=== PATIENT | female | born 1985 | race Caucasian/White ===

== ENCOUNTER 2016-04-30 13:29 | Inpatient (IN) | payer OTHER ==
[2016-04-30] MEDS ORDERED: SODIUM CHLORIDE 0.9% 1,000 ML IV STA (14:01)
[2016-04-30] MEDS ORDERED: MORPHINE SULFATE 4 MG/ML SYRINGE IVP STA (14:24)
[2016-04-30 14:29] LABS: Anisocytosis Slight; Basophils # (A) 0.1 k/uL (0-0.2); Basophils % (A) 1 %; CH 29.2; CHCM 32.8; Eosinophils # (A) 0.3 k/uL (0-0.7); Eosinophils % (A) 4 %; HCT 29.8 % (34.0-46.0); HDW 2.75; HGB 9.7 gm/dL (11.4-16.0); Luc # (Auto) 0.15; Luc % (Auto) 2; Lymphocytes # (A) 4.1 k/uL (1.0-4.8); Lymphocytes % (A) 48 %; MCHC 32.5 g/dL (31.0-37.0); MCV 89.3 fL (80.0-100.0); Mean Platelet Volume 7.2; Monocytes # (A) 0.6 k/uL (0-1.0); Monocytes % (A) 7 %; Neutrophils # (A) 3.3 k/uL (1.3-7.7); Neutrophils % (A) 39 %; RBC 3.34 m/uL (3.80-5.40); RDW 16.3 % (11.5-15.5); WBC 8.4 k/uL (3.8-10.6); WBC (Perox) 7.94
[2016-04-30 14:32] LABS: Appearance,Urine Clear (Clear); Bilirubin,Urine Negative (Negative); Glucose,Urine (UA) Negative (Negative); Ketones,Urine Negative (Negative); Leukocyte Esterase,Urine Negative (Negative); Nitrite,Urine Negative (Negative); Protein,Urine Negative (Negative); Specific Gravity,Urine 1.015 (1.001-1.035); UA Billing (MACRO vs. MICRO) CHEM; Urobilinogen,Urine <2.0 mg/dL (<2.0)
[2016-04-30 14:43] LABS: ALT 24 U/L (9-52); AST 11 U/L (14-36); Alkaline Phosphatase 62 U/L (38-126); Amylase 80 U/L (30-110); Anion Gap 9 mmol/L; Blood Urea Nitrogen 17 mg/dL (7-17); Carbon Dioxide 16 mmol/L (22-30); Chloride 118 mmol/L (98-107); Glucose 63 mg/dL (74-99); Non-African American GFR(MDRD) >60 (>60 ml/min/1.73 sqM); Sodium 143 mmol/L (137-145); Total Bilirubin 0.2 mg/dL (0.2-1.3); Total Protein 4.6 g/dL (6.3-8.2)
[2016-04-30 14:53] LABS: Calcium 5.8 mg/dL (8.4-10.2)
[2016-04-30 14:54] LABS: Potassium 2.9 mmol/L (3.5-5.1)
[2016-04-30] MEDS ORDERED: CALCIUM CARBONATE 500 MG CHEWABLE PO STA (15:24)
--- NOTE | 2016-04-30 15:24 | ED ---
Abdominal Pain HPI - General Chief Complaint: Abdominal Pain Stated Complaint: Abd Pain Time Seen by Provider: 04/30/16 14:00 Source: patient, EMS, RN notes reviewed Mode of arrival: EMS Limitations: no limitations - History of Present Illness Initial Comments: 31-year-old female presents emergency Department chief complaint abdominal pain , rectal bleeding, nausea. Patient states she has been diagnosed at age 15 of ulcerative colitis/Crohn's. Patient sees Dr. Chaparro. She's had increased rectal bleeding. She states she is unable to eat due to nausea and pain. Patient states that she's been nasal call but states that her insurance does not cover it. She states she takes an antacid at this time. Patient denies any dysuria hematuria. Patient denies any fever, chills. Denies any chance . Patient states she states that she feels very fatigued. - Related Data Home Medications Medication Instructions Recorded Confirmed Sertraline HCl [Zoloft] 200 mg PO DAILY 09/24/13 04/30/16 ALPRAZolam [Xanax] 2 mg PO TID PRN 08/02/14 04/30/16 Levothyroxine Sodium [Synthroid] 125 mcg PO QAM 06/05/15 04/30/16 Lisinopril-Hctz 20-25 mg 1 tab PO BID 12/26/15 04/30/16 [Zestoretic 20-25] Ranitidine HCl [Zantac] 150 mg PO BID 12/26/15 04/30/16 Simvastatin [Zocor] 20 mg PO HS 12/26/15 04/30/16 Beclomethasone Dipropionate [Qvar 2 puff INHALATION RT-BID 04/30/16 04/30/16 80 mcg] Divalproex Sodium [Depakote] 1,000 mg PO BID 04/30/16 04/30/16 Gabapentin 600 mg PO TID 04/30/16 04/30/16 Medroxyprogesterone Acetate 150 mg IM Q90D 04/30/16 04/30/16 [Depo-Provera] Methocarbamol [Robaxin-750] 750 mg PO TID 04/30/16 04/30/16 Omeprazole 20 mg PO DAILY 04/30/16 04/30/16 Prochlorperazine [Compazine] 10 mg PO Q8H 04/30/16 04/30/16 QUEtiapine [SEROquel] 100 mg PO QAM 04/30/16 04/30/16 QUEtiapine [SEROquel] 400 mg PO HS 04/30/16 04/30/16 Allergies Allergy/AdvReac Type Severity Reaction Status Date / Time acetaminophen Allergy Unknown Verified 04/30/16 14:07 azithromycin [From Zithromax] Allergy Unknown Verified 04/30/16 14:07 Childhood baclofen Allergy Rash/Hives Verified 04/30/16 14:07 butorphanol tartrate Allergy Rash/Hives Verified 04/30/16 14:07 [From Stadol] dicyclomine [From Bentyl] Allergy Unknown Verified 04/30/16 14:07 dicyclomine HCl [From Bentyl] Allergy Hallucinati Verified 04/30/16 14:07 ons granisetron HCl [From Kytril] Allergy Anaphylaxis Verified 04/30/16 14:07 ketorolac tromethamine Allergy Rash/Hives Verified 04/30/16 14:07 [From Toradol] methocarbamol [From Robaxin] Allergy Unknown Verified 04/30/16 14:07 morphine Allergy Rash/Hives Verified 04/30/16 14:07 sulfamethoxazole Allergy Rash/Hives Verified 04/30/16 14:07 [From Bactrim] trimethoprim [From Bactrim] Allergy Rash/Hives Verified 04/30/16 14:07 codeine AdvReac Vomiting & Verified 04/30/16 14:07 Headache meperidine HCl [From Demerol] AdvReac Swelling Verified 04/30/16 14:07 methylprednisolone AdvReac Vomiting & Verified 04/30/16 14:07 [From Medrol] Headache Review of Systems ROS Statement: Those systems with pertinent positive or pertinent negative responses have been documented in the HPI. ROS Other: All systems not noted in ROS Statement are negative. Past Medical History Past Medical History: Asthma, Fibromyalgia, GERD/Reflux, Thyroid Disorder Additional Past Medical History / Comment(s): crohns disease, diverticulosis, ibs, carpal tunnel, anemia, chronic back pain , migraines, pinch nervers History of Any Multi-Drug Resistant Organisms: None Reported Past Surgical History: Adenoidectomy, Appendectomy, Cholecystectomy, Tonsillectomy Additional Past Surgical History / Comment(s): crohns, ulcerative colitis, migraines, carpal tunnel, pancreatitis, cyatica, right ankle Past Anesthesia/Blood Transfusion Reactions: No Reported Reaction Past Psychological History: Anxiety, Depression Additional Psychological History / Comment(s): om medica Smoking Status: Current every day smoker Past Alcohol Use History: None Reported, Rare Past Drug Use History: None Reported - Past Family History Mother Family Medical History: Thyroid Disorder Additional Family Medical History / Comment(s): Extensive tattoos throughout body General Exam Limitations: no limitations General appearance: alert, in no apparent distress Head exam: Present: atraumatic, normocephalic, normal inspection Respiratory exam: Present: normal lung sounds bilaterally. Absent: respiratory distress, wheezes, rales, rhonchi, stridor Cardiovascular Exam: Present: regular rate, normal rhythm, normal heart sounds. Absent: systolic murmur, diastolic murmur, rubs, gallop, clicks GI/Abdominal exam: Present: soft, tenderness (Diffuse mild to moderate with greatest in his mid abdomen ), normal bowel sounds. Absent: distended, guarding , rebound, rigid Back exam: Absent: CVA tenderness (R), CVA tenderness (L) Course Vital Signs 04/30/16 13:32 Temperature 97.5 F L Pulse Rate 92 Respiratory 20 Rate Blood Pressure 128/86 O2 Sat by Pulse 96 Oximetry Medical Decision Making - Medical Decision Making 4-year-old female presented for abdominal pain and rectal bleeding. Patient has had a drop her hemoglobin and is anemic. Patient is hypokalemic edition. Patient corrected calcium is 7.4 patient be brought in for IV hydration, GI consult for rectal bleeding exacerbation of Crohn's. - Lab Data Result diagrams: 04/30/16 13:50 04/30/16 13:50 Lab Results 04/30/16 04/30/16 04/30/16 Range/Units 13:50 13:50 14:15 WBC 8.4 (3.8-10.6) k/uL RBC 3.34 L (3.80-5.40) m/uL Hgb 9.7 L (11.4-16.0) gm/dL Hct 29.8 L (34.0-46.0) % MCV 89.3 (80.0-100.0) fL MCH 29.0 (25.0-35.0) pg MCHC 32.5 (31.0-37.0) g/dL RDW 16.3 H (11.5-15.5) % Plt Count 270 (150-450) k/uL Neutrophils % 39 % Lymphocytes % 48 % Monocytes % 7 % Eosinophils % 4 % Basophils % 1 % Neutrophils # 3.3 (1.3-7.7) k/uL Lymphocytes # 4.1 (1.0-4.8) k/uL Monocytes # 0.6 (0-1.0) k/uL Eosinophils # 0.3 (0-0.7) k/uL Basophils # 0.1 (0-0.2) k/uL Anisocytosis Slight Sodium 143 (137-145) mmol/L Potassium 2.9 L* (3.5-5.1) mmol/L Chloride 118 H (98-107) mmol/L Carbon Dioxide 16 L (22-30) mmol/L Anion Gap 9 mmol/L BUN 17 (7-17) mg/dL Creatinine 0.68 (0.52-1.04) mg/dL Est GFR (MDRD) Af Amer >60 (>60 ml/min/1.73 sqM) Est GFR (MDRD) Non-Af >60 (>60 ml/min/1.73 sqM) Glucose 63 L (74-99) mg/dL Calcium 5.8 L* (8.4-10.2) mg/dL Total Bilirubin 0.2 (0.2-1.3) mg/dL AST 11 L (14-36) U/L ALT 24 (9-52) U/L Alkaline Phosphatase 62 (38-126) U/L Total Protein 4.6 L (6.3-8.2) g/dL Albumin 2.2 L (3.5-5.0) g/dL Amylase 80 (30-110) U/L Lipase 82 (23-300) U/L Urine Color Urine Appearance (Clear) Urine pH (5.0-8.0) Ur Specific [place] (1.001-1.035) Urine Protein (Negative) Urine Glucose (UA) (Negative) Urine Ketones (Negative) Urine Blood (Negative) Urine Nitrate (Negative) Urine Bilirubin (Negative) Urine Urobilinogen (<2.0) mg/dL Ur Leukocyte Esterase (Negative) Urine HCG, Qual Not Detected (Not Detectd) 04/30/16 Range/Units 14:15 WBC (3.8-10.6) k/uL RBC (3.80-5.40) m/uL Hgb (11.4-16.0) gm/dL Hct (34.0-46.0) % MCV (80.0-100.0) fL MCH (25.0-35.0) pg MCHC (31.0-37.0) g/dL RDW (11.5-15.5) % Plt Count (150-450) k/uL Neutrophils % % Lymphocytes % % Monocytes % % Eosinophils % % Basophils % % Neutrophils # (1.3-7.7) k/uL Lymphocytes # (1.0-4.8) k/uL Monocytes # (0-1.0) k/uL Eosinophils # (0-0.7) k/uL Basophils # (0-0.2) k/uL Anisocytosis Sodium (137-145) mmol/L Potassium (3.5-5.1) mmol/L Chloride (98-107) mmol/L Carbon Dioxide (22-30) mmol/L Anion Gap mmol/L BUN (7-17) mg/dL Creatinine (0.52-1.04) mg/dL Est GFR (MDRD) Af Amer (>60 ml/min/1.73 sqM) Est GFR (MDRD) Non-Af (>60 ml/min/1.73 sqM) Glucose (74-99) mg/dL Calcium (8.4-10.2) mg/dL Total Bilirubin (0.2-1.3) mg/dL AST (14-36) U/L ALT (9-52) U/L Alkaline Phosphatase (38-126) U/L Total Protein (6.3-8.2) g/dL Albumin (3.5-5.0) g/dL Amylase (30-110) U/L Lipase (23-300) U/L Urine Color Light Yellow Urine Appearance Clear (Clear) Urine pH 6.0 (5.0-8.0) Ur Specific [place] 1.015 (1.001-1.035) Urine Protein Negative (Negative) Urine Glucose (UA) Negative (Negative) Urine Ketones Negative (Negative) Urine Blood Negative (Negative) Urine Nitrate Negative (Negative) Urine Bilirubin Negative (Negative) Urine Urobilinogen <2.0 (<2.0) mg/dL Ur Leukocyte Esterase Negative (Negative) Urine HCG, Qual (Not Detectd) Disposition Clinical Impression: Exacerbation of Crohn's disease, Rectal bleeding, Anemia, Dehydration, Hypokalemia, Hypocalcemia Disposition: ADMITTED IP TO THIS HOSP Referrals: Joan Meeks MD [Primary Care Provider] - 1-2 days
[2016-04-30] MEDS ORDERED: NALOXONE 0.4 MG/ML 1 ML VIAL IV PRN (15:25)
[2016-04-30] MEDS ORDERED: ONDANSETRON 4 MG/2 ML VIAL IVP PRN (15:25)
[2016-04-30] MEDS ORDERED: SODIUM CHLORIDE 0.9% 1,000 ML IV SCH (15:30)
[2016-04-30] MEDS ORDERED: POTASSIUM CHLORIDE ER 20 MEQ TAB.ER PO STA (15:37)
[2016-04-30] MEDS: HYDROmorphone 1 MG/ML 1 ML SYRINGE IV PRN ×3 (16:00→22:04)
--- NOTE | 2016-04-30 16:11 | XR ---
EXAMINATION TYPE: XR KUB DATE OF EXAM: 04/30/2016 3:55 PM COMPARISON: 03/13/2016 INDICATION: Abdomen pain nausea vomiting diverticulitis and Crohn's TECHNIQUE: Single view abdomen supine and upright views FINDINGS: There is a normal bowel gas pattern. No free air is under the diaphragm. No differential air-fluid le vels are present. Some fecal debris is within the colon. Psoas margins are normal. Cholecystectomy clips are present. No organomegaly is present. IMPRESSION: 1. Unremarkable Abdomen
[2016-04-30] MEDS ORDERED: NON-FORMULARY DRUG (Medroxyprogesterone Acetate [Depo-Provera] 150 MG) IM SCH (16:45)
[2016-04-30] MEDS: ALPRAZolam 0.5 MG TAB PO PRN (17:14)
[2016-04-30] MEDS: LACTATED RINGERS 1,000 ML IV SCH (17:50)
[2016-04-30] MEDS: predniSONE 20 MG TAB PO SCH (18:17)
[2016-04-30 20:14] LABS: Anisocytosis Slight; Basophils % (A) 0 %; CH 29.2; CHCM 31.9; Eosinophils # (A) 0.3 k/uL (0-0.7); Eosinophils % (A) 4 %; HCT 30.4 % (34.0-46.0); HGB 9.8 gm/dL (11.4-16.0); Luc % (Auto) 2; Lymphocytes # (A) 3.5 k/uL (1.0-4.8); Lymphocytes % (A) 40 %; MCH 29.6 pg (25.0-35.0); MCHC 32.2 g/dL (31.0-37.0); MCV 91.8 fL (80.0-100.0); Mean Platelet Volume 7.5; Monocytes # (A) 0.5 k/uL (0-1.0); Monocytes % (A) 5 %; Neutrophils # (A) 4.3 k/uL (1.3-7.7); Neutrophils % (A) 49 %; RBC 3.32 m/uL (3.80-5.40); RDW 16.3 % (11.5-15.5); WBC 8.9 k/uL (3.8-10.6); WBC (Perox) 9.47
[2016-04-30] MEDS: BUDESONIDE 1 MG/2 ML NEBU INHALATION SCH (20:43)
[2016-04-30 20:56] VITALS: BMI 35.3
[2016-04-30] MEDS: LISINOPRIL-HCTZ 20-25 MG 1 EACH TAB PO SCH (20:57)
[2016-04-30] MEDS: DIVALPROEX 500 MG TABLET.DR PO SCH (20:57)
[2016-04-30] MEDS: GABAPENTIN 300 MG CAP PO SCH (20:57)
[2016-04-30] MEDS ORDERED: QUEtiapine 400 MG TAB PO SCH (21:00)
[2016-04-30] MEDS ORDERED: ATORVASTATIN 10 MG TAB PO SCH (21:00)
[2016-04-30] MEDS ORDERED: ZOLPIDEM 10 MG TAB PO SCH (21:00)
[2016-04-30] MEDS ORDERED: predniSONE 20 MG TAB PO SCH (21:00)
[2016-04-30] MEDS ORDERED: METHOCARBAMOL 750 MG TAB PO SCH (22:00)
[2016-05-01 00:08] LABS: Anisocytosis Slight; Basophils % (A) 0 %; CH 29.1; CHCM 32.4; Eosinophils # (A) 0.1 k/uL (0-0.7); Eosinophils % (A) 1 %; HCT 30.6 % (34.0-46.0); HDW 2.78; HGB 10.1 gm/dL (11.4-16.0); Luc # (Auto) 0.11; Luc % (Auto) 1; Lymphocytes # (A) 1.8 k/uL (1.0-4.8); Lymphocytes % (A) 20 %; MCH 29.8 pg (25.0-35.0); MCHC 33.1 g/dL (31.0-37.0); Mean Platelet Volume 7.9; Monocytes # (A) 0.3 k/uL (0-1.0); Monocytes % (A) 3 %; Neutrophils # (A) 6.6 k/uL (1.3-7.7); Neutrophils % (A) 74 %; RDW 16.3 % (11.5-15.5); WBC 8.9 k/uL (3.8-10.6)
[2016-05-01] MEDS: HYDROmorphone 1 MG/ML 1 ML SYRINGE IV PRN ×5 (01:09→14:54)
[2016-05-01] MEDS: LACTATED RINGERS 1,000 ML IV SCH (03:19)
[2016-05-01 03:28] VITALS: BP 120/70
[2016-05-01] MEDS ORDERED: LEVOTHYROXINE 125 MCG TAB PO SCH (06:30)
--- NOTE | 2016-05-01 07:31 | HP ---
DATE OF ADMISSION: Patient is a 31-year-old ( ) with known history of Crohn disease, which was diagnosed when she was 15, came in with complaints of abdominal pain, diffuse, mostly in the upper quadrants which is burning and sharp in nature and crampy in the lower quadrants. Patient is complaining of 10/10 pain along with rectal bleeding. The patient used to use Asacol or Pentasa, one of the sulfa-based immunosuppressant medications for Crohn disease or ulcerative colitis. Follows with Dr. Stiles, ran out of these medications because of the change of insurance stopped covering these medications because of which she says she has not been taking these medications. She is now complaining of nausea. Denied any vomiting. Patient denied any dysuria or hematuria. Patient says she feels tired and fatigued and there was a concern about exacerbation of Crohn's because of which patient is admitted and starting on 20 mg p.o. b.i.d. of steroids and obtaining an ESR and CRP and Gastroenterology will be consulted. Electrolyte abnormalities including low potassium will be corrected. ROS: All other systems were reviewed and were negative. Home medications include: 1. Sertraline. 2. Alprazolam. 3. Levothyroxine. 4. Lisinopril hydrochlorothiazide. 5. Ranitidine. 6. Simvastatin. 7. Beclomethasone. 8. Depakote. 9. Medroxyprogesterone. 10. Methocarbamol. 11. Omeprazole. 12. Compazine. 13. Seroquel. ALLERGIES: Patient has multiple allergies including ACETAMINOPHEN, AZITHROMYCIN, BACLOFEN, BUTORPHANOL, DICYCLOMINE, KETOROLAC, MORPHINE, BACTRIM, CODEINE and MEPERIDINE, although patient is able to tolerate Dilaudid in spite of her multiple allergies to other opiates. Past medical history is significant for asthma, fibromyalgia, gastroesophageal reflux disease, Crohn disease, hypothyroidism, migraines, adenoidectomy, appendectomy, cholecystectomy, tonsillectomy, anxiety, depression. Patient continues to smoke 1 pack per day. Denied any alcohol abuse or drug abuse. FAMILY HISTORY: Mother had hypothyroidism. PHYSICAL EXAMINATION: VITAL SIGNS: Temperature 98.1 pulse of 86, respiratory rate of 24, blood pressure is 90/52, saturating at 96% on room air. PHYSICAL EXAMINATION: GENERAL: The patient is alert and oriented x3, not in any acute distress. Well developed, well nourished. HEENT: Pupils are round and equally reacting to light. EOMI. No scleral icterus. No conjunctival pallor. Normocephalic, atraumatic. No pharyngeal erythema. No thyromegaly. CARDIOVASCULAR: S1 and S2 present. No murmurs, rubs, or gallops. PULMONARY: Chest is clear to auscultation, no wheezing or crackles. ABDOMEN: Minimal subjective tenderness was appreciated, although patient's abdomen is soft. MUSCULOSKELETAL: No joint swelling or deformity. EXTREMITIES: No cyanosis, clubbing, or pedal edema. NEUROLOGICAL: Gross neurological examination did not reveal any focal deficits. SKIN: No rashes. LABORATORY DATA: CBC, CMP are abnormal for low hemoglobin of 9.8, appears to have normocytic anemia, anemia of chronic disease. Potassium of 2.9, chloride of 118, because of which her IV fluids were changed lactated Ringers. Patient ( ) anion gap, low bicarbonate of 16, although patient ( ) have any anion gap low bicarbonate can be from prerenal ( ) although patient denied significant diarrhea except for occasional GI bleed, small edith red blood and lipase is essentially negative is negative. UA is negative. CRP and ESR will be obtained. Abdominal x-ray was done. Patient has multiple CT in the past. Abdominal x-ray was essentially within normal limits. ASSESSMENT AND PLAN: 1. Abdominal pain, consideration is Crohn's exacerbation. ESR and CRP will be obtained. The patient definitely has narcotic seeking behavior. If ESR and CRP are normal, the change of this being Crohn's exacerbation is low anyways. Patient will be started on systemic steroids 20 b.i.d. of prednisone for Crohn's and Gastroenterology will be consulted. 2. History of migraine headaches. Continue with home medications. 3. Chronic pain syndrome. 4. Depression. 5. Continued nicotine use. Counseling was provided. 6. Hypertension. The patient's blood pressures are low because of which we will hold off on PIPO inhibitor at this time. 7. History of gastrointestinal bleed as per the patient. Patient's RDW is close to normal, 16.3, not sure patient actually had a gastrointestinal bleed or not. Stool for occult blood is not an accurate test. Will continue to monitor her. 8. Hypothyroidism. PLAN: Systemic steroids, IV fluids in the form of lactated Ringer's because of elevated chloride, replace potassium. Repeat electrolytes and basic metabolic profile tomorrow. Gastroenterology consult. Patient's primary care physician is Dr. Joan Meeks. I have very high suspicion of malingering or narcotic seeking behavior in her. MTDD
[2016-05-01] MEDS: BUDESONIDE 1 MG/2 ML NEBU INHALATION SCH (07:59)
[2016-05-01 08:23] VITALS: PULSE 81; RESP 20; TEMP 97.7
[2016-05-01] MEDS: ALPRAZolam 0.5 MG TAB PO PRN ×2 (08:55→14:56)
[2016-05-01] MEDS ORDERED: NON-FORMULARY DRUG (Omeprazole [Omeprazole] 20 MG) PO SCH (09:00)
[2016-05-01] MEDS ORDERED: QUEtiapine 100 MG TAB PO SCH (09:00)
[2016-05-01] MEDS ORDERED: PANTOPRAZOLE 40 MG/10 ML VIAL IV SCH (09:00)
[2016-05-01] MEDS ORDERED: SERTRALINE 100 MG TAB PO SCH (09:00)
[2016-05-01] MEDS: DIVALPROEX 500 MG TABLET.DR PO SCH (09:02)
[2016-05-01] MEDS: LISINOPRIL-HCTZ 20-25 MG 1 EACH TAB PO SCH (09:03)
[2016-05-01] MEDS: GABAPENTIN 300 MG CAP PO SCH (09:03)
[2016-05-01] MEDS: predniSONE 20 MG TAB PO SCH (09:03)
[2016-05-01 09:04] LABS: ALT 30 U/L (9-52); AST 14 U/L (14-36); Alkaline Phosphatase 66 U/L (38-126); Anion Gap 10 mmol/L; Blood Urea Nitrogen 11 mg/dL (7-17); Carbon Dioxide 24 mmol/L (22-30); Chloride 105 mmol/L (98-107); Glucose 96 mg/dL (74-99); Magnesium 1.7 mg/dL (1.6-2.3); Non-African American GFR(MDRD) >60 (>60 ml/min/1.73 sqM); Phosphorous 4.1 mg/dL (2.5-4.5); Potassium 4.3 mmol/L (3.5-5.1); Sodium 139 mmol/L (137-145); Total Bilirubin 0.5 mg/dL (0.2-1.3); Total Protein 6.4 g/dL (6.3-8.2)
--- NOTE | 2016-05-01 10:36 | P.CONS ---
History of Present Illness - Reason for Consult Consult date: 05/01/16 Exacerbation of Crohn's Requesting physician: Ole Magana - History of Present Illness 31-year-old female with a history of Crohn's ileitis maintained on Asacol/ Entocort and Remicade in the past diagnosed at 15 years of age at [facility] by Dr. Sanders with a past medical history of chronic back pain, fibromyalgia, anxiety, depression, IBS, nicotine cigarette dependency, and hypothyroidism. Presents with intractable abdominal pain that started 6 days ago with loose bowel movements blood tinged. Hemoccult stool positive. One bowel movement in the last 24 hours without blood. CRP and sed rate with within normal limits. KUB unremarkable abdomen. Patient ran out of her Crohn' s medications due to insurance changes. No fever or chills. No emesis just intermittent nausea and abdominal pain. Hemoglobin 10.1. White count 8.9. Potassium 2.9 improved to 4.3 today. Review of Systems Constitutional: Denies fever, chills, sweats, weight gain, or loss. HEENT: Negative for migraines, blurred vision or loss, earaches, drainage, tinnitus, oral mucosal lesions, dysphagia, or odynophagia. CARDIAC: Negative for chest pain, arrhythmias, or palpitation. RESPIRATORY: Nicotine cigarette dependency. Asthma. Negative for shortness of breath, hemoptysis, cough, or sputum production. GI: See HPI for pertinent findings. : Negative for hematuria, urgency, frequency, polyuria, or dysuria. GYNc: Denies possibility of . Negative vaginal discharge. MUSCULOSKELETAL: Fibromyalgia. Chronic back pain. NEUROLOGIC: Seizure disorder. Negative for stroke or TIA. ENDOCRINE: Negative for thyroid problems. SKIN: Negative for rash or itching. PSYCHIATRIC: Depression and anxiety. All systems: negative (See HPI) Past Medical History Past Medical History: Asthma, Fibromyalgia, GERD/Reflux, Seizure Disorder, Thyroid Disorder Additional Past Medical History / Comment(s): crohns disease, diverticulosis, ibs, carpal tunnel, anemia, chronic back pain , migraines, pinched nerves History of Any Multi-Drug Resistant Organisms: None Reported Past Surgical History: Adenoidectomy, Appendectomy, Cholecystectomy, Orthopedic Surgery, Tonsillectomy Additional Past Surgical History / Comment(s): EGD/colonoscopy, right ankle surgery Past Anesthesia/Blood Transfusion Reactions: No Reported Reaction Past Psychological History: Anxiety, Depression Additional Psychological History / Comment(s): on medica Smoking Status: Current every day smoker Past Alcohol Use History: None Reported Past Drug Use History: None Reported - Past Family History Father Family Medical History: Diabetes Mellitus, Hyperlipidemia Mother Family Medical History: Cancer, CVA/TIA, Deep Vein Thrombosis (DVT), Osteoarthritis (OA), Thyroid Disorder Additional Family Medical History / Comment(s): Extensive tattoos throughout body Medications and Allergies Home Medications Medication Instructions Recorded Confirmed Type Sertraline HCl [Zoloft] 200 mg PO DAILY 09/24/13 04/30/16 History ALPRAZolam [Xanax] 2 mg PO TID PRN 08/02/14 04/30/16 History Levothyroxine Sodium [Synthroid] 125 mcg PO QAM 06/05/15 04/30/16 History Lisinopril-Hctz 20-25 mg 1 tab PO BID 12/26/15 04/30/16 History [Zestoretic 20-25] Ranitidine HCl [Zantac] 150 mg PO BID 12/26/15 04/30/16 History Simvastatin [Zocor] 20 mg PO HS 12/26/15 04/30/16 History Beclomethasone Dipropionate [Qvar 2 puff INHALATION RT-BID 04/30/16 04/30/16 History 80 mcg] Divalproex Sodium [Depakote] 1,000 mg PO BID 04/30/16 04/30/16 History Gabapentin 600 mg PO TID 04/30/16 04/30/16 History Medroxyprogesterone Acetate 150 mg IM Q90D 04/30/16 04/30/16 History [Depo-Provera] Omeprazole 20 mg PO DAILY 04/30/16 04/30/16 History Prochlorperazine [Compazine] 10 mg PO Q8H 04/30/16 04/30/16 History QUEtiapine [SEROquel] 100 mg PO QAM 04/30/16 04/30/16 History QUEtiapine [SEROquel] 400 mg PO HS 04/30/16 04/30/16 History Zolpidem [Ambien] 10 mg PO HS 04/30/16 04/30/16 History Allergies Allergy/AdvReac Type Severity Reaction Status Date / Time acetaminophen Allergy Unknown Verified 04/30/16 14:07 azithromycin [From Zithromax] Allergy Unknown Verified 04/30/16 14:07 Childhood baclofen Allergy Rash/Hives Verified 04/30/16 14:07 butorphanol tartrate Allergy Rash/Hives Verified 04/30/16 14:07 [From Stadol] dicyclomine [From Bentyl] Allergy Unknown Verified 04/30/16 14:07 dicyclomine HCl [From Bentyl] Allergy Hallucinati Verified 04/30/16 14:07 ons granisetron HCl [From Kytril] Allergy Anaphylaxis Verified 04/30/16 14:07 ketorolac tromethamine Allergy Rash/Hives Verified 04/30/16 14:07 [From Toradol] methocarbamol [From Robaxin] Allergy Unknown Verified 04/30/16 14:07 morphine Allergy Rash/Hives Verified 04/30/16 14:07 sulfamethoxazole Allergy Rash/Hives Verified 04/30/16 14:07 [From Bactrim] trimethoprim [From Bactrim] Allergy Rash/Hives Verified 04/30/16 14:07 codeine AdvReac Vomiting & Verified 04/30/16 14:07 Headache meperidine HCl [From Demerol] AdvReac Swelling Verified 04/30/16 14:07 methylprednisolone AdvReac Vomiting & Verified 04/30/16 14:07 [From Medrol] Headache Physical Exam Vitals: Vital Signs Temp Pulse Pulse Pulse Resp BP BP 05/01/16 07:50 97.7 F 81 20 120/70 05/01/16 03:28 98.0 F 87 18 120/70 04/30/16 20:00 98.1 F 80 24 106/64 04/30/16 16:30 98.3 F 83 20 99/64 04/30/16 16:09 97.7 F 86 16 90/52 Pulse Ox 05/01/16 07:50 100 05/01/16 03:28 99 04/30/16 20:00 96 04/30/16 16:30 97 04/30/16 16:09 97 Intake and Output 04/30/16 05/01/16 05/01/16 22:59 06:59 14:59 Intake Total 980 Output Total 850 1400 Balance 130 -1400 Intake: Oral 980 Output: Urine 850 1400 Other: Voiding Method Toilet Weight 99.2 kg General appearance: The patient is alert, oriented, in no acute distress. HET: Head is normocephalic and atraumatic. Pupils are equal and reactive. Oropharynx is clear without lesions. Neck: Supple without lymphadenopathy. Trachea midline. Heart: S1 S2. Regular rate and rhythm. Lungs: No crackles or wheezes are heard. Abdomen: Soft, very mild diffuse midabdominal tenderness, nondistended with bowel sounds. No peritoneal signs. No palpable organomegaly or masses. Extremities: Normal skin color and turgor. No cyanosis, rash, ulceration, clubbing, or edema. Radial and pedal pulses are 2/4 bilaterally. Neurological: No focal deficits. Strength and sensation are grossly intact. Results CBC & Chem 7: 04/30/16 23:52 05/01/16 08:22 Labs: Abnormal Lab Results - Last 24 Hours (Table) 04/30/16 04/30/16 Range/Units 20:01 23:52 RBC 3.32 L 3.40 L (3.80-5.40) m/uL Hgb 9.8 L 10.1 L (11.4-16.0) gm/dL Hct 30.4 L 30.6 L (34.0-46.0) % RDW 16.3 H 16.3 H (11.5-15.5) % Abdominal x-ray: report reviewed (Reviewed by Dr. Pan) Assessment and Plan (1) Abdominal pain Narrative/Plan: 31-year-old female with a history of long-standing Crohn's ileitis, IBS, fibromyalgia presents with intractable nausea abdominal pain with loose bowel movements and heme positive stool. Currently having on average one bowel movement a day without edith blood. Suspect exacerbation of irritable bowel possible gastroenteritis. Exacerbation of Crohn's ileitis is felt to be less likely but not entirely excluded. Status: Acute (2) History of Crohn's disease Status: Acute Plan: 1. Delzicol/Asacol 800 mg 3 times a day; . 2. Hold steroids at this time. 3. Advance diet. 4. Will follow with you. Thank you for this kind referral and the opportunity to participate in the care of your patient. This consultation was discussed with Dr. Pan. The impression and plan of care have been directed as dictated.
[2016-05-01] MEDS ORDERED: MESALAMINE 400 MG CAPSULE.DR PO SCH (10:45)
--- NOTE | 2016-05-01 15:19 | DS ---
DATE OF ADMISSION: 04/30/2016 DATE OF DISCHARGE: Patient is a 31-year-old who came in with complaints of abdominal pain and blood in the stools. All the FOBT is positive. Patient apparently does not appear to have any gastrointestinal bleed. GI evaluated the patient and patient had one normal bowel movement today. Patient's ESR and CRP are essentially within normal limits. I do not really believe patient has any Crohn's colitis at this point of time and electrolytes were corrected and patient will be discharged today. Patient has narcotic seeking behavior. Patient most probably is malingering. She says that she does not have any oxycodone at home and requesting oxycodone script. After extensive counseling about narcotic use, I do not believe oxycodone is appropriate for her. Oxycodone script will not be provided. Patient she says she changed insurance because of which mesalamine is not covered. That is being taken care of by gastroenterology who evaluated the patient. Patient is also on high dose of Xanax, which is not recommended. I will let her primary care physician address that. Patient is being discharged on 400 p.o. t.i.d. of mesalamine. Patient was seen and examined on the day of discharge. Vitals are stable. PHYSICAL EXAMINATION: GENERAL: The patient is alert and oriented x3, not in any acute distress. Well developed, well nourished. HEENT: Pupils are round and equally reacting to light. EOMI. No scleral icterus. No conjunctival pallor. Normocephalic, atraumatic. No pharyngeal erythema. No thyromegaly. CARDIOVASCULAR: S1 and S2 present. No murmurs, rubs, or gallops. PULMONARY: Chest is clear to auscultation, no wheezing or crackles. ABDOMEN: Soft, nontender, nondistended, normoactive bowel sounds. No palpable organomegaly. MUSCULOSKELETAL: No joint swelling or deformity. EXTREMITIES: No cyanosis, clubbing, or pedal edema. NEUROLOGICAL: Gross neurological examination did not reveal any focal deficits. SKIN: No rashes. All the electrolyte abnormalities were corrected. ASSESSMENT AND PLAN: 1. Abdominal pain, most probably secondary to malingering and narcotic seeking behavior. My suspicion is low for Crohn's exacerbation. 2. History of migraine headaches. 3. Chronic pain syndrome. 4. Depression. 5. Hypertension. I do not believe patient will require antihypertensives. Patient's blood pressure was low when she came in. It was 90/52. I extensively counseled regarding the appropriate way to measure the blood pressure at home and take the measurements to her primary care doctor. 6. Gastrointestinal bleed. My suspicion is low. Her hemoglobin is stable. There is no evidence of bleeding here during the hospitalization. My suspicion is she is still malingering regarding this as well. 7. Hypothyroidism. Patient will follow with Dr. Delvin Pan in one week, her primary care physician Dr. Joan Meeks in about 3 to 7 days. 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 Apparently Dr. Louise used to manage her pain. I spent greater than 35 minutes in total discharge process.
[2016-05-02] MEDS ORDERED: BALSALAZIDE DISODIUM 750 MG CAPSULE PO SCH (09:00)
[2016-05-02] MEDS ORDERED: PANTOPRAZOLE 40 MG TABLET PO SCH (09:00)
== END 2016-05-01 15:13 | disposition home or self-care (01) | DRG 392 ==
LOC: EC 13:29 → 6PED 15:28
PROVIDERS: ADMIT Hospitalist; ATTEND Hospitalist
DX: R10.84 Generalized abdominal pain (principal); E83.51 Hypocalcemia; E03.9 Hypothyroidism, unspecified; D64.9 Anemia, unspecified; E86.0 Dehydration; E87.6 Hypokalemia; F17.200 Nicotine dependence, unspecified, uncomplicated; F32.9 Major depressive disorder, single episode, unspecified; G40.909 Epilepsy, unspecified, not intractable, without status epilepticus; G89.4 Chronic pain syndrome; K21.9 Gastro-esophageal reflux disease without esophagitis; M79.7 Fibromyalgia; Z76.5 Malingerer [conscious simulation]; Z79.899 Other long term (current) drug therapy; J45.909 Unspecified asthma, uncomplicated
CPT/HCPCS: 36415; 74000; 80053; 81003; 81025; 82150; 82272; 83690; 83735; 84100; 85025; 85652; 86140; 86850; 86900; 86901; 96361; 96374; 99285

== ENCOUNTER 2016-06-23 21:14 | Emergency (ER) | payer OTHER ==
[2016-06-23 21:58] LABS: Appearance,Urine Clear (Clear); Bilirubin,Urine Negative (Negative); Glucose,Urine (UA) Negative (Negative); Ketones,Urine Negative (Negative); Leukocyte Esterase,Urine Negative (Negative); Nitrite,Urine Negative (Negative); PH, Urine 6.5 (5.0-8.0); Protein,Urine Negative (Negative); Specific Gravity,Urine 1.008 (1.001-1.035); UA Billing (MACRO vs. MICRO) CHEM; Urobilinogen,Urine <2.0 mg/dL (<2.0)
--- NOTE | 2016-06-23 22:28 | ED ---
Abdominal Pain HPI - General Chief Complaint: Abdominal Pain Stated Complaint: Abdominal Pain Time Seen by Provider: 06/23/16 21:18 Source: patient, EMS Mode of arrival: EMS Limitations: no limitations - History of Present Illness Initial Comments: Patient is a 31-year-old woman who presents with left lower quadrant, left upper quadrant and epigastric abdominal pain is been going on for number days. The patient has seen her physician for this and they were concerned of possibility of kidney stone. The patient was told that she had some blood in her urine. In addition, patient did have a soft bowel movement and she thought that she may have seen some blood there. The patient did receive some analgesic from EMS and states that the pain has improved. The patient denies fever or chills. No chest or back pain. No pain to the legs. No vomiting. MD Complaint: abdominal pain -: days(s) Location: LUQ, LLQ, epigastric Radiation: none Migration to: no migration Severity: severe Quality: stabbing, aching Consistency: constant Improves With: nothing Worsens With: nothing Associated Symptoms: hematochezia, hematuria - Related Data Home Medications Medication Instructions Recorded Confirmed Sertraline HCl [Zoloft] 200 mg PO DAILY 09/24/13 06/23/16 ALPRAZolam [Xanax] 2 mg PO TID PRN 08/02/14 06/23/16 Levothyroxine Sodium [Synthroid] 125 mcg PO QAM 06/05/15 06/23/16 Ranitidine HCl [Zantac] 150 mg PO BID 12/26/15 06/23/16 Simvastatin [Zocor] 20 mg PO HS 12/26/15 06/23/16 Divalproex Sodium [Depakote] 1,000 mg PO BID 04/30/16 06/23/16 Gabapentin 600 mg PO TID 04/30/16 06/23/16 Medroxyprogesterone Acetate 150 mg IM Q90D 04/30/16 06/23/16 [Depo-Provera] Omeprazole 20 mg PO DAILY 04/30/16 06/23/16 Prochlorperazine [Compazine] 10 mg PO TID 04/30/16 06/23/16 QUEtiapine [SEROquel] 100 mg PO QAM 04/30/16 06/23/16 QUEtiapine [SEROquel] 400 mg PO HS 04/30/16 06/23/16 Zolpidem [Ambien] 10 mg PO HS 04/30/16 06/23/16 Lisinopril-Hctz 20-25 mg 1 tab PO DAILY 06/23/16 06/23/16 [Zestoretic 20-25] Prevacid Unknown Dose 1 tab PO BID 06/23/16 06/23/16 Propranolol HCl [Inderal] 60 mg PO TID 06/23/16 06/23/16 Allergies Allergy/AdvReac Type Severity Reaction Status Date / Time acetaminophen Allergy Unknown Verified 06/23/16 21:43 azithromycin [From Zithromax] Allergy Unknown Verified 06/23/16 21:43 Childhood baclofen Allergy Rash/Hives Verified 06/23/16 21:43 butorphanol tartrate Allergy Rash/Hives Verified 06/23/16 21:43 [From Stadol] dicyclomine [From Bentyl] Allergy Unknown Verified 06/23/16 21:43 dicyclomine HCl [From Bentyl] Allergy Hallucinati Verified 06/23/16 21:43 ons granisetron HCl [From Kytril] Allergy Anaphylaxis Verified 06/23/16 21:43 ketorolac tromethamine Allergy Rash/Hives Verified 06/23/16 21:43 [From Toradol] methocarbamol [From Robaxin] Allergy Unknown Verified 06/23/16 21:43 morphine Allergy Rash/Hives Verified 06/23/16 21:43 sulfamethoxazole Allergy Rash/Hives Verified 06/23/16 21:43 [From Bactrim] trimethoprim [From Bactrim] Allergy Rash/Hives Verified 06/23/16 21:43 codeine AdvReac Vomiting & Verified 06/23/16 21:43 Headache meperidine HCl [From Demerol] AdvReac Swelling Verified 06/23/16 21:43 methylprednisolone AdvReac Vomiting & Verified 06/23/16 21:43 [From Medrol] Headache Review of Systems ROS Statement: Those systems with pertinent positive or pertinent negative responses have been documented in the HPI. ROS Other: All systems not noted in ROS Statement are negative. Constitutional: Denies: fever, chills Respiratory: Denies: cough, dyspnea Cardiovascular: Denies: chest pain, palpitations, syncope Gastrointestinal: Reports: as per HPI, abdominal pain, diarrhea, hematochezia. Denies: nausea, vomiting, melena Genitourinary: Reports: as per HPI, hematuria. Denies: dysuria, frequency, discharge, abnormal menses Musculoskeletal: Denies: back pain Skin: Denies: rash Neurological: Denies: headache, weakness, numbness Past Medical History Past Medical History: Asthma, Fibromyalgia, GERD/Reflux, Seizure Disorder, Thyroid Disorder Additional Past Medical History / Comment(s): crohns disease, diverticulosis, ibs, carpal tunnel, anemia, chronic back pain , migraines, pinched nerves History of Any Multi-Drug Resistant Organisms: None Reported Past Surgical History: Adenoidectomy, Appendectomy, Cholecystectomy, Orthopedic Surgery, Tonsillectomy Additional Past Surgical History / Comment(s): EGD/colonoscopy, right ankle surgery Past Anesthesia/Blood Transfusion Reactions: No Reported Reaction Past Psychological History: Anxiety, Depression Additional Psychological History / Comment(s): on medica Smoking Status: Current every day smoker Past Alcohol Use History: None Reported Past Drug Use History: None Reported - Past Family History Father Family Medical History: Diabetes Mellitus, Hyperlipidemia Mother Family Medical History: Cancer, CVA/TIA, Deep Vein Thrombosis (DVT), Osteoarthritis (OA), Thyroid Disorder Additional Family Medical History / Comment(s): Extensive tattoos throughout body General Exam Limitations: no limitations General appearance: alert, in no apparent distress Head exam: Present: atraumatic, normocephalic Eye exam: Present: normal appearance. Absent: scleral icterus, conjunctival injection ENT exam: Present: normal oropharynx Neck exam: Present: normal inspection Respiratory exam: Present: normal lung sounds bilaterally. Absent: respiratory distress, wheezes, rales, rhonchi, stridor Cardiovascular Exam: Present: regular rate, normal rhythm, normal heart sounds. Absent: systolic murmur, diastolic murmur, rubs, gallop GI/Abdominal exam: Present: soft, tenderness (There is mild left-sided abdominal tenderness without rebound or guarding), normal bowel sounds. Absent : distended, guarding, rebound, rigid, mass, pulsatile mass, hernia Extremities exam: Present: normal inspection, normal capillary refill. Absent: pedal edema, calf tenderness Back exam: Present: normal inspection. Absent: CVA tenderness (R), CVA tenderness (L) Neurological exam: Present: alert Skin exam: Present: warm, dry, intact, normal color. Absent: rash Course Vital Signs 06/23/16 06/24/16 21:35 00:24 Temperature 98.3 F 97.7 F Pulse Rate 102 H 96 Respiratory 20 18 Rate Blood Pressure 145/72 110/58 O2 Sat by Pulse 96 99 Oximetry - Reevaluation(s) Reevaluation #1: 06/24/16 06:37 The patient had been reevaluated following her studies and the abdomen is nontender, though she did request to have some further medication. I was informed that the patient while awaiting for the medication had taken out her own IV and had left. Medical Decision Making - Lab Data Result diagrams: 06/23/16 22:30 06/23/16 22:30 Lab Results 06/23/16 06/23/16 06/23/16 Range/Units 21:45 21:45 22:30 WBC (3.8-10.6) k/uL RBC (3.80-5.40) m/uL Hgb (11.4-16.0) gm/dL Hct (34.0-46.0) % MCV (80.0-100.0) fL MCH (25.0-35.0) pg MCHC (31.0-37.0) g/dL RDW (11.5-15.5) % Plt Count (150-450) k/uL Neutrophils % % Lymphocytes % % Monocytes % % Eosinophils % % Basophils % % Neutrophils # (1.3-7.7) k/uL Lymphocytes # (1.0-4.8) k/uL Monocytes # (0-1.0) k/uL Eosinophils # (0-0.7) k/uL Basophils # (0-0.2) k/uL Sodium 133 L (137-145) mmol/L Potassium 3.8 (3.5-5.1) mmol/L Chloride 99 (98-107) mmol/L Carbon Dioxide 22 (22-30) mmol/L Anion Gap 12 mmol/L BUN 20 H (7-17) mg/dL Creatinine 1.00 (0.52-1.04) mg/dL Est GFR (MDRD) Af Amer >60 (>60 ml/min/1.73 sqM) Est GFR (MDRD) Non-Af >60 (>60 ml/min/1.73 sqM) Glucose 80 (74-99) mg/dL Plasma Lactic Acid Jeremy (0.7-2.0) mmol/L Calcium 9.1 (8.4-10.2) mg/dL Total Bilirubin 0.4 (0.2-1.3) mg/dL AST 19 (14-36) U/L ALT 31 (9-52) U/L Alkaline Phosphatase 84 (38-126) U/L C-Reactive Protein 5.9 (<10.0) mg/L Total Protein 6.8 (6.3-8.2) g/dL Albumin 3.8 (3.5-5.0) g/dL Amylase 96 (30-110) U/L Lipase 69 (23-300) U/L Urine Color Light Yellow Urine Appearance Clear (Clear) Urine pH 6.5 (5.0-8.0) Ur Specific [place] 1.008 (1.001-1.035) Urine Protein Negative (Negative) Urine Glucose (UA) Negative (Negative) Urine Ketones Negative (Negative) Urine Blood Negative (Negative) Urine Nitrite Negative (Negative) Urine Bilirubin Negative (Negative) Urine Urobilinogen <2.0 (<2.0) mg/dL Ur Leukocyte Esterase Negative (Negative) Urine HCG, Qual Not Detected (Not Detectd) 06/23/16 06/23/16 Range/Units 22:30 22:30 WBC 20.3 H (3.8-10.6) k/uL RBC 3.90 (3.80-5.40) m/uL Hgb 11.7 (11.4-16.0) gm/dL Hct 34.6 (34.0-46.0) % MCV 88.8 (80.0-100.0) fL MCH 30.1 (25.0-35.0) pg MCHC 33.9 (31.0-37.0) g/dL RDW 15.1 (11.5-15.5) % Plt Count 368 (150-450) k/uL Neutrophils % 73 % Lymphocytes % 19 % Monocytes % 4 % Eosinophils % 1 % Basophils % 0 % Neutrophils # 14.8 H (1.3-7.7) k/uL Lymphocytes # 3.9 (1.0-4.8) k/uL Monocytes # 0.8 (0-1.0) k/uL Eosinophils # 0.2 (0-0.7) k/uL Basophils # 0.1 (0-0.2) k/uL Sodium (137-145) mmol/L Potassium (3.5-5.1) mmol/L Chloride (98-107) mmol/L Carbon Dioxide (22-30) mmol/L Anion Gap mmol/L BUN (7-17) mg/dL Creatinine (0.52-1.04) mg/dL Est GFR (MDRD) Af Amer (>60 ml/min/1.73 sqM) Est GFR (MDRD) Non-Af (>60 ml/min/1.73 sqM) Glucose (74-99) mg/dL Plasma Lactic Acid Jeremy 1.6 (0.7-2.0) mmol/L Calcium (8.4-10.2) mg/dL Total Bilirubin (0.2-1.3) mg/dL AST (14-36) U/L ALT (9-52) U/L Alkaline Phosphatase (38-126) U/L C-Reactive Protein (<10.0) mg/L Total Protein (6.3-8.2) g/dL Albumin (3.5-5.0) g/dL Amylase (30-110) U/L Lipase (23-300) U/L Urine Color Urine Appearance (Clear) Urine pH (5.0-8.0) Ur Specific [place] (1.001-1.035) Urine Protein (Negative) Urine Glucose (UA) (Negative) Urine Ketones (Negative) Urine Blood (Negative) Urine Nitrite (Negative) Urine Bilirubin (Negative) Urine Urobilinogen (<2.0) mg/dL Ur Leukocyte Esterase (Negative) Urine HCG, Qual (Not Detectd) Disposition Clinical Impression: Abdominal pain Disposition: HOME SELF-CARE Condition: Fair Instructions: Abdominal Pain (ED) Referrals: Joan Meeks MD [Primary Care Provider] - 1-2 days Ferny Stiles MD [STAFF PHYSICIAN] - 1-2 days
[2016-06-23 22:43] LABS: Basophils # (A) 0.1 k/uL (0-0.2); Basophils % (A) 0 %; CH 30.5; CHCM 34.5; Eosinophils # (A) 0.2 k/uL (0-0.7); Eosinophils % (A) 1 %; HCT 34.6 % (34.0-46.0); HDW 2.91; HGB 11.7 gm/dL (11.4-16.0); Luc # (Auto) 0.47; Luc % (Auto) 2; Lymphocytes # (A) 3.9 k/uL (1.0-4.8); Lymphocytes % (A) 19 %; MCH 30.1 pg (25.0-35.0); MCHC 33.9 g/dL (31.0-37.0); MCV 88.8 fL (80.0-100.0); Mean Platelet Volume 7.3; Monocytes # (A) 0.8 k/uL (0-1.0); Monocytes % (A) 4 %; Neutrophils # (A) 14.8 k/uL (1.3-7.7); Neutrophils % (A) 73 %; RDW 15.1 % (11.5-15.5); WBC 20.3 k/uL (3.8-10.6); WBC (Perox) 21.16
[2016-06-23 22:55] LABS: ALT 31 U/L (9-52); AST 19 U/L (14-36); Alkaline Phosphatase 84 U/L (38-126); Amylase 96 U/L (30-110); Anion Gap 12 mmol/L; Blood Urea Nitrogen 20 mg/dL (7-17); C Reactive Protein 5.9 mg/L (<10.0); Calcium 9.1 mg/dL (8.4-10.2); Carbon Dioxide 22 mmol/L (22-30); Chloride 99 mmol/L (98-107); Glucose 80 mg/dL (74-99); Non-African American GFR(MDRD) >60 (>60 ml/min/1.73 sqM); Potassium 3.8 mmol/L (3.5-5.1); Sodium 133 mmol/L (137-145); Total Bilirubin 0.4 mg/dL (0.2-1.3); Total Protein 6.8 g/dL (6.3-8.2)
[2016-06-23] MEDS ORDERED: RX INFO: IV CONTRAST WAS GIVEN 1 EACH MISC MISCELLANE PRN (23:20)
[2016-06-23] MEDS ORDERED: IOHEXOL 350 MG/ML 25 ML BOTTLE (ORAL USE) PO PRN (23:20)
--- NOTE | 2016-06-23 23:56 | CT ---
EXAMINATION TYPE: CT abdomen pelvis wo con DATE OF EXAM: 06/23/2016 11:43 PM COMPARISON: 03/13/2016 HISTORY: left sided abd pain that radiates to the back, elevated WBC, renal stone protocol, history o f appendectomy, cholecystectomy, Crohn's disease, and diverticulosis, neg hcg CT DLP: 962.60 mGycm Automated exposure control for dose reduction was used. TECHNIQUE: Helical acquisition of images was performed from the lung bases through the pelvis. FINDINGS: There is no evidence of retroperitoneal adenopathy. There is a 2 cm left adrenal mass there is stable compared to old exam. Kidneys have normal size and contour there is no hydronephrosis. There are clips from cholecystectomy. Liver spleen pancreas appear normal. Bile ducts are not dilated . There is no evidence of intestinal obstruction. Bladder distends smoothly. There is no free fluid i n the pelvis. Appendix is not seen with certainty. There is no sign of appendicitis. I see no bony de structive process. IMPRESSION: NO ACUTE ABNORMALITY OF THE ABDOMEN AND PELVIS. STABLE LEFT ADRENAL MASS COMPARED TO OLD CT SCAN OF 1 05/25/2014. I DO NOT SEE A CAUSE FOR ABDOMINAL PAIN.
[2016-06-24] MEDS ORDERED: fentaNYL (PF) 50 MCG/ML 2 ML AMP IV STA (00:13)
[2016-06-24 00:26] VITALS: BP 110/58; PULSE 96; RESP 18; TEMP 97.7
== END 2016-06-24 01:04 | disposition home or self-care (01) ==
LOC: EC 21:14
DX: R10.32 Left lower quadrant pain (principal); R10.12 Left upper quadrant pain; R10.13 Epigastric pain; R31.9 Hematuria, unspecified; G40.909 Epilepsy, unspecified, not intractable, without status epilepticus; E07.9 Disorder of thyroid, unspecified; K50.90 Crohn's disease, unspecified, without complications; M79.7 Fibromyalgia; K21.9 Gastro-esophageal reflux disease without esophagitis; G43.909 Migraine, unspecified, not intractable, without status migrainosus; F41.9 Anxiety disorder, unspecified; F32.9 Major depressive disorder, single episode, unspecified; F17.200 Nicotine dependence, unspecified, uncomplicated; Z79.899 Other long term (current) drug therapy; Z88.1 Allergy status to other antibiotic agents; Z88.2 Allergy status to sulfonamides; Z88.5 Allergy status to narcotic agent; Z88.6 Allergy status to analgesic agent; Z88.8 Allergy status to other drugs, medicaments and biological substances
CPT/HCPCS: 36415; 80053; 82150; 83605; 83690; 85025; 86140; 81003; 81025; 74176; 99285; 96374; J3010

== ENCOUNTER 2016-07-19 20:11 | Emergency (ER) | payer OTHER ==
[2016-07-19 20:30] VITALS: RESP 16; TEMP 99
[2016-07-19] MEDS ORDERED: MORPHINE SULFATE 4 MG/ML SYRINGE IVP STA (21:18)
[2016-07-19] MEDS ORDERED: SODIUM CHLORIDE 0.9% 1,000 ML IV ONE (21:18)
[2016-07-19] MEDS ORDERED: diphenhydrAMINE 50 MG/ML 1 ML VIAL IVP STA (21:19)
[2016-07-19] MEDS ORDERED: METOCLOPRAMIDE 5 MG/ML 2 ML VIAL IVP STA (21:19)
[2016-07-19 22:03] LABS: Appearance,Urine Clear (Clear); Basophils % (A) 0 %; Bilirubin,Urine Negative (Negative); CH 30.4; Eosinophils # (A) 0.4 k/uL (0-0.7); Eosinophils % (A) 4 %; Glucose,Urine (UA) Negative (Negative); HCT 32.3 % (34.0-46.0); HGB 10.3 gm/dL (11.4-16.0); Ketones,Urine Negative (Negative); Leukocyte Esterase,Urine Negative (Negative); Luc # (Auto) 0.19; Luc % (Auto) 2; Lymphocytes % (A) 37 %; MCH 29.6 pg (25.0-35.0); MCHC 31.9 g/dL (31.0-37.0); MCV 92.7 fL (80.0-100.0); Mean Platelet Volume 6.5; Monocytes # (A) 0.6 k/uL (0-1.0); Monocytes % (A) 6 %; Neutrophils # (A) 5.5 k/uL (1.3-7.7); Neutrophils % (A) 51 %; Nitrite,Urine Negative (Negative); Protein,Urine Negative (Negative); RBC 3.48 m/uL (3.80-5.40); RDW 14.7 % (11.5-15.5); Specific Gravity,Urine 1.009 (1.001-1.035); UA Billing (MACRO vs. MICRO) CHEM; Urobilinogen,Urine <2.0 mg/dL (<2.0); WBC 10.7 k/uL (3.8-10.6); WBC (Perox) 10.74
[2016-07-19 22:18] LABS: ALT 25 U/L (9-52); AST 16 U/L (14-36); Alkaline Phosphatase 74 U/L (38-126); Anion Gap 11 mmol/L; Blood Urea Nitrogen 19 mg/dL (7-17); Calcium 9.1 mg/dL (8.4-10.2); Carbon Dioxide 21 mmol/L (22-30); Chloride 105 mmol/L (98-107); Glucose 70 mg/dL (74-99); Non-African American GFR(MDRD) >60 (>60 ml/min/1.73 sqM); Potassium 3.8 mmol/L (3.5-5.1); Sodium 137 mmol/L (137-145); Total Bilirubin 0.4 mg/dL (0.2-1.3); Total Protein 6.5 g/dL (6.3-8.2)
--- NOTE | 2016-07-19 22:37 | XR ---
EXAM: XR Abdomen Complete With XR Chest. CLINICAL HISTORY: Reason: Pain TECHNIQUE: Frontal view of the chest, frontal view of the abdomen/pelvis and upright view of the abdomen. COMPARISON: 03/13/16 FINDINGS: Lungs: Unremarkable. No consolidation. Pleural space: Unremarkable. No pneumothorax. Heart: Unremarkable. No cardiomegaly. Mediastinum: Unremarkable. Gastrointestinal tract: The distal colon is dilated to a maximum diameter of 8.8 cm with air largest in the distal transverse colon, suggest colonic ileus versus distal obstruction. Moderate amount of stool in the proximal colon. Organs: Cholecystectomy clips. Bones/joints: Unremarkable. IMPRESSION: The distal colon is dilated to a maximum diameter of 8.8 cm with air largest in the distal transverse colon, suggest colonic ileus versus distal obstruction.
--- NOTE | 2016-07-19 23:33 | ED ---
General Adult HPI - General Chief complaint: Abdominal Pain Stated complaint: Abdominal Pain Source: patient Mode of arrival: EMS Limitations: no limitations - History of Present Illness Initial comments: 4-year-old female with a past medical history of chronic abdominal pain and multiple visits to this ED presented for evaluation of epigastric abdominal pain that started this morning. She states that this is different than her previous abdominal pain as it is located more in her upper abdomen and radiates into her back. She describes it as sharpness with associated nausea. She further states that there is been associated hematuria for the last 2 weeks for which she was seen by her primary care physician who stated that no further workup was required. She has no prior history of kidney stones. She states nothing makes her pain better but it is worsened by palpation and certain movements. She has tried no medications for improvement. - Related Data Home Medications Medication Instructions Recorded Confirmed Sertraline HCl [Zoloft] 200 mg PO DAILY 09/24/13 07/19/16 ALPRAZolam [Xanax] 2 mg PO TID PRN 08/02/14 07/19/16 Levothyroxine Sodium [Synthroid] 125 mcg PO QAM 06/05/15 07/19/16 Ranitidine HCl [Zantac] 150 mg PO BID 12/26/15 07/19/16 Simvastatin [Zocor] 20 mg PO HS 12/26/15 07/19/16 Divalproex Sodium [Depakote] 1,000 mg PO BID 04/30/16 07/19/16 Gabapentin 600 mg PO TID 04/30/16 07/19/16 Medroxyprogesterone Acetate 150 mg IM Q90D 04/30/16 07/19/16 [Depo-Provera] Omeprazole 20 mg PO DAILY 04/30/16 07/19/16 QUEtiapine [SEROquel] 100 mg PO QAM 04/30/16 07/19/16 QUEtiapine [SEROquel] 400 mg PO HS 04/30/16 07/19/16 Zolpidem [Ambien] 10 mg PO HS 04/30/16 07/19/16 Lisinopril-Hctz 20-25 mg 1 tab PO BID 06/23/16 07/19/16 [Zestoretic 20-25] Prevacid Unknown Dose 1 tab PO DAILY 06/23/16 07/19/16 Propranolol HCl [Inderal] 60 mg PO TID 06/23/16 07/19/16 Aspirin/Acetaminophen/Caffeine 2 tab PO DAILY PRN 07/19/16 07/19/16 [Excedrin Migraine Caplet] Beclomethasone Dipropionate [Qvar 1 puff INHALATION RT-DAILY PRN 07/19/16 80 mcg] Cyclobenzaprine [Flexeril] 10 mg PO TID 07/19/16 07/19/16 Previous Rx's Medication Instructions Recorded HYDROcodone/APAP 5-325MG [Maiden 1 - 2 tab PO Q6HR PRN #14 tab 07/19/16 5-325] Allergies Allergy/AdvReac Type Severity Reaction Status Date / Time acetaminophen Allergy Unknown Verified 07/19/16 20:44 azithromycin [From Zithromax] Allergy Unknown Verified 07/19/16 20:44 Childhood baclofen Allergy Rash/Hives Verified 07/19/16 20:44 butorphanol tartrate Allergy Rash/Hives Verified 07/19/16 20:44 [From Stadol] dicyclomine [From Bentyl] Allergy Unknown Verified 07/19/16 20:44 dicyclomine HCl [From Bentyl] Allergy Hallucinati Verified 07/19/16 20:44 ons granisetron HCl [From Kytril] Allergy Anaphylaxis Verified 07/19/16 20:44 ketorolac tromethamine Allergy Rash/Hives Verified 07/19/16 20:44 [From Toradol] methocarbamol [From Robaxin] Allergy Unknown Verified 07/19/16 20:44 morphine Allergy Rash/Hives Verified 07/19/16 20:44 sulfamethoxazole Allergy Rash/Hives Verified 07/19/16 20:44 [From Bactrim] trimethoprim [From Bactrim] Allergy Rash/Hives Verified 07/19/16 20:44 codeine AdvReac Vomiting & Verified 07/19/16 20:44 Headache meperidine HCl [From Demerol] AdvReac Swelling Verified 07/19/16 20:44 methylprednisolone AdvReac Vomiting & Verified 07/19/16 20:44 [From Medrol] Headache Review of Systems ROS Statement: Those systems with pertinent positive or pertinent negative responses have been documented in the HPI. ROS Other: All systems not noted in ROS Statement are negative. Constitutional: Denies: fever, chills Eyes: Denies: eye pain, vision change ENT: Denies: ear pain, throat pain Respiratory: Denies: cough, dyspnea Cardiovascular: Denies: chest pain, palpitations Endocrine: Denies: fatigue, polydipsia Gastrointestinal: Reports: abdominal pain, nausea. Denies: vomiting, diarrhea, constipation, hematemesis, melena, hematochezia Genitourinary: Reports: hematuria. Denies: urgency, dysuria Musculoskeletal: Denies: back pain, arthralgia, myalgia Skin: Denies: rash, lesions Neurological: Denies: headache, weakness Psychiatric: Denies: anxiety, depression Hematological/Lymphatic: Denies: easy bleeding, swollen glands Past Medical History Past Medical History: Asthma, Fibromyalgia, GERD/Reflux, Seizure Disorder, Thyroid Disorder Additional Past Medical History / Comment(s): crohns disease, diverticulosis, ibs, carpal tunnel, anemia, chronic back pain , migraines, pinched nerves History of Any Multi-Drug Resistant Organisms: None Reported Past Surgical History: Adenoidectomy, Appendectomy, Cholecystectomy, Orthopedic Surgery, Tonsillectomy Additional Past Surgical History / Comment(s): EGD/colonoscopy, right ankle surgery Past Anesthesia/Blood Transfusion Reactions: No Reported Reaction Past Psychological History: Anxiety, Depression Additional Psychological History / Comment(s): on medica Smoking Status: Current every day smoker Past Alcohol Use History: None Reported Past Drug Use History: None Reported - Past Family History Father Family Medical History: Diabetes Mellitus, Hyperlipidemia Mother Family Medical History: Cancer, CVA/TIA, Deep Vein Thrombosis (DVT), Osteoarthritis (OA), Thyroid Disorder Additional Family Medical History / Comment(s): Extensive tattoos throughout body General Exam Limitations: no limitations General appearance: alert, in no apparent distress Head exam: Present: atraumatic, normocephalic, normal inspection Eye exam: Present: normal appearance, PERRL, EOMI. Absent: scleral icterus, conjunctival injection, periorbital swelling ENT exam: Present: normal exam, mucous membranes moist Neck exam: Present: normal inspection. Absent: tenderness, meningismus, lymphadenopathy Respiratory exam: Present: normal lung sounds bilaterally. Absent: respiratory distress, wheezes, rales, rhonchi, stridor Cardiovascular Exam: Present: regular rate, normal rhythm, normal heart sounds. Absent: systolic murmur, diastolic murmur, rubs, gallop, clicks GI/Abdominal exam: Present: soft, tenderness, normal bowel sounds. Absent: distended, guarding, rebound, rigid, diminished bowel sounds, hyperactive bowel sounds, hypoactive bowel sounds, organomegaly, mass, bruit, pulsatile mass Rectal exam: Present: deferred Extremities exam: Present: normal inspection, full ROM, normal capillary refill. Absent: tenderness, pedal edema, joint swelling, calf tenderness Back exam: Present: normal inspection Neurological exam: Present: alert, oriented X3, CN II-XII intact Psychiatric exam: Present: normal affect, normal mood Skin exam: Present: warm, dry, intact, normal color. Absent: rash Course Vital Signs 07/19/16 20:28 Temperature 99 F Pulse Rate 96 Respiratory 16 Rate Blood Pressure 111/61 O2 Sat by Pulse 100 Oximetry EKG Findings - EKG Comments: EKG Findings:: Normal sinus rhythm with ventricular rate of 88, CINDY 160, QRS 88 , QT/QTC 380/459. Medical Decision Making - Medical Decision Making 31-year-old female with past medical history of chronic abdominal pain presenting for evaluation of epigastric abdominal pain that started this morning and has associated nausea and hematuria. She denies any past history of kidney stones and states that she has had the hematuria for 2 weeks. It was evaluated by her primary care physician who stated that she required no further workup. On physical examination she is tender to palpation over the epigastric abdomen but pain is distractible. Lungs are clear to auscultation bilaterally and chest exam reveals no significant abnormalities. There are no rashes or other skin manifestations. We'll obtain labs, urine, and provide pain control and IV fluids. We'll also obtain acute abdominal series. Labs revealed no significant abnormalities and her improved from previous visits. Although the acute abdominal series showed a dilated distal colon with a maximum diameter of 8.8 cm with her largest in the distal transverse colon that is suggestive of colonic ileus versus distal obstruction, CT abdomen and pelvis interpreted as unremarkable without obstruction or mucosal thickening. Appendix is not visualized. There is a 19 x 21 mm hypodense nodule in the left adrenal gland measuring about 11 HEENT is likely an adenoma. The patient was informed of these findings and through shared decision making it was determined that she would be discharged with instructions to follow-up with her primary care physician but to return if her symptoms should worsen or persist including but not limited to: Intractable abdominal pain, intractable nausea and vomiting , urinary retention, hematochezia, melena, abdominal distention. The patient acknowledged an understanding of this information and agreed with this plan of care. - Lab Data Result diagrams: 07/19/16 21:50 07/19/16 21:50 Lab Results 07/19/16 07/19/16 07/19/16 Range/Units 21:50 21:50 21:50 WBC 10.7 H (3.8-10.6) k/uL RBC 3.48 L (3.80-5.40) m/uL Hgb 10.3 L (11.4-16.0) gm/dL Hct 32.3 L (34.0-46.0) % MCV 92.7 (80.0-100.0) fL MCH 29.6 (25.0-35.0) pg MCHC 31.9 (31.0-37.0) g/dL RDW 14.7 (11.5-15.5) % Plt Count 471 H (150-450) k/uL Neutrophils % 51 % Lymphocytes % 37 % Monocytes % 6 % Eosinophils % 4 % Basophils % 0 % Neutrophils # 5.5 (1.3-7.7) k/uL Lymphocytes # 4.0 (1.0-4.8) k/uL Monocytes # 0.6 (0-1.0) k/uL Eosinophils # 0.4 (0-0.7) k/uL Basophils # 0.0 (0-0.2) k/uL Sodium 137 (137-145) mmol/L Potassium 3.8 (3.5-5.1) mmol/L Chloride 105 (98-107) mmol/L Carbon Dioxide 21 L (22-30) mmol/L Anion Gap 11 mmol/L BUN 19 H (7-17) mg/dL Creatinine 1.00 (0.52-1.04) mg/dL Est GFR (MDRD) Af Amer >60 (>60 ml/min/1.73 sqM) Est GFR (MDRD) Non-Af >60 (>60 ml/min/1.73 sqM) Glucose 70 L (74-99) mg/dL Plasma Lactic Acid Jeremy (0.7-2.0) mmol/L Calcium 9.1 (8.4-10.2) mg/dL Total Bilirubin 0.4 (0.2-1.3) mg/dL AST 16 (14-36) U/L ALT 25 (9-52) U/L Alkaline Phosphatase 74 (38-126) U/L Total Protein 6.5 (6.3-8.2) g/dL Albumin 3.6 (3.5-5.0) g/dL Lipase 58 (23-300) U/L Urine Color Urine Appearance (Clear) Urine pH (5.0-8.0) Ur Specific [place] (1.001-1.035) Urine Protein (Negative) Urine Glucose (UA) (Negative) Urine Ketones (Negative) Urine Blood (Negative) Urine Nitrite (Negative) Urine Bilirubin (Negative) Urine Urobilinogen (<2.0) mg/dL Ur Leukocyte Esterase (Negative) Urine HCG, Qual Not Detected (Not Detectd) 07/19/16 07/19/16 Range/Units 21:50 21:50 WBC (3.8-10.6) k/uL RBC (3.80-5.40) m/uL Hgb (11.4-16.0) gm/dL Hct (34.0-46.0) % MCV (80.0-100.0) fL MCH (25.0-35.0) pg MCHC (31.0-37.0) g/dL RDW (11.5-15.5) % Plt Count (150-450) k/uL Neutrophils % % Lymphocytes % % Monocytes % % Eosinophils % % Basophils % % Neutrophils # (1.3-7.7) k/uL Lymphocytes # (1.0-4.8) k/uL Monocytes # (0-1.0) k/uL Eosinophils # (0-0.7) k/uL Basophils # (0-0.2) k/uL Sodium (137-145) mmol/L Potassium (3.5-5.1) mmol/L Chloride (98-107) mmol/L Carbon Dioxide (22-30) mmol/L Anion Gap mmol/L BUN (7-17) mg/dL Creatinine (0.52-1.04) mg/dL Est GFR (MDRD) Af Amer (>60 ml/min/1.73 sqM) Est GFR (MDRD) Non-Af (>60 ml/min/1.73 sqM) Glucose (74-99) mg/dL Plasma Lactic Acid Jeremy 0.9 (0.7-2.0) mmol/L Calcium (8.4-10.2) mg/dL Total Bilirubin (0.2-1.3) mg/dL AST (14-36) U/L ALT (9-52) U/L Alkaline Phosphatase (38-126) U/L Total Protein (6.3-8.2) g/dL Albumin (3.5-5.0) g/dL Lipase (23-300) U/L Urine Color Light Yellow Urine Appearance Clear (Clear) Urine pH 6.0 (5.0-8.0) Ur Specific [place] 1.009 (1.001-1.035) Urine Protein Negative (Negative) Urine Glucose (UA) Negative (Negative) Urine Ketones Negative (Negative) Urine Blood Negative (Negative) Urine Nitrite Negative (Negative) Urine Bilirubin Negative (Negative) Urine Urobilinogen <2.0 (<2.0) mg/dL Ur Leukocyte Esterase Negative (Negative) Urine HCG, Qual (Not Detectd) Disposition Clinical Impression: Abdominal pain, Nausea Disposition: HOME SELF-CARE Condition: Stable Instructions: Abdominal Pain (ED) Additional Instructions: Please use medication as discussed. Please follow up with family doctor if symptoms have not improved over the next two days. Please return to the emergency room if your symptoms increase or worsen or for any other concerns. Prescriptions: HYDROcodone/APAP 5-325MG [Maiden 5-325] 1 - 2 tab PO Q6HR PRN #14 tab PRN Reason: Analgesia Time of Disposition: 23:43
--- NOTE | 2016-07-19 23:37 | CT ---
EXAM: CT Abdomen and Pelvis Without Intravenous Contrast. CLINICAL HISTORY: left sided abd pain, history of appendectomy, cholecystectomy, Crohn's disease, and diverticulosis, -hcg, TECHNIQUE: Axial computed tomography images of the abdomen and pelvis without intravenous contrast. CTDI is 21.95 mGy and DLP is 1173 mGy-cm This CT exam was performed using one or more of the following dose reduction techniques: automated exposure control, adjustment of the mA and/or kV according to patient size, and/or use of iterative reconstruction technique. Coronal and sagittal reconstructions are performed COMPARISON: 06/23/16 FINDINGS: Lower thorax: Small amount of airspace opacity in the visualized left lower lobe, likely representing atelectasis or acute pneumonia is less likely but cannot be entirely excluded. ABDOMEN: Liver: Unremarkable. Gallbladder and bile ducts: Cholecystectomy clips. No ductal dilation. Pancreas: Unremarkable. No ductal dilation. Spleen: Unremarkable. No splenomegaly. Adrenals: 19 x 21 mm hypodense nodule in left adrenal gland, measuring about 11 HU, is likely adenoma. Kidneys and ureters: Unremarkable. No obstructing stones. No hydronephrosis. Stomach and bowel: Unremarkable. No obstruction. No mucosal thickening. Appendix: Not visualized PELVIS: Bladder: Unremarkable. No stones. Reproductive: Anteverted uterus and bilateral adnexa appear normal. ABDOMEN and PELVIS: Intraperitoneal space: Unremarkable. No free air. No significant fluid collection. Bones/joints: No acute fracture. No dislocation. Soft tissues: Unremarkable. Vasculature: Unremarkable. No abdominal aortic aneurysm. Lymph nodes: Unremarkable. No enlarged lymph nodes. IMPRESSION: 1. Small amount of airspace opacity in the visualized left lower lobe, likely representing atelectasis or acute pneumonia is less likely but cannot be entirely excluded. 2. 19 x 21 mm hypodense nodule in left adrenal gland, measuring about 11 HU, is likely adenoma.
[2016-07-19] MEDS ORDERED: ONDANSETRON 4 MG ODT STARTER PACK 2 TAB BTL PO STA (23:56)
[2016-07-20 00:02] VITALS: BP 115/57; PULSE 82
== END 2016-07-20 00:02 | disposition home or self-care (01) ==
LOC: EC 20:11
DX: R10.13 Epigastric pain (principal); R11.0 Nausea; F32.9 Major depressive disorder, single episode, unspecified; K21.9 Gastro-esophageal reflux disease without esophagitis; G40.909 Epilepsy, unspecified, not intractable, without status epilepticus; E07.9 Disorder of thyroid, unspecified; F17.200 Nicotine dependence, unspecified, uncomplicated; Z88.1 Allergy status to other antibiotic agents; Z88.2 Allergy status to sulfonamides; Z88.8 Allergy status to other drugs, medicaments and biological substances; Z88.5 Allergy status to narcotic agent; Z90.49 Acquired absence of other specified parts of digestive tract; Z79.899 Other long term (current) drug therapy
CPT/HCPCS: 99285; 96374; 96375 ×2; 96361 ×2; 36415; 93005; 80053; 83605; 83690; 85025; 81003; 81025; 74022; 74176; J2270; J1200; J2765

== ENCOUNTER 2016-09-12 15:20 | Emergency (ER) | payer OTHER ==
[2016-09-12] MEDS ORDERED: SODIUM CHLORIDE 0.9% 1,000 ML IV STA (15:46)
[2016-09-12] MEDS ORDERED: HYDROmorphone 1 MG/ML 1 ML SYRINGE IVP STA ×2 (15:46→18:11)
[2016-09-12] MEDS ORDERED: ONDANSETRON 4 MG/2 ML VIAL IVP STA (15:46)
[2016-09-12] MEDS ORDERED: PANTOPRAZOLE 40 MG/10 ML VIAL IVP STA (15:48)
[2016-09-12 16:24] LABS: Basophils # (A) 0.1 k/uL (0-0.2); Basophils % (A) 1 %; CH 29.6; Eosinophils # (A) 0.2 k/uL (0-0.7); Eosinophils % (A) 2 %; HCT 33.6 % (34.0-46.0); HDW 2.59; Luc # (Auto) 0.28; Luc % (Auto) 3; Lymphocytes # (A) 3.8 k/uL (1.0-4.8); Lymphocytes % (A) 38 %; MCH 29.6 pg (25.0-35.0); MCHC 32.9 g/dL (31.0-37.0); Mean Platelet Volume 6.5; Monocytes # (A) 0.6 k/uL (0-1.0); Monocytes % (A) 6 %; Neutrophils # (A) 5.1 k/uL (1.3-7.7); Neutrophils % (A) 51 %; RBC 3.73 m/uL (3.80-5.40); RDW 14.8 % (11.5-15.5); WBC 10.1 k/uL (3.8-10.6); WBC (Perox) 10.56
[2016-09-12 16:28] VITALS: RESP 18
[2016-09-12 16:37] LABS: Anion Gap 11 mmol/L; Appearance,Urine Clear (Clear); Bacteria,Urine Rare /hpf; Bilirubin,Urine Negative (Negative); Blood Urea Nitrogen 22 mg/dL (7-17); Carbon Dioxide 22 mmol/L (22-30); Chloride 102 mmol/L (98-107); Glucose 76 mg/dL (74-99); Glucose,Urine (UA) Negative (Negative); Ketones,Urine Negative (Negative); Leukocyte Esterase,Urine Trace (Negative); Mucus,Urine Rare /hpf; Nitrite,Urine Negative (Negative); PH, Urine 6.5 (5.0-8.0); Particle Count 1333; Potassium 4.3 mmol/L (3.5-5.1); Protein,Urine Negative (Negative); Sodium 135 mmol/L (137-145); Squamous Epithelial Cell,Urine 1 /hpf (0-4); UA Billing (MACRO vs. MICRO) MICRO; Urobilinogen,Urine <2.0 mg/dL (<2.0); WBC,Urine 1 /hpf (0-5)
[2016-09-12 16:38] LABS: ALT 25 U/L (9-52); AST 13 U/L (14-36); Alkaline Phosphatase 83 U/L (38-126); Amylase 110 U/L (30-110); Calcium 9.1 mg/dL (8.4-10.2); Non-African American GFR(MDRD) 58 (>60 ml/min/1.73 sqM); Total Bilirubin 0.3 mg/dL (0.2-1.3); Total Protein 6.7 g/dL (6.3-8.2)
--- NOTE | 2016-09-12 16:39 | ED ---
General Adult HPI - General Chief complaint: Abdominal Pain Stated complaint: abdominal pain Time Seen by Provider: 09/12/16 15:25 Source: patient, RN notes reviewed, old records reviewed Mode of arrival: EMS Limitations: no limitations - History of Present Illness Initial comments: Patient 31-year-old female significant past medical history for Crohn's, IBS, pancreatitis, who presents emergency room today by EMS, the chief complaint of abdominal pain that started this morning around 9 AM. Patient does admit that it as sharp, dull, and crampy in nature across the upper abdomen. Currently rates pain 8. Patient does admit to symptoms of nausea vomiting and diarrhea. States she's seeing blood in her stool. Patient denies any other complaints at this time. Patient denies any recent fever, chills, shortness of breath, chest pain, back pain, numbness or tingling, dysuria or hematuria, constipation, headaches or visual changes, or any other complaints. - Related Data Home Medications Medication Instructions Recorded Confirmed Sertraline HCl [Zoloft] 200 mg PO DAILY 09/24/13 07/19/16 ALPRAZolam [Xanax] 2 mg PO TID PRN 08/02/14 07/19/16 Levothyroxine Sodium [Synthroid] 125 mcg PO QAM 06/05/15 07/19/16 Ranitidine HCl [Zantac] 150 mg PO BID 12/26/15 07/19/16 Simvastatin [Zocor] 20 mg PO HS 12/26/15 07/19/16 Divalproex Sodium [Depakote] 1,000 mg PO BID 04/30/16 07/19/16 Gabapentin 600 mg PO TID 04/30/16 07/19/16 Medroxyprogesterone Acetate 150 mg IM Q90D 04/30/16 07/19/16 [Depo-Provera] Omeprazole 20 mg PO DAILY 04/30/16 07/19/16 QUEtiapine [SEROquel] 100 mg PO QAM 04/30/16 07/19/16 QUEtiapine [SEROquel] 400 mg PO HS 04/30/16 07/19/16 Zolpidem [Ambien] 10 mg PO HS 04/30/16 07/19/16 Lisinopril-Hctz 20-25 mg 1 tab PO BID 06/23/16 07/19/16 [Zestoretic 20-25] Prevacid Unknown Dose 1 tab PO DAILY 06/23/16 07/19/16 Propranolol HCl [Inderal] 60 mg PO TID 06/23/16 07/19/16 Aspirin/Acetaminophen/Caffeine 2 tab PO DAILY PRN 07/19/16 07/19/16 [Excedrin Migraine Caplet] Beclomethasone Dipropionate [Qvar 1 puff INHALATION RT-DAILY PRN 07/19/16 80 mcg] Cyclobenzaprine [Flexeril] 10 mg PO TID 07/19/16 07/19/16 Previous Rx's Medication Instructions Recorded HYDROcodone/APAP 5-325MG [[place] 1 - 2 tab PO Q6HR PRN #14 tab 07/19/16 5-325] Omeprazole [PriLOSEC] 20 mg PO AC-BRKFST 14 Days 09/12/16 Ondansetron Odt [Zofran ODT] 4 mg PO Q8HR PRN #20 tab 09/12/16 Allergies Allergy/AdvReac Type Severity Reaction Status Date / Time acetaminophen Allergy Unknown Verified 07/19/16 20:44 azithromycin [From Zithromax] Allergy Unknown Verified 07/19/16 20:44 Childhood baclofen Allergy Rash/Hives Verified 07/19/16 20:44 butorphanol tartrate Allergy Rash/Hives Verified 07/19/16 20:44 [From Stadol] dicyclomine [From Bentyl] Allergy Unknown Verified 07/19/16 20:44 dicyclomine HCl [From Bentyl] Allergy Hallucinati Verified 07/19/16 20:44 ons granisetron HCl [From Kytril] Allergy Anaphylaxis Verified 07/19/16 20:44 ketorolac tromethamine Allergy Rash/Hives Verified 07/19/16 20:44 [From Toradol] methocarbamol [From Robaxin] Allergy Unknown Verified 07/19/16 20:44 morphine Allergy Rash/Hives Verified 07/19/16 20:44 sulfamethoxazole Allergy Rash/Hives Verified 07/19/16 20:44 [From Bactrim] trimethoprim [From Bactrim] Allergy Rash/Hives Verified 07/19/16 20:44 codeine AdvReac Vomiting & Verified 07/19/16 20:44 Headache meperidine HCl [From Demerol] AdvReac Swelling Verified 07/19/16 20:44 methylprednisolone AdvReac Vomiting & Verified 07/19/16 20:44 [From Medrol] Headache Review of Systems ROS Statement: Those systems with pertinent positive or pertinent negative responses have been documented in the HPI. ROS Other: All systems not noted in ROS Statement are negative. Past Medical History Past Medical History: Asthma, Fibromyalgia, GERD/Reflux, Seizure Disorder, Thyroid Disorder Additional Past Medical History / Comment(s): crohns disease, diverticulosis, ibs, carpal tunnel, anemia, chronic back pain , migraines, pinched nerves History of Any Multi-Drug Resistant Organisms: None Reported Past Surgical History: Adenoidectomy, Appendectomy, Cholecystectomy, Orthopedic Surgery, Tonsillectomy Additional Past Surgical History / Comment(s): EGD/colonoscopy, right ankle surgery Past Anesthesia/Blood Transfusion Reactions: No Reported Reaction Past Psychological History: Anxiety, Depression Additional Psychological History / Comment(s): on medica Smoking Status: Current every day smoker Past Alcohol Use History: None Reported Past Drug Use History: None Reported - Past Family History Father Family Medical History: Diabetes Mellitus, Hyperlipidemia Mother Family Medical History: Cancer, CVA/TIA, Deep Vein Thrombosis (DVT), Osteoarthritis (OA), Thyroid Disorder Additional Family Medical History / Comment(s): Extensive tattoos throughout body General Exam - General Exam Comments Initial Comments: General: The patient is awake and alert, in no distress, and does not appear acutely ill. Eye: Pupils are equal, round and reactive to light, extra-ocular movements are intact. No nystagmus. There is normal conjunctiva bilaterally. No signs of icterus. Ears, nose, mouth and throat: There are moist mucous membranes and no oral lesions. Neck: The neck is supple, there is no tenderness or JVD. Cardiovascular: There is a regular rate and rhythm. No murmur, rub or gallop is appreciated. Respiratory: Lungs are clear to auscultation, respirations are non-labored, breath sounds are equal. No wheezes, stridor, rales, or rhonchi. Gastrointestinal: Normal exam. Normal bowel sounds. Soft on palpation. Patient does have tenderness in both left and right upper quadrants and epigastric. No rebound tenderness. No Guarding. No CVA tenderness. Musculoskeletal: Normal ROM, no tenderness. Strength 5/5. Sensation intact. Pulses equal bilaterally 2+. Neurological: A&O x 3. CN II-XII intact, There are no obvious motor or sensory deficits. Coordination appears grossly intact. Speech is normal. Skin: Skin is warm and dry and no rashes or lesions are noted. Psychiatric: Cooperative, appropriate mood & affect, normal judgment. : [employer] on present for exam. Normal rectal tone no bright red blood per rectum. Limitations: no limitations Course Vital Signs 09/12/16 16:26 Temperature 98.3 F Pulse Rate 85 Respiratory 18 Rate Blood Pressure 104/57 O2 Sat by Pulse 97 Oximetry Medical Decision Making - Medical Decision Making Patient reexamined at this time shows no signs of distress. Her labs been reviewed are unremarkable. Negative lactic acid. Patient has history of cholescytectomy. X-rays negative. Results were discussed with the patient. Patient does have an appointment with her GI specialist. Patient advised to continue with Pepcid and will be given a prescription for Prilosec for her symptoms of her upper abdominal pain. Patient advised to return here to emergency room if symptoms increase or worsen or for any other concerns. - Lab Data Result diagrams: 09/12/16 16:05 09/12/16 16:05 Lab Results 09/12/16 09/12/16 09/12/16 Range/Units 16:05 16:05 16:05 WBC 10.1 (3.8-10.6) k/uL RBC 3.73 L (3.80-5.40) m/uL Hgb 11.0 L (11.4-16.0) gm/dL Hct 33.6 L (34.0-46.0) % MCV 90.0 (80.0-100.0) fL MCH 29.6 (25.0-35.0) pg MCHC 32.9 (31.0-37.0) g/dL RDW 14.8 (11.5-15.5) % Plt Count 393 (150-450) k/uL Neutrophils % 51 % Lymphocytes % 38 % Monocytes % 6 % Eosinophils % 2 % Basophils % 1 % Neutrophils # 5.1 (1.3-7.7) k/uL Lymphocytes # 3.8 (1.0-4.8) k/uL Monocytes # 0.6 (0-1.0) k/uL Eosinophils # 0.2 (0-0.7) k/uL Basophils # 0.1 (0-0.2) k/uL Sodium 135 L (137-145) mmol/L Potassium 4.3 (3.5-5.1) mmol/L Chloride 102 (98-107) mmol/L Carbon Dioxide 22 (22-30) mmol/L Anion Gap 11 mmol/L BUN 22 H (7-17) mg/dL Creatinine 1.10 H (0.52-1.04) mg/dL Est GFR (MDRD) Af Amer >60 (>60 ml/min/1.73 sqM) Est GFR (MDRD) Non-Af 58 (>60 ml/min/1.73 sqM) Glucose 76 (74-99) mg/dL Plasma Lactic Acid Jeremy 1.3 (0.7-2.0) mmol/L Calcium 9.1 (8.4-10.2) mg/dL Total Bilirubin 0.3 (0.2-1.3) mg/dL AST 13 L (14-36) U/L ALT 25 (9-52) U/L Alkaline Phosphatase 83 (38-126) U/L Total Protein 6.7 (6.3-8.2) g/dL Albumin 3.7 (3.5-5.0) g/dL Amylase 110 (30-110) U/L Lipase 82 (23-300) U/L Urine Color Urine Appearance (Clear) Urine pH (5.0-8.0) Ur Specific [place] (1.001-1.035) Urine Protein (Negative) Urine Glucose (UA) (Negative) Urine Ketones (Negative) Urine Blood (Negative) Urine Nitrite (Negative) Urine Bilirubin (Negative) Urine Urobilinogen (<2.0) mg/dL Ur Leukocyte Esterase (Negative) Urine WBC (0-5) /hpf Ur Squamous Epith Cells (0-4) /hpf Urine Bacteria (None) /hpf Urine Mucus (None) /hpf Urine HCG, Qual (Not Detectd) Stool Occult Blood (Negative) 09/12/16 09/12/16 09/12/16 Range/Units 16:05 16:05 16:05 WBC (3.8-10.6) k/uL RBC (3.80-5.40) m/uL Hgb (11.4-16.0) gm/dL Hct (34.0-46.0) % MCV (80.0-100.0) fL MCH (25.0-35.0) pg MCHC (31.0-37.0) g/dL RDW (11.5-15.5) % Plt Count (150-450) k/uL Neutrophils % % Lymphocytes % % Monocytes % % Eosinophils % % Basophils % % Neutrophils # (1.3-7.7) k/uL Lymphocytes # (1.0-4.8) k/uL Monocytes # (0-1.0) k/uL Eosinophils # (0-0.7) k/uL Basophils # (0-0.2) k/uL Sodium (137-145) mmol/L Potassium (3.5-5.1) mmol/L Chloride (98-107) mmol/L Carbon Dioxide (22-30) mmol/L Anion Gap mmol/L BUN (7-17) mg/dL Creatinine (0.52-1.04) mg/dL Est GFR (MDRD) Af Amer (>60 ml/min/1.73 sqM) Est GFR (MDRD) Non-Af (>60 ml/min/1.73 sqM) Glucose (74-99) mg/dL Plasma Lactic Acid Jeremy (0.7-2.0) mmol/L Calcium (8.4-10.2) mg/dL Total Bilirubin (0.2-1.3) mg/dL AST (14-36) U/L ALT (9-52) U/L Alkaline Phosphatase (38-126) U/L Total Protein (6.3-8.2) g/dL Albumin (3.5-5.0) g/dL Amylase (30-110) U/L Lipase (23-300) U/L Urine Color Yellow Urine Appearance Clear (Clear) Urine pH 6.5 (5.0-8.0) Ur Specific [place] 1.020 (1.001-1.035) Urine Protein Negative (Negative) Urine Glucose (UA) Negative (Negative) Urine Ketones Negative (Negative) Urine Blood Negative (Negative) Urine Nitrite Negative (Negative) Urine Bilirubin Negative (Negative) Urine Urobilinogen <2.0 (<2.0) mg/dL Ur Leukocyte Esterase Trace H (Negative) Urine WBC 1 (0-5) /hpf Ur Squamous Epith Cells 1 (0-4) /hpf Urine Bacteria Rare H (None) /hpf Urine Mucus Rare H (None) /hpf Urine HCG, Qual Not Detected (Not Detectd) Stool Occult Blood Negative (Negative) Disposition Clinical Impression: Abdominal pain Disposition: HOME SELF-CARE Condition: Good Instructions: Abdominal Pain (ED) Additional Instructions: Please use medication as discussed. Please follow-up with GI/family doctor in the next 2 days of symptoms have not improved. Please return to emergency room if the symptoms increase or worsen or for any other concerns. Prescriptions: Omeprazole [PriLOSEC] 20 mg PO AC-BRKFST 14 Days Ondansetron Odt [Zofran ODT] 4 mg PO Q8HR PRN #20 tab PRN Reason: Nausea Referrals: Joan Meeks MD [Primary Care Provider] - 1-2 days Ferny Stiles MD [STAFF PHYSICIAN] - 1-2 days Time of Disposition: 18:12
--- NOTE | 2016-09-12 17:26 | XR ---
EXAMINATION TYPE: XR KUB DATE OF EXAM: 09/12/2016 CLINICAL HISTORY: Abdominal pain with nausea and vomiting. TECHNIQUE: 2 upright KUB images of the abdomen are obtained. COMPARISON: CT abdomen and pelvis July 19, 2016. FINDINGS: Scattered gas is seen in non-distended stomach and small bowel loops. Gas and fecal mater ial is seen in non-distended colon. Cholecystectomy clips are redemonstrated. Slight S-shaped scoliot ic curvature is seen. Lung bases are clear. Visualized osseous structures are intact. IMPRESSION: Overall nonobstructive bowel gas pattern.
[2016-09-12] MEDS ORDERED: MAG HYDROX/AL HYDROX/SIMETH 30 ML, HYOSCYAMINE ELIXIR 10 ML, CIMETIDINE HCL 300 MG, LID... PO STA ×4 (17:33)
[2016-09-12 18:43] VITALS: BP 104/66; PULSE 68; TEMP 98.2
== END 2016-09-12 18:42 | disposition home or self-care (01) ==
LOC: EC 15:20
DX: R10.10 Upper abdominal pain, unspecified (principal); R11.2 Nausea with vomiting, unspecified; R19.7 Diarrhea, unspecified; K21.9 Gastro-esophageal reflux disease without esophagitis; G40.909 Epilepsy, unspecified, not intractable, without status epilepticus; E07.9 Disorder of thyroid, unspecified; M79.7 Fibromyalgia; G89.29 Other chronic pain; F32.9 Major depressive disorder, single episode, unspecified; F41.9 Anxiety disorder, unspecified; F17.200 Nicotine dependence, unspecified, uncomplicated; Z79.3 Long term (current) use of hormonal contraceptives; Z79.899 Other long term (current) drug therapy; Z88.1 Allergy status to other antibiotic agents; Z88.5 Allergy status to narcotic agent; Z88.6 Allergy status to analgesic agent; Z88.8 Allergy status to other drugs, medicaments and biological substances; Z86.69 Personal history of other diseases of the nervous system and sense organs; Z90.49 Acquired absence of other specified parts of digestive tract
CPT/HCPCS: 36415; 80053; 82150; 83605; 83690; 85025; 82272; 81001; 81025; 74000; 99285; 96374; 96375 ×2; 96376; 96361; J2405; J1170; C9113

== ENCOUNTER 2016-09-13 19:10 | Emergency (ER) | payer OTHER ==
[2016-09-13] MEDS ORDERED: SODIUM CHLORIDE 0.9% 1,000 ML IV STA (19:15)
[2016-09-13] MEDS ORDERED: IBUPROFEN 600 MG TAB PO STA (19:25)
[2016-09-13] MEDS ORDERED: HYOSCYAMINE SULFATE 0.375 MG TAB.ER.12H PO STA (19:26)
[2016-09-13 19:37] LABS: Basophils # (A) 0.1 k/uL (0-0.2); Basophils % (A) 1 %; CH 29.6; CHCM 32.8; Eosinophils # (A) 0.3 k/uL (0-0.7); Eosinophils % (A) 3 %; HCT 30.4 % (34.0-46.0); HDW 2.58; HGB 9.9 gm/dL (11.4-16.0); Luc # (Auto) 0.23; Luc % (Auto) 2; Lymphocytes # (A) 3.6 k/uL (1.0-4.8); Lymphocytes % (A) 36 %; MCH 29.5 pg (25.0-35.0); MCHC 32.6 g/dL (31.0-37.0); MCV 90.5 fL (80.0-100.0); Mean Platelet Volume 6.6; Monocytes # (A) 0.7 k/uL (0-1.0); Monocytes % (A) 6 %; Neutrophils # (A) 5.3 k/uL (1.3-7.7); Neutrophils % (A) 52 %; RBC 3.36 m/uL (3.80-5.40); RDW 14.8 % (11.5-15.5); WBC 10.1 k/uL (3.8-10.6); WBC (Perox) 10.68
--- NOTE | 2016-09-13 19:54 | ED ---
Abdominal Pain HPI - General Chief Complaint: Abdominal Pain Stated Complaint: Abdominal Pain Time Seen by Provider: 09/13/16 19:14 Source: patient, EMS, RN notes reviewed Mode of arrival: EMS Limitations: no limitations - History of Present Illness Initial Comments: 31-year-old female presents emergency department via EMS with chief complaint of abdominal pain. Patient was seen here in emergency department yesterday and had a completely normal workup. Patient was discharged states pain seemed to have worsened and moved up in her right upper abdomen. Patient had a prior cholecystectomy and appendectomy. Patient has a history of Crohn's and pancreatitis. Patient states that she has had some blood in her stools though she tested negative yesterday. Patient denies any bleeding today. Denies any hematemesis or coffee-ground emesis. Patient states she's had some nausea and intermittent vomiting. Patient states that she felt warm today and does have a temp of 100.9 in emergency department. Patient states she has an appointment with GI coming up next 2 weeks. Patient denies any dysuria or hematuria. Denies any chance . - Related Data Home Medications Medication Instructions Recorded Confirmed Sertraline HCl [Zoloft] 200 mg PO DAILY 09/24/13 09/13/16 ALPRAZolam [Xanax] 2 mg PO TID PRN 08/02/14 09/13/16 Levothyroxine Sodium [Synthroid] 125 mcg PO QAM 06/05/15 09/13/16 Ranitidine HCl [Zantac] 150 mg PO BID 12/26/15 09/13/16 Simvastatin [Zocor] 20 mg PO HS 12/26/15 09/13/16 Divalproex Sodium [Depakote] 1,000 mg PO BID 04/30/16 09/13/16 Gabapentin 600 mg PO TID 04/30/16 09/13/16 Medroxyprogesterone Acetate 150 mg IM Q90D 04/30/16 09/13/16 [Depo-Provera] Omeprazole 20 mg PO DAILY 04/30/16 09/13/16 QUEtiapine [SEROquel] 100 mg PO QAM 04/30/16 09/13/16 QUEtiapine [SEROquel] 400 mg PO HS 04/30/16 09/13/16 Zolpidem [Ambien] 10 mg PO HS 04/30/16 09/13/16 Lisinopril-Hctz 20-25 mg 1 tab PO BID 06/23/16 09/13/16 [Zestoretic 20-25] Propranolol HCl [Inderal] 60 mg PO TID 06/23/16 09/13/16 Aspirin/Acetaminophen/Caffeine 2 tab PO DAILY PRN 07/19/16 09/13/16 [Excedrin Migraine Caplet] Beclomethasone Dipropionate [Qvar 1 puff INHALATION RT-DAILY PRN 07/19/16 80 mcg] Cyclobenzaprine [Flexeril] 10 mg PO TID 07/19/16 09/13/16 Lurasidone HCl [Latuda] 20 mg PO DAILY 09/13/16 09/13/16 Prochlorperazine [Compazine] 10 mg PO Q6H PRN 09/13/16 09/13/16 Allergies Allergy/AdvReac Type Severity Reaction Status Date / Time azithromycin [From Zithromax] Allergy Unknown Verified 09/13/16 19:24 Childhood baclofen Allergy Rash/Hives Verified 09/13/16 19:24 butorphanol tartrate Allergy Rash/Hives Verified 09/13/16 19:24 [From Stadol] dicyclomine [From Bentyl] Allergy Unknown Verified 09/13/16 19:24 granisetron HCl [From Kytril] Allergy Anaphylaxis Verified 09/13/16 19:24 ketorolac tromethamine Allergy Rash/Hives Verified 09/13/16 19:24 [From Toradol] meperidine HCl [From Demerol] Allergy Swelling Verified 09/13/16 19:55 methocarbamol [From Robaxin] Allergy Unknown Verified 09/13/16 19:24 morphine Allergy Rash/Hives Verified 09/13/16 19:24 sulfamethoxazole Allergy Rash/Hives Verified 09/13/16 19:24 [From Bactrim] trimethoprim [From Bactrim] Allergy Rash/Hives Verified 09/13/16 19:24 codeine AdvReac Vomiting & Verified 09/13/16 19:24 Headache dicyclomine HCl [From Bentyl] AdvReac Hallucinati Verified 09/13/16 19:55 ons methylprednisolone AdvReac Vomiting & Verified 09/13/16 19:24 [From Medrol] Headache Review of Systems ROS Statement: Those systems with pertinent positive or pertinent negative responses have been documented in the HPI. ROS Other: All systems not noted in ROS Statement are negative. Past Medical History Past Medical History: Asthma, Fibromyalgia, GERD/Reflux, Seizure Disorder, Thyroid Disorder Additional Past Medical History / Comment(s): crohns disease, diverticulosis, ibs, carpal tunnel, anemia, chronic back pain , migraines, pinched nerves History of Any Multi-Drug Resistant Organisms: None Reported Past Surgical History: Adenoidectomy, Appendectomy, Cholecystectomy, Orthopedic Surgery, Tonsillectomy Additional Past Surgical History / Comment(s): EGD/colonoscopy, right ankle surgery Past Anesthesia/Blood Transfusion Reactions: No Reported Reaction Past Psychological History: Anxiety, Depression Additional Psychological History / Comment(s): on medica Smoking Status: Current every day smoker Past Alcohol Use History: None Reported Past Drug Use History: None Reported - Past Family History Father Family Medical History: Diabetes Mellitus, Hyperlipidemia Mother Family Medical History: Cancer, CVA/TIA, Deep Vein Thrombosis (DVT), Osteoarthritis (OA), Thyroid Disorder Additional Family Medical History / Comment(s): Extensive tattoos throughout body General Exam Limitations: no limitations General appearance: alert, in no apparent distress Head exam: Present: atraumatic, normocephalic, normal inspection Neck exam: Present: normal inspection. Absent: tenderness, meningismus, lymphadenopathy Respiratory exam: Present: normal lung sounds bilaterally. Absent: respiratory distress, wheezes, rales, rhonchi, stridor Cardiovascular Exam: Present: regular rate, normal rhythm, normal heart sounds. Absent: systolic murmur, diastolic murmur, rubs, gallop, clicks GI/Abdominal exam: Present: soft, tenderness (Moderate right-sided abdominal tenderness), normal bowel sounds. Absent: distended, guarding, rebound, rigid Back exam: Absent: CVA tenderness (R), CVA tenderness (L) Skin exam: Present: warm, dry, intact, normal color. Absent: rash Course Vital Signs 09/13/16 09/13/16 09/13/16 19:16 19:30 20:21 Temperature 100.9 F H 97.4 F L Pulse Rate 71 94 94 Respiratory 16 18 24 Rate Blood Pressure 93/51 100/58 93/52 O2 Sat by Pulse 99 94 L 97 Oximetry Medical Decision Making - Medical Decision Making 31-year-old female presented for abdominal pain. Patient has chronic abdominal pain since age 15. She states she's been taking chronic narcotics. Patient's laboratory, CT does not show an acute abnormality's. Patient will be discharged at this time. She did have moderate amount of stool noted in her colon. Patient is advised to increase her fluid intake fiber intake and may take [id number] laxatives or stool softeners. - Lab Data Result diagrams: 09/13/16 19:29 09/13/16 19:29 Lab Results 09/13/16 09/13/16 09/13/16 Range/Units 19:29 19:29 19:29 WBC 10.1 (3.8-10.6) k/uL RBC 3.36 L (3.80-5.40) m/uL Hgb 9.9 L (11.4-16.0) gm/dL Hct 30.4 L (34.0-46.0) % MCV 90.5 (80.0-100.0) fL MCH 29.5 (25.0-35.0) pg MCHC 32.6 (31.0-37.0) g/dL RDW 14.8 (11.5-15.5) % Plt Count 418 (150-450) k/uL Neutrophils % 52 % Lymphocytes % 36 % Monocytes % 6 % Eosinophils % 3 % Basophils % 1 % Neutrophils # 5.3 (1.3-7.7) k/uL Lymphocytes # 3.6 (1.0-4.8) k/uL Monocytes # 0.7 (0-1.0) k/uL Eosinophils # 0.3 (0-0.7) k/uL Basophils # 0.1 (0-0.2) k/uL Sodium 134 L (137-145) mmol/L Potassium 3.8 (3.5-5.1) mmol/L Chloride 106 (98-107) mmol/L Carbon Dioxide 18 L (22-30) mmol/L Anion Gap 10 mmol/L BUN 13 (7-17) mg/dL Creatinine 1.00 (0.52-1.04) mg/dL Est GFR (MDRD) Af Amer >60 (>60 ml/min/1.73 sqM) Est GFR (MDRD) Non-Af >60 (>60 ml/min/1.73 sqM) Glucose 97 (74-99) mg/dL Plasma Lactic Acid Jeremy 1.6 (0.7-2.0) mmol/L Calcium 8.9 (8.4-10.2) mg/dL Total Bilirubin 0.2 (0.2-1.3) mg/dL AST 13 L (14-36) U/L ALT 27 (9-52) U/L Alkaline Phosphatase 97 (38-126) U/L Total Protein 6.0 L (6.3-8.2) g/dL Albumin 3.3 L (3.5-5.0) g/dL Amylase 96 (30-110) U/L Lipase 101 (23-300) U/L Urine Color Urine Appearance (Clear) Urine pH (5.0-8.0) Ur Specific [place] (1.001-1.035) Urine Protein (Negative) Urine Glucose (UA) (Negative) Urine Ketones (Negative) Urine Blood (Negative) Urine Nitrite (Negative) Urine Bilirubin (Negative) Urine Urobilinogen (<2.0) mg/dL Ur Leukocyte Esterase (Negative) Urine HCG, Qual (Not Detectd) 09/13/16 09/13/16 Range/Units 19:45 19:56 WBC (3.8-10.6) k/uL RBC (3.80-5.40) m/uL Hgb (11.4-16.0) gm/dL Hct (34.0-46.0) % MCV (80.0-100.0) fL MCH (25.0-35.0) pg MCHC (31.0-37.0) g/dL RDW (11.5-15.5) % Plt Count (150-450) k/uL Neutrophils % % Lymphocytes % % Monocytes % % Eosinophils % % Basophils % % Neutrophils # (1.3-7.7) k/uL Lymphocytes # (1.0-4.8) k/uL Monocytes # (0-1.0) k/uL Eosinophils # (0-0.7) k/uL Basophils # (0-0.2) k/uL Sodium (137-145) mmol/L Potassium (3.5-5.1) mmol/L Chloride (98-107) mmol/L Carbon Dioxide (22-30) mmol/L Anion Gap mmol/L BUN (7-17) mg/dL Creatinine (0.52-1.04) mg/dL Est GFR (MDRD) Af Amer (>60 ml/min/1.73 sqM) Est GFR (MDRD) Non-Af (>60 ml/min/1.73 sqM) Glucose (74-99) mg/dL Plasma Lactic Acid Jeremy (0.7-2.0) mmol/L Calcium (8.4-10.2) mg/dL Total Bilirubin (0.2-1.3) mg/dL AST (14-36) U/L ALT (9-52) U/L Alkaline Phosphatase (38-126) U/L Total Protein (6.3-8.2) g/dL Albumin (3.5-5.0) g/dL Amylase (30-110) U/L Lipase (23-300) U/L Urine Color Yellow Urine Appearance Clear (Clear) Urine pH 7.0 (5.0-8.0) Ur Specific [place] 1.015 (1.001-1.035) Urine Protein Negative (Negative) Urine Glucose (UA) Negative (Negative) Urine Ketones Negative (Negative) Urine Blood Negative (Negative) Urine Nitrite Negative (Negative) Urine Bilirubin Negative (Negative) Urine Urobilinogen <2.0 (<2.0) mg/dL Ur Leukocyte Esterase Negative (Negative) Urine HCG, Qual Not Detected (Not Detectd) Disposition Clinical Impression: Abdominal pain Disposition: HOME SELF-CARE Condition: Stable Instructions: Abdominal Pain (ED) Additional Instructions: Please return to the Emergency Department if symptoms worsen or any other concerns. Referrals: Rome Singleton MD [Primary Care Provider] - 1-2 days Time of Disposition: 20:43
[2016-09-13 19:56] LABS: ALT 27 U/L (9-52); AST 13 U/L (14-36); Alkaline Phosphatase 97 U/L (38-126); Amylase 96 U/L (30-110); Anion Gap 10 mmol/L; Blood Urea Nitrogen 13 mg/dL (7-17); Calcium 8.9 mg/dL (8.4-10.2); Carbon Dioxide 18 mmol/L (22-30); Chloride 106 mmol/L (98-107); Glucose 97 mg/dL (74-99); Non-African American GFR(MDRD) >60 (>60 ml/min/1.73 sqM); Potassium 3.8 mmol/L (3.5-5.1); Sodium 134 mmol/L (137-145); Total Bilirubin 0.2 mg/dL (0.2-1.3)
[2016-09-13] MEDS ORDERED: HYDROcodone/APAP 5-325MG 1 EACH TAB PO STA (19:59)
[2016-09-13] MEDS: RX INFO: IV CONTRAST WAS GIVEN 1 EACH MISC MISCELLANE PRN ×2 (20:20→20:21)
[2016-09-13 20:23] VITALS: RESP 24
[2016-09-13 20:31] LABS: Appearance,Urine Clear (Clear); Bilirubin,Urine Negative (Negative); Glucose,Urine (UA) Negative (Negative); Ketones,Urine Negative (Negative); Leukocyte Esterase,Urine Negative (Negative); Nitrite,Urine Negative (Negative); Protein,Urine Negative (Negative); Specific Gravity,Urine 1.015 (1.001-1.035); UA Billing (MACRO vs. MICRO) CHEM; Urobilinogen,Urine <2.0 mg/dL (<2.0)
--- NOTE | 2016-09-13 20:31 | CT ---
EXAMINATION TYPE: CT abdomen pelvis w con DATE OF EXAM: 09/13/2016 COMPARISON: 07/19/2016 HISTORY: Right side abdominal pain. Hx of chrons disease. CT DLP: 1820.9 mGycm Automated exposure control for dose reduction was used. TECHNIQUE: Helical acquisition of images was performed from the lung bases through the pelvis. CONTRAST: Performed without Oral Contrast and with IV Contrast, patient injected with 100 mL of Omnipaque 300. FINDINGS: Lung bases are clear of consolidation. There is no pleural effusion. Liver spleen pancreas appear normal. Bile ducts are not dilated. There are clips from cholecystectomy . There is a 2 cm rounded low-density left adrenal mass that is stable compared to old exam.. Kidneys show satisfactory contrast opacification. There is no hydronephrosis. There is no retroperitoneal ad enopathy. There is no ascites. I see no intestinal wall thickening. There is no sign of a bowel obstruction. Te rminal ileum appears normal. There is no evidence of a fistula. Bladder distends smoothly. There is n o sign of a pelvic mass. I see no bony destructive process. Appendix is not seen. There is no sign of appendicitis.: IMPRESSION: NEGATIVE CT SCAN OF THE ABDOMEN AND PELVIS. NO EVIDENCE OF INFLAMMATORY BOWEL DISEASE. NO ADVERSE ISMAEL NGE COMPARED TO OLD EXAM.
[2016-09-13] MEDS ORDERED: HYDROmorphone 1 MG/ML 1 ML SYRINGE IVP STA (20:42)
[2016-09-13 21:18] VITALS: BP 109/55; PULSE 90; TEMP 98.2
== END 2016-09-13 21:17 | disposition home or self-care (01) ==
LOC: EC 19:10
DX: R10.11 Right upper quadrant pain (principal); R11.2 Nausea with vomiting, unspecified; K50.90 Crohn's disease, unspecified, without complications; K21.9 Gastro-esophageal reflux disease without esophagitis; G40.909 Epilepsy, unspecified, not intractable, without status epilepticus; E07.9 Disorder of thyroid, unspecified; F41.9 Anxiety disorder, unspecified; F32.9 Major depressive disorder, single episode, unspecified; F17.200 Nicotine dependence, unspecified, uncomplicated; Z86.69 Personal history of other diseases of the nervous system and sense organs; Z90.49 Acquired absence of other specified parts of digestive tract; Z88.1 Allergy status to other antibiotic agents; Z88.2 Allergy status to sulfonamides; Z88.5 Allergy status to narcotic agent; Z88.8 Allergy status to other drugs, medicaments and biological substances; Z79.899 Other long term (current) drug therapy
CPT/HCPCS: 99285; 96374; 96361; 36415; 80053; 82150; 83605; 83690; 85025; 81003; 81025; 74177; J1170; Q9967

== ENCOUNTER 2016-10-05 12:58 | Emergency (ER) | payer OTHER ==
[2016-10-05 13:10] VITALS: BP 113/72; PULSE 95; RESP 20; TEMP 97.8
[2016-10-05] MEDS ORDERED: RX INFO: IV CONTRAST WAS GIVEN 1 EACH MISC MISCELLANE PRN (13:21)
[2016-10-05] MEDS ORDERED: SODIUM CHLORIDE 0.9% 1,000 ML IV STA ×2 (13:21)
[2016-10-05] MEDS ORDERED: ONDANSETRON 4 MG/2 ML VIAL IVP STA (13:21)
[2016-10-05] MEDS ORDERED: HYDROmorphone 1 MG/ML 1 ML SYRINGE IVP STA ×2 (13:23→17:18)
--- NOTE | 2016-10-05 13:51 | ED ---
Abdominal Pain HPI - General Chief Complaint: Abdominal Pain Stated Complaint: Abd Pain Time Seen by Provider: 10/05/16 13:11 Source: patient Mode of arrival: ambulatory Limitations: no limitations - History of Present Illness Initial Comments: 81-year-old white female presents with the complaint of some right-sided abdominal pain which is been present for one day. She states that it is in her right upper and right lower quadrants. It is associated with some nausea as well as altered level episodes of diarrhea. She denies any vomiting. She denies any fevers or chills. She's had multiple abdominal issues previously including Crohn's disease, colitis, pancreatitis. She's had an appendectomy as well as a cholecystectomy. She is tried her H2 isauro and PPI medication without relief. She denies any other complaints or modifying factors. The patient denies any possibility of her being . - Related Data Home Medications Medication Instructions Recorded Confirmed Sertraline HCl [Zoloft] 200 mg PO DAILY 09/24/13 10/05/16 ALPRAZolam [Xanax] 2 mg PO TID PRN 08/02/14 10/05/16 Levothyroxine Sodium [Synthroid] 125 mcg PO QAM 06/05/15 10/05/16 Ranitidine HCl [Zantac] 150 mg PO BID 12/26/15 10/05/16 Simvastatin [Zocor] 20 mg PO HS 12/26/15 10/05/16 Divalproex Sodium [Depakote] 1,000 mg PO BID 04/30/16 10/05/16 Gabapentin 600 mg PO TID 04/30/16 10/05/16 Medroxyprogesterone Acetate 150 mg IM Q90D 04/30/16 10/05/16 [Depo-Provera] Omeprazole 20 mg PO DAILY 04/30/16 10/05/16 QUEtiapine [SEROquel] 100 mg PO QAM 04/30/16 10/05/16 QUEtiapine [SEROquel] 400 mg PO HS 04/30/16 10/05/16 Zolpidem [Ambien] 10 mg PO HS 04/30/16 10/05/16 Lisinopril-Hctz 20-25 mg 1 tab PO BID 06/23/16 10/05/16 [Zestoretic 20-25] Propranolol HCl [Inderal] 60 mg PO TID 06/23/16 10/05/16 Aspirin/Acetaminophen/Caffeine 2 tab PO DAILY PRN 07/19/16 10/05/16 [Excedrin Migraine Caplet] Beclomethasone Dipropionate [Qvar 1 puff INHALATION RT-DAILY PRN 07/19/16 80 mcg] Cyclobenzaprine [Flexeril] 10 mg PO TID 07/19/16 10/05/16 Lurasidone HCl [Latuda] 20 mg PO DAILY 09/13/16 10/05/16 Prochlorperazine [Compazine] 10 mg PO Q6H PRN 09/13/16 10/05/16 Allergies Allergy/AdvReac Type Severity Reaction Status Date / Time azithromycin [From Zithromax] Allergy Unknown Verified 10/05/16 13:28 Childhood baclofen Allergy Rash/Hives Verified 10/05/16 13:28 butorphanol tartrate Allergy Rash/Hives Verified 10/05/16 13:28 [From Stadol] dicyclomine [From Bentyl] Allergy Unknown Verified 10/05/16 13:28 granisetron HCl [From Kytril] Allergy Anaphylaxis Verified 10/05/16 13:28 ketorolac tromethamine Allergy Rash/Hives Verified 10/05/16 13:28 [From Toradol] meperidine HCl [From Demerol] Allergy Swelling Verified 10/05/16 13:28 methocarbamol [From Robaxin] Allergy Unknown Verified 10/05/16 13:28 morphine Allergy Rash/Hives Verified 10/05/16 13:28 sulfamethoxazole Allergy Rash/Hives Verified 10/05/16 13:28 [From Bactrim] trimethoprim [From Bactrim] Allergy Rash/Hives Verified 10/05/16 13:28 codeine AdvReac Vomiting & Verified 10/05/16 13:28 Headache dicyclomine HCl [From Bentyl] AdvReac Hallucinati Verified 10/05/16 13:28 ons methylprednisolone AdvReac Vomiting & Verified 10/05/16 13:28 [From Medrol] Headache Review of Systems ROS Statement: Those systems with pertinent positive or pertinent negative responses have been documented in the HPI. ROS Other: All systems not noted in ROS Statement are negative. Past Medical History Past Medical History: Asthma, Fibromyalgia, GERD/Reflux, Seizure Disorder, Thyroid Disorder Additional Past Medical History / Comment(s): crohns disease, diverticulosis, ibs, carpal tunnel, anemia, chronic back pain , migraines, pinched nerves History of Any Multi-Drug Resistant Organisms: None Reported Past Surgical History: Adenoidectomy, Appendectomy, Cholecystectomy, Orthopedic Surgery, Tonsillectomy Additional Past Surgical History / Comment(s): EGD/colonoscopy, right ankle surgery Past Anesthesia/Blood Transfusion Reactions: No Reported Reaction Past Psychological History: Anxiety, Depression Smoking Status: Current every day smoker Past Alcohol Use History: None Reported Past Drug Use History: None Reported - Past Family History Father Family Medical History: Diabetes Mellitus, Hyperlipidemia Mother Family Medical History: Cancer, CVA/TIA, Deep Vein Thrombosis (DVT), Osteoarthritis (OA), Thyroid Disorder Additional Family Medical History / Comment(s): Extensive tattoos throughout body General Exam - General Exam Comments Initial Comments: GENERAL: The patient is well nourished and well hydrated. VITAL SIGNS: Heart rate, blood pressure, respiratory rate reviewed as recorded in nurse's notes. EYES: Pupils are round and reactive. Extraocular movements are intact. No conjunctival / lid redness or swelling. ENT: No external evidence of injury, swelling, or ecchymosis. Airway is patent. Throat is clear. NECK: Nontender. No swelling or evidence of injury. No subcutaneous emphysema. Trachea is midline. No thyroid mass. HEART: Regular rate and rhythm. Good peripheral pulses. LUNGS/CHEST: Breath sounds clear and equal bilaterally. No rales, rhonchi, or wheezes. No ecchymosis, subcutaneous emphysema, or tenderness. ABDOMEN: There is a mild tenderness present to the right upper and right lower abdomen. No palpable masses or organomegaly. No peritoneal signs. No abdominal wall swelling or ecchymosis. EXTREMITIES: No extremity tenderness. Normal muscle tone and function. No thoracolumbar tenderness. NEUROLOGIC: Sensation is grossly intact. Cranial nerve exam reveals face is symmetrical, tongue is midline, speech is clear. SKIN: No abrasions or ecchymosis is noted. No induration or masses noted. PSYCHIATRIC: Alert and oriented. Appropriate behavior and judgment. Limitations: no limitations Course Vital Signs 10/05/16 13:08 Temperature 97.8 F Pulse Rate 95 Respiratory 20 Rate Blood Pressure 113/72 O2 Sat by Pulse 99 Oximetry Medical Decision Making - Medical Decision Making The patient was seen and examined. All diagnostics were reviewed. Old records were reviewed. An IV is started and she is hydrated. She receives some Dilaudid as well as Zofran for her symptomatology. The computed tomography scan did not show any acute abnormalities. The laboratory is all essentially within normal limits with possible mild dehydration/decreased CO2. She is quite insistent on pain medications at the beginning of ER, throughout the course of the ER and even at the end of the ER visit. She did receive some Dilaudid and is requesting additional doses. Overall the exact cause of her symptomatology is not definitively determine but is not felt as anything serious is the cause at this point in time. It appears she has multiple abdominal issues and should follow-up with her doctor for further treatment. She seems overly concerned regarding receiving pain medications and she is refused any pain medications outpatient zee. She leaves in no identifiable distress. - Lab Data Result diagrams: 10/05/16 13:41 10/05/16 13:41 Lab Results 10/05/16 10/05/16 10/05/16 Range/Units 13:26 13:41 13:41 WBC 9.4 (3.8-10.6) k/uL RBC 3.51 L (3.80-5.40) m/uL Hgb 10.4 L (11.4-16.0) gm/dL Hct 30.7 L (34.0-46.0) % MCV 87.5 (80.0-100.0) fL MCH 29.6 (25.0-35.0) pg MCHC 33.8 (31.0-37.0) g/dL RDW 15.1 (11.5-15.5) % Plt Count 524 H (150-450) k/uL Neutrophils % 57 % Lymphocytes % 31 % Monocytes % 6 % Eosinophils % 3 % Basophils % 0 % Neutrophils # 5.3 (1.3-7.7) k/uL Lymphocytes # 2.9 (1.0-4.8) k/uL Monocytes # 0.5 (0-1.0) k/uL Eosinophils # 0.3 (0-0.7) k/uL Basophils # 0.0 (0-0.2) k/uL PT (9.0-12.0) sec INR (<1.1) APTT (22.0-30.0) sec Sodium 134 L (137-145) mmol/L Potassium 4.8 (3.5-5.1) mmol/L Chloride 100 (98-107) mmol/L Carbon Dioxide 20 L (22-30) mmol/L Anion Gap 14 mmol/L BUN 22 H (7-17) mg/dL Creatinine 0.93 (0.52-1.04) mg/dL Est GFR (MDRD) Af Amer >60 (>60 ml/min/1.73 sqM) Est GFR (MDRD) Non-Af >60 (>60 ml/min/1.73 sqM) Glucose 98 (74-99) mg/dL Plasma Lactic Acid Jeremy (0.7-2.0) mmol/L Calcium 9.4 (8.4-10.2) mg/dL Total Bilirubin 0.7 (0.2-1.3) mg/dL AST 26 (14-36) U/L ALT 22 (9-52) U/L Alkaline Phosphatase 76 (38-126) U/L Total Protein 7.4 (6.3-8.2) g/dL Albumin 4.0 (3.5-5.0) g/dL Amylase 67 (30-110) U/L Lipase 47 (23-300) U/L Urine Color Colorless Urine Appearance Clear (Clear) Urine pH 7.0 (5.0-8.0) Ur Specific [place] 1.000 L (1.001-1.035) Urine Protein Negative (Negative) Urine Glucose (UA) Negative (Negative) Urine Ketones Negative (Negative) Urine Blood Negative (Negative) Urine Nitrite Negative (Negative) Urine Bilirubin Negative (Negative) Urine Urobilinogen <2.0 (<2.0) mg/dL Ur Leukocyte Esterase Negative (Negative) Urine HCG, Qual (Not Detectd) 10/05/16 10/05/16 10/05/16 Range/Units 13:41 13:41 14:40 WBC (3.8-10.6) k/uL RBC (3.80-5.40) m/uL Hgb (11.4-16.0) gm/dL Hct (34.0-46.0) % MCV (80.0-100.0) fL MCH (25.0-35.0) pg MCHC (31.0-37.0) g/dL RDW (11.5-15.5) % Plt Count (150-450) k/uL Neutrophils % % Lymphocytes % % Monocytes % % Eosinophils % % Basophils % % Neutrophils # (1.3-7.7) k/uL Lymphocytes # (1.0-4.8) k/uL Monocytes # (0-1.0) k/uL Eosinophils # (0-0.7) k/uL Basophils # (0-0.2) k/uL PT 10.2 (9.0-12.0) sec INR 1.0 (<1.1) APTT 25.5 (22.0-30.0) sec Sodium (137-145) mmol/L Potassium (3.5-5.1) mmol/L Chloride (98-107) mmol/L Carbon Dioxide (22-30) mmol/L Anion Gap mmol/L BUN (7-17) mg/dL Creatinine (0.52-1.04) mg/dL Est GFR (MDRD) Af Amer (>60 ml/min/1.73 sqM) Est GFR (MDRD) Non-Af (>60 ml/min/1.73 sqM) Glucose (74-99) mg/dL Plasma Lactic Acid Jeremy 1.4 (0.7-2.0) mmol/L Calcium (8.4-10.2) mg/dL Total Bilirubin (0.2-1.3) mg/dL AST (14-36) U/L ALT (9-52) U/L Alkaline Phosphatase (38-126) U/L Total Protein (6.3-8.2) g/dL Albumin (3.5-5.0) g/dL Amylase (30-110) U/L Lipase (23-300) U/L Urine Color Yellow Urine Appearance Clear (Clear) Urine pH 7.5 (5.0-8.0) Ur Specific [place] 1.021 (1.001-1.035) Urine Protein Trace H (Negative) Urine Glucose (UA) Negative (Negative) Urine Ketones Negative (Negative) Urine Blood Negative (Negative) Urine Nitrite Negative (Negative) Urine Bilirubin Negative (Negative) Urine Urobilinogen <2.0 (<2.0) mg/dL Ur Leukocyte Esterase Negative (Negative) Urine HCG, Qual (Not Detectd) 10/05/16 Range/Units 14:48 WBC (3.8-10.6) k/uL RBC (3.80-5.40) m/uL Hgb (11.4-16.0) gm/dL Hct (34.0-46.0) % MCV (80.0-100.0) fL MCH (25.0-35.0) pg MCHC (31.0-37.0) g/dL RDW (11.5-15.5) % Plt Count (150-450) k/uL Neutrophils % % Lymphocytes % % Monocytes % % Eosinophils % % Basophils % % Neutrophils # (1.3-7.7) k/uL Lymphocytes # (1.0-4.8) k/uL Monocytes # (0-1.0) k/uL Eosinophils # (0-0.7) k/uL Basophils # (0-0.2) k/uL PT (9.0-12.0) sec INR (<1.1) APTT (22.0-30.0) sec Sodium (137-145) mmol/L Potassium (3.5-5.1) mmol/L Chloride (98-107) mmol/L Carbon Dioxide (22-30) mmol/L Anion Gap mmol/L BUN (7-17) mg/dL Creatinine (0.52-1.04) mg/dL Est GFR (MDRD) Af Amer (>60 ml/min/1.73 sqM) Est GFR (MDRD) Non-Af (>60 ml/min/1.73 sqM) Glucose (74-99) mg/dL Plasma Lactic Acid Jeremy (0.7-2.0) mmol/L Calcium (8.4-10.2) mg/dL Total Bilirubin (0.2-1.3) mg/dL AST (14-36) U/L ALT (9-52) U/L Alkaline Phosphatase (38-126) U/L Total Protein (6.3-8.2) g/dL Albumin (3.5-5.0) g/dL Amylase (30-110) U/L Lipase (23-300) U/L Urine Color Urine Appearance (Clear) Urine pH (5.0-8.0) Ur Specific [place] (1.001-1.035) Urine Protein (Negative) Urine Glucose (UA) (Negative) Urine Ketones (Negative) Urine Blood (Negative) Urine Nitrite (Negative) Urine Bilirubin (Negative) Urine Urobilinogen (<2.0) mg/dL Ur Leukocyte Esterase (Negative) Urine HCG, Qual Not Detected (Not Detectd) Disposition Clinical Impression: Chronic abdominal pain Disposition: HOME SELF-CARE Condition: Good Instructions: Abdominal Pain (ED) Referrals: Rome Singleton MD [Primary Care Provider] - 1-2 days Time of Disposition: 17:20
[2016-10-05 13:55] LABS: Basophils % (A) 0 %; CH 29.7; CHCM 34.1; Eosinophils # (A) 0.3 k/uL (0-0.7); Eosinophils % (A) 3 %; HCT 30.7 % (34.0-46.0); HDW 2.67; HGB 10.4 gm/dL (11.4-16.0); Luc % (Auto) 3; Lymphocytes # (A) 2.9 k/uL (1.0-4.8); Lymphocytes % (A) 31 %; MCH 29.6 pg (25.0-35.0); MCHC 33.8 g/dL (31.0-37.0); MCV 87.5 fL (80.0-100.0); Monocytes # (A) 0.5 k/uL (0-1.0); Monocytes % (A) 6 %; Neutrophils # (A) 5.3 k/uL (1.3-7.7); Neutrophils % (A) 57 %; RBC 3.51 m/uL (3.80-5.40); RDW 15.1 % (11.5-15.5); WBC 9.4 k/uL (3.8-10.6); WBC (Perox) 9.33
[2016-10-05 14:04] LABS: Partial Thromboplastin Time 25.5 sec (22.0-30.0); Prothrombin Time 10.2 sec (9.0-12.0)
[2016-10-05 14:11] LABS: Amylase 67 U/L (30-110); Anion Gap 14 mmol/L; Calcium 9.4 mg/dL (8.4-10.2); Carbon Dioxide 20 mmol/L (22-30); Chloride 100 mmol/L (98-107); Glucose 98 mg/dL (74-99); Non-African American GFR(MDRD) >60 (>60 ml/min/1.73 sqM); Sodium 134 mmol/L (137-145); Total Bilirubin 0.7 mg/dL (0.2-1.3); Total Protein 7.4 g/dL (6.3-8.2)
[2016-10-05 14:13] LABS: Appearance,Urine Clear (Clear); Bilirubin,Urine Negative (Negative); Glucose,Urine (UA) Negative (Negative); Ketones,Urine Negative (Negative); Leukocyte Esterase,Urine Negative (Negative); Nitrite,Urine Negative (Negative); Protein,Urine Negative (Negative); UA Billing (MACRO vs. MICRO) CHEM; Urobilinogen,Urine <2.0 mg/dL (<2.0)
[2016-10-05 14:20] LABS: AST 26 U/L (14-36); Blood Urea Nitrogen 22 mg/dL (7-17); Potassium 4.8 mmol/L (3.5-5.1)
[2016-10-05 14:21] LABS: ALT 22 U/L (9-52); Alkaline Phosphatase 76 U/L (38-126)
[2016-10-05 15:06] LABS: Appearance,Urine Clear (Clear); Bilirubin,Urine Negative (Negative); Glucose,Urine (UA) Negative (Negative); Ketones,Urine Negative (Negative); Leukocyte Esterase,Urine Negative (Negative); Nitrite,Urine Negative (Negative); PH, Urine 7.5 (5.0-8.0); Protein,Urine Trace (Negative); Specific Gravity,Urine 1.021 (1.001-1.035); UA Billing (MACRO vs. MICRO) CHEM; Urobilinogen,Urine <2.0 mg/dL (<2.0)
[2016-10-05] MEDS ORDERED: METOCLOPRAMIDE 5 MG/ML 2 ML VIAL IVP STA (15:06)
[2016-10-05] MEDS ORDERED: ACETAMINOPHEN IV (For NPO) 1,000 MG in EMPTY BAG 1 BAG IVPB ONE (15:06)
--- NOTE | 2016-10-05 15:53 | CT ---
EXAMINATION TYPE: CT abdomen pelvis w con DATE OF EXAM: 10/05/2016 COMPARISON: 09/13/2016 INDICATION: Right sided mid abdominal pain with nausea and vomiting. DLP: 1695.80 mGycm, Automated exposure control for dose reduction was used. CONTRAST: 100 mL of Omnipaque 300. Study performed without Oral Contrast TECHNIQUE: Axial images were obtained from above the diaphragm to the pubic rami in the axial plane a t 5 mm thick sections. Reconstructed images are reviewed on the computer in the coronal plane. FINDINGS: Limited CT sections are obtained the lung bases. The lung bases are clear. CT ABDOMEN: Liver: Normal Spleen: Normal Pancreas: Normal Adrenal glands: Left adrenal gland is enlarged measuring 1.9 cm. Right adrenal gland is normal. Gallbladder: Surgically absent. Kidneys: No masses are evident. No hydronephrosis is present. No cysts are present. Delayed images were obtained through the kidneys, which remain unremarkable. Aorta: Vascular calcification is within the aorta. Inferior vena cava: Normal. CT PELVIS: Loops of bowel within the abdomen and pelvis are normal. There are loops of bowel which are incom pletely distended or lack oral contrast limiting their evaluation. Appendix: Not identified. No suspicious inflammatory changes are evident. Urinary bladder: Normal. Genitourinary structures: Uterus and adnexal regions appear unremarkable. Osseous structures: No suspicious lytic or sclerotic lesions. There is a sclerotic area within the ri ght iliac wing. Bone island and sclerotic metastatic disease could be considered. This is stable from comparison. IMPRESSIONS: 1. No suspicious acute changes.
== END 2016-10-05 17:38 | disposition home or self-care (01) ==
LOC: EC 12:58
DX: R10.11 Right upper quadrant pain (principal); R10.31 Right lower quadrant pain; G89.29 Other chronic pain; R11.0 Nausea; R19.7 Diarrhea, unspecified; K21.9 Gastro-esophageal reflux disease without esophagitis; E07.9 Disorder of thyroid, unspecified; F32.9 Major depressive disorder, single episode, unspecified; M79.7 Fibromyalgia; G40.909 Epilepsy, unspecified, not intractable, without status epilepticus; F17.200 Nicotine dependence, unspecified, uncomplicated; Z87.19 Personal history of other diseases of the digestive system; Z90.49 Acquired absence of other specified parts of digestive tract; Z88.1 Allergy status to other antibiotic agents; Z88.6 Allergy status to analgesic agent; Z88.5 Allergy status to narcotic agent; Z88.2 Allergy status to sulfonamides; Z88.8 Allergy status to other drugs, medicaments and biological substances; Z79.899 Other long term (current) drug therapy
CPT/HCPCS: 99284; 96374; 96376; 96375 ×2; 96361 ×4; 36415; 80053; 82150; 83605; 83690; 85025; 85610; 85730; 81003; 81025; 74177; J2765; J2405; J1170; Q9967

== ENCOUNTER 2017-04-22 09:27 | Emergency (ER) | payer OTHER ==
[2017-04-22] MEDS ORDERED: LORazepam 2 MG/ML INJ IV STA (10:01)
[2017-04-22 10:10] LABS: Basophils % (A) 0 %; Eosinophils # (A) 0.2 k/uL (0-0.7); Eosinophils % (A) 3 %; HCT 34.7 % (34.0-46.0); HGB 11.1 gm/dL (11.4-16.0); Lymphocytes # (A) 3.7 k/uL (1.0-4.8); Lymphocytes % (A) 41 %; MCH 29.4 pg (25.0-35.0); MCHC 32.1 g/dL (31.0-37.0); MCV 91.7 fL (80.0-100.0); Mean Platelet Volume 7.1; Monocytes # (A) 0.5 k/uL (0-1.0); Monocytes % (A) 6 %; Neutrophils # (A) 4.2 k/uL (1.3-7.7); Neutrophils % (A) 47 %; Platelet Count 392 k/uL (150-450); RBC 3.79 m/uL (3.80-5.40); RDW 13.5 % (11.5-15.5)
[2017-04-22 10:20] LABS: ALT 28 U/L (9-52); AST 14 U/L (14-36); Albumin 3.6 g/dL (3.5-5.0); Alkaline Phosphatase 91 U/L (38-126); Anion Gap 16 mmol/L; Blood Urea Nitrogen 13 mg/dL (7-17); Calcium 9.5 mg/dL (8.4-10.2); Carbon Dioxide 17 mmol/L (22-30); Chloride 104 mmol/L (98-107); Glucose 112 mg/dL (74-99); Potassium 3.8 mmol/L (3.5-5.1); Sodium 137 mmol/L (137-145); Total Bilirubin <0.1 mg/dL (0.2-1.3); Total Protein 6.3 g/dL (6.3-8.2)
[2017-04-22] MEDS ORDERED: DIPH,PERTUS(ACELL)TETVAC-LF 0.5 ML VIAL IM ONE (11:27)
--- NOTE | 2017-04-22 11:45 | CT ---
EXAMINATION TYPE: CT brain wo con DATE OF EXAM: 04/22/2017 COMPARISON: July 08, 2009 HISTORY: seizure today. CT DLP: [address] of the brain was performed. The ventricles, basal cisterns and sulci overlying the cerebral convexities demonstrate a normal appe arance. There is no evidence for intracranial hemorrhage or sulcal effacement. No mass effects are seen. Physiologic calcifications of the basal ganglia noted. Osseous calvarium is intact. If symptoms persist consider MRI as clinically warranted. IMPRESSION: 1. No acute intracranial process is seen at this time.
[2017-04-22] MEDS ORDERED: ACETAMINOPHEN IV (For NPO) 1,000 MG in EMPTY BAG 1 BAG IVPB STA (12:07)
[2017-04-22 12:57] LABS: Appearance,Urine Clear (Clear); Bilirubin,Urine Negative (Negative); Blood,Urine Small (Negative); Color,Urine Yellow; Glucose,Urine (UA) Negative (Negative); Ketones,Urine Negative (Negative); Leukocyte Esterase,Urine Negative (Negative); Mucus,Urine Occasional /hpf; Nitrite,Urine Negative (Negative); Protein,Urine 1+ (Negative); RBC,Urine 1 /hpf (0-5); Specific Gravity,Urine 1.027 (1.001-1.035); Squamous Epithelial Cell,Urine 1 /hpf (0-4); Urobilinogen,Urine <2.0 mg/dL (<2.0); WBC,Urine 4 /hpf (0-5)
[2017-04-22 13:07] LABS: Amphetamine Screen,Urine Not Detected (NotDetected); Barbiturate Screen,Urine Not Detected (NotDetected); Benzodiazepines Screen,Urine Detected (NotDetected); Cocaine Screen,Urine Detected (NotDetected); Methadone Screen, Urine Not Detected (NotDetected); Opiate Screen,Urine Not Detected (NotDetected); Oxycodone Screen, Urine Not Detected (NotDetected); Phencyclidine Screen,Urine Not Detected (NotDetected); Tricyclic Antidepressant,Urine Detected (NotDetected); Urn Cannabinoid Scrn Not Detected (NotDetected)
--- NOTE | 2017-04-22 13:39 | ED ---
General Adult HPI - General Chief complaint: Seizure Stated complaint: Seizure Time Seen by Provider: 04/22/17 10:01 Source: EMS, RN notes reviewed, old records reviewed Mode of arrival: EMS Limitations: no limitations - History of Present Illness Initial comments: Patient's 32-year-old female slipped a past medical history for seizures presents emergency room by EMS, with chief complaint of seizure that occurred earlier today. She does admit that she was up giving water to Justin. States that she had a seizure fell down. States that she woke up she was down on the ground and called EMS. States that prior to their arrival she had another small seizure. She states that she has seen neurologist days ago and had increased her Depakote. States she's taking 3 tabs twice daily. Patient does admit that she is supposed follow back up for repeat lab draw. Patient does admit that she does have generalized body aches and is very sore at this time. She states she does not remember hitting her head. She does admit to a laceration to the right forearm. Patient does admit that she is unsure of her tetanus status. She does admit to pain to the right ankle and foot. She denies any other complaints or symptoms at this time. Patient denies any recent fever, chills, shortness of breath, chest pain, back pain, abdominal pain, nausea or vomiting, dysuria or hematuria, constipation or diarrhea, visual changes, or any other complaints. - Related Data Home Medications Medication Instructions Recorded Confirmed Sertraline HCl [Zoloft] 200 mg PO DAILY 09/24/13 04/22/17 ALPRAZolam [Xanax] 2 mg PO TID PRN 08/02/14 04/22/17 Levothyroxine Sodium [Synthroid] 125 mcg PO QAM 06/05/15 04/22/17 Ranitidine HCl [Zantac] 150 mg PO BID 12/26/15 04/22/17 Simvastatin [Zocor] 20 mg PO HS 12/26/15 04/22/17 Divalproex Sodium [Depakote] 1,500 mg PO BID 04/30/16 04/22/17 Medroxyprogesterone Acetate 150 mg IM Q90D 04/30/16 04/22/17 [Depo-Provera] Omeprazole 20 mg PO BID 04/30/16 04/22/17 Zolpidem [Ambien] 10 mg PO HS 04/30/16 04/22/17 Beclomethasone Dipropionate [Qvar 1 puff INHALATION RT-DAILY PRN 07/19/16 80 mcg] Prochlorperazine [Compazine] 10 mg PO Q6H PRN 09/13/16 04/22/17 Butalb/APAP/Caff 50-325-40Mg 1 tab PO BID PRN 03/09/17 04/22/17 [Fioricet 50-325-40] Ferrous Sulfate [Iron (65 MG 325 mg PO HS 03/09/17 04/22/17 Elemental)] Aspirin/Acetaminophen/Caffeine 2 tab PO Q6H PRN 04/22/17 04/22/17 [Excedrin Extra Strength Caplet] Gabapentin [Neurontin] 800 mg PO TID 04/22/17 04/22/17 Lurasidone HCl [Latuda] 60 mg PO DAILY 04/22/17 04/22/17 QUEtiapine [SEROquel] 100 mg PO DAILY 04/22/17 04/22/17 QUEtiapine [SEROquel] 500 mg PO HS 04/22/17 04/22/17 Allergies Allergy/AdvReac Type Severity Reaction Status Date / Time dicyclomine [From Bentyl] Allergy Severe Hallucinati Verified 04/22/17 10:27 ons granisetron HCl [From Kytril] Allergy Severe Anaphylaxis Verified 04/22/17 10:27 baclofen Allergy Rash/Hives Verified 04/22/17 10:27 butorphanol tartrate Allergy Rash/Hives Verified 04/22/17 10:27 [From Stadol] ketorolac tromethamine Allergy Rash/Hives Verified 04/22/17 10:27 [From Toradol] meperidine HCl [From Demerol] Allergy Swelling Verified 04/22/17 10:27 methocarbamol [From Robaxin] Allergy Unknown Verified 04/22/17 10:27 morphine Allergy Rash/Hives Verified 04/22/17 10:27 sulfamethoxazole Allergy Rash/Hives Verified 04/22/17 10:27 [From Bactrim] trimethoprim [From Bactrim] Allergy Rash/Hives Verified 04/22/17 10:27 codeine AdvReac Vomiting & Verified 04/22/17 10:27 Headache methylprednisolone AdvReac Vomiting & Verified 04/22/17 10:27 [From Medrol] Headache Review of Systems ROS Statement: Those systems with pertinent positive or pertinent negative responses have been documented in the HPI. ROS Other: All systems not noted in ROS Statement are negative. Past Medical History Past Medical History: Asthma, Fibromyalgia, GERD/Reflux, Neurologic Disorder, Seizure Disorder, Thyroid Disorder Additional Past Medical History / Comment(s): crohns disease, diverticulosis, ibs, carpal tunnel, anemia, chronic back pain , migraines, pinched nerves History of Any Multi-Drug Resistant Organisms: None Reported Past Surgical History: Adenoidectomy, Appendectomy, Cholecystectomy, Orthopedic Surgery, Tonsillectomy Additional Past Surgical History / Comment(s): EGD/colonoscopy, right ankle surgery Past Anesthesia/Blood Transfusion Reactions: No Reported Reaction Additional Past Anesthesia/Blood Transfusion Reaction / Comment(s): hallucinations Past Psychological History: Anxiety, Depression Smoking Status: Current every day smoker Past Alcohol Use History: None Reported Past Drug Use History: None Reported - Past Family History Father Family Medical History: Diabetes Mellitus, Hyperlipidemia Mother Family Medical History: Cancer, CVA/TIA, Deep Vein Thrombosis (DVT), Osteoarthritis (OA), Thyroid Disorder Additional Family Medical History / Comment(s): Extensive tattoos throughout body General Exam - General Exam Comments Initial Comments: General: The patient is awake and alert, in no distress, and does not appear acutely ill. Eye: Pupils are equal, round and reactive to light, extra-ocular movements are intact. No nystagmus. There is normal conjunctiva bilaterally. No signs of icterus. Ears, nose, mouth and throat: There are moist mucous membranes and no oral lesions. Neck: The neck is supple, there is no tenderness or JVD. Cardiovascular: There is a regular rate and rhythm. No murmur, rub or gallop is appreciated. Respiratory: Lungs are clear to auscultation, respirations are non-labored, breath sounds are equal. No wheezes, stridor, rales, or rhonchi. Musculoskeletal: Normal ROM. Patient does have tenderness anterior right foot. Strength 5/5. Sensation intact. Pulses equal bilaterally 2+. Neurological: A&O x 3. CN II-XII intact, There are no obvious motor or sensory deficits. Coordination appears grossly intact. Speech is normal. Skin: Laceration to the right forearm at the antecubital joint. Psychiatric: Cooperative, appropriate mood & affect, normal judgment. Limitations: no limitations Course Vital Signs 04/22/17 09:28 Temperature 99.3 F Pulse Rate 112 H Respiratory 22 Rate Blood Pressure 140/92 O2 Sat by Pulse 98 Oximetry Procedures - Procedures Initial comment: 3 cm laceration to the volar aspect of her forearm.The skin was anesthetized with 1% lidocaine. The laceration was then cleansed with and irrigated with normal saline. The wound was inspected, and there was no evidence of injury to deep structures. No foreign body was noted in the wound. A total of 10 skin sutures were placed utilizing 4-0 nylon. Medical Decision Making - Lab Data Result diagrams: 04/22/17 09:39 04/22/17 09:39 Lab Results 04/22/17 04/22/17 04/22/17 Range/Units 09:39 09:39 12:46 WBC 9.0 (3.8-10.6) k/uL RBC 3.79 L (3.80-5.40) m/uL Hgb 11.1 L (11.4-16.0) gm/dL Hct 34.7 (34.0-46.0) % MCV 91.7 (80.0-100.0) fL MCH 29.4 (25.0-35.0) pg MCHC 32.1 (31.0-37.0) g/dL RDW 13.5 (11.5-15.5) % Plt Count 392 (150-450) k/uL Neutrophils % 47 % Lymphocytes % 41 % Monocytes % 6 % Eosinophils % 3 % Basophils % 0 % Neutrophils # 4.2 (1.3-7.7) k/uL Lymphocytes # 3.7 (1.0-4.8) k/uL Monocytes # 0.5 (0-1.0) k/uL Eosinophils # 0.2 (0-0.7) k/uL Basophils # 0.0 (0-0.2) k/uL Sodium 137 (137-145) mmol/L Potassium 3.8 (3.5-5.1) mmol/L Chloride 104 (98-107) mmol/L Carbon Dioxide 17 L (22-30) mmol/L Anion Gap 16 mmol/L BUN 13 (7-17) mg/dL Creatinine 0.90 (0.52-1.04) mg/dL Est GFR (MDRD) Af Amer >60 (>60 ml/min/1.73 sqM) Est GFR (MDRD) Non-Af >60 (>60 ml/min/1.73 sqM) Glucose 112 H (74-99) mg/dL Calcium 9.5 (8.4-10.2) mg/dL Total Bilirubin <0.1 L (0.2-1.3) mg/dL AST 14 (14-36) U/L ALT 28 (9-52) U/L Alkaline Phosphatase 91 (38-126) U/L Total Protein 6.3 (6.3-8.2) g/dL Albumin 3.6 (3.5-5.0) g/dL Urine Color Urine Appearance (Clear) Urine pH (5.0-8.0) Ur Specific [place] (1.001-1.035) Urine Protein (Negative) Urine Glucose (UA) (Negative) Urine Ketones (Negative) Urine Blood (Negative) Urine Nitrite (Negative) Urine Bilirubin (Negative) Urine Urobilinogen (<2.0) mg/dL Ur Leukocyte Esterase (Negative) Urine RBC (0-5) /hpf Urine WBC (0-5) /hpf Ur Squamous Epith Cells (0-4) /hpf Urine Mucus (None) /hpf Urine HCG, Qual (Not Detectd) Urine Opiates Screen Not Detected (NotDetected) Ur Oxycodone Screen Not Detected (NotDetected) Urine Methadone Screen Not Detected (NotDetected) Ur Propoxyphene Screen Not Detected (NotDetected) Ur Barbiturates Screen Not Detected (NotDetected) Valproic Acid 53.0 ug/mL U Tricyclic Antidepress Detected H (NotDetected) Ur Phencyclidine Scrn Not Detected (NotDetected) Ur Amphetamines Screen Not Detected (NotDetected) U Methamphetamines Scrn Not Detected (NotDetected) U Benzodiazepines Scrn Detected H (NotDetected) Urine Cocaine Screen Detected H (NotDetected) U Marijuana (THC) Screen Not Detected (NotDetected) 04/22/17 04/22/17 Range/Units 12:46 12:46 WBC (3.8-10.6) k/uL RBC (3.80-5.40) m/uL Hgb (11.4-16.0) gm/dL Hct (34.0-46.0) % MCV (80.0-100.0) fL MCH (25.0-35.0) pg MCHC (31.0-37.0) g/dL RDW (11.5-15.5) % Plt Count (150-450) k/uL Neutrophils % % Lymphocytes % % Monocytes % % Eosinophils % % Basophils % % Neutrophils # (1.3-7.7) k/uL Lymphocytes # (1.0-4.8) k/uL Monocytes # (0-1.0) k/uL Eosinophils # (0-0.7) k/uL Basophils # (0-0.2) k/uL Sodium (137-145) mmol/L Potassium (3.5-5.1) mmol/L Chloride (98-107) mmol/L Carbon Dioxide (22-30) mmol/L Anion Gap mmol/L BUN (7-17) mg/dL Creatinine (0.52-1.04) mg/dL Est GFR (MDRD) Af Amer (>60 ml/min/1.73 sqM) Est GFR (MDRD) Non-Af (>60 ml/min/1.73 sqM) Glucose (74-99) mg/dL Calcium (8.4-10.2) mg/dL Total Bilirubin (0.2-1.3) mg/dL AST (14-36) U/L ALT (9-52) U/L Alkaline Phosphatase (38-126) U/L Total Protein (6.3-8.2) g/dL Albumin (3.5-5.0) g/dL Urine Color Yellow Urine Appearance Clear (Clear) Urine pH 6.0 (5.0-8.0) Ur Specific [place] 1.027 (1.001-1.035) Urine Protein 1+ H (Negative) Urine Glucose (UA) Negative (Negative) Urine Ketones Negative (Negative) Urine Blood Small H (Negative) Urine Nitrite Negative (Negative) Urine Bilirubin Negative (Negative) Urine Urobilinogen <2.0 (<2.0) mg/dL Ur Leukocyte Esterase Negative (Negative) Urine RBC 1 (0-5) /hpf Urine WBC 4 (0-5) /hpf Ur Squamous Epith Cells 1 (0-4) /hpf Urine Mucus Occasional H (None) /hpf Urine HCG, Qual Not Detected (Not Detectd) Urine Opiates Screen (NotDetected) Ur Oxycodone Screen (NotDetected) Urine Methadone Screen (NotDetected) Ur Propoxyphene Screen (NotDetected) Ur Barbiturates Screen (NotDetected) Valproic Acid ug/mL U Tricyclic Antidepress (NotDetected) Ur Phencyclidine Scrn (NotDetected) Ur Amphetamines Screen (NotDetected) U Methamphetamines Scrn (NotDetected) U Benzodiazepines Scrn (NotDetected) Urine Cocaine Screen (NotDetected) U Marijuana (THC) Screen (NotDetected) Disposition Clinical Impression: Seizure, Laceration Disposition: HOME SELF-CARE Condition: Good Instructions: Laceration (ED) Additional Instructions: Please follow neurologist in the next 1-2 days. Please return to emergency room sooner infection. Please return to the emergency room 10 days to have sutures removed. Please return to emergency room for any other concerns. Referrals: Joan Meeks MD [Primary Care Provider] - 1-2 days Time of Disposition: 13:34
[2017-04-22] MEDS ORDERED: HYDROmorphone 0.5 MG/0.5 ML SYRINGE IVP STA (13:40)
--- NOTE | 2017-04-22 13:50 | XR ---
EXAMINATION TYPE: XR ankle complete RT DATE OF EXAM: 04/22/2017 COMPARISON: 12/26/2015 HISTORY: Pain FINDINGS: Three views of the ankle demonstrate the ankle mortise to be intact and symmetric. The joint spaces are preserved. The osseous structures are intact. Postsurgical changes are stable. IMPRESSION: 1. No definite acute fracture or dislocation, if symptoms persist follow-up study in 7 to 10 days wou ld be suggested.
[2017-04-22 13:57] VITALS: BP 119/81; PULSE 90; RESP 18; TEMP 97.7
== END 2017-04-22 14:25 | disposition home or self-care (01) ==
LOC: EC 09:27
DX: S51.811A Laceration without foreign body of right forearm, initial encounter (principal); G40.909 Epilepsy, unspecified, not intractable, without status epilepticus; M25.571 Pain in right ankle and joints of right foot; M79.7 Fibromyalgia; K21.9 Gastro-esophageal reflux disease without esophagitis; E07.9 Disorder of thyroid, unspecified; D64.9 Anemia, unspecified; F32.9 Major depressive disorder, single episode, unspecified; F41.9 Anxiety disorder, unspecified; F17.200 Nicotine dependence, unspecified, uncomplicated; Z23 Encounter for immunization; Z53.20 Procedure and treatment not carried out because of patient's decision for unspecified reasons; Z88.6 Allergy status to analgesic agent; Z88.5 Allergy status to narcotic agent; Z88.2 Allergy status to sulfonamides; Z88.8 Allergy status to other drugs, medicaments and biological substances; Z79.3 Long term (current) use of hormonal contraceptives; Z79.899 Other long term (current) drug therapy; W19.XXXA Unspecified fall, initial encounter
CPT/HCPCS: 36415; 80164; 80053; 85025; 81001; 81025; 80306; 73610; 70450; 90715; 99285; 12002; 90471; 96374; 96375; J2060; J1170

== ENCOUNTER 2017-04-24 20:32 | Observation (INO) | payer OTHER ==
[2017-04-24] MEDS ORDERED: LORazepam 2 MG/ML INJ IV STA (21:15)
[2017-04-24] MEDS ORDERED: IBUPROFEN 600 MG TAB PO STA (21:16)
[2017-04-24] MEDS ORDERED: ACETAMINOPHEN TAB 500 MG TAB PO STA ×2 (21:16→22:28)
--- NOTE | 2017-04-24 21:27 | ED ---
General Adult HPI - General Chief complaint: Seizure Stated complaint: Seizure Time Seen by Provider: 04/24/17 20:35 Source: patient, family, EMS, RN notes reviewed Mode of arrival: EMS Limitations: no limitations - History of Present Illness Initial comments: This is a 32-year-old female presents emergency department with past medical history significant for seizures. Patient was here a few days ago for breakthrough seizures. Patient had no seizures yesterday but again had 4 today. Patient did fall this time hurt her right foot and hit her head she is complaining of a headache. Patient denies any upper extremity pain. Patient denies any chest pain palpitations difficulty breathing or shortness of breath. Patient was unaware that she had low-grade fever. Patient denies any recent cough. Patient denies any nausea vomiting diarrhea. Patient denies any abdominal pain. Patient denies any dysuria hematuria urinary frequency. - Related Data Home Medications Medication Instructions Recorded Confirmed Sertraline HCl [Zoloft] 200 mg PO DAILY 09/24/13 04/22/17 ALPRAZolam [Xanax] 2 mg PO TID PRN 08/02/14 04/22/17 Levothyroxine Sodium [Synthroid] 125 mcg PO QAM 06/05/15 04/22/17 Ranitidine HCl [Zantac] 150 mg PO BID 12/26/15 04/22/17 Simvastatin [Zocor] 20 mg PO HS 12/26/15 04/22/17 Divalproex Sodium [Depakote] 1,500 mg PO BID 04/30/16 04/22/17 Medroxyprogesterone Acetate 150 mg IM Q90D 04/30/16 04/22/17 [Depo-Provera] Omeprazole 20 mg PO BID 04/30/16 04/22/17 Zolpidem [Ambien] 10 mg PO HS 04/30/16 04/22/17 Beclomethasone Dipropionate [Qvar 1 puff INHALATION RT-DAILY PRN 07/19/16 80 mcg] Prochlorperazine [Compazine] 10 mg PO Q6H PRN 09/13/16 04/22/17 Butalb/APAP/Caff 50-325-40Mg 1 tab PO BID PRN 03/09/17 04/22/17 [Fioricet 50-325-40] Ferrous Sulfate [Iron (65 MG 325 mg PO HS 03/09/17 04/22/17 Elemental)] Aspirin/Acetaminophen/Caffeine 2 tab PO Q6H PRN 04/22/17 04/22/17 [Excedrin Extra Strength Caplet] Gabapentin [Neurontin] 800 mg PO TID 04/22/17 04/22/17 Lurasidone HCl [Latuda] 60 mg PO DAILY 04/22/17 04/22/17 QUEtiapine [SEROquel] 100 mg PO DAILY 04/22/17 04/22/17 QUEtiapine [SEROquel] 500 mg PO HS 04/22/17 04/22/17 Allergies Allergy/AdvReac Type Severity Reaction Status Date / Time dicyclomine [From Bentyl] Allergy Severe Hallucinati Verified 04/24/17 20:42 ons granisetron HCl [From Kytril] Allergy Severe Anaphylaxis Verified 04/24/17 20:42 baclofen Allergy Rash/Hives Verified 04/24/17 20:42 butorphanol tartrate Allergy Rash/Hives Verified 04/24/17 20:42 [From Stadol] ketorolac tromethamine Allergy Rash/Hives Verified 04/24/17 20:42 [From Toradol] meperidine HCl [From Demerol] Allergy Swelling Verified 04/24/17 20:42 methocarbamol [From Robaxin] Allergy Unknown Verified 04/24/17 20:42 morphine Allergy Rash/Hives Verified 04/24/17 20:42 sulfamethoxazole Allergy Rash/Hives Verified 04/24/17 20:42 [From Bactrim] trimethoprim [From Bactrim] Allergy Rash/Hives Verified 04/24/17 20:42 codeine AdvReac Vomiting & Verified 04/24/17 20:42 Headache methylprednisolone AdvReac Vomiting & Verified 04/24/17 20:42 [From Medrol] Headache Review of Systems ROS Statement: Those systems with pertinent positive or pertinent negative responses have been documented in the HPI. ROS Other: All systems not noted in ROS Statement are negative. Past Medical History Past Medical History: Asthma, Fibromyalgia, GERD/Reflux, Neurologic Disorder, Seizure Disorder, Thyroid Disorder Additional Past Medical History / Comment(s): crohns disease, diverticulosis, ibs, carpal tunnel, anemia, chronic back pain , migraines, pinched nerves History of Any Multi-Drug Resistant Organisms: None Reported Past Surgical History: Adenoidectomy, Appendectomy, Cholecystectomy, Orthopedic Surgery, Tonsillectomy Additional Past Surgical History / Comment(s): EGD/colonoscopy, right ankle surgery Past Anesthesia/Blood Transfusion Reactions: No Reported Reaction Additional Past Anesthesia/Blood Transfusion Reaction / Comment(s): hallucinations Past Psychological History: Anxiety, Depression Smoking Status: Current every day smoker Past Alcohol Use History: None Reported Past Drug Use History: None Reported - Past Family History Father Family Medical History: Diabetes Mellitus, Hyperlipidemia Mother Family Medical History: Cancer, CVA/TIA, Deep Vein Thrombosis (DVT), Osteoarthritis (OA), Thyroid Disorder Additional Family Medical History / Comment(s): Extensive tattoos throughout body General Exam - General Exam Comments Initial Comments: GENERAL: Patient is well-developed and well-nourished. Patient is nontoxic and well- hydrated and is in mild distress. ENT: Neck is soft and supple. No significant lymphadenopathy is noted. Oropharynx is clear. Moist mucous membranes. Neck has full range of motion without eliciting any pain. EYES: The sclera were anicteric and conjunctiva were pink and moist. Extraocular movements were intact and pupils were equal round and reactive to light. Eyelids were unremarkable. PULMONARY: Unlabored respirations. Good breath sounds bilaterally. No audible rales rhonchi or wheezing was noted. CARDIOVASCULAR: There is a regular rate and rhythm without any murmurs gallops or rubs. ABDOMEN: Soft and nontender with normal bowel sounds. SKIN: Skin is clear with no lesions or rashes and otherwise unremarkable. NEUROLOGIC: Patient is alert and oriented x3. Cranial nerves II through XII are grossly intact. Motor and sensory are also intact. Normal speech, volume and content. Symmetrical smile. MUSCULOSKELETAL: Normal extremities with adequate strength and full range of motion. Right foot has a bruise at the distal fourth MTP joint LYMPHATICS: No significant lymphadenopathy is noted PSYCHIATRIC: Normal psychiatric evaluation. Normal interpersonal interactions appears functionally intact in deals appropriately with others. Limitations: no limitations Course Vital Signs 04/24/17 04/24/17 04/24/17 20:37 21:40 22:36 Temperature 100.5 F H 98.5 F Pulse Rate 120 H 124 H 108 H Respiratory 20 20 16 Rate Blood Pressure 143/97 136/84 118/74 O2 Sat by Pulse 97 94 L 95 Oximetry Medical Decision Making - Medical Decision Making EKG shows sinus tachycardia 115 bpm FL interval is 154 QRS is 70 QT interval 340 QTC is 470. Patient's EKG shows no ST segment elevation or depression or T wave abnormalities are noted. When I went in to evaluate the patient she started twitching in the head a full blown grand mal seizure which lasted about 1 minute. We gave her 1 of Ativan. Patient will be started on Levaquin because of the possible pneumonia. Patient' s lactic is elevated but she is post ictal 5 seizures today. I don't believe she is septic at this time. - Lab Data Result diagrams: 04/24/17 20:51 04/24/17 20:51 Lab Results 04/24/17 04/24/17 04/24/17 Range/Units 20:50 20:51 20:51 WBC 12.4 H (3.8-10.6) k/uL RBC 3.60 L (3.80-5.40) m/uL Hgb 10.8 L (11.4-16.0) gm/dL Hct 33.0 L (34.0-46.0) % MCV 91.6 (80.0-100.0) fL MCH 30.0 (25.0-35.0) pg MCHC 32.8 (31.0-37.0) g/dL RDW 14.8 (11.5-15.5) % Plt Count 368 (150-450) k/uL Neutrophils % 76 % Lymphocytes % 14 % Monocytes % 8 % Eosinophils % 1 % Basophils % 0 % Neutrophils # 9.4 H (1.3-7.7) k/uL Lymphocytes # 1.7 (1.0-4.8) k/uL Monocytes # 1.0 (0-1.0) k/uL Eosinophils # 0.1 (0-0.7) k/uL Basophils # 0.0 (0-0.2) k/uL PT (9.0-12.0) sec INR (<1.2) APTT (22.0-30.0) sec Sodium 138 (137-145) mmol/L Potassium 3.8 (3.5-5.1) mmol/L Chloride 103 (98-107) mmol/L Carbon Dioxide 21 L (22-30) mmol/L Anion Gap 14 mmol/L BUN 11 (7-17) mg/dL Creatinine 0.80 (0.52-1.04) mg/dL Est GFR (MDRD) Af Amer >60 (>60 ml/min/1.73 sqM) Est GFR (MDRD) Non-Af >60 (>60 ml/min/1.73 sqM) Glucose 133 H (74-99) mg/dL Plasma Lactic Acid Jeremy (0.7-2.0) mmol/L Calcium 9.3 (8.4-10.2) mg/dL Total Bilirubin <0.1 L (0.2-1.3) mg/dL AST 12 L (14-36) U/L ALT 22 (9-52) U/L Alkaline Phosphatase 105 (38-126) U/L Total Protein 6.2 L (6.3-8.2) g/dL Albumin 3.4 L (3.5-5.0) g/dL Urine Color Urine Appearance (Clear) Urine pH (5.0-8.0) Ur Specific [place] (1.001-1.035) Urine Protein (Negative) Urine Glucose (UA) (Negative) Urine Ketones (Negative) Urine Blood (Negative) Urine Nitrite (Negative) Urine Bilirubin (Negative) Urine Urobilinogen (<2.0) mg/dL Ur Leukocyte Esterase (Negative) Valproic Acid 28.1 ug/mL Influenza Type A RNA (Not Detectd) Influenza Type B (PCR) (Not Detectd) 04/24/17 04/24/17 04/24/17 Range/Units 20:51 20:51 20:51 WBC (3.8-10.6) k/uL RBC (3.80-5.40) m/uL Hgb (11.4-16.0) gm/dL Hct (34.0-46.0) % MCV (80.0-100.0) fL MCH (25.0-35.0) pg MCHC (31.0-37.0) g/dL RDW (11.5-15.5) % Plt Count (150-450) k/uL Neutrophils % % Lymphocytes % % Monocytes % % Eosinophils % % Basophils % % Neutrophils # (1.3-7.7) k/uL Lymphocytes # (1.0-4.8) k/uL Monocytes # (0-1.0) k/uL Eosinophils # (0-0.7) k/uL Basophils # (0-0.2) k/uL PT 9.3 (9.0-12.0) sec INR 0.9 (<1.2) APTT 23.0 (22.0-30.0) sec Sodium (137-145) mmol/L Potassium (3.5-5.1) mmol/L Chloride (98-107) mmol/L Carbon Dioxide (22-30) mmol/L Anion Gap mmol/L BUN (7-17) mg/dL Creatinine (0.52-1.04) mg/dL Est GFR (MDRD) Af Amer (>60 ml/min/1.73 sqM) Est GFR (MDRD) Non-Af (>60 ml/min/1.73 sqM) Glucose (74-99) mg/dL Plasma Lactic Acid [place] 3.6 H* (0.7-2.0) mmol/L Calcium (8.4-10.2) mg/dL Total Bilirubin (0.2-1.3) mg/dL AST (14-36) U/L ALT (9-52) U/L Alkaline Phosphatase (38-126) U/L Total Protein (6.3-8.2) g/dL Albumin (3.5-5.0) g/dL Urine Color Urine Appearance (Clear) Urine pH (5.0-8.0) Ur Specific [place] (1.001-1.035) Urine Protein (Negative) Urine Glucose (UA) (Negative) Urine Ketones (Negative) Urine Blood (Negative) Urine Nitrite (Negative) Urine Bilirubin (Negative) Urine Urobilinogen (<2.0) mg/dL Ur Leukocyte Esterase (Negative) Valproic Acid ug/mL Influenza Type A RNA Not Detected (Not Detectd) Influenza Type B (PCR) Not Detected (Not Detectd) 04/24/17 Range/Units 21:31 WBC (3.8-10.6) k/uL RBC (3.80-5.40) m/uL Hgb (11.4-16.0) gm/dL Hct (34.0-46.0) % MCV (80.0-100.0) fL MCH (25.0-35.0) pg MCHC (31.0-37.0) g/dL RDW (11.5-15.5) % Plt Count (150-450) k/uL Neutrophils % % Lymphocytes % % Monocytes % % Eosinophils % % Basophils % % Neutrophils # (1.3-7.7) k/uL Lymphocytes # (1.0-4.8) k/uL Monocytes # (0-1.0) k/uL Eosinophils # (0-0.7) k/uL Basophils # (0-0.2) k/uL PT (9.0-12.0) sec INR (<1.2) APTT (22.0-30.0) sec Sodium (137-145) mmol/L Potassium (3.5-5.1) mmol/L Chloride (98-107) mmol/L Carbon Dioxide (22-30) mmol/L Anion Gap mmol/L BUN (7-17) mg/dL Creatinine (0.52-1.04) mg/dL Est GFR (MDRD) Af Amer (>60 ml/min/1.73 sqM) Est GFR (MDRD) Non-Af (>60 ml/min/1.73 sqM) Glucose (74-99) mg/dL Plasma Lactic Acid [place] (0.7-2.0) mmol/L Calcium (8.4-10.2) mg/dL Total Bilirubin (0.2-1.3) mg/dL AST (14-36) U/L ALT (9-52) U/L Alkaline Phosphatase (38-126) U/L Total Protein (6.3-8.2) g/dL Albumin (3.5-5.0) g/dL Urine Color Yellow Urine Appearance Clear (Clear) Urine pH 6.0 (5.0-8.0) Ur Specific [place] 1.021 (1.001-1.035) Urine Protein Trace H (Negative) Urine Glucose (UA) Negative (Negative) Urine Ketones 1+ H (Negative) Urine Blood Negative (Negative) Urine Nitrite Negative (Negative) Urine Bilirubin Negative (Negative) Urine Urobilinogen <2.0 (<2.0) mg/dL Ur Leukocyte Esterase Negative (Negative) Valproic Acid ug/mL Influenza Type A RNA (Not Detectd) Influenza Type B (PCR) (Not Detectd) Disposition Clinical Impression: Status epilepticus, Pneumonia Disposition: ADMITTED IP TO THIS HOSP Time of Disposition: 22:29
[2017-04-24] MEDS ORDERED: SODIUM CHLORIDE 0.9% 500 ML IV SCH (21:30)
[2017-04-24 21:36] LABS: Basophils % (A) 0 %; Eosinophils # (A) 0.1 k/uL (0-0.7); Eosinophils % (A) 1 %; HGB 10.8 gm/dL (11.4-16.0); Lymphocytes # (A) 1.7 k/uL (1.0-4.8); Lymphocytes % (A) 14 %; MCHC 32.8 g/dL (31.0-37.0); MCV 91.6 fL (80.0-100.0); Mean Platelet Volume 7.8; Monocytes % (A) 8 %; Neutrophils # (A) 9.4 k/uL (1.3-7.7); Neutrophils % (A) 76 %; Platelet Count 368 k/uL (150-450); RDW 14.8 % (11.5-15.5); WBC 12.4 k/uL (3.8-10.6)
[2017-04-24 21:40] LABS: Appearance,Urine Clear (Clear); Bilirubin,Urine Negative (Negative); Blood,Urine Negative (Negative); Color,Urine Yellow; Glucose,Urine (UA) Negative (Negative); Ketones,Urine 1+ (Negative); Leukocyte Esterase,Urine Negative (Negative); Protein,Urine Trace (Negative); Specific Gravity,Urine 1.021 (1.001-1.035); Urobilinogen,Urine <2.0 mg/dL (<2.0)
[2017-04-24 21:47] LABS: ALT 22 U/L (9-52); AST 12 U/L (14-36); Albumin 3.4 g/dL (3.5-5.0); Alkaline Phosphatase 105 U/L (38-126); Anion Gap 14 mmol/L; Blood Urea Nitrogen 11 mg/dL (7-17); Calcium 9.3 mg/dL (8.4-10.2); Carbon Dioxide 21 mmol/L (22-30); Chloride 103 mmol/L (98-107); Glucose 133 mg/dL (74-99); Potassium 3.8 mmol/L (3.5-5.1); Sodium 138 mmol/L (137-145); Total Bilirubin <0.1 mg/dL (0.2-1.3); Total Protein 6.2 g/dL (6.3-8.2)
[2017-04-24 21:51] LABS: INR 0.9 (<1.2); Prothrombin Time 9.3 sec (9.0-12.0)
--- NOTE | 2017-04-24 22:10 | CT ---
EXAMINATION TYPE: CT brain ana lauraine wo con DATE OF EXAM: 04/24/2017 COMPARISON: Head 04/22/2017 HISTORY: 32-year-old female with pain, Multiple seizures today. CT DLP: 1318.0 mGycm Automated exposure control for dose reduction was used. Technique: Examination of the head was done in axial plane without intravenous contrast. Coronal and sagittal reconstructions performed. CT of the cervical spine was obtained in axial plane without intravenous injection of contrast mater ial. Coronal and sagittal reformatted images were obtained from the axial views for evaluation of f ractures, spinal alignment and canal. FINDINGS: Head: There is no evidence of acute intracranial hemorrhage, acute ischemic changes, mass, mass-effect, or extra-axial fluid collection. There is no effacement of cerebral sulci or basal subarachnoid cister ns. There is no hydrocephalus. There is no midline shift. Cook-white matter distinction is preserv ed. Faint benign basal ganglia calcifications are redemonstrated. Mastoid air cells are well pneumatized. Orbits and globes are intact. Trace mucosal thickening right sphenoid sinus. Cervical spine: The alignment of the cervical spine is normal on coronal and reformatted images. There is no cranial vertebral abnormality. Fracture of the cervical spine is not seen. Assessment of the spinal canal fro m C4 and below is limited due to artifact from the patient's shoulders. No significant neuroforaminal stenosis seen. Sagittal and coronal reformatted images confirm above findings. COMBINED IMPRESSION: 1. No acute intracranial abnormality seen. 2. No acute fracture or malalignment of the cervical spine.
--- NOTE | 2017-04-24 22:11 | XR ---
EXAMINATION TYPE: XR chest 2V DATE OF EXAM: 04/24/2017 COMPARISON: 03/09/2017 HISTORY: 32-year-old female with fever TECHNIQUE: Frontal and lateral views FINDINGS: The cardiomediastinal silhouette, aorta, and pulmonary vasculature are within normal limits. Some mil d patchy left suprahilar density. No other consolidation or pleural effusion seen. IMPRESSION: Some patchy left suprahilar atelectasis or early pneumonia.
--- NOTE | 2017-04-24 22:14 | XR ---
EXAMINATION TYPE: XR ankle complete 3 views LT, XR foot complete 3 views RT DATE OF EXAM: 04/24/2017 COMPARISON: NONE HISTORY: 32-year-old female with left ankle and right foot pain FINDINGS: Left ankle: There is a 6 mm corticated bone fragment below the lateral malleolus. Os trigonum. Bony spurring gómez g the medial margin of the medial malleolus. Ankle mortise remains congruent with preservation of the distal tibiofibular overlap. Talar dome is intact. No acute fracture, subluxation, or dislocation. Right foot: Mild degenerative spurring at the first MTP joint. Bimalleolar ankle fixation is evident. Tiny os per oneum noted. No acute fracture or dislocation. IMPRESSION: 1. Left ankle: A 6 mm chronic ununited fracture fragment below the lateral malleolus. Focal bony spur ring at the medial malleolus may contribute to posterior tibial tendon dysfunction. No acute osseous and amount is seen. 2. Right foot: Partially visualized bimalleolar ankle fixation. Mild first MTP OA. No acute osseous a bnormality seen.
[2017-04-24] MEDS ORDERED: cefTRIAXone IN SWFI 1,000 MG/10 ML SYRINGE IVP STA (22:25)
[2017-04-24] MEDS ORDERED: KETOROLAC 60 MG/2 ML VIAL IVP STA (22:27)
[2017-04-24] MEDS ORDERED: AZITHROMYCIN 500 MG in SODIUM CHLORIDE 0.9% 250 ML IVPB STA (22:29)
[2017-04-24] MEDS ORDERED: PNEUMONIA PROTOCOL UTILIZED 1 EACH MISC PO PRN (22:29)
[2017-04-24] MEDS ORDERED: ACETAMINOPHEN TAB 325 MG TAB PO PRN (22:36)
[2017-04-24] MEDS ORDERED: LORazepam 2 MG/ML INJ IV PRN (22:36)
[2017-04-24] MEDS ORDERED: HYDROmorphone 0.5 MG/0.5 ML SYRINGE IVP STA ×2 (23:09)
[2017-04-24] MEDS ORDERED: VALPROATE SODIUM 1,000 MG in SODIUM CHLORIDE 0.9% 50 ML IVPB STA (23:36)
[2017-04-25] MEDS ORDERED: BECLOMETHASONE DIP 80 MCG/PUFF INHALER INHALATION PRN (00:27)
[2017-04-25] MEDS ORDERED: PROCHLORPERAZINE 10 MG TAB PO PRN (00:27)
[2017-04-25 00:38] VITALS: BMI 38.2
[2017-04-25] MEDS: BUTALB/APAP/CAFF 50-325-40MG TAB PO PRN ×2 (00:43→19:58)
[2017-04-25] MEDS: SODIUM CHLORIDE 0.9% 1,000 ML IV SCH ×3 (02:01→18:17)
[2017-04-25] MEDS: PIPERACILLIN-TAZOBACTAM 3.375 GM in DEXTROSE/WATER 1 50ML.BAG IVPB SCH ×4 (02:24→23:59)
[2017-04-25] MEDS: HYDROmorphone 0.5 MG/0.5 ML SYRINGE IVP PRN ×4 (02:43→21:15)
[2017-04-25 04:48] LABS: Amphetamine Screen,Urine Not Detected (NotDetected); Barbiturate Screen,Urine Detected (NotDetected); Benzodiazepines Screen,Urine Detected (NotDetected); Cocaine Screen,Urine Detected (NotDetected); Methadone Screen, Urine Not Detected (NotDetected); Opiate Screen,Urine Detected (NotDetected); Oxycodone Screen, Urine Not Detected (NotDetected); Phencyclidine Screen,Urine Not Detected (NotDetected); Tricyclic Antidepressant,Urine Detected (NotDetected); Urn Cannabinoid Scrn Not Detected (NotDetected)
--- NOTE | 2017-04-25 07:11 | XR ---
EXAMINATION TYPE: XR chest 2V DATE OF EXAM: 04/25/2017 HISTORY: pneumonia. REFERENCE: Previous study dated 04/24/2017. FINDINGS: The lungs appear clear at this time. Pleural spaces are clear. The heart is not enlarged. IMPRESSION: NO SIGNIFICANT INTRATHORACIC ABNORMALITY.
[2017-04-25] MEDS: GABAPENTIN 400 MG CAP PO SCH ×3 (08:16→21:14)
[2017-04-25] MEDS: PANTOPRAZOLE 40 MG TABLET PO SCH ×2 (08:16→21:14)
[2017-04-25] MEDS: FAMOTIDINE 20 MG TAB PO SCH ×2 (08:17→21:15)
[2017-04-25] MEDS: DIVALPROEX 500 MG TABLET.DR PO SCH ×2 (08:17→21:15)
[2017-04-25] MEDS: LURASIDONE 40 MG TAB PO SCH (08:18)
[2017-04-25] MEDS: LEVOTHYROXINE 125 MCG TAB PO SCH (08:18)
[2017-04-25] MEDS: SERTRALINE 100 MG TAB PO SCH (08:19)
--- NOTE | 2017-04-25 10:11 | HP ---
HISTORY AND PHYSICAL DATE OF SERVICE: 04/25/2017 CHIEF COMPLAINTS: Seizures. HISTORY OF PRESENT ILLNESS: This 32-year-old woman with a past medical history of multiple medical problems including seizure disorder, history of Crohn disease was previously admitted with syncope, hypotension secondary to dehydration and medication induced. The patient also had a chronic pain syndrome and as well as irritable bowel syndrome also. The patient has seizures. The patient had at least 5 seizures, generalized tonic-clonic. Patient unable to remember anything. The patient's mother reported the seizure episodes. Apparently there was not any injury; on one episode incontinence was noted, no other injury was noted. Patient admitted for further evaluation. Neurology evaluation in progress at this time. Patient also was suspected to have pneumonia in the left lower lobe as well. Mild fever was also noted. There is no history of any hemoptysis, hematochezia or melena at this time. The patient is followed by Dr. Joan Meeks and as well as Dr. Bonilla from neurology point of view. PAST MEDICAL HISTORY: History of seizure disorder, history of Crohn's, history of chronic pain syndrome. MEDICATIONS: Medications prior to admission, home medications: 1. Omeprazole 20 mg p.o. b.i.d. 2. Synthroid 125 mcg p.o. q.a.m. 3. Iron sulfate 320 mg q.h.s. 4. Depo-Provera 150 mg q.90 days. 5. Xanax 2 mg p.o. t.i.d. p.r.n. 6. Fioricet 1 tab p.o. t.i.d. p.r.n. 7. QVAR 1 puff daily. 8. Latuda 60 mg p.o. daily. 9. Neurontin 800 mg p.o. t.i.d. 10.Depakote 2000 mg p.o. b.i.d. 11.Seroquel 100 mg p.o. daily and 500 mg p.o. q.h.s. 12.Compazine 10 mg q.6h p.r.n. 13.Zoloft 200 mg p.o. daily. 14.Zantac 150 mg p.o. b.i.d. 15.Ambien 10 mg q.h.s. 16.Zocor 10 mg q.h.s. 17.Excedrin 2 tablets q.6h p.r.n. ALLERGIES: BENTYL, KRILL OIL, BACLOFEN, STADOL, TORADOL, DEMEROL, ROBAXIN, MORPHINE, BACTRIM, CODEINE, AND MEDROL. FAMILY HISTORY: History of multiple cancers, CVA, DVT, DJD, history of thyroid disease. SOCIAL HISTORY: History of smoking. No history of alcohol. REVIEW OF SYSTEMS: ENT: No diminished hearing or vision. CARDIOVASCULAR: No angina. RESPIRATORY: No cough. GI: As mentioned earlier. : No dysuria. NERVOUS SYSTEM: No numbness or weakness. ALLERGY/IMMUNOLOGY: As mentioned earlier. MUSCULOSKELETAL: As mentioned earlier. HEMATOLOGY/ONCOLOGY: No history of anemia. ENDOCRINE: No history of diabetes or hypothyroidism. CONSTITUTIONAL: As mentioned earlier. DERMATOLOGY: Negative. RHEUMATOLOGY: Negative. PSYCHIATRY: As mentioned earlier. PHYSICAL EXAMINATION: Alert and oriented x3. Pulse is 108, blood pressure 118/77, respirations 16, temp 98.4, pulse ox 94% room air. HEENT: Conjunctivae normal. Oral mucosa moist. NECK: No jugular venous distention. No carotid bruit. No lymph node enlargement. CARDIOVASCULAR: S1, S2. No S3, no S4. RESPIRATORY: Breath sounds diminished in the bases. A few scattered rhonchi. No crackles. ABDOMEN: Soft, nontender. No mass palpable. LEGS: No edema, no swelling. NERVOUS SYSTEM: Higher functions as mentioned. Cranial 2-12 grossly intact. Moves all 4 limbs. No focal motor signs. LYMPHATICS: No lymphadenopathy in the neck or axillae. SKIN: No ulcer, rash or bleeding. LAB STUDIES: Hemoglobin 10.8, glucose 133, plasma lactic acid 3.6. Influenza is negative. Valproic acid is 28.1. ASSESSMENT: 1. Generalized tonic-clonic seizures and status epilepticus and with breakthrough seizures. 2. Left lung pneumonia possibly aspiration pneumonia. 3. Increased WBC. 4. Anemia. 5. Increased plasma lactic acid from dehydration and as well as seizures. 6. History of fibromyalgia. 7. History of asthma. 8. History of chronic pain syndrome. 9. History of neurogenic disorder. 10.History of hypothyroidism. 11.History of Crohn disease. 12.History of irritable bowel syndrome. 13.History of migraine. 14.Adenoidectomy. 15.History of cholecystectomy. 16.History of anxiety and depression. 17.History nicotine dependence. RECOMMENDATIONS AND DISCUSSION: This 32-year-old woman who presented with multiple complex medical issues, will monitor the patient closely. Continue the current management and symptomatic treatment. Will initiate broad-spectrum IV antibiotics. I recommend IV Zosyn and I would also recommend a neurology consultation. The valproic acid is being given at this time. Otherwise continue the rest of the medications. Avoid seizure lowering medications. Guarded prognosis because of multiple complex medical issues. Copy forwarded to Dr. Joan Meeks who is the primary physician. MMODL / IJN: [id number] / MTDD
--- NOTE | 2017-04-25 13:22 | P.CNNES ---
History of Present Illness Consult date: 04/25/17 Requesting physician: Marly Maurer Reason for Consult: Status epilepticus History of Present Illness: Patient is a pleasant 32-year-old female who is being evaluated by the neurology service on 04/25/2017 per the request of Dr. Maurer for status epilepticus. Patient has a history of seizure disorder, Crohn's disease, chronic pain syndrome, migraines, and mood disorder. Patient reports having increased seizures over the last week. Patient was just here at [facility] few days ago for seizure with a fall requiring sutures to her right forearm. Patient denies missing any doses of antiepileptic medication. She is currently on Depakote 2000 mg twice a day and Neurontin 800 mg 3 times a day in the home setting. Patient states she was brought to [facility] because she had 5 seizures yesterday. Patient states seizures are generalized tonic-clonic type. Patient describes postictal state. Patient was admitted for further evaluation. Vital signs on admission were temperature 100.5, pulse rate 120, respiratory rate 20, blood pressure 143/97, and oxygen saturation 97% on room air. Labs were WBC 12.4, RBC 3.6, hemoglobin 10.8, hematocrit 33.0. BUN 11, and creatinine 0.80. Plasma lactic acid elevated at 3.6. Depakote level was 28.1. Urine toxicology report revealed positive for opiates, barbiturates, tricyclic antidepressants, benzodiazepines, and cocaine. Chest x-ray revealed patchy left suprahilar atelectasis or early pneumonia. CT of the head showed no evidence of any acute process. CT of the cervical spine showed no acute fracture or malalignment. At the time of my evaluation, patient is resting comfortably in bed and appears to be in no acute distress. No further seizures since admission. Review of Systems REVIEW OF SYSTEMS: Otherwise unremarkable and noncontributory. Past Medical History Past Medical History: Asthma, Fibromyalgia, GERD/Reflux, Neurologic Disorder, Seizure Disorder, Thyroid Disorder Additional Past Medical History / Comment(s): crohns disease, diverticulosis, ibs, carpal tunnel, anemia, chronic back pain , migraines, pinched nerves History of Any Multi-Drug Resistant Organisms: None Reported Past Surgical History: Adenoidectomy, Appendectomy, Cholecystectomy, Orthopedic Surgery, Tonsillectomy Additional Past Surgical History / Comment(s): EGD/colonoscopy, right ankle surgery Past Anesthesia/Blood Transfusion Reactions: No Reported Reaction Additional Past Anesthesia/Blood Transfusion Reaction / Comment(s): hallucinations Past Psychological History: Anxiety, Depression Smoking Status: Current every day smoker Past Alcohol Use History: None Reported Past Drug Use History: None Reported - Past Family History Father Family Medical History: Diabetes Mellitus, Hyperlipidemia Mother Family Medical History: Cancer, CVA/TIA, Deep Vein Thrombosis (DVT), Osteoarthritis (OA), Thyroid Disorder Additional Family Medical History / Comment(s): Extensive tattoos throughout body Medications and Allergies Home Medications Medication Instructions Recorded Confirmed Type Sertraline HCl [Zoloft] 200 mg PO DAILY 09/24/13 04/25/17 History ALPRAZolam [Xanax] 2 mg PO TID PRN 08/02/14 04/25/17 History Levothyroxine Sodium [Synthroid] 125 mcg PO QAM 06/05/15 04/25/17 History Ranitidine HCl [Zantac] 150 mg PO BID 12/26/15 04/25/17 History Simvastatin [Zocor] 20 mg PO HS 12/26/15 04/25/17 History Divalproex Sodium [Depakote] 2,000 mg PO BID 04/30/16 04/25/17 History Medroxyprogesterone Acetate 150 mg IM Q90D 04/30/16 04/25/17 History [Depo-Provera] Omeprazole 20 mg PO BID 04/30/16 04/25/17 History Zolpidem [Ambien] 10 mg PO HS 04/30/16 04/25/17 History Beclomethasone Dipropionate [Qvar 1 puff INHALATION RT-DAILY PRN 07/19/16 History 80 mcg] Prochlorperazine [Compazine] 10 mg PO Q6H PRN 09/13/16 04/25/17 History Butalb/APAP/Caff 50-325-40Mg 1 tab PO BID PRN 03/09/17 04/25/17 History [Fioricet 50-325-40] Ferrous Sulfate [Iron (65 MG 325 mg PO HS 03/09/17 04/25/17 History Elemental)] Aspirin/Acetaminophen/Caffeine 2 tab PO Q6H PRN 04/22/17 04/25/17 History [Excedrin Extra Strength Caplet] Gabapentin [Neurontin] 800 mg PO TID 04/22/17 04/25/17 History Lurasidone HCl [Latuda] 60 mg PO DAILY 04/22/17 04/25/17 History QUEtiapine [SEROquel] 100 mg PO DAILY 04/22/17 04/25/17 History QUEtiapine [SEROquel] 500 mg PO HS 04/22/17 04/25/17 History Allergies Allergy/AdvReac Type Severity Reaction Status Date / Time dicyclomine [From Bentyl] Allergy Severe Hallucinati Verified 04/25/17 09:04 ons granisetron HCl [From Kytril] Allergy Severe Anaphylaxis Verified 04/25/17 09:04 baclofen Allergy Rash/Hives Verified 04/25/17 09:04 butorphanol tartrate Allergy Rash/Hives Verified 04/25/17 09:04 [From Stadol] ketorolac tromethamine Allergy Rash/Hives Verified 04/25/17 09:04 [From Toradol] meperidine HCl [From Demerol] Allergy Swelling Verified 04/25/17 09:04 methocarbamol [From Robaxin] Allergy Unknown Verified 04/25/17 09:04 morphine Allergy Rash/Hives Verified 04/25/17 09:04 sulfamethoxazole Allergy Rash/Hives Verified 04/25/17 09:04 [From Bactrim] trimethoprim [From Bactrim] Allergy Rash/Hives Verified 04/25/17 09:04 codeine AdvReac Vomiting & Verified 04/25/17 09:04 Headache methylprednisolone AdvReac Vomiting & Verified 04/25/17 09:04 [From Medrol] Headache Physical Examination - Vital Signs Vital Signs: Vital Signs Temp Pulse Pulse Resp BP BP Pulse Ox 04/25/17 08:00 96 18 04/25/17 07:00 97.9 F 96 18 112/68 98 04/24/17 23:58 108 H 20 116/65 98 04/24/17 22:36 98.5 F 108 H 16 118/74 95 04/24/17 21:40 124 H 20 136/84 94 L 04/24/17 20:37 100.5 F H 120 H 20 143/97 97 Intake and Output 04/24/17 04/25/17 04/25/17 22:59 06:59 14:59 Other: # Voids 1 1 Weight 104.326 kg PHYSICAL EXAM: GENERAL APPEARANCE: Patient is a well-developed, female who appears to be in no acute distress. HEENT: Normocephalic, atraumatic, no facial asymmetry is seen. Neck is supple with no masses felt. CARDIOVASCULAR: Regular rate and rhythm. ABDOMEN: Nontender, nondistended. EXTREMITIES: Show no edema or clubbing. NEUROLOGICAL EXAM: Patient is awake, alert, and oriented 3. Speech and language are normal. Strength is full in all 4 extremities. Sensory exam to light touch is normal in all 4 extremities. No facial asymmetry is seen on cranial nerve testing. No tremors or seizure-like activity noted. Results - Laboratory Findings CBC and BMP: 04/24/17 20:51 04/24/17 20:51 Abnormal Lab Findings: Abnormal Labs 04/24/17 04/24/17 04/24/17 20:51 20:51 20:51 WBC 12.4 H RBC 3.60 L Hgb 10.8 L Hct 33.0 L Neutrophils # 9.4 H Carbon Dioxide 21 L Glucose 133 H Plasma Lactic Acid Jeremy 3.6 H* Total Bilirubin <0.1 L AST 12 L Total Protein 6.2 L Albumin 3.4 L Urine Protein Urine Ketones Urine Opiates Screen Ur Barbiturates Screen U Tricyclic Antidepress U Benzodiazepines Scrn Urine Cocaine Screen 04/24/17 04/25/17 04/25/17 21:31 01:15 04:05 WBC RBC Hgb Hct Neutrophils # Carbon Dioxide Glucose Plasma Lactic Acid Jeremy 2.8 H* Total Bilirubin AST Total Protein Albumin Urine Protein Trace H Urine Ketones 1+ H Urine Opiates Screen Detected H Ur Barbiturates Screen Detected H U Tricyclic Antidepress Detected H U Benzodiazepines Scrn Detected H Urine Cocaine Screen Detected H Assessment and Plan (1) Pneumonia Current Visit: Yes Status: Acute Code(s): J18.9 - PNEUMONIA, UNSPECIFIED ORGANISM SNOMED Code(s): 618547566 (2) Status epilepticus Current Visit: Yes Status: Acute Code(s): G40.901 - EPILEPSY, UNSP, NOT INTRACTABLE, WITH STATUS EPILEPTICUS SNOMED Code(s): 508885611 (3) Acute colitis Current Visit: No Status: Acute Code(s): K52.9 - NONINFECTIVE GASTROENTERITIS AND COLITIS, UNSPECIFIED SNOMED Code(s): 457019661 Plan: Recommendations: It appears patient has been having increased seizure activity over the last few days. Patient reports she's been compliant with her antiepileptic medication, however, her urine drug screen reveals cocaine which may have contributed to increased seizure activity. Patient was given a bolus dose of Depakote 1000 mg and repeat Depakote level is 39.2. I will give her another bolus of Depakote 750 mg IV piggyback. Recheck Depakote level in the a.m. I will order an EEG. I will consult psychiatry for drug abuse. I had a lengthy conversation with the patient regarding drug abuse and seizure increase. I advised her according to [place] law she is not to drive for 6 months following a seizure and only then she can drive if she has been seizure- free. Continue current medical management for pneumonia. Continue neurological checks. Continue seizure precautions. I will continue to follow with you. Further recommendations to follow. Thank you for allowing me to participate in the care of your patient. Feel free to call with any questions or concerns. I performed an examination of the patient and discussed the management with the PROCESS ENVIRONMENTAL TECHNICIAN. I have reviewed the PROCESS ENVIRONMENTAL TECHNICIAN notes and agree with the findings and plan of care.
[2017-04-25] MEDS ORDERED: VALPROATE SODIUM 750 MG in SODIUM CHLORIDE 0.9% 50 ML IVPB ONE (14:00)
[2017-04-25] MEDS: LORazepam 0.5 MG TAB PO PRN ×2 (14:52→21:16)
--- NOTE | 2017-04-25 18:50 | PN ---
PROGRESS NOTE DATE OF SERVICE: 04/25/2017 This 32-year-old woman who was admitted with seizure disorder and status epilepticus is being closely monitored. Patient was suspected to have aspiration pneumonia also. The patient also had a positive for cocaine on the drug screen. No chest pain. No palpitation, headaches. No seizures currently. Neurology evaluating the patient, dose being adjusted at this time. EXAM: Alert and oriented times three. Pulse 104, blood pressure 118/75, respiratory 20, temperature 97.9, pulse ox 94% on room air. HEENT: Conjunctivae normal. NECK: No jugular venous distention. Cardiovascular systems: S1, S2 muffled. Respiration : Breath sounds diminished in the bases. A few rhonchi. No crackles. Abdomen is soft, nontender. Legs are no edema, no swelling. Central nervous system: No focal deficits. LABS: WBC 12.2, hemoglobin 10.8. Otherwise, lactic acid 2.8 and drug screen positive benzodiazepines, cocaine. Tricyclics, and opiates. Influenza negative. ASSESSMENT: 1. Generalized tonic-clonic seizures and status epilepticus and with breakthrough seizures. 2. Left lower pneumonia possibly aspiration pneumonia. 3. Increased WBC. 4. Anemia. 5. Positive cocaine in the drug screen. 6. Increased plasma lactic acid from dehydration as well seizures. 7. History of fibromyalgia. 8. History of asthma. 9. History of chronic pain syndrome. 10.History of neurogenic bladder. 11.History of hypothyroidism. 12.History of Crohn's disease. 13.History of irritable bowel syndrome. 14.History of migraines. 15.History of adenoidectomy. 16.History of cholecystectomy. 17.History of anxiety, depression. 18.History of nicotine dependence. RECOMMENDATIONS AND DISCUSSION: Recommend to continue current medications, continue with monitoring, symptomatic treatment. Otherwise, at this time, I would recommend continue with antiepileptic antiseizure medications. Otherwise I would also recommend DVT prophylaxis. Empiric antibiotics. Otherwise, increase ambulation. Neurology input appreciated. Guarded prognosis because of multiple complex medical issues. Further recommendations to follow. MMODL / IJN: [id number] / MTDD
[2017-04-25] MEDS ORDERED: cefTRIAXone IN SWFI 1,000 MG/10 ML SYRINGE IVP SCH (21:00)
[2017-04-25] MEDS ORDERED: QUEtiapine 100 MG TAB PO SCH (21:00)
[2017-04-25] MEDS ORDERED: FERROUS SULFATE 325 MG TAB PO SCH (21:00)
[2017-04-25] MEDS ORDERED: ATORVASTATIN 10 MG TAB PO SCH (21:00)
[2017-04-25] MEDS ORDERED: RX INFO: IV CONTRAST WAS GIVEN 1 EACH MISC MISCELLANE PRN (21:40)
[2017-04-25] MEDS ORDERED: IOHEXOL 350 MG/ML 25 ML BOTTLE (ORAL USE) PO PRN (21:40)
[2017-04-25] MEDS ORDERED: AZITHROMYCIN 500 MG TAB PO SCH (22:00)
[2017-04-26 04:56] VITALS: RESP 18
[2017-04-26 07:37] LABS: Basophils % (A) 1 %; Eosinophils # (A) 0.2 k/uL (0-0.7); Eosinophils % (A) 4 %; HCT 31.9 % (34.0-46.0); HGB 9.8 gm/dL (11.4-16.0); Lymphocytes # (A) 1.9 k/uL (1.0-4.8); Lymphocytes % (A) 33 %; MCH 28.9 pg (25.0-35.0); MCHC 30.8 g/dL (31.0-37.0); MCV 93.8 fL (80.0-100.0); Mean Platelet Volume 7.1; Monocytes # (A) 0.5 k/uL (0-1.0); Monocytes % (A) 8 %; Neutrophils % (A) 51 %; Platelet Count 369 k/uL (150-450); RDW 13.5 % (11.5-15.5); WBC 5.9 k/uL (3.8-10.6)
[2017-04-26 07:59] LABS: Anion Gap 9 mmol/L; Blood Urea Nitrogen 7 mg/dL (7-17); Calcium 8.9 mg/dL (8.4-10.2); Carbon Dioxide 22 mmol/L (22-30); Chloride 110 mmol/L (98-107); Creatine Kinase 48 U/L (30-135); Glucose 98 mg/dL (74-99); Potassium 3.9 mmol/L (3.5-5.1); Sodium 141 mmol/L (137-145)
[2017-04-26 08:46] VITALS: BP 113/78; PULSE 101; TEMP 99.1
--- NOTE | 2017-04-26 09:22 | CT ---
EXAMINATION TYPE: CT abdomen pelvis w con DATE OF EXAM: 04/26/2017 COMPARISON: 03/15/2017 HISTORY: 32-year-old female with fever and right lower quadrant abdominal pain. Patient complains of head and ankle pain. Recent seizure. TECHNIQUE: Contiguous axial scanning of the abdomen and pelvis following administration of 100 ml Omn ipaque 300 IV contrast. Delayed images through the kidneys and coronal/sagittal reconstructions perf ormed. Patient refused oral contrast. CT DLP: 1530.9 mGycm Automated exposure control for dose reduction was used. FINDINGS: Heart normal size with trace pericardial fluid. Some minimal hazy left basilar opacity, likely a atel ectasis. Liver enlarged measuring 22.0 cm craniocaudal. No focal liver lesion. No biliary ductal dilatation. P ortal venous system appears patent. Cholecystectomy clips. 2 cm indeterminate nodule left adrenal gland. On the prior 03/15/2017 noncontrast study, attenuation was around 11 Hounsfield units. Right adrenal gland, kidneys, spleen, and pancreas appear within normal limits. Some prominent fluid-filled small bowel loops and the mid abdomen. No dilated small bowel, free fluid , or free air. No mesenteric or retroperitoneal lymphadenopathy. Moderate stool right hemicolon. No pericolonic inflammatory change. While the appendix is not visuali zed, no abnormal dilated tubular fluid-filled structure is seen within the right lower quadrant. Bladder urine distended. Uterus and ovaries are visualized. Trace cul-de-sac free fluid likely physio logic. No pelvic lymphadenopathy seen. Bones: No osseous destructive process. IMPRESSION: 1. SOME PROMINENT FLUID-FILLED SMALL BOWEL LOOPS IN THE MIDABDOMEN COULD REPRESENT MILD ILEUS OR ENTE RITIS. 2. HEPATOMEGALY (22 CM). CLINICALLY CORRELATE. 3. INDETERMINATE 2 CM LEFT ADRENAL GLAND NODULE. STATISTICALLY, THIS REPRESENTS A BENIGN ADRENAL RADHA MONY. A ONE-YEAR FOLLOW-UP CAN BE PERFORMED TO ENSURE STABILITY. 4. TRACE CUL-DE-SAC FREE FLUID LIKELY PHYSIOLOGIC.
--- NOTE | 2017-04-26 09:57 | CONS ---
CONSULTATION DATE OF SERVICE: 04/25/2017 REASON FOR CONSULTATION: Fever and infection. HISTORY OF PRESENT ILLNESS: The patient is a 32-year-old female who presented to the ER at [facility] on April, with chief complaints of breakthrough seizure. The patient apparently did have a fall while having the seizure and hurt her right foot and right heel area and the patient complaining of some headache. On arrival to the ER, the patient noticed to have a low-grade fever. However, the patient denies herself any high-grade fever, rigors or chills. She had been complaining of some headache, but no URI symptoms. No runny nose or sore throat. No chest pain. No shortness of breath or cough. She has been complaining of some vague right lower abdominal area pain for the last 2 days, more of a dull aching, 4 to 5 out of 10 and no radiation. Some significant pain has been in bilateral heel area, mostly on the right side for which the patient did have x- rays. No definite fracture. The patient was started on Zosyn and Levaquin for possibility of pneumonia and ID was consulted for further recommendation regarding antibiotic therapy. The patient did have a fever initially of 100.5; however, is afebrile since then. On arrival to the ER, the patient did have elevated white count of 12.4. Lactic acid was elevated at 3.6 down to 2. Influenza serology was negative. Urine drug screen positive for benzos, cocaine, opiate and barbiturates. Chest x-ray with left suprahilar opacity and repeat x-ray this morning with no significant intrathoracic abnormality. REVIEW OF SYSTEMS: CONSTITUTIONAL: Positive for weakness and low grade fever. EYES: No complaint. ENT: No complaint. RESPIRATORY: No complaint. CARDIOVASCULAR: No complaint. GENITOURINARY: No complaint. GASTROINTESTINAL: As per HPI. MUSCULOSKELETAL: As per HPI. INTEGUMENTARY: No complaint. PSYCHOLOGICAL: No complaint. ENDOCRINE: No complaint. NEUROLOGICAL: As per HPI. PAST MEDICAL HISTORY: Significant for asthma, fibromyalgia, gastroesophageal reflux disease, seizure disorder, hypothyroidism, Crohn disease, diverticulosis, carpal tunnel, chronic back pain, migraine headache. PAST SURGICAL HISTORY: Adenoidectomy, appendectomy, cholecystectomy, tonsillectomy, EGD, colonoscopy, and right ankle surgery. SOCIAL HISTORY: Current every day smoker. No drinking or drug use. FAMILY HISTORY: Father with history of diabetes and hyperlipidemia. Mother history of CVA, TIA, cancer. ALLERGIES: Allergies include multiple medication including to BENTYL, TORADOL, DEMEROL, ROBAXIN, BACTRIM, CODEINE, mostly with a rash. MEDICATION: Medications include the patient is currently on Tylenol, Fioricet, Lipitor, Zithromax, Depakote, Pepcid, iron sulfate, Synthroid, Ativan, piperacillin tazobactam, Compazine, Seroquel, Zoloft. PHYSICAL EXAMINATION: On examination, blood pressure is 119/75 with a pulse of 104, temperature of 97.9, T- max 100.5. She is 95% on room air. General description is a middle aged female lying in bed in no distress. No tachypnea or accessory muscle of respiration use. HEENT examination shows pallor, no scleral icterus. Oral mucous membrane is dry. No pharyngeal erythema or thrush NECK: Trachea central, no thyromegaly. LUNGS: Unlabored breathing, clear to auscultation anteriorly. No wheeze or crackle. HEART: S1, S2. Regular rate and rhythm. No murmur ABDOMEN: Soft, minimally tender right lower quadrant area. No guarding. No rigidity. No organomegaly. EXTREMITIES: No edema of feet. Examination of bilateral ankle area currently with no swelling, no redness. No skin breakdown/. NEUROLOGICAL: Patient is awake, alert, oriented x3. Mood and affect normal. Speech normal LABS: Hemoglobin is 10.8, white count 12.4. BUN of 11, creatinine 0.80. Electrolytes have been normal. Liver enzymes are normal. Lactic acid elevated at 3.6. Urine is negative. DIAGNOSTIC IMPRESSION AND PLAN: Patient admitted to the hospital with breakthrough seizures in a patient also had a low- grade fever. Did have elevated white count with elevated lactic acid. Now with complaint of abdominal pain on admission, would like to make sure there is no evidence of any intraabdominal pathology responsible for her fever, elevated white count , sepsis as no other clinical focus of infection. Clinically doubt pneumonia as patient has no respiratory symptoms. UA has been negative and no evidence of any cellulitis. PLAN: 1. We will obtain a CT of abdomen and pelvis with oral and IV contrast. 2. Zosyn 3.375 g every 8 hours while awaiting further workup to completed. 3. I will discontinue Zithromax, as clinically doubt pneumonia 4. We will follow up on the clinical condition as well as cultures to further adjust medication if needed. Thank you for this consultation. Will follow this patient along with you. ANNALEE / SCOTT: [id number] / MTDD
[2017-04-26] MEDS: PIPERACILLIN-TAZOBACTAM 3.375 GM in DEXTROSE/WATER 1 50ML.BAG IVPB SCH (10:08)
[2017-04-26] MEDS: GABAPENTIN 400 MG CAP PO SCH (10:08)
[2017-04-26] MEDS: HYDROmorphone 0.5 MG/0.5 ML SYRINGE IVP PRN (10:08)
[2017-04-26] MEDS: FAMOTIDINE 20 MG TAB PO SCH (10:09)
[2017-04-26] MEDS: DIVALPROEX 500 MG TABLET.DR PO SCH (10:09)
[2017-04-26] MEDS: LEVOTHYROXINE 125 MCG TAB PO SCH (10:09)
[2017-04-26] MEDS: LURASIDONE 40 MG TAB PO SCH (10:10)
[2017-04-26] MEDS: SERTRALINE 100 MG TAB PO SCH (10:10)
[2017-04-26] MEDS: PANTOPRAZOLE 40 MG TABLET PO SCH (10:10)
--- NOTE | 2017-04-26 14:55 | PN ---
PROGRESS NOTE DATE OF SERVICE: 04/26/2017. REASON FOR FOLLOWUP VISIT: Fever, questionable viral. INTERVAL HISTORY: The patient is afebrile. She has been feeling better. She was seen on rounds this morning. No chest pain or cough. Appetite has slightly improved. She did have some diarrhea, but she states is chronic for her. EXAMINATION: Blood pressure 113/72 with a pulse of 101, temperature of 99.1, saturating 97% on room air. She is a middle-aged female up in the bed, up in no distress RESPIRATORY SYSTEM: Unlabored breathing, clear to auscultation. HEART: S1, S2. Regular rate and rhythm. ABDOMEN: Soft, no tenderness. LABS: Hemoglobin 9.8, white count 5.9, BUN of 7, creatinine 0.75. Culture has been negative. CT was showing some enteritis, but no abscess. DIAGNOSTIC IMPRESSION AND PLAN: Patient with low-grade fever in the hospital with a seizure and a fall with no clear focus of any bacterial infection. White count is normal. Culture negative. Antibiotic can be safely discontinued. And watch the patient closely off antibiotics. Continue supportive care. MMODL / IJN: [id number] / AYUSH
--- NOTE | 2017-04-26 17:54 | EEG ---
ELECTROENCEPHALOGRAM REPORT DATE OF SERVICE: 04/26/2017. REASON FOR TESTING: Seizure. CURRENT ANTIEPILEPTIC MEDICATIONS: Depakote and Neurontin. DESCRIPTION OF THE PROCEDURE: This EEG was performed using a 21 channel digital electroencephalograph, following international 10-20 system. DESCRIPTION OF THE RECORDING: From the beginning of the tracing, and with patient's eyes closed, the background rhythm was mostly consisting of 8 hertz alpha frequency in the posterior occipital leads. If no obvious asymmetry is seen. Frequent movement artifact and muscle artifacts are noticed. Occasional blink artifacts are seen. Photic stimulation was performed with a minimal driving response seen. No pathological waves were elicited. Hyperventilation was not performed. The patient remains awake throughout the tracing. No epileptiform discharges were seen. Her EKG lead showed a regular rate and rhythm. INTERPRETATION: This awake EEG can be considered within normal limits. There was no asymmetry seen. No epileptiform discharges were noticed. The absence of epileptiform discharges does not rule out the diagnosis of epilepsy, therefore clinical correlation is recommended. MMCARMENL / IJN: [id number] /
--- NOTE | 2017-04-27 10:32 | DS ---
DISCHARGE SUMMARY DATE OF SERVICE: 04/26/2017. FINAL DIAGNOSES: 1. Generalized tonic-clonic seizures, status post status epilepticus and breakthrough seizures. 2. Left lower lobe pneumonia, possibly aspiration pneumonia, improved. 3. Increased WBC. 4. Anemia. 5. Positive cocaine drug screen. 6. Increased plasma lactic acid from dehydration and anesthesia. 7. History of fibromyalgia. DISCHARGE DISPOSITION: The patient will be discharged in a stable condition with guarded prognosis. Discharged cleared by multiple conflicts. HISTORY OF PRESENT ILLNESS: This 32-year-old woman with a past history of multiple medical problems, was admitted with generalized tonic clonic seizures. Patient treated symptomatically. Dr. Louise saw the patient, possibly noncompliance also. Was noted the abdominal CAT scan did not show acute abnormality. The patient will be discharged in a stable condition with guarded prognosis. On exam, vitals are stable. CARDIOVASCULAR: S1, S2. ABDOMEN: Soft. NERVOUS SYSTEM: No focal deficits. 1. Diet is cardiac. 2. Activity limited until followup. MEDICATIONS ARE: 1. Aspirin. 2. Acetaminophen p.r.n. for headache. 3. Beclomethasone QR 8.7 mg p.r.n. 4. Fioricet 1 tablet b.i.d. p.r.n. 5. Depakote 2000 mg p.o. b.i.d. 6. Iron sulfate 325 mg p.o. q.h.s. 7. Neurontin 800 mg p.o. t.i.d. 8. Synthroid 100 mcg p.o. q.a.m. 9. Ativan 0.5 mg q.6 p.r.n. 10.Latuda 60 mg p.o. daily. 11.Medroxyprogesterone 50 mg IM q.90 days. 12.Omeprazole 20 mg p.o. b.i.d. 13.Compazine 10 mg q.6 p.r.n. 14.Seroquel 100 mg p.o. daily and 500 mg q.h.s. 15.Zantac 150 mg p.o. b.i.d. 16.Zoloft 200 mg p.o. daily. 17.Zocor 10 mg q.h.s. 18.Ambien 10 mg q.h.s. 19. MMODL / IJN: [id number] /
== END 2017-04-26 12:30 | disposition home or self-care (01) ==
LOC: EC 20:32 → INTOOBSV 22:29 → 5MS5E 22:29 → UNDODISIN 04-26 12:30
PROVIDERS: ADMIT Internal Medicine; ATTEND Internal Medicine
DX: G40.401 Other generalized epilepsy and epileptic syndromes, not intractable, with status epilepticus (principal); K50.90 Crohn's disease, unspecified, without complications; I95.9 Hypotension, unspecified; S09.90XA Unspecified injury of head, initial encounter; N31.9 Neuromuscular dysfunction of bladder, unspecified; D64.9 Anemia, unspecified; E03.9 Hypothyroidism, unspecified; E86.0 Dehydration; F17.200 Nicotine dependence, unspecified, uncomplicated; G89.4 Chronic pain syndrome; J45.909 Unspecified asthma, uncomplicated; K21.9 Gastro-esophageal reflux disease without esophagitis; M79.7 Fibromyalgia; F32.9 Major depressive disorder, single episode, unspecified; F41.9 Anxiety disorder, unspecified; G43.909 Migraine, unspecified, not intractable, without status migrainosus; J18.9 Pneumonia, unspecified organism; Z71.51 Drug abuse counseling and surveillance of drug abuser; M79.672 Pain in left foot; M79.671 Pain in right foot; R10.31 Right lower quadrant pain; K57.90 Diverticulosis of intestine, part unspecified, without perforation or abscess without bleeding; M54.9 Dorsalgia, unspecified; F14.90 Cocaine use, unspecified, uncomplicated; G56.00 Carpal tunnel syndrome, unspecified upper limb; K52.9 Noninfective gastroenteritis and colitis, unspecified; Z79.899 Other long term (current) drug therapy; Z79.3 Long term (current) use of hormonal contraceptives; Z79.51 Long term (current) use of inhaled steroids; Z88.1 Allergy status to other antibiotic agents; Z88.5 Allergy status to narcotic agent; Z88.8 Allergy status to other drugs, medicaments and biological substances; Z90.49 Acquired absence of other specified parts of digestive tract; W19.XXXA Unspecified fall, initial encounter; Z98.890 Other specified postprocedural states
CPT/HCPCS: 96376 ×2; 96366; 96367; 96365; 96375; 99285; 36415; 94760; 95816; 93005; 80164 ×2; 80053; 80048; 82550; 83605 ×3; 85025 ×2; 85610; 85730; 81003; 87040 ×2; 80306; 87086; 87502; 73610; 73630; 71046 ×2; 72125; 70450; 74177; G0378 ×3; J2060 ×2; J0456; J0696; J1885; J2543 ×2; Q9967; J1170 ×3; 96361

== ENCOUNTER → 2017-05-04 | Outpatient (CLI) | payer OTHER | END | disposition home or self-care (01) | LOC: LABWHC1 08:43 | PROVIDERS: ATTEND Psychiatry & Neurology Neurology | DX: G40.909 Epilepsy, unspecified, not intractable, without status epilepticus (principal) | CPT/HCPCS: 36415; 80164 ==

== ENCOUNTER 2017-06-23 11:14 | Emergency (ER) | payer OTHER ==
[2017-06-23 11:22] VITALS: TEMP 97
[2017-06-23] MEDS ORDERED: KETOROLAC 30 MG/ML 1 ML VIAL IVP STA (12:21)
[2017-06-23] MEDS ORDERED: MORPHINE SULFATE/PF 10MG/10ML VL IVP STA ×2 (12:21→15:22)
[2017-06-23] MEDS ORDERED: SODIUM CHLORIDE 0.9% 1,000 ML IV ONE (12:21)
[2017-06-23] MEDS ORDERED: diphenhydrAMINE 50 MG/ML 1 ML VIAL IVP STA (12:27)
[2017-06-23] MEDS ORDERED: SODIUM CHLORIDE 0.9% 1,000 ML IV SCH (12:30)
[2017-06-23 12:42] LABS: ALT 42 U/L (9-52); AST 37 U/L (14-36); Albumin 3.7 g/dL (3.5-5.0); Alkaline Phosphatase 96 U/L (38-126); Amylase 80 U/L (30-110); Anion Gap 12 mmol/L; Blood Urea Nitrogen 13 mg/dL (7-17); Calcium 9.4 mg/dL (8.4-10.2); Carbon Dioxide 22 mmol/L (22-30); Chloride 104 mmol/L (98-107); Glucose 96 mg/dL (74-99); Lipase 99 U/L (23-300); Potassium 4.4 mmol/L (3.5-5.1); Sodium 138 mmol/L (137-145); Total Bilirubin 0.4 mg/dL (0.2-1.3); Total Protein 6.7 g/dL (6.3-8.2)
[2017-06-23 13:08] LABS: Basophils % (A) 0 %; Eosinophils # (A) 0.1 k/uL (0-0.7); Eosinophils % (A) 2 %; HCT 35.5 % (34.0-46.0); HGB 11.9 gm/dL (11.4-16.0); Lymphocytes # (A) 2.7 k/uL (1.0-4.8); Lymphocytes % (A) 36 %; MCH 29.5 pg (25.0-35.0); MCHC 33.6 g/dL (31.0-37.0); Monocytes # (A) 0.5 k/uL (0-1.0); Monocytes % (A) 7 %; Neutrophils # (A) 3.9 k/uL (1.3-7.7); Neutrophils % (A) 53 %; Platelet Count 390 k/uL (150-450); RBC 4.05 m/uL (3.80-5.40); RDW 14.6 % (11.5-15.5); WBC 7.5 k/uL (3.8-10.6)
[2017-06-23 13:12] LABS: MCV 87.8 fL (80.0-100.0)
[2017-06-23 13:14] LABS: Appearance,Urine Clear (Clear); Bilirubin,Urine Negative (Negative); Blood,Urine Negative (Negative); Color,Urine Yellow; Glucose,Urine (UA) Negative (Negative); Ketones,Urine Negative (Negative); Leukocyte Esterase,Urine Negative (Negative); Nitrite,Urine Negative (Negative); Protein,Urine Negative (Negative); Specific Gravity,Urine 1.018 (1.001-1.035); Urobilinogen,Urine <2.0 mg/dL (<2.0)
--- NOTE | 2017-06-23 13:59 | XR ---
EXAMINATION TYPE: XR KUB DATE OF EXAM: 06/23/2017 1:50 PM CLINICAL HISTORY: Abdominal pain with nausea and vomiting. TECHNIQUE: Two Upright KUB images of the abdomen are obtained. COMPARISON: CT abdomen and pelvis April 26, 2017. FINDINGS: Scattered gas is seen in non-distended stomach and small bowel loops. Gas and fecal materia l is seen in non-distended colon and rectum. Cholecystectomy clips are redemonstrated. There is no pn eumoperitoneum or suspicious calcification. Lung bases are clear. Visualized osseous structures are i ntact. IMPRESSION: Overall nonobstructive bowel gas pattern.
--- NOTE | 2017-06-23 14:17 | ED ---
Abdominal Pain HPI - General Chief Complaint: Abdominal Pain Stated Complaint: Abd Pain Time Seen by Provider: 06/23/17 11:52 Source: patient, EMS, RN notes reviewed, old records reviewed Mode of arrival: EMS Limitations: no limitations - History of Present Illness Initial Comments: This is a 32-year-old female presents emergency department for area EMS chief complaint of left upper quadrant abdominal pain. She states it feels like it's her at pancreatitis acting up again. Patient states that she's had normal urination or bowel habits. Denies any significant vomiting but feels nauseated. Patient states that she's had no chest pain shortness of breath. No fevers. Surgical history includes cholecystectomy, appendectomy. MD Complaint: abdominal pain - Related Data Home Medications Medication Instructions Recorded Confirmed Sertraline HCl [Zoloft] 200 mg PO DAILY 09/24/13 06/23/17 Levothyroxine Sodium [Synthroid] 125 mcg PO QAM 06/05/15 06/23/17 Ranitidine HCl [Zantac] 150 mg PO BID 12/26/15 06/23/17 Simvastatin [Zocor] 20 mg PO HS 12/26/15 06/23/17 Divalproex Sodium [Depakote] 2,000 mg PO BID 04/30/16 06/23/17 Medroxyprogesterone Acetate 150 mg IM Q90D 04/30/16 06/23/17 [Depo-Provera] Omeprazole 20 mg PO BID 04/30/16 06/23/17 Zolpidem [Ambien] 10 mg PO HS 04/30/16 06/23/17 Beclomethasone Dipropionate [Qvar 1 puff INHALATION RT-DAILY PRN 07/19/16 80 mcg] Prochlorperazine [Compazine] 10 mg PO Q6H PRN 09/13/16 06/23/17 Ferrous Sulfate [Iron (65 MG 325 mg PO HS 03/09/17 06/23/17 Elemental)] Gabapentin [Neurontin] 800 mg PO TID 04/22/17 06/23/17 Lurasidone HCl [Latuda] 60 mg PO DAILY 04/22/17 06/23/17 QUEtiapine [SEROquel] 100 mg PO DAILY 04/22/17 06/23/17 QUEtiapine [SEROquel] 500 mg PO HS 04/22/17 06/23/17 ALPRAZolam [Xanax] 2 mg PO TID PRN 06/23/17 06/23/17 HYDROcodone/APAP 10-325MG [Chandler 1 tab PO Q4-6H PRN 06/23/17 06/23/17 10-325] Previous Rx's Medication Instructions Recorded Ondansetron Odt [Zofran Odt] 4 mg PO Q8HR PRN #12 tab 06/23/17 Sucralfate [Carafate] 1 gm PO ACHS #30 tablet 06/23/17 Allergies Allergy/AdvReac Type Severity Reaction Status Date / Time dicyclomine [From Bentyl] Allergy Severe Hallucinati Verified 06/23/17 11:32 ons granisetron HCl [From Kytril] Allergy Severe Anaphylaxis Verified 06/23/17 11:32 baclofen Allergy Rash/Hives Verified 06/23/17 11:32 butorphanol tartrate Allergy Rash/Hives Verified 06/23/17 11:32 [From Stadol] ketorolac tromethamine Allergy Rash/Hives Verified 06/23/17 11:32 [From Toradol] meperidine HCl [From Demerol] Allergy Swelling Verified 06/23/17 11:32 methocarbamol [From Robaxin] Allergy Unknown Verified 06/23/17 11:32 morphine Allergy Rash/Hives Verified 06/23/17 11:32 sulfamethoxazole Allergy Rash/Hives Verified 06/23/17 11:32 [From Bactrim] trimethoprim [From Bactrim] Allergy Rash/Hives Verified 06/23/17 11:32 codeine AdvReac Vomiting & Verified 06/23/17 11:32 Headache methylprednisolone AdvReac Vomiting & Verified 06/23/17 11:32 [From Medrol] Headache Review of Systems ROS Statement: Those systems with pertinent positive or pertinent negative responses have been documented in the HPI. ROS Other: All systems not noted in ROS Statement are negative. Past Medical History Past Medical History: Asthma, Fibromyalgia, GERD/Reflux, Neurologic Disorder, Seizure Disorder, Thyroid Disorder Additional Past Medical History / Comment(s): crohns disease, diverticulosis, ibs, carpal tunnel, anemia, chronic back pain , migraines, pinched nerves History of Any Multi-Drug Resistant Organisms: None Reported Past Surgical History: Adenoidectomy, Appendectomy, Cholecystectomy, Orthopedic Surgery, Tonsillectomy Additional Past Surgical History / Comment(s): EGD/colonoscopy, right ankle surgery Past Anesthesia/Blood Transfusion Reactions: No Reported Reaction Additional Past Anesthesia/Blood Transfusion Reaction / Comment(s): hallucinations Past Psychological History: Anxiety, Depression Smoking Status: Current every day smoker Past Alcohol Use History: None Reported Past Drug Use History: None Reported - Past Family History Father Family Medical History: Diabetes Mellitus, Hyperlipidemia Mother Family Medical History: Cancer, CVA/TIA, Deep Vein Thrombosis (DVT), Osteoarthritis (OA), Thyroid Disorder Additional Family Medical History / Comment(s): Extensive tattoos throughout body General Exam - General Exam Comments Initial Comments: This patient is a 32-year-old female. Patient is on appear to be in any acute distress. Limitations: no limitations General appearance: alert, in no apparent distress Head exam: Present: atraumatic, normocephalic, normal inspection Eye exam: Present: normal appearance, PERRL, EOMI. Absent: scleral icterus, conjunctival injection, periorbital swelling ENT exam: Present: normal exam, mucous membranes moist Neck exam: Present: normal inspection Respiratory exam: Present: normal lung sounds bilaterally. Absent: respiratory distress, wheezes, rales, rhonchi, stridor Cardiovascular Exam: Present: regular rate, normal rhythm, normal heart sounds. Absent: systolic murmur, diastolic murmur, rubs, gallop, clicks GI/Abdominal exam: Present: soft, tenderness (Epigastric left upper quadrant tenderness.), normal bowel sounds. Absent: distended, guarding, rebound, rigid Course Vital Signs 06/23/17 06/23/17 11:17 15:37 Temperature 97 F L Pulse Rate 88 70 Respiratory 18 16 Rate Blood Pressure 102/59 104/62 O2 Sat by Pulse 97 97 Oximetry Medical Decision Making - Medical Decision Making This is a 32-year-old female presents emergency department for area EMS chief complaint of left upper quadrant abdominal pain. She states it feels like it's her at pancreatitis acting up again. Patient states that she's had normal urination or bowel habits. Denies any significant vomiting but feels nauseated. Patient's labs are reviewed. She's had over six CAT scans in the past year.Discussed risk for cancers. PAtietn agrees to avoid CT scan at this time. Discussed follow up with PCP and will treat as if gastritis. Advised on diet changes and return parameters discussed. - Lab Data Result diagrams: 06/23/17 11:43 06/23/17 11:43 Lab Results 06/23/17 06/23/17 06/23/17 Range/Units 11:43 11:43 12:35 WBC 7.5 (3.8-10.6) k/uL RBC 4.05 (3.80-5.40) m/uL Hgb 11.9 (11.4-16.0) gm/dL Hct 35.5 (34.0-46.0) % MCV 87.8 D (80.0-100.0) fL MCH 29.5 (25.0-35.0) pg MCHC 33.6 (31.0-37.0) g/dL RDW 14.6 (11.5-15.5) % Plt Count 390 (150-450) k/uL Neutrophils % 53 % Lymphocytes % 36 % Monocytes % 7 % Eosinophils % 2 % Basophils % 0 % Neutrophils # 3.9 (1.3-7.7) k/uL Lymphocytes # 2.7 (1.0-4.8) k/uL Monocytes # 0.5 (0-1.0) k/uL Eosinophils # 0.1 (0-0.7) k/uL Basophils # 0.0 (0-0.2) k/uL Sodium 138 (137-145) mmol/L Potassium 4.4 (3.5-5.1) mmol/L Chloride 104 (98-107) mmol/L Carbon Dioxide 22 (22-30) mmol/L Anion Gap 12 mmol/L BUN 13 (7-17) mg/dL Creatinine 0.77 (0.52-1.04) mg/dL Est GFR (CKD-EPI)AfAm >90 (>60 ml/min/1.73 sqM) Est GFR (CKD-EPI)NonAf >90 (>60 ml/min/1.73 sqM) Glucose 96 (74-99) mg/dL Calcium 9.4 (8.4-10.2) mg/dL Total Bilirubin 0.4 (0.2-1.3) mg/dL AST 37 H (14-36) U/L ALT 42 (9-52) U/L Alkaline Phosphatase 96 (38-126) U/L Total Protein 6.7 (6.3-8.2) g/dL Albumin 3.7 (3.5-5.0) g/dL Amylase 80 (30-110) U/L Lipase 99 (23-300) U/L Urine Color Yellow Urine Appearance Clear (Clear) Urine pH 7.0 (5.0-8.0) Ur Specific [place] 1.018 (1.001-1.035) Urine Protein Negative (Negative) Urine Glucose (UA) Negative (Negative) Urine Ketones Negative (Negative) Urine Blood Negative (Negative) Urine Nitrite Negative (Negative) Urine Bilirubin Negative (Negative) Urine Urobilinogen <2.0 (<2.0) mg/dL Ur Leukocyte Esterase Negative (Negative) Urine HCG, Qual (Not Detectd) 06/23/17 Range/Units 12:35 WBC (3.8-10.6) k/uL RBC (3.80-5.40) m/uL Hgb (11.4-16.0) gm/dL Hct (34.0-46.0) % MCV (80.0-100.0) fL MCH (25.0-35.0) pg MCHC (31.0-37.0) g/dL RDW (11.5-15.5) % Plt Count (150-450) k/uL Neutrophils % % Lymphocytes % % Monocytes % % Eosinophils % % Basophils % % Neutrophils # (1.3-7.7) k/uL Lymphocytes # (1.0-4.8) k/uL Monocytes # (0-1.0) k/uL Eosinophils # (0-0.7) k/uL Basophils # (0-0.2) k/uL Sodium (137-145) mmol/L Potassium (3.5-5.1) mmol/L Chloride (98-107) mmol/L Carbon Dioxide (22-30) mmol/L Anion Gap mmol/L BUN (7-17) mg/dL Creatinine (0.52-1.04) mg/dL Est GFR (CKD-EPI)AfAm (>60 ml/min/1.73 sqM) Est GFR (CKD-EPI)NonAf (>60 ml/min/1.73 sqM) Glucose (74-99) mg/dL Calcium (8.4-10.2) mg/dL Total Bilirubin (0.2-1.3) mg/dL AST (14-36) U/L ALT (9-52) U/L Alkaline Phosphatase (38-126) U/L Total Protein (6.3-8.2) g/dL Albumin (3.5-5.0) g/dL Amylase (30-110) U/L Lipase (23-300) U/L Urine Color Urine Appearance (Clear) Urine pH (5.0-8.0) Ur Specific [place] (1.001-1.035) Urine Protein (Negative) Urine Glucose (UA) (Negative) Urine Ketones (Negative) Urine Blood (Negative) Urine Nitrite (Negative) Urine Bilirubin (Negative) Urine Urobilinogen (<2.0) mg/dL Ur Leukocyte Esterase (Negative) Urine HCG, Qual Not Detected (Not Detectd) Disposition Clinical Impression: Abdominal pain, Gastritis Disposition: HOME SELF-CARE Condition: Good Instructions: Abdominal Pain (ED) Additional Instructions: Patient advised to take the medication as prescribed. Follow-up with PCP and GI specialist. Return to emergency department if any alarming signs or symptoms occur. Prescriptions: Ondansetron Odt [Zofran Odt] 4 mg PO Q8HR PRN #12 tab PRN Reason: Nausea Sucralfate [Carafate] 1 gm PO ACHS #30 tablet Referrals: Joan Meeks MD [Primary Care Provider] - 1-2 days Time of Disposition: 15:14
[2017-06-23] MEDS ORDERED: MORPHINE SULFATE 4 MG/ML SYRINGE IVP ONE (15:15)
[2017-06-23] MEDS ORDERED: PANTOPRAZOLE 40 MG/10 ML VIAL IVP STA (15:15)
[2017-06-23] MEDS ORDERED: MORPHINE SULFATE/PF 10MG/10ML VL IVP ONE (15:30)
[2017-06-23 15:38] VITALS: BP 104/62; PULSE 70; RESP 16
== END 2017-06-23 15:37 | disposition home or self-care (01) ==
LOC: EC 11:14
DX: K29.70 Gastritis, unspecified, without bleeding (principal); M79.7 Fibromyalgia; K21.9 Gastro-esophageal reflux disease without esophagitis; G40.909 Epilepsy, unspecified, not intractable, without status epilepticus; E07.9 Disorder of thyroid, unspecified; D64.9 Anemia, unspecified; G43.909 Migraine, unspecified, not intractable, without status migrainosus; F41.9 Anxiety disorder, unspecified; F32.9 Major depressive disorder, single episode, unspecified; F17.200 Nicotine dependence, unspecified, uncomplicated; Z90.49 Acquired absence of other specified parts of digestive tract; Z79.3 Long term (current) use of hormonal contraceptives; Z79.899 Other long term (current) drug therapy; Z88.8 Allergy status to other drugs, medicaments and biological substances; Z88.5 Allergy status to narcotic agent; Z88.6 Allergy status to analgesic agent; Z88.2 Allergy status to sulfonamides; Z53.20 Procedure and treatment not carried out because of patient's decision for unspecified reasons
CPT/HCPCS: 36415; 80053; 82150; 83690; 85025; 81003; 81025; 74018; 99285; 96374; 96375; 96376; 96361 ×3; C9113; J2270

== ENCOUNTER 2017-08-18 17:59 | Emergency (ER) | payer OTHER ==
[2017-08-18 18:51] LABS: Appearance,Urine Clear (Clear); Bacteria,Urine Rare /hpf; Bilirubin,Urine Negative (Negative); Blood,Urine Negative (Negative); Color,Urine Yellow; Glucose,Urine (UA) Negative (Negative); Ketones,Urine Negative (Negative); Leukocyte Esterase,Urine Small (Negative); Mucus,Urine Rare /hpf; Nitrite,Urine Negative (Negative); PH, Urine 6.5 (5.0-8.0); Protein,Urine Negative (Negative); RBC,Urine 1 /hpf (0-5); Specific Gravity,Urine 1.009 (1.001-1.035); Squamous Epithelial Cell,Urine 1 /hpf (0-4); Urobilinogen,Urine <2.0 mg/dL (<2.0); WBC,Urine 9 /hpf (0-5)
[2017-08-18 18:54] LABS: Basophils % (A) 0 %; Eosinophils # (A) 0.1 k/uL (0-0.7); Eosinophils % (A) 1 %; HGB 11.9 gm/dL (11.4-16.0); Lymphocytes # (A) 2.4 k/uL (1.0-4.8); Lymphocytes % (A) 33 %; MCH 28.6 pg (25.0-35.0); MCV 86.5 fL (80.0-100.0); Mean Platelet Volume 6.8; Monocytes # (A) 0.6 k/uL (0-1.0); Monocytes % (A) 9 %; Neutrophils % (A) 54 %; Platelet Count 403 k/uL (150-450); RBC 4.16 m/uL (3.80-5.40); RDW 14.4 % (11.5-15.5); WBC 7.3 k/uL (3.8-10.6)
[2017-08-18 18:57] LABS: ALT 33 U/L (9-52); AST 24 U/L (14-36); Albumin 3.9 g/dL (3.5-5.0); Alkaline Phosphatase 97 U/L (38-126); Amylase 56 U/L (30-110); Anion Gap 13 mmol/L; Blood Urea Nitrogen 5 mg/dL (7-17); Calcium 9.1 mg/dL (8.4-10.2); Carbon Dioxide 19 mmol/L (22-30); Chloride 112 mmol/L (98-107); Glucose 93 mg/dL (74-99); Lipase 44 U/L (23-300); Potassium 3.9 mmol/L (3.5-5.1); Sodium 144 mmol/L (137-145); Total Bilirubin 0.3 mg/dL (0.2-1.3); Total Protein 6.8 g/dL (6.3-8.2)
[2017-08-18 18:59] LABS: Partial Thromboplastin Time 24.6 sec (22.0-30.0); Prothrombin Time 10.2 sec (9.0-12.0)
--- NOTE | 2017-08-18 19:11 | ED ---
Abdominal Pain HPI - General Chief Complaint: Abdominal Pain Stated Complaint: Abd pain Time Seen by Provider: 08/18/17 18:09 Source: patient, EMS, RN notes reviewed, old records reviewed Mode of arrival: EMS Limitations: no limitations - History of Present Illness Initial Comments: This is a 32-year-old female who presents to the emergency department with chief complaint of abdominal pain. Patient was brought to the emergency department via EMS. She states that yesterday she developed pain in the right side of her abdomen. She states that since that time it has progressively worsened. She states that the majority of the pain is in the right upper quadrant. She describes the pain as a constant pain with intermittent sharp, twisting pains. She also admits to associated nausea, vomiting and diarrhea. Denies any fevers or chills. Denies chest pain or shortness of breath. Patient states that she has a history of cholecystectomy and appendectomy. She also states that she has a history of pancreatitis. - Related Data Home Medications Medication Instructions Recorded Confirmed Sertraline HCl [Zoloft] 200 mg PO DAILY 09/24/13 08/18/17 Levothyroxine Sodium [Synthroid] 125 mcg PO QAM 06/05/15 08/18/17 Ranitidine HCl [Zantac] 150 mg PO BID 12/26/15 08/18/17 Simvastatin [Zocor] 20 mg PO HS 12/26/15 08/18/17 Divalproex Sodium [Depakote] 2,000 mg PO BID 04/30/16 08/18/17 Omeprazole 20 mg PO BID 04/30/16 08/18/17 Zolpidem [Ambien] 10 mg PO HS 04/30/16 08/18/17 Beclomethasone Dipropionate [Qvar 1 puff INHALATION RT-DAILY PRN 07/19/16 80 mcg] Prochlorperazine [Compazine] 10 mg PO Q6H PRN 09/13/16 08/18/17 Ferrous Sulfate [Iron (65 MG 325 mg PO HS 03/09/17 08/18/17 Elemental)] Gabapentin [Neurontin] 800 mg PO TID 04/22/17 08/18/17 Lurasidone HCl [Latuda] 60 mg PO DAILY 04/22/17 08/18/17 QUEtiapine [SEROquel] 100 mg PO BID 04/22/17 08/18/17 QUEtiapine [SEROquel] 500 mg PO HS 04/22/17 08/18/17 ALPRAZolam [Xanax] 2 mg PO TID PRN 06/23/17 08/18/17 HYDROcodone/APAP 10-325MG [Nutrioso 1 tab PO Q4-6H PRN 06/23/17 08/18/17 10-325] Allergies Allergy/AdvReac Type Severity Reaction Status Date / Time dicyclomine [From Bentyl] Allergy Severe Hallucinati Verified 08/18/17 19:02 ons granisetron HCl [From Kytril] Allergy Severe Anaphylaxis Verified 08/18/17 19:02 baclofen Allergy Rash/Hives Verified 08/18/17 19:02 butorphanol tartrate Allergy Rash/Hives Verified 08/18/17 19:02 [From Stadol] ketorolac tromethamine Allergy Rash/Hives Verified 08/18/17 19:02 [From Toradol] meperidine HCl [From Demerol] Allergy Swelling Verified 08/18/17 19:02 methocarbamol [From Robaxin] Allergy Unknown Verified 08/18/17 19:02 morphine Allergy Rash/Hives Verified 08/18/17 19:02 sulfamethoxazole Allergy Rash/Hives Verified 08/18/17 19:02 [From Bactrim] trimethoprim [From Bactrim] Allergy Rash/Hives Verified 08/18/17 19:02 codeine AdvReac Vomiting & Verified 08/18/17 19:02 Headache methylprednisolone AdvReac Vomiting & Verified 08/18/17 19:02 [From Medrol] Headache Review of Systems ROS Statement: Those systems with pertinent positive or pertinent negative responses have been documented in the HPI. ROS Other: All systems not noted in ROS Statement are negative. Past Medical History Past Medical History: Asthma, Fibromyalgia, GERD/Reflux, Neurologic Disorder, Seizure Disorder, Thyroid Disorder Additional Past Medical History / Comment(s): crohns disease, diverticulosis, ibs, carpal tunnel, anemia, chronic back pain , migraines, pinched nerves History of Any Multi-Drug Resistant Organisms: None Reported Past Surgical History: Adenoidectomy, Appendectomy, Cholecystectomy, Orthopedic Surgery, Tonsillectomy Additional Past Surgical History / Comment(s): EGD/colonoscopy, right ankle surgery Past Anesthesia/Blood Transfusion Reactions: No Reported Reaction Additional Past Anesthesia/Blood Transfusion Reaction / Comment(s): hallucinations Past Psychological History: Anxiety, Depression Smoking Status: Current every day smoker Past Alcohol Use History: None Reported Past Drug Use History: None Reported - Past Family History Father Family Medical History: Diabetes Mellitus, Hyperlipidemia Mother Family Medical History: Cancer, CVA/TIA, Deep Vein Thrombosis (DVT), Osteoarthritis (OA), Thyroid Disorder Additional Family Medical History / Comment(s): Extensive tattoos throughout body General Exam - General Exam Comments Initial Comments: General: Awake and alert, well-developed; in no apparent distress. Lying comfortable in ED stretcher. HEENT: Head atraumatic, normocephalic. Pupils are equal, round and reactive to light. Extraocular movements intact. Oropharynx moist without erythema or exudate. Neck: Supple. Normal ROM. Cardiovascular: Regular rate and rhythm. No murmurs, rubs or gallops. Chest symmetrical. Respiratory: Normal respiratory effort with no use of accessory muscles. Wheezing noted in the left lower quadrant. Abdomen: Soft, non-distended. Tenderness on palpation of right upper quadrant and epigastrium. No rigidity, rebound or guarding. Normal bowel sounds in all 4 quadrants. Musculoskeletal: Normal ROM, no tenderness bilateral upper and lower extremities. Skin: [place], warm and dry without rashes. Multiple scattered tattoos. Neurological: Alert and oriented x3. CN II-XII grossly intact. Speech is fluent and answers are appropriate. No focal neuro deficits. Psychiatric: Normal mood and affect. No overt signs of depression or anxiety noted. Limitations: no limitations Course Vital Signs 08/18/17 08/18/17 18:14 19:37 Temperature 98.2 F 98 F Pulse Rate 96 99 Respiratory 20 20 Rate Blood Pressure 127/87 124/88 O2 Sat by Pulse 97 97 Oximetry - Reevaluation(s) Reevaluation #1: At this time, labs reviewed with patient. She was informed that there are no significant abnormalities. Patient continues to complain of right upper quadrant pain and she is tender on palpation. Patient requests computed tomography scan because she "wants to know what's wrong." 08/18/17 19:24 Medical Decision Making - Medical Decision Making This is a 32-year-old female who presented to the emergency department with chief complaint of abdominal pain. On presentation patient's vital signs are stable and she is in no acute distress. On physical examination, patient is tender in the right upper quadrant and epigastrium. Patient does have a history of cholecystectomy. CBC, CMP and coags were unremarkable. Urine did reveal small leukocyte esterase and white blood cells. Urine culture is pending. On physical examination patient also had some wheezing in the left lower lobe. A chest x-ray was obtained. This revealed no acute abnormalities. Patient continued to complain of right upper quadrant pain and requested a computed tomography scan. A computed tomography scan with IV contrast was obtained and revealed no acute abnormalities. There is no evidence to account for patient's symptoms. CRP was obtained and was slightly elevated at 15.6. Patient will be discharged home at this time. Recommended following up with her primary care provider and she will also be provided with follow-up to gastroenterology. Patient does state that she sees Dr. Stiles and will be contacting him in the morning. Patient is in agreement with plan and voices understanding. All questions answered. - Lab Data Result diagrams: 08/18/17 18:30 08/18/17 18:30 Lab Results 08/18/17 08/18/17 08/18/17 Range/Units 18:30 18:30 18:30 WBC 7.3 (3.8-10.6) k/uL RBC 4.16 (3.80-5.40) m/uL Hgb 11.9 (11.4-16.0) gm/dL Hct 36.0 (34.0-46.0) % MCV 86.5 (80.0-100.0) fL MCH 28.6 (25.0-35.0) pg MCHC 33.0 (31.0-37.0) g/dL RDW 14.4 (11.5-15.5) % Plt Count 403 (150-450) k/uL Neutrophils % 54 % Lymphocytes % 33 % Monocytes % 9 % Eosinophils % 1 % Basophils % 0 % Neutrophils # 4.0 (1.3-7.7) k/uL Lymphocytes # 2.4 (1.0-4.8) k/uL Monocytes # 0.6 (0-1.0) k/uL Eosinophils # 0.1 (0-0.7) k/uL Basophils # 0.0 (0-0.2) k/uL PT (9.0-12.0) sec INR (<1.2) APTT (22.0-30.0) sec Sodium 144 (137-145) mmol/L Potassium 3.9 (3.5-5.1) mmol/L Chloride 112 H (98-107) mmol/L Carbon Dioxide 19 L (22-30) mmol/L Anion Gap 13 mmol/L BUN 5 L (7-17) mg/dL Creatinine 0.65 (0.52-1.04) mg/dL Est GFR (CKD-EPI)AfAm >90 (>60 ml/min/1.73 sqM) Est GFR (CKD-EPI)NonAf >90 (>60 ml/min/1.73 sqM) Glucose 93 (74-99) mg/dL Calcium 9.1 (8.4-10.2) mg/dL Total Bilirubin 0.3 (0.2-1.3) mg/dL AST 24 (14-36) U/L ALT 33 (9-52) U/L Alkaline Phosphatase 97 (38-126) U/L Total Protein 6.8 (6.3-8.2) g/dL Albumin 3.9 (3.5-5.0) g/dL Amylase 56 (30-110) U/L Lipase 44 (23-300) U/L Urine Color Urine Appearance (Clear) Urine pH (5.0-8.0) Ur Specific [place] (1.001-1.035) Urine Protein (Negative) Urine Glucose (UA) (Negative) Urine Ketones (Negative) Urine Blood (Negative) Urine Nitrite (Negative) Urine Bilirubin (Negative) Urine Urobilinogen (<2.0) mg/dL Ur Leukocyte Esterase (Negative) Urine RBC (0-5) /hpf Urine WBC (0-5) /hpf Ur Squamous Epith Cells (0-4) /hpf Urine Bacteria (None) /hpf Urine Mucus (None) /hpf Urine HCG, Qual Not Detected (Not Detectd) 08/18/17 08/18/17 Range/Units 18:30 18:30 WBC (3.8-10.6) k/uL RBC (3.80-5.40) m/uL Hgb (11.4-16.0) gm/dL Hct (34.0-46.0) % MCV (80.0-100.0) fL MCH (25.0-35.0) pg MCHC (31.0-37.0) g/dL RDW (11.5-15.5) % Plt Count (150-450) k/uL Neutrophils % % Lymphocytes % % Monocytes % % Eosinophils % % Basophils % % Neutrophils # (1.3-7.7) k/uL Lymphocytes # (1.0-4.8) k/uL Monocytes # (0-1.0) k/uL Eosinophils # (0-0.7) k/uL Basophils # (0-0.2) k/uL PT 10.2 (9.0-12.0) sec INR 1.0 (<1.2) APTT 24.6 (22.0-30.0) sec Sodium (137-145) mmol/L Potassium (3.5-5.1) mmol/L Chloride (98-107) mmol/L Carbon Dioxide (22-30) mmol/L Anion Gap mmol/L BUN (7-17) mg/dL Creatinine (0.52-1.04) mg/dL Est GFR (CKD-EPI)AfAm (>60 ml/min/1.73 sqM) Est GFR (CKD-EPI)NonAf (>60 ml/min/1.73 sqM) Glucose (74-99) mg/dL Calcium (8.4-10.2) mg/dL Total Bilirubin (0.2-1.3) mg/dL AST (14-36) U/L ALT (9-52) U/L Alkaline Phosphatase (38-126) U/L Total Protein (6.3-8.2) g/dL Albumin (3.5-5.0) g/dL Amylase (30-110) U/L Lipase (23-300) U/L Urine Color Yellow Urine Appearance Clear (Clear) Urine pH 6.5 (5.0-8.0) Ur Specific [place] 1.009 (1.001-1.035) Urine Protein Negative (Negative) Urine Glucose (UA) Negative (Negative) Urine Ketones Negative (Negative) Urine Blood Negative (Negative) Urine Nitrite Negative (Negative) Urine Bilirubin Negative (Negative) Urine Urobilinogen <2.0 (<2.0) mg/dL Ur Leukocyte Esterase Small H (Negative) Urine RBC 1 (0-5) /hpf Urine WBC 9 H (0-5) /hpf Ur Squamous Epith Cells 1 (0-4) /hpf Urine Bacteria Rare H (None) /hpf Urine Mucus Rare H (None) /hpf Urine HCG, Qual (Not Detectd) - Radiology Data Radiology results: report reviewed, image reviewed Chest x-ray impression: No acute cardiopulmonary process. CT abdomen and pelvis with contrast impression: No acute process identified to account for the patient's symptoms. Disposition Clinical Impression: Abdominal pain Disposition: HOME SELF-CARE Condition: Good Instructions: Abdominal Pain (ED) Additional Instructions: Please follow up with primary care provider within 1-2 days. Return to emergency department if symptoms should worsen or any concerns arise. Is patient prescribed a controlled substance at d/c from ED?: No Referrals: Joan Meeks MD [Primary Care Provider] - 1-2 days Time of Disposition: 21:00
--- NOTE | 2017-08-18 19:18 | XR ---
EXAMINATION TYPE: XR chest 2V DATE OF EXAM: 08/18/2017 CLINICAL HISTORY: 04/25/2017 TECHNIQUE: Frontal and lateral views of the chest are obtained. COMPARISON: None FINDINGS: There is no focal air space opacity, pleural effusion, or pneumothorax seen. The cardiac silhouette size is within normal limits. The osseous structures are intact. IMPRESSION: No acute cardiopulmonary process.
[2017-08-18] MEDS ORDERED: RX INFO: IV CONTRAST WAS GIVEN 1 EACH MISC MISCELLANE PRN (19:23)
[2017-08-18] MEDS ORDERED: MORPHINE SULFATE 4 MG/ML SYRINGE IVP STA (19:37)
--- NOTE | 2017-08-18 20:21 | CT ---
EXAMINATION TYPE: CT abdomen pelvis w con DATE OF EXAM: 08/18/2017 COMPARISON: 04/26/2017 HISTORY: RUQ and epigastric pain, nausea, vomiting and diarrhea. CT DLP: 2921 mGycm CONTRAST: CT scan of the abdomen and pelvis is performed without Oral Contrast and with IV Contrast, patient in jected with 100ml mL of Isovue 300.Issues with patient's IV, tubing blew half way during injection. R eloaded and injected contrast. FINDINGS: LUNG BASES-: No visible nodule. No infiltrate. LIVER/GB: No space occupying hepatic lesion. Biliary tree is of normal caliber. There is evidence of hepatic steatosis. Cholecystectomy clips are in place. PANCREAS: No inflammation. No distinct mass. SPLEEN: No splenic enlargement. No lesion seen. ADRENALS: Left adrenal nodule measures 2.3 cm. No evidence for right-sided nodularity. No thickening. KIDNEYS/BLADDER: No hydronephrosis. No nephrolithiasis. No distinct renal mass. Urinary bladder g rossly unremarkable. BOWEL: Normal appendix. Normal bowel caliber. No inflammation. GENITAL ORGANS: No gross abnormality. LYMPH NODES: No greater than 1cm abdominal or pelvic lymph nodes are appreciated. AORTA: No significant abnormality. OSSEOUS STRUCTURES: No significant abnormality is seen. OTHER: No significant additional abnormality is seen. IMPRESSION: 1. No acute process identified to account for the patient's symptoms.
[2017-08-18 20:52] VITALS: RESP 16; TEMP 98.6
[2017-08-18 21:09] VITALS: BP 146/89; PULSE 91
== END 2017-08-18 21:07 | disposition home or self-care (01) ==
LOC: EC 17:59
DX: R10.11 Right upper quadrant pain (principal); R10.13 Epigastric pain; R11.2 Nausea with vomiting, unspecified; R19.7 Diarrhea, unspecified; J45.909 Unspecified asthma, uncomplicated; M79.7 Fibromyalgia; K21.9 Gastro-esophageal reflux disease without esophagitis; G40.909 Epilepsy, unspecified, not intractable, without status epilepticus; E07.9 Disorder of thyroid, unspecified; K58.9 Irritable bowel syndrome, unspecified; F32.9 Major depressive disorder, single episode, unspecified; F41.9 Anxiety disorder, unspecified; F17.200 Nicotine dependence, unspecified, uncomplicated; Z79.51 Long term (current) use of inhaled steroids; Z79.899 Other long term (current) drug therapy; Z88.2 Allergy status to sulfonamides; Z88.5 Allergy status to narcotic agent; Z88.6 Allergy status to analgesic agent; Z88.8 Allergy status to other drugs, medicaments and biological substances; Z90.49 Acquired absence of other specified parts of digestive tract
CPT/HCPCS: 36415; 80053; 82150; 83690; 85025; 85610; 85730; 86140; 81001; 81025; 87086; 71046; 74177; 99285; 96374; J2270; Q9967

== ENCOUNTER 2017-09-06 10:53 | Emergency (ER) | payer OTHER ==
[2017-09-06] MEDS ORDERED: MORPHINE SULFATE 2 MG/ML SYRINGE IVP STA ×2 (11:33→13:28)
[2017-09-06] MEDS ORDERED: SODIUM CHLORIDE 0.9% 1,000 ML IV STA (11:33)
[2017-09-06] MEDS ORDERED: diphenhydrAMINE 50 MG/ML 1 ML VIAL IVP STA (11:33)
[2017-09-06] MEDS ORDERED: METOCLOPRAMIDE 5 MG/ML 2 ML VIAL IVP STA (11:33)
--- NOTE | 2017-09-06 11:37 | ED ---
General Adult HPI - General Chief complaint: GI Bleed Stated complaint: GI bleed Time Seen by Provider: 09/06/17 11:10 Source: patient, RN notes reviewed Mode of arrival: ambulatory Limitations: no limitations - History of Present Illness Initial comments: Patient is a 32-year-old female with significant past medical history for Crohn' s disease, presented to the emergency room today with a chief complaint of right -sided abdominal pain with diarrhea. She states that she has seen some blood in her stool. Patient does admit that she's had symptoms similar to this in the past with Crohn's. She states she was seen here in the emergency room proximal to go. She states she did have a CAT scan at that time. She states everything was normal she wouldn't did follow the GI doctor. States started on a new medication she is unsure the name. She states she got medicine from the office has not filled the prescription yet. Patient states pain located in the right side of the abdomen. States comes and goes. Does admit radiates up. Patient denies any other complaints. Patient denies any recent fever, chills, shortness of breath, chest pain, back pain, numbness or tingling, dysuria or hematuria, constipation, headaches or visual changes, or any other complaints. - Related Data Home Medications Medication Instructions Recorded Confirmed Sertraline HCl [Zoloft] 200 mg PO DAILY 09/24/13 09/06/17 Levothyroxine Sodium [Synthroid] 125 mcg PO QAM 06/05/15 09/06/17 Ranitidine HCl [Zantac] 150 mg PO BID 12/26/15 09/06/17 Simvastatin [Zocor] 20 mg PO HS 12/26/15 09/06/17 Divalproex Sodium [Depakote] 2,000 mg PO BID 04/30/16 09/06/17 Prochlorperazine [Compazine] 10 mg PO TID PRN 09/13/16 09/06/17 Ferrous Sulfate [Iron (65 MG 325 mg PO HS 03/09/17 09/06/17 Elemental)] Lurasidone HCl [Latuda] 60 mg PO DAILY 04/22/17 09/06/17 QUEtiapine [SEROquel] 100 mg PO BID@0800,1200 04/22/17 09/06/17 QUEtiapine [SEROquel] 500 mg PO HS 04/22/17 09/06/17 Gabapentin 600 mg PO TID 09/06/17 09/06/17 Lisinopril-Hctz 20-25 mg 1 tab PO BID 09/06/17 09/06/17 [Zestoretic 20-25] Propranolol [Inderal] 40 mg PO TID 09/06/17 09/06/17 Previous Rx's Medication Instructions Recorded predniSONE 20 mg PO QID 5 Days tab 09/06/17 Allergies Allergy/AdvReac Type Severity Reaction Status Date / Time dicyclomine [From Bentyl] Allergy Severe Hallucinati Verified 09/06/17 11:24 ons granisetron HCl [From Kytril] Allergy Severe Anaphylaxis Verified 09/06/17 11:24 baclofen Allergy Rash/Hives Verified 09/06/17 11:24 butorphanol tartrate Allergy Rash/Hives Verified 09/06/17 11:24 [From Stadol] ketorolac tromethamine Allergy Rash/Hives Verified 09/06/17 11:24 [From Toradol] meperidine HCl [From Demerol] Allergy Swelling Verified 09/06/17 11:24 methocarbamol [From Robaxin] Allergy Unknown Verified 09/06/17 11:24 morphine Allergy Rash/Hives Verified 09/06/17 11:24 sulfamethoxazole Allergy Rash/Hives Verified 09/06/17 11:24 [From Bactrim] trimethoprim [From Bactrim] Allergy Rash/Hives Verified 09/06/17 11:24 codeine AdvReac Vomiting & Verified 09/06/17 11:24 Headache methylprednisolone AdvReac Vomiting & Verified 09/06/17 11:24 [From Medrol] Headache Review of Systems ROS Statement: Those systems with pertinent positive or pertinent negative responses have been documented in the HPI. ROS Other: All systems not noted in ROS Statement are negative. Past Medical History Past Medical History: Asthma, Fibromyalgia, GERD/Reflux, Neurologic Disorder, Seizure Disorder, Thyroid Disorder Additional Past Medical History / Comment(s): crohns disease, diverticulosis, ibs, carpal tunnel, anemia, chronic back pain , migraines, pinched nerves History of Any Multi-Drug Resistant Organisms: None Reported Past Surgical History: Adenoidectomy, Appendectomy, Cholecystectomy, Orthopedic Surgery, Tonsillectomy Additional Past Surgical History / Comment(s): EGD/colonoscopy, right ankle surgery Past Anesthesia/Blood Transfusion Reactions: No Reported Reaction Additional Past Anesthesia/Blood Transfusion Reaction / Comment(s): hallucinations Past Psychological History: Anxiety, Depression Smoking Status: Current every day smoker Past Alcohol Use History: None Reported Past Drug Use History: None Reported - Past Family History Father Family Medical History: Diabetes Mellitus, Hyperlipidemia Mother Family Medical History: Cancer, CVA/TIA, Deep Vein Thrombosis (DVT), Osteoarthritis (OA), Thyroid Disorder Additional Family Medical History / Comment(s): Extensive tattoos throughout body General Exam - General Exam Comments Initial Comments: General: The patient is awake and alert, in no distress, and does not appear acutely ill. Eye: Pupils are equal, round and reactive to light, extra-ocular movements are intact. No nystagmus. There is normal conjunctiva bilaterally. No signs of icterus. Ears, nose, mouth and throat: There are moist mucous membranes and no oral lesions. Neck: The neck is supple, there is no tenderness or JVD. Cardiovascular: There is a regular rate and rhythm. No murmur, rub or gallop is appreciated. Respiratory: Lungs are clear to auscultation, respirations are non-labored, breath sounds are equal. No wheezes, stridor, rales, or rhonchi. Gastrointestinal: Admits soft on palpation. Patient does have tenderness right side of the abdomen and lower quadrant. No rebound tenderness. No guarding. No CVA tenderness. Musculoskeletal: Normal ROM, no tenderness. Strength 5/5. Sensation intact. Pulses equal bilaterally 2+. Neurological: A&O x 3. CN II-XII intact, There are no obvious motor or sensory deficits. Coordination appears grossly intact. Speech is normal. Skin: Skin is warm and dry and no rashes or lesions are noted. Psychiatric: Cooperative, appropriate mood & affect, normal judgment. Limitations: no limitations Course Vital Signs 09/06/17 09/06/17 11:02 12:05 Temperature 98.9 F Pulse Rate 117 H 97 Respiratory 18 20 Rate Blood Pressure 135/95 124/90 O2 Sat by Pulse 97 99 Oximetry Medical Decision Making - Medical Decision Making Patient reexamined at this time shows no signs of distress. Labs been reviewed no elevated white count. Patient was recently seen here in the emergency room approximately [address] and labs performed. These results were reviewed CT of the abdomen and pelvis was negative for any acute abnormalities. Patient does not that the symptoms are consistent with her Crohn's that she's had in the past. Patient's vitals are stable. At this time patient is agreeable to course of steroids for these symptoms and default her GI doctor. Placed on prednisone 20 mg daily. Advised to return here to the emergency room symptoms increase worsen or for any other concerns. - Lab Data Result diagrams: 09/06/17 12:00 09/06/17 12:00 Lab Results 09/06/17 09/06/17 09/06/17 Range/Units 12:00 12:00 12:00 WBC 8.5 (3.8-10.6) k/uL RBC 4.69 (3.80-5.40) m/uL Hgb 12.9 (11.4-16.0) gm/dL Hct 39.6 (34.0-46.0) % MCV 84.3 (80.0-100.0) fL MCH 27.6 (25.0-35.0) pg MCHC 32.7 (31.0-37.0) g/dL RDW 14.5 (11.5-15.5) % Plt Count 444 (150-450) k/uL Neutrophils % 59 % Lymphocytes % 31 % Monocytes % 6 % Eosinophils % 1 % Basophils % 1 % Neutrophils # 5.0 (1.3-7.7) k/uL Lymphocytes # 2.6 (1.0-4.8) k/uL Monocytes # 0.5 (0-1.0) k/uL Eosinophils # 0.1 (0-0.7) k/uL Basophils # 0.0 (0-0.2) k/uL Sodium 144 (137-145) mmol/L Potassium 4.2 (3.5-5.1) mmol/L Chloride 110 H (98-107) mmol/L Carbon Dioxide 18 L (22-30) mmol/L Anion Gap 16 mmol/L BUN 6 L (7-17) mg/dL Creatinine 0.72 (0.52-1.04) mg/dL Est GFR (CKD-EPI)AfAm >90 (>60 ml/min/1.73 sqM) Est GFR (CKD-EPI)NonAf >90 (>60 ml/min/1.73 sqM) Glucose 101 H (74-99) mg/dL Calcium 9.8 (8.4-10.2) mg/dL Total Bilirubin 0.4 (0.2-1.3) mg/dL AST 33 (14-36) U/L ALT 50 (9-52) U/L Alkaline Phosphatase 119 (38-126) U/L Total Protein 7.5 (6.3-8.2) g/dL Albumin 4.4 (3.5-5.0) g/dL Amylase 84 (30-110) U/L Lipase 64 (23-300) U/L Urine Color Urine Appearance (Clear) Urine pH (5.0-8.0) Ur Specific [place] (1.001-1.035) Urine Protein (Negative) Urine Glucose (UA) (Negative) Urine Ketones (Negative) Urine Blood (Negative) Urine Nitrite (Negative) Urine Bilirubin (Negative) Urine Urobilinogen (<2.0) mg/dL Ur Leukocyte Esterase (Negative) Urine RBC (0-5) /hpf Urine WBC (0-5) /hpf Ur Squamous Epith Cells (0-4) /hpf Urine Bacteria (None) /hpf Urine Mucus (None) /hpf Urine HCG, Qual Not Detected (Not Detectd) 09/06/17 Range/Units 12:00 WBC (3.8-10.6) k/uL RBC (3.80-5.40) m/uL Hgb (11.4-16.0) gm/dL Hct (34.0-46.0) % MCV (80.0-100.0) fL MCH (25.0-35.0) pg MCHC (31.0-37.0) g/dL RDW (11.5-15.5) % Plt Count (150-450) k/uL Neutrophils % % Lymphocytes % % Monocytes % % Eosinophils % % Basophils % % Neutrophils # (1.3-7.7) k/uL Lymphocytes # (1.0-4.8) k/uL Monocytes # (0-1.0) k/uL Eosinophils # (0-0.7) k/uL Basophils # (0-0.2) k/uL Sodium (137-145) mmol/L Potassium (3.5-5.1) mmol/L Chloride (98-107) mmol/L Carbon Dioxide (22-30) mmol/L Anion Gap mmol/L BUN (7-17) mg/dL Creatinine (0.52-1.04) mg/dL Est GFR (CKD-EPI)AfAm (>60 ml/min/1.73 sqM) Est GFR (CKD-EPI)NonAf (>60 ml/min/1.73 sqM) Glucose (74-99) mg/dL Calcium (8.4-10.2) mg/dL Total Bilirubin (0.2-1.3) mg/dL AST (14-36) U/L ALT (9-52) U/L Alkaline Phosphatase (38-126) U/L Total Protein (6.3-8.2) g/dL Albumin (3.5-5.0) g/dL Amylase (30-110) U/L Lipase (23-300) U/L Urine Color Yellow Urine Appearance Clear (Clear) Urine pH 6.5 (5.0-8.0) Ur Specific [place] 1.005 (1.001-1.035) Urine Protein Negative (Negative) Urine Glucose (UA) Negative (Negative) Urine Ketones Negative (Negative) Urine Blood Negative (Negative) Urine Nitrite Negative (Negative) Urine Bilirubin Negative (Negative) Urine Urobilinogen <2.0 (<2.0) mg/dL Ur Leukocyte Esterase Trace H (Negative) Urine RBC 1 (0-5) /hpf Urine WBC 2 (0-5) /hpf Ur Squamous Epith Cells 1 (0-4) /hpf Urine Bacteria Rare H (None) /hpf Urine Mucus Rare H (None) /hpf Urine HCG, Qual (Not Detectd) Disposition Clinical Impression: Abdominal pain Disposition: HOME SELF-CARE Condition: Good Instructions: Abdominal Pain (ED) Additional Instructions: Please use medication as discussed. Please follow-up with family doctor in the next 2 days of symptoms have not improved. Please return to emergency room if the symptoms increase or worsen or for any other concerns. Prescriptions: predniSONE 20 mg PO QID 5 Days tab Is patient prescribed a controlled substance at d/c from ED?: No Referrals: Joan Meeks MD [Primary Care Provider] - 1-2 days Time of Disposition: 13:20
[2017-09-06 12:41] LABS: ALT 50 U/L (9-52); AST 33 U/L (14-36); Albumin 4.4 g/dL (3.5-5.0); Alkaline Phosphatase 119 U/L (38-126); Amylase 84 U/L (30-110); Anion Gap 16 mmol/L; Blood Urea Nitrogen 6 mg/dL (7-17); Calcium 9.8 mg/dL (8.4-10.2); Carbon Dioxide 18 mmol/L (22-30); Chloride 110 mmol/L (98-107); Glucose 101 mg/dL (74-99); Lipase 64 U/L (23-300); Potassium 4.2 mmol/L (3.5-5.1); Sodium 144 mmol/L (137-145); Total Bilirubin 0.4 mg/dL (0.2-1.3); Total Protein 7.5 g/dL (6.3-8.2)
[2017-09-06 12:44] LABS: Basophils % (A) 1 %; Eosinophils # (A) 0.1 k/uL (0-0.7); Eosinophils % (A) 1 %; HCT 39.6 % (34.0-46.0); HGB 12.9 gm/dL (11.4-16.0); Lymphocytes # (A) 2.6 k/uL (1.0-4.8); Lymphocytes % (A) 31 %; MCH 27.6 pg (25.0-35.0); MCHC 32.7 g/dL (31.0-37.0); MCV 84.3 fL (80.0-100.0); Monocytes # (A) 0.5 k/uL (0-1.0); Monocytes % (A) 6 %; Neutrophils % (A) 59 %; Platelet Count 444 k/uL (150-450); RBC 4.69 m/uL (3.80-5.40); RDW 14.5 % (11.5-15.5); WBC 8.5 k/uL (3.8-10.6)
[2017-09-06 12:52] LABS: Appearance,Urine Clear (Clear); Bacteria,Urine Rare /hpf; Bilirubin,Urine Negative (Negative); Blood,Urine Negative (Negative); Color,Urine Yellow; Glucose,Urine (UA) Negative (Negative); Ketones,Urine Negative (Negative); Leukocyte Esterase,Urine Trace (Negative); Mucus,Urine Rare /hpf; Nitrite,Urine Negative (Negative); PH, Urine 6.5 (5.0-8.0); Protein,Urine Negative (Negative); RBC,Urine 1 /hpf (0-5); Specific Gravity,Urine 1.005 (1.001-1.035); Squamous Epithelial Cell,Urine 1 /hpf (0-4); Urobilinogen,Urine <2.0 mg/dL (<2.0); WBC,Urine 2 /hpf (0-5)
--- NOTE | 2017-09-06 13:06 | XR ---
EXAMINATION TYPE: XR KUB DATE OF EXAM: 09/06/2017 COMPARISON: NONE HISTORY: Pain TECHNIQUE: Single supine KUB image of the abdomen is obtained FINDINGS: Small bowel demonstrates no evidence for dilatation or air fluid levels. Gas and fecal material is seen in non-distended colon. No convincing evidence for pneumoperitoneum. No unusual calcifications. The lung bases are clear. The osseous structures are intact. IMPRESSION: 1. Overall nonobstructive bowel gas pattern.
[2017-09-06 14:01] VITALS: BP 132/87; PULSE 87; RESP 18; TEMP 98.6
== END 2017-09-06 14:00 | disposition home or self-care (01) ==
LOC: EC 10:53
DX: R10.9 Unspecified abdominal pain (principal); R19.7 Diarrhea, unspecified; K92.2 Gastrointestinal hemorrhage, unspecified; K50.90 Crohn's disease, unspecified, without complications; J45.909 Unspecified asthma, uncomplicated; M79.7 Fibromyalgia; K21.9 Gastro-esophageal reflux disease without esophagitis; G40.909 Epilepsy, unspecified, not intractable, without status epilepticus; E07.9 Disorder of thyroid, unspecified; F41.9 Anxiety disorder, unspecified; F32.9 Major depressive disorder, single episode, unspecified; F17.200 Nicotine dependence, unspecified, uncomplicated; Z87.19 Personal history of other diseases of the digestive system; Z79.899 Other long term (current) drug therapy; Z88.1 Allergy status to other antibiotic agents; Z88.2 Allergy status to sulfonamides; Z88.5 Allergy status to narcotic agent; Z88.6 Allergy status to analgesic agent; Z88.8 Allergy status to other drugs, medicaments and biological substances; Z53.29 Procedure and treatment not carried out because of patient's decision for other reasons
CPT/HCPCS: 36415; 80053; 82150; 83690; 85025; 81001; 81025; 74018; 99285; 96374; 96375; 96376; 96361; J2765; J2270

== ENCOUNTER 2017-10-11 14:25 | Emergency (ER) | payer OTHER ==
[2017-10-11] MEDS ORDERED: KETOROLAC 30 MG/ML 1 ML VIAL IVP STA (14:34)
[2017-10-11] MEDS ORDERED: SODIUM CHLORIDE 0.9% 1,000 ML IV STA ×2 (14:34)
[2017-10-11] MEDS ORDERED: PANTOPRAZOLE 40 MG/10 ML VIAL IVP STA (14:34)
[2017-10-11] MEDS ORDERED: MORPHINE SULFATE 2 MG/ML SYRINGE IV STA (14:34)
[2017-10-11] MEDS ORDERED: ONDANSETRON 4 MG/2 ML VIAL IVP STA (14:34)
--- NOTE | 2017-10-11 14:36 | ED ---
Abdominal Pain HPI - General Chief Complaint: Abdominal Pain Stated Complaint: abd pain Time Seen by Provider: 10/11/17 14:27 Source: patient, EMS, RN notes reviewed, old records reviewed Mode of arrival: EMS - History of Present Illness Initial Comments: Patient is a 32-year-old female presents emergency department today with 1 week of abdominal pain. She reports that it's mainly on the right upper and lower quadrants. He does have a history of appendectomy and cholecystectomy. She denies any fever or chills. She reports multiple episodes of vomiting and diarrhea. Patient states she's had no chest pain shortness breath. No melena or hematochezia. No back pain. - Related Data Home Medications Medication Instructions Recorded Confirmed Sertraline HCl [Zoloft] 200 mg PO DAILY 09/24/13 10/11/17 Levothyroxine Sodium [Synthroid] 125 mcg PO QAM 06/05/15 10/11/17 Ranitidine HCl [Zantac] 150 mg PO BID 12/26/15 10/11/17 Divalproex Sodium [Depakote] 2,000 mg PO BID 04/30/16 10/11/17 Ferrous Sulfate [Iron (65 MG 325 mg PO HS 03/09/17 10/11/17 Elemental)] QUEtiapine [SEROquel] 100 mg PO BID@0800,1200 04/22/17 10/11/17 QUEtiapine [SEROquel] 500 mg PO HS 04/22/17 10/11/17 Lisinopril-Hctz 20-25 mg 2 tab PO DAILY 09/06/17 10/11/17 [Zestoretic 20-25] Gabapentin [Neurontin] 800 mg PO TID 10/11/17 10/11/17 Lurasidone [Latuda] 80 mg PO DAILY 10/11/17 10/11/17 Previous Rx's Medication Instructions Recorded Ondansetron Odt [Zofran Odt] 4 mg PO Q8HR PRN #12 tab 10/11/17 predniSONE 50 mg PO DAILY #5 tablet 10/11/17 Allergies Allergy/AdvReac Type Severity Reaction Status Date / Time dicyclomine [From Bentyl] Allergy Severe Hallucinati Verified 10/11/17 15:51 ons granisetron HCl [From Kytril] Allergy Severe Anaphylaxis Verified 10/11/17 15:51 baclofen Allergy Rash/Hives Verified 10/11/17 15:51 butorphanol tartrate Allergy Rash/Hives Verified 10/11/17 15:51 [From Stadol] ketorolac tromethamine Allergy Rash/Hives Verified 10/11/17 15:51 [From Toradol] meperidine HCl [From Demerol] Allergy Swelling Verified 10/11/17 15:51 methocarbamol [From Robaxin] Allergy Unknown Verified 10/11/17 15:51 morphine Allergy Rash/Hives Verified 10/11/17 15:51 sulfamethoxazole Allergy Rash/Hives Verified 10/11/17 15:51 [From Bactrim] trimethoprim [From Bactrim] Allergy Rash/Hives Verified 10/11/17 15:51 codeine AdvReac Vomiting & Verified 10/11/17 15:51 Headache methylprednisolone AdvReac Vomiting & Verified 10/11/17 15:51 [From Medrol] Headache Review of Systems ROS Statement: Those systems with pertinent positive or pertinent negative responses have been documented in the HPI. ROS Other: All systems not noted in ROS Statement are negative. Past Medical History Past Medical History: Asthma, Fibromyalgia, GERD/Reflux, Neurologic Disorder, Seizure Disorder, Thyroid Disorder Additional Past Medical History / Comment(s): crohns disease, diverticulosis, ibs, carpal tunnel, anemia, chronic back pain , migraines, pinched nerves, History of Any Multi-Drug Resistant Organisms: None Reported Past Surgical History: Adenoidectomy, Appendectomy, Cholecystectomy, Orthopedic Surgery, Tonsillectomy Additional Past Surgical History / Comment(s): EGD/colonoscopy, right ankle surgery Past Anesthesia/Blood Transfusion Reactions: No Reported Reaction Additional Past Anesthesia/Blood Transfusion Reaction / Comment(s): hallucinations Past Psychological History: Anxiety, Depression Smoking Status: Current every day smoker Past Alcohol Use History: None Reported Past Drug Use History: None Reported - Past Family History Father Family Medical History: Diabetes Mellitus, Hyperlipidemia Mother Family Medical History: Cancer, CVA/TIA, Deep Vein Thrombosis (DVT), Osteoarthritis (OA), Thyroid Disorder Additional Family Medical History / Comment(s): Extensive tattoos throughout body General Exam - General Exam Comments Initial Comments: 32-year-old female. Alert and oriented. No acute distress. General appearance: alert, in no apparent distress Head exam: Present: atraumatic, normocephalic, normal inspection Eye exam: Present: normal appearance, PERRL, EOMI. Absent: scleral icterus, conjunctival injection, periorbital swelling ENT exam: Present: normal exam, mucous membranes moist Neck exam: Present: normal inspection. Absent: tenderness, meningismus, lymphadenopathy Respiratory exam: Present: normal lung sounds bilaterally. Absent: respiratory distress, wheezes, rales, rhonchi, stridor Cardiovascular Exam: Present: regular rate, normal rhythm, normal heart sounds. Absent: systolic murmur, diastolic murmur, rubs, gallop, clicks GI/Abdominal exam: Present: soft, tenderness (diffuse abdominal tenderness, or tenderness over the right lower quadrant left lower quadrant.), normal bowel sounds. Absent: distended, guarding, rebound, rigid Extremities exam: Present: normal inspection, full ROM, normal capillary refill. Absent: tenderness, pedal edema, joint swelling, calf tenderness Back exam: Present: normal inspection Neurological exam: Present: alert, oriented X3, CN II-XII intact Psychiatric exam: Present: normal affect, normal mood Skin exam: Present: warm, dry, intact, normal color. Absent: rash Course Vital Signs 10/11/17 10/11/17 14:25 16:00 Temperature 98.4 F Pulse Rate 109 H 87 Respiratory 22 20 Rate Blood Pressure 167/102 115/69 O2 Sat by Pulse 97 99 Oximetry Medical Decision Making - Medical Decision Making 32-year-old feel presents Ms. from stay with acute exacerbation of abdominal pain. She reports male in the right side. Patient's labwork was reviewed and unremarkable. She's had no vomiting or diarrhea while in the emergency department. Patient's lab work shows no signs of dehydration. Kidney function and liver function are within normal as for white blood cell count was normal. She was quite tender on exam. CT abdomen and pelvis was completed. Evidence of some mild colitis. Evidence of a stable adrenal adenoma. No significant changes. Patient reported these results. We'll discharge her with close follow -up with primary care physician. Discussed resting remaining hydrated. Discussed return parameters. - Lab Data Result diagrams: 10/11/17 14:58 10/11/17 14:58 Lab Results 10/11/17 10/11/17 10/11/17 Range/Units 14:58 14:58 14:58 WBC 9.7 (3.8-10.6) k/uL RBC 4.27 (3.80-5.40) m/uL Hgb 11.6 (11.4-16.0) gm/dL Hct 36.0 (34.0-46.0) % MCV 84.4 (80.0-100.0) fL MCH 27.2 (25.0-35.0) pg MCHC 32.3 (31.0-37.0) g/dL RDW 15.7 H (11.5-15.5) % Plt Count 464 H (150-450) k/uL Neutrophils % 47 % Lymphocytes % 38 % Monocytes % 8 % Eosinophils % 4 % Basophils % 0 % Neutrophils # 4.5 (1.3-7.7) k/uL Lymphocytes # 3.7 (1.0-4.8) k/uL Monocytes # 0.8 (0-1.0) k/uL Eosinophils # 0.4 (0-0.7) k/uL Basophils # 0.0 (0-0.2) k/uL PT (9.0-12.0) sec INR (<1.2) APTT (22.0-30.0) sec Sodium 142 (137-145) mmol/L Potassium 3.9 (3.5-5.1) mmol/L Chloride 112 H (98-107) mmol/L Carbon Dioxide 17 L (22-30) mmol/L Anion Gap 13 mmol/L BUN 3 L (7-17) mg/dL Creatinine 0.71 (0.52-1.04) mg/dL Est GFR (CKD-EPI)AfAm >90 (>60 ml/min/1.73 sqM) Est GFR (CKD-EPI)NonAf >90 (>60 ml/min/1.73 sqM) Glucose 90 (74-99) mg/dL Calcium 9.0 (8.4-10.2) mg/dL Total Bilirubin 0.8 (0.2-1.3) mg/dL AST 20 (14-36) U/L ALT 26 (9-52) U/L Alkaline Phosphatase 100 (38-126) U/L Total Protein 6.6 (6.3-8.2) g/dL Albumin 3.7 (3.5-5.0) g/dL Amylase 74 (30-110) U/L Lipase 63 (23-300) U/L Urine Color Urine Appearance (Clear) Urine pH (5.0-8.0) Ur Specific [place] (1.001-1.035) Urine Protein (Negative) Urine Glucose (UA) (Negative) Urine Ketones (Negative) Urine Blood (Negative) Urine Nitrite (Negative) Urine Bilirubin (Negative) Urine Urobilinogen (<2.0) mg/dL Ur Leukocyte Esterase (Negative) Urine HCG, Qual Not Detected (Not Detectd) 10/11/17 10/11/17 Range/Units 14:58 14:58 WBC (3.8-10.6) k/uL RBC (3.80-5.40) m/uL Hgb (11.4-16.0) gm/dL Hct (34.0-46.0) % MCV (80.0-100.0) fL MCH (25.0-35.0) pg MCHC (31.0-37.0) g/dL RDW (11.5-15.5) % Plt Count (150-450) k/uL Neutrophils % % Lymphocytes % % Monocytes % % Eosinophils % % Basophils % % Neutrophils # (1.3-7.7) k/uL Lymphocytes # (1.0-4.8) k/uL Monocytes # (0-1.0) k/uL Eosinophils # (0-0.7) k/uL Basophils # (0-0.2) k/uL PT 9.4 (9.0-12.0) sec INR 0.9 (<1.2) APTT 24.9 (22.0-30.0) sec Sodium (137-145) mmol/L Potassium (3.5-5.1) mmol/L Chloride (98-107) mmol/L Carbon Dioxide (22-30) mmol/L Anion Gap mmol/L BUN (7-17) mg/dL Creatinine (0.52-1.04) mg/dL Est GFR (CKD-EPI)AfAm (>60 ml/min/1.73 sqM) Est GFR (CKD-EPI)NonAf (>60 ml/min/1.73 sqM) Glucose (74-99) mg/dL Calcium (8.4-10.2) mg/dL Total Bilirubin (0.2-1.3) mg/dL AST (14-36) U/L ALT (9-52) U/L Alkaline Phosphatase (38-126) U/L Total Protein (6.3-8.2) g/dL Albumin (3.5-5.0) g/dL Amylase (30-110) U/L Lipase (23-300) U/L Urine Color Light Yellow Urine Appearance Clear (Clear) Urine pH 6.5 (5.0-8.0) Ur Specific [place] 1.012 (1.001-1.035) Urine Protein Negative (Negative) Urine Glucose (UA) Negative (Negative) Urine Ketones Negative (Negative) Urine Blood Negative (Negative) Urine Nitrite Negative (Negative) Urine Bilirubin Negative (Negative) Urine Urobilinogen <2.0 (<2.0) mg/dL Ur Leukocyte Esterase Negative (Negative) Urine HCG, Qual (Not Detectd) - Radiology Data Radiology results: report reviewed CT shows mild circumferential wall thickening of the ascending colon to the sigmoid and secondary to nondistention or mild colitis. Correlate clinically. Hepatomegaly. Stable 2 cm left adrenal nausea from 2016. Likely adrenal adenoma. Disposition Clinical Impression: Colitis, Crohns disease Disposition: HOME SELF-CARE Condition: Good Instructions: Colitis (ED) Additional Instructions: Patient advised to follow-up with GI specialist. Take the medication as prescribed. Return to emergency department if any alarming signs or symptoms occur. Prescriptions: Ondansetron Odt [Zofran Odt] 4 mg PO Q8HR PRN #12 tab PRN Reason: Nausea predniSONE 50 mg PO DAILY #5 tablet Is patient prescribed a controlled substance at d/c from ED?: No When asked, does pt state using other controlled substances?: No If prescribed controlled substance>3 days was MAPS reviewed?: No If opioid is for acute pain is fill amount 7 days or less?: No If Rx opioid, was Start Talking consent form obtained?: No Referrals: Jaon Meeks MD [Primary Care Provider] - 1-2 days Time of Disposition: 16:38
[2017-10-11 15:17] LABS: Basophils % (A) 0 %; Eosinophils # (A) 0.4 k/uL (0-0.7); Eosinophils % (A) 4 %; HGB 11.6 gm/dL (11.4-16.0); Lymphocytes # (A) 3.7 k/uL (1.0-4.8); Lymphocytes % (A) 38 %; MCH 27.2 pg (25.0-35.0); MCHC 32.3 g/dL (31.0-37.0); MCV 84.4 fL (80.0-100.0); Mean Platelet Volume 6.8; Monocytes # (A) 0.8 k/uL (0-1.0); Monocytes % (A) 8 %; Neutrophils # (A) 4.5 k/uL (1.3-7.7); Neutrophils % (A) 47 %; Platelet Count 464 k/uL (150-450); RBC 4.27 m/uL (3.80-5.40); RDW 15.7 % (11.5-15.5); WBC 9.7 k/uL (3.8-10.6)
[2017-10-11 15:20] LABS: Appearance,Urine Clear (Clear); Bilirubin,Urine Negative (Negative); Blood,Urine Negative (Negative); Color,Urine Light Yellow; Glucose,Urine (UA) Negative (Negative); Ketones,Urine Negative (Negative); Leukocyte Esterase,Urine Negative (Negative); Nitrite,Urine Negative (Negative); PH, Urine 6.5 (5.0-8.0); Protein,Urine Negative (Negative); Specific Gravity,Urine 1.012 (1.001-1.035); Urobilinogen,Urine <2.0 mg/dL (<2.0)
[2017-10-11 15:27] LABS: ALT 26 U/L (9-52); AST 20 U/L (14-36); Albumin 3.7 g/dL (3.5-5.0); Alkaline Phosphatase 100 U/L (38-126); Amylase 74 U/L (30-110); Anion Gap 13 mmol/L; Blood Urea Nitrogen 3 mg/dL (7-17); Carbon Dioxide 17 mmol/L (22-30); Chloride 112 mmol/L (98-107); Glucose 90 mg/dL (74-99); Lipase 63 U/L (23-300); Potassium 3.9 mmol/L (3.5-5.1); Sodium 142 mmol/L (137-145); Total Bilirubin 0.8 mg/dL (0.2-1.3); Total Protein 6.6 g/dL (6.3-8.2)
[2017-10-11 16:11] LABS: INR 0.9 (<1.2); Partial Thromboplastin Time 24.9 sec (22.0-30.0); Prothrombin Time 9.4 sec (9.0-12.0)
[2017-10-11 16:16] VITALS: RESP 20
--- NOTE | 2017-10-11 16:25 | CT ---
EXAMINATION TYPE: CT abdomen pelvis w con DATE OF EXAM: 10/11/2017 COMPARISON: 08/18/2017 and 03/13/2016 HISTORY: 32-year-old female with abdominal pain, nausea and vomiting x1 week. TECHNIQUE: Contiguous axial scanning of the abdomen and pelvis following administration of 100 ml Omn ipaque 300 IV contrast. Delayed images through the kidneys and coronal/sagittal reconstructions perf ormed. CT DLP: 1584.8 mGycm Automated exposure control for dose reduction was used. FINDINGS: Heart is normal size without pericardial effusion. There is some patchy groundglass in the bilateral lower lobes. No pleural effusion. Liver enlarged measuring 23.2 cm. No focal lesion seen. No biliary ductal dilatation. Portal venous s ystem is patent. Cholecystectomy clips. A 2.0 cm left adrenal nodule is unchanged from 03/13/2016 suggesting an adrenal adenoma. Right adrenal gland, kidneys, spleen, and pancreas show no gross abnormality. No dilated small bowel, free fluid, or free air. No mesenteric or retroperitoneal lymphadenopathy. Moderate stool in the cecum and lower ascending colon. Otherwise, there is mild stool burden. Mild ci rcumferential wall thickening of the descending colon extending to the mid sigmoid colon may relate t o nondistention. No surrounding inflammatory changes. Bladder partially distended. Uterus and ovaries are visualized. No abnormal fluid collection in the p [place] or pelvic lymphadenopathy. Bones: No osseous destructive process. IMPRESSION: 1. MILD CIRCUMFERENTIAL WALL THICKENING OF THE DESCENDING COLON EXTENDING DOWN TO THE MID SIGMOID COU LD BE SECONDARY TO NONDISTENTION OR MILD COLITIS. CLINICALLY CORRELATE. 2. HEPATOMEGALY (23.2 CM). 3. STABLE 2 CM LEFT ADRENAL NODULE FROM 2016, LIKELY ADRENAL ADENOMA.
[2017-10-11] MEDS ORDERED: HYDROcodone/APAP 5-325MG 1 EACH TAB PO STA (16:51)
[2017-10-11 17:01] VITALS: BP 122/56; PULSE 78; TEMP 98.3
== END 2017-10-11 17:00 | disposition home or self-care (01) ==
LOC: EC 14:25
DX: K52.9 Noninfective gastroenteritis and colitis, unspecified (principal); K50.90 Crohn's disease, unspecified, without complications; D35.02 Benign neoplasm of left adrenal gland; R16.0 Hepatomegaly, not elsewhere classified; K21.9 Gastro-esophageal reflux disease without esophagitis; G40.909 Epilepsy, unspecified, not intractable, without status epilepticus; D64.9 Anemia, unspecified; M79.7 Fibromyalgia; E07.9 Disorder of thyroid, unspecified; F32.9 Major depressive disorder, single episode, unspecified; F41.9 Anxiety disorder, unspecified; F17.200 Nicotine dependence, unspecified, uncomplicated; Z79.899 Other long term (current) drug therapy; Z88.1 Allergy status to other antibiotic agents; Z88.5 Allergy status to narcotic agent; Z88.6 Allergy status to analgesic agent; Z88.8 Allergy status to other drugs, medicaments and biological substances; Z86.69 Personal history of other diseases of the nervous system and sense organs; Z90.49 Acquired absence of other specified parts of digestive tract; Z53.8 Procedure and treatment not carried out for other reasons
CPT/HCPCS: 36415; 80053; 82150; 83690; 85025; 85610; 85730; 81003; 81025; 74177; 99285; 96374; 96375 ×2; 96361 ×2; J2405; J2270; C9113; Q9967

== ENCOUNTER 2017-11-06 17:10 | Emergency (ER) | payer OTHER ==
[2017-11-06 17:15] VITALS: RESP 18; TEMP 96.5
[2017-11-06] MEDS ORDERED: PANTOPRAZOLE 40 MG/10 ML VIAL IVP STA (17:30)
[2017-11-06] MEDS ORDERED: SODIUM CHLORIDE 0.9% 1,000 ML IV STA (17:30)
[2017-11-06] MEDS ORDERED: HYDROcodone/APAP 5-325MG 1 EACH TAB PO STA (18:00)
[2017-11-06] MEDS ORDERED: ONDANSETRON 4 MG/2 ML VIAL IVP STA (18:00)
--- NOTE | 2017-11-06 18:03 | ED ---
General Adult HPI - General Chief complaint: GI Bleed Stated complaint: Abd pain Time Seen by Provider: 11/06/17 17:30 Source: EMS Mode of arrival: EMS Limitations: no limitations - History of Present Illness Initial comments: This a 32-year-old female presents emergency Department chief complaint of abdominal pain, rectal bleeding. Patient states that she's having dark red stools. Patient states she has a history of colitis, Crohn's. Patient states that she sees Dr. Chaparro. She was here proximal one month ago and was given medications for her Crohn's states that mainly improved her symptoms but states that pain has been worsening along with new onset of rectal bleeding. She has not had a scope a colostomy in 7 years. Patient denies any fever or chills. She has had some nausea diffuse lower abdominal pain. Patient denies any dysuria, hematuria and chance . - Related Data Home Medications Medication Instructions Recorded Confirmed Sertraline HCl [Zoloft] 200 mg PO DAILY 09/24/13 10/11/17 Levothyroxine Sodium [Synthroid] 125 mcg PO QAM 06/05/15 10/11/17 Ranitidine HCl [Zantac] 150 mg PO BID 12/26/15 10/11/17 Divalproex Sodium [Depakote] 2,000 mg PO BID 04/30/16 10/11/17 Ferrous Sulfate [Iron (65 MG 325 mg PO HS 03/09/17 10/11/17 Elemental)] QUEtiapine [SEROquel] 100 mg PO BID@0800,1200 04/22/17 10/11/17 QUEtiapine [SEROquel] 500 mg PO HS 04/22/17 10/11/17 Lisinopril-Hctz 20-25 mg 2 tab PO DAILY 09/06/17 10/11/17 [Zestoretic 20-25] Gabapentin [Neurontin] 800 mg PO TID 10/11/17 10/11/17 Lurasidone [Latuda] 80 mg PO DAILY 10/11/17 10/11/17 Previous Rx's Medication Instructions Recorded Ondansetron Odt [Zofran Odt] 4 mg PO Q8HR PRN #12 tab 10/11/17 predniSONE 50 mg PO DAILY #5 tablet 10/11/17 Mesalamine [Delzicol] 800 mg PO DAILY #20 capsule.dr 11/06/17 predniSONE 20 mg PO BID #10 tab 11/06/17 Allergies Allergy/AdvReac Type Severity Reaction Status Date / Time dicyclomine [From Bentyl] Allergy Severe Hallucinati Verified 11/06/17 17:16 ons granisetron HCl [From Kytril] Allergy Severe Anaphylaxis Verified 11/06/17 17:16 baclofen Allergy Rash/Hives Verified 11/06/17 17:16 butorphanol tartrate Allergy Rash/Hives Verified 11/06/17 17:16 [From Stadol] ketorolac tromethamine Allergy Rash/Hives Verified 11/06/17 17:16 [From Toradol] meperidine HCl [From Demerol] Allergy Swelling Verified 11/06/17 17:16 methocarbamol [From Robaxin] Allergy Unknown Verified 11/06/17 17:16 morphine Allergy Rash/Hives Verified 11/06/17 17:16 sulfamethoxazole Allergy Rash/Hives Verified 11/06/17 17:16 [From Bactrim] trimethoprim [From Bactrim] Allergy Rash/Hives Verified 11/06/17 17:16 codeine AdvReac Vomiting & Verified 11/06/17 17:16 Headache methylprednisolone AdvReac Vomiting & Verified 11/06/17 17:16 [From Medrol] Headache Review of Systems ROS Statement: Those systems with pertinent positive or pertinent negative responses have been documented in the HPI. ROS Other: All systems not noted in ROS Statement are negative. Past Medical History Past Medical History: Asthma, Fibromyalgia, GERD/Reflux, Neurologic Disorder, Seizure Disorder, Thyroid Disorder Additional Past Medical History / Comment(s): crohns disease, diverticulosis, ibs, carpal tunnel, anemia, chronic back pain , migraines, pinched nerves, History of Any Multi-Drug Resistant Organisms: None Reported Past Surgical History: Adenoidectomy, Appendectomy, Cholecystectomy, Orthopedic Surgery, Tonsillectomy Additional Past Surgical History / Comment(s): EGD/colonoscopy, right ankle surgery Past Anesthesia/Blood Transfusion Reactions: No Reported Reaction Additional Past Anesthesia/Blood Transfusion Reaction / Comment(s): hallucinations Past Psychological History: Anxiety, Depression Smoking Status: Current every day smoker Past Alcohol Use History: None Reported Past Drug Use History: None Reported - Past Family History Father Family Medical History: Diabetes Mellitus, Hyperlipidemia Mother Family Medical History: Cancer, CVA/TIA, Deep Vein Thrombosis (DVT), Osteoarthritis (OA), Thyroid Disorder Additional Family Medical History / Comment(s): Extensive tattoos throughout body General Exam Limitations: no limitations General appearance: alert, in no apparent distress Head exam: Present: atraumatic, normocephalic, normal inspection Respiratory exam: Present: normal lung sounds bilaterally. Absent: respiratory distress, wheezes, rales, rhonchi, stridor Cardiovascular Exam: Present: regular rate, normal rhythm, normal heart sounds. Absent: systolic murmur, diastolic murmur, rubs, gallop, clicks GI/Abdominal exam: Present: soft, tenderness (Moderate lower abdominal tenderness), normal bowel sounds. Absent: distended, guarding, rebound, rigid Back exam: Absent: CVA tenderness (R), CVA tenderness (L) Neurological exam: Present: alert, oriented X3, CN II-XII intact Skin exam: Present: warm, dry, intact, normal color. Absent: rash Course Vital Signs 11/06/17 11/06/17 17:12 19:34 Temperature 96.5 F L Pulse Rate 100 82 Respiratory 18 18 Rate Blood Pressure 135/97 162/100 O2 Sat by Pulse 100 99 Oximetry Medical Decision Making - Medical Decision Making 32-year-old female present for abdominal pain, intermittent rectal bleeding. Patient has history of Crohn's. Patient is having exacerbation of her colitis. Patient was placed on steroids advised follow-up with GI and return for any worsening symptoms. Hemoglobin is stable vitals are stable. - Lab Data Result diagrams: 11/06/17 17:20 11/06/17 17:20 Lab Results 11/06/17 11/06/17 11/06/17 Range/Units 16:23 16:23 17:20 WBC 8.9 (3.8-10.6) k/uL RBC 4.58 (3.80-5.40) m/uL Hgb 12.4 (11.4-16.0) gm/dL Hct 38.3 (34.0-46.0) % MCV 83.7 (80.0-100.0) fL MCH 27.1 (25.0-35.0) pg MCHC 32.4 (31.0-37.0) g/dL RDW 17.0 H (11.5-15.5) % Plt Count 432 (150-450) k/uL Neutrophils % 49 % Lymphocytes % 38 % Monocytes % 6 % Eosinophils % 3 % Basophils % 0 % Neutrophils # 4.4 (1.3-7.7) k/uL Lymphocytes # 3.4 (1.0-4.8) k/uL Monocytes # 0.6 (0-1.0) k/uL Eosinophils # 0.3 (0-0.7) k/uL Basophils # 0.0 (0-0.2) k/uL Anisocytosis Slight PT (9.0-12.0) sec INR (<1.2) APTT (22.0-30.0) sec Sodium (137-145) mmol/L Potassium (3.5-5.1) mmol/L Chloride (98-107) mmol/L Carbon Dioxide (22-30) mmol/L Anion Gap mmol/L BUN (7-17) mg/dL Creatinine (0.52-1.04) mg/dL Est GFR (CKD-EPI)AfAm (>60 ml/min/1.73 sqM) Est GFR (CKD-EPI)NonAf (>60 ml/min/1.73 sqM) Glucose (74-99) mg/dL Calcium (8.4-10.2) mg/dL Total Bilirubin (0.2-1.3) mg/dL AST (14-36) U/L ALT (9-52) U/L Alkaline Phosphatase (38-126) U/L Total Protein (6.3-8.2) g/dL Albumin (3.5-5.0) g/dL Urine Color Light Yellow Urine Appearance Clear (Clear) Urine pH 6.5 (5.0-8.0) Ur Specific [place] 1.008 (1.001-1.035) Urine Protein Negative (Negative) Urine Glucose (UA) Negative (Negative) Urine Ketones Negative (Negative) Urine Blood Negative (Negative) Urine Nitrite Negative (Negative) Urine Bilirubin Negative (Negative) Urine Urobilinogen <2.0 (<2.0) mg/dL Ur Leukocyte Esterase Trace H (Negative) Urine WBC 4 (0-5) /hpf Ur Squamous Epith Cells 2 (0-4) /hpf Urine Mucus Rare H (None) /hpf Urine HCG, Qual Not Detected (Not Detectd) 11/06/17 11/06/17 Range/Units 17:20 17:20 WBC (3.8-10.6) k/uL RBC (3.80-5.40) m/uL Hgb (11.4-16.0) gm/dL Hct (34.0-46.0) % MCV (80.0-100.0) fL MCH (25.0-35.0) pg MCHC (31.0-37.0) g/dL RDW (11.5-15.5) % Plt Count (150-450) k/uL Neutrophils % % Lymphocytes % % Monocytes % % Eosinophils % % Basophils % % Neutrophils # (1.3-7.7) k/uL Lymphocytes # (1.0-4.8) k/uL Monocytes # (0-1.0) k/uL Eosinophils # (0-0.7) k/uL Basophils # (0-0.2) k/uL Anisocytosis PT 9.9 (9.0-12.0) sec INR 1.0 (<1.2) APTT 24.7 (22.0-30.0) sec Sodium 141 (137-145) mmol/L Potassium 4.0 (3.5-5.1) mmol/L Chloride 114 H (98-107) mmol/L Carbon Dioxide 19 L (22-30) mmol/L Anion Gap 8 mmol/L BUN 6 L (7-17) mg/dL Creatinine 0.80 (0.52-1.04) mg/dL Est GFR (CKD-EPI)AfAm >90 (>60 ml/min/1.73 sqM) Est GFR (CKD-EPI)NonAf >90 (>60 ml/min/1.73 sqM) Glucose 96 (74-99) mg/dL Calcium 9.3 (8.4-10.2) mg/dL Total Bilirubin 0.2 (0.2-1.3) mg/dL AST 18 (14-36) U/L ALT 34 (9-52) U/L Alkaline Phosphatase 113 (38-126) U/L Total Protein 6.8 (6.3-8.2) g/dL Albumin 3.9 (3.5-5.0) g/dL Urine Color Urine Appearance (Clear) Urine pH (5.0-8.0) Ur Specific [place] (1.001-1.035) Urine Protein (Negative) Urine Glucose (UA) (Negative) Urine Ketones (Negative) Urine Blood (Negative) Urine Nitrite (Negative) Urine Bilirubin (Negative) Urine Urobilinogen (<2.0) mg/dL Ur Leukocyte Esterase (Negative) Urine WBC (0-5) /hpf Ur Squamous Epith Cells (0-4) /hpf Urine Mucus (None) /hpf Urine HCG, Qual (Not Detectd) Disposition Clinical Impression: Exacerbation of Crohn's disease Disposition: HOME SELF-CARE Condition: Stable Instructions: Crohn Disease (ED) Additional Instructions: Please return to the Emergency Department if symptoms worsen or any other concerns. Prescriptions: Mesalamine [Delzicol] 800 mg PO DAILY #20 capsule. predniSONE 20 mg PO BID #10 tab Is patient prescribed a controlled substance at d/c from ED?: No Referrals: Nonstaff,Physician [REFERRING] - 1-2 days Time of Disposition: 19:43
[2017-11-06 18:29] LABS: Anisocytosis Slight; Basophils % (A) 0 %; Eosinophils # (A) 0.3 k/uL (0-0.7); Eosinophils % (A) 3 %; HCT 38.3 % (34.0-46.0); HGB 12.4 gm/dL (11.4-16.0); Lymphocytes # (A) 3.4 k/uL (1.0-4.8); Lymphocytes % (A) 38 %; MCH 27.1 pg (25.0-35.0); MCHC 32.4 g/dL (31.0-37.0); MCV 83.7 fL (80.0-100.0); Monocytes # (A) 0.6 k/uL (0-1.0); Monocytes % (A) 6 %; Neutrophils # (A) 4.4 k/uL (1.3-7.7); Neutrophils % (A) 49 %; Platelet Count 432 k/uL (150-450); RBC 4.58 m/uL (3.80-5.40); WBC 8.9 k/uL (3.8-10.6)
[2017-11-06 18:46] LABS: ALT 34 U/L (9-52); AST 18 U/L (14-36); Albumin 3.9 g/dL (3.5-5.0); Alkaline Phosphatase 113 U/L (38-126); Anion Gap 8 mmol/L; Blood Urea Nitrogen 6 mg/dL (7-17); Calcium 9.3 mg/dL (8.4-10.2); Carbon Dioxide 19 mmol/L (22-30); Chloride 114 mmol/L (98-107); Glucose 96 mg/dL (74-99); Partial Thromboplastin Time 24.7 sec (22.0-30.0); Prothrombin Time 9.9 sec (9.0-12.0); Sodium 141 mmol/L (137-145); Total Bilirubin 0.2 mg/dL (0.2-1.3); Total Protein 6.8 g/dL (6.3-8.2)
[2017-11-06 19:12] LABS: Appearance,Urine Clear (Clear); Bilirubin,Urine Negative (Negative); Blood,Urine Negative (Negative); Color,Urine Light Yellow; Glucose,Urine (UA) Negative (Negative); Ketones,Urine Negative (Negative); Leukocyte Esterase,Urine Trace (Negative); Mucus,Urine Rare /hpf; Nitrite,Urine Negative (Negative); PH, Urine 6.5 (5.0-8.0); Protein,Urine Negative (Negative); Specific Gravity,Urine 1.008 (1.001-1.035); Squamous Epithelial Cell,Urine 2 /hpf (0-4); Urobilinogen,Urine <2.0 mg/dL (<2.0); WBC,Urine 4 /hpf (0-5)
[2017-11-06 19:35] VITALS: BP 162/100; PULSE 82
[2017-11-06] MEDS ORDERED: MORPHINE SULFATE 2 MG/ML SYRINGE IVP ONE (19:38)
[2017-11-06] MEDS ORDERED: methylPREDNISolone SOD SUCCI 125 MG/2 ML VIAL IV STA (19:38)
== END 2017-11-06 21:29 | disposition home or self-care (01) ==
LOC: EC 17:10
DX: K50.911 Crohn's disease, unspecified, with rectal bleeding (principal); K21.9 Gastro-esophageal reflux disease without esophagitis; G40.909 Epilepsy, unspecified, not intractable, without status epilepticus; E07.9 Disorder of thyroid, unspecified; D64.9 Anemia, unspecified; G43.909 Migraine, unspecified, not intractable, without status migrainosus; F32.9 Major depressive disorder, single episode, unspecified; F41.9 Anxiety disorder, unspecified; F17.200 Nicotine dependence, unspecified, uncomplicated; Z79.899 Other long term (current) drug therapy; Z88.2 Allergy status to sulfonamides; Z88.5 Allergy status to narcotic agent; Z88.6 Allergy status to analgesic agent; Z88.8 Allergy status to other drugs, medicaments and biological substances; Z90.49 Acquired absence of other specified parts of digestive tract
CPT/HCPCS: 99285; 96374; 96375 ×3; 96361; 36415; 80053; 85025; 85610; 85730; 81001; 81025; J2930; J2405; J2270; C9113

== ENCOUNTER 2017-12-29 14:13 | Emergency (ER) | payer OTHER ==
[2017-12-29 14:21] VITALS: TEMP 97.8
[2017-12-29] MEDS ORDERED: SODIUM CHLORIDE 0.9% 1,000 ML IV STA (14:21)
[2017-12-29 14:56] LABS: Anisocytosis Slight; Basophils % (A) 0 %; Eosinophils # (A) 0.2 k/uL (0-0.7); Eosinophils % (A) 2 %; HCT 42.9 % (34.0-46.0); Lymphocytes # (A) 3.7 k/uL (1.0-4.8); Lymphocytes % (A) 34 %; MCH 28.5 pg (25.0-35.0); MCHC 32.6 g/dL (31.0-37.0); MCV 87.3 fL (80.0-100.0); Monocytes # (A) 0.7 k/uL (0-1.0); Monocytes % (A) 7 %; Neutrophils # (A) 6.1 k/uL (1.3-7.7); Neutrophils % (A) 55 %; Platelet Count 523 k/uL (150-450); RBC 4.92 m/uL (3.80-5.40); WBC 11.1 k/uL (3.8-10.6)
--- NOTE | 2017-12-29 14:56 | ED ---
Abdominal Pain HPI - General Chief Complaint: Abdominal Pain Stated Complaint: ABd Pain Time Seen by Provider: 12/29/17 14:20 Source: patient, RN notes reviewed Mode of arrival: ambulatory Limitations: no limitations - History of Present Illness Initial Comments: This a 32-year-old female presents emergency Department chief complaint abdominal pain. Patient has chronic abdominal issues including Crohn's disease. Patient states that over the last day or so she develops right-sided abdominal pain. She states that the right upper and right lower. She states it feels different than her normal Crohn's issues. She has prior cholecystectomy. Patient denies any vomiting but states that she is nauseated. She states the pain is nonradiating sharp stabbing type pain. She has no dysuria no hematuria denies any vaginal bleeding or vaginal discharge. She states her bowel movements have been normal for her which includes mix constipation and diarrhea. Patient reports no fever or chills denies chest pain or shortness breath. - Related Data Home Medications Medication Instructions Recorded Confirmed Sertraline HCl [Zoloft] 200 mg PO DAILY 09/24/13 10/11/17 Levothyroxine Sodium [Synthroid] 125 mcg PO QAM 06/05/15 10/11/17 Ranitidine HCl [Zantac] 150 mg PO BID 12/26/15 10/11/17 Divalproex Sodium [Depakote] 2,000 mg PO BID 04/30/16 10/11/17 Ferrous Sulfate [Iron (65 MG 325 mg PO HS 03/09/17 10/11/17 Elemental)] QUEtiapine [SEROquel] 100 mg PO BID@0800,1200 04/22/17 10/11/17 QUEtiapine [SEROquel] 500 mg PO HS 04/22/17 10/11/17 Lisinopril-Hctz 20-25 mg 2 tab PO DAILY 09/06/17 10/11/17 [Zestoretic 20-25] Gabapentin [Neurontin] 800 mg PO TID 10/11/17 10/11/17 Lurasidone [Latuda] 80 mg PO DAILY 10/11/17 10/11/17 Previous Rx's Medication Instructions Recorded Ondansetron Odt [Zofran Odt] 4 mg PO Q8HR PRN #12 tab 10/11/17 predniSONE 50 mg PO DAILY #5 tablet 10/11/17 Mesalamine [Delzicol] 800 mg PO DAILY #20 capsule. 11/06/17 predniSONE 20 mg PO BID #10 tab 11/06/17 Allergies Allergy/AdvReac Type Severity Reaction Status Date / Time dicyclomine [From Bentyl] Allergy Severe Hallucinati Verified 11/06/17 17:16 ons granisetron HCl [From Kytril] Allergy Severe Anaphylaxis Verified 11/06/17 17:16 baclofen Allergy Rash/Hives Verified 11/06/17 17:16 butorphanol tartrate Allergy Rash/Hives Verified 11/06/17 17:16 [From Stadol] ketorolac tromethamine Allergy Rash/Hives Verified 11/06/17 17:16 [From Toradol] meperidine HCl [From Demerol] Allergy Swelling Verified 11/06/17 17:16 methocarbamol [From Robaxin] Allergy Unknown Verified 11/06/17 17:16 morphine Allergy Rash/Hives Verified 11/06/17 17:16 sulfamethoxazole Allergy Rash/Hives Verified 11/06/17 17:16 [From Bactrim] trimethoprim [From Bactrim] Allergy Rash/Hives Verified 11/06/17 17:16 codeine AdvReac Vomiting & Verified 11/06/17 17:16 Headache methylprednisolone AdvReac Vomiting & Verified 11/06/17 17:16 [From Medrol] Headache Review of Systems ROS Statement: Those systems with pertinent positive or pertinent negative responses have been documented in the HPI. ROS Other: All systems not noted in ROS Statement are negative. Past Medical History Past Medical History: Asthma, Fibromyalgia, GERD/Reflux, Neurologic Disorder, Seizure Disorder, Thyroid Disorder Additional Past Medical History / Comment(s): crohns disease, diverticulosis, ibs, carpal tunnel, anemia, chronic back pain , migraines, pinched nerves, History of Any Multi-Drug Resistant Organisms: None Reported Past Surgical History: Adenoidectomy, Appendectomy, Cholecystectomy, Orthopedic Surgery, Tonsillectomy Additional Past Surgical History / Comment(s): EGD/colonoscopy, right ankle surgery Past Anesthesia/Blood Transfusion Reactions: No Reported Reaction Additional Past Anesthesia/Blood Transfusion Reaction / Comment(s): hallucinations Past Psychological History: Anxiety, Depression Smoking Status: Current every day smoker Past Alcohol Use History: None Reported Past Drug Use History: None Reported - Past Family History Father Family Medical History: Diabetes Mellitus, Hyperlipidemia Mother Family Medical History: Cancer, CVA/TIA, Deep Vein Thrombosis (DVT), Osteoarthritis (OA), Thyroid Disorder Additional Family Medical History / Comment(s): Extensive tattoos throughout body General Exam Limitations: no limitations Neck exam: Present: normal inspection. Absent: tenderness, meningismus, lymphadenopathy Respiratory exam: Present: normal lung sounds bilaterally. Absent: respiratory distress, wheezes, rales, rhonchi, stridor Cardiovascular Exam: Present: regular rate, normal rhythm, normal heart sounds. Absent: systolic murmur, diastolic murmur, rubs, gallop, clicks GI/Abdominal exam: Present: soft, tenderness (Moderate tenderness right upper and lower quadrant), normal bowel sounds. Absent: distended, guarding, rebound , rigid Back exam: Absent: CVA tenderness (R), CVA tenderness (L) Skin exam: Present: warm, dry, intact, normal color. Absent: rash Course Vital Signs 12/29/17 12/29/17 14:18 16:21 Temperature 97.8 F Pulse Rate 104 H 94 Respiratory 18 27 H Rate Blood Pressure 139/89 129/89 O2 Sat by Pulse 98 100 Oximetry Medical Decision Making - Medical Decision Making 32-year-old female presents emergency department for abdominal pain. Patient has chronic abdominal issues. There is no acute findings on lab work. Patient has had multiple recent CT scans with only evidence of colitis. Patient has no rectal bleeding at this time. Patient will be advised follow-up with her GI doctor continue medications as directed and return for any worsening symptoms. - Lab Data Result diagrams: 12/29/17 14:21 12/29/17 14:21 Lab Results 12/29/17 12/29/17 12/29/17 Range/Units 14:21 14:21 14:21 WBC 11.1 H (3.8-10.6) k/uL RBC 4.92 (3.80-5.40) m/uL Hgb 14.0 (11.4-16.0) gm/dL Hct 42.9 (34.0-46.0) % MCV 87.3 (80.0-100.0) fL MCH 28.5 (25.0-35.0) pg MCHC 32.6 (31.0-37.0) g/dL RDW 17.0 H (11.5-15.5) % Plt Count 523 H (150-450) k/uL Neutrophils % 55 % Lymphocytes % 34 % Monocytes % 7 % Eosinophils % 2 % Basophils % 0 % Neutrophils # 6.1 (1.3-7.7) k/uL Lymphocytes # 3.7 (1.0-4.8) k/uL Monocytes # 0.7 (0-1.0) k/uL Eosinophils # 0.2 (0-0.7) k/uL Basophils # 0.0 (0-0.2) k/uL Anisocytosis Slight PT 10.1 (9.0-12.0) sec INR 1.0 (<1.2) APTT 25.1 (22.0-30.0) sec Sodium 138 (137-145) mmol/L Potassium 4.5 (3.5-5.1) mmol/L Chloride 110 H (98-107) mmol/L Carbon Dioxide 18 L (22-30) mmol/L Anion Gap 10 mmol/L BUN 6 L (7-17) mg/dL Creatinine 0.82 (0.52-1.04) mg/dL Est GFR (CKD-EPI)AfAm >90 (>60 ml/min/1.73 sqM) Est GFR (CKD-EPI)NonAf >90 (>60 ml/min/1.73 sqM) Glucose 88 (74-99) mg/dL Calcium 9.4 (8.4-10.2) mg/dL Total Bilirubin 0.5 (0.2-1.3) mg/dL AST 25 (14-36) U/L ALT 28 (9-52) U/L Alkaline Phosphatase 128 H (38-126) U/L Total Protein 7.5 (6.3-8.2) g/dL Albumin 4.2 (3.5-5.0) g/dL Amylase 99 (30-110) U/L Lipase 84 (23-300) U/L Urine Color Urine Appearance (Clear) Urine pH (5.0-8.0) Ur Specific [place] (1.001-1.035) Urine Protein (Negative) Urine Glucose (UA) (Negative) Urine Ketones (Negative) Urine Blood (Negative) Urine Nitrite (Negative) Urine Bilirubin (Negative) Urine Urobilinogen (<2.0) mg/dL Ur Leukocyte Esterase (Negative) Urine RBC (0-5) /hpf Urine WBC (0-5) /hpf Ur Squamous Epith Cells (0-4) /hpf Urine Bacteria (None) /hpf Urine Mucus (None) /hpf Urine HCG, Qual (Not Detectd) 12/29/17 12/29/17 Range/Units 14:44 14:44 WBC (3.8-10.6) k/uL RBC (3.80-5.40) m/uL Hgb (11.4-16.0) gm/dL Hct (34.0-46.0) % MCV (80.0-100.0) fL MCH (25.0-35.0) pg MCHC (31.0-37.0) g/dL RDW (11.5-15.5) % Plt Count (150-450) k/uL Neutrophils % % Lymphocytes % % Monocytes % % Eosinophils % % Basophils % % Neutrophils # (1.3-7.7) k/uL Lymphocytes # (1.0-4.8) k/uL Monocytes # (0-1.0) k/uL Eosinophils # (0-0.7) k/uL Basophils # (0-0.2) k/uL Anisocytosis PT (9.0-12.0) sec INR (<1.2) APTT (22.0-30.0) sec Sodium (137-145) mmol/L Potassium (3.5-5.1) mmol/L Chloride (98-107) mmol/L Carbon Dioxide (22-30) mmol/L Anion Gap mmol/L BUN (7-17) mg/dL Creatinine (0.52-1.04) mg/dL Est GFR (CKD-EPI)AfAm (>60 ml/min/1.73 sqM) Est GFR (CKD-EPI)NonAf (>60 ml/min/1.73 sqM) Glucose (74-99) mg/dL Calcium (8.4-10.2) mg/dL Total Bilirubin (0.2-1.3) mg/dL AST (14-36) U/L ALT (9-52) U/L Alkaline Phosphatase (38-126) U/L Total Protein (6.3-8.2) g/dL Albumin (3.5-5.0) g/dL Amylase (30-110) U/L Lipase (23-300) U/L Urine Color Light Yellow Urine Appearance Cloudy H (Clear) Urine pH 6.5 (5.0-8.0) Ur Specific [place] 1.005 (1.001-1.035) Urine Protein Negative (Negative) Urine Glucose (UA) Negative (Negative) Urine Ketones Negative (Negative) Urine Blood Negative (Negative) Urine Nitrite Negative (Negative) Urine Bilirubin Negative (Negative) Urine Urobilinogen <2.0 (<2.0) mg/dL Ur Leukocyte Esterase Moderate H (Negative) Urine RBC 2 (0-5) /hpf Urine WBC 4 (0-5) /hpf Ur Squamous Epith Cells 6 H (0-4) /hpf Urine Bacteria Rare H (None) /hpf Urine Mucus Rare H (None) /hpf Urine HCG, Qual Not Detected (Not Detectd) Disposition Clinical Impression: Abdominal pain, Crohns disease Disposition: HOME SELF-CARE Condition: Stable Instructions: Abdominal Pain (ED) Additional Instructions: Please return to the Emergency Department if symptoms worsen or any other concerns. Is patient prescribed a controlled substance at d/c from ED?: No Referrals: Joan Meeks MD [Primary Care Provider] - 1-2 days Time of Disposition: 16:29
[2017-12-29 15:06] LABS: ALT 28 U/L (9-52); AST 25 U/L (14-36); Albumin 4.2 g/dL (3.5-5.0); Alkaline Phosphatase 128 U/L (38-126); Amylase 99 U/L (30-110); Anion Gap 10 mmol/L; Blood Urea Nitrogen 6 mg/dL (7-17); Calcium 9.4 mg/dL (8.4-10.2); Carbon Dioxide 18 mmol/L (22-30); Chloride 110 mmol/L (98-107); Glucose 88 mg/dL (74-99); Lipase 84 U/L (23-300); Potassium 4.5 mmol/L (3.5-5.1); Sodium 138 mmol/L (137-145); Total Bilirubin 0.5 mg/dL (0.2-1.3); Total Protein 7.5 g/dL (6.3-8.2)
[2017-12-29 15:18] LABS: Partial Thromboplastin Time 25.1 sec (22.0-30.0); Prothrombin Time 10.1 sec (9.0-12.0)
[2017-12-29] MEDS ORDERED: DIAZEPAM 5 MG/ML 2 ML INJ IVP STA (15:38)
[2017-12-29 15:41] LABS: Appearance,Urine Cloudy (Clear); Bacteria,Urine Rare /hpf; Bilirubin,Urine Negative (Negative); Blood,Urine Negative (Negative); Color,Urine Light Yellow; Glucose,Urine (UA) Negative (Negative); Ketones,Urine Negative (Negative); Leukocyte Esterase,Urine Moderate (Negative); Mucus,Urine Rare /hpf; Nitrite,Urine Negative (Negative); PH, Urine 6.5 (5.0-8.0); Protein,Urine Negative (Negative); RBC,Urine 2 /hpf (0-5); Specific Gravity,Urine 1.005 (1.001-1.035); Squamous Epithelial Cell,Urine 6 /hpf (0-4); Urobilinogen,Urine <2.0 mg/dL (<2.0); WBC,Urine 4 /hpf (0-5)
[2017-12-29 16:22] VITALS: BP 129/89; PULSE 94; RESP 27
[2017-12-29] MEDS ORDERED: HYDROmorphone 0.5 MG/0.5 ML SYRINGE IVP STA (16:26)
[2017-12-29] MEDS ORDERED: methylPREDNISolone SOD SUCCI 125 MG/2 ML VIAL IV STA (16:29)
== END 2017-12-29 16:55 | disposition home or self-care (01) ==
LOC: EC 14:13
DX: K50.90 Crohn's disease, unspecified, without complications (principal); M79.7 Fibromyalgia; K21.9 Gastro-esophageal reflux disease without esophagitis; G40.909 Epilepsy, unspecified, not intractable, without status epilepticus; E07.9 Disorder of thyroid, unspecified; F41.9 Anxiety disorder, unspecified; F32.9 Major depressive disorder, single episode, unspecified; F17.200 Nicotine dependence, unspecified, uncomplicated; Z87.19 Personal history of other diseases of the digestive system; Z90.49 Acquired absence of other specified parts of digestive tract; Z98.890 Other specified postprocedural states; Z79.899 Other long term (current) drug therapy; Z88.1 Allergy status to other antibiotic agents; Z88.2 Allergy status to sulfonamides; Z88.5 Allergy status to narcotic agent; Z88.6 Allergy status to analgesic agent; Z88.8 Allergy status to other drugs, medicaments and biological substances
CPT/HCPCS: 36415; 80053; 81001; 81025; 82150; 83690; 85025; 85610; 85730; 96361; 96374; 96375; 99284

== ENCOUNTER 2018-01-29 13:35 | Emergency (ER) | payer OTHER ==
[2018-01-29 13:41] VITALS: RESP 16
[2018-01-29] MEDS ORDERED: HYDROmorphone 1 MG/ML 1 ML SYRINGE IVP STA ×2 (13:55→15:59)
[2018-01-29] MEDS ORDERED: SODIUM CHLORIDE 0.9% 1,000 ML IV STA (13:55)
--- NOTE | 2018-01-29 13:58 | ED ---
General Adult HPI - General Chief complaint: Abdominal Pain Stated complaint: Abd.pain Time Seen by Provider: 01/29/18 13:43 Source: patient, RN notes reviewed, old records reviewed Mode of arrival: EMS Limitations: no limitations - History of Present Illness Initial comments: Patient is a pleasant 32-year-old female presenting to the emergency Department with abdominal discomfort. Patient states symptoms have progressed over the past few days. Patient does have chronic abdominal pain with several previous diagnosis including IVS and Crohn's and colitis. No rectal bleeding. No fever. Patient has had nausea and did vomit yesterday. Nausea has resolved with medication by EMS. - Related Data Home Medications Medication Instructions Recorded Confirmed Sertraline HCl [Zoloft] 200 mg PO DAILY 09/24/13 01/29/18 Levothyroxine Sodium [Synthroid] 125 mcg PO QAM 06/05/15 10/11/17 Ranitidine HCl [Zantac] 150 mg PO BID 12/26/15 01/29/18 Divalproex Sodium [Depakote] 2,000 mg PO BID 04/30/16 01/29/18 Ferrous Sulfate [Iron (65 MG 325 mg PO HS 03/09/17 01/29/18 Elemental)] QUEtiapine [SEROquel] 500 mg PO HS 04/22/17 10/11/17 Lisinopril-Hctz 20-25 mg 2 tab PO DAILY 09/06/17 01/29/18 [Zestoretic 20-25] Gabapentin [Neurontin] 800 mg PO TID 10/11/17 01/29/18 Lurasidone [Latuda] 80 mg PO DAILY 10/11/17 01/29/18 Amitriptyline HCl [Elavil] 25 mg MC 01/29/18 01/29/18 Butalb/APAP/Caff 50-325-40Mg 1 tab PO BID PRN 01/29/18 01/29/18 [Fioricet 50-325-40] Ferrous Sulfate [Feosol] 325 mg PO DAILY 01/29/18 01/29/18 HYDROcodone/APAP 10-325MG [[place] 1 tab PO BID 01/29/18 01/29/18 10-325] Phentermine HCl [Adipex-P] 37.5 mg PO DAILY 01/29/18 01/29/18 Prochlorperazine [Compazine] 10 mg PO TID 01/29/18 01/29/18 Propranolol [Inderal] 40 mg PO TID 01/29/18 01/29/18 Simvastatin [Zocor] 20 mg PO HS 01/29/18 01/29/18 Previous Rx's Medication Instructions Recorded Ondansetron Odt [Zofran Odt] 4 mg PO Q8HR PRN #12 tab 10/11/17 Allergies Allergy/AdvReac Type Severity Reaction Status Date / Time dicyclomine [From Bentyl] Allergy Severe Hallucinati Verified 01/29/18 15:04 ons granisetron HCl [From Kytril] Allergy Severe Anaphylaxis Verified 01/29/18 15:04 baclofen Allergy Rash/Hives Verified 01/29/18 15:04 butorphanol tartrate Allergy Rash/Hives Verified 01/29/18 15:04 [From Stadol] ketorolac tromethamine Allergy Rash/Hives Verified 01/29/18 15:04 [From Toradol] meperidine HCl [From Demerol] Allergy Swelling Verified 01/29/18 15:04 methocarbamol [From Robaxin] Allergy Unknown Verified 01/29/18 15:04 sulfamethoxazole Allergy Rash/Hives Verified 01/29/18 15:04 [From Bactrim] trimethoprim [From Bactrim] Allergy Rash/Hives Verified 01/29/18 15:04 codeine AdvReac Vomiting & Verified 01/29/18 15:04 Headache methylprednisolone AdvReac Vomiting & Verified 01/29/18 15:04 [From Medrol] Headache Review of Systems ROS Statement: Those systems with pertinent positive or pertinent negative responses have been documented in the HPI. ROS Other: All systems not noted in ROS Statement are negative. Constitutional: Denies: fever Eyes: Denies: eye pain ENT: Denies: ear pain Respiratory: Denies: cough Cardiovascular: Denies: chest pain Endocrine: Denies: fatigue Gastrointestinal: Reports: abdominal pain, nausea, vomiting Genitourinary: Denies: dysuria Musculoskeletal: Denies: back pain Skin: Denies: rash Neurological: Denies: weakness Past Medical History Past Medical History: Asthma, Fibromyalgia, GERD/Reflux, Neurologic Disorder, Seizure Disorder, Thyroid Disorder Additional Past Medical History / Comment(s): crohns disease, diverticulosis, ibs, carpal tunnel, anemia, chronic back pain , migraines, pinched nerves, History of Any Multi-Drug Resistant Organisms: None Reported Past Surgical History: Adenoidectomy, Appendectomy, Cholecystectomy, Orthopedic Surgery, Tonsillectomy Additional Past Surgical History / Comment(s): EGD/colonoscopy, right ankle surgery Past Anesthesia/Blood Transfusion Reactions: No Reported Reaction Additional Past Anesthesia/Blood Transfusion Reaction / Comment(s): hallucinations Past Psychological History: Anxiety, Depression Smoking Status: Current every day smoker Past Alcohol Use History: None Reported Past Drug Use History: None Reported - Past Family History Father Family Medical History: Diabetes Mellitus, Hyperlipidemia Mother Family Medical History: Cancer, CVA/TIA, Deep Vein Thrombosis (DVT), Osteoarthritis (OA), Thyroid Disorder Additional Family Medical History / Comment(s): Extensive tattoos throughout body General Exam Limitations: no limitations General appearance: alert, in no apparent distress Head exam: Present: atraumatic Eye exam: Present: normal appearance Neck exam: Present: normal inspection Respiratory exam: Present: normal lung sounds bilaterally Cardiovascular Exam: Present: regular rate, normal rhythm Expanded Peripheral pulses: 2+: Dorsalis Pedis (R), Dorsalis Pedis (L) GI/Abdominal exam: Present: soft, tenderness (Mild tenderness to the lower abdomen), normal bowel sounds. Absent: distended, guarding, rebound, rigid, pulsatile mass Extremities exam: Present: normal inspection. Absent: pedal edema, calf tenderness Neurological exam: Present: alert Psychiatric exam: Present: normal affect, normal mood Skin exam: Present: normal color Course Vital Signs 01/29/18 13:39 Temperature 97.7 F Pulse Rate 94 Respiratory 16 Rate Blood Pressure 110/81 O2 Sat by Pulse 96 Oximetry - Reevaluation(s) Reevaluation #1: 01/29/18 13:57 Patient has had overdoses and CT scans of the abdomen in the past few years. Patient is warned of risks regarding radiation exposure. 01/29/18 13:58 Patient is on depo shot Medical Decision Making - Medical Decision Making Patient reevaluated and resting comfortably in bed. Abdomen soft with mild suprapubic tenderness. No guarding. Patient is comfortable with discharge home however does request additional pain medication prior to discharge. Patient states she does have follow-up appointment with her pain doctor and pathological technician on Wednesday. - Lab Data Result diagrams: 01/29/18 13:47 01/29/18 14:19 Lab Results 01/29/18 01/29/18 01/29/18 Range/Units 13:47 13:50 14:19 WBC 12.9 H (3.8-10.6) k/uL RBC 4.26 (3.80-5.40) m/uL Hgb 12.2 (11.4-16.0) gm/dL Hct 38.3 (34.0-46.0) % MCV 90.0 (80.0-100.0) fL MCH 28.7 (25.0-35.0) pg MCHC 31.9 (31.0-37.0) g/dL RDW 17.0 H (11.5-15.5) % Plt Count 524 H (150-450) k/uL Neutrophils % 59 % Lymphocytes % 33 % Monocytes % 4 % Eosinophils % 2 % Basophils % 0 % Neutrophils # 7.6 (1.3-7.7) k/uL Lymphocytes # 4.2 (1.0-4.8) k/uL Monocytes # 0.5 (0-1.0) k/uL Eosinophils # 0.2 (0-0.7) k/uL Basophils # 0.1 (0-0.2) k/uL Anisocytosis Slight Sodium 136 L (137-145) mmol/L Potassium 4.0 (3.5-5.1) mmol/L Chloride 108 H (98-107) mmol/L Carbon Dioxide 21 L (22-30) mmol/L Anion Gap 7 mmol/L BUN 6 L (7-17) mg/dL Creatinine 0.79 (0.52-1.04) mg/dL Est GFR (CKD-EPI)AfAm >90 (>60 ml/min/1.73 sqM) Est GFR (CKD-EPI)NonAf >90 (>60 ml/min/1.73 sqM) Glucose 82 (74-99) mg/dL Calcium 9.1 (8.4-10.2) mg/dL Total Bilirubin 0.5 (0.2-1.3) mg/dL AST 18 (14-36) U/L ALT 21 (9-52) U/L Alkaline Phosphatase 102 (38-126) U/L Total Protein 7.0 (6.3-8.2) g/dL Albumin 3.8 (3.5-5.0) g/dL Amylase 87 (30-110) U/L Lipase 53 (23-300) U/L Urine Color Light Yellow Urine Appearance Clear (Clear) Urine pH 6.0 (5.0-8.0) Ur Specific [place] 1.010 (1.001-1.035) Urine Protein Negative (Negative) Urine Glucose (UA) Negative (Negative) Urine Ketones Negative (Negative) Urine Blood Negative (Negative) Urine Nitrite Negative (Negative) Urine Bilirubin Negative (Negative) Urine Urobilinogen <2.0 (<2.0) mg/dL Ur Leukocyte Esterase Small H (Negative) Urine WBC 3 (0-5) /hpf Ur Squamous Epith Cells 1 (0-4) /hpf Urine Mucus Rare H (None) /hpf - Radiology Data Radiology results: image reviewed (Abdominal x-ray shows no acute process) Disposition Clinical Impression: Chronic abdominal pain Disposition: HOME SELF-CARE Condition: Stable Instructions: Abdominal Pain (ED), Chronic Pain (ED) Additional Instructions: Please follow-up with both your pathological technician and pain management doctor on Wednesday as scheduled. Please also follow-up primary care physician in the next day or 2. Return for fevers, vomiting, bleeding, worsening or change in pain, or other concerns. Is patient prescribed a controlled substance at d/c from ED?: No Referrals: Joan Meeks MD [Primary Care Provider] - 1-2 days Time of Disposition: 15:59
[2018-01-29 14:40] LABS: Anisocytosis Slight; Basophils # (A) 0.1 k/uL (0-0.2); Basophils % (A) 0 %; Eosinophils # (A) 0.2 k/uL (0-0.7); Eosinophils % (A) 2 %; HCT 38.3 % (34.0-46.0); HGB 12.2 gm/dL (11.4-16.0); Lymphocytes # (A) 4.2 k/uL (1.0-4.8); Lymphocytes % (A) 33 %; MCH 28.7 pg (25.0-35.0); MCHC 31.9 g/dL (31.0-37.0); Mean Platelet Volume 6.8; Monocytes # (A) 0.5 k/uL (0-1.0); Monocytes % (A) 4 %; Neutrophils # (A) 7.6 k/uL (1.3-7.7); Neutrophils % (A) 59 %; Platelet Count 524 k/uL (150-450); RBC 4.26 m/uL (3.80-5.40); WBC 12.9 k/uL (3.8-10.6)
[2018-01-29 14:46] LABS: Appearance,Urine Clear (Clear); Bilirubin,Urine Negative (Negative); Blood,Urine Negative (Negative); Color,Urine Light Yellow; Glucose,Urine (UA) Negative (Negative); Ketones,Urine Negative (Negative); Leukocyte Esterase,Urine Small (Negative); Mucus,Urine Rare /hpf; Nitrite,Urine Negative (Negative); Protein,Urine Negative (Negative); Squamous Epithelial Cell,Urine 1 /hpf (0-4); Urobilinogen,Urine <2.0 mg/dL (<2.0); WBC,Urine 3 /hpf (0-5)
[2018-01-29 14:51] LABS: ALT 21 U/L (9-52); AST 18 U/L (14-36); Albumin 3.8 g/dL (3.5-5.0); Alkaline Phosphatase 102 U/L (38-126); Amylase 87 U/L (30-110); Anion Gap 7 mmol/L; Blood Urea Nitrogen 6 mg/dL (7-17); Calcium 9.1 mg/dL (8.4-10.2); Carbon Dioxide 21 mmol/L (22-30); Chloride 108 mmol/L (98-107); Glucose 82 mg/dL (74-99); Lipase 53 U/L (23-300); Sodium 136 mmol/L (137-145); Total Bilirubin 0.5 mg/dL (0.2-1.3)
--- NOTE | 2018-01-29 15:18 | XR ---
EXAMINATION TYPE: XR KUB DATE OF EXAM: 01/29/2018 COMPARISON: 09/06/2017 HISTORY: Abdominal pain TECHNIQUE: 2 views upright FINDINGS: There is no sign of intestinal obstruction or pneumoperitoneum. Fecal pattern is normal. Th ere are clips from cholecystectomy. Lung bases are clear. IMPRESSION: Nonacute abdomen. No change.
[2018-01-29 16:32] VITALS: BP 134/70; PULSE 68; TEMP 97.8
== END 2018-01-29 16:31 | disposition home or self-care (01) ==
LOC: EC 13:35
DX: R10.30 Lower abdominal pain, unspecified (principal); G89.29 Other chronic pain; R11.10 Vomiting, unspecified; M79.7 Fibromyalgia; K21.9 Gastro-esophageal reflux disease without esophagitis; K58.9 Irritable bowel syndrome, unspecified; G40.909 Epilepsy, unspecified, not intractable, without status epilepticus; G43.909 Migraine, unspecified, not intractable, without status migrainosus; E07.9 Disorder of thyroid, unspecified; D64.9 Anemia, unspecified; M54.9 Dorsalgia, unspecified; F32.9 Major depressive disorder, single episode, unspecified; F41.9 Anxiety disorder, unspecified; F17.200 Nicotine dependence, unspecified, uncomplicated; Z79.891 Long term (current) use of opiate analgesic; Z79.899 Other long term (current) drug therapy; Z88.5 Allergy status to narcotic agent; Z88.6 Allergy status to analgesic agent; Z88.2 Allergy status to sulfonamides; Z88.8 Allergy status to other drugs, medicaments and biological substances; Z90.49 Acquired absence of other specified parts of digestive tract
CPT/HCPCS: 36415; 80053; 82150; 83690; 85025; 81001; 74018; 99285; 96374; 96376; 96361; J1170

== ENCOUNTER 2018-02-07 20:09 | Emergency (ER) | payer OTHER ==
[2018-02-07] MEDS ORDERED: SODIUM CHLORIDE 0.9% 1,000 ML IV STA ×2 (20:29)
[2018-02-07] MEDS ORDERED: MORPHINE SULFATE 4 MG/ML SYRINGE IVP STA (20:41)
[2018-02-07] MEDS ORDERED: ONDANSETRON 4 MG/2 ML VIAL IVP STA (20:41)
--- NOTE | 2018-02-07 20:43 | ED ---
Abdominal Pain HPI - General Chief Complaint: Abdominal Pain Stated Complaint: vomiting Time Seen by Provider: 02/07/18 20:29 Source: patient, EMS, RN notes reviewed, old records reviewed Mode of arrival: EMS Limitations: no limitations - History of Present Illness Initial Comments: Patient is a 4 year old female with history of Crohn's process emergency department today with chief complaint of abdominal pain and vomiting episodes started today. Patient states she's had no fevers or chills. She states that she did have episodes of hematemesis, coffee-ground colored. Patient states that she's had no recent fevers or chills. Her symptoms started today. Surgical history includes cholecystectomy and appendectomy. Patient also reports she did not go to PCP appt today due to vomiting. She could not get her Rx for anxiety mediation, and has been removed from getting pain med from Dr. Bonilla. - Related Data Home Medications Medication Instructions Recorded Confirmed Sertraline HCl [Zoloft] 200 mg PO DAILY 09/24/13 02/07/18 Levothyroxine Sodium [Synthroid] 125 mcg PO QAM 06/05/15 02/07/18 Ranitidine HCl [Zantac] 150 mg PO BID 12/26/15 02/07/18 Divalproex Sodium [Depakote] 2,000 mg PO BID 04/30/16 02/07/18 QUEtiapine [SEROquel] 500 mg PO HS 04/22/17 02/07/18 Lisinopril-Hctz 20-25 mg 2 tab PO DAILY 09/06/17 02/07/18 [Zestoretic 20-25] Gabapentin [Neurontin] 800 mg PO TID 10/11/17 02/07/18 Lurasidone [Latuda] 80 mg PO DAILY 10/11/17 02/07/18 Amitriptyline HCl [Elavil] 25 mg PO DAILY 01/29/18 02/07/18 Butalb/APAP/Caff 50-325-40Mg 1 tab PO BID PRN 01/29/18 02/07/18 [Fioricet 50-325-40] Ferrous Sulfate [Feosol] 325 mg PO DAILY 01/29/18 02/07/18 Phentermine HCl [Adipex-P] 37.5 mg PO DAILY 01/29/18 02/07/18 Propranolol [Inderal] 40 mg PO TID 01/29/18 02/07/18 Simvastatin [Zocor] 20 mg PO HS 01/29/18 02/07/18 Beclomethasone Dipropionate [Qvar 2 puff INHALATION DAILY 02/07/18 02/07/18 80 mcg] Previous Rx's Medication Instructions Recorded Ondansetron Odt [Zofran Odt] 4 mg PO Q8HR PRN #12 tab 10/11/17 Ondansetron Odt [Zofran Odt] 4 mg PO Q8HR PRN #12 tab 02/07/18 predniSONE 50 mg PO DAILY #5 tablet 02/07/18 Allergies Allergy/AdvReac Type Severity Reaction Status Date / Time dicyclomine [From Bentyl] Allergy Severe Hallucinati Verified 02/07/18 20:15 ons granisetron HCl [From Kytril] Allergy Severe Anaphylaxis Verified 02/07/18 20:15 baclofen Allergy Rash/Hives Verified 02/07/18 20:15 butorphanol tartrate Allergy Rash/Hives Verified 02/07/18 20:15 [From Stadol] ketorolac tromethamine Allergy Rash/Hives Verified 02/07/18 20:15 [From Toradol] meperidine HCl [From Demerol] Allergy Swelling Verified 02/07/18 20:15 methocarbamol [From Robaxin] Allergy Unknown Verified 02/07/18 20:15 sulfamethoxazole Allergy Rash/Hives Verified 02/07/18 20:15 [From Bactrim] trimethoprim [From Bactrim] Allergy Rash/Hives Verified 02/07/18 20:15 codeine AdvReac Vomiting & Verified 02/07/18 20:15 Headache methylprednisolone AdvReac Vomiting & Verified 02/07/18 20:15 [From Medrol] Headache Review of Systems ROS Statement: Those systems with pertinent positive or pertinent negative responses have been documented in the HPI. ROS Other: All systems not noted in ROS Statement are negative. Past Medical History Past Medical History: Asthma, Fibromyalgia, GERD/Reflux, Neurologic Disorder, Seizure Disorder, Thyroid Disorder Additional Past Medical History / Comment(s): crohns disease, diverticulosis, ibs, carpal tunnel, anemia, chronic back pain , migraines, pinched nerves, History of Any Multi-Drug Resistant Organisms: None Reported Past Surgical History: Adenoidectomy, Appendectomy, Cholecystectomy, Orthopedic Surgery, Tonsillectomy Additional Past Surgical History / Comment(s): EGD/colonoscopy, right ankle surgery Past Anesthesia/Blood Transfusion Reactions: No Reported Reaction Additional Past Anesthesia/Blood Transfusion Reaction / Comment(s): hallucinations Past Psychological History: Anxiety, Depression Smoking Status: Current every day smoker Past Alcohol Use History: None Reported Past Drug Use History: None Reported - Past Family History Father Family Medical History: Diabetes Mellitus, Hyperlipidemia Mother Family Medical History: Cancer, CVA/TIA, Deep Vein Thrombosis (DVT), Osteoarthritis (OA), Thyroid Disorder Additional Family Medical History / Comment(s): Extensive tattoos throughout body General Exam - General Exam Comments Initial Comments: 32 year old female, appears in acute discomfort. Limitations: no limitations General appearance: alert, in no apparent distress Head exam: Present: atraumatic, normocephalic, normal inspection Eye exam: Present: normal appearance ENT exam: Present: normal exam, mucous membranes moist Neck exam: Present: normal inspection. Absent: tenderness, meningismus, lymphadenopathy Respiratory exam: Present: normal lung sounds bilaterally. Absent: respiratory distress, wheezes, rales, rhonchi, stridor Cardiovascular Exam: Present: regular rate, normal rhythm, normal heart sounds. Absent: systolic murmur, diastolic murmur, rubs, gallop, clicks GI/Abdominal exam: Present: soft, tenderness (diffuse), normal bowel sounds. Absent: distended, guarding, rebound, rigid Back exam: Present: normal inspection Neurological exam: Present: alert, oriented X3, CN II-XII intact Psychiatric exam: Present: normal affect, normal mood Course Vital Signs 02/07/18 02/07/18 02/07/18 20:11 20:53 22:11 Temperature 98.7 F Pulse Rate 77 98 83 Respiratory 28 H 22 20 Rate Blood Pressure 106/61 117/94 138/78 O2 Sat by Pulse 96 98 99 Oximetry 02/07/18 23:50 Temperature 98.1 F Pulse Rate 84 Respiratory 16 Rate Blood Pressure 137/100 O2 Sat by Pulse 98 Oximetry Medical Decision Making - Medical Decision Making 32 year old female presents with diffuse abdominal pain, emesis, and reports hemataemesis. No vomiting in ED. Patient given IV fluids and labs obtained. She later reports she is out of anxiety meds and painmeds. She has history of Chrons disease. Labs are normal, she does have fecal positive test. Patient pain is likely an acute chron's flare up. Discussed using nausea medication, and short course of steriods. Patient will see GI specialist this week. Return parameters discussed. - Lab Data Result diagrams: 02/07/18 20:15 02/07/18 20:15 Lab Results 02/07/18 02/07/18 02/07/18 Range/Units 20:15 20:15 20:15 WBC 9.6 (3.8-10.6) k/uL RBC 4.27 (3.80-5.40) m/uL Hgb 12.8 (11.4-16.0) gm/dL Hct 38.5 (34.0-46.0) % MCV 90.3 (80.0-100.0) fL MCH 30.0 (25.0-35.0) pg MCHC 33.2 (31.0-37.0) g/dL RDW 17.3 H (11.5-15.5) % Plt Count 502 H (150-450) k/uL Neutrophils % 39 % Lymphocytes % 49 % Monocytes % 7 % Eosinophils % 2 % Basophils % 0 % Neutrophils # 3.7 (1.3-7.7) k/uL Lymphocytes # 4.7 (1.0-4.8) k/uL Monocytes # 0.7 (0-1.0) k/uL Eosinophils # 0.2 (0-0.7) k/uL Basophils # 0.0 (0-0.2) k/uL Anisocytosis Slight PT 10.3 (9.0-12.0) sec INR 1.1 (<1.2) APTT 25.2 (22.0-30.0) sec Sodium 138 (137-145) mmol/L Potassium 3.7 (3.5-5.1) mmol/L Chloride 110 H (98-107) mmol/L Carbon Dioxide 20 L (22-30) mmol/L Anion Gap 8 mmol/L BUN 4 L (7-17) mg/dL Creatinine 0.82 (0.52-1.04) mg/dL Est GFR (CKD-EPI)AfAm >90 (>60 ml/min/1.73 sqM) Est GFR (CKD-EPI)NonAf >90 (>60 ml/min/1.73 sqM) Glucose 93 (74-99) mg/dL Calcium 9.2 (8.4-10.2) mg/dL Total Bilirubin 0.2 (0.2-1.3) mg/dL AST 17 (14-36) U/L ALT 20 (9-52) U/L Alkaline Phosphatase 110 (38-126) U/L Total Protein 6.7 (6.3-8.2) g/dL Albumin 3.7 (3.5-5.0) g/dL Amylase 68 (30-110) U/L Lipase 67 (23-300) U/L Urine Color Urine Appearance (Clear) Urine pH (5.0-8.0) Ur Specific [place] (1.001-1.035) Urine Protein (Negative) Urine Glucose (UA) (Negative) Urine Ketones (Negative) Urine Blood (Negative) Urine Nitrite (Negative) Urine Bilirubin (Negative) Urine Urobilinogen (<2.0) mg/dL Ur Leukocyte Esterase (Negative) Urine RBC (0-5) /hpf Urine WBC (0-5) /hpf Ur Squamous Epith Cells (0-4) /hpf Urine Bacteria (None) /hpf Urine Mucus (None) /hpf Stool Occult Blood (Negative) 02/07/18 02/07/18 Range/Units 20:45 20:50 WBC (3.8-10.6) k/uL RBC (3.80-5.40) m/uL Hgb (11.4-16.0) gm/dL Hct (34.0-46.0) % MCV (80.0-100.0) fL MCH (25.0-35.0) pg MCHC (31.0-37.0) g/dL RDW (11.5-15.5) % Plt Count (150-450) k/uL Neutrophils % % Lymphocytes % % Monocytes % % Eosinophils % % Basophils % % Neutrophils # (1.3-7.7) k/uL Lymphocytes # (1.0-4.8) k/uL Monocytes # (0-1.0) k/uL Eosinophils # (0-0.7) k/uL Basophils # (0-0.2) k/uL Anisocytosis PT (9.0-12.0) sec INR (<1.2) APTT (22.0-30.0) sec Sodium (137-145) mmol/L Potassium (3.5-5.1) mmol/L Chloride (98-107) mmol/L Carbon Dioxide (22-30) mmol/L Anion Gap mmol/L BUN (7-17) mg/dL Creatinine (0.52-1.04) mg/dL Est GFR (CKD-EPI)AfAm (>60 ml/min/1.73 sqM) Est GFR (CKD-EPI)NonAf (>60 ml/min/1.73 sqM) Glucose (74-99) mg/dL Calcium (8.4-10.2) mg/dL Total Bilirubin (0.2-1.3) mg/dL AST (14-36) U/L ALT (9-52) U/L Alkaline Phosphatase (38-126) U/L Total Protein (6.3-8.2) g/dL Albumin (3.5-5.0) g/dL Amylase (30-110) U/L Lipase (23-300) U/L Urine Color Light Yellow Urine Appearance Clear (Clear) Urine pH 6.5 (5.0-8.0) Ur Specific [place] 1.009 (1.001-1.035) Urine Protein Negative (Negative) Urine Glucose (UA) Negative (Negative) Urine Ketones Negative (Negative) Urine Blood Negative (Negative) Urine Nitrite Negative (Negative) Urine Bilirubin Negative (Negative) Urine Urobilinogen <2.0 (<2.0) mg/dL Ur Leukocyte Esterase Trace H (Negative) Urine RBC 1 (0-5) /hpf Urine WBC 3 (0-5) /hpf Ur Squamous Epith Cells 2 (0-4) /hpf Urine Bacteria Rare H (None) /hpf Urine Mucus Rare H (None) /hpf Stool Occult Blood Positive H (Negative) Disposition Clinical Impression: Crohns disease, Acute colitis, Anxiety Disposition: HOME SELF-CARE Condition: Good Instructions: Colitis (ED) Additional Instructions: Follow-up with GI specialist. Return to emergency department if any alarming signs or symptoms occur. Prescriptions: Ondansetron Odt [Zofran Odt] 4 mg PO Q8HR PRN #12 tab PRN Reason: Nausea predniSONE 50 mg PO DAILY #5 tablet Is patient prescribed a controlled substance at d/c from ED?: No Referrals: Joan Meeks MD [Primary Care Provider] - 1-2 days Time of Disposition: 23:12
[2018-02-07 20:57] LABS: Anisocytosis Slight; Basophils % (A) 0 %; Eosinophils # (A) 0.2 k/uL (0-0.7); Eosinophils % (A) 2 %; HCT 38.5 % (34.0-46.0); HGB 12.8 gm/dL (11.4-16.0); Lymphocytes # (A) 4.7 k/uL (1.0-4.8); Lymphocytes % (A) 49 %; MCHC 33.2 g/dL (31.0-37.0); MCV 90.3 fL (80.0-100.0); Mean Platelet Volume 7.2; Monocytes # (A) 0.7 k/uL (0-1.0); Monocytes % (A) 7 %; Neutrophils # (A) 3.7 k/uL (1.3-7.7); Neutrophils % (A) 39 %; Platelet Count 502 k/uL (150-450); RBC 4.27 m/uL (3.80-5.40); RDW 17.3 % (11.5-15.5); WBC 9.6 k/uL (3.8-10.6)
[2018-02-07 21:05] LABS: INR 1.1 (<1.2); Partial Thromboplastin Time 25.2 sec (22.0-30.0); Prothrombin Time 10.3 sec (9.0-12.0)
[2018-02-07 21:06] LABS: ALT 20 U/L (9-52); AST 17 U/L (14-36); Albumin 3.7 g/dL (3.5-5.0); Alkaline Phosphatase 110 U/L (38-126); Amylase 68 U/L (30-110); Anion Gap 8 mmol/L; Blood Urea Nitrogen 4 mg/dL (7-17); Calcium 9.2 mg/dL (8.4-10.2); Carbon Dioxide 20 mmol/L (22-30); Chloride 110 mmol/L (98-107); Glucose 93 mg/dL (74-99); Lipase 67 U/L (23-300); Potassium 3.7 mmol/L (3.5-5.1); Sodium 138 mmol/L (137-145); Total Bilirubin 0.2 mg/dL (0.2-1.3); Total Protein 6.7 g/dL (6.3-8.2)
[2018-02-07 21:13] LABS: Appearance,Urine Clear (Clear); Bacteria,Urine Rare /hpf; Bilirubin,Urine Negative (Negative); Blood,Urine Negative (Negative); Color,Urine Light Yellow; Glucose,Urine (UA) Negative (Negative); Ketones,Urine Negative (Negative); Leukocyte Esterase,Urine Trace (Negative); Mucus,Urine Rare /hpf; Nitrite,Urine Negative (Negative); PH, Urine 6.5 (5.0-8.0); Protein,Urine Negative (Negative); RBC,Urine 1 /hpf (0-5); Specific Gravity,Urine 1.009 (1.001-1.035); Squamous Epithelial Cell,Urine 2 /hpf (0-4); Urobilinogen,Urine <2.0 mg/dL (<2.0); WBC,Urine 3 /hpf (0-5)
--- NOTE | 2018-02-07 22:45 | XR ---
EXAMINATION TYPE: XR KUB DATE OF EXAM: 02/07/2018 COMPARISON: NONE HISTORY: Abdominal pain TECHNIQUE: 2 views upright FINDINGS: There is no sign of intestinal obstruction or pneumoperitoneum. There are clips from cholec ystectomy. I see no evidence of a mass. Lung bases are clear. Fecal pattern is fairly normal. There a re no pathologic calcifications over the kidneys. IMPRESSION: Nonacute abdomen.
[2018-02-07] MEDS ORDERED: MORPHINE SULFATE 2 MG/ML SYRINGE IVP ONE (23:15)
[2018-02-07] MEDS ORDERED: METOCLOPRAMIDE 5 MG/ML 2 ML VIAL IVP STA (23:15)
[2018-02-07] MEDS: diphenhydrAMINE 50 MG/ML 1 ML VIAL IVP STA ×2 (23:28→23:34)
[2018-02-07 23:51] VITALS: BP 137/100; PULSE 84; RESP 16; TEMP 98.1
== END 2018-02-07 23:51 | disposition home or self-care (01) ==
LOC: EC 20:09 → SUPCPDRO 20:09 → EC 23:51
DX: K50.90 Crohn's disease, unspecified, without complications (principal); K52.9 Noninfective gastroenteritis and colitis, unspecified; F41.9 Anxiety disorder, unspecified; J45.909 Unspecified asthma, uncomplicated; F32.9 Major depressive disorder, single episode, unspecified; K21.9 Gastro-esophageal reflux disease without esophagitis; G40.909 Epilepsy, unspecified, not intractable, without status epilepticus; M79.7 Fibromyalgia; D64.9 Anemia, unspecified; F17.200 Nicotine dependence, unspecified, uncomplicated; Z88.2 Allergy status to sulfonamides; Z88.5 Allergy status to narcotic agent; Z88.6 Allergy status to analgesic agent; Z88.8 Allergy status to other drugs, medicaments and biological substances; Z79.51 Long term (current) use of inhaled steroids; Z79.899 Other long term (current) drug therapy; Z86.69 Personal history of other diseases of the nervous system and sense organs; Z90.49 Acquired absence of other specified parts of digestive tract; Z53.20 Procedure and treatment not carried out because of patient's decision for unspecified reasons
CPT/HCPCS: 99285; 96374; 96375 ×2; 96376; 96361 ×3; 36415; 80053; 82150; 83690; 85025; 85610; 85730; 82272; 81001; 74018; J2270 ×2; J2765; J2405

== ENCOUNTER 2018-04-01 15:15 | Emergency (ER) | payer OTHER ==
[2018-04-01 15:38] VITALS: RESP 18; TEMP 98.1
--- NOTE | 2018-04-01 16:34 | ED ---
General Adult HPI - General Chief complaint: Extremity Problem,Nontraumatic Stated complaint: Foot/leg pain Time Seen by Provider: 04/01/18 15:22 Source: patient, RN notes reviewed Mode of arrival: ambulatory Limitations: no limitations - History of Present Illness Initial comments: Patient is a 33-year-old female with history of fibromyalgia and nerve damage who presents emergency department with complains of right foot and lower leg pain that started this morning. She denies any trauma or injury to the area. She reports she did have surgery on her right ankle last year and had a plate put in her lower leg after she fractured her ankle. She took [place] this morning and was given fentanyl by EMS, she reports that this did not help her pain much. She reports the pain is worse with weight bearing. Patient denies any recent fever, chills, shortness of breath, chest pain, back pain, abdominal pain, nausea or vomiting, numbness or tingling, headaches or visual changes, or any other complaints. - Related Data Home Medications Medication Instructions Recorded Confirmed Sertraline HCl [Zoloft] 200 mg PO DAILY 09/24/13 02/07/18 Levothyroxine Sodium [Synthroid] 125 mcg PO QAM 06/05/15 02/07/18 Ranitidine HCl [Zantac] 150 mg PO BID 12/26/15 02/07/18 Divalproex Sodium [Depakote] 2,000 mg PO BID 04/30/16 02/07/18 QUEtiapine [SEROquel] 500 mg PO HS 04/22/17 02/07/18 Lisinopril-Hctz 20-25 mg 2 tab PO DAILY 09/06/17 02/07/18 [Zestoretic 20-25] Gabapentin [Neurontin] 800 mg PO TID 10/11/17 02/07/18 Lurasidone [Latuda] 80 mg PO DAILY 10/11/17 02/07/18 Amitriptyline HCl [Elavil] 25 mg PO DAILY 01/29/18 02/07/18 Butalb/APAP/Caff 50-325-40Mg 1 tab PO BID PRN 01/29/18 02/07/18 [Fioricet 50-325-40] Ferrous Sulfate [Feosol] 325 mg PO DAILY 01/29/18 02/07/18 Phentermine HCl [Adipex-P] 37.5 mg PO DAILY 01/29/18 02/07/18 Propranolol [Inderal] 40 mg PO TID 01/29/18 02/07/18 Simvastatin [Zocor] 20 mg PO HS 01/29/18 02/07/18 Beclomethasone Dipropionate [Qvar 2 puff INHALATION DAILY 02/07/18 02/07/18 80 mcg] Previous Rx's Medication Instructions Recorded Ondansetron Odt [Zofran Odt] 4 mg PO Q8HR PRN #12 tab 10/11/17 Ondansetron Odt [Zofran Odt] 4 mg PO Q8HR PRN #12 tab 02/07/18 predniSONE 50 mg PO DAILY #5 tablet 02/07/18 Allergies Allergy/AdvReac Type Severity Reaction Status Date / Time dicyclomine [From Bentyl] Allergy Severe Hallucinati Verified 02/07/18 20:15 ons granisetron HCl [From Kytril] Allergy Severe Anaphylaxis Verified 02/07/18 20:15 baclofen Allergy Rash/Hives Verified 02/07/18 20:15 butorphanol tartrate Allergy Rash/Hives Verified 02/07/18 20:15 [From Stadol] ketorolac tromethamine Allergy Rash/Hives Verified 02/07/18 20:15 [From Toradol] meperidine HCl [From Demerol] Allergy Swelling Verified 02/07/18 20:15 methocarbamol [From Robaxin] Allergy Unknown Verified 02/07/18 20:15 sulfamethoxazole Allergy Rash/Hives Verified 02/07/18 20:15 [From Bactrim] trimethoprim [From Bactrim] Allergy Rash/Hives Verified 02/07/18 20:15 codeine AdvReac Vomiting & Verified 02/07/18 20:15 Headache methylprednisolone AdvReac Vomiting & Verified 02/07/18 20:15 [From Medrol] Headache Review of Systems ROS Statement: Those systems with pertinent positive or pertinent negative responses have been documented in the HPI. ROS Other: All systems not noted in ROS Statement are negative. Past Medical History Past Medical History: Asthma, Fibromyalgia, GERD/Reflux, Neurologic Disorder, Seizure Disorder, Thyroid Disorder Additional Past Medical History / Comment(s): crohns disease, diverticulosis, ibs, carpal tunnel, anemia, chronic back pain , migraines, pinched nerves, History of Any Multi-Drug Resistant Organisms: None Reported Past Surgical History: Adenoidectomy, Appendectomy, Cholecystectomy, Orthopedic Surgery, Tonsillectomy Additional Past Surgical History / Comment(s): EGD/colonoscopy, right ankle surgery Past Anesthesia/Blood Transfusion Reactions: No Reported Reaction Additional Past Anesthesia/Blood Transfusion Reaction / Comment(s): hallucinations Past Psychological History: Anxiety, Depression Smoking Status: Current every day smoker Past Alcohol Use History: None Reported Past Drug Use History: None Reported - Past Family History Father Family Medical History: Diabetes Mellitus, Hyperlipidemia Mother Family Medical History: Cancer, CVA/TIA, Deep Vein Thrombosis (DVT), Osteoarthritis (OA), Thyroid Disorder Additional Family Medical History / Comment(s): Extensive tattoos throughout body General Exam Limitations: no limitations General appearance: alert Head exam: Present: atraumatic, normocephalic Eye exam: Present: normal appearance Respiratory exam: Present: normal lung sounds bilaterally Cardiovascular Exam: Present: regular rate, normal rhythm Extremities exam: Present: normal inspection, full ROM, tenderness (Right foot and lower leg.), normal capillary refill, calf tenderness (Right.), other (DP and PT pulses palpable and strong bilaterally.) Neurological exam: Present: alert, oriented X3, abnormal gait (Limping.) Skin exam: Present: warm, dry, normal color Course Vital Signs 04/01/18 04/01/18 15:30 18:59 Temperature 98.1 F Pulse Rate 108 H 98 Respiratory 18 18 Rate Blood Pressure 133/81 138/73 O2 Sat by Pulse 97 98 Oximetry Medical Decision Making - Medical Decision Making Venous doppler right leg is negative for DVT. Right foot x-ray is negative. Right tib/fib x-ray reveals previous surgery with old healed fractures of the distal tibia and fibula. There is a plate with screws fixing the distal tibua and fibula. Patient states she has tolerated morphine in the past without reaction. She states that she will have someone else driving today. Case discussed in detail with attending physician Dr. Awan. Disposition Clinical Impression: Right foot pain Disposition: HOME SELF-CARE Condition: Good Instructions: Arthralgia (ED) Additional Instructions: Follow-up with your PCP in 1 to 2 days. Follow-up with your surgeon in 1-2 days. Return to the emergency department if your symptoms worsen or any other concerns. Is patient prescribed a controlled substance at d/c from ED?: No Referrals: Joan Meeks MD [Primary Care Provider] - 1-2 days
--- NOTE | 2018-04-01 16:39 | XR ---
EXAMINATION TYPE: XR foot complete RT DATE OF EXAM: 04/01/2018 COMPARISON: 04/24/2017 HISTORY: Foot pain TECHNIQUE: 3 views FINDINGS: There is a plate with screws fixing the distal fibula. There is plate with screws fixing di stal tibia. Metatarsals are intact. I see no fracture nor dislocation. Joint spaces are fairly normal . IMPRESSION: No acute abnormality of the right foot. No change.
--- NOTE | 2018-04-01 17:22 | XR ---
EXAMINATION TYPE: XR tibia fibula RT DATE OF EXAM: 04/01/2018 COMPARISON: NONE HISTORY: Right leg pain TECHNIQUE: 3 views FINDINGS: There is a plate with screws fixing the distal tibia and fibula. Ankle mortise is anatomic. Knee joint is intact. I see no fracture nor dislocation. IMPRESSION: Previous surgery. No fracture seen. Old healed fractures distal tibia and fibula. Ankle a ppears unchanged compared to 04/22/2017.
--- NOTE | 2018-04-01 18:12 | US ---
EXAMINATION TYPE: US venous doppler duplex LE RT DATE OF EXAM: 04/01/2018 4:31 PM COMPARISON: NONE CLINICAL HISTORY: Pain. Leg pain. No hx of blood clots. No blood thinners. No swelling. No rednes s. SIDE PERFORMED: Right TECHNIQUE: The lower extremity deep venous system is examined utilizing real time linear array sonog kapil with graded compression, doppler sonography and color-flow sonography. VESSELS IMAGED: External Iliac Vein (EIV) Common Femoral Vein Deep Femoral Vein Greater Saphenous Vein * Femoral Vein Popliteal Vein Small Saphenous Vein * Proximal Calf Veins (* superficial vessels) Right Leg: Negative for DVT IMPRESSION: No evidence of deep venous thrombosis in the right leg.
[2018-04-01 19:00] VITALS: BP 138/73; PULSE 98
[2018-04-01] MEDS ORDERED: MORPHINE SULFATE 4 MG/ML SYRINGE IM STA (19:11)
== END 2018-04-01 19:35 | disposition home or self-care (01) ==
LOC: EC 15:15
DX: M79.671 Pain in right foot (principal); J45.909 Unspecified asthma, uncomplicated; K21.9 Gastro-esophageal reflux disease without esophagitis; M79.7 Fibromyalgia; G40.909 Epilepsy, unspecified, not intractable, without status epilepticus; E07.9 Disorder of thyroid, unspecified; F41.9 Anxiety disorder, unspecified; F32.9 Major depressive disorder, single episode, unspecified; F17.200 Nicotine dependence, unspecified, uncomplicated; Z98.890 Other specified postprocedural states; Z96.89 Presence of other specified functional implants; Z87.81 Personal history of (healed) traumatic fracture; Z79.51 Long term (current) use of inhaled steroids; Z79.899 Other long term (current) drug therapy; Z88.8 Allergy status to other drugs, medicaments and biological substances; Z88.5 Allergy status to narcotic agent; Z88.6 Allergy status to analgesic agent; Z88.2 Allergy status to sulfonamides
CPT/HCPCS: 73590; 73630; 93971; 99284; 96372; J2270

== ENCOUNTER 2018-05-14 16:16 | Emergency (ER) | payer OTHER ==
[2018-05-14 16:21] VITALS: RESP 18
[2018-05-14] MEDS ORDERED: HYDROmorphone 0.5 MG/0.5 ML SYRINGE IVP STA (17:01)
[2018-05-14] MEDS ORDERED: ONDANSETRON 4 MG/2 ML VIAL IVP STA (17:01)
[2018-05-14] MEDS ORDERED: SODIUM CHLORIDE 0.9% 1,000 ML IV STA ×2 (17:01)
--- NOTE | 2018-05-14 17:06 | ED ---
Abdominal Pain HPI - General Chief Complaint: Abdominal Pain Stated Complaint: ABDOMINAL PAIN Time Seen by Provider: 05/14/18 16:47 Source: patient Mode of arrival: ambulatory Limitations: no limitations - History of Present Illness Initial Comments: Patient is a 33-year-old female presenting for abdominal pain. The patient states that she has a history of Crohn's and has had her appendix removed. This particular pain is been present for the last week and feels a constant sharp sensation that comes in waves. It is located in the lower portion of her abdomen all the way across it. It does not radiate and she states that it hurts when she walks. She admits to nausea but no vomiting or diarrhea or fevers/chills. She states that her stools of also been darker than normal and also denies any abdominal vaginal bleeding or discharge. - Related Data Home Medications Medication Instructions Recorded Confirmed Sertraline HCl [Zoloft] 200 mg PO DAILY 09/24/13 05/14/18 Levothyroxine Sodium [Synthroid] 125 mcg PO QAM 06/05/15 05/14/18 Ranitidine HCl [Zantac] 150 mg PO BID 12/26/15 05/14/18 Divalproex Sodium [Depakote] 2,000 mg PO BID 04/30/16 05/14/18 QUEtiapine [SEROquel] 500 mg PO HS 04/22/17 05/14/18 Lisinopril-Hctz 20-25 mg 2 tab PO DAILY 09/06/17 05/14/18 [Zestoretic 20-25] Gabapentin [Neurontin] 800 mg PO TID 10/11/17 05/14/18 Lurasidone [Latuda] 80 mg PO DAILY 10/11/17 05/14/18 Amitriptyline HCl [Elavil] 25 mg PO DAILY 01/29/18 05/14/18 Butalb/APAP/Caff 50-325-40Mg 1 tab PO BID PRN 01/29/18 05/14/18 [Fioricet 50-325-40] Ferrous Sulfate [Feosol] 325 mg PO DAILY 01/29/18 05/14/18 Phentermine HCl [Adipex-P] 37.5 mg PO DAILY 01/29/18 05/14/18 Propranolol [Inderal] 40 mg PO TID 01/29/18 05/14/18 Simvastatin [Zocor] 20 mg PO HS 01/29/18 05/14/18 Beclomethasone Dipropionate [Qvar 2 puff INHALATION RT-DAILY 02/07/18 05/14/18 80 mcg] Previous Rx's Medication Instructions Recorded Ondansetron Odt [Zofran Odt] 4 mg PO Q8HR PRN #12 tab 02/07/18 Cephalexin [Keflex] 500 mg PO Q12HR 7 Days #14 cap 05/14/18 Allergies Allergy/AdvReac Type Severity Reaction Status Date / Time dicyclomine [From Bentyl] Allergy Severe Hallucinati Verified 05/14/18 17:36 ons granisetron HCl [From Kytril] Allergy Severe Anaphylaxis Verified 05/14/18 17:36 baclofen Allergy Rash/Hives Verified 05/14/18 17:36 butorphanol tartrate Allergy Rash/Hives Verified 05/14/18 17:36 [From Stadol] ketorolac tromethamine Allergy Rash/Hives Verified 05/14/18 17:36 [From Toradol] meperidine HCl [From Demerol] Allergy Swelling Verified 05/14/18 17:36 methocarbamol [From Robaxin] Allergy Unknown Verified 05/14/18 17:36 sulfamethoxazole Allergy Rash/Hives Verified 05/14/18 17:36 [From Bactrim] trimethoprim [From Bactrim] Allergy Rash/Hives Verified 05/14/18 17:36 codeine AdvReac Vomiting & Verified 05/14/18 17:36 Headache methylprednisolone AdvReac Vomiting & Verified 05/14/18 17:36 [From Medrol] Headache Review of Systems ROS Statement: Those systems with pertinent positive or pertinent negative responses have been documented in the HPI. Constitutional: Negative for chills, fatigue and fever. HENT: Negative for congestion. Respiratory: Negative for chest tightness, shortness of breath and wheezing. Negative for cough Cardiovascular: Negative for chest pain and palpitations. Gastrointestinal: Positive for abdominal pain. Negative for abdominal distention , diarrhea, and vomiting. Positive for nausea Genitourinary: Negative for dysuria. Musculoskeletal: Negative for back pain, neck pain and neck stiffness. Skin: Negative for color change. Neurological: Negative for dizziness, speech difficulty, weakness and light- headedness. Psychiatric/Behavioral: Negative for agitation and confusion. Negative for anxiety ROS Other: All systems not noted in ROS Statement are negative. Past Medical History Past Medical History: Asthma, Fibromyalgia, GERD/Reflux, Neurologic Disorder, Seizure Disorder, Thyroid Disorder Additional Past Medical History / Comment(s): crohns disease, diverticulosis, ibs, carpal tunnel, anemia, chronic back pain , migraines, pinched nerves, History of Any Multi-Drug Resistant Organisms: None Reported Past Surgical History: Adenoidectomy, Appendectomy, Cholecystectomy, Orthopedic Surgery, Tonsillectomy Additional Past Surgical History / Comment(s): EGD/colonoscopy, right ankle surgery Past Anesthesia/Blood Transfusion Reactions: No Reported Reaction Additional Past Anesthesia/Blood Transfusion Reaction / Comment(s): hallucinations Past Psychological History: Anxiety, Depression Smoking Status: Current every day smoker Past Alcohol Use History: None Reported Past Drug Use History: None Reported - Past Family History Father Family Medical History: Diabetes Mellitus, Hyperlipidemia Mother Family Medical History: Cancer, CVA/TIA, Deep Vein Thrombosis (DVT), Osteoarthritis (OA), Thyroid Disorder Additional Family Medical History / Comment(s): Extensive tattoos throughout body General Exam - General Exam Comments Initial Comments: Constitutional: Pt appears well-developed and well-nourished. No distress. Head: Normocephalic and atraumatic. Eyes: EOM are normal. Neck: Normal range of motion. Neck supple. Cardiovascular: Tachycardia present, regular rhythm, S1 normal, S2 normal and normal heart sounds. Exam reveals no gallop and no friction rub. No murmur heard. Pulmonary/Chest: Effort normal and breath sounds normal. No tachypnea and no bradypnea. No respiratory distress. No wheezes or rales noted. Abdominal: Soft. Bowel sounds are normal. Pt exhibits no shifting dullness, no distension, no pulsatile liver, no fluid wave, no abdominal bruit and no ascites. There is no rigidity, no rebound, no guarding, no tenderness at McBurney's point and negative Harris's sign. There is no tenderness. Musculoskeletal: Normal range of motion. Neurological: Pt is alert and oriented to person, place, and time. No cranial nerve deficit. Skin: Skin is warm and dry. No rash noted. Pt is not diaphoretic. No erythema. No pallor. Psychiatric: Pt has a normal mood and affect. Pt behavior is normal. Thought content normal. Limitations: no limitations Course Vital Signs 05/14/18 05/14/18 16:18 20:15 Temperature 98.2 F 98.1 F Pulse Rate 117 H 81 Respiratory 18 Rate Blood Pressure 151/83 138/92 O2 Sat by Pulse 99 98 Oximetry Medical Decision Making - Medical Decision Making Laboratory studies showed that there is no significant leukocytosis, R derangements, transaminitis or pancreatitis. Urinalysis was positive for infection and it is suspected the patient's discomfort is secondary to this infection. Systolic because CT of the abdomen showed no significant findings which would be insistent with the patient's pain. Because this, patient was given a prescription for Keflex. Explained all labs and diagnostic test results and that we will discharge the patient home and patient is to follow up with PCP in 1-2 days and return to the ED if symptoms worsen. Pt is agreeable to plan. - Lab Data Result diagrams: 05/14/18 17:00 05/14/18 17:00 Lab Results 05/14/18 05/14/18 05/14/18 Range/Units 17:00 17:00 17:00 WBC 9.7 (3.8-10.6) k/uL RBC 4.41 (3.80-5.40) m/uL Hgb 12.8 (11.4-16.0) gm/dL Hct 39.9 (34.0-46.0) % MCV 90.5 (80.0-100.0) fL MCH 29.0 (25.0-35.0) pg MCHC 32.1 (31.0-37.0) g/dL RDW 16.8 H (11.5-15.5) % Plt Count 429 (150-450) k/uL Neutrophils % 63 % Lymphocytes % 29 % Monocytes % 6 % Eosinophils % 1 % Basophils % 0 % Neutrophils # 6.1 (1.3-7.7) k/uL Lymphocytes # 2.8 (1.0-4.8) k/uL Monocytes # 0.5 (0-1.0) k/uL Eosinophils # 0.1 (0-0.7) k/uL Basophils # 0.0 (0-0.2) k/uL Anisocytosis Slight Sodium 139 (137-145) mmol/L Potassium 4.0 (3.5-5.1) mmol/L Chloride 111 H (98-107) mmol/L Carbon Dioxide 19 L (22-30) mmol/L Anion Gap 9 mmol/L BUN 8 (7-17) mg/dL Creatinine 0.68 (0.52-1.04) mg/dL Est GFR (CKD-EPI)AfAm >90 (>60 ml/min/1.73 sqM) Est GFR (CKD-EPI)NonAf >90 (>60 ml/min/1.73 sqM) Glucose 104 H (74-99) mg/dL Calcium 9.4 (8.4-10.2) mg/dL Magnesium 1.9 (1.6-2.3) mg/dL Total Bilirubin 0.4 (0.2-1.3) mg/dL AST 18 (14-36) U/L ALT 31 (9-52) U/L Alkaline Phosphatase 135 H (38-126) U/L Total Protein 7.4 (6.3-8.2) g/dL Albumin 4.1 (3.5-5.0) g/dL Lipase 53 (23-300) U/L HCG, Quant <2.4 mIU/mL Urine Color Light Yellow Urine Appearance Cloudy H (Clear) Urine pH 6.0 (5.0-8.0) Ur Specific [place] 1.004 (1.001-1.035) Urine Protein Negative (Negative) Urine Glucose (UA) Negative (Negative) Urine Ketones Negative (Negative) Urine Blood Negative (Negative) Urine Nitrite Negative (Negative) Urine Bilirubin Negative (Negative) Urine Urobilinogen <2.0 (<2.0) mg/dL Ur Leukocyte Esterase Moderate H (Negative) Urine WBC 24 H (0-5) /hpf Ur Squamous Epith Cells 17 H (0-4) /hpf Amorphous Sediment Rare H (None) /hpf Urine Bacteria Rare H (None) /hpf Disposition Clinical Impression: Abdominal pain, UTI (urinary tract infection) Disposition: HOME SELF-CARE Condition: Good Instructions (If sedation given, give patient instructions): Abdominal Pain (ED ) Prescriptions: Cephalexin [Keflex] 500 mg PO Q12HR 7 Days #14 cap Is patient prescribed a controlled substance at d/c from ED?: No Referrals: Joan Meeks MD [Primary Care Provider] - 1-2 days Time of Disposition: 19:59
[2018-05-14 17:49] LABS: Anisocytosis Slight; Basophils % (A) 0 %; Eosinophils # (A) 0.1 k/uL (0-0.7); Eosinophils % (A) 1 %; HCT 39.9 % (34.0-46.0); HGB 12.8 gm/dL (11.4-16.0); Lymphocytes # (A) 2.8 k/uL (1.0-4.8); Lymphocytes % (A) 29 %; MCHC 32.1 g/dL (31.0-37.0); MCV 90.5 fL (80.0-100.0); Mean Platelet Volume 6.8; Monocytes # (A) 0.5 k/uL (0-1.0); Monocytes % (A) 6 %; Neutrophils # (A) 6.1 k/uL (1.3-7.7); Neutrophils % (A) 63 %; Platelet Count 429 k/uL (150-450); RBC 4.41 m/uL (3.80-5.40); RDW 16.8 % (11.5-15.5); WBC 9.7 k/uL (3.8-10.6)
[2018-05-14 18:00] LABS: Amorphous Sediment,Urine Rare /hpf; Appearance,Urine Cloudy (Clear); Bacteria,Urine Rare /hpf; Bilirubin,Urine Negative (Negative); Blood,Urine Negative (Negative); Color,Urine Light Yellow; Glucose,Urine (UA) Negative (Negative); Ketones,Urine Negative (Negative); Leukocyte Esterase,Urine Moderate (Negative); Nitrite,Urine Negative (Negative); Protein,Urine Negative (Negative); Specific Gravity,Urine 1.004 (1.001-1.035); Squamous Epithelial Cell,Urine 17 /hpf (0-4); Urobilinogen,Urine <2.0 mg/dL (<2.0); WBC,Urine 24 /hpf (0-5)
[2018-05-14 18:05] LABS: ALT 31 U/L (9-52); AST 18 U/L (14-36); Albumin 4.1 g/dL (3.5-5.0); Alkaline Phosphatase 135 U/L (38-126); Anion Gap 9 mmol/L; Blood Urea Nitrogen 8 mg/dL (7-17); Calcium 9.4 mg/dL (8.4-10.2); Carbon Dioxide 19 mmol/L (22-30); Chloride 111 mmol/L (98-107); Glucose 104 mg/dL (74-99); Lipase 53 U/L (23-300); Magnesium 1.9 mg/dL (1.6-2.3); Sodium 139 mmol/L (137-145); Total Bilirubin 0.4 mg/dL (0.2-1.3); Total Protein 7.4 g/dL (6.3-8.2)
[2018-05-14 18:19] LABS: HCG,Quantitative Serum <2.4 mIU/mL
[2018-05-14] MEDS ORDERED: LORazepam 2 MG/ML INJ IV STA (19:13)
--- NOTE | 2018-05-14 19:33 | CT ---
EXAMINATION TYPE: CT abdomen pelvis w con DATE OF EXAM: 05/14/2018 HISTORY: Abdominal pain and history of Crohn's. CT DLP: 1054.4mGycm Automated Exposure Control for Dose Reduction was Utilized. CONTRAST: CT scan of the abdomen and pelvis is performed with IV Contrast, patient injected with 100ml mL of Is ovue 300. COMPARISON: 10/11/2017 FINDINGS: LUNG BASES: Very minimal bibasilar subsegmental dependent atelectasis is seen. Trace pericardial flui d is noted. LIVER/GB: No significant abnormality is appreciated of the liver. Gallbladder is surgically absent. PANCREAS: No significant abnormality is seen. SPLEEN: No significant abnormality is seen. ADRENALS: There are similar size of the approximately 2.0 cm left adrenal gland mass and low-density nodule of the isthmus that is poorly measured. These appear stable dating back to 03/13/2016. Attenuat ion does not fit criteria for benign adenoma however this is stable dating back to 10/28/2008 and ther efore highly favored to be benign. KIDNEYS: Kidneys enhance and excrete symmetrically without hydronephrosis. BOWEL: There are cluster loops of matted nondilated small bowel in the left upper quadrant. Terminal ileum is nondistended although no surrounding inflammatory fat stranding changes are seen at this chris e. Appendix is not definitively visualized although is thought to be directly adjacent to the termina l ileum and nondilated. Again no right lower quadrant fat stranding changes are seen. No dilated larg e or small bowel. UTERUS/ADNEXA: Small amount of fluid is seen within the dependent pelvis. This is likely physiologic in nature in a premenopausal female.. LYMPH NODES: No greater than 1cm abdominal or pelvic lymph nodes are appreciated. OSSEOUS STRUCTURES: Few scattered nonspecific sclerotic foci are likely attributable to bone islands. IMPRESSION: 1. No current inflammatory fat stranding surrounding the terminal ileum or bowel to suggest active co litis or inflammatory bowel disease. Increase sensitivity for active inflammation and inflammatory sylwia wel disease could be evaluated with CT enterography or MRI enterography. 2. Stable left 2 cm adrenal gland mass dating back to 2008, therefore likely benign although this gordon s not meet criteria for a benign adenoma on this exam.
[2018-05-14] MEDS ORDERED: HYDROcodone/APAP 5-325MG 1 EACH TAB PO STA (19:56)
[2018-05-14 20:17] VITALS: BP 138/92; PULSE 81; TEMP 98.1
== END 2018-05-14 20:31 | disposition home or self-care (01) ==
LOC: EC 16:16
DX: N39.0 Urinary tract infection, site not specified (principal); R11.0 Nausea; R00.0 Tachycardia, unspecified; J45.909 Unspecified asthma, uncomplicated; K21.9 Gastro-esophageal reflux disease without esophagitis; M79.7 Fibromyalgia; G40.909 Epilepsy, unspecified, not intractable, without status epilepticus; E07.9 Disorder of thyroid, unspecified; D64.9 Anemia, unspecified; F32.9 Major depressive disorder, single episode, unspecified; F41.9 Anxiety disorder, unspecified; F17.200 Nicotine dependence, unspecified, uncomplicated; Z88.2 Allergy status to sulfonamides; Z88.5 Allergy status to narcotic agent; Z88.6 Allergy status to analgesic agent; Z88.8 Allergy status to other drugs, medicaments and biological substances; Z79.51 Long term (current) use of inhaled steroids; Z79.890 Hormone replacement therapy; Z79.899 Other long term (current) drug therapy; Z87.19 Personal history of other diseases of the digestive system; Z86.69 Personal history of other diseases of the nervous system and sense organs; Z90.49 Acquired absence of other specified parts of digestive tract
CPT/HCPCS: 36415; 80053; 83690; 83735; 85025; 81001; 84702; 74177; 99284; 96374; 96375 ×2; 96361 ×3; J2060; J2405; J1170; Q9967

== ENCOUNTER 2018-08-07 20:24 | Emergency (ER) | payer OTHER ==
[2018-08-07 20:51] LABS: Appearance,Urine Clear (Clear); Bilirubin,Urine Negative (Negative); Blood,Urine Negative (Negative); Color,Urine Light Yellow; Glucose,Urine (UA) Negative (Negative); Ketones,Urine Negative (Negative); Leukocyte Esterase,Urine Negative (Negative); Nitrite,Urine Negative (Negative); Protein,Urine Negative (Negative); Specific Gravity,Urine 1.012 (1.001-1.035); Urobilinogen,Urine <2.0 mg/dL (<2.0)
[2018-08-07 21:00] LABS: Amphetamine Screen,Urine Not Detected (NotDetected); Barbiturate Screen,Urine Detected (NotDetected); Benzodiazepines Screen,Urine Detected (NotDetected); Cocaine Screen,Urine Not Detected (NotDetected); Methadone Screen, Urine Not Detected (NotDetected); Opiate Screen,Urine Not Detected (NotDetected); Oxycodone Screen, Urine Not Detected (NotDetected); Phencyclidine Screen,Urine Not Detected (NotDetected); Tricyclic Antidepressant,Urine Detected (NotDetected); Urn Cannabinoid Scrn Not Detected (NotDetected)
[2018-08-07] MEDS ORDERED: SODIUM CHLORIDE 0.9% 1,000 ML IV STA (21:13)
[2018-08-07] MEDS ORDERED: LORazepam 2 MG/ML INJ IV STA (21:14)
--- NOTE | 2018-08-07 21:16 | ED ---
Anxiety HPI - General Chief Complaint: Anxiety Stated Complaint: Anxiety Time Seen by Provider: 08/07/18 20:35 Source: patient, EMS Mode of arrival: EMS - History of Present Illness Initial Comments: Patient is a 33-year-old female presenting for anxiety and a, pain. The patient states that she has been having worsening anxiety for the last 3 days. She also states that she has a history of colitis and that earlier today, she started having right upper quadrant pain which is been constant and sharp. There is no radiation. She denies any chest pain or shortness of breath and her no modifying factors. - Related Data Home Medications: Home Medications Medication Instructions Recorded Confirmed Sertraline HCl [Zoloft] 200 mg PO DAILY 09/24/13 08/07/18 Ranitidine HCl [Zantac] 150 mg PO BID 12/26/15 08/07/18 Divalproex Sodium [Depakote] 2,000 mg PO BID 04/30/16 08/07/18 QUEtiapine [SEROquel] 500 mg PO HS 04/22/17 08/07/18 Lisinopril-Hctz 20-25 mg 2 tab PO DAILY 09/06/17 08/07/18 [Zestoretic 20-25] Gabapentin [Neurontin] 800 mg PO TID 10/11/17 08/07/18 Lurasidone [Latuda] 80 mg PO DAILY 10/11/17 08/07/18 Butalb/APAP/Caff 50-325-40Mg 1 tab PO BID PRN 01/29/18 08/07/18 [Fioricet 50-325-40] Ferrous Sulfate [Feosol] 325 mg PO DAILY 01/29/18 08/07/18 Phentermine HCl [Adipex-P] 37.5 mg PO DAILY 01/29/18 08/07/18 Propranolol [Inderal] 40 mg PO TID 01/29/18 08/07/18 Simvastatin [Zocor] 20 mg PO HS 01/29/18 08/07/18 Beclomethasone Dipropionate [Qvar 2 puff INHALATION RT-DAILY 02/07/18 08/07/18 80 mcg] ALPRAZolam [Xanax] 2 mg PO BID 08/07/18 08/07/18 Amitriptyline HCl [Elavil] 50 mg PO DAILY 08/07/18 08/07/18 [place] 540 mg PO HS PRN 08/07/18 08/07/18 Levothyroxine Sodium [Synthroid] 137 mcg PO DAILY 08/07/18 08/07/18 Loratadine [Claritin] 10 mg PO DAILY 08/07/18 08/07/18 Montelukast [Singulair] 10 mg PO DAILY 08/07/18 08/07/18 Promethazine [Phenergan] 50 mg PO DAILY PRN 08/07/18 08/07/18 QUEtiapine [SEROquel] 100 mg PO BID 08/07/18 08/07/18 oxyCODONE-APAP 10-325MG [Percocet 1 tab PO QID 08/07/18 08/07/18 10-325 mg] Previous Rx's Medication Instructions Recorded ALPRAZolam [Xanax] 2 mg PO BID 3 Days #5 tab 08/07/18 Allergies/Adverse Reactions: Allergies Allergy/AdvReac Type Severity Reaction Status Date / Time dicyclomine [From Bentyl] Allergy Severe Hallucinati Verified 08/07/18 21:02 ons granisetron HCl [From Kytril] Allergy Severe Anaphylaxis Verified 08/07/18 21:02 baclofen Allergy Rash/Hives Verified 08/07/18 21:02 butorphanol tartrate Allergy Rash/Hives Verified 08/07/18 21:02 [From Stadol] ketorolac tromethamine Allergy Rash/Hives Verified 08/07/18 21:02 [From Toradol] meperidine HCl [From Demerol] Allergy Swelling Verified 08/07/18 21:02 methocarbamol [From Robaxin] Allergy Unknown Verified 08/07/18 21:02 pregabalin [From Lyrica] Allergy Unknown Verified 08/07/18 21:02 sulfamethoxazole Allergy Rash/Hives Verified 08/07/18 21:02 [From Bactrim] trimethoprim [From Bactrim] Allergy Rash/Hives Verified 08/07/18 21:02 codeine AdvReac Vomiting & Verified 08/07/18 21:02 Headache methylprednisolone AdvReac Vomiting & Verified 08/07/18 21:02 [From Medrol] Headache Review of Systems ROS Statement: Those systems with pertinent positive or pertinent negative responses have been documented in the HPI. Constitutional: Negative for chills, fatigue and fever. HENT: Negative for congestion. Respiratory: Negative for chest tightness, shortness of breath and wheezing. Ne gative for cough Cardiovascular: Negative for chest pain and palpitations. Gastrointestinal: Positive for abdominal pain. Negative for abdominal dis tention, diarrhea, nausea and vomiting. Genitourinary: Negative for dysuria. Musculoskeletal: Negative for back pain, neck pain and neck stiffness. Skin: Negative for color change. Neurological: Negative for dizziness, speech difficulty, weakness and light- headedness. Psychiatric/Behavioral: Negative for agitation and confusion. Positive for anxiety ROS Other: All systems not noted in ROS Statement are negative. Past Medical History Past Medical History: Asthma, Fibromyalgia, GERD/Reflux, Neurologic Disorder, Seizure Disorder, Thyroid Disorder Additional Past Medical History / Comment(s): crohns disease, diverticulosis, ibs, carpal tunnel, anemia, chronic back pain , migraines, pinched nerves, History of Any Multi-Drug Resistant Organisms: None Reported Past Surgical History: Adenoidectomy, Appendectomy, Cholecystectomy, Orthopedic Surgery, Tonsillectomy Additional Past Surgical History / Comment(s): EGD/colonoscopy, right ankle surgery Past Anesthesia/Blood Transfusion Reactions: No Reported Reaction Additional Past Anesthesia/Blood Transfusion Reaction / Comment(s): hallucinations Past Psychological History: Anxiety, Depression Smoking Status: Current every day smoker Past Alcohol Use History: None Reported Past Drug Use History: None Reported - Past Family History Father Family Medical History: Diabetes Mellitus, Hyperlipidemia Mother Family Medical History: Cancer, CVA/TIA, Deep Vein Thrombosis (DVT), Osteoarthritis (OA), Thyroid Disorder Additional Family Medical History / Comment(s): Extensive tattoos throughout body General Exam - General Exam Comments Initial Comments: Constitutional: Pt appears well-developed and well-nourished. No distress. Head: Normocephalic and atraumatic. Eyes: EOM are normal. Neck: Normal range of motion. Neck supple. Cardiovascular: Normal rate, regular rhythm, S1 normal, S2 normal and normal heart sounds. Exam reveals no gallop and no friction rub. No murmur heard. Pulmonary/Chest: Effort normal and breath sounds normal. No tachypnea and no bradypnea. No respiratory distress. No wheezes or rales noted. Abdominal: Soft. Bowel sounds are normal. Pt exhibits no shifting dullness, no distension, no pulsatile liver, no fluid wave, no abdominal bruit and no ascites. There is no rigidity, no rebound, no guarding, no tenderness at McBurney's point and negative Harris's sign. There is mild tenderness to the right upper and right lower quadrant. Musculoskeletal: Normal range of motion. Neurological: Pt is alert and oriented to person, place, and time. No cranial nerve deficit. Skin: Skin is warm and dry. No rash noted. Pt is not diaphoretic. No erythema. No pallor. Psychiatric: Pt has a normal mood and affect. Pt is extremely anxious and tearful. Thought content normal. Limitations: no limitations Course Vital Signs 08/07/18 08/07/18 08/07/18 20:32 21:39 22:30 Temperature 98.1 F Pulse Rate 99 88 90 Respiratory 26 H 20 20 Rate Blood Pressure 145/94 116/79 135/89 O2 Sat by Pulse 97 96 97 Oximetry Medical Decision Making - Medical Decision Making Auditory studies showed that there is no significant leukocytosis, electrolyte derangements and patient was given Ativan which helped anxiety. Because the patient had no suicidal homicidal ideation, was thought from a psychiatric standpoint, the patient could be discharged. In regards to the abdominal pain, there is no evidence of transaminitis or pancreatitis and CT of the abdomen was completely unremarkable. However, there was significant stillborn and patient was advised to take laxatives at home. She was offered a prescription but currently declined. Explained all labs and diagnostic test results and that we will discharge the patient home and patient is to follow up with PCP in 1-2 days and return to the ED if symptoms worsen. Pt is agreeable to plan. - Lab Data Result diagrams: 08/07/18 21:30 08/07/18 21:30 Lab Results 08/07/18 08/07/18 08/07/18 Range/Units 20:30 20:30 21:30 WBC 10.6 (3.8-10.6) k/uL RBC 3.83 (3.80-5.40) m/uL Hgb 11.5 (11.4-16.0) gm/dL Hct 35.9 (34.0-46.0) % MCV 93.9 (80.0-100.0) fL MCH 30.0 (25.0-35.0) pg MCHC 31.9 (31.0-37.0) g/dL RDW 17.3 H (11.5-15.5) % Plt Count 610 H (150-450) k/uL Neutrophils % 49 % Lymphocytes % 40 % Monocytes % 5 % Eosinophils % 2 % Basophils % 1 % Neutrophils # 5.2 (1.3-7.7) k/uL Lymphocytes # 4.2 (1.0-4.8) k/uL Monocytes # 0.5 (0-1.0) k/uL Eosinophils # 0.3 (0-0.7) k/uL Basophils # 0.1 (0-0.2) k/uL Hypochromasia Slight Anisocytosis Slight Sodium (137-145) mmol/L Potassium (3.5-5.1) mmol/L Chloride (98-107) mmol/L Carbon Dioxide (22-30) mmol/L Anion Gap mmol/L BUN (7-17) mg/dL Creatinine (0.52-1.04) mg/dL Est GFR (CKD-EPI)AfAm (>60 ml/min/1.73 sqM) Est GFR (CKD-EPI)NonAf (>60 ml/min/1.73 sqM) Glucose (74-99) mg/dL Calcium (8.4-10.2) mg/dL Total Bilirubin (0.2-1.3) mg/dL AST (14-36) U/L ALT (9-52) U/L Alkaline Phosphatase (38-126) U/L Total Protein (6.3-8.2) g/dL Albumin (3.5-5.0) g/dL Lipase (23-300) U/L Urine Color Light Yellow Urine Appearance Clear (Clear) Urine pH 6.0 (5.0-8.0) Ur Specific [place] 1.012 (1.001-1.035) Urine Protein Negative (Negative) Urine Glucose (UA) Negative (Negative) Urine Ketones Negative (Negative) Urine Blood Negative (Negative) Urine Nitrite Negative (Negative) Urine Bilirubin Negative (Negative) Urine Urobilinogen <2.0 (<2.0) mg/dL Ur Leukocyte Esterase Negative (Negative) Urine HCG, Qual Not Detected (Not Detectd) Urine Opiates Screen Not Detected (NotDetected) Ur Oxycodone Screen Not Detected (NotDetected) Urine Methadone Screen Not Detected (NotDetected) Ur Propoxyphene Screen Not Detected (NotDetected) Ur Barbiturates Screen Detected H (NotDetected) U Tricyclic Antidepress Detected H (NotDetected) Ur Phencyclidine Scrn Not Detected (NotDetected) Ur Amphetamines Screen Not Detected (NotDetected) U Methamphetamines Scrn Not Detected (NotDetected) U Benzodiazepines Scrn Detected H (NotDetected) Urine Cocaine Screen Not Detected (NotDetected) U Marijuana (THC) Screen Not Detected (NotDetected) 08/07/18 Range/Units 21:30 WBC (3.8-10.6) k/uL RBC (3.80-5.40) m/uL Hgb (11.4-16.0) gm/dL Hct (34.0-46.0) % MCV (80.0-100.0) fL MCH (25.0-35.0) pg MCHC (31.0-37.0) g/dL RDW (11.5-15.5) % Plt Count (150-450) k/uL Neutrophils % % Lymphocytes % % Monocytes % % Eosinophils % % Basophils % % Neutrophils # (1.3-7.7) k/uL Lymphocytes # (1.0-4.8) k/uL Monocytes # (0-1.0) k/uL Eosinophils # (0-0.7) k/uL Basophils # (0-0.2) k/uL Hypochromasia Anisocytosis Sodium 139 (137-145) mmol/L Potassium 4.1 (3.5-5.1) mmol/L Chloride 113 H (98-107) mmol/L Carbon Dioxide 18 L (22-30) mmol/L Anion Gap 8 mmol/L BUN 7 (7-17) mg/dL Creatinine 0.82 (0.52-1.04) mg/dL Est GFR (CKD-EPI)AfAm >90 (>60 ml/min/1.73 sqM) Est GFR (CKD-EPI)NonAf >90 (>60 ml/min/1.73 sqM) Glucose 96 (74-99) mg/dL Calcium 9.1 (8.4-10.2) mg/dL Total Bilirubin 0.4 (0.2-1.3) mg/dL AST 14 (14-36) U/L ALT 23 (9-52) U/L Alkaline Phosphatase 147 H (38-126) U/L Total Protein 6.5 (6.3-8.2) g/dL Albumin 3.6 (3.5-5.0) g/dL Lipase 235 (23-300) U/L Urine Color Urine Appearance (Clear) Urine pH (5.0-8.0) Ur Specific [place] (1.001-1.035) Urine Protein (Negative) Urine Glucose (UA) (Negative) Urine Ketones (Negative) Urine Blood (Negative) Urine Nitrite (Negative) Urine Bilirubin (Negative) Urine Urobilinogen (<2.0) mg/dL Ur Leukocyte Esterase (Negative) Urine HCG, Qual (Not Detectd) Urine Opiates Screen (NotDetected) Ur Oxycodone Screen (NotDetected) Urine Methadone Screen (NotDetected) Ur Propoxyphene Screen (NotDetected) Ur Barbiturates Screen (NotDetected) U Tricyclic Antidepress (NotDetected) Ur Phencyclidine Scrn (NotDetected) Ur Amphetamines Screen (NotDetected) U Methamphetamines Scrn (NotDetected) U Benzodiazepines Scrn (NotDetected) Urine Cocaine Screen (NotDetected) U Marijuana (THC) Screen (NotDetected) Disposition Clinical Impression: Abdominal pain, Anxiety Disposition: HOME SELF-CARE Condition: Good Instructions (If sedation given, give patient instructions): Generalized Anxiety Disorder (ED), Abdominal Pain (ED) Prescriptions: ALPRAZolam [Xanax] 2 mg PO BID 3 Days #5 tab Is patient prescribed a controlled substance at d/c from ED?: No Referrals: Joan Meeks MD [Primary Care Provider] - 1-2 days Time of Disposition: 23:21
[2018-08-07 21:49] LABS: Anisocytosis Slight; Basophils # (A) 0.1 k/uL (0-0.2); Basophils % (A) 1 %; Eosinophils # (A) 0.3 k/uL (0-0.7); Eosinophils % (A) 2 %; HCT 35.9 % (34.0-46.0); HGB 11.5 gm/dL (11.4-16.0); Hypochromasia Slight; Lymphocytes # (A) 4.2 k/uL (1.0-4.8); Lymphocytes % (A) 40 %; MCHC 31.9 g/dL (31.0-37.0); MCV 93.9 fL (80.0-100.0); Monocytes # (A) 0.5 k/uL (0-1.0); Monocytes % (A) 5 %; Neutrophils # (A) 5.2 k/uL (1.3-7.7); Neutrophils % (A) 49 %; Platelet Count 610 k/uL (150-450); RBC 3.83 m/uL (3.80-5.40); RDW 17.3 % (11.5-15.5); WBC 10.6 k/uL (3.8-10.6)
[2018-08-07 22:05] LABS: ALT 23 U/L (9-52); AST 14 U/L (14-36); Albumin 3.6 g/dL (3.5-5.0); Alkaline Phosphatase 147 U/L (38-126); Anion Gap 8 mmol/L; Blood Urea Nitrogen 7 mg/dL (7-17); Calcium 9.1 mg/dL (8.4-10.2); Carbon Dioxide 18 mmol/L (22-30); Chloride 113 mmol/L (98-107); Glucose 96 mg/dL (74-99); Lipase 235 U/L (23-300); Potassium 4.1 mmol/L (3.5-5.1); Sodium 139 mmol/L (137-145); Total Bilirubin 0.4 mg/dL (0.2-1.3); Total Protein 6.5 g/dL (6.3-8.2)
--- NOTE | 2018-08-07 23:08 | CT ---
EXAM: CT Abdomen and Pelvis With Intravenous Contrast CLINICAL HISTORY: abdominal pain TECHNIQUE: Axial computed tomography images of the abdomen and pelvis with intravenous contrast. CTDI is 0.085, 0.085, 10.8, 11.4 mGy and DLP is 1088 mGy-cm. This CT exam was performed using one or more of the following dose reduction techniques: automated exposure control, adjustment of the mA and/or kV according to patient size, and/or use of iterative reconstruction technique. COMPARISON: 05/14/2018 FINDINGS: Lung bases: Unremarkable. No mass. No consolidation. ABDOMEN: Liver: Unremarkable. Gallbladder and bile ducts: Gallbladder surgically absent. Pancreas: Unremarkable. Spleen: Unremarkable. Adrenals: Stable indeterminate 2.3 cm left adrenal nodule. Kidneys and ureters: Unremarkable. No solid mass. No hydronephrosis. Stomach and bowel: Unremarkable. Bowel is nondilated. PELVIS: Appendix: Appendix is not identified. Bladder: Unremarkable. Reproductive: Unremarkable as visualized. ABDOMEN and PELVIS: Intraperitoneal space: Unremarkable. No free air. Bones/joints: No acute osseous abnormality. Soft tissues: Unremarkable. Vasculature: Unremarkable. No abdominal aortic aneurysm. Lymph nodes: Unremarkable. IMPRESSION: No acute findings.
[2018-08-07 23:34] VITALS: BP 132/90; PULSE 91; RESP 17; TEMP 97.9
== END 2018-08-07 23:33 | disposition home or self-care (01) ==
LOC: EC 20:24
DX: F41.9 Anxiety disorder, unspecified (principal); R10.11 Right upper quadrant pain; J45.909 Unspecified asthma, uncomplicated; M79.7 Fibromyalgia; K21.9 Gastro-esophageal reflux disease without esophagitis; G40.909 Epilepsy, unspecified, not intractable, without status epilepticus; E07.9 Disorder of thyroid, unspecified; G43.909 Migraine, unspecified, not intractable, without status migrainosus; D64.9 Anemia, unspecified; F32.9 Major depressive disorder, single episode, unspecified; F17.200 Nicotine dependence, unspecified, uncomplicated; Z87.19 Personal history of other diseases of the digestive system; Z90.49 Acquired absence of other specified parts of digestive tract; Z79.51 Long term (current) use of inhaled steroids; Z79.890 Hormone replacement therapy; Z79.891 Long term (current) use of opiate analgesic; Z79.899 Other long term (current) drug therapy; Z88.8 Allergy status to other drugs, medicaments and biological substances; Z88.6 Allergy status to analgesic agent; Z88.5 Allergy status to narcotic agent; Z88.2 Allergy status to sulfonamides; Z53.29 Procedure and treatment not carried out because of patient's decision for other reasons
CPT/HCPCS: 36415; 80053; 83690; 85025; 81003; 81025; 80306; 74177; 99284; 96374; 96361; J2060; Q9967

== ENCOUNTER 2018-08-19 12:49 | Inpatient (IN) | payer OTHER ==
[2018-08-19] MEDS ORDERED: SODIUM CHLORIDE 0.9% 1,000 ML IV STA (13:00)
--- NOTE | 2018-08-19 13:01 | ED ---
Overdose HPI - General Chief Complaint: Overdose Stated Complaint: Overdose Time Seen by Provider: 08/19/18 12:59 Source: patient, EMS, RN notes reviewed, old records reviewed Mode of arrival: EMS Limitations: altered mental status - History of Present Illness Initial Comments: This is a 33-year-old female the ER for evaluation of overdose, unsure regarding circumstances patient did take a significant low back tenderness. Patient also has history of multiple different medications. Patient's brought in by EMS for unresponsiveness. No response to Narcan. Normal blood sugar per EMS history obtained from family at bedside and states patient is suffering with anxiety and depression MD Complaint: intentional overdose, accidental overdose -: days(s) Intent: unwilling to say How Overdose Was Discovered: family/friend present at time Context: Accidental Overdose: uncertain what happened Associated Symptoms: depression Treatments Prior to Arrival: none - Related Data Home Medications Medication Instructions Recorded Confirmed Sertraline HCl [Zoloft] 200 mg PO DAILY 09/24/13 08/19/18 Ranitidine HCl [Zantac] 150 mg PO BID 12/26/15 08/19/18 Divalproex Sodium [Depakote] 2,000 mg PO BID 04/30/16 08/19/18 QUEtiapine [SEROquel] 500 mg PO HS 04/22/17 08/19/18 Lisinopril-Hctz 20-25 mg 2 tab PO DAILY 09/06/17 08/19/18 [Zestoretic 20-25] Gabapentin [Neurontin] 800 mg PO TID 10/11/17 08/19/18 Lurasidone [Latuda] 80 mg PO DAILY 10/11/17 08/19/18 Butalb/APAP/Caff 50-325-40Mg 1 tab PO BID PRN 01/29/18 08/19/18 [Fioricet 50-325-40] Ferrous Sulfate [Feosol] 325 mg PO DAILY 01/29/18 08/19/18 Phentermine HCl [Adipex-P] 37.5 mg PO DAILY 01/29/18 08/19/18 Propranolol [Inderal] 40 mg PO TID 01/29/18 08/19/18 Simvastatin [Zocor] 20 mg PO HS 01/29/18 08/19/18 Beclomethasone Dipropionate [Qvar 2 puff INHALATION RT-DAILY 02/07/18 08/19/18 80 mcg] ALPRAZolam [Xanax] 2 mg PO BID 08/07/18 08/19/18 Amitriptyline HCl [Elavil] 50 mg PO DAILY 08/07/18 08/19/18 Black Cohosh 540 mg PO HS PRN 08/07/18 08/19/18 Levothyroxine Sodium [Synthroid] 137 mcg PO DAILY 08/07/18 08/19/18 Loratadine [Claritin] 10 mg PO DAILY 08/07/18 08/19/18 Montelukast [Singulair] 10 mg PO DAILY 08/07/18 08/19/18 Promethazine [Phenergan] 50 mg PO DAILY PRN 08/07/18 08/19/18 QUEtiapine [SEROquel] 100 mg PO BID 08/07/18 08/19/18 oxyCODONE-APAP 10-325MG [Percocet 1 tab PO QID 08/07/18 08/19/18 10-325 mg] Previous Rx's Medication Instructions Recorded ALPRAZolam [Xanax] 2 mg PO BID 3 Days #5 tab 08/07/18 Allergies Allergy/AdvReac Type Severity Reaction Status Date / Time dicyclomine [From Bentyl] Allergy Severe Hallucinati Verified 08/19/18 12:57 ons granisetron HCl [From Kytril] Allergy Severe Anaphylaxis Verified 08/19/18 12:57 baclofen Allergy Rash/Hives Verified 08/19/18 12:57 butorphanol tartrate Allergy Rash/Hives Verified 08/19/18 12:57 [From Stadol] ketorolac tromethamine Allergy Rash/Hives Verified 08/19/18 12:57 [From Toradol] meperidine HCl [From Demerol] Allergy Swelling Verified 08/19/18 12:57 methocarbamol [From Robaxin] Allergy Unknown Verified 08/19/18 12:57 pregabalin [From Lyrica] Allergy Unknown Verified 08/19/18 12:57 sulfamethoxazole Allergy Rash/Hives Verified 08/19/18 12:57 [From Bactrim] trimethoprim [From Bactrim] Allergy Rash/Hives Verified 08/19/18 12:57 codeine AdvReac Vomiting & Verified 08/19/18 12:57 Headache methylprednisolone AdvReac Vomiting & Verified 08/19/18 12:57 [From Medrol] Headache Review of Systems ROS Statement: Those systems with pertinent positive or pertinent negative responses have been documented in the HPI. ROS Other: All systems not noted in ROS Statement are negative. Past Medical History Past Medical History: Asthma, Fibromyalgia, GERD/Reflux, Neurologic Disorder, Seizure Disorder, Thyroid Disorder Additional Past Medical History / Comment(s): crohns disease, diverticulosis, ibs, carpal tunnel, anemia, chronic back pain , migraines, pinched nerves, History of Any Multi-Drug Resistant Organisms: None Reported Past Surgical History: Adenoidectomy, Appendectomy, Cholecystectomy, Orthopedic Surgery, Tonsillectomy Additional Past Surgical History / Comment(s): EGD/colonoscopy, right ankle surgery Past Anesthesia/Blood Transfusion Reactions: No Reported Reaction Additional Past Anesthesia/Blood Transfusion Reaction / Comment(s): halluc inations Past Psychological History: Anxiety, Depression Smoking Status: Current every day smoker Past Alcohol Use History: None Reported Past Drug Use History: None Reported - Past Family History Father Family Medical History: Diabetes Mellitus, Hyperlipidemia Mother Family Medical History: Cancer, CVA/TIA, Deep Vein Thrombosis (DVT), Osteoarthritis (OA), Thyroid Disorder Additional Family Medical History / Comment(s): Extensive tattoos throughout body General Exam Limitations: altered mental status General appearance: alert, lethargic, obtunded (Arousable) Head exam: Present: atraumatic, normocephalic, normal inspection Eye exam: Present: normal appearance, PERRL, EOMI. Absent: scleral icterus, conjunctival injection, periorbital swelling ENT exam: Present: normal exam, mucous membranes moist Neck exam: Present: normal inspection. Absent: tenderness, meningismus, lymphadenopathy Respiratory exam: Present: normal lung sounds bilaterally. Absent: respiratory distress, wheezes, rales, rhonchi, stridor Cardiovascular Exam: Present: regular rate, normal rhythm, normal heart sounds. Absent: systolic murmur, diastolic murmur, rubs, gallop, clicks GI/Abdominal exam: Present: soft, normal bowel sounds. Absent: distended, tenderness, guarding, rebound, rigid Extremities exam: Present: normal inspection, full ROM, normal capillary refill. Absent: tenderness, pedal edema, joint swelling, calf tenderness Back exam: Present: normal inspection Neurological exam: Present: alert, oriented X3, CN II-XII intact Psychiatric exam: Present: normal affect, normal mood Skin exam: Present: warm, dry, intact, normal color. Absent: rash Course Vital Signs 08/19/18 08/19/18 12:52 13:48 Temperature 98.0 F Pulse Rate 101 H 77 Respiratory 16 14 Rate Blood Pressure 122/109 112/79 O2 Sat by Pulse 96 98 Oximetry - Reevaluation(s) Reevaluation #1: 08/19/18 15:30 Medical record reviewed Reevaluation #2: 08/19/18 15:30 Patient without increase in responsiveness currently Medical Decision Making - Medical Decision Making 33 female the ER for evaluation. Patient to be admitted for drug overdose polysubstance overdose, continue to monitor, will have psychiatric evaluation regarding possible suicide attempt - Lab Data Result diagrams: 08/19/18 13:10 08/19/18 13:10 Lab Results 08/19/18 08/19/18 08/19/18 Range/Units 13:10 13:10 13:10 WBC 14.4 H (3.8-10.6) k/uL RBC 3.90 (3.80-5.40) m/uL Hgb 11.7 (11.4-16.0) gm/dL Hct 36.3 (34.0-46.0) % MCV 93.0 (80.0-100.0) fL MCH 29.9 (25.0-35.0) pg MCHC 32.2 (31.0-37.0) g/dL RDW 18.0 H (11.5-15.5) % Plt Count 423 (150-450) k/uL Neutrophils % 58 % Lymphocytes % 30 % Monocytes % 7 % Eosinophils % 3 % Basophils % 0 % Neutrophils # 8.3 H (1.3-7.7) k/uL Lymphocytes # 4.3 (1.0-4.8) k/uL Monocytes # 1.0 (0-1.0) k/uL Eosinophils # 0.4 (0-0.7) k/uL Basophils # 0.0 (0-0.2) k/uL Anisocytosis Slight PT (9.0-12.0) sec INR (<1.2) Sodium 130 L (137-145) mmol/L Potassium 3.6 (3.5-5.1) mmol/L Chloride 99 (98-107) mmol/L Carbon Dioxide 21 L (22-30) mmol/L Anion Gap 10 mmol/L BUN 8 (7-17) mg/dL Creatinine 0.69 (0.52-1.04) mg/dL Est GFR (CKD-EPI)AfAm >90 (>60 ml/min/1.73 sqM) Est GFR (CKD-EPI)NonAf >90 (>60 ml/min/1.73 sqM) Glucose 88 (74-99) mg/dL Calcium 9.3 (8.4-10.2) mg/dL Total Bilirubin 0.4 (0.2-1.3) mg/dL AST 18 (14-36) U/L ALT 13 (9-52) U/L Alkaline Phosphatase 123 (38-126) U/L Creatine Kinase 88 (30-135) U/L Troponin I (0.000-0.034) ng/mL Total Protein 7.0 (6.3-8.2) g/dL Albumin 3.9 (3.5-5.0) g/dL Lipase 60 (23-300) U/L Urine Color Light Yellow Urine Appearance Clear (Clear) Urine pH 6.0 (5.0-8.0) Ur Specific [place] 1.011 (1.001-1.035) Urine Protein Negative (Negative) Urine Glucose (UA) Negative (Negative) Urine Ketones Negative (Negative) Urine Blood Negative (Negative) Urine Nitrite Negative (Negative) Urine Bilirubin Negative (Negative) Urine Urobilinogen <2.0 (<2.0) mg/dL Ur Leukocyte Esterase Negative (Negative) Urine HCG, Qual (Not Detectd) Salicylates 1.3 mg/dL Urine Opiates Screen Detected H (NotDetected) Ur Oxycodone Screen Detected H (NotDetected) Urine Methadone Screen Not Detected (NotDetected) Ur Propoxyphene Screen Not Detected (NotDetected) Acetaminophen 22.6 ug/mL Ur Barbiturates Screen Detected H (NotDetected) U Tricyclic Antidepress Detected H (NotDetected) Ur Phencyclidine Scrn Not Detected (NotDetected) Ur Amphetamines Screen Not Detected (NotDetected) U Methamphetamines Scrn Not Detected (NotDetected) U Benzodiazepines Scrn Detected H (NotDetected) Urine Cocaine Screen Not Detected (NotDetected) U Marijuana (THC) Screen Not Detected (NotDetected) Serum Alcohol <10 mg/dL 08/19/18 08/19/18 08/19/18 Range/Units 13:10 13:10 13:10 WBC (3.8-10.6) k/uL RBC (3.80-5.40) m/uL Hgb (11.4-16.0) gm/dL Hct (34.0-46.0) % MCV (80.0-100.0) fL MCH (25.0-35.0) pg MCHC (31.0-37.0) g/dL RDW (11.5-15.5) % Plt Count (150-450) k/uL Neutrophils % % Lymphocytes % % Monocytes % % Eosinophils % % Basophils % % Neutrophils # (1.3-7.7) k/uL Lymphocytes # (1.0-4.8) k/uL Monocytes # (0-1.0) k/uL Eosinophils # (0-0.7) k/uL Basophils # (0-0.2) k/uL Anisocytosis PT 11.2 (9.0-12.0) sec INR 1.1 (<1.2) Sodium (137-145) mmol/L Potassium (3.5-5.1) mmol/L Chloride (98-107) mmol/L Carbon Dioxide (22-30) mmol/L Anion Gap mmol/L BUN (7-17) mg/dL Creatinine (0.52-1.04) mg/dL Est GFR (CKD-EPI)AfAm (>60 ml/min/1.73 sqM) Est GFR (CKD-EPI)NonAf (>60 ml/min/1.73 sqM) Glucose (74-99) mg/dL Calcium (8.4-10.2) mg/dL Total Bilirubin (0.2-1.3) mg/dL AST (14-36) U/L ALT (9-52) U/L Alkaline Phosphatase (38-126) U/L Creatine Kinase (30-135) U/L Troponin I <0.012 (0.000-0.034) ng/mL Total Protein (6.3-8.2) g/dL Albumin (3.5-5.0) g/dL Lipase (23-300) U/L Urine Color Urine Appearance (Clear) Urine pH (5.0-8.0) Ur Specific [place] (1.001-1.035) Urine Protein (Negative) Urine Glucose (UA) (Negative) Urine Ketones (Negative) Urine Blood (Negative) Urine Nitrite (Negative) Urine Bilirubin (Negative) Urine Urobilinogen (<2.0) mg/dL Ur Leukocyte Esterase (Negative) Urine HCG, Qual Not Detected (Not Detectd) Salicylates mg/dL Urine Opiates Screen (NotDetected) Ur Oxycodone Screen (NotDetected) Urine Methadone Screen (NotDetected) Ur Propoxyphene Screen (NotDetected) Acetaminophen ug/mL Ur Barbiturates Screen (NotDetected) U Tricyclic Antidepress (NotDetected) Ur Phencyclidine Scrn (NotDetected) Ur Amphetamines Screen (NotDetected) U Methamphetamines Scrn (NotDetected) U Benzodiazepines Scrn (NotDetected) Urine Cocaine Screen (NotDetected) U Marijuana (THC) Screen (NotDetected) Serum Alcohol mg/dL - EKG Data -: EKG Interpreted by Me (EKG shows sinus rhythm rate of 81, FL 154, QRS 80, QTC 520 this) Disposition Clinical Impression: Anxiety, Drug overdose, Altered mental status Disposition: ADMITTED IP TO THIS [facility] Condition: Fair Is patient prescribed a controlled substance at d/c from ED?: No Referrals: Joan Meeks MD [Primary Care Provider] - 1-2 days
[2018-08-19 13:34] LABS: Anisocytosis Slight; Basophils % (A) 0 %; Eosinophils # (A) 0.4 k/uL (0-0.7); Eosinophils % (A) 3 %; HCT 36.3 % (34.0-46.0); HGB 11.7 gm/dL (11.4-16.0); Lymphocytes # (A) 4.3 k/uL (1.0-4.8); Lymphocytes % (A) 30 %; MCH 29.9 pg (25.0-35.0); MCHC 32.2 g/dL (31.0-37.0); Mean Platelet Volume 7.1; Monocytes % (A) 7 %; Neutrophils # (A) 8.3 k/uL (1.3-7.7); Neutrophils % (A) 58 %; Platelet Count 423 k/uL (150-450); WBC 14.4 k/uL (3.8-10.6)
[2018-08-19 13:37] LABS: ALT 13 U/L (9-52); AST 18 U/L (14-36); Acetaminophen 22.6 ug/mL; Albumin 3.9 g/dL (3.5-5.0); Alcohol <10 mg/dL; Alkaline Phosphatase 123 U/L (38-126); Anion Gap 10 mmol/L; Blood Urea Nitrogen 8 mg/dL (7-17); Calcium 9.3 mg/dL (8.4-10.2); Carbon Dioxide 21 mmol/L (22-30); Chloride 99 mmol/L (98-107); Creatine Kinase 88 U/L (30-135); Glucose 88 mg/dL (74-99); Lipase 60 U/L (23-300); Salicylate 1.3 mg/dL; Sodium 130 mmol/L (137-145); Total Bilirubin 0.4 mg/dL (0.2-1.3)
[2018-08-19 13:40] LABS: INR 1.1 (<1.2); Prothrombin Time 11.2 sec (9.0-12.0)
[2018-08-19 13:45] LABS: Appearance,Urine Clear (Clear); Bilirubin,Urine Negative (Negative); Blood,Urine Negative (Negative); Color,Urine Light Yellow; Glucose,Urine (UA) Negative (Negative); Ketones,Urine Negative (Negative); Leukocyte Esterase,Urine Negative (Negative); Nitrite,Urine Negative (Negative); Protein,Urine Negative (Negative); Specific Gravity,Urine 1.011 (1.001-1.035); Urobilinogen,Urine <2.0 mg/dL (<2.0)
[2018-08-19 13:51] LABS: Potassium 3.6 mmol/L (3.5-5.1)
[2018-08-19 13:55] LABS: Amphetamine Screen,Urine Not Detected (NotDetected); Benzodiazepines Screen,Urine Detected (NotDetected); Cocaine Screen,Urine Not Detected (NotDetected); Opiate Screen,Urine Detected (NotDetected); Phencyclidine Screen,Urine Not Detected (NotDetected); Tricyclic Antidepressant,Urine Detected (NotDetected); Urn Cannabinoid Scrn Not Detected (NotDetected)
[2018-08-19 13:56] LABS: Barbiturate Screen,Urine Detected (NotDetected); Methadone Screen, Urine Not Detected (NotDetected); Oxycodone Screen, Urine Detected (NotDetected)
[2018-08-19] MEDS ORDERED: SODIUM CHLORIDE 0.9% 1,000 ML IV ONE (15:31)
[2018-08-19] MEDS ORDERED: WATER IV ONE ×4 (17:03→22:30)
[2018-08-19] MEDS ORDERED: DEXTROSE 5% IV ONE ×4 (17:03→22:30)
[2018-08-19] MEDS ORDERED: ACETYLCYSTEINE IV ONE ×4 (17:03→22:30)
[2018-08-19 17:13] LABS: Valproic Acid (Depakene) <10.0 ug/mL
[2018-08-19] MEDS ORDERED: ACETYLCYSTEINE IV 3,800 MG in DEXTROSE 5% IN WATER 500 ML IV ONE ×2 (18:30)
[2018-08-19 18:41] LABS: Acetaminophen <10.0 ug/mL; Salicylate <1.0 mg/dL
--- NOTE | 2018-08-19 18:50 | P.HPIM ---
History of Present Illness H&P Date: 08/19/18 Chief Complaint: overdose Patient is 33-year-old who overdosed on multiple medications namely baclofen. She is awake but anxious and does not give much history. She states that she does not completely remember what happened. She was unresponsive initially but currently she is awake but anxious and twitching. She denies chest pain or shortness of breath, no nausea or vomiting. Review of Systems 10 systems reviewed pertinent positive and negative findings as in HPI no chest pain no abdominal pain Past Medical History Past Medical History: Asthma, Fibromyalgia, GERD/Reflux, Neurologic Disorder, Seizure Disorder, Thyroid Disorder Additional Past Medical History / Comment(s): crohns disease, diverticulosis, ibs, carpal tunnel, anemia, chronic back pain , migraines, pinched nerves, History of Any Multi-Drug Resistant Organisms: None Reported Past Surgical History: Adenoidectomy, Appendectomy, Cholecystectomy, Orthopedic Surgery, Tonsillectomy Additional Past Surgical History / Comment(s): EGD/colonoscopy, right ankle surgery Past Anesthesia/Blood Transfusion Reactions: No Reported Reaction Additional Past Anesthesia/Blood Transfusion Reaction / Comment(s): hallucinations Past Psychological History: Anxiety, Depression Smoking Status: Current every day smoker Past Alcohol Use History: None Reported Past Drug Use History: None Reported - Past Family History Father Family Medical History: Diabetes Mellitus, Hyperlipidemia Mother Family Medical History: Cancer, CVA/TIA, Deep Vein Thrombosis (DVT), Osteoarthritis (OA), Thyroid Disorder Additional Family Medical History / Comment(s): Extensive tattoos throughout body Medications and Allergies Home Medications Medication Instructions Recorded Confirmed Type Sertraline HCl [Zoloft] 200 mg PO DAILY 09/24/13 08/19/18 History Ranitidine HCl [Zantac] 150 mg PO BID 12/26/15 08/19/18 History Divalproex Sodium [Depakote] 2,000 mg PO BID 04/30/16 08/19/18 History QUEtiapine [SEROquel] 500 mg PO HS 04/22/17 08/19/18 History Lisinopril-Hctz 20-25 mg 2 tab PO DAILY 09/06/17 08/19/18 History [Zestoretic 20-25] Gabapentin [Neurontin] 800 mg PO TID 10/11/17 08/19/18 History Lurasidone [Latuda] 80 mg PO DAILY 10/11/17 08/19/18 History Butalb/APAP/Caff 50-325-40Mg 1 tab PO BID PRN 01/29/18 08/19/18 History [Fioricet 50-325-40] Ferrous Sulfate [Feosol] 325 mg PO DAILY 01/29/18 08/19/18 History Phentermine HCl [Adipex-P] 37.5 mg PO DAILY 01/29/18 08/19/18 History Propranolol [Inderal] 40 mg PO TID 01/29/18 08/19/18 History Simvastatin [Zocor] 20 mg PO HS 01/29/18 08/19/18 History Beclomethasone Dipropionate [Qvar 2 puff INHALATION RT-DAILY 02/07/18 08/19/18 History 80 mcg] ALPRAZolam [Xanax] 2 mg PO BID 08/07/18 08/19/18 History ALPRAZolam [Xanax] 2 mg PO BID 3 Days #5 tab 08/07/18 08/19/18 Rx Amitriptyline HCl [Elavil] 50 mg PO DAILY 08/07/18 08/19/18 History Black Cohosh 540 mg PO HS PRN 08/07/18 08/19/18 History Levothyroxine Sodium [Synthroid] 137 mcg PO DAILY 08/07/18 08/19/18 History Loratadine [Claritin] 10 mg PO DAILY 08/07/18 08/19/18 History Montelukast [Singulair] 10 mg PO DAILY 08/07/18 08/19/18 History Promethazine [Phenergan] 50 mg PO DAILY PRN 08/07/18 08/19/18 History QUEtiapine [SEROquel] 100 mg PO BID 08/07/18 08/19/18 History oxyCODONE-APAP 10-325MG [Percocet 1 tab PO QID 08/07/18 08/19/18 History 10-325 mg] Allergies Allergy/AdvReac Type Severity Reaction Status Date / Time dicyclomine [From Bentyl] Allergy Severe Hallucinati Verified 08/19/18 12:57 ons granisetron HCl [From Kytril] Allergy Severe Anaphylaxis Verified 08/19/18 12:57 baclofen Allergy Rash/Hives Verified 08/19/18 12:57 butorphanol tartrate Allergy Rash/Hives Verified 08/19/18 12:57 [From Stadol] ketorolac tromethamine Allergy Rash/Hives Verified 08/19/18 12:57 [From Toradol] meperidine HCl [From Demerol] Allergy Swelling Verified 08/19/18 12:57 methocarbamol [From Robaxin] Allergy Unknown Verified 08/19/18 12:57 pregabalin [From Lyrica] Allergy Unknown Verified 08/19/18 12:57 sulfamethoxazole Allergy Rash/Hives Verified 08/19/18 12:57 [From Bactrim] trimethoprim [From Bactrim] Allergy Rash/Hives Verified 08/19/18 12:57 codeine AdvReac Vomiting & Verified 08/19/18 12:57 Headache methylprednisolone AdvReac Vomiting & Verified 08/19/18 12:57 [From Medrol] Headache Physical Exam Vitals: Vital Signs Temp Pulse Resp BP Pulse Ox 08/19/18 17:29 16 137/97 99 08/19/18 17:00 101 H 137/102 98 08/19/18 16:36 89 151/130 98 08/19/18 15:00 90 14 143/106 99 08/19/18 13:48 77 14 112/79 98 08/19/18 12:52 98.0 F 101 H 16 122/109 96 Intake and Output 08/19/18 08/19/18 08/19/18 06:59 14:59 22:59 Intake Total 0 Balance 0 Intake: Oral 0 Other: Weight 74.843 kg Constitutional: Anxious Eyes: Anicteric sclerae, moist conjunctiva, PERRLA ENMT: NC/AT, Neck:Supple no masses, or JVD; No thyromegaly Lungs: Clear to auscultation, Clear to percussion, Normal respiratory effort, no accessory muscle use Cardiovascular: Heart regular in rate and rhythm, No murmurs, gallops, or rubs no peripheral edema Abdominal: Soft Nontender, nom distended, no guarding, no rebound or rigidity Skin: Normal temperature,+ tatoos Extremities:No digital cyanosis No clubbing, No calf tenderness Psychiatric: Alert and oriented to person, place and time, anxious Neuro: Muscles Strength 5/5 in all 4 extremities, Cranial nerves II-XII grossly intact. No focal sensory deficits Results CBC & Chem 7: 08/19/18 13:10 08/19/18 13:10 Labs: Abnormal Lab Results - Last 24 Hours (Table) 08/19/18 08/19/18 08/19/18 Range/Units 13:10 13:10 13:10 WBC 14.4 H (3.8-10.6) k/uL RDW 18.0 H (11.5-15.5) % Neutrophils # 8.3 H (1.3-7.7) k/uL Sodium 130 L (137-145) mmol/L Carbon Dioxide 21 L (22-30) mmol/L Urine Opiates Screen Detected H (NotDetected) Ur Oxycodone Screen Detected H (NotDetected) Ur Barbiturates Screen Detected H (NotDetected) U Tricyclic Antidepress Detected H (NotDetected) U Benzodiazepines Scrn Detected H (NotDetected) Assessment and Plan Plan: 1. Multiple medication overdose causing unresponsiveness: Urine drug screen positive for opiates, oxycodone, barbiturates, tricyclic antidepressants and benzos, poison control recommended acetylcysteine for Tylenol levels of 22.6. 2. Multiple medication withdrawals : with Anxiety, conservative treatment, transferred to the intensive care unit. 3. Asthma without exacerbation: Oxygen a broken that it is as indicated 4. Suspected bipolar disease: Conservative treatment 5. Transfer to intensive care unit, discussed with Dr. Siddiqui
[2018-08-19 19:32] LABS: Glucose,Whole Blood 179 mg/dL (75-99)
[2018-08-19] MEDS: QUEtiapine 100 MG TAB PO SCH (21:01)
[2018-08-19] MEDS: DIVALPROEX 500 MG TABLET.DR PO SCH (21:01)
[2018-08-20 05:37] LABS: Anisocytosis Slight; Basophils % (A) 0 %; Eosinophils # (A) 0.2 k/uL (0-0.7); Eosinophils % (A) 2 %; HCT 35.1 % (34.0-46.0); HGB 11.2 gm/dL (11.4-16.0); Lymphocytes # (A) 3.3 k/uL (1.0-4.8); Lymphocytes % (A) 36 %; MCH 29.9 pg (25.0-35.0); MCHC 31.8 g/dL (31.0-37.0); MCV 94.1 fL (80.0-100.0); Macrocytosis Slight; Monocytes # (A) 0.8 k/uL (0-1.0); Monocytes % (A) 8 %; Neutrophils # (A) 4.8 k/uL (1.3-7.7); Neutrophils % (A) 51 %; Platelet Count 419 k/uL (150-450); RBC 3.73 m/uL (3.80-5.40); RDW 18.3 % (11.5-15.5); WBC 9.3 k/uL (3.8-10.6)
[2018-08-20 06:05] LABS: ALT 8 U/L (9-52); AST 10 U/L (14-36); Albumin 3.2 g/dL (3.5-5.0); Alkaline Phosphatase 113 U/L (38-126); Anion Gap 8 mmol/L; Blood Urea Nitrogen 3 mg/dL (7-17); Calcium 8.9 mg/dL (8.4-10.2); Carbon Dioxide 21 mmol/L (22-30); Chloride 107 mmol/L (98-107); Glucose 111 mg/dL (74-99); Potassium 3.5 mmol/L (3.5-5.1); Sodium 136 mmol/L (137-145); Total Bilirubin 0.2 mg/dL (0.2-1.3); Total Protein 5.9 g/dL (6.3-8.2)
[2018-08-20] MEDS: LEVOTHYROXINE 137 MCG TAB PO SCH (06:22)
[2018-08-20] MEDS ORDERED: ALPRAZolam 1 MG TAB PO PRN (06:44)
[2018-08-20] MEDS ORDERED: Potassium Replacement Protocol 1 EACH MISC MISCELLANE PRN (06:54)
[2018-08-20] MEDS: POTASSIUM CHLORIDE ER 20 MEQ TAB.ER PO SCH ×2 (07:00→08:53)
[2018-08-20] MEDS ORDERED: ALPRAZolam 1 MG TAB PO SCH (07:00)
[2018-08-20] MEDS: DIVALPROEX 500 MG TABLET.DR PO SCH ×2 (08:50→20:51)
[2018-08-20] MEDS: SERTRALINE 100 MG TAB PO SCH (08:51)
[2018-08-20] MEDS: QUEtiapine 100 MG TAB PO SCH (08:51)
--- NOTE | 2018-08-20 10:12 | P.CNPUL ---
History of Present Illness Consult date: 08/20/18 Requesting physician: Stefan Alvarez Reason for consult: other (Critical care management) Chief complaint: Altered mental status History of present illness: This is a pleasant 33-year-old female patient who follows with physician in the [place] area. She has a history of hyperlipidemia, hypertension, hypothyroidism, asthma, anxiety/depression, bipolar disorder, seizure disorder, chronic back pain, chronic and ongoing tobacco dependence. She was brought here to the emergency room after being found with altered mental status. Urine drug screen was positive for opiates, oxycodone, barbiturates, antidepressants, benzodiazepines. She was initially admitted to the regular medical floor h owever she had worsening level of consciousness and transferred here to the intensive care unit. She is seen today in consultation in the intensive care unit. She is now awake and alert in no acute distress. She is maintaining good O2 saturations in the 90s on room air. She's 0.9 normal sinus at 10 MLS per hour. She denies any intentional overdose. She has no recollection of what happened yesterday. She denies any significant suicide attempts or depression. She had been started on new medication baclofen which may have reacted with some of her other multiple home medications which include oxycodone, Zoloft, Seroquel, Neurontin, Elavil, Xanax. Review of Systems REVIEW OF SYSTEMS: CONSTITUTIONAL: Denies any recent significant weight loss or weight gain. EYES: Denies change in vision. EARS, NOSE, MOUTH, THROAT: Denies headaches, denies sore throat. CARDIOVASCULAR: Denies chest pain, palpitations or syncopal episodes. RESPIRATORY: Denies shortness of breath, cough, congestion or hemoptysis. GASTROINTESTINAL: Denies change in appetite, denies abdominal pain GENITOURINARY: Denies hematuria, denies infections. MUSKULOSKELETAL: Denies pain, denies swelling. INTEGUMENTARY: Denies rash, denies eczema. NEUROLOGICAL: Positive for recent memory loss, no recent seizure activity. PSYCHIATRIC: Denies anxiety, denies depression. HEMATOLOGIC/LYMPHATIC: Denies anemia, denies enlarged lymph nodes. Past Medical History Past Medical History: Asthma, Fibromyalgia, GERD/Reflux, Neurologic Disorder, Seizure Disorder, Thyroid Disorder Additional Past Medical History / Comment(s): crohns disease, diverticulosis, ibs, carpal tunnel, anemia, chronic back pain , migraines, pinched nerves, History of Any Multi-Drug Resistant Organisms: None Reported Past Surgical History: Adenoidectomy, Appendectomy, Cholecystectomy, Orthopedic Surgery, Tonsillectomy Additional Past Surgical History / Comment(s): EGD/colonoscopy, right ankle surgery Past Anesthesia/Blood Transfusion Reactions: No Reported Reaction Additional Past Anesthesia/Blood Transfusion Reaction / Comment(s): rios llucinations Smoking Status: Current every day smoker - Past Family History Father Family Medical History: Diabetes Mellitus, Hyperlipidemia Mother Family Medical History: Cancer, CVA/TIA, Deep Vein Thrombosis (DVT), Osteoarthritis (OA), Thyroid Disorder Additional Family Medical History / Comment(s): Extensive tattoos throughout body Medications and Allergies Home Medications Medication Instructions Recorded Confirmed Type Sertraline HCl [Zoloft] 200 mg PO DAILY 09/24/13 08/19/18 History Ranitidine HCl [Zantac] 150 mg PO BID 12/26/15 08/19/18 History Divalproex Sodium [Depakote] 2,000 mg PO BID 04/30/16 08/19/18 History QUEtiapine [SEROquel] 500 mg PO HS 04/22/17 08/19/18 History Lisinopril-Hctz 20-25 mg 2 tab PO DAILY 09/06/17 08/19/18 History [Zestoretic 20-25] Gabapentin [Neurontin] 800 mg PO TID 10/11/17 08/19/18 History Lurasidone [Latuda] 80 mg PO DAILY 10/11/17 08/19/18 History Butalb/APAP/Caff 50-325-40Mg 1 tab PO BID PRN 01/29/18 08/19/18 History [Fioricet 50-325-40] Ferrous Sulfate [Feosol] 325 mg PO DAILY 01/29/18 08/19/18 History Phentermine HCl [Adipex-P] 37.5 mg PO DAILY 01/29/18 08/19/18 History Propranolol [Inderal] 40 mg PO TID 01/29/18 08/19/18 History Simvastatin [Zocor] 20 mg PO HS 01/29/18 08/19/18 History Beclomethasone Dipropionate [Qvar 2 puff INHALATION RT-DAILY 02/07/18 08/19/18 History 80 mcg] ALPRAZolam [Xanax] 2 mg PO BID 08/07/18 08/19/18 History ALPRAZolam [Xanax] 2 mg PO BID 3 Days #5 tab 08/07/18 08/19/18 Rx Amitriptyline HCl [Elavil] 50 mg PO DAILY 08/07/18 08/19/18 History Black Cohosh 540 mg PO HS PRN 08/07/18 08/19/18 History Levothyroxine Sodium [Synthroid] 137 mcg PO DAILY 08/07/18 08/19/18 History Loratadine [Claritin] 10 mg PO DAILY 08/07/18 08/19/18 History Montelukast [Singulair] 10 mg PO DAILY 08/07/18 08/19/18 History Promethazine [Phenergan] 50 mg PO DAILY PRN 08/07/18 08/19/18 History QUEtiapine [SEROquel] 100 mg PO BID 08/07/18 08/19/18 History oxyCODONE-APAP 10-325MG [Percocet 1 tab PO QID 08/07/18 08/19/18 History 10-325 mg] Allergies Allergy/AdvReac Type Severity Reaction Status Date / Time dicyclomine [From Bentyl] Allergy Severe Hallucinati Verified 08/19/18 12:57 ons granisetron HCl [From Kytril] Allergy Severe Anaphylaxis Verified 08/19/18 12:57 baclofen Allergy Rash/Hives Verified 08/19/18 12:57 butorphanol tartrate Allergy Rash/Hives Verified 08/19/18 12:57 [From Stadol] ketorolac tromethamine Allergy Rash/Hives Verified 08/19/18 12:57 [From Toradol] meperidine HCl [From Demerol] Allergy Swelling Verified 08/19/18 12:57 methocarbamol [From Robaxin] Allergy Unknown Verified 08/19/18 12:57 pregabalin [From Lyrica] Allergy Unknown Verified 08/19/18 12:57 sulfamethoxazole Allergy Rash/Hives Verified 08/19/18 12:57 [From Bactrim] trimethoprim [From Bactrim] Allergy Rash/Hives Verified 08/19/18 12:57 codeine AdvReac Vomiting & Verified 08/19/18 12:57 Headache methylprednisolone AdvReac Vomiting & Verified 08/19/18 12:57 [From Medrol] Headache Physical Exam Vitals: Vital Signs Temp Pulse Pulse Resp BP BP Pulse Ox 08/20/18 09:00 106 H 24 133/98 93 L 08/20/18 08:00 98.3 F 103 H 24 151/99 93 L 08/20/18 07:00 98 17 151/99 96 08/20/18 06:00 99 25 H 123/94 94 L 08/20/18 05:01 94 17 119/85 94 L 08/20/18 04:00 97.8 F 101 H 20 102/73 92 L 08/20/18 03:00 92 17 127/78 95 08/20/18 02:00 92 16 139/89 94 L 08/20/18 01:00 90 15 117/87 92 L 08/20/18 00:00 98.6 F 100 18 122/96 93 L 08/19/18 23:30 101 H 22 120/89 95 08/19/18 23:00 104 H 12 106/84 93 L 08/19/18 22:30 104 H 23 110/84 96 08/19/18 22:00 103 H 15 95/66 93 L 08/19/18 21:30 105 H 15 111/76 93 L 08/19/18 21:00 111 H 21 144/104 98 08/19/18 20:30 112 H 19 138/101 97 08/19/18 20:00 98.3 F 102 H 19 142/107 98 08/19/18 19:57 98.3 F 106 H 18 142/107 98 08/19/18 19:30 104 H 13 133/102 98 08/19/18 17:29 16 137/97 99 08/19/18 17:00 101 H 137/102 98 08/19/18 16:36 89 151/130 98 08/19/18 15:00 90 14 143/106 99 08/19/18 13:48 77 14 112/79 98 08/19/18 12:52 98.0 F 101 H 16 122/109 96 Intake and Output 08/19/18 08/20/18 08/20/18 22:59 06:59 14:59 Intake Total 1820 992 394 Output Total 2 Balance 1820 990 394 Intake: Amount of Fluid Infused ( 1000 ml) Intake, IV Titration 460 992 144 Amount Acetylcysteine IV 11,200 372 124 mg In Dextrose 5% in Water 200 ml @ 256 mls/hr IV ONCE ONE Rx#: [id number] Acetylcysteine IV 3,800 260 260 mg In Dextrose 5% in Water 500 ml @ 129.75 mls /hr IV ONCE ONE Rx#: [id number] Sodium Chloride 0.9% 1, 200 360 20 000 ml @ 100 mls/hr IV . Q10H ONE Rx#:[id number] Oral 360 250 Output: Urine 2 Other: # Voids 2 1 2 Weight 86 kg GENERAL EXAM: Alert, oriented, comfortable in no apparent distress. On room air. HEAD: Normocephalic. EYES: Normal reaction of pupils, equal size. NOSE: Clear with pink turbinates. THROAT: No erythema or exudates. NECK: No masses, no JVD. CHEST: No chest wall deformity. LUNGS: Equal air entry with no crackles, wheeze, rhonchi or dullness. CVS: S1 and S2 normal with no audible murmur, regular rhythm. ABDOMEN: No hepatosplenomegaly, normal bowel sounds, no guarding or rigidity. SPINE: No scoliosis or deformity SKIN: No rashes CENTRAL NERVOUS SYSTEM: No focal deficits, tone is normal in all 4 extremities. EXTREMITIES: There is no peripheral edema. No clubbing, no cyanosis. Peripheral pulses are intact. Results - Laboratory Findings CBC and BMP: 08/20/18 04:52 08/20/18 04:52 PT/INR, D-dimer PT 11.2 sec (9.0-12.0) 08/19/18 13:10 INR 1.1 (<1.2) 08/19/18 13:10 Abnormal lab findings: Abnormal Labs 08/19/18 08/19/18 08/19/18 13:10 13:10 13:10 WBC 14.4 H RBC Hgb RDW 18.0 H Neutrophils # 8.3 H Sodium 130 L Carbon Dioxide 21 L BUN Creatinine Glucose POC Glucose (mg/dL) AST ALT Total Protein Albumin Urine Opiates Screen Detected H Ur Oxycodone Screen Detected H Ur Barbiturates Screen Detected H U Tricyclic Antidepress Detected H U Benzodiazepines Scrn Detected H 08/19/18 08/20/18 08/20/18 18:43 04:52 04:52 WBC RBC 3.73 L Hgb 11.2 L RDW 18.3 H Neutrophils # Sodium 136 L Carbon Dioxide 21 L BUN 3 L Creatinine 0.51 L Glucose 111 H POC Glucose (mg/dL) 179 H AST 10 L ALT 8 L Total Protein 5.9 L Albumin 3.2 L Urine Opiates Screen Ur Oxycodone Screen Ur Barbiturates Screen U Tricyclic Antidepress U Benzodiazepines Scrn Assessment and Plan Assessment: Impression: #1 Altered mental status secondary to suspected polypharmacy including mood altering and sedative medications. #2 Accidental overdose secondary to above, patient denies suicide attempt. #3 History of bipolar disorder. #4 History of anxiety/depression. #5 Hypertension. #6 Hyperlipidemia. #8 Hypothyroidism. #9 Mild intermittent chronic bronchial asthma, currently inactive and stable. Plan: The patient was seen and evaluated by Dr. Siddiqui. She is awake and alert in no acute distress. On room air. Able to transfer out of the intensive care unit today to the regular medical floor. Psychiatry has been consulted. We will follow the patient on as-needed basis. I, the cosigning physician, performed a history & physical examination of the patient. Lungs sounds are clear. Maintaining good O2 saturations in the 90s on room air. I discussed the assessment and plan of care with my nurse practitioner, Denise Maldonado. I attest to the above note as dictated by her. Time with Patient: Greater than 30
[2018-08-20] MEDS: oxyCODONE-APAP 10-325MG 1 EACH TAB PO PRN ×2 (10:13→18:04)
[2018-08-20] MEDS: GABAPENTIN 300 MG CAP PO SCH ×3 (10:18→20:51)
--- NOTE | 2018-08-20 12:09 | P.CN ---
Psychiatric Consult - . Consult:: 08/20/18 11:58 Identifying data: This patient is a 33-year-old female who was admitted to the hospital with suspected overdose and respiratory compromise. History of present illness: The patient states that she presented to the hospital confused. She believes that there was a medication interaction altering her level of consciousness. She is prescribed numerous medications and states that she recently her baclofen dose was increased. She states that she had no intent or plan or harming herself. At no point did she plan on overusing medication. The patient's mother and stepfather present at bedside. The patient states that she does have a diagnosed bipolar disorder. She states she hasn't been feeling particularly depressed lately but has been struggling with anxiety. She indicates that she does deal with several other physical comorbidities. She does not describe hypomanic or manic episodes but her mother and stepfather feel that she will have elements of those episodes. She reports no thoughts of harming others she is endorsing no auditory or visual hallucinations or specific delusions. Past psychiatric history: No prior inpatient psychiatric admissions no history of suicide attempts. Apparently her psychotropic medications are prescribed to her by a physician law office assistant at her primary care physician's office. She is being prescribed Seroquel 500 mg at bedtime Latuda 80 mg daily Zoloft 200 mg daily Elavil 50 mg at bedtime Xanax 2 mg twice daily. Of note the patient is prescribed Percocet by a pain physician as well. The patient states that she has not been complying with Zoloft very well except for the last 2 weeks. The Seroquel was prescribed 150 mg twice daily and 500 mg at bedtime but she felt that was too much. She indicates the Latuda was added by her physician law office assistant to help with depression but she has noticed no benefit. She had planned on working with a counselor and a local [facility] [place] counseling [facility] and is hoping to meet with their nurse practitioner for psychiatric medication management. 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 She is unemployed on a disability income. Mental status exam: The patient is an overweight female appearing her stated age. She has a disheveled appearance she is dressed in hospital attire. She does have visible tattoos on upper extremities. She does wear eyeglasses. She is pleasant and cooperative for the duration of our session. Again her mother and stepfather are present for the session and participate as well. She describes no recent feelings of depression but does endorse feelings of anxiety. He reports no suicidal ideation intent or plan she reports no homicidal ideation intent or plan. She describes no auditory or visual hallucinations or any specific delusions. There is no observed evidence of psychosis. She demonstrates no tangential thinking loose associations or flight of ideas. She does not appear hypomanic or manic. Insight and judgment grossly intact. She is oriented to person place and date. Affect is appropriately expressive. Impressions 1. Delirium secondary to medication interactionresolved, panic attacks, depression unspecified, rule out opiate abuse disorder Plan: The patient does not require inpatient psychiatric hospitalization. She adamantly denies having any acute suicidal ideation now or at the time the medication interaction occurred. Her mother indicates she does not feel that the patient is admitted acute safety risk and is interested in her getting outpatient help. At great length we discussed the importance for her to reduce the number of medications she is prescribed. We discussed the dangers of using Percocet with higher dose Xanax. We discussed that it's not conventional to combine 2 antipsychotic medications. She is instructed to taper off of the Latuda by reducing to 40 mg daily for 5 days then discontinuing. She is encouraged to continue the Zoloft 200 mg daily being sure that she is taking the medication every day. She will continue the Seroquel 500 mg at bedtime. She is encouraged to begin reducing the Xanax and a tapering fashion by reducing to a total of 3 mg daily. She was educated that the Xanax should be a temporary medication and not use long-term. At this time there is no imminent safety risk she is appropriate for transition to outpatient care. She plans on attending treatment at [facility]. We discussed that she can also engage in the [facility] hospital program at [facility] if she felt that level of care was needed. She is instructed to return to the hospital with any acute safety concerns. The patient's mother is agreeable to dispensing the patient's medications to her.
[2018-08-20 12:48] VITALS: RESP 16
[2018-08-20] MEDS: ALPRAZolam 1 MG TAB PO PRN (15:22)
--- NOTE | 2018-08-20 16:06 | P.PN ---
Subjective Progress Note Date: 08/20/18 (delayed charting seen at 0815) Principal diagnosis: altered mentation Patient is a 33-year-old female with a history of fibromyalgia, asthma, Crohn's disease, irritable bowel syndrome, chronic back pain, migraine headaches, GERD, and seizure disorder who presented to the emergency department via EMS for decreased responsiveness. Per EMS there was no response to Narcan. In the emergency department she underwent an extensive evaluation. Her initial vital signs showed tachycardia with a pulse of 101. Initial laboratory analysis showed an elevated white blood cell count at 14.4, low sodium at 130, Tylenol level of 22.9. Her urine drug screen was remarkable for opiates, oxycodone, barbiturates, tricyclics, and benzodiazepines. There is concern for intentional versus unintentional overdose. Due to her level of lethargy she was initially admitted to the floor but then transferred to ICU for further monitoring. By the morning of 08/20 she was awake and alert and oriented. She states that her baclofen was recently increased from 10-20 mg and her Percocet had been taking more often. Patient seen and examined at bedside. She states that her pain is fairly well controlled. She states that her PCP recently increased her baclofen from 10-20 mg. She states she sees Dr. Lopez for pain management and typically takes oxycodone 3 times a day. She believes she took baclofen and then may have taken an extra dose of oxycodone leading to confusion yesterday. She adamantly denies any intent for self-harm, or suicidal ideation. We discussed at length that she is on multiple medications for pain control, depression, and anxiety. There is a potential for interaction between these medications currently can increase the effects of other medications. I discussed with her that Dr. Lopez should be the only one prescribing medications for pain including baclofen and this should not be being managed by her PCP on top of Dr. Lopez managing her Percocet. She is also on multiple psychiatric medications and is awaiting psychiatry input. Objective - Vital Signs Vital signs: Vital Signs Temp 98.6 F 08/20/18 12:32 Pulse 107 H 08/20/18 12:32 Resp 16 08/20/18 12:32 BP 136/91 08/20/18 12:32 Pulse Ox 97 08/20/18 12:32 Intake & Output 08/19/18 08/20/18 08/20/18 18:59 06:59 18:59 Intake Total 1000 1812 974 Output Total 2 1 Balance 1000 1810 973 Weight 74.843 kg 86 kg Intake: Amount of Fluid Infused ( 1000 ml) Intake, IV Titration 1452 144 Amount Acetylcysteine IV 11,200 372 124 mg In Dextrose 5% in Water 200 ml @ 256 mls/hr IV ONCE ONE Rx#: [id number] Acetylcysteine IV 3,800 520 mg In Dextrose 5% in Water 500 ml @ 129.75 mls /hr IV ONCE ONE Rx#: [id number] Sodium Chloride 0.9% 1, 560 20 000 ml @ 100 mls/hr IV . Q10H ONE Rx#:[id number] Oral 0 360 830 Output: Urine 2 1 Other: # Voids 1 1 - Exam General: Nontoxic, no distress, appears at stated age Derm: warm, dry, Multiple tattoos, Head: atraumatic, normocephalic, symmetric Eyes: EOMI, no lid lag, anicteric sclera Mouth: no lip lesion, mucus membranes moist Cardiovascular: S1S2 reg, no murmur, positive posterior tibial pulse bilateral, Lungs: CTA bilateral, no rhonchi, no rales , no accessory muscle use Abdominal: soft, nontender to palpation, no guarding, no appreciable organomegaly Ext: no gross muscle atrophy, no edema, no contractures Neuro: CN II-XI grossly intact, no focal neuro deficits Psych: Alert, oriented, appropriate affect - Labs CBC & Chem 7: 08/20/18 04:52 08/20/18 04:52 Labs: Abnormal Lab Results - Last 24 Hours (Table) 08/19/18 08/19/18 08/20/18 Range/Units 13:10 18:43 04:52 RBC 3.73 L (3.80-5.40) m/uL Hgb 11.2 L (11.4-16.0) gm/dL RDW 18.3 H (11.5-15.5) % Sodium 130 L (137-145) mmol/L Carbon Dioxide 21 L (22-30) mmol/L BUN (7-17) mg/dL Creatinine (0.52-1.04) mg/dL Glucose (74-99) mg/dL POC Glucose (mg/dL) 179 H (75-99) mg/dL AST (14-36) U/L ALT (9-52) U/L Total Protein (6.3-8.2) g/dL Albumin (3.5-5.0) g/dL 08/20/18 Range/Units 04:52 RBC (3.80-5.40) m/uL Hgb (11.4-16.0) gm/dL RDW (11.5-15.5) % Sodium 136 L (137-145) mmol/L Carbon Dioxide 21 L (22-30) mmol/L BUN 3 L (7-17) mg/dL Creatinine 0.51 L (0.52-1.04) mg/dL Glucose 111 H (74-99) mg/dL POC Glucose (mg/dL) (75-99) mg/dL AST 10 L (14-36) U/L ALT 8 L (9-52) U/L Total Protein 5.9 L (6.3-8.2) g/dL Albumin 3.2 L (3.5-5.0) g/dL Assessment and Plan Assessment: Overdose, unintentional - resume percocet to prevent withdrawal, limit baclofen-resume gabapentin but at a lower dose to prevent withdrawal - Decreased xanax - await psych recs - need 1 physicians managing pain medications - Should not be combining Fioricet with Percocet Depression with anxiety -Await psych -Patient combination of medications including Zoloft, what to do, Seroquel, Adipex, Depakote, and Elavil -Again recommending streamlined medication regimen as patient has polypharmacy. At the age of 33 she is on 21 different medications. -Patient recommended to stream line medications Hyponatremia - Hold Zestoretic -Off IV fluids -Repeat in a.m. Mild intermittent asthma without exacerbation -Continue with Qvar -When necessary bronchodilators -Pulmonary recommendations appreciated Hypothyroidism -Continue with Synthroid -Check TSH Dyslipidemia -Zocor Transfer to the medical surgical floor, likely home in a.m. DVT prophylaxis: early ambulation Discussed with: patient, nursing Anticipated discharge: [address]: home A total of [35] minutes was spent on the care of this complex patient more than 50% of the time was spent in counseling and care coordination.
[2018-08-20] MEDS ORDERED: QUEtiapine 100 MG TAB PO SCH (21:00)
[2018-08-20] MEDS ORDERED: ATORVASTATIN 10 MG TAB PO SCH (21:00)
[2018-08-21] MEDS: oxyCODONE-APAP 10-325MG 1 EACH TAB PO PRN ×2 (02:18→09:17)
[2018-08-21] MEDS: LEVOTHYROXINE 137 MCG TAB PO SCH (06:17)
[2018-08-21] MEDS: GABAPENTIN 300 MG CAP PO SCH (07:46)
[2018-08-21] MEDS: SERTRALINE 100 MG TAB PO SCH (07:46)
[2018-08-21] MEDS: DIVALPROEX 500 MG TABLET.DR PO SCH (07:46)
[2018-08-21] MEDS: QUEtiapine 100 MG TAB PO SCH ×2 (07:46→07:50)
[2018-08-21 07:55] LABS: Anisocytosis Slight; Basophils % (A) 0 %; Eosinophils # (A) 0.2 k/uL (0-0.7); Eosinophils % (A) 2 %; HCT 32.1 % (34.0-46.0); HGB 10.2 gm/dL (11.4-16.0); Lymphocytes # (A) 3.1 k/uL (1.0-4.8); Lymphocytes % (A) 30 %; MCH 30.2 pg (25.0-35.0); MCHC 31.9 g/dL (31.0-37.0); MCV 94.7 fL (80.0-100.0); Macrocytosis Slight; Mean Platelet Volume 7.4; Monocytes # (A) 0.7 k/uL (0-1.0); Monocytes % (A) 7 %; Neutrophils # (A) 6.1 k/uL (1.3-7.7); Neutrophils % (A) 59 %; Platelet Count 386 k/uL (150-450); RBC 3.38 m/uL (3.80-5.40); WBC 10.3 k/uL (3.8-10.6)
[2018-08-21 07:59] LABS: ALT 13 U/L (9-52); AST 10 U/L (14-36); Alkaline Phosphatase 103 U/L (38-126); Anion Gap 7 mmol/L; Blood Urea Nitrogen 9 mg/dL (7-17); Calcium 8.5 mg/dL (8.4-10.2); Carbon Dioxide 23 mmol/L (22-30); Chloride 110 mmol/L (98-107); Glucose 99 mg/dL (74-99); Sodium 140 mmol/L (137-145); Total Bilirubin 0.1 mg/dL (0.2-1.3); Total Protein 5.5 g/dL (6.3-8.2)
[2018-08-21] MEDS ORDERED: FLUTICASONE 110 MCG INHALER INHALATION SCH (08:00)
[2018-08-21] MEDS: ALPRAZolam 1 MG TAB PO PRN (08:04)
[2018-08-21 09:33] LABS: T4, Free (Free Thyroxine) 0.98 ng/dL (0.78-2.19)
[2018-08-21 12:27] VITALS: BP 118/79; PULSE 91; TEMP 98.1
--- NOTE | 2018-08-21 12:58 | P.DS ---
Providers Date of admission: 08/20/18 08:13 Expected date of discharge: 08/21/18 Attending physician: Stefan Alvarez MD Consults: 08/19/18 15:31 Consult Physician Routine Consulting Provider: Art Douglas Consult Reason/Comments: OD,SI Do you want consulting provider notified?: Yes 08/20/18 06:45 Consult Physician Routine Consulting Provider: Pedro Siddiqui Consult Reason/Comments: ICU management Do you want consulting provider notified?: Already Contacted Primary care physician: Joan Meeks [facility] Course: Discharge Diagnosis: Unintentional overdose Polypharmacy Depression with anxiety Hyponatremia Mild intermittent asthma without exacerbation Hypothyroidism Dyslipidemia Hypertension Hospital Course: Patient is a 33-year-old female with a history of fibromyalgia, asthma, Crohn's disease, irritable bowel syndrome, chronic back pain, migraine headaches, GERD, and seizure disorder who presented to the emergency department via EMS for decreased responsiveness. Per EMS there was no response to Narcan. In the emergency department she underwent an extensive evaluation. Her initial vital signs showed tachycardia with a pulse of 101. Initial laboratory analysis showed an elevated white blood cell count at 14.4, low sodium at 130, Tylenol level of 22.9. Her urine drug screen was remarkable for opiates, oxycodone, barbiturates, tricyclics, and benzodiazepines. There is concern for intentional versus unintentional overdose. Due to her level of lethargy she was initially admitted to the floor but then transferred to ICU for further monitoring. By the morning of 08/20 she was awake and alert and oriented. She states that her baclofen was recently increased from 10-20 mg and her Percocet had been taking more often, she has also had recent changes in her depression medications. She was awake and alert and her percocet was restarted. She was seen by psych and does not need inpatient treatment. Patient is very motivated to reduce the number of her medications. She is going to seek treatment at [facility]. She will work with her pain management doctor to reduce the number of her medications. I also recommended not having her PCP address pain and adding medications. She will stay of baclofen, reduce percocet to three times daily, reduce Xanax to 2 mg twice daily and then slow stop this medication. She will take Latuda 40 mg daily for 5 days and then stop. I also recommend not combining percocet with fioricet. All questions answered. Mother and father actively inv olved. Patient determined stable for discharge. Was told that she could take Aleve twice daily for her sternal pain. Patient seen and examined at bedside. C/O sternal pain with mvt after having sternal rub, no chest pain, shortness of breath, nausea, or vomiting, no signs of withdrawal. Vital signs reviewed and stable. General: non toxic, no distress, appears at stated age Derm: warm, dry Head: atraumatic, normocephalic, symmetric Eyes: EOMI, no lid lag, anicteric sclera Mouth: no lip lesion, mucus membranes moist Cardiovascular: S1S2 reg, no murmur, positive posterior tibial pulse bilateral, Lungs: CTA bilateral, no rhonchi, no rales , no accessory muscle use Abdominal: soft, nontender to palpation, no guarding, no appreciable organomegaly Ext: no gross muscle atrophy, no edema, no contractures Neuro: CN II-XI grossly intact, no focal neuro deficits Psych: Alert, oriented, appropriate affect A total of 35 minutes of time were spent preparing this complex discharge summary . Patient Condition at Discharge: Fair Plan - Discharge Summary Discharge Rx Participant: No New Discharge Prescriptions: Continue Sertraline HCl [Zoloft] 200 mg PO DAILY Ranitidine HCl [Zantac] 150 mg PO BID Divalproex Sodium [Depakote] 2,000 mg PO BID QUEtiapine [SEROquel] 500 mg PO HS Gabapentin [Neurontin] 800 mg PO TID Ferrous Sulfate [Iron (65 MG Elemental)] 325 mg PO DAILY Simvastatin [Zocor] 20 mg PO HS Propranolol [Inderal] 40 mg PO TID Beclomethasone Dipropionate [Qvar 80 mcg] 2 puff INHALATION RT-DAILY Promethazine [Phenergan] 50 mg PO DAILY PRN PRN Reason: Nausea And Vomiting Montelukast [Singulair] 10 mg PO DAILY Loratadine [Claritin] 10 mg PO DAILY QUEtiapine [SEROquel] 100 mg PO BID Levothyroxine Sodium [Synthroid] 137 mcg PO DAILY Amitriptyline HCl [Elavil] 50 mg PO DAILY Black [place]osh 540 mg PO HS PRN PRN Reason: NIGHT SWEATS ALPRAZolam [Xanax] 2 mg PO BID 3 Days #5 tab Changed oxyCODONE-APAP 10-325MG [Percocet 10-325 mg] 1 tab PO TID #0 Lisinopril-Hctz 20-25 mg [Zestoretic 20-25] 1 tab PO DAILY #0 Discontinued Lurasidone [Latuda] 80 mg PO DAILY Butalb/APAP/Caff 50-325-40Mg [Fioricet 50-325-40] 1 tab PO BID PRN PRN Reason: Pain Phentermine HCl [Adipex-P] 37.5 mg PO DAILY ALPRAZolam [Xanax] 2 mg PO BID Discharge Medication List Sertraline HCl [Zoloft] 200 mg PO DAILY 09/24/13 [History] Ranitidine HCl [Zantac] 150 mg PO BID 12/26/15 [History] Divalproex Sodium [Depakote] 2,000 mg PO BID 04/30/16 [History] QUEtiapine [SEROquel] 500 mg PO HS 04/22/17 [History] Gabapentin [Neurontin] 800 mg PO TID 10/11/17 [History] Ferrous Sulfate [Iron (65 MG Elemental)] 325 mg PO DAILY 01/29/18 [History] Propranolol [Inderal] 40 mg PO TID 01/29/18 [History] Simvastatin [Zocor] 20 mg PO HS 01/29/18 [History] Beclomethasone Dipropionate [Qvar 80 mcg] 2 puff INHALATION RT-DAILY 02/07/18 [History] ALPRAZolam [Xanax] 2 mg PO BID 3 Days #5 tab 08/07/18 [Rx] Amitriptyline HCl [Elavil] 50 mg PO DAILY 08/07/18 [History] Black Cohosh 540 mg PO HS PRN 08/07/18 [History] Levothyroxine Sodium [Synthroid] 137 mcg PO DAILY 08/07/18 [History] Loratadine [Claritin] 10 mg PO DAILY 08/07/18 [History] Montelukast [Singulair] 10 mg PO DAILY 08/07/18 [History] Promethazine [Phenergan] 50 mg PO DAILY PRN 08/07/18 [History] QUEtiapine [SEROquel] 100 mg PO BID 08/07/18 [History] Lisinopril-Hctz 20-25 mg [Zestoretic 20-25] 1 tab PO DAILY #0 08/21/18 [Rx] oxyCODONE-APAP 10-325MG [Percocet 10-325 mg] 1 tab PO TID #0 08/21/18 [Rx] Follow up Appointment(s)/Referral(s): Joan Meeks MD [Primary Care Provider] - 1-2 days Activity/Diet/Wound Care/Special Instructions: Regular diet Activity as tolerated Recommend Xanax 2 mg twice daily and then reduce down, Latuda 40 mg daily for 5 days and then stop Avoid fioricet and Percocet combination Highlt recommend going through your list of medications with Dr. Lopez
== END 2018-08-21 13:29 | disposition home or self-care (01) | DRG 918 ==
LOC: EC 12:49 → SUPCPDRO 12:49 → 3SCARD 15:31 → 2SICU 18:40 → OBSVTOIN 08-20 08:13 → 3NMEDONC 08-20 12:10
PROVIDERS: ADMIT Family Medicine; ATTEND Family Medicine
DX: T42.6X1A Poisoning by other antiepileptic and sedative-hypnotic drugs, accidental (unintentional), initial encounter (principal); E87.1 Hypo-osmolality and hyponatremia; K50.90 Crohn's disease, unspecified, without complications; T40.2X1A Poisoning by other opioids, accidental (unintentional), initial encounter; T39.1X1A Poisoning by 4-Aminophenol derivatives, accidental (unintentional), initial encounter; J45.20 Mild intermittent asthma, uncomplicated; I10 Essential (primary) hypertension; E03.9 Hypothyroidism, unspecified; E78.5 Hyperlipidemia, unspecified; F17.210 Nicotine dependence, cigarettes, uncomplicated; F31.9 Bipolar disorder, unspecified; F41.8 Other specified anxiety disorders; G40.909 Epilepsy, unspecified, not intractable, without status epilepticus; K21.9 Gastro-esophageal reflux disease without esophagitis; M79.7 Fibromyalgia; Z79.890 Hormone replacement therapy; Z79.899 Other long term (current) drug therapy; Z83.3 Family history of diabetes mellitus; F41.0 Panic disorder [episodic paroxysmal anxiety]; Z88.5 Allergy status to narcotic agent; Z88.2 Allergy status to sulfonamides; Z88.8 Allergy status to other drugs, medicaments and biological substances; Z56.0 Unemployment, unspecified; Z82.49 Family history of ischemic heart disease and other diseases of the circulatory system; Z82.61 Family history of arthritis; Z83.2 Family history of diseases of the blood and blood-forming organs and certain disorders involving the immune mechanism; M54.9 Dorsalgia, unspecified; G89.29 Other chronic pain; G43.909 Migraine, unspecified, not intractable, without status migrainosus
CPT/HCPCS: 36415; 80053; 80164; 80306; 80320; 80329; 81003; 81025; 82550; 83520; 83690; 84439; 84443; 84484; 85025; 85610; 93005; 96361; 96365; 99285

== ENCOUNTER 2018-09-02 19:03 | Inpatient (IN) | payer OTHER ==
[2018-09-02] MEDS ORDERED: ONDANSETRON 4 MG/2 ML VIAL IVP STA (19:46)
[2018-09-02] MEDS ORDERED: SODIUM CHLORIDE 0.9% 1,000 ML IV STA ×2 (19:46)
[2018-09-02] MEDS ORDERED: MORPHINE SULFATE 4 MG/ML SYRINGE IV STA (19:46)
[2018-09-02] MEDS ORDERED: PANTOPRAZOLE 40 MG/10 ML VIAL IVP STA (19:47)
[2018-09-02 20:15] LABS: Amorphous Sediment,Urine Rare /hpf; Appearance,Urine Clear (Clear); Bacteria,Urine Rare /hpf; Bilirubin,Urine Negative (Negative); Blood,Urine Negative (Negative); Color,Urine Colorless; Glucose,Urine (UA) Negative (Negative); Ketones,Urine Negative (Negative); Leukocyte Esterase,Urine Trace (Negative); Nitrite,Urine Negative (Negative); PH, Urine 6.5 (5.0-8.0); Protein,Urine Negative (Negative); Specific Gravity,Urine 1.003 (1.001-1.035); Squamous Epithelial Cell,Urine 4 /hpf (0-4); Urobilinogen,Urine <2.0 mg/dL (<2.0); WBC,Urine 3 /hpf (0-5)
--- NOTE | 2018-09-02 20:16 | XR ---
EXAMINATION TYPE: XR abdomen acute w cxr DATE OF EXAM: 09/02/2018 COMPARISON: 02/07/2018 HISTORY: Abdominal pain TECHNIQUE: Chest x-ray with supine and upright abdomen FINDINGS: Heart and mediastinum are normal. Lungs are clear. Diaphragm is normal. Bowel gas pattern is normal. There is no sign of intestinal obstruction or pneumoperitoneum. Fecal pattern is normal. There are cl ips from cholecystectomy. Bony structures are intact. There is no sign of a mass. IMPRESSION: Nonacute abdomen. Normal chest.
[2018-09-02 20:18] LABS: ALT 12 U/L (9-52); AST 11 U/L (14-36); Albumin 3.3 g/dL (3.5-5.0); Alkaline Phosphatase 116 U/L (38-126); Amylase 97 U/L (30-110); Anion Gap 7 mmol/L; Blood Urea Nitrogen 3 mg/dL (7-17); Calcium 8.8 mg/dL (8.4-10.2); Carbon Dioxide 23 mmol/L (22-30); Chloride 111 mmol/L (98-107); Creatine Kinase 47 U/L (30-135); Glucose 114 mg/dL (74-99); Lipase 79 U/L (23-300); Phosphorus 3.9 mg/dL (2.5-4.5); Potassium 4.1 mmol/L (3.5-5.1); Sodium 141 mmol/L (137-145); Total Bilirubin 0.1 mg/dL (0.2-1.3); Total Protein 6.3 g/dL (6.3-8.2)
[2018-09-02 20:29] LABS: Anisocytosis Slight; Basophils # (A) 0.1 k/uL (0-0.2); Basophils % (A) 0 %; Eosinophils # (A) 0.2 k/uL (0-0.7); Eosinophils % (A) 2 %; HCT 32.3 % (34.0-46.0); HGB 10.3 gm/dL (11.4-16.0); Lymphocytes # (A) 4.2 k/uL (1.0-4.8); Lymphocytes % (A) 39 %; MCH 29.7 pg (25.0-35.0); MCHC 31.9 g/dL (31.0-37.0); MCV 93.2 fL (80.0-100.0); Monocytes # (A) 0.6 k/uL (0-1.0); Monocytes % (A) 5 %; Neutrophils # (A) 5.5 k/uL (1.3-7.7); Neutrophils % (A) 51 %; Platelet Count 545 k/uL (150-450); RBC 3.46 m/uL (3.80-5.40); RDW 18.5 % (11.5-15.5); WBC 10.7 k/uL (3.8-10.6)
[2018-09-02] MEDS ORDERED: MORPHINE SULFATE 4 MG/ML SYRINGE IVP PRN (21:24)
--- NOTE | 2018-09-02 21:26 | ED ---
Abdominal Pain HPI - General Chief Complaint: Abdominal Pain Stated Complaint: Abd Pain Time Seen by Provider: 09/02/18 19:46 Source: patient, RN notes reviewed, old records reviewed Mode of arrival: EMS Limitations: no limitations - History of Present Illness Initial Comments: This is a 33-year-old female the ER for evaluation she presents today with h istory of Crohn's disease or GI bleed. Having gross blood with clotting in her stool. Patient also having abdominal pain with nausea. No fevers, no history of GI bleed no blood thinners. Patient does have some underlying psychiatric illness. Patient has had multiple medication changes recently, not currently on any GI medications for her Crohn's disease. MD Complaint: abdominal pain, other (Blood in stool) -: days(s) (One week) Location: diffuse Radiation: none Migration to: no migration Severity: mild Severity scale (1-10): 3 Quality: cramping, aching Consistency: intermittent Improves With: nothing Worsens With: nothing Associated Symptoms: nausea, hematochezia - Related Data Home Medications Medication Instructions Recorded Confirmed Sertraline HCl [Zoloft] 200 mg PO DAILY 09/24/13 09/02/18 Ranitidine HCl [Zantac] 150 mg PO BID 12/26/15 09/02/18 Divalproex Sodium [Depakote] 2,000 mg PO BID 04/30/16 09/02/18 QUEtiapine [SEROquel] 500 mg PO HS 04/22/17 09/02/18 Gabapentin [Neurontin] 800 mg PO TID 10/11/17 09/02/18 Ferrous Sulfate [Iron (65 MG 325 mg PO DAILY 01/29/18 09/02/18 Elemental)] Propranolol [Inderal] 40 mg PO TID 01/29/18 09/02/18 Simvastatin [Zocor] 20 mg PO HS 01/29/18 09/02/18 Beclomethasone Dipropionate [Qvar 2 puff INHALATION RT-DAILY 02/07/18 09/02/18 80 mcg] Amitriptyline HCl [Elavil] 50 mg PO DAILY 08/07/18 09/02/18 Black [place] 540 mg PO HS PRN 08/07/18 09/02/18 Levothyroxine Sodium [Synthroid] 137 mcg PO DAILY 08/07/18 09/02/18 Loratadine [Claritin] 10 mg PO DAILY 08/07/18 09/02/18 Montelukast [Singulair] 10 mg PO DAILY 08/07/18 09/02/18 Promethazine [Phenergan] 50 mg PO DAILY PRN 08/07/18 09/02/18 QUEtiapine [SEROquel] 100 mg PO BID 08/07/18 09/02/18 Previous Rx's Medication Instructions Recorded ALPRAZolam [Xanax] 2 mg PO BID 3 Days #5 tab 08/07/18 Lisinopril-Hctz 20-25 mg 1 tab PO DAILY #0 08/21/18 [Zestoretic 20-25] oxyCODONE-APAP 10-325MG [Percocet 1 tab PO TID #0 08/21/18 10-325 mg] Allergies Allergy/AdvReac Type Severity Reaction Status Date / Time dicyclomine [From Bentyl] Allergy Severe Hallucinati Verified 09/02/18 20:14 ons granisetron HCl [From Kytril] Allergy Severe Anaphylaxis Verified 09/02/18 20:14 baclofen Allergy Rash/Hives Verified 09/02/18 20:14 butorphanol tartrate Allergy Rash/Hives Verified 09/02/18 20:14 [From Stadol] ketorolac tromethamine Allergy Rash/Hives Verified 09/02/18 20:14 [From Toradol] meperidine HCl [From Demerol] Allergy Swelling Verified 09/02/18 20:14 methocarbamol [From Robaxin] Allergy Unknown Verified 09/02/18 20:14 pregabalin [From Lyrica] Allergy Unknown Verified 09/02/18 20:14 sulfamethoxazole Allergy Rash/Hives Verified 09/02/18 20:14 [From Bactrim] trimethoprim [From Bactrim] Allergy Rash/Hives Verified 09/02/18 20:14 codeine AdvReac Vomiting & Verified 09/02/18 20:14 Headache methylprednisolone AdvReac Vomiting & Verified 09/02/18 20:14 [From Medrol] Headache Review of Systems ROS Statement: Those systems with pertinent positive or pertinent negative responses have been documented in the HPI. ROS Other: All systems not noted in ROS Statement are negative. Past Medical History Past Medical History: Asthma, Fibromyalgia, GERD/Reflux, Neurologic Disorder, Seizure Disorder, Thyroid Disorder Additional Past Medical History / Comment(s): crohns disease, diverticulosis, ibs, carpal tunnel, anemia, chronic back pain , migraines, pinched nerves, History of Any Multi-Drug Resistant Organisms: None Reported Past Surgical History: Adenoidectomy, Appendectomy, Cholecystectomy, Orthopedic Surgery, Tonsillectomy Additional Past Surgical History / Comment(s): EGD/colonoscopy, right ankle surgery Past Anesthesia/Blood Transfusion Reactions: No Reported Reaction Additional Past Anesthesia/Blood Transfusion Reaction / Comment(s): hallucinations Past Psychological History: Anxiety, Depression Smoking Status: Current every day smoker Past Alcohol Use History: None Reported Past Drug Use History: None Reported - Past Family History Father Family Medical History: Diabetes Mellitus, Hyperlipidemia Mother Family Medical History: Cancer, CVA/TIA, Deep Vein Thrombosis (DVT), Osteoarthritis (OA), Thyroid Disorder Additional Family Medical History / Comment(s): Extensive tattoos throughout body General Exam Limitations: no limitations General appearance: alert, in no apparent distress Head exam: Present: atraumatic, normocephalic, normal inspection Eye exam: Present: normal appearance, PERRL, EOMI. Absent: scleral icterus, conjunctival injection, periorbital swelling ENT exam: Present: normal exam, mucous membranes moist Neck exam: Present: normal inspection. Absent: tenderness, meningismus, lymphadenopathy Respiratory exam: Present: normal lung sounds bilaterally. Absent: respiratory distress, wheezes, rales, rhonchi, stridor Cardiovascular Exam: Present: regular rate, normal rhythm, normal heart sounds. Absent: systolic murmur, diastolic murmur, rubs, gallop, clicks GI/Abdominal exam: Present: soft, normal bowel sounds. Absent: distended, tenderness, guarding, rebound, rigid Extremities exam: Present: normal inspection, full ROM, normal capillary refill. Absent: tenderness, pedal edema, joint swelling, calf tenderness Back exam: Present: normal inspection Neurological exam: Present: alert, oriented X3, CN II-XII intact Psychiatric exam: Present: normal affect, normal mood Skin exam: Present: warm, dry, intact, normal color. Absent: rash Course Vital Signs 09/02/18 09/02/18 19:09 21:58 Temperature 99.1 F 98.8 F Pulse Rate 104 H 86 Respiratory 18 18 Rate Blood Pressure 135/94 117/67 O2 Sat by Pulse 96 98 Oximetry - Reevaluation(s) Reevaluation #1: Medical record is reviewed No bloody bowel movements here in the ER, no episodes of near syncope Medical Decision Making - Medical Decision Making 33 female the ER for evaluation. Patient complaining of positive blood in stool. No abdominal pain. Patient will be admitted for pain control and monitoring of hemoglobin - Lab Data Result diagrams: 09/03/18 10:45 09/03/18 10:45 Lab Results 09/02/18 09/02/18 09/02/18 Range/Units 00:00 19:50 19:50 WBC 10.7 H (3.8-10.6) k/uL RBC 3.46 L (3.80-5.40) m/uL Hgb 10.3 L (11.4-16.0) gm/dL Hct 32.3 L (34.0-46.0) % MCV 93.2 (80.0-100.0) fL MCH 29.7 (25.0-35.0) pg MCHC 31.9 (31.0-37.0) g/dL RDW 18.5 H (11.5-15.5) % Plt Count 545 H (150-450) k/uL Neutrophils % 51 % Lymphocytes % 39 % Monocytes % 5 % Eosinophils % 2 % Basophils % 0 % Neutrophils # 5.5 (1.3-7.7) k/uL Lymphocytes # 4.2 (1.0-4.8) k/uL Monocytes # 0.6 (0-1.0) k/uL Eosinophils # 0.2 (0-0.7) k/uL Basophils # 0.1 (0-0.2) k/uL Anisocytosis Slight Sodium 141 (137-145) mmol/L Potassium 4.1 (3.5-5.1) mmol/L Chloride 111 H (98-107) mmol/L Carbon Dioxide 23 (22-30) mmol/L Anion Gap 7 mmol/L BUN 3 L (7-17) mg/dL Creatinine 0.62 (0.52-1.04) mg/dL Est GFR (CKD-EPI)AfAm >90 (>60 ml/min/1.73 sqM) Est GFR (CKD-EPI)NonAf >90 (>60 ml/min/1.73 sqM) Glucose 114 H (74-99) mg/dL Plasma Lactic Acid Jeremy (0.7-2.0) mmol/L Calcium 8.8 (8.4-10.2) mg/dL Phosphorus 3.9 (2.5-4.5) mg/dL Magnesium 2.0 (1.6-2.3) mg/dL Total Bilirubin 0.1 L (0.2-1.3) mg/dL AST 11 L (14-36) U/L ALT 12 (9-52) U/L Alkaline Phosphatase 116 (38-126) U/L Creatine Kinase 47 (30-135) U/L C-Reactive Protein 10.6 H (<10.0) mg/L Total Protein 6.3 (6.3-8.2) g/dL Albumin 3.3 L (3.5-5.0) g/dL Amylase 97 (30-110) U/L Lipase 79 (23-300) U/L Urine Color Urine Appearance (Clear) Urine pH (5.0-8.0) Ur Specific [place] (1.001-1.035) Urine Protein (Negative) Urine Glucose (UA) (Negative) Urine Ketones (Negative) Urine Blood (Negative) Urine Nitrite (Negative) Urine Bilirubin (Negative) Urine Urobilinogen (<2.0) mg/dL Ur Leukocyte Esterase (Negative) Urine WBC (0-5) /hpf Ur Squamous Epith Cells (0-4) /hpf Amorphous Sediment (None) /hpf Urine Bacteria (None) /hpf Blood Type Blood Type Recheck Antibody Screen Spec Expiration Date 09/02/18 09/02/18 09/02/18 Range/Units 19:50 19:50 19:50 WBC (3.8-10.6) k/uL RBC (3.80-5.40) m/uL Hgb (11.4-16.0) gm/dL Hct (34.0-46.0) % MCV (80.0-100.0) fL MCH (25.0-35.0) pg MCHC (31.0-37.0) g/dL RDW (11.5-15.5) % Plt Count (150-450) k/uL Neutrophils % % Lymphocytes % % Monocytes % % Eosinophils % % Basophils % % Neutrophils # (1.3-7.7) k/uL Lymphocytes # (1.0-4.8) k/uL Monocytes # (0-1.0) k/uL Eosinophils # (0-0.7) k/uL Basophils # (0-0.2) k/uL Anisocytosis Sodium (137-145) mmol/L Potassium (3.5-5.1) mmol/L Chloride (98-107) mmol/L Carbon Dioxide (22-30) mmol/L Anion Gap mmol/L BUN (7-17) mg/dL Creatinine (0.52-1.04) mg/dL Est GFR (CKD-EPI)AfAm (>60 ml/min/1.73 sqM) Est GFR (CKD-EPI)NonAf (>60 ml/min/1.73 sqM) Glucose (74-99) mg/dL Plasma Lactic Acid Jeremy 1.8 (0.7-2.0) mmol/L Calcium (8.4-10.2) mg/dL Phosphorus (2.5-4.5) mg/dL Magnesium (1.6-2.3) mg/dL Total Bilirubin (0.2-1.3) mg/dL AST (14-36) U/L ALT (9-52) U/L Alkaline Phosphatase (38-126) U/L Creatine Kinase (30-135) U/L C-Reactive Protein (<10.0) mg/L Total Protein (6.3-8.2) g/dL Albumin (3.5-5.0) g/dL Amylase (30-110) U/L Lipase (23-300) U/L Urine Color Colorless Urine Appearance Clear (Clear) Urine pH 6.5 (5.0-8.0) Ur Specific [place] 1.003 (1.001-1.035) Urine Protein Negative (Negative) Urine Glucose (UA) Negative (Negative) Urine Ketones Negative (Negative) Urine Blood Negative (Negative) Urine Nitrite Negative (Negative) Urine Bilirubin Negative (Negative) Urine Urobilinogen <2.0 (<2.0) mg/dL Ur Leukocyte Esterase Trace H (Negative) Urine WBC 3 (0-5) /hpf Ur Squamous Epith Cells 4 (0-4) /hpf Amorphous Sediment Rare H (None) /hpf Urine Bacteria Rare H (None) /hpf Blood Type O Negative Blood Type Recheck No Antibody Screen NEGATIVE Spec Expiration Date 09/05/2018 - 1867 - Radiology Data Radiology results: report reviewed (X-ray abdominal series a chest x-rays negative for acute disease), image reviewed Disposition Clinical Impression: Exacerbation of Crohn's disease, Crohns disease, GI bleed Disposition: ADMITTED IP TO THIS HOSP Condition: Fair Is patient prescribed a controlled substance at d/c from ED?: No
--- NOTE | 2018-09-03 00:37 | P.HPIM ---
History of Present Illness H&P Date: 09/02/18 Chief Complaint: GI bleeding and abdominal pain 33-year-old female with history of mild Crohn's disease. Not currently on maintenance medications due to cost Patient presented to the hospital with 1 week history of GI bleeding she reports 1 or 2 episodes daily. She called her GI specialist who recommended that she comes to the ER for further evaluation. Patient also reports diffuse abdominal pain 6 out of 10 in severity at this time however sometimes spikes to 10 out of 10 in severity. Diffuse all over her belly sharp in nature. Not associated with meals not related to activity no relieving or aggravating factor. She gets some comfort with pain medications but no complete relief. Patient otherwise denies any fevers or chills, denies any coughing chest pain shortness of breath changes in her urinary habits. Denies any focal neuro deficits. In the ED she was found to have slight leukocytosis hemoglobin at baseline abdominal and chest x-ray was negative Review of Systems Pertinent positives as noted in HPI. All other systems were reviewed and are negative Past Medical History Past Medical History: Asthma, Fibromyalgia, GERD/Reflux, Neurologic Disorder, Seizure Disorder, Thyroid Disorder Additional Past Medical History / Comment(s): crohns disease, diverticulosis, ibs, carpal tunnel, anemia, chronic back pain , migraines, pinched nerves, History of Any Multi-Drug Resistant Organisms: None Reported Past Surgical History: Adenoidectomy, Appendectomy, Cholecystectomy, Orthopedic Surgery, Tonsillectomy Additional Past Surgical History / Comment(s): EGD/colonoscopy, right ankle surgery Past Anesthesia/Blood Transfusion Reactions: No Reported Reaction Additional Past Anesthesia/Blood Transfusion Reaction / Comment(s): halluci nations Past Psychological History: Anxiety, Depression Additional Psychological History / Comment(s): on medications Smoking Status: Current every day smoker Past Alcohol Use History: None Reported Additional Past Alcohol Use History / Comment(s): has smoked since age 14 down to < half pack per day. Past Drug Use History: None Reported - Past Family History Father Family Medical History: Diabetes Mellitus, Hyperlipidemia Mother Family Medical History: Cancer, CVA/TIA, Deep Vein Thrombosis (DVT), Osteoarthritis (OA), Thyroid Disorder Additional Family Medical History / Comment(s): Extensive tattoos throughout body Medications and Allergies Home Medications Medication Instructions Recorded Confirmed Type Sertraline HCl [Zoloft] 200 mg PO DAILY 09/24/13 09/02/18 History Ranitidine HCl [Zantac] 150 mg PO BID 12/26/15 09/02/18 History Divalproex Sodium [Depakote] 2,000 mg PO BID 04/30/16 09/02/18 History QUEtiapine [SEROquel] 500 mg PO HS 04/22/17 09/02/18 History Gabapentin [Neurontin] 800 mg PO TID 10/11/17 09/02/18 History Ferrous Sulfate [Iron (65 MG 325 mg PO DAILY 01/29/18 09/02/18 History Elemental)] Propranolol [Inderal] 40 mg PO TID 01/29/18 09/02/18 History Simvastatin [Zocor] 20 mg PO HS 01/29/18 09/02/18 History Beclomethasone Dipropionate [Qvar 2 puff INHALATION RT-DAILY 02/07/18 09/02/18 History 80 mcg] ALPRAZolam [Xanax] 2 mg PO BID 3 Days #5 tab 08/07/18 09/02/18 Rx Amitriptyline HCl [Elavil] 50 mg PO DAILY 08/07/18 09/02/18 History Black Cohosh 540 mg PO HS PRN 08/07/18 09/02/18 History Levothyroxine Sodium [Synthroid] 137 mcg PO DAILY 08/07/18 09/02/18 History Loratadine [Claritin] 10 mg PO DAILY 08/07/18 09/02/18 History Montelukast [Singulair] 10 mg PO DAILY 08/07/18 09/02/18 History Promethazine [Phenergan] 50 mg PO DAILY PRN 08/07/18 09/02/18 History QUEtiapine [SEROquel] 100 mg PO BID 08/07/18 09/02/18 History Lisinopril-Hctz 20-25 mg 1 tab PO DAILY #0 08/21/18 09/02/18 Rx [Zestoretic 20-25] oxyCODONE-APAP 10-325MG [Percocet 1 tab PO TID #0 08/21/18 09/02/18 Rx 10-325 mg] Allergies Allergy/AdvReac Type Severity Reaction Status Date / Time dicyclomine [From Bentyl] Allergy Severe Hallucinati Verified 09/02/18 20:14 ons granisetron HCl [From Kytril] Allergy Severe Anaphylaxis Verified 09/02/18 20:14 baclofen Allergy Rash/Hives Verified 09/02/18 20:14 butorphanol tartrate Allergy Rash/Hives Verified 09/02/18 20:14 [From Stadol] ketorolac tromethamine Allergy Rash/Hives Verified 09/02/18 20:14 [From Toradol] meperidine HCl [From Demerol] Allergy Swelling Verified 09/02/18 20:14 methocarbamol [From Robaxin] Allergy Unknown Verified 09/02/18 20:14 pregabalin [From Lyrica] Allergy Unknown Verified 09/02/18 20:14 sulfamethoxazole Allergy Rash/Hives Verified 09/02/18 20:14 [From Bactrim] trimethoprim [From Bactrim] Allergy Rash/Hives Verified 09/02/18 20:14 codeine AdvReac Vomiting & Verified 09/02/18 20:14 Headache methylprednisolone AdvReac Vomiting & Verified 09/02/18 20:14 [From Medrol] Headache Physical Exam Vitals: Vital Signs Temp Pulse Pulse Resp BP BP Pulse Ox 09/02/18 23:00 97.9 F 85 18 141/90 97 09/02/18 21:58 98.8 F 86 18 117/67 98 09/02/18 19:09 99.1 F 104 H 18 135/94 96 Intake and Output 09/02/18 09/02/18 09/03/18 14:59 22:59 06:59 Other: Weight 80.739 kg Constitutional: No acute distress, conversant, pleasant Eyes: Anicteric sclerae, moist conjunctiva, no lid-lag Pupils equal round reactive to light ENMT: NC/AT Oropharynx clear, no erythema, or exudates Neck: Supple, FROM, no masses, or JVD No carotid bruits No thyromegaly Lungs: Clear to auscultation Clear to percussion Normal respiratory effort, no accessory muscle use Cardiovascular: Heart regular in rate and rhythm, No murmurs, gallops, or rubs No peripheral edema Abdominal: Soft Diffuse tenderness to palpation, no guarding, rebound or rigidity Abdomen moving with respiration Normoactive bowel sounds No hepatomegaly, No splenomegaly No palpable mass No abdominal wall hernia noted Skin: Normal temperature, tone, texture, turgor No induration No subcutaneous nodules No rash, lesions No ulcers Extremities: No digital cyanosis No clubbing Pedal pulses intact and symmetrical Radial pulses intact and symmetrical No calf tenderness Psychiatric: Alert and oriented to person, place and time Appropriate affect fair judgment Neuro Muscles Strength 5/5 in all 4 extremities Sensation to light touch grossly present throughout Cranial nerves II-XII grossly intact No focal sensory deficits Lymphatics: no palpable cervical or supraclavicular , or inguinal lymph nodes Results CBC & Chem 7: 09/02/18 19:50 09/02/18 19:50 Labs: Abnormal Lab Results - Last 24 Hours (Table) 09/02/18 09/02/18 09/02/18 Range/Units 19:50 19:50 19:50 WBC 10.7 H (3.8-10.6) k/uL RBC 3.46 L (3.80-5.40) m/uL Hgb 10.3 L (11.4-16.0) gm/dL Hct 32.3 L (34.0-46.0) % RDW 18.5 H (11.5-15.5) % Plt Count 545 H (150-450) k/uL Chloride 111 H (98-107) mmol/L BUN 3 L (7-17) mg/dL Glucose 114 H (74-99) mg/dL Total Bilirubin 0.1 L (0.2-1.3) mg/dL AST 11 L (14-36) U/L Albumin 3.3 L (3.5-5.0) g/dL Ur Leukocyte Esterase Trace H (Negative) Amorphous Sediment Rare H (None) /hpf Urine Bacteria Rare H (None) /hpf Microbiology - Last 24 Hours (Table) 09/02/18 19:50 Urine Culture - Preliminary Urine,Voided Thrombosis Risk Factor Assmnt - Choose All That Apply Any of the Below Risk Factors Present?: No Other Risk Factors: No Other congenital or acquired thrombophilia - If yes, enter type in comment: No Thrombosis Risk Factor Assessment Level: Very Low Risk Assessment and Plan Assessment: 33-year-old female with history of Crohn's disease. Patient admitted as an inpatient with anticipated length of stay more than 48 hours due to one-week history of GI bleeding. Hemoglobin seems to be around her baseline. Patient called her GI office and he recommended that she come to hospital for further evaluation. Plan: Mild Crohn's disease GI bleeding of one week duration Mild anemia currently at baseline IV fluid hydration Monitor hemoglobin closely GI consultation Pain control Check CRP Start patient on IV Flagyl Nothing by mouth PPI Follow up labs in the morning Chronic conditions History of seizures, implanted medications last seizure 9 months ago History of asthma Fibromyalgia Hypothyroid Hypertension Tinea home meds DVT prophylaxis heparin subcu 3 times a day, Crohn's disease is high risk for DVT therefore we'll continue heparin subcu despite concerns for GI bleeding. Especially her current hemoglobin is at baseline Preformed a thorough record review from recent hospitalization unintentional OD Surrogate decision-maker: Patient mother CODE STATUS: Full code Discussed with: Patient, ER, RN Anticipated discharge: 48-[address]: Home A total of 60 minutes was spent on the care of this complex patient more than 50% of the time was spent in counseling and care coordination.
[2018-09-03] MEDS: GABAPENTIN 400 MG CAP PO SCH ×4 (00:42→20:09)
[2018-09-03] MEDS: DIVALPROEX 500 MG TABLET.DR PO SCH ×3 (00:43→20:08)
[2018-09-03] MEDS: HYDROmorphone 1 MG/ML 1 ML SYRINGE IVP PRN ×3 (00:43→14:17)
[2018-09-03] MEDS: FAMOTIDINE 20 MG TAB PO SCH ×3 (00:43→20:08)
[2018-09-03] MEDS ORDERED: PROMETHAZINE 25 MG TAB PO PRN (01:00)
[2018-09-03] MEDS ORDERED: oxyCODONE-APAP 10-325MG 1 EACH TAB PO SCH (01:00)
[2018-09-03] MEDS: QUEtiapine 100 MG TAB PO SCH ×4 (01:18→22:04)
[2018-09-03] MEDS: BUTALB/APAP/CAFF 50-325-40MG TAB PO PRN ×2 (01:18→15:40)
[2018-09-03] MEDS: PROPRANOLOL 40 MG TAB PO SCH ×4 (01:18→20:08)
[2018-09-03] MEDS: metroNIDAZOLE-NS PMX 500 MG in SALINE 1 100ML.BAG IVPB SCH ×3 (01:19→16:11)
[2018-09-03] MEDS: LEVOTHYROXINE 137 MCG TAB PO SCH (05:18)
[2018-09-03] MEDS: ALPRAZolam 1 MG TAB PO PRN ×2 (07:54→20:08)
[2018-09-03] MEDS: PANTOPRAZOLE 40 MG/10 ML VIAL IVP SCH (08:13)
[2018-09-03] MEDS: AMITRIPTYLINE HCL 50 MG TAB PO SCH (08:13)
[2018-09-03] MEDS: FERROUS SULFATE 325 MG TAB PO SCH (08:13)
[2018-09-03] MEDS: LORATADINE 10 MG TAB PO SCH (08:13)
[2018-09-03] MEDS: MONTELUKAST 10 MG TAB PO SCH (08:13)
[2018-09-03] MEDS: HEPARIN SODIUM,PORCINE 5,000 UNIT/ML 1 ML VIAL SQ SCH ×2 (08:14→16:10)
[2018-09-03] MEDS: LISINOPRIL-HCTZ 20-25 MG 1 EACH TAB PO SCH (08:15)
[2018-09-03] MEDS ORDERED: QUEtiapine 100 MG TAB PO SCH ×2 (09:00→21:00)
[2018-09-03] MEDS: IPRATROPIUM-ALBUTEROL 3 ML NEB INHALATION PRN (09:05)
[2018-09-03] MEDS: BUDESONIDE 1 MG/2 ML NEBU INHALATION SCH (09:06)
[2018-09-03] MEDS: SERTRALINE 100 MG TAB PO SCH ×2 (09:19→20:08)
[2018-09-03 11:31] LABS: Anisocytosis Slight; Basophils % (A) 0 %; Eosinophils # (A) 0.2 k/uL (0-0.7); Eosinophils % (A) 2 %; Hypochromasia Slight; Lymphocytes % (A) 49 %; MCH 29.5 pg (25.0-35.0); MCHC 30.4 g/dL (31.0-37.0); Macrocytosis Slight; Monocytes # (A) 0.5 k/uL (0-1.0); Monocytes % (A) 6 %; Neutrophils # (A) 3.3 k/uL (1.3-7.7); Neutrophils % (A) 40 %; Platelet Count 484 k/uL (150-450); RDW 17.8 % (11.5-15.5); WBC 8.1 k/uL (3.8-10.6)
[2018-09-03 11:38] LABS: ALT 19 U/L (9-52); AST 11 U/L (14-36); Albumin 3.1 g/dL (3.5-5.0); Alkaline Phosphatase 101 U/L (38-126); Anion Gap 6 mmol/L; Blood Urea Nitrogen 4 mg/dL (7-17); Calcium 8.6 mg/dL (8.4-10.2); Carbon Dioxide 25 mmol/L (22-30); Chloride 109 mmol/L (98-107); Glucose 81 mg/dL (74-99); Potassium 4.6 mmol/L (3.5-5.1); Sodium 140 mmol/L (137-145); Total Bilirubin 0.2 mg/dL (0.2-1.3); Total Protein 6.1 g/dL (6.3-8.2)
[2018-09-03] MEDS: ONDANSETRON 4 MG/2 ML VIAL IVP PRN ×2 (14:15→20:11)
[2018-09-03] MEDS: NICOTINE 14MG/24HR PATCH TRANSDERM SCH (15:26)
[2018-09-03] MEDS ORDERED: PEG 3350-NA SULF,BICARB,CL/KCL 4,000 ML BOTTLE PO ONE (16:00)
--- NOTE | 2018-09-03 17:25 | P.PN ---
Subjective Progress Note Date: 09/03/18 Principal diagnosis: GI bleed Patient was seen and examined. No acute events overnight. Patient reports multiple episodes of bloody diarrhea. She also reports right-sided abdominal pain, 10 out of 10 in severity, partially relieved with Dilaudid injection. Patient requesting the every 6 be changed to every 3 hours. She denies any nausea or vomiting. No fever or chills. Patient denies shortness of breath or palpitations. Objective - Vital Signs Vital signs: Vital Signs Temp 97.6 F 09/03/18 06:00 Pulse 84 09/03/18 09:23 Resp 18 09/03/18 06:00 BP 108/72 09/03/18 06:00 Pulse Ox 98 09/03/18 06:00 Intake & Output 09/02/18 09/03/18 09/03/18 18:59 06:59 18:59 Intake Total 0 Balance 0 Weight 80.739 kg Intake: Oral 0 Other: # Voids 2 - Exam General: [non toxic], [no distress], [appears at stated age] Derm: [warm], [dry] Head: [atraumatic], [normocephalic], [symmetric] Eyes: [EOMI], [no lid lag], [anicteric sclera] Mouth: [no lip lesion], [mucus membranes moist] Cardiovascular: [S1S2 reg], [no murmur], [positive DP pulse bilateral] Lungs: [CTA bilateral], [no rhonchi, no rales] , [no accessory muscle use] Abdominal: [soft], [generalized tenderness to palpation in all 4 quadrants without rebound], [no guarding], [no appreciable organomegaly] Ext: [no gross muscle atrophy], [no edema], [no contractures] Neuro: [no focal neuro deficits] Psych: [Alert], [oriented], [appropriate affect] - Labs CBC & Chem 7: 09/03/18 10:45 09/03/18 10:45 Labs: Abnormal Lab Results - Last 24 Hours (Table) 09/02/18 09/02/18 09/02/18 Range/Units 00:00 19:50 19:50 WBC 10.7 H (3.8-10.6) k/uL RBC 3.46 L (3.80-5.40) m/uL Hgb 10.3 L (11.4-16.0) gm/dL Hct 32.3 L (34.0-46.0) % MCHC (31.0-37.0) g/dL RDW 18.5 H (11.5-15.5) % Plt Count 545 H (150-450) k/uL Chloride 111 H (98-107) mmol/L BUN 3 L (7-17) mg/dL Glucose 114 H (74-99) mg/dL Total Bilirubin 0.1 L (0.2-1.3) mg/dL AST 11 L (14-36) U/L C-Reactive Protein 10.6 H (<10.0) mg/L Total Protein (6.3-8.2) g/dL Albumin 3.3 L (3.5-5.0) g/dL Ur Leukocyte Esterase (Negative) Amorphous Sediment (None) /hpf Urine Bacteria (None) /hpf 09/02/18 09/03/18 09/03/18 Range/Units 19:50 10:45 10:45 WBC (3.8-10.6) k/uL RBC 3.40 L (3.80-5.40) m/uL Hgb 10.0 L (11.4-16.0) gm/dL Hct 33.0 L (34.0-46.0) % MCHC 30.4 L (31.0-37.0) g/dL RDW 17.8 H (11.5-15.5) % Plt Count 484 H (150-450) k/uL Chloride 109 H (98-107) mmol/L BUN 4 L (7-17) mg/dL Glucose (74-99) mg/dL Total Bilirubin (0.2-1.3) mg/dL AST 11 L (14-36) U/L C-Reactive Protein (<10.0) mg/L Total Protein 6.1 L (6.3-8.2) g/dL Albumin 3.1 L (3.5-5.0) g/dL Ur Leukocyte Esterase Trace H (Negative) Amorphous Sediment Rare H (None) /hpf Urine Bacteria Rare H (None) /hpf Microbiology - Last 24 Hours (Table) 09/02/18 19:50 Urine Culture - Preliminary Urine,Voided Assessment and Plan Assessment: Assessment and Plan 1. GI bleed likely secondary to Crohn's flare 2. History of seizures 3. Asthma 4. Fibromyalgia 5. Hypothyroidism 1. Hemoglobin 10.3-10 during admission. KUB shows nonacute abdomen. Zofran or promethazine as needed for nausea and vomiting. Start Protonix 40 mg IV daily. GoLYTELY prep today for possible procedure tomorrow. Plan: Daily CBC. Plans for scope tomorrow, nothing by mouth after midnight. Continue Flagyl for treatment of possible colitis. Follow stool for occult blood. Follow GI recommendations. 2. Stable. Plans: Continue Depakote. Continue gabapentin. Seizure precautions. 3. Stable. Plans: Continue Pulmicort. DuoNeb as needed for shortness of breath and wheezing. Continue Singulair. 4. Stable. Plans: Continue gabapentin. Continue Elavil. Dilaudid as needed for severe pain. 5. Stable. Plans: Continue Synthroid. Patient with mild Crohn's flare. Possible plans for for colonoscopy tomorrow. Pending GI evaluation.
--- NOTE | 2018-09-03 17:31 | CONS ---
CONSULTATION DATE OF DICTATION: September 03, 2018 Patient is a 33-year-old pleasant white female admitted to hospital with nausea, vomiting, severe abdominal pain, diarrhea with rectal bleeding for the last 3 days duration. The patient states that she was diagnosed with Crohn's disease at age 15. Currently on no medications. She will follow up with Dr. Stiles. The last time she saw him was about 6 months ago. She states that the last 1 week she has been having 1-2 bloody bowel movements every day which are loose to watery in consistency. Severe abdominal pain mostly in the lower abdomen, occasion in the epigastric area associated with some nausea, vomiting. She states that in the past, she was treated with Entocort and Asacol for her Crohn's disease, but for the last 2 years has not been on any medications. She recalls having a colonoscopy about 2 or 3 years ago at [facility], but cannot give me any further details. She reports no fever, chills, or night sweats. PAST MEDICAL HISTORY: Significant for asthma, fibromyalgia and GERD, seizure disorder, hypothyroidism. PAST SURGICAL HISTORY: History of Crohn's disease, carpal tunnel surgery, cholecystectomy, appendectomy, adenoidectomy, tonsillectomy. MEDICATIONS: At home include Zoloft, Zantac, Depakote, Seroquel, Neurontin, Inderal, Zocor, Xanax, Elavil, Synthroid, Singulair, Claritin, Percocet. ALLERGIES: BACTRIM, PREDNISONE, LYRICA, TORADOL, KYTRIL, BENTYL, STADOL. FAMILY HISTORY: Father has diabetes mellitus and hyperlipidemia, mother has DVT and osteoarthritis. SOCIAL HISTORY: Chronic smoker. No alcohol. REVIEW OF SYSTEMS: CARDIOPULMONARY: No chest pain or shortness of breath. GENITOURINARY: No dysuria or hematuria. MUSCULOSKELETAL: Unremarkable. SKIN unremarkable. ENDOCRINE unremarkable. PSYCHIATRIC unremarkable. NEUROLOGY unremarkable. ENT/vision unremarkable. CONSTITUTIONAL: No recent weight loss. No fever, chills, night sweats. PHYSICAL EXAMINATION: She appears comfortable. No apparent distress. VITAL SIGNS: Stable. Blood pressure 130/88, pulse 71, temperature 97.4. HEENT examination: Unremarkable. Conjunctivae pink. Sclerae anicteric. Oral cavity no lesions. NECK: No jugular venous distention or lymph node enlargement. CHEST: Clear to auscultation. HEART: Regular rate and rhythm. ABDOMEN: Soft. Bowel sounds are positive. EXTREMITIES: No pedal edema. SKIN no rashes. NEUROLOGIC: Alert and oriented x3. No focal deficits. LAB DATA: Done at the time of admission to the hospital: WBC 8.1, hemoglobin 10, platelet count 484. Basic metabolic panel is within normal limits. IMPRESSION: This is a lady with history of Crohn's disease diagnosed age 15, presents to the hospital with diffuse abdominal pain associated with nausea, vomiting, and bloody diarrhea of 1 week duration. She has not been on any medication medications for Crohn's. She had a colonoscopy about 2 or 3 years ago, but does not recall any details. RECOMMENDATIONS: 1. Clear liquid diet. 2. Proceed with colonoscopy tomorrow and based on the findings, we will decide if she needs any medication for Crohn's disease. 3. The plan was discussed with the patient. She is agreeable to it. Thank you for this consultation. MMCARMENL / ROSE MARIEN: [phone] /
[2018-09-03] MEDS: HYDROmorphone 0.5 MG/0.5 ML SYRINGE IVP PRN ×2 (18:15→22:30)
[2018-09-03] MEDS: ATORVASTATIN 10 MG TAB PO SCH (20:08)
[2018-09-04] MEDS ORDERED: NA PHOS,M-B/NA PHOS,DI-BA 133 ML ENEMA RECTAL ONE
[2018-09-04] MEDS: metroNIDAZOLE-NS PMX 500 MG in SALINE 1 100ML.BAG IVPB SCH ×3 (00:18→16:06)
[2018-09-04] MEDS: HEPARIN SODIUM,PORCINE 5,000 UNIT/ML 1 ML VIAL SQ SCH ×4 (00:18→23:27)
[2018-09-04] MEDS: HYDROmorphone 0.5 MG/0.5 ML SYRINGE IVP PRN ×6 (06:20→22:19)
[2018-09-04] MEDS: BUDESONIDE 1 MG/2 ML NEBU INHALATION SCH (07:28)
[2018-09-04] MEDS: IPRATROPIUM-ALBUTEROL 3 ML NEB INHALATION PRN (07:28)
[2018-09-04] MEDS: ALPRAZolam 1 MG TAB PO PRN ×2 (08:36→20:10)
[2018-09-04] MEDS: LORATADINE 10 MG TAB PO SCH (08:36)
[2018-09-04] MEDS: FERROUS SULFATE 325 MG TAB PO SCH (08:36)
[2018-09-04] MEDS: MONTELUKAST 10 MG TAB PO SCH (08:36)
[2018-09-04] MEDS: AMITRIPTYLINE HCL 50 MG TAB PO SCH (08:36)
[2018-09-04] MEDS: GABAPENTIN 400 MG CAP PO SCH ×3 (08:36→23:30)
[2018-09-04] MEDS: FAMOTIDINE 20 MG TAB PO SCH ×2 (08:37→23:26)
[2018-09-04] MEDS: DIVALPROEX 500 MG TABLET.DR PO SCH ×2 (08:37→23:27)
[2018-09-04] MEDS: PANTOPRAZOLE 40 MG/10 ML VIAL IVP SCH (08:39)
[2018-09-04] MEDS: PROPRANOLOL 40 MG TAB PO SCH ×3 (08:39→23:40)
[2018-09-04] MEDS: QUEtiapine 100 MG TAB PO SCH ×3 (08:40→23:28)
[2018-09-04] MEDS: NICOTINE 14MG/24HR PATCH TRANSDERM SCH (08:40)
[2018-09-04] MEDS: LISINOPRIL-HCTZ 20-25 MG 1 EACH TAB PO SCH (09:03)
[2018-09-04] MEDS: LEVOTHYROXINE 137 MCG TAB PO SCH (09:03)
[2018-09-04] MEDS: ONDANSETRON 4 MG/2 ML VIAL IVP PRN ×2 (09:22→16:06)
--- NOTE | 2018-09-04 11:35 | PN ---
PROGRESS NOTE DATE OF SERVICE: September 04, 2018 Patient is a 33 -year-old white female with history of Crohn's disease diagnosed at age 15, admitted to the hospital with rectal bleeding for the last 1 week duration. She is complaining of diffuse abdominal pain and blood in the stool and has usually 1 or 2 bowel movements daily. She is scheduled for a colonoscopy today, but she took the prep yesterday but did not have any results with bowel prep and hence the procedure was canceled. She still continues to complain of abdominal pain. Yesterday she had 2 bowel movements with no bleeding. No nausea, vomiting. PHYSICAL EXAMINATION: Appears comfortable no apparent distress. Vital signs stable. Blood pressure 114/56, pulse rate 79, temperature 98.3. HEENT Examination: Unremarkable. Conjunctivae pink. Sclerae anicteric. Oral cavity no lesions. NECK: No JVD. No lymph node enlargement. Chest was clear to auscultation. HEART: Regular rate and rhythm. ABDOMEN: Soft. Bowel sounds are positive. No organomegaly. EXTREMITIES: No pedal edema. SKIN no rashes. NEUROLOGIC: Alert and oriented x3. No focal deficits. LABS: WBC 8.1, hemoglobin 10, platelets of 484. Basic metabolic panel is within normal limits. IMPRESSION: History of Crohn's disease diagnosed at age 15, presents with rectal bleeding of 1 week duration. Presently maintained on no medications for Crohn's disease. No records available from her previous colonoscopy. RECOMMENDATIONS: We will reattempt to do a colonoscopy tomorrow after adequate prep today. The plan was discussed with the patient and she is agreeable to it. Thank you for this consultation. MMODL / ROSE MARIEN: [id number] /
[2018-09-04] MEDS ORDERED: MAGNESIUM CITRATE 296 ML BOTTLE PO ONE (12:00)
--- NOTE | 2018-09-04 13:33 | P.PN ---
Subjective Progress Note Date: 09/04/18 Principal diagnosis: Abdominal pain, hematochezia Patient was seen and examined. No acute events overnight. Patient continues to report severe abdominal pain, 7 out of 10 in severity localized to the right side of her umbilicus. She reports 1 bowel movement overnight even after finishing GoLYTELY prep. Colonoscopy canceled and rescheduled for tomorrow. She denies any nausea or vomiting. No fever or chills. She denies any chest pain, shortness of breath or palpitations. Objective - Vital Signs Vital signs: Vital Signs Temp 98.3 F 09/04/18 06:09 Pulse 80 09/04/18 07:46 Resp 18 09/04/18 06:09 BP 114/76 09/04/18 06:09 Pulse Ox 98 09/04/18 06:09 Intake & Output 09/03/18 09/04/18 09/04/18 18:59 06:59 18:59 Intake Total 1000 Balance 1000 Intake: Oral 1000 Other: # Voids 2 2 # Bowel Movements 2 - Exam General: [non toxic], [no distress], [appears at stated age] Derm: [warm], [dry] Head: [atraumatic], [normocephalic], [symmetric] Eyes: [EOMI], [no lid lag], [anicteric sclera] Mouth: [no lip lesion], [mucus membranes moist] Cardiovascular: [S1S2 reg], [no murmur], [positive DP pulse bilateral] Lungs: [CTA bilateral], [no rhonchi, no rales] , [no accessory muscle use] Abdominal: [soft], [generalized tenderness to palpation in all 4 quadrants without rebound], [no guarding], [no appreciable organomegaly] Ext: [no gross muscle atrophy], [no edema], [no contractures] Neuro: [no focal neuro deficits] Psych: [Alert], [oriented], [appropriate affect] - Labs CBC & Chem 7: 09/03/18 10:45 09/03/18 10:45 Labs: Microbiology - Last 24 Hours (Table) 09/02/18 19:50 Urine Culture - Final Urine,Voided Assessment and Plan Assessment: Assessment and Plan 1. GI bleed likely secondary to Crohn's flare 2. History of seizures 3. Asthma 4. Fibromyalgia 5. Hypothyroidism 1. Hemoglobin 10.3-10 during admission. KUB shows nonacute abdomen. Zofran or promethazine as needed for nausea and vomiting. Start Protonix 40 mg IV daily. GoLYTELY prep today for possible procedure tomorrow. Plan: Daily CBC. Plans for scope tomorrow, nothing by mouth after midnight. Continue Flagyl for treatment of possible colitis. Follow stool for occult blood. Follow GI recommendations. 2. Stable. Plans: Continue Depakote. Continue gabapentin. Seizure precau tions. 3. Stable. Plans: Continue Pulmicort. DuoNeb as needed for shortness of breath and wheezing. Continue Singulair. 4. Stable. Plans: Continue gabapentin. Continue Elavil. Dilaudid as needed for severe pain. 5. Stable. Plans: Continue Synthroid. Patient with mild Crohn's flare. Plans for for colonoscopy tomorrow after adequate prep.
[2018-09-04] MEDS ORDERED: PEG 3350-NA SULF,BICARB,CL/KCL 4,000 ML BOTTLE PO ONE (14:52)
[2018-09-04] MEDS: SERTRALINE 100 MG TAB PO SCH (23:26)
[2018-09-04] MEDS: ATORVASTATIN 10 MG TAB PO SCH (23:31)
[2018-09-05] MEDS: metroNIDAZOLE-NS PMX 500 MG in SALINE 1 100ML.BAG IVPB SCH ×3 (01:48→18:29)
[2018-09-05] MEDS: LEVOTHYROXINE 137 MCG TAB PO SCH (05:51)
[2018-09-05] MEDS: HYDROmorphone 0.5 MG/0.5 ML SYRINGE IVP PRN ×6 (06:07→21:33)
[2018-09-05] MEDS: ALPRAZolam 1 MG TAB PO PRN ×2 (06:25→18:26)
[2018-09-05] MEDS: BUDESONIDE 1 MG/2 ML NEBU INHALATION SCH (06:58)
[2018-09-05] MEDS: DIVALPROEX 500 MG TABLET.DR PO SCH ×3 (08:32→22:30)
[2018-09-05] MEDS: PANTOPRAZOLE 40 MG/10 ML VIAL IVP SCH (08:32)
[2018-09-05] MEDS: NICOTINE 14MG/24HR PATCH TRANSDERM SCH (08:32)
[2018-09-05] MEDS: LISINOPRIL-HCTZ 20-25 MG 1 EACH TAB PO SCH (08:33)
[2018-09-05] MEDS: AMITRIPTYLINE HCL 50 MG TAB PO SCH (08:33)
[2018-09-05] MEDS: GABAPENTIN 400 MG CAP PO SCH ×3 (08:33→21:30)
[2018-09-05] MEDS: PROPRANOLOL 40 MG TAB PO SCH ×3 (08:34→21:30)
[2018-09-05] MEDS: QUEtiapine 100 MG TAB PO SCH ×3 (08:34→22:25)
[2018-09-05] MEDS: BUTALB/APAP/CAFF 50-325-40MG TAB PO PRN (09:21)
[2018-09-05] MEDS: FERROUS SULFATE 325 MG TAB PO SCH (09:22)
[2018-09-05] MEDS: HEPARIN SODIUM,PORCINE 5,000 UNIT/ML 1 ML VIAL SQ SCH ×3 (09:22→23:30)
[2018-09-05] MEDS: LORATADINE 10 MG TAB PO SCH (09:22)
[2018-09-05] MEDS: MONTELUKAST 10 MG TAB PO SCH (09:22)
[2018-09-05] MEDS: FAMOTIDINE 20 MG TAB PO SCH ×2 (09:22→21:29)
--- NOTE | 2018-09-05 09:22 | P.PN ---
Subjective Progress Note Date: 09/05/18 Principal diagnosis: Lower GI bleed Patient was seen and examined. No acute events overnight. Patient continues to complain of abdominal pain, unchanged from yesterday. Took GoLYTELY prep again, multiple bowel movements. Continue to complain of blood in her stool. She denies any chest pain, shortness of breath or palpitations. No nausea or vomiting. No fever or chills. Objective - Vital Signs Vital signs: Vital Signs Temp 98.1 F 09/05/18 05:55 Pulse 83 09/05/18 05:55 Resp 16 09/05/18 05:55 BP 124/86 09/05/18 05:55 Pulse Ox 97 09/05/18 05:55 Intake & Output 09/04/18 09/05/18 09/05/18 18:59 06:59 18:59 Other: # Voids 2 2 # Bowel Movements 2 # Emeses 1 - Exam General: [non toxic], [no distress], [appears at stated age] Derm: [warm], [dry] Head: [atraumatic], [normocephalic], [symmetric] Eyes: [EOMI], [no lid lag], [anicteric sclera] Mouth: [no lip lesion], [mucus membranes moist] Cardiovascular: [S1S2 reg], [no murmur], [positive DP pulse bilateral] Lungs: [CTA bilateral], [no rhonchi, no rales] , [no accessory muscle use] Abdominal: [soft], [generalized tenderness to palpation in all 4 quadrants without rebound], [no guarding], [no appreciable organomegaly] Ext: [no gross muscle atrophy], [no edema], [no contractures] Neuro: [no focal neuro deficits] Psych: [Alert], [oriented], [appropriate affect] - Labs CBC & Chem 7: 09/03/18 10:45 09/03/18 10:45 Assessment and Plan Assessment: Assessment and Plan 1. GI bleed likely secondary to Crohn's flare 2. History of seizures 3. Asthma 4. Fibromyalgia 5. Hypothyroidism 1. Hemoglobin 10.3-10 during admission. KUB shows nonacute abdomen. Zofran or promethazine as needed for nausea and vomiting. Start Protonix 40 mg IV daily. GoLYTELY prep today for possible procedure tomorrow. Plan: Daily CBC. Plans for scope today. Continue Flagyl for treatment of possible colitis. Follow stool for occult blood. Follow GI recommendations. 2. Stable. Plans: Continue Depakote. Continue gabapentin. Seizure precautions. 3. Stable. Plans: Continue Pulmicort. DuoNeb as needed for shortness of breath and wheezing. Continue Singulair. 4. Stable. Plans: Continue gabapentin. Continue Elavil. Dilaudid as needed for severe pain. 5. Stable. Plans: Continue Synthroid. Patient with mild Crohn's flare. Plans for for colonoscopy today. Advance diet after procedure. Likely discharge tomorrow.
[2018-09-05 09:48] LABS: Anisocytosis Slight; Basophils % (A) 1 %; Eosinophils # (A) 0.2 k/uL (0-0.7); Eosinophils % (A) 3 %; Hypochromasia Slight; Lymphocytes # (A) 2.7 k/uL (1.0-4.8); Lymphocytes % (A) 47 %; MCH 29.4 pg (25.0-35.0); MCHC 31.1 g/dL (31.0-37.0); MCV 94.4 fL (80.0-100.0); Macrocytosis Slight; Mean Platelet Volume 7.3; Monocytes # (A) 0.4 k/uL (0-1.0); Monocytes % (A) 7 %; Neutrophils # (A) 2.3 k/uL (1.3-7.7); Neutrophils % (A) 40 %; Platelet Count 347 k/uL (150-450); RDW 18.2 % (11.5-15.5); WBC 5.8 k/uL (3.8-10.6)
[2018-09-05 10:05] LABS: Anion Gap 5 mmol/L; Blood Urea Nitrogen 5 mg/dL (7-17); Calcium 8.3 mg/dL (8.4-10.2); Carbon Dioxide 26 mmol/L (22-30); Chloride 108 mmol/L (98-107); Glucose 89 mg/dL (74-99); Potassium 4.1 mmol/L (3.5-5.1); Sodium 139 mmol/L (137-145)
--- NOTE | 2018-09-05 10:56 | CDI ---
Documentation Clarification Form Date: 09/05/2018 10:47:01 AM From: Jenny Gunter RN, CCDS Admit Date: 09/02/2018 9:25:00 PM Patient Name: Stacey Mistry Visit Number: [id number] ATTENTION: The Clinical Documentation Specialists (CDI) and [facility] Coding Staff appreciate your assistance in clarifying documentation. Please respond to the clarification below the line at the bottom and electronically sign. The CDI & [facility] Coding staff will review the response and follow-up if needed. Please note: Queries are made part of the Legal Health Record. If you have any questions, please contact the author of this message via ITS. Dr. Stefan Alvarez A diagnosis of anemia lacks specificity to accurately reflect your patients severity of condition and clarification is needed. History/Risk Factors: Anemia, Chron's disease, Asthma, fibromyalgia Clinical indicators: 09/02 H&P: "Mild anemia currently at baseline." Hemoglobin: 10.3/10 Hematocrit: 32.3/33/32 Treatment: Am Daily Lab Monitoring In order to capture the severity of condition, please clarify the type of anemia and etiology if known: Acute on chronic blood loss anemia Chronic blood loss anemia Iron deficiency anemia Nutritional anemia Anemia of chronic disease Unable to determine Other, please specify (Last Revision: January 2017) Anemia, likely due to chronic blood loss. MTDD
[2018-09-05] MEDS ORDERED: PROPOFOL 10 MG/ML 20 ML VIAL IV ONE (13:35)
[2018-09-05] MEDS ORDERED: IV FLUID CONTINUATION 700 ML IV ONE (13:41)
--- NOTE | 2018-09-05 13:58 | P.PCN ---
Date of Procedure: 09/05/18 Procedure(s) Performed: BRIEF HISTORY: Patient is a 33-year-old pleasant white female, admitted to the hospital with rectal bleeding and diarrhea of undetermined duration. She states that she was diagnosed with Crohn's disease at age 15 but has not been on any medications for several years. Because of the diarrhea and rectal bleeding she is scheduled for an elective colonoscopy PROCEDURE PERFORMED: Colonoscopy with biopsy. PREOPERATIVE DIAGNOSIS: Diarrhea and rectal bleeding of 2 weeks duration prior history of Crohn's disease diagnosed at age 15. IV sedation per Anesthesia. PROCEDURE: After informed consent was obtained, the patient, was brought into the endoscopy unit. IV sedation was administered by Anesthesia under continuous monitoring. Digital rectal examination was normal. Initially the Olympus CF-160 flexible video colonoscope was then inserted in the rectum, gradually advanced into the cecum without any difficulty. Careful examination was performed as the scope was gradually being withdrawn. Ileocecal valve and the appendiceal orifice were visualized and appeared normal. Prep was excellent. Mucosa of the cecum, ascending colon, transverse colon, descending colon, sigmoid colon, and rectum appeared normal. And biopsies were done from the terminal ileum as well as from the ascending colon. Retroflexion was performed in the rectum and small internal hemorrhoids were seen. The patient tolerated the procedure well. IMPRESSION: Normal-appearing colon from rectum to cecum and terminal ileum with no evidence of colitis or colorectal neoplasia Small internal hemorrhoids. RECOMMENDATIONS: Findings of this examination were discussed with the patient. Diet will be advanced as tolerated and she can be discharged home for outpatient follow-up in 2 weeks.
[2018-09-05] MEDS: ONDANSETRON 4 MG/2 ML VIAL IVP PRN (19:23)
[2018-09-05] MEDS: ATORVASTATIN 10 MG TAB PO SCH (21:29)
[2018-09-05] MEDS: SERTRALINE 100 MG TAB PO SCH (21:29)
[2018-09-05 21:47] VITALS: RESP 18; TEMP 98.2
[2018-09-06] MEDS: metroNIDAZOLE-NS PMX 500 MG in SALINE 1 100ML.BAG IVPB SCH ×2 (00:35→07:53)
[2018-09-06] MEDS: HYDROmorphone 0.5 MG/0.5 ML SYRINGE IVP PRN ×3 (02:54→09:17)
[2018-09-06 05:24] VITALS: BP 91/57; PULSE 78
[2018-09-06] MEDS: BUDESONIDE 1 MG/2 ML NEBU INHALATION SCH (07:10)
[2018-09-06] MEDS: NICOTINE 14MG/24HR PATCH TRANSDERM SCH (07:42)
[2018-09-06] MEDS: PANTOPRAZOLE 40 MG/10 ML VIAL IVP SCH (07:42)
[2018-09-06] MEDS: DIVALPROEX 500 MG TABLET.DR PO SCH (07:42)
--- NOTE | 2018-09-06 07:42 | P.DS ---
Providers Date of admission: 09/02/18 21:25 Expected date of discharge: 09/06/18 Attending physician: Keith Treviño MD Consults: 09/02/18 21:24 Consult Physician Routine Consulting Provider: Ferny Stiles Consult Reason/Comments: crohns Do you want consulting provider notified?: Yes Primary care physician: [facility] Course: 33-year-old female with history of mild Crohn's disease. Not currently on maintenance medications due to cost Patient presented to the hospital with 1 week history of GI bleeding she reports 1 or 2 episodes daily. She called her GI specialist who recommended that she comes to the ER for further evaluation. Patient also reports diffuse abdominal pain 6 out of 10 in severity at this time however sometimes spikes to 10 out of 10 in severity. Diffuse all over her belly sharp in nature. Not associated with meals not related to activity no relieving or aggravating factor. She gets some comfort with pain medications but no complete relief. Patient otherwise denies any fevers or chills, denies any coughing chest pain shortness of breath changes in her urinary habits. Denies any focal neuro deficits. In the ED she was found to have slight leukocytosis hemoglobin at baseline abdominal and chest x-ray was negative. With regard to her GI bleed, her hemoglobin maintained around 10 during her admission. KUB showed nonacute abdomen. Patient was given Zofran as needed for nausea and vomiting. She was started on Protonix IV. Patient underwent GoLYTELY prep for colonoscopy. Flagyl was added by mouth for treatment of possible colitis. Otherwise, her home medications was resumed. Colonoscopy was unrevealing, showed internal hemorrhoids with no signs of colitis. Patient was seen and examined. No acute events overnight. General: [non toxic], [no distress], [appears at stated age] Derm: [warm], [dry] Head: [atraumatic], [normocephalic], [symmetric] Eyes: [EOMI], [no lid lag], [anicteric sclera] Mouth: [no lip lesion], [mucus membranes moist] Cardiovascular: [S1S2 reg], [no murmur], [positive DP pulse bilateral] Lungs: [CTA bilateral], [no rhonchi, no rales] , [no accessory muscle use] Abdominal: [soft], [generalized tenderness to palpation in all 4 quadrants without rebound], [no guarding], [no appreciable organomegaly] Ext: [no gross muscle atrophy], [no edema], [no contractures] Neuro: [no focal neuro deficits] Psych: [Alert], [oriented], [appropriate affect] Assessment and Plan 1. GI bleed likely secondary to Crohn's flare 2. History of seizures 3. Asthma 4. Fibromyalgia 5. Hypothyroidism 1. Hemoglobin 10.3-10 during admission. KUB shows nonacute abdomen. Zofran or promethazine as needed for nausea and vomiting. Start Protonix 40 mg IV daily. GoLYTELY prep today for possible procedure tomorrow. Plan: Daily CBC. Colonoscopy shows internal hemorrhoids and no signs of colitis. DC Flagyl. Follow stool for occult blood. Follow GI recommendations. 2. Stable. Plans: Continue Depakote. Continue gabapentin. Seizure precautions. 3. Stable. Plans: Continue Pulmicort. DuoNeb as needed for shortness of breath and wheezing. Continue Singulair. 4. Stable. Plans: Continue gabapentin. Continue Elavil. Dilaudid as needed for severe pain. 5. Stable. Plans: Continue Synthroid. Patient with mild Crohn's flare. Will discharge today. Pertinent Studies: KUB Procedures: Colonoscopy Patient Condition at Discharge: Fair Plan - Discharge Summary Discharge Rx Participant: No New Discharge Prescriptions: Continue Sertraline HCl [Zoloft] 200 mg PO DAILY Ranitidine HCl [Zantac] 150 mg PO BID Divalproex Sodium [Depakote] 2,000 mg PO BID QUEtiapine [SEROquel] 500 mg PO HS Gabapentin [Neurontin] 800 mg PO TID Ferrous Sulfate [Iron (65 MG Elemental)] 325 mg PO DAILY Simvastatin [Zocor] 20 mg PO HS Propranolol [Inderal] 40 mg PO TID Beclomethasone Dipropionate [Qvar 80 mcg] 2 puff INHALATION RT-DAILY Promethazine [Phenergan] 50 mg PO DAILY PRN PRN Reason: Nausea And Vomiting Montelukast [Singulair] 10 mg PO DAILY Loratadine [Claritin] 10 mg PO DAILY QUEtiapine [SEROquel] 100 mg PO BID Levothyroxine Sodium [Synthroid] 137 mcg PO DAILY Amitriptyline HCl [Elavil] 50 mg PO DAILY oxyCODONE-APAP 10-325MG [Percocet 10-325 mg] 1 tab PO TID #0 Lisinopril-Hctz 20-25 mg [Zestoretic 20-25] 1 tab PO DAILY #0 ALPRAZolam [Xanax] 2 mg PO BID 3 Days #6 tab Discontinued Black Cohosh 540 mg PO HS PRN PRN Reason: NIGHT SWEATS Discharge Medication List Sertraline HCl [Zoloft] 200 mg PO DAILY 09/24/13 [History] Ranitidine HCl [Zantac] 150 mg PO BID 12/26/15 [History] Divalproex Sodium [Depakote] 2,000 mg PO BID 04/30/16 [History] QUEtiapine [SEROquel] 500 mg PO HS 04/22/17 [History] Gabapentin [Neurontin] 800 mg PO TID 10/11/17 [History] Ferrous Sulfate [Iron (65 MG Elemental)] 325 mg PO DAILY 01/29/18 [History] Propranolol [Inderal] 40 mg PO TID 01/29/18 [History] Simvastatin [Zocor] 20 mg PO HS 01/29/18 [History] Beclomethasone Dipropionate [Qvar 80 mcg] 2 puff INHALATION RT-DAILY 02/07/18 [History] Amitriptyline HCl [Elavil] 50 mg PO DAILY 08/07/18 [History] Levothyroxine Sodium [Synthroid] 137 mcg PO DAILY 08/07/18 [History] Loratadine [Claritin] 10 mg PO DAILY 08/07/18 [History] Montelukast [Singulair] 10 mg PO DAILY 08/07/18 [History] Promethazine [Phenergan] 50 mg PO DAILY PRN 08/07/18 [History] QUEtiapine [SEROquel] 100 mg PO BID 08/07/18 [History] Lisinopril-Hctz 20-25 mg [Zestoretic 20-25] 1 tab PO DAILY #0 08/21/18 [Rx] oxyCODONE-APAP 10-325MG [Percocet 10-325 mg] 1 tab PO TID #0 08/21/18 [Rx] ALPRAZolam [Xanax] 2 mg PO BID 3 Days #6 tab 09/06/18 [Rx] Follow up Appointment(s)/Referral(s): Joan Meeks MD [Primary Care Provider] - 1-2 days Ferny Stiles MD [STAFF PHYSICIAN] - 1 Week Ambulatory/Diagnostic Orders: Complete Blood Count w/diff [LAB.AMB] Time Frame: 3 Days, Location: None Selected Activity/Diet/Wound Care/Special Instructions: Diet: Regular Follow-up with PCP within 1-2 days of discharge. Follow-up with GI within 1 week of discharge. Discharge Disposition: HOME SELF-CARE
[2018-09-06] MEDS: GABAPENTIN 400 MG CAP PO SCH (07:43)
[2018-09-06] MEDS: LORATADINE 10 MG TAB PO SCH (07:43)
[2018-09-06] MEDS: MONTELUKAST 10 MG TAB PO SCH (07:43)
[2018-09-06] MEDS: AMITRIPTYLINE HCL 50 MG TAB PO SCH (07:43)
[2018-09-06] MEDS: ALPRAZolam 1 MG TAB PO PRN (07:43)
[2018-09-06] MEDS: FAMOTIDINE 20 MG TAB PO SCH (07:43)
[2018-09-06] MEDS: LISINOPRIL-HCTZ 20-25 MG 1 EACH TAB PO SCH (07:44)
[2018-09-06] MEDS: LEVOTHYROXINE 137 MCG TAB PO SCH (07:44)
[2018-09-06] MEDS: PROPRANOLOL 40 MG TAB PO SCH (07:45)
[2018-09-06] MEDS: QUEtiapine 100 MG TAB PO SCH (07:45)
[2018-09-06] MEDS: FERROUS SULFATE 325 MG TAB PO SCH (07:46)
[2018-09-06] MEDS: HEPARIN SODIUM,PORCINE 5,000 UNIT/ML 1 ML VIAL SQ SCH (07:47)
[2018-09-06] MEDS: ONDANSETRON 4 MG/2 ML VIAL IVP PRN (08:34)
== END 2018-09-06 09:47 | disposition home or self-care (01) | DRG 387 ==
LOC: EC 19:03 → OBSVTOIN 21:25 → 4MS4W 21:25
PROVIDERS: ADMIT Internal Medicine; ATTEND Internal Medicine
PROC: 0DBB8ZX Excision of Ileum, Via Natural or Artificial Opening Endoscopic, Diagnostic (ICD-10-PCS; 2018-09-05)
PROC: 0DBK8ZX Excision of Ascending Colon, Via Natural or Artificial Opening Endoscopic, Diagnostic (ICD-10-PCS; principal; 2018-09-05 08:10)
DX: K50.911 Crohn's disease, unspecified, with rectal bleeding (principal); B35.9 Dermatophytosis, unspecified; D50.0 Iron deficiency anemia secondary to blood loss (chronic); E03.9 Hypothyroidism, unspecified; F17.210 Nicotine dependence, cigarettes, uncomplicated; F32.9 Major depressive disorder, single episode, unspecified; F41.9 Anxiety disorder, unspecified; G40.909 Epilepsy, unspecified, not intractable, without status epilepticus; I10 Essential (primary) hypertension; J45.909 Unspecified asthma, uncomplicated; K21.9 Gastro-esophageal reflux disease without esophagitis; K64.8 Other hemorrhoids; M79.7 Fibromyalgia; Z79.890 Hormone replacement therapy; Z79.899 Other long term (current) drug therapy; Z83.3 Family history of diabetes mellitus; Z88.2 Allergy status to sulfonamides; Z88.8 Allergy status to other drugs, medicaments and biological substances; G89.29 Other chronic pain; M54.9 Dorsalgia, unspecified; G43.909 Migraine, unspecified, not intractable, without status migrainosus; Z90.49 Acquired absence of other specified parts of digestive tract; Z82.3 Family history of stroke; Z82.61 Family history of arthritis; Z83.2 Family history of diseases of the blood and blood-forming organs and certain disorders involving the immune mechanism; Z82.49 Family history of ischemic heart disease and other diseases of the circulatory system; K57.90 Diverticulosis of intestine, part unspecified, without perforation or abscess without bleeding
CPT/HCPCS: 36415; 45380; 74022; 80048; 80053; 81001; 82150; 82550; 83605; 83690; 83735; 84100; 84703; 85025; 86140; 86850; 86900; 86901; 87086; 88305; 94640; 96361; 96374; 96375; 99285

== ENCOUNTER 2018-09-20 11:02 | Observation (INO) | payer OTHER ==
[2018-09-20] MEDS ORDERED: SODIUM CHLORIDE 0.9% 1,000 ML IV STA (11:08)
[2018-09-20 11:30] LABS: Appearance,Urine Clear (Clear); Bilirubin,Urine Negative (Negative); Blood,Urine Negative (Negative); Color,Urine Light Yellow; Glucose,Urine (UA) Negative (Negative); Ketones,Urine Negative (Negative); Leukocyte Esterase,Urine Negative (Negative); Nitrite,Urine Negative (Negative); PH, Urine 7.5 (5.0-8.0); Protein,Urine Negative (Negative); Specific Gravity,Urine 1.005 (1.001-1.035); Urobilinogen,Urine <2.0 mg/dL (<2.0)
[2018-09-20 11:33] LABS: Anisocytosis Slight; Basophils % (A) 0 %; Eosinophils # (A) 0.4 k/uL (0-0.7); Eosinophils % (A) 5 %; HCT 37.6 % (34.0-46.0); HGB 11.7 gm/dL (11.4-16.0); Hypochromasia Slight; Lymphocytes # (A) 3.2 k/uL (1.0-4.8); Lymphocytes % (A) 42 %; MCH 30.5 pg (25.0-35.0); MCHC 31.1 g/dL (31.0-37.0); MCV 98.1 fL (80.0-100.0); Macrocytosis Slight; Mean Platelet Volume 7.5; Monocytes # (A) 0.6 k/uL (0-1.0); Monocytes % (A) 7 %; Neutrophils # (A) 3.3 k/uL (1.3-7.7); Neutrophils % (A) 44 %; Platelet Count 253 k/uL (150-450); RBC 3.83 m/uL (3.80-5.40); RDW 18.9 % (11.5-15.5); WBC 7.7 k/uL (3.8-10.6)
--- NOTE | 2018-09-20 11:37 | XR ---
EXAMINATION TYPE: XR chest 1V portable DATE OF EXAM: 09/20/2018 COMPARISON: 09/02/2018 HISTORY: Pain TECHNIQUE: Single frontal view of the chest is obtained. FINDINGS: There is no focal air space opacity, pleural effusion, or pneumothorax seen. The cardiac silhouette size is within normal limits. The osseous structures are intact. IMPRESSION: No acute process.
[2018-09-20 11:42] LABS: Amphetamine Screen,Urine Not Detected (NotDetected); Barbiturate Screen,Urine Detected (NotDetected); Benzodiazepines Screen,Urine Detected (NotDetected); Cocaine Screen,Urine Not Detected (NotDetected); Methadone Screen, Urine Not Detected (NotDetected); Opiate Screen,Urine Not Detected (NotDetected); Oxycodone Screen, Urine Detected (NotDetected); Phencyclidine Screen,Urine Not Detected (NotDetected); Tricyclic Antidepressant,Urine Detected (NotDetected); Urn Cannabinoid Scrn Not Detected (NotDetected); VBG PH 7.38 (7.31-7.41)
[2018-09-20] MEDS ORDERED: ACETYLCYSTEINE IV ONE (11:47)
[2018-09-20] MEDS ORDERED: WATER IV ONE (11:47)
[2018-09-20] MEDS ORDERED: DEXTROSE 5% IV ONE (11:47)
[2018-09-20 11:50] LABS: Prothrombin Time 10.5 sec (9.0-12.0)
[2018-09-20 11:55] LABS: ALT <6 U/L (9-52); AST 11 U/L (14-36); Acetaminophen <10.0 ug/mL; African American GFR (CKD) >90 (>60 ml/min/1.73 sqM); Albumin 3.5 g/dL (3.5-5.0); Alcohol <10 mg/dL; Alkaline Phosphatase 125 U/L (38-126); Anion Gap 8 mmol/L; Blood Urea Nitrogen 8 mg/dL (7-17); Calcium 8.7 mg/dL (8.4-10.2); Carbon Dioxide 20 mmol/L (22-30); Chloride 114 mmol/L (98-107); Creatine Kinase 39 U/L (30-135); Glucose 127 mg/dL (74-99); Lipase 65 U/L (23-300); Magnesium 1.7 mg/dL (1.6-2.3); Potassium 3.9 mmol/L (3.5-5.1); Salicylate <1.0 mg/dL; Sodium 142 mmol/L (137-145); Total Bilirubin 0.2 mg/dL (0.2-1.3); Total Protein 6.8 g/dL (6.3-8.2)
[2018-09-20] MEDS ORDERED: ACETYLCYSTEINE IV 12,000 MG in DEXTROSE 5% IN WATER 200 ML IV ONE ×2 (11:56)
--- NOTE | 2018-09-20 12:01 | ED ---
Overdose HPI - General Chief Complaint: Overdose Stated Complaint: Overdose Time Seen by Provider: 09/20/18 11:02 Source: EMS, RN notes reviewed Mode of arrival: EMS Limitations: altered mental status - History of Present Illness Initial Comments: This is a 33-year-old female with a prior history of depression and suicide attempts who is brought in by EMS today because of a suspected overdose of her Fioricet. There is between 15 and 30 pills missing from a bottle when she had. She was last seen in her usual state of health last evening today she was found to be minimally responsive signs of any trauma no fevers chills sweats nausea or vomiting. The patient would not or could not say what her intent was. No other modifying factors MD Complaint: intentional overdose - Related Data Home Medications Medication Instructions Recorded Confirmed Sertraline HCl [Zoloft] 200 mg PO DAILY 09/24/13 09/20/18 Ranitidine HCl [Zantac] 150 mg PO BID 12/26/15 09/20/18 Divalproex Sodium [Depakote] 2,000 mg PO BID 04/30/16 09/20/18 QUEtiapine [SEROquel] 500 mg PO HS 04/22/17 09/20/18 Gabapentin [Neurontin] 800 mg PO TID 10/11/17 09/20/18 Ferrous Sulfate [Iron (65 MG 325 mg PO DAILY 01/29/18 09/20/18 Elemental)] Propranolol [Inderal] 40 mg PO TID 01/29/18 09/20/18 Simvastatin [Zocor] 20 mg PO HS 01/29/18 09/20/18 Beclomethasone Dipropionate [Qvar 2 puff INHALATION RT-DAILY 02/07/18 09/20/18 80 mcg] Amitriptyline HCl [Elavil] 50 mg PO DAILY 08/07/18 09/20/18 Levothyroxine Sodium [Synthroid] 137 mcg PO DAILY 08/07/18 09/20/18 Loratadine [Claritin] 10 mg PO DAILY 08/07/18 09/20/18 Montelukast [Singulair] 10 mg PO DAILY 08/07/18 09/20/18 Promethazine [Phenergan] 50 mg PO DAILY PRN 08/07/18 09/20/18 QUEtiapine [SEROquel] 100 mg PO BID 08/07/18 09/20/18 Previous Rx's Medication Instructions Recorded Lisinopril-Hctz 20-25 mg 1 tab PO DAILY #0 08/21/18 [Zestoretic 20-25] oxyCODONE-APAP 10-325MG [Percocet 1 tab PO TID #0 08/21/18 10-325 mg] ALPRAZolam [Xanax] 2 mg PO BID 3 Days #6 tab 09/06/18 Allergies Allergy/AdvReac Type Severity Reaction Status Date / Time dicyclomine [From Bentyl] Allergy Severe Hallucinati Verified 09/20/18 12:28 ons granisetron HCl [From Kytril] Allergy Severe Anaphylaxis Verified 09/20/18 12:28 baclofen Allergy Rash/Hives Verified 09/20/18 12:28 butorphanol tartrate Allergy Rash/Hives Verified 09/20/18 12:28 [From Stadol] ketorolac tromethamine Allergy Rash/Hives Verified 09/20/18 12:28 [From Toradol] meperidine HCl [From Demerol] Allergy Swelling Verified 09/20/18 12:28 methocarbamol [From Robaxin] Allergy Unknown Verified 09/20/18 12:28 pregabalin [From Lyrica] Allergy Unknown Verified 09/20/18 12:28 sulfamethoxazole Allergy Rash/Hives Verified 09/20/18 12:28 [From Bactrim] trimethoprim [From Bactrim] Allergy Rash/Hives Verified 09/20/18 12:28 codeine AdvReac Vomiting & Verified 09/20/18 12:28 Headache methylprednisolone AdvReac Vomiting & Verified 09/20/18 12:28 [From Medrol] Headache Review of Systems ROS Statement: Those systems with pertinent positive or pertinent negative responses have been documented in the HPI. ROS Other: All systems not noted in ROS Statement are negative. Limitations: ROS unobtainable due to patients medical condition Past Medical History Past Medical History: Asthma, Fibromyalgia, GERD/Reflux, Neurologic Disorder, Seizure Disorder, Thyroid Disorder Additional Past Medical History / Comment(s): crohns disease, diverticulosis, ibs, carpal tunnel, anemia, chronic back pain , migraines, pinched nerves, History of Any Multi-Drug Resistant Organisms: None Reported Past Surgical History: Adenoidectomy, Appendectomy, Cholecystectomy, Orthopedic Surgery, Tonsillectomy Additional Past Surgical History / Comment(s): EGD/colonoscopy, right ankle surgery Past Anesthesia/Blood Transfusion Reactions: No Reported Reaction Additional Past Anesthesia/Blood Transfusion Reaction / Comment(s): hallucinations Past Psychological History: Anxiety, Depression Smoking Status: Current every day smoker Past Alcohol Use History: None Reported Past Drug Use History: None Reported - Past Family History Father Family Medical History: Diabetes Mellitus, Hyperlipidemia Mother Family Medical History: Cancer, CVA/TIA, Deep Vein Thrombosis (DVT), Osteoarthritis (OA), Thyroid Disorder Additional Family Medical History / Comment(s): Extensive tattoos throughout body General Exam - General Exam Comments Initial Comments: This is a well-developed well-nourished awake but lethargic female Limitations: altered mental status General appearance: alert, in no apparent distress, lethargic Head exam: Present: atraumatic, normocephalic, normal inspection Eye exam: Present: PERRL, EOMI, other (Pupils are markedly dilated bilaterally). Absent: scleral icterus, conjunctival injection, periorbital swelling ENT exam: Present: normal exam, mucous membranes moist Neck exam: Present: normal inspection, full ROM, other (No stridor JVD or bruits). Absent: tenderness, meningismus, lymphadenopathy Respiratory exam: Present: normal lung sounds bilaterally. Absent: respiratory distress, wheezes, rales, rhonchi, stridor Cardiovascular Exam: Present: regular rate, normal rhythm, normal heart sounds. Absent: systolic murmur, diastolic murmur, rubs, gallop, clicks GI/Abdominal exam: Present: soft, normal bowel sounds. Absent: distended, tenderness, guarding, rebound, rigid Extremities exam: Present: normal inspection, full ROM, normal capillary refill. Absent: tenderness, pedal edema, joint swelling, calf tenderness Back exam: Present: normal inspection Neurological exam: Present: alert, altered, CN II-XII intact Psychiatric exam: Present: other (Unable to fully evaluate at this time) Skin exam: Present: warm, dry, intact, normal color. Absent: rash Course Vital Signs 09/20/18 09/20/18 09/20/18 11:03 11:06 12:00 Temperature 98.7 F Pulse Rate 92 88 Respiratory 18 18 18 Rate Blood Pressure 115/80 115/80 112/85 O2 Sat by Pulse 97 97 99 Oximetry 09/20/18 13:00 Temperature Pulse Rate 79 Respiratory 18 Rate Blood Pressure 101/64 O2 Sat by Pulse 96 Oximetry - Reevaluation(s) Reevaluation #1: 09/20/18 15:24 I did reevaluate the patient multiple occasions she is from most part maintained her blood pressure she did have one episode that appeared be vagal in nature however her blood pressures been in the 120 to 1:30 systolic range. I did discuss case with Dr. Arango who did come the emergency department see the patient also with Dr. Johnson and Dr. Palma. Medical Decision Making - Lab Data Result diagrams: 09/20/18 11:12 09/20/18 11:12 Lab Results 09/20/18 09/20/18 09/20/18 Range/Units 11:12 11:12 11:12 WBC 7.7 (3.8-10.6) k/uL RBC 3.83 (3.80-5.40) m/uL Hgb 11.7 (11.4-16.0) gm/dL Hct 37.6 (34.0-46.0) % MCV 98.1 (80.0-100.0) fL MCH 30.5 (25.0-35.0) pg MCHC 31.1 (31.0-37.0) g/dL RDW 18.9 H (11.5-15.5) % Plt Count 253 (150-450) k/uL Neutrophils % 44 % Lymphocytes % 42 % Monocytes % 7 % Eosinophils % 5 % Basophils % 0 % Neutrophils # 3.3 (1.3-7.7) k/uL Lymphocytes # 3.2 (1.0-4.8) k/uL Monocytes # 0.6 (0-1.0) k/uL Eosinophils # 0.4 (0-0.7) k/uL Basophils # 0.0 (0-0.2) k/uL Hypochromasia Slight Anisocytosis Slight Macrocytosis Slight PT (9.0-12.0) sec INR (<1.2) VBG pH (7.31-7.41) VBG pCO2 (37-51) mmHg VBG HCO3 (24-28) mmol/L Sodium 142 (137-145) mmol/L Potassium 3.9 (3.5-5.1) mmol/L Chloride 114 H (98-107) mmol/L Carbon Dioxide 20 L (22-30) mmol/L Anion Gap 8 mmol/L BUN 8 (7-17) mg/dL Creatinine 0.71 (0.52-1.04) mg/dL Est GFR (CKD-EPI)AfAm >90 (>60 ml/min/1.73 sqM) Est GFR (CKD-EPI)NonAf >90 (>60 ml/min/1.73 sqM) Glucose 127 H (74-99) mg/dL POC Glucose (mg/dL) (75-99) mg/dL POC Glu Disassembler ID Lactic Ac Sepsis Rflx Plasma Lactic Acid Jeremy (0.7-2.0) mmol/L Calcium 8.7 (8.4-10.2) mg/dL Magnesium 1.7 (1.6-2.3) mg/dL Total Bilirubin 0.2 (0.2-1.3) mg/dL AST 11 L (14-36) U/L ALT <6 L (9-52) U/L Alkaline Phosphatase 125 (38-126) U/L Ammonia 14 (<30) umol/L Creatine Kinase 39 (30-135) U/L Troponin I (0.000-0.034) ng/mL Total Protein 6.8 (6.3-8.2) g/dL Albumin 3.5 (3.5-5.0) g/dL Lipase 65 (23-300) U/L Urine Color Urine Appearance (Clear) Urine pH (5.0-8.0) Ur Specific [place] (1.001-1.035) Urine Protein (Negative) Urine Glucose (UA) (Negative) Urine Ketones (Negative) Urine Blood (Negative) Urine Nitrite (Negative) Urine Bilirubin (Negative) Urine Urobilinogen (<2.0) mg/dL Ur Leukocyte Esterase (Negative) Urine HCG, Qual (Not Detectd) Salicylates <1.0 mg/dL Urine Opiates Screen (NotDetected) Ur Oxycodone Screen (NotDetected) Urine Methadone Screen (NotDetected) Ur Propoxyphene Screen (NotDetected) Acetaminophen <10.0 ug/mL Ur Barbiturates Screen (NotDetected) U Tricyclic Antidepress (NotDetected) Ur Phencyclidine Scrn (NotDetected) Ur Amphetamines Screen (NotDetected) U Methamphetamines Scrn (NotDetected) U Benzodiazepines Scrn (NotDetected) Urine Cocaine Screen (NotDetected) U Marijuana (THC) Screen (NotDetected) Serum Alcohol <10 mg/dL 09/20/18 09/20/18 09/20/18 Range/Units 11:12 11:12 11:12 WBC (3.8-10.6) k/uL RBC (3.80-5.40) m/uL Hgb (11.4-16.0) gm/dL Hct (34.0-46.0) % MCV (80.0-100.0) fL MCH (25.0-35.0) pg MCHC (31.0-37.0) g/dL RDW (11.5-15.5) % Plt Count (150-450) k/uL Neutrophils % % Lymphocytes % % Monocytes % % Eosinophils % % Basophils % % Neutrophils # (1.3-7.7) k/uL Lymphocytes # (1.0-4.8) k/uL Monocytes # (0-1.0) k/uL Eosinophils # (0-0.7) k/uL Basophils # (0-0.2) k/uL Hypochromasia Anisocytosis Macrocytosis PT (9.0-12.0) sec INR (<1.2) VBG pH (7.31-7.41) VBG pCO2 (37-51) mmHg VBG HCO3 (24-28) mmol/L Sodium (137-145) mmol/L Potassium (3.5-5.1) mmol/L Chloride (98-107) mmol/L Carbon Dioxide (22-30) mmol/L Anion Gap mmol/L BUN (7-17) mg/dL Creatinine (0.52-1.04) mg/dL Est GFR (CKD-EPI)AfAm (>60 ml/min/1.73 sqM) Est GFR (CKD-EPI)NonAf (>60 ml/min/1.73 sqM) Glucose (74-99) mg/dL POC Glucose (mg/dL) (75-99) mg/dL POC Glu Disassembler ID Lactic Ac Sepsis Rflx Plasma Lactic Acid Jeremy 2.1 H* (0.7-2.0) mmol/L Calcium (8.4-10.2) mg/dL Magnesium (1.6-2.3) mg/dL Total Bilirubin (0.2-1.3) mg/dL AST (14-36) U/L ALT (9-52) U/L Alkaline Phosphatase (38-126) U/L Ammonia (<30) umol/L Creatine Kinase (30-135) U/L Troponin I (0.000-0.034) ng/mL Total Protein (6.3-8.2) g/dL Albumin (3.5-5.0) g/dL Lipase (23-300) U/L Urine Color Light Yellow Urine Appearance Clear (Clear) Urine pH 7.5 (5.0-8.0) Ur Specific [place] 1.005 (1.001-1.035) Urine Protein Negative (Negative) Urine Glucose (UA) Negative (Negative) Urine Ketones Negative (Negative) Urine Blood Negative (Negative) Urine Nitrite Negative (Negative) Urine Bilirubin Negative (Negative) Urine Urobilinogen <2.0 (<2.0) mg/dL Ur Leukocyte Esterase Negative (Negative) Urine HCG, Qual Not Detected (Not Detectd) Salicylates mg/dL Urine Opiates Screen Not Detected (NotDetected) Ur Oxycodone Screen Detected H (NotDetected) Urine Methadone Screen Not Detected (NotDetected) Ur Propoxyphene Screen Not Detected (NotDetected) Acetaminophen ug/mL Ur Barbiturates Screen Detected H (NotDetected) U Tricyclic Antidepress Detected H (NotDetected) Ur Phencyclidine Scrn Not Detected (NotDetected) Ur Amphetamines Screen Not Detected (NotDetected) U Methamphetamines Scrn Not Detected (NotDetected) U Benzodiazepines Scrn Detected H (NotDetected) Urine Cocaine Screen Not Detected (NotDetected) U Marijuana (THC) Screen Not Detected (NotDetected) Serum Alcohol mg/dL 09/20/18 09/20/18 09/20/18 Range/Units 11:12 11:12 11:12 WBC (3.8-10.6) k/uL RBC (3.80-5.40) m/uL Hgb (11.4-16.0) gm/dL Hct (34.0-46.0) % MCV (80.0-100.0) fL MCH (25.0-35.0) pg MCHC (31.0-37.0) g/dL RDW (11.5-15.5) % Plt Count (150-450) k/uL Neutrophils % % Lymphocytes % % Monocytes % % Eosinophils % % Basophils % % Neutrophils # (1.3-7.7) k/uL Lymphocytes # (1.0-4.8) k/uL Monocytes # (0-1.0) k/uL Eosinophils # (0-0.7) k/uL Basophils # (0-0.2) k/uL Hypochromasia Anisocytosis Macrocytosis PT 10.5 (9.0-12.0) sec INR 1.0 (<1.2) VBG pH 7.38 (7.31-7.41) VBG pCO2 34 L (37-51) mmHg VBG HCO3 20 L (24-28) mmol/L Sodium (137-145) mmol/L Potassium (3.5-5.1) mmol/L Chloride (98-107) mmol/L Carbon Dioxide (22-30) mmol/L Anion Gap mmol/L BUN (7-17) mg/dL Creatinine (0.52-1.04) mg/dL Est GFR (CKD-EPI)AfAm (>60 ml/min/1.73 sqM) Est GFR (CKD-EPI)NonAf (>60 ml/min/1.73 sqM) Glucose (74-99) mg/dL POC Glucose (mg/dL) (75-99) mg/dL POC Glu Disassembler ID Lactic Ac Sepsis Rflx Plasma Lactic Acid Jeremy (0.7-2.0) mmol/L Calcium (8.4-10.2) mg/dL Magnesium (1.6-2.3) mg/dL Total Bilirubin (0.2-1.3) mg/dL AST (14-36) U/L ALT (9-52) U/L Alkaline Phosphatase (38-126) U/L Ammonia (<30) umol/L Creatine Kinase (30-135) U/L Troponin I <0.012 (0.000-0.034) ng/mL Total Protein (6.3-8.2) g/dL Albumin (3.5-5.0) g/dL Lipase (23-300) U/L Urine Color Urine Appearance (Clear) Urine pH (5.0-8.0) Ur Specific [place] (1.001-1.035) Urine Protein (Negative) Urine Glucose (UA) (Negative) Urine Ketones (Negative) Urine Blood (Negative) Urine Nitrite (Negative) Urine Bilirubin (Negative) Urine Urobilinogen (<2.0) mg/dL Ur Leukocyte Esterase (Negative) Urine HCG, Qual (Not Detectd) Salicylates mg/dL Urine Opiates Screen (NotDetected) Ur Oxycodone Screen (NotDetected) Urine Methadone Screen (NotDetected) Ur Propoxyphene Screen (NotDetected) Acetaminophen ug/mL Ur Barbiturates Screen (NotDetected) U Tricyclic Antidepress (NotDetected) Ur Phencyclidine Scrn (NotDetected) Ur Amphetamines Screen (NotDetected) U Methamphetamines Scrn (NotDetected) U Benzodiazepines Scrn (NotDetected) Urine Cocaine Screen (NotDetected) U Marijuana (THC) Screen (NotDetected) Serum Alcohol mg/dL 09/20/18 09/20/18 Range/Units 11:12 11:56 WBC (3.8-10.6) k/uL RBC (3.80-5.40) m/uL Hgb (11.4-16.0) gm/dL Hct (34.0-46.0) % MCV (80.0-100.0) fL MCH (25.0-35.0) pg MCHC (31.0-37.0) g/dL RDW (11.5-15.5) % Plt Count (150-450) k/uL Neutrophils % % Lymphocytes % % Monocytes % % Eosinophils % % Basophils % % Neutrophils # (1.3-7.7) k/uL Lymphocytes # (1.0-4.8) k/uL Monocytes # (0-1.0) k/uL Eosinophils # (0-0.7) k/uL Basophils # (0-0.2) k/uL Hypochromasia Anisocytosis Macrocytosis PT (9.0-12.0) sec INR (<1.2) VBG pH (7.31-7.41) VBG pCO2 (37-51) mmHg VBG HCO3 (24-28) mmol/L Sodium (137-145) mmol/L Potassium (3.5-5.1) mmol/L Chloride (98-107) mmol/L Carbon Dioxide (22-30) mmol/L Anion Gap mmol/L BUN (7-17) mg/dL Creatinine (0.52-1.04) mg/dL Est GFR (CKD-EPI)AfAm (>60 ml/min/1.73 sqM) Est GFR (CKD-EPI)NonAf (>60 ml/min/1.73 sqM) Glucose (74-99) mg/dL POC Glucose (mg/dL) 152 H (75-99) mg/dL POC Glu Disassembler ID Suly Caballero Lactic Ac Sepsis Rflx Y Plasma Lactic Acid Jeremy (0.7-2.0) mmol/L Calcium (8.4-10.2) mg/dL Magnesium (1.6-2.3) mg/dL Total Bilirubin (0.2-1.3) mg/dL AST (14-36) U/L ALT (9-52) U/L Alkaline Phosphatase (38-126) U/L Ammonia (<30) umol/L Creatine Kinase (30-135) U/L Troponin I (0.000-0.034) ng/mL Total Protein (6.3-8.2) g/dL Albumin (3.5-5.0) g/dL Lipase (23-300) U/L Urine Color Urine Appearance (Clear) Urine pH (5.0-8.0) Ur Specific [place] (1.001-1.035) Urine Protein (Negative) Urine Glucose (UA) (Negative) Urine Ketones (Negative) Urine Blood (Negative) Urine Nitrite (Negative) Urine Bilirubin (Negative) Urine Urobilinogen (<2.0) mg/dL Ur Leukocyte Esterase (Negative) Urine HCG, Qual (Not Detectd) Salicylates mg/dL Urine Opiates Screen (NotDetected) Ur Oxycodone Screen (NotDetected) Urine Methadone Screen (NotDetected) Ur Propoxyphene Screen (NotDetected) Acetaminophen ug/mL Ur Barbiturates Screen (NotDetected) U Tricyclic Antidepress (NotDetected) Ur Phencyclidine Scrn (NotDetected) Ur Amphetamines Screen (NotDetected) U Methamphetamines Scrn (NotDetected) U Benzodiazepines Scrn (NotDetected) Urine Cocaine Screen (NotDetected) U Marijuana (THC) Screen (NotDetected) Serum Alcohol mg/dL - EKG Data -: EKG Interpreted by Me (Normal sinus rhythm rate was 94 IL interval 166 QRS 86 QT since QTC 376/470) Critical Care Time Critical Care Time: Yes Critical Care Time: 49 minutes of critical care time which included initial presentation with history physical labs x-rays discussed with paramedics multiple reevaluation the patient discussed with family members regarding findings discussed with multiple admission orders and documentation of the above. Disposition Clinical Impression: Acute hyperkalemia, Chronic renal failure syndrome, Third degree heart block, Vasovagal episode Disposition: ADMITTED IP TO THIS [facility] Condition: Serious Referrals: None,Stated [Primary Care Provider] - 1-2 days
[2018-09-20 12:09] LABS: Glucose,Whole Blood 152 mg/dL (75-99)
[2018-09-20] MEDS ORDERED: SODIUM CHLORIDE 0.9% 2,000 ML IV ONE (13:17)
[2018-09-20] MEDS ORDERED: LORazepam 2 MG/ML INJ IV STA ×2 (14:03→15:43)
[2018-09-20] MEDS ORDERED: NALOXONE 0.4 MG/ML 1 ML VIAL IV PRN (15:37)
--- NOTE | 2018-09-20 15:37 | ED ---
Medical Decision Making - Medical Decision Making The patient is being admitted for drug overdose and evaluation I did discuss the case with Dr. Edmondson who did come see the patient in the emergency department. The above stated charting of Dr. Arango, Dr. Alex Palma was placed in air. - Lab Data Result diagrams: 09/20/18 11:12 09/20/18 11:12 Lab Results 09/20/18 09/20/18 09/20/18 Range/Units 11:12 11:12 11:12 WBC 7.7 (3.8-10.6) k/uL RBC 3.83 (3.80-5.40) m/uL Hgb 11.7 (11.4-16.0) gm/dL Hct 37.6 (34.0-46.0) % MCV 98.1 (80.0-100.0) fL MCH 30.5 (25.0-35.0) pg MCHC 31.1 (31.0-37.0) g/dL RDW 18.9 H (11.5-15.5) % Plt Count 253 (150-450) k/uL Neutrophils % 44 % Lymphocytes % 42 % Monocytes % 7 % Eosinophils % 5 % Basophils % 0 % Neutrophils # 3.3 (1.3-7.7) k/uL Lymphocytes # 3.2 (1.0-4.8) k/uL Monocytes # 0.6 (0-1.0) k/uL Eosinophils # 0.4 (0-0.7) k/uL Basophils # 0.0 (0-0.2) k/uL Hypochromasia Slight Anisocytosis Slight Macrocytosis Slight PT (9.0-12.0) sec INR (<1.2) VBG pH (7.31-7.41) VBG pCO2 (37-51) mmHg VBG HCO3 (24-28) mmol/L Sodium 142 (137-145) mmol/L Potassium 3.9 (3.5-5.1) mmol/L Chloride 114 H (98-107) mmol/L Carbon Dioxide 20 L (22-30) mmol/L Anion Gap 8 mmol/L BUN 8 (7-17) mg/dL Creatinine 0.71 (0.52-1.04) mg/dL Est GFR (CKD-EPI)AfAm >90 (>60 ml/min/1.73 sqM) Est GFR (CKD-EPI)NonAf >90 (>60 ml/min/1.73 sqM) Glucose 127 H (74-99) mg/dL POC Glucose (mg/dL) (75-99) mg/dL POC Glu Airconditioning [employer]ing [employer] ID Lactic Ac Sepsis Rflx Plasma Lactic Acid Jeremy (0.7-2.0) mmol/L Calcium 8.7 (8.4-10.2) mg/dL Magnesium 1.7 (1.6-2.3) mg/dL Total Bilirubin 0.2 (0.2-1.3) mg/dL AST 11 L (14-36) U/L ALT <6 L (9-52) U/L Alkaline Phosphatase 125 (38-126) U/L Ammonia 14 (<30) umol/L Creatine Kinase 39 (30-135) U/L Troponin I (0.000-0.034) ng/mL Total Protein 6.8 (6.3-8.2) g/dL Albumin 3.5 (3.5-5.0) g/dL Lipase 65 (23-300) U/L Urine Color Urine Appearance (Clear) Urine pH (5.0-8.0) Ur Specific [place] (1.001-1.035) Urine Protein (Negative) Urine Glucose (UA) (Negative) Urine Ketones (Negative) Urine Blood (Negative) Urine Nitrite (Negative) Urine Bilirubin (Negative) Urine Urobilinogen (<2.0) mg/dL Ur Leukocyte Esterase (Negative) Urine HCG, Qual (Not Detectd) Salicylates <1.0 mg/dL Urine Opiates Screen (NotDetected) Ur Oxycodone Screen (NotDetected) Urine Methadone Screen (NotDetected) Ur Propoxyphene Screen (NotDetected) Acetaminophen <10.0 ug/mL Ur Barbiturates Screen (NotDetected) U Tricyclic Antidepress (NotDetected) Ur Phencyclidine Scrn (NotDetected) Ur Amphetamines Screen (NotDetected) U Methamphetamines Scrn (NotDetected) U Benzodiazepines Scrn (NotDetected) Urine Cocaine Screen (NotDetected) U Marijuana (THC) Screen (NotDetected) Serum Alcohol <10 mg/dL 0609/20/18 09/20/18 Range/Units 11:12 11:12 11:12 WBC (3.8-10.6) k/uL RBC (3.80-5.40) m/uL Hgb (11.4-16.0) gm/dL Hct (34.0-46.0) % MCV (80.0-100.0) fL MCH (25.0-35.0) pg MCHC (31.0-37.0) g/dL RDW (11.5-15.5) % Plt Count (150-450) k/uL Neutrophils % % Lymphocytes % % Monocytes % % Eosinophils % % Basophils % % Neutrophils # (1.3-7.7) k/uL Lymphocytes # (1.0-4.8) k/uL Monocytes # (0-1.0) k/uL Eosinophils # (0-0.7) k/uL Basophils # (0-0.2) k/uL Hypochromasia Anisocytosis Macrocytosis PT (9.0-12.0) sec INR (<1.2) VBG pH (7.31-7.41) VBG pCO2 (37-51) mmHg VBG HCO3 (24-28) mmol/L Sodium (137-145) mmol/L Potassium (3.5-5.1) mmol/L Chloride (98-107) mmol/L Carbon Dioxide (22-30) mmol/L Anion Gap mmol/L BUN (7-17) mg/dL Creatinine (0.52-1.04) mg/dL Est GFR (CKD-EPI)AfAm (>60 ml/min/1.73 sqM) Est GFR (CKD-EPI)NonAf (>60 ml/min/1.73 sqM) Glucose (74-99) mg/dL POC Glucose (mg/dL) (75-99) mg/dL POC Glu Airconditioning [employer]ing Officer ID Lactic Ac Sepsis Rflx Plasma Lactic Acid Jeremy 2.1 H* (0.7-2.0) mmol/L Calcium (8.4-10.2) mg/dL Magnesium (1.6-2.3) mg/dL Total Bilirubin (0.2-1.3) mg/dL AST (14-36) U/L ALT (9-52) U/L Alkaline Phosphatase (38-126) U/L Ammonia (<30) umol/L Creatine Kinase (30-135) U/L Troponin I (0.000-0.034) ng/mL Total Protein (6.3-8.2) g/dL Albumin (3.5-5.0) g/dL Lipase (23-300) U/L Urine Color Light Yellow Urine Appearance Clear (Clear) Urine pH 7.5 (5.0-8.0) Ur Specific [place] 1.005 (1.001-1.035) Urine Protein Negative (Negative) Urine Glucose (UA) Negative (Negative) Urine Ketones Negative (Negative) Urine Blood Negative (Negative) Urine Nitrite Negative (Negative) Urine Bilirubin Negative (Negative) Urine Urobilinogen <2.0 (<2.0) mg/dL Ur Leukocyte Esterase Negative (Negative) Urine HCG, Qual Not Detected (Not Detectd) Salicylates mg/dL Urine Opiates Screen Not Detected (NotDetected) Ur Oxycodone Screen Detected H (NotDetected) Urine Methadone Screen Not Detected (NotDetected) Ur Propoxyphene Screen Not Detected (NotDetected) Acetaminophen ug/mL Ur Barbiturates Screen Detected H (NotDetected) U Tricyclic Antidepress Detected H (NotDetected) Ur Phencyclidine Scrn Not Detected (NotDetected) Ur Amphetamines Screen Not Detected (NotDetected) U Methamphetamines Scrn Not Detected (NotDetected) U Benzodiazepines Scrn Detected H (NotDetected) Urine Cocaine Screen Not Detected (NotDetected) U Marijuana (THC) Screen Not Detected (NotDetected) Serum Alcohol mg/dL 09/20/18 09/20/18 09/20/18 Range/Units 11:12 11:12 11:12 WBC (3.8-10.6) k/uL RBC (3.80-5.40) m/uL Hgb (11.4-16.0) gm/dL Hct (34.0-46.0) % MCV (80.0-100.0) fL MCH (25.0-35.0) pg MCHC (31.0-37.0) g/dL RDW (11.5-15.5) % Plt Count (150-450) k/uL Neutrophils % % Lymphocytes % % Monocytes % % Eosinophils % % Basophils % % Neutrophils # (1.3-7.7) k/uL Lymphocytes # (1.0-4.8) k/uL Monocytes # (0-1.0) k/uL Eosinophils # (0-0.7) k/uL Basophils # (0-0.2) k/uL Hypochromasia Anisocytosis Macrocytosis PT 10.5 (9.0-12.0) sec INR 1.0 (<1.2) VBG pH 7.38 (7.31-7.41) VBG pCO2 34 L (37-51) mmHg VBG HCO3 20 L (24-28) mmol/L Sodium (137-145) mmol/L Potassium (3.5-5.1) mmol/L Chloride (98-107) mmol/L Carbon Dioxide (22-30) mmol/L Anion Gap mmol/L BUN (7-17) mg/dL Creatinine (0.52-1.04) mg/dL Est GFR (CKD-EPI)AfAm (>60 ml/min/1.73 sqM) Est GFR (CKD-EPI)NonAf (>60 ml/min/1.73 sqM) Glucose (74-99) mg/dL POC Glucose (mg/dL) (75-99) mg/dL POC Glu Airconditioning [employer]ing [employer] ID Lactic Ac Sepsis Rflx Plasma Lactic Acid Jeremy (0.7-2.0) mmol/L Calcium (8.4-10.2) mg/dL Magnesium (1.6-2.3) mg/dL Total Bilirubin (0.2-1.3) mg/dL AST (14-36) U/L ALT (9-52) U/L Alkaline Phosphatase (38-126) U/L Ammonia (<30) umol/L Creatine Kinase (30-135) U/L Troponin I <0.012 (0.000-0.034) ng/mL Total Protein (6.3-8.2) g/dL Albumin (3.5-5.0) g/dL Lipase (23-300) U/L Urine Color Urine Appearance (Clear) Urine pH (5.0-8.0) Ur Specific [place] (1.001-1.035) Urine Protein (Negative) Urine Glucose (UA) (Negative) Urine Ketones (Negative) Urine Blood (Negative) Urine Nitrite (Negative) Urine Bilirubin (Negative) Urine Urobilinogen (<2.0) mg/dL Ur Leukocyte Esterase (Negative) Urine HCG, Qual (Not Detectd) Salicylates mg/dL Urine Opiates Screen (NotDetected) Ur Oxycodone Screen (NotDetected) Urine Methadone Screen (NotDetected) Ur Propoxyphene Screen (NotDetected) Acetaminophen ug/mL Ur Barbiturates Screen (NotDetected) U Tricyclic Antidepress (NotDetected) Ur Phencyclidine Scrn (NotDetected) Ur Amphetamines Screen (NotDetected) U Methamphetamines Scrn (NotDetected) U Benzodiazepines Scrn (NotDetected) Urine Cocaine Screen (NotDetected) U Marijuana (THC) Screen (NotDetected) Serum Alcohol mg/dL 09/20/18 09/20/18 Range/Units 11:12 11:56 WBC (3.8-10.6) k/uL RBC (3.80-5.40) m/uL Hgb (11.4-16.0) gm/dL Hct (34.0-46.0) % MCV (80.0-100.0) fL MCH (25.0-35.0) pg MCHC (31.0-37.0) g/dL RDW (11.5-15.5) % Plt Count (150-450) k/uL Neutrophils % % Lymphocytes % % Monocytes % % Eosinophils % % Basophils % % Neutrophils # (1.3-7.7) k/uL Lymphocytes # (1.0-4.8) k/uL Monocytes # (0-1.0) k/uL Eosinophils # (0-0.7) k/uL Basophils # (0-0.2) k/uL Hypochromasia Anisocytosis Macrocytosis PT (9.0-12.0) sec INR (<1.2) VBG pH (7.31-7.41) VBG pCO2 (37-51) mmHg VBG HCO3 (24-28) mmol/L Sodium (137-145) mmol/L Potassium (3.5-5.1) mmol/L Chloride (98-107) mmol/L Carbon Dioxide (22-30) mmol/L Anion Gap mmol/L BUN (7-17) mg/dL Creatinine (0.52-1.04) mg/dL Est GFR (CKD-EPI)AfAm (>60 ml/min/1.73 sqM) Est GFR (CKD-EPI)NonAf (>60 ml/min/1.73 sqM) Glucose (74-99) mg/dL POC Glucose (mg/dL) 152 H (75-99) mg/dL POC Glu Airconditioning Drafting Officer ID Suly Caballero Lactic Ac Sepsis Rflx Y Plasma Lactic Acid Jeremy (0.7-2.0) mmol/L Calcium (8.4-10.2) mg/dL Magnesium (1.6-2.3) mg/dL Total Bilirubin (0.2-1.3) mg/dL AST (14-36) U/L ALT (9-52) U/L Alkaline Phosphatase (38-126) U/L Ammonia (<30) umol/L Creatine Kinase (30-135) U/L Troponin I (0.000-0.034) ng/mL Total Protein (6.3-8.2) g/dL Albumin (3.5-5.0) g/dL Lipase (23-300) U/L Urine Color Urine Appearance (Clear) Urine pH (5.0-8.0) Ur Specific [place] (1.001-1.035) Urine Protein (Negative) Urine Glucose (UA) (Negative) Urine Ketones (Negative) Urine Blood (Negative) Urine Nitrite (Negative) Urine Bilirubin (Negative) Urine Urobilinogen (<2.0) mg/dL Ur Leukocyte Esterase (Negative) Urine HCG, Qual (Not Detectd) Salicylates mg/dL Urine Opiates Screen (NotDetected) Ur Oxycodone Screen (NotDetected) Urine Methadone Screen (NotDetected) Ur Propoxyphene Screen (NotDetected) Acetaminophen ug/mL Ur Barbiturates Screen (NotDetected) U Tricyclic Antidepress (NotDetected) Ur Phencyclidine Scrn (NotDetected) Ur Amphetamines Screen (NotDetected) U Methamphetamines Scrn (NotDetected) U Benzodiazepines Scrn (NotDetected) Urine Cocaine Screen (NotDetected) U Marijuana (THC) Screen (NotDetected) Serum Alcohol mg/dL Disposition Clinical Impression: Drug overdose, Altered mental status, History of depression Disposition: ADMITTED IP TO THIS HOSP Condition: Fair Referrals: None,Stated [Primary Care Provider] - 1-2 days
[2018-09-20] MEDS ORDERED: LORazepam 2 MG/ML INJ IV PRN (15:41)
[2018-09-20] MEDS: SODIUM CHLORIDE 0.9% 1,000 ML IV SCH (15:53)
[2018-09-20] MEDS ORDERED: ALBUTEROL NEBULIZED 2.5 MG/3 ML INHALATION PRN (20:00)
[2018-09-20] MEDS: LORazepam 2 MG/ML INJ IV PRN ×2 (20:02→23:12)
--- NOTE | 2018-09-20 20:03 | P.HPIM ---
History of Present Illness H&P Date: 09/20/18 Chief Complaint: Overdose 33-year-old female with PMH of asthma, fibromyalgia, seizure disorder, hypothyroidism, anxiety and depression presents to the ED as a suspected overd ose. Patient is unable to provide any history at this time. Patient is very tearful and states that she is scared. She is unable to tell me why she is scared. Patient states that she just wants to go home. She denies any complaints. She denies any headache, lower extremity edema, nausea, vomiting, fever, cough, chest pain, shortness of breath, palpitations, changes in urination or bowel rios bits. No changes in appetite or weight. Patient denies this being a suicidal attempt. In the ED, her vital signs were fairly stable. Her heart rate was within normal limits except for 2 incidences where he was 106 and 103. Her blood pressure maintained greater than 101/64. Her O2 saturation was greater than 93%. CBC was unremarkable. Coagulation panel was negative. VBG showed normal pH, low pCO2 of 34 and low bicarbonate of 20. CMP showed chloride of 114, bicarbonate of 20, glucose of 127. Lactic acid was 2.1. Ammonia and troponin was negative. Urinalysis was negative. UDS was positive for oxycodone, barbiturates, TCAs and benzodiazepines. Alcohol is negative. Patient is admitted for possible overdose, suicidal attempt. Review of Systems Pertinent positives and negatives as discussed in HPI, a complete review of systems was performed and all other systems are negative. Past Medical History Past Medical History: Asthma, Fibromyalgia, GERD/Reflux, Neurologic Disorder, Seizure Disorder, Thyroid Disorder Additional Past Medical History / Comment(s): crohns disease, diverticulosis, ibs, carpal tunnel, anemia, chronic back pain , migraines, pinched nerves, History of Any Multi-Drug Resistant Organisms: None Reported Past Surgical History: Adenoidectomy, Appendectomy, Cholecystectomy, Orthopedic Surgery, Tonsillectomy Additional Past Surgical History / Comment(s): EGD/colonoscopy, right ankle surgery Past Anesthesia/Blood Transfusion Reactions: No Reported Reaction Additional Past Anesthesia/Blood Transfusion Reaction / Comment(s): hallucinations Past Psychological History: Anxiety, Depression Additional Psychological History / Comment(s): on medications Smoking Status: Current every day smoker Past Alcohol Use History: None Reported Additional Past Alcohol Use History / Comment(s): has smoked since age 14 down to < half pack per day. Past Drug Use History: None Reported - Past Family History Father Family Medical History: Diabetes Mellitus, Hyperlipidemia Mother Family Medical History: Cancer, CVA/TIA, Deep Vein Thrombosis (DVT), Osteoarthritis (OA), Thyroid Disorder Additional Family Medical History / Comment(s): Extensive tattoos throughout body Medications and Allergies Home Medications Medication Instructions Recorded Confirmed Type Sertraline HCl [Zoloft] 200 mg PO DAILY 09/24/13 09/20/18 History Ranitidine HCl [Zantac] 150 mg PO BID 12/26/15 09/20/18 History Divalproex Sodium [Depakote] 2,000 mg PO BID 04/30/16 09/20/18 History QUEtiapine [SEROquel] 500 mg PO HS 04/22/17 09/20/18 History Gabapentin [Neurontin] 800 mg PO TID 10/11/17 09/20/18 History Ferrous Sulfate [Iron (65 MG 325 mg PO DAILY 01/29/18 09/20/18 History Elemental)] Propranolol [Inderal] 40 mg PO TID 01/29/18 09/20/18 History Simvastatin [Zocor] 20 mg PO HS 01/29/18 09/20/18 History Beclomethasone Dipropionate [Qvar 2 puff INHALATION RT-DAILY 02/07/18 09/20/18 History 80 mcg] Amitriptyline HCl [Elavil] 50 mg PO DAILY 08/07/18 09/20/18 History Levothyroxine Sodium [Synthroid] 137 mcg PO DAILY 08/07/18 09/20/18 History Loratadine [Claritin] 10 mg PO DAILY 08/07/18 09/20/18 History Montelukast [Singulair] 10 mg PO DAILY 08/07/18 09/20/18 History Promethazine [Phenergan] 50 mg PO DAILY PRN 08/07/18 09/20/18 History QUEtiapine [SEROquel] 100 mg PO BID 08/07/18 09/20/18 History Lisinopril-Hctz 20-25 mg 1 tab PO DAILY #0 08/21/18 09/20/18 Rx [Zestoretic 20-25] oxyCODONE-APAP 10-325MG [Percocet 1 tab PO TID #0 08/21/18 09/20/18 Rx 10-325 mg] ALPRAZolam [Xanax] 2 mg PO BID 3 Days #6 tab 09/06/18 09/20/18 Rx Allergies Allergy/AdvReac Type Severity Reaction Status Date / Time dicyclomine [From Bentyl] Allergy Severe Hallucinati Verified 09/20/18 12:28 ons granisetron HCl [From Kytril] Allergy Severe Anaphylaxis Verified 09/20/18 12:28 baclofen Allergy Rash/Hives Verified 09/20/18 12:28 butorphanol tartrate Allergy Rash/Hives Verified 09/20/18 12:28 [From Stadol] ketorolac tromethamine Allergy Rash/Hives Verified 09/20/18 12:28 [From Toradol] meperidine HCl [From Demerol] Allergy Swelling Verified 09/20/18 12:28 methocarbamol [From Robaxin] Allergy Unknown Verified 09/20/18 12:28 pregabalin [From Lyrica] Allergy Unknown Verified 09/20/18 12:28 sulfamethoxazole Allergy Rash/Hives Verified 09/20/18 12:28 [From Bactrim] trimethoprim [From Bactrim] Allergy Rash/Hives Verified 09/20/18 12:28 codeine AdvReac Vomiting & Verified 09/20/18 12:28 Headache methylprednisolone AdvReac Vomiting & Verified 09/20/18 12:28 [From Medrol] Headache Physical Exam Vitals: Vital Signs Temp Pulse Resp BP Pulse Ox 09/20/18 17:30 81 18 123/81 95 09/20/18 17:00 85 18 147/93 95 09/20/18 15:30 106 H 18 117/88 93 L 09/20/18 15:00 92 20 98 09/20/18 14:00 103 H 18 133/96 98 09/20/18 13:30 78 14 115/84 97 09/20/18 13:00 79 18 101/64 96 09/20/18 12:00 88 18 112/85 99 09/20/18 11:06 18 115/80 97 09/20/18 11:03 98.7 F 92 18 115/80 97 Intake and Output 09/20/18 09/20/18 09/20/18 06:59 14:59 22:59 Other: Weight 80.739 kg General: [non toxic], [tearful], [appears at stated age] Derm: [warm], [dry] Head: [atraumatic], [normocephalic], [symmetric] Eyes: [EOMI], [no lid lag], [anicteric sclera] Mouth: [no lip lesion], [mucus membranes moist] Cardiovascular: [S1S2 reg], [no murmur], [positive DP pulse bilateral] Lungs: [CTA bilateral], [no rhonchi, no rales] , [no accessory muscle use] Abdominal: [soft], [ nontender to palpation], [no guarding], [no appreciable organomegaly] Ext: [no gross muscle atrophy], [no edema], [no contractures] Neuro: [no focal neuro deficits] Psych: [Alert], [oriented], [appropriate affect] Results CBC & Chem 7: 09/20/18 11:12 09/20/18 11:12 Labs: Abnormal Lab Results - Last 24 Hours (Table) 09/20/18 09/20/18 09/20/18 Range/Units 11:12 11:12 11:12 RDW 18.9 H (11.5-15.5) % VBG pCO2 (37-51) mmHg VBG HCO3 (24-28) mmol/L Chloride 114 H (98-107) mmol/L Carbon Dioxide 20 L (22-30) mmol/L Glucose 127 H (74-99) mg/dL POC Glucose (mg/dL) (75-99) mg/dL Plasma Lactic Acid Jeremy (0.7-2.0) mmol/L AST 11 L (14-36) U/L ALT <6 L (9-52) U/L Ur Oxycodone Screen Detected H (NotDetected) Ur Barbiturates Screen Detected H (NotDetected) U Tricyclic Antidepress Detected H (NotDetected) U Benzodiazepines Scrn Detected H (NotDetected) 09/20/18 09/20/18 09/20/18 Range/Units 11:12 11:12 11:12 RDW (11.5-15.5) % VBG pCO2 34 L (37-51) mmHg VBG HCO3 20 L (24-28) mmol/L Chloride (98-107) mmol/L Carbon Dioxide (22-30) mmol/L Glucose (74-99) mg/dL POC Glucose (mg/dL) 152 H (75-99) mg/dL Plasma Lactic Acid Jeremy 2.1 H* (0.7-2.0) mmol/L AST (14-36) U/L ALT (9-52) U/L Ur Oxycodone Screen (NotDetected) Ur Barbiturates Screen (NotDetected) U Tricyclic Antidepress (NotDetected) U Benzodiazepines Scrn (NotDetected) Thrombosis Risk Factor Assmnt - Choose All That Apply Any of the Below Risk Factors Present?: Yes Each Factor Represents 1 point: Obesity (BMI >25) Thrombosis Risk Factor Assessment Total Risk Factor Score: 1 Thrombosis Risk Factor Assessment Level: Low Risk Assessment and Plan Assessment: Assessment and Plan Suspected drug overdose, possible suicidal attempt Lactic acidosis Hyperchloremic metabolic acidosis Asthma Fibromyalgia Seizure disorder Hypothyroidism Anxiety and depression UDS positive for oxycodone, barbiturates, TCAs, benzodiazepines. Alcohol negative. ED reports as OD on Fioricet. Acetaminophen level less than 10. Daya n: Ativan as needed for anxiety. Given 1 dose of acetylcysteine for possible acetaminophen OD. Suicidal precautions. Advanced neurochecks. Recheck acetaminophen level tomorrow morning. One-to-one sitter. Follow psychiatry consult Lactic acid 2.1-1.2. Likely secondary to dehydration. Plans: Resolved. Continue normal saline at 100 mL/h. Chloride 114, bicarbonate of 20. Likely due to infused IVF. Plans: Daily BMP. Plans: Albuterol neb as needed for shortness of breath and wheezing. Plans: Adequate pain control. On gabapentin at home and on TCA. Will hold all medications at this point until evaluation by psychiatry. Plans: Continue Depakote. Seizure and fall precautions. Plans: Continue Synthroid. Plans: We'll consult psychiatry. Hold all psych medications until evaluations. Patient admitted for suspected drug OD. She is pending clinical improvement. Psychiatric has been consulted.
[2018-09-20] MEDS ORDERED: ATORVASTATIN 10 MG TAB PO SCH (21:00)
[2018-09-20] MEDS: DIVALPROEX 500 MG TABLET.DR PO SCH (23:13)
[2018-09-21] MEDS: SODIUM CHLORIDE 0.9% 1,000 ML IV SCH ×2 (03:53→08:59)
[2018-09-21] MEDS ORDERED: LEVOTHYROXINE 137 MCG TAB PO SCH (06:30)
[2018-09-21 07:15] VITALS: RESP 16
[2018-09-21] MEDS ORDERED: FLUTICASONE 110 MCG INHALER INHALATION SCH (08:00)
[2018-09-21] MEDS: DIVALPROEX 500 MG TABLET.DR PO SCH (08:19)
[2018-09-21] MEDS ORDERED: ACETAMINOPHEN TAB 325 MG TAB PO PRN (08:25)
[2018-09-21] MEDS ORDERED: LORATADINE 10 MG TAB PO SCH (09:00)
[2018-09-21] MEDS ORDERED: LISINOPRIL-HCTZ 20-25 MG 1 EACH TAB PO SCH (09:00)
[2018-09-21] MEDS ORDERED: MONTELUKAST 10 MG TAB PO SCH (09:00)
[2018-09-21 09:27] LABS: Anisocytosis Slight; Basophils % (A) 0 %; Eosinophils # (A) 0.1 k/uL (0-0.7); Eosinophils % (A) 1 %; HGB 10.3 gm/dL (11.4-16.0); Hypochromasia Slight; Lymphocytes # (A) 1.6 k/uL (1.0-4.8); Lymphocytes % (A) 27 %; MCH 30.3 pg (25.0-35.0); MCHC 30.4 g/dL (31.0-37.0); MCV 99.7 fL (80.0-100.0); Macrocytosis Moderate; Mean Platelet Volume 7.6; Monocytes # (A) 0.4 k/uL (0-1.0); Monocytes % (A) 7 %; Neutrophils # (A) 3.7 k/uL (1.3-7.7); Neutrophils % (A) 63 %; Platelet Count 235 k/uL (150-450); RBC 3.41 m/uL (3.80-5.40); RDW 18.9 % (11.5-15.5); WBC 5.8 k/uL (3.8-10.6)
[2018-09-21 10:07] LABS: ALT 9 U/L (9-52); AST 10 U/L (14-36); Acetaminophen <10.0 ug/mL; African American GFR (CKD) >90 (>60 ml/min/1.73 sqM); Alkaline Phosphatase 104 U/L (38-126); Anion Gap 6 mmol/L; Blood Urea Nitrogen 7 mg/dL (7-17); Calcium 8.4 mg/dL (8.4-10.2); Carbon Dioxide 19 mmol/L (22-30); Chloride 115 mmol/L (98-107); Glucose 112 mg/dL (74-99); Potassium 4.1 mmol/L (3.5-5.1); Sodium 140 mmol/L (137-145); Total Bilirubin 0.2 mg/dL (0.2-1.3); Total Protein 5.9 g/dL (6.3-8.2)
--- NOTE | 2018-09-21 11:38 | CDI ---
Documentation Clarification Form Date: 09/21/2018 11:10:43 AM From: Julisa Prabhakar RN, CCDS Admit Date: 09/20/2018 3:37:00 PM Patient Name: Stacey Mistry Visit Number: [id number] Discharge Date: ATTENTION: The Clinical Documentation Specialists (CDI) and [facility] Coding Staff appreciate your assistance in clarifying documentation. Please respond to the clarification below the line at the bottom and electronically sign. The CDI & [facility] Coding staff will review the response and follow-up if needed. Please note: Queries are made part of the Legal Health Record. If you have any questions, please contact the author of this message via ITS. Dr. Stefan Alvarez Altered Mental Status was documented in the ED assessment and further clarification is needed. History/Risk Factors: Asthma, Fibromyalgia, Seizure disorder , Thyroid disorder, Anxiety, Depression, Current every day smoker Clinical Indicators: [id number] who present by EMS, found to be minimally responsive. There was between 15 and 30 pills missing from a bottle of Fioricet. General exam in ED: well-developed well-nourished awake but lethargic, limitations due to altered mental status. Vital signs on Admission: 1135/80 92 18 98.7 97 % 2/L NC Labs: Lactic acid 2.1, Chloride 114, CO2 20, UDS-Positive for oxycodone, barbiturates, TCAs and benzodiazepines Chest X Ray: No acute process Treatment: IV .9% @100 mls/hr Acetylcysteine IV x1 dose, Suicidal precautions One-to-one sitter Advanced neurochecks per protocol Monitor Labs, acetaminophen level, Psychiatry consult In your professional opinion, please clarify the etiology of the Altered Mental Status, if known. Toxic Encephalopathy Metabolic Encephalopathy Other condition (please specify) Unable to determine (Last Revision: July 2017) toxic encephalopathy, overdose unintentional MTDD
--- NOTE | 2018-09-21 13:41 | P.PN ---
Subjective Progress Note Date: 09/21/18 Principal diagnosis: Suspected overdose Patient was seen and examined. No acute events overnight. Patient appears more awake today. States that she was to go home. Complains of feeling fidgety. She denies any chest pain, shortness of breath or palpitations. Objective - Vital Signs Vital signs: Vital Signs Temp 98.9 F 09/21/18 07:00 Pulse 105 H 09/21/18 07:00 Resp 16 09/21/18 07:00 BP 128/87 09/21/18 07:00 Pulse Ox 99 09/21/18 07:00 Intake & Output 09/20/18 09/21/18 09/21/18 18:59 06:59 18:59 Intake Total 1250 616 Balance 1250 616 Weight 80.739 kg Intake: Intake, IV Titration 1250 Amount Sodium Chloride 0.9% 1, 1250 000 ml @ 100 mls/hr IV . Q10H JAMEL Rx#:[id number] Oral 616 Other: # Voids 5 1 # Bowel Movements 1 - Exam General: [non toxic], [tearful], [appears at stated age] Derm: [warm], [dry] Head: [atraumatic], [normocephalic], [symmetric] Eyes: [EOMI], [no lid lag], [anicteric sclera] Mouth: [no lip lesion], [mucus membranes moist] Cardiovascular: [S1S2 reg], [tachycardia], [positive DP pulse bilateral] Lungs: [CTA bilateral], [no rhonchi, no rales] , [no accessory muscle use] Abdominal: [soft], [ nontender to palpation], [no guarding], [no appreciable organomegaly] Ext: [no gross muscle atrophy], [no edema], [no contractures] Neuro: [no focal neuro deficits] Psych: [Alert], [oriented], [appropriate affect] - Labs CBC & Chem 7: 09/21/18 08:59 09/21/18 08:59 Labs: Abnormal Lab Results - Last 24 Hours (Table) 09/21/18 09/21/18 Range/Units 08:59 08:59 RBC 3.41 L (3.80-5.40) m/uL Hgb 10.3 L (11.4-16.0) gm/dL MCHC 30.4 L (31.0-37.0) g/dL RDW 18.9 H (11.5-15.5) % Chloride 115 H (98-107) mmol/L Carbon Dioxide 19 L (22-30) mmol/L Glucose 112 H (74-99) mg/dL AST 10 L (14-36) U/L Total Protein 5.9 L (6.3-8.2) g/dL Albumin 3.0 L (3.5-5.0) g/dL Assessment and Plan Assessment: Assessment and Plan Suspected drug overdose, possible suicidal attempt Lactic acidosis Hyperchloremic metabolic acidosis Asthma Fibromyalgia Seizure disorder Hypothyroidism Anxiety and depression UDS positive for oxycodone, barbiturates, TCAs, benzodiazepines. Alcohol negative. ED reports as OD on Fioricet. Acetaminophen level less than 10 x 2. Plan: Ativan as needed for anxiety. Given 1 dose of acetylcysteine for possible acetaminophen OD. Suicidal precautions. Advanced neurochecks. One-to-one sitter. Check EKG. Follow psychiatry consult Lactic acid 2.1-1.2. Likely secondary to dehydration. Plans: Resolved. DC IVF and encourage hydration by mouth. Chloride 114, bicarbonate of 20. Likely due to infused IVF. Plans: Daily BMP. Chloride 114 to 1:15. HCO3 2219. Likely secondary to diffuse IVF. Plans: D aily BMP. DC IVF and encourage hydration by mouth. Plans: Albuterol neb as needed for shortness of breath and wheezing. Plans: Adequate pain control. On gabapentin at home and on TCA. Will hold all medications at this point until evaluation by psychiatry. Plans: Continue Depakote. Seizure and fall precautions. Plans: Continue Synthroid. Plans: We'll consult psychiatry. Hold all psych medications until evaluations. Patient admitted for suspected drug OD. Psychiatric has been consulted.
[2018-09-21 14:13] VITALS: BP 127/86; PULSE 91; TEMP 98.8
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
--- NOTE | 2018-10-03 07:18 | P.DS ---
Providers Date of admission: 09/20/18 15:37 Expected date of discharge: 09/21/18 Attending physician: Suleiman Edmondson MD Consults: 09/20/18 15:39 Consult Physician Routine Consulting Provider: Sis Neal Consult Reason/Comments: Overdose, depression Do you want consulting provider notified?: Already Contacted Primary care physician: Stated None Hospital Course: 33-year-old female with PMH of asthma, fibromyalgia, seizure disorder, hypothyroidism, anxiety and depression presents to the ED as a suspected overdose. Patient is unable to provide any history at this time. Patient is very tearful and states that she is scared. She is unable to tell me why she is scared. Patient states that she just wants to go home. She denies any complaints. She denies any headache, lower extremity edema, nausea, vomiting, fever, cough, chest pain, shortness of breath, palpitations, changes in urination or bowel habits. No changes in appetite or weight. Patient denies this being a suicidal attempt. In the ED, her vital signs were fairly stable. Her heart rate was within normal limits except for 2 incidences where he was 106 and 103. Her blood pressure maintained greater than 101/64. Her O2 saturation was greater than 93%. CBC was unremarkable. Coagulation panel was negative. VBG showed normal pH, low pCO2 of 34 and low bicarbonate of 20. CMP showed chloride of 114, bicarbonate of 20, glucose of 127. Lactic acid was 2.1. Ammonia and troponin was negative. Urinalysis was negative. UDS was positive for oxycodone, barbiturates, TCAs and benzodiazepines. Alcohol is negative. Her UDS was positive for oxycodone, barbiturates, TCAs and benzodiazepines. ED reported an overdose on Fioricet. Acetaminophen levels were less than 102. She was given Ativan as needed for anxiety. She is given 1 dose of acetylcysteine for possible acetaminophen OD. Patient was placed on suicidal precautions and psychiatry was consulted. Patient initiated a lactic acid of 2.1 which trended down to 1.2 with hydration. Patient was noted to have a hyperchloremic metabolic acidosis likely secondary to infused IVF. Otherwise, her home medications were resumed for asthma, fibromyalgia, seizure disorder and hypothyroidism. Psychiatry was consulted, patient was cleared for discharge as she was not suicidal. Assessment and Plan Suspected drug overdose, possible suicidal attempt Lactic acidosis Hyperchloremic metabolic acidosis Asthma Fibromyalgia Seizure disorder Hypothyroidism Anxiety and depression UDS positive for oxycodone, barbiturates, TCAs, benzodiazepines. Alcohol negative. ED reports as OD on Fioricet. Acetaminophen level less than 10 x 2. Plan: Ativan as needed for anxiety. Given 1 dose of acetylcysteine for possible acetaminophen OD. Suicidal precautions. Advanced neurochecks. One-to-one sitter. Check EKG. Follow psychiatry consult Lactic acid 2.1-1.2. Likely secondary to dehydration. Plans: Resolved. DC IVF and encourage hydration by mouth. Chloride 114, bicarbonate of 20. Likely due to infused IVF. Plans: Daily BMP. Chloride 114 to 115. HCO3 22 to 19. Likely secondary to diffuse IVF. Plans: D aily BMP. DC IVF and encourage hydration by mouth. Plans: Albuterol neb as needed for shortness of breath and wheezing. Plans: Adequate pain control. On gabapentin at home and on TCA. Will hold all medications at this point until evaluation by psychiatry. Plans: Continue Depakote. Seizure and fall precautions. Plans: Continue Synthroid. Plans: We'll consult psychiatry. Hold all psych medications until evaluations. Patient admitted for suspected drug OD. Psychiatric has been consulted, cleared for discharge. Pertinent Studies: EKG Patient Condition at Discharge: Fair Plan - Discharge Summary New Discharge Prescriptions: Continue Sertraline HCl [Zoloft] 200 mg PO DAILY Ranitidine HCl [Zantac] 150 mg PO BID Divalproex Sodium [Depakote] 2,000 mg PO BID QUEtiapine [SEROquel] 500 mg PO HS Gabapentin [Neurontin] 800 mg PO TID Ferrous Sulfate [Iron (65 MG Elemental)] 325 mg PO DAILY Simvastatin [Zocor] 20 mg PO HS Propranolol [Inderal] 40 mg PO TID Beclomethasone Dipropionate [Qvar 80 mcg] 2 puff INHALATION RT-DAILY Montelukast [Singulair] 10 mg PO DAILY Loratadine [Claritin] 10 mg PO DAILY QUEtiapine [SEROquel] 100 mg PO BID@0900,1700 Levothyroxine Sodium [Synthroid] 137 mcg PO DAILY Amitriptyline HCl [Elavil] 50 mg PO DAILY Lisinopril-Hctz 20-25 mg [Zestoretic 20-25] 1 tab PO DAILY #0 ALPRAZolam [Xanax] 2 mg PO BID 3 Days #6 tab Discontinued Promethazine [Phenergan] 50 mg PO DAILY PRN PRN Reason: Nausea And Vomiting oxyCODONE-APAP 10-325MG [Percocet 10-325 mg] 1 tab PO TID #0 Discharge Medication List Sertraline HCl [Zoloft] 200 mg PO DAILY 09/24/13 [History] Ranitidine HCl [Zantac] 150 mg PO BID 12/26/15 [History] Divalproex Sodium [Depakote] 2,000 mg PO BID 04/30/16 [History] QUEtiapine [SEROquel] 500 mg PO HS 04/22/17 [History] Gabapentin [Neurontin] 800 mg PO TID 10/11/17 [History] Ferrous Sulfate [Iron (65 MG Elemental)] 325 mg PO DAILY 01/29/18 [History] Propranolol [Inderal] 40 mg PO TID 01/29/18 [History] Simvastatin [Zocor] 20 mg PO HS 01/29/18 [History] Beclomethasone Dipropionate [Qvar 80 mcg] 2 puff INHALATION RT-DAILY 02/07/18 [History] Amitriptyline HCl [Elavil] 50 mg PO DAILY 08/07/18 [History] Levothyroxine Sodium [Synthroid] 137 mcg PO DAILY 08/07/18 [History] Loratadine [Claritin] 10 mg PO DAILY 08/07/18 [History] Montelukast [Singulair] 10 mg PO DAILY 08/07/18 [History] QUEtiapine [SEROquel] 100 mg PO BID@0900,1700 08/07/18 [History] Lisinopril-Hctz 20-25 mg [Zestoretic 20-25] 1 tab PO DAILY #0 08/21/18 [Rx] ALPRAZolam [Xanax] 2 mg PO BID 3 Days #6 tab 09/06/18 [Rx] Follow up Appointment(s)/Referral(s): None,Stated [Primary Care Provider] - 1-2 days Patient Instructions/Handouts: Adult Overdose (ED) Activity/Diet/Wound Care/Special Instructions: Diet: Regular Follow-up with PCP within 1-2 days of discharge. Follow-up with psychiatry as arranged, within 1-2 days of discharge. Please take all medications as advised. Please come back to the ED or call 911 for suicidal ideation, homicidal ideation, auditory or visual hallucinations. Discharge Disposition: HOME SELF-CARE
== END 2018-09-21 18:18 | disposition home or self-care (01) ==
LOC: EC 11:02 → 4MS4W 15:37 → INTOOBSV 15:37 → 4MS4W 16:05 → 4SSUR 17:00 → UNDODISIN 09-21 18:18
PROVIDERS: ADMIT Family Medicine; ATTEND Family Medicine
DX: T50.991A Poisoning by other drugs, medicaments and biological substances, accidental (unintentional), initial encounter (principal); G92 Toxic encephalopathy; E87.2 Acidosis; I44.2 Atrioventricular block, complete; K50.90 Crohn's disease, unspecified, without complications; E87.5 Hyperkalemia; E03.9 Hypothyroidism, unspecified; E86.0 Dehydration; F17.200 Nicotine dependence, unspecified, uncomplicated; N18.9 Chronic kidney disease, unspecified; F31.9 Bipolar disorder, unspecified; F41.9 Anxiety disorder, unspecified; G40.909 Epilepsy, unspecified, not intractable, without status epilepticus; J45.909 Unspecified asthma, uncomplicated; K21.9 Gastro-esophageal reflux disease without esophagitis; M79.7 Fibromyalgia; G43.909 Migraine, unspecified, not intractable, without status migrainosus; K57.90 Diverticulosis of intestine, part unspecified, without perforation or abscess without bleeding; G89.29 Other chronic pain; M54.9 Dorsalgia, unspecified; F17.210 Nicotine dependence, cigarettes, uncomplicated; R55 Syncope and collapse; E66.9 Obesity, unspecified; Z68.28 Body mass index [BMI] 28.0-28.9, adult; G56.00 Carpal tunnel syndrome, unspecified upper limb; Z79.890 Hormone replacement therapy; Z79.51 Long term (current) use of inhaled steroids; Z79.899 Other long term (current) drug therapy; Z91.5 Personal history of self-harm; Z88.1 Allergy status to other antibiotic agents; Z88.5 Allergy status to narcotic agent; Z88.2 Allergy status to sulfonamides; Z88.8 Allergy status to other drugs, medicaments and biological substances; Z90.49 Acquired absence of other specified parts of digestive tract; Z83.3 Family history of diabetes mellitus; Z80.9 Family history of malignant neoplasm, unspecified; Z82.3 Family history of stroke; Z83.49 Family history of other endocrine, nutritional and metabolic diseases; Z84.89 Family history of other specified conditions; Z82.49 Family history of ischemic heart disease and other diseases of the circulatory system; Z82.61 Family history of arthritis
CPT/HCPCS: 96376 ×2; 96361; 96365; 96375; 99291; 36415; 93005 ×2; 80164; 80053 ×2; 82140; 82550; 82803; 83605; 83690; 83735; 84484; 85025 ×2; 85610; 81003; 81025; 80306; 83520; 71045; G0378 ×2; G0480 ×3; J2060; J0132; 80320; 80329; 96360

== ENCOUNTER 2019-02-20 18:00 | Emergency (ER) | payer OTHER ==
[2019-02-20 18:09] VITALS: RESP 18; TEMP 98.4
--- NOTE | 2019-02-20 19:17 | XR ---
EXAMINATION TYPE: XR cervical spine comp DATE OF EXAM: 02/20/2019 CLINICAL HISTORY: pain COMPARISON: NONE TECHNIQUE: Frontal, lateral, oblique, swimmers, and open mouth view of the cervical spine are obtaine d. FINDINGS: The cervical spine is visualized in its entirety from C1 thru the top of T1 level. It is s atisfactory in alignment without evidence of acute fracture or dislocation. The pre-vertebral soft t issue appears within normal limits. Disc spaces are well preserved. The C1-C2 articulation is unremar kable on the open mouth view. The oblique images are within normal limits. IMPRESSION: No acute fracture or dislocation is seen in the cervical spine .ICD 10 NO FRACTURE, INITIAL EVALUATION
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
[2019-02-20 19:43] VITALS: BP 160/90; PULSE 99
== END 2019-02-20 19:42 | disposition home or self-care (01) ==
LOC: EC 18:00
DX: S10.93XA Contusion of unspecified part of neck, initial encounter (principal); J45.909 Unspecified asthma, uncomplicated; M79.7 Fibromyalgia; K21.9 Gastro-esophageal reflux disease without esophagitis; G40.909 Epilepsy, unspecified, not intractable, without status epilepticus; E07.9 Disorder of thyroid, unspecified; D64.9 Anemia, unspecified; F41.9 Anxiety disorder, unspecified; F32.9 Major depressive disorder, single episode, unspecified; F17.200 Nicotine dependence, unspecified, uncomplicated; Z79.51 Long term (current) use of inhaled steroids; Z79.890 Hormone replacement therapy; Z79.899 Other long term (current) drug therapy; Z88.8 Allergy status to other drugs, medicaments and biological substances; Z88.6 Allergy status to analgesic agent; Z88.5 Allergy status to narcotic agent; Z88.2 Allergy status to sulfonamides; Y04.8XXA Assault by other bodily force, initial encounter
CPT/HCPCS: 70360; 72050; 99284

== ENCOUNTER 2019-04-10 16:45 | Emergency (ER) | payer OTHER ==
[2019-04-10 16:54] VITALS: PULSE 105; RESP 18
[2019-04-10] MEDS ORDERED: SODIUM CHLORIDE 0.9% 1,000 ML IV STA (17:07)
[2019-04-10] MEDS ORDERED: ONDANSETRON 4 MG/2 ML VIAL IVP STA (17:07)
[2019-04-10] MEDS ORDERED: HYDROmorphone 1 MG/ML 1 ML SYRINGE IVP STA (17:07)
--- NOTE | 2019-04-10 17:15 | ED ---
Abdominal Pain HPI - General Chief Complaint: Abdominal Pain Stated Complaint: abdominal pain Time Seen by Provider: 04/10/19 16:58 Source: patient, EMS Mode of arrival: EMS Limitations: no limitations - History of Present Illness Initial Comments: 34-year-old female patient with past medical history significant for Crohn's presents to the emergency department today for evaluation of right upper quadrant abdominal pain. Patient states the pain started yesterday evening. States that she has had diarrhea which is usual for her. States she has had so me streaking of blood which is also usual for her. States that she has vomited twice. Denies any hematemesis. Denies fever or chills. Patient states the pain is severe in different from her usual Crohn's and abdominal pain. She denies any recent travel or sick contacts. Denies any medications. She has had appendectomy and cholecystectomy in the past. Patient denies any recent rash, fever, chills, shortness breath, chest pain, back pain, numbness, tingling, dizziness, weakness, hematuria, dysuria, urinary urgency, urinary frequency, headache, visual changes, or any other complaints. - Related Data Home Medications Medication Instructions Recorded Confirmed Sertraline HCl [Zoloft] 200 mg PO DAILY 09/24/13 09/20/18 Ranitidine HCl [Zantac] 150 mg PO BID 12/26/15 09/20/18 Divalproex Sodium [Depakote] 2,000 mg PO BID 04/30/16 09/20/18 QUEtiapine [SEROquel] 500 mg PO HS 04/22/17 09/20/18 Gabapentin [Neurontin] 800 mg PO TID 10/11/17 09/20/18 Ferrous Sulfate [Iron (65 MG 325 mg PO DAILY 01/29/18 09/20/18 Elemental)] Propranolol [Inderal] 40 mg PO TID 01/29/18 09/20/18 Simvastatin [Zocor] 20 mg PO HS 01/29/18 09/20/18 Beclomethasone Dipropionate [Qvar 2 puff INHALATION RT-DAILY 02/07/18 09/20/18 80 mcg] Amitriptyline HCl [Elavil] 50 mg PO DAILY 08/07/18 09/20/18 Levothyroxine Sodium [Synthroid] 137 mcg PO DAILY 08/07/18 09/20/18 Loratadine [Claritin] 10 mg PO DAILY 08/07/18 09/20/18 Montelukast [Singulair] 10 mg PO DAILY 08/07/18 09/20/18 QUEtiapine [SEROquel] 100 mg PO BID@0900,1700 08/07/18 09/21/18 Previous Rx's Medication Instructions Recorded Lisinopril-Hctz 20-25 mg 1 tab PO DAILY #0 08/21/18 [Zestoretic 20-25] ALPRAZolam [Xanax] 2 mg PO BID 3 Days #6 tab 09/06/18 predniSONE 50 mg PO DAILY #5 tablet 04/10/19 Allergies Allergy/AdvReac Type Severity Reaction Status Date / Time dicyclomine [From Bentyl] Allergy Severe Hallucinati Verified 04/10/19 16:56 ons granisetron HCl [From Kytril] Allergy Severe Anaphylaxis Verified 04/10/19 16:56 baclofen Allergy Rash/Hives Verified 04/10/19 16:56 butorphanol tartrate Allergy Rash/Hives Verified 04/10/19 16:56 [From Stadol] ketorolac tromethamine Allergy Rash/Hives Verified 04/10/19 16:56 [From Toradol] meperidine HCl [From Demerol] Allergy Swelling Verified 04/10/19 16:56 pregabalin [From Lyrica] Allergy Unknown Verified 04/10/19 16:56 sulfamethoxazole Allergy Rash/Hives Verified 04/10/19 16:56 [From Bactrim] trimethoprim [From Bactrim] Allergy Rash/Hives Verified 04/10/19 16:56 codeine AdvReac Vomiting & Verified 04/10/19 16:56 Headache methylprednisolone AdvReac Vomiting & Verified 04/10/19 16:56 [From Medrol] Headache Review of Systems ROS Statement: Those systems with pertinent positive or pertinent negative responses have been documented in the HPI. ROS Other: All systems not noted in ROS Statement are negative. Past Medical History Past Medical History: Asthma, Fibromyalgia, GERD/Reflux, Neurologic Disorder, Seizure Disorder, Thyroid Disorder Additional Past Medical History / Comment(s): crohns disease, diverticulosis, ibs, carpal tunnel, anemia, chronic back pain , migraines, pinched nerves, chronic colitis. History of Any Multi-Drug Resistant Organisms: None Reported Past Surgical History: Adenoidectomy, Appendectomy, Cholecystectomy, Orthopedic Surgery, Tonsillectomy Additional Past Surgical History / Comment(s): EGD/colonoscopy, right ankle surgery Past Anesthesia/Blood Transfusion Reactions: No Reported Reaction Additional Past Anesthesia/Blood Transfusion Reaction / Comment(s): hallucinations Past Psychological History: Anxiety, Bipolar, Depression Smoking Status: Current every day smoker Past Alcohol Use History: None Reported Past Drug Use History: None Reported - Past Family History Father Family Medical History: Diabetes Mellitus, Hyperlipidemia Mother Family Medical History: Cancer, CVA/TIA, Deep Vein Thrombosis (DVT), Osteoarthritis (OA), Thyroid Disorder Additional Family Medical History / Comment(s): Extensive tattoos throughout body General Exam Limitations: no limitations General appearance: alert, in no apparent distress, other (This is a well- developed, well-nourished adult female patient in no acute distress. Vital signs upon presentation are temperature 98.7F, pulse 105, respirations 18, blood pressure 122/94, pulse ox 98% on room air.) Eye exam: Present: normal appearance, PERRL, EOMI. Absent: scleral icterus, conjunctival injection, periorbital swelling ENT exam: Present: normal exam, normal oropharynx, mucous membranes moist Respiratory exam: Present: normal lung sounds bilaterally. Absent: respiratory distress, wheezes, rales, rhonchi, stridor Cardiovascular Exam: Present: regular rate, normal rhythm, normal heart sounds. Absent: systolic murmur, diastolic murmur, rubs, gallop, clicks GI/Abdominal exam: Present: soft, tenderness (Upper abdominal tenderness), n ormal bowel sounds. Absent: distended, guarding, rebound, rigid Neurological exam: Present: alert, oriented X3, CN II-XII intact Psychiatric exam: Present: normal affect, normal mood Skin exam: Present: warm, dry, intact, normal color. Absent: rash Course Vital Signs 04/10/19 16:48 Temperature 98.7 F Pulse Rate 105 H Respiratory 18 Rate Blood Pressure 122/94 O2 Sat by Pulse 98 Oximetry Medical Decision Making - Medical Decision Making 34-year-old female patient presents to the emergency department today for evaluation of right upper quadrant abdominal pain. Physical examination did reveal tenderness over the upper abdomen. Labs reviewed and are unremarkable. KUB is unremarkable. Patient history reviewed, she has had 17 CT scans of her abdomen and pelvis in the past. We did use disorder decision making to decide again computed tomography scan at this time. She'll be started on a course of steroids of these have worked for her flares in the past. She is instructed about the GI specialist for further evaluation as soon as possible. She is instructed to follow-up with her primary care physician for recheck in 1-2 days. Return parameters were discussed in detail patient verbalizes understanding and agrees with this plan. - Lab Data Result diagrams: 04/10/19 17:15 04/10/19 17:15 Lab Results 04/10/19 04/10/19 04/10/19 Range/Units 17:15 17:15 17:15 WBC 9.0 (3.8-10.6) k/uL RBC 4.06 (3.80-5.40) m/uL Hgb 11.4 (11.4-16.0) gm/dL Hct 35.7 (34.0-46.0) % MCV 87.9 (80.0-100.0) fL MCH 28.0 (25.0-35.0) pg MCHC 31.8 (31.0-37.0) g/dL RDW 17.3 H (11.5-15.5) % Plt Count 492 H (150-450) k/uL Neutrophils % 40 % Lymphocytes % 47 % Monocytes % 7 % Eosinophils % 2 % Basophils % 0 % Neutrophils # 3.6 (1.3-7.7) k/uL Lymphocytes # 4.2 (1.0-4.8) k/uL Monocytes # 0.6 (0-1.0) k/uL Eosinophils # 0.2 (0-0.7) k/uL Basophils # 0.0 (0-0.2) k/uL Anisocytosis Slight Sodium 137 (137-145) mmol/L Potassium 4.0 (3.5-5.1) mmol/L Chloride 112 H (98-107) mmol/L Carbon Dioxide 18 L (22-30) mmol/L Anion Gap 7 mmol/L BUN 7 (7-17) mg/dL Creatinine 0.69 (0.52-1.04) mg/dL Est GFR (CKD-EPI)AfAm >90 (>60 ml/min/1.73 sqM) Est GFR (CKD-EPI)NonAf >90 (>60 ml/min/1.73 sqM) Glucose 87 (74-99) mg/dL Plasma Lactic Acid Jeremy 0.9 (0.7-2.0) mmol/L Calcium 8.8 (8.4-10.2) mg/dL Total Bilirubin 0.8 (0.2-1.3) mg/dL AST 20 (14-36) U/L ALT 16 (4-34) U/L Alkaline Phosphatase 97 (38-126) U/L Total Protein 6.9 (6.3-8.2) g/dL Albumin 3.7 (3.5-5.0) g/dL Amylase 85 (30-110) U/L Lipase 40 (23-300) U/L Urine Color Urine Appearance (Clear) Urine pH (5.0-8.0) Ur Specific Hayes (1.001-1.035) Urine Protein (Negative) Urine Glucose (UA) (Negative) Urine Ketones (Negative) Urine Blood (Negative) Urine Nitrite (Negative) Urine Bilirubin (Negative) Urine Urobilinogen (<2.0) mg/dL Ur Leukocyte Esterase (Negative) 04/10/19 Range/Units 17:15 WBC (3.8-10.6) k/uL RBC (3.80-5.40) m/uL Hgb (11.4-16.0) gm/dL Hct (34.0-46.0) % MCV (80.0-100.0) fL MCH (25.0-35.0) pg MCHC (31.0-37.0) g/dL RDW (11.5-15.5) % Plt Count (150-450) k/uL Neutrophils % % Lymphocytes % % Monocytes % % Eosinophils % % Basophils % % Neutrophils # (1.3-7.7) k/uL Lymphocytes # (1.0-4.8) k/uL Monocytes # (0-1.0) k/uL Eosinophils # (0-0.7) k/uL Basophils # (0-0.2) k/uL Anisocytosis Sodium (137-145) mmol/L Potassium (3.5-5.1) mmol/L Chloride (98-107) mmol/L Carbon Dioxide (22-30) mmol/L Anion Gap mmol/L BUN (7-17) mg/dL Creatinine (0.52-1.04) mg/dL Est GFR (CKD-EPI)AfAm (>60 ml/min/1.73 sqM) Est GFR (CKD-EPI)NonAf (>60 ml/min/1.73 sqM) Glucose (74-99) mg/dL Plasma Lactic Acid Jeremy (0.7-2.0) mmol/L Calcium (8.4-10.2) mg/dL Total Bilirubin (0.2-1.3) mg/dL AST (14-36) U/L ALT (4-34) U/L Alkaline Phosphatase (38-126) U/L Total Protein (6.3-8.2) g/dL Albumin (3.5-5.0) g/dL Amylase (30-110) U/L Lipase (23-300) U/L Urine Color Colorless Urine Appearance Clear (Clear) Urine pH 6.5 (5.0-8.0) Ur Specific Hayes 1.004 (1.001-1.035) Urine Protein Negative (Negative) Urine Glucose (UA) Negative (Negative) Urine Ketones Negative (Negative) Urine Blood Negative (Negative) Urine Nitrite Negative (Negative) Urine Bilirubin Negative (Negative) Urine Urobilinogen <2.0 (<2.0) mg/dL Ur Leukocyte Esterase Negative (Negative) - Radiology Data Radiology results: report reviewed, image reviewed 2 views of the abdomen obtained. Report is reviewed in its entirety. Impression by Dr. Noble shows nonacute abdomen. No change Disposition Clinical Impression: Abdominal pain Disposition: HOME SELF-CARE Condition: Good Instructions (If sedation given, give patient instructions): Abdominal Pain (ED) Additional Instructions: Complete steroids in full. Follow-up with GI specialty for further evaluation as as possible. Return to the emergency department immediately for any new, worsening, or concerning symptoms. Prescriptions: predniSONE 50 mg PO DAILY #5 tablet Is patient prescribed a controlled substance at d/c from ED?: No Referrals: None,Stated [REFERRING] - 1-2 days Time of Disposition: 18:18
--- NOTE | 2019-04-10 17:35 | XR ---
EXAMINATION TYPE: XR KUB DATE OF EXAM: 04/10/2019 COMPARISON: 02/07/2018 HISTORY: Abdominal pain TECHNIQUE: 2 views upright FINDINGS: There is no sign of intestinal obstruction or pneumoperitoneum. Fecal pattern is normal. Th ere are clips from cholecystectomy. Bowel gas pattern is normal. There are no pathologic calcificatio ns over the kidneys. IMPRESSION: Nonacute abdomen. No change.
[2019-04-10 17:46] LABS: Anisocytosis Slight; Basophils % (A) 0 %; Eosinophils # (A) 0.2 k/uL (0-0.7); Eosinophils % (A) 2 %; HCT 35.7 % (34.0-46.0); HGB 11.4 gm/dL (11.4-16.0); Lymphocytes # (A) 4.2 k/uL (1.0-4.8); Lymphocytes % (A) 47 %; MCHC 31.8 g/dL (31.0-37.0); MCV 87.9 fL (80.0-100.0); Mean Platelet Volume 7.1; Monocytes # (A) 0.6 k/uL (0-1.0); Monocytes % (A) 7 %; Neutrophils # (A) 3.6 k/uL (1.3-7.7); Neutrophils % (A) 40 %; Platelet Count 492 k/uL (150-450); RBC 4.06 m/uL (3.80-5.40); RDW 17.3 % (11.5-15.5)
[2019-04-10 17:49] LABS: Appearance,Urine Clear (Clear); Bilirubin,Urine Negative (Negative); Blood,Urine Negative (Negative); Color,Urine Colorless; Glucose,Urine (UA) Negative (Negative); Ketones,Urine Negative (Negative); Leukocyte Esterase,Urine Negative (Negative); Nitrite,Urine Negative (Negative); PH, Urine 6.5 (5.0-8.0); Protein,Urine Negative (Negative); Specific Gravity,Urine 1.004 (1.001-1.035); Urobilinogen,Urine <2.0 mg/dL (<2.0)
[2019-04-10 17:58] LABS: ALT 16 U/L (4-34); AST 20 U/L (14-36); African American GFR (CKD) >90 (>60 ml/min/1.73 sqM); Albumin 3.7 g/dL (3.5-5.0); Alkaline Phosphatase 97 U/L (38-126); Amylase 85 U/L (30-110); Anion Gap 7 mmol/L; Blood Urea Nitrogen 7 mg/dL (7-17); Calcium 8.8 mg/dL (8.4-10.2); Carbon Dioxide 18 mmol/L (22-30); Chloride 112 mmol/L (98-107); Glucose 87 mg/dL (74-99); Non-African American GFR(CKD) >90 (>60 ml/min/1.73 sqM); Sodium 137 mmol/L (137-145); Total Bilirubin 0.8 mg/dL (0.2-1.3); Total Protein 6.9 g/dL (6.3-8.2)
[2019-04-10] MEDS ORDERED: DEXAMETHASONE SOD PHOSPHATE 10 MG/ML 1 ML VIAL IV STA (18:17)
[2019-04-10] MEDS ORDERED: ACET/COD 300 MG/30 MG STARTER PACK 6 TAB BTL PO STA (18:27)
[2019-04-10 18:37] VITALS: BP 137/89; TEMP 98.5
== END 2019-04-10 18:41 | disposition home or self-care (01) ==
LOC: EC 16:45
DX: R10.11 Right upper quadrant pain (principal); R11.10 Vomiting, unspecified; K58.0 Irritable bowel syndrome with diarrhea; J45.909 Unspecified asthma, uncomplicated; M79.7 Fibromyalgia; K21.9 Gastro-esophageal reflux disease without esophagitis; G40.909 Epilepsy, unspecified, not intractable, without status epilepticus; E07.9 Disorder of thyroid, unspecified; D64.9 Anemia, unspecified; F31.9 Bipolar disorder, unspecified; F41.9 Anxiety disorder, unspecified; F17.200 Nicotine dependence, unspecified, uncomplicated; Z88.2 Allergy status to sulfonamides; Z88.5 Allergy status to narcotic agent; Z88.6 Allergy status to analgesic agent; Z88.8 Allergy status to other drugs, medicaments and biological substances; Z79.51 Long term (current) use of inhaled steroids; Z79.890 Hormone replacement therapy; Z79.899 Other long term (current) drug therapy; Z86.69 Personal history of other diseases of the nervous system and sense organs; Z87.19 Personal history of other diseases of the digestive system; Z90.49 Acquired absence of other specified parts of digestive tract
CPT/HCPCS: 36415; 80053; 82150; 83605; 83690; 85025; 81003; 74018; 99285; 96374; 96375 ×2; 96361; J1100; J2405; J1170

== ENCOUNTER 2019-06-01 17:42 | Emergency (ER) | payer OTHER ==
[2019-06-01 17:46] VITALS: RESP 18
--- NOTE | 2019-06-01 18:05 | ED ---
Abdominal Pain HPI - General Chief Complaint: Abdominal Pain Stated Complaint: Rectal bleed Time Seen by Provider: 06/01/19 17:49 Source: EMS, RN notes reviewed, old records reviewed Mode of arrival: EMS Limitations: no limitations - History of Present Illness Initial Comments: This is a 34-year-old female DF for evaluation patient has a for evaluation of abdominal pain states history of Crohn's. No recent travel history or sick contacts. No recent medication changes. Patient takes no pain medication a regular basis. Does admit to some blood in her stool. No nausea vomiting. Right-sided abdominal pain. With maybe mildly different than her prior abdominal pain MD Complaint: abdominal pain -: days(s) Location: RLQ, epigastric, suprapubic Radiation: RLQ, R flank Migration to: suprapubic Severity: moderate Severity scale (1-10): 7 Quality: cramping, fullness Consistency: intermittent Improves With: eating Worsens With: nothing Associated Symptoms: nausea, diarrhea, hematochezia - Related Data Home Medications Medication Instructions Recorded Confirmed Sertraline HCl [Zoloft] 200 mg PO DAILY 09/24/13 09/20/18 Ranitidine HCl [Zantac] 150 mg PO BID 12/26/15 09/20/18 Divalproex Sodium [Depakote] 2,000 mg PO BID 04/30/16 09/20/18 QUEtiapine [SEROquel] 500 mg PO HS 04/22/17 09/20/18 Gabapentin [Neurontin] 800 mg PO TID 10/11/17 09/20/18 Ferrous Sulfate [Iron (65 MG 325 mg PO DAILY 01/29/18 09/20/18 Elemental)] Propranolol [Inderal] 40 mg PO TID 01/29/18 09/20/18 Simvastatin [Zocor] 20 mg PO HS 01/29/18 09/20/18 Beclomethasone Dipropionate [Qvar 2 puff INHALATION RT-DAILY 02/07/18 09/20/18 80 mcg] Amitriptyline HCl [Elavil] 50 mg PO DAILY 08/07/18 09/20/18 Levothyroxine Sodium [Synthroid] 137 mcg PO DAILY 08/07/18 09/20/18 Loratadine [Claritin] 10 mg PO DAILY 08/07/18 09/20/18 Montelukast [Singulair] 10 mg PO DAILY 08/07/18 09/20/18 QUEtiapine [SEROquel] 100 mg PO BID@0900,1700 08/07/18 09/21/18 Previous Rx's Medication Instructions Recorded Lisinopril-Hctz 20-25 mg 1 tab PO DAILY #0 08/21/18 [Zestoretic 20-25] ALPRAZolam [Xanax] 2 mg PO BID 3 Days #6 tab 09/06/18 predniSONE 50 mg PO DAILY #5 tablet 04/10/19 Allergies Allergy/AdvReac Type Severity Reaction Status Date / Time dicyclomine [From Bentyl] Allergy Severe Hallucinati Verified 06/01/19 17:47 ons granisetron HCl [From Kytril] Allergy Severe Anaphylaxis Verified 06/01/19 17:47 baclofen Allergy Rash/Hives Verified 06/01/19 17:47 butorphanol tartrate Allergy Rash/Hives Verified 06/01/19 17:47 [From Stadol] ketorolac tromethamine Allergy Rash/Hives Verified 06/01/19 17:47 [From Toradol] meperidine HCl [From Demerol] Allergy Swelling Verified 06/01/19 17:47 pregabalin [From Lyrica] Allergy Unknown Verified 06/01/19 17:47 sulfamethoxazole Allergy Rash/Hives Verified 06/01/19 17:47 [From Bactrim] trimethoprim [From Bactrim] Allergy Rash/Hives Verified 06/01/19 17:47 codeine AdvReac Vomiting & Verified 06/01/19 17:47 Headache methylprednisolone AdvReac Vomiting & Verified 06/01/19 17:47 [From Medrol] Headache Review of Systems ROS Statement: Those systems with pertinent positive or pertinent negative responses have been documented in the HPI. ROS Other: All systems not noted in ROS Statement are negative. Past Medical History Past Medical History: Asthma, Fibromyalgia, GERD/Reflux, Neurologic Disorder, Seizure Disorder, Thyroid Disorder Additional Past Medical History / Comment(s): crohns disease, diverticulosis, ibs, carpal tunnel, anemia, chronic back pain , migraines, pinched nerves, chronic colitis. History of Any Multi-Drug Resistant Organisms: None Reported Past Surgical History: Adenoidectomy, Appendectomy, Cholecystectomy, Orthopedic Surgery, Tonsillectomy Additional Past Surgical History / Comment(s): EGD/colonoscopy, right ankle surgery Past Anesthesia/Blood Transfusion Reactions: No Reported Reaction Additional Past Anesthesia/Blood Transfusion Reaction / Comment(s): hallucinations Past Psychological History: Anxiety, Bipolar, Depression, PTSD Smoking Status: Current every day smoker Past Alcohol Use History: None Reported Past Drug Use History: None Reported - Past Family History Father Family Medical History: Diabetes Mellitus, Hyperlipidemia Mother Family Medical History: Cancer, CVA/TIA, Deep Vein Thrombosis (DVT), Osteoarthritis (OA), Thyroid Disorder Additional Family Medical History / Comment(s): Extensive tattoos throughout [place] General Exam Limitations: no limitations General appearance: alert, in no apparent distress Head exam: Present: atraumatic, normocephalic, normal inspection Eye exam: Present: normal appearance, PERRL, EOMI. Absent: scleral icterus, conjunctival injection, periorbital swelling ENT exam: Present: normal exam, mucous membranes moist Neck exam: Present: normal inspection. Absent: tenderness, meningismus, lymphadenopathy Respiratory exam: Present: normal lung sounds bilaterally. Absent: respiratory distress, wheezes, rales, rhonchi, stridor Cardiovascular Exam: Present: regular rate, normal rhythm, normal heart sounds. Absent: systolic murmur, diastolic murmur, rubs, gallop, clicks GI/Abdominal exam: Present: soft, tenderness (Diffuse), normal bowel sounds. Absent: distended, guarding, rebound, rigid Extremities exam: Present: normal inspection, full ROM, normal capillary refill. Absent: tenderness, pedal edema, joint swelling, calf tenderness Back exam: Present: normal inspection Neurological exam: Present: alert, oriented X3, CN II-XII intact Psychiatric exam: Present: normal affect, normal mood Skin exam: Present: warm, dry, intact, normal color. Absent: rash Course Vital Signs 06/01/19 17:42 Temperature 98.3 F Pulse Rate 80 Respiratory 18 Rate Blood Pressure 131/95 O2 Sat by Pulse 98 Oximetry - Reevaluation(s) Reevaluation #1: 06/01/19 20:09 Medical records reviewed Reevaluation #2: 06/01/19 20:09 Patient is in for pain medication no pain after repeat medication is well- controlled Reevaluation #3: 06/01/19 20:09 Patient informed of results discharged home Medical Decision Making - Medical Decision Making 34 female here with abdominal pain on the stool no blood thinners, lab values are normal vital signs are normal and stable, patient has no bloody stool here in the ER pain is controlled patient can be discharged home - Lab Data Result diagrams: 06/01/19 17:50 06/01/19 17:50 Lab Results 06/01/19 06/01/19 06/01/19 Range/Units 17:50 17:50 17:50 WBC 12.5 H (3.8-10.6) k/uL RBC 3.92 (3.80-5.40) m/uL Hgb 11.0 L (11.4-16.0) gm/dL Hct 34.8 (34.0-46.0) % MCV 88.8 (80.0-100.0) fL MCH 28.2 (25.0-35.0) pg MCHC 31.7 (31.0-37.0) g/dL RDW 16.9 H (11.5-15.5) % Plt Count 590 H (150-450) k/uL Neutrophils % (Manual) 46 % Lymphocytes % (Manual) 51 % Monocytes % (Manual) 2 % Eosinophils % (Manual) 1 % Neutrophils # (Manual) 5.75 (1.3-7.7) k/uL Lymphocytes # (Manual) 6.38 H (1.0-4.8) k/uL Monocytes # (Manual) 0.25 (0-1.0) k/uL Eosinophils # (Manual) 0.13 (0-0.7) k/uL Nucleated RBCs 0 (0-0) /100 WBC Manual Slide Review Performed Polychromasia Present Poikilocytosis (manual Present Anisocytosis Slight Sodium 138 (137-145) mmol/L Potassium 4.2 (3.5-5.1) mmol/L Chloride 112 H (98-107) mmol/L Carbon Dioxide 19 L (22-30) mmol/L Anion Gap 7 mmol/L BUN 5 L (7-17) mg/dL Creatinine 0.73 (0.52-1.04) mg/dL Est GFR (CKD-EPI)AfAm >90 (>60 ml/min/1.73 sqM) Est GFR (CKD-EPI)NonAf >90 (>60 ml/min/1.73 sqM) Glucose 75 (74-99) mg/dL Plasma Lactic Acid Jeremy (0.7-2.0) mmol/L Calcium 8.5 (8.4-10.2) mg/dL Total Bilirubin 0.3 (0.2-1.3) mg/dL AST 20 (14-36) U/L ALT 18 (4-34) U/L Alkaline Phosphatase 77 (38-126) U/L Total Protein 6.5 (6.3-8.2) g/dL Albumin 3.6 (3.5-5.0) g/dL Amylase 65 (30-110) U/L Lipase 30 (23-300) U/L Urine Color Light Yellow Urine Appearance Clear (Clear) Urine pH 6.5 (5.0-8.0) Ur Specific [place] 1.013 (1.001-1.035) Urine Protein Negative (Negative) Urine Glucose (UA) Negative (Negative) Urine Ketones Negative (Negative) Urine Blood Negative (Negative) Urine Nitrite Negative (Negative) Urine Bilirubin Negative (Negative) Urine Urobilinogen <2.0 (<2.0) mg/dL Ur Leukocyte Esterase Negative (Negative) 06/01/19 Range/Units 17:50 WBC (3.8-10.6) k/uL RBC (3.80-5.40) m/uL Hgb (11.4-16.0) gm/dL Hct (34.0-46.0) % MCV (80.0-100.0) fL MCH (25.0-35.0) pg MCHC (31.0-37.0) g/dL RDW (11.5-15.5) % Plt Count (150-450) k/uL Neutrophils % (Manual) % Lymphocytes % (Manual) % Monocytes % (Manual) % Eosinophils % (Manual) % Neutrophils # (Manual) (1.3-7.7) k/uL Lymphocytes # (Manual) (1.0-4.8) k/uL Monocytes # (Manual) (0-1.0) k/uL Eosinophils # (Manual) (0-0.7) k/uL Nucleated RBCs (0-0) /100 WBC Manual Slide Review Polychromasia Poikilocytosis (manual Anisocytosis Sodium (137-145) mmol/L Potassium (3.5-5.1) mmol/L Chloride (98-107) mmol/L Carbon Dioxide (22-30) mmol/L Anion Gap mmol/L BUN (7-17) mg/dL Creatinine (0.52-1.04) mg/dL Est GFR (CKD-EPI)AfAm (>60 ml/min/1.73 sqM) Est GFR (CKD-EPI)NonAf (>60 ml/min/1.73 sqM) Glucose (74-99) mg/dL Plasma Lactic Acid Jeremy 1.5 (0.7-2.0) mmol/L Calcium (8.4-10.2) mg/dL Total Bilirubin (0.2-1.3) mg/dL AST (14-36) U/L ALT (4-34) U/L Alkaline Phosphatase (38-126) U/L Total Protein (6.3-8.2) g/dL Albumin (3.5-5.0) g/dL Amylase (30-110) U/L Lipase (23-300) U/L Urine Color Urine Appearance (Clear) Urine pH (5.0-8.0) Ur Specific [place] (1.001-1.035) Urine Protein (Negative) Urine Glucose (UA) (Negative) Urine Ketones (Negative) Urine Blood (Negative) Urine Nitrite (Negative) Urine Bilirubin (Negative) Urine Urobilinogen (<2.0) mg/dL Ur Leukocyte Esterase (Negative) - Radiology Data Radiology results: report reviewed (CT abdomen and pelvis shows no evidence of inflammatory bowel disease), image reviewed Disposition Clinical Impression: Abdominal pain, Crohns disease Disposition: HOME SELF-CARE Condition: Good Instructions (If sedation given, give patient instructions): Abdominal Pain (ED) Is patient prescribed a controlled substance at d/c from ED?: No Referrals: Joan Meeks MD [Primary Care Provider] - 1-2 days
[2019-06-01] MEDS ORDERED: PANTOPRAZOLE 40 MG/10 ML VIAL IVP STA (18:08)
[2019-06-01] MEDS ORDERED: MORPHINE SULFATE 4 MG/ML SYRINGE IV STA (18:08)
[2019-06-01] MEDS ORDERED: ONDANSETRON 4 MG/2 ML VIAL IVP STA (18:08)
[2019-06-01] MEDS ORDERED: SODIUM CHLORIDE 0.9% 1,000 ML IV STA ×3 (18:08→19:32)
[2019-06-01 18:40] LABS: Appearance,Urine Clear (Clear); Bilirubin,Urine Negative (Negative); Blood,Urine Negative (Negative); Color,Urine Light Yellow; Glucose,Urine (UA) Negative (Negative); Ketones,Urine Negative (Negative); Leukocyte Esterase,Urine Negative (Negative); Nitrite,Urine Negative (Negative); PH, Urine 6.5 (5.0-8.0); Protein,Urine Negative (Negative); Specific Gravity,Urine 1.013 (1.001-1.035); Urobilinogen,Urine <2.0 mg/dL (<2.0)
[2019-06-01 18:46] LABS: Anisocytosis Slight; HCT 34.8 % (34.0-46.0); MCH 28.2 pg (25.0-35.0); MCHC 31.7 g/dL (31.0-37.0); MCV 88.8 fL (80.0-100.0); Mean Platelet Volume 7.5; Platelet Count 590 k/uL (150-450); RBC 3.92 m/uL (3.80-5.40); RDW 16.9 % (11.5-15.5); WBC 12.5 k/uL (3.8-10.6)
[2019-06-01 18:53] LABS: ALT 18 U/L (4-34); AST 20 U/L (14-36); African American GFR (CKD) >90 (>60 ml/min/1.73 sqM); Albumin 3.6 g/dL (3.5-5.0); Alkaline Phosphatase 77 U/L (38-126); Amylase 65 U/L (30-110); Anion Gap 7 mmol/L; Blood Urea Nitrogen 5 mg/dL (7-17); Calcium 8.5 mg/dL (8.4-10.2); Carbon Dioxide 19 mmol/L (22-30); Chloride 112 mmol/L (98-107); Glucose 75 mg/dL (74-99); Non-African American GFR(CKD) >90 (>60 ml/min/1.73 sqM); Potassium 4.2 mmol/L (3.5-5.1); Sodium 138 mmol/L (137-145); Total Bilirubin 0.3 mg/dL (0.2-1.3); Total Protein 6.5 g/dL (6.3-8.2)
[2019-06-01 19:10] LABS: Eosinophils # (M) 0.13 k/uL (0-0.7); Lymphocytes # (M) 6.38 k/uL (1.0-4.8); Monocytes # (M) 0.25 k/uL (0-1.0); Neutrophils # (M) 5.75 k/uL (1.3-7.7); Neutrophils % (M) 46 %; Nucleated Red Blood Cells 0 /100 WBC (0-0); Poikilocytosis (M) Present; Polychromasia Present; Total Cells Counted 100
--- NOTE | 2019-06-01 19:25 | CT ---
EXAMINATION TYPE: CT abdomen pelvis w con DATE OF EXAM: 06/01/2019 COMPARISON: May 14, 2018 August 07, 2018 HISTORY: Abdominal pain CT DLP: mGycm Automated exposure control for dose reduction was used. CONTRAST: Performed , patient injected with mL of . The contrast was Isovue 100 mL. FINDINGS: Lung bases are clear of consolidation. There is no pleural effusion. Heart size is normal. There is n o pericardial effusion. There are clips from cholecystectomy. Liver shows no focal defect. There are no dilated ducts. Spleen and pancreas appear normal. Stomach appears normal. There is 2 cm rounded left adrenal mass unchanged. Kidneys show satisfactory contrast opacification. There is no hydronephrosis. Ureters are not dilated. There is no retroperitoneal adenopathy. Bladder distends smoothly. Uterus is anteverted. There is 2 cm cyst on the right ovary. There is no inguinal hernia. There is no free fluid in the pelvis. There is no mesenteric edema. There is no ascites or free air. There is no sign of a bowel obstructio n. Lumbar vertebra have normal spacing and alignment. Bony pelvis is intact. Appendix is not seen. Th ere is no sign of thickened appendix. IMPRESSION: Left adrenal mass unchanged. No evidence of any significant inflammatory bowel disease.
[2019-06-01] MEDS ORDERED: HYDROmorphone 1 MG/ML 1 ML SYRINGE IVP STA (19:42)
[2019-06-01 20:32] VITALS: BP 154/124; PULSE 94; TEMP 98.4
[2019-06-01] MEDS ORDERED: ACET/COD 300 MG/30 MG STARTER PACK 6 TAB BTL PO STA (20:46)
== END 2019-06-01 20:34 | disposition home or self-care (01) ==
LOC: EC 17:42
DX: K50.90 Crohn's disease, unspecified, without complications (principal); R11.0 Nausea; J45.909 Unspecified asthma, uncomplicated; M79.7 Fibromyalgia; K21.9 Gastro-esophageal reflux disease without esophagitis; G40.909 Epilepsy, unspecified, not intractable, without status epilepticus; E07.9 Disorder of thyroid, unspecified; D64.9 Anemia, unspecified; G89.29 Other chronic pain; F31.9 Bipolar disorder, unspecified; F41.9 Anxiety disorder, unspecified; F43.10 Post-traumatic stress disorder, unspecified; F17.200 Nicotine dependence, unspecified, uncomplicated; Z88.2 Allergy status to sulfonamides; Z88.5 Allergy status to narcotic agent; Z88.6 Allergy status to analgesic agent; Z88.8 Allergy status to other drugs, medicaments and biological substances; Z79.51 Long term (current) use of inhaled steroids; Z79.890 Hormone replacement therapy; Z79.899 Other long term (current) drug therapy; Z86.69 Personal history of other diseases of the nervous system and sense organs; Z90.49 Acquired absence of other specified parts of digestive tract; Z53.8 Procedure and treatment not carried out for other reasons
CPT/HCPCS: 99285; 96374; 96375 ×3; 96361 ×2; 36415; 80053; 82150; 83605; 83690; 85025; 81003; 74177; J2270; J2405; J1170; C9113; Q9967

== ENCOUNTER 2019-08-23 21:44 | Emergency (ER) | payer OTHER ==
[2019-08-23] MEDS ORDERED: SODIUM CHLORIDE 0.9% 1,000 ML IV STA (22:39)
[2019-08-23] MEDS ORDERED: HYDROmorphone 1 MG/ML 1 ML SYRINGE IVP STA (22:39)
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
[2019-08-23 23:27] LABS: Anisocytosis Slight; Basophils # (A) 0.1 k/uL (0-0.2); Basophils % (A) 0 %; Eosinophils # (A) 0.3 k/uL (0-0.7); Eosinophils % (A) 2 %; HGB 10.6 gm/dL (11.4-16.0); Hypochromasia Moderate; Lymphocytes # (A) 4.7 k/uL (1.0-4.8); Lymphocytes % (A) 37 %; MCH 26.5 pg (25.0-35.0); MCHC 31.1 g/dL (31.0-37.0); Mean Platelet Volume 7.2; Monocytes # (A) 0.7 k/uL (0-1.0); Monocytes % (A) 6 %; Neutrophils # (A) 6.5 k/uL (1.3-7.7); Neutrophils % (A) 52 %; Platelet Count 502 k/uL (150-450); RBC 3.99 m/uL (3.80-5.40); RDW 17.2 % (11.5-15.5); WBC 12.7 k/uL (3.8-10.6)
[2019-08-23 23:28] LABS: Appearance,Urine Clear (Clear); Bilirubin,Urine Negative (Negative); Blood,Urine Negative (Negative); Color,Urine Light Yellow; Glucose,Urine (UA) Negative (Negative); Ketones,Urine Negative (Negative); Leukocyte Esterase,Urine Negative (Negative); Nitrite,Urine Negative (Negative); PH, Urine 6.5 (5.0-8.0); Protein,Urine Negative (Negative); Specific Gravity,Urine 1.006 (1.001-1.035); Urobilinogen,Urine <2.0 mg/dL (<2.0)
[2019-08-23 23:36] LABS: ALT 10 U/L (4-34); AST 14 U/L (14-36); African American GFR (CKD) >90 (>60 ml/min/1.73 sqM); Albumin 3.8 g/dL (3.5-5.0); Alkaline Phosphatase 72 U/L (38-126); Anion Gap 8 mmol/L; Blood Urea Nitrogen 4 mg/dL (7-17); Calcium 8.8 mg/dL (8.4-10.2); Carbon Dioxide 22 mmol/L (22-30); Chloride 106 mmol/L (98-107); Glucose 85 mg/dL (74-99); Non-African American GFR(CKD) >90 (>60 ml/min/1.73 sqM); Potassium 3.8 mmol/L (3.5-5.1); Sodium 136 mmol/L (137-145); Total Bilirubin 0.3 mg/dL (0.2-1.3); Total Protein 6.8 g/dL (6.3-8.2)
[2019-08-23] MEDS ORDERED: HYDROmorphone 0.5 MG/0.5 ML SYRINGE IVP STA (23:56)
--- NOTE | 2019-08-23 23:57 | XR ---
EXAMINATION TYPE: XR KUB DATE OF EXAM: 08/23/2019 COMPARISON: 04/10/2019 HISTORY: Abdominal pain TECHNIQUE: 2 views Upright FINDINGS: There is no sign of intestinal obstruction or pneumoperitoneum. Fecal pattern is normal. [place] ng bases are clear. There are clips from cholecystectomy. There is no evidence of a mass. There are n o pathologic calcifications over the kidneys. Bony structures appear intact. IMPRESSION: Nonacute abdomen. No change.
[2019-08-24] MEDS ORDERED: HYDROmorphone 0.5 MG/0.5 ML SYRINGE IVP STA (00:57)
[2019-08-24 01:25] VITALS: RESP 17
[2019-08-24 01:47] VITALS: BP 120/87; PULSE 90; TEMP 98.6
== END 2019-08-24 01:52 | disposition home or self-care (01) ==
LOC: EC 21:44
DX: G89.29 Other chronic pain (principal); R10.9 Unspecified abdominal pain; D72.829 Elevated white blood cell count, unspecified; F41.9 Anxiety disorder, unspecified; F31.9 Bipolar disorder, unspecified; K21.9 Gastro-esophageal reflux disease without esophagitis; G40.909 Epilepsy, unspecified, not intractable, without status epilepticus; J45.909 Unspecified asthma, uncomplicated; F17.200 Nicotine dependence, unspecified, uncomplicated; Z79.890 Hormone replacement therapy; Z79.51 Long term (current) use of inhaled steroids; Z79.899 Other long term (current) drug therapy; Z88.8 Allergy status to other drugs, medicaments and biological substances; Z88.5 Allergy status to narcotic agent; Z88.1 Allergy status to other antibiotic agents; Z88.2 Allergy status to sulfonamides; Z90.89 Acquired absence of other organs; Z90.49 Acquired absence of other specified parts of digestive tract
CPT/HCPCS: 99285; 96374; 96376 ×2; 96361 ×2; 36415; 80053; 83605; 83690; 85025; 81003; 81025; 74018; J1170 ×2

== ENCOUNTER 2019-11-16 15:00 | Inpatient (IN) | payer OTHER ==
[2019-11-16] MEDS ORDERED: ALBUTEROL NEBULIZED 2.5 MG/3 ML INHALATION STA (15:19)
[2019-11-16] MEDS ORDERED: IPRATROPIUM 0.5 MG/2.5 ML NEBU INHALATION STA (15:19)
[2019-11-16] MEDS ORDERED: methylPREDNISolone SOD SUCCI 125 MG/2 ML VIAL IV STA (15:19)
[2019-11-16] MEDS ORDERED: SODIUM CHLORIDE 0.9% 1,000 ML IV STA ×2 (15:19)
--- NOTE | 2019-11-16 15:19 | ED ---
Allergic Reaction HPI - General Chief complaint: Allergic Reaction Stated complaint: SOB Time Seen by Provider: 11/16/19 15:15 Source: patient, RN notes reviewed, old records reviewed Mode of arrival: wheelchair Limitations: no limitations - History of Present Illness Initial Comments: Physical 34-year-old female for shortness of breath history of asthma persists or new psychiatric medication and has had increasing shortness of breath correlating with starting new medication. She feels wheezy continues to smoke and has history of asthma but no prior ER visits or hospitalizations for asthma. No fevers no chest pain MD Complaint: allergic reaction (Possible medication reaction) -: days(s) Exposure: medication Symptoms: difficulty breathing, hoarseness Severity: moderate Treatment Prior to Arrival: none Previous Allergy History: none - Related Data Home Medications Medication Instructions Recorded Confirmed Sertraline HCl [Zoloft] 200 mg PO DAILY 09/24/13 09/20/18 Ranitidine HCl [Zantac] 150 mg PO BID 12/26/15 09/20/18 Divalproex Sodium [Depakote] 2,000 mg PO BID 04/30/16 09/20/18 QUEtiapine [SEROquel] 500 mg PO HS 04/22/17 09/20/18 Gabapentin [Neurontin] 800 mg PO TID 10/11/17 09/20/18 Ferrous Sulfate [Iron (65 MG 325 mg PO DAILY 01/29/18 09/20/18 Elemental)] Propranolol [Inderal] 40 mg PO TID 01/29/18 09/20/18 Simvastatin [Zocor] 20 mg PO HS 01/29/18 09/20/18 Beclomethasone Dipropionate [Qvar 2 puff INHALATION RT-DAILY 02/07/18 09/20/18 80 mcg] Amitriptyline HCl [Elavil] 50 mg PO DAILY 08/07/18 09/20/18 Levothyroxine Sodium [Synthroid] 137 mcg PO DAILY 08/07/18 09/20/18 Loratadine [Claritin] 10 mg PO DAILY 08/07/18 09/20/18 Montelukast [Singulair] 10 mg PO DAILY 08/07/18 09/20/18 QUEtiapine [SEROquel] 100 mg PO BID@0900,1700 08/07/18 09/21/18 Previous Rx's Medication Instructions Recorded Lisinopril-Hctz 20-25 mg 1 tab PO DAILY #0 08/21/18 [Zestoretic 20-25] ALPRAZolam [Xanax] 2 mg PO BID 3 Days #6 tab 09/06/18 predniSONE 50 mg PO DAILY #5 tablet 04/10/19 Allergies Allergy/AdvReac Type Severity Reaction Status Date / Time dicyclomine [From Bentyl] Allergy Severe Hallucinati Verified 08/23/19 22:03 ons granisetron HCl [From Kytril] Allergy Severe Anaphylaxis Verified 08/23/19 22:03 baclofen Allergy Rash/Hives Verified 08/23/19 22:03 butorphanol tartrate Allergy Rash/Hives Verified 08/23/19 22:03 [From Stadol] ketorolac tromethamine Allergy Rash/Hives Verified 08/23/19 22:03 [From Toradol] meperidine HCl [From Demerol] Allergy Swelling Verified 08/23/19 22:03 pregabalin [From Lyrica] Allergy Unknown Verified 08/23/19 22:03 risperidone [From Risperdal] Allergy Dyspnea Verified 11/16/19 15:09 sulfamethoxazole Allergy Rash/Hives Verified 08/23/19 22:03 [From Bactrim] trimethoprim [From Bactrim] Allergy Rash/Hives Verified 08/23/19 22:03 codeine AdvReac Vomiting & Verified 08/23/19 22:03 Headache methylprednisolone AdvReac Vomiting & Verified 08/23/19 22:03 [From Medrol] Headache Review of Systems ROS Statement: Those systems with pertinent positive or pertinent negative responses have been documented in the HPI. ROS Other: All systems not noted in ROS Statement are negative. Past Medical History Past Medical History: Asthma, Fibromyalgia, GERD/Reflux, Neurologic Disorder, Seizure Disorder, Thyroid Disorder Additional Past Medical History / Comment(s): crohns disease, diverticulosis, ibs, carpal tunnel, anemia, chronic back pain , migraines, pinched nerves, chronic colitis. History of Any Multi-Drug Resistant Organisms: None Reported Past Surgical History: Adenoidectomy, Appendectomy, Cholecystectomy, Orthopedic Surgery, Tonsillectomy Additional Past Surgical History / Comment(s): EGD/colonoscopy, right ankle surgery Past Anesthesia/Blood Transfusion Reactions: No Reported Reaction Additional Past Anesthesia/Blood Transfusion Reaction / Comment(s): hallucinations Past Psychological History: Anxiety, Bipolar, Depression, PTSD Past Alcohol Use History: None Reported Past Drug Use History: None Reported - Past Family History Father Family Medical History: Diabetes Mellitus, Hyperlipidemia Mother Family Medical History: Cancer, CVA/TIA, Deep Vein Thrombosis (DVT), Osteoarthritis (OA), Thyroid Disorder Additional Family Medical History / Comment(s): Extensive tattoos throughout body General Exam Limitations: no limitations General appearance: alert, in no apparent distress Head exam: Present: atraumatic, normocephalic, normal inspection Eye exam: Present: normal appearance, PERRL, EOMI. Absent: scleral icterus, conjunctival injection, periorbital swelling ENT exam: Present: normal exam, mucous membranes moist Neck exam: Present: normal inspection. Absent: tenderness, meningismus, lymphadenopathy Respiratory exam: Present: wheezes, accessory muscle use, decreased breath sounds, prolonged expiratory. Absent: respiratory distress, rales, rhonchi, st ridor Cardiovascular Exam: Present: normal rhythm, tachycardia, normal heart sounds. Absent: systolic murmur, diastolic murmur, rubs, gallop, clicks GI/Abdominal exam: Present: soft, normal bowel sounds. Absent: distended, tenderness, guarding, rebound, rigid Extremities exam: Present: normal inspection, full ROM, normal capillary refill. Absent: tenderness, pedal edema, joint swelling, calf tenderness Back exam: Present: normal inspection Neurological exam: Present: alert, oriented X3, CN II-XII intact Psychiatric exam: Present: normal affect, normal mood Skin exam: Present: warm, dry, intact, normal color. Absent: rash Course Vital Signs 11/16/19 11/16/19 11/16/19 15:04 15:44 16:01 Temperature 98.7 F Pulse Rate 111 H 96 98 Respiratory 22 Rate Blood Pressure 150/79 O2 Sat by Pulse 87 L Oximetry - Reevaluation(s) Reevaluation #1: 11/16/19 16:14 Medical records reviewed Reevaluation #2: 11/16/19 16:14 Patient does have improved breathing after breathing treatment oxygenation has normalized Reevaluation #3: 11/16/19 16:43 Patient is informed of results of findings, need for hospitalization, she is agreeable - Consultations Consultation #1: Spoke with sound will admit this patient Medical Decision Making - Medical Decision Making 34 female DF for evaluation patient Geremias with 3-4 days of worsening shortness of breath patient does have pulmonary for trace on x-ray we'll treat for pneumonia, admitted for breathing treatments and monitoring of pulse ox - Lab Data Result diagrams: 11/16/19 15:32 11/16/19 15:32 Lab Results 11/16/19 11/16/19 11/16/19 Range/Units 15:32 15:32 15:32 WBC 12.9 H (3.8-10.6) k/uL RBC 3.48 L (3.80-5.40) m/uL Hgb 9.2 L (11.4-16.0) gm/dL Hct 29.0 L (34.0-46.0) % MCV 83.2 (80.0-100.0) fL MCH 26.3 (25.0-35.0) pg MCHC 31.6 (31.0-37.0) g/dL RDW 19.9 H (11.5-15.5) % Plt Count 341 (150-450) k/uL Neutrophils % 72 % Lymphocytes % 16 % Monocytes % 10 % Eosinophils % 1 % Basophils % 0 % Neutrophils # 9.3 H (1.3-7.7) k/uL Lymphocytes # 2.0 (1.0-4.8) k/uL Monocytes # 1.3 H (0-1.0) k/uL Eosinophils # 0.1 (0-0.7) k/uL Basophils # 0.0 (0-0.2) k/uL Hypochromasia Slight Anisocytosis Slight Microcytosis Slight PT 9.5 (9.0-12.0) sec INR 0.9 (<1.2) APTT 25.9 (22.0-30.0) sec Sodium 132 L (137-145) mmol/L Potassium 4.1 (3.5-5.1) mmol/L Chloride 100 (98-107) mmol/L Carbon Dioxide 23 (22-30) mmol/L Anion Gap 9 mmol/L BUN 8 (7-17) mg/dL Creatinine 0.71 (0.52-1.04) mg/dL Est GFR (CKD-EPI)AfAm >90 (>60 ml/min/1.73 sqM) Est GFR (CKD-EPI)NonAf >90 (>60 ml/min/1.73 sqM) Glucose 112 H (74-99) mg/dL Plasma Lactic Acid Jeremy (0.7-2.0) mmol/L Calcium 8.3 L (8.4-10.2) mg/dL Magnesium 1.8 (1.6-2.3) mg/dL Total Bilirubin 0.3 (0.2-1.3) mg/dL AST 32 (14-36) U/L ALT 10 (4-34) U/L Alkaline Phosphatase 86 (38-126) U/L Troponin I (0.000-0.034) ng/mL NT-Pro-B Natriuret Pep pg/mL Total Protein 6.0 L (6.3-8.2) g/dL Albumin 3.1 L (3.5-5.0) g/dL 11/16/19 11/16/19 11/16/19 Range/Units 15:32 15:32 15:32 WBC (3.8-10.6) k/uL RBC (3.80-5.40) m/uL Hgb (11.4-16.0) gm/dL Hct (34.0-46.0) % MCV (80.0-100.0) fL MCH (25.0-35.0) pg MCHC (31.0-37.0) g/dL RDW (11.5-15.5) % Plt Count (150-450) k/uL Neutrophils % % Lymphocytes % % Monocytes % % Eosinophils % % Basophils % % Neutrophils # (1.3-7.7) k/uL Lymphocytes # (1.0-4.8) k/uL Monocytes # (0-1.0) k/uL Eosinophils # (0-0.7) k/uL Basophils # (0-0.2) k/uL Hypochromasia Anisocytosis Microcytosis PT (9.0-12.0) sec INR (<1.2) APTT (22.0-30.0) sec Sodium (137-145) mmol/L Potassium (3.5-5.1) mmol/L Chloride (98-107) mmol/L Carbon Dioxide (22-30) mmol/L Anion Gap mmol/L BUN (7-17) mg/dL Creatinine (0.52-1.04) mg/dL Est GFR (CKD-EPI)AfAm (>60 ml/min/1.73 sqM) Est GFR (CKD-EPI)NonAf (>60 ml/min/1.73 sqM) Glucose (74-99) mg/dL Plasma Lactic Acid Jeremy 1.9 (0.7-2.0) mmol/L Calcium (8.4-10.2) mg/dL Magnesium (1.6-2.3) mg/dL Total Bilirubin (0.2-1.3) mg/dL AST (14-36) U/L ALT (4-34) U/L Alkaline Phosphatase (38-126) U/L Troponin I 0.023 (0.000-0.034) ng/mL NT-Pro-B Natriuret Pep 8190 pg/mL Total Protein (6.3-8.2) g/dL Albumin (3.5-5.0) g/dL - EKG Data -: EKG Interpreted by Me (EKG is sinus of 98 HI 148 QRS 74 QTc 449) - Radiology Data Radiology results: report reviewed (Chest x-ray shows bilateral infiltrates), image reviewed Disposition Clinical Impression: Allergic reaction, Leukocytosis, Hypoxia, Asthma exacerbation, Community acquired pneumonia Narrative: r/o COVID Disposition: ADMITTED IP TO THIS HOSP Condition: Fair Is patient prescribed a controlled substance at d/c from ED?: No Referrals: Pedro Isidro, PAC [Primary Care Provider] - 1-2 days
[2019-11-16 15:48] LABS: Anisocytosis Slight; Basophils % (A) 0 %; Eosinophils # (A) 0.1 k/uL (0-0.7); Eosinophils % (A) 1 %; HGB 9.2 gm/dL (11.4-16.0); Hypochromasia Slight; Lymphocytes % (A) 16 %; MCH 26.3 pg (25.0-35.0); MCHC 31.6 g/dL (31.0-37.0); MCV 83.2 fL (80.0-100.0); Mean Platelet Volume 7.6; Microcytosis Slight; Monocytes # (A) 1.3 k/uL (0-1.0); Monocytes % (A) 10 %; Neutrophils # (A) 9.3 k/uL (1.3-7.7); Neutrophils % (A) 72 %; Platelet Count 341 k/uL (150-450); RBC 3.48 m/uL (3.80-5.40); RDW 19.9 % (11.5-15.5); WBC 12.9 k/uL (3.8-10.6)
[2019-11-16 16:00] LABS: INR 0.9 (<1.2); Partial Thromboplastin Time 25.9 sec (22.0-30.0); Prothrombin Time 9.5 sec (9.0-12.0)
[2019-11-16 16:06] LABS: ALT 10 U/L (4-34); AST 32 U/L (14-36); African American GFR (CKD) >90 (>60 ml/min/1.73 sqM); Albumin 3.1 g/dL (3.5-5.0); Alkaline Phosphatase 86 U/L (38-126); Anion Gap 9 mmol/L; Blood Urea Nitrogen 8 mg/dL (7-17); Calcium 8.3 mg/dL (8.4-10.2); Carbon Dioxide 23 mmol/L (22-30); Chloride 100 mmol/L (98-107); Glucose 112 mg/dL (74-99); Magnesium 1.8 mg/dL (1.6-2.3); Non-African American GFR(CKD) >90 (>60 ml/min/1.73 sqM); Potassium 4.1 mmol/L (3.5-5.1); Sodium 132 mmol/L (137-145); Total Bilirubin 0.3 mg/dL (0.2-1.3)
[2019-11-16] MEDS ORDERED: DEXAMETHASONE SOD PHOSPHATE 10 MG/ML 1 ML VIAL IV STA (16:06)
--- NOTE | 2019-11-16 16:28 | XR ---
EXAMINATION TYPE: XR chest 2V DATE OF EXAM: 11/16/2019 COMPARISON: 09/20/2018 HISTORY: 34 year-old female shortness of breath, difficulty breathing TECHNIQUE: PA and lateral views FINDINGS: Heart normal size. Aorta within normal limits. Increased interstitial and patchy mid and lower lung d ensities. No pleural effusion. IMPRESSION: Interstitial and patchy opacities mid and lower lungs. Interstitial pneumonitis, atypical infections, and aspiration are some differential considerations. Further clinical correlation recommended.
[2019-11-16] MEDS ORDERED: AZITHROMYCIN 500 MG in SODIUM CHLORIDE 0.9% 250 ML IVPB STA (16:57)
[2019-11-16] MEDS ORDERED: MORPHINE SULFATE 4 MG/ML SYRINGE IVP PRN (16:58)
[2019-11-16] MEDS ORDERED: KETOROLAC 15 MG/ML 1 ML VIAL IVP STA (16:58)
[2019-11-16] MEDS ORDERED: MORPHINE SULFATE 4 MG/ML SYRINGE IVP STA (16:58)
[2019-11-16] MEDS ORDERED: LORazepam 2 MG/ML INJ IV STA (17:27)
--- NOTE | 2019-11-16 18:00 | ECHOF ---
Referral Reason:chf MEASUREMENTS -------- HEIGHT: 167.6 cm WEIGHT: 83.9 kg BP: 150/70 RVIDd: 2.8 cm (< 3.3) IVSd: 1.2 cm (0.6 - 1.1) LVIDd: 4.3 cm (3.9 - 5.3) LVPWd: 1.2 cm (0.6 - 1.1) EDV(Teich): 85 ml IVSs: 1.9 cm LVIDs: 2.9 cm LVPWs: 1.8 cm %IVS Thck: 56 % ESV(Teich): 32 ml EF(Teich): 62 % %FS: 33 % SV(Teich): 53 ml LA Diam: 3.3 cm (2.7 - 3.8) IVC: 2.2 cm Ao Diam: 3.3 cm (2.0 - 3.7) AV Cusp: 2.4 cm (1.5 - 2.6) MV EXCURSION: 17.614 mm (> 18.000) MV EF SLOPE: 61 mm/s (70 - 150) EPSS: 0.5 cm MV E Kalen: 1.04 m/s MV DecT: 251 ms MV Dec Brantley: 4.2 m/s MV A Kalen: 0.88 m/s MV E/A Ratio: 1.18 MV PHT: 73 ms AV Vmax: 1.42 m/s AV maxP.10 mmHg TR Vmax: 2.23 m/s TR maxP.92 mmHg RAP: 5.00 mmHg RVSP: 24.92 mmHg FINDINGS -------- Sinus rhythm. This was a technically good study. The left ventricular size is normal. Left ventricular wall thickness is normal. Overall left vent ricular systolic function is normal with, an EF between 65 - 70 %. The right ventricle is normal in size. The left atrial size is normal. The right atrium is normal in size. Interatrial and interventricular septum intact. The aortic valve is trileaflet and appears structurally normal. There is trace mitral regurgitation. Mild tricuspid regurgitation present. Right ventricular systolic pressure is normal at < 35 mmHg. Trace/mild (physiologic) pulmonic regurgitation. The aortic root size is normal. Normal inferior vena cava with normal inspiratory collapse consistent with estimated right atrial pre ssure of 5 mmHg. There is no pericardial effusion. CONCLUSIONS -------- 1. The left ventricular size is normal. 2. Left ventricular wall thickness is normal. 3. Overall left ventricular systolic function is normal with, an EF between 65 - 70 %. 4. There is trace mitral regurgitation. 5. Mild tricuspid regurgitation present. 6. Trace/mild (physiologic) pulmonic regurgitation. 7. There is no pericardial effusion. [employer]: Marlene Hector RDCS
[2019-11-16 18:07] LABS: C Reactive Protein 297.6 mg/L (<10.0)
[2019-11-16] MEDS: INSULIN ASPART (NovoLOG) 100 UNIT/ML VIAL SQ SCH ×3 (18:26→22:06)
[2019-11-16] MEDS: ONDANSETRON 4 MG/2 ML VIAL IVP PRN (19:46)
[2019-11-16] MEDS ORDERED: IPRATROPIUM-ALBUTEROL 3 ML NEB INHALATION SCH (20:00)
[2019-11-16 21:21] LABS: Glucose,Whole Blood 153 mg/dL (75-99)
--- NOTE | 2019-11-16 21:25 | P.HPIM ---
History of Present Illness H&P Date: 11/16/19 The patient is a 34-year-old female with a PMH of mild intermittent asthma, Crohn's disease, fibromyalgia, and hypothyroidism who presented to the ED with complaints of shortness of breath. The patient reports that she was admitted to a mental health facility for several days in [facility] from where she was discharged on 11/09. She reports that the following day, she developed gradually worsening shortness of breath with decreased exercise tolerance. The patient notes that her dyspnea is so severe that she is unable to ambulate in the house without difficulty. She reports that this is unusual for her since her asthma is pretty mild and she does not use daily inhalers. She did report an increase in her dose of Risperdal during the mental health hospitalization, which she subsequently stopped 2 days following discharge. She also reports a cough productive of whitish phlegm over the past 2 days. Denied fever, chills, nausea, vomiting, diarrhea, diaphoresis, or chest pain. Reports chronic abdominal pain, unchanged. Denied exposure to any known Covid patients. Reports chronic migraines, unchanged. Reports chronic hand and feet numbness with peripheral neuropathy, unchanged. In the emergency room, laboratory evaluation revealed leukocytosis of 12.9, d-dimer elevated 0.92, troponin I 0.023, proBNP 8190, CRP 297, LDH 1817, and lactic acid 1.9. Chest x-ray was positive for interstitial and patchy opacities mid and lower lungs. The patient was admitted for suspected Covid. EKG revealed normal sinus rhythm at [address]/T-wave changes noted as reviewed by me. At time of interview, the patient had SpO2 of of 90% on 4 L NC. Review of Systems Pertinent positives and negatives as discussed in HPI, a complete review of systems was performed and all other systems are negative. Past Medical History Past Medical History: Asthma, Fibromyalgia, GERD/Reflux, Neurologic Disorder, Seizure Disorder, Thyroid Disorder Additional Past Medical History / Comment(s): crohns disease, diverticulosis, ibs, carpal tunnel, anemia, chronic back pain , migraines, pinched nerves, chr onic colitis. History of Any Multi-Drug Resistant Organisms: None Reported Past Surgical History: Adenoidectomy, Appendectomy, Cholecystectomy, Orthopedic Surgery, Tonsillectomy Additional Past Surgical History / Comment(s): EGD/colonoscopy, right ankle surgery Past Anesthesia/Blood Transfusion Reactions: No Reported Reaction Additional Past Anesthesia/Blood Transfusion Reaction / Comment(s): hallucinations Smoking Status: Current every day smoker - Past Family History Father Family Medical History: Diabetes Mellitus, Hyperlipidemia Mother Family Medical History: Cancer, CVA/TIA, Deep Vein Thrombosis (DVT), Osteoarthritis (OA), Thyroid Disorder Additional Family Medical History / Comment(s): Extensive tattoos throughout body Medications and Allergies Home Medications Medication Instructions Recorded Confirmed Type QUEtiapine [SEROquel] 500 mg PO HS 04/22/17 11/16/19 History Beclomethasone Dipropionate [Qvar 2 puff INHALATION RT-DAILY 02/07/18 11/16/19 History 80 mcg] Levothyroxine Sodium [Synthroid] 137 mcg PO DAILY 08/07/18 11/16/19 History Loratadine [Claritin] 10 mg PO DAILY PRN 08/07/18 11/16/19 History Montelukast [Singulair] 10 mg PO DAILY 08/07/18 11/16/19 History Balsalazide Disodium 2,250 mg PO TID 11/16/19 11/16/19 History Butalbital/Aspirin/Caffeine 1 cap PO BID 11/16/19 11/16/19 History [Loovuitdbq-PZU-Xaiufhlg Cap 50-325-40] Gabapentin [Neurontin] 400 mg PO TID 11/16/19 11/16/19 History LORazepam [Ativan] 1 mg PO BID PRN 11/16/19 11/16/19 History Lansoprazole [Prevacid] 15 mg PO QAM 11/16/19 11/16/19 History Lisinopril-Hctz 20-25 mg 2 tab PO DAILY 11/16/19 11/16/19 History [Zestoretic 20-25] PARoxetine [Paxil] 20 mg PO DAILY 11/16/19 11/16/19 History Phentermine HCl [Adipex-P] 37.5 mg PO DAILY 11/16/19 11/16/19 History Promethazine [Phenergan] 25 - 50 mg PO Q8H PRN 11/16/19 11/16/19 History oxyCODONE-APAP 10-325MG [Percocet 1 tab PO TID 11/16/19 11/16/19 History 10-325 mg] Allergies Allergy/AdvReac Type Severity Reaction Status Date / Time dicyclomine [From Bentyl] Allergy Severe Hallucinati Verified 11/16/19 18:07 ons granisetron HCl [From Kytril] Allergy Severe Anaphylaxis Verified 11/16/19 18:07 baclofen Allergy Rash/Hives Verified 11/16/19 18:07 butorphanol tartrate Allergy Rash/Hives Verified 11/16/19 18:07 [From Stadol] ketorolac tromethamine Allergy Rash/Hives Verified 11/16/19 18:07 [From Toradol] meperidine HCl [From Demerol] Allergy Swelling Verified 11/16/19 18:07 pregabalin [From Lyrica] Allergy Unknown Verified 11/16/19 18:07 risperidone [From Risperdal] Allergy Dyspnea Verified 11/16/19 18:07 sulfamethoxazole Allergy Rash/Hives Verified 11/16/19 18:07 [From Bactrim] trimethoprim [From Bactrim] Allergy Rash/Hives Verified 11/16/19 18:07 codeine AdvReac Vomiting & Verified 11/16/19 18:07 Headache methylprednisolone AdvReac Vomiting & Verified 11/16/19 18:07 [From Medrol] Headache Physical Exam Vitals: Vital Signs Temp Pulse Pulse Resp BP BP Pulse Ox 11/16/19 19:00 98.4 F 104 H 20 104/66 91 L 11/16/19 18:40 99.4 F 80 20 101/61 96 11/16/19 17:55 98.2 F 90 20 123/65 97 11/16/19 16:50 20 11/16/19 16:46 97 20 113/78 98 11/16/19 16:01 98 11/16/19 15:44 96 11/16/19 15:04 98.7 F 111 H 22 150/79 87 L Intake and Output 11/16/19 11/16/19 11/16/19 06:59 14:59 22:59 Other: Weight 83.915 kg General: non toxic, no distress, appears at stated age, overweight Derm: no unusual rashes/lesions no unusual ecchymoses, warm, dry Head: atraumatic, normocephalic, symmetric Eyes: EOMI, no lid lag, anicteric sclera, pupils equal round reactive to light ENT: Nose and ears atraumatic, no thrush, no pharyngeal erythema Neck: No thyromegaly, no cervical lymphadenopathy, trachea midline, supple Mouth: no lip lesion, mucus membranes moist Cardiovascular: S1S2 reg, no murmur, positive posterior tibial pulse bilateral, no edema, capillary refill less than 2 seconds Lungs: Somewhat poor air entry bilaterally, no wheezing, rales, or rhonchi appreciated, no accessory muscle use Abdominal: soft, mild diffuse tenderness to palpation, no guarding, no appreciable organomegaly, normal bowel sounds Ext: no gross muscle atrophy, muscle strength 5 out of 5 in all 4 extremities grossly, no contractures, Neuro: CN II-XI grossly intact, light touch intact all 4 extremities, finger to nose within normal limits, Psych: Alert, oriented, appropriate affect Results CBC & Chem 7: 11/16/19 15:32 11/16/19 15:32 Labs: Abnormal Lab Results - Last 24 Hours (Table) 11/16/19 11/16/19 11/16/19 Range/Units 15:32 15:32 16:44 WBC 12.9 H (3.8-10.6) k/uL RBC 3.48 L (3.80-5.40) m/uL Hgb 9.2 L (11.4-16.0) gm/dL Hct 29.0 L (34.0-46.0) % RDW 19.9 H (11.5-15.5) % Neutrophils # 9.3 H (1.3-7.7) k/uL Monocytes # 1.3 H (0-1.0) k/uL D-Dimer 0.92 H (<0.60) mg/L FEU Sodium 132 L (137-145) mmol/L Glucose 112 H (74-99) mg/dL Calcium 8.3 L (8.4-10.2) mg/dL Lactate Dehydrogenase (313-618) U/L C-Reactive Protein (<10.0) mg/L Total Protein 6.0 L (6.3-8.2) g/dL Albumin 3.1 L (3.5-5.0) g/dL 11/16/19 Range/Units 16:46 WBC (3.8-10.6) k/uL RBC (3.80-5.40) m/uL Hgb (11.4-16.0) gm/dL Hct (34.0-46.0) % RDW (11.5-15.5) % Neutrophils # (1.3-7.7) k/uL Monocytes # (0-1.0) k/uL D-Dimer (<0.60) mg/L FEU Sodium (137-145) mmol/L Glucose (74-99) mg/dL Calcium (8.4-10.2) mg/dL Lactate Dehydrogenase 1817 H (313-618) U/L C-Reactive Protein 297.6 H (<10.0) mg/L Total Protein (6.3-8.2) g/dL Albumin (3.5-5.0) g/dL Assessment and Plan Plan: Shortness of breath, suspicious for Covid pneumonia -Patient qualifies for Remdesevir -- we will initiate and get pulmonary consult for approval -Status post 10 mg of dexamethasone in ED, continue with 6 mg by mouth daily for 10 days -Obtain pro-calcitonin. Continue with azithromycin and ceftriaxone for now pending pro-calcitonin -Hold off on hydroxychloroquine at this time -Lovenox 40 mg subcu daily -Isolation precautions -Supplemental insulin coverage -IV fluids -Supplemental oxygen -Cardiac monitoring -Obtain EKG repeat EKG in a.m. to check QTC Chronic conditions: Crohn's disease, hypothyroidism, hypertension -Hold off on home Balsalazide (derivative of 5-ASA) used for Crohns -Continue with home levothyroxine -Hold off on home antihypertensives (lisinopril/HCTZ) in setting of borderline BP DVT prophylaxis -Lovenox The patient is admitted with an anticipated greater than 2 midnight stay for evaluation of Covid pneumonia CODE STATUS: Full Code Discussed with: Patient Anticipated discharge date: 4-[address]: Home A total of 45 minutes was spent on the care of this complex patient more than 50% of the time was spent in counseling and care coordination.
[2019-11-16] MEDS ORDERED: BALSALAZIDE DISODIUM 750 MG CAPSULE PO SCH (22:00)
[2019-11-16] MEDS: LORazepam 2 MG/ML INJ IV PRN (22:01)
[2019-11-16] MEDS: GABAPENTIN 400 MG CAP PO SCH (22:02)
[2019-11-16] MEDS: oxyCODONE-APAP 10-325MG 1 EACH TAB PO SCH (23:03)
[2019-11-16] MEDS: QUEtiapine 100 MG TAB PO SCH (23:04)
[2019-11-16 23:38] LABS: Ferritin 47.9 ng/mL (10.0-291.0)
[2019-11-17] MEDS ORDERED: methylPREDNISolone SOD SUCCI 125 MG/2 ML VIAL IV SCH
[2019-11-17] MEDS: LORazepam 1 MG TAB PO PRN ×3 (01:05→20:13)
[2019-11-17] MEDS: LEVOTHYROXINE 137 MCG TAB PO SCH (05:42)
[2019-11-17 07:21] LABS: Glucose,Whole Blood 151 mg/dL (75-99)
[2019-11-17] MEDS: INSULIN ASPART (NovoLOG) 100 UNIT/ML VIAL SQ SCH ×4 (08:58→22:37)
[2019-11-17] MEDS ORDERED: LISINOPRIL-HCTZ 20-25 MG 1 EACH TAB PO SCH (09:00)
[2019-11-17] MEDS: ENOXAPARIN 40 MG/0.4 ML SYRINGE SQ SCH (09:04)
[2019-11-17] MEDS: dexAMETHasone 2 MG TAB PO SCH (09:10)
[2019-11-17] MEDS: oxyCODONE-APAP 10-325MG 1 EACH TAB PO SCH (09:10)
[2019-11-17] MEDS: PARoxetine 20 MG TAB PO SCH (09:11)
[2019-11-17] MEDS: PANTOPRAZOLE 40 MG TABLET PO SCH (09:11)
[2019-11-17] MEDS: GABAPENTIN 400 MG CAP PO SCH ×3 (09:11→20:13)
[2019-11-17] MEDS: MONTELUKAST 10 MG TAB PO SCH (09:11)
[2019-11-17] MEDS: LORazepam 2 MG/ML INJ IV PRN (09:20)
[2019-11-17] MEDS: FLUTICASONE 110 MCG INHALER INHALATION SCH ×2 (09:22→19:57)
[2019-11-17] MEDS: ALBUTEROL HFA INHALER INHALATION SCH ×4 (09:22→19:56)
[2019-11-17 10:04] LABS: Anisocytosis Slight; HGB 7.9 gm/dL (11.4-16.0); Hypochromasia Moderate; MCH 26.2 pg (25.0-35.0); MCHC 30.5 g/dL (31.0-37.0); MCV 85.9 fL (80.0-100.0); Mean Platelet Volume 7.3; Platelet Count 302 k/uL (150-450); RBC 3.03 m/uL (3.80-5.40); RDW 19.9 % (11.5-15.5); WBC 11.4 k/uL (3.8-10.6)
[2019-11-17 10:21] LABS: ALT 11 U/L (4-34); AST 25 U/L (14-36); African American GFR (CKD) >90 (>60 ml/min/1.73 sqM); Albumin 2.6 g/dL (3.5-5.0); Alkaline Phosphatase 83 U/L (38-126); Anion Gap 3 mmol/L; Blood Urea Nitrogen 11 mg/dL (7-17); Calcium 7.8 mg/dL (8.4-10.2); Carbon Dioxide 26 mmol/L (22-30); Chloride 105 mmol/L (98-107); Creatine Kinase 40 U/L (30-135); Glucose 106 mg/dL (74-99); LDH 1516 U/L (313-618); Magnesium 2.1 mg/dL (1.6-2.3); Non-African American GFR(CKD) >90 (>60 ml/min/1.73 sqM); Potassium 4.4 mmol/L (3.5-5.1); Sodium 134 mmol/L (137-145); Total Bilirubin 0.1 mg/dL (0.2-1.3); Total Protein 5.2 g/dL (6.3-8.2)
[2019-11-17] MEDS: BUTALB/APAP/CAFF 50-325-40MG TAB PO PRN ×2 (10:28→20:13)
[2019-11-17 10:40] LABS: D-Dimer 0.71 mg/L FEU (<0.60); INR 0.9 (<1.2); Prothrombin Time 9.3 sec (9.0-12.0)
[2019-11-17 11:12] LABS: C Reactive Protein 211.9 mg/L (<10.0)
[2019-11-17 11:24] LABS: Glucose,Whole Blood 129 mg/dL (75-99)
--- NOTE | 2019-11-17 13:49 | P.CNPUL ---
History of Present Illness Consult date: 11/17/19 Reason for consult: dyspnea, other Chief complaint: Shortness of breath, aches and pains History of present illness: 34-year-old white female patient of Dr. Isidro, with a medical history of mild intermittent bronchial asthma, seizure disorder, GERD/reflux, anxiety, bipolar, PTSD, Crohn's disease, who presented to the hospital on 11/16/2019 with complaints of generalized aches and pains, shortness of breath, patient states she was gasping for air, but denied any fever, denied any cough or phlegm production, denied any chest pain or hemoptysis. Patient was recently discharged from a inpatient psychiatric facility where she was hospitalized for 13 days and where she checked involuntarily. She states she was tested for COVID 19 virus there, however results are unknown. Patient is a current smoker. She is on Singulair, Claritin, Qvar for her history of asthma. Denies any nausea vomiting or diarrhea. Chest x-ray was completed in the ER showing interstitial and patchy opacities in the mid and lower lungs consideration for interstitial pneumonitis, atypical infections and aspiration. Pulse ox was 87% on room air, patient was placed on supplemental oxygen which she intermittently takes often desats into the low 80s. Patient is afebrile, hemodynamically stable. No altered mentation. Labs showed white blood cell count of 12.9, hemoglobin of 9.2, fibrinogen was 561, d-dimer was 0.92, sodium is 132, the rest of the electrolytes and renal profile were within normal limits, catheter was 1.9, LFTs were within normal limits, LDH was elevated at 1817, troponins were negative at 0.0-32, CRP was 297, proBNP was 8190, pro-calcitonin was elevated to 0.42. Echocardiogram showed preserved LV function with EF of 65-70%, aortic valve was trileaflet and structurally normal, trace mitral regurg, mild t ricuspid regurg, no evidence of pulmonary hypertension with right-sided pressures less than 35 mmHg. Patient was started on empiric antibiotics in the form of azithromycin and Rocephin, she was given IV Decadron, and started on nebulized bronchodilators, her Covid 19 testing is pending at this time. This morning she continues to require supplemental oxygen currently at 5 L, and her pulse ox is 94% Review of Systems All systems: negative Constitutional: Reports malaise, Denies chills, Denies fever Eyes: denies blurred vision, denies pain Ears, nose, mouth and throat: Denies headache, Denies sore throat Cardiovascular: Denies chest pain, Denies shortness of breath Respiratory: Reports dyspnea, Denies cough Gastrointestinal: Denies abdominal pain, Denies diarrhea, Denies nausea, Denies vomiting Genitourinary: Denies dysuria, Denies hematuria Musculoskeletal: Denies myalgias Integumentary: Denies pruritus, Denies rash Neurological: Denies numbness, Denies weakness Psychiatric: Denies anxiety, Denies depression Endocrine: Denies fatigue, Denies weight change Past Medical History Past Medical History: Asthma, Fibromyalgia, GERD/Reflux, Neurologic Disorder, Seizure Disorder, Thyroid Disorder Additional Past Medical History / Comment(s): crohns disease, diverticulosis, ibs, carpal tunnel, anemia, chronic back pain , migraines, pinched nerves, chronic colitis. History of Any Multi-Drug Resistant Organisms: None Reported Past Surgical History: Adenoidectomy, Appendectomy, Cholecystectomy, Orthopedic Surgery, Tonsillectomy Additional Past Surgical History / Comment(s): EGD/colonoscopy, right ankle surg cherry Past Anesthesia/Blood Transfusion Reactions: No Reported Reaction Additional Past Anesthesia/Blood Transfusion Reaction / Comment(s): hallucinatio ns Smoking Status: Current every day smoker - Past Family History Father Family Medical History: Diabetes Mellitus, Hyperlipidemia Mother Family Medical History: Cancer, CVA/TIA, Deep Vein Thrombosis (DVT), Osteoarthritis (OA), Thyroid Disorder Additional Family Medical History / Comment(s): Extensive tattoos throughout body Medications and Allergies Home Medications Medication Instructions Recorded Confirmed Type QUEtiapine [SEROquel] 500 mg PO HS 04/22/17 11/16/19 History Beclomethasone Dipropionate [Qvar 2 puff INHALATION RT-DAILY 02/07/18 11/16/19 History 80 mcg] Levothyroxine Sodium [Synthroid] 137 mcg PO DAILY 08/07/18 11/16/19 History Loratadine [Claritin] 10 mg PO DAILY PRN 08/07/18 11/16/19 History Montelukast [Singulair] 10 mg PO DAILY 08/07/18 11/16/19 History Balsalazide Disodium 2,250 mg PO TID 11/16/19 11/16/19 History Butalbital/Aspirin/Caffeine 1 cap PO BID 11/16/19 11/16/19 History [Izdclqaxjc-OMS-Mjdwfevf Cap 50-325-40] Gabapentin [Neurontin] 400 mg PO TID 11/16/19 11/16/19 History LORazepam [Ativan] 1 mg PO BID PRN 11/16/19 11/16/19 History Lansoprazole [Prevacid] 15 mg PO QAM 11/16/19 11/16/19 History Lisinopril-Hctz 20-25 mg 2 tab PO DAILY 11/16/19 11/16/19 History [Zestoretic 20-25] PARoxetine [Paxil] 20 mg PO DAILY 11/16/19 11/16/19 History Phentermine HCl [Adipex-P] 37.5 mg PO DAILY 11/16/19 11/16/19 History Promethazine [Phenergan] 25 - 50 mg PO Q8H PRN 11/16/19 11/16/19 History oxyCODONE-APAP 10-325MG [Percocet 1 tab PO TID 11/16/19 11/16/19 History 10-325 mg] Allergies Allergy/AdvReac Type Severity Reaction Status Date / Time dicyclomine [From Bentyl] Allergy Severe Hallucinati Verified 11/16/19 18:07 ons granisetron HCl [From Kytril] Allergy Severe Anaphylaxis Verified 11/16/19 18:07 baclofen Allergy Rash/Hives Verified 11/16/19 18:07 butorphanol tartrate Allergy Rash/Hives Verified 11/16/19 18:07 [From Stadol] ketorolac tromethamine Allergy Rash/Hives Verified 11/16/19 18:07 [From Toradol] meperidine HCl [From Demerol] Allergy Swelling Verified 11/16/19 18:07 pregabalin [From Lyrica] Allergy Unknown Verified 11/16/19 18:07 risperidone [From Risperdal] Allergy Dyspnea Verified 11/16/19 18:07 sulfamethoxazole Allergy Rash/Hives Verified 11/16/19 18:07 [From Bactrim] trimethoprim [From Bactrim] Allergy Rash/Hives Verified 11/16/19 18:07 codeine AdvReac Vomiting & Verified 11/16/19 18:07 Headache methylprednisolone AdvReac Vomiting & Verified 11/16/19 18:07 [From Medrol] Headache Physical Exam Vitals: Vital Signs Temp Pulse Pulse Resp BP BP Pulse Ox 11/17/19 07:05 99 20 11/17/19 07:00 98.2 F 99 22 128/73 94 L 11/17/19 01:00 98.3 F 102 H 20 109/70 95 11/17/19 00:00 20 11/16/19 19:00 98.4 F 104 H 20 104/66 91 L 11/16/19 18:40 99.4 F 80 20 101/61 96 11/16/19 17:55 98.2 F 90 20 123/65 97 11/16/19 16:50 20 11/16/19 16:46 97 20 113/78 98 11/16/19 16:01 98 11/16/19 15:44 96 11/16/19 15:04 98.7 F 111 H 22 150/79 87 L Intake and Output 11/16/19 11/17/19 11/17/19 22:59 06:59 14:59 Other: Voiding Method Bedside Commode Bedside Commode # Voids 2 4 Weight 83.915 kg GENERAL EXAM: Alert, very pleasant, 34-year-old white female, on 5 L of oxygen with pulse ox of 95%, we're told by nursing staff the patient intermittently removes her oxygen and she desat into the low 80s, comfortable in no apparent distress. HEAD: Normocephalic/atraumatic. EYES: Normal reaction of pupils, equal size. Conjunctiva pink, sclera white. NOSE: Clear with pink turbinates. THROAT: No erythema or exudates. NECK: No masses, no JVD, no thyroid enlargement, no adenopathy. CHEST: No chest wall deformity. Symmetrical expansion. LUNGS: Equal air entry with no crackles, wheeze, rhonchi or dullness. CVS: Regular rate and rhythm, normal S1 and S2, no gallops, no murmurs, no rubs ABDOMEN: Soft, nontender. No hepatosplenomegaly, normal bowel sounds, no guarding or rigidity. EXTREMITIES: No clubbing, no edema, no cyanosis, 2+ pulses and upper and lower extremities. MUSCULOSKELETAL: Muscle strength and tone normal. SPINE: No scoliosis or deformity SKIN: No rashes CENTRAL NERVOUS SYSTEM: Alert and oriented -3. No focal deficits, tone is normal in all 4 extremities. PSYCHIATRIC: Alert and oriented -3. Appropriate affect. Intact judgment and insight. Results - Laboratory Findings CBC and BMP: 11/17/19 09:03 11/17/19 09:03 PT/INR, D-dimer PT 9.3 sec (9.0-12.0) 11/17/19 09:03 INR 0.9 (<1.2) 11/17/19 09:03 D-Dimer 0.71 mg/L FEU (<0.60) H 11/17/19 09:03 Abnormal lab findings: Abnormal Labs 11/16/19 11/16/19 11/16/19 15:32 15:32 16:44 WBC 12.9 H RBC 3.48 L Hgb 9.2 L Hct 29.0 L MCHC RDW 19.9 H Neutrophils # 9.3 H Monocytes # 1.3 H Fibrinogen D-Dimer 0.92 H Sodium 132 L Glucose 112 H POC Glucose (mg/dL) Calcium 8.3 L Total Bilirubin Lactate Dehydrogenase C-Reactive Protein Total Protein 6.0 L Albumin 3.1 L Procalcitonin 11/16/19 11/16/19 11/16/19 16:46 16:49 21:20 WBC RBC Hgb Hct MCHC RDW Neutrophils # Monocytes # Fibrinogen D-Dimer Sodium Glucose POC Glucose (mg/dL) 153 H Calcium Total Bilirubin Lactate Dehydrogenase 1817 H C-Reactive Protein 297.6 H Total Protein Albumin Procalcitonin 0.42 H 11/16/19 11/17/19 11/17/19 22:02 07:19 09:03 WBC 11.4 H RBC 3.03 L Hgb 7.9 L Hct 26.0 L MCHC 30.5 L RDW 19.9 H Neutrophils # Monocytes # Fibrinogen 561 H D-Dimer Sodium Glucose POC Glucose (mg/dL) 151 H Calcium Total Bilirubin Lactate Dehydrogenase C-Reactive Protein Total Protein Albumin Procalcitonin 11/17/19 11/17/19 11/17/19 09:03 09:03 11:22 WBC RBC Hgb Hct MCHC RDW Neutrophils # Monocytes # Fibrinogen 550 H D-Dimer 0.71 H Sodium 134 L Glucose 106 H POC Glucose (mg/dL) 129 H Calcium 7.8 L Total Bilirubin 0.1 L Lactate Dehydrogenase 1516 H C-Reactive Protein 211.9 H Total Protein 5.2 L Albumin 2.6 L Procalcitonin - Diagnostic Findings Chest x-ray: report reviewed, image reviewed Assessment and Plan Plan: Assessment: #1. Shortness of breath and acute hypoxic respiratory failure related to possibility of atypical pneumonia, possible aspiration, or possibility of COVID 19 pneumonitis, COVID 19 PCR pending. #2. Recent hospitalization at an inpatient psychiatric facility for 13 days in [place], discharged on 11/10/2019, was tested there for Covid 19, and the results are unknown #3. History of mild intermittent bronchial asthma #4. History of anxiety #5. History of PTSD #6. Bipolar disorder #7. History of seizure disorder, last seizure was a month ago according to the patient #8. Crohn's disease #9. GERD/reflux Plan: Continue current antibiotic coverage, patient is currently on azithromycin and Rocephin, awaiting results of the Covid 19 testing, inflammatory markers were noted, d-dimer was noted, Decadron and Lovenox were started, no fever, still con tinues to require supplemental oxygen, will send urine Legionella antigen, we'll repeat chest x-ray. Maintain droplet precautions. We'll continue to monitor for worsening hypoxia and dyspnea. We'll follow I performed a history & physical examination of the patient and discussed their management with my nurse practitioner, Mary Keller. I reviewed the nurse practitioner's note and agree with the documented findings and plan of care. Lung sounds are positive for diminished breath sounds. The findings and the impression was discussed with the patient. I attest to the documentation by the nurse practitioner. Time with Patient: Greater than 30
--- NOTE | 2019-11-17 14:11 | XR ---
EXAMINATION TYPE: XR chest 1V portable DATE OF EXAM: 11/17/2019 Comparison: 11/16/2019 Clinical History: 34-year-old female with hypoxic respiratory failure Findings: Heart upper limits of normal in size. Diffuse interstitial opacity greatest in the lower lungs, relat ively similar to prior exam. No sizable effusion. Impression: Continued interstitial infiltrates mid and lower lungs. Correlate as to etiology.
[2019-11-17] MEDS: oxyCODONE-APAP 10-325MG 1 EACH TAB PO PRN ×2 (15:36→22:15)
[2019-11-17] MEDS: AZITHROMYCIN 500 MG in SODIUM CHLORIDE 0.9% 250 ML IVPB SCH (15:36)
[2019-11-17] MEDS ORDERED: ALBUTEROL NEBULIZED 2.5 MG/3 ML INHALATION ONE (15:54)
[2019-11-17] MEDS ORDERED: HYDROmorphone 0.5 MG/0.5 ML SYRINGE IVP STA (16:09)
[2019-11-17] MEDS ORDERED: GABAPENTIN 400 MG CAP PO STA (16:14)
[2019-11-17] MEDS: ONDANSETRON 4 MG/2 ML VIAL IVP PRN ×2 (16:35→22:15)
[2019-11-17 16:53] LABS: Glucose,Whole Blood 155 mg/dL (75-99)
[2019-11-17] MEDS: QUEtiapine 100 MG TAB PO SCH (20:13)
[2019-11-17] MEDS: NICOTINE 21MG/24HR PATCH TRANSDERM SCH (20:20)
--- NOTE | 2019-11-17 22:06 | P.PN ---
Subjective Progress Note Date: 11/17/19 (delayed charting seen at 1500) Principal diagnosis: shortness of breath The patient is a 34-year-old female with mild intermittent asthma, Crohn's disease, fibromyalgia, hypothyroidism, and multiple other comorbid conditions who presented to the ED with complaints of shortness of breath. TDenied exposure to any known Covid patients. In the emergency room, laboratory evaluation revealed leukocytosis of 12.9, d-dimer elevated 0.92, troponin I 0.023, proBNP 8190, CRP 297, LDH 1817, and lactic acid 1.9. Chest x-ray was positive for interstitial and patchy opacities mid and lower lungs. The patient was admitted for suspected Covid. EKG revealed normal sinus rhythm at [address]/T-wave changes. She was noted to be hypoxic with SpO2 of of 90% on 4 L NC. She was started on dexamethasone. She was also started on Lovenox subcutaneous. Pulmonary was consulted who agreed with continued dexamethasone. They also recommended adding Zithromax for possible atypical coverage. She had improvement in her SpO2 on 5L nasal cannula on the morning of 11/16. Initial Covid test came back negative however will repeat Covid testing due to a clinical syndrome consistent with Covid 19 pneumonitis. Patient seen and examined at bedside. She currently complains of a headache. She complains of chest pain, abdominal pain, leg pain, severe headache. She states that she is not getting her required doses of gabapentin. She also states that she is not getting her appropriate doses of Ativan. She is requesting additional IV pain medications and is frustrated and states she This type of pain at home. I explained to her that we will not be using IV pain medications for cough or abdominal pain when she is here for Covid that these can cause respiratory depression. I explained I did up her Percocet. I will give her a one-time dose of Dilaudid to help decrease her current pain cycle. She is also complaining now of diarrhea and thinks her Crohn's is flaring. She also states she was recently on her period. She then states she is supposed to be on Ativan 2 mg twice daily, however she doesn't have an active prescription from and she has not followed up with her psychiatrist yet and that her optic prescription is only for 1 mg. I stated that I would verify her gabapentin and Ativan prescriptions in maps and would continue her at her prior prescribed doses Objective - Vital Signs Vital signs: Vital Signs Temp 97.7 F 11/17/19 19:00 Pulse 83 11/17/19 19:00 Resp 20 11/17/19 19:00 BP 124/74 11/17/19 19:00 Pulse Ox 96 11/17/19 19:00 Intake & Output 11/17/19 11/17/19 11/18/19 06:59 18:59 06:59 Intake Total 1575 Balance 1575 Intake: Intake, IV Titration 1025 Amount Sodium Chloride 0.9% 1, 975 000 ml @ 130 mls/hr IV . Q7H42M STA Rx#:[id number] cefTRIAXone 1 gm In 50 Sodium Chloride 0.9% 50 ml @ 100 mls/hr IVPB Q24HR JAMEL Rx#:[id number] Oral 550 Other: Voiding Method Bedside Commode Bedside Commode # Voids 4 4 - Exam General: ill appearing, no distress, appears at stated age Derm: warm, dry Head: atraumatic, normocephalic, symmetric Eyes: EOMI, no lid lag, anicteric sclera Mouth: no lip lesion, mucus membranes moist Cardiovascular: S1S2 reg, no murmur, positive posterior tibial pulse bilateral, Lungs: crackles bilateral bases] , no accessory muscle use Abdominal: soft, +tender to palpation diffusely, no guarding, no appreciable organomegaly Ext: no gross muscle atrophy, no edema, no contractures Neuro: CN II-XI grossly intact, no focal neuro deficits Psych: Alert, oriented, appropriate affect - Labs CBC & Chem 7: 11/17/19 09:03 11/17/19 09:03 Labs: Abnormal Lab Results - Last 24 Hours (Table) 11/16/19 11/16/19 11/17/19 Range/Units 16:49 22:02 07:19 WBC (3.8-10.6) k/uL RBC (3.80-5.40) m/uL Hgb (11.4-16.0) gm/dL Hct (34.0-46.0) % MCHC (31.0-37.0) g/dL RDW (11.5-15.5) % Fibrinogen 561 H (200-500) mg/dL D-Dimer (<0.60) mg/L FEU Sodium (137-145) mmol/L Glucose (74-99) mg/dL POC Glucose (mg/dL) 151 H (75-99) mg/dL Calcium (8.4-10.2) mg/dL Total Bilirubin (0.2-1.3) mg/dL Lactate Dehydrogenase (313-618) U/L C-Reactive Protein (<10.0) mg/L Total Protein (6.3-8.2) g/dL Albumin (3.5-5.0) g/dL Procalcitonin 0.42 H (0.02-0.09) ng/mL 11/17/19 11/17/19 11/17/19 Range/Units 09:03 09:03 09:03 WBC 11.4 H (3.8-10.6) k/uL RBC 3.03 L (3.80-5.40) m/uL Hgb 7.9 L (11.4-16.0) gm/dL Hct 26.0 L (34.0-46.0) % MCHC 30.5 L (31.0-37.0) g/dL RDW 19.9 H (11.5-15.5) % Fibrinogen 550 H (200-500) mg/dL D-Dimer 0.71 H (<0.60) mg/L FEU Sodium 134 L (137-145) mmol/L Glucose 106 H (74-99) mg/dL POC Glucose (mg/dL) (75-99) mg/dL Calcium 7.8 L (8.4-10.2) mg/dL Total Bilirubin 0.1 L (0.2-1.3) mg/dL Lactate Dehydrogenase 1516 H (313-618) U/L C-Reactive Protein 211.9 H (<10.0) mg/L Total Protein 5.2 L (6.3-8.2) g/dL Albumin 2.6 L (3.5-5.0) g/dL Procalcitonin (0.02-0.09) ng/mL 11/17/19 11/17/19 Range/Units 11:22 16:50 WBC (3.8-10.6) k/uL RBC (3.80-5.40) m/uL Hgb (11.4-16.0) gm/dL Hct (34.0-46.0) % MCHC (31.0-37.0) g/dL RDW (11.5-15.5) % Fibrinogen (200-500) mg/dL D-Dimer (<0.60) mg/L FEU Sodium (137-145) mmol/L Glucose (74-99) mg/dL POC Glucose (mg/dL) 129 H 155 H (75-99) mg/dL Calcium (8.4-10.2) mg/dL Total Bilirubin (0.2-1.3) mg/dL Lactate Dehydrogenase (313-618) U/L C-Reactive Protein (<10.0) mg/L Total Protein (6.3-8.2) g/dL Albumin (3.5-5.0) g/dL Procalcitonin (0.02-0.09) ng/mL Microbiology - Last 24 Hours (Table) 11/16/19 17:04 Blood Culture - Preliminary Blood No Growth after 24 hours Assessment and Plan Assessment: Atypical pneumonia with acute hypoxic respiratory failure -Suspect Covid 19 pneumonia -Follow CBC, CMP, LDH, d-dimer, CRP and fibrinogen -Continue with dexamethasone -Repeat Covid swab -Discussed having family quarantine -Follow chest x-ray until clear -Pulmonary recommendations appreciated -Continue with Rocephin and Zithromax, though clinically doubt bacterial pneumonia with pro-calcitonin less than 2 - Await legionella urine antigen Intractable headache -Resume home Fioricet Costochondritis -Continue with home Percocet -Dilaudid 1 Anemia -Undetermined etiology -Repeat CBC in a.m. -If continues to downtrend will need further investigation -Check iron studies Opiate use disorder -Patient will need outpatient follow-up to attempt to wean off of her chronic opiate medications Chronic conditions: Fibromyalgia GERD Seizure disorder Crohn's disease Irritable bowel syndrome Chronic back pain DVT prophylaxis: Lovenox Discussed with: Patient, nursing Anticipated discharge: 2-[address]: home A total of 35 minutes was spent on the care of this complex patient more than 50% of the time was spent in counseling and care coordination.
[2019-11-18] MEDS: MELATONIN 3 MG TABLET PO SCH ×2 (04:24→22:25)
[2019-11-18] MEDS: LEVOTHYROXINE 137 MCG TAB PO SCH (05:51)
[2019-11-18] MEDS: oxyCODONE-APAP 10-325MG 1 EACH TAB PO PRN ×4 (05:51→22:54)
[2019-11-18 07:26] LABS: Glucose,Whole Blood 106 mg/dL (75-99)
[2019-11-18] MEDS: INSULIN ASPART (NovoLOG) 100 UNIT/ML VIAL SQ SCH ×4 (07:32→21:18)
[2019-11-18] MEDS: LORazepam 1 MG TAB PO PRN ×3 (07:35→20:48)
[2019-11-18] MEDS: GABAPENTIN 400 MG CAP PO SCH ×3 (07:35→21:19)
[2019-11-18] MEDS: ENOXAPARIN 40 MG/0.4 ML SYRINGE SQ SCH (07:35)
[2019-11-18] MEDS: ONDANSETRON 4 MG/2 ML VIAL IVP PRN ×2 (07:35→18:56)
[2019-11-18] MEDS: dexAMETHasone 2 MG TAB PO SCH (07:36)
[2019-11-18] MEDS: MONTELUKAST 10 MG TAB PO SCH (07:36)
[2019-11-18] MEDS: PANTOPRAZOLE 40 MG TABLET PO SCH (07:36)
[2019-11-18] MEDS: PARoxetine 20 MG TAB PO SCH (07:36)
[2019-11-18] MEDS: NICOTINE 21MG/24HR PATCH TRANSDERM SCH (07:37)
[2019-11-18 08:14] LABS: ALT 10 U/L (4-34); AST 18 U/L (14-36); African American GFR (CKD) >90 (>60 ml/min/1.73 sqM); Albumin 2.7 g/dL (3.5-5.0); Alkaline Phosphatase 81 U/L (38-126); Anion Gap 6 mmol/L; Blood Urea Nitrogen 12 mg/dL (7-17); C Reactive Protein 85.7 mg/L (<10.0); Calcium 8.2 mg/dL (8.4-10.2); Carbon Dioxide 21 mmol/L (22-30); Chloride 108 mmol/L (98-107); Creatine Kinase 41 U/L (30-135); Glucose 88 mg/dL (74-99); LDH 1173 U/L (313-618); Magnesium 1.9 mg/dL (1.6-2.3); Non-African American GFR(CKD) >90 (>60 ml/min/1.73 sqM); Potassium 4.4 mmol/L (3.5-5.1); Sodium 135 mmol/L (137-145); Total Bilirubin 0.1 mg/dL (0.2-1.3); Total Protein 5.4 g/dL (6.3-8.2)
[2019-11-18 08:41] LABS: Anisocytosis Slight; Basophils % (A) 0 %; Eosinophils # (A) 0.3 k/uL (0-0.7); Eosinophils % (A) 3 %; HCT 25.3 % (34.0-46.0); HGB 7.8 gm/dL (11.4-16.0); Hypochromasia Marked; Lymphocytes # (A) 4.7 k/uL (1.0-4.8); Lymphocytes % (A) 42 %; MCH 26.8 pg (25.0-35.0); MCHC 30.8 g/dL (31.0-37.0); Mean Platelet Volume 7.5; Monocytes # (A) 0.8 k/uL (0-1.0); Monocytes % (A) 7 %; Neutrophils # (A) 5.3 k/uL (1.3-7.7); Neutrophils % (A) 47 %; Platelet Count 328 k/uL (150-450); RBC 2.91 m/uL (3.80-5.40); WBC 11.2 k/uL (3.8-10.6)
[2019-11-18] MEDS: FLUTICASONE 110 MCG INHALER INHALATION SCH ×2 (08:41→19:16)
[2019-11-18] MEDS: ALBUTEROL HFA INHALER INHALATION SCH ×4 (08:42→19:16)
[2019-11-18] MEDS ORDERED: IOPAMIDOL CONTRAST (ORAL USE) VIAL PO PRN (09:15)
[2019-11-18] MEDS ORDERED: MORPHINE SULFATE 2 MG/ML SYRINGE IVP STA (09:16)
[2019-11-18] MEDS: BUTALB/APAP/CAFF 50-325-40MG TAB PO PRN ×2 (11:39→23:39)
[2019-11-18 12:05] LABS: Glucose,Whole Blood 121 mg/dL (75-99)
--- NOTE | 2019-11-18 12:28 | CT ---
EXAMINATION TYPE: CT abdomen pelvis wo con DATE OF EXAM: 11/18/2019 HISTORY: Abdominal pain, history of Crohn's CT DLP: 889.9 mGycm. Automated Exposure Control for Dose Reduction was Utilized. TECHNIQUE: CT scan of the abdomen and pelvis is performed with oral but without IV contrast. COMPARISON: CT abdomen and pelvis June 01, 2019 and older CTs. FINDINGS: Within the limitations of a non-contrast study, the following observations are made. LUNG BASES: There are new small to tiny bilateral pleural effusions and mosaic attenuation consistent with mild to moderate bilateral alveolar edema. LIVER/GB: Cholecystectomy clips are redemonstrated. PANCREAS: No significant abnormality is seen. SPLEEN: No significant abnormality is seen. ADRENALS: Stable 2.3 cm nonspecific left adrenal mass, Hounsfield units average [address] axial image 27. This is unchanged in size from 2014 CT and is strongly favored benign. KIDNEYS: No renal stones or hydronephrosis is present bilaterally. BOWEL: Suboptimal evaluation bowel due to little intra-abdominal contrast only filling duodenal sweep and some left-sided jejunal loops. Stomach is poorly distended and thus suboptimally evaluated. No s uspicious small or large bowel dilatation. There is 8mm ovoid density dependently in the inferior cec um presumed nondigested pill. There is moderate amount of fecal prominence throughout the colon espec ially right and transverse colon. Terminal ileum slightly wandering as is seen axial image 68 without obvious suspicious wall thickening or surrounding fat stranding. GENITAL ORGANS: Anteverted uterus. New moderate amount of free fluid in pelvis axial image 81 LYMPH NODES: No greater than 1cm abdominal or pelvic lymph nodes are appreciated. OSSEOUS STRUCTURES: No significant abnormality is seen. OTHER: No significant additional abnormality is seen. IMPRESSION: Suboptimal study. No bowel obstruction. Overall moderate proximal to mid colonic fecal st asis bowel present. Suspect fluid overload state with new small to tiny bilateral pleural effusions a nd mild to moderate alveolar edema along with moderate free fluid in the pelvis. Correlate clinically .
--- NOTE | 2019-11-18 13:04 | P.PN ---
Subjective Progress Note Date: 11/18/19 Principal diagnosis: Acute hypoxic respiratory failure secondary to atypical pneumonia possible aspiration versus Covid 19 pneumonitis despite negative findings 34-year-old white female patient of Dr. Isidro, with a medical history of mild intermittent bronchial asthma, seizure disorder, GERD/reflux, anxiety, bipolar, PTSD, Crohn's disease, who presented to the hospital on 11/16/2019 with complaints of generalized aches and pains, shortness of breath, patient states she was gasping for air, but denied any fever, denied any cough or phlegm production, denied any chest pain or hemoptysis. Patient was recently discharged from a inpatient psychiatric facility where she was hospitalized for 13 days and where she checked involuntarily. She states she was tested for COVI D 19 virus there, however results are unknown. Patient is a current smoker. She is on Singulair, Claritin, Qvar for her history of asthma. Denies any nausea vomiting or diarrhea. Chest x-ray was completed in the ER showing interstitial and patchy opacities in the mid and lower lungs consideration for interstitial pneumonitis, atypical infections and aspiration. Pulse ox was 87% on room air, patient was placed on supplemental oxygen which she intermittently takes often desats into the low 80s. Patient is afebrile, hemodynamically stable. No altered mentation. Labs showed white blood cell count of 12.9, hemoglobin of 9.2, fibrinogen was 561, d-dimer was 0.92, sodium is 132, the rest of the electrolytes and renal profile were within normal limits, catheter was 1.9, LFTs were within normal limits, LDH was elevated at 1817, troponins were negative at 0.0-32, CRP was 297, proBNP was 8190, pro-calcitonin was elevated to 0.42. Echocardiogram showed preserved LV function with EF of 65-70%, aortic valve was trileaflet and structurally normal, trace mitral regurg, mild tricuspid regurg, no evidence of pulmonary hypertension with right-sided pressures less than 35 mmHg. Patient was started on empiric antibiotics in the form of azithromycin and Rocephin, she was given IV Decadron, and started on nebulized bronchodilators, her Covid 19 testing is pending at this time. This morning she continues to require supplemental oxygen currently at 5 L, and her pulse ox is 94%. The patient is seen today 11/18/2019 in follow-up on the regular medical floor. She is currently sitting up in bed. Awake and alert in no acute distress. She is maintaining O2 saturations in the 90s on 2 L/m per nasal cannula. She's been afebrile. Hemodynamically stable. Still with dyspneic on minimal exertion. Still with a loose nonproductive cough. Blood culture reveals no growth to date. Covid 19 screen negative. White count 11.2. Hemoglobin 7.8. Sodium 135. Potassium 4.4. Creatinine 0.74. LDH 1173. Troponin negative. C- reactive protein 85.7. She is continued on ceftriaxone and azithromycin. Remains on Decadron, Lovenox, albuterol. Habitrol patch in place. Objective - Vital Signs Vital signs: Vital Signs Temp 98.2 F 11/18/19 07:00 Pulse 95 11/18/19 07:00 Resp 22 11/18/19 07:00 BP 124/74 11/18/19 07:00 Pulse Ox 96 11/18/19 07:00 Intake & Output 11/17/19 11/18/19 11/18/19 18:59 06:59 18:59 Intake Total 1575 200 Balance 1575 200 Intake: Intake, IV Titration 1025 Amount Sodium Chloride 0.9% 1, 975 000 ml @ 130 mls/hr IV . [id number] [facility] Rx#:[id number] cefTRIAXone 1 gm In 50 Sodium Chloride 0.9% 50 ml @ 100 mls/hr IVPB Q24HR [facility] Rx#:[id number] Oral 550 200 Other: Voiding Method Bedside Commode Bedside Commode # Voids 4 2 - Exam GENERAL EXAM: Alert, 34-year-old female patient, on 2 L of oxygen with pulse ox of 93%, comfortable in no apparent distress. HEAD: Normocephalic/atraumatic. EYES: Normal reaction of pupils, equal size. Conjunctiva pink, sclera white. NOSE: Clear with pink turbinates. THROAT: No erythema or exudates. NECK: No masses, no JVD, no thyroid enlargement, no adenopathy. CHEST: No chest wall deformity. Symmetrical expansion. LUNGS: Equal air entry with bilateral wheeze, few scattered rhonchi. CVS: Regular rate and rhythm, normal S1 and S2, no gallops, no murmurs, no rubs ABDOMEN: Soft, nontender. No hepatosplenomegaly, normal bowel sounds, no guarding or rigidity. EXTREMITIES: No clubbing, no edema, no cyanosis, 2+ pulses and upper and lower extremities. MUSCULOSKELETAL: Muscle strength and tone normal. SPINE: No scoliosis or deformity SKIN: No rashes CENTRAL NERVOUS SYSTEM: No focal deficits, tone is normal in all 4 extremities. PSYCHIATRIC: Alert and oriented -3. Appropriate affect. Intact judgment and insight. - Labs CBC & Chem 7: 11/18/19 07:23 11/18/19 07:23 Labs: Abnormal Lab Results - Last 24 Hours (Table) 11/17/19 11/18/19 11/18/19 Range/Units 16:50 07:00 07:23 WBC 11.2 H (3.8-10.6) k/uL RBC 2.91 L (3.80-5.40) m/uL Hgb 7.8 L (11.4-16.0) gm/dL Hct 25.3 L (34.0-46.0) % MCHC 30.8 L (31.0-37.0) g/dL RDW 20.0 H (11.5-15.5) % Sodium (137-145) mmol/L Chloride (98-107) mmol/L Carbon Dioxide (22-30) mmol/L POC Glucose (mg/dL) 155 H 106 H (75-99) mg/dL Calcium (8.4-10.2) mg/dL Total Bilirubin (0.2-1.3) mg/dL Lactate Dehydrogenase (313-618) U/L C-Reactive Protein (<10.0) mg/L Total Protein (6.3-8.2) g/dL Albumin (3.5-5.0) g/dL 11/18/19 11/18/19 Range/Units 07:23 12:03 WBC (3.8-10.6) k/uL RBC (3.80-5.40) m/uL Hgb (11.4-16.0) gm/dL Hct (34.0-46.0) % MCHC (31.0-37.0) g/dL RDW (11.5-15.5) % Sodium 135 L (137-145) mmol/L Chloride 108 H (98-107) mmol/L Carbon Dioxide 21 L (22-30) mmol/L POC Glucose (mg/dL) 121 H (75-99) mg/dL Calcium 8.2 L (8.4-10.2) mg/dL Total Bilirubin 0.1 L (0.2-1.3) mg/dL Lactate Dehydrogenase 1173 H (313-618) U/L C-Reactive Protein 85.7 H (<10.0) mg/L Total Protein 5.4 L (6.3-8.2) g/dL Albumin 2.7 L (3.5-5.0) g/dL Microbiology - Last 24 Hours (Table) 11/16/19 17:04 Blood Culture - Preliminary Blood No Growth after 24 hours Assessment and Plan Assessment: #1. Acute hypoxic respiratory failure related to possibility of atypical pneumonia, possible aspiration, or possibility of COVID 19 pneumonitis, COVID 19 PCR negative though inflammatory markers high. #2. Recent hospitalization at an inpatient psychiatric facility for 13 days in [place], discharged on 11/10/2019, was tested there for Covid 19, and the results are unknown #3. History of mild intermittent bronchial asthma #4. History of anxiety #5. History of PTSD #6. Bipolar disorder #7. History of seizure disorder, last seizure was a month ago according to the patient #8. Crohn's disease #9. GERD/reflux Plan: The patient was seen and evaluated by Dr. Palma Continue the current treatment plan for now Titrate down the FiO2 as tolerated Educated regarding the importance of complete smoking cessation We will continue to follow I, the cosigning physician, performed a history & physical examination of the patient. Lungs sounds with bilateral end expiratory wheeze, few scattered rh onchi. Maintaining good O2 saturations in the 90s on 2 L/m per nasal cannula. I discussed the assessment and plan of care with my nurse practitioner, Denise Maldonado. I attest to the above note as dictated by her.
[2019-11-18] MEDS: AZITHROMYCIN 500 MG in SODIUM CHLORIDE 0.9% 250 ML IVPB SCH (15:46)
[2019-11-18] MEDS ORDERED: diazePAM 5 MG TAB PO STA (16:01)
[2019-11-18] MEDS ORDERED: HYDROmorphone 0.5 MG/0.5 ML SYRINGE IVP STA (16:02)
[2019-11-18 17:12] LABS: Glucose,Whole Blood 175 mg/dL (75-99)
[2019-11-18 17:58] LABS: Ferritin 37.2 ng/mL (10.0-291.0)
[2019-11-18 18:04] LABS: % Iron Saturation 4.74 (12.00-45.00); Iron 17 ug/dL (50-170); Total Iron Binding Capacity 359 ug/dL (228-460)
[2019-11-18 20:38] LABS: Glucose,Whole Blood 94 mg/dL (75-99)
[2019-11-18] MEDS ORDERED: MELATONIN 3 MG TABLET PO SCH (21:00)
[2019-11-18] MEDS: HYDROmorphone 0.5 MG/0.5 ML SYRINGE IVP PRN (21:37)
--- NOTE | 2019-11-18 21:40 | P.PN ---
Subjective Progress Note Date: 11/18/19 (delayed charting seen at 1600) Principal diagnosis: shortness of breath The patient is a 34-year-old female with mild intermittent asthma, Crohn's disease, fibromyalgia, hypothyroidism, and multiple other comorbid conditions who presented to the ED with complaints of shortness of breath. TDenied exposure to any known Covid patients. In the emergency room, laboratory evaluation revealed leukocytosis of 12.9, d-dimer elevated 0.92, troponin I 0.023, proBNP 8190, CRP 297, LDH 1817, and lactic acid 1.9. Chest x-ray was positive for interstitial and patchy opacities mid and lower lungs. The patient was admitted for suspected Covid. EKG revealed normal sinus rhythm at [address]/T-wave changes. She was noted to be hypoxic with SpO2 of of 90% on 4 L NC. She was started on dexamethasone. She was also started on Lovenox subcutaneous. Pulmonary was consulted who agreed with continued dexamethasone. They also recommended adding Zithromax for possible atypical coverage. She had improvement in her SpO2 on 5L nasal cannula on the morning of 11/16. Initial Covid test came back negative however will repeat Covid testing due to a clinical syndrome consistent with Covid 19 pneumonitis. Patient was reporting continued abdominal pain on the morning of 11/17 and again requesting IV narcotics state that her Percocet 10/325, Ativan, and gabapentin 1200 mg 3 times a day was not sufficient to control her pain. Subsequently a CT abdomen and pelvis was ordered which was a suboptimal study as she would not drink all of the contrast. It did show overall moderate proximal colonic fecal stasis, possible fluid overload state with new small tiny pleural effusions, and moderate thickening fluid in the pelvis. Patient seen and examined at bedside. She is upset, crying. Demanding her pain needs to be addressed is not adequately addressed and she cannot sit in the bed anymore. She is again insisting on IV narcotics. She states she cannot take anything oral besides Percocet, she is ALLERGIC to all NSAID-containing products. I offered her Valium to see if a muscle relaxer would help and she did not have any significant Crohn's flare on her computed tomography scan. She essentially refuses and then again states no one is willing to help. We discussed that I offered her help with trying a muscle relaxer on top of all of her multiple medications she then agrees to try the Valium but states she "knows it won't work". She again is requesting her Ativan to be increased to 2 mg insisting this is what she takes at home. I again explained to her that maps was run on her and shows that she takes 1 mg of Ativan twice daily. She insists that they increased it to 2 mg twice daily at her recent mental health hospital stay however they did not discharge her on any Ativan she has not been unable to make a follow-up appointment. I cleaned her that I will prescribe her Ativan as it is done on outpatient basis at 1 mg twice daily and keeping her gabapentin at 1200 mg 3 times daily. After a long conversation and explaining the patient risks and benefits she seems to be calm down. Initially she had asked for different physician and I of course offered to comply with this request, however she then changed her mind. Objective - Vital Signs Vital signs: Vital Signs Temp 98.1 F 11/18/19 19:00 Pulse 86 11/18/19 19:00 Resp 18 11/18/19 19:00 BP 131/81 11/18/19 19:00 Pulse Ox 95 11/18/19 19:00 Intake & Output 11/18/19 11/18/19 11/19/19 06:59 18:59 06:59 Intake Total 200 200 Balance 200 200 Intake: Oral 200 200 Other: Voiding Method Bedside Commode # Voids 2 3 - Exam General: non toxic, no distress, appears at stated age Derm: warm, dry Head: atraumatic, normocephalic, symmetric Eyes: EOMI, no lid lag, anicteric sclera Mouth: no lip lesion, mucus membranes moist Cardiovascular: S1S2 reg, no murmur, positive posterior tibial pulse bilateral, Lungs: crackles bilateral bases , no accessory muscle use Abdominal: soft, +tender to palpation diffusely, no guarding, no appreciable organomegaly Ext: no gross muscle atrophy, no edema, no contractures Neuro: CN II-XI grossly intact, no focal neuro deficits Psych: Alert, oriented, upset crying accusative - Labs CBC & Chem 7: 11/18/19 07:23 11/18/19 07:23 Labs: Abnormal Lab Results - Last 24 Hours (Table) 11/18/19 11/18/19 11/18/19 Range/Units 07:00 07:23 07:23 WBC 11.2 H (3.8-10.6) k/uL RBC 2.91 L (3.80-5.40) m/uL Hgb 7.8 L (11.4-16.0) gm/dL Hct 25.3 L (34.0-46.0) % MCHC 30.8 L (31.0-37.0) g/dL RDW 20.0 H (11.5-15.5) % Sodium 135 L (137-145) mmol/L Chloride 108 H (98-107) mmol/L Carbon Dioxide 21 L (22-30) mmol/L POC Glucose (mg/dL) 106 H (75-99) mg/dL Calcium 8.2 L (8.4-10.2) mg/dL Iron 17 L (50-170) ug/dL % Saturation 4.74 L (12.00-45.00) Total Bilirubin 0.1 L (0.2-1.3) mg/dL Lactate Dehydrogenase 1173 H (313-618) U/L C-Reactive Protein 85.7 H (<10.0) mg/L Total Protein 5.4 L (6.3-8.2) g/dL Albumin 2.7 L (3.5-5.0) g/dL 11/18/19 11/18/19 Range/Units 12:03 17:05 WBC (3.8-10.6) k/uL RBC (3.80-5.40) m/uL Hgb (11.4-16.0) gm/dL Hct (34.0-46.0) % MCHC (31.0-37.0) g/dL RDW (11.5-15.5) % Sodium (137-145) mmol/L Chloride (98-107) mmol/L Carbon Dioxide (22-30) mmol/L POC Glucose (mg/dL) 121 H 175 H (75-99) mg/dL Calcium (8.4-10.2) mg/dL Iron (50-170) ug/dL % Saturation (12.00-45.00) Total Bilirubin (0.2-1.3) mg/dL Lactate Dehydrogenase (313-618) U/L C-Reactive Protein (<10.0) mg/L Total Protein (6.3-8.2) g/dL Albumin (3.5-5.0) g/dL Microbiology - Last 24 Hours (Table) 11/16/19 17:04 Blood Culture - Preliminary Blood No Growth after 48 hours Assessment and Plan Assessment: Atypical pneumonia with acute hypoxic respiratory failure -Suspect Covid 19 pneumonia -Follow CBC, CMP, LDH, d-dimer, CRP and fibrinogen -Continue with dexamethasone -Repeat Covid swab pending -Discussed having family quarantine -Follow chest x-ray until clear -Pulmonary recommendations appreciated -Continue with Rocephin and Zithromax, though clinically doubt bacterial pneumonia with pro-calcitonin less than 2 - Await legionella urine antigen Intractable abdominal pain - fecal stasis on CT likely due to chronic opiate use, patient complaining of diarrhea - limit IV pain medications with fecal stasis - percocet Costochondritis -Continue with home Percocet -Dilaudid 1 Iron deficiency Anemia -ferrous sulfate on discharge -Repeat CBC in a.m. Opiate use disorder -Patient will need outpatient follow-up to attempt to wean off of her chronic opiate medications Intractable headache, improved Chronic conditions: Fibromyalgia GERD Seizure disorder Crohn's disease Irritable bowel syndrome Chronic back pain DVT prophylaxis: Lovenox Discussed with: Patient, nursing Anticipated discharge: in AM if off O2 Anticipated discharge place: home A total of 35 minutes was spent on the care of this complex patient more than 50% of the time was spent in counseling and care coordination.
[2019-11-18] MEDS: QUEtiapine 100 MG TAB PO SCH (22:25)
[2019-11-19] MEDS: oxyCODONE-APAP 10-325MG 1 EACH TAB PO PRN ×4 (06:19→23:06)
[2019-11-19] MEDS: LEVOTHYROXINE 137 MCG TAB PO SCH (06:19)
[2019-11-19 07:45] LABS: Glucose,Whole Blood 119 mg/dL (75-99)
[2019-11-19] MEDS: INSULIN ASPART (NovoLOG) 100 UNIT/ML VIAL SQ SCH ×3 (07:54→16:52)
[2019-11-19 08:01] LABS: Anisocytosis Moderate; Basophils % (A) 0 %; Eosinophils # (A) 0.3 k/uL (0-0.7); Eosinophils % (A) 3 %; HCT 26.5 % (34.0-46.0); HGB 8.2 gm/dL (11.4-16.0); Hypochromasia Moderate; Lymphocytes # (A) 4.4 k/uL (1.0-4.8); Lymphocytes % (A) 49 %; MCH 26.7 pg (25.0-35.0); MCHC 30.9 g/dL (31.0-37.0); MCV 86.4 fL (80.0-100.0); Mean Platelet Volume 7.1; Microcytosis Slight; Monocytes # (A) 0.5 k/uL (0-1.0); Monocytes % (A) 6 %; Neutrophils # (A) 3.6 k/uL (1.3-7.7); Neutrophils % (A) 40 %; Platelet Count 492 k/uL (150-450); RBC 3.07 m/uL (3.80-5.40); RDW 20.5 % (11.5-15.5)
[2019-11-19] MEDS: ALBUTEROL HFA INHALER INHALATION SCH ×4 (08:09→21:03)
[2019-11-19] MEDS: FLUTICASONE 110 MCG INHALER INHALATION SCH ×2 (08:09→21:04)
[2019-11-19] MEDS: RIVAROXABAN 2.5 MG TABLET PO SCH ×2 (08:11→21:14)
[2019-11-19] MEDS: NICOTINE 21MG/24HR PATCH TRANSDERM SCH (08:11)
[2019-11-19] MEDS: PARoxetine 20 MG TAB PO SCH (08:11)
[2019-11-19] MEDS: PANTOPRAZOLE 40 MG TABLET PO SCH (08:11)
[2019-11-19] MEDS: MONTELUKAST 10 MG TAB PO SCH (08:11)
[2019-11-19 08:12] LABS: ALT 9 U/L (4-34); AST 13 U/L (14-36); African American GFR (CKD) >90 (>60 ml/min/1.73 sqM); Albumin 2.6 g/dL (3.5-5.0); Alkaline Phosphatase 80 U/L (38-126); Anion Gap 3 mmol/L; Blood Urea Nitrogen 6 mg/dL (7-17); C Reactive Protein 34.1 mg/L (<10.0); Calcium 8.1 mg/dL (8.4-10.2); Carbon Dioxide 26 mmol/L (22-30); Chloride 108 mmol/L (98-107); Creatine Kinase 31 U/L (30-135); Glucose 98 mg/dL (74-99); LDH 853 U/L (313-618); Magnesium 1.9 mg/dL (1.6-2.3); Non-African American GFR(CKD) >90 (>60 ml/min/1.73 sqM); Potassium 4.4 mmol/L (3.5-5.1); Sodium 137 mmol/L (137-145); Total Bilirubin <0.1 mg/dL (0.2-1.3); Total Protein 5.2 g/dL (6.3-8.2)
[2019-11-19] MEDS: dexAMETHasone 2 MG TAB PO SCH (08:12)
[2019-11-19] MEDS: GABAPENTIN 400 MG CAP PO SCH ×3 (08:12→21:10)
[2019-11-19] MEDS: LORazepam 1 MG TAB PO PRN ×3 (08:21→23:07)
[2019-11-19] MEDS: HYDROmorphone 0.5 MG/0.5 ML SYRINGE IVP PRN (08:21)
[2019-11-19] MEDS ORDERED: HYDROmorphone 1 MG/ML 1 ML SYRINGE IVP PRN (11:00)
--- NOTE | 2019-11-19 11:43 | P.PN ---
Subjective Progress Note Date: 11/19/19 Principal diagnosis: Acute hypoxic respiratory failure secondary to atypical pneumonia possible aspiration versus Covid 19 pneumonitis despite negative findings 34-year-old white female patient of Dr. Isidro, with a medical history of mild intermittent bronchial asthma, seizure disorder, GERD/reflux, anxiety, bipolar, PTSD, Crohn's disease, who presented to the hospital on 11/16/2019 with complaints of generalized aches and pains, shortness of breath, patient states she was gasping for air, but denied any fever, denied any cough or phlegm production, denied any chest pain or hemoptysis. Patient was recently discharged from a inpatient psychiatric facility where she was hospitalized for 13 days and where she checked involuntarily. She states she was tested for COVI D 19 virus there, however results are unknown. Patient is a current smoker. She is on Singulair, Claritin, Qvar for her history of asthma. Denies any nausea vomiting or diarrhea. Chest x-ray was completed in the ER showing interstitial and patchy opacities in the mid and lower lungs consideration for interstitial pneumonitis, atypical infections and aspiration. Pulse ox was 87% on room air, patient was placed on supplemental oxygen which she intermittently takes often desats into the low 80s. Patient is afebrile, hemodynamically stable. No altered mentation. Labs showed white blood cell count of 12.9, hemoglobin of 9.2, fibrinogen was 561, d-dimer was 0.92, sodium is 132, the rest of the electrolytes and renal profile were within normal limits, catheter was 1.9, LFTs were within normal limits, LDH was elevated at 1817, troponins were negative at 0.0-32, CRP was 297, proBNP was 8190, pro-calcitonin was elevated to 0.42. Echocardiogram showed preserved LV function with EF of 65-70%, aortic valve was trileaflet and structurally normal, trace mitral regurg, mild tricuspid regurg, no evidence of pulmonary hypertension with right-sided pressures less than 35 mmHg. Patient was started on empiric antibiotics in the form of azithromycin and Rocephin, she was given IV Decadron, and started on nebulized bronchodilators, her Covid 19 testing is pending at this time. This morning she continues to require supplemental oxygen currently at 5 L, and her pulse ox is 94%. The patient is seen today 11/18/2019 in follow-up on the regular medical floor. She is currently sitting up in bed. Awake and alert in no acute distress. She is maintaining O2 saturations in the 90s on 2 L/m per nasal cannula. She's been afebrile. Hemodynamically stable. Still with dyspneic on minimal exertion. Still with a loose nonproductive cough. Blood culture reveals no growth to date. Covid 19 screen negative. White count 11.2. Hemoglobin 7.8. Sodium 135. Potassium 4.4. Creatinine 0.74. LDH 1173. Troponin negative. C- reactive protein 85.7. She is continued on ceftriaxone and azithromycin. Remains on Decadron, Lovenox, albuterol. Habitrol patch in place. The patient is seen today 11/19/2019 follow-up on the regular medical floor. She is awake and alert in no acute distress. She is maintaining O2 saturations in the 90s on room air. She's been afebrile. Hemodynamically stable. Blood culture reveals no growth. White count 9.0. Hemoglobin 8.2. Sodium 137. Potassium 4.4. Creatinine 0.72. LDH 853. C-reactive protein 34. She remains on Decadron, bronchodilators, Singulair, Xarelto. Habitrol patch in place. Antibiotics in the form of ceftriaxone and azithromycin. Repeat Covid 19 screen pending. Legionella pending. Objective - Vital Signs Vital signs: Vital Signs Temp 98.4 F 11/19/19 07:00 Pulse 80 11/19/19 07:00 Resp 16 11/19/19 07:00 BP 137/61 11/19/19 07:00 Pulse Ox 94 L 11/19/19 09:57 Intake & Output 11/18/19 11/19/19 11/19/19 18:59 06:59 18:59 Intake Total 200 Balance 200 Intake: Oral 200 Other: Voiding Method Bedside Commode # Voids 3 2 - Exam GENERAL EXAM: Alert, 34-year-old female patient, on room air with pulse ox of 94%, comfortable in no apparent distress. HEAD: Normocephalic/atraumatic. EYES: Normal reaction of pupils, equal size. Conjunctiva pink, sclera white. NOSE: Clear with pink turbinates. THROAT: No erythema or exudates. NECK: No masses, no JVD, no thyroid enlargement, no adenopathy. CHEST: No chest wall deformity. Symmetrical expansion. LUNGS: Equal air entry with bilateral wheeze, few scattered rhonchi. CVS: Regular rate and rhythm, normal S1 and S2, no gallops, no murmurs, no rubs ABDOMEN: Soft, nontender. No hepatosplenomegaly, normal bowel sounds, no guarding or rigidity. EXTREMITIES: No clubbing, no edema, no cyanosis, 2+ pulses and upper and lower extremities. MUSCULOSKELETAL: Muscle strength and tone normal. SPINE: No scoliosis or deformity SKIN: No rashes CENTRAL NERVOUS SYSTEM: No focal deficits, tone is normal in all 4 extremities. PSYCHIATRIC: Alert and oriented -3. Appropriate affect. Intact judgment and insight. - Labs CBC & Chem 7: 11/19/19 07:38 11/19/19 07:38 Labs: Abnormal Lab Results - Last 24 Hours (Table) 11/18/19 11/18/19 11/18/19 Range/Units 07:23 12:03 17:05 RBC (3.80-5.40) m/uL Hgb (11.4-16.0) gm/dL Hct (34.0-46.0) % MCHC (31.0-37.0) g/dL RDW (11.5-15.5) % Plt Count (150-450) k/uL Chloride (98-107) mmol/L BUN (7-17) mg/dL POC Glucose (mg/dL) 121 H 175 H (75-99) mg/dL Calcium (8.4-10.2) mg/dL Iron 17 L (50-170) ug/dL % Saturation 4.74 L (12.00-45.00) Total Bilirubin (0.2-1.3) mg/dL AST (14-36) U/L Lactate Dehydrogenase (313-618) U/L C-Reactive Protein (<10.0) mg/L Total Protein (6.3-8.2) g/dL Albumin (3.5-5.0) g/dL 11/19/19 11/19/19 11/19/19 Range/Units 07:25 07:38 07:38 RBC 3.07 L (3.80-5.40) m/uL Hgb 8.2 L (11.4-16.0) gm/dL Hct 26.5 L (34.0-46.0) % MCHC 30.9 L (31.0-37.0) g/dL RDW 20.5 H (11.5-15.5) % Plt Count 492 H (150-450) k/uL Chloride 108 H (98-107) mmol/L BUN 6 L (7-17) mg/dL POC Glucose (mg/dL) 119 H (75-99) mg/dL Calcium 8.1 L (8.4-10.2) mg/dL Iron (50-170) ug/dL % Saturation (12.00-45.00) Total Bilirubin <0.1 L (0.2-1.3) mg/dL AST 13 L (14-36) U/L Lactate Dehydrogenase 853 H (313-618) U/L C-Reactive Protein 34.1 H (<10.0) mg/L Total Protein 5.2 L (6.3-8.2) g/dL Albumin 2.6 L (3.5-5.0) g/dL Microbiology - Last 24 Hours (Table) 11/16/19 17:04 Blood Culture - Preliminary Blood No Growth after 48 hours Assessment and Plan Assessment: #1. Acute hypoxic respiratory failure related to possibility of atypical pneumonia, possible aspiration, or possibility of COVID 19 pneumonitis, COVID 19 PCR negative though inflammatory markers high. #2. Recent hospitalization at an inpatient psychiatric facility for 13 days in [place], discharged on 11/10/2019, was tested there for Covid 19, and the results are unknown #3. History of mild intermittent bronchial asthma #4. History of anxiety #5. History of PTSD #6. Bipolar disorder #7. History of seizure disorder, last seizure was a month ago according to the patient #8. Crohn's disease #9. GERD/reflux Plan: The patient was seen and evaluated by Dr. Palma Still somewhat bronchospastic and wheezy Continue the current treatment plan for now Educated regarding the importance of complete smoking cessation We will continue to follow Probable home in the a.m. I, the cosigning physician, performed a history & physical examination of the patient. Lungs sounds with bilateral end expiratory wheeze, few scattered rhonchi. Maintaining good O2 saturations in the 90s on room air. I discussed the assessment and plan of care with my nurse practitioner, Denise Maldonado. I attest to the above note as dictated by her.
[2019-11-19 12:09] LABS: Glucose,Whole Blood 196 mg/dL (75-99)
[2019-11-19] MEDS: DIVALPROEX ER 500 MG TAB.ER.24H PO SCH ×2 (14:34→21:14)
--- NOTE | 2019-11-19 15:23 | P.PN ---
Subjective Progress Note Date: 11/19/19 Patient was seen and examined. No acute events overnight. Patient reports excruciating back pain, 10 out of 10 in severity related to her chronic pain. Requesting IV narcotics. She denies any chest pain, shortness breath or palpitations. No nausea or vomiting. No fever or chills. Objective - Vital Signs Vital signs: Vital Signs Temp 98.4 F 11/19/19 07:00 Pulse 80 11/19/19 07:00 Resp 16 11/19/19 07:00 BP 137/61 11/19/19 07:00 Pulse Ox 94 L 11/19/19 09:57 Intake & Output 11/18/19 11/19/19 11/19/19 18:59 06:59 18:59 Intake Total 200 Balance 200 Intake: Oral 200 Other: Voiding Method Bedside Commode # Voids 3 2 2 - Exam General: [non toxic], [no distress], [appears at stated age] Derm: [warm], [dry] Head: [atraumatic], [normocephalic], [symmetric] Eyes: [EOMI], [no lid lag], [anicteric sclera] Mouth: [no lip lesion], [mucus membranes moist] Cardiovascular: [S1S2 reg], [no murmur], [positive DP pulse bilateral], Lungs: [Wheezing bilateral], [no rhonchi, no rales] , [no accessory muscle use] Abdominal: [soft], [mild tenderness to palpation in all 4 quadrants], [no guarding], [no appreciable organomegaly] Ext: [no gross muscle atrophy], [no edema], [no contractures] Neuro: [no focal neuro deficits] Psych: [Alert], [oriented], [appropriate affect] - Labs CBC & Chem 7: 11/19/19 07:38 11/19/19 07:38 Labs: Abnormal Lab Results - Last 24 Hours (Table) 11/18/19 11/18/19 11/19/19 Range/Units 07:23 17:05 07:25 RBC (3.80-5.40) m/uL Hgb (11.4-16.0) gm/dL Hct (34.0-46.0) % MCHC (31.0-37.0) g/dL RDW (11.5-15.5) % Plt Count (150-450) k/uL Chloride (98-107) mmol/L BUN (7-17) mg/dL POC Glucose (mg/dL) 175 H 119 H (75-99) mg/dL Calcium (8.4-10.2) mg/dL Iron 17 L (50-170) ug/dL % Saturation 4.74 L (12.00-45.00) Total Bilirubin (0.2-1.3) mg/dL AST (14-36) U/L Lactate Dehydrogenase (313-618) U/L C-Reactive Protein (<10.0) mg/L Total Protein (6.3-8.2) g/dL Albumin (3.5-5.0) g/dL 11/19/19 11/19/19 11/19/19 Range/Units 07:38 07:38 12:02 RBC 3.07 L (3.80-5.40) m/uL Hgb 8.2 L (11.4-16.0) gm/dL Hct 26.5 L (34.0-46.0) % MCHC 30.9 L (31.0-37.0) g/dL RDW 20.5 H (11.5-15.5) % Plt Count 492 H (150-450) k/uL Chloride 108 H (98-107) mmol/L BUN 6 L (7-17) mg/dL POC Glucose (mg/dL) 196 H (75-99) mg/dL Calcium 8.1 L (8.4-10.2) mg/dL Iron (50-170) ug/dL % Saturation (12.00-45.00) Total Bilirubin <0.1 L (0.2-1.3) mg/dL AST 13 L (14-36) U/L Lactate Dehydrogenase 853 H (313-618) U/L C-Reactive Protein 34.1 H (<10.0) mg/L Total Protein 5.2 L (6.3-8.2) g/dL Albumin 2.6 L (3.5-5.0) g/dL Microbiology - Last 24 Hours (Table) 11/16/19 17:04 Blood Culture - Preliminary Blood No Growth after 48 hours Assessment and Plan Assessment: Atypical pneumonia with acute hypoxic respiratory failure -Suspect COVID 19 pneumonia -Follow CBC, CMP, LDH, d-dimer, CRP and fibrinogen -Continue with dexamethasone -COVID negative -Discussed having family quarantine -Follow chest x-ray until clear -Pulmonary recommendations appreciated -Continue with Rocephin and Zithromax, though clinically doubt bacterial pneumonia with pro-calcitonin less than 2 - Await legionella urine antigen Seizure disorder -Patient reports taking Depakote 2 g by mouth twice a day. Intractable abdominal pain - fecal stasis on CT likely due to chronic opiate use, patient complaining of diarrhea - limit IV pain medications with fecal stasis - percocet Costochondritis -Continue with home Percocet -Increased Dilaudid 1 mg IV every 6 hours as needed Iron deficiency Anemia -ferrous sulfate on discharge -Repeat CBC in a.m. Opiate use disorder -Patient will need outpatient follow-up to attempt to wean off of her chronic opiate medications Intractable headache, improved Chronic conditions: Fibromyalgia GERD Seizure disorder Crohn's disease Irritable bowel syndrome Chronic back pain [Discussed with Dr. Palma, observed for 1 more day. Patient is pending clinical improvement. Likely DC in 1-2 days.]
[2019-11-19] MEDS ORDERED: AZITHROMYCIN 500 MG TAB PO SCH (16:00)
[2019-11-19] MEDS: ONDANSETRON 4 MG/2 ML VIAL IVP PRN (16:53)
[2019-11-19 17:37] LABS: Glucose,Whole Blood 126 mg/dL (75-99)
[2019-11-19 20:29] LABS: Glucose,Whole Blood 137 mg/dL (75-99)
[2019-11-19] MEDS ORDERED: DIVALPROEX ER 500 MG TAB.ER.24H PO SCH (21:00)
[2019-11-19] MEDS: QUEtiapine 100 MG TAB PO SCH (21:11)
[2019-11-19] MEDS: MELATONIN 3 MG TABLET PO SCH (21:12)
[2019-11-20] MEDS: INSULIN ASPART (NovoLOG) 100 UNIT/ML VIAL SQ SCH ×2 (04:19→07:33)
[2019-11-20] MEDS: LEVOTHYROXINE 137 MCG TAB PO SCH (06:13)
[2019-11-20] MEDS: LORazepam 1 MG TAB PO PRN (07:32)
[2019-11-20] MEDS: PANTOPRAZOLE 40 MG TABLET PO SCH (07:32)
[2019-11-20] MEDS: oxyCODONE-APAP 10-325MG 1 EACH TAB PO PRN (07:32)
[2019-11-20 07:38] LABS: Glucose,Whole Blood 136 mg/dL (75-99)
[2019-11-20 08:01] VITALS: BP 137/92; PULSE 89; RESP 16; TEMP 97.8
[2019-11-20 08:04] LABS: ALT 14 U/L (4-34); AST 17 U/L (14-36); African American GFR (CKD) >90 (>60 ml/min/1.73 sqM); Albumin 2.8 g/dL (3.5-5.0); Alkaline Phosphatase 91 U/L (38-126); Anion Gap 8 mmol/L; Blood Urea Nitrogen 4 mg/dL (7-17); Calcium 8.3 mg/dL (8.4-10.2); Carbon Dioxide 25 mmol/L (22-30); Chloride 107 mmol/L (98-107); Creatine Kinase 29 U/L (30-135); Glucose 110 mg/dL (74-99); LDH 765 U/L (313-618); Magnesium 1.9 mg/dL (1.6-2.3); Non-African American GFR(CKD) >90 (>60 ml/min/1.73 sqM); Potassium 4.3 mmol/L (3.5-5.1); Sodium 140 mmol/L (137-145); Total Bilirubin 0.3 mg/dL (0.2-1.3); Total Protein 5.6 g/dL (6.3-8.2)
[2019-11-20 08:07] LABS: Anisocytosis Slight; Basophils % (A) 0 %; Eosinophils # (A) 0.3 k/uL (0-0.7); Eosinophils % (A) 3 %; HCT 30.5 % (34.0-46.0); HGB 9.1 gm/dL (11.4-16.0); Hypochromasia Marked; Lymphocytes # (A) 3.7 k/uL (1.0-4.8); Lymphocytes % (A) 40 %; MCH 25.9 pg (25.0-35.0); MCHC 29.8 g/dL (31.0-37.0); MCV 87.1 fL (80.0-100.0); Mean Platelet Volume 8.8; Monocytes # (A) 0.8 k/uL (0-1.0); Monocytes % (A) 9 %; Neutrophils # (A) 4.2 k/uL (1.3-7.7); Neutrophils % (A) 46 %; Platelet Count 884 k/uL (150-450); RBC 3.51 m/uL (3.80-5.40); RDW 19.8 % (11.5-15.5); WBC 9.2 k/uL (3.8-10.6)
[2019-11-20 09:09] LABS: C Reactive Protein 19.7 mg/L (<10.0)
[2019-11-20] MEDS: ALBUTEROL HFA INHALER INHALATION SCH (09:15)
[2019-11-20] MEDS: FLUTICASONE 110 MCG INHALER INHALATION SCH (09:15)
[2019-11-20] MEDS: GABAPENTIN 400 MG CAP PO SCH (09:17)
[2019-11-20] MEDS: PARoxetine 20 MG TAB PO SCH (09:18)
[2019-11-20] MEDS: NICOTINE 21MG/24HR PATCH TRANSDERM SCH (09:18)
[2019-11-20] MEDS: MONTELUKAST 10 MG TAB PO SCH (09:18)
[2019-11-20] MEDS: DIVALPROEX ER 500 MG TAB.ER.24H PO SCH (09:19)
[2019-11-20] MEDS: RIVAROXABAN 2.5 MG TABLET PO SCH (09:20)
[2019-11-20] MEDS: dexAMETHasone 2 MG TAB PO SCH (09:20)
[2019-11-20 11:43] LABS: Ferritin 32.7 ng/mL (10.0-291.0)
--- NOTE | 2019-11-20 12:25 | P.PN ---
Subjective Progress Note Date: 11/20/19 Principal diagnosis: Acute hypoxic respiratory failure secondary to atypical pneumonia possible aspiration, COVID 19 ruled out 34-year-old white female patient of Dr. Isidro, with a medical history of mild intermittent bronchial asthma, seizure disorder, GERD/reflux, anxiety, bipolar, PTSD, Crohn's disease, who presented to the hospital on 11/16/2019 with complaints of generalized aches and pains, shortness of breath, patient states she was gasping for air, but denied any fever, denied any cough or phlegm production, denied any chest pain or hemoptysis. Patient was recently discharged from a inpatient psychiatric facility where she was hospitalized for 13 days and where she checked involuntarily. She states she was tested for COVID 19 virus there, however results are unknown. Patient is a current smoker. She is on Singulair, Claritin, Qvar for her history of asthma. Denies any nausea vomiting or diarrhea. Chest x-ray was completed in the ER showing interstitial and patchy opacities in the mid and lower lungs consideration for interstitial pneumonitis, atypical infections and aspiration. Pulse ox was 87% on room air, patient was placed on supplemental oxygen which she intermittently takes often desats into the low 80s. Patient is afebrile, hemodynamically stable. No altered mentation. Labs showed white blood cell count of 12.9, hemoglobin of 9.2, fibrinogen was 561, d-dimer was 0.92, sodium is 132, the rest of the electrolytes and renal profile were within normal limits, catheter was 1.9, LFTs were within normal limits, LDH was elevated at 1817, troponins were negative at 0.0-32, CRP was 297, proBNP was 8190, pro-calcitonin was elevated t o 0.42. Echocardiogram showed preserved LV function with EF of 65-70%, aortic valve was trileaflet and structurally normal, trace mitral regurg, mild tricuspid regurg, no evidence of pulmonary hypertension with right-sided pressures less than 35 mmHg. Patient was started on empiric antibiotics in the form of azithromycin and Rocephin, she was given IV Decadron, and started on nebulized bronchodilators, her Covid 19 testing is pending at this time. This morning she continues to require supplemental oxygen currently at 5 L, and her pulse ox is 94%. The patient is seen today 11/18/2019 in follow-up on the regular medical floor. She is currently sitting up in bed. Awake and alert in no acute distress. She is maintaining O2 saturations in the 90s on 2 L/m per nasal cannula. She's been afebrile. Hemodynamically stable. Still with dyspneic on minimal exertion. Still with a loose nonproductive cough. Blood culture reveals no growth to date. Covid 19 screen negative. White count 11.2. Hemoglobin 7.8. Sodium 135. Potassium 4.4. Creatinine 0.74. LDH 1173. Troponin negative. C- reactive protein 85.7. She is continued on ceftriaxone and azithromycin. Remains on Decadron, Lovenox, albuterol. Habitrol patch in place. The patient is seen today 11/19/2019 follow-up on the regular medical floor. She is awake and alert in no acute distress. She is maintaining O2 saturations in the 90s on room air. She's been afebrile. Hemodynamically stable. Blood culture reveals no growth. White count 9.0. Hemoglobin 8.2. Sodium 137. Potassium 4.4. Creatinine 0.72. LDH 853. C-reactive protein 34. She remains on Decadron, bronchodilators, Singulair, Xarelto. Habitrol patch in place. Antibiotics in the form of ceftriaxone and azithromycin. Repeat Covid 19 screen pending. Legionella pending. On 11/20/2019 patient seen in follow-up on the regular medical surgical floor. She is awake and alert, in no acute distress, she is oriented 3, she is sitting up in bed, breathing is comfortable, she states she is coughing up some phlegm, brownish in color, still feels tired, but appears to be comfortable. Room air pulse ox is 97%, hemodynamically stable, no altered mentation, no fever or chills. No nausea vomiting or diarrhea, Covid 19 has been ruled out Objective - Vital Signs Vital signs: Vital Signs Temp 97.8 F 11/20/19 07:00 Pulse 89 11/20/19 07:00 Resp 16 11/20/19 07:00 BP 137/92 11/20/19 07:00 Pulse Ox 97 11/20/19 07:00 Intake & Output 11/19/19 11/20/19 11/20/19 18:59 06:59 18:59 Other: Voiding Method Toilet # Voids 2 2 # Bowel Movements 0 - Exam GENERAL EXAM: Alert, active, comfortable in no apparent distress. HEAD: Normocephalic/atraumatic. EYES: Normal reaction of pupils, equal size. Conjunctiva pink, sclera white. NOSE: Clear with pink turbinates. THROAT: No erythema or exudates. NECK: No masses, no JVD, no thyroid enlargement, no adenopathy. CHEST: No chest wall deformity. Symmetrical expansion. LUNGS: Equal air entry with a few basilar crackles, but no wheeze, rhonchi or du llness. CVS: Regular rate and rhythm, normal S1 and S2, no gallops, no murmurs, no rubs ABDOMEN: Soft, nontender. No hepatosplenomegaly, normal bowel sounds, no guarding or rigidity. EXTREMITIES: No clubbing, no edema, no cyanosis, 2+ pulses and upper and lower extremities. MUSCULOSKELETAL: Muscle strength and tone normal. SPINE: No scoliosis or deformity SKIN: No rashes CENTRAL NERVOUS SYSTEM: Alert and oriented -3. No focal deficits, tone is normal in all 4 extremities. PSYCHIATRIC: Alert and oriented -3. Appropriate affect. Intact judgment and insight. - Labs CBC & Chem 7: 11/20/19 07:10 11/20/19 07:10 Labs: Abnormal Lab Results - Last 24 Hours (Table) 11/19/19 11/19/19 11/20/19 Range/Units 17:28 20:28 07:10 RBC 3.51 L (3.80-5.40) m/uL Hgb 9.1 L (11.4-16.0) gm/dL Hct 30.5 L (34.0-46.0) % MCHC 29.8 L (31.0-37.0) g/dL RDW 19.8 H (11.5-15.5) % Plt Count 884 H (150-450) k/uL BUN (7-17) mg/dL Glucose (74-99) mg/dL POC Glucose (mg/dL) 126 H 137 H (75-99) mg/dL Calcium (8.4-10.2) mg/dL Lactate Dehydrogenase (313-618) U/L Creatine Kinase (30-135) U/L C-Reactive Protein (<10.0) mg/L Total Protein (6.3-8.2) g/dL Albumin (3.5-5.0) g/dL 11/20/19 11/20/19 Range/Units 07:10 07:33 RBC (3.80-5.40) m/uL Hgb (11.4-16.0) gm/dL Hct (34.0-46.0) % MCHC (31.0-37.0) g/dL RDW (11.5-15.5) % Plt Count (150-450) k/uL BUN 4 L (7-17) mg/dL Glucose 110 H (74-99) mg/dL POC Glucose (mg/dL) 136 H (75-99) mg/dL Calcium 8.3 L (8.4-10.2) mg/dL Lactate Dehydrogenase 765 H (313-618) U/L Creatine Kinase 29 L (30-135) U/L C-Reactive Protein 19.7 H (<10.0) mg/L Total Protein 5.6 L (6.3-8.2) g/dL Albumin 2.8 L (3.5-5.0) g/dL Microbiology - Last 24 Hours (Table) 11/16/19 17:04 Blood Culture - Preliminary Blood No Growth after 72 hours Assessment and Plan Plan: Assessment: #1. Shortness of breath and acute hypoxic respiratory failure related to possibility of atypical pneumonia, possible aspiration, or possibility of COVID 19 pneumonitis, COVID 19 PCR pending. #2. Recent hospitalization at an inpatient psychiatric facility for 13 days in [place], discharged on 11/10/2019, was tested there for Covid 19, and the results are unknown #3. History of mild intermittent bronchial asthma #4. History of anxiety #5. History of PTSD #6. Bipolar disorder #7. History of seizure disorder, last seizure was a month ago according to the patient #8. Crohn's disease #9. GERD/reflux Plan: Patient is doing well, clinically stable, no acute events overnight, no fever or chills, from pulmonary perspective patient is stable for discharge home today on oral course of antibiotics, follow-up chest x-ray and follow-up with Dr. Sánchez in the office in 7-10 days. I performed a history & physical examination of the patient and discussed their management with my nurse practitioner, Mary Kleler. I reviewed the nurse practitioner's note and agree with the documented findings and plan of care. Lung sounds are positive for diminished breath sounds. The findings and the impression was discussed with the patient. I attest to the documentation by the nurse practitioner. Time with Patient: Less than 30
--- NOTE | 2019-11-20 12:47 | P.DS ---
Providers Date of admission: 11/16/19 16:39 Expected date of discharge: 11/20/19 Attending physician: Katt Payne, Consults: 11/16/19 16:39 Consult Physician Routine Consulting Provider: Asif Archer Consult Reason/Comments: hypoxia Do you want consulting provider notified?: Yes Primary care physician: Pedro Isidro [facility] Course: The patient is a 34-year-old female with mild intermittent asthma, Crohn's disease, fibromyalgia, hypothyroidism, and multiple other comorbid conditions who presented to the ED with complaints of shortness of breath. TDenied exp osure to any known Covid patients. In the emergency room, laboratory evaluation revealed leukocytosis of 12.9, d-dimer elevated 0.92, troponin I 0.023, proBNP 8190, CRP 297, LDH 1817, and lactic acid 1.9. Chest x-ray was positive for interstitial and patchy opacities mid and lower lungs. The patient was admitted for suspected Covid. EKG revealed normal sinus rhythm at [address]/T- wave changes. She was noted to be hypoxic with SpO2 of of 90% on 4 L NC. She was started on dexamethasone. She was also started on Lovenox subcutaneous. Pulmonary was consulted who agreed with continued dexamethasone. They also recommended adding Zithromax for possible atypical coverage. She had improvement in her SpO2 on 5L nasal cannula on the morning of 11/16. Initial Covid test came back negative however will repeat Covid testing due to a clinical syndrome consistent with Covid 19 pneumonitis. Patient was reporting continued abdominal pain on the morning of 11/17 and again requesting IV narcotics state that her Percocet 10/325, Ativan, and gabapentin 1200 mg 3 times a day was not sufficient to control her pain. Subsequently a CT abdomen and pelvis was ordered which was a suboptimal study as she would not drink all of the contrast. It did show overall moderate proximal colonic fecal stasis, possible fluid overload state with new small tiny pleural effusions, and moderate thickening fluid in the pelvis. Patient was continuously requesting IV narcotics along with increase in her Ativan and Valium during this hospital admission. She continued to complain of shortness of breath with wheezing and lower back pain on November 18, pulmonology recommended 1 more day for observation. Patient was seen and examined this morning. No acute events overnight. Patient continues to report lower back pain, 10 out of 10 in severity, requesting narcotic pain medication. She denies any chest pain, shortness of breath or palpitations. No nausea vomiting. No fever or chills. General: [non toxic], [no distress], [appears at stated age] Derm: [warm], [dry] Head: [atraumatic], [normocephalic], [symmetric] Eyes: [EOMI], [no lid lag], [anicteric sclera] Mouth: [no lip lesion], [mucus membranes moist] Cardiovascular: [S1S2 reg], [no murmur], [positive DP pulse bilateral], Lungs: [Decreased breath sounds bilateral], [no rhonchi, no rales] , [no accessory muscle use] Abdominal: [soft], [mild tenderness to palpation in all 4 quadrants], [no guarding], [no appreciable organomegaly] Ext: [no gross muscle atrophy], [no edema], [no contractures] Neuro: [no focal neuro deficits] Psych: [Alert], [oriented], [appropriate affect] Atypical pneumonia with acute hypoxic respiratory failure -Suspect COVID 19 pneumonia -Follow CBC, CMP, LDH, d-dimer, CRP and fibrinogen -Continue with dexamethasone to complete total of 10 days -COVID negative -Discussed having family quarantine -Follow chest x-ray until clear -Pulmonary recommendations appreciated -Continue four more days of Levaquin to complete a total of 7 days Seizure disorder -Patient reports taking Depakote 2 g by mouth twice a day. Intractable abdominal pain - fecal stasis on CT likely due to chronic opiate use, patient complaining of diarrhea - limit IV pain medications with fecal stasis - percocet Costochondritis -Continue with home Percocet Iron deficiency Anemia -Stable Opiate use disorder -Patient will need outpatient follow-up to attempt to wean off of her chronic opiate medications Intractable headache, improved Chronic conditions: Fibromyalgia GERD Seizure disorder Crohn's disease Irritable bowel syndrome Chronic back pain [Plans on DC home today to complete a total 10 days of dexamethasone, total 7 days of Levaquin, total 30 days of Eliquis. Advised on COVID precautions at home. Pulmonology cleared the patient for discharge. Anticipate DC home today. This complex discharge took about 45 minutes to complete.] Pertinent Studies: Chest x-ray, echocardiogram, CT abdomen and pelvis Patient Condition at Discharge: Stable Plan - Discharge Summary Discharge Rx Participant: No New Discharge Prescriptions: New Levofloxacin [Levaquin] 750 mg PO DAILY 4 Days #4 tab Albuterol Inhaler [Ventolin Hfa Inhaler] 2 puff INHALATION RT-QID #1 inhaler Rivaroxaban [Xarelto] 2.5 mg PO BID #60 tab Dexamethasone 6 mg PO DAILY #7 tablet Continue QUEtiapine [SEROquel] 500 mg PO HS Beclomethasone Dipropionate [Qvar 80 mcg] 2 puff INHALATION RT-DAILY Montelukast [Singulair] 10 mg PO DAILY Loratadine [Claritin] 10 mg PO DAILY PRN PRN Reason: ALLERGIES Levothyroxine Sodium [Synthroid] 137 mcg PO DAILY Balsalazide Disodium 2,250 mg PO TID Butalbital/Aspirin/Caffeine [Gldmjafduw-MDD-Lkmovglm Cap 50-325-40] 1 cap PO BID Gabapentin [Neurontin] 400 mg PO TID Lansoprazole [Prevacid] 15 mg PO QAM Lisinopril-Hctz 20-25 mg [Zestoretic 20-25] 2 tab PO DAILY oxyCODONE-APAP 10-325MG [Percocet 10-325 mg] 1 tab PO TID PARoxetine [Paxil] 20 mg PO DAILY LORazepam [Ativan] 1 mg PO BID PRN PRN Reason: Anxiety Divalproex Sodium [Divalproex Sodium ER] 2,000 mg PO BID Discontinued Promethazine [Phenergan] 25 - 50 mg PO Q8H PRN PRN Reason: Nausea Phentermine HCl [Adipex-P] 37.5 mg PO DAILY Discharge Medication List QUEtiapine [SEROquel] 500 mg PO HS 04/22/17 [History] Beclomethasone Dipropionate [Qvar 80 mcg] 2 puff INHALATION RT-DAILY 02/07/18 [History] Levothyroxine Sodium [Synthroid] 137 mcg PO DAILY 08/07/18 [History] Loratadine [Claritin] 10 mg PO DAILY PRN 08/07/18 [History] Montelukast [Singulair] 10 mg PO DAILY 08/07/18 [History] Balsalazide Disodium 2,250 mg PO TID 11/16/19 [History] Butalbital/Aspirin/Caffeine [Nnftrzhezi-KJY-Vtxklujy Cap 50-325-40] 1 cap PO BID 11/16/19 [History] Gabapentin [Neurontin] 400 mg PO TID 11/16/19 [History] LORazepam [Ativan] 1 mg PO BID PRN 11/16/19 [History] Lansoprazole [Prevacid] 15 mg PO QAM 11/16/19 [History] Lisinopril-Hctz 20-25 mg [Zestoretic 20-25] 2 tab PO DAILY 11/16/19 [History] PARoxetine [Paxil] 20 mg PO DAILY 11/16/19 [History] oxyCODONE-APAP 10-325MG [Percocet 10-325 mg] 1 tab PO TID 11/16/19 [History] Albuterol Inhaler [Ventolin Hfa Inhaler] 2 puff INHALATION RT-QID #1 inhaler 11/19/19 [Rx] Dexamethasone 6 mg PO DAILY #7 tablet 11/19/19 [Rx] Divalproex Sodium [Divalproex Sodium ER] 2,000 mg PO BID 11/19/19 [History] Levofloxacin [Levaquin] 750 mg PO DAILY 4 Days #4 tab 11/19/19 [Rx] Rivaroxaban [Xarelto] 2.5 mg PO BID #60 tab 11/19/19 [Rx] Follow up Appointment(s)/Referral(s): Pedro Isidro PAC [Primary Care Provider] - 11/27/19 2:20 pm Patient Instructions/Handouts: Bacterial Pneumonia (DC) Activity/Diet/Wound Care/Special Instructions: Diet: Low-salt Follow-up PCP within 3 days of discharge. Take all medications as advised. Come back to the ED or call 911 for worsening chest pain, shortness of breath, palpitations, lightheadedness. You will need to self isolate for 2 weeks for concerns of COVID 19. Discharge Disposition: HOME SELF-CARE
--- NOTE | 2019-11-20 13:17 | CDI ---
Documentation Clarification Form Date: 11/20/2019 12:32:58 PM From: Julisa Prabhakar RN, CCDS Admit Date: 11/16/2019 04:39:00 PM Patient Name: Stacey Mistry Visit Number: [id number] Discharge Date: ATTENTION: The Clinical Documentation Specialists (CDI) and [facility] Coding Staff appreciate your assistance in clarifying documentation. Please respond to the clarification below the line at the bottom and electronically sign. The CDI & [facility] Coding staff will review the response and follow-up if needed. Please note: Queries are made part of the Legal Health Record. If you have any questions, please contact the author of this message via ITS. Dr. Stefan Alvarez 11/15-11/18 suspicious/suspected COVID 19 pneumonia is documented in the H&P and subsequent progress notes. COVID-19 diagnosis requires a confirmed or positive result or false negative, treating for COVID-19 infection. Please provide the most appreciate response for the patient condition. 11/18 Pulmonary progress notes: Acute hypoxic respiratory failure related to possibility of atypical pneumonia, possible aspiration, or possibility of COVID 19 pneumonitis, COVID 19 PCR negative though inflammatory markers high. 11/19 Pulmonary progress notes: Acute hypoxic respiratory failure secondary to typical pneumonia possible aspiration, COVID 19 ruled out. Patient history/risk factors: Asthma, Seizure Disorder, Fibromyalgia, Chron's disease Clinical Indicators: 34-year-old female who presented to ED on 11/15 with complaints of shortness of breath, decreased exercise tolerance. She reports a cough productive of whitish phlegm. 11/15 Labs: WBC 12.9, D-dimer 0.92, CRP 297, LDH 1817, Lactic acid 1.9, , Procalcitonin 0.42 11/15 CXR: Interstitial and patchy opacities mid and lower lungs. Interstitial pneumonitis, atypical infections and aspiration are some differential consideration. 11/15 Viral Panel: Covonavirus (PCR) Not detected, 11/15 @ 15:04 Vital Signs: 150/79 111 22 98.7 87 % RA Treatment: .9 NS 1 Liter bolus 11/15 Solu-medrol 125 mg IV x1 STA 11/15 Dexamethasone 10 mg IV X1 stat then 6 mg po daily Rocephin 1 gm IVPB daily Zithromax 500 mg po daily Isolation precautions Monitor O2 Sat's (Titrate) In order to capture the severity of condition, please clarify the COVID-19 status: COVID-19 ruled out False negative, treating for COVID-19 infection Other, please specify Unable to determine (Last Form Revision: June 2019) false negative treating for covid MTDD
[2019-11-20 15:47] LABS: Ferritin 28.1 ng/mL (10.0-291.0)
--- NOTE | 2019-11-22 09:36 | CDI ---
Documentation Clarification Form Date: 11/22/19 From: Alycia Martinez Phone: If you have a question about this query, please contact Fela Vences, [employer] at [phone] between 8am and 5pm. Admit Date: 11/16/19 Discharge Date:11/20/19 Patient Name: Stacey Mistry Visit Number: [id number] ATTENTION: The Clinical Documentation Specialists (CDI) and [facility] Coding Staff appreciate your assistance in clarifying documentation. Please respond to the clarification below the line at the bottom and electronically sign. The CDI & [facility] Coding staff will review the response and follow-up if needed. Please note: Queries are made part of the Legal Health Record. If you have any questions, please contact the author of this message via ITS. Dear Dr. Alvarez The patient presented with the following: shortness of breath. History/Risk Factors: Starting new medication, pneumonia, asthma exacerbation, acute hypoxic respiratory failure Clinical Indicators: shortness of breath correlating with starting new psychiatric medication is documented in the ED note. Lab findings: WBC 12.9, sodium 132, Covid negative Radiology findings: Interstitial pneumonitis, atypical infections and aspiration are some differential consdierations. Vital Signs: T. 98.7, P. 111, R 22, BP 150/79 Treatment: IV Decadron 10 mg once, Dexamethasone 6 mg PO daily In your professional opinion, can you please clarify if the allergic reaction was? Ruled In Ruled Out Other, please specify Unable to determine ruled out MTDD
== END 2019-11-20 12:17 | disposition home or self-care (01) | DRG 177 ==
LOC: EC 15:00 → 4SSUR 16:39
PROVIDERS: ADMIT Internal Medicine; ATTEND Internal Medicine
DX: U07.1 COVID-19 (principal); J96.01 Acute respiratory failure with hypoxia; J12.89 Other viral pneumonia; J45.21 Mild intermittent asthma with (acute) exacerbation; K50.90 Crohn's disease, unspecified, without complications; J90 Pleural effusion, not elsewhere classified; D50.9 Iron deficiency anemia, unspecified; E03.9 Hypothyroidism, unspecified; F17.200 Nicotine dependence, unspecified, uncomplicated; F31.9 Bipolar disorder, unspecified; F43.10 Post-traumatic stress disorder, unspecified; G40.909 Epilepsy, unspecified, not intractable, without status epilepticus; G62.9 Polyneuropathy, unspecified; G89.29 Other chronic pain; I10 Essential (primary) hypertension; K21.9 Gastro-esophageal reflux disease without esophagitis; K58.0 Irritable bowel syndrome with diarrhea; M79.7 Fibromyalgia; M94.0 Chondrocostal junction syndrome [Tietze]; F41.9 Anxiety disorder, unspecified; G43.909 Migraine, unspecified, not intractable, without status migrainosus; R51 Headache; K57.90 Diverticulosis of intestine, part unspecified, without perforation or abscess without bleeding; M54.5 Low back pain; R10.9 Unspecified abdominal pain; G56.00 Carpal tunnel syndrome, unspecified upper limb; E87.70 Fluid overload, unspecified; K59.8 Other specified functional intestinal disorders; I07.1 Rheumatic tricuspid insufficiency; Z79.890 Hormone replacement therapy; Z79.899 Other long term (current) drug therapy; Z79.891 Long term (current) use of opiate analgesic; Z88.1 Allergy status to other antibiotic agents; Z88.2 Allergy status to sulfonamides; Z88.8 Allergy status to other drugs, medicaments and biological substances; Z88.5 Allergy status to narcotic agent; Z90.49 Acquired absence of other specified parts of digestive tract; Z90.89 Acquired absence of other organs; Z83.3 Family history of diabetes mellitus; Z82.3 Family history of stroke; Z80.9 Family history of malignant neoplasm, unspecified; Z82.49 Family history of ischemic heart disease and other diseases of the circulatory system; Z83.49 Family history of other endocrine, nutritional and metabolic diseases; Z82.61 Family history of arthritis
CPT/HCPCS: 36415; 71045; 71046; 74176; 80053; 82550; 82728; 83540; 83550; 83605; 83615; 83735; 83880; 84145; 84484; 85025; 85027; 85379; 85384; 85610; 85730; 86140; 87040; 87449; 93005; 93306; 94640; 96361; 96365; 96375; 99285

== ENCOUNTER 2020-02-18 18:40 | Emergency (ER) | payer OTHER ==
[2020-02-18 18:54] VITALS: TEMP 97.8
[2020-02-18] MEDS ORDERED: SODIUM CHLORIDE 0.9% 1,000 ML IV ONE (19:43)
[2020-02-18] MEDS ORDERED: HYDROmorphone 1 MG/ML 1 ML SYRINGE IVP STA (19:43)
[2020-02-18] MEDS ORDERED: ONDANSETRON 4 MG/2 ML VIAL IVP STA (19:43)
[2020-02-18 20:07] LABS: Anisocytosis Slight; Basophils # (A) 0.1 k/uL (0-0.2); Basophils % (A) 0 %; Eosinophils # (A) 0.3 k/uL (0-0.7); Eosinophils % (A) 3 %; HGB 11.1 gm/dL (11.4-16.0); Hypochromasia Slight; Lymphocytes # (A) 4.4 k/uL (1.0-4.8); Lymphocytes % (A) 41 %; MCH 26.6 pg (25.0-35.0); MCHC 31.7 g/dL (31.0-37.0); MCV 83.9 fL (80.0-100.0); Mean Platelet Volume 6.8; Monocytes # (A) 0.7 k/uL (0-1.0); Monocytes % (A) 6 %; Neutrophils # (A) 5.1 k/uL (1.3-7.7); Neutrophils % (A) 47 %; Platelet Count 567 k/uL (150-450); RBC 4.18 m/uL (3.80-5.40); RDW 18.1 % (11.5-15.5); WBC 10.8 k/uL (3.8-10.6)
[2020-02-18 20:17] LABS: ALT 18 U/L (4-34); AST 17 U/L (14-36); African American GFR (CKD) >90 (>60 ml/min/1.73 sqM); Albumin 3.8 g/dL (3.5-5.0); Alkaline Phosphatase 94 U/L (38-126); Anion Gap 7 mmol/L; Blood Urea Nitrogen 9 mg/dL (7-17); Calcium 9.2 mg/dL (8.4-10.2); Carbon Dioxide 22 mmol/L (22-30); Chloride 109 mmol/L (98-107); Glucose 98 mg/dL (74-99); Non-African American GFR(CKD) >90 (>60 ml/min/1.73 sqM); Potassium 4.2 mmol/L (3.5-5.1); Sodium 138 mmol/L (137-145); Total Bilirubin 0.2 mg/dL (0.2-1.3)
--- NOTE | 2020-02-18 21:04 | CT ---
EXAMINATION TYPE: CT orbits w con DATE OF EXAM: 02/18/2020 COMPARISON: None HISTORY: Lt eye swelling, redness CT DLP: 260.2 mGycm Automated exposure control for dose reduction was used. CONTRAST: Performed with IV Contrast, patient injected with 100 mL of Isovue 300. Images were obtained from the bottom of the maxilla to the top of the frontal sinuses with IV contras t. There is fairly normal aeration of the paranasal sinuses. The orbital margins are intact. There is no evidence of retro-orbital mass. The globes are symmetric. There is no evidence of a blowout fracture . The maxilla is intact. Zygomatic arches appear normal. Nasal bone is intact. There is mild left ashish e preseptal periorbital soft tissue swelling. I see no bony destructive process. There is no discrete fluid collection. There is no evidence of a foreign body of the orbits. IMPRESSION: Left side periorbital soft tissue swelling consistent with cellulitis. No abscess.
[2020-02-18 21:18] VITALS: BP 124/85; PULSE 77; RESP 18
[2020-02-18] MEDS ORDERED: CEPHALEXIN 500MG STARTER PACK 4 CAP BTL PO STA (21:37)
--- NOTE | 2020-02-18 21:37 | ED ---
General Adult HPI - General Source: patient, EMS Mode of arrival: EMS Limitations: no limitations <Autumn Blanc - Last Filed: 02/19/20 00:33> <Alyssa Person - Last Filed: 02/20/20 07:42> - General Chief complaint: Eye Problems Stated complaint: pain in eyes Time Seen by Provider: 02/18/20 19:01 - History of Present Illness Initial comments: 35-year-old female patient presents to the emergency department today for evaluation of left eye swelling and redness. Patient states for the last 3 weeks she has been dealing with styes to both eyes intermittently. States she did see her primary care physician and was given prescription for eyedrops and eye ointment. States she has been doing warm compresses and using ointments without much relief. Patient states when she woke this morning she had increased swelling and redness over the left eye. States that today the eyes become more painful especially with movement looking in the rightward direction. She states she is having some green drainage from the eye. Denies any fever or chills. She is also reporting a mild headache but denies any blurred or double vision. Denies nausea or vomiting. Patient denies any recent rash, cough, shortness of breath, chest pain, abdominal pain, nausea, vomiting, diarrhea, constipation, back pain, numbness, tingling, dizziness, weakness, hematuria, dysuria, urinary urgency, urinary frequency, or any other complaints. (Autumn Blanc) - Related Data Home Medications Medication Instructions Recorded Confirmed QUEtiapine [SEROquel] 500 mg PO HS 04/22/17 11/16/19 Beclomethasone Dipropionate [Qvar 2 puff INHALATION RT-DAILY 02/07/18 11/16/19 80 mcg] Levothyroxine Sodium [Synthroid] 137 mcg PO DAILY 08/07/18 11/16/19 Loratadine [Claritin] 10 mg PO DAILY PRN 08/07/18 11/16/19 Montelukast [Singulair] 10 mg PO DAILY 08/07/18 11/16/19 Balsalazide Disodium 2,250 mg PO TID 11/16/19 11/16/19 Butalbital/Aspirin/Caffeine 1 cap PO BID 08/13/20 08/13/20 [Hxtujoesuy-SLP-Cyfoybkx Cap 50-325-40] Gabapentin [Neurontin] 400 mg PO TID 11/16/19 11/16/19 LORazepam [Ativan] 1 mg PO BID PRN 11/16/19 11/16/19 Lansoprazole [Prevacid] 15 mg PO QAM 11/16/19 11/16/19 Lisinopril-Hctz 20-25 mg 2 tab PO DAILY 11/16/19 11/16/19 [Zestoretic 20-25] PARoxetine [Paxil] 20 mg PO DAILY 11/16/19 11/16/19 oxyCODONE-APAP 10-325MG [Percocet 1 tab PO TID 11/16/19 11/16/19 10-325 mg] Divalproex Sodium [Divalproex 2,000 mg PO BID 11/19/19 11/19/19 Sodium ER] Previous Rx's Medication Instructions Recorded Albuterol Inhaler [Ventolin Hfa 2 puff INHALATION RT-QID #1 inhaler 11/19/19 Inhaler] Dexamethasone 6 mg PO DAILY #7 tablet 11/19/19 Levofloxacin [Levaquin] 750 mg PO DAILY 4 Days #4 tab 11/19/19 Rivaroxaban [Xarelto] 2.5 mg PO BID #60 tab 11/19/19 Cephalexin [Keflex] 500 mg PO Q6H #40 cap 02/18/20 Cephalexin [Keflex] 500 mg PO Q6HR #40 cap 02/18/20 Allergies Allergy/AdvReac Type Severity Reaction Status Date / Time dicyclomine [From Bentyl] Allergy Severe Hallucinati Verified 11/16/19 18:07 ons granisetron HCl [From Kytril] Allergy Severe Anaphylaxis Verified 11/16/19 18:07 baclofen Allergy Rash/Hives Verified 11/16/19 18:07 butorphanol tartrate Allergy Rash/Hives Verified 11/16/19 18:07 [From Stadol] ketorolac tromethamine Allergy Rash/Hives Verified 11/16/19 18:07 [From Toradol] meperidine HCl [From Demerol] Allergy Swelling Verified 11/16/19 18:07 pregabalin [From Lyrica] Allergy Unknown Verified 11/16/19 18:07 risperidone [From Risperdal] Allergy Dyspnea Verified 11/16/19 18:07 sulfamethoxazole Allergy Rash/Hives Verified 11/16/19 18:07 [From Bactrim] trimethoprim [From Bactrim] Allergy Rash/Hives Verified 11/16/19 18:07 codeine AdvReac Vomiting & Verified 11/16/19 18:07 Headache methylprednisolone AdvReac Vomiting & Verified 11/16/19 18:07 [From Medrol] Headache Review of Systems ROS Other: All systems not noted in ROS Statement are negative. <Autumn Blanc - Last Filed: 02/19/20 00:33> ROS Other: All systems not noted in ROS Statement are negative. <Alyssa Person - Last Filed: 02/20/20 07:42> ROS Statement: Those systems with pertinent positive or pertinent negative responses have been documented in the HPI. Past Medical History Past Medical History: Asthma, Fibromyalgia, GERD/Reflux, Neurologic Disorder, Seizure Disorder, Thyroid Disorder Additional Past Medical History / Comment(s): crohns disease, diverticulosis, ibs, carpal tunnel, anemia, chronic back pain , migraines, pinched nerves, chronic colitis. History of Any Multi-Drug Resistant Organisms: None Reported Past Surgical History: Adenoidectomy, Appendectomy, Cholecystectomy, Orthopedic Surgery, Tonsillectomy Additional Past Surgical History / Comment(s): EGD/colonoscopy, right ankle surgery Past Anesthesia/Blood Transfusion Reactions: No Reported Reaction Additional Past Anesthesia/Blood Transfusion Reaction / Comment(s): hallucinations Past Psychological History: Anxiety, Bipolar, Depression, PTSD Smoking Status: Current every day smoker Past Alcohol Use History: None Reported Past Drug Use History: None Reported - Past Family History Father Family Medical History: Diabetes Mellitus, Hyperlipidemia Mother Family Medical History: Cancer, CVA/TIA, Deep Vein Thrombosis (DVT), Osteoarthritis (OA), Thyroid Disorder Additional Family Medical History / Comment(s): Extensive tattoos throughout body <Autumn Blanc - Last Filed: 02/19/20 00:33> General Exam Limitations: no limitations General appearance: alert, in no apparent distress, other (This is a well- developed, well-nourished adult female patient in no acute distress. Vital signs upon presentation are temperature 97.8F, pulse 101, respirations 20, blood pressure 151/114, pulse ox 100% on room air.) Eye exam: Present: PERRL, EOMI, periorbital swelling (Left), periorbital tenderness (Left), other (There is hordeolum noted to the right lower lid. There is edema and overlying erythema to the left upper and lower eyelid. There is purulent drainage from the left eye. EOMI. ). Absent: normal appearance, scleral icterus ENT exam: Present: normal exam, normal oropharynx, mucous membranes moist Respiratory exam: Present: normal lung sounds bilaterally. Absent: respiratory distress, wheezes, rales, rhonchi, stridor Cardiovascular Exam: Present: regular rate, normal rhythm, normal heart sounds. Absent: systolic murmur, diastolic murmur, rubs, gallop, clicks GI/Abdominal exam: Present: soft, normal bowel sounds. Absent: distended, tend erness, guarding, rebound, rigid Neurological exam: Present: alert, oriented X3, CN II-XII intact Psychiatric exam: Present: normal affect, normal mood Skin exam: Present: warm, dry, intact, normal color. Absent: rash <Autumn Blanc - Last Filed: 02/19/20 00:33> Course Vital Signs 02/18/20 02/18/20 18:48 21:17 Temperature 97.8 F Pulse Rate 101 H 77 Respiratory 20 18 Rate Blood Pressure 151/114 124/85 O2 Sat by Pulse 100 100 Oximetry Medical Decision Making - Lab Data Result diagrams: 02/18/20 19:52 02/18/20 19:52 - Radiology Data Radiology results: report reviewed, image reviewed <Autumn Blanc - Last Filed: 02/19/20 00:33> - Lab Data Result diagrams: 02/18/20 19:52 02/18/20 19:52 <Alyssa Person - Last Filed: 02/20/20 07:42> - Medical Decision Making 35-year-old female patient presents to the emergency department today for evaluation of soft tissue swelling and overlying erythema to the left periorbital region. Patient did have discomfort with movement of the eye and reported significant pain. She is afebrile. Labs reviewed and did reveal white blood cell count at 10.8. CT of the orbits were obtained and showed mild preseptal soft tissue swelling consistent with cellulitis. Patient will be started on Keflex. She is urged to continue her eyedrops. We did discuss good eye hygiene as well as continued application of warm compresses for treatment of the hordeolum. She is instructed to follow-up with her primary care physician for recheck in 1-2 days. Return parameters were discussed in detail. She verbalizes understanding and agrees with this plan. (Autumn Blanc) I was available for consultation in the emergency department. The history and physical exam were done by the midlevel provider. I was consulted for this patients care. I reviewed the case with the midlevel provider and based on their presentation of the patient, I agree with the assessment, medical decision making and plan of care as documented. Chart was dictated using [employer] dictation software. Attempts were made to correct any dictation errors however some typographical errors may persist. Patient seen and evaluated during state of emergency due to Covid-19. (Alyssa Person) - Lab Data Lab Results 02/18/20 02/18/20 02/18/20 Range/Units 19:52 19:52 19:52 WBC 10.8 H (3.8-10.6) k/uL RBC 4.18 (3.80-5.40) m/uL Hgb 11.1 L (11.4-16.0) gm/dL Hct 35.0 (34.0-46.0) % MCV 83.9 (80.0-100.0) fL MCH 26.6 (25.0-35.0) pg MCHC 31.7 (31.0-37.0) g/dL RDW 18.1 H (11.5-15.5) % Plt Count 567 H (150-450) k/uL MPV 6.8 Neutrophils % 47 % Lymphocytes % 41 % Monocytes % 6 % Eosinophils % 3 % Basophils % 0 % Neutrophils # 5.1 (1.3-7.7) k/uL Lymphocytes # 4.4 (1.0-4.8) k/uL Monocytes # 0.7 (0-1.0) k/uL Eosinophils # 0.3 (0-0.7) k/uL Basophils # 0.1 (0-0.2) k/uL Hypochromasia Slight Anisocytosis Slight Sodium 138 (137-145) mmol/L Potassium 4.2 (3.5-5.1) mmol/L Chloride 109 H (98-107) mmol/L Carbon Dioxide 22 (22-30) mmol/L Anion Gap 7 mmol/L BUN 9 (7-17) mg/dL Creatinine 0.76 (0.52-1.04) mg/dL Est GFR (CKD-EPI)AfAm >90 (>60 ml/min/1.73 sqM) Est GFR (CKD-EPI)NonAf >90 (>60 ml/min/1.73 sqM) Glucose 98 (74-99) mg/dL Calcium 9.2 (8.4-10.2) mg/dL Total Bilirubin 0.2 (0.2-1.3) mg/dL AST 17 (14-36) U/L ALT 18 (4-34) U/L Alkaline Phosphatase 94 (38-126) U/L Total Protein 7.0 (6.3-8.2) g/dL Albumin 3.8 (3.5-5.0) g/dL Urine HCG, Qual Not Detected (Not Detectd) - Radiology Data CT orbits with contrast was obtained. Report is reviewed in its entirety. Impr ession by Dr. Noble shows left-sided periorbital soft tissue swelling consistent with cellulitis. No abscess. (Autumn Blanc) Disposition Is patient prescribed a controlled substance at d/c from ED?: No Time of Disposition: 21:37 <Autumn Blanc - Last Filed: 02/19/20 00:33> <Alyssa Person - Last Filed: 02/20/20 07:42> Clinical Impression: Preseptal cellulitis of left eye, Hordeolum externum left upper eyelid Disposition: HOME SELF-CARE Condition: Good Instructions (If sedation given, give patient instructions): Stye (ED), Periorbital Cellulitis in Adults (ED) Additional Instructions: Continue medications as prescribed by your primary care provider to treat the stye. Apply warm compresses to affected area several times per day. Use gentle baby shampoo to cleanse eyelashes morning and night. Begin taking antibiotic, Keflex, for treatment of cellulitis. Complete full course of antibiotic. Follow-up with your primary care provider for recheck in the next 1-2 days. Return to the emergency Department with any vision changes, fever, painful movement of the eye, or any other concerning symptoms. Prescriptions: Cephalexin [Keflex] 500 mg PO Q6H #40 cap Cephalexin [Keflex] 500 mg PO Q6HR #40 cap Referrals: Joan Meeks MD [Primary Care Provider] - 1-2 days
== END 2020-02-18 21:55 | disposition home or self-care (01) ==
LOC: EC 18:40
DX: H00.012 Hordeolum externum right lower eyelid (principal); H00.036 Abscess of eyelid left eye, unspecified eyelid; F41.9 Anxiety disorder, unspecified; F31.9 Bipolar disorder, unspecified; G40.909 Epilepsy, unspecified, not intractable, without status epilepticus; F43.10 Post-traumatic stress disorder, unspecified; E07.9 Disorder of thyroid, unspecified; K21.9 Gastro-esophageal reflux disease without esophagitis; M79.7 Fibromyalgia; J45.909 Unspecified asthma, uncomplicated; Z79.51 Long term (current) use of inhaled steroids; F17.200 Nicotine dependence, unspecified, uncomplicated; Z79.899 Other long term (current) drug therapy; Z86.69 Personal history of other diseases of the nervous system and sense organs; Z90.89 Acquired absence of other organs; Z90.49 Acquired absence of other specified parts of digestive tract; Z88.1 Allergy status to other antibiotic agents; Z88.2 Allergy status to sulfonamides; Z88.5 Allergy status to narcotic agent; Z88.6 Allergy status to analgesic agent; Z88.8 Allergy status to other drugs, medicaments and biological substances
CPT/HCPCS: 36415; 80053; 85025; 81025; 87040; 70481; 99284; 96374; 96375; 96361; J2405; J1170; Q9967

== ENCOUNTER 2020-02-22 19:02 | Emergency (ER) | payer OTHER ==
[2020-02-22 19:07] VITALS: TEMP 98.7
[2020-02-22] MEDS ORDERED: ONDANSETRON 4 MG/2 ML VIAL IVP STA ×2 (19:14→21:24)
[2020-02-22] MEDS ORDERED: SODIUM CHLORIDE 0.9% 1,000 ML IV STA (19:14)
[2020-02-22] MEDS ORDERED: HYDROmorphone 1 MG/ML 1 ML SYRINGE IVP STA (19:15)
--- NOTE | 2020-02-22 19:47 | ED ---
Abdominal Pain HPI - General Chief Complaint: Abdominal Pain Stated Complaint: Abd Pain/Rectal Bleed Time Seen by Provider: 02/22/20 19:08 Source: patient, EMS Mode of arrival: EMS Limitations: no limitations - History of Present Illness Initial Comments: 35-year-old female patient presents to the emergency department today for evaluation of lower abdominal pain and rectal bleeding. Patient states her last 4 days she has had small amounts of blood in her stool. Patient states today that she had much larger amount of blood with passage of large dark clots. Patient states the pain in her lower abdomen is worsen significantly. States that she has had GI bleed in the past and has had colonoscopy with findings of inflammatory bowel disease, more specifically Crohn's. Currently taking cholacol for digestion, but nothing specifically for Crohns. States that she has been on antibiotics for a periorbital infection. Denies any unusual diarrhea. Denies fever or chills. She has had cholecystectomy and appendectomy in the past. Denies any current use of anticoagulant or antiplatelet medications. Patient denies any recent rash, cough, shortness of breath, chest pain, nausea, vomiting, back pain, numbness, tingling, dizziness, weakness, hematuria, dysuria, urinary urgency, urinary frequency, headache, visual changes, or any other complaints. - Related Data Home Medications Medication Instructions Recorded Confirmed QUEtiapine [SEROquel] 500 mg PO HS 04/22/17 11/16/19 Beclomethasone Dipropionate [Qvar 2 puff INHALATION RT-DAILY 02/07/18 11/16/19 80 mcg] Levothyroxine Sodium [Synthroid] 137 mcg PO DAILY 08/07/18 11/16/19 Loratadine [Claritin] 10 mg PO DAILY PRN 08/07/18 11/16/19 Montelukast [Singulair] 10 mg PO DAILY 08/07/18 11/16/19 Balsalazide Disodium 2,250 mg PO TID 11/16/19 11/16/19 Butalbital/Aspirin/Caffeine 1 cap PO BID 11/16/19 11/16/19 [Gyykuwezzo-FHY-Lyjkrdiw Cap 50-325-40] Gabapentin [Neurontin] 400 mg PO TID 11/16/19 11/16/19 LORazepam [Ativan] 1 mg PO BID PRN 11/16/19 11/16/19 Lansoprazole [Prevacid] 15 mg PO QAM 11/16/19 11/16/19 Lisinopril-Hctz 20-25 mg 2 tab PO DAILY 11/16/19 11/16/19 [Zestoretic 20-25] PARoxetine [Paxil] 20 mg PO DAILY 11/16/19 11/16/19 oxyCODONE-APAP 10-325MG [Percocet 1 tab PO TID 11/16/19 11/16/19 10-325 mg] Divalproex Sodium [Divalproex 2,000 mg PO BID 11/19/19 11/19/19 Sodium ER] Previous Rx's Medication Instructions Recorded Albuterol Inhaler [Ventolin Hfa 2 puff INHALATION RT-QID #1 inhaler 11/19/19 Inhaler] Dexamethasone 6 mg PO DAILY #7 tablet 11/19/19 Levofloxacin [Levaquin] 750 mg PO DAILY 4 Days #4 tab 11/19/19 Rivaroxaban [Xarelto] 2.5 mg PO BID #60 tab 11/19/19 Cephalexin [Keflex] 500 mg PO Q6H #40 cap 02/18/20 Cephalexin [Keflex] 500 mg PO Q6HR #40 cap 02/18/20 Allergies Allergy/AdvReac Type Severity Reaction Status Date / Time dicyclomine [From Bentyl] Allergy Severe Hallucinati Verified 02/22/20 19:07 ons granisetron HCl [From Kytril] Allergy Severe Anaphylaxis Verified 02/22/20 19:07 baclofen Allergy Rash/Hives Verified 02/22/20 19:07 butorphanol tartrate Allergy Rash/Hives Verified 02/22/20 19:07 [From Stadol] ketorolac tromethamine Allergy Rash/Hives Verified 02/22/20 19:07 [From Toradol] meperidine HCl [From Demerol] Allergy Swelling Verified 02/22/20 19:07 pregabalin [From Lyrica] Allergy Unknown Verified 02/22/20 19:07 risperidone [From Risperdal] Allergy Dyspnea Verified 02/22/20 19:07 sulfamethoxazole Allergy Rash/Hives Verified 02/22/20 19:07 [From Bactrim] trimethoprim [From Bactrim] Allergy Rash/Hives Verified 02/22/20 19:07 codeine AdvReac Vomiting & Verified 02/22/20 19:07 Headache methylprednisolone AdvReac Vomiting & Verified 02/22/20 19:07 [From Medrol] Headache Review of Systems ROS Statement: Those systems with pertinent positive or pertinent negative responses have been documented in the HPI. ROS Other: All systems not noted in ROS Statement are negative. Past Medical History Past Medical History: Asthma, Fibromyalgia, GERD/Reflux, Neurologic Disorder, Seizure Disorder, Thyroid Disorder Additional Past Medical History / Comment(s): crohns disease, diverticulosis, ibs, carpal tunnel, anemia, chronic back pain , migraines, pinched nerves, chronic colitis. History of Any Multi-Drug Resistant Organisms: None Reported Past Surgical History: Adenoidectomy, Appendectomy, Cholecystectomy, Orthopedic Surgery, Tonsillectomy Additional Past Surgical History / Comment(s): EGD/colonoscopy, right ankle surgery Past Anesthesia/Blood Transfusion Reactions: No Reported Reaction Additional Past Anesthesia/Blood Transfusion Reaction / Comment(s): hallucinations Past Psychological History: Anxiety, Bipolar, Depression, PTSD Smoking Status: Current every day smoker Past Alcohol Use History: None Reported Past Drug Use History: None Reported - Past Family History Father Family Medical History: Diabetes Mellitus, Hyperlipidemia Mother Family Medical History: Cancer, CVA/TIA, Deep Vein Thrombosis (DVT), Osteoarthritis (OA), Thyroid Disorder Additional Family Medical History / Comment(s): Extensive tattoos throughout body General Exam Limitations: no limitations General appearance: alert, in no apparent distress, other (This is a well- developed, well-nourished adult female patient in mild distress related to pain. Vital signs upon presentation are temperature 98.7F, pulse 95, respirations 18, blood pressure 119/92, pulse ox 98% on room air.) Eye exam: Present: normal appearance, PERRL, EOMI. Absent: scleral icterus, conjunctival injection, periorbital swelling ENT exam: Present: normal exam, normal oropharynx, mucous membranes moist Respiratory exam: Present: normal lung sounds bilaterally. Absent: respiratory distress, wheezes, rales, rhonchi, stridor Cardiovascular Exam: Present: regular rate, normal rhythm, normal heart sounds. Absent: systolic murmur, diastolic murmur, rubs, gallop, clicks GI/Abdominal exam: Present: soft, tenderness (Generalized worse over the lower abdomen), normal bowel sounds. Absent: distended, guarding, rebound, rigid Neurological exam: Present: alert, oriented X3, CN II-XII intact Psychiatric exam: Present: normal affect, normal mood Skin exam: Present: warm, dry, intact, normal color. Absent: rash Course Vital Signs 02/22/20 02/22/20 19:04 21:24 Temperature 98.7 F Pulse Rate 95 80 Respiratory 18 17 Rate Blood Pressure 119/92 123/84 O2 Sat by Pulse 98 99 Oximetry Medical Decision Making - Medical Decision Making 35-year-old female patient presents to the emergency department today for evaluation of lower abdominal pain and rectal bleeding. Physical examination di d reveal generalized abdominal tenderness. Did perform rectal exam, no evidence for bleeding, no abnormalities though patient did report increased abdominal pain with the rectal exam. Labs reviewed and revealed white blood cell count at 10.6. Hemoglobin 10.8 which is not much different from hemoglobin 4 days ago of 11.1. She also had a negative and negative urine. She reports histor y of Crohn's disease we did perform CT abdomen and pelvis which was unremarkable. Did discuss findings and results with the patient. She did admit to being out of her Percocet until Wednesday. To be discharged with a starter pack of Tylenol with codeine and Zofran. She is instructed to follow-up with her primary care physician and her GI specialist Dr. Pan for reevaluation as soon as possible. Return parameters were discussed in detail. She verbalizes understanding and agrees with this plan. - Lab Data Result diagrams: 02/22/20 19:24 02/22/20 19:24 Lab Results 02/22/20 02/22/20 02/22/20 Range/Units 19:24 19:24 19:24 WBC 10.6 (3.8-10.6) k/uL RBC 3.98 (3.80-5.40) m/uL Hgb 10.8 L (11.4-16.0) gm/dL Hct 33.2 L (34.0-46.0) % MCV 83.4 (80.0-100.0) fL MCH 27.2 (25.0-35.0) pg MCHC 32.6 (31.0-37.0) g/dL RDW 17.5 H (11.5-15.5) % Plt Count 529 H (150-450) k/uL MPV 6.7 Neutrophils % 34 % Lymphocytes % 54 % Monocytes % 6 % Eosinophils % 2 % Basophils % 1 % Neutrophils # 3.6 (1.3-7.7) k/uL Lymphocytes # 5.7 H (1.0-4.8) k/uL Monocytes # 0.6 (0-1.0) k/uL Eosinophils # 0.2 (0-0.7) k/uL Basophils # 0.1 (0-0.2) k/uL Manual Slide Review Performed Hypochromasia Slight Anisocytosis Slight PT 9.7 (9.0-12.0) sec INR 0.9 (<1.2) APTT 25.7 (22.0-30.0) sec Sodium (137-145) mmol/L Potassium (3.5-5.1) mmol/L Chloride (98-107) mmol/L Carbon Dioxide (22-30) mmol/L Anion Gap mmol/L BUN (7-17) mg/dL Creatinine (0.52-1.04) mg/dL Est GFR (CKD-EPI)AfAm (>60 ml/min/1.73 sqM) Est GFR (CKD-EPI)NonAf (>60 ml/min/1.73 sqM) Glucose (74-99) mg/dL Calcium (8.4-10.2) mg/dL Total Bilirubin (0.2-1.3) mg/dL AST (14-36) U/L ALT (4-34) U/L Alkaline Phosphatase (38-126) U/L Total Protein (6.3-8.2) g/dL Albumin (3.5-5.0) g/dL Amylase (30-110) U/L Lipase (23-300) U/L Urine Color Colorless Urine Appearance Clear (Clear) Urine pH 6.0 (5.0-8.0) Ur Specific [place] 1.004 (1.001-1.035) Urine Protein Negative (Negative) Urine Glucose (UA) Negative (Negative) Urine Ketones Negative (Negative) Urine Blood Negative (Negative) Urine Nitrite Negative (Negative) Urine Bilirubin Negative (Negative) Urine Urobilinogen <2.0 (<2.0) mg/dL Ur Leukocyte Esterase Negative (Negative) Urine HCG, Qual (Not Detectd) Stool Occult Blood (Negative) Blood Type Blood Type Recheck Bld Type Recheck Status Antibody Screen Spec Expiration Date 02/22/20 02/22/20 02/22/20 Range/Units 19:24 19:24 19:24 WBC (3.8-10.6) k/uL RBC (3.80-5.40) m/uL Hgb (11.4-16.0) gm/dL Hct (34.0-46.0) % MCV (80.0-100.0) fL MCH (25.0-35.0) pg MCHC (31.0-37.0) g/dL RDW (11.5-15.5) % Plt Count (150-450) k/uL MPV Neutrophils % % Lymphocytes % % Monocytes % % Eosinophils % % Basophils % % Neutrophils # (1.3-7.7) k/uL Lymphocytes # (1.0-4.8) k/uL Monocytes # (0-1.0) k/uL Eosinophils # (0-0.7) k/uL Basophils # (0-0.2) k/uL Manual Slide Review Hypochromasia Anisocytosis PT (9.0-12.0) sec INR (<1.2) APTT (22.0-30.0) sec Sodium 136 L (137-145) mmol/L Potassium 4.5 (3.5-5.1) mmol/L Chloride 109 H (98-107) mmol/L Carbon Dioxide 20 L (22-30) mmol/L Anion Gap 7 mmol/L BUN 8 (7-17) mg/dL Creatinine 0.99 (0.52-1.04) mg/dL Est GFR (CKD-EPI)AfAm 86 (>60 ml/min/1.73 sqM) Est GFR (CKD-EPI)NonAf 75 (>60 ml/min/1.73 sqM) Glucose 81 (74-99) mg/dL Calcium 8.8 (8.4-10.2) mg/dL Total Bilirubin 0.3 (0.2-1.3) mg/dL AST 17 (14-36) U/L ALT 10 (4-34) U/L Alkaline Phosphatase 73 (38-126) U/L Total Protein 6.7 (6.3-8.2) g/dL Albumin 3.6 (3.5-5.0) g/dL Amylase 125 H (30-110) U/L Lipase 129 (23-300) U/L Urine Color Urine Appearance (Clear) Urine pH (5.0-8.0) Ur Specific [place] (1.001-1.035) Urine Protein (Negative) Urine Glucose (UA) (Negative) Urine Ketones (Negative) Urine Blood (Negative) Urine Nitrite (Negative) Urine Bilirubin (Negative) Urine Urobilinogen (<2.0) mg/dL Ur Leukocyte Esterase (Negative) Urine HCG, Qual Not Detected (Not Detectd) Stool Occult Blood Negative (Negative) Blood Type Blood Type Recheck Bld Type Recheck Status Antibody Screen Spec Expiration Date 02/22/20 Range/Units 19:24 WBC (3.8-10.6) k/uL RBC (3.80-5.40) m/uL Hgb (11.4-16.0) gm/dL Hct (34.0-46.0) % MCV (80.0-100.0) fL MCH (25.0-35.0) pg MCHC (31.0-37.0) g/dL RDW (11.5-15.5) % Plt Count (150-450) k/uL MPV Neutrophils % % Lymphocytes % % Monocytes % % Eosinophils % % Basophils % % Neutrophils # (1.3-7.7) k/uL Lymphocytes # (1.0-4.8) k/uL Monocytes # (0-1.0) k/uL Eosinophils # (0-0.7) k/uL Basophils # (0-0.2) k/uL Manual Slide Review Hypochromasia Anisocytosis PT (9.0-12.0) sec INR (<1.2) APTT (22.0-30.0) sec Sodium (137-145) mmol/L Potassium (3.5-5.1) mmol/L Chloride (98-107) mmol/L Carbon Dioxide (22-30) mmol/L Anion Gap mmol/L BUN (7-17) mg/dL Creatinine (0.52-1.04) mg/dL Est GFR (CKD-EPI)AfAm (>60 ml/min/1.73 sqM) Est GFR (CKD-EPI)NonAf (>60 ml/min/1.73 sqM) Glucose (74-99) mg/dL Calcium (8.4-10.2) mg/dL Total Bilirubin (0.2-1.3) mg/dL AST (14-36) U/L ALT (4-34) U/L Alkaline Phosphatase (38-126) U/L Total Protein (6.3-8.2) g/dL Albumin (3.5-5.0) g/dL Amylase (30-110) U/L Lipase (23-300) U/L Urine Color Urine Appearance (Clear) Urine pH (5.0-8.0) Ur Specific [place] (1.001-1.035) Urine Protein (Negative) Urine Glucose (UA) (Negative) Urine Ketones (Negative) Urine Blood (Negative) Urine Nitrite (Negative) Urine Bilirubin (Negative) Urine Urobilinogen (<2.0) mg/dL Ur Leukocyte Esterase (Negative) Urine HCG, Qual (Not Detectd) Stool Occult Blood (Negative) Blood Type O Negative Blood Type Recheck O Neg Bld Type Recheck Status No Antibody Screen NEGATIVE Spec Expiration Date 02/25/20202323 - EKG Data -: EKG Interpreted by Nd EKG Comments: EKG obtained in 1927 shows normal sinus rhythm with a ventricular rate of 88, WA interval 142, QRS duration 86, QT 386, QTc 467. No evidence of ST elevation or depression. - Radiology Data Radiology results: report reviewed, image reviewed CT abdomen and pelvis with contrast obtained. Report was reviewed in its entirety. Impression by Dr. Noble shows decreased contrast on the delayed images could relate to some renal failure. Clinical correlation needed. There is clearing of the pleural fluid and free fluid in the pelvis compared to old exam. There is improvement in the constipation compared to old exam. Disposition Clinical Impression: Abdominal pain, GI bleed Disposition: HOME SELF-CARE Condition: Good Instructions (If sedation given, give patient instructions): Rectal Bleeding (ED), Abdominal Pain (ED) Additional Instructions: Follow-up with your senior hardware design engineer for further evaluation as soon as possible. Return to the emergency department for any new, worsening, or concerning symptoms. Is patient prescribed a controlled substance at d/c from ED?: No Referrals: Joan Meeks MD [Primary Care Provider] - 1-2 days Time of Disposition: 21:25
[2020-02-22 20:08] LABS: Anisocytosis Slight; Basophils # (A) 0.1 k/uL (0-0.2); Basophils % (A) 1 %; Eosinophils # (A) 0.2 k/uL (0-0.7); Eosinophils % (A) 2 %; HCT 33.2 % (34.0-46.0); HGB 10.8 gm/dL (11.4-16.0); Hypochromasia Slight; Lymphocytes # (A) 5.7 k/uL (1.0-4.8); Lymphocytes % (A) 54 %; MCH 27.2 pg (25.0-35.0); MCHC 32.6 g/dL (31.0-37.0); MCV 83.4 fL (80.0-100.0); Mean Platelet Volume 6.7; Monocytes # (A) 0.6 k/uL (0-1.0); Monocytes % (A) 6 %; Neutrophils # (A) 3.6 k/uL (1.3-7.7); Neutrophils % (A) 34 %; Platelet Count 529 k/uL (150-450); RBC 3.98 m/uL (3.80-5.40); RDW 17.5 % (11.5-15.5); WBC 10.6 k/uL (3.8-10.6)
[2020-02-22] MEDS ORDERED: MORPHINE SULFATE 4 MG/ML SYRINGE IVP STA ×2 (20:16→21:24)
[2020-02-22 20:18] LABS: Albumin 3.6 g/dL (3.5-5.0); Calcium 8.8 mg/dL (8.4-10.2); INR 0.9 (<1.2); Partial Thromboplastin Time 25.7 sec (22.0-30.0); Potassium 4.5 mmol/L (3.5-5.1); Prothrombin Time 9.7 sec (9.0-12.0); Total Bilirubin 0.3 mg/dL (0.2-1.3); Total Protein 6.7 g/dL (6.3-8.2)
[2020-02-22 20:35] LABS: Appearance,Urine Clear (Clear); Bilirubin,Urine Negative (Negative); Blood,Urine Negative (Negative); Color,Urine Colorless; Glucose,Urine (UA) Negative (Negative); Ketones,Urine Negative (Negative); Leukocyte Esterase,Urine Negative (Negative); Nitrite,Urine Negative (Negative); Protein,Urine Negative (Negative); Specific Gravity,Urine 1.004 (1.001-1.035); Urobilinogen,Urine <2.0 mg/dL (<2.0)
--- NOTE | 2020-02-22 20:57 | CT ---
EXAMINATION TYPE: CT abdomen pelvis w con DATE OF EXAM: 02/22/2020 COMPARISON: 11/18/2019 HISTORY: Generalized abdominal pain and rectal bleeding. History of Crohn's. CT DLP: 1195.1 mGycm Automated exposure control for dose reduction was used. CONTRAST: Performed with IV Contrast, patient injected with 100ml mL of Isovue 300. Lung bases are clear. There is no pleural effusion. Heart size is normal. There is no pericardial eff usion. there clips from cholecystectomy. Liver spleen stomach pancreas appear normal. Bile ducts are not dilated. There is 2 cm left adrenal mass. Kidneys show satisfactory contrast opacification. There is no hydron ephrosis. Delayed images show decreased contrast in the collecting system. There is no retroperitonea l adenopathy. Bladder distends smoothly. There is no inguinal hernia. There is anteverted uterus. The re is no free fluid in the pelvis. There is no evidence of a pelvic mass. Lumbar vertebra have normal spacing and alignment. Posterior elements are intact. The bony pelvis is intact. Hip joints are inta ct. There is no mesenteric edema. There is no ascites or free air. There is no sign of a bowel obstructio n. Appendix is not seen. There is no sign of thickened appendix. IMPRESSION: Decreased contrast on the delayed images could relate to some renal failure. Clinical correlation nee ded. There is clearing of the pleural fluid and free fluid in the pelvis compared to old exam. There is im provement in the constipation compared to old exam.
[2020-02-22] MEDS ORDERED: ACET/COD 300 MG/30 MG STARTER PACK 6 TAB BTL PO STA (21:24)
[2020-02-22] MEDS ORDERED: ONDANSETRON 4 MG ODT STARTER PACK 2 TAB BTL PO STA (21:24)
[2020-02-22 21:25] VITALS: BP 123/84; PULSE 80; RESP 17
== END 2020-02-22 22:34 | disposition home or self-care (01) ==
LOC: EC 19:02
DX: R10.817 Generalized abdominal tenderness (principal); K92.2 Gastrointestinal hemorrhage, unspecified; F41.9 Anxiety disorder, unspecified; F31.9 Bipolar disorder, unspecified; F43.10 Post-traumatic stress disorder, unspecified; J45.909 Unspecified asthma, uncomplicated; K21.9 Gastro-esophageal reflux disease without esophagitis; M79.7 Fibromyalgia; G40.909 Epilepsy, unspecified, not intractable, without status epilepticus; E07.9 Disorder of thyroid, unspecified; F17.200 Nicotine dependence, unspecified, uncomplicated; Z79.51 Long term (current) use of inhaled steroids; Z79.890 Hormone replacement therapy; Z79.899 Other long term (current) drug therapy; Z88.1 Allergy status to other antibiotic agents; Z88.2 Allergy status to sulfonamides; Z88.5 Allergy status to narcotic agent; Z88.6 Allergy status to analgesic agent; Z88.8 Allergy status to other drugs, medicaments and biological substances
CPT/HCPCS: 36415; 93005; 86900; 86901; 80053; 82150; 83690; 85025; 85610; 85730; 86850; 82272; 81003; 81025; 74177; 99285; 96374; 96375 ×2; 96376 ×2; 96361; J2270; J2405; J1170; S0119; Q9967

== ENCOUNTER 2020-03-05 21:50 | Observation (INO) | payer OTHER ==
[2020-03-05] MEDS ORDERED: SODIUM CHLORIDE 0.9% 1,000 ML IV STA (21:54)
[2020-03-05 22:01] LABS: Glucose,Whole Blood 229 mg/dL (75-99)
--- NOTE | 2020-03-05 22:02 | ED ---
General Adult HPI - General Stated complaint: Seizure Time Seen by Provider: 03/05/20 21:56 Source: EMS, RN notes reviewed, old records reviewed Mode of arrival: EMS Limitations: altered mental status - History of Present Illness Initial comments: 35-year-old female with known seizure disorder presenting with multiple tonic- clonic seizures according to EMS. Patient had initially been postictal according to EMS, she was transported after having approximately 5 seizures at home and during transport again had a 6 seizure. She was given 2.5 mg of IV Versed had. She presents to emergency department postictal period she is breathing spontaneously, protecting her airway, she is moving all extremities. No history is available from the patient. - Related Data Home Medications Medication Instructions Recorded Confirmed QUEtiapine [SEROquel] 500 mg PO HS 04/22/17 11/16/19 Beclomethasone Dipropionate [Qvar 2 puff INHALATION RT-DAILY 02/07/18 11/16/19 80 mcg] Levothyroxine Sodium [Synthroid] 137 mcg PO DAILY 08/07/18 11/16/19 Loratadine [Claritin] 10 mg PO DAILY PRN 08/07/18 11/16/19 Montelukast [Singulair] 10 mg PO DAILY 08/07/18 11/16/19 Balsalazide Disodium 2,250 mg PO TID 11/16/19 11/16/19 Butalbital/Aspirin/Caffeine 1 cap PO BID 11/16/19 11/16/19 [Xgvjgryzac-ELT-Jtzvwlov Cap 50-325-40] Gabapentin [Neurontin] 400 mg PO TID 11/16/19 11/16/19 LORazepam [Ativan] 1 mg PO BID PRN 11/16/19 11/16/19 Lansoprazole [Prevacid] 15 mg PO QAM 11/16/19 11/16/19 Lisinopril-Hctz 20-25 mg 2 tab PO DAILY 11/16/19 11/16/19 [Zestoretic 20-25] PARoxetine [Paxil] 20 mg PO DAILY 11/16/19 11/16/19 oxyCODONE-APAP 10-325MG [Percocet 1 tab PO TID 11/16/19 11/16/19 10-325 mg] Divalproex Sodium [Divalproex 2,000 mg PO BID 11/19/19 11/19/19 Sodium ER] Previous Rx's Medication Instructions Recorded Albuterol Inhaler [Ventolin Hfa 2 puff INHALATION RT-QID #1 inhaler 11/19/19 Inhaler] Dexamethasone 6 mg PO DAILY #7 tablet 11/19/19 Levofloxacin [Levaquin] 750 mg PO DAILY 4 Days #4 tab 11/19/19 Rivaroxaban [Xarelto] 2.5 mg PO BID #60 tab 11/19/19 Cephalexin [Keflex] 500 mg PO Q6H #40 cap 02/18/20 Cephalexin [Keflex] 500 mg PO Q6HR #40 cap 02/18/20 Allergies Allergy/AdvReac Type Severity Reaction Status Date / Time dicyclomine [From Bentyl] Allergy Severe Hallucinati Verified 03/05/20 22:02 ons granisetron HCl [From Kytril] Allergy Severe Anaphylaxis Verified 03/05/20 22:02 baclofen Allergy Rash/Hives Verified 03/05/20 22:02 butorphanol tartrate Allergy Rash/Hives Verified 03/05/20 22:02 [From Stadol] ketorolac tromethamine Allergy Rash/Hives Verified 03/05/20 22:02 [From Toradol] meperidine HCl [From Demerol] Allergy Swelling Verified 03/05/20 22:02 pregabalin [From Lyrica] Allergy Unknown Verified 03/05/20 22:02 risperidone [From Risperdal] Allergy Dyspnea Verified 03/05/20 22:02 sulfamethoxazole Allergy Rash/Hives Verified 03/05/20 22:02 [From Bactrim] trimethoprim [From Bactrim] Allergy Rash/Hives Verified 03/05/20 22:02 codeine AdvReac Vomiting & Verified 03/05/20 22:02 Headache methylprednisolone AdvReac Vomiting & Verified 03/05/20 22:02 [From Medrol] Headache Review of Systems ROS Statement: Those systems with pertinent positive or pertinent negative responses have been documented in the HPI. ROS Other: All systems not noted in ROS Statement are negative. Past Medical History Past Medical History: Asthma, Fibromyalgia, GERD/Reflux, Neurologic Disorder, Seizure Disorder, Thyroid Disorder Additional Past Medical History / Comment(s): crohns disease, diverticulosis, ibs, carpal tunnel, anemia, chronic back pain , migraines, pinched nerves, chronic colitis. History of Any Multi-Drug Resistant Organisms: None Reported Past Surgical History: Adenoidectomy, Appendectomy, Cholecystectomy, Orthopedic Surgery, Tonsillectomy Additional Past Surgical History / Comment(s): EGD/colonoscopy, right ankle surgery Past Anesthesia/Blood Transfusion Reactions: No Reported Reaction Additional Past Anesthesia/Blood Transfusion Reaction / Comment(s): hallucinations Past Psychological History: Anxiety, Bipolar, Depression, PTSD Smoking Status: Current every day smoker Past Alcohol Use History: None Reported Past Drug Use History: None Reported - Past Family History Father Family Medical History: Diabetes Mellitus, Hyperlipidemia Mother Family Medical History: Cancer, CVA/TIA, Deep Vein Thrombosis (DVT), Osteoarthritis (OA), Thyroid Disorder Additional Family Medical History / Comment(s): Extensive tattoos throughout body General Exam Limitations: no limitations General appearance: lethargic, other (Postictal) Head exam: Present: atraumatic, normocephalic Eye exam: Present: normal appearance, PERRL ENT exam: Present: mucous membranes dry Respiratory exam: Present: normal lung sounds bilaterally. Absent: respiratory distress, wheezes Cardiovascular Exam: Present: normal rhythm, tachycardia GI/Abdominal exam: Present: soft. Absent: distended, tenderness, guarding, rebound Extremities exam: Present: normal inspection, normal capillary refill Neurological exam: Present: other (Patient is localizing to pain. She has gag reflex. She will respond to voice. No focal findings.). Absent: motor sensory deficit Skin exam: Present: warm, intact, diaphoretic. Absent: cyanosis Course Vital Signs 03/05/20 03/05/20 03/05/20 21:53 22:17 22:47 Temperature 98.3 F Pulse Rate 130 H 112 H 113 H Respiratory 22 18 18 Rate Blood Pressure 125/53 104/63 93/58 O2 Sat by Pulse 93 L 96 96 Oximetry 03/05/20 23:00 Temperature Pulse Rate 104 H Respiratory 18 Rate Blood Pressure 110/65 O2 Sat by Pulse 96 Oximetry - Reevaluation(s) Reevaluation #1: 03/05/20 22:48 Patient will respond to 4 days but she is not alert. Prolonged postictal period Reevaluation #2: 03/05/20 23:[address] Carrillo and Dr. Siddiqui. Reevaluation #3: 03/05/20 23:46 Patient improved, still somewhat somnolent but able to answer questions, follow commands, she states that she is on Depakote and may have missed her dose today. EKG Findings - EKG Comments: EKG Findings:: EKG: Sinus tachycardia, rate of 112, NE interval 150, QRS duration 86, QTC 494 Medical Decision Making - Medical Decision Making 35-year-old female with recurrent seizure. She is postictal upon arrival. She is maintaining her airway with sinus tachycardia, normal blood pressure, otherwise stable vitals. She is moving all extremities symmetrically localizing to pain. She will respond to voice but is unable to evaluate any history. Uncertain with medication compliance. Workup was initiated, she has a leukocytosis, stable hemoglobin. She has severe acidosis with a CO2 of 6 and a lactic acid of 14 which is secondary to prolonged seizure. She is given 1 g of IV Keppra. She had been given 2.5 mg of IV Versed by EMS prior to arrival. She is maintained with seizure precautions. Head CT is performed which is negative for intracranial hemorrhage or mass effect. She does improve while in the emergency department but does not regain a normal level of consciousness. She will be admitted, case has been discussed with Dr. Carrillo, neurology has been placed on consult. Did discuss the case with Dr. Siddiqui covering for the ICU regarding patient's placement, agree with monitored bed at this time as there is no ICU beds available. - Lab Data Result diagrams: 03/05/20 21:59 03/05/20 21:59 Lab Results 03/05/20 03/05/20 03/05/20 Range/Units 21:59 21:59 21:59 WBC 15.0 H (3.8-10.6) k/uL RBC 4.04 (3.80-5.40) m/uL Hgb 10.8 L (11.4-16.0) gm/dL Hct 35.6 (34.0-46.0) % MCV 88.1 (80.0-100.0) fL MCH 26.7 (25.0-35.0) pg MCHC 30.3 L (31.0-37.0) g/dL RDW 17.4 H (11.5-15.5) % Plt Count 571 H (150-450) k/uL MPV 6.8 Neutrophils % 82 % Lymphocytes % 15 % Monocytes % 2 % Eosinophils % 0 % Basophils % 0 % Neutrophils # 12.2 H (1.3-7.7) k/uL Lymphocytes # 2.2 (1.0-4.8) k/uL Monocytes # 0.3 (0-1.0) k/uL Eosinophils # 0.0 (0-0.7) k/uL Basophils # 0.1 (0-0.2) k/uL Hypochromasia Marked Anisocytosis Slight PT (9.0-12.0) sec INR (<1.2) Sodium (137-145) mmol/L Potassium (3.5-5.1) mmol/L Chloride (98-107) mmol/L Carbon Dioxide (22-30) mmol/L Anion Gap mmol/L BUN (7-17) mg/dL Creatinine (0.52-1.04) mg/dL Est GFR (CKD-EPI)AfAm (>60 ml/min/1.73 sqM) Est GFR (CKD-EPI)NonAf (>60 ml/min/1.73 sqM) Glucose (74-99) mg/dL POC Glucose (mg/dL) (75-99) mg/dL POC Glu [employer] Flight [employer] ID Plasma Lactic Acid Jeremy (0.7-2.0) mmol/L Calcium (8.4-10.2) mg/dL Magnesium (1.6-2.3) mg/dL Total Bilirubin (0.2-1.3) mg/dL AST (14-36) U/L ALT (4-34) U/L Alkaline Phosphatase (38-126) U/L Creatine Kinase (30-135) U/L Total Protein (6.3-8.2) g/dL Albumin (3.5-5.0) g/dL Urine Color Urine Appearance (Clear) Urine pH (5.0-8.0) Ur Specific [place] (1.001-1.035) Urine Protein (Negative) Urine Glucose (UA) (Negative) Urine Ketones (Negative) Urine Blood (Negative) Urine Nitrite (Negative) Urine Bilirubin (Negative) Urine Urobilinogen (<2.0) mg/dL Ur Leukocyte Esterase (Negative) Urine HCG, Qual Not Detected (Not Detectd) Salicylates mg/dL Urine Opiates Screen Not Detected (NotDetected) Ur Oxycodone Screen Not Detected (NotDetected) Urine Methadone Screen Not Detected (NotDetected) Ur Propoxyphene Screen Not Detected (NotDetected) Acetaminophen ug/mL Ur Barbiturates Screen Not Detected (NotDetected) U Tricyclic Antidepress Detected H (NotDetected) Ur Phencyclidine Scrn Not Detected (NotDetected) Ur Amphetamines Screen Not Detected (NotDetected) U Methamphetamines Scrn Not Detected (NotDetected) U Benzodiazepines Scrn Detected H (NotDetected) Urine Cocaine Screen Not Detected (NotDetected) U Marijuana (THC) Screen Not Detected (NotDetected) Serum Alcohol mg/dL 03/05/20 03/05/20 03/05/20 Range/Units 21:59 21:59 21:59 WBC (3.8-10.6) k/uL RBC (3.80-5.40) m/uL Hgb (11.4-16.0) gm/dL Hct (34.0-46.0) % MCV (80.0-100.0) fL MCH (25.0-35.0) pg MCHC (31.0-37.0) g/dL RDW (11.5-15.5) % Plt Count (150-450) k/uL MPV Neutrophils % % Lymphocytes % % Monocytes % % Eosinophils % % Basophils % % Neutrophils # (1.3-7.7) k/uL Lymphocytes # (1.0-4.8) k/uL Monocytes # (0-1.0) k/uL Eosinophils # (0-0.7) k/uL Basophils # (0-0.2) k/uL Hypochromasia Anisocytosis PT 10.4 (9.0-12.0) sec INR 1.0 (<1.2) Sodium 135 L (137-145) mmol/L Potassium 4.5 (3.5-5.1) mmol/L Chloride 107 (98-107) mmol/L Carbon Dioxide 6 L* (22-30) mmol/L Anion Gap 22 mmol/L BUN 8 (7-17) mg/dL Creatinine 0.93 (0.52-1.04) mg/dL Est GFR (CKD-EPI)AfAm >90 (>60 ml/min/1.73 sqM) Est GFR (CKD-EPI)NonAf 81 (>60 ml/min/1.73 sqM) Glucose 235 H (74-99) mg/dL POC Glucose (mg/dL) (75-99) mg/dL POC Glu [employer] Flight [employer] ID Plasma Lactic Acid Jeremy (0.7-2.0) mmol/L Calcium 8.9 (8.4-10.2) mg/dL Magnesium 2.0 (1.6-2.3) mg/dL Total Bilirubin 0.2 (0.2-1.3) mg/dL AST 20 (14-36) U/L ALT 25 (4-34) U/L Alkaline Phosphatase 81 (38-126) U/L Creatine Kinase 75 (30-135) U/L Total Protein 7.3 (6.3-8.2) g/dL Albumin 4.0 (3.5-5.0) g/dL Urine Color Colorless Urine Appearance Clear (Clear) Urine pH 5.0 (5.0-8.0) Ur Specific [place] 1.015 (1.001-1.035) Urine Protein Trace H (Negative) Urine Glucose (UA) Negative (Negative) Urine Ketones 1+ H (Negative) Urine Blood Negative (Negative) Urine Nitrite Negative (Negative) Urine Bilirubin Negative (Negative) Urine Urobilinogen <2.0 (<2.0) mg/dL Ur Leukocyte Esterase Negative (Negative) Urine HCG, Qual (Not Detectd) Salicylates <1.0 mg/dL Urine Opiates Screen (NotDetected) Ur Oxycodone Screen (NotDetected) Urine Methadone Screen (NotDetected) Ur Propoxyphene Screen (NotDetected) Acetaminophen <10.0 ug/mL Ur Barbiturates Screen (NotDetected) U Tricyclic Antidepress (NotDetected) Ur Phencyclidine Scrn (NotDetected) Ur Amphetamines Screen (NotDetected) U Methamphetamines Scrn (NotDetected) U Benzodiazepines Scrn (NotDetected) Urine Cocaine Screen (NotDetected) U Marijuana (THC) Screen (NotDetected) Serum Alcohol <10 mg/dL 03/05/20 03/05/20 03/05/20 Range/Units 21:59 22:00 22:56 WBC (3.8-10.6) k/uL RBC (3.80-5.40) m/uL Hgb (11.4-16.0) gm/dL Hct (34.0-46.0) % MCV (80.0-100.0) fL MCH (25.0-35.0) pg MCHC (31.0-37.0) g/dL RDW (11.5-15.5) % Plt Count (150-450) k/uL MPV Neutrophils % % Lymphocytes % % Monocytes % % Eosinophils % % Basophils % % Neutrophils # (1.3-7.7) k/uL Lymphocytes # (1.0-4.8) k/uL Monocytes # (0-1.0) k/uL Eosinophils # (0-0.7) k/uL Basophils # (0-0.2) k/uL Hypochromasia Anisocytosis PT (9.0-12.0) sec INR (<1.2) Sodium (137-145) mmol/L Potassium (3.5-5.1) mmol/L Chloride (98-107) mmol/L Carbon Dioxide (22-30) mmol/L Anion Gap mmol/L BUN (7-17) mg/dL Creatinine (0.52-1.04) mg/dL Est GFR (CKD-EPI)AfAm (>60 ml/min/1.73 sqM) Est GFR (CKD-EPI)NonAf (>60 ml/min/1.73 sqM) Glucose (74-99) mg/dL POC Glucose (mg/dL) 229 H (75-99) mg/dL POC Glu [employer] Flight 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 ID Amita Calle Plasma Lactic Acid Jeremy 14.0 H* 12.2 H* (0.7-2.0) mmol/L Calcium (8.4-10.2) mg/dL Magnesium (1.6-2.3) mg/dL Total Bilirubin (0.2-1.3) mg/dL AST (14-36) U/L ALT (4-34) U/L Alkaline Phosphatase (38-126) U/L Creatine Kinase (30-135) U/L Total Protein (6.3-8.2) g/dL Albumin (3.5-5.0) g/dL Urine Color Urine Appearance (Clear) Urine pH (5.0-8.0) Ur Specific [place] (1.001-1.035) Urine Protein (Negative) Urine Glucose (UA) (Negative) Urine Ketones (Negative) Urine Blood (Negative) Urine Nitrite (Negative) Urine Bilirubin (Negative) Urine Urobilinogen (<2.0) mg/dL Ur Leukocyte Esterase (Negative) Urine HCG, Qual (Not Detectd) Salicylates mg/dL Urine Opiates Screen (NotDetected) Ur Oxycodone Screen (NotDetected) Urine Methadone Screen (NotDetected) Ur Propoxyphene Screen (NotDetected) Acetaminophen ug/mL Ur Barbiturates Screen (NotDetected) U Tricyclic Antidepress (NotDetected) Ur Phencyclidine Scrn (NotDetected) Ur Amphetamines Screen (NotDetected) U Methamphetamines Scrn (NotDetected) U Benzodiazepines Scrn (NotDetected) Urine Cocaine Screen (NotDetected) U Marijuana (THC) Screen (NotDetected) Serum Alcohol mg/dL Critical Care Time Critical Care Time: Yes Total Critical Care Time: 35 Disposition Clinical Impression: Status epilepticus, Postictal state Disposition: ADMITTED IP TO THIS [facility] Condition: Serious Is patient prescribed a controlled substance at d/c from ED?: No Referrals: Joan Meeks MD [Primary Care Provider] - 1-2 days Decision to Admit Reason: Admit from EC Decision Date: 03/05/20 Decision Time: 23:10
[2020-03-05 22:17] LABS: Anisocytosis Slight; Basophils # (A) 0.1 k/uL (0-0.2); Basophils % (A) 0 %; Eosinophils % (A) 0 %; HCT 35.6 % (34.0-46.0); HGB 10.8 gm/dL (11.4-16.0); Hypochromasia Marked; Lymphocytes # (A) 2.2 k/uL (1.0-4.8); Lymphocytes % (A) 15 %; MCH 26.7 pg (25.0-35.0); MCHC 30.3 g/dL (31.0-37.0); MCV 88.1 fL (80.0-100.0); Mean Platelet Volume 6.8; Monocytes # (A) 0.3 k/uL (0-1.0); Monocytes % (A) 2 %; Neutrophils # (A) 12.2 k/uL (1.3-7.7); Neutrophils % (A) 82 %; Platelet Count 571 k/uL (150-450); RBC 4.04 m/uL (3.80-5.40); RDW 17.4 % (11.5-15.5)
[2020-03-05 22:19] LABS: Appearance,Urine Clear (Clear); Bilirubin,Urine Negative (Negative); Blood,Urine Negative (Negative); Color,Urine Colorless; Glucose,Urine (UA) Negative (Negative); Ketones,Urine 1+ (Negative); Leukocyte Esterase,Urine Negative (Negative); Nitrite,Urine Negative (Negative); Protein,Urine Trace (Negative); Specific Gravity,Urine 1.015 (1.001-1.035); Urobilinogen,Urine <2.0 mg/dL (<2.0)
[2020-03-05 22:22] LABS: Prothrombin Time 10.4 sec (9.0-12.0)
[2020-03-05 22:27] LABS: Urn Cannabinoid Scrn Not Detected (NotDetected)
[2020-03-05 22:28] LABS: Amphetamine Screen,Urine Not Detected (NotDetected); Barbiturate Screen,Urine Not Detected (NotDetected); Benzodiazepines Screen,Urine Detected (NotDetected); Cocaine Screen,Urine Not Detected (NotDetected); Methadone Screen, Urine Not Detected (NotDetected); Opiate Screen,Urine Not Detected (NotDetected); Oxycodone Screen, Urine Not Detected (NotDetected); Phencyclidine Screen,Urine Not Detected (NotDetected); Tricyclic Antidepressant,Urine Detected (NotDetected)
[2020-03-05 22:31] LABS: AST 20 U/L (14-36); Acetaminophen <10.0 ug/mL; African American GFR (CKD) >90 (>60 ml/min/1.73 sqM); Alcohol <10 mg/dL; Alkaline Phosphatase 81 U/L (38-126); Blood Urea Nitrogen 8 mg/dL (7-17); Calcium 8.9 mg/dL (8.4-10.2); Chloride 107 mmol/L (98-107); Creatine Kinase 75 U/L (30-135); Glucose 235 mg/dL (74-99); Non-African American GFR(CKD) 81 (>60 ml/min/1.73 sqM); Potassium 4.5 mmol/L (3.5-5.1); Salicylate <1.0 mg/dL; Sodium 135 mmol/L (137-145); Total Bilirubin 0.2 mg/dL (0.2-1.3); Total Protein 7.3 g/dL (6.3-8.2)
[2020-03-05 22:35] LABS: Anion Gap 22 mmol/L
[2020-03-05 22:38] LABS: ALT 25 U/L (4-34)
[2020-03-05 22:39] LABS: Carbon Dioxide 6 mmol/L (22-30)
[2020-03-05] MEDS ORDERED: levETIRAcetam IV 1,000 MG in SALINE 1 100ML.BAG IVPB STA (22:45)
[2020-03-05] MEDS ORDERED: LORazepam 2 MG/ML INJ IV PRN (22:50)
--- NOTE | 2020-03-05 22:52 | CT ---
EXAMINATION TYPE: CT brain wo con DATE OF EXAM: 03/05/2020 COMPARISON: 04/24/2017 HISTORY: seizure CT DLP: 1099.4 mGycm Automated exposure control for dose reduction was used. Ventricles have normal size. There is no mass effect nor midline shift. There is no sign of intracran ial hemorrhage. The calvarium is intact. Skull base is intact. IMPRESSION: Negative CT scan of the brain. No change.
[2020-03-05] MEDS ORDERED: NALOXONE 0.4 MG/ML 1 ML VIAL IV PRN (22:59)
[2020-03-05] MEDS: SODIUM CHLORIDE 0.9% 1,000 ML IV SCH (23:02)
[2020-03-05] MEDS ORDERED: SODIUM CHLORIDE 0.9% 500 ML 500 ML IV ONE (23:42)
[2020-03-06] MEDS ORDERED: ACETAMINOPHEN TAB 325 MG TAB PO STA ×2 (03:23→08:12)
[2020-03-06 04:28] LABS: Anisocytosis Slight; Basophils % (A) 0 %; Eosinophils % (A) 0 %; HCT 30.6 % (34.0-46.0); HGB 10.1 gm/dL (11.4-16.0); Hypochromasia Slight; Lymphocytes # (A) 2.4 k/uL (1.0-4.8); Lymphocytes % (A) 22 %; MCH 27.8 pg (25.0-35.0); MCV 84.4 fL (80.0-100.0); Mean Platelet Volume 6.7; Monocytes # (A) 0.4 k/uL (0-1.0); Monocytes % (A) 4 %; Neutrophils # (A) 8.2 k/uL (1.3-7.7); Neutrophils % (A) 73 %; Platelet Count 474 k/uL (150-450); RBC 3.63 m/uL (3.80-5.40); RDW 17.7 % (11.5-15.5); WBC 11.3 k/uL (3.8-10.6)
[2020-03-06 04:51] LABS: ALT 19 U/L (4-34); AST 19 U/L (14-36); African American GFR (CKD) >90 (>60 ml/min/1.73 sqM); Albumin 3.5 g/dL (3.5-5.0); Alkaline Phosphatase 64 U/L (38-126); Anion Gap 8 mmol/L; Blood Urea Nitrogen 7 mg/dL (7-17); Calcium 8.2 mg/dL (8.4-10.2); Carbon Dioxide 15 mmol/L (22-30); Chloride 113 mmol/L (98-107); Glucose 106 mg/dL (74-99); Non-African American GFR(CKD) >90 (>60 ml/min/1.73 sqM); Potassium 4.8 mmol/L (3.5-5.1); Sodium 136 mmol/L (137-145); Total Bilirubin 0.3 mg/dL (0.2-1.3); Total Protein 6.5 g/dL (6.3-8.2)
[2020-03-06] MEDS: DIVALPROEX ER 500 MG TAB.ER.24H PO SCH ×2 (08:18→22:37)
[2020-03-06] MEDS: FAMOTIDINE 20 MG/2 ML VIAL IV SCH ×2 (08:20→22:38)
[2020-03-06] MEDS ORDERED: GABAPENTIN 400 MG CAP PO SCH (09:00)
--- NOTE | 2020-03-06 10:10 | P.HPIM ---
History of Present Illness This is a pleasant 35 years old female with past medical history of seizure disorder, other medical history of mild intermittent bronchial asthma, seizure disorder, GERD/reflux, anxiety, bipolar, PTSD, Crohn's disease, fibromyalgia, hypothyroidism. She is a patient of Dr. Naveen Meeks and Pedro Isidro. she has multiple ER visits and hospitalization, the last hospitalization was 11/20/23 pneumonia and asthma. Now presents because of recurrent seizures. Patient is somewhat was started this morning when I saw her, she was waking up however she was oriented to time place and person, for example she no she is in the hospital and she was here because of seizure but she could not remember what happened, the last time she remembers that she was sitting in the count in her house Last night. She admits that she has history of seizure but she does not follow up with a neurologist and that she supposed to be an Depakote she was taking it however the last 2 days she states that she missed some doses especially denied doses however she continued to take other medication like the Neurontin. She denies weakness or numbness but she has some headache as she is waking up. No slurred speech or blurred vision. She smokes about half pack per day, patient is counseled and she wants to quit and shows the nicotine patch. No alcohol or illicit drugs. She denies depression or suicidal ideation She denies any psych history and says that she takes Seroquel and amitriptyline to help her sleep Vitas looks stable, mild leukocytosis of 11.3 k, hemoglobin 10.1, platelets 470 4k. on admission her lactic acid was elevated at 14.0, currently improved with iv hydration down to 2.4. carbon dioxide was 6, improved to 15 mmol per liter. other labs showing unremarkable breasts of BMP and liver enzymes. INR is nor mal. Urine analysis is not suspicious of infection. Urine hCG is still detected. Urine drug screen is positive for tricyclic antidepressants and benzodiazepines. Serum alcohol less than 10, acetaminophen less than 10, salicylate is less than 10. EKG showing sinus tachycardia at 112, QTC is 494, CT of the brain showing no acute process or radiologist. And emergency room she received 1.5 L of normal saline and continue it at 100 mL per hour and Tylenol. And 1 dose of Keppra 1000 mg provided. Neurologist has been consulted Review of Systems CONSTITUTIONAL: No fever, no malaise, no fatigue. HEENT: No recent visual problems or hearing problems. Denied any sore throat. CARDIOVASCULAR: No orthopnea, PND, no palpitations, no syncope. PULMONARY: No shortness of breath, no cough, no hemoptysis. GASTROINTESTINAL: No diarrhea, no nausea, no vomiting, no abdominal pain. Normoactive bowel sounds. NEUROLOGICAL: No headaches, no weakness, no numbness. HEMATOLOGICAL: Denies any bleeding or petechiae. GENITOURINARY: Denies any burning micturition, frequency, or urgency. MUSCULOSKELETAL/RHEUMATOLOGICAL: Denies any joint pain, swelling, or any muscle pain. ENDOCRINE: Denies any polyuria or polydipsia. Past Medical History Past Medical History: Asthma, Fibromyalgia, GERD/Reflux, Neurologic Disorder, Seizure Disorder, Thyroid Disorder Additional Past Medical History / Comment(s): crohns disease, diverticulosis, ibs, carpal tunnel, anemia, chronic back pain , migraines, pinched nerves, chronic colitis. History of Any Multi-Drug Resistant Organisms: None Reported Past Surgical History: Adenoidectomy, Appendectomy, Cholecystectomy, Orthopedic Surgery, Tonsillectomy Additional Past Surgical History / Comment(s): EGD/colonoscopy, right ankle surgery Past Anesthesia/Blood Transfusion Reactions: No Reported Reaction Additional Past Anesthesia/Blood Transfusion Reaction / Comment(s): hallucinations Past Psychological History: Anxiety, Bipolar, Depression, PTSD Smoking Status: Current every day smoker Past Alcohol Use History: None Reported Past Drug Use History: None Reported - Past Family History Father Family Medical History: Diabetes Mellitus, Hyperlipidemia Mother Family Medical History: Cancer, CVA/TIA, Deep Vein Thrombosis (DVT), Osteoarthritis (OA), Thyroid Disorder Additional Family Medical History / Comment(s): Extensive tattoos throughout body Medications and Allergies Home Medications Medication Instructions Recorded Confirmed Type QUEtiapine [SEROquel] 500 mg PO HS 04/22/17 11/16/19 History Beclomethasone Dipropionate [Qvar 2 puff INHALATION RT-DAILY 02/07/18 11/16/19 History 80 mcg] Levothyroxine Sodium [Synthroid] 137 mcg PO DAILY 08/07/18 11/16/19 History Loratadine [Claritin] 10 mg PO DAILY PRN 08/07/18 11/16/19 History Montelukast [Singulair] 10 mg PO DAILY 08/07/18 11/16/19 History Balsalazide Disodium 2,250 mg PO TID 11/16/19 11/16/19 History Butalbital/Aspirin/Caffeine 1 cap PO BID 11/16/19 11/16/19 History [Secwojyujv-XZG-Tbmfdocj Cap 50-325-40] Gabapentin [Neurontin] 400 mg PO TID 11/16/19 11/16/19 History LORazepam [Ativan] 1 mg PO BID PRN 11/16/19 11/16/19 History Lansoprazole [Prevacid] 15 mg PO QAM 11/16/19 11/16/19 History Lisinopril-Hctz 20-25 mg 2 tab PO DAILY 11/16/19 11/16/19 History [Zestoretic 20-25] PARoxetine [Paxil] 20 mg PO DAILY 11/16/19 11/16/19 History oxyCODONE-APAP 10-325MG [Percocet 1 tab PO TID 11/16/19 11/16/19 History 10-325 mg] Albuterol Inhaler [Ventolin Hfa 2 puff INHALATION RT-QID #1 inhaler 11/19/19 Rx Inhaler] Dexamethasone 6 mg PO DAILY #7 tablet 11/19/19 Rx Divalproex Sodium [Divalproex 2,000 mg PO BID 11/19/19 11/19/19 History Sodium ER] Levofloxacin [Levaquin] 750 mg PO DAILY 4 Days #4 tab 11/19/19 Rx Rivaroxaban [Xarelto] 2.5 mg PO BID #60 tab 11/19/19 Rx Cephalexin [Keflex] 500 mg PO Q6H #40 cap 02/18/20 Rx Cephalexin [Keflex] 500 mg PO Q6HR #40 cap 02/18/20 Rx Allergies Allergy/AdvReac Type Severity Reaction Status Date / Time dicyclomine [From Bentyl] Allergy Severe Hallucinati Verified 03/05/20 22:02 ons granisetron HCl [From Kytril] Allergy Severe Anaphylaxis Verified 03/05/20 22:02 baclofen Allergy Rash/Hives Verified 03/05/20 22:02 butorphanol tartrate Allergy Rash/Hives Verified 03/05/20 22:02 [From Stadol] ketorolac tromethamine Allergy Rash/Hives Verified 03/05/20 22:02 [From Toradol] meperidine HCl [From Demerol] Allergy Swelling Verified 03/05/20 22:02 pregabalin [From Lyrica] Allergy Unknown Verified 03/05/20 22:02 risperidone [From Risperdal] Allergy Dyspnea Verified 03/05/20 22:02 sulfamethoxazole Allergy Rash/Hives Verified 03/05/20 22:02 [From Bactrim] trimethoprim [From Bactrim] Allergy Rash/Hives Verified 03/05/20 22:02 codeine AdvReac Vomiting & Verified 03/05/20 22:02 Headache methylprednisolone AdvReac Vomiting & Verified 03/05/20 22:02 [From Medrol] Headache Physical Exam Vitals: Vital Signs Temp Pulse Resp BP Pulse Ox 03/06/20 04:02 97.6 F 87 19 120/90 100 03/06/20 01:13 97 18 116/76 98 03/05/20 23:48 96 18 101/62 98 03/05/20 23:00 104 H 18 110/65 96 03/05/20 22:47 113 H 18 93/58 96 03/05/20 22:17 112 H 18 104/63 96 03/05/20 21:53 98.3 F 130 H 22 125/53 93 L Intake and Output 03/05/20 03/06/20 03/06/20 22:59 06:59 14:59 Other: Weight 90.718 kg GENERAL: The patient is alert and oriented x3, not in any acute distress. Well developed, well nourished. HEENT: Pupils are round and equally reacting to light. EOMI. No scleral icterus. No conjunctival pallor. Normocephalic, atraumatic. No pharyngeal erythema. No thyromegaly. CARDIOVASCULAR: S1 and S2 present. No murmurs, rubs, or gallops. PULMONARY: Chest is clear to auscultation, no wheezing or crackles. ABDOMEN: Soft, nontender, nondistended, normoactive bowel sounds. No palpable organomegaly. MUSCULOSKELETAL: No joint swelling or deformity. EXTREMITIES: No cyanosis, clubbing, or pedal edema. NEUROLOGICAL: Gross neurological examination did not reveal any focal deficits. SKIN: No rashes. No petechiae Results CBC & Chem 7: 03/06/20 04:13 03/06/20 04:13 Labs: Abnormal Lab Results - Last 24 Hours (Table) 03/05/20 03/05/20 03/05/20 Range/Units 21:59 21:59 21:59 WBC 15.0 H (3.8-10.6) k/uL RBC (3.80-5.40) m/uL Hgb 10.8 L (11.4-16.0) gm/dL Hct (34.0-46.0) % MCHC 30.3 L (31.0-37.0) g/dL RDW 17.4 H (11.5-15.5) % Plt Count 571 H (150-450) k/uL Neutrophils # 12.2 H (1.3-7.7) k/uL Sodium 135 L (137-145) mmol/L Chloride (98-107) mmol/L Carbon Dioxide 6 L* (22-30) mmol/L Glucose 235 H (74-99) mg/dL POC Glucose (mg/dL) (75-99) mg/dL Plasma Lactic Acid Jeremy (0.7-2.0) mmol/L Calcium (8.4-10.2) mg/dL Urine Protein (Negative) Urine Ketones (Negative) U Tricyclic Antidepress Detected H (NotDetected) U Benzodiazepines Scrn Detected H (NotDetected) 03/05/20 03/05/20 03/05/20 Range/Units 21:59 21:59 22:00 WBC (3.8-10.6) k/uL RBC (3.80-5.40) m/uL Hgb (11.4-16.0) gm/dL Hct (34.0-46.0) % MCHC (31.0-37.0) g/dL RDW (11.5-15.5) % Plt Count (150-450) k/uL Neutrophils # (1.3-7.7) k/uL Sodium (137-145) mmol/L Chloride (98-107) mmol/L Carbon Dioxide (22-30) mmol/L Glucose (74-99) mg/dL POC Glucose (mg/dL) 229 H (75-99) mg/dL Plasma Lactic Acid Jeremy 14.0 H* (0.7-2.0) mmol/L Calcium (8.4-10.2) mg/dL Urine Protein Trace H (Negative) Urine Ketones 1+ H (Negative) U Tricyclic Antidepress (NotDetected) U Benzodiazepines Scrn (NotDetected) 03/05/20 03/06/20 03/06/20 Range/Units 22:56 01:11 04:13 WBC 11.3 H (3.8-10.6) k/uL RBC 3.63 L (3.80-5.40) m/uL Hgb 10.1 L (11.4-16.0) gm/dL Hct 30.6 L (34.0-46.0) % MCHC (31.0-37.0) g/dL RDW 17.7 H (11.5-15.5) % Plt Count 474 H (150-450) k/uL Neutrophils # 8.2 H (1.3-7.7) k/uL Sodium (137-145) mmol/L Chloride (98-107) mmol/L Carbon Dioxide (22-30) mmol/L Glucose (74-99) mg/dL POC Glucose (mg/dL) (75-99) mg/dL Plasma Lactic Acid Jeremy 12.2 H* 7.8 H* (0.7-2.0) mmol/L Calcium (8.4-10.2) mg/dL Urine Protein (Negative) Urine Ketones (Negative) U Tricyclic Antidepress (NotDetected) U Benzodiazepines Scrn (NotDetected) 03/06/20 03/06/20 Range/Units 04:13 04:13 WBC (3.8-10.6) k/uL RBC (3.80-5.40) m/uL Hgb (11.4-16.0) gm/dL Hct (34.0-46.0) % MCHC (31.0-37.0) g/dL RDW (11.5-15.5) % Plt Count (150-450) k/uL Neutrophils # (1.3-7.7) k/uL Sodium 136 L (137-145) mmol/L Chloride 113 H (98-107) mmol/L Carbon Dioxide 15 L (22-30) mmol/L Glucose 106 H (74-99) mg/dL POC Glucose (mg/dL) (75-99) mg/dL Plasma Lactic Acid Jeremy 2.4 H* (0.7-2.0) mmol/L Calcium 8.2 L (8.4-10.2) mg/dL Urine Protein (Negative) Urine Ketones (Negative) U Tricyclic Antidepress (NotDetected) U Benzodiazepines Scrn (NotDetected) Assessment and Plan Assessment: Recurrent seizure, related to breakthrough seizure for noncompliance Elevated lactic acid noncompliance with medication History of mild intermittent bronchial asthma GERD History of Anxiety/bipolar/post traumatic stress disorder History of Crohn's disease Plan: This is a pleasant 35 years old female who presents with recurrent seizures and elevated lactic acid. Neurologist been consulted, continue with seizure medication. She is currently on Depakote ER 2000 mg twice a day (resumed )and Ativan as needed. Continue with IV hydration. Labs and medication were reviewed.. Continue same treatment. Continue with symptomatic treatment. Resume home medication. Monitor lytes and vitals. DVT and GI prophylaxis. Further recommendations depends on the clinical course of the patient DVT prophylaxis: Subcutaneous heparin GI Prophylaxis: Pepcid longer-term Prognosis is guarded
[2020-03-06] MEDS: HEPARIN SODIUM,PORCINE 5,000 UNIT/ML 1 ML VIAL SQ SCH ×2 (10:12→22:39)
[2020-03-06] MEDS ORDERED: diphenhydrAMINE 50 MG/ML 1 ML VIAL IVP STA (10:42)
[2020-03-06] MEDS ORDERED: PROCHLORPERAZINE INJ 10 MG/2 ML VIAL IVP STA (10:42)
[2020-03-06] MEDS ORDERED: IBUPROFEN 600 MG TAB PO STA (10:48)
[2020-03-06] MEDS ORDERED: LACOSAMIDE IV 200 MG in SODIUM CHLORIDE 0.9% 50 ML IVPB STA (11:07)
--- NOTE | 2020-03-06 11:18 | P.CNNES ---
History of Present Illness Consult date: 03/06/20 Requesting physician: Pedro Garcia Reason for Consult: seizure History of Present Illness: This is a 35-year-old woman with history of epilepsy that presented to the emergency department via EMS on 03/05/2020 for multiple seizures. His document appreciate EMS that the patient had multiple tonic-clonic seizures. She had an approximate 5 seizures a home and on transport she had 6 seizures. Currently the patient she notified me that she missed a couple doses the day before presented to the hospital. She cannot tell me why she missed the her Depakote medication. As a result that she said that she had seizures Patient was given 2.5 mg of IV Versed. In the emergency department she was post ictal and breat antonio spontaneously and the was protecting the airway and was moving all extremities. The patient was given 1 g of Keppra in the ED. She was started on the Depakote extended release 2000 mg twice a day by ED. seems that in the ED the patient was given 1 mg of Ativan just past midnight around like 12:47 AM since the patient had a seizure per the nurse. Otherwise per the nurse the patient is doing well currently. Patient home dose of antiepileptic is Depakote extended release 2000 mg twice a day. As well as gabapentin 400 mg 3 times a day. She said that when she is compliant with taking the Depakote as well as the gabapentin she usually does not have any seizures. She cannot tell me how frequent the seizures happen. She is to follow up with Dr. Bonilla for management of her seizures is not followed on the last couple years and could not tell me why. Currently the patient states that she's having headache throughout her head at about a 7-8 out of 10 and it's hurting pain. She denies any nausea or vomiting denies any photophobia or phonophobia. He said that she usually has headaches after a seizure. Regarding description seizure she said that prior to the episode the she gets t he twitching of all extremities and she would have a generalized tonic-clonic seizure. There is episode she has urinary incontinence but no tongue bite or bowel incontinence. She had some last day last last 4. She's been having seizures according to her for years but cannot tell me for how long. history she said that she was a product of appropriate gestation age, and there is no complication and that she thinks was vaginal delivery. Mother had history of seizures as a child. She has smokes half a pack a day for years. Work-up in the hospital consisted of: Vital signs is a blood pressure of 125/53, heart rate of 1:30, respiratory of 22, temperature of 98.3 Fahrenheit and the pulse ox of 93 L at room air. Then the patient was placed on 2 L of nasal cannula as a result. CT of the head is reported as negative CT scan of the brain. No change at. Patient initial white blood cells 15.0 on presentation and the today's a white blood cells 11.3. It's likely reactive because of the seizures. Lactic acid on presentation 7.8 and repeat is 2.4. Sodium is 136. Patient had an EEG in our facility on 04/26/2017 for a seizure and at that time she was on Depakote as well as gabapentin and the EEG was reported as normal. Review of Systems Review of system: The 12 point system was reviewed and apparent positive and negative per HPI. Past Medical History Past Medical History: Asthma, Fibromyalgia, GERD/Reflux, Neurologic Disorder, Seizure Disorder, Thyroid Disorder Additional Past Medical History / Comment(s): crohns disease, diverticulosis, ibs, carpal tunnel, anemia, chronic back pain , migraines, pinched nerves, chronic colitis. History of Any Multi-Drug Resistant Organisms: None Reported Past Surgical History: Adenoidectomy, Appendectomy, Cholecystectomy, Orthopedic Surgery, Tonsillectomy Additional Past Surgical History / Comment(s): EGD/colonoscopy, right ankle surgery Past Anesthesia/Blood Transfusion Reactions: No Reported Reaction Additional Past Anesthesia/Blood Transfusion Reaction / Comment(s): hallucinations Past Psychological History: Anxiety, Bipolar, Depression, PTSD Smoking Status: Current every day smoker Past Alcohol Use History: None Reported Past Drug Use History: None Reported - Past Family History Father Family Medical History: Diabetes Mellitus, Hyperlipidemia Mother Family Medical History: Cancer, CVA/TIA, Deep Vein Thrombosis (DVT), Osteoarthritis (OA), Thyroid Disorder Additional Family Medical History / Comment(s): Extensive tattoos throughout body Medications and Allergies Home Medications Medication Instructions Recorded Confirmed Type QUEtiapine [SEROquel] 500 mg PO HS 04/22/17 03/06/20 History Beclomethasone Dipropionate [Qvar 2 puff INHALATION RT-DAILY 02/07/18 03/06/20 History 80 mcg] Levothyroxine Sodium [Synthroid] 137 mcg PO DAILY 08/07/18 03/06/20 History Loratadine [Claritin] 10 mg PO DAILY PRN 08/07/18 03/06/20 History Montelukast [Singulair] 10 mg PO DAILY 08/07/18 03/06/20 History Balsalazide Disodium 2,250 mg PO TID 11/16/19 03/06/20 History Butalbital/Aspirin/Caffeine 1 cap PO BID 11/16/19 03/06/20 History [Qzrhxqzkad-AVQ-Siqfohas Cap 50-325-40] Gabapentin [Neurontin] 400 mg PO TID 11/16/19 03/06/20 History Lisinopril-Hctz 20-25 mg 2 tab PO DAILY 11/16/19 03/06/20 History [Zestoretic 20-25] oxyCODONE-APAP 10-325MG [Percocet 1 tab PO TID 11/16/19 03/06/20 History 10-325 mg] Albuterol Inhaler [Ventolin Hfa 2 puff INHALATION RT-QID #1 inhaler 11/19/19 03/06/20 Rx Inhaler] Divalproex Sodium [Divalproex 2,000 mg PO BID 11/19/19 03/06/20 History Sodium ER] Cephalexin [Keflex] 500 mg PO Q6HR #40 cap 02/18/20 03/06/20 Rx Famotidine [Pepcid] 20 mg PO DAILY 03/06/20 03/06/20 History Hydrocortisone Cream 1 applic TOPICAL BID 03/06/20 03/06/20 History [Hydrocortisone 2.5% Cream] Lidocaine Patch 4% 1 patch TOPICAL DAILY 03/06/20 03/06/20 History Ondansetron [Zofran] 8 mg PO Q8HR PRN 03/06/20 03/06/20 History PARoxetine HCL 40 mg PO DAILY 03/06/20 03/06/20 History Pantoprazole Sodium [Protonix] 40 mg PO DAILY 03/06/20 03/06/20 History Phentermine HCl [Adipex-P] 37.5 mg PO DAILY 03/06/20 03/06/20 History QUEtiapine [SEROquel] 100 mg PO BID@0800,1200 03/06/20 03/06/20 History Simvastatin [Zocor] 20 mg PO HS 03/06/20 03/06/20 History predniSONE [Deltasone] See Taper PO DAILY 03/06/20 03/06/20 History tiZANidine [Zanaflex] 4 - 8 mg PO Q8HR PRN 03/06/20 03/06/20 History Allergies Allergy/AdvReac Type Severity Reaction Status Date / Time dicyclomine [From Bentyl] Allergy Severe Hallucinati Verified 03/06/20 10:09 ons granisetron HCl [From Kytril] Allergy Severe Anaphylaxis Verified 03/06/20 10:09 azithromycin Allergy Rash/Hives Verified 03/06/20 10:09 baclofen Allergy Rash/Hives Verified 03/06/20 10:09 butorphanol [From Stadol] Allergy Rash/Hives Verified 03/06/20 10:09 butorphanol tartrate Allergy Rash/Hives Verified 03/06/20 10:09 [From Stadol] Cephalosporins Allergy Rash/Hives Verified 03/06/20 10:09 cyclobenzaprine Allergy Unknown Verified 03/06/20 10:09 [From Flexeril] dicloxacillin Allergy Rash/Hives Verified 03/06/20 10:09 granisetron [From Kytril] Allergy Anaphylaxis Verified 03/06/20 10:09 ketorolac Allergy Rash/Hives Verified 03/06/20 10:09 ketorolac tromethamine Allergy Rash/Hives Verified 03/06/20 10:09 [From Toradol] meperidine Allergy Unknown Verified 03/06/20 10:09 meperidine HCl [From Demerol] Allergy Swelling Verified 03/06/20 10:09 morphine Allergy Unknown Verified 03/06/20 10:09 pregabalin [From Lyrica] Allergy Unknown Verified 03/06/20 10:09 risperidone [From Risperdal] Allergy Dyspnea Verified 03/06/20 10:09 sulfamethoxazole Allergy Rash/Hives Verified 03/06/20 10:09 [From Bactrim] trimethoprim [From Bactrim] Allergy Rash/Hives Verified 03/06/20 10:09 codeine AdvReac Vomiting & Verified 03/06/20 10:09 Headache methylprednisolone AdvReac Vomiting & Verified 03/06/20 10:09 [From Medrol] Headache Physical Examination - Vital Signs Vital Signs: Vital Signs Temp Pulse Resp BP Pulse Ox 03/06/20 08:22 98 F 82 18 118/76 98 03/06/20 04:02 97.6 F 87 19 120/90 100 03/06/20 01:13 97 18 116/76 98 03/05/20 23:48 96 18 101/62 98 03/05/20 23:00 104 H 18 110/65 96 03/05/20 22:47 113 H 18 93/58 96 03/05/20 22:17 112 H 18 104/63 96 03/05/20 21:53 98.3 F 130 H 22 125/53 93 L Intake and Output 03/05/20 03/06/20 03/06/20 22:59 06:59 14:59 Other: Weight 90.718 kg GENERAL: The patient is lying in bed and is not in acute distress. CHEST: The heart rate is regular rate rhythm. No murmurs to auscultation. LUNG: Clear to auscultation bilaterally no wheezing noted throughout. Not labored breathing. ABDOMEN/GI: Bowel sounds present in all 4 quadrants. No tenderness to palpation throughout. NEUROLOGICAL: Higher mental function: The patient is awake, alert, oriented to self, place and time. Patient is following commands. No aphasia and no neglect. Cranial nerves: The pupils are round, equal and reactive to light and accommodation. Visual oden are full to confrontation throughout. Extraocular movement is intact no nystagmus is noted. Facial sensation is normal to touch throughout. The facial strength is normal throughout. Hearing is normal bilaterally to hand rub. Tongue is midline and moved [id number] without any difficulty. No dysarthria is noted. Shoulder shrug is normal bilaterally. Motor: The strength is 5 over 5 throughout. Normal tone and bulk. Cerebellum: Normal finger to nose bilaterally. Sensation: Sensation is normal to touch throughout. Reflexes (right/left): 2+ throughout. Plantars are downgoing bilaterally. Results AST of 19 ALT of 19 as well. Urinalysis is negative for urinary tract infection. Urine drug screen is positive for tricyclic antidepressant and benzodiazepine. Serum alcohol was less than 10. Serum ethanol less than 10. Salicylates is less than 1.0. - Laboratory Findings CBC and BMP: 03/06/20 04:13 03/06/20 04:13 Abnormal Lab Findings: Abnormal Labs 03/05/20 03/05/20 03/05/20 21:59 21:59 21:59 WBC 15.0 H RBC Hgb 10.8 L Hct MCHC 30.3 L RDW 17.4 H Plt Count 571 H Neutrophils # 12.2 H Sodium 135 L Chloride Carbon Dioxide 6 L* Glucose 235 H POC Glucose (mg/dL) Plasma Lactic Acid Jeremy Calcium Urine Protein Urine Ketones U Tricyclic Antidepress Detected H U Benzodiazepines Scrn Detected H 03/05/20 03/05/20 03/05/20 21:59 21:59 22:00 WBC RBC Hgb Hct MCHC RDW Plt Count Neutrophils # Sodium Chloride Carbon Dioxide Glucose POC Glucose (mg/dL) 229 H Plasma Lactic Acid Jeremy 14.0 H* Calcium Urine Protein Trace H Urine Ketones 1+ H U Tricyclic Antidepress U Benzodiazepines Scrn 03/05/20 03/06/20 03/06/20 22:56 01:11 04:13 WBC 11.3 H RBC 3.63 L Hgb 10.1 L Hct 30.6 L MCHC RDW 17.7 H Plt Count 474 H Neutrophils # 8.2 H Sodium Chloride Carbon Dioxide Glucose POC Glucose (mg/dL) Plasma Lactic Acid Jeremy 12.2 H* 7.8 H* Calcium Urine Protein Urine Ketones U Tricyclic Antidepress U Benzodiazepines Scrn 03/06/20 03/06/20 04:13 04:13 WBC RBC Hgb Hct MCHC RDW Plt Count Neutrophils # Sodium 136 L Chloride 113 H Carbon Dioxide 15 L Glucose 106 H POC Glucose (mg/dL) Plasma Lactic Acid Jeremy 2.4 H* Calcium 8.2 L Urine Protein Urine Ketones U Tricyclic Antidepress U Benzodiazepines Scrn Assessment and Plan Assessment: This is a 35-year-old female with history of epilepsy that presented to the emergency department on 03/05/2020 for recurrent seizure episodes. Provoke seizure due to medication noncompliance (missed couple doses of Depakote day prior) Post-ictal headache. History of epilepsy Tobacco use Plan: Currently the patient is on Depakote extended release 2000 mg twice a day which the is her home dose. Will check Depakote free level and total level. She was also restarted on her gabapentin 400 mg 1 tablet 3 times a day. Gabapentin the it is a seizure medication but not a great seizure medication. I'll place the patient on Vimpat 50 mg 1 tablet twice a day and I'll load the patient on Vimpat 200 mg once right now and discontinued gabapentin since gabapentin is not a great seizure medication. As well as gabapentin can cause encephalopathy as well as weight gain. Will not get EEG today since she has history of seizure. Guarding the headache given the patient Compazine, Benadryl and Toradol. Patient cannot get Toradol since she has ALLERGIES I'll give her ibuprofen. Patient cannot drive for 6 month until seizure-free per the [employer] law. She is to avoid climbing heights or heavy machinery. She is avoid swimming unless with supervision. She needs to follow-up with an outpatient neurologist within 1-2 weeks upon discharge. If the patient has no further seizure by tomorrow in the morning then she is clear from neurology perspective. Thank You for the Consultation. Demetrius Siddiqui M.D. Neuro-hospitalist Time with Patient: Greater than 30
[2020-03-06] MEDS ORDERED: ACETAMINOPHEN TAB 325 MG TAB PO PRN (20:47)
[2020-03-06] MEDS ORDERED: IBUPROFEN 400 MG TAB PO PRN (20:48)
[2020-03-06] MEDS: SODIUM CHLORIDE 0.9% 1,000 ML IV SCH ×2 (20:50→20:52)
[2020-03-06] MEDS ORDERED: oxyCODONE-APAP 10-325MG 1 EACH TAB PO PRN ×2 (22:15)
[2020-03-06] MEDS: LACOSAMIDE 50 MG TABLET PO SCH (23:02)
[2020-03-07 07:48] VITALS: BP 168/98; TEMP 98.7
[2020-03-07] MEDS: DIVALPROEX ER 500 MG TAB.ER.24H PO SCH (08:57)
[2020-03-07] MEDS: LACOSAMIDE 50 MG TABLET PO SCH (08:58)
[2020-03-07] MEDS: HEPARIN SODIUM,PORCINE 5,000 UNIT/ML 1 ML VIAL SQ SCH (09:00)
[2020-03-07 09:18] VITALS: PULSE 84; RESP 18
[2020-03-07] MEDS: FAMOTIDINE 20 MG/2 ML VIAL IV SCH (09:26)
--- NOTE | 2020-03-07 09:40 | P.PN ---
Subjective Progress Note Date: 03/07/20 Patient was seen at bedside and she stated that she had no further seizure-like activity. She feels like she is back to baseline. He denies of any urinary or bowel incontinence. Denies of any tongue soreness appear denies of any focal weakness or numbness. Denies of any headaches. Denies of any visual disturbance. Objective - Vital Signs Vital signs: Vital Signs Temp 98.7 F 03/07/20 07:47 Pulse 84 03/07/20 09:10 Resp 18 03/07/20 09:10 BP 168/98 03/07/20 07:47 Pulse Ox 100 03/07/20 07:47 Intake & Output 03/06/20 03/07/20 03/07/20 18:59 06:59 18:59 Intake Total 1480 Balance 1480 Intake: Amount of Fluid Infused ( 1000 ml) Oral 480 Other: Voiding Method Toilet - Exam GENERAL: The patient is lying in bed and is not in acute distress. NEUROLOGICAL: Higher mental function: The patient is awake, alert, oriented to self, place and time. Patient is following commands. No aphasia and no neglect. Cranial nerves: The pupils are round, equal and reactive to light and accommodation. Visual oden are full to confrontation throughout. Extraocular movement is intact no nystagmus is noted. Facial sensation is normal to touch throughout. The facial strength is normal throughout. Hearing is normal bilaterally to hand rub. Tongue is midline and moved [id number] without any difficulty. No dysarthria is noted. Shoulder shrug is normal bilaterally. Motor: The strength is 5 over 5 throughout. Normal tone and bulk. Cerebellum: Normal finger to nose bilaterally. Sensation: Sensation is normal to touch throughout. Reflexes (right/left): 2+ throughout. Plantars are downgoing bilaterally. - Labs CBC & Chem 7: 03/06/20 04:13 03/06/20 04:13 Assessment and Plan Assessment: This is a 35-year-old female with history of epilepsy that presented to the emergency department on 03/05/2020 for recurrent seizure episodes. Provoke seizure due to medication noncompliance (missed couple doses of Depakote day prior) Medication noncompliance (subtherapeutic Valproic acid 33.7) Post-ictal headache. History of epilepsy Tobacco use Plan: Continue Depakote extended release 2000 mg twice a day which the is her home dose. Discontinued Gabapentin 400 mg 1 tablet 3 times a day since not a great seizure medication. Continue Vimpat 50 mg 1 tablet twice a day (started on 03/06/20). Patient was notified to avoid driving for 6 months until seizure-free per the [facility] law. She is to avoid climbing heights or heavy machinery. She is avoid swimming unless with supervision. She needs to follow-up with an outpatient neurologist within 1-2 weeks upon discharge. Patient is clear from a neurology perspective. No further workup The plan was discussed with the patient as well as the primary team. Demetrius Siddiqui M.D. Neuro-hospitalist Time with Patient: Less than 30
--- NOTE | 2020-03-08 01:12 | P.DS ---
Providers Date of admission: 03/05/20 23:01 Attending physician: Trenton Carrillo MD Consults: 03/05/20 23:00 Consult Physician Routine Consulting Provider: Michael Hoffman Consult Reason/Comments: Seizures Do you want consulting provider notified?: Yes Primary care physician: Joan Varela [facility] Course: Diagnoses: Breakthrough multiple seizure, related to noncompliance Elevated lactic acid , came back to normal noncompliance with medication History of mild intermittent bronchial asthma GERD History of Anxiety/bipolar/post traumatic stress disorder History of Crohn's disease Hospital course: This is a pleasant 35 years old female with past medical history of seizure disorder, other medical history of mild intermittent bronchial asthma, seizure disorder, GERD/reflux, anxiety, bipolar, PTSD, Crohn's disease, fibromyalgia, hypothyroidism. She is a patient of Dr. Naveen Varela and Pedro Isidro. she has multiple ER visits and hospitalization, the last hospitalization was 11/20/23 pneumonia and asthma. Now presents because of recurrent seizures. Patient presents because of multiple seizures and elevated lactic acid, related to noncompliance as she was not taking her Depakote over the last 2 days, Depakote level was checked and it was low which goes with her noncompliance. Patient also received IV fluid and her lactic acid came back to normal. Next a patient is fully awake and oriented denies any other symptoms, no more seizure activities. Neurologist evaluated the patient yesterday and stop her gabapentin which is a week seizure medication and start her on Vimpat. Patient is back to normal baseline with no new complaints. Patient agrees to go home today. Patient was counseled extensively about the importance of compliance with medication Patient was cleared for discharge by neurologist Problems and management plan were discussed with the patient and he verbalized understanding and acceptance Patient was found stable and can be discharged home however he needs follow-up as an outpatient. Patient was instructed to follow up with PCP Dr. varela within one week and patient agrees. Also patient was instructed to follow up with her neurologist Dr. Bonilla home she hasn't seen for about a year and then she will need a referral from her PCP and patient was informed with the same Gen: patient is a AAOx3, no distress CVS: S1-S2, RRR, no murmur Lungs: B/L CTA, no wheezing Abdomen: soft, no distention, no tenderness, positive bowel sounds Extremity: no leg edema or induration Time spent more than 35 minutes Patient Condition at Discharge: Fair Plan - Discharge Summary New Discharge Prescriptions: New Lacosamide [Vimpat] 50 mg PO BID #60 tablet Continue QUEtiapine [SEROquel] 500 mg PO HS Beclomethasone Dipropionate [Qvar 80 mcg] 2 puff INHALATION RT-DAILY Montelukast [Singulair] 10 mg PO DAILY Levothyroxine Sodium [Synthroid] 137 mcg PO DAILY Balsalazide Disodium 2,250 mg PO TID Butalbital/Aspirin/Caffeine [Yqzilunasr-TMF-Gqxdswjq Cap 50-325-40] 1 cap PO BID Lisinopril-Hctz 20-25 mg [Zestoretic 20-25] 2 tab PO DAILY oxyCODONE-APAP 10-325MG [Percocet 10-325 mg] 1 tab PO TID Albuterol Inhaler [Ventolin Hfa Inhaler] 2 puff INHALATION RT-QID #1 inhaler Divalproex Sodium [Divalproex Sodium ER] 2,000 mg PO BID QUEtiapine [SEROquel] 100 mg PO BID@0800,1200 Ondansetron [Zofran] 8 mg PO Q8HR PRN PRN Reason: Nausea predniSONE [Deltasone] See Taper PO DAILY Famotidine [Pepcid] 20 mg PO DAILY Hydrocortisone Cream [Hydrocortisone 2.5% Cream] 1 applic TOPICAL BID Lidocaine Patch 4% 1 patch TOPICAL DAILY Simvastatin [Zocor] 20 mg PO HS Phentermine HCl [Adipex-P] 37.5 mg PO DAILY Pantoprazole Sodium [Protonix] 40 mg PO DAILY PARoxetine HCL 40 mg PO DAILY Discontinued Loratadine [Claritin] 10 mg PO DAILY PRN PRN Reason: ALLERGIES Gabapentin [Neurontin] 400 mg PO TID Cephalexin [Keflex] 500 mg PO Q6HR #40 cap tiZANidine [Zanaflex] 4 - 8 mg PO Q8HR PRN PRN Reason: Muscle Spasm Discharge Medication List QUEtiapine [SEROquel] 500 mg PO HS 04/22/17 [History] Beclomethasone Dipropionate [Qvar 80 mcg] 2 puff INHALATION RT-DAILY 02/07/18 [History] Levothyroxine Sodium [Synthroid] 137 mcg PO DAILY 08/07/18 [History] Montelukast [Singulair] 10 mg PO DAILY 08/07/18 [History] Balsalazide Disodium 2,250 mg PO TID 11/16/19 [History] Butalbital/Aspirin/Caffeine [Borpcziklx-BZS-Pcdxkweo Cap 50-325-40] 1 cap PO BID 11/16/19 [History] Lisinopril-Hctz 20-25 mg [Zestoretic 20-25] 2 tab PO DAILY 11/16/19 [History] oxyCODONE-APAP 10-325MG [Percocet 10-325 mg] 1 tab PO TID 11/16/19 [History] Albuterol Inhaler [Ventolin Hfa Inhaler] 2 puff INHALATION RT-QID #1 inhaler 11/19/19 [Rx] Divalproex Sodium [Divalproex Sodium ER] 2,000 mg PO BID 11/19/19 [History] Famotidine [Pepcid] 20 mg PO DAILY 03/06/20 [History] Hydrocortisone Cream [Hydrocortisone 2.5% Cream] 1 applic TOPICAL BID 03/06/20 [History] Lidocaine Patch 4% 1 patch TOPICAL DAILY 03/06/20 [History] Ondansetron [Zofran] 8 mg PO Q8HR PRN 03/06/20 [History] PARoxetine HCL 40 mg PO DAILY 03/06/20 [History] Pantoprazole Sodium [Protonix] 40 mg PO DAILY 03/06/20 [History] Phentermine HCl [Adipex-P] 37.5 mg PO DAILY 03/06/20 [History] QUEtiapine [SEROquel] 100 mg PO BID@0800,1200 03/06/20 [History] Simvastatin [Zocor] 20 mg PO HS 03/06/20 [History] predniSONE [Deltasone] See Taper PO DAILY 03/06/20 [History] Lacosamide [Vimpat] 50 mg PO BID #60 tablet 03/07/20 [Rx] Patient Instructions/Handouts: Recurrent Seizures in Adults (DC), Generalized Tonic Clonic Seizures (DC) Activity/Diet/Wound Care/Special Instructions: you cannot drive for 6 month until seizure-free per the [place] law. we recommend you to avoid climbing heights or heavy machinery, and to avoid swimming unless with supervision. Spoke with Eileen at Dr. Isidro's office, will send over referral follow up with them to make Dr. Bonilla's appointment. Discharge Disposition: HOME SELF-CARE
== END 2020-03-07 11:03 | disposition home or self-care (01) ==
LOC: EC 21:50 → INTOOBSV 23:01 → 3SCARD 23:01 → 4SSUR 03-06 17:34 → 5NMEDONC 03-06 21:29 → UNDODISIN 03-07 11:03
PROVIDERS: ADMIT Internal Medicine; ATTEND Internal Medicine
DX: G40.401 Other generalized epilepsy and epileptic syndromes, not intractable, with status epilepticus (principal); E87.2 Acidosis; K50.90 Crohn's disease, unspecified, without complications; F31.9 Bipolar disorder, unspecified; J45.20 Mild intermittent asthma, uncomplicated; D64.9 Anemia, unspecified; K57.90 Diverticulosis of intestine, part unspecified, without perforation or abscess without bleeding; E03.9 Hypothyroidism, unspecified; K21.9 Gastro-esophageal reflux disease without esophagitis; G89.29 Other chronic pain; K58.9 Irritable bowel syndrome, unspecified; M54.9 Dorsalgia, unspecified; M79.7 Fibromyalgia; G43.909 Migraine, unspecified, not intractable, without status migrainosus; F43.10 Post-traumatic stress disorder, unspecified; F17.210 Nicotine dependence, cigarettes, uncomplicated; F41.9 Anxiety disorder, unspecified; M54.10 Radiculopathy, site unspecified; D72.829 Elevated white blood cell count, unspecified; Z91.19 Patient's noncompliance with other medical treatment and regimen; Z91.14 Patient's other noncompliance with medication regimen; Z79.01 Long term (current) use of anticoagulants; Z79.890 Hormone replacement therapy; Z79.51 Long term (current) use of inhaled steroids; Z79.891 Long term (current) use of opiate analgesic; Z79.899 Other long term (current) drug therapy; Z88.2 Allergy status to sulfonamides; Z88.5 Allergy status to narcotic agent; Z88.8 Allergy status to other drugs, medicaments and biological substances; Z88.1 Allergy status to other antibiotic agents; Z87.01 Personal history of pneumonia (recurrent); Z90.49 Acquired absence of other specified parts of digestive tract; Z98.890 Other specified postprocedural states; Z83.3 Family history of diabetes mellitus; Z80.9 Family history of malignant neoplasm, unspecified; Z82.3 Family history of stroke; Z83.2 Family history of diseases of the blood and blood-forming organs and certain disorders involving the immune mechanism; Z83.49 Family history of other endocrine, nutritional and metabolic diseases; Z82.49 Family history of ischemic heart disease and other diseases of the circulatory system; Z82.61 Family history of arthritis
CPT/HCPCS: 96376 ×2; 96361; 96365; 96367; 96375; 99291; 36415; 94760; 93005; 80164; 80165; 80053 ×2; 82550; 83605 ×2; 83735 ×2; 85025 ×2; 85610; 81003; 81025; 84703; 80306; 83520; 70450; G0378 ×5; G0480 ×2; J2060; J1200; J0780; C9254; J1953; 80320; 80329

== ENCOUNTER 2020-03-21 12:23 | Observation (INO) | payer OTHER ==
[2020-03-21 12:32] LABS: Glucose,Whole Blood 107 mg/dL (75-99)
--- NOTE | 2020-03-21 12:43 | ED ---
General Adult HPI - General Stated complaint: Overdose Time Seen by Provider: 03/21/20 12:27 Source: patient, EMS, RN notes reviewed Mode of arrival: EMS Limitations: altered mental status, physical limitation - History of Present Illness Initial comments: Patient is a 35-year-old female presenting to the emergency department with concern for overdose. Patient was found altered with empty bottles of Percocet and fiorcet. Patient admits to taking too much of her medication. Patient is unclear when she took medication or how much that she took. Patient is a poor historian and does not provide much more history. - Related Data Home Medications Medication Instructions Recorded Confirmed QUEtiapine [SEROquel] 500 mg PO HS 04/22/17 03/21/20 Beclomethasone Dipropionate [Qvar 2 puff INHALATION RT-DAILY 02/07/18 03/21/20 80 mcg] Levothyroxine Sodium [Synthroid] 137 mcg PO DAILY 08/07/18 03/21/20 Montelukast [Singulair] 10 mg PO DAILY 08/07/18 03/21/20 Balsalazide Disodium 2,250 mg PO TID 11/16/19 03/21/20 Butalbital/Aspirin/Caffeine 1 cap PO BID 11/16/19 03/21/20 [Silcfiwifj-FGR-Sjrbufgc Cap 50-325-40] Lisinopril-Hctz 20-25 mg 2 tab PO DAILY 11/16/19 03/21/20 [Zestoretic 20-25] oxyCODONE-APAP 10-325MG [Percocet 1 tab PO TID 11/16/19 03/21/20 10-325 mg] Divalproex Sodium [Divalproex 2,000 mg PO BID 11/19/19 03/21/20 Sodium ER] Famotidine [Pepcid] 20 mg PO DAILY 03/06/20 03/21/20 Hydrocortisone Cream 1 applic TOPICAL BID 03/06/20 03/21/20 [Hydrocortisone 2.5% Cream] Lidocaine Patch 4% 1 patch TOPICAL DAILY 03/06/20 03/21/20 Ondansetron [Zofran] 8 mg PO Q8HR PRN 03/06/20 03/21/20 PARoxetine HCL 40 mg PO DAILY 03/06/20 03/21/20 Pantoprazole Sodium [Protonix] 40 mg PO DAILY 03/06/20 03/21/20 Phentermine HCl [Adipex-P] 37.5 mg PO DAILY 03/06/20 03/21/20 QUEtiapine [SEROquel] 100 mg PO BID@0800,1200 03/06/20 03/21/20 Simvastatin [Zocor] 20 mg PO HS 03/06/20 03/21/20 predniSONE [Deltasone] See Taper PO DAILY 03/06/20 03/21/20 Previous Rx's Medication Instructions Recorded Albuterol Inhaler [Ventolin Hfa 2 puff INHALATION RT-QID #1 inhaler 11/19/19 Inhaler] Lacosamide [Vimpat] 50 mg PO BID #60 tablet 03/07/20 Allergies Allergy/AdvReac Type Severity Reaction Status Date / Time dicyclomine [From Bentyl] Allergy Severe Hallucinati Verified 03/21/20 14:25 ons granisetron HCl [From Kytril] Allergy Severe Anaphylaxis Verified 03/21/20 14:25 azithromycin Allergy Rash/Hives Verified 03/21/20 14:25 baclofen Allergy Rash/Hives Verified 03/21/20 14:25 butorphanol [From Stadol] Allergy Rash/Hives Verified 03/21/20 14:25 butorphanol tartrate Allergy Rash/Hives Verified 03/21/20 14:25 [From Stadol] Cephalosporins Allergy Rash/Hives Verified 03/21/20 14:25 cyclobenzaprine Allergy Unknown Verified 03/21/20 14:25 [From Flexeril] dicloxacillin Allergy Rash/Hives Verified 03/21/20 14:25 granisetron [From Kytril] Allergy Anaphylaxis Verified 03/21/20 14:25 ketorolac Allergy Rash/Hives Verified 03/21/20 14:25 ketorolac tromethamine Allergy Rash/Hives Verified 03/21/20 14:25 [From Toradol] meperidine Allergy Unknown Verified 03/21/20 14:25 meperidine HCl [From Demerol] Allergy Swelling Verified 03/21/20 14:25 morphine Allergy Unknown Verified 03/21/20 14:25 pregabalin [From Lyrica] Allergy Unknown Verified 03/21/20 14:25 risperidone [From Risperdal] Allergy Dyspnea Verified 03/21/20 14:25 sulfamethoxazole Allergy Rash/Hives Verified 03/21/20 14:25 [From Bactrim] trimethoprim [From Bactrim] Allergy Rash/Hives Verified 03/21/20 14:25 codeine AdvReac Vomiting & Verified 03/21/20 14:25 Headache methylprednisolone AdvReac Vomiting & Verified 03/21/20 14:25 [From Medrol] Headache Review of Systems ROS Statement: Those systems with pertinent positive or pertinent negative responses have been documented in the HPI. ROS Other: All systems not noted in ROS Statement are negative. Limitations: ROS unobtainable due to patients medical condition Past Medical History Past Medical History: Asthma, Fibromyalgia, GERD/Reflux, Neurologic Disorder, Se izure Disorder, Thyroid Disorder Additional Past Medical History / Comment(s): crohns disease, diverticulosis, ibs, carpal tunnel, anemia, chronic back pain , migraines, pinched nerves, chronic colitis. History of Any Multi-Drug Resistant Organisms: None Reported Past Surgical History: Adenoidectomy, Appendectomy, Cholecystectomy, Orthopedic Surgery, Tonsillectomy Additional Past Surgical History / Comment(s): EGD/colonoscopy, right ankle surgery Past Anesthesia/Blood Transfusion Reactions: No Reported Reaction Additional Past Anesthesia/Blood Transfusion Reaction / Comment(s): hallucinations Past Psychological History: Anxiety, Bipolar, Depression, PTSD Smoking Status: Current every day smoker Past Alcohol Use History: None Reported Past Drug Use History: None Reported - Past Family History Father Family Medical History: Diabetes Mellitus, Hyperlipidemia Mother Family Medical History: Cancer, CVA/TIA, Deep Vein Thrombosis (DVT), Osteoarthritis (OA), Thyroid Disorder Additional Family Medical History / Comment(s): Extensive tattoos throughout body General Exam Limitations: altered mental status General appearance: in no apparent distress Head exam: Present: atraumatic, normocephalic Eye exam: Present: normal appearance, PERRL ENT exam: Present: normal oropharynx Neck exam: Present: normal inspection Respiratory exam: Present: normal lung sounds bilaterally Cardiovascular Exam: Present: regular rate, normal rhythm GI/Abdominal exam: Present: soft. Absent: tenderness Extremities exam: Present: normal inspection Neurological exam: Present: other (Drowsy. Does follow some simple commands. Oriented to self.). Absent: motor sensory deficit Expanded Eye Response: (2) open to pain Motor Response: (6) obeys commands Verbal Response: (4) confused conversation Psychiatric exam: Present: flat affect Skin exam: Present: normal color Course Vital Signs 03/21/20 03/21/20 03/21/20 12:25 13:30 14:00 Temperature 97.5 F L Pulse Rate 92 94 85 Respiratory 20 18 18 Rate Blood Pressure 118/83 123/84 123/84 O2 Sat by Pulse 100 98 98 Oximetry - Reevaluation(s) Reevaluation #1: 03/21/20 13:43 Patient reevaluated and more alert. Patient still remains somewhat confused. Patient states she took approximately 12 pills however her history does not appear reliable at this time. Poison control did recommend additional labs and Acetadote 03/21/20 14:13 Case was discussed with Dr. Whitaker, who will admit For hospital call EKG Findings - EKG Comments: EKG Findings:: Normal sinus rhythm 84. AL 146. QRS 88. QT 400. QTc 472. Normal axis. Normal QRS. No acute ST change. Medical Decision Making - Lab Data Result diagrams: 03/21/20 12:49 03/21/20 12:49 Lab Results 03/21/20 03/21/20 03/21/20 Range/Units 12:31 12:49 12:49 WBC 17.8 H (3.8-10.6) k/uL RBC 3.98 (3.80-5.40) m/uL Hgb 10.1 L (11.4-16.0) gm/dL Hct 33.0 L (34.0-46.0) % MCV 82.9 (80.0-100.0) fL MCH 25.4 (25.0-35.0) pg MCHC 30.7 L (31.0-37.0) g/dL RDW 17.6 H (11.5-15.5) % Plt Count 629 H (150-450) k/uL MPV 6.9 Neutrophils % 79 % Lymphocytes % 15 % Monocytes % 4 % Eosinophils % 0 % Basophils % 0 % Neutrophils # 14.0 H (1.3-7.7) k/uL Lymphocytes # 2.7 (1.0-4.8) k/uL Monocytes # 0.7 (0-1.0) k/uL Eosinophils # 0.1 (0-0.7) k/uL Basophils # 0.0 (0-0.2) k/uL Hypochromasia Moderate Anisocytosis Slight PT (9.0-12.0) sec INR (<1.2) APTT (22.0-30.0) sec VBG pH (7.31-7.41) VBG pCO2 (37-51) mmHg VBG HCO3 (24-28) mmol/L Sodium 133 L (137-145) mmol/L Potassium 4.2 (3.5-5.1) mmol/L Chloride 104 (98-107) mmol/L Carbon Dioxide 21 L (22-30) mmol/L Anion Gap 8 mmol/L BUN 8 (7-17) mg/dL Creatinine 0.81 (0.52-1.04) mg/dL Est GFR (CKD-EPI)AfAm >90 (>60 ml/min/1.73 sqM) Est GFR (CKD-EPI)NonAf >90 (>60 ml/min/1.73 sqM) Glucose 100 H (74-99) mg/dL POC Glucose (mg/dL) 107 H (75-99) mg/dL POC Glu Propagator Laborer ID Du Mckeon Plasma Lactic Acid Jeremy (0.7-2.0) mmol/L Calcium 8.7 (8.4-10.2) mg/dL Total Bilirubin 0.4 (0.2-1.3) mg/dL AST 31 (14-36) U/L ALT 21 (4-34) U/L Alkaline Phosphatase 106 (38-126) U/L Ammonia (<30) umol/L Creatine Kinase (30-135) U/L Total Protein 6.9 (6.3-8.2) g/dL Albumin 3.6 (3.5-5.0) g/dL Salicylates <1.0 mg/dL Acetaminophen 84.1 H* ug/mL Valproic Acid ug/mL Serum Alcohol <10 mg/dL Acetone, Qual (Negative) 03/21/20 03/21/20 03/21/20 Range/Units 13:47 13:47 13:47 WBC (3.8-10.6) k/uL RBC (3.80-5.40) m/uL Hgb (11.4-16.0) gm/dL Hct (34.0-46.0) % MCV (80.0-100.0) fL MCH (25.0-35.0) pg MCHC (31.0-37.0) g/dL RDW (11.5-15.5) % Plt Count (150-450) k/uL MPV Neutrophils % % Lymphocytes % % Monocytes % % Eosinophils % % Basophils % % Neutrophils # (1.3-7.7) k/uL Lymphocytes # (1.0-4.8) k/uL Monocytes # (0-1.0) k/uL Eosinophils # (0-0.7) k/uL Basophils # (0-0.2) k/uL Hypochromasia Anisocytosis PT (9.0-12.0) sec INR (<1.2) APTT (22.0-30.0) sec VBG pH 7.35 (7.31-7.41) VBG pCO2 38 (37-51) mmHg VBG HCO3 20 L (24-28) mmol/L Sodium (137-145) mmol/L Potassium (3.5-5.1) mmol/L Chloride (98-107) mmol/L Carbon Dioxide (22-30) mmol/L Anion Gap mmol/L BUN (7-17) mg/dL Creatinine (0.52-1.04) mg/dL Est GFR (CKD-EPI)AfAm (>60 ml/min/1.73 sqM) Est GFR (CKD-EPI)NonAf (>60 ml/min/1.73 sqM) Glucose (74-99) mg/dL POC Glucose (mg/dL) (75-99) mg/dL POC Glu Propagator Laborer ID Plasma Lactic Acid Jeremy 2.3 H* (0.7-2.0) mmol/L Calcium (8.4-10.2) mg/dL Total Bilirubin (0.2-1.3) mg/dL AST (14-36) U/L ALT (4-34) U/L Alkaline Phosphatase (38-126) U/L Ammonia 15 (<30) umol/L Creatine Kinase 139 H (30-135) U/L Total Protein (6.3-8.2) g/dL Albumin (3.5-5.0) g/dL Salicylates mg/dL Acetaminophen ug/mL Valproic Acid <10.0 ug/mL Serum Alcohol mg/dL Acetone, Qual (Negative) 03/21/20 03/21/20 Range/Units 13:47 14:03 WBC (3.8-10.6) k/uL RBC (3.80-5.40) m/uL Hgb (11.4-16.0) gm/dL Hct (34.0-46.0) % MCV (80.0-100.0) fL MCH (25.0-35.0) pg MCHC (31.0-37.0) g/dL RDW (11.5-15.5) % Plt Count (150-450) k/uL MPV Neutrophils % % Lymphocytes % % Monocytes % % Eosinophils % % Basophils % % Neutrophils # (1.3-7.7) k/uL Lymphocytes # (1.0-4.8) k/uL Monocytes # (0-1.0) k/uL Eosinophils # (0-0.7) k/uL Basophils # (0-0.2) k/uL Hypochromasia Anisocytosis PT 10.4 (9.0-12.0) sec INR 1.0 (<1.2) APTT 29.3 (22.0-30.0) sec VBG pH (7.31-7.41) VBG pCO2 (37-51) mmHg VBG HCO3 (24-28) mmol/L Sodium (137-145) mmol/L Potassium (3.5-5.1) mmol/L Chloride (98-107) mmol/L Carbon Dioxide (22-30) mmol/L Anion Gap mmol/L BUN (7-17) mg/dL Creatinine (0.52-1.04) mg/dL Est GFR (CKD-EPI)AfAm (>60 ml/min/1.73 sqM) Est GFR (CKD-EPI)NonAf (>60 ml/min/1.73 sqM) Glucose (74-99) mg/dL POC Glucose (mg/dL) (75-99) mg/dL POC Glu Propagator Laborer ID Plasma Lactic Acid Jeremy (0.7-2.0) mmol/L Calcium (8.4-10.2) mg/dL Total Bilirubin (0.2-1.3) mg/dL AST (14-36) U/L ALT (4-34) U/L Alkaline Phosphatase (38-126) U/L Ammonia (<30) umol/L Creatine Kinase (30-135) U/L Total Protein (6.3-8.2) g/dL Albumin (3.5-5.0) g/dL Salicylates mg/dL Acetaminophen ug/mL Valproic Acid ug/mL Serum Alcohol mg/dL Acetone, Qual Negative (Negative) - Radiology Data Radiology results: report reviewed (ET scan of the brain revealed no acute process) Critical Care Time Critical Care Time: Yes Total Critical Care Time: 35 Disposition Clinical Impression: Acetaminophen overdose Disposition: ADMITTED IP TO THIS [facility] Condition: Serious Is patient prescribed a controlled substance at d/c from ED?: No Decision Time: 14:14
[2020-03-21 13:17] LABS: Anisocytosis Slight; Basophils % (A) 0 %; Eosinophils # (A) 0.1 k/uL (0-0.7); Eosinophils % (A) 0 %; HGB 10.1 gm/dL (11.4-16.0); Hypochromasia Moderate; Lymphocytes # (A) 2.7 k/uL (1.0-4.8); Lymphocytes % (A) 15 %; MCH 25.4 pg (25.0-35.0); MCHC 30.7 g/dL (31.0-37.0); MCV 82.9 fL (80.0-100.0); Mean Platelet Volume 6.9; Monocytes # (A) 0.7 k/uL (0-1.0); Monocytes % (A) 4 %; Neutrophils % (A) 79 %; Platelet Count 629 k/uL (150-450); RBC 3.98 m/uL (3.80-5.40); RDW 17.6 % (11.5-15.5); WBC 17.8 k/uL (3.8-10.6)
[2020-03-21 13:28] LABS: ALT 21 U/L (4-34); AST 31 U/L (14-36); African American GFR (CKD) >90 (>60 ml/min/1.73 sqM); Albumin 3.6 g/dL (3.5-5.0); Alcohol <10 mg/dL; Alkaline Phosphatase 106 U/L (38-126); Anion Gap 8 mmol/L; Blood Urea Nitrogen 8 mg/dL (7-17); Calcium 8.7 mg/dL (8.4-10.2); Carbon Dioxide 21 mmol/L (22-30); Chloride 104 mmol/L (98-107); Glucose 100 mg/dL (74-99); Non-African American GFR(CKD) >90 (>60 ml/min/1.73 sqM); Potassium 4.2 mmol/L (3.5-5.1); Salicylate <1.0 mg/dL; Sodium 133 mmol/L (137-145); Total Bilirubin 0.4 mg/dL (0.2-1.3); Total Protein 6.9 g/dL (6.3-8.2)
[2020-03-21 13:31] LABS: Acetaminophen 84.1 ug/mL
[2020-03-21] MEDS ORDERED: ACETYLCYSTEINE IV 15,000 MG in DEXTROSE 5% IN WATER 200 ML IV ONE ×2 (14:00)
[2020-03-21] MEDS ORDERED: NALOXONE 0.4 MG/ML 1 ML VIAL IV PRN (14:14)
[2020-03-21 14:17] LABS: Creatine Kinase 139 U/L (30-135)
[2020-03-21 14:22] LABS: Valproic Acid (Depakene) <10.0 ug/mL
[2020-03-21 14:37] LABS: Partial Thromboplastin Time 29.3 sec (22.0-30.0); Prothrombin Time 10.4 sec (9.0-12.0)
[2020-03-21 14:47] LABS: VBG PH 7.35 (7.31-7.41)
--- NOTE | 2020-03-21 14:50 | CT ---
EXAMINATION TYPE: CT brain wo con DATE OF EXAM: 03/21/2020 COMPARISON: 03/05/2020 INDICATION: Overdose DLP: 1099.4 mGycm, Automated exposure control for dose reduction was used. CONTRAST: None CT of the brain is performed utilizing 3 mm thick sections through the posterior fossa and 3 mm thick sections through the remaining calvarium. Study is performed within 24 hours of arrival to the hosp ital. No abnormal hyperdensity is present to suggest an acute intracranial hemorrhage. No mass lesion is evident. Small amount of left basal ganglion calcification may be present. This sli ghtly hyperdense area was present in stable from 03/05/2020 No acute infarcts are evident. Ventricles and sulci are appropriate for the patient age. Paranasal sinuses and mastoid air cells within the [id number] are clear. IMPRESSIONS: 1. No acute intracranial process
[2020-03-21] MEDS: SODIUM CHLORIDE 0.9% 1,000 ML IV SCH (14:55)
[2020-03-21] MEDS: PANTOPRAZOLE 40 MG/10 ML VIAL IV SCH (14:55)
[2020-03-21] MEDS ORDERED: DEXTROSE 5% IV ONE ×2 (15:00→19:00)
[2020-03-21] MEDS ORDERED: WATER IV ONE ×2 (15:00→19:00)
[2020-03-21] MEDS ORDERED: ACETYLCYSTEINE IV ONE ×2 (15:00→19:00)
[2020-03-21 15:01] LABS: Amphetamine Screen,Urine Not Detected (NotDetected); Barbiturate Screen,Urine Detected (NotDetected); Benzodiazepines Screen,Urine Detected (NotDetected); Cocaine Screen,Urine Not Detected (NotDetected); Methadone Screen, Urine Not Detected (NotDetected); Opiate Screen,Urine Not Detected (NotDetected); Oxycodone Screen, Urine Detected (NotDetected); Phencyclidine Screen,Urine Not Detected (NotDetected); Tricyclic Antidepressant,Urine Detected (NotDetected); Urn Cannabinoid Scrn Not Detected (NotDetected)
[2020-03-21 15:39] LABS: Lactic Acid, Venous 2.3 mmol/L (0.7-2.0)
--- NOTE | 2020-03-21 21:37 | P.HPIM ---
History of Present Illness H&P Date: 03/21/20 Chief Complaint: Drug overdose Patient is a 35-year-old female with a known history of asthma, seizure disorder, GERD, hypothyroidism, Crohn's disease, diverticulosis, IBS, carpal tunnel syndrome, chronic back pain and migraine headaches and other multiple medical problems including anxiety/depression/bipolar and PTSD and currently everyday smoker presents to ER with concern for Tylenol overdose. Patient was brought to the hospital by EMS due to altered mental status. Patient was apparently found with altered mentation and empty bottles of Percocet and Fioricet was noted at bedside. Patient states that she did take more pills than usual. Patient is confused and currently poor historian. CT head showed no acute intracranial process EKG showed normal sinus rhythm Laboratory data reviewed showed WBC 17.8, hemoglobin 10.1, platelets 629 Neutrophil 14.0 Sodium 133, potassium 4.2, chloride 104, bicarb is 21, BUN 18 creatinine 0.81 ABG showed pH of 7.35 and PCO2 38 Lactic acid 2.3 Ammonia 15 and CPK 139 Acetaminophen level 84.1 UDS is positive for oxycodone barbiturates tricyclic antidepressants and benzodiazepines Acetone negative Alcohol is less than 10 In the ED blood pressure is 118/83, afebrile, heart rate 92 and pulse ox 100% on room air. Review of Systems Could not be assessed at this time Past Medical History Past Medical History: Asthma, Fibromyalgia, GERD/Reflux, Neurologic Disorder, Seizure Disorder, Thyroid Disorder Additional Past Medical History / Comment(s): crohns disease, diverticulosis, ibs, carpal tunnel, anemia, chronic back pain , migraines, pinched nerves, chronic colitis. History of Any Multi-Drug Resistant Organisms: None Reported Past Surgical History: Adenoidectomy, Appendectomy, Cholecystectomy, Orthopedic Surgery, Tonsillectomy Additional Past Surgical History / Comment(s): EGD/colonoscopy, right ankle surgery Past Anesthesia/Blood Transfusion Reactions: No Reported Reaction Additional Past Anesthesia/Blood Transfusion Reaction / Comment(s): hallucinations Past Psychological History: Anxiety, Bipolar, Depression, PTSD Smoking Status: Current every day smoker Past Alcohol Use History: None Reported Past Drug Use History: None Reported - Past Family History Father Family Medical History: Diabetes Mellitus, Hyperlipidemia Mother Family Medical History: Cancer, CVA/TIA, Deep Vein Thrombosis (DVT), Osteoarthritis (OA), Thyroid Disorder Additional Family Medical History / Comment(s): Extensive tattoos throughout body Medications and Allergies Home Medications Medication Instructions Recorded Confirmed Type QUEtiapine [SEROquel] 500 mg PO HS 04/22/17 03/21/20 History Beclomethasone Dipropionate [Qvar 2 puff INHALATION RT-DAILY 02/07/18 03/21/20 History 80 mcg] Levothyroxine Sodium [Synthroid] 137 mcg PO DAILY 08/07/18 03/21/20 History Montelukast [Singulair] 10 mg PO DAILY 08/07/18 03/21/20 History Balsalazide Disodium 2,250 mg PO TID 11/16/19 03/21/20 History Butalbital/Aspirin/Caffeine 1 cap PO BID 11/16/19 03/21/20 History [Wfxnlyhryr-FQN-Wmktczjq Cap 50-325-40] Lisinopril-Hctz 20-25 mg 2 tab PO DAILY 11/16/19 03/21/20 History [Zestoretic 20-25] oxyCODONE-APAP 10-325MG [Percocet 1 tab PO TID 11/16/19 03/21/20 History 10-325 mg] Albuterol Inhaler [Ventolin Hfa 2 puff INHALATION RT-QID #1 inhaler 11/19/19 03/21/20 Rx Inhaler] Divalproex Sodium [Divalproex 2,000 mg PO BID 11/19/19 03/21/20 History Sodium ER] Famotidine [Pepcid] 20 mg PO DAILY 03/06/20 03/21/20 History Hydrocortisone Cream 1 applic TOPICAL BID 03/06/20 03/21/20 History [Hydrocortisone 2.5% Cream] Lidocaine Patch 4% 1 patch TOPICAL DAILY 03/06/20 03/21/20 History Ondansetron [Zofran] 8 mg PO Q8HR PRN 03/06/20 03/21/20 History PARoxetine HCL 40 mg PO DAILY 03/06/20 03/21/20 History Pantoprazole Sodium [Protonix] 40 mg PO DAILY 03/06/20 03/21/20 History Phentermine HCl [Adipex-P] 37.5 mg PO DAILY 03/06/20 03/21/20 History QUEtiapine [SEROquel] 100 mg PO BID@0800,1200 03/06/20 03/21/20 History Simvastatin [Zocor] 20 mg PO HS 03/06/20 03/21/20 History Lacosamide [Vimpat] 50 mg PO BID #60 tablet 03/07/20 03/21/20 Rx LORazepam [Ativan] 0.5 mg PO BID 03/22/20 03/22/20 History Allergies Allergy/AdvReac Type Severity Reaction Status Date / Time dicyclomine [From Bentyl] Allergy Severe Hallucinati Verified 03/21/20 14:25 ons granisetron HCl [From Kytril] Allergy Severe Anaphylaxis Verified 03/21/20 14:25 azithromycin Allergy Rash/Hives Verified 03/21/20 14:25 baclofen Allergy Rash/Hives Verified 03/21/20 14:25 butorphanol [From Stadol] Allergy Rash/Hives Verified 03/21/20 14:25 butorphanol tartrate Allergy Rash/Hives Verified 03/21/20 14:25 [From Stadol] Cephalosporins Allergy Rash/Hives Verified 03/21/20 14:25 cyclobenzaprine Allergy Unknown Verified 03/21/20 14:25 [From Flexeril] dicloxacillin Allergy Rash/Hives Verified 03/21/20 14:25 granisetron [From Kytril] Allergy Anaphylaxis Verified 03/21/20 14:25 ketorolac Allergy Rash/Hives Verified 03/21/20 14:25 ketorolac tromethamine Allergy Rash/Hives Verified 03/21/20 14:25 [From Toradol] meperidine Allergy Unknown Verified 03/21/20 14:25 meperidine HCl [From Demerol] Allergy Swelling Verified 03/21/20 14:25 morphine Allergy Unknown Verified 03/21/20 14:25 pregabalin [From Lyrica] Allergy Unknown Verified 03/21/20 14:25 risperidone [From Risperdal] Allergy Dyspnea Verified 03/21/20 14:25 sulfamethoxazole Allergy Rash/Hives Verified 03/21/20 14:25 [From Bactrim] trimethoprim [From Bactrim] Allergy Rash/Hives Verified 03/21/20 14:25 codeine AdvReac Vomiting & Verified 03/21/20 14:25 Headache methylprednisolone AdvReac Vomiting & Verified 03/21/20 14:25 [From Medrol] Headache Physical Exam Vitals: Vital Signs Temp Pulse Pulse Resp BP BP Pulse Ox 03/21/20 16:00 97.8 F 90 17 136/91 97 03/21/20 14:00 85 18 123/84 98 03/21/20 13:30 94 18 123/84 98 03/21/20 12:25 97.5 F L 92 20 118/83 100 Intake and Output 03/21/20 03/21/20 03/21/20 06:59 14:59 22:59 Output Total 1200 Balance -1200 Output: Urine 700 Post Void Residual 500 Other: # Voids 1 Weight 99.79 kg PHYSICAL EXAMINATION: Patient is lying in the bed , awake and alert but not oriented.. HEENT: Normocephalic. Neck is supple. Pupils reactive. Nostrils clear. Oral cavity is moist. Ears reveal no drainage. Neck reveals no JVD, carotid bruits, or thyromegaly. CHEST EXAMINATION: Trachea is central. Symmetrical expansion. Lung oden clear to auscultation and percussion. CARDIAC: Normal S1, S2 with no gallops. No murmurs ABDOMEN: Soft. Bowel sounds normal. No organomegaly. No abdominal bruits. Extremities: reveal no edema. No clubbing or cyanosis Neurologically awake, alert, oriented x0 with well-coordinated movements. No focal deficits noted Skin: No rash or skin lesions. Psychiatric: could not be assessed. Musculoskeletal: No joint swelling or deformity. Results CBC & Chem 7: 03/22/20 07:43 03/22/20 07:43 Labs: Abnormal Lab Results - Last 24 Hours (Table) 03/21/20 03/21/20 03/21/20 Range/Units 12:31 12:49 12:49 WBC 17.8 H (3.8-10.6) k/uL Hgb 10.1 L (11.4-16.0) gm/dL Hct 33.0 L (34.0-46.0) % MCHC 30.7 L (31.0-37.0) g/dL RDW 17.6 H (11.5-15.5) % Plt Count 629 H (150-450) k/uL Neutrophils # 14.0 H (1.3-7.7) k/uL VBG HCO3 (24-28) mmol/L Sodium 133 L (137-145) mmol/L Carbon Dioxide 21 L (22-30) mmol/L Glucose 100 H (74-99) mg/dL POC Glucose (mg/dL) 107 H (75-99) mg/dL Plasma Lactic Acid Jeremy (0.7-2.0) mmol/L Creatine Kinase (30-135) U/L Ur Oxycodone Screen (NotDetected) Acetaminophen 84.1 H* ug/mL Ur Barbiturates Screen (NotDetected) U Tricyclic Antidepress (NotDetected) U Benzodiazepines Scrn (NotDetected) 03/21/20 03/21/20 03/21/20 Range/Units 13:47 13:47 13:47 WBC (3.8-10.6) k/uL Hgb (11.4-16.0) gm/dL Hct (34.0-46.0) % MCHC (31.0-37.0) g/dL RDW (11.5-15.5) % Plt Count (150-450) k/uL Neutrophils # (1.3-7.7) k/uL VBG HCO3 20 L (24-28) mmol/L Sodium (137-145) mmol/L Carbon Dioxide (22-30) mmol/L Glucose (74-99) mg/dL POC Glucose (mg/dL) (75-99) mg/dL Plasma Lactic Acid Jeremy 2.3 H* (0.7-2.0) mmol/L Creatine Kinase 139 H (30-135) U/L Ur Oxycodone Screen (NotDetected) Acetaminophen ug/mL Ur Barbiturates Screen (NotDetected) U Tricyclic Antidepress (NotDetected) U Benzodiazepines Scrn (NotDetected) 03/21/20 Range/Units 14:46 WBC (3.8-10.6) k/uL Hgb (11.4-16.0) gm/dL Hct (34.0-46.0) % MCHC (31.0-37.0) g/dL RDW (11.5-15.5) % Plt Count (150-450) k/uL Neutrophils # (1.3-7.7) k/uL VBG HCO3 (24-28) mmol/L Sodium (137-145) mmol/L Carbon Dioxide (22-30) mmol/L Glucose (74-99) mg/dL POC Glucose (mg/dL) (75-99) mg/dL Plasma Lactic Acid Jeremy (0.7-2.0) mmol/L Creatine Kinase (30-135) U/L Ur Oxycodone Screen Detected H (NotDetected) Acetaminophen ug/mL Ur Barbiturates Screen Detected H (NotDetected) U Tricyclic Antidepress Detected H (NotDetected) U Benzodiazepines Scrn Detected H (NotDetected) Thrombosis Risk Factor Assmnt - DVT/VTE Prophylaxis DVT/VTE Prophylaxis: Pharmacologic Prophylaxis ordered - Choose All That Apply Any of the Below Risk Factors Present?: Yes Each Factor Represents 1 point: Obesity (BMI >25) Other Risk Factors: No Other congenital or acquired thrombophilia - If yes, enter type in comment: No Thrombosis Risk Factor Assessment Total Risk Factor Score: 1 Thrombosis Risk Factor Assessment Level: Low Risk Assessment and Plan Assessment: Acute acetaminophen overdose. Altered mental status secondary to above Leukocytosis. Rule out infection. UA and chest x-ray was ordered. Fibromyalgia Asthma stable GERD History of seizure disorder Hypothyroidism Crohn's disease, diverticulosis and IBS Chronic back pain Migraine headaches Anxiety/depression/bipolar disorder and PTSD Currently everyday smoker DVT prophylaxis with heparin subcu Plan: Patient will be continued on IV hydration. Was started on N-acetylcysteine and follow-up liver enzymes and acetaminophen level. Psychiatry was consulted. Patient will be continued on home medications including antiepileptic medications and levothyroxine. Avoid narcotic pain medications and follow-up closely. Further recommendations based on the clinical course. Prognosis guarded at this time. Time with Patient: Greater than 30
[2020-03-21] MEDS: BALSALAZIDE DISODIUM 750 MG CAPSULE PO SCH (23:44)
[2020-03-22 00:44] LABS: Appearance,Urine Clear (Clear); Bilirubin,Urine Negative (Negative); Blood,Urine Negative (Negative); Color,Urine Light Yellow; Glucose,Urine (UA) Negative (Negative); Ketones,Urine 1+ (Negative); Leukocyte Esterase,Urine Negative (Negative); Nitrite,Urine Negative (Negative); Protein,Urine Negative (Negative); Specific Gravity,Urine 1.012 (1.001-1.035); Urobilinogen,Urine <2.0 mg/dL (<2.0)
[2020-03-22] MEDS: HEPARIN SODIUM,PORCINE 5,000 UNIT/ML 1 ML VIAL SQ SCH ×5 (00:47→23:47)
[2020-03-22] MEDS: LEVOTHYROXINE 137 MCG TAB PO SCH (06:40)
[2020-03-22 08:07] LABS: Anisocytosis Slight; Basophils % (A) 0 %; Eosinophils # (A) 0.1 k/uL (0-0.7); Eosinophils % (A) 0 %; HGB 10.3 gm/dL (11.4-16.0); Hypochromasia Slight; Lymphocytes % (A) 14 %; MCH 25.8 pg (25.0-35.0); MCHC 31.3 g/dL (31.0-37.0); MCV 82.4 fL (80.0-100.0); Mean Platelet Volume 6.7; Monocytes # (A) 0.6 k/uL (0-1.0); Monocytes % (A) 4 %; Neutrophils % (A) 80 %; Platelet Count 618 k/uL (150-450); RBC 4.01 m/uL (3.80-5.40); RDW 17.6 % (11.5-15.5); WBC 13.8 k/uL (3.8-10.6)
[2020-03-22 08:25] LABS: ALT 18 U/L (4-34); AST 24 U/L (14-36); Acetaminophen <10.0 ug/mL; African American GFR (CKD) >90 (>60 ml/min/1.73 sqM); Albumin 3.8 g/dL (3.5-5.0); Alkaline Phosphatase 99 U/L (38-126); Amylase 95 U/L (30-110); Anion Gap 8 mmol/L; Blood Urea Nitrogen 3 mg/dL (7-17); Calcium 9.2 mg/dL (8.4-10.2); Carbon Dioxide 20 mmol/L (22-30); Chloride 107 mmol/L (98-107); Glucose 141 mg/dL (74-99); Lipase 97 U/L (23-300); Non-African American GFR(CKD) >90 (>60 ml/min/1.73 sqM); Potassium 3.7 mmol/L (3.5-5.1); Sodium 135 mmol/L (137-145); Total Bilirubin 0.5 mg/dL (0.2-1.3); Total Protein 7.1 g/dL (6.3-8.2)
[2020-03-22 08:36] LABS: INR 0.9 (<1.2); Prothrombin Time 9.9 sec (9.0-12.0)
--- NOTE | 2020-03-22 09:35 | XR ---
EXAMINATION TYPE: XR chest 1V DATE OF EXAM: 03/22/2020 COMPARISON: 11/17/2019 HISTORY: Leukocytosis TECHNIQUE: Single frontal view of the chest is obtained. FINDINGS: There is no focal air space opacity, pleural effusion, or pneumothorax seen. The cardiac silhouette size is within normal limits. The osseous structures are intact. Coarsened interstitium. IMPRESSION: 1. There is improved aeration at the lung bases with persistent coarsened interstitium which could be en the basis of interstitial pneumonitis. Correlate clinically.
[2020-03-22] MEDS: PANTOPRAZOLE 40 MG/10 ML VIAL IV SCH (09:56)
[2020-03-22] MEDS: LACOSAMIDE 50 MG TABLET PO SCH ×2 (09:56→21:47)
[2020-03-22] MEDS: FAMOTIDINE 20 MG TAB PO SCH (09:56)
[2020-03-22] MEDS: DIVALPROEX ER 500 MG TAB.ER.24H PO SCH ×2 (09:56→21:47)
[2020-03-22] MEDS: BALSALAZIDE DISODIUM 750 MG CAPSULE PO SCH ×3 (10:00→21:46)
--- NOTE | 2020-03-22 10:41 | CDI ---
Documentation Clarification Form Date: 03/22/2020 10:14:07 AM From: Paige Biggs RN CCDS Admit Date: 03/21/2020 02:14:00 PM Patient Name: Stacey Mistry Visit Number: [id number] Discharge Date: ATTENTION: The Clinical Documentation Specialists (CDI) and [facility] Coding Staff appreciate your assistance in clarifying documentation. Please respond to the clarification below the line at the bottom and electronically sign. The CDI & [facility] Coding staff will review the response and follow-up if needed. Please note: Queries are made part of the Legal Health Record. If you have any questions, please contact the author of this message via ITS. Dr. Sunitha Whitaker Altered Mental Status secondary to Acute acetaminophen overdose is documented in the H&P 03/21 History/Risk Factors: 35-year-old female presents to the ED via EMS for altered mental status found with empty bottles of Percocet and Fioricet at bedside. Medical History: Migraines, Chronic back pain, Anxiety, depression, bipolar disorder and PTSD Admitting Diagnosis: Acute acetaminophen overdose Clinical Indicators: Labs: 03/21 Acetaminophen 84.1, Recheck <10.0; 03/[address] 03/21: No acute intracranial process Treatment: 03/21 Acetylcysteine 15,000mg Ivpb x1; 03/21 Acetylcysteine 5,000mg x1; 03/21 Acetylcysteine 10,000 mg Ivpb In your professional opinion, please clarify the etiology of the Altered Mental Status, if known. Toxic Metabolic Encephalopathy Other condition (please specify) Unable to determine (Last Revision: July 2017) Toxic Metabolic Encephalopathy MTDD
[2020-03-22] MEDS: FLUTICASONE 110 MCG INHALER INHALATION SCH (10:53)
--- NOTE | 2020-03-22 11:59 | CONS ---
CONSULTATION DATE OF SERVICE: 03/22/2020 PURPOSE FOR CONSULTATION: Evaluate for altered mental status and substance abuse issues. HISTORY OF PRESENTING ILLNESS: Limited information was provided by the patient. Her mother provided more information from a telephone call. Patient is a 35-year-old female, she was admitted to the medical floor. She was brought in by EMS due to altered mental status. She was at home and quite confused. Her mother found empty bottles of Percocet and Fioricet. The patient was able to say she took extra medications, but she was unable to provide any more information than that. It is noted that the patient is prescribed oxycodone 10 mg tablets one 3 times a day, Adipex 37.5 mg a day, Fioricet 50 mg 1 twice a day and Ativan 0.5 mg twice a day. Psychotropic medications include Seroquel 100 mg twice a day, 500 mg at bedtime and Paxil 40 mg a day. In addition, she takes Depakote 2000 mg twice a day as other psychoactive medications. Apparently, the patient has been diagnosed with a seizure disorder. Pharmacy reports that the patient had the following medications filled including on 03/13, Percocet 90 tablets and on March 19, Ativan 0.5 mg, 30 tablets, and Fioricet 70 tablets. According to mother, all those 3 medication bottles are empty. Noteworthy, that the patient had a medical admission September 21, 2018 for similar circumstances of excessive use of medications. I refer the reader to the psychiatric consultation of Dr. Barnes of 09/21/2018 for details. Mother indicates that the current situation is the worst that the patient has been in as far as over use of medications. The patient also had two psychiatric admissions in September and December 2019, one in [place] and another in [place]. The two psychiatric admissions were primarily for depression. Mother noted that this time of year is difficult for the patient as she had lost custody of her two sons who now are approximately 9 and 7. She lost custody because of some misuse of medications. Mother says she talks incessantly about her sons. Mother believes that the patient's overuse of medications was not a suicide attempt, though she believes the patient would describe it as "to numb pain." Patient recently had been considering going into rehabilitation and had made a contact with [facility] and the patient was planning to go into [facility] after the first of the year, once she got through the holidays. This was very distressing to the patient's mother who saw the degree of drug use the patient has been involved in. Mother had been strongly urging the patient to go into a drug rehab immediately and that this discussion happened days prior to the events that brought her to the hospital. For the patient's part, she could only say that she had taken too many medications. She was not able to offer any rationale for the excessive use of medication. She described a history of chronic insomnia as the reason she is on Seroquel. She also said she has a history of migraine headaches and seizure disorder as the reason for other psychoactive medications. She did not provide much information beyond that. MENTAL STATUS EXAM: Patient was sitting up in bed. She did not give any eye contact. She was quite restless. She would respond to questions with brief answers. She had difficulty with word finding. There was some slight slurring of speech. She had a very intense anxious affect. Her mood was depressed. She was significantly distressed. There was no immediate evidence for thought disorder. She acknowledged over use of medications. She denied that she had intent of suicide. On cognitive exam, she said it was 12/18, beyond that she did make an effort to answer other cognitive questions. It is noted that throughout the interview the patient was very distressed and tearful, toward the end of the interview she started demanding that she needed to go home and really was not able to engage in any productive conversation. ASSESSMENT: This 35-year-old female is diagnosed with polysubstance dependence and acute substance withdrawal from barbiturates, opiates, benzodiazepine and possibly psychostimulants. She has long-term substance use issues with misuse of prescription habit-forming medications. Given the long-term use of those medications, it would be difficult to make any clear psychiatric diagnosis. Once the patient is medically stable, she should be transferred directly to a substance abuse treatment program, possibly [facility] is available to her. At this point, I agree with continuing her on Depakote and Vimpat for her seizure disorder. I would not continue her antidepressant Paxil. At this point, antidepressants have no benefit in the first 6-8 weeks of substance withdrawal. I would anticipate the patient having 6 significant substance withdrawal issues that tend to get worse and worse over the first 2 weeks with day 10 to day 14 being the worst of withdrawal. She could be at some risk for seizures due to benzodiazepine withdrawal. I would consider adding Zyprexa 2 or 3 times a day if she shows significant withdrawal issues including restlessness, high anxiety and general sense of distress, though at this point it is best just to monitor and see how she does. Given the significant over dose of medications that she has been exposed to. I will continue to follow. MMCARMENL / ROSE MARIEN: [id number] /
[2020-03-22] MEDS: SODIUM CHLORIDE 0.9% 1,000 ML IV SCH ×2 (17:52→21:48)
[2020-03-23] MEDS: LEVOTHYROXINE 137 MCG TAB PO SCH (05:49)
[2020-03-23] MEDS: SODIUM CHLORIDE 0.9% 1,000 ML IV SCH (06:52)
[2020-03-23] MEDS: FLUTICASONE 110 MCG INHALER INHALATION SCH ×2 (07:51→07:52)
[2020-03-23] MEDS: HEPARIN SODIUM,PORCINE 5,000 UNIT/ML 1 ML VIAL SQ SCH ×2 (09:11→15:07)
[2020-03-23] MEDS: ONDANSETRON 4 MG/2 ML VIAL IVP PRN ×3 (09:52→20:57)
[2020-03-23] MEDS: PANTOPRAZOLE 40 MG/10 ML VIAL IV SCH (09:52)
[2020-03-23] MEDS: BALSALAZIDE DISODIUM 750 MG CAPSULE PO SCH ×3 (09:54→20:58)
[2020-03-23] MEDS: DIVALPROEX ER 500 MG TAB.ER.24H PO SCH ×2 (10:06→20:58)
[2020-03-23] MEDS: LACOSAMIDE 50 MG TABLET PO SCH ×2 (10:06→20:57)
[2020-03-23] MEDS: FAMOTIDINE 20 MG TAB PO SCH (10:06)
[2020-03-23] MEDS: OLANZapine 5 MG TAB PO SCH (17:25)
[2020-03-24] MEDS: HEPARIN SODIUM,PORCINE 5,000 UNIT/ML 1 ML VIAL SQ SCH ×2 (00:23→08:35)
[2020-03-24] MEDS: SODIUM CHLORIDE 0.9% 1,000 ML IV SCH ×2 (00:23→08:38)
[2020-03-24 00:41] VITALS: RESP 18
[2020-03-24] MEDS: ONDANSETRON 4 MG/2 ML VIAL IVP PRN (04:57)
[2020-03-24 05:05] VITALS: BP 131/94; TEMP 98.3
[2020-03-24] MEDS: LEVOTHYROXINE 137 MCG TAB PO SCH (06:11)
[2020-03-24] MEDS: BALSALAZIDE DISODIUM 750 MG CAPSULE PO SCH (08:37)
[2020-03-24] MEDS: OLANZapine 5 MG TAB PO SCH (08:37)
[2020-03-24] MEDS ORDERED: DIVALPROEX ER 500 MG TAB.ER.24H PO SCH (09:00)
[2020-03-24] MEDS ORDERED: PANTOPRAZOLE 40 MG/10 ML VIAL IV SCH (09:00)
[2020-03-24] MEDS ORDERED: LACOSAMIDE 50 MG TABLET PO SCH (09:00)
[2020-03-24] MEDS: FLUTICASONE 110 MCG INHALER INHALATION SCH (09:01)
[2020-03-24 10:31] VITALS: PULSE 75
--- NOTE | 2020-03-24 10:37 | P.PN ---
Subjective Progress Note Date: 03/22/20 Principal diagnosis: Tylenol overdose Patient is a 35-year-old female with a known history of asthma, seizure disorder, GERD, hypothyroidism, Crohn's disease, diverticulosis, IBS, carpal tunnel syndrome, chronic back pain and migraine headaches and other multiple medical problems including anxiety/depression/bipolar and PTSD and currently everyday smoker presents to ER with concern for Tylenol overdose. Patient was brought to the hospital by EMS due to altered mental status. Patient was apparently found with altered mentation and empty bottles of Percocet and Fioricet was noted at bedside. Patient states that she did take more pills than usual. Patient is confused and currently poor historian. CT head showed no acute intracranial process EKG showed normal sinus rhythm Laboratory data reviewed showed WBC 17.8, hemoglobin 10.1, platelets 629 Neutrophil 14.0 Sodium 133, potassium 4.2, chloride 104, bicarb is 21, BUN 18 creatinine 0.81 ABG showed pH of 7.35 and PCO2 38 Lactic acid 2.3 Ammonia 15 and CPK 139 Acetaminophen level 84.1 UDS is positive for oxycodone barbiturates tricyclic antidepressants and benzodiazepines Acetone negative Alcohol is less than 10 In the ED blood pressure is 118/83, afebrile, heart rate 92 and pulse ox 100% on room air. 03/22/2020 Patient is currently more awake today. No complaints of chest pain or shortness of breath. Patient's feels very anxious. Wants to go home. Psychiatry was consulted and is evaluating for possible psychiatry was consulted for evaluation. Otherwise Tylenol came down to less than 10 and liver enzymes are not elevated. No fever no chills. Current medications reviewed. Objective - Vital Signs Vital signs: Vital Signs Temp 98.2 F 03/21/20 20:10 Pulse 90 03/22/20 15:14 Resp 18 03/22/20 15:14 BP 96/50 03/22/20 15:14 Pulse Ox 97 03/22/20 15:14 Intake & Output 03/22/20 03/22/20 03/23/20 06:59 18:59 06:59 Intake Total 1340 Output Total 750 750 Balance -750 590 Weight 100 kg Intake: Intake, IV Titration 600 Amount Sodium Chloride 0.9% 1, 600 000 ml @ 75 mls/hr IV . [id number] [facility] Rx#:[id number] Oral 740 Output: Urine 750 750 Other: Voiding Method Indwelling Catheter - Exam PHYSICAL EXAMINATION: Patient is lying in the bed comfortably, no acute distress, awake alert and mild confusion and anxious.. HEENT: Normocephalic. Neck is supple. Pupils reactive. Nostrils clear. Oral cavity is moist. Ears reveal no drainage. Neck reveals no JVD, carotid bruits, or thyromegaly. CHEST EXAMINATION: Trachea is central. Symmetrical expansion. Lung oden clear to auscultation and percussion. CARDIAC: Normal S1, S2 with no gallops. No murmurs ABDOMEN: Soft. Bowel sounds normal. No organomegaly. No abdominal bruits. Extremities: reveal no edema. No clubbing or cyanosis Neurologically awake, alert, oriented x3 with well-coordinated movements. No focal deficits noted Skin: No rash or skin lesions. Psychiatric: nonCoperative. Musculoskeletal: No joint swelling or deformity. Normal range of motion. - Labs CBC & Chem 7: 03/22/20 07:43 03/22/20 07:43 Labs: Abnormal Lab Results - Last 24 Hours (Table) 03/21/20 03/22/20 03/22/20 Range/Units 23:11 07:43 07:43 WBC 13.8 H (3.8-10.6) k/uL Hgb 10.3 L (11.4-16.0) gm/dL Hct 33.0 L (34.0-46.0) % RDW 17.6 H (11.5-15.5) % Plt Count 618 H (150-450) k/uL Neutrophils # 11.0 H (1.3-7.7) k/uL Sodium 135 L (137-145) mmol/L Carbon Dioxide 20 L (22-30) mmol/L BUN 3 L (7-17) mg/dL Glucose 141 H (74-99) mg/dL Urine Ketones 1+ H (Negative) Assessment and Plan Assessment: Acute acetaminophen overdose. Altered mental status secondary to above Leukocytosis. Rule out infection. UA and chest x-ray was ordered. Fibromyalgia Asthma stable GERD History of seizure disorder Hypothyroidism Crohn's disease, diverticulosis and IBS Chronic back pain Migraine headaches Anxiety/depression/bipolar disorder and PTSD Currently everyday smoker DVT prophylaxis with heparin subcu Plan: Patient will be continued on IV hydration. Was started on N-acetylcysteine and follow-up liver enzymes and acetaminophen level. Psychiatry was consulted. Patient will be continued on home medications including antiepileptic medications and levothyroxine. Avoid narcotic pain medications and follow-up closely. Further recommendations based on the clinical course. Prognosis guarded at this time. Time with Patient: Greater than 30
--- NOTE | 2020-03-24 11:28 | CONS ---
CONSULTATION DATE OF SERVICE: 03/16/2020 PURPOSE FOR CONSULTATION: Evaluate for altered mental status and substance abuse issues. INTERVAL HISTORY: The patient has been doing fair. She had a quiet day last night. She did not sleep very well last night. Today she is up. She has had contact with her mother. It is noted that I talked to the patient's mother and mother was feeling it was appropriate for the patient to be discharged to home. Mother felt that she and the patient had some reasonable discussions about the patient's situation and were in agreement with what help they need to get for her. Mother noted that she cleared out her daughter's room of all medications. There are no medications left in regard to barbiturates, opioid pain medications, or benzodiazepines. The patient does take other medications that the mother said she has in her possession and will give to the patient in an appropriate manner as prescribed. When I reviewed issues with the patient, she was in agreement with this. She had a fairly good outlook. She seemed to have a better understanding of the substance use issues that she has been battling with for a long time. She acknowledges that symptoms she is having now such as anxiety, what she calls my "migraine headaches," and other physical symptoms are in fact connected directly to withdrawal. I reviewed with the patient her plans over the next week with the holidays and what she anticipates as far as getting set up for substance abuse treatment. She says at this point, she is comfortable with the idea of going into inpatient substance abuse treatment. She voices no thoughts of harm to herself or others. She seems to have a fairly good understanding regarding the misuse of prescription addictive medications. ASSESSMENT: The patient appears to be stable for discharge at this time. Her mother indicated that she was comfortable having the patient return home with the two of them setting up followup with potentially inpatient substance abuse treatment after the first of the year. I had an extensive discussion with the patient regarding withdrawal issues. We talked about the time course of withdrawal and expectations. We talked about things that the patient can do to mitigate some of the difficulties that she may run into. I provided her with a handout regarding withdrawal and interventions. I had an extensive discussion about how she can take charge of her day-to-day situation and manage withdrawal symptoms. I will increase Zyprexa to 5 mg 3 times a day. The patient was wanting to have Paxil that she has been on restarted. I shared with the patient that it would not matter whether she is on it or not for the next 6 weeks. We discussed that Paxil may be a significant benefit once she gets into May as long as she remains substance free. On the other hand, if she chose to start Paxil at this time it would be neither positive or negative and she can make that decision herself. She asked about Seroquel. I advised the patient to not use Seroquel because of EPS symptoms including acathisia, which can aggravate some of the withdrawal symptoms patient experiences. I discussed that Zyprexa should be beneficial in terms of reducing physiologic stress response relating to withdrawal, help to an adequate extent with sleep and beyond that she needs to engage in behavioral interventions to manage early withdrawal. ANNALEE / ROSE MARIEN: [id number] /
--- NOTE | 2020-03-24 11:28 | CONS ---
CONSULTATION DATE OF SERVICE: 03/23/2020 PURPOSE FOR CONSULTATION: Evaluate for altered mental status and substance abuse issues. INTERVAL HISTORY: Patient has been doing fair. She has been noted by staff to be gradually showing clearing in her thoughts. She was quite disorganized and unable to pull her thoughts together when I saw her yesterday. Today, she is doing better in that regard. Staff had noted that she seems to be calmer and a little bit more connected to her current situation. It is noteworthy that when I talked to her today there were essentially "2 phases" to our discussion. In the 1st part of the discussion when I saw her, she became very intense and said she needed to be discharged "today." She insisted that she had been talking to her mother and that her mother supported her coming home. I discussed with the patient that on the previous day, her mother was indicating that she needed to go directly to the substance use counseling because of the severity of her condition. The patient was very distressed about this idea. It is noteworthy that toward the end of that conversation, the patient seemed to change quite dramatically in her demeanor. She began asking questions about what she understood that she had read the use of benzodiazepines and Fioricet can have significant negative affects on memory and function. She said that she believed when she was taking those medications together her thoughts would become very disorganized and she would essentially lose awareness of what she was doing. She asked some very pointed questions about this issue and also about withdrawal. During the 2nd phase of the interview she sat up on the side of the bed. She was appropriately conversant and expressed much concern about what she had been through in her use of these medications. She was able to describe awareness of the dangers of her opioid pain medications, her barbiturates and her benzodiazepines. She talked about awareness that she needed to get away from all of those medications. By the end of the discussion, she had a fairly pleasant calm manner and was not making any push towards the discharge. I talked with her about making contact with the patient's mother to finalize discharge planning. She was in agreement with that. ASSESSMENT: The patient will continue in the hospitalization. She does show some mood lability. Her thoughts are clearing. She has significant substance use issues and will likely be dealing with significant withdrawal problems over the next several weeks. I will contact the patient's mother as part of discharge planning. MMODL / IJN: [id number] /
[2020-03-24] MEDS ORDERED: OLANZapine 5 MG TAB PO SCH (16:00)
--- NOTE | 2020-04-01 22:38 | P.PN ---
Subjective Progress Note Date: 03/23/20 Principal diagnosis: Tylenol overdose Patient is a 35-year-old female with a known history of asthma, seizure disorder, GERD, hypothyroidism, Crohn's disease, diverticulosis, IBS, carpal tunnel syndrome, chronic back pain and migraine headaches and other multiple medical problems including anxiety/depression/bipolar and PTSD and currently everyday smoker presents to ER with concern for Tylenol overdose. Patient was brought to the hospital by EMS due to altered mental status. Patient was apparently found with altered mentation and empty bottles of Percocet and Fioricet was noted at bedside. Patient states that she did take more pills than usual. Patient is confused and currently poor historian. CT head showed no acute intracranial process EKG showed normal sinus rhythm Laboratory data reviewed showed WBC 17.8, hemoglobin 10.1, platelets 629 Neutrophil 14.0 Sodium 133, potassium 4.2, chloride 104, bicarb is 21, BUN 18 creatinine 0.81 ABG showed pH of 7.35 and PCO2 38 Lactic acid 2.3 Ammonia 15 and CPK 139 Acetaminophen level 84.1 UDS is positive for oxycodone barbiturates tricyclic antidepressants and benzodiazepines Acetone negative Alcohol is less than 10 In the ED blood pressure is 118/83, afebrile, heart rate 92 and pulse ox 100% on room air. 03/22/2020 Patient is currently more awake today. No complaints of chest pain or shortness of breath. Patient's feels very anxious. Wants to go home. Psychiatry was consulted and is evaluating for possible psychiatry was consulted for evaluation. Otherwise Tylenol came down to less than 10 and liver enzymes are not elevated. No fever no chills. 03/23/2020 Patient is currently more awake and oriented. Denied any complaints of chest pain or shortness of. Still feels anxious. Was started on Zyprexa as per psychiatry recommendations. Otherwise patient is tolerating oral diet. Anticipate discharge once cleared by psychiatry. Continue on bedside sitter. Patient has been afebrile. No headache or dizziness or lightheadedness. No abdominal pain or diarrhea. Current medications reviewed. Objective - Vital Signs Vital signs: Vital Signs Temp 97.9 F 03/23/20 12:00 Pulse 79 03/23/20 14:00 Resp 18 03/23/20 14:00 BP 138/94 03/23/20 12:00 Pulse Ox 98 03/23/20 12:00 Intake & Output 03/22/20 03/23/20 03/23/20 18:59 06:59 18:59 Intake Total 1340 800 540 Output Total 750 475 500 Balance 590 325 40 Weight 93 kg Intake: Intake, IV Titration 600 750 Amount Sodium Chloride 0.9% 1, 600 750 000 ml @ 75 mls/hr IV . [id number] [facility] Rx#:[id number] Oral 740 50 540 Output: Urine 750 475 500 Uretheral ([place]) 400 Other: Voiding Method Indwelling Catheter Indwelling Catheter # Voids 1 - Exam PHYSICAL EXAMINATION: Patient is lying in the bed comfortably, no acute distress, awake alert and oriented. anxious... HEENT: Normocephalic. Neck is supple. Pupils reactive. Nostrils clear. Oral cavity is moist. Ears reveal no drainage. Neck reveals no JVD, carotid bruits, or thyromegaly. CHEST EXAMINATION: Trachea is central. Symmetrical expansion. Lung oden clear to auscultation and percussion. CARDIAC: Normal S1, S2 with no gallops. No murmurs ABDOMEN: Soft. Bowel sounds normal. No organomegaly. No abdominal bruits. Extremities: reveal no edema. No clubbing or cyanosis Neurologically awake, alert, oriented x3 with well-coordinated movements. No focal deficits noted Skin: No rash or skin lesions. Psychiatric: nonCoperative. Musculoskeletal: No joint swelling or deformity. Normal range of motion. - Labs CBC & Chem 7: 03/22/20 07:43 03/22/20 07:43 Assessment and Plan Assessment: Acute acetaminophen overdose on admission. s/p N-acetyl Altered mental status secondary to above Leukocytosis. Rule out infection. UA and chest x-ray was ordered. Fibromyalgia Asthma stable GERD History of seizure disorder Hypothyroidism Crohn's disease, diverticulosis and IBS Chronic back pain Migraine headaches Anxiety/depression/bipolar disorder and PTSD Currently everyday smoker DVT prophylaxis with heparin subcu Plan: Patient will be continued on IV hydration. Was started on N-acetylcysteine and follow-up liver enzymes and acetaminophen level- improved. Psychiatry is following.. Patient will be continued on home medications including antiepileptic medications and levothyroxine. Avoid narcotic pain medications and follow-up closely. Further recommendations based on the clinical course. Prognosis guarded at this time. Time with Patient: Greater than 30
--- NOTE | 2020-04-01 22:40 | P.DS ---
Providers Date of admission: 03/21/20 14:14 Expected date of discharge: 03/24/20 Attending physician: Sunitha Whitaker Consults: 03/21/20 14:14 Consult Physician Routine Consulting Provider: Mina Estes Consult Reason/Comments: Acetaminophen overdose Do you want consulting provider notified?: Yes Primary care physician: [facility] Hospital Course: Discharge diagnosis Acute acetaminophen overdose on admission. s/p N-acetyl Altered mental status secondary to above. possible tocic encephalopathy. improved. Leukocytosis. Rule out infection. UA and chest x-ray was ordered. Fibromyalgia Asthma stable GERD History of seizure disorder Hypothyroidism Crohn's disease, diverticulosis and IBS Chronic back pain Migraine headaches Anxiety/depression/bipolar disorder and PTSD Currently everyday smoker DVT prophylaxis with heparin subcu Hospital course Patient is a 35-year-old female with a known history of asthma, seizure d isorder, GERD, hypothyroidism, Crohn's disease, diverticulosis, IBS, carpal tunnel syndrome, chronic back pain and migraine headaches and other multiple medical problems including anxiety/depression/bipolar and PTSD and currently everyday smoker presents to ER with concern for Tylenol overdose. Patient was brought to the hospital by EMS due to altered mental status. Patient was apparently found with altered mentation and empty bottles of Percocet and Fioricet was noted at bedside. Patient states that she did take more pills than usual. Patient is confused and currently poor historian. CT head showed no acute intracranial process EKG showed normal sinus rhythm Laboratory data reviewed showed WBC 17.8, hemoglobin 10.1, platelets 629 Neutrophil 14.0 Sodium 133, potassium 4.2, chloride 104, bicarb is 21, BUN 18 creatinine 0.81 ABG showed pH of 7.35 and PCO2 38 Lactic acid 2.3 Ammonia 15 and CPK 139 Acetaminophen level 84.1 UDS is positive for oxycodone barbiturates tricyclic antidepressants and benzodiazepines Acetone negative Alcohol is less than 10 In the ED blood pressure is 118/83, afebrile, heart rate 92 and pulse ox 100% on room air. 03/22/2020 Patient is currently more awake today. No complaints of chest pain or shortness of breath. Patient's feels very anxious. Wants to go home. Psychiatry was consulted and is evaluating for possible psychiatry was consulted for evaluation. Otherwise Tylenol came down to less than 10 and liver enzymes are not elevated. No fever no chills. 03/23/2020 Patient is currently more awake and oriented. Denied any complaints of chest pain or shortness of. Still feels anxious. Was started on Zyprexa as per psychiatry recommendations. Otherwise patient is tolerating oral diet. Anticipate discharge once cleared by psychiatry. Continue on bedside sitter. Patient has been afebrile. No headache or dizziness or lightheadedness. No abdominal pain or diarrhea. 03/24/2020 Patient is currently resting in the bed. Anxious to be discharged home. Patient was started on Zyprexa and patient appears to be less anxious today. Does not want to wait until psychiatric clearance. Patient left AMA. Discharge vitals reviewed. Patient Condition at Discharge: Serious Plan - Discharge Summary New Discharge Prescriptions: Continue Beclomethasone Dipropionate [Qvar 80 mcg] 2 puff INHALATION RT-DAILY Montelukast [Singulair] 10 mg PO DAILY Levothyroxine Sodium [Synthroid] 137 mcg PO DAILY Balsalazide Disodium 2,250 mg PO TID Albuterol Inhaler [Ventolin Hfa Inhaler] 2 puff INHALATION RT-QID #1 inhaler Divalproex Sodium [Divalproex Sodium ER] 2,000 mg PO BID Ondansetron [Zofran] 8 mg PO Q8HR PRN PRN Reason: Nausea Famotidine [Pepcid] 20 mg PO DAILY Hydrocortisone Cream [Hydrocortisone 2.5% Cream] 1 applic TOPICAL BID Lidocaine Patch 4% 1 patch TOPICAL DAILY Pantoprazole Sodium [Protonix] 40 mg PO DAILY Lacosamide [Vimpat] 50 mg PO BID #60 tablet Discontinued predniSONE [Deltasone] See Taper PO DAILY No Action QUEtiapine [SEROquel] 500 mg PO HS Butalbital/Aspirin/Caffeine [Jutppkjssx-OQW-Pcwviqmf Cap 50-325-40] 1 cap PO BID Lisinopril-Hctz 20-25 mg [Zestoretic 20-25] 2 tab PO DAILY oxyCODONE-APAP 10-325MG [Percocet 10-325 mg] 1 tab PO TID QUEtiapine [SEROquel] 100 mg PO BID@0800,1200 Simvastatin [Zocor] 20 mg PO HS Phentermine HCl [Adipex-P] 37.5 mg PO DAILY PARoxetine HCL 40 mg PO DAILY LORazepam [Ativan] 0.5 mg PO BID Discharge Medication List QUEtiapine [SEROquel] 500 mg PO HS 04/22/17 [History] Beclomethasone Dipropionate [Qvar 80 mcg] 2 puff INHALATION RT-DAILY 02/07/18 [History] Levothyroxine Sodium [Synthroid] 137 mcg PO DAILY 08/07/18 [History] Montelukast [Singulair] 10 mg PO DAILY 08/07/18 [History] Balsalazide Disodium 2,250 mg PO TID 11/16/19 [History] Butalbital/Aspirin/Caffeine [Putrtkwlgw-TKN-Jyeylogh Cap 50-325-40] 1 cap PO BID 11/16/19 [History] Lisinopril-Hctz 20-25 mg [Zestoretic 20-25] 2 tab PO DAILY 11/16/19 [History] oxyCODONE-APAP 10-325MG [Percocet 10-325 mg] 1 tab PO TID 11/16/19 [History] Albuterol Inhaler [Ventolin Hfa Inhaler] 2 puff INHALATION RT-QID #1 inhaler 11/19/19 [Rx] Divalproex Sodium [Divalproex Sodium ER] 2,000 mg PO BID 11/19/19 [History] Famotidine [Pepcid] 20 mg PO DAILY 03/06/20 [History] Hydrocortisone Cream [Hydrocortisone 2.5% Cream] 1 applic TOPICAL BID 03/06/20 [History] Lidocaine Patch 4% 1 patch TOPICAL DAILY 03/06/20 [History] Ondansetron [Zofran] 8 mg PO Q8HR PRN 03/06/20 [History] PARoxetine HCL 40 mg PO DAILY 03/06/20 [History] Pantoprazole Sodium [Protonix] 40 mg PO DAILY 03/06/20 [History] Phentermine HCl [Adipex-P] 37.5 mg PO DAILY 03/06/20 [History] QUEtiapine [SEROquel] 100 mg PO BID@0800,1200 03/06/20 [History] Simvastatin [Zocor] 20 mg PO HS 03/06/20 [History] Lacosamide [Vimpat] 50 mg PO BID #60 tablet 12/03/20 [Rx] LORazepam [Ativan] 0.5 mg PO BID 03/22/20 [History] Follow up Appointment(s)/Referral(s): Nonstaff,Physician [REFERRING] - 1-2 days Discharge Disposition: Left Against Medical Advice
== END 2020-03-24 10:51 | disposition left against medical advice (07) ==
LOC: EC 12:23 → 3SCARD 14:14 → INTOOBSV 14:14 → UNDODISIN 03-24 10:51
PROVIDERS: ADMIT Internal Medicine; ATTEND Internal Medicine
DX: T39.1X1A Poisoning by 4-Aminophenol derivatives, accidental (unintentional), initial encounter (principal); R41.82 Altered mental status, unspecified; Z53.29 Procedure and treatment not carried out because of patient's decision for other reasons; D72.829 Elevated white blood cell count, unspecified; M79.7 Fibromyalgia; J45.909 Unspecified asthma, uncomplicated; K21.9 Gastro-esophageal reflux disease without esophagitis; G40.909 Epilepsy, unspecified, not intractable, without status epilepticus; E03.9 Hypothyroidism, unspecified; K50.90 Crohn's disease, unspecified, without complications; K57.90 Diverticulosis of intestine, part unspecified, without perforation or abscess without bleeding; G89.29 Other chronic pain; M54.9 Dorsalgia, unspecified; G43.909 Migraine, unspecified, not intractable, without status migrainosus; F41.9 Anxiety disorder, unspecified; F31.9 Bipolar disorder, unspecified; F43.10 Post-traumatic stress disorder, unspecified; F17.200 Nicotine dependence, unspecified, uncomplicated; G56.00 Carpal tunnel syndrome, unspecified upper limb; E66.9 Obesity, unspecified; Z79.899 Other long term (current) drug therapy; Z79.890 Hormone replacement therapy; Z79.891 Long term (current) use of opiate analgesic; Z79.52 Long term (current) use of systemic steroids; Z88.8 Allergy status to other drugs, medicaments and biological substances; Z88.1 Allergy status to other antibiotic agents; Z88.6 Allergy status to analgesic agent; Z88.5 Allergy status to narcotic agent; Z88.2 Allergy status to sulfonamides; Z86.2 Personal history of diseases of the blood and blood-forming organs and certain disorders involving the immune mechanism; Z86.69 Personal history of other diseases of the nervous system and sense organs; Z90.89 Acquired absence of other organs; Z90.49 Acquired absence of other specified parts of digestive tract; Z98.890 Other specified postprocedural states; Z91.89 Other specified personal risk factors, not elsewhere classified; Z68.31 Body mass index [BMI] 31.0-31.9, adult; Z83.3 Family history of diabetes mellitus; Z83.438 Family history of other disorder of lipoprotein metabolism and other lipidemia; Z80.8 Family history of malignant neoplasm of other organs or systems; Z82.3 Family history of stroke; Z82.49 Family history of ischemic heart disease and other diseases of the circulatory system; Z82.61 Family history of arthritis; Z83.49 Family history of other endocrine, nutritional and metabolic diseases; Z84.89 Family history of other specified conditions; Y92.9 Unspecified place or not applicable
CPT/HCPCS: 96376 ×4; 96361 ×2; 96365 ×2; 96366 ×3; 96372; 96375; 93005 ×4; 99291; 36415; 94640; 94760; 80164; 80053 ×2; 82140; 82150; 82550; 82803; 82009; 83605; 83690; 85025 ×2; 85610 ×2; 85730; 81003; 81025; 80306; 83520; 71045; 70450; G0378 ×4; G0480 ×3; J1644; J2405 ×2; J0132; C9113 ×4; 80320; 80329

== ENCOUNTER 2020-05-29 10:40 | Inpatient (IN) | payer OTHER ==
[2020-05-29] MEDS ORDERED: SODIUM CHLORIDE 0.9% 1,000 ML IV STA (11:12)
[2020-05-29] MEDS ORDERED: LORazepam 2 MG/ML INJ IV STA (11:12)
--- NOTE | 2020-05-29 11:16 | ED ---
General Adult HPI - General Chief complaint: Seizure Stated complaint: Seizure Time Seen by Provider: 05/29/20 10:59 Source: patient, RN notes reviewed Mode of arrival: EMS Limitations: altered mental status - History of Present Illness Initial comments: 35-year-old female with a past medical history of asthma, fibromyalgia, GERD, seizure disorder, chronic pain with significant psychiatric history presents for seizure. According to EMS patient had 2 seizures earlier today. Patient does have a history of seizure disorder. Patient takes Vimpat and reports she has been taking this. Patient mildly postictal. Patient has no other complaints at this time including shortness of breath, chest pain, abdominal pain, nausea or vomiting, headache, or visual changes. - Related Data Home Medications Medication Instructions Recorded Confirmed QUEtiapine [SEROquel] 500 mg PO HS 04/22/17 03/21/20 Beclomethasone Dipropionate [Qvar 2 puff INHALATION RT-DAILY 02/07/18 03/21/20 80 mcg] Levothyroxine Sodium [Synthroid] 137 mcg PO DAILY 08/07/18 03/21/20 Montelukast [Singulair] 10 mg PO DAILY 08/07/18 03/21/20 Balsalazide Disodium 2,250 mg PO TID 11/16/19 03/21/20 Butalbital/Aspirin/Caffeine 1 cap PO BID 11/16/19 03/21/20 [Tutntiiksp-ZBM-Nbblmbyn Cap 50-325-40] Lisinopril-Hctz 20-25 mg 2 tab PO DAILY 11/16/19 03/21/20 [Zestoretic 20-25] oxyCODONE-APAP 10-325MG [Percocet 1 tab PO TID 11/16/19 03/21/20 10-325 mg] Divalproex Sodium [Divalproex 2,000 mg PO BID 11/19/19 03/21/20 Sodium ER] Famotidine [Pepcid] 20 mg PO DAILY 03/06/20 03/21/20 Hydrocortisone Cream 1 applic TOPICAL BID 03/06/20 03/21/20 [Hydrocortisone 2.5% Cream] Lidocaine Patch 4% 1 patch TOPICAL DAILY 03/06/20 03/21/20 Ondansetron [Zofran] 8 mg PO Q8HR PRN 03/06/20 03/21/20 PARoxetine HCL 40 mg PO DAILY 03/06/20 03/21/20 Pantoprazole Sodium [Protonix] 40 mg PO DAILY 03/06/20 03/21/20 Phentermine HCl [Adipex-P] 37.5 mg PO DAILY 03/06/20 03/21/20 QUEtiapine [SEROquel] 100 mg PO BID@0800,1200 03/06/20 03/21/20 Simvastatin [Zocor] 20 mg PO HS 03/06/20 03/21/20 LORazepam [Ativan] 0.5 mg PO BID 03/22/20 03/22/20 Previous Rx's Medication Instructions Recorded Albuterol Inhaler [Ventolin Hfa 2 puff INHALATION RT-QID #1 inhaler 11/19/19 Inhaler] Lacosamide [Vimpat] 50 mg PO BID #60 tablet 03/07/20 Allergies Allergy/AdvReac Type Severity Reaction Status Date / Time dicyclomine [From Bentyl] Allergy Severe Hallucinati Verified 03/21/20 14:25 ons granisetron HCl [From Kytril] Allergy Severe Anaphylaxis Verified 03/21/20 14:25 azithromycin Allergy Rash/Hives Verified 03/21/20 14:25 baclofen Allergy Rash/Hives Verified 03/21/20 14:25 butorphanol [From Stadol] Allergy Rash/Hives Verified 03/21/20 14:25 butorphanol tartrate Allergy Rash/Hives Verified 03/21/20 14:25 [From Stadol] Cephalosporins Allergy Rash/Hives Verified 03/21/20 14:25 cyclobenzaprine Allergy Unknown Verified 03/21/20 14:25 [From Flexeril] dicloxacillin Allergy Rash/Hives Verified 03/21/20 14:25 granisetron [From Kytril] Allergy Anaphylaxis Verified 03/21/20 14:25 ketorolac Allergy Rash/Hives Verified 03/21/20 14:25 ketorolac tromethamine Allergy Rash/Hives Verified 03/21/20 14:25 [From Toradol] meperidine Allergy Unknown Verified 03/21/20 14:25 meperidine HCl [From Demerol] Allergy Swelling Verified 03/21/20 14:25 morphine Allergy Unknown Verified 03/21/20 14:25 pregabalin [From Lyrica] Allergy Unknown Verified 03/21/20 14:25 risperidone [From Risperdal] Allergy Dyspnea Verified 03/21/20 14:25 sulfamethoxazole Allergy Rash/Hives Verified 03/21/20 14:25 [From Bactrim] trimethoprim [From Bactrim] Allergy Rash/Hives Verified 03/21/20 14:25 codeine AdvReac Vomiting & Verified 03/21/20 14:25 Headache methylprednisolone AdvReac Vomiting & Verified 03/21/20 14:25 [From Medrol] Headache Review of Systems ROS Statement: Those systems with pertinent positive or pertinent negative responses have been documented in the HPI. ROS Other: All systems not noted in ROS Statement are negative. Past Medical History Past Medical History: Asthma, Fibromyalgia, GERD/Reflux, Neurologic Disorder, Seizure Disorder, Thyroid Disorder Additional Past Medical History / Comment(s): crohns disease, diverticulosis, ibs, carpal tunnel, anemia, chronic back pain , migraines, pinched nerves, chronic colitis. History of Any Multi-Drug Resistant Organisms: None Reported Past Surgical History: Adenoidectomy, Appendectomy, Cholecystectomy, Orthopedic Surgery, Tonsillectomy Additional Past Surgical History / Comment(s): EGD/colonoscopy, right ankle surgery Past Anesthesia/Blood Transfusion Reactions: No Reported Reaction Additional Past Anesthesia/Blood Transfusion Reaction / Comment(s): hallucinations Past Psychological History: Anxiety, Bipolar, Depression, PTSD Smoking Status: Current every day smoker Past Alcohol Use History: None Reported Past Drug Use History: None Reported - Past Family History Father Family Medical History: Diabetes Mellitus, Hyperlipidemia Mother Family Medical History: Cancer, CVA/TIA, Deep Vein Thrombosis (DVT), Osteoarthritis (OA), Thyroid Disorder Additional Family Medical History / Comment(s): Extensive tattoos throughout body General Exam Limitations: altered mental status General appearance: alert, in no apparent distress Head exam: Present: atraumatic, normocephalic, normal inspection Eye exam: Present: normal appearance, PERRL, EOMI. Absent: scleral icterus, conjunctival injection ENT exam: Present: normal exam, mucous membranes moist Neck exam: Present: normal inspection, full ROM. Absent: tenderness Respiratory exam: Present: normal lung sounds bilaterally. Absent: respiratory distress, wheezes Cardiovascular Exam: Present: regular rate, normal rhythm, normal heart sounds GI/Abdominal exam: Present: soft, normal bowel sounds. Absent: distended, tenderness Neurological exam: Present: alert, oriented X3 Course Vital Signs 05/29/20 05/29/20 05/29/20 10:49 11:47 13:34 Temperature 98.0 F 99.1 F Pulse Rate 120 H 115 H 107 H Respiratory 18 20 22 Rate Blood Pressure 147/107 132/91 138/93 O2 Sat by Pulse 98 100 100 Oximetry 05/29/20 14:59 Temperature Pulse Rate 104 H Respiratory 18 Rate Blood Pressure 154/106 O2 Sat by Pulse 99 Oximetry EKG Findings - EKG Comments: EKG Findings:: Sinus tachycardia, ventricular rate 106, NM interval 148, QTC 486 Medical Decision Making - Medical Decision Making Patient initially tachycardic. This did improve. Initially slurring words and not answering questions. Laboratory evaluation was initiated. CBC unremarkable. Patient does appear to have chronic thrombocytosis. CMP unremark able. Salicylates and acetaminophen and alcohol are negative. Patient was given Ativan as she apparently had her second seizure while in the that, nothing was given. Patient was reevaluated , did have some improvement in her post ictal state as her speech is more clear however she is not at baseline and continues to not answer questions. At this point we did initiate a CAT scan Which showed no acute hemorrhage or mass effect. Low-lying cerebellar tonsils noted. Patient was catheterized for a urine drug screen which showed oxycodone, antidepressants, benzodiazepines, and marijuana. Patient is prescribed Percocet, Ativan. Patient monitored for over 4 hours in the emergency room, still not back to baseline. She also has a history of several drug overdoses, Tylenol and salicylates negative. Discussed this with mother who states she normally quickly comes out of postictal state except for one time when she had several seizures. Dr. Ramsey evaluated patient, recommending admission for further monitoring. Case discussed with Dr. Lopez, does accept admission, does not require conchita rology consultation at this time. - Lab Data Result diagrams: 05/29/20 11:20 05/29/20 11:20 Lab Results 05/29/20 05/29/20 05/29/20 Range/Units 11:20 11:20 11:20 WBC 11.4 H (3.8-10.6) k/uL RBC 4.30 (3.80-5.40) m/uL Hgb 11.0 L (11.4-16.0) gm/dL Hct 35.3 (34.0-46.0) % MCV 82.2 (80.0-100.0) fL MCH 25.5 (25.0-35.0) pg MCHC 31.0 (31.0-37.0) g/dL RDW 17.1 H (11.5-15.5) % Plt Count 623 H (150-450) k/uL MPV 7.4 Neutrophils % 84 % Lymphocytes % 12 % Monocytes % 3 % Eosinophils % 0 % Basophils % 0 % Neutrophils # 9.6 H (1.3-7.7) k/uL Lymphocytes # 1.3 (1.0-4.8) k/uL Monocytes # 0.4 (0-1.0) k/uL Eosinophils # 0.0 (0-0.7) k/uL Basophils # 0.0 (0-0.2) k/uL Hypochromasia Moderate Anisocytosis Slight Sodium 139 (137-145) mmol/L Potassium 4.7 (3.5-5.1) mmol/L Chloride 108 H (98-107) mmol/L Carbon Dioxide 12 L (22-30) mmol/L Anion Gap 19 mmol/L BUN 7 (7-17) mg/dL Creatinine 0.74 (0.52-1.04) mg/dL Est GFR (CKD-EPI)AfAm >90 (>60 ml/min/1.73 sqM) Est GFR (CKD-EPI)NonAf >90 (>60 ml/min/1.73 sqM) Glucose 157 H (74-99) mg/dL Calcium 9.4 (8.4-10.2) mg/dL Total Bilirubin 0.3 (0.2-1.3) mg/dL AST 19 (14-36) U/L ALT 25 (4-34) U/L Alkaline Phosphatase 111 (38-126) U/L Total Protein 7.3 (6.3-8.2) g/dL Albumin 4.0 (3.5-5.0) g/dL Urine Color Light Yellow Urine Appearance Clear (Clear) Urine pH 7.0 (5.0-8.0) Ur Specific [place] 1.021 (1.001-1.035) Urine Protein Trace H (Negative) Urine Glucose (UA) Negative (Negative) Urine Ketones 1+ H (Negative) Urine Blood Negative (Negative) Urine Nitrite Negative (Negative) Urine Bilirubin Negative (Negative) Urine Urobilinogen <2.0 (<2.0) mg/dL Ur Leukocyte Esterase Negative (Negative) Urine HCG, Qual (Not Detectd) Salicylates <1.0 mg/dL Urine Opiates Screen Not Detected (NotDetected) Ur Oxycodone Screen Detected H (NotDetected) Urine Methadone Screen Not Detected (NotDetected) Ur Propoxyphene Screen Not Detected (NotDetected) Acetaminophen <10.0 ug/mL Ur Barbiturates Screen Not Detected (NotDetected) U Tricyclic Antidepress Detected H (NotDetected) Ur Phencyclidine Scrn Not Detected (NotDetected) Ur Amphetamines Screen Not Detected (NotDetected) U Methamphetamines Scrn Not Detected (NotDetected) U Benzodiazepines Scrn Detected H (NotDetected) Urine Cocaine Screen Not Detected (NotDetected) U Marijuana (THC) Screen Detected H (NotDetected) Serum Alcohol <10 mg/dL 05/29/20 Range/Units 11:20 WBC (3.8-10.6) k/uL RBC (3.80-5.40) m/uL Hgb (11.4-16.0) gm/dL Hct (34.0-46.0) % MCV (80.0-100.0) fL MCH (25.0-35.0) pg MCHC (31.0-37.0) g/dL RDW (11.5-15.5) % Plt Count (150-450) k/uL MPV Neutrophils % % Lymphocytes % % Monocytes % % Eosinophils % % Basophils % % Neutrophils # (1.3-7.7) k/uL Lymphocytes # (1.0-4.8) k/uL Monocytes # (0-1.0) k/uL Eosinophils # (0-0.7) k/uL Basophils # (0-0.2) k/uL Hypochromasia Anisocytosis Sodium (137-145) mmol/L Potassium (3.5-5.1) mmol/L Chloride (98-107) mmol/L Carbon Dioxide (22-30) mmol/L Anion Gap mmol/L BUN (7-17) mg/dL Creatinine (0.52-1.04) mg/dL Est GFR (CKD-EPI)AfAm (>60 ml/min/1.73 sqM) Est GFR (CKD-EPI)NonAf (>60 ml/min/1.73 sqM) Glucose (74-99) mg/dL Calcium (8.4-10.2) mg/dL Total Bilirubin (0.2-1.3) mg/dL AST (14-36) U/L ALT (4-34) U/L Alkaline Phosphatase (38-126) U/L Total Protein (6.3-8.2) g/dL Albumin (3.5-5.0) g/dL Urine Color Urine Appearance (Clear) Urine pH (5.0-8.0) Ur Specific [place] (1.001-1.035) Urine Protein (Negative) Urine Glucose (UA) (Negative) Urine Ketones (Negative) Urine Blood (Negative) Urine Nitrite (Negative) Urine Bilirubin (Negative) Urine Urobilinogen (<2.0) mg/dL Ur Leukocyte Esterase (Negative) Urine HCG, Qual Not Detected (Not Detectd) Salicylates mg/dL Urine Opiates Screen (NotDetected) Ur Oxycodone Screen (NotDetected) Urine Methadone Screen (NotDetected) Ur Propoxyphene Screen (NotDetected) Acetaminophen ug/mL Ur Barbiturates Screen (NotDetected) U Tricyclic Antidepress (NotDetected) Ur Phencyclidine Scrn (NotDetected) Ur Amphetamines Screen (NotDetected) U Methamphetamines Scrn (NotDetected) U Benzodiazepines Scrn (NotDetected) Urine Cocaine Screen (NotDetected) U Marijuana (THC) Screen (NotDetected) Serum Alcohol mg/dL Disposition Clinical Impression: Seizure, Altered mental state Disposition: ADMITTED IP TO THIS HOSP Is patient prescribed a controlled substance at d/c from ED?: No Referrals: Joan Meeks MD [Primary Care Provider] - 1-2 days Time of Disposition: 13:09
[2020-05-29] MEDS ORDERED: METOCLOPRAMIDE 5 MG/ML 2 ML VIAL IVP STA ×2 (11:23→16:44)
[2020-05-29 11:59] LABS: Anisocytosis Slight; Basophils % (A) 0 %; Eosinophils % (A) 0 %; HCT 35.3 % (34.0-46.0); Hypochromasia Moderate; Lymphocytes # (A) 1.3 k/uL (1.0-4.8); Lymphocytes % (A) 12 %; MCH 25.5 pg (25.0-35.0); MCV 82.2 fL (80.0-100.0); Mean Platelet Volume 7.4; Monocytes # (A) 0.4 k/uL (0-1.0); Monocytes % (A) 3 %; Neutrophils # (A) 9.6 k/uL (1.3-7.7); Neutrophils % (A) 84 %; Platelet Count 623 k/uL (150-450); RDW 17.1 % (11.5-15.5); WBC 11.4 k/uL (3.8-10.6)
[2020-05-29 12:09] LABS: AST 19 U/L (14-36); Acetaminophen <10.0 ug/mL; African American GFR (CKD) >90 (>60 ml/min/1.73 sqM); Alcohol <10 mg/dL; Alkaline Phosphatase 111 U/L (38-126); Anion Gap 19 mmol/L; Blood Urea Nitrogen 7 mg/dL (7-17); Calcium 9.4 mg/dL (8.4-10.2); Carbon Dioxide 12 mmol/L (22-30); Chloride 108 mmol/L (98-107); Glucose 157 mg/dL (74-99); Non-African American GFR(CKD) >90 (>60 ml/min/1.73 sqM); Potassium 4.7 mmol/L (3.5-5.1); Salicylate <1.0 mg/dL; Sodium 139 mmol/L (137-145); Total Bilirubin 0.3 mg/dL (0.2-1.3); Total Protein 7.3 g/dL (6.3-8.2)
[2020-05-29 12:18] LABS: ALT 25 U/L (4-34)
--- NOTE | 2020-05-29 14:26 | CT ---
EXAMINATION TYPE: CT brain wo con DATE OF EXAM: 05/29/2020 COMPARISON: 03/21/2020 HISTORY: patient complains "body hurts". head CT DLP: 1098.4 mGycm. Automated Exposure Control for Dose Reduction was Utilized. TECHNIQUE: CT scan of the head is performed without contrast. FINDINGS: Craniocervical junction demonstrates low-lying cerebellar tonsils. Ventricular system is mi dline. No midline shift or mass effect. No acute intracranial hemorrhage. Stable basal ganglia calcif ications. Sinuses are clear. Calvarium intact. Orbits symmetric. IMPRESSION: 1. No acute hemorrhage or mass effect. 2. Low-lying cerebellar tonsils.
[2020-05-29 14:47] LABS: Appearance,Urine Clear (Clear); Bilirubin,Urine Negative (Negative); Blood,Urine Negative (Negative); Color,Urine Light Yellow; Glucose,Urine (UA) Negative (Negative); Ketones,Urine 1+ (Negative); Leukocyte Esterase,Urine Negative (Negative); Nitrite,Urine Negative (Negative); Protein,Urine Trace (Negative); Specific Gravity,Urine 1.021 (1.001-1.035); Urobilinogen,Urine <2.0 mg/dL (<2.0)
[2020-05-29 14:55] LABS: Amphetamine Screen,Urine Not Detected (NotDetected); Barbiturate Screen,Urine Not Detected (NotDetected); Benzodiazepines Screen,Urine Detected (NotDetected); Cocaine Screen,Urine Not Detected (NotDetected); Methadone Screen, Urine Not Detected (NotDetected); Opiate Screen,Urine Not Detected (NotDetected); Oxycodone Screen, Urine Detected (NotDetected); Phencyclidine Screen,Urine Not Detected (NotDetected); Tricyclic Antidepressant,Urine Detected (NotDetected); Urn Cannabinoid Scrn Detected (NotDetected)
[2020-05-29] MEDS ORDERED: NALOXONE 0.4 MG/ML 1 ML VIAL IV PRN (15:28)
[2020-05-29] MEDS ORDERED: LORazepam 2 MG/ML INJ IV PRN (15:29)
[2020-05-29] MEDS: SODIUM CHLORIDE 0.9% 1,000 ML IV SCH (15:51)
--- NOTE | 2020-05-29 17:32 | P.HPIM ---
History of Present Illness H&P Date: 05/29/20 Chief Complaint: Seizure This is a 35-year-old female with very complex past medical history noted below significant for underlying seizure disorder who was brought in to the ER by EMS after having a seizure at home. Patient was awake and alert in the ER but appears very uncooperative and did not answer any of my questions. According to nursing staff, patient had a witnessed seizure by EMS. She was postictal on arrival. Computed tomography scan of the head showed no acute intracranial findings. Patient appeared nauseous and vomited once in the ER. Patient did not answer any of my questions in the ER. She was sitting at the site of the bed and appears slightly confused. Review of Systems Review of system: 14 points review of systems were obtained and were negative except to what were mentioned in the HPI. Past Medical History Past Medical History: Asthma, Fibromyalgia, GERD/Reflux, Neurologic Disorder, Seizure Disorder, Thyroid Disorder Additional Past Medical History / Comment(s): crohns disease, diverticulosis, ibs, carpal tunnel, anemia, chronic back pain , migraines, pinched nerves, chronic colitis. History of Any Multi-Drug Resistant Organisms: None Reported Past Surgical History: Adenoidectomy, Appendectomy, Cholecystectomy, Orthopedic Surgery, Tonsillectomy Additional Past Surgical History / Comment(s): EGD/colonoscopy, right ankle surgery Past Anesthesia/Blood Transfusion Reactions: No Reported Reaction Additional Past Anesthesia/Blood Transfusion Reaction / Comment(s): hallucinations Past Psychological History: Anxiety, Bipolar, Depression, PTSD Smoking Status: Current every day smoker Past Alcohol Use History: None Reported Past Drug Use History: None Reported - Past Family History Father Family Medical History: Diabetes Mellitus, Hyperlipidemia Mother Family Medical History: Cancer, CVA/TIA, Deep Vein Thrombosis (DVT), Os teoarthritis (OA), Thyroid Disorder Additional Family Medical History / Comment(s): Extensive tattoos throughout body Medications and Allergies Home Medications Medication Instructions Recorded Confirmed Type QUEtiapine [SEROquel] 500 mg PO HS 04/22/17 05/29/20 History Beclomethasone Dipropionate [Qvar 2 puff INHALATION RT-DAILY 02/07/18 05/29/20 History 80 mcg] Levothyroxine Sodium [Synthroid] 137 mcg PO DAILY 08/07/18 05/29/20 History Montelukast [Singulair] 10 mg PO DAILY 08/07/18 05/29/20 History Balsalazide Disodium 2,250 mg PO TID 11/16/19 05/29/20 History Lisinopril-Hctz 20-25 mg 2 tab PO DAILY 11/16/19 05/29/20 History [Zestoretic 20-25] oxyCODONE-APAP 10-325MG [Percocet 1 tab PO TID 11/16/19 05/29/20 History 10-325 mg] Divalproex Sodium [Divalproex 2,000 mg PO BID 11/19/19 05/29/20 History Sodium ER] Famotidine [Pepcid] 20 mg PO DAILY 03/06/20 05/29/20 History Hydrocortisone Cream 1 applic TOPICAL BID PRN 03/06/20 05/29/20 History [Hydrocortisone 2.5% Cream] Lidocaine Patch 4% 1 patch TOPICAL DAILY PRN 03/06/20 05/29/20 History Ondansetron [Zofran] 8 mg PO Q8HR PRN 03/06/20 05/29/20 History PARoxetine HCL 40 mg PO DAILY 03/06/20 05/29/20 History Phentermine HCl [Adipex-P] 37.5 mg PO DAILY 03/06/20 05/29/20 History QUEtiapine [SEROquel] 100 mg PO BID@0800,1200 03/06/20 05/29/20 History Simvastatin [Zocor] 20 mg PO HS 03/06/20 05/29/20 History LORazepam [Ativan] 0.5 mg PO BID 03/22/20 05/29/20 History Albuterol Inhaler [Ventolin Hfa 2 puff INHALATION RT-QID PRN 05/29/20 05/29/20 History Inhaler] Amitriptyline HCl 25 mg PO HS 05/29/20 05/29/20 History Butalb/Acetaminophen/Caffeine 1 tab PO BID PRN 05/29/20 05/29/20 History [Fioricet 50-325-40] Gabapentin [Neurontin] 1,200 mg PO TID 05/29/20 05/29/20 History Lacosamide [Vimpat] 50 mg PO DIRECTED 05/29/20 05/29/20 History predniSONE 10 mg PO DAILY 05/29/20 05/29/20 History tiZANidine HCL [Zanaflex] 4 - 8 mg PO Q8HR PRN 05/29/20 05/29/20 History Allergies Allergy/AdvReac Type Severity Reaction Status Date / Time dicyclomine [From Bentyl] Allergy Severe Hallucinati Verified 03/21/20 14:25 ons granisetron HCl [From Kytril] Allergy Severe Anaphylaxis Verified 03/21/20 14:25 azithromycin Allergy Rash/Hives Verified 03/21/20 14:25 baclofen Allergy Rash/Hives Verified 03/21/20 14:25 butorphanol [From Stadol] Allergy Rash/Hives Verified 03/21/20 14:25 butorphanol tartrate Allergy Rash/Hives Verified 03/21/20 14:25 [From Stadol] Cephalosporins Allergy Rash/Hives Verified 03/21/20 14:25 cyclobenzaprine Allergy Unknown Verified 03/21/20 14:25 [From Flexeril] dicloxacillin Allergy Rash/Hives Verified 03/21/20 14:25 granisetron [From Kytril] Allergy Anaphylaxis Verified 03/21/20 14:25 ketorolac Allergy Rash/Hives Verified 03/21/20 14:25 ketorolac tromethamine Allergy Rash/Hives Verified 03/21/20 14:25 [From Toradol] meperidine Allergy Unknown Verified 03/21/20 14:25 meperidine HCl [From Demerol] Allergy Swelling Verified 03/21/20 14:25 morphine Allergy Unknown Verified 03/21/20 14:25 pregabalin [From Lyrica] Allergy Unknown Verified 03/21/20 14:25 risperidone [From Risperdal] Allergy Dyspnea Verified 03/21/20 14:25 sulfamethoxazole Allergy Rash/Hives Verified 03/21/20 14:25 [From Bactrim] trimethoprim [From Bactrim] Allergy Rash/Hives Verified 03/21/20 14:25 codeine AdvReac Vomiting & Verified 03/21/20 14:25 Headache methylprednisolone AdvReac Vomiting & Verified 03/21/20 14:25 [From Medrol] Headache Physical Exam Vitals: Vital Signs Temp Pulse Resp BP Pulse Ox 05/29/20 16:01 100.6 F H 65 18 143/93 99 05/29/20 14:59 104 H 18 154/106 99 05/29/20 13:34 99.1 F 107 H 22 138/93 100 05/29/20 11:47 115 H 20 132/91 100 05/29/20 10:49 98.0 F 120 H 18 147/107 98 Intake and Output 05/29/20 05/29/20 05/29/20 06:59 14:59 22:59 Other: Weight 95.708 kg General: The patient is awake and alert, in no distress Eye: there is normal conjunctiva bilaterally. Neck: The neck is supple, there is no JVD. Cardiovascular: Normal S1-S2, no S3-S4, no murmurs. Respiratory: Lungs clear to auscultation bilaterally Gastrointestinal: Abdomen is soft, nontender Musculoskeletal: There is no pedal edema. Neurological:. Speech is normal. Skin: Skin is warm and dry Results CBC & Chem 7: 05/29/20 11:20 05/29/20 11:20 Labs: Abnormal Lab Results - Last 24 Hours (Table) 05/29/20 05/29/20 05/29/20 Range/Units 11:20 11:20 11:20 WBC 11.4 H (3.8-10.6) k/uL Hgb 11.0 L (11.4-16.0) gm/dL RDW 17.1 H (11.5-15.5) % Plt Count 623 H (150-450) k/uL Neutrophils # 9.6 H (1.3-7.7) k/uL Chloride 108 H (98-107) mmol/L Carbon Dioxide 12 L (22-30) mmol/L Glucose 157 H (74-99) mg/dL Urine Protein Trace H (Negative) Urine Ketones 1+ H (Negative) Ur Oxycodone Screen Detected H (NotDetected) U Tricyclic Antidepress Detected H (NotDetected) U Benzodiazepines Scrn Detected H (NotDetected) U Marijuana (THC) Screen Detected H (NotDetected) Assessment and Plan Assessment: 1. Breakthrough seizure, computed tomography scan of the head showed no acute findings. Patient reported compliance with her medication to nursing staff earlier. I will resume her home dose of Vimpat and Depakote. Consult neurology for further evaluation. Continue seizure precautions. Obtain EEG. 2. Chronic pain syndrome 3. Hyperlipidemia 4. Hypothyroidism 5. Underlying ulcerative colitis 6. DVT prophylaxis with subcu heparin Today, I reviewed her medication list and lab work results. Continue home medications. Continue seizure precautions. Awaiting urology evaluation.
[2020-05-29] MEDS ORDERED: AMITRIPTYLINE HCL 25 MG TAB PO SCH (21:00)
[2020-05-29] MEDS: ONDANSETRON 4 MG/2 ML VIAL IVP PRN (21:55)
[2020-05-30] MEDS: ATORVASTATIN 10 MG TAB PO SCH ×2 (04:59→21:39)
[2020-05-30] MEDS: HEPARIN SODIUM,PORCINE 5,000 UNIT/ML 1 ML VIAL SQ SCH ×3 (04:59→21:38)
[2020-05-30] MEDS: DIVALPROEX ER 500 MG TAB.ER.24H PO SCH ×3 (04:59→21:39)
[2020-05-30] MEDS: LACOSAMIDE 50 MG TABLET PO SCH ×3 (05:00→21:39)
[2020-05-30] MEDS: SODIUM CHLORIDE 0.9% 1,000 ML IV SCH ×2 (05:00→20:15)
[2020-05-30] MEDS: BALSALAZIDE DISODIUM 750 MG CAPSULE PO SCH ×4 (05:00→21:39)
[2020-05-30] MEDS: GABAPENTIN 400 MG CAP PO SCH ×2 (05:00→11:11)
[2020-05-30] MEDS: oxyCODONE-APAP 10-325MG 1 EACH TAB PO SCH ×2 (05:00→11:12)
[2020-05-30] MEDS: LEVOTHYROXINE 137 MCG TAB PO SCH (06:22)
[2020-05-30] MEDS: FLUTICASONE 110 MCG INHALER INHALATION SCH ×2 (08:05→21:35)
[2020-05-30] MEDS: ONDANSETRON 4 MG/2 ML VIAL IVP PRN (10:08)
[2020-05-30] MEDS: MONTELUKAST 10 MG TAB PO SCH (11:11)
[2020-05-30] MEDS: predniSONE 10 MG TAB PO SCH (11:12)
[2020-05-30] MEDS: PARoxetine 20 MG TAB PO SCH (11:12)
[2020-05-30] MEDS: LISINOPRIL-HCTZ 20-25 MG 1 EACH TAB PO SCH (11:15)
--- NOTE | 2020-05-30 11:18 | XR ---
EXAMINATION TYPE: XR abdomen acute w cxr DATE OF EXAM: 05/30/2020 COMPARISON: NONE HISTORY: Pain TECHNIQUE: Single view of the chest and 2 views of the abdomen are submitted. FINDINGS: Single view of the chest fails demonstrate evidence for acute pulmonary disease. There is no evidence for pneumoperitoneum. The bowel gas pattern is unremarkable as there is air throughout nondilated small and large bowel. No sizeable air fluid levels.No mass effects are seen. No unusual calcifications. IMPRESSION: 1. Unremarkable study.
[2020-05-30] MEDS ORDERED: oxyCODONE-APAP 10-325MG 1 EACH TAB PO PRN (14:09)
--- NOTE | 2020-05-30 14:13 | P.PN ---
Subjective Progress Note Date: 05/30/20 Patient is still confused today. She vomited twice this morning. She was awake and alert when I saw her but did not answer any of my questions. She was moaning in bed and when I ask her about with bothering her she just say nothing. Asked her if she is having any pain which she denies. She does not have any specific complaints otherwise. Objective - Vital Signs Vital signs: Vital Signs Temp 98.8 F 05/30/20 11:15 Pulse 103 H 05/30/20 11:15 Resp 18 05/30/20 11:15 BP 138/91 05/30/20 11:15 Pulse Ox 98 05/30/20 11:15 Intake & Output 05/29/20 05/30/20 05/30/20 18:59 06:59 18:59 Intake Total 0 0 480 Output Total 1200 Balance 0 -1200 480 Weight 95.708 kg 97 kg Intake: Oral 0 0 480 Output: Urine 1200 Other: Voiding Method Bedpan Bedpan # Voids 1 # Bowel Movements 2 - Exam General: The patient is awake and alert, in no distress Eye: there is normal conjunctiva bilaterally. Neck: The neck is supple, there is no JVD. Cardiovascular: Normal S1-S2, no S3-S4, no murmurs. Respiratory: Lungs clear to auscultation bilaterally Gastrointestinal: Abdomen is soft, nontender Musculoskeletal: There is no pedal edema. Neurological:. Speech is normal. Skin: Skin is warm and dry - Labs CBC & Chem 7: 05/29/20 11:20 05/29/20 11:20 Labs: Abnormal Lab Results - Last 24 Hours (Table) 05/29/20 Range/Units 11:20 Urine Protein Trace H (Negative) Urine Ketones 1+ H (Negative) Ur Oxycodone Screen Detected H (NotDetected) U Tricyclic Antidepress Detected H (NotDetected) U Benzodiazepines Scrn Detected H (NotDetected) U Marijuana (THC) Screen Detected H (NotDetected) Assessment and Plan Assessment: This is a 35-year-old female with a very complex past medical history noted below who presented to the emergency room after she had a seizure episode at home. Patient was evaluated in the ER and admitted to the hospital for further management of her medical problems noted below. 1. Seizure disorder with breakthrough seizure at home., computed tomography scan of the head showed no acute findings. Patient reported compliance with her medication in the ER. I resumed her home dose of Vimpat and Depakote. Consulted neurology for further evaluation. Continue seizure precautions. Obtain EEG. 2. Altered mental status, exact etiology unclear. May be toxic secondary to polypharmacy. Awaiting Vimpat levels. Patient is maintained on high-dose gabapentin which I would titrate down slowly. Metabolic encephalopathy ruled out. Lab work within acceptable range including thyroid function test. No evidence of UTI. Computed tomography scan of the head with no acute findings. May consider psych evaluation if not improving. 2. Chronic pain syndrome 3. Hyperlipidemia 4. Hypothyroidism 5. Underlying ulcerative colitis 6. DVT prophylaxis with subcu heparin Today, I reviewed her medication list and lab work results. Continue home medications. Continue seizure precautions. Awaiting urology evaluation.
--- NOTE | 2020-05-30 14:46 | EEG ---
ELECTROENCEPHALOGRAM REPORT DATE OF SERVICE: 05/30/2020. PREAMBLE: This is a 35-year-old female with a history of seizure disorder. The patient has history of seizures since she was born. EEG FINDINGS: This is a 21 channel routine EEG recording in a patient utilizing 10/20 international system with referential and bipolar montages. The background consists of poorly developed and regulated mixed diffuse moderate to high amplitude delta and theta activity seen in bihemispheric region. Background does not seem to be reactive to eye opening or closing. Photic driving response was not seen. Significant myogenic activity was seen intermittently during this study. No focal or generalized epileptiform activity was seen. IMPRESSION: This is an abnormal EEG due to background slowing of at least moderate degree. This is suggestive of generalized cerebral dysfunction, as can be seen with toxic metabolic encephalopathy, or due to diffuse structural brain abnormality, or related to postictal slowing. No definitive epileptiform activity was seen. MMODL / IJN: [id number] / MTDD
[2020-05-30] MEDS: FAMOTIDINE 20 MG TAB PO SCH (15:09)
[2020-05-30] MEDS ORDERED: GABAPENTIN 300 MG CAP PO SCH (16:00)
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
[2020-05-30 23:58] LABS: Folate, Serum 5.6 ng/mL
[2020-05-31] MEDS: SODIUM CHLORIDE 0.9% 1,000 ML IV SCH (06:59)
[2020-05-31] MEDS: LEVOTHYROXINE 137 MCG TAB PO SCH (06:59)
[2020-05-31] MEDS: HEPARIN SODIUM,PORCINE 5,000 UNIT/ML 1 ML VIAL SQ SCH ×2 (08:36→19:46)
[2020-05-31] MEDS: predniSONE 10 MG TAB PO SCH (08:36)
[2020-05-31] MEDS: LACOSAMIDE 50 MG TABLET PO SCH ×2 (08:36→19:46)
[2020-05-31] MEDS: PARoxetine 20 MG TAB PO SCH (08:36)
[2020-05-31] MEDS: FAMOTIDINE 20 MG TAB PO SCH (08:36)
[2020-05-31] MEDS: MONTELUKAST 10 MG TAB PO SCH (08:36)
[2020-05-31] MEDS: DIVALPROEX ER 500 MG TAB.ER.24H PO SCH ×2 (08:36→19:46)
[2020-05-31] MEDS: LISINOPRIL-HCTZ 20-25 MG 1 EACH TAB PO SCH (08:37)
[2020-05-31] MEDS: BALSALAZIDE DISODIUM 750 MG CAPSULE PO SCH ×3 (08:37→19:46)
[2020-05-31] MEDS: FLUTICASONE 110 MCG INHALER INHALATION SCH ×2 (08:46→19:22)
[2020-05-31] MEDS ORDERED: CYANOCOBALAMIN 1,000 MCG/ML 1 ML VIAL IM ONE (08:55)
--- NOTE | 2020-05-31 11:11 | P.PN ---
Subjective Progress Note Date: 05/31/20 Patient mental status is improving significantly compared to yesterday. She is not back to normal yet. No acute events overnight reported by nursing staff. Objective - Vital Signs Vital signs: Vital Signs Temp 99.2 F 05/31/20 08:30 Pulse 84 05/31/20 08:30 Resp 18 05/31/20 08:30 BP 154/95 05/31/20 08:30 Pulse Ox 97 05/31/20 08:30 Intake & Output 05/30/20 05/31/20 05/31/20 18:59 06:59 18:59 Intake Total 960 0 Output Total 400 450 Balance 560 -450 0 Weight 88.8 kg Intake: Oral 960 0 Output: Urine 400 450 Other: Voiding Method Bedpan Bedside Commode Bedside Commode # Voids 1 1 # Bowel Movements 1 2 - Exam General: The patient is awake and alert, in no distress Eye: there is normal conjunctiva bilaterally. Neck: The neck is supple, there is no JVD. Cardiovascular: Normal S1-S2, no S3-S4, no murmurs. Respiratory: Lungs clear to auscultation bilaterally Gastrointestinal: Abdomen is soft, nontender Musculoskeletal: There is no pedal edema. Neurological:. Speech is normal. Skin: Skin is warm and dry - Labs CBC & Chem 7: 05/29/20 11:20 05/29/20 11:20 Labs: Abnormal Lab Results - Last 24 Hours (Table) 05/30/20 Range/Units 10:17 Vitamin B12 186.0 L (200.0-944.0) pg/mL Assessment and Plan Assessment: This is a 35-year-old female with a very complex past medical history noted below who presented to the emergency room after she had a seizure episode at home. Patient was evaluated in the ER and admitted to the hospital for further management of her medical problems noted below. 1. Seizure disorder with breakthrough seizure at home: Secondary to noncompliance with medications. Depakote level almost undetectable. computed tomography scan of the head showed no acute findings. I resumed her home dose of Vimpat and Depakote. She was seen and evaluated by neurology. EEG showed evidence of encephalopathy with no epileptiform activity. Continue seizure precautions. 2. Altered mental status, attributed to prolonged postictal state per neurology. Patient is maintained on high-dose gabapentin which I would titrate down slowly. Metabolic encephalopathy ruled out. Lab work within acceptable range including thyroid function test. No evidence of UTI. Computed tomography scan of the head with no acute findings. May consider psych evaluation if not improving. 2. Chronic pain syndrome 3. Hyperlipidemia 4. Hypothyroidism 5. Underlying ulcerative colitis 6. DVT prophylaxis with subcu heparin Today, I reviewed her medication list and lab work results. Continue to monitor clinical condition.Continue seizure precautions. to severe discharge home tomorrow.
--- NOTE | 2020-05-31 14:17 | P.CN ---
Psychiatric Consult - . Consult date: 05/31/20 Consult:: 05/31/20 11:58 IDENTIFYING DATA: This patient is a 35-year-old female who currently lives with her mother in a house. REASON FOR REFERRAL: Psychiatry was consulted for medication management HISTORY OF PRESENT ILLNESS: The patient presented to the hospital on 05/29/20 for a seizure. According to EMS patient had 2 seizures earlier before being picked up and brought to the hospital. Patient apparently had been taking Vimpat as her antiepileptic. Patient appeared to be postictal in the ER and was slurring her words however did not improve significantly and was admitted medically. Patient had a UDS which was positive for oxycodone, benzodiazepines, THC and TCAs. Patient had a head CT scan which showed a low-lying cerebellar tonsils however no acute hemorrhages or changes seen. Patient had an EEG which showed moderate background slowing and generalized cerebral dysfunction. Patient's Depakote level was below 10 upon admission. Neurology has been following patient. Patient's nurse claims that patient is still fairly confused however has improved since yesterday. Patient was seen at the bedside and was staring at the wall and the TV without it being on. Patient responded to her name and appeared to have poor concentration during the encounter. She had poor eye contact and would look around the room frequently. She stated that she was hearing voices however was not able to elaborate on what they were saying. She answered some questions however other questions she would simply stare at feature writer and not respond. She was oriented to her name only however when she was told that she was in hospital she repeated the word "hospital" several times. She would sigh deeply several times during the interview and fiddle with her fingers and appeared to be restless with her legs at times. At this time patient denies any suicidal or homical ideations, intent or plan. She denies any paranoia or delusions. Patients admits to using cigarettes daily however denies any other recreational drug use. UDS was positive for oxycodone, benzodiazepines, marijuana and TCAs. PAST PSYCHIATRIC HISTORY: Patient has a a history of anxiety and bipolar disorder. Patient was previously on Paxil, Seroquel and Depakote. Patient was unable to provide any further psychiatric history due to her altered mental status. PAST MEDICAL HISTORY: Asthma, fibromyalgia, GERD, seizure disorder, chronic pain. ALLERGIES: as per EMR. CHEMICAL DEPENDENCY HISTORY: as per HPI. FAMILY PSYCHIATRIC/SUBSTANCE USE HISTORY: Unable to provide this history. SOCIAL HISTORY: Unable to provide this history. MENTAL STATUS EXAM: General Appearance: Patient appears to be overweight, stated age is alert, gazing around the room, only answering minimal questions. Patient appears to have fair hygiene and grooming wearing hospital gown with poor eye contact. Behavior: Patient is calmly lying in bed without any agitated behavior. Appears to be responding to internal stimuli and gazing around the room. Speech: Patient's speech is hesitant and concrete. Mood/Affect: Patient reports their mood is "ok", affect is congruent and constricted. Suicidality/Homicidality: Patient denies having any suicidal or homicidal ideation intent or plan. Perceptions: Patient denies any visual hallucinations, she admits to auditory hallucinations. Though content/process: [place], poverty of content. Only answers minimal questions. Illogical at times. Memory and concentration: AOX1-2, does not know today's date or her location. Poor concentration. Judgment and insight: poor IMPRESSIONS: Delirium, likely secondary to medications vs. substance withdrawal Seizure disorder History of bipolar disorder Likely opiate abuse Cannabis use disorder Nicotine dependence PLAN: -At this time patient DOES NOT meet criteria for inpatient psychiatric admission. -Delirium precautions recommended with patient including - avoiding use of narcotics and SPANISH TE[employer]ER sedatives, limit anticholinergic medications when possible, frequent re-orientation, minimize use of restraints, open window shades during the day and close them at night -Would recommend the following medication changes/additions: Started patient on standing dose of Haldol 2 mg liquid twice a day for delirium/psychosis. Decrease dose of Depakote to 1000 mg twice a day as the previous dose may be too sedating and will need to gradually titrate up and check a level within the next 2-3 days. Hold off on Seroquel at this time. Can continue on with Paxil for 2 mg daily at current dose. -appreciate neurology recommendations. awaiting results of second EEG. B12 will need to be replaced as the level is low. -Communicated plan to patient's nurse -Will continue to follow along -Please contact with any questions.
[2020-05-31] MEDS: HALOPERIDOL ORAL SOLN 10 MG/5 ML CUP PO SCH ×2 (16:05→19:46)
[2020-05-31] MEDS: GABAPENTIN 300 MG CAP PO SCH ×2 (16:06→19:48)
[2020-05-31] MEDS: cloNIDine HCL 0.1 MG TAB PO SCH ×2 (16:06→19:48)
[2020-05-31] MEDS: ATORVASTATIN 10 MG TAB PO SCH (19:44)
--- NOTE | 2020-05-31 22:31 | P.PN ---
Subjective Progress Note Date: 05/31/20 Patient was seen for a follow-up. Patient continues to be very confused, encephalopathic. Perseverates. Patient smiles. When I asked if she takes her medication regularly, states "I just don't". No obvious seizure activity. Objective - Vital Signs Vital signs: Vital Signs Temp 98.7 F 05/31/20 20:00 Pulse 79 05/31/20 20:00 Resp 18 05/31/20 20:00 BP 146/91 05/31/20 20:00 Pulse Ox 95 05/31/20 20:00 Intake & Output 05/31/20 05/31/20 06/01/20 06:59 18:59 06:59 Intake Total 0 240 Output Total 450 100 Balance -450 -100 240 Weight 88.8 kg Intake: Oral 0 240 Output: Urine 450 50 Post Void Residual 50 Other: Voiding Method Bedside Commode Bedside Commode Bedside Commode Diaper # Voids 1 0 # Bowel Movements 2 3 - Exam Patient is alert and awake, pleasant in no distress. However when she started speaking, she is very confused. When I asked what year is it, states 2020. Then she answered "2020" for everything, month is 2020, current president is 2020, she loses train of thought. Very delirious. Muscle strength is normal. No obvious seizure activity. - Labs CBC & Chem 7: 05/29/20 11:20 05/29/20 11:20 Labs: Abnormal Lab Results - Last 24 Hours (Table) 05/30/20 Range/Units 10:17 Vitamin B12 186.0 L (200.0-944.0) pg/mL Assessment and Plan Assessment: * 35-year-old female with history of posttraumatic epilepsy, came with recurrent seizures, (possible some unwitnessed recurrent seizures). Her seizures now seems to have resolved. Patient is in post ictal state. * Persistent altered mental status, with disorientation, confusion and perseveration. * History of TBI in 2006, and seizures started from 2007. Patient is on fairly high-dose of Depakote, but is noncompliant with medication. Her Depakote level came as <10.0. * Noncompliance with medication. * Marijuana use. Plan: * Resume Depakote and Vimpat. Her seizures would not come under control as long as she is noncompliant with medications. * Patient continues to be very encephalopathic. Patient was on gabapentin 1200 mg 3 times a day, which has been held since admission. We will resume gabapentin 600 mg 3 times a day. It is not very clear, which medication patient has been taking which is not. Apparently she was not taking Depakote (as the levels are <10), but her urine drug screen is positive for opiates, therefore she was probably taking Percocets. Patient may be undergoing opiate withdrawal as well. Discussed with primary physician, who will start patient on clonidine. We will also check a Neurontin level from blood specimen from yesterday to see if she was compliant with Neurontin. * EEG 03/29/2021 revealed at least moderate background slowing, consistent with generalized cerebral dysfunction, that can be seen with toxic metabolic encephalopathy, due to diffuse structural brain abnormality or from post ictal effect. No epileptiform activity was seen. No status epilepticus. * Repeat EEG in a.m., due to persistent altered mental status. * Appreciate psychiatry's input. Patient to stay off Seroquel. Haldol 2 mg as needed. Agree with decreasing Depakote 1000 mg twice a day. We will recheck level in the morning. Continue Paxil. * Patient has significant B12 deficiency, we will start replacement. * We will follow.
[2020-06-01] MEDS: LEVOTHYROXINE 137 MCG TAB PO SCH (05:55)
[2020-06-01 07:42] LABS: Anisocytosis Slight; HGB 11.5 gm/dL (11.4-16.0); Hypochromasia Slight; MCH 25.5 pg (25.0-35.0); MCV 79.7 fL (80.0-100.0); Mean Platelet Volume 6.7; Microcytosis Slight; Platelet Count 687 k/uL (150-450); RBC 4.51 m/uL (3.80-5.40); RDW 16.9 % (11.5-15.5); WBC 9.2 k/uL (3.8-10.6)
[2020-06-01 08:13] LABS: African American GFR (CKD) >90 (>60 ml/min/1.73 sqM); Anion Gap 15 mmol/L; Blood Urea Nitrogen 24 mg/dL (7-17); Calcium 9.8 mg/dL (8.4-10.2); Carbon Dioxide 24 mmol/L (22-30); Chloride 101 mmol/L (98-107); Glucose 105 mg/dL (74-99); Non-African American GFR(CKD) >90 (>60 ml/min/1.73 sqM); Potassium 3.4 mmol/L (3.5-5.1); Sodium 140 mmol/L (137-145)
[2020-06-01] MEDS: FLUTICASONE 110 MCG INHALER INHALATION SCH ×2 (08:41→21:37)
[2020-06-01] MEDS: MONTELUKAST 10 MG TAB PO SCH (09:37)
[2020-06-01] MEDS: LACOSAMIDE 50 MG TABLET PO SCH ×2 (09:37→21:06)
[2020-06-01] MEDS: cloNIDine HCL 0.1 MG TAB PO SCH ×3 (09:37→21:06)
[2020-06-01] MEDS: DIVALPROEX ER 500 MG TAB.ER.24H PO SCH ×2 (09:37→21:06)
[2020-06-01] MEDS: FAMOTIDINE 20 MG TAB PO SCH (09:37)
[2020-06-01] MEDS: predniSONE 10 MG TAB PO SCH (09:37)
[2020-06-01] MEDS: GABAPENTIN 300 MG CAP PO SCH ×3 (09:37→21:06)
[2020-06-01] MEDS: FOLIC ACID 1 MG TAB PO SCH (09:37)
[2020-06-01] MEDS: PARoxetine 20 MG TAB PO SCH (09:37)
[2020-06-01] MEDS: HEPARIN SODIUM,PORCINE 5,000 UNIT/ML 1 ML VIAL SQ SCH ×2 (09:38→21:06)
[2020-06-01] MEDS: LISINOPRIL-HCTZ 20-25 MG 1 EACH TAB PO SCH (09:38)
[2020-06-01] MEDS: BALSALAZIDE DISODIUM 750 MG CAPSULE PO SCH ×3 (09:46→21:06)
[2020-06-01] MEDS ORDERED: POTASSIUM CHLORIDE ER 20 MEQ TAB.ER PO STA (09:52)
[2020-06-01] MEDS: HALOPERIDOL ORAL SOLN 10 MG/5 ML CUP PO SCH ×2 (11:53→21:05)
[2020-06-01] MEDS ORDERED: CYANOCOBALAMIN 1,000 MCG/ML 1 ML VIAL IM ONE (12:00)
[2020-06-01] MEDS ORDERED: HALOPERIDOL ORAL SOLN 10 MG/5 ML CUP PO STA (13:01)
--- NOTE | 2020-06-01 13:41 | P.PN ---
Progress Note - Text Progress Note Date: 06/01/20 Interval History: Patient was seen today for psychiatric follow-up regarding patient's delirium. Patient was started on scheduled Haldol yesterday and her Depakote was decreased down to 1000 mg twice a day. Patient appears to be more cooperative with advertising writer and was more pleasant today. She claims that she does not recognize advertising writer from yesterday. She appears to have some improvement in her confusion however was oriented to name only once again today. She believes that she was in a "house" and also that the date was "02/23" today. She was able to recognize several things within the room. She continues to not know the circumstances as to why she isn't hospital. She states that she is feeling a bit better today and was able to sleep throughout the night. She denies any changes in her mood or depression today. Patient's concentration appears to be improved however continues to have word finding difficulties. At this time patient denies any suicidal or homical ideations, intent or plan. Patient denies any auditory, visual hallucinations and denies any paranoia or delusions. Patient denies any side effects from the medications and has been compliant with meds. Mental Status Exam: General Appearance: Patient appears to be overweight, stated age is alert, improvement in concentration and attempts to cooperate. Continues to be confused. Patient appears to have fair hygiene and grooming wearing hospital gown Behavior: Patient is calmly lying in bed without any agitated behavior. Improvement in concentration and less confused today Speech: Patient's speech is hesitant and concrete, improving mildly Mood/Affect: Patient reports their mood is "good", affect is congruent and constricted. Suicidality/Homicidality: Patient denies having any suicidal or homicidal ideation intent or plan. Perceptions: Patient denies any visual hallucinations, she admits to auditory hallucinations. Though content/process: [place], poverty of content. Attempts to answer more questions. More logical today. Memory and concentration: AOX1-2, does not know today's date or her location. Concentration improving. Able to identify several objects in the room. Judgment and insight: poor, improving mildly Assessment Delirium, likely secondary to medications vs. substance withdrawal Seizure disorder History of bipolar disorder Likely opiate abuse Cannabis use disorder Nicotine dependence Plan: -At this time patient DOES NOT meet criteria for inpatient psychiatric admission. -Delirium precautions recommended with patient including - avoiding use of narcotics and [employer] sedatives, limit anticholinergic medications when possible, frequent re-orientation, minimize use of restraints, open window shades during the day and close them at night -Would recommend the following medication changes/additions: Increased Haldol 3 mg liquid twice a day for delirium/psychosis. Continue Depakote to 1000 mg twice a day as the previous dose may be too sedating and will need to gradually titrate up and check a level tomorrow morning. Hold off on Seroquel at this time. Can continue on with Paxil 40 mg daily at current dose. -appreciate neurology recommendations. awaiting results of second EEG. B12 replaced as the level is low. -Communicated plan to patient's nurse -Will continue to follow along -Please contact with any questions.
--- NOTE | 2020-06-01 14:01 | P.PN ---
Subjective Progress Note Date: 06/01/20 Patient is doing better today. His mentation is waxing and waning. She was oriented to herself, to the place, and to the year when I asked her this morning but when other physician as her she was only oriented to herself. She does not recognize the president when I ask her. Her pupils remain dilated. Objective - Vital Signs Vital signs: Vital Signs Temp 98.6 F 06/01/20 03:40 Pulse 96 06/01/20 03:40 Resp 16 06/01/20 03:40 BP 132/97 06/01/20 03:40 Pulse Ox 94 L 06/01/20 03:40 Intake & Output 05/31/20 06/01/20 06/01/20 18:59 06:59 18:59 Intake Total 0 240 0 Output Total 100 480 Balance -100 -240 0 Weight 92.1 kg Intake: Oral 0 240 0 Output: Urine 50 480 Post Void Residual 50 Other: Voiding Method Bedside Commode Bedside Commode Diaper # Voids 1 # Bowel Movements 3 1 - Exam General: The patient is awake and alert, in no distress Eye: there is normal conjunctiva bilaterally. Neck: The neck is supple, there is no JVD. Cardiovascular: Normal S1-S2, no S3-S4, no murmurs. Respiratory: Lungs clear to auscultation bilaterally Gastrointestinal: Abdomen is soft, nontender Musculoskeletal: There is no pedal edema. Neurological:. Speech is normal. Skin: Skin is warm and dry - Labs CBC & Chem 7: 06/01/20 06:40 06/01/20 06:40 Labs: Abnormal Lab Results - Last 24 Hours (Table) 06/01/20 06/01/20 Range/Units 06:40 06:40 MCV 79.7 L (80.0-100.0) fL RDW 16.9 H (11.5-15.5) % Plt Count 687 H (150-450) k/uL Potassium 3.4 L (3.5-5.1) mmol/L BUN 24 H (7-17) mg/dL Glucose 105 H (74-99) mg/dL Assessment and Plan Assessment: This is a 35-year-old female with a very complex past medical history noted below who presented to the emergency room after she had a seizure episode at home. Patient was evaluated in the ER and admitted to the hospital for further management of her medical problems noted below. 1. Seizure disorder with breakthrough seizure at home: Secondary to noncompliance with medications. Depakote level almost undetectable. computed tomography scan of the head showed no acute findings. Depakote dose was decreased to 1000 mg twice daily and Vimpat 50 mg twice a day. She was seen and evaluated by neurology. EEG showed evidence of encephalopathy with no epileptiform activity. A repeat EEG ordered for today. Continue seizure precautions. 2. Altered mental status, attributed to prolonged postictal state per neurology. Patient is maintained on high-dose gabapentin which was decreased to 600 mg 3 times a day. Metabolic encephalopathy ruled out. Lab work within acceptable range including thyroid function test. No evidence of UTI. Computed tomography scan of the head with no acute findings. MRI ordered by neurology 3. Delirium, seen and evaluated by psychiatry. Thought to be attributed to polypharmacy versus substance withdrawal. Started on Haldol. Also started on clonidine for opiate withdrawal. 4. Chronic medical problems: Essential hypertension, hypothyroidism, hyperlipidemia, ulcerative colitis, Chronic pain syndrome 5. DVT prophylaxis with subcu heparin Today, I reviewed her medication list and lab work results. Continue to monitor clinical condition.Continue seizure precautions. to severe discharge home tomorrow.
--- NOTE | 2020-06-01 15:14 | P.PN ---
Subjective Progress Note Date: 06/01/20 Patient was seen for a follow-up by a tele-neurology. Patient relatively improved as compared to yesterday. Still quite confused. Less perseveration. Patient denies headache. Patient able to tell some better history. Patient states that she has not been taking her gabapentin, or Depakote. She admits to still taking Percocet, Seroquel, Adipex and Elavil. When I asked about the dose of Seroquel, patient states 100. I asked how many tablets, or how many milligrams, she keeps on repeating 100. Patient denied using marijuana, but when I told her that her urine was positive for marijuana, states smokes it "once in a while". Objective - Vital Signs Vital signs: Vital Signs Temp 98.6 F 06/01/20 03:40 Pulse 96 06/01/20 03:40 Resp 16 06/01/20 03:40 BP 132/97 06/01/20 03:40 Pulse Ox 94 L 06/01/20 03:40 Intake & Output 05/31/20 06/01/20 06/01/20 18:59 06:59 18:59 Intake Total 0 240 0 Output Total 100 480 Balance -100 -240 0 Weight 92.1 kg Intake: Oral 0 240 0 Output: Urine 50 480 Post Void Residual 50 Other: Voiding Method Bedside Commode Bedside Commode Diaper # Voids 1 # Bowel Movements 3 1 - Exam Patient is alert and awake, pleasant in no distress. Patient is less encephalopathic, more able to answer questions. Patient states the year is 2019. When asked the month, states 2020., When we give her choices, states is April. Patient states the current president is [place]. She was able to tell that she is in [facility] in her exact date of . She knows it is cold season. Speech is clear with no aphasia. She has some stuttering at times. Patient's muscle strength is normal. Patient has significant problems with executive functions. She has difficulty following tasks like for [id number] testing, she would keep on testing the examiner finger and then her own finger rather than touching her nose. It required numerous attempts before she was able to understand the sequence. There was no ataxia for [id number] although she is slightly ataxic for vach-[id number] testing bilaterally. Sensations are equal. Visual oden are full, face is symmetric, mouth is dry. - Labs CBC & Chem 7: 06/01/20 06:40 06/01/20 06:40 Labs: Abnormal Lab Results - Last 24 Hours (Table) 06/01/20 06/01/20 Range/Units 06:40 06:40 MCV 79.7 L (80.0-100.0) fL RDW 16.9 H (11.5-15.5) % Plt Count 687 H (150-450) k/uL Potassium 3.4 L (3.5-5.1) mmol/L BUN 24 H (7-17) mg/dL Glucose 105 H (74-99) mg/dL Assessment and Plan Assessment: * 35-year-old female with history of posttraumatic seizure disorder, came with recurrent seizures, (possible some unwitnessed recurrent seizures). Her seizures now seems to have resolved. Patient is in post-ictal state improving. * Persistent altered mental status, with disorientation, confusion and perseveration. * History of TBI in 2006, and seizures started from 2007. Patient is on fairly high-dose of Depakote, but is noncompliant with medication. Her Depakote level came as <10.0. * Noncompliance with medication. * Chiari malformation * Marijuana use. Plan: * Resume Depakote and Vimpat. Her seizures would not come under control as long as she is noncompliant with medications. * Patient continues to be very encephalopathic. Patient was on gabapentin 1200 mg 3 times a day, which has been held since admission. We will resume gabapentin 600 mg 3 times a day. It is not very clear, which medication patient has been taking which is not. Apparently she was not taking Depakote (as the levels are <10), but her urine drug screen is positive for opiates, therefore she was probably taking Percocets. Patient may be undergoing opiate withdrawal as well. Discussed with primary physician, who will start patient on clonidine. We will also check a Neurontin level from blood specimen from yesterday to see if she was compliant with Neurontin. * EEG 03/29/2021 revealed at least moderate background slowing, consistent with generalized cerebral dysfunction, that can be seen with toxic metabolic encephalopathy, due to diffuse structural brain abnormality or from post ictal effect. No epileptiform activity was seen. No status epilepticus. * EEG has been completed, but not able to read EEG on the computer due to technical reasons. * Appreciate psychiatry's input. Patient to stay off Seroquel. Haldol 2 mg as needed. Agree with decreasing Depakote 1000 mg twice a day. We will recheck level. Continue Paxil. * Patient has significant B12 deficiency, we will start replacement. * Because of persistent mental function abnormality, we will check MRI of the brain with and without contrast. Patient also has Chiari malformation. * We will follow.
[2020-06-01] MEDS: ATORVASTATIN 10 MG TAB PO SCH (21:06)
[2020-06-02] MEDS: LEVOTHYROXINE 137 MCG TAB PO SCH (06:05)
[2020-06-02 07:38] LABS: Anisocytosis Slight; HCT 38.2 % (34.0-46.0); HGB 12.2 gm/dL (11.4-16.0); MCH 25.4 pg (25.0-35.0); MCHC 31.9 g/dL (31.0-37.0); MCV 79.6 fL (80.0-100.0); Mean Platelet Volume 6.8; Microcytosis Slight; Platelet Count 751 k/uL (150-450); WBC 9.8 k/uL (3.8-10.6)
[2020-06-02 07:49] LABS: African American GFR (CKD) >90 (>60 ml/min/1.73 sqM); Anion Gap 13 mmol/L; Blood Urea Nitrogen 26 mg/dL (7-17); Carbon Dioxide 25 mmol/L (22-30); Chloride 100 mmol/L (98-107); Glucose 105 mg/dL (74-99); Magnesium 2.3 mg/dL (1.6-2.3); Non-African American GFR(CKD) >90 (>60 ml/min/1.73 sqM); Potassium 3.6 mmol/L (3.5-5.1); Sodium 138 mmol/L (137-145)
[2020-06-02] MEDS: FLUTICASONE 110 MCG INHALER INHALATION SCH ×2 (08:04→19:01)
[2020-06-02] MEDS ORDERED: DIVALPROEX 500 MG TABLET.DR PO STA (09:12)
[2020-06-02] MEDS: MONTELUKAST 10 MG TAB PO SCH (09:44)
[2020-06-02] MEDS: LISINOPRIL-HCTZ 20-25 MG 1 EACH TAB PO SCH (09:44)
[2020-06-02] MEDS: cloNIDine HCL 0.1 MG TAB PO SCH ×3 (09:45→20:55)
[2020-06-02] MEDS: GABAPENTIN 300 MG CAP PO SCH ×3 (09:45→20:58)
[2020-06-02] MEDS: FAMOTIDINE 20 MG TAB PO SCH (09:45)
[2020-06-02] MEDS: predniSONE 10 MG TAB PO SCH (09:45)
[2020-06-02] MEDS: FOLIC ACID 1 MG TAB PO SCH (09:45)
[2020-06-02] MEDS: LACOSAMIDE 50 MG TABLET PO SCH ×2 (09:45→20:56)
[2020-06-02] MEDS: BALSALAZIDE DISODIUM 750 MG CAPSULE PO SCH ×3 (09:46→21:26)
[2020-06-02] MEDS: PARoxetine 20 MG TAB PO SCH (09:46)
[2020-06-02] MEDS: HEPARIN SODIUM,PORCINE 5,000 UNIT/ML 1 ML VIAL SQ SCH ×2 (09:46→20:56)
[2020-06-02] MEDS: HALOPERIDOL ORAL SOLN 10 MG/5 ML CUP PO SCH (09:47)
[2020-06-02] MEDS: PHENYTOIN SODIUM INJ 1,000 MG in SODIUM CHLORIDE 0.9% 100 ML IVPB STA ×2 (10:07→17:14)
--- NOTE | 2020-06-02 10:41 | P.PN ---
Subjective Progress Note Date: 06/02/20 Patient is awake and alert today. Her mentation is improving daily that she is still having difficulties recalling some of her medications. No acute events overnight reported by nursing staff. Objective - Vital Signs Vital signs: Vital Signs Temp 98.5 F 06/02/20 08:00 Pulse 83 06/02/20 08:00 Resp 18 06/02/20 08:00 BP 135/87 06/02/20 08:00 Pulse Ox 96 06/02/20 08:00 Intake & Output 06/01/20 06/02/20 06/02/20 18:59 06:59 18:59 Intake Total 50 240 Output Total 1300 Balance 50 -1060 Weight 91.1 kg Intake: Oral 50 240 Output: Stool 1300 Other: Voiding Method Bedside Commode Toilet Diaper # Voids 1 1 # Bowel Movements 1 1 - Exam General: The patient is awake and alert, in no distress Eye: there is normal conjunctiva bilaterally. Neck: The neck is supple, there is no JVD. Cardiovascular: Normal S1-S2, no S3-S4, no murmurs. Respiratory: Lungs clear to auscultation bilaterally Gastrointestinal: Abdomen is soft, nontender Musculoskeletal: There is no pedal edema. Neurological:. Speech is normal. Skin: Skin is warm and dry - Labs CBC & Chem 7: 06/02/20 06:58 06/02/20 06:58 Labs: Abnormal Lab Results - Last 24 Hours (Table) 06/02/20 06/02/20 Range/Units 06:58 06:58 MCV 79.6 L (80.0-100.0) fL RDW 17.0 H (11.5-15.5) % Plt Count 751 H (150-450) k/uL BUN 26 H (7-17) mg/dL Glucose 105 H (74-99) mg/dL Assessment and Plan Assessment: This is a 35-year-old female with a very complex past medical history noted below who presented to the emergency room after she had a seizure episode at home. Patient was evaluated in the ER and admitted to the hospital for further management of her medical problems noted below. 1. Seizure disorder with breakthrough seizure at home: Secondary to noncompliance with medications. Depakote and Vimpat levels on presentation almost undetectable. computed tomography scan of the head showed no acute findings. Depakote dose adjusted to 1000 mg 3 times daily and Vimpat 50 mg twice a day. She was seen and evaluated by neurology. EEG showed evidence of encephalopathy with no epileptiform activity. A repeat EEG and brain MRI ordered. Continue seizure precautions. 2. Altered mental status, attributed to prolonged postictal state per neurology. Patient is maintained on high-dose gabapentin which was decreased to 600 mg 3 times a day. Metabolic encephalopathy ruled out. Lab work within acceptable range including thyroid function test. No evidence of UTI. Computed tomography scan of the head with no acute findings. 3. Delirium, seen and evaluated by psychiatry. Thought to be attributed to polypharmacy versus substance withdrawal. Started on Haldol. Also started on clonidine for opiate withdrawal. 4. Vitamin B12 deficiency: Received 2 doses IM. Continue oral supplement. Also started on folic acid. 5. Chronic medical problems: Essential hypertension, hypothyroidism, hyperlipidemia, ulcerative colitis, Chronic pain syndrome 6. DVT prophylaxis with subcu heparin Today, I reviewed her medication list and lab work results. Continue to monitor clinical condition.Continue seizure precautions.
--- NOTE | 2020-06-02 10:55 | EEG ---
ELECTROENCEPHALOGRAM REPORT DATE OF SERVICE: 06/01/2020 PREAMBLE: This is a 35-year-old female with history of seizure disorder, medication noncompliance, came with seizure. Patient has persistent altered mental status, encephalopathy, rule out persistent seizures versus encephalopathy or postictal state. EEG FINDINGS: This is a 21 channel routine EEG recording on a patient utilizing 10/20 international system with referential and bipolar montages. The background consists of a well- developed, poorly regulated, generalized high amplitude 3-4 hertz delta activity, intermixed with some 4-5 hertz theta activity. Background is not reactive to eye opening or closing or to photic stimulation. At times this generalized delta becomes very rhythmic in morphology. No motor activity was noted during this study. No sharp waves or epileptiform activity was seen. IMPRESSION: This is an abnormal EEG due to the presence of generalized high-amplitude diffuse slowing in delta and theta range. At times, this slowing becomes very rhythmic in 2-3 hertz delta activity, which may suggest underlying convulsive tendency. This is suggestive of severe encephalopathy. Nonconvulsive status is also in the differential. Followup EEG is recommended. MMODL / IJN: [id number] /
[2020-06-02] MEDS: DIVALPROEX ER 500 MG TAB.ER.24H PO SCH ×3 (12:24→20:57)
--- NOTE | 2020-06-02 13:54 | P.PN ---
Subjective Progress Note Date: 06/02/20 Patient was seen for a follow-up. Patient has much improved as compared to yesterday. Able to provide very detailed history and clearly. Mentation has improved. Her affect, and latency time has much improved. Very minimal confusion as per exam below. Today patient told me that she has not been taking Depakote for a few days. She has been taking Neurontin, but only once a day. She was on Neurontin 1200 mg 3 times a day. Patient admits to taking Seroquel 700 mg daily, and is still taking it. Also takes Percocets and marijuana once in a while. Patient has been on Adipex for a couple years. Denies any alcohol. She does admit to smoking half pack per day. Patient states that she has been seen by Dr. Demetrius Bonilla, and the last time she was seen by Dr. Bonilla was on 03/23/2020. She missed subsequent appointment. Objective - Vital Signs Vital signs: Vital Signs Temp 98.5 F 06/02/20 08:00 Pulse 83 06/02/20 08:00 Resp 18 06/02/20 08:00 BP 135/87 06/02/20 08:00 Pulse Ox 96 06/02/20 08:00 Intake & Output 06/01/20 06/02/20 06/02/20 18:59 06:59 18:59 Intake Total 50 240 480 Output Total 1300 Balance 50 -1060 480 Weight 91.1 kg Intake: Oral 50 240 480 Output: Stool 1300 Other: Voiding Method Bedside Commode Toilet Toilet Diaper # Voids 1 1 # Bowel Movements 1 1 - Exam Patient is much more alert and awake. Patient is alert and oriented 3. Patient states that she is in [facility] in [facility]. Patient states it is June 01 and the year is 2013. Then she changed to 2015, then , then 18, and then . After I told her it is 2020, then she stayed on it and was able to retain it. Patient knows current president is Mr. Rangel. Patient's mentation is much more clear. She is able to answer very promptly, with much less improved latency. Patient states that she has 2 kids age 8 and 6. She is currently not on control pills, but is not planning to have any more children. Her cranial nerves are all normal. Muscle strength is normal. No ataxia. Tone and bulk of muscles normal. - Labs CBC & Chem 7: 06/02/20 06:58 06/02/20 06:58 Labs: Abnormal Lab Results - Last 24 Hours (Table) 06/02/20 06/02/20 Range/Units 06:58 06:58 MCV 79.6 L (80.0-100.0) fL RDW 17.0 H (11.5-15.5) % Plt Count 751 H (150-450) k/uL BUN 26 H (7-17) mg/dL Glucose 105 H (74-99) mg/dL Assessment and Plan Assessment: * 35-year-old female with history of posttraumatic seizure disorder, came with recurrent seizures, (possible some unwitnessed recurrent seizures). Her seizures now seems to have resolved. Patient is in post-ictal state improving. * Persistent altered mental status, with disorientation, confusion and perseveration. Mentation much improved today. * History of TBI in 2006, and seizures started from 2007. Patient is on fairly high-dose of Depakote, but is noncompliant with medication. Her Depakote level came as <10.0. * Noncompliance with medication. * Chiari malformation * Marijuana use. Plan: * Resume Depakote and Vimpat. Her Depakote level is still low 44.1. We will increase Depakote to 1000 mg 3 times a day. * EEG from 06/01/2020 revealed severely abnormal because of presence of generalized high amplitude diffuse slowing in delta and theta range. At times the slowing becomes very rhythmic in 2-3 Hz delta activity, which may suggest underlying convulsive tendency. This is suggestive of severe encephalopathy. Nonconvulsive status is also in the differential. Follow-up EEG is recommended. I gave patient 1 g of Dilantin after looking at the EEG. We will repeat the EEG in the morning. I would not continue Dilantin. Continue Depakote 1000 mg 3 times a day. Patient's Vimpat level is <0.5. * Continue Neurontin 600 mg 3 times a day. * EEG 03/29/2021 revealed at least moderate background slowing, consistent with generalized cerebral dysfunction, that can be seen with toxic metabolic encep halopathy, due to diffuse structural brain abnormality or from post ictal effect. No epileptiform activity was seen. No status epilepticus. * Appreciate psychiatry's input. Patient to stay off Seroquel. Haldol 2 mg as needed. Continue Paxil. * Patient has significant B12 deficiency, we will start replacement. * Await MRI of the brain with and without contrast. Patient also has Chiari malformation. * Dr. Demetrius Siddiqui to resume neurology service in the morning.
--- NOTE | 2020-06-02 14:00 | P.PN ---
Progress Note - Text Progress Note Date: 06/02/20 Interval History: Patient was seen today for psychiatric follow-up regarding patient's delirium. Patient has been taking her scheduled doses of Haldol and Depakote. This Haldol dose was increased yesterday to 3 mg twice a day. Patients nurse claims that patient has been improving and is alert and oriented 3 and has been more cooperative. Patient appears to be more cooperative with entry writer and was more pleasant today. She recognizes entry writer from yesterday and states that "you're the psychiatrist". She appears to have improvement in her concentration however was not able to spell "world" backwards. She was alert and oriented 3 today. She recognized that she was in the hospital for having a seizure. She states that she isn't speaking with her mom on the phone however was vague about their conversation. She denies any anxiety or any changes in her mood. She states that she is able to think clearer today. She claims that she is sleeping well throughout the night. Patient's concentration appears to be improved however continues to have word finding difficulties, which have been improving. At this time patient denies any suicidal or homical ideations, intent or plan. Patient denies any auditory, visual hallucinations and denies any paranoia or delusions. Patient denies any side effects from the medications and has been compliant with meds. Mental Status Exam: General Appearance: Patient appears to be overweight, stated age is alert, improvement in concentration and attempts to cooperate. Much less confused today. Patient appears to have fair hygiene and grooming wearing hospital gown Behavior: Patient is calmly lying in bed without any agitated behavior. Im provement in concentration Speech: Patient's speech is hesitant and concrete, improving mildly Mood/Affect: Patient reports their mood is "good", affect is congruent and constricted. Suicidality/Homicidality: Patient denies having any suicidal or homicidal ideation intent or plan. Perceptions: Patient denies any visual hallucinations, she admits to auditory hallucinations. Though content/process: [place], poverty of content. Attempts to answer more questions. More logical today and goal oriented. Memory and concentration: AOX3, she knows who the current president is. Concentration improving. Able to identify several objects in the room. Judgment and insight: improving mildly Assessment Delirium, likely secondary to medications vs. substance withdrawal Seizure disorder History of bipolar disorder Likely opiate abuse Cannabis use disorder Nicotine dependence Plan: -At this time patient DOES NOT meet criteria for inpatient psychiatric admission. -Delirium precautions recommended with patient including - avoiding use of narcotics and [employer]CRA[employer]STRUMENT [employer] sedatives, limit anticholinergic medications when possible, frequent re-orientation, minimize use of restraints, open window shades during t he day and close them at night -Would recommend the following medication changes/additions: At this time will do a Haldol taper for delirium/psychosis over the next few days. Continue Depakote to 1000 mg 3 times a day for seizure disorder. Continue to monitor valproic acid level. Can continue on with Paxil 40 mg daily at current dose. -appreciate neurology recommendations. second EEG performed yesterday showed severe encephalopathy with underlying compulsive tendencies. B12 replaced as the level is low. -Communicated plan to patient's nurse -At this time will follow peripherally and if patients condition worsens then please call psychiatric team for reevaluation. -Please contact with any questions.
[2020-06-02] MEDS: ATORVASTATIN 10 MG TAB PO SCH (20:55)
[2020-06-02] MEDS: ACETAMINOPHEN TAB 325 MG TAB PO PRN (20:55)
[2020-06-02] MEDS ORDERED: HALOPERIDOL ORAL SOLN 10 MG/5 ML CUP PO ONE (21:00)
[2020-06-03 04:03] VITALS: RESP 16
[2020-06-03] MEDS: LEVOTHYROXINE 137 MCG TAB PO SCH (06:11)
[2020-06-03] MEDS: FLUTICASONE 110 MCG INHALER INHALATION SCH ×2 (08:18→19:38)
[2020-06-03] MEDS: BALSALAZIDE DISODIUM 750 MG CAPSULE PO SCH ×3 (09:34→20:30)
[2020-06-03] MEDS: PARoxetine 20 MG TAB PO SCH (09:35)
[2020-06-03] MEDS: MONTELUKAST 10 MG TAB PO SCH (09:35)
[2020-06-03] MEDS: predniSONE 10 MG TAB PO SCH (09:35)
[2020-06-03] MEDS: LISINOPRIL-HCTZ 20-25 MG 1 EACH TAB PO SCH (09:35)
[2020-06-03] MEDS: FAMOTIDINE 20 MG TAB PO SCH (09:35)
[2020-06-03] MEDS: cloNIDine HCL 0.1 MG TAB PO SCH ×3 (09:35→20:30)
[2020-06-03] MEDS: LACOSAMIDE 50 MG TABLET PO SCH ×2 (09:36→20:30)
[2020-06-03] MEDS: DIVALPROEX ER 500 MG TAB.ER.24H PO SCH ×3 (09:36→20:31)
[2020-06-03] MEDS: GABAPENTIN 300 MG CAP PO SCH ×3 (09:36→20:30)
[2020-06-03] MEDS: CYANOCOBALAMIN 500 MCG TAB PO SCH (09:36)
[2020-06-03] MEDS: FOLIC ACID 1 MG TAB PO SCH (09:36)
[2020-06-03] MEDS: HEPARIN SODIUM,PORCINE 5,000 UNIT/ML 1 ML VIAL SQ SCH ×2 (09:36→20:31)
--- NOTE | 2020-06-03 12:43 | P.PN ---
Subjective Progress Note Date: 06/03/20 I'm I'm seeing the patient for the first time (she was seen previously by Dr. Hoffman and was last seen by him on 06/02/2020) for neurological issues. Patient is at bedside and she states that she's doing much better today compared to her initial presentation. She denies of any headaches, nausea, visual disturbance, any numbness, she has slight pain over the right lower extremity but states she is doing drastically better. Per the patient's nurse the patient is doing drastically better today compared the 2 previously and I spoke to the nurse that had last week and she said the patient was confused on presentation. She did acknowledge that she hasn't been compliant taking her Depakote or her medication as prescribed. MRI of the brain is pending and per the patient's nurse waiting on the mother called back to give information for MRI paper work. Please refer to Dr. Hoffman (Neuro-hospitalist) for further details of the patient's history as well as the workup. Objective - Vital Signs Vital signs: Vital Signs Temp 97.9 F 06/03/20 04:00 Pulse 88 06/03/20 04:00 Resp 16 06/03/20 04:00 BP 112/75 06/03/20 04:00 Pulse Ox 99 06/03/20 04:00 Intake & Output 06/02/20 06/03/20 06/03/20 18:59 06:59 18:59 Intake Total 600 240 480 Output Total 200 180 Balance 400 60 480 Weight 90.8 kg Intake: Oral 600 240 480 Output: Urine 200 180 Other: Voiding Method Toilet Bedside Commode # Voids 1 1 # Bowel Movements 1 - Exam GENERAL: The patient is lying in bed and is not in acute distress. NEUROLOGICAL: Higher mental function: The patient is awake, alert, oriented to self, place and time. Able to name objects such as pen, cup, watch and spoonPatient is following simple and complex commands. No aphasia and no neglect. Cranial nerves: The pupils are round, equal and reactive to light and accommodation. Visual oden are full to confrontation throughout. Extraocular movement is intact no nystagmus is noted. Facial sensation is normal to touch throughout. The facial strength is normal throughout. Hearing is normal bilaterally to hand rub. Tongue is midline and moved [id number] without any difficulty. No dysarthria is noted. Motor: Gait is defered. The strength is limited over the right lower extremity because of pain but has at least 4/5. Otherwise 5 over 5 throughout. Normal tone and bulk. Cerebellum: Normal finger to nose bilaterally. Sensation: Sensation is normal to touch throughout. Reflexes 2+ throughout. Plantars are downgoing bilaterally. - Labs CBC & Chem 7: 06/02/20 06:58 06/02/20 06:58 Assessment and Plan Assessment: This is a 35-year-old female with history of posttraumatic seizure disorder, came with recurrent seizures, (possible some unwitnessed recurrent seizures). * Her seizures now seems to have resolved. Seizure due to medication non- compliance * Persistent altered mental status, with disorientation, confusion and perseveration. Mentation much improved today. * History of TBI in 2006, and seizures started from 2007. Patient is on fairly high-dose of Depakote, but is noncompliant with medication. Her Depakote level came as <10.0. * Noncompliance with medication. * Vitamin B12 deficiency * Chiari malformation * Marijuana use. Plan: * Resume Depakote and Vimpat. Currently on Depakote to 1000 mg 3 times a day and Vimpat 50mg 1 tab bid. * EEG from 06/01/2020 (reported as): Revealed severely abnormal because of presence of generalized high amplitude diffuse slowing in delta and theta range. At times the slowing becomes very rhythmic in 2-3 Hz delta activity, which may suggest underlying convulsive tendency. This is suggestive of severe encephalopathy. Nonconvulsive status is also in the differential. Follow-up EEG is recommended. I gave patient 1 g of Dilantin after looking at the EEG. . * I would not continue Dilantin as per previous recommendation from Dr. Hoffman * EEG 03/29/2021 (reported as) revealed at least moderate background slowing, consistent with generalized cerebral dysfunction, that can be seen with toxic metabolic encephalopathy, due to diffuse structural brain abnormality or from post ictal effect. No epileptiform activity was seen. No status epilepticus. * Continue Neurontin 600 mg 3 times a day. * Patient has significant B12 deficiency (186), continue Vitamin B12 1000mcg daily. * Await MRI of the brain with and without contrast. Patient also has Chiari malformation. * A repeat EEG is not needed from a neurological standpoint since the patient had 2 previous EEGs and mentation-zee she is drastically improved compared to her initial presentation. Also an EEG is not warranted at this time since the patient is not having any episodes of confusion or fluctuation of her mentation. * I will repeat the Depakote the free and the total dose. * Appreciate psychiatry's input. Patient to stay off Seroquel. Haldol 2 mg as needed. Continue Paxil. * Patient was counseled on medication compliance upon discharge. The plan is discussed with the patient and her nurse. Demetrius Siddiqui MD Neuro-Hospitalist Time with Patient: Less than 30
--- NOTE | 2020-06-03 16:46 | P.PN ---
Subjective Patient is doing well today. No events overnight. She is significantly better. There was a delay in obtaining MRI of the brain as her mother did not return to screening form in a timely manner. Objective - Vital Signs Vital signs: Vital Signs Temp 97.9 F 06/03/20 12:00 Pulse 110 H 06/03/20 12:00 Resp 16 06/03/20 12:00 BP 120/88 06/03/20 12:00 Pulse Ox 99 06/03/20 12:00 Intake & Output 06/02/20 06/03/20 06/03/20 18:59 06:59 18:59 Intake Total 600 240 480 Output Total 200 180 Balance 400 60 480 Weight 90.8 kg Intake: Oral 600 240 480 Output: Urine 200 180 Other: Voiding Method Toilet Bedside Commode Bedside Commode # Voids 1 1 # Bowel Movements 1 - Exam General: The patient is awake and alert, in no distress Eye: there is normal conjunctiva bilaterally. Neck: The neck is supple, there is no JVD. Cardiovascular: Normal S1-S2, no S3-S4, no murmurs. Respiratory: Lungs clear to auscultation bilaterally Gastrointestinal: Abdomen is soft, nontender Musculoskeletal: There is no pedal edema. Neurological:. Speech is normal. Skin: Skin is warm and dry - Labs CBC & Chem 7: 06/02/20 06:58 06/02/20 06:58 Assessment and Plan Assessment: This is a 35-year-old female with a very complex past medical history noted below who presented to the emergency room after she had a seizure episode at home. Patient was evaluated in the ER and admitted to the hospital for further management of her medical problems noted below. 1. Seizure disorder with breakthrough seizure at home: Secondary to noncompliance with medications. Depakote and Vimpat levels on presentation almost undetectable. computed tomography scan of the head showed no acute findings. Depakote dose adjusted to 1000 mg 3 times daily and Vimpat 50 mg twice a day. She was seen and evaluated by neurology. EEG showed evidence of encephalopathy with no epileptiform activity. A repeat EEG and brain MRI ordered. Continue seizure precautions. 2. Altered mental status, attributed to prolonged postictal state per neurology. Patient is maintained on high-dose gabapentin which was decreased to 600 mg 3 times a day. Metabolic encephalopathy ruled out. Lab work within acceptable range including thyroid function test. No evidence of UTI. Computed tomography scan of the head with no acute findings. 3. Delirium, seen and evaluated by psychiatry. Thought to be attributed to polypharmacy versus substance withdrawal. Started on Haldol. Also started on c lonidine for opiate withdrawal. 4. Vitamin B12 deficiency: Received 2 doses IM. Continue oral supplement. Also started on folic acid. 5. Chronic medical problems: Essential hypertension, hypothyroidism, hyperlipidemia, ulcerative colitis, Chronic pain syndrome 6. DVT prophylaxis with subcu heparin Today, I reviewed her medication list and lab work results. Continue to monitor clinical condition.Continue seizure precautions.
[2020-06-03] MEDS: ACETAMINOPHEN TAB 325 MG TAB PO PRN (19:14)
[2020-06-03] MEDS: ATORVASTATIN 10 MG TAB PO SCH (20:31)
[2020-06-03] MEDS: TOBRA-DEXAMET 0.3-0.1% OPHTH OINT 3.5 GM TUBE RIGHT EYE SCH (20:32)
[2020-06-03] MEDS ORDERED: GENTAMICIN/PREDNISOL AC OPHTH OINT 3.5GM RIGHT EYE SCH (21:00)
[2020-06-04] MEDS: ONDANSETRON 4 MG/2 ML VIAL IVP PRN ×2 (07:40→13:26)
[2020-06-04] MEDS: CYANOCOBALAMIN 500 MCG TAB PO SCH (07:46)
[2020-06-04] MEDS: DIVALPROEX ER 500 MG TAB.ER.24H PO SCH (07:46)
[2020-06-04] MEDS: LACOSAMIDE 50 MG TABLET PO SCH (07:46)
[2020-06-04] MEDS: GABAPENTIN 300 MG CAP PO SCH (07:46)
[2020-06-04] MEDS: FAMOTIDINE 20 MG TAB PO SCH (07:47)
[2020-06-04] MEDS: predniSONE 10 MG TAB PO SCH (07:47)
[2020-06-04] MEDS: MONTELUKAST 10 MG TAB PO SCH (07:47)
[2020-06-04] MEDS: cloNIDine HCL 0.1 MG TAB PO SCH (07:47)
[2020-06-04] MEDS: FOLIC ACID 1 MG TAB PO SCH (07:47)
[2020-06-04] MEDS: BALSALAZIDE DISODIUM 750 MG CAPSULE PO SCH (07:48)
[2020-06-04] MEDS: LISINOPRIL-HCTZ 20-25 MG 1 EACH TAB PO SCH (07:48)
[2020-06-04] MEDS: PARoxetine 20 MG TAB PO SCH (07:48)
[2020-06-04] MEDS: HEPARIN SODIUM,PORCINE 5,000 UNIT/ML 1 ML VIAL SQ SCH (07:48)
[2020-06-04] MEDS: LEVOTHYROXINE 137 MCG TAB PO SCH (07:50)
[2020-06-04] MEDS: TOBRA-DEXAMET 0.3-0.1% OPHTH OINT 3.5 GM TUBE RIGHT EYE SCH (07:50)
[2020-06-04 08:18] VITALS: BP 143/87; PULSE 83; TEMP 98.4
[2020-06-04] MEDS: FLUTICASONE 110 MCG INHALER INHALATION SCH (08:48)
--- NOTE | 2020-06-04 11:12 | MR ---
EXAMINATION TYPE: MR brain wo/w con DATE OF EXAM: 06/04/2020 COMPARISON: HISTORY: Altered mental status, seizures, Chiari malformation CONTRAST: Performed utilizing 8.5 mL intravenous Gadavist gadolinium contrast. TECHNIQUE: Multiplanar, multiecho imaging on a 3.0 Jennifer magnet is performed through the brain. Stud y is performed within 24 hours of arrival to the hospital. The craniovertebral junction is normal. No tonsillar descent to suggest Arnold-Chiari malformation i s evident. The pituitary is normal. Diffusion-weighted imaging is performed. No abnormal hyperintensity is present to suggest an acute i ntracranial infarct or acute ischemic change. Signal within the brain is normal. Ventricles and sulci are appropriate for the patient age. Temporal lobes are symmetrical. No abnormal enhancement is evident. IMPRESSIONS: 1. Normal pre and postcontrast MRI brain. 2. No Chiari malformation
--- NOTE | 2020-06-04 12:25 | P.DS ---
Providers Date of admission: 05/29/20 15:54 Expected date of discharge: 06/04/20 Attending physician: Katt Payne DO Consults: 05/29/20 16:08 Consult Physician Routine Consulting Provider: Demetrius Siddiqui Consult Reason/Comments: seizure Do you want consulting provider notified?: Yes 05/31/20 10:45 Consult Physician Urgent Consulting Provider: Grabiel Figueroa Consult Reason/Comments: seroquel managment/medication management Do you want consulting provider notified?: Yes Primary care physician: [facility] Course: This is a 35-year-old female with a very complex past medical history noted below who presented to the emergency room after she had a seizure episode at home. Patient was evaluated in the ER and admitted to the hospital for further management of her medical problems noted below. 1. Seizure disorder with breakthrough seizure at home: Secondary to noncompliance with medications. Depakote and Vimpat levels on presentation almost undetectable. computed tomography scan of the head showed no acute findings. Depakote dose adjusted to 1000 mg 3 times daily and Vimpat 50 mg twice a day. She was seen and evaluated by neurology. EEG showed evidence of encephalopathy with no epileptiform activity. A repeat EEG and brain MRI ordered. MRI was completely normal with no evidence of Chiari malformation 2. Altered mental status, attributed to prolonged postictal state per neurology. Patient is maintained on high-dose gabapentin which was decreased to 400 mg 3 times a day. Metabolic encephalopathy ruled out. Lab work within acceptable range including thyroid function test. No evidence of UTI. Computed tomography scan of the head with no acute findings. 3. Delirium, seen and evaluated by psychiatry. Thought to be attributed to polypharmacy versus substance withdrawal. Started on Haldol. Haldol would be tapered down and discontinue 4. Vitamin B12 deficiency: Received 2 doses IM. Continue oral supplement. Also started on folic acid. 5. Chronic medical problems: Essential hypertension, hypothyroidism, hyperlipidemia, ulcerative colitis, Chronic pain syndrome Patient has a huge problem with polypharmacy and a long list of medications on presentation that was adjusted and a lot of her unnecessary medications were discontinued. She was advised to have a close follow-up with her PCP. I would recommend cautious prescribing different medication in particular opiate and benzodiazepine for this patient. Patient Condition at Discharge: Fair Plan - Discharge Summary New Discharge Prescriptions: New Divalproex ER [Depakote ER] 1,000 mg PO TID #180 tab.er.24h Folic Acid 1 mg PO DAILY #30 tab haloperidoL [Haldol] 1 mg PO BID #4 tab Lacosamide [Vimpat] 50 mg PO BID #60 tablet Cyanocobalamin [Vitamin B-12] 1,000 mcg PO DAILY #30 tab Continue Beclomethasone Dipropionate [Qvar 80 mcg] 2 puff INHALATION RT-DAILY Montelukast [Singulair] 10 mg PO DAILY Levothyroxine Sodium [Synthroid] 137 mcg PO DAILY Balsalazide Disodium 2,250 mg PO TID Lisinopril-Hctz 20-25 mg [Zestoretic 20-25] 2 tab PO DAILY Famotidine [Pepcid] 20 mg PO DAILY Hydrocortisone Cream [Hydrocortisone 2.5% Cream] 1 applic TOPICAL BID PRN PRN Reason: Rash Simvastatin [Zocor] 20 mg PO HS PARoxetine HCL 40 mg PO DAILY predniSONE 10 mg PO DAILY Albuterol Inhaler [Ventolin Hfa Inhaler] 2 puff INHALATION RT-QID PRN PRN Reason: Shortness Of Breath Changed Gabapentin [Neurontin] 400 mg PO TID #0 Discontinued QUEtiapine [SEROquel] 500 mg PO HS oxyCODONE-APAP 10-325MG [Percocet 10-325 mg] 1 tab PO TID Divalproex Sodium [Divalproex Sodium ER] 2,000 mg PO BID QUEtiapine [SEROquel] 100 mg PO BID@0800,1200 Ondansetron [Zofran] 8 mg PO Q8HR PRN PRN Reason: Nausea Lidocaine Patch 4% 1 patch TOPICAL DAILY PRN PRN Reason: Pain Phentermine HCl [Adipex-P] 37.5 mg PO DAILY LORazepam [Ativan] 0.5 mg PO BID tiZANidine HCL [Zanaflex] 4 - 8 mg PO Q8HR PRN PRN Reason: Muscle Spasm Butalb/Acetaminophen/Caffeine [Fioricet 50-325-40] 1 tab PO BID PRN PRN Reason: Migraine Headache Lacosamide [Vimpat] 50 mg PO DIRECTED Amitriptyline HCl 25 mg PO HS Discharge Medication List Beclomethasone Dipropionate [Qvar 80 mcg] 2 puff INHALATION RT-DAILY 02/07/18 [History] Levothyroxine Sodium [Synthroid] 137 mcg PO DAILY 08/07/18 [History] Montelukast [Singulair] 10 mg PO DAILY 08/07/18 [History] Balsalazide Disodium 2,250 mg PO TID 11/16/19 [History] Lisinopril-Hctz 20-25 mg [Zestoretic 20-25] 2 tab PO DAILY 11/16/19 [History] Famotidine [Pepcid] 20 mg PO DAILY 03/06/20 [History] Hydrocortisone Cream [Hydrocortisone 2.5% Cream] 1 applic TOPICAL BID PRN 03/06/20 [History] PARoxetine HCL 40 mg PO DAILY 03/06/20 [History] Simvastatin [Zocor] 20 mg PO HS 03/06/20 [History] Albuterol Inhaler [Ventolin Hfa Inhaler] 2 puff INHALATION RT-QID PRN 05/29/20 [History] predniSONE 10 mg PO DAILY 05/29/20 [History] Cyanocobalamin [Vitamin B-12] 1,000 mcg PO DAILY #30 tab 06/04/20 [Rx] Divalproex ER [Depakote ER] 1,000 mg PO TID #180 tab.er.24h 06/04/20 [Rx] Folic Acid 1 mg PO DAILY #30 tab 06/04/20 [Rx] Gabapentin [Neurontin] 400 mg PO TID #0 06/04/20 [Rx] Lacosamide [Vimpat] 50 mg PO BID #60 tablet 06/04/20 [Rx] haloperidoL [Haldol] 1 mg PO BID #4 tab 06/04/20 [Rx] Follow up Appointment(s)/Referral(s): Joan Meeks MD [Primary Care Provider] - 1-2 days Discharge Disposition: HOME SELF-CARE
[2020-06-04 15:13] VITALS: BMI 27.7
[2020-06-05] MEDS ORDERED: haloperidoL 1 MG TAB PO SCH (09:00)
[2020-06-07] MEDS ORDERED: haloperidoL 1 MG TAB PO SCH (09:00)
== END 2020-06-04 15:25 | disposition home or self-care (01) | DRG 101 ==
LOC: EC 10:40 → 3SCARD 15:54 → 4SSUR 06-03 12:46
PROVIDERS: ADMIT Internal Medicine; ATTEND Internal Medicine
DX: R56.1 Post traumatic seizures (principal); K50.90 Crohn's disease, unspecified, without complications; F11.23 Opioid dependence with withdrawal; E03.9 Hypothyroidism, unspecified; F31.9 Bipolar disorder, unspecified; T42.6X6A Underdosing of other antiepileptic and sedative-hypnotic drugs, initial encounter; Z91.128 Patient's intentional underdosing of medication regimen for other reason; Z20.822 Contact with and (suspected) exposure to COVID-19; I10 Essential (primary) hypertension; E78.5 Hyperlipidemia, unspecified; E53.8 Deficiency of other specified B group vitamins; G43.909 Migraine, unspecified, not intractable, without status migrainosus; J45.909 Unspecified asthma, uncomplicated; M79.7 Fibromyalgia; K21.9 Gastro-esophageal reflux disease without esophagitis; G89.4 Chronic pain syndrome; M54.9 Dorsalgia, unspecified; K57.90 Diverticulosis of intestine, part unspecified, without perforation or abscess without bleeding; G56.00 Carpal tunnel syndrome, unspecified upper limb; F43.10 Post-traumatic stress disorder, unspecified; F12.10 Cannabis abuse, uncomplicated; F17.210 Nicotine dependence, cigarettes, uncomplicated; Z79.51 Long term (current) use of inhaled steroids; Z79.890 Hormone replacement therapy; Z79.899 Other long term (current) drug therapy; Z90.49 Acquired absence of other specified parts of digestive tract; Z90.89 Acquired absence of other organs; Z87.19 Personal history of other diseases of the digestive system; Z87.39 Personal history of other diseases of the musculoskeletal system and connective tissue; Z86.2 Personal history of diseases of the blood and blood-forming organs and certain disorders involving the immune mechanism; Z98.890 Other specified postprocedural states; Z88.1 Allergy status to other antibiotic agents; Z88.5 Allergy status to narcotic agent; Z88.2 Allergy status to sulfonamides; Z88.8 Allergy status to other drugs, medicaments and biological substances; Z83.3 Family history of diabetes mellitus; Z83.49 Family history of other endocrine, nutritional and metabolic diseases; Z82.3 Family history of stroke; Z83.2 Family history of diseases of the blood and blood-forming organs and certain disorders involving the immune mechanism; Z82.61 Family history of arthritis; Z80.9 Family history of malignant neoplasm, unspecified
CPT/HCPCS: 36415; 70450; 70553; 74022; 80048; 80053; 80143; 80164; 80165; 80171; 80179; 80235; 80306; 80320; 81003; 81025; 82607; 82746; 83735; 84443; 85025; 85027; 87635; 93005; 94640; 95816; 96361; 96374; 96375; 96376; 99285

== ENCOUNTER 2020-06-09 13:38 | Emergency (ER) | payer OTHER ==
[2020-06-09 13:49] VITALS: TEMP 98
[2020-06-09] MEDS ORDERED: HYDROmorphone 0.5 MG/0.5 ML SYRINGE IM STA (14:08)
--- NOTE | 2020-06-09 14:17 | ED ---
Lower Extremity Injury HPI - General Chief Complaint: Extremity Injury, Lower Stated Complaint: Seizure,Hypertension Time Seen by Provider: 06/09/20 14:00 Source: patient, EMS, RN notes reviewed Mode of arrival: EMS Limitations: no limitations - History of Present Illness Initial Comments: Patient is a 35-year-old female that presents to the emergency department complaining of right lower extremity pain. She noticed that she does have a history of orthopedic work done involving hardware still in place. She notes that the pain is about a 9-10 out of 10 currently unrelieved with pain medication. She notes that she recently just finished her Percocet and has a follow-up appointment with her pain medicine doctor on the . She was in no apparent distress or pain while sitting up in bed eating several Jell-O cups. She denied any new injury or trauma to the right leg, weakness numbness tingling fever fatigue chills chest pain shortness of breath headache nausea vomiting diarrhea constipation. - Related Data Home Medications Medication Instructions Recorded Confirmed Beclomethasone Dipropionate [Qvar 2 puff INHALATION RT-DAILY 02/07/18 05/29/20 80 mcg] Levothyroxine Sodium [Synthroid] 137 mcg PO DAILY 08/07/18 05/29/20 Montelukast [Singulair] 10 mg PO DAILY 08/07/18 05/29/20 Balsalazide Disodium 2,250 mg PO TID 11/16/19 05/29/20 Lisinopril-Hctz 20-25 mg 2 tab PO DAILY 11/16/19 05/29/20 [Zestoretic 20-25] Famotidine [Pepcid] 20 mg PO DAILY 03/06/20 05/29/20 Hydrocortisone Cream 1 applic TOPICAL BID PRN 03/06/20 05/29/20 [Hydrocortisone 2.5% Cream] PARoxetine HCL 40 mg PO DAILY 03/06/20 05/29/20 Simvastatin [Zocor] 20 mg PO HS 03/06/20 05/29/20 Albuterol Inhaler [Ventolin Hfa 2 puff INHALATION RT-QID PRN 05/29/20 05/29/20 Inhaler] predniSONE 10 mg PO DAILY 05/29/20 05/29/20 Previous Rx's Medication Instructions Recorded Cyanocobalamin [Vitamin B-12] 1,000 mcg PO DAILY #30 tab 06/04/20 Divalproex ER [Depakote ER] 1,000 mg PO TID #180 tab.er.24h 06/04/20 Folic Acid 1 mg PO DAILY #30 tab 06/04/20 Gabapentin [Neurontin] 400 mg PO TID #0 06/04/20 Lacosamide [Vimpat] 50 mg PO BID #60 tablet 06/04/20 haloperidoL [Haldol] 1 mg PO BID #4 tab 06/04/20 Allergies Allergy/AdvReac Type Severity Reaction Status Date / Time dicyclomine [From Bentyl] Allergy Severe Hallucinati Verified 06/09/20 13:50 ons granisetron HCl [From Kytril] Allergy Severe Anaphylaxis Verified 06/09/20 13:50 azithromycin Allergy Rash/Hives Verified 06/09/20 13:50 baclofen Allergy Rash/Hives Verified 06/09/20 13:50 butorphanol [From Stadol] Allergy Rash/Hives Verified 06/09/20 13:50 butorphanol tartrate Allergy Rash/Hives Verified 06/09/20 13:50 [From Stadol] Cephalosporins Allergy Rash/Hives Verified 06/09/20 13:50 cyclobenzaprine Allergy Unknown Verified 06/09/20 13:50 [From Flexeril] dicloxacillin Allergy Rash/Hives Verified 06/09/20 13:50 granisetron [From Kytril] Allergy Anaphylaxis Verified 06/09/20 13:50 ketorolac Allergy Rash/Hives Verified 06/09/20 13:50 ketorolac tromethamine Allergy Rash/Hives Verified 06/09/20 13:50 [From Toradol] meperidine Allergy Unknown Verified 06/09/20 13:50 meperidine HCl [From Demerol] Allergy Swelling Verified 06/09/20 13:50 morphine Allergy Unknown Verified 06/09/20 13:50 pregabalin [From Lyrica] Allergy Unknown Verified 06/09/20 13:50 risperidone [From Risperdal] Allergy Dyspnea Verified 06/09/20 13:50 sulfamethoxazole Allergy Rash/Hives Verified 06/09/20 13:50 [From Bactrim] trimethoprim [From Bactrim] Allergy Rash/Hives Verified 06/09/20 13:50 codeine AdvReac Vomiting & Verified 06/09/20 13:50 Headache methylprednisolone AdvReac Vomiting & Verified 06/09/20 13:50 [From Medrol] Headache Review of Systems ROS Statement: Those systems with pertinent positive or pertinent negative responses have been documented in the HPI. ROS Other: All systems not noted in ROS Statement are negative. Past Medical History Past Medical History: Asthma, Fibromyalgia, GERD/Reflux, Hypertension, Neurologic Disorder, Seizure Disorder, Thyroid Disorder Additional Past Medical History / Comment(s): crohns disease, diverticulosis, ibs, carpal tunnel, anemia, chronic back pain , migraines, pinched nerves, chronic colitis. History of Any Multi-Drug Resistant Organisms: None Reported Past Surgical History: Adenoidectomy, Appendectomy, Cholecystectomy, Orthopedic Surgery, Tonsillectomy Additional Past Surgical History / Comment(s): EGD/colonoscopy, right ankle surgery Past Anesthesia/Blood Transfusion Reactions: No Reported Reaction Additional Past Anesthesia/Blood Transfusion Reaction / Comment(s): hallucinations Past Psychological History: Anxiety, Bipolar, Depression, PTSD Smoking Status: Current every day smoker Past Alcohol Use History: None Reported Past Drug Use History: None Reported - Past Family History Father Family Medical History: Diabetes Mellitus, Hyperlipidemia Mother Family Medical History: Cancer, CVA/TIA, Deep Vein Thrombosis (DVT), Osteoarthritis (OA), Thyroid Disorder Additional Family Medical History / Comment(s): Extensive tattoos throughout body General Exam Limitations: no limitations General appearance: alert, in no apparent distress Head exam: Present: atraumatic, normocephalic, normal inspection Eye exam: Present: normal appearance, PERRL, EOMI. Absent: scleral icterus, conjunctival injection, periorbital swelling Neck exam: Present: normal inspection. Absent: tenderness, meningismus, lymphadenopathy Respiratory exam: Present: normal lung sounds bilaterally. Absent: respiratory distress, wheezes, rales, rhonchi, stridor Cardiovascular Exam: Present: regular rate, normal rhythm, normal heart sounds. Absent: systolic murmur, diastolic murmur, rubs, gallop, clicks GI/Abdominal exam: Present: soft, normal bowel sounds. Absent: distended, tenderness, guarding, rebound, rigid Extremities exam: Present: normal inspection, normal capillary refill. Absent: full ROM (Right lower extremity decreased range of motion due to orthopedic boot on right lower extremity.), tenderness, pedal edema, joint swelling, calf tenderness Neurological exam: Present: alert, oriented X3, CN II-XII intact Psychiatric exam: Present: normal affect, normal mood Skin exam: Present: warm, dry, intact, normal color. Absent: rash Course Vital Signs 06/09/20 13:41 Temperature 98 F Pulse Rate 107 H Respiratory 16 Rate Blood Pressure 138/122 O2 Sat by Pulse 99 Oximetry Medical Decision Making - Medical Decision Making 35-year-old male complaining of right lower extremity pain. 0.5 mg of Dilaudid, right tib-fib x-ray ordered. Right tib-fib x-ray: Unremarkable for any new fracture. Case discussed with Dr. Arriaza, decided patient could discharge home with close follow-up to orthopedist. - Radiology Data Radiology results: report reviewed, image reviewed Right tib-fib x-ray: Cannot exclude fracture through the distal metaphysis of the right tibia although the fixation plates appear intact and stable. Disposition Clinical Impression: Pain in right lower leg Disposition: HOME SELF-CARE Condition: Stable Instructions (If sedation given, give patient instructions): Leg Pain (ED) Additional Instructions: Please return to the Emergency Department if symptoms worsen or any other concerns. Follow-up with primary care in 2-4 days. Follow-up with orthopedist as soon as possible. Follow-up with pain medicine DrLetitia as soon as possible possible to refill at home medications. Avoid any strenuous activity, rest ice compress elevate. Continue to take at home medications as prescribed. Is patient prescribed a controlled substance at d/c from ED?: No Referrals: Joan Meeks MD [Primary Care Provider] - 1-2 days Joe Parr MD [STAFF PHYSICIAN] - 1-2 days Time of Disposition: 15:03
--- NOTE | 2020-06-09 14:57 | XR ---
Right leg 2 views of the right leg submitted on 4 images and correlated to previous exam dated 04/01/2018. HISTORY: Leg pain Patient shows post operative reduction internal fixation changes as on prior exam of the distal tibia and fibula, the exam shows a similar appearance. Alignment is stable. Some lucency is present along the distal tibia metaphysis on the frontal view which may be related to patient's prior injury, visua lization at this level may be due to slight differences in technique. There is no dislocation. There is soft tissue swelling present. IMPRESSION: Cannot exclude refracture through the distal metaphysis of the right tibia although the f ixation plates appear intact and stable
[2020-06-09] MEDS ORDERED: ACET/COD 300 MG/30 MG STARTER PACK 6 TAB BTL PO STA (15:10)
[2020-06-09 15:23] VITALS: BP 142/98; PULSE 98; RESP 18
== END 2020-06-09 15:23 | disposition home or self-care (01) ==
LOC: EC 13:38
DX: M79.661 Pain in right lower leg (principal); I10 Essential (primary) hypertension; F41.9 Anxiety disorder, unspecified; G40.909 Epilepsy, unspecified, not intractable, without status epilepticus; J45.909 Unspecified asthma, uncomplicated; M79.7 Fibromyalgia; F17.200 Nicotine dependence, unspecified, uncomplicated; G43.909 Migraine, unspecified, not intractable, without status migrainosus; G58.9 Mononeuropathy, unspecified; F43.10 Post-traumatic stress disorder, unspecified; F31.9 Bipolar disorder, unspecified; K21.9 Gastro-esophageal reflux disease without esophagitis; K50.90 Crohn's disease, unspecified, without complications; Z87.19 Personal history of other diseases of the digestive system; D64.9 Anemia, unspecified; G89.29 Other chronic pain; M54.9 Dorsalgia, unspecified; Z79.51 Long term (current) use of inhaled steroids; Z79.890 Hormone replacement therapy; Z79.899 Other long term (current) drug therapy; Z79.52 Long term (current) use of systemic steroids; Z88.5 Allergy status to narcotic agent; Z88.0 Allergy status to penicillin; Z88.8 Allergy status to other drugs, medicaments and biological substances; Z88.1 Allergy status to other antibiotic agents; Z88.2 Allergy status to sulfonamides; Z90.49 Acquired absence of other specified parts of digestive tract; Z83.3 Family history of diabetes mellitus; Z83.49 Family history of other endocrine, nutritional and metabolic diseases; Z82.3 Family history of stroke; Z80.9 Family history of malignant neoplasm, unspecified; Z82.49 Family history of ischemic heart disease and other diseases of the circulatory system; Z82.61 Family history of arthritis
CPT/HCPCS: 73590; J1170; 96372; 99284

== ENCOUNTER 2020-07-14 18:37 | Emergency (ER) | payer OTHER ==
[2020-07-14 18:44] VITALS: RESP 16; TEMP 98.5
[2020-07-14] MEDS ORDERED: HYDROmorphone 0.5 MG/0.5 ML SYRINGE IVP STA (20:05)
[2020-07-14] MEDS ORDERED: METOCLOPRAMIDE 5 MG/ML 2 ML VIAL IVP STA (20:05)
[2020-07-14] MEDS ORDERED: SODIUM CHLORIDE 0.9% 1,000 ML IV ONE (20:06)
[2020-07-14] MEDS ORDERED: diphenhydrAMINE 50 MG/ML 1 ML VIAL IVP STA (20:06)
[2020-07-14 20:20] LABS: Anisocytosis Slight; Basophils % (A) 0 %; Eosinophils # (A) 0.5 k/uL (0-0.7); Eosinophils % (A) 4 %; HCT 30.5 % (34.0-46.0); HGB 10.3 gm/dL (11.4-16.0); Hypochromasia Slight; Lymphocytes # (A) 5.1 k/uL (1.0-4.8); Lymphocytes % (A) 46 %; MCH 26.2 pg (25.0-35.0); MCHC 33.6 g/dL (31.0-37.0); Microcytosis Slight; Monocytes % (A) 9 %; Neutrophils # (A) 4.3 k/uL (1.3-7.7); Neutrophils % (A) 39 %; Platelet Count 466 k/uL (150-450); RBC 3.91 m/uL (3.80-5.40); RDW 16.2 % (11.5-15.5); WBC 11.1 k/uL (3.8-10.6)
[2020-07-14 20:25] LABS: Appearance,Urine Clear (Clear); Bilirubin,Urine Negative (Negative); Blood,Urine Negative (Negative); Color,Urine Light Yellow; Glucose,Urine (UA) Negative (Negative); Ketones,Urine Negative (Negative); Leukocyte Esterase,Urine Negative (Negative); Nitrite,Urine Negative (Negative); PH, Urine 6.5 (5.0-8.0); Protein,Urine Negative (Negative); Urobilinogen,Urine <2.0 mg/dL (<2.0)
[2020-07-14 20:28] LABS: ALT 10 U/L (4-34); AST 16 U/L (14-36); African American GFR (CKD) >90 (>60 ml/min/1.73 sqM); Albumin 3.4 g/dL (3.5-5.0); Alkaline Phosphatase 126 U/L (38-126); Amylase 106 U/L (30-110); Anion Gap 10 mmol/L; Blood Urea Nitrogen 7 mg/dL (7-17); Carbon Dioxide 21 mmol/L (22-30); Chloride 109 mmol/L (98-107); Glucose 114 mg/dL (74-99); Lipase 154 U/L (23-300); Non-African American GFR(CKD) >90 (>60 ml/min/1.73 sqM); Potassium 4.2 mmol/L (3.5-5.1); Sodium 140 mmol/L (137-145); Total Bilirubin 0.2 mg/dL (0.2-1.3); Total Protein 6.4 g/dL (6.3-8.2)
--- NOTE | 2020-07-14 20:28 | ED ---
General Adult HPI - General Chief complaint: Abdominal Pain Stated complaint: GI Bleed Time Seen by Provider: 07/14/20 19:07 Source: patient Mode of arrival: EMS Limitations: no limitations - History of Present Illness Initial comments: 35-year-old female patient presents to the emergency department today for evaluation of generalized abdominal pain worse over the right side of her abdomen. Also reports bloody bowel movement earlier today. States her clots present. States she has been nauseated and has had 2 episodes of vomiting. Denies any fever or chills. Does have a history of Crohn's and chronic colitis. Sees Dr. Pan for management of her symptoms. They symptoms started yesterday and worsened today. Denies use of anticoagulant or antiplatelet medications. Denies recent travel or sick contacts. Denies chance of . Patient denies any recent rash, cough, shortness of breath, chest pain, back pain, numbness, tingling, dizziness, weakness, hematuria, dysuria, urinary urgency, urinary frequency, headache, visual changes, or any other complaints. - Related Data Home Medications Medication Instructions Recorded Confirmed Beclomethasone Dipropionate [Qvar 2 puff INHALATION RT-DAILY 02/07/18 07/14/20 80 mcg] Levothyroxine Sodium [Synthroid] 137 mcg PO DAILY 08/07/18 07/14/20 Montelukast [Singulair] 10 mg PO DAILY 08/07/18 07/14/20 Balsalazide Disodium 2,250 mg PO TID 11/16/19 07/14/20 Lisinopril-Hctz 20-25 mg 2 tab PO DAILY 11/16/19 07/14/20 [Zestoretic 20-25] Famotidine [Pepcid] 20 mg PO BID 03/06/20 07/14/20 Hydrocortisone Cream 1 applic TOPICAL BID PRN 03/06/20 07/14/20 [Hydrocortisone 2.5% Cream] PARoxetine HCL 40 mg PO DAILY 03/06/20 07/14/20 Simvastatin [Zocor] 20 mg PO HS 03/06/20 07/14/20 Albuterol Inhaler [Ventolin Hfa 2 puff INHALATION RT-QID PRN 05/29/20 07/14/20 Inhaler] Bacitracin Zinc Oint 1 applic TOPICAL BID PRN 07/14/20 07/14/20 Divalproex [Depakote] 1,000 mg PO TID 07/14/20 07/14/20 Gentamicin 0.3% Ophth Soln 1 drop RIGHT EYE Q4H 07/14/20 07/14/20 [Garamycin 0.3% Ophth Soln] Loratadine [Claritin] 10 mg PO DAILY 07/14/20 07/14/20 Ondansetron [Zofran] 4 mg PO Q6HR PRN 07/14/20 07/14/20 QUEtiapine [SEROquel] 400 mg PO HS 07/14/20 07/14/20 oxyCODONE-APAP 10-325MG [Percocet 1 tab PO Q6H PRN 07/14/20 07/14/20 10-325 mg] Previous Rx's Medication Instructions Recorded Cyanocobalamin [Vitamin B-12] 1,000 mcg PO DAILY #30 tab 06/04/20 Folic Acid 1 mg PO DAILY #30 tab 06/04/20 Gabapentin [Neurontin] 400 mg PO TID #0 06/04/20 Lacosamide [Vimpat] 50 mg PO BID #60 tablet 06/04/20 haloperidoL [Haldol] 1 mg PO BID #4 tab 06/04/20 predniSONE 50 mg PO DAILY #5 tablet 07/14/20 Allergies Allergy/AdvReac Type Severity Reaction Status Date / Time dicyclomine [From Bentyl] Allergy Severe Hallucinati Verified 06/09/20 13:50 ons granisetron HCl [From Kytril] Allergy Severe Anaphylaxis Verified 06/09/20 13:50 azithromycin Allergy Rash/Hives Verified 06/09/20 13:50 baclofen Allergy Rash/Hives Verified 06/09/20 13:50 butorphanol [From Stadol] Allergy Rash/Hives Verified 06/09/20 13:50 butorphanol tartrate Allergy Rash/Hives Verified 06/09/20 13:50 [From Stadol] Cephalosporins Allergy Rash/Hives Verified 06/09/20 13:50 cyclobenzaprine Allergy Unknown Verified 06/09/20 13:50 [From Flexeril] dicloxacillin Allergy Rash/Hives Verified 06/09/20 13:50 granisetron [From Kytril] Allergy Anaphylaxis Verified 06/09/20 13:50 ketorolac Allergy Rash/Hives Verified 06/09/20 13:50 ketorolac tromethamine Allergy Rash/Hives Verified 06/09/20 13:50 [From Toradol] meperidine Allergy Unknown Verified 06/09/20 13:50 meperidine HCl [From Demerol] Allergy Swelling Verified 06/09/20 13:50 morphine Allergy Unknown Verified 06/09/20 13:50 pregabalin [From Lyrica] Allergy Unknown Verified 06/09/20 13:50 risperidone [From Risperdal] Allergy Dyspnea Verified 06/09/20 13:50 sulfamethoxazole Allergy Rash/Hives Verified 06/09/20 13:50 [From Bactrim] trimethoprim [From Bactrim] Allergy Rash/Hives Verified 06/09/20 13:50 methylprednisolone AdvReac Vomiting & Verified 06/09/20 13:50 [From Medrol] Headache Review of Systems ROS Statement: Those systems with pertinent positive or pertinent negative responses have been documented in the HPI. ROS Other: All systems not noted in ROS Statement are negative. Past Medical History Past Medical History: Asthma, Fibromyalgia, GERD/Reflux, Hypertension, Neurologic Disorder, Seizure Disorder, Thyroid Disorder Additional Past Medical History / Comment(s): crohns disease, diverticulosis, ibs, carpal tunnel, anemia, chronic back pain , migraines, pinched nerves, chronic colitis. History of Any Multi-Drug Resistant Organisms: None Reported Past Surgical History: Adenoidectomy, Appendectomy, Cholecystectomy, Orthopedic Surgery, Tonsillectomy Additional Past Surgical History / Comment(s): EGD/colonoscopy, right ankle surgery Past Anesthesia/Blood Transfusion Reactions: No Reported Reaction Additional Past Anesthesia/Blood Transfusion Reaction / Comment(s): hallucinations Past Psychological History: Anxiety, Bipolar, Depression, PTSD Smoking Status: Current every day smoker Past Alcohol Use History: None Reported Past Drug Use History: None Reported - Past Family History Father Family Medical History: Diabetes Mellitus, Hyperlipidemia Mother Family Medical History: Cancer, CVA/TIA, Deep Vein Thrombosis (DVT), Osteoarthritis (OA), Thyroid Disorder Additional Family Medical History / Comment(s): Extensive tattoos throughout body General Exam Limitations: no limitations General appearance: alert, in no apparent distress, other (This is a well- developed, well-nourished adult female patient in no acute distress. Vital signs upon presentation are temperature 98.5F, pulse 107, respirations 16, blood pressure 132/93, pulse ox 98% on room air.) Eye exam: Present: normal appearance, PERRL, EOMI. Absent: scleral icterus, conjunctival injection, periorbital swelling ENT exam: Present: normal exam, normal oropharynx, mucous membranes moist Respiratory exam: Present: normal lung sounds bilaterally. Absent: respiratory distress, wheezes, rales, rhonchi, stridor Cardiovascular Exam: Present: regular rate, normal rhythm, normal heart sounds. Absent: systolic murmur, diastolic murmur, rubs, gallop, clicks GI/Abdominal exam: Present: soft, tenderness (Generalized, mid epigastric), normal bowel sounds. Absent: distended, guarding, rebound, rigid Neurological exam: Present: alert, oriented X3, CN II-XII intact Psychiatric exam: Present: normal affect, normal mood Skin exam: Present: warm, dry, intact, normal color. Absent: rash Course Vital Signs 07/14/20 07/14/20 18:41 21:46 Temperature 98.5 F Pulse Rate 107 H 91 Respiratory 16 16 Rate Blood Pressure 132/93 127/84 O2 Sat by Pulse 98 98 Oximetry Medical Decision Making - Medical Decision Making 35-year-old female patient presents to the emergency department today for e valuation of abdominal pain worsening since yesterday. Physical examination did reveal generalized abdominal tenderness worse over the midepigastric region. Labs reviewed and did reveal hemoglobin 10.3 down from and May. White blood cell count was 11.1, she has had a couple episodes of vomiting today this could be reactive. She is afebrile, vital signs. CT abdomen and pelvis was negative. KUB shows moderate to large colonic stool burden. I did discuss findings results with the patient. She declined enema. She'll be discharged with prescription for prednisone. Given a Tylenol for codeine starter pack and she is out of her Percocet at home. Return parameters were discussed in detail. She verbalizes understanding and agrees with this plan. Case discussed with my attending Dr. Burleson. - Lab Data Result diagrams: 07/14/20 20:07 07/14/20 20:07 Lab Results 07/14/20 07/14/20 07/14/20 Range/Units 20:07 20:07 20:07 WBC 11.1 H (3.8-10.6) k/uL RBC 3.91 (3.80-5.40) m/uL Hgb 10.3 L (11.4-16.0) gm/dL Hct 30.5 L (34.0-46.0) % MCV 78.0 L (80.0-100.0) fL MCH 26.2 (25.0-35.0) pg MCHC 33.6 (31.0-37.0) g/dL RDW 16.2 H (11.5-15.5) % Plt Count 466 H (150-450) k/uL MPV 7.0 Neutrophils % 39 % Lymphocytes % 46 % Monocytes % 9 % Eosinophils % 4 % Basophils % 0 % Neutrophils # 4.3 (1.3-7.7) k/uL Lymphocytes # 5.1 H (1.0-4.8) k/uL Monocytes # 1.0 (0-1.0) k/uL Eosinophils # 0.5 (0-0.7) k/uL Basophils # 0.0 (0-0.2) k/uL Hypochromasia Slight Anisocytosis Slight Microcytosis Slight Sodium 140 (137-145) mmol/L Potassium 4.2 (3.5-5.1) mmol/L Chloride 109 H (98-107) mmol/L Carbon Dioxide 21 L (22-30) mmol/L Anion Gap 10 mmol/L BUN 7 (7-17) mg/dL Creatinine 0.75 (0.52-1.04) mg/dL Est GFR (CKD-EPI)AfAm >90 (>60 ml/min/1.73 sqM) Est GFR (CKD-EPI)NonAf >90 (>60 ml/min/1.73 sqM) Glucose 114 H (74-99) mg/dL Calcium 9.0 (8.4-10.2) mg/dL Total Bilirubin 0.2 (0.2-1.3) mg/dL AST 16 (14-36) U/L ALT 10 (4-34) U/L Alkaline Phosphatase 126 (38-126) U/L Total Protein 6.4 (6.3-8.2) g/dL Albumin 3.4 L (3.5-5.0) g/dL Amylase 106 (30-110) U/L Lipase 154 (23-300) U/L Urine Color Light Yellow Urine Appearance Clear (Clear) Urine pH 6.5 (5.0-8.0) Ur Specific [place] 1.000 L (1.001-1.035) Urine Protein Negative (Negative) Urine Glucose (UA) Negative (Negative) Urine Ketones Negative (Negative) Urine Blood Negative (Negative) Urine Nitrite Negative (Negative) Urine Bilirubin Negative (Negative) Urine Urobilinogen <2.0 (<2.0) mg/dL Ur Leukocyte Esterase Negative (Negative) Urine HCG, Qual (Not Detectd) Stool Occult Blood (Negative) 07/14/20 07/14/20 Range/Units 20:07 20:20 WBC (3.8-10.6) k/uL RBC (3.80-5.40) m/uL Hgb (11.4-16.0) gm/dL Hct (34.0-46.0) % MCV (80.0-100.0) fL MCH (25.0-35.0) pg MCHC (31.0-37.0) g/dL RDW (11.5-15.5) % Plt Count (150-450) k/uL MPV Neutrophils % % Lymphocytes % % Monocytes % % Eosinophils % % Basophils % % Neutrophils # (1.3-7.7) k/uL Lymphocytes # (1.0-4.8) k/uL Monocytes # (0-1.0) k/uL Eosinophils # (0-0.7) k/uL Basophils # (0-0.2) k/uL Hypochromasia Anisocytosis Microcytosis Sodium (137-145) mmol/L Potassium (3.5-5.1) mmol/L Chloride (98-107) mmol/L Carbon Dioxide (22-30) mmol/L Anion Gap mmol/L BUN (7-17) mg/dL Creatinine (0.52-1.04) mg/dL Est GFR (CKD-EPI)AfAm (>60 ml/min/1.73 sqM) Est GFR (CKD-EPI)NonAf (>60 ml/min/1.73 sqM) Glucose (74-99) mg/dL Calcium (8.4-10.2) mg/dL Total Bilirubin (0.2-1.3) mg/dL AST (14-36) U/L ALT (4-34) U/L Alkaline Phosphatase (38-126) U/L Total Protein (6.3-8.2) g/dL Albumin (3.5-5.0) g/dL Amylase (30-110) U/L Lipase (23-300) U/L Urine Color Urine Appearance (Clear) Urine pH (5.0-8.0) Ur Specific [place] (1.001-1.035) Urine Protein (Negative) Urine Glucose (UA) (Negative) Urine Ketones (Negative) Urine Blood (Negative) Urine Nitrite (Negative) Urine Bilirubin (Negative) Urine Urobilinogen (<2.0) mg/dL Ur Leukocyte Esterase (Negative) Urine HCG, Qual Not Detected (Not Detectd) Stool Occult Blood Positive H (Negative) - Radiology Data Radiology results: report reviewed, image reviewed CT abdomen and pelvis is obtained. Impression by Dr. Santillan shows no acute abnormality. Incidental 1.7 cm KUB x-ray was obtained. Report was reviewed in its entirety. Impression by Dr. Santillan shows nonobstructive bowel gas pattern. Moderate to large colonic stool burden. Left adrenal nodule, may represent adenoma. Disposition Clinical Impression: Abdominal pain, GI bleed Disposition: HOME SELF-CARE Instructions (If sedation given, give patient instructions): Gastrointestinal Bleeding (ED), Abdominal Pain (ED) Additional Instructions: Take steroids as directed. Use pain medication sparingly as needed for symptom relief. Follow-up with her GI specialist for further evaluation in 1-2 days. Return for any new, worsening, or concerning symptoms. Prescriptions: predniSONE 50 mg PO DAILY #5 tablet Is patient prescribed a controlled substance at d/c from ED?: No Referrals: Joan Meeks MD [Primary Care Provider] - 1-2 days Time of Disposition: 22:19
--- NOTE | 2020-07-14 20:54 | XR ---
EXAM: Abdomen radiograph. HISTORY: Pain. TECHNIQUE: Upright AP view. COMPARISON: 05/30/2020. FINDINGS: There are nondilated bowel loops with a nonobstructive pattern. There is moderate to large amount of colonic stool. No pneumoperitoneum. Cholecystectomy clips are again seen. There are no pathologic kolby cifications. No acute osseous abnormality seen. IMPRESSION: Nonobstructive bowel gas pattern. Moderate to large colonic stool burden.
[2020-07-14] MEDS ORDERED: HYDROmorphone 1 MG/ML 1 ML SYRINGE IVP STA (21:11)
--- NOTE | 2020-07-14 21:59 | CT ---
EXAMINATION TYPE: CT abdomen pelvis w con DATE OF EXAM: 07/14/2020 COMPARISON: Same day radiograph. HISTORY: abdominal pain, Crohns CT DLP: 1454.5 mGycm Automated exposure control for dose reduction was used. TECHNIQUE: Helical acquisition of images was performed from the lung bases through the pelvis. CONTRAST: Performed without Oral Contrast and with IV Contrast, patient injected with 100 mL of Isovue 300. FINDINGS: LUNG BASES: No significant abnormality is appreciated. LIVER/GB: No significant abnormality is appreciated. Cholecystectomy. PANCREAS: No significant abnormality is seen. SPLEEN: No significant abnormality is seen. ADRENALS: Incidental 1.8 cm left adrenal nodule. Right adrenal nodule is within normal limits. KIDNEYS: No significant abnormality is seen. FREE AIR: No free air is visualized. RETROPERITONEAL ADENOPATHY: None visualized REPRODUCTIVE ORGANS: No significant abnormality is seen URINARY BLADDER: No significant abnormality is seen. PELVIC ADENOPATHY: None visualized. OSSEOUS STRUCTURES: No significant abnormality is seen. BOWEL: No significant abnormality is seen. OTHER: None IMPRESSION: NO ACUTE ABNORMALITY. Incidental 1.8 cm left adrenal nodule, may represent adenoma. Confirmation with dedicated adrenal pro tocol may be obtained as indicated.
[2020-07-14] MEDS ORDERED: ACET/COD 300 MG/30 MG STARTER PACK 6 TAB BTL PO STA (22:17)
[2020-07-14 22:32] VITALS: BP 126/75; PULSE 84
== END 2020-07-14 22:39 | disposition home or self-care (01) ==
LOC: EC 18:37
DX: K92.2 Gastrointestinal hemorrhage, unspecified (principal); F17.200 Nicotine dependence, unspecified, uncomplicated; F32.9 Major depressive disorder, single episode, unspecified; F41.9 Anxiety disorder, unspecified; I10 Essential (primary) hypertension; J45.909 Unspecified asthma, uncomplicated; K21.9 Gastro-esophageal reflux disease without esophagitis; Z79.899 Other long term (current) drug therapy; Z88.0 Allergy status to penicillin
CPT/HCPCS: 36415; 80053; 82150; 83690; 85025; 82272; 81003; 81025; 74018; 74177; 99285; 96374; 96375; 96376; 96361; J1200; J2765; J1170 ×2; Q9967

== ENCOUNTER 2020-08-10 19:53 | Observation (INO) | payer OTHER ==
[2020-08-10] MEDS ORDERED: LORazepam 2 MG/ML INJ IV STA ×2 (19:59→21:17)
[2020-08-10 20:17] LABS: Anisocytosis Slight; Basophils % (A) 0 %; Eosinophils # (A) 0.1 k/uL (0-0.7); Eosinophils % (A) 1 %; HCT 33.4 % (34.0-46.0); HGB 11.2 gm/dL (11.4-16.0); Lymphocytes # (A) 3.5 k/uL (1.0-4.8); Lymphocytes % (A) 29 %; MCH 25.4 pg (25.0-35.0); MCHC 33.4 g/dL (31.0-37.0); Mean Platelet Volume 6.4; Microcytosis Slight; Monocytes # (A) 0.9 k/uL (0-1.0); Monocytes % (A) 8 %; Neutrophils # (A) 7.5 k/uL (1.3-7.7); Neutrophils % (A) 61 %; Platelet Count 608 k/uL (150-450); RDW 17.6 % (11.5-15.5); WBC 12.2 k/uL (3.8-10.6)
--- NOTE | 2020-08-10 20:20 | XR ---
EXAMINATION TYPE: XR chest 1V portable DATE OF EXAM: 08/10/2020 COMPARISON: 05/30/2020 HISTORY: Seizure. TECHNIQUE: FINDINGS: Heart and mediastinum are normal. Lungs are clear. Diaphragm is normal. There are chest lani ds. Bony thorax is intact. IMPRESSION: Normal chest. No change.
--- NOTE | 2020-08-10 20:33 | ED ---
Seizure HPI - General Source: EMS Mode of arrival: EMS Limitations: no limitations <Marcell Hawkins - Last Filed: 08/10/20 21:20> <Alyssa Person - Last Filed: 08/10/20 22:30> - General Stated Complaint: Seizure Time Seen by Provider: 08/10/20 19:59 - History of Present Illness Initial Comments: Is a 35-year-old female with a history of seizures on Depakote and Vimpat who presents emergency department for possible seizure-like activity. The patient states that she has a constant urge to want to stare up into the right. She states that she's never had anything like this previously. Family stated that this has occurred it started about an hour prior to arrival. She was kept having episodes her suture off and to the right for 20 seconds or so. Patient denies any headache. No visual changes however just states that she feels like she needs sister up to the right. She states that she feels like her anxiety is very high right now. She denies any focal weakness or numbness in her extremities. No neck pain or stiffness. No fevers or chills. No cough or shortness of breath. No abdominal pain. Patient was recently admitted to the hospital for seizures in the past and seen neurology at that time. It was thought that her seizure breakthroughs were secondary to medication noncompliance. (Marcell Hawkins) - Related Data Home Medications Medication Instructions Recorded Confirmed Beclomethasone Dipropionate [Qvar 2 puff INHALATION RT-DAILY 02/07/18 07/14/20 80 mcg] Levothyroxine Sodium [Synthroid] 137 mcg PO DAILY 08/07/18 07/14/20 Montelukast [Singulair] 10 mg PO DAILY 08/07/18 07/14/20 Balsalazide Disodium 2,250 mg PO TID 11/16/19 07/14/20 Lisinopril-Hctz 20-25 mg 2 tab PO DAILY 11/16/19 07/14/20 [Zestoretic 20-25] Famotidine [Pepcid] 20 mg PO BID 03/06/20 07/14/20 Hydrocortisone Cream 1 applic TOPICAL BID PRN 03/06/20 07/14/20 [Hydrocortisone 2.5% Cream] PARoxetine HCL 40 mg PO DAILY 03/06/20 07/14/20 Simvastatin [Zocor] 20 mg PO HS 03/06/20 07/14/20 Albuterol Inhaler [Ventolin Hfa 2 puff INHALATION RT-QID PRN 05/29/20 07/14/20 Inhaler] Bacitracin Zinc Oint 1 applic TOPICAL BID PRN 07/14/20 07/14/20 Divalproex [Depakote] 1,000 mg PO TID 07/14/20 07/14/20 Gentamicin 0.3% Ophth Soln 1 drop RIGHT EYE Q4H 07/14/20 07/14/20 [Garamycin 0.3% Ophth Soln] Loratadine [Claritin] 10 mg PO DAILY 07/14/20 07/14/20 Ondansetron [Zofran] 4 mg PO Q6HR PRN 07/14/20 07/14/20 QUEtiapine [SEROquel] 400 mg PO HS 07/14/20 07/14/20 oxyCODONE-APAP 10-325MG [Percocet 1 tab PO Q6H PRN 07/14/20 07/14/20 10-325 mg] Previous Rx's Medication Instructions Recorded Cyanocobalamin [Vitamin B-12] 1,000 mcg PO DAILY #30 tab 06/04/20 Folic Acid 1 mg PO DAILY #30 tab 06/04/20 Gabapentin [Neurontin] 400 mg PO TID #0 06/04/20 Lacosamide [Vimpat] 50 mg PO BID #60 tablet 06/04/20 haloperidoL [Haldol] 1 mg PO BID #4 tab 06/04/20 predniSONE 50 mg PO DAILY #5 tablet 07/14/20 Allergies Allergy/AdvReac Type Severity Reaction Status Date / Time dicyclomine [From Bentyl] Allergy Severe Hallucinati Verified 06/09/20 13:50 ons granisetron HCl [From Kytril] Allergy Severe Anaphylaxis Verified 06/09/20 13:50 azithromycin Allergy Rash/Hives Verified 06/09/20 13:50 baclofen Allergy Rash/Hives Verified 06/09/20 13:50 butorphanol [From Stadol] Allergy Rash/Hives Verified 06/09/20 13:50 butorphanol tartrate Allergy Rash/Hives Verified 06/09/20 13:50 [From Stadol] Cephalosporins Allergy Rash/Hives Verified 06/09/20 13:50 cyclobenzaprine Allergy Unknown Verified 06/09/20 13:50 [From Flexeril] dicloxacillin Allergy Rash/Hives Verified 06/09/20 13:50 granisetron [From Kytril] Allergy Anaphylaxis Verified 06/09/20 13:50 ketorolac Allergy Rash/Hives Verified 06/09/20 13:50 ketorolac tromethamine Allergy Rash/Hives Verified 06/09/20 13:50 [From Toradol] meperidine Allergy Unknown Verified 06/09/20 13:50 meperidine HCl [From Demerol] Allergy Swelling Verified 06/09/20 13:50 morphine Allergy Unknown Verified 06/09/20 13:50 pregabalin [From Lyrica] Allergy Unknown Verified 06/09/20 13:50 risperidone [From Risperdal] Allergy Dyspnea Verified 06/09/20 13:50 sulfamethoxazole Allergy Rash/Hives Verified 06/09/20 13:50 [From Bactrim] trimethoprim [From Bactrim] Allergy Rash/Hives Verified 06/09/20 13:50 methylprednisolone AdvReac Vomiting & Verified 06/09/20 13:50 [From Medrol] Headache Review of Systems ROS Other: All systems not noted in ROS Statement are negative. <Marcell Hawkins - Last Filed: 08/10/20 21:20> ROS Other: All systems not noted in ROS Statement are negative. <Alyssa Person - Last Filed: 08/10/20 22:30> ROS Statement: Those systems with pertinent positive or pertinent negative responses have been documented in the HPI. Past Medical History Past Medical History: Asthma, Fibromyalgia, GERD/Reflux, Hypertension, Neurologic Disorder, Seizure Disorder, Thyroid Disorder Additional Past Medical History / Comment(s): crohns disease, diverticulosis, ib s, carpal tunnel, anemia, chronic back pain , migraines, pinched nerves, chronic colitis. History of Any Multi-Drug Resistant Organisms: None Reported Past Surgical History: Adenoidectomy, Appendectomy, Cholecystectomy, Orthopedic Surgery, Tonsillectomy Additional Past Surgical History / Comment(s): EGD/colonoscopy, right ankle surgery Past Anesthesia/Blood Transfusion Reactions: No Reported Reaction Additional Past Anesthesia/Blood Transfusion Reaction / Comment(s): hans busch Past Psychological History: Anxiety, Bipolar, Depression, PTSD Smoking Status: Current every day smoker Past Alcohol Use History: None Reported Past Drug Use History: None Reported - Past Family History Father Family Medical History: Diabetes Mellitus, Hyperlipidemia Mother Family Medical History: Cancer, CVA/TIA, Deep Vein Thrombosis (DVT), Osteoarthritis (OA), Thyroid Disorder Additional Family Medical History / Comment(s): Extensive tattoos throughout body <Marcell Hawkins - Last Filed: 08/10/20 21:20> General Exam Limitations: no limitations <Marcell Hawkins - Last Filed: 08/10/20 21:20> - General Exam Comments Initial Comments: Constitutional: Awake alert Appears comfortable Head: Normocephalic atraumatic Eyes: no conjunctival injection No scleral icterus EOMI, the patient will consistently gaze up into the right however can refocus her eyes at any point Neck: No JVD Supple Heart: Regular rate rhythm normal S1-S2 no murmurs Lungs: Clear to auscultation bilaterally No wheezing No rales Abdomen: Soft nondistended nontender Extremities: Non edematous DP pulses intact Radial pulses intact Neuro: A&Ox3, the patient does gaze up into the right at times however is speaking to me throughout the entire episodes. She has response to visual threat in all visual oden, extra ocular muscles are intact without any deviations, pupils are 3 mm reactive bilaterally, she has 5 out of 5 strength in upper and lower extremities bilaterally and sensation is intact, crowner's 2 through 12 are grossly intact as well No focal neurologic deficits Psych: Appropriate mood and affect (Marcell Hawkins) Course <Marcell Hawkins - Last Filed: 08/10/20 21:20> Vital Signs 08/10/20 19:55 Temperature 98.4 F Pulse Rate 102 H Respiratory 20 Rate Blood Pressure 151/103 O2 Sat by Pulse 97 Oximetry - Reevaluation(s) Reevaluation #1: 08/10/20 20:50 Re-evaluated the patient. She states she still feels like she has to move her eyes up and to the right. Ativan worked slightly. She does states she took Haldol this morning. Question she may be having mild dystonia. Will try benadryl. (Marcell Hawkins) Reevaluation #2: 08/10/20 20:53 EKG showing sinus tachycardia with a rate of 105. No abnormal ST segment changes or T-wave inversions. QTC is 41. Other intervals normal. No ectopy. (Marcell Hawkins) Reevaluation #3: 08/10/20 21:20 Pts care transitioned to Dr. Person. Pt states she feels slightly improved but still having persistent episodes of wanting to keep looking right and move her neck R. I really feel this is dystonia but she stated Benadryl has not helped. Will give 1 more dose of ativan. Dr. Person will re-eval and dispo as she feels appropriate. (Marcell Hawkins) Medical Decision Making - Lab Data Result diagrams: 08/10/20 20:09 08/10/20 20:09 <Marcell Hawkins - Last Filed: 08/10/20 21:20> - Lab Data Result diagrams: 08/10/20 20:09 08/10/20 20:09 <Alyssa Person - Last Filed: 08/10/20 22:30> - Medical Decision Making Patient was signed out to me from previous physician. She is reevaluated after she has a second dose of Ativan and continues to have symptoms. Because this the patient will be evaluated for neurology consultation for possible dystonic reaction. Patient agreed to this. I will hold the patient's antipsychotics. Patient is currently awaiting a bed on the floor (Alyssa Person) - Lab Data Lab Results 08/10/20 08/10/20 08/10/20 Range/Units 20:09 20:09 20:09 WBC 12.2 H (3.8-10.6) k/uL RBC 4.40 (3.80-5.40) m/uL Hgb 11.2 L (11.4-16.0) gm/dL Hct 33.4 L (34.0-46.0) % MCV 76.0 L (80.0-100.0) fL MCH 25.4 (25.0-35.0) pg MCHC 33.4 (31.0-37.0) g/dL RDW 17.6 H (11.5-15.5) % Plt Count 608 H (150-450) k/uL MPV 6.4 Neutrophils % 61 % Lymphocytes % 29 % Monocytes % 8 % Eosinophils % 1 % Basophils % 0 % Neutrophils # 7.5 (1.3-7.7) k/uL Lymphocytes # 3.5 (1.0-4.8) k/uL Monocytes # 0.9 (0-1.0) k/uL Eosinophils # 0.1 (0-0.7) k/uL Basophils # 0.0 (0-0.2) k/uL Anisocytosis Slight Microcytosis Slight Sodium (137-145) mmol/L Potassium (3.5-5.1) mmol/L Chloride (98-107) mmol/L Carbon Dioxide (22-30) mmol/L Anion Gap mmol/L BUN (7-17) mg/dL Creatinine (0.52-1.04) mg/dL Est GFR (CKD-EPI)AfAm (>60 ml/min/1.73 sqM) Est GFR (CKD-EPI)NonAf (>60 ml/min/1.73 sqM) Glucose (74-99) mg/dL Calcium (8.4-10.2) mg/dL Total Bilirubin (0.2-1.3) mg/dL AST (14-36) U/L ALT (4-34) U/L Alkaline Phosphatase (38-126) U/L Total Protein (6.3-8.2) g/dL Albumin (3.5-5.0) g/dL Urine Color Yellow Urine Appearance Clear (Clear) Urine pH 7.0 (5.0-8.0) Ur Specific [place] 1.009 (1.001-1.035) Urine Protein Negative (Negative) Urine Glucose (UA) Negative (Negative) Urine Ketones Negative (Negative) Urine Blood Negative (Negative) Urine Nitrite Negative (Negative) Urine Bilirubin Negative (Negative) Urine Urobilinogen <2.0 (<2.0) mg/dL Ur Leukocyte Esterase Negative (Negative) Urine HCG, Qual Not Detected (Not Detectd) Urine Opiates Screen Not Detected (NotDetected) Ur Oxycodone Screen Detected H (NotDetected) Urine Methadone Screen Not Detected (NotDetected) Ur Propoxyphene Screen Not Detected (NotDetected) Ur Barbiturates Screen Not Detected (NotDetected) Valproic Acid ug/mL U Tricyclic Antidepress Detected H (NotDetected) Ur Phencyclidine Scrn Not Detected (NotDetected) Ur Amphetamines Screen Not Detected (NotDetected) U Methamphetamines Scrn Not Detected (NotDetected) U Benzodiazepines Scrn Detected H (NotDetected) Urine Cocaine Screen Not Detected (NotDetected) U Marijuana (THC) Screen Detected H (NotDetected) Serum Alcohol mg/dL 08/10/20 Range/Units 20:09 WBC (3.8-10.6) k/uL RBC (3.80-5.40) m/uL Hgb (11.4-16.0) gm/dL Hct (34.0-46.0) % MCV (80.0-100.0) fL MCH (25.0-35.0) pg MCHC (31.0-37.0) g/dL RDW (11.5-15.5) % Plt Count (150-450) k/uL MPV Neutrophils % % Lymphocytes % % Monocytes % % Eosinophils % % Basophils % % Neutrophils # (1.3-7.7) k/uL Lymphocytes # (1.0-4.8) k/uL Monocytes # (0-1.0) k/uL Eosinophils # (0-0.7) k/uL Basophils # (0-0.2) k/uL Anisocytosis Microcytosis Sodium 138 (137-145) mmol/L Potassium 4.7 (3.5-5.1) mmol/L Chloride 107 (98-107) mmol/L Carbon Dioxide 19 L (22-30) mmol/L Anion Gap 12 mmol/L BUN 6 L (7-17) mg/dL Creatinine 0.69 (0.52-1.04) mg/dL Est GFR (CKD-EPI)AfAm >90 (>60 ml/min/1.73 sqM) Est GFR (CKD-EPI)NonAf >90 (>60 ml/min/1.73 sqM) Glucose 115 H (74-99) mg/dL Calcium 9.5 (8.4-10.2) mg/dL Total Bilirubin 0.4 (0.2-1.3) mg/dL AST 27 (14-36) U/L ALT 12 (4-34) U/L Alkaline Phosphatase 101 (38-126) U/L Total Protein 7.3 (6.3-8.2) g/dL Albumin 4.0 (3.5-5.0) g/dL Urine Color Urine Appearance (Clear) Urine pH (5.0-8.0) Ur Specific [place] (1.001-1.035) Urine Protein (Negative) Urine Glucose (UA) (Negative) Urine Ketones (Negative) Urine Blood (Negative) Urine Nitrite (Negative) Urine Bilirubin (Negative) Urine Urobilinogen (<2.0) mg/dL Ur Leukocyte Esterase (Negative) Urine HCG, Qual (Not Detectd) Urine Opiates Screen (NotDetected) Ur Oxycodone Screen (NotDetected) Urine Methadone Screen (NotDetected) Ur Propoxyphene Screen (NotDetected) Ur Barbiturates Screen (NotDetected) Valproic Acid 64.4 ug/mL U Tricyclic Antidepress (NotDetected) Ur Phencyclidine Scrn (NotDetected) Ur Amphetamines Screen (NotDetected) U Methamphetamines Scrn (NotDetected) U Benzodiazepines Scrn (NotDetected) Urine Cocaine Screen (NotDetected) U Marijuana (THC) Screen (NotDetected) Serum Alcohol <10 mg/dL Disposition <Marcell Hawkins - Last Filed: 08/10/20 21:20> Is patient prescribed a controlled substance at d/c from ED?: No Decision to Admit Reason: Admit from EC Decision Date: 08/10/20 Decision Time: 22:25 <Alyssa Person - Last Filed: 08/10/20 22:30> Clinical Impression: Dystonic drug reaction Disposition: ADMITTED IP TO THIS [facility] Condition: Stable Referrals: Joan Meeks MD [Primary Care Provider] - 1-2 days
[2020-08-10 20:46] LABS: ALT 12 U/L (4-34); AST 27 U/L (14-36); African American GFR (CKD) >90 (>60 ml/min/1.73 sqM); Alcohol <10 mg/dL; Alkaline Phosphatase 101 U/L (38-126); Anion Gap 12 mmol/L; Blood Urea Nitrogen 6 mg/dL (7-17); Calcium 9.5 mg/dL (8.4-10.2); Carbon Dioxide 19 mmol/L (22-30); Chloride 107 mmol/L (98-107); Glucose 115 mg/dL (74-99); Non-African American GFR(CKD) >90 (>60 ml/min/1.73 sqM); Potassium 4.7 mmol/L (3.5-5.1); Sodium 138 mmol/L (137-145); Total Bilirubin 0.4 mg/dL (0.2-1.3); Total Protein 7.3 g/dL (6.3-8.2)
[2020-08-10] MEDS ORDERED: diphenhydrAMINE 50 MG/ML 1 ML VIAL IVP STA (20:50)
[2020-08-10 20:51] LABS: Valproic Acid (Depakene) 64.4 ug/mL
[2020-08-10 20:56] LABS: Appearance,Urine Clear (Clear); Bilirubin,Urine Negative (Negative); Blood,Urine Negative (Negative); Color,Urine Yellow; Glucose,Urine (UA) Negative (Negative); Ketones,Urine Negative (Negative); Leukocyte Esterase,Urine Negative (Negative); Nitrite,Urine Negative (Negative); Protein,Urine Negative (Negative); Specific Gravity,Urine 1.009 (1.001-1.035); Urobilinogen,Urine <2.0 mg/dL (<2.0)
[2020-08-10 21:10] LABS: Amphetamine Screen,Urine Not Detected (NotDetected); Barbiturate Screen,Urine Not Detected (NotDetected); Benzodiazepines Screen,Urine Detected (NotDetected); Cocaine Screen,Urine Not Detected (NotDetected); Methadone Screen, Urine Not Detected (NotDetected); Opiate Screen,Urine Not Detected (NotDetected); Oxycodone Screen, Urine Detected (NotDetected); Phencyclidine Screen,Urine Not Detected (NotDetected); Tricyclic Antidepressant,Urine Detected (NotDetected); Urn Cannabinoid Scrn Detected (NotDetected)
[2020-08-10] MEDS ORDERED: NALOXONE 0.4 MG/ML 1 ML VIAL IV PRN (22:25)
[2020-08-11] MEDS: oxyCODONE-APAP 10-325MG 1 EACH TAB PO PRN ×3 (01:02→12:45)
[2020-08-11] MEDS ORDERED: QUEtiapine 400 MG TAB PO SCH (02:05)
[2020-08-11] MEDS: DIVALPROEX 500 MG TABLET.DR PO SCH ×2 (02:39→09:05)
[2020-08-11] MEDS: GABAPENTIN 400 MG CAP PO SCH ×2 (02:39→09:05)
[2020-08-11 04:18] VITALS: RESP 14
[2020-08-11 08:11] LABS: Anisocytosis Slight; Basophils % (A) 0 %; Eosinophils # (A) 0.1 k/uL (0-0.7); Eosinophils % (A) 1 %; HCT 32.6 % (34.0-46.0); HGB 10.8 gm/dL (11.4-16.0); Hypochromasia Slight; Lymphocytes # (A) 4.4 k/uL (1.0-4.8); Lymphocytes % (A) 41 %; MCH 25.6 pg (25.0-35.0); MCV 77.4 fL (80.0-100.0); Mean Platelet Volume 6.7; Microcytosis Slight; Monocytes # (A) 0.7 k/uL (0-1.0); Monocytes % (A) 6 %; Neutrophils # (A) 5.1 k/uL (1.3-7.7); Neutrophils % (A) 48 %; Platelet Count 554 k/uL (150-450); RBC 4.21 m/uL (3.80-5.40); RDW 17.5 % (11.5-15.5); WBC 10.6 k/uL (3.8-10.6)
[2020-08-11 08:39] LABS: African American GFR (CKD) >90 (>60 ml/min/1.73 sqM); Anion Gap 10 mmol/L; Blood Urea Nitrogen 7 mg/dL (7-17); Carbon Dioxide 19 mmol/L (22-30); Chloride 109 mmol/L (98-107); Glucose 102 mg/dL (74-99); Non-African American GFR(CKD) >90 (>60 ml/min/1.73 sqM); Potassium 4.4 mmol/L (3.5-5.1); Sodium 138 mmol/L (137-145)
[2020-08-11] MEDS ORDERED: TRIAMCINOLONE 0.1% CREAM 80 GM TUBE TOPICAL PRN (11:12)
[2020-08-11] MEDS ORDERED: BACITRACIN ZINC 500 UNIT/GM OINT 28.4 GM TUBE TOPICAL PRN (11:12)
[2020-08-11] MEDS ORDERED: ALBUTEROL HFA INHALER INHALATION PRN (11:12)
[2020-08-11] MEDS ORDERED: PANTOPRAZOLE SODIUM 40 MG GRANULE PKT PO SCH (11:15)
[2020-08-11] MEDS ORDERED: LISINOPRIL-HCTZ 20-25 MG 1 EACH TAB PO SCH (11:15)
[2020-08-11] MEDS ORDERED: BALSALAZIDE DISODIUM 750 MG CAPSULE PO SCH (11:15)
[2020-08-11] MEDS ORDERED: LEVOTHYROXINE 137 MCG TAB PO SCH (11:15)
[2020-08-11] MEDS ORDERED: FOLIC ACID 1 MG TAB PO SCH (11:15)
[2020-08-11] MEDS ORDERED: PARoxetine 20 MG TAB PO SCH (11:15)
[2020-08-11] MEDS ORDERED: MONTELUKAST 10 MG TAB PO SCH (11:15)
[2020-08-11] MEDS ORDERED: PANTOPRAZOLE 40 MG TABLET PO SCH (11:30)
[2020-08-11 11:36] VITALS: BP 131/96; PULSE 95; TEMP 98.4
[2020-08-11] MEDS ORDERED: ALPRAZolam 0.5 MG TAB PO PRN (11:40)
--- NOTE | 2020-08-11 14:42 | P.HPIM ---
History of Present Illness H&P Date: 08/11/20 Chief Complaint: Seizures Ms. Mistry is a 35-year-old female with a past medical history of asthma, fibromyalgia, GERD, hypertension, seizure disorder, thyroid disorder, Crohn's disease, diverticulosis, irritable bowel syndrome, carpal tunnel syndrome, chronic low back pain, migraine headaches coming into the hospital stating that she had a seizure episode at home. Patient states that her mother witnessed her having a seizure-like episode at home. Patient has multiple admissions for seizures due to noncompliance issues in the past. Patient mentions that for the past 1 week she has been noncompliant taking her antiepileptics, due to a lot of stress going on in her life currently. Patient also has psychiatric history, currently denies having any suicidal or homicidal ideation. She thinks it is breakthrough episode due to noncompliance. She thinks the seizure activity could have lasted less than 1 minute. Patient denies having any post ictal confusion. Did not have loss of bladder or bowel control or tongue bite. Patient denies having any fevers chills or rigors. No chest pain or palpitations. No cough or difficulty in breathing. No abdominal pain nausea vomiting or diarrhea. No dysuria or hematuria. Past Medical History Past Medical History: Asthma, Fibromyalgia, GERD/Reflux, Hypertension, Neurologi c Disorder, Seizure Disorder, Thyroid Disorder Additional Past Medical History / Comment(s): crohns disease, diverticulosis, ibs, carpal tunnel, anemia, chronic back pain , migraines, pinched nerves, chronic colitis; states she had a fall in June and broke old fracture in right leg discovered by orth History of Any Multi-Drug Resistant Organisms: None Reported Past Surgical History: Adenoidectomy, Appendectomy, Cholecystectomy, Orthopedic Surgery, Tonsillectomy Additional Past Surgical History / Comment(s): EGD/colonoscopy, right ankle surgery Past Anesthesia/Blood Transfusion Reactions: No Reported Reaction Additional Past Anesthesia/Blood Transfusion Reaction / Comment(s): hallucinations Past Psychological History: Anxiety, Bipolar, Depression, PTSD Additional Psychological History / Comment(s): on medications Smoking Status: Current every day smoker Past Alcohol Use History: None Reported Additional Past Alcohol Use History / Comment(s): has smoked since age 14 down to < half pack per day. Past Drug Use History: None Reported - Past Family History Father Family Medical History: Diabetes Mellitus, Hyperlipidemia Mother Family Medical History: Cancer, CVA/TIA, Deep Vein Thrombosis (DVT), Oste oarthritis (OA), Thyroid Disorder Additional Family Medical History / Comment(s): Extensive tattoos throughout body Medications and Allergies Home Medications Medication Instructions Recorded Confirmed Type Beclomethasone Dipropionate [Qvar 2 puff INHALATION RT-DAILY 02/07/18 08/11/20 History 80 mcg] Levothyroxine Sodium [Synthroid] 137 mcg PO DAILY 08/07/18 08/11/20 History Montelukast [Singulair] 10 mg PO DAILY 08/07/18 08/11/20 History Balsalazide Disodium 2,250 mg PO TID 11/16/19 08/11/20 History Lisinopril-Hctz 20-25 mg 2 tab PO DAILY 11/16/19 08/11/20 History [Zestoretic 20-25] Famotidine [Pepcid] 20 mg PO BID 03/06/20 08/11/20 History Hydrocortisone Cream 1 applic TOPICAL BID PRN 03/06/20 08/11/20 History [Hydrocortisone 2.5% Cream] PARoxetine HCL 40 mg PO DAILY 03/06/20 08/11/20 History Simvastatin [Zocor] 20 mg PO HS 03/06/20 08/11/20 History Albuterol Inhaler [Ventolin Hfa 2 puff INHALATION RT-QID PRN 05/29/20 08/11/20 History Inhaler] Cyanocobalamin [Vitamin B-12] 1,000 mcg PO DAILY #30 tab 06/04/20 08/11/20 Rx Folic Acid 1 mg PO DAILY #30 tab 06/04/20 08/11/20 Rx Gabapentin [Neurontin] 400 mg PO TID #0 06/04/20 08/11/20 Rx Lacosamide [Vimpat] 50 mg PO BID #60 tablet 06/04/20 08/11/20 Rx haloperidoL [Haldol] 1 mg PO BID #4 tab 06/04/20 08/11/20 Rx Bacitracin Zinc Oint 1 applic TOPICAL BID PRN 07/14/20 08/11/20 History Divalproex [Depakote] 1,000 mg PO TID 07/14/20 08/11/20 History Loratadine [Claritin] 10 mg PO DAILY 07/14/20 08/11/20 History Ondansetron [Zofran] 4 mg PO Q6HR PRN 07/14/20 08/11/20 History QUEtiapine [SEROquel] 400 mg PO HS 07/14/20 08/11/20 History oxyCODONE-APAP 10-325MG [Percocet 1 tab PO TID PRN 07/14/20 08/11/20 History 10-325 mg] Pantoprazole Sodium 40 mg PO DAILY 08/11/20 08/11/20 History Allergies Allergy/AdvReac Type Severity Reaction Status Date / Time dicyclomine [From Bentyl] Allergy Severe Hallucinati Verified 08/11/20 08:00 ons granisetron HCl [From Kytril] Allergy Severe Anaphylaxis Verified 08/11/20 08:00 azithromycin Allergy Rash/Hives Verified 08/11/20 08:00 baclofen Allergy Rash/Hives Verified 08/11/20 08:00 butorphanol [From Stadol] Allergy Rash/Hives Verified 08/11/20 08:00 butorphanol tartrate Allergy Rash/Hives Verified 08/11/20 08:00 [From Stadol] Cephalosporins Allergy Rash/Hives Verified 08/11/20 08:00 cyclobenzaprine Allergy Unknown Verified 08/11/20 08:00 [From Flexeril] dicloxacillin Allergy Rash/Hives Verified 08/11/20 08:00 granisetron [From Kytril] Allergy Anaphylaxis Verified 08/11/20 08:00 ketorolac Allergy Rash/Hives Verified 08/11/20 08:00 ketorolac tromethamine Allergy Rash/Hives Verified 08/11/20 08:00 [From Toradol] meperidine Allergy Unknown Verified 08/11/20 08:00 meperidine HCl [From Demerol] Allergy Swelling Verified 08/11/20 08:00 morphine Allergy Unknown Verified 08/11/20 08:00 pregabalin [From Lyrica] Allergy Unknown Verified 08/11/20 08:00 risperidone [From Risperdal] Allergy Dyspnea Verified 08/11/20 08:00 sulfamethoxazole Allergy Rash/Hives Verified 08/11/20 08:00 [From Bactrim] trimethoprim [From Bactrim] Allergy Rash/Hives Verified 08/11/20 08:00 methylprednisolone AdvReac Vomiting & Verified 08/11/20 08:00 [From Medrol] Headache Physical Exam Vitals: Vital Signs Temp Pulse Pulse Resp BP BP Pulse Ox 08/11/20 04:16 98.6 F 106 H 14 105/72 99 08/11/20 01:11 98.2 F 91 15 129/88 94 L 08/11/20 00:15 89 16 120/84 96 08/10/20 23:45 91 18 130/92 97 08/10/20 23:15 85 18 140/94 97 08/10/20 22:45 95 18 126/99 96 08/10/20 22:15 92 16 112/81 98 08/10/20 21:45 93 16 125/79 96 08/10/20 21:15 99 16 138/97 97 08/10/20 20:45 105 H 16 137/96 96 08/10/20 19:55 98.4 F 102 H 20 151/103 97 Intake and Output 08/10/20 08/11/20 08/11/20 22:59 06:59 14:59 Intake Total 1080 Balance 1080 Intake: Oral 1080 Other: Voiding Method Toilet Toilet # Voids 0 # Bowel Movements 0 Weight 83.007 kg Results CBC & Chem 7: 08/11/20 07:30 08/11/20 07:30 Labs: Abnormal Lab Results - Last 24 Hours (Table) 08/10/20 08/10/20 08/10/20 Range/Units 20:09 20:09 20:09 WBC 12.2 H (3.8-10.6) k/uL Hgb 11.2 L (11.4-16.0) gm/dL Hct 33.4 L (34.0-46.0) % MCV 76.0 L (80.0-100.0) fL RDW 17.6 H (11.5-15.5) % Plt Count 608 H (150-450) k/uL Chloride (98-107) mmol/L Carbon Dioxide 19 L (22-30) mmol/L BUN 6 L (7-17) mg/dL Glucose 115 H (74-99) mg/dL Ur Oxycodone Screen Detected H (NotDetected) U Tricyclic Antidepress Detected H (NotDetected) U Benzodiazepines Scrn Detected H (NotDetected) U Marijuana (THC) Screen Detected H (NotDetected) 08/11/20 08/11/20 Range/Units 07:30 07:30 WBC (3.8-10.6) k/uL Hgb 10.8 L (11.4-16.0) gm/dL Hct 32.6 L (34.0-46.0) % MCV 77.4 L (80.0-100.0) fL RDW 17.5 H (11.5-15.5) % Plt Count 554 H (150-450) k/uL Chloride 109 H (98-107) mmol/L Carbon Dioxide 19 L (22-30) mmol/L BUN (7-17) mg/dL Glucose 102 H (74-99) mg/dL Ur Oxycodone Screen (NotDetected) U Tricyclic Antidepress (NotDetected) U Benzodiazepines Scrn (NotDetected) U Marijuana (THC) Screen (NotDetected) Thrombosis Risk Factor Assmnt - Choose All That Apply Any of the Below Risk Factors Present?: Yes Each Factor Represents 1 point: Obesity (BMI >25) Other Risk Factors: Yes Each Risk Factor Represents 3 Points: Family history of DVT/PE Thrombosis Risk Factor Assessment Total Risk Factor Score: 4 Thrombosis Risk Factor Assessment Level: Moderate Risk Assessment and Plan Assessment: ASSESSMENT Recurrent seizures due to noncompliance issues Chronic pain syndrome Hyperlipidemia Hypothyroidism Crohn's disease Diverticulosis Irritable bowel syndrome Carpal tunnel syndrome Anxiety with depression Bipolar disorder PTSD PLAN: Patient has a breakthrough seizure secondary to noncompliance with antiepileptic medications. Patient has been resumed on her home medications. Neurology has been consulted for further evaluation. Patient mentions that she takes Xanax 2 mg 3 times a day and gabapentin 1200 mg 3 times a day, and wants to be resumed back on those medications. On looking up at the pharmacy her last refill medications were from February 2020. Continue with seizure precautions. The treatment plan was discussed in detail with the patient at bedside. Further recommendations to follow depending on the progress of the patient.
[2020-08-11] MEDS ORDERED: LACOSAMIDE 50 MG TABLET PO SCH (21:00)
[2020-08-11] MEDS ORDERED: haloperidoL 1 MG TAB PO SCH (21:00)
[2020-08-11] MEDS ORDERED: ATORVASTATIN 10 MG TAB PO SCH (21:00)
[2020-08-11] MEDS ORDERED: FAMOTIDINE 20 MG TAB PO SCH (21:00)
--- NOTE | 2020-08-12 00:28 | P.DS ---
Providers Date of admission: 08/10/20 22:26 Expected date of discharge: 08/12/20 Attending physician: Osvaldo Johnson Consults: 08/10/20 22:26 Consult Physician Urgent Consulting Provider: Oksana Lin Consult Reason/Comments: acute dystonic reaction vs seizure Do you want consulting provider notified?: Yes Primary care physician: [facility] Course: Ms. Mistry is a 35-year-old female with a past medical history of asthma, fibromyalgia, GERD, hypertension, seizure disorder, thyroid disorder, Crohn's disease, diverticulosis, irritable bowel syndrome, carpal tunnel syndrome, chronic low back pain, migraine headaches coming into the hospital stating that she had a seizure episode at home. Patient states that her mother witnessed her having a seizure-like episode at home. Patient has multiple admissions for seizures due to noncompliance issues in the past. Patient mentions that for the past 1 week she has been noncompliant taking her antiepileptics, due to a lot of stress going on in her life currently. Patient also has psychiatric history, currently denies having any suicidal or homicidal ideation. She thinks it is breakthrough episode due to noncompliance. She thinks the seizure activity could have lasted less than 1 minute. Patient denies having any post ictal confusion. Did not have loss of bladder or bowel control or tongue bite. Patient denies having any fevers chills or rigors. No chest pain or palpitations. No cough or difficulty in breathing. No abdominal pain nausea vomiting or diarrhea. No dysuria or hematuria. Hospital course - she was started on her home medications.Neurology was consulted. Later in the afternoon, patient left the hospital AGAINST MEDICAL ADVICE. DISCHARGE DIAGNOSIS Recurrent seizures due to noncompliance issues Chronic pain syndrome Hyperlipidemia Hypothyroidism Crohn's disease Diverticulosis Irritable bowel syndrome Carpal tunnel syndrome Anxiety with depression Bipolar disorder PTSD PATIENT LEFT AGAINST MEDICAL ADVICE Patient Condition at Discharge: Serious Plan - Discharge Summary New Discharge Prescriptions: No Action Beclomethasone Dipropionate [Qvar 80 mcg] 2 puff INHALATION RT-DAILY Montelukast [Singulair] 10 mg PO DAILY Levothyroxine Sodium [Synthroid] 137 mcg PO DAILY Balsalazide Disodium 2,250 mg PO TID Lisinopril-Hctz 20-25 mg [Zestoretic 20-25] 2 tab PO DAILY Famotidine [Pepcid] 20 mg PO BID Hydrocortisone Cream [Hydrocortisone 2.5% Cream] 1 applic TOPICAL BID PRN PRN Reason: Rash Simvastatin [Zocor] 20 mg PO HS PARoxetine HCL 40 mg PO DAILY Albuterol Inhaler [Ventolin Hfa Inhaler] 2 puff INHALATION RT-QID PRN PRN Reason: Shortness Of Breath Folic Acid 1 mg PO DAILY #30 tab haloperidoL [Haldol] 1 mg PO BID #4 tab Lacosamide [Vimpat] 50 mg PO BID #60 tablet Cyanocobalamin [Vitamin B-12] 1,000 mcg PO DAILY #30 tab Gabapentin [Neurontin] 400 mg PO TID #0 oxyCODONE-APAP 10-325MG [Percocet 10-325 mg] 1 tab PO TID PRN PRN Reason: Pain Divalproex [Depakote] 1,000 mg PO TID Pantoprazole Sodium 40 mg PO DAILY QUEtiapine [SEROquel] 400 mg PO HS Ondansetron [Zofran] 4 mg PO Q6HR PRN PRN Reason: Nausea Loratadine [Claritin] 10 mg PO DAILY Bacitracin Zinc Oint 1 applic TOPICAL BID PRN PRN Reason: Skin Irritation Discharge Medication List Beclomethasone Dipropionate [Qvar 80 mcg] 2 puff INHALATION RT-DAILY 02/07/18 [History] Levothyroxine Sodium [Synthroid] 137 mcg PO DAILY 08/07/18 [History] Montelukast [Singulair] 10 mg PO DAILY 08/07/18 [History] Balsalazide Disodium 2,250 mg PO TID 11/16/19 [History] Lisinopril-Hctz 20-25 mg [Zestoretic 20-25] 2 tab PO DAILY 11/16/19 [History] Famotidine [Pepcid] 20 mg PO BID 03/06/20 [History] Hydrocortisone Cream [Hydrocortisone 2.5% Cream] 1 applic TOPICAL BID PRN 03/06/20 [History] PARoxetine HCL 40 mg PO DAILY 03/06/20 [History] Simvastatin [Zocor] 20 mg PO HS 03/06/20 [History] Albuterol Inhaler [Ventolin Hfa Inhaler] 2 puff INHALATION RT-QID PRN 05/29/20 [History] Cyanocobalamin [Vitamin B-12] 1,000 mcg PO DAILY #30 tab 06/04/20 [Rx] Folic Acid 1 mg PO DAILY #30 tab 06/04/20 [Rx] Gabapentin [Neurontin] 400 mg PO TID #0 06/04/20 [Rx] Lacosamide [Vimpat] 50 mg PO BID #60 tablet 06/04/20 [Rx] haloperidoL [Haldol] 1 mg PO BID #4 tab 06/04/20 [Rx] Bacitracin Zinc Oint 1 applic TOPICAL BID PRN 07/14/20 [History] Divalproex [Depakote] 1,000 mg PO TID 07/14/20 [History] Loratadine [Claritin] 10 mg PO DAILY 07/14/20 [History] Ondansetron [Zofran] 4 mg PO Q6HR PRN 07/14/20 [History] QUEtiapine [SEROquel] 400 mg PO HS 07/14/20 [History] oxyCODONE-APAP 10-325MG [Percocet 10-325 mg] 1 tab PO TID PRN 07/14/20 [History] Pantoprazole Sodium 40 mg PO DAILY 08/11/20 [History] Follow up Appointment(s)/Referral(s): Joan Meeks MD [Primary Care Provider] - 1-2 days Discharge Disposition: Left Against Medical Advice
[2020-08-12] MEDS ORDERED: FLUTICASONE 110 MCG INHALER (MHU) INHALATION SCH (08:00)
[2020-08-12] MEDS ORDERED: LORATADINE 10 MG TAB PO SCH (09:00)
[2020-08-12] MEDS ORDERED: CYANOCOBALAMIN 500 MCG TAB PO SCH (09:00)
== END 2020-08-11 15:19 | disposition left against medical advice (07) ==
LOC: EC 19:53 → 5NMEDONC 22:26
PROVIDERS: ADMIT Hospitalist; ATTEND Hospitalist
DX: G40.909 Epilepsy, unspecified, not intractable, without status epilepticus (principal); G89.4 Chronic pain syndrome; E78.5 Hyperlipidemia, unspecified; E03.9 Hypothyroidism, unspecified; Z53.29 Procedure and treatment not carried out because of patient's decision for other reasons; F31.9 Bipolar disorder, unspecified; F41.8 Other specified anxiety disorders; F43.10 Post-traumatic stress disorder, unspecified; K57.90 Diverticulosis of intestine, part unspecified, without perforation or abscess without bleeding; K58.9 Irritable bowel syndrome, unspecified; G56.00 Carpal tunnel syndrome, unspecified upper limb; Z91.19 Patient's noncompliance with other medical treatment and regimen; Z91.14 Patient's other noncompliance with medication regimen; T42.76XA Underdosing of unspecified antiepileptic and sedative-hypnotic drugs, initial encounter; J45.909 Unspecified asthma, uncomplicated; M79.7 Fibromyalgia; Z63.8 Other specified problems related to primary support group; K21.9 Gastro-esophageal reflux disease without esophagitis; I10 Essential (primary) hypertension; D64.9 Anemia, unspecified; M54.9 Dorsalgia, unspecified; G43.909 Migraine, unspecified, not intractable, without status migrainosus; G58.9 Mononeuropathy, unspecified; F17.200 Nicotine dependence, unspecified, uncomplicated; Z20.822 Contact with and (suspected) exposure to COVID-19; Z91.81 History of falling; Z79.899 Other long term (current) drug therapy; Z79.51 Long term (current) use of inhaled steroids; Z79.890 Hormone replacement therapy; Z88.1 Allergy status to other antibiotic agents; Z88.5 Allergy status to narcotic agent; Z88.8 Allergy status to other drugs, medicaments and biological substances; Z90.49 Acquired absence of other specified parts of digestive tract; Z83.3 Family history of diabetes mellitus; Z83.438 Family history of other disorder of lipoprotein metabolism and other lipidemia; Z82.49 Family history of ischemic heart disease and other diseases of the circulatory system; Z82.3 Family history of stroke; Z80.9 Family history of malignant neoplasm, unspecified; Z82.61 Family history of arthritis; Z83.49 Family history of other endocrine, nutritional and metabolic diseases
CPT/HCPCS: 96376; 96374; 96375; 99285; 36415; 93005; 80164; 80053; 80048; 85025 ×2; 81003; 81025; 80306; 87636; 71045; G0378 ×2; G0480; J2060; J1200; 80320

== ENCOUNTER 2020-09-26 13:35 | Emergency (ER) | payer OTHER ==
[2020-09-26 14:24] VITALS: TEMP 98
[2020-09-26] MEDS ORDERED: SODIUM CHLORIDE 0.9% 1,000 ML IV STA (15:04)
[2020-09-26] MEDS ORDERED: MORPHINE SULFATE 4 MG/ML SYRINGE IV STA (15:04)
[2020-09-26] MEDS ORDERED: METOCLOPRAMIDE 5 MG/ML 2 ML VIAL IVP STA (15:05)
[2020-09-26 15:47] LABS: Anisocytosis Slight; Basophils # (A) 0.1 k/uL (0-0.2); Basophils % (A) 1 %; Eosinophils # (A) 0.2 k/uL (0-0.7); Eosinophils % (A) 1 %; HCT 37.6 % (34.0-46.0); Hypochromasia Slight; Lymphocytes # (A) 4.1 k/uL (1.0-4.8); Lymphocytes % (A) 34 %; MCH 24.6 pg (25.0-35.0); MCV 76.9 fL (80.0-100.0); Mean Platelet Volume 6.6; Microcytosis Slight; Monocytes # (A) 0.7 k/uL (0-1.0); Monocytes % (A) 6 %; Neutrophils # (A) 6.7 k/uL (1.3-7.7); Neutrophils % (A) 56 %; Platelet Count 575 k/uL (150-450); RBC 4.89 m/uL (3.80-5.40); RDW 17.4 % (11.5-15.5); WBC 11.9 k/uL (3.8-10.6)
[2020-09-26 15:56] LABS: ALT 14 U/L (4-34); AST 28 U/L (14-36); African American GFR (CKD) >90 (>60 ml/min/1.73 sqM); Albumin 4.2 g/dL (3.5-5.0); Alkaline Phosphatase 120 U/L (38-126); Amylase 112 U/L (30-110); Anion Gap 10 mmol/L; Blood Urea Nitrogen 7 mg/dL (7-17); Calcium 9.4 mg/dL (8.4-10.2); Carbon Dioxide 20 mmol/L (22-30); Chloride 109 mmol/L (98-107); Glucose 86 mg/dL (74-99); Lipase 70 U/L (23-300); Non-African American GFR(CKD) >90 (>60 ml/min/1.73 sqM); Potassium 4.6 mmol/L (3.5-5.1); Sodium 139 mmol/L (137-145); Total Bilirubin 0.3 mg/dL (0.2-1.3); Total Protein 7.4 g/dL (6.3-8.2)
[2020-09-26 16:07] LABS: Appearance,Urine Clear (Clear); Bilirubin,Urine Negative (Negative); Blood,Urine Negative (Negative); Color,Urine Light Yellow; Glucose,Urine (UA) Negative (Negative); Ketones,Urine Negative (Negative); Leukocyte Esterase,Urine Negative (Negative); Nitrite,Urine Negative (Negative); Protein,Urine Negative (Negative); Specific Gravity,Urine 1.007 (1.001-1.035); Urobilinogen,Urine <2.0 mg/dL (<2.0)
[2020-09-26] MEDS ORDERED: MORPHINE SULFATE 4 MG/ML SYRINGE IVP STA (16:10)
[2020-09-26] MEDS ORDERED: diphenhydrAMINE 50 MG/ML 1 ML VIAL IVP STA (16:10)
--- NOTE | 2020-09-26 17:04 | CT ---
EXAMINATION TYPE: CT abdomen pelvis w con DATE OF EXAM: 09/26/2020 COMPARISON: 07/14/2020 and 05/14/2018 HISTORY: 35-year-old female RUQ to periumbilical pain, nausea, vomiting TECHNIQUE: Contiguous axial scanning of the abdomen and pelvis following administration of 100 ml Iso julius 300 IV contrast. Delayed images through the kidneys and coronal/sagittal reconstructions perform ed. CT DLP: 1425.9 mGycm Automated exposure control for dose reduction was used. FINDINGS: Heart normal size without pericardial effusion. Lung bases clear without pleural effusion. Mild circumferential wall thickening distal esophagus. Liver enlarged measuring 20.9 cm. There may be some fatty infiltration of the liver. Portal venous sy stem is patent. Cholecystectomy clips. No biliary ductal dilatation. Suggestion of mild fold thickening in the gastric fundus and proximal body. Similar mild 1.3 cm nodularity right adrenal gland and a couple larger nodules of the left adrenal gl and measuring 2.2 and 1.5 cm. Difficult to exclude slight increase in size by 1 to 2 mm of these nodu les. Spleen, kidneys, and pancreas show no gross abnormality. No dilated small bowel, free fluid, or free air. A prominent fluid-filled small bowel loops lower abd omen and some liquid stool in the cecum. There is some circumferential wall thickening noted througho ut the colon including the rectum. While the appendix is not clearly identified, no secondary findings of acute appendicitis. No mesenteric or retroperitoneal lymphadenopathy. Mild circumferential bladder wall thickening. Uterus is anteverted. Both ovaries are visualized. Cookie nant follicular changes in the left ovary. No abnormal fluid collection the pelvis or pelvic lymphade nopathy. Bones: Stable 1.3 cm sclerotic focus superior right acetabulum suggesting a bone island. No osseous d estructive process. IMPRESSION: 1. MILD CIRCUMFERENTIAL PANCOLONIC WALL THICKENING. CORRELATE FOR AN INFECTIOUS OR INFLAMMATORY COLIT IS INCLUDING THE POSSIBILITY OF IBD. 2. ADDITIONAL SITES OF MILD WALL THICKENING INCLUDE THE PROXIMAL STOMACH AND LOWER ESOPHAGUS. THIS CO ULD REFLECT ESOPHAGITIS AND/OR GASTRITIS. CORRELATE WITH PATIENT'S SYMPTOMS. 3. IN ADDITION, THERE IS MILD CIRCUMFERENTIAL WALL THICKENING OF THE BLADDER. CORRELATE TO EXCLUDE CY STITIS. 4. BILATERAL ADRENAL NODULARITY MEASURING UP TO 2.2 CM. DIFFICULT TO EXCLUDE SLIGHT 1 TO 2 MM INCREAS E IN SIZE OF THE SMALL 1.3 CM RIGHT-SIDED NODULE. THIS NODULE WAS NOT APPRECIATED BACK ON 05/14/2018. C ORRELATE FOR UNDERLYING ADRENAL ADENOMAS. CONSIDER 12 MONTH FOLLOW-UP CT TO REASSESS.
[2020-09-26] MEDS ORDERED: ACET/COD 300 MG/30 MG STARTER PACK 6 TAB BTL PO STA (17:33)
--- NOTE | 2020-09-26 17:33 | ED ---
Abdominal Pain HPI - General Chief Complaint: Abdominal Pain Stated Complaint: abd pain Time Seen by Provider: 09/26/20 14:28 Source: patient Mode of arrival: ambulatory Limitations: no limitations - History of Present Illness Initial Comments: Patient is a 35-year-old female with history of Crohn's, IBS, hypertension, presenting to the emergency Department with complaints of abdominal pain, nausea and vomiting for the last 3 days. She states she also has a history of gastritis. She states she normally takes Percocets for chronic pain, she ran out yesterday. She has been having normal bowel movements, no dysuria. She denies being . She states the abdominal pain started in her lower belly but has now all over. She has no specific area pain. She denies any chest pain or shortness of breath, no fevers or chills. She has no further complaints at this time. Upon arrival to the ER her vitals are stable. - Related Data Home Medications Medication Instructions Recorded Confirmed Beclomethasone Dipropionate [Qvar 2 puff INHALATION RT-DAILY 02/07/18 08/11/20 80 mcg] Levothyroxine Sodium [Synthroid] 137 mcg PO DAILY 08/07/18 08/11/20 Montelukast [Singulair] 10 mg PO DAILY 08/07/18 08/11/20 Balsalazide Disodium 2,250 mg PO TID 11/16/19 08/11/20 Lisinopril-Hctz 20-25 mg 2 tab PO DAILY 11/16/19 08/11/20 [Zestoretic 20-25] Famotidine [Pepcid] 20 mg PO BID 03/06/20 08/11/20 Hydrocortisone Cream 1 applic TOPICAL BID PRN 03/06/20 08/11/20 [Hydrocortisone 2.5% Cream] PARoxetine HCL 40 mg PO DAILY 03/06/20 08/11/20 Simvastatin [Zocor] 20 mg PO HS 03/06/20 08/11/20 Albuterol Inhaler [Ventolin Hfa 2 puff INHALATION RT-QID PRN 05/29/20 08/11/20 Inhaler] Bacitracin Zinc Oint 1 applic TOPICAL BID PRN 07/14/20 08/11/20 Divalproex [Depakote] 1,000 mg PO TID 07/14/20 08/11/20 Loratadine [Claritin] 10 mg PO DAILY 07/14/20 08/11/20 Ondansetron [Zofran] 4 mg PO Q6HR PRN 07/14/20 08/11/20 QUEtiapine [SEROquel] 400 mg PO HS 07/14/20 08/11/20 oxyCODONE-APAP 10-325MG [Percocet 1 tab PO TID PRN 07/14/20 08/11/20 10-325 mg] Pantoprazole Sodium 40 mg PO DAILY 08/11/20 08/11/20 Previous Rx's Medication Instructions Recorded Cyanocobalamin [Vitamin B-12] 1,000 mcg PO DAILY #30 tab 06/04/20 Folic Acid 1 mg PO DAILY #30 tab 06/04/20 Gabapentin [Neurontin] 400 mg PO TID #0 06/04/20 Lacosamide [Vimpat] 50 mg PO BID #60 tablet 06/04/20 haloperidoL [Haldol] 1 mg PO BID #4 tab 06/04/20 Allergies Allergy/AdvReac Type Severity Reaction Status Date / Time dicyclomine [From Bentyl] Allergy Severe Hallucinati Verified 08/11/20 08:00 ons granisetron HCl [From Kytril] Allergy Severe Anaphylaxis Verified 08/11/20 08:00 azithromycin Allergy Rash/Hives Verified 08/11/20 08:00 baclofen Allergy Rash/Hives Verified 08/11/20 08:00 butorphanol [From Stadol] Allergy Rash/Hives Verified 08/11/20 08:00 butorphanol tartrate Allergy Rash/Hives Verified 08/11/20 08:00 [From Stadol] Cephalosporins Allergy Rash/Hives Verified 08/11/20 08:00 cyclobenzaprine Allergy Unknown Verified 08/11/20 08:00 [From Flexeril] dicloxacillin Allergy Rash/Hives Verified 08/11/20 08:00 granisetron [From Kytril] Allergy Anaphylaxis Verified 08/11/20 08:00 ketorolac Allergy Rash/Hives Verified 08/11/20 08:00 ketorolac tromethamine Allergy Rash/Hives Verified 08/11/20 08:00 [From Toradol] meperidine Allergy Unknown Verified 08/11/20 08:00 meperidine HCl [From Demerol] Allergy Swelling Verified 08/11/20 08:00 morphine Allergy Unknown Verified 08/11/20 08:00 pregabalin [From Lyrica] Allergy Unknown Verified 08/11/20 08:00 risperidone [From Risperdal] Allergy Dyspnea Verified 08/11/20 08:00 sulfamethoxazole Allergy Rash/Hives Verified 08/11/20 08:00 [From Bactrim] trimethoprim [From Bactrim] Allergy Rash/Hives Verified 08/11/20 08:00 methylprednisolone AdvReac Vomiting & Verified 08/11/20 08:00 [From Medrol] Headache Review of Systems ROS Statement: Those systems with pertinent positive or pertinent negative responses have been documented in the HPI. ROS Other: All systems not noted in ROS Statement are negative. Past Medical History Past Medical History: Asthma, Fibromyalgia, GERD/Reflux, Hypertension, Neurologic Disorder, Seizure Disorder, Thyroid Disorder Additional Past Medical History / Comment(s): crohns disease, diverticulosis, ibs, carpal tunnel, anemia, chronic back pain , migraines, pinched nerves, chronic colitis; states she had a fall in June and broke old fracture in right leg discovered by orth History of Any Multi-Drug Resistant Organisms: None Reported Past Surgical History: Adenoidectomy, Appendectomy, Cholecystectomy, Orthopedic Surgery, Tonsillectomy Additional Past Surgical History / Comment(s): EGD/colonoscopy, right ankle surgery Past Anesthesia/Blood Transfusion Reactions: No Reported Reaction Additional Past Anesthesia/Blood Transfusion Reaction / Comment(s): hallucinations Past Psychological History: Anxiety, Bipolar, Depression, PTSD Smoking Status: Current every day smoker Past Alcohol Use History: None Reported Past Drug Use History: None Reported - Past Family History Father Family Medical History: Diabetes Mellitus, Hyperlipidemia Mother Family Medical History: Cancer, CVA/TIA, Deep Vein Thrombosis (DVT), Osteoarthritis (OA), Thyroid Disorder Additional Family Medical History / Comment(s): Extensive tattoos throughout body General Exam - General Exam Comments Initial Comments: GENERAL: Patient is well-developed and well-nourished. Patient is nontoxic and in mild d istress. HEAD: Atraumatic, normocephalic. EYES: Pupils equal round and reactive to light, extraocular movements intact, sclera anicteric, conjunctiva are normal. Eyelids were unremarkable. ENT: TMs normal, nares patent, oropharynx clear without exudates. Moist mucous membranes. NECK: Normal range of motion, supple without lymphadenopathy or JVD. LUNGS: Unlabored respirations. Breath sounds clear to auscultation bilaterally and equal. No wheezes rales or rhonchi. HEART: Regular rate and rhythm without murmurs, rubs or gallops. ABDOMEN: Soft, generalized abdominal tenderness, no specific area of pain, normoactive bowel sounds. No guarding, no rebound. No masses appreciated. : Deferred MUSCULOSKELETAL: Normal extremities with adequate strength and normal range of motion, no pitting or edema. No clubbing or cyanosis. NEUROLOGICAL: Patient is alert and oriented x 3. Motor and sensory are also intact. Cranial nerves II through XII grossly intact. Symmetrical smile. Normal speech, normal gait. PSYCH: Normal mood, normal affect. SKIN: Warm, Dry, normal turgor, no rashes or lesions noted. Limitations: no limitations Course Vital Signs 09/26/20 09/26/20 14:22 18:08 Temperature 98 F Pulse Rate 99 70 Respiratory 20 18 Rate Blood Pressure 143/99 130/71 O2 Sat by Pulse 98 97 Oximetry Medical Decision Making - Medical Decision Making Patient is a 35-year-old female with history of Crohn's, IBS, presenting with abdominal pain, nausea and vomiting for the past 2-3 days. She normally takes Percocets for pain, she ran out yesterday. No fevers, her vitals are stable. Labs show a slight white count 11.9, this is most likely reactive. Lipase is normal, urine is normal, hCG is not detected. CT of the abdomen shows circumferential wall thickening consistent with history of Crohn's, bilateral adrenal nodules, they recommended twelve-month follow-up. Patient was given fluids, pain control, Reglan. She has been resting comfortably. I discussed th brynn findings with her. She states she does follow with Dr. Pan and has an appointment eat for a follow-up. This could be a flareup of her Crohn's versus possible mild withdrawal from her Percocet. Patient will be given a starter pack of Tylenol 3. She is in agreement with this plan of care and is stable for discharge. Return parameters were discussed with her and she verbalized understanding. Case discussed with Dr. Hawkins. - Lab Data Result diagrams: 09/26/20 15:36 09/26/20 15:36 Lab Results 09/26/20 09/26/20 09/26/20 Range/Units 15:36 15:36 15:36 WBC 11.9 H (3.8-10.6) k/uL RBC 4.89 (3.80-5.40) m/uL Hgb 12.0 (11.4-16.0) gm/dL Hct 37.6 (34.0-46.0) % MCV 76.9 L (80.0-100.0) fL MCH 24.6 L (25.0-35.0) pg MCHC 32.0 (31.0-37.0) g/dL RDW 17.4 H (11.5-15.5) % Plt Count 575 H (150-450) k/uL MPV 6.6 Neutrophils % 56 % Lymphocytes % 34 % Monocytes % 6 % Eosinophils % 1 % Basophils % 1 % Neutrophils # 6.7 (1.3-7.7) k/uL Lymphocytes # 4.1 (1.0-4.8) k/uL Monocytes # 0.7 (0-1.0) k/uL Eosinophils # 0.2 (0-0.7) k/uL Basophils # 0.1 (0-0.2) k/uL Hypochromasia Slight Anisocytosis Slight Microcytosis Slight Sodium (137-145) mmol/L Potassium (3.5-5.1) mmol/L Chloride (98-107) mmol/L Carbon Dioxide (22-30) mmol/L Anion Gap mmol/L BUN (7-17) mg/dL Creatinine (0.52-1.04) mg/dL Est GFR (CKD-EPI)AfAm (>60 ml/min/1.73 sqM) Est GFR (CKD-EPI)NonAf (>60 ml/min/1.73 sqM) Glucose (74-99) mg/dL Plasma Lactic Acid Jeremy (0.7-2.0) mmol/L Calcium (8.4-10.2) mg/dL Total Bilirubin (0.2-1.3) mg/dL AST (14-36) U/L ALT (4-34) U/L Alkaline Phosphatase (38-126) U/L Total Protein (6.3-8.2) g/dL Albumin (3.5-5.0) g/dL Amylase (30-110) U/L Lipase (23-300) U/L Urine Color Light Yellow Urine Appearance Clear (Clear) Urine pH 6.0 (5.0-8.0) Ur Specific [place] 1.007 (1.001-1.035) Urine Protein Negative (Negative) Urine Glucose (UA) Negative (Negative) Urine Ketones Negative (Negative) Urine Blood Negative (Negative) Urine Nitrite Negative (Negative) Urine Bilirubin Negative (Negative) Urine Urobilinogen <2.0 (<2.0) mg/dL Ur Leukocyte Esterase Negative (Negative) Urine HCG, Qual Not Detected (Not Detectd) 09/26/20 09/26/20 Range/Units 15:36 15:36 WBC (3.8-10.6) k/uL RBC (3.80-5.40) m/uL Hgb (11.4-16.0) gm/dL Hct (34.0-46.0) % MCV (80.0-100.0) fL MCH (25.0-35.0) pg MCHC (31.0-37.0) g/dL RDW (11.5-15.5) % Plt Count (150-450) k/uL MPV Neutrophils % % Lymphocytes % % Monocytes % % Eosinophils % % Basophils % % Neutrophils # (1.3-7.7) k/uL Lymphocytes # (1.0-4.8) k/uL Monocytes # (0-1.0) k/uL Eosinophils # (0-0.7) k/uL Basophils # (0-0.2) k/uL Hypochromasia Anisocytosis Microcytosis Sodium 139 (137-145) mmol/L Potassium 4.6 (3.5-5.1) mmol/L Chloride 109 H (98-107) mmol/L Carbon Dioxide 20 L (22-30) mmol/L Anion Gap 10 mmol/L BUN 7 (7-17) mg/dL Creatinine 0.73 (0.52-1.04) mg/dL Est GFR (CKD-EPI)AfAm >90 (>60 ml/min/1.73 sqM) Est GFR (CKD-EPI)NonAf >90 (>60 ml/min/1.73 sqM) Glucose 86 (74-99) mg/dL Plasma Lactic Acid Jeremy 1.1 (0.7-2.0) mmol/L Calcium 9.4 (8.4-10.2) mg/dL Total Bilirubin 0.3 (0.2-1.3) mg/dL AST 28 (14-36) U/L ALT 14 (4-34) U/L Alkaline Phosphatase 120 (38-126) U/L Total Protein 7.4 (6.3-8.2) g/dL Albumin 4.2 (3.5-5.0) g/dL Amylase 112 H (30-110) U/L Lipase 70 (23-300) U/L Urine Color Urine Appearance (Clear) Urine pH (5.0-8.0) Ur Specific [place] (1.001-1.035) Urine Protein (Negative) Urine Glucose (UA) (Negative) Urine Ketones (Negative) Urine Blood (Negative) Urine Nitrite (Negative) Urine Bilirubin (Negative) Urine Urobilinogen (<2.0) mg/dL Ur Leukocyte Esterase (Negative) Urine HCG, Qual (Not Detectd) Disposition Clinical Impression: Abdominal pain, Inflammatory bowel disease Disposition: HOME SELF-CARE Condition: Stable Instructions (If sedation given, give patient instructions): Abdominal Pain (ED) Additional Instructions: Please return to the Emergency Department if symptoms worsen or any other concerns. Follow up with Dr. Pan as discussed. Is patient prescribed a controlled substance at d/c from ED?: No Referrals: Joan Meeks MD [Primary Care Provider] - 1-2 days Deena Pan MD [STAFF PHYSICIAN] - 1-2 days Time of Disposition: 17:32
[2020-09-26 18:09] VITALS: BP 130/71; PULSE 70; RESP 18
== END 2020-09-26 17:45 | disposition home or self-care (01) ==
LOC: EC 13:35
DX: K58.9 Irritable bowel syndrome, unspecified (principal); J45.909 Unspecified asthma, uncomplicated; I10 Essential (primary) hypertension; K21.9 Gastro-esophageal reflux disease without esophagitis; G40.909 Epilepsy, unspecified, not intractable, without status epilepticus; F41.9 Anxiety disorder, unspecified; F31.9 Bipolar disorder, unspecified; F43.10 Post-traumatic stress disorder, unspecified; F17.200 Nicotine dependence, unspecified, uncomplicated; Z83.42 Family history of familial hypercholesterolemia; Z82.61 Family history of arthritis; Z83.49 Family history of other endocrine, nutritional and metabolic diseases; Z82.3 Family history of stroke; Z82.49 Family history of ischemic heart disease and other diseases of the circulatory system; Z80.9 Family history of malignant neoplasm, unspecified; Z79.899 Other long term (current) drug therapy; Z88.3 Allergy status to other anti-infective agents; Z88.8 Allergy status to other drugs, medicaments and biological substances; Z88.1 Allergy status to other antibiotic agents; Z88.2 Allergy status to sulfonamides; Z88.6 Allergy status to analgesic agent
CPT/HCPCS: 99284 ×2; 96374 ×2; 96375 ×3; 96376; 96361 ×2; 36415; 80053; 82150; 83605; 83690; 85025; 81003; 81025; 74177; J2270; J1200; J2765; Q9967

== ENCOUNTER 2020-10-04 | Day surgery (SDC) | payer OTHER | END 2020-10-04 12:50 | disposition home or self-care (01) | CPT/HCPCS: 81025; 88305; 45380; J2704 ==

== ENCOUNTER 2020-11-18 16:13 | Inpatient (IN) | payer OTHER ==
[2020-11-18] MEDS ORDERED: SODIUM CHLORIDE 0.9% 1,000 ML IV STA (16:31)
[2020-11-18] MEDS ORDERED: MORPHINE SULFATE 4 MG/ML SYRINGE IV STA (16:31)
[2020-11-18 16:53] LABS: Anisocytosis Slight; Basophils # (A) 0.1 k/uL (0-0.2); Basophils % (A) 0 %; Eosinophils # (A) 0.2 k/uL (0-0.7); Eosinophils % (A) 2 %; HCT 38.8 % (34.0-46.0); HGB 12.2 gm/dL (11.4-16.0); Hypochromasia Slight; Lymphocytes # (A) 3.9 k/uL (1.0-4.8); Lymphocytes % (A) 31 %; MCH 24.8 pg (25.0-35.0); MCHC 31.5 g/dL (31.0-37.0); MCV 78.6 fL (80.0-100.0); Microcytosis Slight; Monocytes # (A) 0.5 k/uL (0-1.0); Monocytes % (A) 4 %; Neutrophils # (A) 7.8 k/uL (1.3-7.7); Neutrophils % (A) 61 %; Platelet Count 646 k/uL (150-450); RBC 4.94 m/uL (3.80-5.40); RDW 18.8 % (11.5-15.5); WBC 12.7 k/uL (3.8-10.6)
[2020-11-18 17:03] LABS: INR 0.9 (<1.2); Partial Thromboplastin Time 23.7 sec (22.0-30.0); Prothrombin Time 10.1 sec (9.0-12.0)
[2020-11-18 17:08] LABS: Appearance,Urine Clear (Clear); Bacteria,Urine Rare /hpf; Bilirubin,Urine Negative (Negative); Blood,Urine Negative (Negative); Color,Urine Light Yellow; Glucose,Urine (UA) Negative (Negative); Hyaline Casts,Urine 4 /lpf (0-2); Ketones,Urine Negative (Negative); Leukocyte Esterase,Urine Small (Negative); Mucus,Urine Rare /hpf; Nitrite,Urine Negative (Negative); Protein,Urine Negative (Negative); RBC,Urine 1 /hpf (0-5); Specific Gravity,Urine 1.004 (1.001-1.035); Squamous Epithelial Cell,Urine 2 /hpf (0-4); Urobilinogen,Urine <2.0 mg/dL (<2.0); WBC,Urine 5 /hpf (0-5)
[2020-11-18 17:16] LABS: ALT 16 U/L (4-34); AST 15 U/L (14-36); African American GFR (CKD) >90 (>60 ml/min/1.73 sqM); Alkaline Phosphatase 139 U/L (38-126); Amylase 92 U/L (30-110); Anion Gap 7 mmol/L; Blood Urea Nitrogen 3 mg/dL (7-17); Calcium 9.7 mg/dL (8.4-10.2); Carbon Dioxide 18 mmol/L (22-30); Chloride 110 mmol/L (98-107); Glucose 104 mg/dL (74-99); Lipase 66 U/L (23-300); Non-African American GFR(CKD) >90 (>60 ml/min/1.73 sqM); Sodium 135 mmol/L (137-145); Total Bilirubin 0.1 mg/dL (0.2-1.3); Total Protein 7.1 g/dL (6.3-8.2)
[2020-11-18] MEDS ORDERED: methylPREDNISolone SOD SUCCI 125 MG/2 ML VIAL IV STA (17:29)
[2020-11-18] MEDS ORDERED: MORPHINE SULFATE 4 MG/ML SYRINGE IVP STA (18:38)
[2020-11-18] MEDS: SODIUM CHLORIDE 0.9% 1,000 ML IV SCH (18:48)
--- NOTE | 2020-11-18 18:49 | XR ---
EXAM: XR Right Tibia and Fibula, 2 Views CLINICAL HISTORY: ITS.REASON XR Reason: fall TECHNIQUE: Frontal and lateral views of the right tibia and fibula. COMPARISON: Right Tib-fib radiographs on 06/09/2020 FINDINGS: Bones/joints: No displaced fracture or dislocation identified. Plate and screw fixations of the distal right tibia and fibula with old fracture deformities. Osteopenia. Soft tissues: Unremarkable. No radiopaque foreign body. IMPRESSION: No displaced fracture or dislocation identified.
[2020-11-18] MEDS ORDERED: ACETAMINOPHEN TAB 325 MG TAB PO PRN (19:41)
[2020-11-18] MEDS ORDERED: NALOXONE 0.4 MG/ML 1 ML VIAL IV PRN (19:41)
--- NOTE | 2020-11-18 19:46 | ED ---
General Adult HPI - General Chief complaint: Abdominal Pain Stated complaint: Fall, leg injury, abd pain Time Seen by Provider: 11/18/20 16:16 Source: patient, EMS, RN notes reviewed, old records reviewed Mode of arrival: EMS Limitations: physical limitation - History of Present Illness Initial comments: 35-year-old female presenting with chief complaint of abdominal pain, nausea vomiting, history of inflammatory bowel disease. She does follow with [facility] ast[facility]enterology. She's had symptoms for the past several days. She states she had 4 episodes of vomiting today. No fevers. Pain is predominantly in the periumbilical. She denies any change in her bowels, she states she has chronic diarrhea. No dysuria or hematuria. Denies current . Additionally she states she did have a minor fall and injure her right leg which she had previously injured in the past. - Related Data Home Medications Medication Instructions Recorded Confirmed Beclomethasone Dipropionate [Qvar 2 puff INHALATION RT-DAILY 02/07/18 10/04/20 80 mcg] Levothyroxine Sodium [Synthroid] 137 mcg PO DAILY 08/07/18 10/04/20 Montelukast [Singulair] 10 mg PO DAILY 08/07/18 10/04/20 Balsalazide Disodium 2,250 mg PO TID 11/16/19 10/04/20 Lisinopril-Hctz 20-25 mg 2 tab PO DAILY 11/16/19 10/04/20 [Zestoretic 20-25] Famotidine [Pepcid] 20 mg PO BID 03/06/20 10/04/20 Hydrocortisone Cream 1 applic TOPICAL BID PRN 03/06/20 10/04/20 [Hydrocortisone 2.5% Cream] PARoxetine HCL 40 mg PO DAILY 03/06/20 10/04/20 Simvastatin [Zocor] 20 mg PO HS 03/06/20 10/04/20 Albuterol Inhaler [Ventolin Hfa 2 puff INHALATION RT-QID PRN 05/29/20 10/04/20 Inhaler] Bacitracin Zinc Oint 1 applic TOPICAL BID PRN 07/14/20 10/04/20 Divalproex [Depakote] 1,000 mg PO TID 07/14/20 10/04/20 Loratadine [Claritin] 10 mg PO DAILY 07/14/20 10/04/20 Ondansetron [Zofran] 8 mg PO DIRECTED PRN 07/14/20 10/04/20 QUEtiapine [SEROquel] 500 mg PO HS 07/14/20 10/04/20 oxyCODONE-APAP 10-325MG [Percocet 1 tab PO TID PRN 07/14/20 10/04/20 10-325 mg] Pantoprazole Sodium 40 mg PO DAILY 08/11/20 10/04/20 Gabapentin [Neurontin] 1,200 mg PO TID 10/01/20 10/04/20 Iron (Unknown Dose) 1 tab PO DAILY 10/01/20 10/04/20 Previous Rx's Medication Instructions Recorded Cyanocobalamin [Vitamin B-12] 1,000 mcg PO DAILY #30 tab 06/04/20 Folic Acid 1 mg PO DAILY #30 tab 06/04/20 Lacosamide [Vimpat] 50 mg PO BID #60 tablet 06/04/20 haloperidoL [Haldol] 1 mg PO BID #4 tab 06/04/20 Allergies Allergy/AdvReac Type Severity Reaction Status Date / Time dicyclomine [From Bentyl] Allergy Severe Hallucinati Verified 10/04/20 11:16 ons granisetron HCl [From Kytril] Allergy Severe Anaphylaxis Verified 10/04/20 11:16 azithromycin Allergy Rash/Hives Verified 10/04/20 11:16 baclofen Allergy Rash/Hives Verified 10/04/20 11:16 butorphanol [From Stadol] Allergy Rash/Hives Verified 10/04/20 11:16 butorphanol tartrate Allergy Rash/Hives Verified 10/04/20 11:16 [From Stadol] Cephalosporins Allergy Rash/Hives Verified 10/04/20 11:16 cyclobenzaprine Allergy Unknown Verified 10/04/20 11:16 [From Flexeril] dicloxacillin Allergy Rash/Hives Verified 10/04/20 11:16 granisetron [From Kytril] Allergy Anaphylaxis Verified 10/04/20 11:16 ketorolac Allergy Rash/Hives Verified 10/04/20 11:16 ketorolac tromethamine Allergy Rash/Hives Verified 10/04/20 11:16 [From Toradol] meperidine Allergy Unknown Verified 10/04/20 11:16 meperidine HCl [From Demerol] Allergy Swelling Verified 10/04/20 11:16 pregabalin [From Lyrica] Allergy Unknown Verified 10/04/20 11:16 risperidone [From Risperdal] Allergy Dyspnea Verified 10/04/20 11:16 sulfamethoxazole Allergy Rash/Hives Verified 10/04/20 11:16 [From Bactrim] trimethoprim [From Bactrim] Allergy Rash/Hives Verified 10/04/20 11:16 methylprednisolone AdvReac Vomiting & Verified 10/04/20 11:16 [From Medrol] Headache Review of Systems ROS Statement: Those systems with pertinent positive or pertinent negative responses have been documented in the HPI. ROS Other: All systems not noted in ROS Statement are negative. Past Medical History Past Medical History: Asthma, Fibromyalgia, GERD/Reflux, Hypertension, Neurologic Disorder, Seizure Disorder, Thyroid Disorder Additional Past Medical History / Comment(s): crohns disease, diverticulosis, ibs, chronic colitis.,carpal tunnel solo wrists, anemia, chronic back pain , migraines, pinched nerves, Hx fall in June and broke old fracture above right ankle- wears boot., frequent nausea, last seizure 1 month ago., hx pancreatitis. History of Any Multi-Drug Resistant Organisms: None Reported Past Surgical History: Adenoidectomy, Appendectomy, Cholecystectomy, Orthopedic Surgery, Tonsillectomy Additional Past Surgical History / Comment(s): EGD/colonoscopy, right ankle surgery, broken nose surgery Past Anesthesia/Blood Transfusion Reactions: Previous Problems w/ Anesthesia, Postoperative Nausea & Vomiting (PONV) Additional Past Anesthesia/Blood Transfusion Reaction / Comment(s): hallucinations x1 Past Psychological History: Anxiety, Bipolar, Depression, PTSD Additional Psychological History / Comment(s): . Smoking Status: Current every day smoker Past Alcohol Use History: None Reported Additional Past Alcohol Use History / Comment(s): started smoking age 14 down to half pack per day. Past Drug Use History: None Reported - Past Family History Father Family Medical History: Diabetes Mellitus, Hyperlipidemia Mother Family Medical History: Cancer, CVA/TIA, Deep Vein Thrombosis (DVT), Osteoarthritis (OA), Thyroid Disorder Additional Family Medical History / Comment(s): Extensive tattoos throughout body General Exam Limitations: physical limitation General appearance: alert, in no apparent distress Head exam: Present: atraumatic, normocephalic Eye exam: Present: normal appearance, PERRL ENT exam: Present: normal exam Neck exam: Present: normal inspection. Absent: tenderness, meningismus Respiratory exam: Present: normal lung sounds bilaterally. Absent: respiratory distress, wheezes Cardiovascular Exam: Present: regular rate, normal rhythm GI/Abdominal exam: Present: soft, tenderness (Periumbilical). Absent: distended, guarding, rebound, rigid Extremities exam: Present: normal inspection, normal capillary refill. Absent: pedal edema Neurological exam: Present: alert, oriented X3, CN II-XII intact. Absent: motor sensory deficit Psychiatric exam: Present: normal affect, normal mood Skin exam: Present: warm, dry, intact Course Vital Signs 11/18/20 16:15 Temperature 97.8 F Pulse Rate 95 Respiratory 20 Rate Blood Pressure 109/88 O2 Sat by Pulse 98 Oximetry Medical Decision Making - Medical Decision Making Referral female presenting with abdominal pain, history of inflammatory bowel disease. Patient does have some minimal tenderness, no rebound or guarding. Gisela mclaughlin has stable vitals. She has a mild leukocytosis and thrombocytosis. These are improved from prior. She's had several CT scans this year. I will await reevaluation prior to obtaining imaging. I discussed case with Dr. Johnson who will admit, gastroenterology on consult. I have prescribed steroids in the emergency department however the patient refuses medication. - Lab Data Result diagrams: 11/18/20 16:37 11/18/20 16:37 Lab Results 11/18/20 11/18/20 11/18/20 Range/Units 16:37 16:37 16:37 WBC 12.7 H (3.8-10.6) k/uL RBC 4.94 (3.80-5.40) m/uL Hgb 12.2 (11.4-16.0) gm/dL Hct 38.8 (34.0-46.0) % MCV 78.6 L (80.0-100.0) fL MCH 24.8 L (25.0-35.0) pg MCHC 31.5 (31.0-37.0) g/dL RDW 18.8 H (11.5-15.5) % Plt Count 646 H (150-450) k/uL MPV 7.0 Neutrophils % 61 % Lymphocytes % 31 % Monocytes % 4 % Eosinophils % 2 % Basophils % 0 % Neutrophils # 7.8 H (1.3-7.7) k/uL Lymphocytes # 3.9 (1.0-4.8) k/uL Monocytes # 0.5 (0-1.0) k/uL Eosinophils # 0.2 (0-0.7) k/uL Basophils # 0.1 (0-0.2) k/uL Hypochromasia Slight Anisocytosis Slight Microcytosis Slight PT 10.1 (9.0-12.0) sec INR 0.9 (<1.2) APTT 23.7 (22.0-30.0) sec Sodium (137-145) mmol/L Potassium (3.5-5.1) mmol/L Chloride (98-107) mmol/L Carbon Dioxide (22-30) mmol/L Anion Gap mmol/L BUN (7-17) mg/dL Creatinine (0.52-1.04) mg/dL Est GFR (CKD-EPI)AfAm (>60 ml/min/1.73 sqM) Est GFR (CKD-EPI)NonAf (>60 ml/min/1.73 sqM) Glucose (74-99) mg/dL Plasma Lactic Acid Jeremy (0.7-2.0) mmol/L Calcium (8.4-10.2) mg/dL Total Bilirubin (0.2-1.3) mg/dL AST (14-36) U/L ALT (4-34) U/L Alkaline Phosphatase (38-126) U/L Total Protein (6.3-8.2) g/dL Albumin (3.5-5.0) g/dL Amylase (30-110) U/L Lipase (23-300) U/L Urine Color Light Yellow Urine Appearance Clear (Clear) Urine pH 6.0 (5.0-8.0) Ur Specific [place] 1.004 (1.001-1.035) Urine Protein Negative (Negative) Urine Glucose (UA) Negative (Negative) Urine Ketones Negative (Negative) Urine Blood Negative (Negative) Urine Nitrite Negative (Negative) Urine Bilirubin Negative (Negative) Urine Urobilinogen <2.0 (<2.0) mg/dL Ur Leukocyte Esterase Small H (Negative) Urine RBC 1 (0-5) /hpf Urine WBC 5 (0-5) /hpf Ur Squamous Epith Cells 2 (0-4) /hpf Urine Bacteria Rare H (None) /hpf Hyaline Casts 4 H (0-2) /lpf Urine Mucus Rare H (None) /hpf Urine HCG, Qual (Not Detectd) 11/18/20 11/18/20 11/18/20 Range/Units 16:37 16:37 16:37 WBC (3.8-10.6) k/uL RBC (3.80-5.40) m/uL Hgb (11.4-16.0) gm/dL Hct (34.0-46.0) % MCV (80.0-100.0) fL MCH (25.0-35.0) pg MCHC (31.0-37.0) g/dL RDW (11.5-15.5) % Plt Count (150-450) k/uL MPV Neutrophils % % Lymphocytes % % Monocytes % % Eosinophils % % Basophils % % Neutrophils # (1.3-7.7) k/uL Lymphocytes # (1.0-4.8) k/uL Monocytes # (0-1.0) k/uL Eosinophils # (0-0.7) k/uL Basophils # (0-0.2) k/uL Hypochromasia Anisocytosis Microcytosis PT (9.0-12.0) sec INR (<1.2) APTT (22.0-30.0) sec Sodium 135 L (137-145) mmol/L Potassium 4.0 (3.5-5.1) mmol/L Chloride 110 H (98-107) mmol/L Carbon Dioxide 18 L (22-30) mmol/L Anion Gap 7 mmol/L BUN 3 L (7-17) mg/dL Creatinine 0.75 (0.52-1.04) mg/dL Est GFR (CKD-EPI)AfAm >90 (>60 ml/min/1.73 sqM) Est GFR (CKD-EPI)NonAf >90 (>60 ml/min/1.73 sqM) Glucose 104 H (74-99) mg/dL Plasma Lactic Acid Jeremy 1.6 (0.7-2.0) mmol/L Calcium 9.7 (8.4-10.2) mg/dL Total Bilirubin 0.1 L (0.2-1.3) mg/dL AST 15 (14-36) U/L ALT 16 (4-34) U/L Alkaline Phosphatase 139 H (38-126) U/L Total Protein 7.1 (6.3-8.2) g/dL Albumin 4.0 (3.5-5.0) g/dL Amylase 92 (30-110) U/L Lipase 66 (23-300) U/L Urine Color Urine Appearance (Clear) Urine pH (5.0-8.0) Ur Specific [place] (1.001-1.035) Urine Protein (Negative) Urine Glucose (UA) (Negative) Urine Ketones (Negative) Urine Blood (Negative) Urine Nitrite (Negative) Urine Bilirubin (Negative) Urine Urobilinogen (<2.0) mg/dL Ur Leukocyte Esterase (Negative) Urine RBC (0-5) /hpf Urine WBC (0-5) /hpf Ur Squamous Epith Cells (0-4) /hpf Urine Bacteria (None) /hpf Hyaline Casts (0-2) /lpf Urine Mucus (None) /hpf Urine HCG, Qual Not Detected (Not Detectd) Disposition Clinical Impression: Dehydration, Intractable abdominal pain, Crohns disease Disposition: ADMITTED IP TO THIS [facility] Condition: Stable Is patient prescribed a controlled substance at d/c from ED?: No Referrals: Joan Meeks MD [Primary Care Provider] - 1-2 days Time of Disposition: 19:45 Decision to Admit Reason: Admit from EC Decision Date: 11/18/20 Decision Time: 19:45
--- NOTE | 2020-11-18 20:51 | HP ---
HISTORY AND PHYSICAL CHIEF COMPLAINTS: Abdominal pain and diarrhea as well as weakness. HISTORY OF PRESENT ILLNESS: This 35-year-old woman with a past medical history of multiple medical problems, including a history of asthma, fibromyalgia, GERD, hypertension, neurological disorder, seizure disorder, Crohn's disease, diverticulosis, adenoidectomy, anxiety, bipolar, depression, PTSD, being followed by Dr. Joan Meeks in the outpatient setting, also had diagnosed ulcerative [place] the [place]. Previously the patient was also diagnosed to have Crohn's disease in [facility]. Now the patient is complaining of diffuse abdominal pain. The patient had diarrhea, rectal bleed and multiple other medical problems. The patient came to [facility] and was admitted for further evaluation and treatment. The patient was recently admitted with recurrent seizures due to noncompliance issues apparently. There is no history of any fever, rigors or chills at this time. The investigations and evaluations are pending at this time. The patient did have multiple CT scans, and most recent CT scan was done on 09/27/2020, which I reviewed personally. It showed multiple abnormalities, including mild circumferential pancolonic wall thickening, and bilateral was also noted. There is no history of any fever, rigor or chills at this time. Patient also does complain of right leg pain. PAST MEDICAL HISTORY: History of asthma, fibromyalgia, GERD, hypertension, seizure disorder, hypothyroidism. MEDICATIONS: Home medications are oxycodone, Haldol, Zocor, Seroquel, Protonix, Paxil, Zofran, Singulair, Claritin, Zestoretic, Synthroid, Vimpat, hydrocortisone, Neurontin, folic acid, Pepcid, Depakote, vitamin B12, Qvar, Bactrim, albuterol. ALLERGIES: MULTIPLE ALLERGIES, including BENTYL, ZITHROMAX, BACLOFEN, STADOL, CEPHALOSPORIN, FLEXERIL, CLOXACILLIN, , KETOROLAC, TORADOL, MEPERIDINE, DEMEROL, LYRICA, RISPERDAL, BACTRIM, MEDROL. FAMILY HISTORY: History of cancer, CVA, TIA, DVT, DJD, hypothyroidism. SOCIAL HISTORY: History of smoking. REVIEW OF SYSTEMS: ENT: No diminished hearing. No diminished vision. CARDIOVASCULAR SYSTEM: As mentioned earlier. RESPIRATORY SYSTEM: As mentioned earlier GI: As mentioned earlier. : No dysuria. NERVOUS SYSTEM: No numbness, weakness. ALLERGY/IMMUNOLOGY: No asthma or hay fever. MUSCULOSKELETAL: As mentioned earlier. HEMATOLOGY/ONCOLOGY: No history of anemia. ENDOCRINE: No history of diabetes or hypothyroidism. CONSTITUTIONAL: As mentioned earlier. DERMATOLOGY: Negative. RHEUMATOLOGY: Negative. PSYCHIATRY: As mentioned earlier. PHYSICAL EXAMINATION: Patient is alert, oriented x3. Pulse 95, blood pressure 109/88, respiration 20, temperature 97.8, pulse ox 98% on room air. HEENT: Conjunctivae normal. NECK: No jugular venous distention. CARDIOVASCULAR: S1, S2 muffled. RESPIRATION: Breath sounds diminished at the bases. ABDOMEN: Soft, obese. Mild diffuse tenderness present. No guarding. No rigidity. No mass palpable. Bowel sounds present. No ascites. LEGS: No edema. No swelling. Some minimal pain noted. NERVOUS SYSTEM: Higher functions as mentioned earlier. Moves all 4 limbs. No focal motor or sensory deficit. LYMPHATICS: No lymph node palpable in neck, axillae or groin. SKIN: No ulcer, rash, bleeding. JOINTS: No active deforming arthropathy. LABS: Labs are awaited. ASSESSMENT: 1. Possible Crohn's disease, acute exacerbation, with severe abdominal pain, diarrhea and gastrointestinal bleed. 2. Right leg pain. 3. History of asthma. 4. Fibromyalgia. 5. Gastroesophageal reflux disease. 6. Hypertension. 7. History of seizure disorder. 8. Hypothyroidism. 9. History of previous noncompliance. 10.History of chronic colitis. 11.History of migraine. 12.History of adenoidectomy. 13.History of cholecystectomy. 14.History of chronic pain syndrome. 15.History of anxiety, bipolar, depression, posttraumatic stress disorder. 16.History of nicotine dependence. 17.Obesity with body mass index of 34.2. 18.Leukocytosis. 19.Hyponatremia. RECOMMENDATIONS AND DISCUSSION: In this 35-year-old woman who presented with multiple complex medical issues, we will monitor the patient closely. I would recommend intravenous steroids. Symptomatic treatment. Resume home medications. DVT prophylaxis. Smoking cessation. GI consultation. The prognosis is guarded because of multiple complex medical issues. Further recommendations to follow. A copy of this dictation is being forwarded to Dr. Joan Meeks, who is the primary physician. MMODL / IJN: [id number] / AYUSH
[2020-11-18] MEDS: MORPHINE SULFATE 4 MG/ML SYRINGE IV PRN (22:20)
[2020-11-19] MEDS ORDERED: diphenhydrAMINE 25 MG CAP PO STA (00:47)
[2020-11-19] MEDS: QUEtiapine 100 MG TAB PO SCH ×2 (01:05→21:04)
[2020-11-19] MEDS: MORPHINE SULFATE 4 MG/ML SYRINGE IV PRN ×2 (04:52→09:00)
[2020-11-19] MEDS: SODIUM CHLORIDE 0.9% 1,000 ML IV SCH ×2 (09:05→23:08)
[2020-11-19] MEDS ORDERED: PROMETHAZINE 25 MG TAB PO PRN (11:08)
[2020-11-19] MEDS ORDERED: DICYCLOMINE 10 MG CAP PO PRN (11:11)
[2020-11-19 11:31] LABS: Anisocytosis Slight; HCT 36.2 % (34.0-46.0); HGB 11.4 gm/dL (11.4-16.0); Hypochromasia Moderate; MCH 25.3 pg (25.0-35.0); MCHC 31.6 g/dL (31.0-37.0); Microcytosis Slight; Platelet Count 566 k/uL (150-450); RBC 4.53 m/uL (3.80-5.40); RDW 18.6 % (11.5-15.5); WBC 10.6 k/uL (3.8-10.6)
[2020-11-19] MEDS ORDERED: MONTELUKAST 10 MG TAB PO PRN (11:47)
[2020-11-19] MEDS ORDERED: BUTALB/APAP/CAFF 50-325-40MG TAB PO PRN (11:47)
[2020-11-19] MEDS ORDERED: ALBUTEROL NEBULIZED 2.5 MG/3 ML INHALATION PRN (11:47)
[2020-11-19] MEDS ORDERED: oxyCODONE-APAP 10-325MG 1 EACH TAB PO PRN (11:47)
[2020-11-19] MEDS ORDERED: ONDANSETRON 4 MG TAB PO PRN (11:47)
[2020-11-19] MEDS ORDERED: HYDROmorphone 1 MG/ML 1 ML SYRINGE IVP PRN (11:53)
[2020-11-19] MEDS ORDERED: PANTOPRAZOLE SODIUM 40 MG GRANULE PKT PO SCH (12:00)
[2020-11-19] MEDS: FAMOTIDINE 20 MG TAB PO SCH ×2 (12:11→21:03)
[2020-11-19] MEDS: PANTOPRAZOLE 40 MG/10 ML VIAL IVP SCH ×2 (12:13→21:04)
[2020-11-19] MEDS: DIVALPROEX 500 MG TABLET.DR PO SCH ×3 (12:49→21:53)
[2020-11-19] MEDS: BALSALAZIDE DISODIUM 750 MG CAPSULE PO SCH ×3 (12:49→21:53)
[2020-11-19] MEDS: CYANOCOBALAMIN 500 MCG TAB PO SCH (12:49)
[2020-11-19] MEDS: LACOSAMIDE 50 MG TABLET PO SCH ×2 (12:50→21:02)
[2020-11-19] MEDS: GABAPENTIN 400 MG CAP PO SCH ×3 (12:50→21:03)
[2020-11-19] MEDS: FOLIC ACID 1 MG TAB PO SCH (12:50)
[2020-11-19] MEDS: LISINOPRIL-HCTZ 20-25 MG 1 EACH TAB PO SCH (12:50)
[2020-11-19] MEDS: haloperidoL 1 MG TAB PO SCH ×2 (12:50→21:53)
[2020-11-19] MEDS: LEVOTHYROXINE 137 MCG TAB PO SCH (12:50)
[2020-11-19] MEDS: DICYCLOMINE 10 MG CAP PO SCH ×2 (12:51→17:05)
[2020-11-19] MEDS: PARoxetine 20 MG TAB PO SCH (12:51)
[2020-11-19] MEDS: LORATADINE 10 MG TAB PO SCH (12:51)
[2020-11-19 14:10] LABS: Erythrocyte Sedimentation Rate 12 mm/hr (0-20)
[2020-11-19] MEDS: IOPAMIDOL CONTRAST (ORAL USE) VIAL PO PRN ×2 (14:55→15:56)
[2020-11-19] MEDS: HYDROmorphone 0.5 MG/0.5 ML SYRINGE IVP PRN ×3 (14:56→21:05)
--- NOTE | 2020-11-19 15:29 | P.CONS ---
History of Present Illness - Reason for Consult Consult date: 11/19/20 Abdominal pain, ulcerative colitis Requesting physician: Osvaldo Johnson - Chief Complaint Abdominal pain, recent leg injury - History of Present Illness This is a 35 year old female with past medical history of ulcerative colitis and anxiety who currently takes balsalazide and dicyclomine. She was diagnosed with Crohn's colitis at age 15. She follows with Dr. Pan, her last colonoscopy was 10-23 showing a normal colon with no active colitis or colorectal neoplasia. The patient came to the emergency department with complaints of abdominal pain associated with some nausea and vomiting and right lower extremity pain after sustaining a fall. She states she normally has around 5 loose bowel movements a day which is normal for her, she states that she has some small amounts of blood in her stool always. States she had 2 bowel movements today, and one episode of vomiting. Labs on presentation show a WBC of 12.7, hemoglobin 12, hematocrit 38, platelet count 646, total bilirubin 0.1, alkaline phosphatase 139, AST 15, a LT 16, amylase 92, lipase 66. The patient denies any sick contacts, no fevers, or chills. Review of Systems REVIEW OF SYSTEMS: CARDIOPULMONARY: No chest pain or shortness of breath. Gastrointestinal: Right-sided abdominal pain, lower abdominal cramping. Nausea with one episode of vomiting.. No hematemesis, coffee-ground emesis. Loose stools, which are normal for patient up to 5 a day. States small amounts of blood in stool which again is a normal finding for patient GENITOURINARY: No dysuria or hematuria. MUSCULOSKELETAL: Reports normal range of motion., Right lower extremity pain. SKIN: No rashes. No jaundice. ENDOCRINE: No chills, fevers. No excessive weight gain or loss. No polydipsia or polyuria. PSYCHIATRIC: Unremarkable. NEUROLOGY: No change in mental status. Denies dizziness, headache. ENT: Vision unremarkable. CONSTITUTIONAL: No recent weight loss. No fever, chills, night sweats. Past Medical History Past Medical History: Asthma, Fibromyalgia, GERD/Reflux, Hypertension, Neurologic Disorder, Seizure Disorder, Thyroid Disorder Additional Past Medical History / Comment(s): crohns disease, diverticulosis, ibs, chronic colitis.,carpal tunnel solo wrists, anemia, chronic back pain , migraines, pinched nerves, Hx fall in June and broke old fracture above right ankle- wears boot., frequent nausea, last seizure 1 month ago., hx pancreatitis. History of Any Multi-Drug Resistant Organisms: None Reported Past Surgical History: Adenoidectomy, Appendectomy, Cholecystectomy, Orthopedic Surgery, Tonsillectomy Additional Past Surgical History / Comment(s): EGD/colonoscopy, right ankle surgery, broken nose surgery Past Anesthesia/Blood Transfusion Reactions: Previous Problems w/ Anesthesia, Postoperative Nausea & Vomiting (PONV) Additional Past Anesthesia/Blood Transfusion Reaction / Comm: hallucinations x1 Past Psychological History: Anxiety, Bipolar, Depression, PTSD Additional Psychological History / Comment(s): . Smoking Status: Current every day smoker Past Alcohol Use History: None Reported Additional Past Alcohol Use History / Comment(s): started smoking age 14 down to half pack per day. Past Drug Use History: None Reported - Past Family History Father Family Medical History: Diabetes Mellitus, Hyperlipidemia Mother Family Medical History: Cancer, CVA/TIA, Deep Vein Thrombosis (DVT), Osteoarthritis (OA), Thyroid Disorder Additional Family Medical History / Comment(s): Extensive tattoos throughout body Medications and Allergies Home Medications Medication Instructions Recorded Confirmed Type Beclomethasone Dipropionate [Qvar 2 puff INHALATION RT-DAILY PRN 02/07/18 11/18/20 History 80 mcg] Levothyroxine Sodium [Synthroid] 137 mcg PO DAILY 08/07/18 11/18/20 History Montelukast [Singulair] 10 mg PO DAILY PRN 08/07/18 11/18/20 History Balsalazide Disodium 2,250 mg PO TID 11/16/19 11/18/20 History Lisinopril-Hctz 20-25 mg 2 tab PO DAILY 11/16/19 11/18/20 History [Zestoretic 20-25] Famotidine [Pepcid] 20 mg PO BID 03/06/20 11/18/20 History PARoxetine HCL 40 mg PO DAILY 03/06/20 11/18/20 History Simvastatin [Zocor] 20 mg PO HS 03/06/20 11/18/20 History Albuterol Inhaler [Ventolin Hfa 2 puff INHALATION RT-QID PRN 05/29/20 11/18/20 History Inhaler] Cyanocobalamin [Vitamin B-12] 1,000 mcg PO DAILY #30 tab 06/04/20 11/18/20 Rx Folic Acid 1 mg PO DAILY #30 tab 06/04/20 11/18/20 Rx Lacosamide [Vimpat] 50 mg PO BID #60 tablet 06/04/20 11/18/20 Rx haloperidoL [Haldol] 1 mg PO BID #4 tab 06/04/20 11/18/20 Rx Divalproex [Depakote] 1,000 mg PO TID 07/14/20 11/18/20 History Loratadine [Claritin] 10 mg PO DAILY 07/14/20 11/18/20 History QUEtiapine [SEROquel] 500 mg PO HS 07/14/20 11/18/20 History oxyCODONE-APAP 10-325MG [Percocet 1 tab PO TID PRN 07/14/20 11/18/20 History 10-325 mg] Pantoprazole Sodium 40 mg PO DAILY 08/11/20 11/18/20 History Gabapentin [Neurontin] 1,200 mg PO TID 10/01/20 11/18/20 History Butalb/APAP/Caff 50-325-40Mg 1 tab PO DAILY PRN 11/18/20 11/18/20 History [Fioricet 50-325-40] Dicyclomine [Bentyl] 10 mg PO AC-TID 11/18/20 11/18/20 History ondansetron HCL [Zofran] 8 mg PO Q4-6H PRN 11/18/20 11/18/20 History Allergies Allergy/AdvReac Type Severity Reaction Status Date / Time dicyclomine [From Bentyl] Allergy Severe Hallucinati Verified 11/18/20 20:49 ons granisetron HCl [From Kytril] Allergy Severe Anaphylaxis Verified 11/18/20 20:49 azithromycin Allergy Rash/Hives Verified 11/18/20 20:49 baclofen Allergy Rash/Hives Verified 11/18/20 20:49 butorphanol [From Stadol] Allergy Rash/Hives Verified 11/18/20 20:49 butorphanol tartrate Allergy Rash/Hives Verified 11/18/20 20:49 [From Stadol] Cephalosporins Allergy Rash/Hives Verified 11/18/20 20:49 cyclobenzaprine Allergy Unknown Verified 11/18/20 20:49 [From Flexeril] dicloxacillin Allergy Rash/Hives Verified 11/18/20 20:49 granisetron [From Kytril] Allergy Anaphylaxis Verified 11/18/20 20:49 ketorolac Allergy Rash/Hives Verified 11/18/20 20:49 ketorolac tromethamine Allergy Rash/Hives Verified 11/18/20 20:49 [From Toradol] meperidine Allergy Unknown Verified 11/18/20 20:49 meperidine HCl [From Demerol] Allergy Swelling Verified 11/18/20 20:49 pregabalin [From Lyrica] Allergy Unknown Verified 11/18/20 20:49 risperidone [From Risperdal] Allergy Dyspnea Verified 11/18/20 20:49 sulfamethoxazole Allergy Rash/Hives Verified 11/18/20 20:49 [From Bactrim] trimethoprim [From Bactrim] Allergy Rash/Hives Verified 11/18/20 20:49 methylprednisolone AdvReac Vomiting & Verified 11/18/20 20:49 [From Medrol] Headache Physical Exam Vitals: Vital Signs Temp Pulse Resp BP Pulse Ox 11/19/20 08:59 80 18 125/66 97 11/19/20 06:00 78 16 119/88 97 11/19/20 03:00 82 16 115/86 97 11/18/20 22:00 81 18 111/80 98 11/18/20 20:09 78 16 128/94 96 11/18/20 16:15 97.8 F 95 20 109/88 98 Intake and Output 11/18/20 11/19/20 11/19/20 22:59 06:59 14:59 Other: Weight 98.883 kg General appearance: The patient is alert, oriented, appears in no acute distress. HET: Head is normocephalic and atraumatic. Conjunctiva pink. Sclera anicteric. Neck: Supple without lymphadenopathy. Trachea midline. Heart: S1 S2. Regular rate and rhythm. Lungs: Clear to auscultation. Abdomen: Soft, right-sided abdominal tenderness, lower abdominal tenderness, nondistended with bowel sounds. No guarding or rigidity. Skin: No rashes. No jaundice. Extremities: Normal skin color and turgor. No pedal edema. Neurological: No focal deficits. Alert and oriented 3.. Results CBC & Chem 7: 11/19/20 11:17 11/18/20 16:37 Labs: Abnormal Lab Results - Last 24 Hours (Table) 11/18/20 11/18/20 11/18/20 Range/Units 16:37 16:37 16:37 WBC 12.7 H (3.8-10.6) k/uL MCV 78.6 L (80.0-100.0) fL MCH 24.8 L (25.0-35.0) pg RDW 18.8 H (11.5-15.5) % Plt Count 646 H (150-450) k/uL Neutrophils # 7.8 H (1.3-7.7) k/uL Sodium 135 L (137-145) mmol/L Chloride 110 H (98-107) mmol/L Carbon Dioxide 18 L (22-30) mmol/L BUN 3 L (7-17) mg/dL Glucose 104 H (74-99) mg/dL Total Bilirubin 0.1 L (0.2-1.3) mg/dL Alkaline Phosphatase 139 H (38-126) U/L Ur Leukocyte Esterase Small H (Negative) Urine Bacteria Rare H (None) /hpf Hyaline Casts 4 H (0-2) /lpf Urine Mucus Rare H (None) /hpf Assessment and Plan (1) Abdominal pain Narrative/Plan: 35-year-old female with a past medical history of ulcerative colitis who presented to the emergency department with complaints of abdominal pain and right lower extremity pain after sustaining a fall. Patient states she is been having right-sided abdominal pain and lower abdominal cramping. She has loose bowels, which she states is normal for her up to 5 a day. States she does have some small amounts of blood which is normal for her. She takes both solid side and dicyclomine daily. She recently underwent a colonoscopy with Dr. Pan on 10-23 showing a normal colon with no active colitis or colorectal neoplasia. Patient states she had one episode of vomiting. No coffee-ground or hematemesis noted. CRP and sed rate ordered and within normal limits. Unsure of etiology of abdominal pain if it's related to colitis or the recent fall. We'll obtain CT of the abdomen and pelvis. Current Visit: Yes Status: Acute Code(s): R10.9 - UNSPECIFIED ABDOMINAL PAIN SNOMED Code(s): 52023407 (2) History of ulcerative colitis Current Visit: Yes Status: Acute Code(s): Z87.19 - PERSONAL HISTORY OF OTHER DISEASES OF THE DIGESTIVE SYSTEM SNOMED Code(s): 870262768 Plan: 1. Continue symptomatic and supportive care 2. Continue balsalazide and dicyclomine 3. Antiemetics as needed 4. CRP and sed rate ordered 5. C. difficile toxin ordered 6. CT of abdomen and pelvis ordered 7. Diet as tolerated 8. No plans on endoscopic able evaluation as patient recently underwent col onoscopy on 10/04/20 which was normal Thank you for this consultation, we will continue to follow Dr. Raoul Pan I agree with the dictator's note, documented as a scribe by Sadia Carrasco.
[2020-11-19] MEDS ORDERED: BALSALAZIDE DISODIUM 750 MG CAPSULE PO SCH (16:00)
--- NOTE | 2020-11-19 17:31 | CT ---
EXAMINATION TYPE: CT abdomen pelvis w con DATE OF EXAM: 11/19/2020 COMPARISON: 09/26/2020 HISTORY: Abdominal pain. Recent fall. History of crohn's and colitis. CT DLP: 1162.8 mGycm Automated exposure control for dose reduction was used. CONTRAST: Performed with IV Contrast, patient injected with 100 mL of Isovue M300. Images obtained from the diaphragm to the floor the pelvis with oral and IV contrast. Lung bases are clear. There is no pleural effusion. Heart size is normal. There is no pericardial eff usion. Liver spleen stomach pancreas appear intact. There are clips from cholecystectomy. Bile ducts are nondilated. There is 2 cm left adrenal mass. Kidneys have normal size. There is no hydronephrosis. There is izabela l excretion on the delayed images. There is no retroperitoneal adenopathy. The bladder distends viridiana hly. There is no inguinal hernia. There is no free fluid in the pelvis. There is no mesenteric edema. There is no ascites or free air. There is no bowel obstruction. Appendi x is not definitely seen. There is no sign of thickened appendix. I see no intestinal wall thickening . Lumbar vertebra have normal alignment. There is no compression fracture. Bony pelvis is intact. The h ip joints are intact. IMPRESSION: No acute abnormality of the abdomen pelvis. Left adrenal mass not changed compared to old exam. This patient has had approximately 21 CT scan abdomen pelvis at this facility. Consider ultrasound or MRI in view of the radiation exposure.
--- NOTE | 2020-11-19 17:36 | PN ---
PROGRESS NOTE DATE OF SERVICE: 11/19/2020 This 35-year-old woman who was admitted with abdominal pain and diarrhea had Crohn's disease, acute exacerbation. The patient also had diarrhea also. Gastroenterology following the patient. No chest pain. No palpitations. No fever. PHYSICAL EXAMINATION: Alert and oriented times three. Pulse 83, blood pressure 127/87, respiration 17, temperature 98.1, pulse ox 98 percent on room air. HEENT: Conjunctivae normal. Neck: No JVD. Cardiovascular: S1, S2 muffled. Respiratory System: Breath sounds diminished at the bases. A few scattered rhonchi. Abdomen: Soft. Mild diffuse tenderness present. Legs no edema. No swelling. Nervous system: No focal deficits. LABS: WBC 10.6, hemoglobin 11.4, sodium is not available. ASSESSMENT: 1. Crohn's disease, acute exacerbation, with severe abdominal pain, diarrhea, GI bleed, failure of outpatient treatment. 2. Increased WBC. 3. Right leg pain. 4. History of asthma. 5. Fibromyalgia. 6. Gastroesophageal reflux disease. 7. Hypertension. 8. History of seizure disorder. 9. Hypothyroidism. 10.History of previous noncompliance. 11.History of chronic colitis. 12.History of migraines. 13.History of adenoidectomy. 14.History of cholecystectomy. 15.History of chronic pain syndrome. 16.Anxiety, bipolar, depression posttraumatic stress disorder. 17.History of nicotine dependence. 18.Obesity with body mass index of 34.2. 19.Leukocytosis. 20.Hyponatremia. RECOMMENDATIONS AND DISCUSSION: I recommend to continue current medications, continue monitoring, symptomatic treatment. ESR is only 12 with CRP less than 0.5. Repeat labs. Continue symptomatic treatment. Gastroenterology has seen the patient and recommended supportive treatment. CT scan of the abdomen and pelvis also ordered. Further recommendations to follow. Prognosis guarded. MMODL / IJN: [id number] /
[2020-11-19] MEDS: FLUTICASONE 110 MCG INHALER INHALATION SCH (20:53)
[2020-11-19] MEDS ORDERED: QUEtiapine 100 MG TAB PO SCH (21:00)
[2020-11-19] MEDS: ATORVASTATIN 10 MG TAB PO SCH (21:03)
[2020-11-20] MEDS: SODIUM CHLORIDE 0.9% 1,000 ML IV SCH (02:51)
[2020-11-20] MEDS: HYDROmorphone 0.5 MG/0.5 ML SYRINGE IVP PRN ×6 (05:14→21:19)
[2020-11-20] MEDS: LEVOTHYROXINE 137 MCG TAB PO SCH (05:48)
[2020-11-20] MEDS: GABAPENTIN 400 MG CAP PO SCH ×3 (08:41→21:17)
[2020-11-20] MEDS: FOLIC ACID 1 MG TAB PO SCH (08:42)
[2020-11-20] MEDS: LORATADINE 10 MG TAB PO SCH (08:42)
[2020-11-20] MEDS: LACOSAMIDE 50 MG TABLET PO SCH ×2 (08:42→21:17)
[2020-11-20] MEDS: FAMOTIDINE 20 MG TAB PO SCH ×2 (08:42→21:17)
[2020-11-20] MEDS: PANTOPRAZOLE 40 MG/10 ML VIAL IVP SCH ×2 (08:43→21:18)
[2020-11-20] MEDS: CYANOCOBALAMIN 500 MCG TAB PO SCH (08:43)
[2020-11-20] MEDS: haloperidoL 1 MG TAB PO SCH ×2 (08:44→21:18)
[2020-11-20] MEDS: BALSALAZIDE DISODIUM 750 MG CAPSULE PO SCH ×3 (08:44→21:18)
[2020-11-20] MEDS: DIVALPROEX 500 MG TABLET.DR PO SCH ×3 (08:44→21:19)
[2020-11-20] MEDS: PARoxetine 20 MG TAB PO SCH (08:44)
[2020-11-20] MEDS: LISINOPRIL-HCTZ 20-25 MG 1 EACH TAB PO SCH (08:44)
[2020-11-20] MEDS: DICYCLOMINE 10 MG CAP PO SCH ×3 (08:45→16:55)
[2020-11-20] MEDS: FLUTICASONE 110 MCG INHALER INHALATION SCH ×2 (09:01→20:20)
--- NOTE | 2020-11-20 12:40 | P.PN ---
Subjective Progress Note Date: 11/20/20 Principal diagnosis: abdominal pain This is a 35-year-old female with a known history of ulcerative colitis diagnosed as a teenager. She came into the emergency department yesterday complaining of abdominal pain and right lower extremity pain after sustaining a fall. She underwent a CT of the abdomen with no acute findings, also mentioned that she has had 21 CAT scans done in this hospital. This was discussed with the patient. She is denying any nausea, vomiting, and states her abdominal pain has improved. States she still having loose bowel movements but that is normal. She had 2 this morning. States right lower extremity still has some discomfort. She has been afebrile. Objective - Vital Signs Vital signs: Vital Signs Temp 98.5 F 11/20/20 07:00 Pulse 74 11/20/20 07:00 Resp 17 11/20/20 07:00 BP 122/81 11/20/20 07:00 Pulse Ox 98 11/20/20 07:00 Intake & Output 11/19/20 11/20/20 11/20/20 18:59 06:59 18:59 Weight 98.883 kg Other: Voiding Method Toilet # Voids 0 1 - Exam General appearance: The patient is alert, oriented, appears in no acute distress. HET: Head is normocephalic and atraumatic. Conjunctiva pink. Sclera anicteric. Neck: Supple without lymphadenopathy. Abdomen: Soft, mild lower tenderness, nondistended with bowel sounds. No guarding or rigidity. Extremities: Normal skin color and turgor. No pedal edema Skin: No rashes, no jaundice Neurological: No focal deficits. Alert and oriented 3. - Labs CBC & Chem 7: 11/19/20 11:17 11/18/20 16:37 Labs: Abnormal Lab Results - Last 24 Hours (Table) 11/19/20 Range/Units 11: RDW 18.6 H (11.5-15.5) % Plt Count 566 H (150-450) k/uL Assessment and Plan (1) Abdominal pain Narrative/Plan: 35-year-old female with a past medical history of ulcerative colitis who pr esented to the emergency department with complaints of abdominal pain and right lower extremity pain after sustaining a fall. Patient states she is been having right-sided abdominal pain and lower abdominal cramping. She has loose bowels, which she states is normal for her up to 5 a day. States she does have some small amounts of blood which is normal for her. She takes both solid side and dicyclomine daily. She recently underwent a colonoscopy with Dr. Pan on 10-23 showing a normal colon with no active colitis or colorectal neoplasia. Patient states she had one episode of vomiting. No coffee-ground or hematemesis noted. CRP and sed rate ordered and within normal limits. Unsure of etiology of abdominal pain if it's related to colitis or the recent fall. We'll obtain CT of the abdomen and pelvis. Current Visit: Yes Status: Acute Code(s): R10.9 - UNSPECIFIED ABDOMINAL PAIN SNOMED Code(s): 98412923 (2) History of ulcerative colitis Current Visit: Yes Status: Acute Code(s): Z87.19 - PERSONAL HISTORY OF OTHER DISEASES OF THE DIGESTIVE SYSTEM SNOMED Code(s): 413373721 Plan: 1. Continue symptomatic and supportive care 2. Continue balsalazide and dicyclomine 3. Antiemetics as needed 4. CRP and sed rate ordered, reviewed 5. C. difficile toxin ordered, awaiting results 6. CT of abdomen and pelvis ordered and reviewed 7. Advance to low fiber diet 8. No plans on endoscopic able evaluation as patient recently underwent colonoscopy on 10/04/20 which was normal Thank you for this consultation, if patient able to tolerate diet she may be cleared for discharge from gastroenterology Dr. Raoul Pan I agree with the dictator's note, documented as a scribe by Sadia Carrasco.
--- NOTE | 2020-11-20 19:44 | PN ---
PROGRESS NOTE DATE OF SERVICE: 11/20/2020 This 35-year-old woman is admitted with acute abdominal pain related to Crohn's disease, is being closely monitored at this time. The patient had a CT scan of the abdomen and pelvis yesterday which showed a left adrenal mass unchanged. The patient apparently had 21 CT scans in this facility previously. No chest pain. No palpitations. No fever. PHYSICAL EXAMINATION: Alert and oriented times three. Pulse 87, blood pressure 126/84, respiration 17, temperature 98.4, pulse ox 98% on room air. HEENT: Conjunctivae normal. Neck: No JVD. Cardiovascular: S1, S2 muffled. Respiratory system: Breath sounds diminished at the bases. Scattered rhonchi. No crackles. Abdomen: Soft, mild diffuse tenderness. Legs are no edema. No swelling. Nervous system: No focal deficits. LAB STUDIES: WBC 10.7, hemoglobin 11.4, and C-reactive protein is less than 0.5. ASSESSMENT: 1. Crohn's disease, acute exacerbation, severe abdominal pain, diarrhea, gastrointestinal bleed, with failure of outpatient treatment. 2. Increased WBC. 3. Right leg pain. 4. History of asthma. 5. Fibromyalgia. 6. Gastroesophageal reflux disease. 7. Hypertension. 8. History of seizure disorder. 9. Hypothyroidism. 10.History of previous noncompliance. 11.History of chronic colitis. 12.History of migraines. 13.History of adenoidectomy. 14.History of cholecystectomy. 15.History of chronic pain syndrome. 16.History of anxiety, bipolar depression, posttraumatic stress disorder. 17.History of nicotine dependence. 18.Obesity with body mass index 34.2. 19.Leukocytosis. 20.Hyponatremia. RECOMMENDATIONS AND DISCUSSION: Recommend to continue current medications, symptomatic treatment. Otherwise, follow with Gastroenterology. The patient is currently on a low-fiber diet. Continue to monitor. Guarded prognosis. Further recommendations to follow. MMODL / IJN: [id number] /
[2020-11-20] MEDS: ATORVASTATIN 10 MG TAB PO SCH (21:17)
[2020-11-20] MEDS: QUEtiapine 100 MG TAB PO SCH (21:18)
[2020-11-20] MEDS: NICOTINE 14MG/24HR PATCH TRANSDERM SCH (21:18)
[2020-11-21] MEDS: SODIUM CHLORIDE 0.9% 1,000 ML IV SCH (02:13)
[2020-11-21] MEDS: HYDROmorphone 0.5 MG/0.5 ML SYRINGE IVP PRN ×3 (02:14→10:25)
[2020-11-21] MEDS: LEVOTHYROXINE 137 MCG TAB PO SCH (06:26)
[2020-11-21] MEDS: DICYCLOMINE 10 MG CAP PO SCH (07:26)
[2020-11-21] MEDS: FLUTICASONE 110 MCG INHALER INHALATION SCH (07:53)
[2020-11-21] MEDS: PANTOPRAZOLE 40 MG/10 ML VIAL IVP SCH (08:20)
[2020-11-21] MEDS: FOLIC ACID 1 MG TAB PO SCH (08:21)
[2020-11-21] MEDS: LORATADINE 10 MG TAB PO SCH (08:21)
[2020-11-21] MEDS: FAMOTIDINE 20 MG TAB PO SCH (08:21)
[2020-11-21] MEDS: CYANOCOBALAMIN 500 MCG TAB PO SCH (08:21)
[2020-11-21] MEDS: NICOTINE 14MG/24HR PATCH TRANSDERM SCH (08:21)
[2020-11-21] MEDS: LACOSAMIDE 50 MG TABLET PO SCH (08:21)
[2020-11-21] MEDS: GABAPENTIN 400 MG CAP PO SCH (08:21)
[2020-11-21] MEDS: DIVALPROEX 500 MG TABLET.DR PO SCH (08:22)
[2020-11-21] MEDS: BALSALAZIDE DISODIUM 750 MG CAPSULE PO SCH (08:22)
[2020-11-21] MEDS: LISINOPRIL-HCTZ 20-25 MG 1 EACH TAB PO SCH (08:23)
[2020-11-21] MEDS: haloperidoL 1 MG TAB PO SCH (08:23)
[2020-11-21] MEDS: PARoxetine 20 MG TAB PO SCH (08:23)
[2020-11-21 08:49] VITALS: BP 144/77; PULSE 76; RESP 17; TEMP 98.1
--- NOTE | 2020-11-22 13:58 | P.DS ---
Providers Date of admission: 11/18/20 19:41 Expected date of discharge: 11/21/20 Attending physician: Osvaldo Johnson Consults: 11/18/20 19:41 Consult Physician Routine Consulting Provider: Deena Pan Consult Reason/Comments: ab pain Do you want consulting provider notified?: Yes Primary care physician: Joan Meeks [facility] Course: Final diagnosis Crohn's disease, acute exacerbation, severe abdominal pain, diarrhea, gastrointestinal bleed, with failure of outpatient treatment Increased WBC right leg pain History of asthma Fibromyalgia gastroesophageal reflux disease Hypertension History of seizure disorder Hypothyroidism History of previous noncompliance History of chronic colitis history of migraines history of adenoidectomy history of cholecystectomy history of chronic pain syndrome history of anxiety, bipolar depression, post-traumatic stress disorder History of nicotine dependence Obesity with a BMI of 34.2 Leukocytosis Hyponatremia Full code Discharge disposition Patient is being discharged in a stable condition with guarded prognosis to home. Patient will follow-up with Dr. Meeks in the outpatient setting upon discharge. Patient is to follow up with GI Dr. Pan as scheduled. Total time taken is greater than 35 minutes. Hospital Course This is a 35 year old female who was recently admitted for acute abdominal pain with a known history of crohn's disease and being closely monitored. Patient was evaluated by GI and recommending to continue with current medications and follow up as scheduled on 12/02/2020. Patient diet was advanced and tolerating with no reports of nausea or vomiting. Currently no reports of chest pain, shortness of breath, or palpitations. Patient is afebrile. No reports of nausea or vomiting and patient is tolerating diet. Patient will be discharged home today. Guarded prognosis as patient has multiple hospitalizations secondary to crohns exacerbations. On exam vital signs are stable. Cardio S1, S2 are muffled. Respiratory system shows diminished breath sounds at the bases with no wheezing or rhonchi noted. Abdomen is soft and nontender. Nervous system shows no focal deficits. Please refer to medication reconciliation sheet for a list of medications. Patient Condition at Discharge: Stable Plan - Discharge Summary Discharge Rx Participant: No New Discharge Prescriptions: New Nicotine 14Mg/24Hr Patch [Habitrol] 1 patch TRANSDERM DAILY #20 patch Continue Beclomethasone Dipropionate [Qvar 80 mcg] 2 puff INHALATION RT-DAILY PRN PRN Reason: Shortness Of Breath Montelukast [Singulair] 10 mg PO DAILY PRN PRN Reason: ALLERGIES Levothyroxine Sodium [Synthroid] 137 mcg PO DAILY Balsalazide Disodium 2,250 mg PO TID Lisinopril-Hctz 20-25 mg [Zestoretic 20-25] 2 tab PO DAILY Famotidine [Pepcid] 20 mg PO BID Simvastatin [Zocor] 20 mg PO HS PARoxetine HCL 40 mg PO DAILY Albuterol Inhaler [Ventolin Hfa Inhaler] 2 puff INHALATION RT-QID PRN PRN Reason: Shortness Of Breath Folic Acid 1 mg PO DAILY #30 tab haloperidoL [Haldol] 1 mg PO BID #4 tab Lacosamide [Vimpat] 50 mg PO BID #60 tablet Cyanocobalamin [Vitamin B-12] 1,000 mcg PO DAILY #30 tab Divalproex [Depakote] 1,000 mg PO TID Pantoprazole Sodium 40 mg PO DAILY Gabapentin [Neurontin] 1,200 mg PO TID Butalb/APAP/Caff 50-325-40Mg [Fioricet 50-325-40] 1 tab PO DAILY PRN PRN Reason: Migraine Headache Dicyclomine [Bentyl] 10 mg PO AC-TID QUEtiapine [SEROquel] 500 mg PO HS Loratadine [Claritin] 10 mg PO DAILY ondansetron HCL [Zofran] 8 mg PO Q4-6H PRN PRN Reason: Nausea And Vomiting Discontinued oxyCODONE-APAP 10-325MG [Percocet 10-325 mg] 1 tab PO TID PRN PRN Reason: Pain Discharge Medication List Beclomethasone Dipropionate [Qvar 80 mcg] 2 puff INHALATION RT-DAILY PRN 02/07/18 [History] Levothyroxine Sodium [Synthroid] 137 mcg PO DAILY 08/07/18 [History] Montelukast [Singulair] 10 mg PO DAILY PRN 08/07/18 [History] Balsalazide Disodium 2,250 mg PO TID 11/16/19 [History] Lisinopril-Hctz 20-25 mg [Zestoretic 20-25] 2 tab PO DAILY 11/16/19 [History] Famotidine [Pepcid] 20 mg PO BID 12/02/20 [History] PARoxetine HCL 40 mg PO DAILY 03/06/20 [History] Simvastatin [Zocor] 20 mg PO HS 03/06/20 [History] Albuterol Inhaler [Ventolin Hfa Inhaler] 2 puff INHALATION RT-QID PRN 05/29/20 [History] Cyanocobalamin [Vitamin B-12] 1,000 mcg PO DAILY #30 tab 06/04/20 [Rx] Folic Acid 1 mg PO DAILY #30 tab 06/04/20 [Rx] Lacosamide [Vimpat] 50 mg PO BID #60 tablet 06/04/20 [Rx] haloperidoL [Haldol] 1 mg PO BID #4 tab 06/04/20 [Rx] Divalproex [Depakote] 1,000 mg PO TID 07/14/20 [History] Loratadine [Claritin] 10 mg PO DAILY 07/14/20 [History] QUEtiapine [SEROquel] 500 mg PO HS 07/14/20 [History] Pantoprazole Sodium 40 mg PO DAILY 08/11/20 [History] Gabapentin [Neurontin] 1,200 mg PO TID 10/01/20 [History] Butalb/APAP/Caff 50-325-40Mg [Fioricet 50-325-40] 1 tab PO DAILY PRN 11/18/20 [History] Dicyclomine [Bentyl] 10 mg PO AC-TID 11/18/20 [History] ondansetron HCL [Zofran] 8 mg PO Q4-6H PRN 11/18/20 [History] Nicotine 14Mg/24Hr Patch [Habitrol] 1 patch TRANSDERM DAILY #20 patch 11/21/20 [Rx] Follow up Appointment(s)/Referral(s): Deena Pan MD [STAFF PHYSICIAN] - 12/02/20 12:00 pm Joan Meeks MD [Primary Care Provider] - 1-2 days Patient Instructions/Handouts: Crohn Disease (DC), Acute Abdominal Pain (DC) Activity/Diet/Wound Care/Special Instructions: Activity Limited until follow-up Follow-up with primary care provider upon discharge 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
== END 2020-11-21 11:45 | disposition home or self-care (01) | DRG 386 ==
LOC: EC 16:13 → 6NMEDSUR 19:41 → OBSVTOIN 11-21 09:46
PROVIDERS: ADMIT Hospitalist; ATTEND Hospitalist
DX: K50.111 Crohn's disease of large intestine with rectal bleeding (principal); E87.1 Hypo-osmolality and hyponatremia; F31.30 Bipolar disorder, current episode depressed, mild or moderate severity, unspecified; K21.9 Gastro-esophageal reflux disease without esophagitis; K57.30 Diverticulosis of large intestine without perforation or abscess without bleeding; G89.4 Chronic pain syndrome; E86.0 Dehydration; F17.210 Nicotine dependence, cigarettes, uncomplicated; M79.7 Fibromyalgia; I10 Essential (primary) hypertension; J45.909 Unspecified asthma, uncomplicated; D72.829 Elevated white blood cell count, unspecified; E03.9 Hypothyroidism, unspecified; F43.10 Post-traumatic stress disorder, unspecified; G40.909 Epilepsy, unspecified, not intractable, without status epilepticus; E27.9 Disorder of adrenal gland, unspecified; E66.9 Obesity, unspecified; F41.9 Anxiety disorder, unspecified; Z90.49 Acquired absence of other specified parts of digestive tract; Z68.34 Body mass index [BMI] 34.0-34.9, adult; Z79.899 Other long term (current) drug therapy; Z79.890 Hormone replacement therapy; Z91.19 Patient's noncompliance with other medical treatment and regimen; Z91.81 History of falling; Z87.81 Personal history of (healed) traumatic fracture
CPT/HCPCS: 36415; 74177; 80053; 81001; 81025; 82150; 83605; 83690; 85025; 85027; 85610; 85652; 85730; 86140; 87324; 94640; 96361; 96374; 96376; 99285

== ENCOUNTER 2021-01-11 14:18 | Emergency (ER) | payer OTHER ==
[2021-01-11 14:23] VITALS: TEMP 97.6
[2021-01-11] MEDS ORDERED: PANTOPRAZOLE 40 MG/10 ML VIAL IVP STA (14:47)
[2021-01-11] MEDS ORDERED: SODIUM CHLORIDE 0.9% 1,000 ML IV STA (14:47)
[2021-01-11] MEDS ORDERED: HYDROmorphone 0.5 MG/0.5 ML SYRINGE IVP STA (14:47)
--- NOTE | 2021-01-11 15:00 | ED ---
GI Bleed HPI - General Chief complaint: GI Bleed Stated complaint: Abdominal Pain Time Seen by Provider: 01/11/21 14:27 Source: patient, EMS, RN notes reviewed, old records reviewed Mode of arrival: EMS Limitations: no limitations - History of Present Illness Initial comments: Physical 35-year-old female well-known to emergency department with history of Crohn's disease. Patient states that she has had episodes of bloody stools yesterday. She's not had a bowel movement today. She reports that she called her primary care physician and showed him a picture of blood in the toilet and he recommended coming to the emergency department. Patient's GI specialist is Dr. Benz. Patient states that sh no nausea or vomiting. She was a diffuse abdominal pain. She arrived via EMS. - Related Data Home Medications Medication Instructions Recorded Confirmed Beclomethasone Dipropionate [Qvar 2 puff INHALATION RT-DAILY PRN 02/07/18 11/18/20 80 mcg] Levothyroxine Sodium [Synthroid] 137 mcg PO DAILY 08/07/18 11/18/20 Montelukast [Singulair] 10 mg PO DAILY PRN 08/07/18 11/18/20 Balsalazide Disodium 2,250 mg PO TID 11/16/19 11/18/20 Lisinopril-Hctz 20-25 mg 2 tab PO DAILY 11/16/19 11/18/20 [Zestoretic 20-25] Famotidine [Pepcid] 20 mg PO BID 03/06/20 11/18/20 PARoxetine HCL 40 mg PO DAILY 03/06/20 11/18/20 Simvastatin [Zocor] 20 mg PO HS 03/06/20 11/18/20 Albuterol Inhaler [Ventolin Hfa 2 puff INHALATION RT-QID PRN 05/29/20 11/18/20 Inhaler] Divalproex [Depakote] 1,000 mg PO TID 07/14/20 11/18/20 Loratadine [Claritin] 10 mg PO DAILY 07/14/20 11/18/20 QUEtiapine [SEROquel] 500 mg PO HS 07/14/20 11/18/20 Pantoprazole Sodium 40 mg PO DAILY 08/11/20 11/18/20 Gabapentin [Neurontin] 1,200 mg PO TID 10/01/20 11/18/20 Butalb/APAP/Caff 50-325-40Mg 1 tab PO DAILY PRN 11/18/20 11/18/20 [Fioricet 50-325-40] Dicyclomine [Bentyl] 10 mg PO AC-TID 11/18/20 11/18/20 ondansetron HCL [Zofran] 8 mg PO Q4-6H PRN 11/18/20 11/18/20 Previous Rx's Medication Instructions Recorded Cyanocobalamin [Vitamin B-12] 1,000 mcg PO DAILY #30 tab 06/04/20 Folic Acid 1 mg PO DAILY #30 tab 06/04/20 Lacosamide [Vimpat] 50 mg PO BID #60 tablet 06/04/20 haloperidoL [Haldol] 1 mg PO BID #4 tab 06/04/20 Nicotine 14Mg/24Hr Patch [Habitrol] 1 patch TRANSDERM DAILY #20 patch 11/21/20 Ciprofloxacin HCl [Cipro] 500 mg PO BID 5 Days #10 tab 01/11/21 predniSONE [Deltasone] 20 mg PO DIRECTED #12 tab 01/11/21 Allergies Allergy/AdvReac Type Severity Reaction Status Date / Time dicyclomine [From Bentyl] Allergy Severe Hallucinati Verified 01/11/21 14:23 ons granisetron HCl [From Kytril] Allergy Severe Anaphylaxis Verified 01/11/21 14:23 azithromycin Allergy Rash/Hives Verified 01/11/21 14:23 baclofen Allergy Rash/Hives Verified 01/11/21 14:23 butorphanol [From Stadol] Allergy Rash/Hives Verified 01/11/21 14:23 butorphanol tartrate Allergy Rash/Hives Verified 01/11/21 14:23 [From Stadol] Cephalosporins Allergy Rash/Hives Verified 01/11/21 14:23 cyclobenzaprine Allergy Unknown Verified 01/11/21 14:23 [From Flexeril] dicloxacillin Allergy Rash/Hives Verified 01/11/21 14:23 granisetron [From Kytril] Allergy Anaphylaxis Verified 01/11/21 14:23 ketorolac Allergy Rash/Hives Verified 01/11/21 14:23 ketorolac tromethamine Allergy Rash/Hives Verified 01/11/21 14:23 [From Toradol] meperidine Allergy Unknown Verified 01/11/21 14:23 meperidine HCl [From Demerol] Allergy Swelling Verified 01/11/21 14:23 pregabalin [From Lyrica] Allergy Unknown Verified 01/11/21 14:23 risperidone [From Risperdal] Allergy Dyspnea Verified 01/11/21 14:23 sulfamethoxazole Allergy Rash/Hives Verified 01/11/21 14:23 [From Bactrim] trimethoprim [From Bactrim] Allergy Rash/Hives Verified 01/11/21 14:23 methylprednisolone AdvReac Vomiting & Verified 01/11/21 14:23 [From Medrol] Headache Review of Systems ROS Statement: Those systems with pertinent positive or pertinent negative responses have been documented in the HPI. ROS Other: All systems not noted in ROS Statement are negative. Past Medical History Past Medical History: Asthma, Fibromyalgia, GERD/Reflux, Hypertension, Neurologic Disorder, Seizure Disorder, Thyroid Disorder Additional Past Medical History / Comment(s): crohns disease, diverticulosis, ibs, chronic colitis.,carpal tunnel solo wrists, anemia, chronic back pain , migraines, pinched nerves, Hx fall in June and broke old fracture above right ankle- wears boot., frequent nausea, last seizure 1 month ago., hx pancreatitis. History of Any Multi-Drug Resistant Organisms: None Reported Past Surgical History: Adenoidectomy, Appendectomy, Cholecystectomy, Orthopedic Surgery, Tonsillectomy Additional Past Surgical History / Comment(s): EGD/colonoscopy, right ankle surgery, broken nose surgery Past Anesthesia/Blood Transfusion Reactions: Previous Problems w/ Anesthesia, Postoperative Nausea & Vomiting (PONV) Additional Past Anesthesia/Blood Transfusion Reaction / Comment(s): hallucinations x1 Past Psychological History: Anxiety, Bipolar, Depression, PTSD Smoking Status: Current every day smoker Past Alcohol Use History: None Reported Past Drug Use History: None Reported - Past Family History Father Family Medical History: Diabetes Mellitus, Hyperlipidemia Mother Family Medical History: Cancer, CVA/TIA, Deep Vein Thrombosis (DVT), Osteoarthritis (OA), Thyroid Disorder Additional Family Medical History / Comment(s): Extensive tattoos throughout body General Exam - General Exam Comments Initial Comments: 45-year-old female. Alert and oriented. Mild to moderate discomfort. Limitations: no limitations General appearance: alert, in no apparent distress Head exam: Present: atraumatic, normocephalic, normal inspection Eye exam: Present: normal appearance, PERRL, EOMI. Absent: scleral icterus, conjunctival injection, periorbital swelling ENT exam: Present: normal exam, mucous membranes moist Neck exam: Present: normal inspection. Absent: tenderness, meningismus, lymphadenopathy Respiratory exam: Present: normal lung sounds bilaterally. Absent: respiratory distress, wheezes, rales, rhonchi, stridor Cardiovascular Exam: Present: regular rate, normal rhythm, normal heart sounds. Absent: systolic murmur, diastolic murmur, rubs, gallop, clicks GI/Abdominal exam: Present: soft, normal bowel sounds, other (tenderness ). Absent: distended, tenderness, guarding, rebound, rigid Extremities exam: Present: normal inspection, full ROM, normal capillary refill. Absent: tenderness, pedal edema, joint swelling, calf tenderness Back exam: Present: normal inspection Neurological exam: Present: alert, oriented X3, CN II-XII intact Psychiatric exam: Present: normal affect, normal mood Skin exam: Present: warm, dry, intact, normal color. Absent: rash Course Vital Signs 01/11/21 01/11/21 14:18 16:27 Temperature 97.6 F Pulse Rate 94 85 Respiratory 20 18 Rate Blood Pressure 143/126 151/96 O2 Sat by Pulse 99 96 Oximetry Medical Decision Making - Medical Decision Making 35-year-old female history of Crohn's colitis presents with bloody stool yesterday. Patient states "coal is positive. Hemoglobin is stable at 11. This is per she is always been. Patient's chemistry panels are unremarkable. Patient will be treated at this time for acute Crohn's exacerbation with steroid and antibiotic and we'll be discharging starter pack of pain medication. Advised to follow-up with GI specialist and primary care physician. All questions answered. - Lab Data Result diagrams: 01/11/21 14:55 01/11/21 14:55 Lab Results 01/11/21 01/11/21 01/11/21 Range/Units 14:55 14:55 14:55 WBC 10.7 H (3.8-10.6) k/uL RBC 4.41 (3.80-5.40) m/uL Hgb 11.0 L (11.4-16.0) gm/dL Hct 35.3 (34.0-46.0) % MCV 80.2 (80.0-100.0) fL MCH 25.0 (25.0-35.0) pg MCHC 31.2 (31.0-37.0) g/dL RDW 18.6 H (11.5-15.5) % Plt Count 718 H (150-450) k/uL MPV 7.0 Neutrophils % 54 % Lymphocytes % 34 % Monocytes % 9 % Eosinophils % 1 % Basophils % 0 % Neutrophils # 5.7 (1.3-7.7) k/uL Lymphocytes # 3.6 (1.0-4.8) k/uL Monocytes # 0.9 (0-1.0) k/uL Eosinophils # 0.1 (0-0.7) k/uL Basophils # 0.0 (0-0.2) k/uL Hypochromasia Slight Anisocytosis Slight Microcytosis Slight APTT 20.7 L (22.0-30.0) sec Sodium (137-145) mmol/L Potassium (3.5-5.1) mmol/L Chloride (98-107) mmol/L Carbon Dioxide (22-30) mmol/L Anion Gap mmol/L BUN (7-17) mg/dL Creatinine (0.52-1.04) mg/dL Est GFR (CKD-EPI)AfAm (>60 ml/min/1.73 sqM) Est GFR (CKD-EPI)NonAf (>60 ml/min/1.73 sqM) Glucose (74-99) mg/dL Calcium (8.4-10.2) mg/dL Magnesium (1.6-2.3) mg/dL Total Bilirubin (0.2-1.3) mg/dL AST (14-36) U/L ALT (4-34) U/L Alkaline Phosphatase (38-126) U/L Troponin I (0.000-0.034) ng/mL Total Protein (6.3-8.2) g/dL Albumin (3.5-5.0) g/dL Stool Occult Blood Positive H (Negative) 01/11/21 01/11/21 Range/Units 14:55 14:55 WBC (3.8-10.6) k/uL RBC (3.80-5.40) m/uL Hgb (11.4-16.0) gm/dL Hct (34.0-46.0) % MCV (80.0-100.0) fL MCH (25.0-35.0) pg MCHC (31.0-37.0) g/dL RDW (11.5-15.5) % Plt Count (150-450) k/uL MPV Neutrophils % % Lymphocytes % % Monocytes % % Eosinophils % % Basophils % % Neutrophils # (1.3-7.7) k/uL Lymphocytes # (1.0-4.8) k/uL Monocytes # (0-1.0) k/uL Eosinophils # (0-0.7) k/uL Basophils # (0-0.2) k/uL Hypochromasia Anisocytosis Microcytosis APTT (22.0-30.0) sec Sodium 139 (137-145) mmol/L Potassium 3.7 (3.5-5.1) mmol/L Chloride 115 H (98-107) mmol/L Carbon Dioxide 16 L (22-30) mmol/L Anion Gap 8 mmol/L BUN 5 L (7-17) mg/dL Creatinine 0.49 L (0.52-1.04) mg/dL Est GFR (CKD-EPI)AfAm >90 (>60 ml/min/1.73 sqM) Est GFR (CKD-EPI)NonAf >90 (>60 ml/min/1.73 sqM) Glucose 83 (74-99) mg/dL Calcium 8.0 L (8.4-10.2) mg/dL Magnesium 1.8 (1.6-2.3) mg/dL Total Bilirubin 0.3 (0.2-1.3) mg/dL AST 15 (14-36) U/L ALT 9 (4-34) U/L Alkaline Phosphatase 102 (38-126) U/L Troponin I <0.012 (0.000-0.034) ng/mL Total Protein 6.1 L (6.3-8.2) g/dL Albumin 3.3 L (3.5-5.0) g/dL Stool Occult Blood (Negative) Disposition Clinical Impression: Acute Crohn's disease Disposition: HOME SELF-CARE Condition: Good Instructions (If sedation given, give patient instructions): Gastrointestinal Bleeding (ED) Additional Instructions: Follow-up with primary care physician. Take the medications as prescribed. Return to the ED if any alarming signs or symptoms occur. Prescriptions: Ciprofloxacin HCl [Cipro] 500 mg PO BID 5 Days #10 tab predniSONE [Deltasone] 20 mg PO DIRECTED #12 tab Is patient prescribed a controlled substance at d/c from ED?: No Referrals: Joan Meeks MD [Primary Care Provider] - 1-2 days Time of Disposition: 16:38
[2021-01-11 15:23] LABS: Anisocytosis Slight; Basophils % (A) 0 %; Eosinophils # (A) 0.1 k/uL (0-0.7); Eosinophils % (A) 1 %; HCT 35.3 % (34.0-46.0); Hypochromasia Slight; Lymphocytes # (A) 3.6 k/uL (1.0-4.8); Lymphocytes % (A) 34 %; MCHC 31.2 g/dL (31.0-37.0); MCV 80.2 fL (80.0-100.0); Microcytosis Slight; Monocytes # (A) 0.9 k/uL (0-1.0); Monocytes % (A) 9 %; Neutrophils # (A) 5.7 k/uL (1.3-7.7); Neutrophils % (A) 54 %; Platelet Count 718 k/uL (150-450); RBC 4.41 m/uL (3.80-5.40); RDW 18.6 % (11.5-15.5); WBC 10.7 k/uL (3.8-10.6)
[2021-01-11 15:36] LABS: ALT 9 U/L (4-34); AST 15 U/L (14-36); African American GFR (CKD) >90 (>60 ml/min/1.73 sqM); Albumin 3.3 g/dL (3.5-5.0); Alkaline Phosphatase 102 U/L (38-126); Anion Gap 8 mmol/L; Blood Urea Nitrogen 5 mg/dL (7-17); Carbon Dioxide 16 mmol/L (22-30); Chloride 115 mmol/L (98-107); Glucose 83 mg/dL (74-99); Magnesium 1.8 mg/dL (1.6-2.3); Non-African American GFR(CKD) >90 (>60 ml/min/1.73 sqM); Potassium 3.7 mmol/L (3.5-5.1); Sodium 139 mmol/L (137-145); Total Bilirubin 0.3 mg/dL (0.2-1.3); Total Protein 6.1 g/dL (6.3-8.2)
[2021-01-11] MEDS ORDERED: HYDROmorphone 1 MG/ML 1 ML SYRINGE IVP STA (16:20)
[2021-01-11 16:27] VITALS: RESP 18
[2021-01-11] MEDS ORDERED: ACET/COD 300 MG/30 MG STARTER PACK 6 TAB BTL PO STA (16:46)
[2021-01-11 17:06] VITALS: BP 151/94; PULSE 77
== END 2021-01-11 17:06 | disposition home or self-care (01) ==
LOC: EC 14:18
DX: K50.90 Crohn's disease, unspecified, without complications (principal); I10 Essential (primary) hypertension; J45.909 Unspecified asthma, uncomplicated; K21.9 Gastro-esophageal reflux disease without esophagitis; G40.909 Epilepsy, unspecified, not intractable, without status epilepticus; M79.7 Fibromyalgia; F31.9 Bipolar disorder, unspecified; F41.9 Anxiety disorder, unspecified; F17.200 Nicotine dependence, unspecified, uncomplicated; Z79.52 Long term (current) use of systemic steroids; Z79.890 Hormone replacement therapy; Z79.899 Other long term (current) drug therapy; Z79.51 Long term (current) use of inhaled steroids; Z88.0 Allergy status to penicillin; Z88.1 Allergy status to other antibiotic agents; Z88.2 Allergy status to sulfonamides; Z88.5 Allergy status to narcotic agent; Z88.8 Allergy status to other drugs, medicaments and biological substances; Z83.3 Family history of diabetes mellitus; Z83.49 Family history of other endocrine, nutritional and metabolic diseases; Z90.49 Acquired absence of other specified parts of digestive tract
CPT/HCPCS: 36415; 80053; 83735; 84484; 85025; 85730; 82272; 99284; 96374; 96375; 96376; 96361; J1170 ×2; C9113

== ENCOUNTER 2021-02-06 21:23 | Observation (INO) | payer OTHER ==
[2021-02-06] MEDS ORDERED: SODIUM CHLORIDE 0.9% 1,000 ML IV STA (22:04)
[2021-02-06] MEDS ORDERED: PANTOPRAZOLE 40 MG/10 ML VIAL IVP STA (22:04)
--- NOTE | 2021-02-06 22:48 | ED ---
Abdominal Pain HPI - General Chief Complaint: Abdominal Pain Stated Complaint: Abdominal pain Time Seen by Provider: 02/06/21 21:52 Source: patient, RN notes reviewed, old records reviewed Mode of arrival: EMS Limitations: no limitations - History of Present Illness Initial Comments: This is a 35-year-old male to the emergency room today. Patient presents today for evaluation regarding intractable nausea vomiting severe abdominal pain. Patient resents by EMS for evaluation regarding symptoms. Patient is afebrile states symptoms are all Crohn's related. No recent fevers no recent travel history sick contacts. No diarrhea. No change in medications. MD Complaint: abdominal pain -: days(s) Location: diffuse Radiation: epigastric, suprapubic Migration to: L flank, R flank, bilateral flank Severity: severe Severity scale (1-10): 7 Quality: sharp Consistency: intermittent Improves With: nothing Worsens With: nothing Context: other (none) Associated Symptoms: nausea, vomiting Treatments Prior to Arrival: other (none) - Related Data Home Medications Medication Instructions Recorded Confirmed Beclomethasone Dipropionate [Qvar 2 puff INHALATION RT-DAILY PRN 02/07/18 02/06/21 80 mcg] Levothyroxine Sodium [Synthroid] 137 mcg PO DAILY 08/07/18 02/06/21 Montelukast [Singulair] 10 mg PO DAILY 08/07/18 02/06/21 Balsalazide Disodium 2,250 mg PO TID 11/16/19 02/06/21 Lisinopril-Hctz 20-25 mg 2 tab PO DAILY 11/16/19 02/06/21 [Zestoretic 20-25] Famotidine [Pepcid] 20 mg PO BID 03/06/20 02/06/21 Simvastatin [Zocor] 20 mg PO HS 03/06/20 02/06/21 Albuterol Inhaler [Ventolin Hfa 2 puff INHALATION RT-QID PRN 05/29/20 02/06/21 Inhaler] Divalproex [Depakote] 1,000 mg PO TID 07/14/20 02/06/21 Loratadine [Claritin] 10 mg PO DAILY 07/14/20 02/06/21 Gabapentin [Neurontin] 1,200 mg PO TID 10/01/20 02/06/21 Butalb/APAP/Caff 50-325-40Mg 1 tab PO TID PRN 11/18/20 02/06/21 [Fioricet 50-325-40] ondansetron HCL [Zofran] 8 mg PO Q4-6H PRN 11/18/20 02/06/21 Folic Acid 1 mg PO BID 02/06/21 02/06/21 LORazepam [Ativan] 0.5 mg PO DAILY PRN 02/06/21 02/06/21 Nicotine 14Mg/24Hr Patch [Habitrol] 1 patch TRANSDERM DAILY PRN 02/06/21 02/06/21 PARoxetine HCL [Paxil] 60 mg PO DAILY 02/06/21 02/06/21 Phentermine HCl 37.5 mg PO DAILY 02/06/21 02/06/21 QUEtiapine FUMARATE [SEROquel] 600 mg PO HS 02/06/21 02/06/21 Previous Rx's Medication Instructions Recorded Cyanocobalamin [Vitamin B-12] 1,000 mcg PO DAILY #30 tab 06/04/20 Lacosamide [Vimpat] 50 mg PO BID #60 tablet 06/04/20 haloperidoL [Haldol] 1 mg PO BID #4 tab 06/04/20 Allergies Allergy/AdvReac Type Severity Reaction Status Date / Time dicyclomine [From Bentyl] Allergy Severe Hallucinati Verified 02/06/21 22:32 ons granisetron HCl [From Kytril] Allergy Severe Anaphylaxis Verified 02/06/21 22:32 azithromycin Allergy Rash/Hives Verified 02/06/21 22:32 baclofen Allergy Rash/Hives Verified 02/06/21 22:32 butorphanol [From Stadol] Allergy Rash/Hives Verified 02/06/21 22:32 butorphanol tartrate Allergy Rash/Hives Verified 02/06/21 22:32 [From Stadol] Cephalosporins Allergy Rash/Hives Verified 02/06/21 22:32 cyclobenzaprine Allergy Unknown Verified 02/06/21 22:32 [From Flexeril] dicloxacillin Allergy Rash/Hives Verified 02/06/21 22:32 granisetron [From Kytril] Allergy Anaphylaxis Verified 02/06/21 22:32 ketorolac Allergy Rash/Hives Verified 02/06/21 22:32 ketorolac tromethamine Allergy Rash/Hives Verified 02/06/21 22:32 [From Toradol] meperidine Allergy Unknown Verified 02/06/21 22:32 meperidine HCl [From Demerol] Allergy Swelling Verified 02/06/21 22:32 pregabalin [From Lyrica] Allergy Unknown Verified 02/06/21 22:32 risperidone [From Risperdal] Allergy Dyspnea Verified 02/06/21 22:32 sulfamethoxazole Allergy Rash/Hives Verified 02/06/21 22:32 [From Bactrim] trimethoprim [From Bactrim] Allergy Rash/Hives Verified 02/06/21 22:32 methylprednisolone AdvReac Vomiting & Verified 02/06/21 22:32 [From Medrol] Headache Review of Systems ROS Statement: Those systems with pertinent positive or pertinent negative responses have been documented in the HPI. ROS Other: All systems not noted in ROS Statement are negative. Past Medical History Past Medical History: Asthma, Fibromyalgia, GERD/Reflux, Hypertension, Neurologic Disorder, Seizure Disorder, Thyroid Disorder Additional Past Medical History / Comment(s): crohns disease, diverticulosis, ibs, chronic colitis.,carpal tunnel solo wrists, anemia, chronic back pain , migraines, pinched nerves, Hx fall in June and broke old fracture above right ankle- wears boot., frequent nausea, last seizure 1 month ago., hx pancreatitis. History of Any Multi-Drug Resistant Organisms: None Reported Past Surgical History: Adenoidectomy, Appendectomy, Cholecystectomy, Orthopedic Surgery, Tonsillectomy Additional Past Surgical History / Comment(s): EGD/colonoscopy, right ankle surgery, broken nose surgery Past Anesthesia/Blood Transfusion Reactions: Previous Problems w/ Anesthesia, Postoperative Nausea & Vomiting (PONV) Additional Past Anesthesia/Blood Transfusion Reaction / Comment(s): hallucinations x1 Past Psychological History: Anxiety, Bipolar, Depression, PTSD Smoking Status: Current every day smoker Past Alcohol Use History: None Reported Past Drug Use History: None Reported - Past Family History Father Family Medical History: Diabetes Mellitus, Hyperlipidemia Mother Family Medical History: Cancer, CVA/TIA, Deep Vein Thrombosis (DVT), Osteoarthritis (OA), Thyroid Disorder Additional Family Medical History / Comment(s): Extensive tattoos throughout body General Exam Limitations: no limitations General appearance: alert, in no apparent distress Head exam: Present: atraumatic, normocephalic, normal inspection Eye exam: Present: normal appearance, PERRL, EOMI. Absent: scleral icterus, conjunctival injection, periorbital swelling ENT exam: Present: normal exam, mucous membranes moist Neck exam: Present: normal inspection. Absent: tenderness, meningismus, lymphadenopathy Respiratory exam: Present: normal lung sounds bilaterally. Absent: respiratory distress, wheezes, rales, rhonchi, stridor Cardiovascular Exam: Present: regular rate, normal rhythm, normal heart sounds. Absent: systolic murmur, diastolic murmur, rubs, gallop, clicks GI/Abdominal exam: Present: soft, normal bowel sounds. Absent: distended, tenderness, guarding, rebound, rigid Extremities exam: Present: normal inspection, full ROM, normal capillary refill. Absent: tenderness, pedal edema, joint swelling, calf tenderness Back exam: Present: normal inspection Neurological exam: Present: alert, oriented X3, CN II-XII intact Psychiatric exam: Present: normal affect, normal mood Skin exam: Present: warm, dry, intact, normal color. Absent: rash Course Vital Signs 02/06/21 02/07/21 21:28 01:32 Temperature 98.1 F Pulse Rate 82 80 Respiratory 16 17 Rate Blood Pressure 139/97 126/85 O2 Sat by Pulse 98 98 Oximetry - Reevaluation(s) Reevaluation #1: 02/07/21 02:04 Medical record is reviewed Reevaluation #2: 02/07/21 02:04 Patient is unable to have improvement of symptoms here in the ER Reevaluation #3: 02/07/21 02:05 Patient having intractable nausea vomiting despite significant amount medications here in the ER Patient states she still has abdominal pain Patient does refuse CAT scan - Consultations Consultation #1: spoke w [facility] ok for admsssion Medical Decision Making - Medical Decision Making 35 female with Crohn's disease exacerbation significant nausea vomiting intractable pain. Patient be admitted for supportive care - Lab Data Result diagrams: 02/06/21 23:01 02/06/21 23:01 Lab Results 02/06/21 02/06/21 Range/Units 23:01 23:01 WBC 8.6 (3.8-10.6) k/uL RBC 3.95 (3.80-5.40) m/uL Hgb 9.9 L (11.4-16.0) gm/dL Hct 32.2 L (34.0-46.0) % MCV 81.4 (80.0-100.0) fL MCH 25.1 (25.0-35.0) pg MCHC 30.9 L (31.0-37.0) g/dL RDW 17.4 H (11.5-15.5) % Plt Count 506 H (150-450) k/uL MPV 7.3 Neutrophils % 71 % Lymphocytes % 19 % Monocytes % 6 % Eosinophils % 2 % Basophils % 0 % Neutrophils # 6.0 (1.3-7.7) k/uL Lymphocytes # 1.6 (1.0-4.8) k/uL Monocytes # 0.6 (0-1.0) k/uL Eosinophils # 0.2 (0-0.7) k/uL Basophils # 0.0 (0-0.2) k/uL Hypochromasia Moderate Anisocytosis Slight Microcytosis Slight Sodium 135 L (137-145) mmol/L Potassium 4.7 (3.5-5.1) mmol/L Chloride 107 (98-107) mmol/L Carbon Dioxide 23 (22-30) mmol/L Anion Gap 5 mmol/L BUN 9 (7-17) mg/dL Creatinine 0.78 (0.52-1.04) mg/dL Est GFR (CKD-EPI)AfAm >90 (>60 ml/min/1.73 sqM) Est GFR (CKD-EPI)NonAf >90 (>60 ml/min/1.73 sqM) Glucose 91 (74-99) mg/dL Calcium 8.8 (8.4-10.2) mg/dL Phosphorus 4.3 (2.5-4.5) mg/dL Magnesium 2.0 (1.6-2.3) mg/dL Total Bilirubin 0.1 L (0.2-1.3) mg/dL AST 16 (14-36) U/L ALT 12 (4-34) U/L Alkaline Phosphatase 103 (38-126) U/L Total Protein 6.3 (6.3-8.2) g/dL Albumin 3.3 L (3.5-5.0) g/dL Amylase 71 (30-110) U/L Lipase 37 (23-300) U/L - Radiology Data Radiology results: report reviewed (X-ray KUB is negative for acute disease), image reviewed Disposition Clinical Impression: Crohns disease, Exacerbation of Crohn's disease, Abdominal pain, Abdominal colic Disposition: ADMITTED IP TO THIS HOSP Condition: Good Is patient prescribed a controlled substance at d/c from ED?: No
[2021-02-06] MEDS ORDERED: diphenhydrAMINE 50 MG/ML 1 ML VIAL IVP STA (22:59)
[2021-02-06] MEDS ORDERED: LORazepam 2 MG/ML INJ IV STA (22:59)
[2021-02-06] MEDS ORDERED: HYDROmorphone 1 MG/ML 1 ML SYRINGE IVP STA (22:59)
[2021-02-06] MEDS ORDERED: PROCHLORPERAZINE INJ 10 MG/2 ML VIAL IVP STA (23:00)
[2021-02-06 23:25] LABS: Anisocytosis Slight; Basophils % (A) 0 %; Eosinophils # (A) 0.2 k/uL (0-0.7); Eosinophils % (A) 2 %; HCT 32.2 % (34.0-46.0); HGB 9.9 gm/dL (11.4-16.0); Hypochromasia Moderate; Lymphocytes # (A) 1.6 k/uL (1.0-4.8); Lymphocytes % (A) 19 %; MCH 25.1 pg (25.0-35.0); MCHC 30.9 g/dL (31.0-37.0); MCV 81.4 fL (80.0-100.0); Mean Platelet Volume 7.3; Microcytosis Slight; Monocytes # (A) 0.6 k/uL (0-1.0); Monocytes % (A) 6 %; Neutrophils % (A) 71 %; Platelet Count 506 k/uL (150-450); RBC 3.95 m/uL (3.80-5.40); RDW 17.4 % (11.5-15.5); WBC 8.6 k/uL (3.8-10.6)
[2021-02-06 23:39] LABS: ALT 12 U/L (4-34); AST 16 U/L (14-36); African American GFR (CKD) >90 (>60 ml/min/1.73 sqM); Albumin 3.3 g/dL (3.5-5.0); Alkaline Phosphatase 103 U/L (38-126); Amylase 71 U/L (30-110); Anion Gap 5 mmol/L; Blood Urea Nitrogen 9 mg/dL (7-17); Calcium 8.8 mg/dL (8.4-10.2); Carbon Dioxide 23 mmol/L (22-30); Chloride 107 mmol/L (98-107); Glucose 91 mg/dL (74-99); Lipase 37 U/L (23-300); Non-African American GFR(CKD) >90 (>60 ml/min/1.73 sqM); Phosphorus 4.3 mg/dL (2.5-4.5); Potassium 4.7 mmol/L (3.5-5.1); Sodium 135 mmol/L (137-145); Total Bilirubin 0.1 mg/dL (0.2-1.3); Total Protein 6.3 g/dL (6.3-8.2)
--- NOTE | 2021-02-06 23:59 | XR ---
EXAMINATION TYPE: XR KUB DATE OF EXAM: 02/06/2021 COMPARISON: 07/14/2020 HISTORY: Abdominal pain TECHNIQUE: 2 views FINDINGS: Bowel gas pattern is normal. There is no sign of intestinal obstruction or pneumoperitoneum . Fecal pattern is normal. There are clips from cholecystectomy. Lung bases are clear. There are no p athologic calcifications over the kidneys. IMPRESSION: Nonacute abdomen. No adverse change.
[2021-02-07] MEDS ORDERED: LORazepam 2 MG/ML INJ IV PRN (01:18)
[2021-02-07] MEDS ORDERED: NALOXONE 0.4 MG/ML 1 ML VIAL IV PRN (01:18)
[2021-02-07] MEDS: HYDROmorphone 1 MG/ML 1 ML SYRINGE IVP PRN ×2 (01:27→05:10)
[2021-02-07] MEDS: SODIUM CHLORIDE 0.9% 1,000 ML IV SCH ×2 (01:29→14:16)
[2021-02-07 01:33] VITALS: RESP 17
[2021-02-07] MEDS: DIVALPROEX 500 MG TABLET.DR PO SCH ×3 (03:58→15:46)
[2021-02-07] MEDS: ONDANSETRON 4 MG/2 ML VIAL IVP PRN ×2 (05:08→14:13)
[2021-02-07] MEDS ORDERED: FLUTICASONE 110 MCG INHALER INHALATION PRN (08:13)
[2021-02-07] MEDS ORDERED: ONDANSETRON 4 MG TAB PO PRN (08:13)
[2021-02-07] MEDS ORDERED: LORazepam 0.5 MG TAB PO PRN (08:13)
[2021-02-07] MEDS ORDERED: ALBUTEROL HFA INHALER INHALATION PRN (08:13)
[2021-02-07] MEDS ORDERED: NICOTINE 14MG/24HR PATCH TRANSDERM PRN (08:13)
[2021-02-07] MEDS ORDERED: BUTALB/APAP/CAFF 50-325-40MG TAB PO PRN (08:13)
[2021-02-07] MEDS ORDERED: haloperidoL 1 MG TAB PO SCH (09:00)
[2021-02-07] MEDS ORDERED: LEVOTHYROXINE 137 MCG TAB PO SCH (09:00)
[2021-02-07] MEDS ORDERED: MONTELUKAST 10 MG TAB PO SCH (09:00)
[2021-02-07] MEDS ORDERED: FOLIC ACID 1 MG TAB PO SCH (09:00)
[2021-02-07] MEDS ORDERED: NON FORMULARY DRUG (Phentermine Hcl [Phentermine Hcl] 37.5 MG Tablet) PO SCH (09:00)
[2021-02-07] MEDS ORDERED: FAMOTIDINE 20 MG TAB PO SCH (09:00)
[2021-02-07] MEDS ORDERED: PARoxetine 20 MG TAB PO SCH (09:00)
[2021-02-07] MEDS ORDERED: CYANOCOBALAMIN 500 MCG TAB PO SCH (09:00)
[2021-02-07] MEDS ORDERED: LISINOPRIL-HCTZ 20-25 MG 1 EACH TAB PO SCH (09:00)
[2021-02-07] MEDS ORDERED: GABAPENTIN 400 MG CAP PO SCH (09:00)
[2021-02-07] MEDS ORDERED: LACOSAMIDE 50 MG TABLET PO SCH (09:00)
[2021-02-07] MEDS ORDERED: PANTOPRAZOLE 40 MG/10 ML VIAL IV SCH (09:00)
[2021-02-07] MEDS ORDERED: BALSALAZIDE DISODIUM 750 MG CAPSULE PO SCH (09:00)
[2021-02-07] MEDS: GABAPENTIN 400 MG CAP PO SCH ×2 (09:12→15:46)
[2021-02-07 09:26] VITALS: BP 147/91; PULSE 98; TEMP 98.4
[2021-02-07] MEDS: oxyCODONE-APAP 10-325MG 1 EACH TAB PO PRN ×2 (09:28→15:46)
[2021-02-07 10:53] LABS: C Reactive Protein 0.8 mg/dL (<1.0)
[2021-02-07 10:54] LABS: Valproic Acid (Depakene) 54.8 ug/mL
--- NOTE | 2021-02-07 11:50 | P.CONS ---
History of Present Illness - Reason for Consult Consult date: 02/07/21 Abdominal pain, history of ulcerative colitis Requesting physician: Ole Magana - Chief Complaint Abdominal pain, nausea, diarrhea - History of Present Illness This is 35-year-old female with a past medical history including posttraumatic stress disorder, anxiety, depression, and ulcerative colitis diagnosed at the age of 17. Patient presented to the emergency department with complaints of abdominal pain. Apparently the patient lives with her mother who usually controls her medications however her mother has been hospitalized in the patient states she's not been taking her medications regularly including her psych medications. Patient states she's been having abdominal pain which she states is severe she is asking for Dilaudid otherwise states she wants to go home. She states she had a couple episodes of nausea with vomiting no hematemesis and no blood in her stool. Patient was recently seen in the emergency department in early January for abdominal pain with rectal bleeding and was sent home. She follows with Dr. Diggs, from gastroenterology and take spell sell aside 3 tablets 3 times a day. She had her last colonoscopy on 10-[address] Diggs with a normal-appearing colon with no evidence of colorectal neoplasia. On admission WBC 8.6 hemoglobin 9.9 hematocrit 32 platelet count 506,000 CRP 0.8, sed rate is pending. Abdominal x-ray with no acute findings. Patient states she is having up to 10 episodes of loose stool daily. She states overall this is normal for her. She states she is not having any bleeding or blood in her stool. No coffee-ground or hematemesis. His been afebrile. She did test positive for COVID-19. Apparently the patient also had some confusion as to where she woke up at home therefore they're ruling out possible seizure activity. Neurology is on consult. Review of Systems REVIEW OF SYSTEMS: CARDIOPULMONARY: No chest pain or shortness of breath. Gastrointestinal: Diffuse abdominal pain, which she restates is sharp. Patient had some nausea and couple episodes of emesis.. No hematemesis, coffee-ground emesis. No rectal bleeding, or melena. GENITOURINARY: No dysuria or hematuria. MUSCULOSKELETAL: Reports normal range of motion., Joint pain. SKIN: No rashes. No jaundice. ENDOCRINE: No chills, fevers. No excessive weight gain or loss. No polydipsia or polyuria. PSYCHIATRIC: Unremarkable. NEUROLOGY: Apparently patient had some confusion of with the unawareness as to where she was when she woke up at home. Denies dizziness, headache. ENT: Vision unremarkable. CONSTITUTIONAL: No recent weight loss. No fever, chills, night sweats. Past Medical History Past Medical History: Asthma, Fibromyalgia, GERD/Reflux, Hypertension, Neurologic Disorder, Seizure Disorder, Thyroid Disorder Additional Past Medical History / Comment(s): crohns disease, diverticulosis, ibs, chronic colitis.,carpal tunnel solo wrists, anemia, chronic back pain , migraines, pinched nerves, Hx fall in June and broke old fracture above right ankle- wears boot., frequent nausea, last seizure 1 month ago., hx pancreatitis. History of Any Multi-Drug Resistant Organisms: None Reported Past Surgical History: Adenoidectomy, Appendectomy, Cholecystectomy, Orthopedic Surgery, Tonsillectomy Additional Past Surgical History / Comment(s): EGD/colonoscopy, right ankle surgery, broken nose surgery Past Anesthesia/Blood Transfusion Reactions: Previous Problems w/ Anesthesia, Postoperative Nausea & Vomiting (PONV) Additional Past Anesthesia/Blood Transfusion Reaction / Comm: hallucinations x1 Past Psychological History: Anxiety, Bipolar, Depression, PTSD Smoking Status: Current every day smoker Past Alcohol Use History: None Reported Past Drug Use History: None Reported - Past Family History Father Family Medical History: Diabetes Mellitus, Hyperlipidemia Mother Family Medical History: Cancer, CVA/TIA, Deep Vein Thrombosis (DVT), Osteoarthritis (OA), Thyroid Disorder Additional Family Medical History / Comment(s): Extensive tattoos throughout body Medications and Allergies Home Medications Medication Instructions Recorded Confirmed Type Beclomethasone Dipropionate [Qvar 2 puff INHALATION RT-DAILY PRN 02/07/18 02/06/21 History 80 mcg] Levothyroxine Sodium [Synthroid] 137 mcg PO DAILY 08/07/18 02/06/21 History Montelukast [Singulair] 10 mg PO DAILY 08/07/18 02/06/21 History Balsalazide Disodium 2,250 mg PO TID 11/16/19 02/06/21 History Lisinopril-Hctz 20-25 mg 2 tab PO DAILY 11/16/19 02/06/21 History [Zestoretic 20-25] Famotidine [Pepcid] 20 mg PO BID 03/06/20 02/06/21 History Simvastatin [Zocor] 20 mg PO HS 03/06/20 02/06/21 History Albuterol Inhaler [Ventolin Hfa 2 puff INHALATION RT-QID PRN 05/29/20 02/06/21 History Inhaler] Cyanocobalamin [Vitamin B-12] 1,000 mcg PO DAILY #30 tab 06/04/20 02/06/21 Rx Lacosamide [Vimpat] 50 mg PO BID #60 tablet 06/04/20 02/06/21 Rx haloperidoL [Haldol] 1 mg PO BID #4 tab 06/04/20 02/06/21 Rx Divalproex [Depakote] 1,000 mg PO TID 07/14/20 02/06/21 History Loratadine [Claritin] 10 mg PO DAILY 07/14/20 02/06/21 History Gabapentin [Neurontin] 1,200 mg PO TID 10/01/20 02/06/21 History Butalb/APAP/Caff 50-325-40Mg 1 tab PO TID PRN 11/18/20 02/06/21 History [Fioricet 50-325-40] ondansetron HCL [Zofran] 8 mg PO Q4-6H PRN 11/18/20 02/06/21 History Folic Acid 1 mg PO BID 02/06/21 02/06/21 History LORazepam [Ativan] 0.5 mg PO DAILY PRN 02/06/21 02/06/21 History Nicotine 14Mg/24Hr Patch [Habitrol] 1 patch TRANSDERM DAILY PRN 02/06/21 02/06/21 History PARoxetine HCL [Paxil] 60 mg PO DAILY 02/06/21 02/06/21 History Phentermine HCl 37.5 mg PO DAILY 02/06/21 02/06/21 History QUEtiapine FUMARATE [SEROquel] 600 mg PO HS 02/06/21 02/06/21 History Allergies Allergy/AdvReac Type Severity Reaction Status Date / Time dicyclomine [From Bentyl] Allergy Severe Hallucinati Verified 02/06/21 22:32 ons granisetron HCl [From Kytril] Allergy Severe Anaphylaxis Verified 02/06/21 22:32 azithromycin Allergy Rash/Hives Verified 02/06/21 22:32 baclofen Allergy Rash/Hives Verified 02/06/21 22:32 butorphanol [From Stadol] Allergy Rash/Hives Verified 02/06/21 22:32 butorphanol tartrate Allergy Rash/Hives Verified 02/06/21 22:32 [From Stadol] Cephalosporins Allergy Rash/Hives Verified 02/06/21 22:32 cyclobenzaprine Allergy Unknown Verified 02/06/21 22:32 [From Flexeril] dicloxacillin Allergy Rash/Hives Verified 02/06/21 22:32 granisetron [From Kytril] Allergy Anaphylaxis Verified 02/06/21 22:32 ketorolac Allergy Rash/Hives Verified 02/06/21 22:32 ketorolac tromethamine Allergy Rash/Hives Verified 02/06/21 22:32 [From Toradol] meperidine Allergy Unknown Verified 02/06/21 22:32 meperidine HCl [From Demerol] Allergy Swelling Verified 02/06/21 22:32 pregabalin [From Lyrica] Allergy Unknown Verified 02/06/21 22:32 risperidone [From Risperdal] Allergy Dyspnea Verified 02/06/21 22:32 sulfamethoxazole Allergy Rash/Hives Verified 02/06/21 22:32 [From Bactrim] trimethoprim [From Bactrim] Allergy Rash/Hives Verified 02/06/21 22:32 methylprednisolone AdvReac Vomiting & Verified 02/06/21 22:32 [From Medrol] Headache Physical Exam Vitals: Vital Signs Temp Pulse Pulse Resp BP BP Pulse Ox 02/07/21 09:26 98.4 F 98 17 147/91 99 02/07/21 05:16 86 17 145/80 97 02/07/21 01:32 80 17 126/85 98 02/06/21 21:28 98.1 F 82 16 139/97 98 Intake and Output 02/06/21 02/07/21 02/07/21 22:59 06:59 14:59 Other: Weight 94.347 kg General appearance: The patient is alert, oriented, appears in no acute distress. HET: Head is normocephalic and atraumatic. Conjunctiva pink. Sclera anicteric. Neck: Supple without lymphadenopathy. Trachea midline. Heart: S1 S2. Regular rate and rhythm. Lungs: Clear to auscultation. Abdomen: Soft, diffuse tenderness, nondistended with bowel sounds. No guarding or rigidity. Skin: No rashes. No jaundice. Extremities: Normal skin color and turgor. No pedal edema. Neurological: No focal deficits. Alert and oriented x3. Results CBC & Chem 7: 02/06/21 23:01 02/06/21 23:01 Labs: Abnormal Lab Results - Last 24 Hours (Table) 02/06/21 02/06/21 02/07/21 Range/Units 23:01 23:01 02:00 Hgb 9.9 L (11.4-16.0) gm/dL Hct 32.2 L (34.0-46.0) % MCHC 30.9 L (31.0-37.0) g/dL RDW 17.4 H (11.5-15.5) % Plt Count 506 H (150-450) k/uL Sodium 135 L (137-145) mmol/L Total Bilirubin 0.1 L (0.2-1.3) mg/dL Albumin 3.3 L (3.5-5.0) g/dL Coronavirus (PCR) Detected A (Not Detectd) Abdominal x-ray: report reviewed (No acute findings) Assessment and Plan (1) Abdominal pain Narrative/Plan: 35-year-old female who presented to the emergency department yesterday with complaints of severe abdominal pain associated with nausea and vomiting. Patient has a history of ulcerative colitis diagnosed at the age of 17. She recently underwent a colonoscopy 10/04/20 Dr. Pan with findings of a normal colon without any evidence of colorectal neoplasia. Patient is followed by Dr. Pan she's currently until solid side 3 tablets 3 times a day. Patient states states abdominal pain started a couple days ago. She has some associated nausea and vomiting 1-2 episodes. States she's had diarrhea but that is chronic for her up to 10 times a day recently. She denies any blood in her stool or rectal bleeding. Abdominal x-ray shows no acute findings. She's been afebrile. She was noted to be COVID-19 positive. WBC 8.6, hemoglobin 9.9 hematocrit 32 platelet count 506,000, CRP 0.8, sed rate pending. It does not appear to be related to an acute exacerbation of ulcerative colitis. May be related to underlying COVID-19 infection with signs and symptoms of diarrhea, nausea vomiting and abdominal pain. Current Visit: Yes Status: Acute Code(s): R10.9 - UNSPECIFIED ABDOMINAL PAIN SNOMED Code(s): 60501840 (2) History of ulcerative colitis Current Visit: No Status: Acute Code(s): Z87.19 - PERSONAL HISTORY OF OTHER DISEASES OF THE DIGESTIVE SYSTEM SNOMED Code(s): 963584242 Plan: 1. Continue symptomatic and supportive care next line 2. Please collect a stat C. diff 3. Antidiarrheals if C. diff negative 4. Continue balsalazide 5. Diet as tolerated 6. CRP and sed rate ordered, await results from sed rate. If inflammatory markers negative patient may be cleared for discharge from gastroenterology Thank you for allowing us to participate in the care of the patient, the GI service will sign off, gastroenterology will not be available at the hospital this weekend and through next week. If further evaluation by gastroenterology is required the patient will need transfer as per the primary team's discretion. Dr. Raoul Pan I agree with the dictator's note, documented as a scribe by Sadia Carrasco.
--- NOTE | 2021-02-07 12:45 | P.HPIM ---
History of Present Illness 36-year-old female came in with comments of abdominal pain patient has multiple aspirations in the past. Patient stays her abdominal pain is severe 10/10 diffuse regarding diarrhea patient was not clear patient says she was having d iarrhea but resolved now. Patient also comparing of seizure episodes although patient doesn't doesn't have any lactic is doses at this time. Patient does have history of seizures, patient was diagnosed with traumatic brain injury patient the also has diagnosis of postemetic stress disorder. Patient is on Depakote and Vimpat. Altered levels of Depakote neurology will be consulted. Patient does exhibit narcotic seeking behavior. Patient is requesting for Ativan and opiates multiple times. Patient doesn't have any Covid 19 symptoms although she is incidentally found to have Covid 19. Chest x-ray was not obtained here REVIEW OF SYSTEMS: CONSTITUTIONAL: No fever, no malaise, no fatigue. HEENT: No recent visual problems or hearing problems. Denied any sore throat. CARDIOVASCULAR: No chest pain, orthopnea, PND, no palpitations, no syncope. PULMONARY: No shortness of breath, no cough, no hemoptysis. GASTROINTESTINAL: As mentioned in HPI NEUROLOGICAL: As mentioned in HPI HEMATOLOGICAL: Denies any bleeding or petechiae. GENITOURINARY: Denies any burning micturition, frequency, or urgency. MUSCULOSKELETAL/RHEUMATOLOGICAL: Denies any joint pain, swelling, or any muscle pain. ENDOCRINE: Denies any polyuria or polydipsia. The rest of the 14-point review of systems is negative. PHYSICAL EXAMINATION: GENERAL: The patient is alert and oriented x3, not in any acute distress. Well developed, well nourished. HEENT: Pupils are round and equally reacting to light. EOMI. No scleral icterus. No conjunctival pallor. Normocephalic, atraumatic. No pharyngeal erythema. No thyromegaly. CARDIOVASCULAR: S1 and S2 present. No murmurs, rubs, or gallops. PULMONARY: Chest is clear to auscultation, no wheezing or crackles. ABDOMEN: Soft, nontender, nondistended, normoactive bowel sounds. No palpable organomegaly. MUSCULOSKELETAL: No joint swelling or deformity. EXTREMITIES: No cyanosis, clubbing, or pedal edema. NEUROLOGICAL: Gross neurological examination did not reveal any focal deficits. SKIN: No rashes. Assessment and plan -Covid 19 pneumonia patient is not hypoxic will not need to stay in the hospital for this patient was asked to take multivitamins vitamin C at home. -Abdominal pain my suspicion for Crohn's colitis is low, CRP was ordered which is within normal limits. Patient will resume her home regimen will not require any systemic steroids patient will not require any additional opiates patient takes Percocet which she will continue. Patient was a valid by gastroenterology. Patient was cleared and patient will will follow with gastroneurology as an outpatient --possibility of seizure: In spite of patient's complaints of having seizure patient doesn't have any lactic is doses and none of the labs are consistent with a seizure episode, Depakote level is within normal limits neurology will evaluate the patient if cleared by neurology pat ient will be discharged today. Patient is also on Vimpat which she will continue. -Fibromyalgia -Gastric esophageal reflux disease -Hypertension -hypothyroidism -History of depression next and haven't continued nicotine use: Counseling was provided patient may have mild bronchitis which is viral in origin patient does have rhonchi bilaterally Patient will be discharged today if cleared by neurology. Past Medical History Past Medical History: Asthma, Fibromyalgia, GERD/Reflux, Hypertension, Neurologic Disorder, Seizure Disorder, Thyroid Disorder Additional Past Medical History / Comment(s): crohns disease, diverticulosis, ib s, chronic colitis.,carpal tunnel solo wrists, anemia, chronic back pain , migraines, pinched nerves, Hx fall in June and broke old fracture above right ankle- wears boot., frequent nausea, last seizure 1 month ago., hx pancreatitis. History of Any Multi-Drug Resistant Organisms: None Reported Past Surgical History: Adenoidectomy, Appendectomy, Cholecystectomy, Orthopedic Surgery, Tonsillectomy Additional Past Surgical History / Comment(s): EGD/colonoscopy, right ankle surgery, broken nose surgery Past Anesthesia/Blood Transfusion Reactions: Previous Problems w/ Anesthesia, Postoperative Nausea & Vomiting (PONV) Additional Past Anesthesia/Blood Transfusion Reaction / Comment(s): hallucinations x1 Past Psychological History: Anxiety, Bipolar, Depression, PTSD Smoking Status: Current every day smoker Past Alcohol Use History: None Reported Past Drug Use History: None Reported - Past Family History Father Family Medical History: Diabetes Mellitus, Hyperlipidemia Mother Family Medical History: Cancer, CVA/TIA, Deep Vein Thrombosis (DVT), Osteoarthritis (OA), Thyroid Disorder Additional Family Medical History / Comment(s): Extensive tattoos throughout body Medications and Allergies Home Medications Medication Instructions Recorded Confirmed Type Beclomethasone Dipropionate [Qvar 2 puff INHALATION RT-DAILY PRN 02/07/18 02/06/21 History 80 mcg] Levothyroxine Sodium [Synthroid] 137 mcg PO DAILY 08/07/18 02/06/21 History Montelukast [Singulair] 10 mg PO DAILY 08/07/18 02/06/21 History Balsalazide Disodium 2,250 mg PO TID 11/16/19 02/06/21 History Lisinopril-Hctz 20-25 mg 2 tab PO DAILY 11/16/19 02/06/21 History [Zestoretic 20-25] Famotidine [Pepcid] 20 mg PO BID 03/06/20 02/06/21 History Simvastatin [Zocor] 20 mg PO HS 03/06/20 02/06/21 History Albuterol Inhaler [Ventolin Hfa 2 puff INHALATION RT-QID PRN 05/29/20 02/06/21 History Inhaler] Cyanocobalamin [Vitamin B-12] 1,000 mcg PO DAILY #30 tab 06/04/20 02/06/21 Rx Lacosamide [Vimpat] 50 mg PO BID #60 tablet 06/04/20 02/06/21 Rx haloperidoL [Haldol] 1 mg PO BID #4 tab 06/04/20 02/06/21 Rx Divalproex [Depakote] 1,000 mg PO TID 07/14/20 02/06/21 History Loratadine [Claritin] 10 mg PO DAILY 07/14/20 02/06/21 History Gabapentin [Neurontin] 1,200 mg PO TID 10/01/20 02/06/21 History Butalb/APAP/Caff 50-325-40Mg 1 tab PO TID PRN 11/18/20 02/06/21 History [Fioricet 50-325-40] ondansetron HCL [Zofran] 8 mg PO Q4-6H PRN 11/18/20 02/06/21 History Folic Acid 1 mg PO BID 02/06/21 02/06/21 History LORazepam [Ativan] 0.5 mg PO DAILY PRN 02/06/21 02/06/21 History Nicotine 14Mg/24Hr Patch [Habitrol] 1 patch TRANSDERM DAILY PRN 02/06/21 02/06/21 History PARoxetine HCL [Paxil] 60 mg PO DAILY 02/06/21 02/06/21 History Phentermine HCl 37.5 mg PO DAILY 02/06/21 02/06/21 History QUEtiapine FUMARATE [SEROquel] 600 mg PO HS 02/06/21 02/06/21 History Allergies Allergy/AdvReac Type Severity Reaction Status Date / Time dicyclomine [From Bentyl] Allergy Severe Hallucinati Verified 02/06/21 22:32 ons granisetron HCl [From Kytril] Allergy Severe Anaphylaxis Verified 02/06/21 22:32 azithromycin Allergy Rash/Hives Verified 02/06/21 22:32 baclofen Allergy Rash/Hives Verified 02/06/21 22:32 butorphanol [From Stadol] Allergy Rash/Hives Verified 02/06/21 22:32 butorphanol tartrate Allergy Rash/Hives Verified 02/06/21 22:32 [From Stadol] Cephalosporins Allergy Rash/Hives Verified 02/06/21 22:32 cyclobenzaprine Allergy Unknown Verified 02/06/21 22:32 [From Flexeril] dicloxacillin Allergy Rash/Hives Verified 02/06/21 22:32 granisetron [From Kytril] Allergy Anaphylaxis Verified 02/06/21 22:32 ketorolac Allergy Rash/Hives Verified 02/06/21 22:32 ketorolac tromethamine Allergy Rash/Hives Verified 02/06/21 22:32 [From Toradol] meperidine Allergy Unknown Verified 02/06/21 22:32 meperidine HCl [From Demerol] Allergy Swelling Verified 02/06/21 22:32 pregabalin [From Lyrica] Allergy Unknown Verified 02/06/21 22:32 risperidone [From Risperdal] Allergy Dyspnea Verified 02/06/21 22:32 sulfamethoxazole Allergy Rash/Hives Verified 02/06/21 22:32 [From Bactrim] trimethoprim [From Bactrim] Allergy Rash/Hives Verified 02/06/21 22:32 methylprednisolone AdvReac Vomiting & Verified 02/06/21 22:32 [From Medrol] Headache Physical Exam Vitals: Vital Signs Temp Pulse Pulse Resp BP BP Pulse Ox 02/07/21 09:26 98.4 F 98 17 147/91 99 02/07/21 05:16 86 17 145/80 97 02/07/21 01:32 80 17 126/85 98 02/06/21 21:28 98.1 F 82 16 139/97 98 Intake and Output 02/06/21 02/07/21 02/07/21 22:59 06:59 14:59 Other: Weight 94.347 kg Results CBC & Chem 7: 02/06/21 23:01 02/06/21 23:01 Labs: Abnormal Lab Results - Last 24 Hours (Table) 02/06/21 02/06/21 02/07/21 Range/Units 23:01 23:01 02:00 Hgb 9.9 L (11.4-16.0) gm/dL Hct 32.2 L (34.0-46.0) % MCHC 30.9 L (31.0-37.0) g/dL RDW 17.4 H (11.5-15.5) % Plt Count 506 H (150-450) k/uL Sodium 135 L (137-145) mmol/L Total Bilirubin 0.1 L (0.2-1.3) mg/dL Albumin 3.3 L (3.5-5.0) g/dL Coronavirus (PCR) Detected A (Not Detectd)
--- NOTE | 2021-02-07 12:46 | P.DS ---
Providers Date of admission: 02/07/21 01:18 Attending physician: Osvaldo Johnson Consults: 02/07/21 08:17 Consult Physician Routine Consulting Provider: Michael Hoffman Consult Reason/Comments: possible seizure Do you want consulting provider notified?: Yes 02/07/21 08:18 Consult Physician Routine Consulting Provider: Deena Pan Consult Reason/Comments: chrons Do you want consulting provider notified?: Yes Primary care physician: [facility] Course: Please refer to HPI for further details Patient Condition at Discharge: Good Plan - Discharge Summary New Discharge Prescriptions: No Action Beclomethasone Dipropionate [Qvar 80 mcg] 2 puff INHALATION RT-DAILY PRN PRN Reason: Shortness Of Breath Montelukast [Singulair] 10 mg PO DAILY Levothyroxine Sodium [Synthroid] 137 mcg PO DAILY Balsalazide Disodium 2,250 mg PO TID Lisinopril-Hctz 20-25 mg [Zestoretic 20-25] 2 tab PO DAILY Famotidine [Pepcid] 20 mg PO BID Simvastatin [Zocor] 20 mg PO HS Albuterol Inhaler [Ventolin Hfa Inhaler] 2 puff INHALATION RT-QID PRN PRN Reason: Shortness Of Breath haloperidoL [Haldol] 1 mg PO BID #4 tab Lacosamide [Vimpat] 50 mg PO BID #60 tablet Cyanocobalamin [Vitamin B-12] 1,000 mcg PO DAILY #30 tab Divalproex [Depakote] 1,000 mg PO TID Gabapentin [Neurontin] 1,200 mg PO TID Butalb/APAP/Caff 50-325-40Mg [Fioricet 50-325-40] 1 tab PO TID PRN PRN Reason: Migraine Headache PARoxetine HCL [Paxil] 60 mg PO DAILY Nicotine 14Mg/24Hr Patch [Habitrol] 1 patch TRANSDERM DAILY PRN PRN Reason: Nicotine Cravings LORazepam [Ativan] 0.5 mg PO DAILY PRN PRN Reason: Anxiety Loratadine [Claritin] 10 mg PO DAILY ondansetron HCL [Zofran] 8 mg PO Q4-6H PRN PRN Reason: Nausea And Vomiting QUEtiapine FUMARATE [SEROquel] 600 mg PO HS Folic Acid 1 mg PO BID Phentermine HCl 37.5 mg PO DAILY Discharge Medication List Beclomethasone Dipropionate [Qvar 80 mcg] 2 puff INHALATION RT-DAILY PRN 02/07/18 [History] Levothyroxine Sodium [Synthroid] 137 mcg PO DAILY 08/07/18 [History] Montelukast [Singulair] 10 mg PO DAILY 08/07/18 [History] Balsalazide Disodium 2,250 mg PO TID 11/16/19 [History] Lisinopril-Hctz 20-25 mg [Zestoretic 20-25] 2 tab PO DAILY 11/16/19 [History] Famotidine [Pepcid] 20 mg PO BID 03/06/20 [History] Simvastatin [Zocor] 20 mg PO HS 03/06/20 [History] Albuterol Inhaler [Ventolin Hfa Inhaler] 2 puff INHALATION RT-QID PRN 05/29/20 [History] Cyanocobalamin [Vitamin B-12] 1,000 mcg PO DAILY #30 tab 06/04/20 [Rx] Lacosamide [Vimpat] 50 mg PO BID #60 tablet 06/04/20 [Rx] haloperidoL [Haldol] 1 mg PO BID #4 tab 06/04/20 [Rx] Divalproex [Depakote] 1,000 mg PO TID 07/14/20 [History] Loratadine [Claritin] 10 mg PO DAILY 07/14/20 [History] Gabapentin [Neurontin] 1,200 mg PO TID 10/01/20 [History] Butalb/APAP/Caff 50-325-40Mg [Fioricet 50-325-40] 1 tab PO TID PRN 11/18/20 [History] ondansetron HCL [Zofran] 8 mg PO Q4-6H PRN 11/18/20 [History] Folic Acid 1 mg PO BID 02/06/21 [History] LORazepam [Ativan] 0.5 mg PO DAILY PRN 02/06/21 [History] Nicotine 14Mg/24Hr Patch [Habitrol] 1 patch TRANSDERM DAILY PRN 02/06/21 [History] PARoxetine HCL [Paxil] 60 mg PO DAILY 02/06/21 [History] Phentermine HCl 37.5 mg PO DAILY 02/06/21 [History] QUEtiapine FUMARATE [SEROquel] 600 mg PO HS 02/06/21 [History] Follow up Appointment(s)/Referral(s): Joan Meeks MD [Primary Care Provider] - 3 Days Discharge Disposition: HOME SELF-CARE
[2021-02-07] MEDS ORDERED: LOPERAMIDE 2 MG CAP PO PRN (15:13)
--- NOTE | 2021-02-07 15:24 | P.CNNES ---
History of Present Illness Consult date: 02/07/21 Requesting physician: Ole Magana Reason for Consult: Possible seizure History of Present Illness: Patient is a 35-year-old female, well-known to me from previous admissions to the hospital came to the hospital yesterday at 9:23 PM for seizure-type spells. Patient has history of seizure disorder, came to the hospital because of some breakthrough seizures. Patient states that her mother keeps her medication lo cked in the cupboard. As her mother was admitted to the hospital couple days ago, patient was not able to receive her seizure medication including Depakote and Ativan and the last dose she will received was on Wednesday morning, the day prior to arrival. Patient states that as a result she had some seizures last night. Yesterday she was twitching really bad. Patient also complains of pain and severe anxiety, stomach hurting going to the back. She rates it 7/10. She has taken some pain medications. Patient's blood test shows normal WBC count, hemoglobin 9.9, platelets 506. Sodium 135 potassium 4.7, normal renal functions. Normal hepatic panel. Amylase and lipase are normal. Grissom virus PCR is positive. ESR is 15. CRP 0.8. Depakote level this morning came back therapeutic 54.8. Patient states that she takes Depakote 500 mg tablet, 3 tablets twice a day (1500 mg twice a day), Ativan 1 mg 3 times a day. Regarding Vimpat, patient states that she takes Vimpat "barely". Review of Systems Multiple pain. Patient has some shortness of breath, cough. Tiredness. No fever. Past Medical History Past Medical History: Asthma, Fibromyalgia, GERD/Reflux, Hypertension, Neurologic Disorder, Seizure Disorder, Thyroid Disorder Additional Past Medical History / Comment(s): crohns disease, diverticulosis, ibs, chronic colitis.,carpal tunnel solo wrists, anemia, chronic back pain , migraines, pinched nerves, Hx fall in June and broke old fracture above right ankle- wears boot., frequent nausea, last seizure 1 month ago., hx pancreatitis. History of Any Multi-Drug Resistant Organisms: None Reported Past Surgical History: Adenoidectomy, Appendectomy, Cholecystectomy, Orthopedic Surgery, Tonsillectomy Additional Past Surgical History / Comment(s): EGD/colonoscopy, right ankle surgery, broken nose surgery Past Anesthesia/Blood Transfusion Reactions: Previous Problems w/ Anesthesia, Postoperative Nausea & Vomiting (PONV) Additional Past Anesthesia/Blood Transfusion Reaction / Comment(s): hallucinations x1 Past Psychological History: Anxiety, Bipolar, Depression, PTSD Smoking Status: Current every day smoker Past Alcohol Use History: None Reported Past Drug Use History: None Reported - Past Family History Father Family Medical History: Diabetes Mellitus, Hyperlipidemia Mother Family Medical History: Cancer, CVA/TIA, Deep Vein Thrombosis (DVT), Osteoarthritis (OA), Thyroid Disorder Additional Family Medical History / Comment(s): Extensive tattoos throughout body Medications and Allergies Home Medications Medication Instructions Recorded Confirmed Type Beclomethasone Dipropionate [Qvar 2 puff INHALATION RT-DAILY PRN 02/07/18 02/06/21 History 80 mcg] Levothyroxine Sodium [Synthroid] 137 mcg PO DAILY 08/07/18 02/06/21 History Montelukast [Singulair] 10 mg PO DAILY 08/07/18 02/06/21 History Balsalazide Disodium 2,250 mg PO TID 11/16/19 02/06/21 History Lisinopril-Hctz 20-25 mg 2 tab PO DAILY 11/16/19 02/06/21 History [Zestoretic 20-25] Famotidine [Pepcid] 20 mg PO BID 03/06/20 02/06/21 History Simvastatin [Zocor] 20 mg PO HS 03/06/20 02/06/21 History Albuterol Inhaler [Ventolin Hfa 2 puff INHALATION RT-QID PRN 05/29/20 02/06/21 History Inhaler] Cyanocobalamin [Vitamin B-12] 1,000 mcg PO DAILY #30 tab 06/04/20 02/06/21 Rx Lacosamide [Vimpat] 50 mg PO BID #60 tablet 06/04/20 02/06/21 Rx haloperidoL [Haldol] 1 mg PO BID #4 tab 06/04/20 02/06/21 Rx Divalproex [Depakote] 1,000 mg PO TID 07/14/20 02/06/21 History Loratadine [Claritin] 10 mg PO DAILY 07/14/20 02/06/21 History Gabapentin [Neurontin] 1,200 mg PO TID 10/01/20 02/06/21 History Butalb/APAP/Caff 50-325-40Mg 1 tab PO TID PRN 11/18/20 02/06/21 History [Fioricet 50-325-40] ondansetron HCL [Zofran] 8 mg PO Q4-6H PRN 11/18/20 02/06/21 History Folic Acid 1 mg PO BID 02/06/21 02/06/21 History LORazepam [Ativan] 0.5 mg PO DAILY PRN 02/06/21 02/06/21 History Nicotine 14Mg/24Hr Patch [Habitrol] 1 patch TRANSDERM DAILY PRN 02/06/21 02/06/21 History PARoxetine HCL [Paxil] 60 mg PO DAILY 02/06/21 02/06/21 History Phentermine HCl 37.5 mg PO DAILY 02/06/21 02/06/21 History QUEtiapine FUMARATE [SEROquel] 600 mg PO HS 02/06/21 02/06/21 History Allergies Allergy/AdvReac Type Severity Reaction Status Date / Time dicyclomine [From Bentyl] Allergy Severe Hallucinati Verified 02/06/21 22:32 ons granisetron HCl [From Kytril] Allergy Severe Anaphylaxis Verified 02/06/21 22:32 azithromycin Allergy Rash/Hives Verified 02/06/21 22:32 baclofen Allergy Rash/Hives Verified 02/06/21 22:32 butorphanol [From Stadol] Allergy Rash/Hives Verified 02/06/21 22:32 butorphanol tartrate Allergy Rash/Hives Verified 02/06/21 22:32 [From Stadol] Cephalosporins Allergy Rash/Hives Verified 02/06/21 22:32 cyclobenzaprine Allergy Unknown Verified 02/06/21 22:32 [From Flexeril] dicloxacillin Allergy Rash/Hives Verified 02/06/21 22:32 granisetron [From Kytril] Allergy Anaphylaxis Verified 02/06/21 22:32 ketorolac Allergy Rash/Hives Verified 02/06/21 22:32 ketorolac tromethamine Allergy Rash/Hives Verified 02/06/21 22:32 [From Toradol] meperidine Allergy Unknown Verified 02/06/21 22:32 meperidine HCl [From Demerol] Allergy Swelling Verified 02/06/21 22:32 pregabalin [From Lyrica] Allergy Unknown Verified 02/06/21 22:32 risperidone [From Risperdal] Allergy Dyspnea Verified 02/06/21 22:32 sulfamethoxazole Allergy Rash/Hives Verified 02/06/21 22:32 [From Bactrim] trimethoprim [From Bactrim] Allergy Rash/Hives Verified 02/06/21 22:32 methylprednisolone AdvReac Vomiting & Verified 02/06/21 22:32 [From Medrol] Headache Physical Examination - Vital Signs Vital Signs: Vital Signs Temp Pulse Pulse Resp BP BP Pulse Ox 02/07/21 09:26 98.4 F 98 17 147/91 99 02/07/21 05:16 86 17 145/80 97 02/07/21 01:32 80 17 126/85 98 02/06/21 21:28 98.1 F 82 16 139/97 98 Intake and Output 02/07/21 02/07/21 02/07/21 06:59 14:59 22:59 Other: Voiding Method Toilet Patient's mental status, speech and language functions are normal. Cranial nerves are normal. Muscle strength is normal in the arms and legs. No ataxia. Tone and bulk of muscles normal gait is normal. Results - Laboratory Findings CBC and BMP: 02/06/21 23:01 02/06/21 23:01 Abnormal Lab Findings: Abnormal Labs 02/06/21 02/06/21 02/07/21 23:01 23:01 02:00 Hgb 9.9 L Hct 32.2 L MCHC 30.9 L RDW 17.4 H Plt Count 506 H Sodium 135 L Total Bilirubin 0.1 L Albumin 3.3 L Coronavirus (PCR) Detected A Assessment and Plan Assessment: * Breakthrough seizure, likely due to missing doses of Depakote and Ativan. Patient has not received her medications for last 2 days because her mother, who gives her medications, herself has been admitted to the hospital, and patient has no access to her medication. * Coronavirus PCR positive. * History of TBI in 2006 and seizures started from 2007. * Previous history of noncompliance with medication. * History of Chiari malformation. * Marijuana use. Plan: * Resume Depakote 1000 mg 3 times a day (or 1500 mg twice a day). * Resume Vimpat 50 mg twice a day. * Resume her home dose of Ativan. * Patient recommended to prevent abrupt withdrawal of medications, which can trigger seizures. * Patient should not drive for 6 months, climbing ladders, operate dangerous machinery or unsupervised swimming. * Pain management as per IM. * Neurologically clear.
[2021-02-07] MEDS ORDERED: QUEtiapine 200 MG TAB PO SCH (21:00)
[2021-02-07] MEDS ORDERED: ATORVASTATIN 10 MG TAB PO SCH (21:00)
== END 2021-02-07 15:00 | disposition home or self-care (01) ==
LOC: EC 21:23 → 5NMEDONC 02-07 01:18 → 4SSUR 02-07 06:16
PROVIDERS: ADMIT Hospitalist; ATTEND Hospitalist
DX: U07.1 COVID-19 (principal); J12.82 Pneumonia due to coronavirus disease 2019; R10.13 Epigastric pain; R10.30 Lower abdominal pain, unspecified; R10.10 Upper abdominal pain, unspecified; M79.7 Fibromyalgia; K21.9 Gastro-esophageal reflux disease without esophagitis; E03.9 Hypothyroidism, unspecified; I10 Essential (primary) hypertension; F41.9 Anxiety disorder, unspecified; F31.9 Bipolar disorder, unspecified; F43.10 Post-traumatic stress disorder, unspecified; Z76.5 Malingerer [conscious simulation]; J45.909 Unspecified asthma, uncomplicated; G40.909 Epilepsy, unspecified, not intractable, without status epilepticus; K57.90 Diverticulosis of intestine, part unspecified, without perforation or abscess without bleeding; K58.9 Irritable bowel syndrome, unspecified; D64.9 Anemia, unspecified; G89.29 Other chronic pain; M54.9 Dorsalgia, unspecified; G43.909 Migraine, unspecified, not intractable, without status migrainosus; G58.9 Mononeuropathy, unspecified; F17.200 Nicotine dependence, unspecified, uncomplicated; R11.2 Nausea with vomiting, unspecified; R25.3 Fasciculation; Z91.14 Patient's other noncompliance with medication regimen; Z71.6 Tobacco abuse counseling; Z91.81 History of falling; Z87.19 Personal history of other diseases of the digestive system; Z87.820 Personal history of traumatic brain injury; Z98.890 Other specified postprocedural states; Z90.49 Acquired absence of other specified parts of digestive tract; Z79.899 Other long term (current) drug therapy; Z79.890 Hormone replacement therapy; Z88.1 Allergy status to other antibiotic agents; Z88.8 Allergy status to other drugs, medicaments and biological substances; Z83.3 Family history of diabetes mellitus; Z82.49 Family history of ischemic heart disease and other diseases of the circulatory system; Z82.3 Family history of stroke; Z83.438 Family history of other disorder of lipoprotein metabolism and other lipidemia; Z82.61 Family history of arthritis; Z80.9 Family history of malignant neoplasm, unspecified; Z83.49 Family history of other endocrine, nutritional and metabolic diseases
CPT/HCPCS: 96376; 96361 ×2; 96374; 96375 ×2; 99285; 36415; 80164; 80053; 85652; 82150; 83690; 83735; 84100; 85025; 86140; 87324; 87635; 74018; G0378; S4990; J2060 ×2; J1200; J0780; J2405; J1170 ×2; C9113 ×2

== ENCOUNTER 2021-03-10 19:03 | Emergency (ER) | payer OTHER ==
[2021-03-10 19:12] VITALS: RESP 18
[2021-03-10] MEDS ORDERED: SODIUM CHLORIDE 0.9% 500 ML 500 ML IV STA (19:24)
[2021-03-10] MEDS ORDERED: LORazepam 2 MG/ML INJ IV STA (19:25)
--- NOTE | 2021-03-10 19:30 | ED ---
General Adult HPI - General Chief complaint: Abdominal Pain Stated complaint: Abdominal Pain Time Seen by Provider: 03/10/21 19:10 Source: patient, EMS, RN notes reviewed, old records reviewed Mode of arrival: EMS Limitations: no limitations - History of Present Illness Initial comments: This is a 36-year-old female who presents emergency Department complaining of being anxious and shaking all over today. Patient states then later in the day she started having some diffuse abdominal pain which she states she often has with her ulcerative colitis. Patient denies any fever chills or cough. Patient states she has vomited a couple times a day. Patient denies any change in bowel habits. Patient denies any blood in the emesis. Patient denies any blood in her stools. Patient denies any difficulty breathing chest pain or palpitations. - Related Data Home Medications Medication Instructions Recorded Confirmed Beclomethasone Dipropionate [Qvar 2 puff INHALATION RT-DAILY PRN 02/07/18 02/06/21 80 mcg] Levothyroxine Sodium [Synthroid] 137 mcg PO DAILY 08/07/18 02/06/21 Montelukast [Singulair] 10 mg PO DAILY 08/07/18 02/06/21 Balsalazide Disodium 2,250 mg PO TID 11/16/19 02/06/21 Lisinopril-Hctz 20-25 mg 2 tab PO DAILY 11/16/19 02/06/21 [Zestoretic 20-25] Famotidine [Pepcid] 20 mg PO BID 03/06/20 02/06/21 Simvastatin [Zocor] 20 mg PO HS 03/06/20 02/06/21 Albuterol Inhaler [Ventolin Hfa 2 puff INHALATION RT-QID PRN 05/29/20 02/06/21 Inhaler] Divalproex [Depakote] 1,000 mg PO TID 07/14/20 02/06/21 Loratadine [Claritin] 10 mg PO DAILY 07/14/20 02/06/21 Gabapentin [Neurontin] 1,200 mg PO TID 10/01/20 02/06/21 Butalb/APAP/Caff 50-325-40Mg 1 tab PO TID PRN 11/18/20 02/06/21 [Fioricet 50-325-40] ondansetron HCL [Zofran] 8 mg PO Q4-6H PRN 11/18/20 02/06/21 Folic Acid 1 mg PO BID 02/06/21 02/06/21 LORazepam [Ativan] 0.5 mg PO DAILY PRN 02/06/21 02/06/21 Nicotine 14Mg/24Hr Patch [Habitrol] 1 patch TRANSDERM DAILY PRN 02/06/21 02/06/21 PARoxetine HCL [Paxil] 60 mg PO DAILY 02/06/21 02/06/21 Phentermine HCl 37.5 mg PO DAILY 02/06/21 02/06/21 QUEtiapine FUMARATE [SEROquel] 600 mg PO HS 02/06/21 02/06/21 Previous Rx's Medication Instructions Recorded Cyanocobalamin [Vitamin B-12] 1,000 mcg PO DAILY #30 tab 06/04/20 Lacosamide [Vimpat] 50 mg PO BID #60 tablet 06/04/20 haloperidoL [Haldol] 1 mg PO BID #4 tab 06/04/20 Allergies Allergy/AdvReac Type Severity Reaction Status Date / Time dicyclomine [From Bentyl] Allergy Severe Hallucinati Verified 03/10/21 19:12 ons granisetron HCl [From Kytril] Allergy Severe Anaphylaxis Verified 03/10/21 19:12 azithromycin Allergy Rash/Hives Verified 03/10/21 19:12 baclofen Allergy Rash/Hives Verified 03/10/21 19:12 butorphanol [From Stadol] Allergy Rash/Hives Verified 03/10/21 19:12 butorphanol tartrate Allergy Rash/Hives Verified 03/10/21 19:12 [From Stadol] Cephalosporins Allergy Rash/Hives Verified 03/10/21 19:12 cyclobenzaprine Allergy Unknown Verified 03/10/21 19:12 [From Flexeril] dicloxacillin Allergy Rash/Hives Verified 03/10/21 19:12 granisetron [From Kytril] Allergy Anaphylaxis Verified 03/10/21 19:12 ketorolac Allergy Rash/Hives Verified 03/10/21 19:12 ketorolac tromethamine Allergy Rash/Hives Verified 03/10/21 19:12 [From Toradol] meperidine Allergy Unknown Verified 03/10/21 19:12 meperidine HCl [From Demerol] Allergy Swelling Verified 03/10/21 19:12 pregabalin [From Lyrica] Allergy Unknown Verified 03/10/21 19:12 risperidone [From Risperdal] Allergy Dyspnea Verified 03/10/21 19:12 sulfamethoxazole Allergy Rash/Hives Verified 03/10/21 19:12 [From Bactrim] trimethoprim [From Bactrim] Allergy Rash/Hives Verified 03/10/21 19:12 methylprednisolone AdvReac Vomiting & Verified 03/10/21 19:12 [From Medrol] Headache Review of Systems ROS Statement: Those systems with pertinent positive or pertinent negative responses have been documented in the HPI. ROS Other: All systems not noted in ROS Statement are negative. Past Medical History Past Medical History: Asthma, Fibromyalgia, GERD/Reflux, Hypertension, Neur ologic Disorder, Seizure Disorder, Thyroid Disorder Additional Past Medical History / Comment(s): crohns disease, diverticulosis, ibs, chronic colitis.,carpal tunnel solo wrists, anemia, chronic back pain , migraines, pinched nerves, Hx fall in June and broke old fracture above right ankle- wears boot., frequent nausea, last seizure 1 month ago., hx pancreatitis. History of Any Multi-Drug Resistant Organisms: None Reported Past Surgical History: Adenoidectomy, Appendectomy, Cholecystectomy, Orthopedic Surgery, Tonsillectomy Additional Past Surgical History / Comment(s): EGD/colonoscopy, right ankle surgery, broken nose surgery Past Anesthesia/Blood Transfusion Reactions: Previous Problems w/ Anesthesia, Postoperative Nausea & Vomiting (PONV) Additional Past Anesthesia/Blood Transfusion Reaction / Comment(s): hallucinations x1 Past Psychological History: Anxiety, Bipolar, Depression, PTSD Smoking Status: Current every day smoker Past Alcohol Use History: None Reported Past Drug Use History: None Reported - Past Family History Father Family Medical History: Diabetes Mellitus, Hyperlipidemia Mother Family Medical History: Cancer, CVA/TIA, Deep Vein Thrombosis (DVT), Osteoarthritis (OA), Thyroid Disorder Additional Family Medical History / Comment(s): Extensive tattoos throughout body General Exam - General Exam Comments Initial Comments: GENERAL: Patient is well-developed and well-nourished. Patient is nontoxic and well- hydrated and is in no acute distress. When he first came around the corner to see the patient she was on her phone in absolutely no distress ENT: Neck is soft and supple. No significant lymphadenopathy is noted. Oropharynx i s clear. Moist mucous membranes. Neck has full range of motion without eliciting any pain. EYES: The sclera were anicteric and conjunctiva were pink and moist. Extraocular movements were intact and pupils were equal round and reactive to light. Eyelids were unremarkable. PULMONARY: Unlabored respirations. Good breath sounds bilaterally. No audible rales rhonchi or wheezing was noted. CARDIOVASCULAR: There is a regular rate and rhythm without any murmurs gallops or rubs. ABDOMEN: With distraction patient had no abdominal pain. SKIN: Skin is clear with no lesions or rashes and otherwise unremarkable. NEUROLOGIC: Patient is alert and oriented x3. Cranial nerves II through XII are grossly intact. Motor and sensory are also intact. Normal speech, volume and content. Symmetrical smile. MUSCULOSKELETAL: Normal extremities with adequate strength and full range of motion. LYMPHATICS: No significant lymphadenopathy is noted PSYCHIATRIC: Normal psychiatric evaluation. Limitations: no limitations Course Vital Signs 03/10/21 19:08 Temperature 99.2 F Pulse Rate 83 Respiratory 18 Rate Blood Pressure 137/78 O2 Sat by Pulse 97 Oximetry Medical Decision Making - Medical Decision Making EKG shows normal sinus rhythm at 70 bpm DE interval 152 QRS is 78 QT interval 396 QTC is 451. Patient's EKG shows no ST segment elevation or depression. Patient received droperidol and Ativan in the emergency department and by the patient's bed on 2 occasions and she was sleeping comfortably. Patient received 1/2 L of IV fluid. - Lab Data Result diagrams: 03/10/21 19:57 03/10/21 19:57 Lab Results 03/10/21 03/10/21 Range/Units 19:57 19:57 WBC 9.9 (3.8-10.6) k/uL RBC 4.28 (3.80-5.40) m/uL Hgb 10.7 L (11.4-16.0) gm/dL Hct 34.1 (34.0-46.0) % MCV 79.7 L (80.0-100.0) fL MCH 25.0 (25.0-35.0) pg MCHC 31.3 (31.0-37.0) g/dL RDW 18.0 H (11.5-15.5) % Plt Count 652 H (150-450) k/uL MPV 6.9 Neutrophils % 45 % Lymphocytes % 44 % Monocytes % 8 % Eosinophils % 1 % Basophils % 0 % Neutrophils # 4.4 (1.3-7.7) k/uL Lymphocytes # 4.4 (1.0-4.8) k/uL Monocytes # 0.8 (0-1.0) k/uL Eosinophils # 0.1 (0-0.7) k/uL Basophils # 0.0 (0-0.2) k/uL Hypochromasia Moderate Anisocytosis Slight Microcytosis Slight Sodium 137 (137-145) mmol/L Potassium 4.5 (3.5-5.1) mmol/L Chloride 110 H (98-107) mmol/L Carbon Dioxide 18 L (22-30) mmol/L Anion Gap 9 mmol/L BUN 10 (7-17) mg/dL Creatinine 1.24 H (0.52-1.04) mg/dL Est GFR (CKD-EPI)AfAm 65 (>60 ml/min/1.73 sqM) Est GFR (CKD-EPI)NonAf 56 (>60 ml/min/1.73 sqM) Glucose 112 H (74-99) mg/dL Calcium 8.9 (8.4-10.2) mg/dL Total Bilirubin 0.2 (0.2-1.3) mg/dL AST 16 (14-36) U/L ALT 16 (4-34) U/L Alkaline Phosphatase 95 (38-126) U/L Total Protein 7.0 (6.3-8.2) g/dL Albumin 3.8 (3.5-5.0) g/dL Amylase 80 (30-110) U/L Lipase 68 (23-300) U/L Disposition Clinical Impression: Anxiety, Chronic abdominal pain Disposition: HOME SELF-CARE Condition: Good Instructions (If sedation given, give patient instructions): Abdominal Pain (ED) Is patient prescribed a controlled substance at d/c from ED?: No Referrals: Joan Meeks MD [Primary Care Provider] - 1-2 days Time of Disposition: 20:37
[2021-03-10 20:22] LABS: Anisocytosis Slight; Basophils % (A) 0 %; Eosinophils # (A) 0.1 k/uL (0-0.7); Eosinophils % (A) 1 %; HCT 34.1 % (34.0-46.0); HGB 10.7 gm/dL (11.4-16.0); Hypochromasia Moderate; Lymphocytes # (A) 4.4 k/uL (1.0-4.8); Lymphocytes % (A) 44 %; MCHC 31.3 g/dL (31.0-37.0); MCV 79.7 fL (80.0-100.0); Mean Platelet Volume 6.9; Microcytosis Slight; Monocytes # (A) 0.8 k/uL (0-1.0); Monocytes % (A) 8 %; Neutrophils # (A) 4.4 k/uL (1.3-7.7); Neutrophils % (A) 45 %; Platelet Count 652 k/uL (150-450); RBC 4.28 m/uL (3.80-5.40); WBC 9.9 k/uL (3.8-10.6)
[2021-03-10 20:31] LABS: Albumin 3.8 g/dL (3.5-5.0); Calcium 8.9 mg/dL (8.4-10.2); Potassium 4.5 mmol/L (3.5-5.1); Total Bilirubin 0.2 mg/dL (0.2-1.3)
[2021-03-10] MEDS: SODIUM CHLORIDE 0.9% 1,000 ML IV ONE ×2 (21:06→21:14)
[2021-03-10 21:11] VITALS: BP 135/100; PULSE 90; TEMP 97.9
== END 2021-03-10 21:15 | disposition home or self-care (01) ==
LOC: EC 19:03
DX: R10.84 Generalized abdominal pain (principal); F41.9 Anxiety disorder, unspecified; G89.29 Other chronic pain; J45.909 Unspecified asthma, uncomplicated; M79.7 Fibromyalgia; K21.9 Gastro-esophageal reflux disease without esophagitis; I10 Essential (primary) hypertension; E07.9 Disorder of thyroid, unspecified; F31.9 Bipolar disorder, unspecified; F43.21 Adjustment disorder with depressed mood; F17.200 Nicotine dependence, unspecified, uncomplicated; Z88.1 Allergy status to other antibiotic agents; Z88.2 Allergy status to sulfonamides; Z90.49 Acquired absence of other specified parts of digestive tract
CPT/HCPCS: 99284; 96374; 96375; 36415; 80053; 82150; 83690; 85025; J2060; J1790

== ENCOUNTER 2021-06-23 11:27 | Observation (INO) | payer OTHER ==
[2021-06-23] MEDS ORDERED: SODIUM CHLORIDE 0.9% 1,000 ML IV STA ×2 (12:42→15:03)
[2021-06-23] MEDS ORDERED: PANTOPRAZOLE 40 MG/10 ML VIAL IVP STA (12:42)
[2021-06-23] MEDS ORDERED: MORPHINE SULFATE 4 MG/ML SYRINGE IV STA (12:42)
[2021-06-23 13:20] LABS: Anisocytosis Slight; Basophils # (A) 0.1 k/uL (0-0.2); Basophils % (A) 1 %; Eosinophils # (A) 0.2 k/uL (0-0.7); Eosinophils % (A) 2 %; HCT 35.7 % (34.0-46.0); HGB 10.9 gm/dL (11.4-16.0); Hypochromasia Marked; Lymphocytes # (A) 3.6 k/uL (1.0-4.8); Lymphocytes % (A) 34 %; MCH 25.9 pg (25.0-35.0); MCHC 30.5 g/dL (31.0-37.0); MCV 84.9 fL (80.0-100.0); Mean Platelet Volume 7.3; Monocytes # (A) 0.6 k/uL (0-1.0); Monocytes % (A) 6 %; Neutrophils # (A) 5.9 k/uL (1.3-7.7); Neutrophils % (A) 56 %; Platelet Count 616 k/uL (150-450); RDW 18.2 % (11.5-15.5); WBC 10.6 k/uL (3.8-10.6)
[2021-06-23 13:42] LABS: ALT 21 U/L (4-34); AST 22 U/L (14-36); African American GFR (CKD) >90 (>60 ml/min/1.73 sqM); Albumin 3.8 g/dL (3.5-5.0); Alkaline Phosphatase 88 U/L (38-126); Anion Gap 7 mmol/L; Blood Urea Nitrogen 9 mg/dL (7-17); Calcium 8.6 mg/dL (8.4-10.2); Carbon Dioxide 17 mmol/L (22-30); Chloride 110 mmol/L (98-107); Glucose 92 mg/dL (74-99); Lipase 27 U/L (23-300); Non-African American GFR(CKD) 87 (>60 ml/min/1.73 sqM); Potassium 4.7 mmol/L (3.5-5.1); Sodium 134 mmol/L (137-145); Total Bilirubin 0.5 mg/dL (0.2-1.3); Total Protein 7.3 g/dL (6.3-8.2)
[2021-06-23 13:49] LABS: INR 0.9 (<1.2); Prothrombin Time 9.9 sec (9.0-12.0)
[2021-06-23 13:51] LABS: Partial Thromboplastin Time 21.5 sec (22.0-30.0)
[2021-06-23 13:52] LABS: Appearance,Urine Cloudy (Clear); Bacteria,Urine Few /hpf; Bilirubin,Urine Negative (Negative); Blood,Urine Trace (Negative); Color,Urine Light Yellow; Glucose,Urine (UA) Negative (Negative); Ketones,Urine Negative (Negative); Leukocyte Esterase,Urine Large (Negative); Mucus,Urine Rare /hpf; Nitrite,Urine Positive (Negative); Protein,Urine Trace (Negative); RBC,Urine 15 /hpf (0-5); Specific Gravity,Urine 1.014 (1.001-1.035); Squamous Epithelial Cell,Urine 20 /hpf (0-4); Urobilinogen,Urine <2.0 mg/dL (<2.0); WBC,Urine 121 /hpf (0-5)
[2021-06-23] MEDS ORDERED: LEVOFLOXACIN 750MG-D5W PMX 750 MG in DEXTROSE/WATER 1 150ML.BAG IVPB STA (14:25)
[2021-06-23] MEDS ORDERED: MORPHINE SULFATE 2 MG/ML SYRINGE IVP STA (14:27)
--- NOTE | 2021-06-23 14:28 | CT ---
EXAMINATION TYPE: CT abdomen pelvis w con DATE OF EXAM: 06/23/2021 COMPARISON: CT dated 11/19/2020 HISTORY: Abdominal pain-generalized CT DLP: 1296.6 mGycm Automated exposure control for dose reduction was used. TECHNIQUE: Helical acquisition of images was performed from the lung bases through the pelvis. CONTRAST: Performed without Oral Contrast and with IV Contrast, patient injected with 100 mL of Isovue 300. FINDINGS: LUNG BASES: No significant abnormality is appreciated. LIVER/GB: No definite hepatic focal lesion. Previous cholecystectomy. PANCREAS: No significant abnormality is seen. SPLEEN: No significant abnormality is seen. ADRENALS: Stable 2 cm left adrenal nodule. Unremarkable right adrenal KIDNEYS: Grossly unremarkable. FREE AIR: No free air is visualized. RETROPERITONEAL ADENOPATHY: None visualized REPRODUCTIVE ORGANS: No gross uterine or adnexal mass. Please note that subtle adnexal or ovarian abn ormality cannot be excluded by this CT scan. URINARY BLADDER: No significant abnormality is seen. PELVIC ADENOPATHY: None visualized. OSSEOUS STRUCTURES: No aggressive bone lesion. BOWEL: Slightly thickened gastric wall, please correlate clinically for gastritis. Unremarkable duod enum and small bowel with no evidence off bowel obstruction. Fecal loading of the colon. No gross acu te colonic abnormality. OTHER: Scattered mild arterial atherosclerotic calcifications. No sizable ascites. IMPRESSION: NO DEFINITE ACUTE ABNORMALITY SEEN IN THE ABDOMEN OR THE PELVIS. INCIDENTAL FINDINGS DESCRIBED ABO VE.
[2021-06-23] MEDS ORDERED: ONDANSETRON 4 MG/2 ML VIAL IVP STA (15:01)
--- NOTE | 2021-06-23 15:06 | ED ---
Abdominal Pain HPI - General Chief Complaint: Abdominal Pain Stated Complaint: Abd Pain Time Seen by Provider: 06/23/21 12:34 Source: patient, EMS Mode of arrival: EMS Limitations: no limitations - History of Present Illness Initial Comments: This 36-year-old female presents complaining of some abdominal pain. She states that it is in her lower abdomen and midline but also bilateral lower quadrants and into the right flank region. She states that it started approximately 5 AM today. She takes that it is very severe. It is associated with nausea and vomiting. She presents via EMS and receives 5 mg of morphine IV as well as 4 mg of Zofran IV prior to arrival. She does complain of chronic diarrhea. She also denies any fevers. She relates a long history of Crohn's disease as well as diverticulitis and irritable bowel syndrome. She states that she has had blood in her stools that time both dark blood and bright red blood. She relates that she takes Percocet 10/325 up to 3 times a day as needed for her multiple chronic pain syndromes. She relates in a history of fibromyalgia as well. She states that she was unable to get her pain medications refilled. She does complain of some slight dysuria and urgency but no frequency or malodorous urine. No other complaints or modifying factors. - Related Data Home Medications Medication Instructions Recorded Confirmed Beclomethasone Dipropionate [Qvar 2 puff INHALATION RT-DAILY PRN 02/07/18 02/06/21 80 mcg] Levothyroxine Sodium [Synthroid] 137 mcg PO DAILY 08/07/18 02/06/21 Montelukast [Singulair] 10 mg PO DAILY 08/07/18 02/06/21 Balsalazide Disodium 2,250 mg PO TID 11/16/19 02/06/21 Lisinopril-Hctz 20-25 mg 2 tab PO DAILY 11/16/19 02/06/21 [Zestoretic 20-25] Famotidine [Pepcid] 20 mg PO BID 03/06/20 02/06/21 Simvastatin [Zocor] 20 mg PO HS 03/06/20 02/06/21 Albuterol Inhaler [Ventolin Hfa 2 puff INHALATION RT-QID PRN 05/29/20 02/06/21 Inhaler] Divalproex [Depakote] 1,000 mg PO TID 07/14/20 02/06/21 Loratadine [Claritin] 10 mg PO DAILY 07/14/20 02/06/21 Gabapentin [Neurontin] 1,200 mg PO TID 10/01/20 02/06/21 Butalb/APAP/Caff 50-325-40Mg 1 tab PO TID PRN 11/18/20 02/06/21 [Fioricet 50-325-40] ondansetron HCL [Zofran] 8 mg PO Q4-6H PRN 11/18/20 02/06/21 Folic Acid 1 mg PO BID 02/06/21 02/06/21 LORazepam [Ativan] 0.5 mg PO DAILY PRN 02/06/21 02/06/21 Nicotine 14Mg/24Hr Patch [Habitrol] 1 patch TRANSDERM DAILY PRN 02/06/21 02/06/21 PARoxetine HCL [Paxil] 60 mg PO DAILY 02/06/21 02/06/21 Phentermine HCl 37.5 mg PO DAILY 02/06/21 02/06/21 QUEtiapine FUMARATE [SEROquel] 600 mg PO HS 02/06/21 02/06/21 Previous Rx's Medication Instructions Recorded Cyanocobalamin [Vitamin B-12] 1,000 mcg PO DAILY #30 tab 06/04/20 Lacosamide [Vimpat] 50 mg PO BID #60 tablet 06/04/20 haloperidoL [Haldol] 1 mg PO BID #4 tab 06/04/20 Allergies Allergy/AdvReac Type Severity Reaction Status Date / Time dicyclomine [From Bentyl] Allergy Severe Hallucinati Verified 06/23/21 11:35 ons granisetron HCl [From Kytril] Allergy Severe Anaphylaxis Verified 06/23/21 11:35 azithromycin Allergy Rash/Hives Verified 06/23/21 11:35 baclofen Allergy Rash/Hives Verified 06/23/21 11:35 butorphanol [From Stadol] Allergy Rash/Hives Verified 06/23/21 11:35 butorphanol tartrate Allergy Rash/Hives Verified 06/23/21 11:35 [From Stadol] Cephalosporins Allergy Rash/Hives Verified 06/23/21 11:35 cyclobenzaprine Allergy Unknown Verified 06/23/21 11:35 [From Flexeril] dicloxacillin Allergy Rash/Hives Verified 06/23/21 11:35 granisetron [From Kytril] Allergy Anaphylaxis Verified 06/23/21 11:35 ketorolac Allergy Rash/Hives Verified 06/23/21 11:35 ketorolac tromethamine Allergy Rash/Hives Verified 06/23/21 11:35 [From Toradol] meperidine Allergy Unknown Verified 06/23/21 11:35 meperidine HCl [From Demerol] Allergy Swelling Verified 06/23/21 11:35 pregabalin [From Lyrica] Allergy Unknown Verified 06/23/21 11:35 risperidone [From Risperdal] Allergy Dyspnea Verified 06/23/21 11:35 sulfamethoxazole Allergy Rash/Hives Verified 06/23/21 11:35 [From Bactrim] trimethoprim [From Bactrim] Allergy Rash/Hives Verified 06/23/21 11:35 methylprednisolone AdvReac Vomiting & Verified 06/23/21 11:35 [From Medrol] Headache Review of Systems ROS Statement: Those systems with pertinent positive or pertinent negative responses have been documented in the HPI. ROS Other: All systems not noted in ROS Statement are negative. Past Medical History Past Medical History: Asthma, Fibromyalgia, GERD/Reflux, Hypertension, Neurologic Disorder, Seizure Disorder, Thyroid Disorder Additional Past Medical History / Comment(s): crohns disease, diverticulosis, ibs, chronic colitis.,carpal tunnel solo wrists, anemia, chronic back pain , migr aines, pinched nerves, Hx fall in June and broke old fracture above right ankle- wears boot., frequent nausea, last seizure 1 month ago., hx pancreatitis. History of Any Multi-Drug Resistant Organisms: None Reported Past Surgical History: Adenoidectomy, Appendectomy, Cholecystectomy, Orthopedic Surgery, Tonsillectomy Additional Past Surgical History / Comment(s): EGD/colonoscopy, right ankle surgery, broken nose surgery Past Anesthesia/Blood Transfusion Reactions: Previous Problems w/ Anesthesia, Postoperative Nausea & Vomiting (PONV) Additional Past Anesthesia/Blood Transfusion Reaction / Comment(s): hallucinations x1 Past Psychological History: Anxiety, Bipolar, Depression, PTSD Smoking Status: Current every day smoker Past Alcohol Use History: None Reported Past Drug Use History: None Reported - Past Family History Father Family Medical History: Diabetes Mellitus, Hyperlipidemia Mother Family Medical History: Cancer, CVA/TIA, Deep Vein Thrombosis (DVT), Osteoarthritis (OA), Thyroid Disorder Additional Family Medical History / Comment(s): Extensive tattoos throughout body General Exam - General Exam Comments Initial Comments: GENERAL: The patient is well nourished and but appears slightly dehydrated. VITAL SIGNS: Heart rate, blood pressure, respiratory rate reviewed as recorded in nurse's notes. EYES: Pupils are round and reactive. Extraocular movements are intact. No conjunctival / lid redness or swelling. ENT: No external evidence of injury, swelling, or ecchymosis. Airway is patent. Throat is clear. NECK: Nontender. No swelling or evidence of injury. No subcutaneous emphysema. Trachea is midline. No thyroid mass. HEART: Regular rate and rhythm. Good peripheral pulses. LUNGS/CHEST: Breath sounds clear and equal bilaterally. No rales, rhonchi, or wheezes. No ecchymosis, subcutaneous emphysema, or tenderness. ABDOMEN: Abdomen soft with diffuse tenderness including the right flank region. No palpable masses or organomegaly. No peritoneal signs. No abdominal wall swelling or ecchymosis. EXTREMITIES: No extremity tenderness. Normal muscle tone and function. No thoracolumbar tenderness. NEUROLOGIC: Sensation is grossly intact. Cranial nerve exam reveals face is symmetrical, tongue is midline, speech is clear. SKIN: No abrasions or ecchymosis is noted. No induration or masses noted. Slight decreased turgor. PSYCHIATRIC: Alert and oriented. Appropriate behavior and judgment. Limitations: no limitations Course Vital Signs 06/23/21 06/23/21 11:33 13:01 Temperature 98.9 F Pulse Rate 89 78 Respiratory 18 18 Rate Blood Pressure 144/123 124/81 O2 Sat by Pulse 99 97 Oximetry Medical Decision Making - Medical Decision Making The patient was seen and examined. All diagnostics are reviewed. The patient is an IV initiated and receives ample fluid hydration. She initially states that her nausea is fine but is requesting pain medications repeatedly. She receives 4 mg of morphine but states that she still was in significant pain and receives additional 4 mg of morphine and her pain has improved. She later receives for more of Zofran intravenously for continued nausea. Laboratory shows a normal white blood cell count. She has mild anemia. She has definite urinary tract infection noted. Her CO2 is slightly low consistent with dehydration. Her computed tomography scan of her abdomen and pelvis does not show any acute significant abnormalities with some incidental findings, please see report for details. The patient does relate some blood in her stool and Hemoccult will be ordered. She is slightly anemic at 10.9 but this appears stable. Hemoglobin will be rechecked tomorrow. It is felt as though she likely does have pyelonephritis and urinary tract infection. She has intractable pain as well as intractable nausea and vomiting dehydration. It is felt as though she would require admission to the hospital. Case is discussed with nurse practitioner for [facility] and she is agreeable with admission to Dr. Lopez. Case is discussed with case management who feels as though patient is stable for observation type of admission. - Lab Data Result diagrams: 06/23/21 13:06 06/23/21 13:06 Lab Results 06/23/21 06/23/21 06/23/21 Range/Units 13:06 13:06 13:06 WBC 10.6 (3.8-10.6) k/uL RBC 4.20 (3.80-5.40) m/uL Hgb 10.9 L (11.4-16.0) gm/dL Hct 35.7 (34.0-46.0) % MCV 84.9 (80.0-100.0) fL MCH 25.9 (25.0-35.0) pg MCHC 30.5 L (31.0-37.0) g/dL RDW 18.2 H (11.5-15.5) % Plt Count 616 H (150-450) k/uL MPV 7.3 Neutrophils % 56 % Lymphocytes % 34 % Monocytes % 6 % Eosinophils % 2 % Basophils % 1 % Neutrophils # 5.9 (1.3-7.7) k/uL Lymphocytes # 3.6 (1.0-4.8) k/uL Monocytes # 0.6 (0-1.0) k/uL Eosinophils # 0.2 (0-0.7) k/uL Basophils # 0.1 (0-0.2) k/uL Hypochromasia Marked Anisocytosis Slight PT 9.9 (9.0-12.0) sec INR 0.9 (<1.2) APTT 21.5 L (22.0-30.0) sec Sodium (137-145) mmol/L Potassium (3.5-5.1) mmol/L Chloride (98-107) mmol/L Carbon Dioxide (22-30) mmol/L Anion Gap mmol/L BUN (7-17) mg/dL Creatinine (0.52-1.04) mg/dL Est GFR (CKD-EPI)AfAm (>60 ml/min/1.73 sqM) Est GFR (CKD-EPI)NonAf (>60 ml/min/1.73 sqM) Glucose (74-99) mg/dL Plasma Lactic Acid Jeremy (0.7-2.0) mmol/L Calcium (8.4-10.2) mg/dL Total Bilirubin (0.2-1.3) mg/dL AST (14-36) U/L ALT (4-34) U/L Alkaline Phosphatase (38-126) U/L Total Protein (6.3-8.2) g/dL Albumin (3.5-5.0) g/dL Lipase (23-300) U/L Urine Color Light Yellow Urine Appearance Cloudy H (Clear) Urine pH 6.0 (5.0-8.0) Ur Specific [place] 1.014 (1.001-1.035) Urine Protein Trace H (Negative) Urine Glucose (UA) Negative (Negative) Urine Ketones Negative (Negative) Urine Blood Trace H (Negative) Urine Nitrite Positive H (Negative) Urine Bilirubin Negative (Negative) Urine Urobilinogen <2.0 (<2.0) mg/dL Ur Leukocyte Esterase Large H (Negative) Urine RBC 15 H (0-5) /hpf Urine WBC 121 H (0-5) /hpf Ur Squamous Epith Cells 20 H (0-4) /hpf Urine Bacteria Few H (None) /hpf Urine Mucus Rare H (None) /hpf Urine HCG, Qual (Not Detectd) Blood Type Blood Type Recheck Bld Type Recheck Status Antibody Screen Spec Expiration Date 06/23/21 06/23/21 06/23/21 Range/Units 13:06 13:06 13:06 WBC (3.8-10.6) k/uL RBC (3.80-5.40) m/uL Hgb (11.4-16.0) gm/dL Hct (34.0-46.0) % MCV (80.0-100.0) fL MCH (25.0-35.0) pg MCHC (31.0-37.0) g/dL RDW (11.5-15.5) % Plt Count (150-450) k/uL MPV Neutrophils % % Lymphocytes % % Monocytes % % Eosinophils % % Basophils % % Neutrophils # (1.3-7.7) k/uL Lymphocytes # (1.0-4.8) k/uL Monocytes # (0-1.0) k/uL Eosinophils # (0-0.7) k/uL Basophils # (0-0.2) k/uL Hypochromasia Anisocytosis PT (9.0-12.0) sec INR (<1.2) APTT (22.0-30.0) sec Sodium 134 L (137-145) mmol/L Potassium 4.7 (3.5-5.1) mmol/L Chloride 110 H (98-107) mmol/L Carbon Dioxide 17 L (22-30) mmol/L Anion Gap 7 mmol/L BUN 9 (7-17) mg/dL Creatinine 0.87 (0.52-1.04) mg/dL Est GFR (CKD-EPI)AfAm >90 (>60 ml/min/1.73 sqM) Est GFR (CKD-EPI)NonAf 87 (>60 ml/min/1.73 sqM) Glucose 92 (74-99) mg/dL Plasma Lactic Acid Jeremy 0.9 (0.7-2.0) mmol/L Calcium 8.6 (8.4-10.2) mg/dL Total Bilirubin 0.5 (0.2-1.3) mg/dL AST 22 (14-36) U/L ALT 21 (4-34) U/L Alkaline Phosphatase 88 (38-126) U/L Total Protein 7.3 (6.3-8.2) g/dL Albumin 3.8 (3.5-5.0) g/dL Lipase 27 (23-300) U/L Urine Color Urine Appearance (Clear) Urine pH (5.0-8.0) Ur Specific [place] (1.001-1.035) Urine Protein (Negative) Urine Glucose (UA) (Negative) Urine Ketones (Negative) Urine Blood (Negative) Urine Nitrite (Negative) Urine Bilirubin (Negative) Urine Urobilinogen (<2.0) mg/dL Ur Leukocyte Esterase (Negative) Urine RBC (0-5) /hpf Urine WBC (0-5) /hpf Ur Squamous Epith Cells (0-4) /hpf Urine Bacteria (None) /hpf Urine Mucus (None) /hpf Urine HCG, Qual Not Detected (Not Detectd) Blood Type Blood Type Recheck Bld Type Recheck Status Antibody Screen Spec Expiration Date 06/23/21 Range/Units 13:06 WBC (3.8-10.6) k/uL RBC (3.80-5.40) m/uL Hgb (11.4-16.0) gm/dL Hct (34.0-46.0) % MCV (80.0-100.0) fL MCH (25.0-35.0) pg MCHC (31.0-37.0) g/dL RDW (11.5-15.5) % Plt Count (150-450) k/uL MPV Neutrophils % % Lymphocytes % % Monocytes % % Eosinophils % % Basophils % % Neutrophils # (1.3-7.7) k/uL Lymphocytes # (1.0-4.8) k/uL Monocytes # (0-1.0) k/uL Eosinophils # (0-0.7) k/uL Basophils # (0-0.2) k/uL Hypochromasia Anisocytosis PT (9.0-12.0) sec INR (<1.2) APTT (22.0-30.0) sec Sodium (137-145) mmol/L Potassium (3.5-5.1) mmol/L Chloride (98-107) mmol/L Carbon Dioxide (22-30) mmol/L Anion Gap mmol/L BUN (7-17) mg/dL Creatinine (0.52-1.04) mg/dL Est GFR (CKD-EPI)AfAm (>60 ml/min/1.73 sqM) Est GFR (CKD-EPI)NonAf (>60 ml/min/1.73 sqM) Glucose (74-99) mg/dL Plasma Lactic Acid Jeremy (0.7-2.0) mmol/L Calcium (8.4-10.2) mg/dL Total Bilirubin (0.2-1.3) mg/dL AST (14-36) U/L ALT (4-34) U/L Alkaline Phosphatase (38-126) U/L Total Protein (6.3-8.2) g/dL Albumin (3.5-5.0) g/dL Lipase (23-300) U/L Urine Color Urine Appearance (Clear) Urine pH (5.0-8.0) Ur Specific [place] (1.001-1.035) Urine Protein (Negative) Urine Glucose (UA) (Negative) Urine Ketones (Negative) Urine Blood (Negative) Urine Nitrite (Negative) Urine Bilirubin (Negative) Urine Urobilinogen (<2.0) mg/dL Ur Leukocyte Esterase (Negative) Urine RBC (0-5) /hpf Urine WBC (0-5) /hpf Ur Squamous Epith Cells (0-4) /hpf Urine Bacteria (None) /hpf Urine Mucus (None) /hpf Urine HCG, Qual (Not Detectd) Blood Type O Negative Blood Type Recheck O Neg Bld Type Recheck Status No Antibody Screen NEGATIVE Spec Expiration Date 06/26/20212305 Disposition Clinical Impression: Pyelonephritis, Dehydration, Anemia, Nausea and vomiting, History of Crohn's disease, Intractable pain, Chronic pain disorder, GI bleed Disposition: ADMITTED IP TO THIS [facility] Condition: Fair Is patient prescribed a controlled substance at d/c from ED?: No Referrals: Joan Meeks MD [Primary Care Provider] - 1-2 days Time of Disposition: 15:13 Decision Date: 06/23/21 Decision Time: 15:13
[2021-06-23] MEDS ORDERED: ACETAMINOPHEN TAB 325 MG TAB PO PRN (15:15)
[2021-06-23] MEDS ORDERED: ONDANSETRON 4 MG/2 ML VIAL IVP PRN (15:15)
[2021-06-23] MEDS ORDERED: NALOXONE 0.4 MG/ML 1 ML VIAL IV PRN (15:15)
--- NOTE | 2021-06-23 16:25 | P.HPIM ---
History of Present Illness H&P Date: 06/23/21 History of Presenting Illness: Patient is a very pleasant 36-year-old female with a past medical history of fibromyalgia and chronic pain syndrome, asthma, hypertension, hyperlipidemia, hypothyroidism, Crohn's disease, asthma/COPD, GERD, and nicotine dependence and anxiety with bipolar disorder. Patient presented to the emergency department with a chief complaint of abdominal pain. Patient reports awakening around 5 AM with pain in her lower abdomen radiating into right lower flank. Patient reports the pain is severe and was accompanied by nausea with 2 episodes of vomi ting. In addition patient reports feeling the urge to urinate frequently. She denies having urinary frequency, urgency, dysuria, or hematuria. In addition patient denies having any recent fevers, chills, diaphoresis, dizziness, lightheadedness, chest pain, palpitations, shortness of breath, or any other complaints at this time. Patient does report long-standing history of chronic diarrhea resulting from her Crohn's disease, denies having any increase in or changes in her normal daily bowel function. Patient denies any episodes of vomiting since arrival to the hospital. In the emergency department, patient was seen and fully evaluated. CBC unremarkable with the exception of mild thrombocytosis with platelet count of 616 (this is chronic in nature and at baseline levels) and CMP also unremarkable with the exception of mild hyponatremia with sodium of 134. Urinalysis appearing positive, however contaminated specimen with 20 squamous epithelial cells present. CT abdomen and pelvis was completed negative for acute intra-abdominal abnormalities. Vital signs unremarkable. Patient afebrile with temp of 98.9F, heart rate 84, respiratory rate of 18, BP of 131/87, and SpO2 of 97% on room air. Patient started on Levaquin secondary to extensive list of ALLERGIES and admitted under observation status under our services. Review of systems: Pertinent positives and negatives as discussed in HPI, a complete review of systems was performed and all other systems are negative. Physical exam: Vital signs reviewed and stable. General: Nontoxic, no distress and appears stated age. Derm: Skin warm and dry, normal coloration for ethnicity. Head: Atraumatic, normocephalic and symmetric. Eyes: EOMs intact, no lid lag, and anicteric sclera Mouth: no lip lesions, mucus membranes moist Cardiovascular: regular rate and rhythm with normal S1S2, no murmur, positive posterior tibial pulses bilaterally, and cap refill < 2 seconds. Lungs: Respirations even, regular, and unlabored on room air. Lungs CTA bilaterally, no rhonchi, no rales, no wheezing, and no accessory muscle usage. Abdominal: soft, tenderness to palpation to superpubic region as well as right CVA tenderness, no guarding, no appreciable organomegaly Ext: ROM intact. No gross muscle atrophy, no edema, no contractures Neuro: Speech clear, face symmetrical and CN II-XII grossly intact with no noted focal neuro deficits Psych: Alert and oriented to person, place, time, and situation. Appropriate and pleasant affect. Assessment and Plan of Care: Acute Pyelonephritis Abdominal pain, nausea, and vomiting -Urinalysis concerning for infection -Urine culture sent to lab for analysis. -Continue IV antibiotics with Levaquin -Antiemetics as needed for nausea and/or vomiting -IV fluid hydration -Close monitoring of I's and O's Hypertension -Monitor vital signs and continue daily medication regimen with lis inopril/hydrochlorothiazide. Hyperlipidemia -Continue daily medication regimen with simvastatin 20 mg nightly. Hypothyroidism -Continue daily medication regimen with levothyroxine 137 g daily. GERD -GI prophylaxis with PPI, Protonix 40 mg daily. Anxiety and bipolar disorder -Continue daily medication regimen with clonazepam, Depakote, Haldol, Paxil, and Seroquel. Chronic pain syndrome and fibromyalgia -Hold Percocets at this time as patient is receiving IV morphine for treatment of pain associated with pyelonephritis. -May resume home pain medication regimen upon discharge. Nicotine dependence -Encourage patient on the benefits of smoking cessation and the risks associated with continued use. -Nicotine patch The patient is admitted with an anticipated less than 2 midnight stay for evaluation of pyelonephritis. CODE STATUS: Full code DVT prophylaxis: Lovenox Discussed with: Patient Anticipated discharge date: Clinical course to determine Anticipated discharge place: Home A total of 42 minutes was spent on the care of this complex patient more than 50% of the time was spent in counseling and care coordination. Franky Hernadez NP rendered care for this patient independently, reviewed the findings and plan as documented in the note above. I did not physically speak with or examine the patient on this date. Past Medical History Past Medical History: Asthma, Fibromyalgia, GERD/Reflux, Hypertension, Neurologic Disorder, Seizure Disorder, Thyroid Disorder Additional Past Medical History / Comment(s): crohns disease, diverticulosis, ibs, chronic colitis.,carpal tunnel solo wrists, anemia, chronic back pain , migraines, pinched nerves, Hx fall in June and broke old fracture above right ankle- wears boot., frequent nausea, last seizure 1 month ago., hx pancreatitis. History of Any Multi-Drug Resistant Organisms: None Reported Past Surgical History: Adenoidectomy, Appendectomy, Cholecystectomy, Orthopedic Surgery, Tonsillectomy Additional Past Surgical History / Comment(s): EGD/colonoscopy, right ankle surgery, broken nose surgery Past Anesthesia/Blood Transfusion Reactions: Previous Problems w/ Anesthesia, Postoperative Nausea & Vomiting (PONV) Additional Past Anesthesia/Blood Transfusion Reaction / Comment(s): hallucinations x1 Past Psychological History: Anxiety, Bipolar, Depression, PTSD Smoking Status: Current every day smoker Past Alcohol Use History: None Reported Past Drug Use History: None Reported - Past Family History Father Family Medical History: Diabetes Mellitus, Hyperlipidemia Mother Family Medical History: Cancer, CVA/TIA, Deep Vein Thrombosis (DVT), Osteoarthritis (OA), Thyroid Disorder Additional Family Medical History / Comment(s): Extensive tattoos throughout body Medications and Allergies Home Medications Medication Instructions Recorded Confirmed Type Levothyroxine Sodium [Synthroid] 137 mcg PO DAILY 08/07/18 06/23/21 History Montelukast [Singulair] 10 mg PO DAILY 08/07/18 06/23/21 History Balsalazide Disodium 2,250 mg PO TID 11/16/19 06/23/21 History Lisinopril-Hctz 20-25 mg 2 tab PO DAILY 11/16/19 06/23/21 History [Zestoretic 20-25] Famotidine [Pepcid] 20 mg PO BID 03/06/20 06/23/21 History Simvastatin [Zocor] 20 mg PO HS 03/06/20 06/23/21 History haloperidoL [Haldol] 1 mg PO BID #4 tab 06/04/20 06/23/21 Rx Divalproex [Depakote] 1,500 mg PO TID 07/14/20 06/23/21 History Loratadine [Claritin] 10 mg PO DAILY 07/14/20 06/23/21 History Gabapentin [Neurontin] 1,200 mg PO TID 10/01/20 06/23/21 History Butalb/APAP/Caff 50-325-40Mg 1 tab PO TID PRN 11/18/20 06/23/21 History [Fioricet 50-325-40] ondansetron HCL [Zofran] 8 mg PO Q12H PRN 11/18/20 06/23/21 History Folic Acid 2 mg PO DAILY 02/06/21 06/23/21 History PARoxetine HCL [Paxil] 60 mg PO DAILY 02/06/21 06/23/21 History QUEtiapine FUMARATE [SEROquel] 600 mg PO HS 02/06/21 06/23/21 History Dicyclomine [Bentyl] 10 mg PO ACHS 06/23/21 06/23/21 History Ferrous Sulfate [Feosol] 325 mg PO BID 06/23/21 06/23/21 History Pantoprazole [Protonix] 40 mg PO DAILY 06/23/21 06/23/21 History clonazePAM [KlonoPIN] 1 mg PO TID 06/23/21 06/23/21 History oxyCODONE-APAP 10-325MG [Percocet 1 tab PO Q8HR PRN 06/23/21 06/23/21 History 10-325 mg] Allergies Allergy/AdvReac Type Severity Reaction Status Date / Time dicyclomine [From Bentyl] Allergy Severe Hallucinati Verified 06/23/21 15:44 ons granisetron HCl [From Kytril] Allergy Severe Anaphylaxis Verified 06/23/21 15:44 azithromycin Allergy Rash/Hives Verified 06/23/21 15:44 baclofen Allergy Rash/Hives Verified 06/23/21 15:44 butorphanol [From Stadol] Allergy Rash/Hives Verified 06/23/21 15:44 butorphanol tartrate Allergy Rash/Hives Verified 06/23/21 15:44 [From Stadol] Cephalosporins Allergy Rash/Hives Verified 06/23/21 15:44 cyclobenzaprine Allergy Unknown Verified 06/23/21 15:44 [From Flexeril] dicloxacillin Allergy Rash/Hives Verified 06/23/21 15:44 granisetron [From Kytril] Allergy Anaphylaxis Verified 06/23/21 15:44 ketorolac Allergy Rash/Hives Verified 06/23/21 15:44 ketorolac tromethamine Allergy Rash/Hives Verified 06/23/21 15:44 [From Toradol] meperidine Allergy Unknown Verified 06/23/21 15:44 meperidine HCl [From Demerol] Allergy Swelling Verified 06/23/21 15:44 pregabalin [From Lyrica] Allergy Unknown Verified 06/23/21 15:44 risperidone [From Risperdal] Allergy Dyspnea Verified 06/23/21 15:44 sulfamethoxazole Allergy Rash/Hives Verified 06/23/21 15:44 [From Bactrim] trimethoprim [From Bactrim] Allergy Rash/Hives Verified 06/23/21 15:44 methylprednisolone AdvReac Vomiting & Verified 06/23/21 15:44 [From Medrol] Headache Physical Exam Osteopathic Statement: *. No significant issues noted on an osteopathic structural exam other than those noted in the History and Physical/Consult. Vitals: Vital Signs Temp Pulse Resp BP Pulse Ox 06/23/21 15:00 84 18 131/87 97 06/23/21 13:01 78 18 124/81 97 06/23/21 11:33 98.9 F 89 18 144/123 99 Intake and Output 06/23/21 06/23/21 06/23/21 06:59 14:59 22:59 Other: Weight 95.254 kg Results CBC & Chem 7: 06/23/21 13:06 06/23/21 13:06 Labs: Abnormal Lab Results - Last 24 Hours (Table) 06/23/21 06/23/21 06/23/21 Range/Units 13:06 13:06 13:06 Hgb 10.9 L (11.4-16.0) gm/dL MCHC 30.5 L (31.0-37.0) g/dL RDW 18.2 H (11.5-15.5) % Plt Count 616 H (150-450) k/uL APTT 21.5 L (22.0-30.0) sec Sodium (137-145) mmol/L Chloride (98-107) mmol/L Carbon Dioxide (22-30) mmol/L Urine Appearance Cloudy H (Clear) Urine Protein Trace H (Negative) Urine Blood Trace H (Negative) Urine Nitrite Positive H (Negative) Ur Leukocyte Esterase Large H (Negative) Urine RBC 15 H (0-5) /hpf Urine WBC 121 H (0-5) /hpf Ur Squamous Epith Cells 20 H (0-4) /hpf Urine Bacteria Few H (None) /hpf Urine Mucus Rare H (None) /hpf 06/23/21 Range/Units 13:06 Hgb (11.4-16.0) gm/dL MCHC (31.0-37.0) g/dL RDW (11.5-15.5) % Plt Count (150-450) k/uL APTT (22.0-30.0) sec Sodium 134 L (137-145) mmol/L Chloride 110 H (98-107) mmol/L Carbon Dioxide 17 L (22-30) mmol/L Urine Appearance (Clear) Urine Protein (Negative) Urine Blood (Negative) Urine Nitrite (Negative) Ur Leukocyte Esterase (Negative) Urine RBC (0-5) /hpf Urine WBC (0-5) /hpf Ur Squamous Epith Cells (0-4) /hpf Urine Bacteria (None) /hpf Urine Mucus (None) /hpf
[2021-06-23] MEDS: MORPHINE SULFATE 4 MG/ML SYRINGE IV PRN ×2 (16:59→20:54)
[2021-06-23] MEDS: NICOTINE 21MG/24HR PATCH TRANSDERM SCH (18:01)
[2021-06-23] MEDS: FERROUS SULFATE 325 MG TAB PO SCH (20:53)
[2021-06-23] MEDS: haloperidoL 1 MG TAB PO SCH (20:53)
[2021-06-23] MEDS ORDERED: ATORVASTATIN 10 MG TAB PO SCH (21:00)
[2021-06-23] MEDS ORDERED: QUEtiapine 200 MG TAB PO SCH (21:00)
[2021-06-23] MEDS: DIVALPROEX 500 MG TABLET.DR PO SCH (22:16)
[2021-06-23] MEDS: ONDANSETRON 4 MG/2 ML VIAL IVP PRN (22:16)
[2021-06-23] MEDS: clonazePAM 1 MG TAB PO SCH (22:16)
[2021-06-23] MEDS: GABAPENTIN 400 MG CAP PO SCH (22:16)
[2021-06-24] MEDS: MORPHINE SULFATE 4 MG/ML SYRINGE IV PRN ×3 (02:29→11:06)
[2021-06-24] MEDS: haloperidoL 1 MG TAB PO SCH (07:49)
[2021-06-24] MEDS: GABAPENTIN 400 MG CAP PO SCH (07:50)
[2021-06-24] MEDS: FERROUS SULFATE 325 MG TAB PO SCH (07:51)
[2021-06-24] MEDS: NICOTINE 21MG/24HR PATCH TRANSDERM SCH (07:52)
[2021-06-24 08:04] VITALS: BP 138/95; PULSE 87; RESP 16; TEMP 98.2
[2021-06-24] MEDS: DIVALPROEX 500 MG TABLET.DR PO SCH (08:09)
[2021-06-24] MEDS ORDERED: LORATADINE 10 MG TAB PO SCH (09:00)
[2021-06-24] MEDS ORDERED: MONTELUKAST 10 MG TAB PO SCH (09:00)
[2021-06-24] MEDS ORDERED: FOLIC ACID 1 MG TAB PO SCH (09:00)
[2021-06-24] MEDS ORDERED: PARoxetine 20 MG TAB PO SCH (09:00)
[2021-06-24] MEDS ORDERED: ENOXAPARIN 40 MG/0.4 ML SYRINGE SQ SCH (09:00)
[2021-06-24] MEDS ORDERED: LEVOTHYROXINE 137 MCG TAB PO SCH (09:00)
[2021-06-24] MEDS ORDERED: PANTOPRAZOLE 40 MG/10 ML VIAL IV SCH (09:00)
[2021-06-24] MEDS ORDERED: LEVOFLOXACIN 750 MG TAB PO SCH (09:00)
[2021-06-24] MEDS ORDERED: LISINOPRIL-HCTZ 20-25 MG 1 EACH TAB PO SCH (09:00)
[2021-06-24 09:31] LABS: Basophils # (A) 0.03 X 10*3/uL (0.00-0.10); Basophils % (A) 0.3 %; Eosinophils # (A) 0.18 X 10*3/uL (0.04-0.35); Eosinophils % (A) 2.1 %; HGB 9.6 g/dL (12.0-15.0); Immature Grans, Automated 0.6 %; Lymphocytes % (A) 36.7 %; MCH 25.3 pg (27.0-32.0); MCV 84.2 fL (80.0-97.0); Monocytes # (A) 0.76 X 10*3/uL (0.20-1.00); Monocytes % (A) 8.7 %; NRBC Per 100 WBC 0 /100 WBCS (0.0-0.0); Neutrophils # (A) 4.51 X 10*3/uL (1.80-7.70); Neutrophils % (A) 51.6 %; Platelet Count 539 X 10*3/uL (140-440); RDW 19.2 % (11.5-14.5); WBC 8.73 X 10*3/uL (4.50-10.00)
[2021-06-24 09:33] LABS: African American GFR (CKD) 110.7 (60.0-200.0); Anion Gap 11.6 mmol/L (10.00-18.00); BUN/Creat Ratio 6.63 Ratio (12.00-20.00); Blood Urea Nitrogen 5.3 mg/dL (9.0-27.0); Calcium 8.6 mg/dL (8.7-10.3); Carbon Dioxide 20.4 mmol/L (20.0-27.5); Non-African American GFR(CKD) 95.5 (60.0-200.0); Potassium 4.5 mmol/L (3.5-5.5)
[2021-06-24] MEDS: clonazePAM 1 MG TAB PO SCH (09:46)
[2021-06-24] MEDS: ONDANSETRON 4 MG/2 ML VIAL IVP PRN (09:46)
[2021-06-24] MEDS ORDERED: oxyCODONE-APAP 10-325MG 1 EACH TAB PO ONE (10:42)
--- NOTE | 2021-06-24 11:46 | P.DS ---
Providers Date of admission: 06/23/21 15:15 Expected date of discharge: 06/24/21 Attending physician: Katt Payne DO Primary care physician: Joan Meeks Hospital Course: Discharge Diagnosis: Acute Pyelonephritis Abdominal pain, nausea, and vomiting secondary to above Hypertension Hyperlipidemia Hypothyroidism GERD Anxiety and bipolar disorder Chronic pain syndrome and fibromyalgia Nicotine dependence Hospital Course: Patient is a very pleasant 36-year-old female with a past medical history of fibromyalgia and chronic pain syndrome, asthma, hypertension, hyperlipidemia, hypothyroidism, Crohn's disease, asthma/COPD, GERD, and nicotine dependence and anxiety with bipolar disorder. Patient presented to the emergency department with a chief complaint of abdominal pain. Patient reports awakening around 5 AM with pain in her lower abdomen radiating into right lower flank. Patient reports the pain is severe and was accompanied by nausea with 2 episodes of vomiting. In addition patient reports feeling the urge to urinate frequently. She denies having urinary frequency, urgency, dysuria, or hematuria. In addition patient denies having any recent fevers, chills, diaphoresis, dizziness, lightheadedness, chest pain, palpitations, shortness of breath, or any other complaints at this time. Patient does report long-standing history of chronic diarrhea resulting from her Crohn's disease, denies having any increase in or changes in her normal daily bowel function. Patient denies any episodes of vomiting since arrival to the hospital. In the emergency department, patient was seen and fully evaluated. CBC unremarkable with the exception of mild thrombocytosis with platelet count of 616 (this is chronic in nature and at baseline levels) and CMP also unremarkable with the exception of mild hyponatremia with sodium of 134. Urinalysis appearing positive, however contaminated specimen with 20 squamous epithelial cells present. CT abdomen and pelvis was completed negative for acute intra-abdominal abnormalities. Vital signs unremarkable. Patient afebrile with temp of 98.9F, heart rate 84, respiratory rate of 18, BP of 131/87, and SpO2 of 97% on room air. Patient started on Levaquin secondary to extensive list of ALLERGIES and admitted under observation status under our services. Patient monitored overnight. Vital signs remained stable, patient remained afebrile showing no signs of sepsis. Urine culture preliminary resulting gram-negative bacilli, blood culture showing no growth after 24 hours. Repeat morning labs stable. Hemoglobin 9.6 with baseline hemoglobin of 10. Patient has had no further episodes of vomiting since admission. WBC count 8.73. Went to bedside to discuss plan of care with patient, patient reports that her mother has arrived to the hospital to pick her up and requesting discharge at this time stating she has to go. Patient educated on the importance of completing entire antibiotic course and verbalized understanding. Patient stated antibiotic must be sent to pharmacy near her house because her mother will not wait for her to get it from our pharmacy. Antibiotic sent to pharmacy as patient requested. Patient discharged home on Levaquin 750 mg daily for 4 additional day to complete 5 day course of antibiotics. Physical exam: Vital signs reviewed and stable. General: Nontoxic, no distress and appears stated age. Derm: Skin warm and dry, normal coloration for ethnicity. Head: Atraumatic, normocephalic and symmetric. Eyes: EOMs intact, no lid lag, and anicteric sclera Mouth: no lip lesions, mucus membranes moist Cardiovascular: regular rate and rhythm with normal S1S2, no murmur, positive posterior tibial pulses bilaterally, and cap refill < 2 seconds. Lungs: Respirations even, regular, and unlabored on room air. Lungs CTA bilaterally, no rhonchi, no rales, no wheezing, and no accessory muscle usage. Abdominal: soft, slight tenderness to palpation to superpubic region as well as right CVA tenderness but patient reports improved from yesterday, no guarding, no appreciable organomegaly Ext: ROM intact. No gross muscle atrophy, no edema, no contractures Neuro: Speech clear, face symmetrical and CN II-XII grossly intact with no noted focal neuro deficits Psych: Alert and oriented to person, place, time, and situation. Appropriate and pleasant affect. A total of 38 minutes of time were spent preparing this complex discharge summary. Patient Condition at Discharge: Stable Plan - Discharge Summary Discharge Rx Participant: No New Discharge Prescriptions: New Levofloxacin [Levaquin] 750 mg PO DAILY 4 Days #4 tab Continue Montelukast [Singulair] 10 mg PO DAILY Levothyroxine Sodium [Synthroid] 137 mcg PO DAILY Balsalazide Disodium 2,250 mg PO TID Lisinopril-Hctz 20-25 mg [Zestoretic 20-25] 2 tab PO DAILY Famotidine [Pepcid] 20 mg PO BID Simvastatin [Zocor] 20 mg PO HS haloperidoL [Haldol] 1 mg PO BID #4 tab Divalproex [Depakote] 1,500 mg PO TID Gabapentin [Neurontin] 1,200 mg PO TID Butalb/APAP/Caff 50-325-40Mg [Fioricet 50-325-40] 1 tab PO TID PRN PRN Reason: Migraine Headache PARoxetine HCL [Paxil] 60 mg PO DAILY clonazePAM [KlonoPIN] 1 mg PO TID Ferrous Sulfate [Iron (65 MG Elemental)] 325 mg PO BID oxyCODONE-APAP 10-325MG [Percocet 10-325 mg] 1 tab PO Q8HR PRN PRN Reason: Pain Pantoprazole [Protonix] 40 mg PO DAILY Loratadine [Claritin] 10 mg PO DAILY ondansetron HCL [Zofran] 8 mg PO Q12H PRN PRN Reason: Nausea And Vomiting QUEtiapine FUMARATE [SEROquel] 600 mg PO HS Folic Acid 2 mg PO DAILY Dicyclomine [Bentyl] 10 mg PO ACHS Discharge Medication List Levothyroxine Sodium [Synthroid] 137 mcg PO DAILY 08/07/18 [History] Montelukast [Singulair] 10 mg PO DAILY 08/07/18 [History] Balsalazide Disodium 2,250 mg PO TID 11/16/19 [History] Lisinopril-Hctz 20-25 mg [Zestoretic 20-25] 2 tab PO DAILY 11/16/19 [History] Famotidine [Pepcid] 20 mg PO BID 03/06/20 [History] Simvastatin [Zocor] 20 mg PO HS 03/06/20 [History] haloperidoL [Haldol] 1 mg PO BID #4 tab 06/04/20 [Rx] Divalproex [Depakote] 1,500 mg PO TID 07/14/20 [History] Loratadine [Claritin] 10 mg PO DAILY 07/14/20 [History] Gabapentin [Neurontin] 1,200 mg PO TID 10/01/20 [History] Butalb/APAP/Caff 50-325-40Mg [Fioricet 50-325-40] 1 tab PO TID PRN 11/18/20 [History] ondansetron HCL [Zofran] 8 mg PO Q12H PRN 11/18/20 [History] Folic Acid 2 mg PO DAILY 02/06/21 [History] PARoxetine HCL [Paxil] 60 mg PO DAILY 02/06/21 [History] QUEtiapine FUMARATE [SEROquel] 600 mg PO HS 02/06/21 [History] Dicyclomine [Bentyl] 10 mg PO ACHS 06/23/21 [History] Ferrous Sulfate [Iron (65 MG Elemental)] 325 mg PO BID 06/23/21 [History] Pantoprazole [Protonix] 40 mg PO DAILY 06/23/21 [History] clonazePAM [KlonoPIN] 1 mg PO TID 06/23/21 [History] oxyCODONE-APAP 10-325MG [Percocet 10-325 mg] 1 tab PO Q8HR PRN 06/23/21 [History] Levofloxacin [Levaquin] 750 mg PO DAILY 4 Days #4 tab 06/24/21 [Rx] Follow up Appointment(s)/Referral(s): Joan Meeks MD [Primary Care Provider] - 1-2 days Patient Instructions/Handouts: Urinary Tract Infection in Women (DC) Activity/Diet/Wound Care/Special Instructions: Activity: As tolerated. Take breaks as needed. Diet: Heart healthy and carb consistent diet. Avoid salts, or foods with hidden salts such as canned or boxed foods and frozen dinners. Extra salt makes your heart work harder and traps the fluid in your body for longer. Special Instructions: Take all of your medications as directed and remember to keep all of your doctor's appointments and follow-up as needed. Thank you for allowing us to participate in your care, it was truly a pleasure having you for our patient!!! Discharge Disposition: HOME SELF-CARE
== END 2021-06-24 11:58 | disposition home or self-care (01) ==
LOC: EC 11:27 → 6NMEDSUR 15:15
PROVIDERS: ADMIT Internal Medicine; ATTEND Internal Medicine
DX: N10 Acute pyelonephritis (principal); E86.0 Dehydration; K50.90 Crohn's disease, unspecified, without complications; I10 Essential (primary) hypertension; K21.9 Gastro-esophageal reflux disease without esophagitis; E87.1 Hypo-osmolality and hyponatremia; D75.839 Thrombocytosis, unspecified; G40.909 Epilepsy, unspecified, not intractable, without status epilepticus; E78.5 Hyperlipidemia, unspecified; E03.9 Hypothyroidism, unspecified; G89.4 Chronic pain syndrome; G43.909 Migraine, unspecified, not intractable, without status migrainosus; M79.7 Fibromyalgia; M54.9 Dorsalgia, unspecified; D64.9 Anemia, unspecified; F43.10 Post-traumatic stress disorder, unspecified; F41.9 Anxiety disorder, unspecified; F31.9 Bipolar disorder, unspecified; F17.200 Nicotine dependence, unspecified, uncomplicated; Z79.890 Hormone replacement therapy; Z79.51 Long term (current) use of inhaled steroids; Z79.899 Other long term (current) drug therapy; Z88.1 Allergy status to other antibiotic agents; Z88.2 Allergy status to sulfonamides; Z88.5 Allergy status to narcotic agent; Z88.8 Allergy status to other drugs, medicaments and biological substances; Z90.49 Acquired absence of other specified parts of digestive tract; Z87.19 Personal history of other diseases of the digestive system; Z91.81 History of falling; Z87.81 Personal history of (healed) traumatic fracture; Z98.890 Other specified postprocedural states; Z83.3 Family history of diabetes mellitus; Z83.49 Family history of other endocrine, nutritional and metabolic diseases; Z82.61 Family history of arthritis; Z82.3 Family history of stroke; Z82.49 Family history of ischemic heart disease and other diseases of the circulatory system
CPT/HCPCS: 96376 ×3; 96372; 96361; 96365; 96375; 99285; 36415; 86900; 86901; 80053; 80048; 83605; 83690; 85025 ×2; 85610; 85730; 86850; 81001; 81025; 87040; 87086; 87077; 87186; 74177; G0378 ×2; S4990 ×2; J2270 ×3; J2405 ×2; J1650; J1956; C9113 ×2; Q9967

== ENCOUNTER 2021-08-30 15:50 | Emergency (ER) | payer OTHER ==
[2021-08-30 16:00] VITALS: RESP 18; TEMP 97.9
[2021-08-30] MEDS ORDERED: FAMOTIDINE 20 MG/2 ML VIAL IV STA (17:28)
[2021-08-30] MEDS ORDERED: METOCLOPRAMIDE 5 MG/ML 2 ML VIAL IVP STA (17:28)
[2021-08-30] MEDS ORDERED: SODIUM CHLORIDE 0.9% 1,000 ML IV STA (17:28)
[2021-08-30] MEDS ORDERED: MORPHINE SULFATE 4 MG/ML SYRINGE IVP STA (17:28)
[2021-08-30] MEDS ORDERED: diphenhydrAMINE 50 MG/ML 1 ML VIAL IVP STA (17:29)
--- NOTE | 2021-08-30 17:33 | ED ---
Abdominal Pain HPI - General Chief Complaint: Abdominal Pain Stated Complaint: Abd Pain Time Seen by Provider: 08/30/21 17:16 Source: patient, RN notes reviewed Mode of arrival: wheelchair Limitations: no limitations - History of Present Illness Initial Comments: This is a 36 year old female with an extensive GI history including Crohn's disease, chronic colitis, and diverticulosis. She has had multiple presentations to the emergency department for abdominal pain, and has had 23 CTs of her abdomen and pelvis at this facility. She presents to the emergency department for abdominal pain that began this morning. States that this is in the center of her abdomen, and she has associated nausea and vomiting. No change in her bowel habits. States that this feels different from a Crohn's attack, and wonders if she may have a kidney infection. She also feels hot and cold, but has not measured any fevers. Patient is very tearful on examination. Denies any fevers, chills, sore throat, cough, dyspnea, chest pain, palpitations, diarrhea, back pain, or headaches. MD Complaint: abdominal pain Location: periumbilical Radiation: none Migration to: no migration Associated Symptoms: nausea, vomiting - Related Data Home Medications Medication Instructions Recorded Confirmed Levothyroxine Sodium [Synthroid] 137 mcg PO DAILY 08/07/18 06/23/21 Montelukast [Singulair] 10 mg PO DAILY 08/07/18 06/23/21 Balsalazide Disodium 2,250 mg PO TID 11/16/19 06/23/21 Lisinopril-Hctz 20-25 mg 2 tab PO DAILY 11/16/19 06/23/21 [Zestoretic 20-25] Famotidine [Pepcid] 20 mg PO BID 03/06/20 06/23/21 Simvastatin [Zocor] 20 mg PO HS 03/06/20 06/23/21 Divalproex [Depakote] 1,500 mg PO TID 07/14/20 06/23/21 Loratadine [Claritin] 10 mg PO DAILY 07/14/20 06/23/21 Gabapentin [Neurontin] 1,200 mg PO TID 10/01/20 06/23/21 Butalb/APAP/Caff 50-325-40Mg 1 tab PO TID PRN 11/18/20 06/23/21 [Fioricet 50-325-40] ondansetron HCL [Zofran] 8 mg PO Q12H PRN 11/18/20 06/23/21 Folic Acid 2 mg PO DAILY 02/06/21 06/23/21 PARoxetine HCL [Paxil] 60 mg PO DAILY 02/06/21 06/23/21 QUEtiapine FUMARATE [SEROquel] 600 mg PO HS 02/06/21 06/23/21 Dicyclomine [Bentyl] 10 mg PO ACHS 06/23/21 06/23/21 Ferrous Sulfate [Iron (65 MG 325 mg PO BID 06/23/21 06/23/21 Elemental)] Pantoprazole [Protonix] 40 mg PO DAILY 06/23/21 06/23/21 clonazePAM [KlonoPIN] 1 mg PO TID 06/23/21 06/23/21 oxyCODONE-APAP 10-325MG [Percocet 1 tab PO Q8HR PRN 06/23/21 06/23/21 10-325 mg] Previous Rx's Medication Instructions Recorded haloperidoL [Haldol] 1 mg PO BID #4 tab 06/04/20 Levofloxacin [Levaquin] 750 mg PO DAILY 4 Days #4 tab 06/24/21 Allergies Allergy/AdvReac Type Severity Reaction Status Date / Time dicyclomine [From Bentyl] Allergy Severe Hallucinati Verified 06/23/21 15:44 ons granisetron HCl [From Kytril] Allergy Severe Anaphylaxis Verified 06/23/21 15:44 azithromycin Allergy Rash/Hives Verified 06/23/21 15:44 baclofen Allergy Rash/Hives Verified 06/23/21 15:44 butorphanol [From Stadol] Allergy Rash/Hives Verified 06/23/21 15:44 butorphanol tartrate Allergy Rash/Hives Verified 06/23/21 15:44 [From Stadol] Cephalosporins Allergy Rash/Hives Verified 06/23/21 15:44 cyclobenzaprine Allergy Unknown Verified 06/23/21 15:44 [From Flexeril] dicloxacillin Allergy Rash/Hives Verified 06/23/21 15:44 granisetron [From Kytril] Allergy Anaphylaxis Verified 06/23/21 15:44 ketorolac Allergy Rash/Hives Verified 06/23/21 15:44 ketorolac tromethamine Allergy Rash/Hives Verified 06/23/21 15:44 [From Toradol] meperidine Allergy Unknown Verified 06/23/21 15:44 meperidine HCl [From Demerol] Allergy Swelling Verified 06/23/21 15:44 pregabalin [From Lyrica] Allergy Unknown Verified 06/23/21 15:44 risperidone [From Risperdal] Allergy Dyspnea Verified 06/23/21 15:44 sulfamethoxazole Allergy Rash/Hives Verified 06/23/21 15:44 [From Bactrim] trimethoprim [From Bactrim] Allergy Rash/Hives Verified 06/23/21 15:44 methylprednisolone AdvReac Vomiting & Verified 06/23/21 15:44 [From Medrol] Headache Review of Systems ROS Statement: Those systems with pertinent positive or pertinent negative responses have been documented in the HPI. ROS Other: All systems not noted in ROS Statement are negative. Past Medical History Past Medical History: Asthma, Fibromyalgia, GERD/Reflux, Hypertension, Neurol ogic Disorder, Seizure Disorder, Thyroid Disorder Additional Past Medical History / Comment(s): crohns disease, diverticulosis, ibs, chronic colitis.,carpal tunnel solo wrists, anemia, chronic back pain , migraines, pinched nerves, Hx fall in June and broke old fracture above right ankle- wears boot., frequent nausea, last seizure 1 month ago., hx pancreatitis. History of Any Multi-Drug Resistant Organisms: None Reported Past Surgical History: Adenoidectomy, Appendectomy, Cholecystectomy, Orthopedic Surgery, Tonsillectomy Additional Past Surgical History / Comment(s): EGD/colonoscopy, right ankle surgery, broken nose surgery Past Anesthesia/Blood Transfusion Reactions: Previous Problems w/ Anesthesia, Postoperative Nausea & Vomiting (PONV) Additional Past Anesthesia/Blood Transfusion Reaction / Comment(s): hallucinations x1 Past Psychological History: Anxiety, Bipolar, Depression, PTSD Smoking Status: Current every day smoker Past Alcohol Use History: None Reported Past Drug Use History: None Reported - Past Family History Father Family Medical History: Diabetes Mellitus, Hyperlipidemia Mother Family Medical History: Cancer, CVA/TIA, Deep Vein Thrombosis (DVT), Osteoarthritis (OA), Thyroid Disorder Additional Family Medical History / Comment(s): Extensive tattoos throughout body General Exam Limitations: no limitations General appearance: alert, in distress Head exam: Present: atraumatic, normocephalic, normal inspection Respiratory exam: Present: normal lung sounds bilaterally. Absent: respiratory distress, wheezes, rales, rhonchi, stridor Cardiovascular Exam: Present: regular rate, normal rhythm, normal heart sounds. Absent: systolic murmur, diastolic murmur, rubs, gallop, clicks GI/Abdominal exam: Present: soft, tenderness (diffuse), normal bowel sounds. Absent: distended, guarding, rebound, rigid Neurological exam: Present: alert, oriented X3, CN II-XII intact Psychiatric exam: Present: normal affect, normal mood Skin exam: Present: warm, dry, intact, normal color. Absent: rash Course Vital Signs 08/30/21 08/30/21 15:58 18:22 Temperature 97.9 F Pulse Rate 85 76 Respiratory 18 18 Rate Blood Pressure 131/81 149/102 O2 Sat by Pulse 98 100 Oximetry Medical Decision Making - Medical Decision Making This is a 36-year-old female who presents to the emergency department for abdominal pain. Lab work and urinalysis were obtained, revealing no actionable findings. Patient given fluids and medication for pain and nausea. Patient continues to complain of right lower quadrant pain, and is concerned about what may be causing this. Advised the patient that she has had 23 CT scans at this facility, and it is not advised to continue proceeding with these due to the significant radiation exposure. I advised we proceed with an ultrasound for evaluation of abdominal pain. The patient is agreeable to this, and an abdominal ultrasound was obtained. This revealed no irregularities. Patient states that she is staying with a friend until tomorrow due to a lack of her own transportation (this friend is with her in the emergency department) and does not have access to her Percocet or Zofran. Starter packs for Tylenol #3 and Zofran provided. Advised the patient that she needs follow-up with doctor Pan next week for further evaluation of ongoing symptoms. Return precautions reviewed in depth, the patient is instructed to return to the emergency department with any new, worsening, or concerning symptoms. Patient verbalized understanding. This case was discussed in detail with the attending ED physician. Presentation, findings, and treatment plan discussed in detail as well. - Lab Data Result diagrams: 08/30/21 16:02 08/30/21 16:02 Lab Results 08/30/21 08/30/21 08/30/21 Range/Units 16:02 16:02 18:22 WBC 9.8 (3.8-10.6) k/uL RBC 3.76 L (3.80-5.40) m/uL Hgb 9.9 L (11.4-16.0) gm/dL Hct 31.9 L (34.0-46.0) % MCV 84.8 (80.0-100.0) fL MCH 26.2 (25.0-35.0) pg MCHC 30.8 L (31.0-37.0) g/dL RDW 19.2 H (11.5-15.5) % Plt Count 507 H (150-450) k/uL MPV 7.2 Neutrophils % 33 % Lymphocytes % 57 % Monocytes % 5 % Eosinophils % 1 % Basophils % 0 % Neutrophils # 3.3 (1.3-7.7) k/uL Lymphocytes # 5.6 H (1.0-4.8) k/uL Monocytes # 0.5 (0-1.0) k/uL Eosinophils # 0.1 (0-0.7) k/uL Basophils # 0.0 (0-0.2) k/uL Manual Slide Review Performed Hypochromasia Marked Anisocytosis Slight Sodium 137 (137-145) mmol/L Potassium 4.1 (3.5-5.1) mmol/L Chloride 109 H (98-107) mmol/L Carbon Dioxide 22 (22-30) mmol/L Anion Gap 6 mmol/L BUN 5 L (7-17) mg/dL Creatinine 0.78 (0.52-1.04) mg/dL Est GFR (CKD-EPI)AfAm >90 (>60 ml/min/1.73 sqM) Est GFR (CKD-EPI)NonAf >90 (>60 ml/min/1.73 sqM) Glucose 80 (74-99) mg/dL Calcium 8.4 (8.4-10.2) mg/dL Total Bilirubin 0.2 (0.2-1.3) mg/dL AST 15 (14-36) U/L ALT 10 (4-34) U/L Alkaline Phosphatase 87 (38-126) U/L Total Protein 6.2 L (6.3-8.2) g/dL Albumin 3.4 L (3.5-5.0) g/dL Amylase 73 (30-110) U/L Lipase 45 (23-300) U/L Urine Color Light Yellow Urine Appearance Clear (Clear) Urine pH 6.0 (5.0-8.0) Ur Specific Mchenry 1.007 (1.001-1.035) Urine Protein Negative (Negative) Urine Glucose (UA) Negative (Negative) Urine Ketones Negative (Negative) Urine Blood Negative (Negative) Urine Nitrite Negative (Negative) Urine Bilirubin Negative (Negative) Urine Urobilinogen <2.0 (<2.0) mg/dL Ur Leukocyte Esterase Negative (Negative) - Radiology Data Radiology results: report reviewed, image reviewed Disposition Clinical Impression: RLQ abdominal pain Disposition: HOME SELF-CARE Instructions (If sedation given, give patient instructions): Abdominal Pain (ED) Additional Instructions: Return to the emergency department with any new, worsening, or concerning symptoms. Contact Dr. Pan for a follow up appointment. Is patient prescribed a controlled substance at d/c from ED?: No Referrals: Joan Meeks MD [Primary Care Provider] - 1-2 days
[2021-08-30 18:25] VITALS: BP 149/102; PULSE 76
[2021-08-30 18:38] LABS: Appearance,Urine Clear (Clear); Bilirubin,Urine Negative (Negative); Blood,Urine Negative (Negative); Color,Urine Light Yellow; Glucose,Urine (UA) Negative (Negative); Ketones,Urine Negative (Negative); Leukocyte Esterase,Urine Negative (Negative); Nitrite,Urine Negative (Negative); Protein,Urine Negative (Negative); Specific Gravity,Urine 1.007 (1.001-1.035); Urobilinogen,Urine <2.0 mg/dL (<2.0)
[2021-08-30] MEDS ORDERED: HYDROmorphone 0.5 MG/0.5 ML SYRINGE IVP STA ×2 (19:02→21:37)
[2021-08-30] MEDS ORDERED: DIVALPROEX 500 MG TABLET.DR PO STA (20:37)
[2021-08-30] MEDS ORDERED: GABAPENTIN 400 MG CAP PO STA (20:38)
[2021-08-30 21:00] LABS: ALT 10 U/L (4-34); AST 15 U/L (14-36); African American GFR (CKD) >90 (>60 ml/min/1.73 sqM); Albumin 3.4 g/dL (3.5-5.0); Alkaline Phosphatase 87 U/L (38-126); Amylase 73 U/L (30-110); Anion Gap 6 mmol/L; Blood Urea Nitrogen 5 mg/dL (7-17); Calcium 8.4 mg/dL (8.4-10.2); Carbon Dioxide 22 mmol/L (22-30); Chloride 109 mmol/L (98-107); Glucose 80 mg/dL (74-99); Lipase 45 U/L (23-300); Non-African American GFR(CKD) >90 (>60 ml/min/1.73 sqM); Potassium 4.1 mmol/L (3.5-5.1); Sodium 137 mmol/L (137-145); Total Bilirubin 0.2 mg/dL (0.2-1.3); Total Protein 6.2 g/dL (6.3-8.2)
[2021-08-30] MEDS ORDERED: PROCHLORPERAZINE INJ 10 MG/2 ML VIAL IVP STA (21:37)
[2021-08-30 21:58] LABS: Anisocytosis Slight; Basophils % (A) 0 %; Eosinophils # (A) 0.1 k/uL (0-0.7); Eosinophils % (A) 1 %; HCT 31.9 % (34.0-46.0); HGB 9.9 gm/dL (11.4-16.0); Hypochromasia Marked; Lymphocytes # (A) 5.6 k/uL (1.0-4.8); Lymphocytes % (A) 57 %; MCH 26.2 pg (25.0-35.0); MCHC 30.8 g/dL (31.0-37.0); MCV 84.8 fL (80.0-100.0); Mean Platelet Volume 7.2; Monocytes # (A) 0.5 k/uL (0-1.0); Monocytes % (A) 5 %; Neutrophils # (A) 3.3 k/uL (1.3-7.7); Neutrophils % (A) 33 %; Platelet Count 507 k/uL (150-450); RBC 3.76 m/uL (3.80-5.40); RDW 19.2 % (11.5-15.5); WBC 9.8 k/uL (3.8-10.6)
--- NOTE | 2021-08-30 22:33 | US ---
EXAMINATION TYPE: US abdomen limited DATE OF EXAM: 08/30/2021 COMPARISON: CT CLINICAL HISTORY: mid abdominal pain. Generalized ABD pain, GB removed EXAM MEASUREMENTS: Liver Length: 17.0 cm CBD: 0.5 cm Right Kidney: 11.3 x 5.0 x 5.2 cm Pancreas: wnl, tail obscured by overlying bowel gas Liver: Heterogeneous Gallbladder: Surgically absent Evidence for sonographic Harris's sign: No CBD: wnl Right Kidney: wnl, lower pole gassed out IMPRESSION: No focal liver defect. No dilated ducts. Right kidney appears normal. No evidence of pancreatic mass.
[2021-08-30] MEDS ORDERED: ONDANSETRON 4 MG ODT STARTER PACK 2 TAB BTL PO STA (22:50)
[2021-08-30] MEDS ORDERED: ACET/COD 300 MG/30 MG STARTER PACK 6 TAB BTL PO STA (22:50)
== END 2021-08-30 23:20 | disposition home or self-care (01) ==
LOC: EC 15:50
DX: R10.31 Right lower quadrant pain (principal); J45.909 Unspecified asthma, uncomplicated; I10 Essential (primary) hypertension; E07.9 Disorder of thyroid, unspecified; Z79.1 Long term (current) use of non-steroidal anti-inflammatories (NSAID); F17.200 Nicotine dependence, unspecified, uncomplicated; Z88.3 Allergy status to other anti-infective agents; Z88.8 Allergy status to other drugs, medicaments and biological substances; Z88.1 Allergy status to other antibiotic agents; Z88.5 Allergy status to narcotic agent; Z88.6 Allergy status to analgesic agent; Z88.0 Allergy status to penicillin
CPT/HCPCS: 36415; 80053; 82150; 83690; 85025; 81003; 76705; 99284; 96374; 96375; 96376; 96361; J2270; J1200; J0780; J2765; S0119; J1170

== ENCOUNTER 2021-09-05 14:05 | Emergency (ER) | payer OTHER ==
--- NOTE | 2021-09-05 14:16 | ED ---
General Adult HPI - General Stated complaint: ankle injury Time Seen by Provider: 09/05/21 14:08 Source: patient, EMS, RN notes reviewed Mode of arrival: EMS Limitations: no limitations - History of Present Illness Initial comments: Patient is a pleasant 36-year-old female presenting to the emergency Department with right leg and ankle pain. Patient had a seizure 2 days ago. Patient does have history of previous fracture with repair of the tibia. Patient has had increase discomfort since that time. Discomfort increases with walking. Unclear exact mechanism of injury. Discomfort is right mid ibarra, medially to the ankle and somewhat posterior's well. Patient does hear some snaping when she walks. - Related Data Home Medications Medication Instructions Recorded Confirmed Levothyroxine Sodium [Synthroid] 137 mcg PO DAILY 08/07/18 06/23/21 Montelukast [Singulair] 10 mg PO DAILY 08/07/18 06/23/21 Balsalazide Disodium 2,250 mg PO TID 11/16/19 06/23/21 Lisinopril-Hctz 20-25 mg 2 tab PO DAILY 11/16/19 06/23/21 [Zestoretic 20-25] Famotidine [Pepcid] 20 mg PO BID 03/06/20 06/23/21 Simvastatin [Zocor] 20 mg PO HS 03/06/20 06/23/21 Divalproex [Depakote] 1,500 mg PO TID 07/14/20 06/23/21 Loratadine [Claritin] 10 mg PO DAILY 07/14/20 06/23/21 Gabapentin [Neurontin] 1,200 mg PO TID 10/01/20 06/23/21 Butalb/APAP/Caff 50-325-40Mg 1 tab PO TID PRN 11/18/20 06/23/21 [Fioricet 50-325-40] ondansetron HCL [Zofran] 8 mg PO Q12H PRN 11/18/20 06/23/21 Folic Acid 2 mg PO DAILY 02/06/21 06/23/21 PARoxetine HCL [Paxil] 60 mg PO DAILY 02/06/21 06/23/21 QUEtiapine FUMARATE [SEROquel] 600 mg PO HS 02/06/21 06/23/21 Dicyclomine [Bentyl] 10 mg PO ACHS 06/23/21 06/23/21 Ferrous Sulfate [Iron (65 MG 325 mg PO BID 06/23/21 06/23/21 Elemental)] Pantoprazole [Protonix] 40 mg PO DAILY 06/23/21 06/23/21 clonazePAM [KlonoPIN] 1 mg PO TID 06/23/21 06/23/21 oxyCODONE-APAP 10-325MG [Percocet 1 tab PO Q8HR PRN 06/23/21 06/23/21 10-325 mg] Previous Rx's Medication Instructions Recorded haloperidoL [Haldol] 1 mg PO BID #4 tab 06/04/20 Levofloxacin [Levaquin] 750 mg PO DAILY 4 Days #4 tab 06/24/21 Allergies Allergy/AdvReac Type Severity Reaction Status Date / Time dicyclomine [From Bentyl] Allergy Severe Hallucinati Verified 06/23/21 15:44 ons granisetron HCl [From Kytril] Allergy Severe Anaphylaxis Verified 06/23/21 15:44 azithromycin Allergy Rash/Hives Verified 06/23/21 15:44 baclofen Allergy Rash/Hives Verified 06/23/21 15:44 butorphanol [From Stadol] Allergy Rash/Hives Verified 06/23/21 15:44 butorphanol tartrate Allergy Rash/Hives Verified 06/23/21 15:44 [From Stadol] Cephalosporins Allergy Rash/Hives Verified 06/23/21 15:44 cyclobenzaprine Allergy Unknown Verified 06/23/21 15:44 [From Flexeril] dicloxacillin Allergy Rash/Hives Verified 06/23/21 15:44 granisetron [From Kytril] Allergy Anaphylaxis Verified 06/23/21 15:44 ketorolac Allergy Rash/Hives Verified 06/23/21 15:44 ketorolac tromethamine Allergy Rash/Hives Verified 06/23/21 15:44 [From Toradol] meperidine Allergy Unknown Verified 06/23/21 15:44 meperidine HCl [From Demerol] Allergy Swelling Verified 06/23/21 15:44 pregabalin [From Lyrica] Allergy Unknown Verified 06/23/21 15:44 risperidone [From Risperdal] Allergy Dyspnea Verified 06/23/21 15:44 sulfamethoxazole Allergy Rash/Hives Verified 06/23/21 15:44 [From Bactrim] trimethoprim [From Bactrim] Allergy Rash/Hives Verified 06/23/21 15:44 methylprednisolone AdvReac Vomiting & Verified 06/23/21 15:44 [From Medrol] Headache Review of Systems ROS Statement: Those systems with pertinent positive or pertinent negative responses have been documented in the HPI. ROS Other: All systems not noted in ROS Statement are negative. Constitutional: Denies: fever Eyes: Denies: eye pain ENT: Denies: ear pain Respiratory: Denies: cough Cardiovascular: Denies: chest pain Endocrine: Denies: fatigue Gastrointestinal: Denies: abdominal pain Genitourinary: Denies: dysuria Musculoskeletal: Reports: as per HPI Skin: Denies: rash Neurological: Denies: weakness Past Medical History Past Medical History: Asthma, Fibromyalgia, GERD/Reflux, Hypertension, Neurologic Disorder, Seizure Disorder, Thyroid Disorder Additional Past Medical History / Comment(s): crohns disease, diverticulosis, ibs, chronic colitis.,carpal tunnel solo wrists, anemia, chronic back pain , migraines, pinched nerves, Hx fall in June and broke old fracture above right ankle- wears boot., frequent nausea, last seizure 1 month ago., hx pancreatitis. History of Any Multi-Drug Resistant Organisms: None Reported Past Surgical History: Adenoidectomy, Appendectomy, Cholecystectomy, Orthopedic Surgery, Tonsillectomy Additional Past Surgical History / Comment(s): EGD/colonoscopy, right ankle surgery, broken nose surgery Past Anesthesia/Blood Transfusion Reactions: Previous Problems w/ Anesthesia, Postoperative Nausea & Vomiting (PONV) Additional Past Anesthesia/Blood Transfusion Reaction / Comment(s): hallucinations x1 Past Psychological History: Anxiety, Bipolar, Depression, PTSD Smoking Status: Current every day smoker Past Alcohol Use History: None Reported Past Drug Use History: None Reported - Past Family History Father Family Medical History: Diabetes Mellitus, Hyperlipidemia Mother Family Medical History: Cancer, CVA/TIA, Deep Vein Thrombosis (DVT), Osteoarthritis (OA), Thyroid Disorder Additional Family Medical History / Comment(s): Extensive tattoos throughout body General Exam Limitations: no limitations General appearance: alert, in no apparent distress Head exam: Present: atraumatic Eye exam: Present: normal appearance Neck exam: Present: normal inspection. Absent: tenderness Respiratory exam: Present: normal lung sounds bilaterally Cardiovascular Exam: Present: regular rate, normal rhythm Expanded Peripheral pulses: 2+: Posterior Tibialis (R), Dorsalis Pedis (R) GI/Abdominal exam: Present: soft. Absent: tenderness Extremities exam: Present: tenderness (Moderate tenderness right mid tibia. Mild tenderness ankle), normal capillary refill, other (Distal extremity is neurovascularly intact. Barber test with intact Achilles). Absent: pedal edema, calf tenderness Neurological exam: Present: alert Psychiatric exam: Present: normal affect, normal mood Skin exam: Present: normal color Course Vital Signs 09/05/21 14:28 Temperature 98.4 F Pulse Rate 89 Respiratory 18 Rate Blood Pressure 134/89 O2 Sat by Pulse 98 Oximetry Medical Decision Making - Medical Decision Making Patient reevaluated and updated. Patient requests pain medication and states at the hospital she receives Dilaudid. - Radiology Data Radiology results: image reviewed (Right lower leg and ankle x-ray reveal no acute abnormality. Old injury.) Disposition Clinical Impression: Leg pain Disposition: HOME SELF-CARE Condition: Stable Instructions (If sedation given, give patient instructions): Leg Pain (ED) Additional Instructions: Please do follow-up with your orthopedic doctor in the next couple days for recheck. Ice to affected area. Avoid weightbearing, use her crutches. Return for increased pain, swelling, worsening or change in symptoms or other concerns. Is patient prescribed a controlled substance at d/c from ED?: No Referrals: Joan Meeks MD [Primary Care Provider] - 1-2 days Time of Disposition: 14:51
[2021-09-05 14:29] VITALS: RESP 18
--- NOTE | 2021-09-05 14:45 | XR ---
Right leg and right ankle HISTORY: Trauma and pain 3 views of the right ankle, frontal lateral views of right leg submitted on a total of 4 additional i mages Correlation to prior right leg dated 11/18/2020 Patient is status post open reduction internal fixation, postop changes in the distal right leg are a gain noted, there has been some healing of patient's distal right tibial fracture. There is a persist ent cortical regularity present at the site of patient's prior fracture, there is sclerosis present. Soft tissue swelling is present. IMPRESSION: No acute fracture or dislocation. Evidence of remote trauma
[2021-09-05] MEDS ORDERED: HYDROmorphone 0.5 MG/0.5 ML SYRINGE IM STA (14:49)
[2021-09-05 15:04] VITALS: BP 118/90; PULSE 98; TEMP 99.3
== END 2021-09-05 15:20 | disposition home or self-care (01) ==
LOC: EC 14:05
DX: M25.571 Pain in right ankle and joints of right foot (principal); J45.909 Unspecified asthma, uncomplicated; K21.9 Gastro-esophageal reflux disease without esophagitis; Z79.83 Long term (current) use of bisphosphonates; I10 Essential (primary) hypertension; E07.9 Disorder of thyroid, unspecified; F17.200 Nicotine dependence, unspecified, uncomplicated; Z88.1 Allergy status to other antibiotic agents; Z88.3 Allergy status to other anti-infective agents; Z88.8 Allergy status to other drugs, medicaments and biological substances; Z88.5 Allergy status to narcotic agent; Z88.2 Allergy status to sulfonamides
CPT/HCPCS: 73590; 73610; 99283; 96372; L4350; J1170

== ENCOUNTER 2021-10-01 19:18 | Emergency (ER) | payer OTHER ==
[2021-10-01 19:30] VITALS: RESP 16; TEMP 98
[2021-10-01] MEDS ORDERED: PROPARACAINE 0.5% OPHTH DROPS 15 ML BTL LEFT EYE STA (19:45)
--- NOTE | 2021-10-01 19:46 | ED ---
Eye Problem HPI - General Chief complaint: Eye Problems Stated complaint: Eye Pain Time Seen by Provider: 10/01/21 19:25 Source: patient, EMS Mode of arrival: EMS Limitations: no limitations - History of Present Illness Initial comments: Stacey is a 36-year-old female presents the ER today with complaint of left- sided eye pain and blurred vision. Patient reports that she has recurrent styes, yesterday she bought some [id number] stye ointment, she put in her left eye despite having her contacts in place. She had pain at that time, did not remove her contacts did not attempt to rinse out her IV. She hasn't been able to sleep or get comfortable since that time. She reports that her left eye vision is blurry and this is causing a headache. - Related Data Home Medications Medication Instructions Recorded Confirmed Levothyroxine Sodium [Synthroid] 137 mcg PO DAILY 08/07/18 06/23/21 Montelukast [Singulair] 10 mg PO DAILY 08/07/18 06/23/21 Balsalazide Disodium 2,250 mg PO TID 11/16/19 06/23/21 Lisinopril-Hctz 20-25 mg 2 tab PO DAILY 11/16/19 06/23/21 [Zestoretic 20-25] Famotidine [Pepcid] 20 mg PO BID 03/06/20 06/23/21 Simvastatin [Zocor] 20 mg PO HS 03/06/20 06/23/21 Divalproex [Depakote] 1,500 mg PO TID 07/14/20 06/23/21 Loratadine [Claritin] 10 mg PO DAILY 07/14/20 06/23/21 Gabapentin [Neurontin] 1,200 mg PO TID 10/01/20 06/23/21 Butalb/APAP/Caff 50-325-40Mg 1 tab PO TID PRN 11/18/20 06/23/21 [Fioricet 50-325-40] ondansetron HCL [Zofran] 8 mg PO Q12H PRN 11/18/20 06/23/21 Folic Acid 2 mg PO DAILY 02/06/21 06/23/21 PARoxetine HCL [Paxil] 60 mg PO DAILY 02/06/21 06/23/21 QUEtiapine FUMARATE [SEROquel] 600 mg PO HS 02/06/21 06/23/21 Dicyclomine [Bentyl] 10 mg PO ACHS 06/23/21 06/23/21 Ferrous Sulfate [Iron (65 MG 325 mg PO BID 06/23/21 06/23/21 Elemental)] Pantoprazole [Protonix] 40 mg PO DAILY 06/23/21 06/23/21 clonazePAM [KlonoPIN] 1 mg PO TID 06/23/21 06/23/21 oxyCODONE-APAP 10-325MG [Percocet 1 tab PO Q8HR PRN 06/23/21 06/23/21 10-325 mg] Previous Rx's Medication Instructions Recorded haloperidoL [Haldol] 1 mg PO BID #4 tab 06/04/20 Levofloxacin [Levaquin] 750 mg PO DAILY 4 Days #4 tab 06/24/21 Allergies Allergy/AdvReac Type Severity Reaction Status Date / Time dicyclomine [From Bentyl] Allergy Severe Hallucinati Verified 06/23/21 15:44 ons granisetron HCl [From Kytril] Allergy Severe Anaphylaxis Verified 06/23/21 15:44 azithromycin Allergy Rash/Hives Verified 06/23/21 15:44 baclofen Allergy Rash/Hives Verified 06/23/21 15:44 butorphanol [From Stadol] Allergy Rash/Hives Verified 06/23/21 15:44 butorphanol tartrate Allergy Rash/Hives Verified 06/23/21 15:44 [From Stadol] Cephalosporins Allergy Rash/Hives Verified 06/23/21 15:44 cyclobenzaprine Allergy Unknown Verified 06/23/21 15:44 [From Flexeril] dicloxacillin Allergy Rash/Hives Verified 06/23/21 15:44 granisetron [From Kytril] Allergy Anaphylaxis Verified 06/23/21 15:44 ketorolac Allergy Rash/Hives Verified 06/23/21 15:44 ketorolac tromethamine Allergy Rash/Hives Verified 06/23/21 15:44 [From Toradol] meperidine Allergy Unknown Verified 06/23/21 15:44 meperidine HCl [From Demerol] Allergy Swelling Verified 06/23/21 15:44 pregabalin [From Lyrica] Allergy Unknown Verified 06/23/21 15:44 risperidone [From Risperdal] Allergy Dyspnea Verified 06/23/21 15:44 sulfamethoxazole Allergy Rash/Hives Verified 06/23/21 15:44 [From Bactrim] trimethoprim [From Bactrim] Allergy Rash/Hives Verified 06/23/21 15:44 methylprednisolone AdvReac Vomiting & Verified 06/23/21 15:44 [From Medrol] Headache Review of Systems ROS Statement: Those systems with pertinent positive or pertinent negative responses have been documented in the HPI. ROS Other: All systems not noted in ROS Statement are negative. Past Medical History Past Medical History: Asthma, Fibromyalgia, GERD/Reflux, Hypertension, Gricelda rologic Disorder, Seizure Disorder, Thyroid Disorder Additional Past Medical History / Comment(s): crohns disease, diverticulosis, ibs, chronic colitis.,carpal tunnel solo wrists, anemia, chronic back pain , migraines, pinched nerves, Hx fall in June and broke old fracture above right ankle- wears boot., frequent nausea, last seizure 1 month ago., hx pancreatitis. History of Any Multi-Drug Resistant Organisms: None Reported Past Surgical History: Adenoidectomy, Appendectomy, Cholecystectomy, Orthopedic Surgery, Tonsillectomy Additional Past Surgical History / Comment(s): EGD/colonoscopy, right ankle surgery, broken nose surgery Past Anesthesia/Blood Transfusion Reactions: Previous Problems w/ Anesthesia, Postoperative Nausea & Vomiting (PONV) Additional Past Anesthesia/Blood Transfusion Reaction / Comment(s): hallucinations x1 Past Psychological History: Anxiety, Bipolar, Depression, PTSD Smoking Status: Current every day smoker Past Alcohol Use History: None Reported Past Drug Use History: None Reported - Past Family History Father Family Medical History: Diabetes Mellitus, Hyperlipidemia Mother Family Medical History: Cancer, CVA/TIA, Deep Vein Thrombosis (DVT), Osteoarthritis (OA), Thyroid Disorder Additional Family Medical History / Comment(s): Extensive tattoos throughout body General Exam - General Exam Comments Initial Comments: Physical Exam GENERAL: Patient is well-developed and well-nourished. Patient is nontoxic and well-hydrated and is in no distress. HENT: Normocephalic, Atraumatic. EYES: Contacts in place, left contact is cloudy with ointment smeared over it, pupil is 5mm reactive PERRL, EOMI Contact removed, no corneal clouding, pupil reactive Pressure left eye measured with i-care tonopen 8,8,9 Fluorscene testing reveals no evidence of corneal abrasion or injury PULMONARY: Unlabored respirations. CARDIOVASCULAR: RRR Warm and well perfused extremities ABDOMEN: Non-distended SKIN: No rashes or bruising : Deferred NEUROLOGIC: Alert and oriented Normal speech MUSCULOSKELETAL: Moving all extremities with no apparent injury PSYCHIATRIC: No SI/HI Limitations: no limitations Course Vital Signs 10/01/21 19:24 Temperature 98.0 F Pulse Rate 87 Respiratory 16 Rate Blood Pressure 133/105 O2 Sat by Pulse 98 Oximetry Medical Decision Making - Medical Decision Making Patient was seen and evaluated, patient has an ointment over her contact and is complaining of pain in the eye, patient reports the pain was too severe for her to attempt to remove the contact despite having put the ointment and last night. Patient's eye was numbed with proparacaine and the contact was removed. There is no cloudiness of the cornea her area of abnormality of the eye No evidence of increased intraocular pressure or corneal abrasion, patient was noted be sleeping comfortably in the ER. I advised the patient she should follow up with ophthalmology due to her reported recurrent eye infections. 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
[2021-10-01] MEDS ORDERED: FLUORESCEIN STRIPS 1 MG STRIP LEFT EYE ONE (21:32)
[2021-10-01 22:50] VITALS: BP 129/88; PULSE 84
== END 2021-10-01 22:50 | disposition home or self-care (01) ==
LOC: EC 19:18
DX: H10.212 Acute toxic conjunctivitis, left eye (principal); J45.909 Unspecified asthma, uncomplicated; I10 Essential (primary) hypertension; K21.9 Gastro-esophageal reflux disease without esophagitis; E07.9 Disorder of thyroid, unspecified; F17.200 Nicotine dependence, unspecified, uncomplicated; Z79.899 Other long term (current) drug therapy; Z79.83 Long term (current) use of bisphosphonates; Z88.1 Allergy status to other antibiotic agents; Z88.5 Allergy status to narcotic agent; Z88.2 Allergy status to sulfonamides; Z88.6 Allergy status to analgesic agent; Z88.9 Allergy status to unspecified drugs, medicaments and biological substances

== ENCOUNTER 2021-10-13 14:32 | Emergency (ER) | payer OTHER ==
[2021-10-13] MEDS ORDERED: SODIUM CHLORIDE 0.9% 1,000 ML IV STA (15:27)
[2021-10-13] MEDS ORDERED: HALOPERIDOL LACTATE 5 MG/ML 1 ML VIAL IVP STA (15:34)
[2021-10-13] MEDS ORDERED: HYDROmorphone 0.5 MG/0.5 ML SYRINGE IVP STA (15:37)
[2021-10-13] MEDS ORDERED: FAMOTIDINE 20 MG/2 ML VIAL IV STA (15:37)
--- NOTE | 2021-10-13 15:43 | ED ---
Abdominal Pain HPI - General Chief Complaint: Abdominal Pain Stated Complaint: Abd pain Time Seen by Provider: 10/13/21 15:28 Source: patient, EMS, RN notes reviewed, old records reviewed Mode of arrival: EMS Limitations: no limitations - History of Present Illness Initial Comments: 36-year-old female presents alert and oriented and crying, stating she's had epigastric abdominal pain for 3 days that radiates into her back. She states that she does have history of Crohn's disease and just seen Dr. Benz last month. She states that she was put on Protonix and has been on it for a couple of months now. She denies any fevers states that today she had an episode of nausea vomiting from the pain. She has a history of appendectomy and cholecystectomy. MD Complaint: abdominal pain -: days(s) (3) Location: LUQ, RUQ, epigastric Radiation: back Severity scale (1-10): 10 Quality: sharp Consistency: constant Improves With: nothing Worsens With: movement, other (palpation) Associated Symptoms: nausea, vomiting Treatments Prior to Arrival: other (protonix and home meds) - Related Data Home Medications Medication Instructions Recorded Confirmed Levothyroxine Sodium [Synthroid] 137 mcg PO DAILY 08/07/18 06/23/21 Montelukast [Singulair] 10 mg PO DAILY 08/07/18 06/23/21 Balsalazide Disodium 2,250 mg PO TID 11/16/19 06/23/21 Lisinopril-Hctz 20-25 mg 2 tab PO DAILY 11/16/19 06/23/21 [Zestoretic 20-25] Famotidine [Pepcid] 20 mg PO BID 03/06/20 06/23/21 Simvastatin [Zocor] 20 mg PO HS 03/06/20 06/23/21 Divalproex [Depakote] 1,500 mg PO TID 07/14/20 06/23/21 Loratadine [Claritin] 10 mg PO DAILY 07/14/20 06/23/21 Gabapentin [Neurontin] 1,200 mg PO TID 10/01/20 06/23/21 Butalb/APAP/Caff 50-325-40Mg 1 tab PO TID PRN 11/18/20 06/23/21 [Fioricet 50-325-40] ondansetron HCL [Zofran] 8 mg PO Q12H PRN 11/18/20 06/23/21 Folic Acid 2 mg PO DAILY 02/06/21 06/23/21 PARoxetine HCL [Paxil] 60 mg PO DAILY 02/06/21 06/23/21 QUEtiapine FUMARATE [SEROquel] 600 mg PO HS 02/06/21 06/23/21 Dicyclomine [Bentyl] 10 mg PO ACHS 06/23/21 06/23/21 Ferrous Sulfate [Iron (65 MG 325 mg PO BID 06/23/21 06/23/21 Elemental)] Pantoprazole [Protonix] 40 mg PO DAILY 06/23/21 06/23/21 clonazePAM [KlonoPIN] 1 mg PO TID 06/23/21 06/23/21 oxyCODONE-APAP 10-325MG [Percocet 1 tab PO Q8HR PRN 06/23/21 06/23/21 10-325 mg] Previous Rx's Medication Instructions Recorded haloperidoL [Haldol] 1 mg PO BID #4 tab 06/04/20 Levofloxacin [Levaquin] 750 mg PO DAILY 4 Days #4 tab 06/24/21 Allergies Allergy/AdvReac Type Severity Reaction Status Date / Time dicyclomine [From Bentyl] Allergy Severe Hallucinati Verified 10/13/21 14:54 ons granisetron HCl [From Kytril] Allergy Severe Anaphylaxis Verified 10/13/21 14:54 azithromycin Allergy Rash/Hives Verified 10/13/21 14:54 baclofen Allergy Rash/Hives Verified 10/13/21 14:54 butorphanol [From Stadol] Allergy Rash/Hives Verified 10/13/21 14:54 butorphanol tartrate Allergy Rash/Hives Verified 10/13/21 14:54 [From Stadol] Cephalosporins Allergy Rash/Hives Verified 10/13/21 14:54 cyclobenzaprine Allergy Unknown Verified 10/13/21 14:54 [From Flexeril] dicloxacillin Allergy Rash/Hives Verified 10/13/21 14:54 granisetron [From Kytril] Allergy Anaphylaxis Verified 10/13/21 14:54 ketorolac Allergy Rash/Hives Verified 10/13/21 14:54 ketorolac tromethamine Allergy Rash/Hives Verified 10/13/21 14:54 [From Toradol] meperidine Allergy Unknown Verified 10/13/21 14:54 meperidine HCl [From Demerol] Allergy Swelling Verified 10/13/21 14:54 pregabalin [From Lyrica] Allergy Unknown Verified 10/13/21 14:54 risperidone [From Risperdal] Allergy Dyspnea Verified 10/13/21 14:54 sulfamethoxazole Allergy Rash/Hives Verified 10/13/21 14:54 [From Bactrim] trimethoprim [From Bactrim] Allergy Rash/Hives Verified 10/13/21 14:54 methylprednisolone AdvReac Vomiting & Verified 10/13/21 14:54 [From Medrol] Headache Review of Systems ROS Statement: Those systems with pertinent positive or pertinent negative responses have been documented in the HPI. ROS Other: All systems not noted in ROS Statement are negative. Past Medical History Past Medical History: Asthma, Fibromyalgia, GERD/Reflux, Hypertension, Neurologic Disorder, Seizure Disorder, Thyroid Disorder Additional Past Medical History / Comment(s): crohns disease, diverticulosis, ibs, chronic colitis.,carpal tunnel solo wrists, anemia, chronic back pain , migraines, pinched nerves, Hx fall in June and broke old fracture above right ankle- wears boot., frequent nausea, last seizure 1 month ago., hx pancreatitis. Scoliosis History of Any Multi-Drug Resistant Organisms: None Reported Past Surgical History: Adenoidectomy, Appendectomy, Cholecystectomy, Orthopedic Surgery, Tonsillectomy Additional Past Surgical History / Comment(s): EGD/colonoscopy, right ankle surgery, broken nose surgery Past Anesthesia/Blood Transfusion Reactions: Previous Problems w/ Anesthesia, Postoperative Nausea & Vomiting (PONV) Additional Past Anesthesia/Blood Transfusion Reaction / Comment(s): hallucinations x1 Past Psychological History: Anxiety, Bipolar, Depression, PTSD Smoking Status: Current every day smoker Past Alcohol Use History: None Reported Past Drug Use History: Marijuana - Past Family History Father Family Medical History: Diabetes Mellitus, Hyperlipidemia Mother Family Medical History: Cancer, CVA/TIA, Deep Vein Thrombosis (DVT), Osteoarthritis (OA), Thyroid Disorder Additional Family Medical History / Comment(s): Extensive tattoos throughout body General Exam Limitations: no limitations General appearance: alert, in no apparent distress Head exam: Present: atraumatic Eye exam: Absent: scleral icterus, conjunctival injection, periorbital swelling ENT exam: Present: mucous membranes moist Respiratory exam: Present: normal lung sounds bilaterally. Absent: respiratory distress, accessory muscle use Cardiovascular Exam: Present: tachycardia GI/Abdominal exam: Present: soft, tenderness (Generalized). Absent: guarding, rigid Extremities exam: Present: normal capillary refill. Absent: pedal edema Back exam: Present: normal inspection, full ROM. Absent: tenderness, CVA tenderness (R), CVA tenderness (L), rash noted Neurological exam: Present: alert, oriented X3 Psychiatric exam: Present: normal affect Skin exam: Present: warm, dry, normal color. Absent: cyanosis, diaphoretic, erythema, petechiae, pallor Course Vital Signs 10/13/21 10/13/21 10/13/21 14:50 16:05 17:00 Temperature 97.9 F Pulse Rate 101 H 83 86 Respiratory 18 18 18 Rate Blood Pressure 173/89 148/102 153/106 O2 Sat by Pulse 98 98 99 Oximetry 10/13/21 10/13/21 10/13/21 18:10 19:00 19:27 Temperature Pulse Rate 86 85 Respiratory 18 18 18 Rate Blood Pressure 151/104 187/98 150/101 O2 Sat by Pulse 98 98 98 Oximetry - Reevaluation(s) Reevaluation #1: 10/13/21 17:38 Patient states that her abdominal pain has resolved. She is feeling much better. She is requesting her medications of Depakote and Neurontin due at this time. Time: 17:38 Medical Decision Making - Medical Decision Making Hemoglobin and hematocrit are stable electrolytes are unremarkable. Urinalysis is clear. X-ray shows nonspecific gas distention of large bowel. No pneumoperitoneum, no abnormal calcifications present. EKG shows sinus rhythm no ST elevation or acute changes compared to old. Patient has a history of Crohn's disease, appendectomy and cholecystectomy. Patient was given IV fluids, Dilaudid for pain and Haldol and Benadryl for nausea. Patient's blood pressure was elevated during her ER visit, given hydralazine IV. She states that she does take her blood pressure medicine twice a day and is due for her next dose at 9 PM. She was instructed to follow-up with primary care doctor regarding her elevated blood pressure today. She states that her abdominal pain has improved and she is feeling better. Vital signs are stable. She was directed to follow up with Dr. Pan and her primary care doctor next week. Patient is agreeable to this plan of care. Case discussed with Dr. Ramsey. - Lab Data Result diagrams: 10/13/21 15:31 10/13/21 15:31 Lab Results 10/13/21 10/13/21 10/13/21 Range/Units 15:31 15:31 15:31 WBC 10.9 H (3.8-10.6) k/uL RBC 4.07 (3.80-5.40) m/uL Hgb 10.6 L (11.4-16.0) gm/dL Hct 33.6 L (34.0-46.0) % MCV 82.4 (80.0-100.0) fL MCH 26.1 (25.0-35.0) pg MCHC 31.7 (31.0-37.0) g/dL RDW 18.2 H (11.5-15.5) % Plt Count 597 H (150-450) k/uL MPV 7.4 Neutrophils % 38 % Lymphocytes % 48 % Monocytes % 8 % Eosinophils % 2 % Basophils % 1 % Neutrophils # 4.2 (1.3-7.7) k/uL Lymphocytes # 5.2 H (1.0-4.8) k/uL Monocytes # 0.8 (0-1.0) k/uL Eosinophils # 0.2 (0-0.7) k/uL Basophils # 0.1 (0-0.2) k/uL Manual Slide Review Performed Hypochromasia Moderate Anisocytosis Slight Microcytosis Slight Sodium 136 L (137-145) mmol/L Potassium 4.2 (3.5-5.1) mmol/L Chloride 108 H (98-107) mmol/L Carbon Dioxide 20 L (22-30) mmol/L Anion Gap 8 mmol/L BUN 9 (7-17) mg/dL Creatinine 0.76 (0.52-1.04) mg/dL Est GFR (CKD-EPI)AfAm >90 (>60 ml/min/1.73 sqM) Est GFR (CKD-EPI)NonAf >90 (>60 ml/min/1.73 sqM) Glucose 81 (74-99) mg/dL Plasma Lactic Acid Jeremy 1.1 (0.7-2.0) mmol/L Calcium 9.0 (8.4-10.2) mg/dL Total Bilirubin <0.1 L (0.2-1.3) mg/dL AST 20 (14-36) U/L ALT 17 (4-34) U/L Alkaline Phosphatase 117 (38-126) U/L Total Protein 6.8 (6.3-8.2) g/dL Albumin 3.8 (3.5-5.0) g/dL Amylase 125 H (30-110) U/L Lipase 93 (23-300) U/L Urine Color Urine Appearance (Clear) Urine pH (5.0-8.0) Ur Specific Dennis (1.001-1.035) Urine Protein (Negative) Urine Glucose (UA) (Negative) Urine Ketones (Negative) Urine Blood (Negative) Urine Nitrite (Negative) Urine Bilirubin (Negative) Urine Urobilinogen (<2.0) mg/dL Ur Leukocyte Esterase (Negative) 10/13/21 Range/Units 17:16 WBC (3.8-10.6) k/uL RBC (3.80-5.40) m/uL Hgb (11.4-16.0) gm/dL Hct (34.0-46.0) % MCV (80.0-100.0) fL MCH (25.0-35.0) pg MCHC (31.0-37.0) g/dL RDW (11.5-15.5) % Plt Count (150-450) k/uL MPV Neutrophils % % Lymphocytes % % Monocytes % % Eosinophils % % Basophils % % Neutrophils # (1.3-7.7) k/uL Lymphocytes # (1.0-4.8) k/uL Monocytes # (0-1.0) k/uL Eosinophils # (0-0.7) k/uL Basophils # (0-0.2) k/uL Manual Slide Review Hypochromasia Anisocytosis Microcytosis Sodium (137-145) mmol/L Potassium (3.5-5.1) mmol/L Chloride (98-107) mmol/L Carbon Dioxide (22-30) mmol/L Anion Gap mmol/L BUN (7-17) mg/dL Creatinine (0.52-1.04) mg/dL Est GFR (CKD-EPI)AfAm (>60 ml/min/1.73 sqM) Est GFR (CKD-EPI)NonAf (>60 ml/min/1.73 sqM) Glucose (74-99) mg/dL Plasma Lactic Acid Jeremy (0.7-2.0) mmol/L Calcium (8.4-10.2) mg/dL Total Bilirubin (0.2-1.3) mg/dL AST (14-36) U/L ALT (4-34) U/L Alkaline Phosphatase (38-126) U/L Total Protein (6.3-8.2) g/dL Albumin (3.5-5.0) g/dL Amylase (30-110) U/L Lipase (23-300) U/L Urine Color Colorless Urine Appearance Clear (Clear) Urine pH 6.0 (5.0-8.0) Ur Specific Dennis 1.004 (1.001-1.035) Urine Protein Negative (Negative) Urine Glucose (UA) Negative (Negative) Urine Ketones Negative (Negative) Urine Blood Negative (Negative) Urine Nitrite Negative (Negative) Urine Bilirubin Negative (Negative) Urine Urobilinogen <2.0 (<2.0) mg/dL Ur Leukocyte Esterase Negative (Negative) - EKG Data EKG shows normal: sinus rhythm (Ventricular rate 90, NM interval 0.154, QRS 0.91, QTC 0.453) Disposition Clinical Impression: Abdominal pain Disposition: HOME SELF-CARE Condition: Good Instructions (If sedation given, give patient instructions): Abdominal Pain (ED) Additional Instructions: Continue your previously prescribed medications. Follow up with your primary care doctor and managing director atlas this week. Return to the emergency room with any new or concerning symptoms including persistent nausea and vomiting, increased pain or fevers. Is patient prescribed a controlled substance at d/c from ED?: No Referrals: Joan Meeks MD [Primary Care Provider] - 1-2 days Time of Disposition: 18:09
[2021-10-13 15:55] VITALS: RESP 18; TEMP 97.9
[2021-10-13 16:09] LABS: ALT 17 U/L (4-34); AST 20 U/L (14-36); African American GFR (CKD) >90 (>60 ml/min/1.73 sqM); Albumin 3.8 g/dL (3.5-5.0); Alkaline Phosphatase 117 U/L (38-126); Amylase 125 U/L (30-110); Anion Gap 8 mmol/L; Blood Urea Nitrogen 9 mg/dL (7-17); Carbon Dioxide 20 mmol/L (22-30); Chloride 108 mmol/L (98-107); Glucose 81 mg/dL (74-99); Lipase 93 U/L (23-300); Non-African American GFR(CKD) >90 (>60 ml/min/1.73 sqM); Potassium 4.2 mmol/L (3.5-5.1); Sodium 136 mmol/L (137-145); Total Bilirubin <0.1 mg/dL (0.2-1.3); Total Protein 6.8 g/dL (6.3-8.2)
[2021-10-13 16:11] LABS: Anisocytosis Slight; Basophils # (A) 0.1 k/uL (0-0.2); Basophils % (A) 1 %; Eosinophils # (A) 0.2 k/uL (0-0.7); Eosinophils % (A) 2 %; HCT 33.6 % (34.0-46.0); HGB 10.6 gm/dL (11.4-16.0); Hypochromasia Moderate; Lymphocytes # (A) 5.2 k/uL (1.0-4.8); Lymphocytes % (A) 48 %; MCH 26.1 pg (25.0-35.0); MCHC 31.7 g/dL (31.0-37.0); MCV 82.4 fL (80.0-100.0); Mean Platelet Volume 7.4; Microcytosis Slight; Monocytes # (A) 0.8 k/uL (0-1.0); Monocytes % (A) 8 %; Neutrophils # (A) 4.2 k/uL (1.3-7.7); Neutrophils % (A) 38 %; Platelet Count 597 k/uL (150-450); RBC 4.07 m/uL (3.80-5.40); RDW 18.2 % (11.5-15.5); WBC 10.9 k/uL (3.8-10.6)
[2021-10-13] MEDS ORDERED: diphenhydrAMINE 50 MG/ML 1 ML VIAL IVP STA (16:29)
--- NOTE | 2021-10-13 16:53 | XR ---
EXAMINATION TYPE: XR KUB DATE OF EXAM: 10/13/2021 4:15 PM INDICATION: Patient age:Female; 36 years old; Reason for study: abdominal pain; COMPARISON: 02/06/2021. TECHNIQUE: One radiographic view of the abdomen was obtained. FINDINGS: Gaseous distention of colon in the mid abdomen. The bowel gas pattern is otherwise nonspeci fic without dilated loops of small or large bowel. There is no evidence for organomegaly or pneumoper itoneum. The osseous structures are intact. No abnormal calcifications are present. IMPRESSION: Nonspecific gaseous distention of loops of large bowel.
[2021-10-13 17:33] LABS: Appearance,Urine Clear (Clear); Bilirubin,Urine Negative (Negative); Blood,Urine Negative (Negative); Color,Urine Colorless; Glucose,Urine (UA) Negative (Negative); Ketones,Urine Negative (Negative); Leukocyte Esterase,Urine Negative (Negative); Nitrite,Urine Negative (Negative); Protein,Urine Negative (Negative); Specific Gravity,Urine 1.004 (1.001-1.035); Urobilinogen,Urine <2.0 mg/dL (<2.0)
[2021-10-13] MEDS ORDERED: GABAPENTIN 400 MG CAP PO STA (17:36)
[2021-10-13] MEDS ORDERED: DIVALPROEX 500 MG TABLET.DR PO STA ×2 (17:36)
[2021-10-13] MEDS ORDERED: hydrALAZINE HCL 20 MG/ML 1 ML VIAL IVP STA (18:36)
[2021-10-13 19:29] VITALS: BP 150/101; PULSE 85
== END 2021-10-13 19:29 | disposition home or self-care (01) ==
LOC: EC 14:32
DX: R10.13 Epigastric pain (principal); J45.909 Unspecified asthma, uncomplicated; I10 Essential (primary) hypertension; K21.9 Gastro-esophageal reflux disease without esophagitis; Z79.83 Long term (current) use of bisphosphonates; E07.9 Disorder of thyroid, unspecified; Z79.899 Other long term (current) drug therapy; F17.200 Nicotine dependence, unspecified, uncomplicated; Z88.1 Allergy status to other antibiotic agents; Z88.3 Allergy status to other anti-infective agents; Z88.8 Allergy status to other drugs, medicaments and biological substances
CPT/HCPCS: 36415; 93005; 80053; 82150; 83605; 83690; 85025; 81003; 74018; 99284; 96374; 96375; 96361; J0360; J1200; J1630; J1170

== ENCOUNTER 2021-10-14 17:46 | Emergency (ER) | payer OTHER ==
[2021-10-14 18:46] VITALS: BP 151/102; PULSE 105; RESP 18; TEMP 98.3
[2021-10-14 19:15] LABS: Anisocytosis Slight; Basophils # (A) 0.1 k/uL (0-0.2); Basophils % (A) 1 %; Eosinophils # (A) 0.3 k/uL (0-0.7); Eosinophils % (A) 2 %; HCT 31.3 % (34.0-46.0); HGB 9.9 gm/dL (11.4-16.0); Hypochromasia Marked; Lymphocytes # (A) 4.5 k/uL (1.0-4.8); Lymphocytes % (A) 37 %; MCH 26.5 pg (25.0-35.0); MCHC 31.6 g/dL (31.0-37.0); MCV 83.7 fL (80.0-100.0); Mean Platelet Volume 7.5; Monocytes # (A) 0.8 k/uL (0-1.0); Monocytes % (A) 6 %; Neutrophils # (A) 6.2 k/uL (1.3-7.7); Neutrophils % (A) 51 %; Platelet Count 692 k/uL (150-450); RBC 3.74 m/uL (3.80-5.40); RDW 18.1 % (11.5-15.5); WBC 12.2 k/uL (3.8-10.6)
[2021-10-14 19:18] LABS: ALT 16 U/L (4-34); AST 24 U/L (14-36); African American GFR (CKD) >90 (>60 ml/min/1.73 sqM); Albumin 3.6 g/dL (3.5-5.0); Alkaline Phosphatase 89 U/L (38-126); Anion Gap 7 mmol/L; Blood Urea Nitrogen 3 mg/dL (7-17); Calcium 8.3 mg/dL (8.4-10.2); Carbon Dioxide 20 mmol/L (22-30); Chloride 111 mmol/L (98-107); Glucose 83 mg/dL (74-99); Non-African American GFR(CKD) >90 (>60 ml/min/1.73 sqM); Potassium 4.6 mmol/L (3.5-5.1); Sodium 138 mmol/L (137-145); Total Bilirubin 0.4 mg/dL (0.2-1.3); Total Protein 6.8 g/dL (6.3-8.2)
[2021-10-14 19:23] LABS: Appearance,Urine Clear (Clear); Bilirubin,Urine Negative (Negative); Blood,Urine Negative (Negative); Color,Urine Colorless; Glucose,Urine (UA) Negative (Negative); Ketones,Urine Negative (Negative); Leukocyte Esterase,Urine Negative (Negative); Nitrite,Urine Negative (Negative); Protein,Urine Negative (Negative); Specific Gravity,Urine 1.003 (1.001-1.035); Urobilinogen,Urine <2.0 mg/dL (<2.0)
== END 2021-10-14 19:01 | disposition left against medical advice (07) ==
LOC: EC 17:46
DX: Z53.21 Procedure and treatment not carried out due to patient leaving prior to being seen by health care provider (principal)
CPT/HCPCS: 36415; 80053; 81003; 85025; 99499

== ENCOUNTER 2021-12-05 12:32 | Emergency (ER) | payer OTHER ==
[2021-12-05 12:36] VITALS: RESP 18
[2021-12-05] MEDS ORDERED: MORPHINE SULFATE 4 MG/ML SYRINGE IV STA ×3 (13:12→15:49)
[2021-12-05] MEDS ORDERED: METOCLOPRAMIDE 5 MG/ML 2 ML VIAL IVP STA (13:13)
[2021-12-05 13:26] LABS: Anisocytosis Moderate; HCT 33.8 % (34.0-46.0); HGB 10.3 gm/dL (11.4-16.0); Hypochromasia Marked; MCH 26.7 pg (25.0-35.0); MCHC 30.5 g/dL (31.0-37.0); MCV 87.3 fL (80.0-100.0); Mean Platelet Volume 7.2; Platelet Count 500 k/uL (150-450); RBC 3.87 m/uL (3.80-5.40); WBC 7.3 k/uL (3.8-10.6)
[2021-12-05 13:31] LABS: ALT 14 U/L (4-34); AST 16 U/L (14-36); African American GFR (CKD) >90 (>60 ml/min/1.73 sqM); Albumin 3.2 g/dL (3.5-5.0); Alkaline Phosphatase 125 U/L (38-126); Amylase 63 U/L (30-110); Anion Gap 11 mmol/L; Blood Urea Nitrogen 8 mg/dL (7-17); C Reactive Protein <0.5 mg/dL (<1.0); Calcium 8.8 mg/dL (8.4-10.2); Carbon Dioxide 20 mmol/L (22-30); Chloride 106 mmol/L (98-107); Glucose 115 mg/dL (74-99); Lipase 28 U/L (23-300); Non-African American GFR(CKD) >90 (>60 ml/min/1.73 sqM); Potassium 4.1 mmol/L (3.5-5.1); Sodium 137 mmol/L (137-145); Total Bilirubin <0.1 mg/dL (0.2-1.3); Total Protein 5.9 g/dL (6.3-8.2)
--- NOTE | 2021-12-05 13:34 | ED ---
Abdominal Pain HPI - General Chief Complaint: Abdominal Pain Stated Complaint: Abd Pain Time Seen by Provider: 12/05/21 12:41 Source: patient Mode of arrival: EMS Limitations: no limitations - History of Present Illness Initial Comments: This patient is a 36-year-old woman with history of Crohn's colitis who presents with right-sided abdominal pain. Patient states that pain is been increasing over the past couple of days much worse today. She does take Percocet for chronic abdominal pain and states that this is only giving some mild relief of her symptoms. She states that she has had change in her bowel movements. She usually has diarrhea related to the Crohn's but states she currently is having constipation. No change in urination. No fever or chills. She has had some nausea associated with abdominal pain but no vomiting. No chest symptoms. No radiation to the legs. MD Complaint: abdominal pain -: days(s) Location: RUQ, RLQ Radiation: none Migration to: no migration Severity: severe Quality: aching, sharp Consistency: constant Improves With: nothing Worsens With: nothing Associated Symptoms: nausea, constipation - Related Data Home Medications Medication Instructions Recorded Confirmed Levothyroxine Sodium [Synthroid] 137 mcg PO DAILY 08/07/18 06/23/21 Montelukast [Singulair] 10 mg PO DAILY 08/07/18 06/23/21 Balsalazide Disodium 2,250 mg PO TID 11/16/19 06/23/21 Lisinopril-Hctz 20-25 mg 2 tab PO DAILY 11/16/19 06/23/21 [Zestoretic 20-25] Famotidine [Pepcid] 20 mg PO BID 03/06/20 06/23/21 Simvastatin [Zocor] 20 mg PO HS 03/06/20 06/23/21 Divalproex [Depakote] 1,500 mg PO TID 07/14/20 06/23/21 Loratadine [Claritin] 10 mg PO DAILY 07/14/20 06/23/21 Gabapentin [Neurontin] 1,200 mg PO TID 10/01/20 06/23/21 Butalb/APAP/Caff 50-325-40Mg 1 tab PO TID PRN 11/18/20 06/23/21 [Fioricet 50-325-40] ondansetron HCL [Zofran] 8 mg PO Q12H PRN 11/18/20 06/23/21 Folic Acid 2 mg PO DAILY 02/06/21 06/23/21 PARoxetine HCL [Paxil] 60 mg PO DAILY 02/06/21 06/23/21 QUEtiapine FUMARATE [SEROquel] 600 mg PO HS 02/06/21 06/23/21 Dicyclomine [Bentyl] 10 mg PO ACHS 06/23/21 06/23/21 Ferrous Sulfate [Iron (65 MG 325 mg PO BID 06/23/21 06/23/21 Elemental)] Pantoprazole [Protonix] 40 mg PO DAILY 06/23/21 06/23/21 clonazePAM [KlonoPIN] 1 mg PO TID 06/23/21 06/23/21 oxyCODONE-APAP 10-325MG [Percocet 1 tab PO Q8HR PRN 06/23/21 06/23/21 10-325 mg] Previous Rx's Medication Instructions Recorded haloperidoL [Haldol] 1 mg PO BID #4 tab 06/04/20 Levofloxacin [Levaquin] 750 mg PO DAILY 4 Days #4 tab 06/24/21 Allergies Allergy/AdvReac Type Severity Reaction Status Date / Time dicyclomine [From Bentyl] Allergy Severe Hallucinati Verified 12/05/21 12:36 ons granisetron HCl [From Kytril] Allergy Severe Anaphylaxis Verified 12/05/21 12:36 azithromycin Allergy Rash/Hives Verified 12/05/21 12:36 baclofen Allergy Rash/Hives Verified 12/05/21 12:36 butorphanol [From Stadol] Allergy Rash/Hives Verified 12/05/21 12:36 butorphanol tartrate Allergy Rash/Hives Verified 12/05/21 12:36 [From Stadol] Cephalosporins Allergy Rash/Hives Verified 12/05/21 12:36 cyclobenzaprine Allergy Unknown Verified 12/05/21 12:36 [From Flexeril] dicloxacillin Allergy Rash/Hives Verified 12/05/21 12:36 granisetron [From Kytril] Allergy Anaphylaxis Verified 12/05/21 12:36 ketorolac Allergy Rash/Hives Verified 12/05/21 12:36 ketorolac tromethamine Allergy Rash/Hives Verified 12/05/21 12:36 [From Toradol] meperidine Allergy Unknown Verified 12/05/21 12:36 meperidine HCl [From Demerol] Allergy Swelling Verified 12/05/21 12:36 pregabalin [From Lyrica] Allergy Unknown Verified 12/05/21 12:36 risperidone [From Risperdal] Allergy Dyspnea Verified 12/05/21 12:36 sulfamethoxazole Allergy Rash/Hives Verified 12/05/21 12:36 [From Bactrim] trimethoprim [From Bactrim] Allergy Rash/Hives Verified 12/05/21 12:36 methylprednisolone AdvReac Vomiting & Verified 12/05/21 12:36 [From Medrol] Headache Review of Systems ROS Statement: Those systems with pertinent positive or pertinent negative responses have been documented in the HPI. ROS Other: All systems not noted in ROS Statement are negative. Constitutional: Denies: fever, chills Respiratory: Denies: cough, dyspnea Cardiovascular: Denies: chest pain, palpitations Gastrointestinal: Reports: abdominal pain, nausea, constipation. Denies: vomiting, diarrhea, melena, hematochezia Genitourinary: Denies: dysuria, hematuria Musculoskeletal: Denies: back pain Skin: Denies: rash Neurological: Denies: headache Past Medical History Past Medical History: Asthma, Fibromyalgia, GERD/Reflux, Hypertension, Neurologic Disorder, Seizure Disorder, Thyroid Disorder Additional Past Medical History / Comment(s): crohns disease, diverticulosis, ibs, chronic colitis.,carpal tunnel solo wrists, anemia, chronic back pain , migraines, pinched nerves, Hx fall in June and broke old fracture above right ankle- wears boot., frequent nausea, last seizure 1 month ago., hx pancreatitis. Scoliosis History of Any Multi-Drug Resistant Organisms: MRSA Past Surgical History: Adenoidectomy, Appendectomy, Cholecystectomy, Orthopedic Surgery, Tonsillectomy Additional Past Surgical History / Comment(s): EGD/colonoscopy, right ankle surgery, broken nose surgery Past Anesthesia/Blood Transfusion Reactions: Previous Problems w/ Anesthesia, Postoperative Nausea & Vomiting (PONV) Additional Past Anesthesia/Blood Transfusion Reaction / Comment(s): hallu humberto x1 Past Psychological History: Anxiety, Bipolar, Depression, PTSD Smoking Status: Current every day smoker Past Alcohol Use History: None Reported Past Drug Use History: Marijuana - Past Family History Father Family Medical History: Diabetes Mellitus, Hyperlipidemia Mother Family Medical History: Cancer, CVA/TIA, Deep Vein Thrombosis (DVT), Osteoarthritis (OA), Thyroid Disorder Additional Family Medical History / Comment(s): Extensive tattoos throughout body General Exam General appearance: alert, in no apparent distress Head exam: Present: atraumatic, normocephalic Eye exam: Present: normal appearance. Absent: scleral icterus, conjunctival injection Neck exam: Present: normal inspection Respiratory exam: Present: normal lung sounds bilaterally. Absent: respiratory distress, wheezes, rales, rhonchi, stridor Cardiovascular Exam: Present: regular rate, normal rhythm, normal heart sounds. Absent: systolic murmur, diastolic murmur, rubs, gallop GI/Abdominal exam: Present: soft. Absent: distended, tenderness, guarding, rebound, rigid, mass, pulsatile mass Extremities exam: Present: normal inspection, normal capillary refill. Absent: pedal edema, calf tenderness Back exam: Present: normal inspection. Absent: CVA tenderness (R), CVA tenderness (L) Neurological exam: Present: alert Skin exam: Present: warm, dry, intact, normal color. Absent: rash Course Vital Signs 12/05/21 12/05/21 12:34 14:50 Temperature 98.2 F Pulse Rate 97 104 H Respiratory 18 18 Rate Blood Pressure 116/77 143/95 O2 Sat by Pulse 98 99 Oximetry Medical Decision Making - Medical Decision Making Patient is 36-year-old woman with Crohn's disease experiencing right-sided a bdominal pain. Subsequent history revealed that the patient is out of the usual home pain medication. Workup is unremarkable in relation to the abdominal pain. She did have symptom relief with analgesic here and will be discharged to follow-up to have her home medications refilled. Discussed appropriate return parameters. - Lab Data Result diagrams: 12/05/21 13:08 12/05/21 13:08 Lab Results 12/05/21 12/05/21 12/05/21 Range/Units 13:08 13:08 13:08 WBC 7.3 (3.8-10.6) k/uL RBC 3.87 (3.80-5.40) m/uL Hgb 10.3 L (11.4-16.0) gm/dL Hct 33.8 L (34.0-46.0) % MCV 87.3 (80.0-100.0) fL MCH 26.7 (25.0-35.0) pg MCHC 30.5 L (31.0-37.0) g/dL RDW 20.0 H (11.5-15.5) % Plt Count 500 H (150-450) k/uL MPV 7.2 Neutrophils % (Manual) 36 % Lymphocytes % (Manual) 54 % Monocytes % (Manual) 7 % Eosinophils % (Manual) 3 % Neutrophils # (Manual) 2.63 (1.3-7.7) k/uL Lymphocytes # (Manual) 3.94 (1.0-4.8) k/uL Monocytes # (Manual) 0.51 (0-1.0) k/uL Eosinophils # (Manual) 0.22 (0-0.7) k/uL Nucleated RBCs 0 (0-0) /100 WBC Manual Slide Review Performed Hypochromasia Marked Anisocytosis Moderate Sodium (137-145) mmol/L Potassium (3.5-5.1) mmol/L Chloride (98-107) mmol/L Carbon Dioxide (22-30) mmol/L Anion Gap mmol/L BUN (7-17) mg/dL Creatinine (0.52-1.04) mg/dL Est GFR (CKD-EPI)AfAm (>60 ml/min/1.73 sqM) Est GFR (CKD-EPI)NonAf (>60 ml/min/1.73 sqM) Glucose (74-99) mg/dL Plasma Lactic Acid Jeremy (0.7-2.0) mmol/L Calcium (8.4-10.2) mg/dL Total Bilirubin (0.2-1.3) mg/dL AST (14-36) U/L ALT (4-34) U/L Alkaline Phosphatase (38-126) U/L C-Reactive Protein (<1.0) mg/dL Total Protein (6.3-8.2) g/dL Albumin (3.5-5.0) g/dL Amylase (30-110) U/L Lipase (23-300) U/L Urine Color Colorless Urine Appearance Cloudy H (Clear) Urine pH 7.0 (5.0-8.0) Ur Specific [place] 1.005 (1.001-1.035) Urine Protein Negative (Negative) Urine Glucose (UA) Negative (Negative) Urine Ketones Negative (Negative) Urine Blood Large H (Negative) Urine Nitrite Negative (Negative) Urine Bilirubin Negative (Negative) Urine Urobilinogen <2.0 (<2.0) mg/dL Ur Leukocyte Esterase Negative (Negative) Urine RBC 2 (0-5) /hpf Urine WBC 1 (0-5) /hpf Ur Squamous Epith Cells 6 H (0-4) /hpf Urine HCG, Qual Not Detected (Not Detectd) 12/05/21 12/05/21 Range/Units 13:08 13:08 WBC (3.8-10.6) k/uL RBC (3.80-5.40) m/uL Hgb (11.4-16.0) gm/dL Hct (34.0-46.0) % MCV (80.0-100.0) fL MCH (25.0-35.0) pg MCHC (31.0-37.0) g/dL RDW (11.5-15.5) % Plt Count (150-450) k/uL MPV Neutrophils % (Manual) % Lymphocytes % (Manual) % Monocytes % (Manual) % Eosinophils % (Manual) % Neutrophils # (Manual) (1.3-7.7) k/uL Lymphocytes # (Manual) (1.0-4.8) k/uL Monocytes # (Manual) (0-1.0) k/uL Eosinophils # (Manual) (0-0.7) k/uL Nucleated RBCs (0-0) /100 WBC Manual Slide Review Hypochromasia Anisocytosis Sodium 137 (137-145) mmol/L Potassium 4.1 (3.5-5.1) mmol/L Chloride 106 (98-107) mmol/L Carbon Dioxide 20 L (22-30) mmol/L Anion Gap 11 mmol/L BUN 8 (7-17) mg/dL Creatinine 0.81 (0.52-1.04) mg/dL Est GFR (CKD-EPI)AfAm >90 (>60 ml/min/1.73 sqM) Est GFR (CKD-EPI)NonAf >90 (>60 ml/min/1.73 sqM) Glucose 115 H (74-99) mg/dL Plasma Lactic Acid Jeremy 1.5 (0.7-2.0) mmol/L Calcium 8.8 (8.4-10.2) mg/dL Total Bilirubin <0.1 L (0.2-1.3) mg/dL AST 16 (14-36) U/L ALT 14 (4-34) U/L Alkaline Phosphatase 125 (38-126) U/L C-Reactive Protein <0.5 (<1.0) mg/dL Total Protein 5.9 L (6.3-8.2) g/dL Albumin 3.2 L (3.5-5.0) g/dL Amylase 63 (30-110) U/L Lipase 28 (23-300) U/L Urine Color Urine Appearance (Clear) Urine pH (5.0-8.0) Ur Specific [place] (1.001-1.035) Urine Protein (Negative) Urine Glucose (UA) (Negative) Urine Ketones (Negative) Urine Blood (Negative) Urine Nitrite (Negative) Urine Bilirubin (Negative) Urine Urobilinogen (<2.0) mg/dL Ur Leukocyte Esterase (Negative) Urine RBC (0-5) /hpf Urine WBC (0-5) /hpf Ur Squamous Epith Cells (0-4) /hpf Urine HCG, Qual (Not Detectd) Disposition Clinical Impression: Abdominal pain Disposition: HOME SELF-CARE Condition: Good Instructions (If sedation given, give patient instructions): Abdominal Pain (ED) Is patient prescribed a controlled substance at d/c from ED?: No Referrals: Joan Meeks MD [Primary Care Provider] - 1-2 days Time of Disposition: 15:45
[2021-12-05 13:47] LABS: Eosinophils # (M) 0.22 k/uL (0-0.7); Lymphocytes # (M) 3.94 k/uL (1.0-4.8); Monocytes # (M) 0.51 k/uL (0-1.0); Neutrophils # (M) 2.63 k/uL (1.3-7.7); Neutrophils % (M) 36 %; Nucleated Red Blood Cells 0 /100 WBC (0-0); Total Cells Counted 100
[2021-12-05 15:05] LABS: Appearance,Urine Cloudy (Clear); Bilirubin,Urine Negative (Negative); Blood,Urine Large (Negative); Color,Urine Colorless; Glucose,Urine (UA) Negative (Negative); Ketones,Urine Negative (Negative); Leukocyte Esterase,Urine Negative (Negative); Nitrite,Urine Negative (Negative); Protein,Urine Negative (Negative); RBC,Urine 2 /hpf (0-5); Specific Gravity,Urine 1.005 (1.001-1.035); Squamous Epithelial Cell,Urine 6 /hpf (0-4); Urobilinogen,Urine <2.0 mg/dL (<2.0); WBC,Urine 1 /hpf (0-5)
--- NOTE | 2021-12-05 15:13 | CT ---
EXAMINATION TYPE: CT abdomen pelvis wo con DATE OF EXAM: 12/05/2021 COMPARISON: 06/23/2021 HISTORY: Abdominal pain. R/O kidney stone CT DLP: 803.4 mGycm Automated exposure control for dose reduction was used. TECHNIQUE: Helical acquisition of images was performed from the lung bases through the pelvis. FINDINGS: The lung bases are clear. There are surgical absence of gallbladder. There is no biliary ductal dilatation. There is no organomegaly involving the liver, pancreas, or spleen. There is a stable small left adren al cyst or adenoma. There are no renal calcifications. There is no hydronephrosis. Caliber of the abdominal aorta is normal. There is no retroperitoneal. The bowel loops are normal in caliber is no evidence of bowel obstruction. No inflammatory changes ar e identified in the mesentery. There is no free intraperitoneal air. There is no pelvic adenopathy, free fluid or mass the osseous structures are intact. IMPRESSION: No significant abnormality seen.
[2021-12-05] MEDS ORDERED: MAGNESIUM CITRATE 296 ML BOTTLE PO ONE (15:37)
[2021-12-05] MEDS ORDERED: ACET/COD 300 MG/30 MG STARTER PACK 6 TAB BTL PO STA (15:50)
[2021-12-05 16:44] VITALS: BP 139/95; PULSE 80; TEMP 98
== END 2021-12-05 16:46 | disposition home or self-care (01) ==
LOC: EC 12:32
DX: R10.11 Right upper quadrant pain (principal); R10.31 Right lower quadrant pain; R11.0 Nausea; K59.00 Constipation, unspecified; J45.909 Unspecified asthma, uncomplicated; K21.9 Gastro-esophageal reflux disease without esophagitis; I10 Essential (primary) hypertension; Z86.69 Personal history of other diseases of the nervous system and sense organs; E07.9 Disorder of thyroid, unspecified; F17.200 Nicotine dependence, unspecified, uncomplicated; Z79.890 Hormone replacement therapy; Z79.899 Other long term (current) drug therapy; Z79.891 Long term (current) use of opiate analgesic; Z88.3 Allergy status to other anti-infective agents; Z88.8 Allergy status to other drugs, medicaments and biological substances; Z88.1 Allergy status to other antibiotic agents; Z88.6 Allergy status to analgesic agent; Z88.5 Allergy status to narcotic agent; Z88.0 Allergy status to penicillin; Z88.2 Allergy status to sulfonamides
CPT/HCPCS: 99284; 96374; 96375; 96376; 36415; 80053; 82150; 83605; 83690; 85025; 86140; 81001; 81025; 74176; J2270; J2765

== ENCOUNTER 2022-04-17 20:58 | Emergency (ER) | payer OTHER ==
[2022-04-17 21:04] VITALS: TEMP 97.4
[2022-04-17] MEDS ORDERED: SODIUM CHLORIDE 0.9% 1,000 ML IV STA ×2 (21:35→23:52)
[2022-04-17] MEDS ORDERED: MORPHINE SULFATE 4 MG/ML SYRINGE IVP STA (21:36)
[2022-04-17] MEDS ORDERED: PROCHLORPERAZINE INJ 10 MG/2 ML VIAL IVP STA (21:36)
[2022-04-17 22:09] LABS: ALT 22 U/L (4-34); AST 44 U/L (14-36); African American GFR (CKD) >90 (>60 ml/min/1.73 sqM); Albumin 3.7 g/dL (3.5-5.0); Alkaline Phosphatase 101 U/L (38-126); Amylase 101 U/L (30-110); Anion Gap 8 mmol/L; Blood Urea Nitrogen 14 mg/dL (7-17); Calcium 8.4 mg/dL (8.4-10.2); Carbon Dioxide 19 mmol/L (22-30); Chloride 111 mmol/L (98-107); Glucose 126 mg/dL (74-99); Lipase 59 U/L (23-300); Non-African American GFR(CKD) >90 (>60 ml/min/1.73 sqM); Sodium 138 mmol/L (137-145); Total Bilirubin 0.7 mg/dL (0.2-1.3)
[2022-04-17 22:11] LABS: Anisocytosis Slight; Basophils # (A) 0.1 k/uL (0-0.2); Basophils % (A) 1 %; Eosinophils # (A) 0.3 k/uL (0-0.7); Eosinophils % (A) 3 %; HCT 31.9 % (34.0-46.0); HGB 10.2 gm/dL (11.4-16.0); Hypochromasia Slight; Lymphocytes # (A) 4.7 k/uL (1.0-4.8); Lymphocytes % (A) 42 %; MCH 26.8 pg (25.0-35.0); MCHC 31.9 g/dL (31.0-37.0); MCV 84.2 fL (80.0-100.0); Mean Platelet Volume 7.3; Monocytes # (A) 0.7 k/uL (0-1.0); Monocytes % (A) 6 %; Neutrophils # (A) 5.2 k/uL (1.3-7.7); Neutrophils % (A) 45 %; Platelet Count 464 k/uL (150-450); RBC 3.79 m/uL (3.80-5.40); RDW 18.3 % (11.5-15.5); WBC 11.4 k/uL (3.8-10.6)
[2022-04-17 22:17] LABS: Potassium 5.4 mmol/L (3.5-5.1)
[2022-04-17 22:22] VITALS: RESP 16
--- NOTE | 2022-04-17 22:25 | ED ---
Abdominal Pain HPI - General Chief Complaint: Abdominal Pain Stated Complaint: Abd Pain,NVD Time Seen by Provider: 04/17/22 21:27 Source: patient, RN notes reviewed, old records reviewed Mode of arrival: ambulatory Limitations: no limitations - History of Present Illness Initial Comments: This is a 37-year-old female DF for evaluation. This patient presents today for evaluation regards to abdominal pain abdominal pain which is severe. Patient is on chronic history of different causes of abdominal pain related to Crohn's. Patient had gallbladder and appendix removed at a young age. Patient is having severe burning swelling bloating edema nausea and diarrhea. No fevers. No travel history or sick contacts. Symptoms 5 days in the lower patient cannot take it anymore. His extremities severely dehydrated as well. MD Complaint: abdominal pain -: days(s) Location: diffuse Radiation: none Migration to: no migration Severity: moderate Severity scale (1-10): 4 Quality: cramping, aching Consistency: constant Improves With: nothing Worsens With: nothing Associated Symptoms: nausea, vomiting, diarrhea Treatments Prior to Arrival: other (0) - Related Data Home Medications Medication Instructions Recorded Confirmed Levothyroxine Sodium [Synthroid] 137 mcg PO DAILY 08/07/18 06/23/21 Montelukast [Singulair] 10 mg PO DAILY 08/07/18 06/23/21 Balsalazide Disodium 2,250 mg PO TID 11/16/19 06/23/21 Lisinopril-Hctz 20-25 mg 2 tab PO DAILY 11/16/19 06/23/21 [Zestoretic 20-25] Famotidine [Pepcid] 20 mg PO BID 03/06/20 06/23/21 Simvastatin [Zocor] 20 mg PO HS 03/06/20 06/23/21 Divalproex [Depakote] 1,500 mg PO TID 07/14/20 06/23/21 Loratadine [Claritin] 10 mg PO DAILY 07/14/20 06/23/21 Gabapentin [Neurontin] 1,200 mg PO TID 10/01/20 06/23/21 Butalb/APAP/Caff 50-325-40Mg 1 tab PO TID PRN 11/18/20 06/23/21 [Fioricet 50-325-40] ondansetron HCL [Zofran] 8 mg PO Q12H PRN 11/18/20 06/23/21 Folic Acid 2 mg PO DAILY 02/06/21 06/23/21 PARoxetine HCL [Paxil] 60 mg PO DAILY 02/06/21 06/23/21 QUEtiapine FUMARATE [SEROquel] 600 mg PO HS 02/06/21 06/23/21 Dicyclomine [Bentyl] 10 mg PO ACHS 06/23/21 06/23/21 Ferrous Sulfate [Iron (65 MG 325 mg PO BID 06/23/21 06/23/21 Elemental)] Pantoprazole [Protonix] 40 mg PO DAILY 06/23/21 06/23/21 clonazePAM [KlonoPIN] 1 mg PO TID 06/23/21 06/23/21 oxyCODONE-APAP 10-325MG [Percocet 1 tab PO Q8HR PRN 06/23/21 06/23/21 10-325 mg] Previous Rx's Medication Instructions Recorded haloperidoL [Haldol] 1 mg PO BID #4 tab 06/04/20 Levofloxacin [Levaquin] 750 mg PO DAILY 4 Days #4 tab 06/24/21 Allergies Allergy/AdvReac Type Severity Reaction Status Date / Time dicyclomine [From Bentyl] Allergy Severe Hallucinati Verified 04/17/22 21:04 ons granisetron HCl [From Kytril] Allergy Severe Anaphylaxis Verified 04/17/22 21:04 azithromycin Allergy Rash/Hives Verified 04/17/22 21:04 baclofen Allergy Rash/Hives Verified 04/17/22 21:04 butorphanol [From Stadol] Allergy Rash/Hives Verified 04/17/22 21:04 butorphanol tartrate Allergy Rash/Hives Verified 04/17/22 21:04 [From Stadol] Cephalosporins Allergy Rash/Hives Verified 04/17/22 21:04 cyclobenzaprine Allergy Unknown Verified 04/17/22 21:04 [From Flexeril] dicloxacillin Allergy Rash/Hives Verified 04/17/22 21:04 granisetron [From Kytril] Allergy Anaphylaxis Verified 04/17/22 21:04 ketorolac Allergy Rash/Hives Verified 04/17/22 21:04 ketorolac tromethamine Allergy Rash/Hives Verified 04/17/22 21:04 [From Toradol] meperidine Allergy Unknown Verified 04/17/22 21:04 meperidine HCl [From Demerol] Allergy Swelling Verified 04/17/22 21:04 pregabalin [From Lyrica] Allergy Unknown Verified 04/17/22 21:04 risperidone [From Risperdal] Allergy Dyspnea Verified 04/17/22 21:04 sulfamethoxazole Allergy Rash/Hives Verified 04/17/22 21:04 [From Bactrim] trimethoprim [From Bactrim] Allergy Rash/Hives Verified 04/17/22 21:04 methylprednisolone AdvReac Vomiting & Verified 04/17/22 21:04 [From Medrol] Headache Review of Systems ROS Statement: Those systems with pertinent positive or pertinent negative responses have been documented in the HPI. ROS Other: All systems not noted in ROS Statement are negative. Past Medical History Past Medical History: Asthma, Fibromyalgia, GERD/Reflux, Hypertension, Neurologic Disorder, Seizure Disorder, Thyroid Disorder Additional Past Medical History / Comment(s): crohns disease, diverticulosis, ibs, chronic colitis.,carpal tunnel solo wrists, anemia, chronic back pain , migraines, pinched nerves, Hx fall in June and broke old fracture above right ankle- wears boot., frequent nausea, last seizure 1 month ago., hx pancreatitis. Scoliosis History of Any Multi-Drug Resistant Organisms: MRSA Past Surgical History: Adenoidectomy, Appendectomy, Cholecystectomy, Orthopedic Surgery, Tonsillectomy Additional Past Surgical History / Comment(s): EGD/colonoscopy, right ankle surgery, broken nose surgery Past Anesthesia/Blood Transfusion Reactions: Previous Problems w/ Anesthesia, Postoperative Nausea & Vomiting (PONV) Additional Past Anesthesia/Blood Transfusion Reaction / Comment(s): halluci nations x1 Past Psychological History: Anxiety, Bipolar, Depression, PTSD Smoking Status: Current every day smoker Past Alcohol Use History: None Reported Past Drug Use History: Marijuana - Past Family History Father Family Medical History: Diabetes Mellitus, Hyperlipidemia Mother Family Medical History: Cancer, CVA/TIA, Deep Vein Thrombosis (DVT), Osteoarthritis (OA), Thyroid Disorder Additional Family Medical History / Comment(s): Extensive tattoos throughout body General Exam Limitations: no limitations General appearance: alert, in no apparent distress, anxious Head exam: Present: atraumatic, normocephalic, normal inspection Eye exam: Present: normal appearance, PERRL, EOMI. Absent: scleral icterus, conjunctival injection, periorbital swelling ENT exam: Present: normal exam, mucous membranes dry Neck exam: Present: normal inspection. Absent: tenderness, meningismus, lymphadenopathy Respiratory exam: Present: normal lung sounds bilaterally. Absent: respiratory distress, wheezes, rales, rhonchi, stridor Cardiovascular Exam: Present: normal rhythm, tachycardia, normal heart sounds. Absent: systolic murmur, diastolic murmur, rubs, gallop, clicks GI/Abdominal exam: Present: soft, distended, tenderness, guarding, normal bowel sounds. Absent: rebound, rigid Extremities exam: Present: normal inspection, full ROM, normal capillary refill. Absent: tenderness, pedal edema, joint swelling, calf tenderness Back exam: Present: normal inspection Neurological exam: Present: alert, oriented X3, CN II-XII intact Psychiatric exam: Present: normal affect, normal mood Skin exam: Present: warm, dry, intact, normal color. Absent: rash Course Vital Signs 04/17/22 04/17/22 04/17/22 21:01 22:04 23:00 Temperature 97.4 F L Pulse Rate 103 H 99 95 Respiratory 20 16 16 Rate Blood Pressure 163/114 140/97 143/96 O2 Sat by Pulse 98 96 97 Oximetry - Reevaluation(s) Reevaluation #1: 04/17/22 22:23 Medical record is reviewed Reevaluation #2: 04/17/22 22:23 Patient symptoms are improved Reevaluation #3: 04/17/22 23:23 Patient informed of results and questions answered Reevaluation #4: 04/17/22 22:23 Differential Abdominal Pain Women: Appendicitis, Cholecystitis, diverticulosis, ischemic bowel, pancreatitis, hepatitis, UTI, gastroenteritis, AAA, incarcerated hernia, bowel obstruction, constipation, inflammatory bowel, hepatitis, peptic ulcer disease, splenic infarction, perforated viscus, vulvitis, ovarian torsion, PID, kidney stone, placenta abruption, this is not meant to be an all-inclusive list Reevaluation #5: 04/17/22 22:24 Was pt. sent in by a medical professional or institution? @ -no Did you speak to anyone other than the patient for history? @ -ron Did you review nursing and triage notes? @ -theresa Were old charts reviewed? @ -no Differential Diagnosis? @ -prior EKG interpreted by me (3pts min.)? @ -[none] X-rays interpreted by me (1pt min.)? @ -[none] CT interpreted by me (1pt min.)? @ -[none] U/S interpreted by me (1pt. min.)? @ -[none] What testing was considered but not performed? (CT, X-rays, U/S, labs)? Why? @ no What meds were considered but not given? Why? @ -[none] Did you discuss the management of the patient with other professionals? @ -no Did you reconcile home meds? @ -[none] Was smoking cessation discussed for >3mins.? @ -[none] Was critical care preformed (if so, how long)? @ -[none] Were there social determinants of health that impacted care today? How? (Homelessness, low income, unemployed, alcoholism, drug addiction, transportat ion, low edu. Level, literacy, decrease access to med. care, fci, rehab)? @ -no Was there de-escalation of care discussed even if they declined? (Discuss DNR or withdrawal of care, Hospice)? @ -no What co-morbidities impacted this encounter? (DM, HTN, Smoking, COPD, CAD, Cancer, CVA, Hep., AIDS, mental health diagnosis, sleep apnea, morbid obesity)? @ -no Was patient admitted / discharged? @ -dc Undiagnosed new problem with uncertain prognosis? @ -[none] Drug Therapy requiring intensive monitoring for toxicity (Heparin, Nitro, Insulin, Cardizem)? @ -[none] Were any procedures done? @ -[none] Diagnosis/symptom? @ -[default] Acute, or Chronic, or Acute on Chronic? @ -[default] Uncomplicated (without systemic symptoms) or Complicated (systemic symptoms)? @ -[default] Side effects of treatment? @ -[none] Exacerbation, Progression, or Severe Exacerbation] @ -[no] Poses a threat to life or bodily function? @ -[no] Medical Decision Making - Medical Decision Making 37 female with nonspecific abdominal pain history of chronic abdominal pain Crohn's multiple abdominal surgeries. Computed tomography scan showing constipation patient will be given bowel regimen can be discharged home - Lab Data Result diagrams: 04/17/22 21:39 04/17/22 21:39 Lab Results 04/17/22 04/17/22 04/17/22 Range/Units 21:39 21:39 21:39 WBC 11.4 H (3.8-10.6) k/uL RBC 3.79 L (3.80-5.40) m/uL Hgb 10.2 L (11.4-16.0) gm/dL Hct 31.9 L (34.0-46.0) % MCV 84.2 (80.0-100.0) fL MCH 26.8 (25.0-35.0) pg MCHC 31.9 (31.0-37.0) g/dL RDW 18.3 H (11.5-15.5) % Plt Count 464 H (150-450) k/uL MPV 7.3 Neutrophils % 45 % Lymphocytes % 42 % Monocytes % 6 % Eosinophils % 3 % Basophils % 1 % Neutrophils # 5.2 (1.3-7.7) k/uL Lymphocytes # 4.7 (1.0-4.8) k/uL Monocytes # 0.7 (0-1.0) k/uL Eosinophils # 0.3 (0-0.7) k/uL Basophils # 0.1 (0-0.2) k/uL Hypochromasia Slight Anisocytosis Slight Sodium (137-145) mmol/L Potassium (3.5-5.1) mmol/L Chloride (98-107) mmol/L Carbon Dioxide (22-30) mmol/L Anion Gap mmol/L BUN (7-17) mg/dL Creatinine (0.52-1.04) mg/dL Est GFR (CKD-EPI)AfAm (>60 ml/min/1.73 sqM) Est GFR (CKD-EPI)NonAf (>60 ml/min/1.73 sqM) Glucose (74-99) mg/dL Calcium (8.4-10.2) mg/dL Total Bilirubin (0.2-1.3) mg/dL AST (14-36) U/L ALT (4-34) U/L Alkaline Phosphatase (38-126) U/L Total Protein (6.3-8.2) g/dL Albumin (3.5-5.0) g/dL Amylase (30-110) U/L Lipase (23-300) U/L Urine Color Light Yellow Urine Appearance Cloudy H (Clear) Urine pH 5.5 (5.0-8.0) Ur Specific [place] 1.017 (1.001-1.035) Urine Protein Trace H (Negative) Urine Glucose (UA) Negative (Negative) Urine Ketones Negative (Negative) Urine Blood Negative (Negative) Urine Nitrite Negative (Negative) Urine Bilirubin Negative (Negative) Urine Urobilinogen <2.0 (<2.0) mg/dL Ur Leukocyte Esterase Moderate H (Negative) Urine RBC 2 (0-5) /hpf Urine WBC 8 H (0-5) /hpf Ur Squamous Epith Cells 14 H (0-4) /hpf Urine Bacteria Occasional H (None) /hpf Urine Mucus Few H (None) /hpf Urine HCG, Qual Not Detected (Not Detectd) 04/17/22 Range/Units 21:39 WBC (3.8-10.6) k/uL RBC (3.80-5.40) m/uL Hgb (11.4-16.0) gm/dL Hct (34.0-46.0) % MCV (80.0-100.0) fL MCH (25.0-35.0) pg MCHC (31.0-37.0) g/dL RDW (11.5-15.5) % Plt Count (150-450) k/uL MPV Neutrophils % % Lymphocytes % % Monocytes % % Eosinophils % % Basophils % % Neutrophils # (1.3-7.7) k/uL Lymphocytes # (1.0-4.8) k/uL Monocytes # (0-1.0) k/uL Eosinophils # (0-0.7) k/uL Basophils # (0-0.2) k/uL Hypochromasia Anisocytosis Sodium 138 (137-145) mmol/L Potassium 5.4 H (3.5-5.1) mmol/L Chloride 111 H (98-107) mmol/L Carbon Dioxide 19 L (22-30) mmol/L Anion Gap 8 mmol/L BUN 14 (7-17) mg/dL Creatinine 0.70 (0.52-1.04) mg/dL Est GFR (CKD-EPI)AfAm >90 (>60 ml/min/1.73 sqM) Est GFR (CKD-EPI)NonAf >90 (>60 ml/min/1.73 sqM) Glucose 126 H (74-99) mg/dL Calcium 8.4 (8.4-10.2) mg/dL Total Bilirubin 0.7 (0.2-1.3) mg/dL AST 44 H (14-36) U/L ALT 22 (4-34) U/L Alkaline Phosphatase 101 (38-126) U/L Total Protein 7.0 (6.3-8.2) g/dL Albumin 3.7 (3.5-5.0) g/dL Amylase 101 (30-110) U/L Lipase 59 (23-300) U/L Urine Color Urine Appearance (Clear) Urine pH (5.0-8.0) Ur Specific [place] (1.001-1.035) Urine Protein (Negative) Urine Glucose (UA) (Negative) Urine Ketones (Negative) Urine Blood (Negative) Urine Nitrite (Negative) Urine Bilirubin (Negative) Urine Urobilinogen (<2.0) mg/dL Ur Leukocyte Esterase (Negative) Urine RBC (0-5) /hpf Urine WBC (0-5) /hpf Ur Squamous Epith Cells (0-4) /hpf Urine Bacteria (None) /hpf Urine Mucus (None) /hpf Urine HCG, Qual (Not Detectd) - Radiology Data Radiology results: report reviewed (CT of the abdomen pelvis), image reviewed Disposition Clinical Impression: Constipation, Exacerbation of Crohn's disease, Intractable pain, Abdominal coli c, Abdominal pain Disposition: HOME SELF-CARE Condition: Good Instructions (If sedation given, give patient instructions): Abdominal Pain (ED) Is patient prescribed a controlled substance at d/c from ED?: No Referrals: Joan Meeks MD [Primary Care Provider] - 1-2 days Time of Disposition: 00:20
[2022-04-17 23:17] VITALS: BP 143/96; PULSE 95
[2022-04-17 23:22] LABS: Appearance,Urine Cloudy (Clear); Bacteria,Urine Occasional /hpf; Bilirubin,Urine Negative (Negative); Blood,Urine Negative (Negative); Color,Urine Light Yellow; Glucose,Urine (UA) Negative (Negative); Ketones,Urine Negative (Negative); Leukocyte Esterase,Urine Moderate (Negative); Mucus,Urine Few /hpf; Nitrite,Urine Negative (Negative); PH, Urine 5.5 (5.0-8.0); Protein,Urine Trace (Negative); RBC,Urine 2 /hpf (0-5); Specific Gravity,Urine 1.017 (1.001-1.035); Squamous Epithelial Cell,Urine 14 /hpf (0-4); Urobilinogen,Urine <2.0 mg/dL (<2.0); WBC,Urine 8 /hpf (0-5)
--- NOTE | 2022-04-17 23:50 | CT ---
EXAMINATION TYPE: CT abdomen pelvis w con DATE OF EXAM: 04/17/2022 COMPARISON: 12/05/2021 HISTORY: Abdominal pain CT DLP: 1424.5 mGycm Automated exposure control for dose reduction was used. CONTRAST: Performed with IV Contrast, patient injected with 100ml mL of Isovue 300. Images obtained from the diaphragm to the floor the pelvis with the IV contrast. The lung bases are clear. No pleural effusion. Heart size is normal. No pericardial effusion. Liver spleen and stomach pancreas appear intact. There are clips from cholecystectomy. The bile ducts are not dilated. There is no hydronephrosis. There is a low-density 2 cm left adrenal mass. Kidneys have normal size. The ureters are not dilated. No retroperitoneal adenopathy. Bladder distends smoothly. No inguinal he rnia. No free fluid in the pelvis. No evidence of a renal calculus. The lumbar vertebrae have normal alignment. Posterior elements are intact. No compression fracture. B nghia pelvis is intact. The hip joints are intact. Sacroiliac joints are intact. Uterus is anteverted. No adnexal mass. There is no mesenteric edema. No ascites or free air. No sign of a bowel obstruction. There is some r etained fecal material in the large bowel. IMPRESSION: There is evidence for some constipation which is increased compared to the old exam.
[2022-04-17] MEDS ORDERED: GLYCERIN ADULT SUPPOSITORY 1 EACH RECTAL STA (23:52)
[2022-04-17] MEDS ORDERED: SENNOSIDES-DOCUSATE SODIUM 1 EACH TAB PO STA (23:52)
== END 2022-04-18 00:35 | disposition home or self-care (01) ==
LOC: EC 20:58
DX: K50.919 Crohn's disease, unspecified, with unspecified complications (principal); R10.84 Generalized abdominal pain; M41.9 Scoliosis, unspecified; J45.909 Unspecified asthma, uncomplicated; I10 Essential (primary) hypertension; E07.9 Disorder of thyroid, unspecified; K21.9 Gastro-esophageal reflux disease without esophagitis; F41.9 Anxiety disorder, unspecified; F31.9 Bipolar disorder, unspecified; F17.200 Nicotine dependence, unspecified, uncomplicated; F12.90 Cannabis use, unspecified, uncomplicated; Z79.899 Other long term (current) drug therapy; Z79.890 Hormone replacement therapy; Z88.0 Allergy status to penicillin; Z88.1 Allergy status to other antibiotic agents; Z88.2 Allergy status to sulfonamides; Z88.5 Allergy status to narcotic agent; Z88.8 Allergy status to other drugs, medicaments and biological substances
CPT/HCPCS: 36415; 80053; 82150; 83690; 85025; 81001; 81025; 74177; 99284; 96374; 96375; 96361; J2270; J0780; Q9967

== ENCOUNTER 2022-08-02 14:43 | Emergency (ER) | payer OTHER ==
[2022-08-02 14:48] VITALS: RESP 18
[2022-08-02] MEDS ORDERED: DEXAMETHASONE SOD PHOSPHATE 10 MG/ML 1 ML VIAL IVP STA (16:12)
[2022-08-02] MEDS ORDERED: ALBUTEROL NEBULIZED 2.5 MG/3 ML INHALATION STA (16:13)
[2022-08-02] MEDS ORDERED: methylPREDNISolone SOD SUCCI 125 MG/2 ML VIAL IV STA (16:14)
[2022-08-02] MEDS ORDERED: SODIUM CHLORIDE 0.9% 1,000 ML IV STA (16:14)
--- NOTE | 2022-08-02 16:20 | ED ---
SOB HPI - General Chief Complaint: Shortness of Breath Stated Complaint: JONATAN, Abd Pain Time Seen by Provider: 08/02/22 16:01 Source: patient Mode of arrival: wheelchair - History of Present Illness Initial Comments: Patient is a 37-year-old female who presents to the emergency department for multiple complaints. Her first complaint is shortness of breath. Patient reports upper respiratory symptoms since yesterday including sore throat, congestion, dry cough. Patient has history of asthma states she has had trouble catching her breath. States asthma exacerbations are rare for her. She has a nebulizer at home with albuterol but hasn't used it. She denies chest pain. No fever, chills. Patient also reports right sided abdominal pain increased from her normal pain. She has history of chronic abdominal pain related to Crohn's disease which she takes Percocet for. She also has history of cholecystectomy and appendectomy. She reports nausea with 2 episodes of vomiting today. She denies constipation, diarrhea. - Related Data Home Medications Medication Instructions Recorded Confirmed Levothyroxine Sodium [Synthroid] 137 mcg PO DAILY 08/07/18 06/23/21 Montelukast [Singulair] 10 mg PO DAILY 08/07/18 06/23/21 Balsalazide Disodium 2,250 mg PO TID 11/16/19 06/23/21 Lisinopril-Hctz 20-25 mg 2 tab PO DAILY 11/16/19 06/23/21 [Zestoretic 20-25] Famotidine [Pepcid] 20 mg PO BID 03/06/20 06/23/21 Simvastatin [Zocor] 20 mg PO HS 03/06/20 06/23/21 Divalproex [Depakote] 1,500 mg PO TID 07/14/20 06/23/21 Loratadine [Claritin] 10 mg PO DAILY 07/14/20 06/23/21 Gabapentin [Neurontin] 1,200 mg PO TID 10/01/20 06/23/21 Butalb/APAP/Caff 50-325-40Mg 1 tab PO TID PRN 11/18/20 06/23/21 [Fioricet 50-325-40] ondansetron HCL [Zofran] 8 mg PO Q12H PRN 11/18/20 06/23/21 Folic Acid 2 mg PO DAILY 02/06/21 06/23/21 PARoxetine HCL [Paxil] 60 mg PO DAILY 02/06/21 06/23/21 QUEtiapine FUMARATE [SEROquel] 600 mg PO HS 02/06/21 06/23/21 Dicyclomine [Bentyl] 10 mg PO ACHS 06/23/21 06/23/21 Ferrous Sulfate [Iron (65 MG 325 mg PO BID 06/23/21 06/23/21 Elemental)] Pantoprazole [Protonix] 40 mg PO DAILY 06/23/21 06/23/21 clonazePAM [KlonoPIN] 1 mg PO TID 06/23/21 06/23/21 oxyCODONE-APAP 10-325MG [Percocet 1 tab PO Q8HR PRN 06/23/21 06/23/21 10-325 mg] Previous Rx's Medication Instructions Recorded haloperidoL [Haldol] 1 mg PO BID #4 tab 06/04/20 Levofloxacin [Levaquin] 750 mg PO DAILY 4 Days #4 tab 06/24/21 Albuterol Inhaler [Ventolin Hfa 2 puff INHALATION TID #8 gm 08/02/22 Inhaler] Metoclopramide [Reglan] 10 mg PO TID PRN #15 tab 08/02/22 predniSONE 50 mg PO DAILY #5 tab 08/02/22 Allergies Allergy/AdvReac Type Severity Reaction Status Date / Time dicyclomine [From Bentyl] Allergy Severe Hallucinati Verified 08/02/22 14:44 ons granisetron HCl [From Kytril] Allergy Severe Anaphylaxis Verified 08/02/22 14:44 azithromycin Allergy Rash/Hives Verified 08/02/22 14:44 baclofen Allergy Rash/Hives Verified 08/02/22 14:44 butorphanol [From Stadol] Allergy Rash/Hives Verified 08/02/22 14:44 butorphanol tartrate Allergy Rash/Hives Verified 08/02/22 14:44 [From Stadol] Cephalosporins Allergy Rash/Hives Verified 08/02/22 14:44 cyclobenzaprine Allergy Unknown Verified 08/02/22 14:44 [From Flexeril] dicloxacillin Allergy Rash/Hives Verified 08/02/22 14:44 granisetron [From Kytril] Allergy Anaphylaxis Verified 08/02/22 14:44 ketorolac Allergy Rash/Hives Verified 08/02/22 14:44 ketorolac tromethamine Allergy Rash/Hives Verified 08/02/22 14:44 [From Toradol] meperidine Allergy Unknown Verified 08/02/22 14:44 meperidine HCl [From Demerol] Allergy Swelling Verified 08/02/22 14:44 pregabalin [From Lyrica] Allergy Unknown Verified 08/02/22 14:44 risperidone [From Risperdal] Allergy Dyspnea Verified 08/02/22 14:44 sulfamethoxazole Allergy Rash/Hives Verified 08/02/22 14:44 [From Bactrim] trimethoprim [From Bactrim] Allergy Rash/Hives Verified 08/02/22 14:44 methylprednisolone AdvReac Vomiting & Verified 08/02/22 14:44 [From Medrol] Headache Review of Systems ROS Statement: Those systems with pertinent positive or pertinent negative responses have been documented in the HPI. ROS Other: All systems not noted in ROS Statement are negative. Past Medical History Past Medical History: Asthma, Fibromyalgia, GERD/Reflux, Hypertension, Neurologic Disorder, Seizure Disorder, Thyroid Disorder Additional Past Medical History / Comment(s): crohns disease, diverticulosis, ibs, chronic colitis.,carpal tunnel solo wrists, anemia, chronic back pain , migraines, pinched nerves, Hx fall in June and broke old fracture above right ankle- wears boot., frequent nausea, last seizure 1 month ago., hx pancreatitis. Scoliosis History of Any Multi-Drug Resistant Organisms: MRSA Past Surgical History: Adenoidectomy, Appendectomy, Cholecystectomy, Orthopedic Surgery, Tonsillectomy Additional Past Surgical History / Comment(s): EGD/colonoscopy, right ankle surgery, broken nose surgery Past Anesthesia/Blood Transfusion Reactions: Previous Problems w/ Anesthesia, Postoperative Nausea & Vomiting (PONV) Additional Past Anesthesia/Blood Transfusion Reaction / Comment(s): hallucinations x1 Past Psychological History: Anxiety, Bipolar, Depression, PTSD Smoking Status: Current every day smoker Past Alcohol Use History: None Reported Past Drug Use History: Marijuana - Past Family History Father Family Medical History: Diabetes Mellitus, Hyperlipidemia Mother Family Medical History: Cancer, CVA/TIA, Deep Vein Thrombosis (DVT), Osteoarthritis (OA), Thyroid Disorder Additional Family Medical History / Comment(s): Extensive tattoos throughout body General Exam General appearance: alert, in no apparent distress Head exam: Present: atraumatic, normocephalic, normal inspection Eye exam: Present: normal appearance, PERRL, EOMI. Absent: scleral icterus, conjunctival injection, periorbital swelling ENT exam: Present: normal oropharynx, TM's normal bilaterally Respiratory exam: Present: normal lung sounds bilaterally, wheezes (throughout ). Absent: respiratory distress, rales, rhonchi, stridor Cardiovascular Exam: Present: regular rate, normal rhythm, normal heart sounds. Absent: systolic murmur, diastolic murmur, rubs, gallop, clicks GI/Abdominal exam: Present: soft, tenderness (RLQ), normal bowel sounds. Absent: distended, guarding, rebound, rigid Neurological exam: Present: alert, oriented X3, CN II-XII intact Psychiatric exam: Present: normal affect, normal mood Skin exam: Present: warm, dry, intact, normal color. Absent: rash Course Vital Signs 08/02/22 08/02/22 08/02/22 14:45 18:16 18:25 Temperature 98.3 F Pulse Rate 103 H 88 86 Respiratory 18 Rate Blood Pressure 172/99 O2 Sat by Pulse 99 Oximetry 08/02/22 18:28 Temperature 97.9 F Pulse Rate 81 Respiratory 18 Rate Blood Pressure 131/94 O2 Sat by Pulse 100 Oximetry Medical Decision Making - Medical Decision Making EKG taken at 14:53, interpreted by me Sinus rhythm, no ST segment or T-wave abnormality Ventricular rate 98, VA interval 147, QRS duration 89, QTc 402 Was pt. sent in by a medical professional or institution (, PA, PLEATING MACHINE OPERATOR, urgent care, hospital, or detention...) When possible be specific @ -No Did you speak to anyone other than the patient for history (EMS, parent, family, police, friend...)? What history was obtained from this source @ -No Did you review nursing and triage notes (agree or disagree)? Why? @ -I reviewed and agree with nursing and triage notes Were old charts reviewed (outside hosp., previous admission, EMS record, old EKG, old radiological studies, urgent care reports/EKG's, detention records)? Report findings @ -No old charts were reviewed Differential Diagnosis (chest pain, altered mental status, abdominal pain women, abdominal pain men, vaginal bleeding, weakness, fever, dyspnea, syncope, headache, dizziness, GI bleed, back pain, seizure, CVA, palpatations, mental health)? @ -Differential Dyspnea: Coronary syndrome, arrhythmia, tamponade, asthma, COPD, pulmonary embolism, pneumonia, pneumothorax, pulmonary effusion, anaphylaxis, diabetic ketoacidosis, flailed chest, pulmonary contusion, diaphragmatic rupture, anemia, neuromuscular, this is not meant to be an all-inclusive list. EKG interpreted by me (3pts min.). @ -As above X-rays interpreted by me (1pt min.). @ -None done CT interpreted by me (1pt min.). @ -None done U/S interpreted by me (1pt. min.). @ -None done What testing was considered but not performed or refused? (CT, X-rays, U/S, labs)? Why? @ -Consider CT imaging of the abdomen given patient has tenderness and actively vomiting with thrombocytosis patient declined What meds were considered but not given or refused? Why? @ -None Did you discuss the management of the patient with other professionals (professionals i.e. , PA, PLEATING MACHINE OPERATOR, lab, RT, psych nurse, case management social worker, vehicle maintenance technician, teacher, supply requirements officer, block and case maker)? Give summary @ -No Was smoking cessation discussed for >3mins.? @ -No Was critical care preformed (if so, how long)? @ -No Were there social determinants of health that impacted care today? How? (Homelessness, low income, unemployed, alcoholism, drug addiction, transportation, low edu. Level, literacy, decrease access to med. care, [facility], rehab)? @ -No Was there de-escalation of care discussed even if they declined (Discuss DNR or withdrawal of care, Hospice)? DNR status @ -No What co-morbidities impacted this encounter? (DM, HTN, Smoking, COPD, CAD, Cancer, CVA, ARF, Chemo, Hep., AIDS, mental health diagnosis, sleep apnea, morbid obesity)? @ -None Was patient admitted / discharged? Hospital course, mention meds given and route, prescriptions, significant lab abnormalities, going to OR and other pertinent info. @ -This is a 37-year-old female presenting with shortness of breath and abdominal pain. No evidence of respiratory distress. No hypoxia. Mild whe ezing is heard throughout. X-ray of the chest obtained showing no acute process. Patient denies any Solu-Medrol ALLERGY despite chart she was given IV Solu-Medrol and breathing treatment. COVID-19, RSV, influenza not detected. Laboratory studies obtained. There is mild leukocytosis at 12.1. There is thrombocytosis at 833. increased from previous at 464, likely reactive. Patient does have moderate tenderness in the right lower quadrant and did have vomiting during her visit/. With this along with laboratory findings I did order CT of the abdomen however patient declined. Patient requesting to go home.Lung sounds improved patient tolerating oral fluids. She did ask for prescription of Percocet as her prescription is at home and [place] which she will not be going to. I declined this request patient to take Tylenol or Motrin for pain. She has albuterol for her nebulizer at home she will use [id number] and I will also discharge her with an albuterol inhaler. Patient discharged in stable medical condition. Undiagnosed new problem with uncertain prognosis? @ -No Drug Therapy requiring intensive monitoring for toxicity (Heparin, Nitro, Insulin, Cardizem)? @ -No Were any procedures done? @ -No Diagnosis/symptom? @ -asthma exacerbation, URI Acute, or Chronic, or Acute on Chronic? @ -acute Uncomplicated (without systemic symptoms) or Complicated (systemic symptoms)? @ -uncomplicated Side effects of treatment? @ -No Exacerbation, Progression, or Severe Exacerbation? @ -No Poses a threat to life or bodily function? How? (Chest pain, [place], [place], pneumonia, PE, COPD, DKA, ARF, appy, cholecystitis, CVA, Diverticulitis, Homicidal, Suicidal, threat to staff... and all critical care pts) @ -No Diagnosis/symptom? @ -abdominal pain Acute, or Chronic, or Acute on Chronic? @ -chronic Uncomplicated (without systemic symptoms) or Complicated (systemic symptoms)? @ -uncomplicated Side effects of treatment? @ -none Exacerbation, Progression, or Severe Exacerbation] @ -no Poses a threat to life or bodily function? @ -no Dr. Awan is my attending - Lab Data Result diagrams: 08/02/22 17:13 08/02/22 17:13 Lab Results 08/02/22 08/02/22 08/02/22 Range/Units 16:48 16:48 17:13 WBC 12.1 H (3.8-10.6) k/uL RBC 3.55 L (3.80-5.40) m/uL Hgb 8.9 L (11.4-16.0) gm/dL Hct 28.4 L (34.0-46.0) % MCV 79.9 L (80.0-100.0) fL MCH 25.2 (25.0-35.0) pg MCHC 31.5 (31.0-37.0) g/dL RDW 18.7 H (11.5-15.5) % Plt Count 833 H (150-450) k/uL MPV 8.0 Neutrophils % 66 % Lymphocytes % 23 % Monocytes % 7 % Eosinophils % 1 % Basophils % 0 % Neutrophils # 7.9 H (1.3-7.7) k/uL Lymphocytes # 2.8 (1.0-4.8) k/uL Monocytes # 0.9 (0-1.0) k/uL Eosinophils # 0.2 (0-0.7) k/uL Basophils # 0.0 (0-0.2) k/uL Hypochromasia Slight Anisocytosis Slight Microcytosis Slight Sodium (137-145) mmol/L Potassium (3.5-5.1) mmol/L Chloride (98-107) mmol/L Carbon Dioxide (22-30) mmol/L Anion Gap mmol/L BUN (7-17) mg/dL Creatinine (0.52-1.04) mg/dL Est GFR (CKD-EPI)AfAm (>60 ml/min/1.73 sqM) Est GFR (CKD-EPI)NonAf (>60 ml/min/1.73 sqM) Glucose (74-99) mg/dL Plasma Lactic Acid Jeremy (0.7-2.0) mmol/L Calcium (8.4-10.2) mg/dL Total Bilirubin (0.2-1.3) mg/dL AST (14-36) U/L ALT (4-34) U/L Alkaline Phosphatase (38-126) U/L Total Protein (6.3-8.2) g/dL Albumin (3.5-5.0) g/dL Influenza Type A (PCR) Not Detected (Not Detectd) Influenza Type B (PCR) Not Detected (Not Detectd) RSV (PCR) Not Detected (Not Detectd) SARS-CoV-2 (PCR) Not Detected (Not Detectd) Group A Strep (PCR) NOT DETECTED (Not Detectd) 08/02/22 08/02/22 Range/Units 17:13 17:13 WBC (3.8-10.6) k/uL RBC (3.80-5.40) m/uL Hgb (11.4-16.0) gm/dL Hct (34.0-46.0) % MCV (80.0-100.0) fL MCH (25.0-35.0) pg MCHC (31.0-37.0) g/dL RDW (11.5-15.5) % Plt Count (150-450) k/uL MPV Neutrophils % % Lymphocytes % % Monocytes % % Eosinophils % % Basophils % % Neutrophils # (1.3-7.7) k/uL Lymphocytes # (1.0-4.8) k/uL Monocytes # (0-1.0) k/uL Eosinophils # (0-0.7) k/uL Basophils # (0-0.2) k/uL Hypochromasia Anisocytosis Microcytosis Sodium 135 L (137-145) mmol/L Potassium 4.1 (3.5-5.1) mmol/L Chloride 105 (98-107) mmol/L Carbon Dioxide 21 L (22-30) mmol/L Anion Gap 9 mmol/L BUN 5 L (7-17) mg/dL Creatinine 0.41 L (0.52-1.04) mg/dL Est GFR (CKD-EPI)AfAm >90 (>60 ml/min/1.73 sqM) Est GFR (CKD-EPI)NonAf >90 (>60 ml/min/1.73 sqM) Glucose 89 (74-99) mg/dL Plasma Lactic Acid Jeremy 1.2 (0.7-2.0) mmol/L Calcium 8.4 (8.4-10.2) mg/dL Total Bilirubin 0.3 (0.2-1.3) mg/dL AST 17 (14-36) U/L ALT 14 (4-34) U/L Alkaline Phosphatase 82 (38-126) U/L Total Protein 6.1 L (6.3-8.2) g/dL Albumin 3.1 L (3.5-5.0) g/dL Influenza Type A (PCR) (Not Detectd) Influenza Type B (PCR) (Not Detectd) RSV (PCR) (Not Detectd) SARS-CoV-2 (PCR) (Not Detectd) Group A Strep (PCR) (Not Detectd) Disposition Clinical Impression: Abdominal pain, Asthma exacerbation, URI (upper respiratory infection) Disposition: HOME SELF-CARE Condition: Good Instructions (If sedation given, give patient instructions): Asthma (ED), Chronic Abdominal Pain (ED) Additional Instructions: Take medication as directed. Start prednisone tomorrow. Take home prescription of Percocet for pain. Please do [id number] breathing treatments until improvement of symptoms. Increase fluid intake. Please follow-up with your primary care provider in 1-2 days. Return to the emergency department if you experience new, concerning, or worsening symptoms. Prescriptions: predniSONE 50 mg PO DAILY #5 tab Metoclopramide [Reglan] 10 mg PO TID PRN #15 tab PRN Reason: Nausea Albuterol Inhaler [Ventolin Hfa Inhaler] 2 puff INHALATION TID #8 gm Is patient prescribed a controlled substance at d/c from ED?: No Referrals: Nonstaff,Physician [REFERRING] - 1-2 days
--- NOTE | 2022-08-02 16:27 | XR ---
EXAMINATION TYPE: XR chest 2V DATE OF EXAM: 08/02/2022 4:22 PM COMPARISON: Chest x-ray 08/10/2020 TECHNIQUE: XR chest 2V . CLINICAL INDICATION:Female, 37 years old with history of SOB, wheezing; FINDINGS: Lungs/Pleura: There is no evidence of pleural effusion, focal consolidation, or pneumothorax. Pulmonary vascularity: Unremarkable. Heart/mediastinum: Cardiomediastinal silhouette is unremarkable. Musculoskeletal: No acute osseous pathology. IMPRESSION: No acute cardiopulmonary disease/process.
[2022-08-02] MEDS ORDERED: METOCLOPRAMIDE 5 MG/ML 2 ML VIAL IVP STA (16:41)
[2022-08-02] MEDS ORDERED: ACETAMINOPHEN IV (For NPO) 1,000 MG in EMPTY BAG 1 BAG IVPB STA (16:45)
[2022-08-02] MEDS ORDERED: PANTOPRAZOLE 40 MG/10 ML VIAL IVP STA (16:47)
[2022-08-02 17:20] LABS: Anisocytosis Slight; Basophils % (A) 0 %; Eosinophils # (A) 0.2 k/uL (0-0.7); Eosinophils % (A) 1 %; HCT 28.4 % (34.0-46.0); HGB 8.9 gm/dL (11.4-16.0); Hypochromasia Slight; Lymphocytes # (A) 2.8 k/uL (1.0-4.8); Lymphocytes % (A) 23 %; MCH 25.2 pg (25.0-35.0); MCHC 31.5 g/dL (31.0-37.0); MCV 79.9 fL (80.0-100.0); Microcytosis Slight; Monocytes # (A) 0.9 k/uL (0-1.0); Monocytes % (A) 7 %; Neutrophils # (A) 7.9 k/uL (1.3-7.7); Neutrophils % (A) 66 %; Platelet Count 833 k/uL (150-450); RBC 3.55 m/uL (3.80-5.40); RDW 18.7 % (11.5-15.5); WBC 12.1 k/uL (3.8-10.6)
[2022-08-02 17:42] LABS: ALT 14 U/L (4-34); AST 17 U/L (14-36); African American GFR (CKD) >90 (>60 ml/min/1.73 sqM); Albumin 3.1 g/dL (3.5-5.0); Alkaline Phosphatase 82 U/L (38-126); Anion Gap 9 mmol/L; Blood Urea Nitrogen 5 mg/dL (7-17); Calcium 8.4 mg/dL (8.4-10.2); Carbon Dioxide 21 mmol/L (22-30); Chloride 105 mmol/L (98-107); Glucose 89 mg/dL (74-99); Non-African American GFR(CKD) >90 (>60 ml/min/1.73 sqM); Potassium 4.1 mmol/L (3.5-5.1); Sodium 135 mmol/L (137-145); Total Bilirubin 0.3 mg/dL (0.2-1.3); Total Protein 6.1 g/dL (6.3-8.2)
[2022-08-02 18:31] VITALS: BP 131/94; PULSE 81; TEMP 97.9
== END 2022-08-02 18:30 | disposition home or self-care (01) ==
LOC: EC 14:43
DX: J45.901 Unspecified asthma with (acute) exacerbation (principal); N39.0 Urinary tract infection, site not specified; I10 Essential (primary) hypertension; E07.9 Disorder of thyroid, unspecified; F31.9 Bipolar disorder, unspecified; F41.9 Anxiety disorder, unspecified; F12.90 Cannabis use, unspecified, uncomplicated; F17.200 Nicotine dependence, unspecified, uncomplicated; Z79.890 Hormone replacement therapy; Z79.899 Other long term (current) drug therapy; Z88.0 Allergy status to penicillin; Z88.2 Allergy status to sulfonamides; Z88.8 Allergy status to other drugs, medicaments and biological substances; Z20.822 Contact with and (suspected) exposure to COVID-19
CPT/HCPCS: 36415; 94640; 87651; 80053; 83605; 85025; 87636; 71046; 99285; 96365; 96375 ×3; 96361 ×2; J2765; J2930; J0131; C9113

== ENCOUNTER 2022-09-07 19:42 | Emergency (ER) | payer OTHER ==
[2022-09-07] MEDS ORDERED: SODIUM CHLORIDE 0.9% 1,000 ML IV STA (20:32)
[2022-09-07] MEDS ORDERED: MORPHINE SULFATE 4 MG/ML SYRINGE IVP STA (20:35)
[2022-09-07] MEDS ORDERED: HYDROmorphone 0.5 MG/0.5 ML SYRINGE IVP STA (20:56)
[2022-09-07 21:00] LABS: Anisocytosis Slight; Basophils % (A) 0 %; Eosinophils # (A) 0.1 k/uL (0-0.7); Eosinophils % (A) 0 %; HCT 28.8 % (34.0-46.0); Hypochromasia Slight; Lymphocytes # (A) 3.2 k/uL (1.0-4.8); Lymphocytes % (A) 24 %; MCH 25.4 pg (25.0-35.0); MCHC 31.3 g/dL (31.0-37.0); Mean Platelet Volume 7.1; Microcytosis Slight; Monocytes # (A) 0.8 k/uL (0-1.0); Monocytes % (A) 6 %; Neutrophils # (A) 8.8 k/uL (1.3-7.7); Neutrophils % (A) 67 %; Platelet Count 662 k/uL (150-450); RBC 3.56 m/uL (3.80-5.40); RDW 19.2 % (11.5-15.5); WBC 13.2 k/uL (3.8-10.6)
[2022-09-07 21:06] LABS: ALT 16 U/L (4-34); AST 18 U/L (14-36); African American GFR (CKD) >90 (>60 ml/min/1.73 sqM); Albumin 3.7 g/dL (3.5-5.0); Alkaline Phosphatase 82 U/L (38-126); Anion Gap 11 mmol/L; Blood Urea Nitrogen 9 mg/dL (7-17); Calcium 8.7 mg/dL (8.4-10.2); Carbon Dioxide 17 mmol/L (22-30); Chloride 104 mmol/L (98-107); Glucose 87 mg/dL (74-99); Lipase 103 U/L (23-300); Non-African American GFR(CKD) >90 (>60 ml/min/1.73 sqM); Potassium 4.1 mmol/L (3.5-5.1); Sodium 132 mmol/L (137-145); Total Bilirubin 0.4 mg/dL (0.2-1.3); Total Protein 6.7 g/dL (6.3-8.2)
--- NOTE | 2022-09-07 21:23 | CT ---
EXAMINATION TYPE: CT abdomen pelvis w con CT DLP: 1872.2 mGycm, Automated exposure control for dose reduction was used. DATE OF EXAM: 09/07/2022 9:07 PM COMPARISON: CT abdomen pelvis most recent from 04/17/2022 CLINICAL INDICATION:Female, 37 years old with history of abdominal pain; Lower abdominal pain TECHNIQUE: Axial CT of the abdomen and pelvis. Sagittal and coronal reformats were created on a [employer] workstation. Contrast used:100 cc mL of Isovue 370 with IV Contrast, Oral contrast used: without Oral Contrast FINDINGS: LOWER CHEST: Unremarkable Motion limited exam. ABDOMEN LIVER: Unremarkable GALLBLADDER AND BILE DUCTS: Cholecystectomy clips are present. PANCREAS: Unremarkable. SPLEEN: Unremarkable. ADRENAL GLANDS: Unremarkable. KIDNEYS AND URETERS: No evidence of hydronephrosis or renal calculus. The ureters are unremarkable. PELVIS BLADDER: Unremarkable REPRODUCTIVE: Intrauterine identified. Fetus measures up to 8.1 cm in length. ABDOMEN & PELVIS STOMACH AND BOWEL: No evidence of bowel obstruction. Large amount stool seen within the colon. Partic ularly the right colon PERITONEUM/RETROPERITONEUM: No evidence of pneumoperitoneum or free fluid. VASCULATURE: No evidence of aortic aneurysm. MUSCULOSKELETAL: No acute osseous abnormalities LYMPH NODES: No gross evidence for lymphadenopathy. SOFT TISSUE/ABDOMINAL WALL: Unremarkable IMPRESSION: 1. Intrauterine with crown-rump length measuring up to 8.1 cm. Clinical correlation for pa tient's pain with . 2. No additional acute process within the abdomen or pelvis visualized.
[2022-09-07 22:29] VITALS: BP 129/88; PULSE 84; RESP 18; TEMP 97.9
--- NOTE | 2022-09-07 22:53 | ED ---
Abdominal Pain HPI - General Chief Complaint: Abdominal Pain Stated Complaint: ABD PAIN Time Seen by Provider: 09/07/22 19:55 Source: EMS Mode of arrival: EMS Limitations: no limitations - History of Present Illness Initial Comments: 37 year old female with past medical history of Crohn's disease, fibromyalgia who presents to the emergency department reporting generalized abdominal pain. States it feels consistent with her ulcerative colitis pain. She has been taking her home migraine medications for migraine and abdominal pain without any improvement in her symptoms. She denies dysuria, hematuria or difficulty voiding. Denies vaginal bleeding or discharge. Denies concern for as she is on the Depo shot. Last menstrual cycle was June 19. She denies diarrhea, constipation, black or bloody stools. No fevers. She does take pred nisone daily. No other alleviating, precipitating or modifying factors - Related Data Home Medications Medication Instructions Recorded Confirmed Levothyroxine Sodium [Synthroid] 137 mcg PO DAILY 08/07/18 06/23/21 Montelukast [Singulair] 10 mg PO DAILY 08/07/18 06/23/21 Balsalazide Disodium 2,250 mg PO TID 11/16/19 06/23/21 Lisinopril-Hctz 20-25 mg 2 tab PO DAILY 11/16/19 06/23/21 [Zestoretic 20-25] Famotidine [Pepcid] 20 mg PO BID 03/06/20 06/23/21 Simvastatin [Zocor] 20 mg PO HS 03/06/20 06/23/21 Divalproex [Depakote] 1,500 mg PO TID 07/14/20 06/23/21 Loratadine [Claritin] 10 mg PO DAILY 07/14/20 06/23/21 Gabapentin [Neurontin] 1,200 mg PO TID 10/01/20 06/23/21 Butalb/APAP/Caff 50-325-40Mg 1 tab PO TID PRN 11/18/20 06/23/21 [Fioricet 50-325-40] ondansetron HCL [Zofran] 8 mg PO Q12H PRN 11/18/20 06/23/21 Folic Acid 2 mg PO DAILY 02/06/21 06/23/21 PARoxetine HCL [Paxil] 60 mg PO DAILY 02/06/21 06/23/21 QUEtiapine FUMARATE [SEROquel] 600 mg PO HS 02/06/21 06/23/21 Dicyclomine [Bentyl] 10 mg PO ACHS 06/23/21 06/23/21 Ferrous Sulfate [Iron (65 MG 325 mg PO BID 06/23/21 06/23/21 Elemental)] Pantoprazole [Protonix] 40 mg PO DAILY 06/23/21 06/23/21 clonazePAM [KlonoPIN] 1 mg PO TID 06/23/21 06/23/21 oxyCODONE-APAP 10-325MG [Percocet 1 tab PO Q8HR PRN 06/23/21 06/23/21 10-325 mg] Previous Rx's Medication Instructions Recorded haloperidoL [Haldol] 1 mg PO BID #4 tab 06/04/20 Levofloxacin [Levaquin] 750 mg PO DAILY 4 Days #4 tab 06/24/21 Albuterol Inhaler [Ventolin Hfa 2 puff INHALATION TID #8 gm 08/02/22 Inhaler] Metoclopramide [Reglan] 10 mg PO TID PRN #15 tab 08/02/22 predniSONE 50 mg PO DAILY #5 tab 08/02/22 Allergies Allergy/AdvReac Type Severity Reaction Status Date / Time dicyclomine [From Bentyl] Allergy Severe Hallucinati Verified 08/02/22 14:44 ons granisetron HCl [From Kytril] Allergy Severe Anaphylaxis Verified 08/02/22 14:44 azithromycin Allergy Rash/Hives Verified 08/02/22 14:44 baclofen Allergy Rash/Hives Verified 08/02/22 14:44 butorphanol [From Stadol] Allergy Rash/Hives Verified 08/02/22 14:44 butorphanol tartrate Allergy Rash/Hives Verified 08/02/22 14:44 [From Stadol] Cephalosporins Allergy Rash/Hives Verified 08/02/22 14:44 cyclobenzaprine Allergy Unknown Verified 08/02/22 14:44 [From Flexeril] dicloxacillin Allergy Rash/Hives Verified 08/02/22 14:44 granisetron [From Kytril] Allergy Anaphylaxis Verified 08/02/22 14:44 ketorolac Allergy Rash/Hives Verified 08/02/22 14:44 ketorolac tromethamine Allergy Rash/Hives Verified 08/02/22 14:44 [From Toradol] meperidine Allergy Unknown Verified 08/02/22 14:44 meperidine HCl [From Demerol] Allergy Swelling Verified 08/02/22 14:44 pregabalin [From Lyrica] Allergy Unknown Verified 08/02/22 14:44 risperidone [From Risperdal] Allergy Dyspnea Verified 08/02/22 14:44 sulfamethoxazole Allergy Rash/Hives Verified 08/02/22 14:44 [From Bactrim] trimethoprim [From Bactrim] Allergy Rash/Hives Verified 08/02/22 14:44 methylprednisolone AdvReac Vomiting & Verified 08/02/22 14:44 [From Medrol] Headache Review of Systems ROS Statement: Those systems with pertinent positive or pertinent negative responses have been documented in the HPI. ROS Other: All systems not noted in ROS Statement are negative. Past Medical History Past Medical History: Asthma, Fibromyalgia, GERD/Reflux, Hypertension, Neurologic Disorder, Seizure Disorder, Thyroid Disorder Additional Past Medical History / Comment(s): crohns disease, diverticulosis, ibs, chronic colitis.,carpal tunnel solo wrists, anemia, chronic back pain , migraines, pinched nerves, Hx fall in June and broke old fracture above right ankle- wears boot., frequent nausea, last seizure 1 month ago., hx pancreatitis. Scoliosis History of Any Multi-Drug Resistant Organisms: MRSA Past Surgical History: Adenoidectomy, Appendectomy, Cholecystectomy, Orthopedic Surgery, Tonsillectomy Additional Past Surgical History / Comment(s): EGD/colonoscopy, right ankle surgery, broken nose surgery Past Anesthesia/Blood Transfusion Reactions: Previous Problems w/ Anesthesia, Postoperative Nausea & Vomiting (PONV) Additional Past Anesthesia/Blood Transfusion Reaction / Comment(s): hallucinations x1 Past Psychological History: Anxiety, Bipolar, Depression, PTSD Smoking Status: Current every day smoker Past Alcohol Use History: None Reported Past Drug Use History: Marijuana - Past Family History Father Family Medical History: Diabetes Mellitus, Hyperlipidemia Mother Family Medical History: Cancer, CVA/TIA, Deep Vein Thrombosis (DVT), Osteoarthritis (OA), Thyroid Disorder Additional Family Medical History / Comment(s): Extensive tattoos throughout body General Exam Limitations: no limitations General appearance: alert, in no apparent distress Head exam: Present: atraumatic, normocephalic, normal inspection Eye exam: Present: normal appearance, PERRL, EOMI. Absent: scleral icterus, conjunctival injection, periorbital swelling ENT exam: Present: normal exam, mucous membranes moist Neck exam: Present: normal inspection. Absent: tenderness, meningismus, lymphadenopathy Respiratory exam: Present: normal lung sounds bilaterally. Absent: respiratory distress, wheezes, rales, rhonchi, stridor Cardiovascular Exam: Present: regular rate, normal rhythm, normal heart sounds. Absent: systolic murmur, diastolic murmur, rubs, gallop, clicks GI/Abdominal exam: Present: soft, tenderness (Generalized), normal bowel sounds. Absent: distended, guarding, rebound, rigid Extremities exam: Present: normal inspection, full ROM, normal capillary refill. Absent: tenderness, pedal edema, joint swelling, calf tenderness Back exam: Present: normal inspection Neurological exam: Present: alert, oriented X3, CN II-XII intact Psychiatric exam: Present: normal affect, normal mood Skin exam: Present: warm, dry, intact, normal color. Absent: rash Course Vital Signs 09/07/22 19:52 Temperature 97.9 F Pulse Rate 84 Respiratory 18 Rate Blood Pressure 129/88 O2 Sat by Pulse 97 Oximetry Medical Decision Making - Medical Decision Making Was pt. sent in by a medical professional or institution (MELISSA Vargas, [employer], urgent care, hospital, or skilled nursing...) When possible be specific @ -No Did you speak to anyone other than the patient for history (EMS, parent, family, police, friend...)? What history was obtained from this source @ -Spoke with EMS who provided the patient with 100 mg of fentanyl and 4 mg of Zofran Did you review nursing and triage notes (agree or disagree)? Why? @ -I reviewed and agree with nursing and triage notes Were old charts reviewed (outside hosp., previous admission, EMS record, old EKG, old radiological studies, urgent care reports/EKG's, skilled nursing records)? Report findings @ -Old charts were reviewed. Patient has been here several times for same complaint Differential Diagnosis (chest pain, altered mental status, abdominal pain women, abdominal pain men, vaginal bleeding, weakness, fever, dyspnea, syncope, headache, dizziness, GI bleed, back pain, seizure, CVA, palpatations, mental health, musculoskeletal)? @ -Differential Abdominal Pain Women: Appendicitis, Cholecystitis, diverticulosis, ischemic bowel, pancreatitis, h epatitis, UTI, gastroenteritis, AAA, incarcerated hernia, bowel obstruction, constipation, inflammatory bowel, hepatitis, peptic ulcer disease, splenic infarction, perforated viscus, vulvitis, ovarian torsion, PID, kidney stone, placenta abruption, this is not meant to be an all-inclusive list EKG interpreted by me (3pts min.). @ -Not done X-rays interpreted by me (1pt min.). @ -None done CT interpreted by me (1pt min.). @ -Yes - CT demonstrates intrauterine . No active signs of diverticulitis U/S interpreted by me (1pt. min.). @ -Ultrasound interpreted by me and demonstrates intrauterine dating 14 weeks and 2 days. Heart rate of 147 What testing was considered but not performed or refused? (CT, X-rays, U/S, labs)? Why? @ -None What meds were considered but not given or refused? Why? @ -None Did you discuss the management of the patient with other professionals (professionals i.e. , PA, [employer], lab, RT, psych nurse, social work program coordinator, mortgage loan computation clerk, teacher, child support case officer, case sealer)? Give summary @ -No Was smoking cessation discussed for >3mins.? @ -No Was critical care preformed (if so, how long)? @ -No Were there social determinants of health that impacted care today? How? (Homelessness, low income, unemployed, alcoholism, drug addiction, transportation, low edu. Level, literacy, decrease access to med. care, long term, rehab)? @ -No Was there de-escalation of care discussed even if they declined (Discuss DNR or withdrawal of care, Hospice)? DNR status @ -No What co-morbidities impacted this encounter? (DM, HTN, Smoking, COPD, CAD, Cancer, CVA, ARF, Chemo, Hep., AIDS, mental health diagnosis, sleep apnea, morbid obesity)? @ -Diverticulitis, Crohn's Was patient admitted / discharged? Hospital course, mention meds given and route, prescriptions, significant lab abnormalities, going to OR and other pertinent info. @ -Upon arrival patient is placed in the hallway 10. A thorough history and physical exam was performed. Patient received fentanyl en route to the hos pital. She is repetitively asking for Dilaudid. Morphine was ordered however the patient states that this is nothing for her. Denies that she will take any other medications besides Dilaudid. She was given 0.5 mg. Laboratory studies were conducted. Patient does go for CT of her abdomen and pelvis. CT is performed as patient reports that she is not as she takes the Depo shot and is consenting to the study prior to urinalysis. CT demonstrates intrauterine . Patient extremely upset with this diagnosis. She was consenting to ultrasound which demonstrates that she is 14 weeks, 2 days with a heart rate of 147. Patient is continuing to ask for Dilaudid. Informed her th at I have no identifiable reason for her intense abdominal pain however I did recommend admission as she is currently continued pain. Patient refuses admission. Continues to request Dilaudid. I informed her that she would be leaving AGAINST MEDICAL ADVICE for which she was agreeable. Patient is of sound mind and capable of making her own decisions. Mother does come pick the patient up. She needs to follow up with [employer] [employer]. The patient needs to discontinue several of her home medications. She also needs to start a vitamin. She understood this. Asked to return for any new or worsening symptoms. Patient discharged against medical advice. Undiagnosed new problem with uncertain prognosis? @ -yes Drug Therapy requiring intensive monitoring for toxicity (Heparin, Nitro, Insulin, Cardizem)? @ -No Were any procedures done? @ -No Diagnosis/symptom? @ -Acute abdominal pain, second trimester Acute, or Chronic, or Acute on Chronic? @ -acute on chronic Uncomplicated (without systemic symptoms) or Complicated (systemic symptoms)? @ -Complicated Side effects of treatment? @ -No Exacerbation, Progression, or Severe Exacerbation? @ -No Poses a threat to life or bodily function? How? (Chest pain, USA, AR, pneumonia, PE, COPD, DKA, ARF, appy, cholecystitis, CVA, Diverticulitis, Homicidal, Suicidal, threat to staff... and all critical care pts) @ -No - Lab Data Result diagrams: 09/07/22 19:50 09/07/22 19:50 Lab Results 09/07/22 09/07/22 09/07/22 Range/Units 19:50 19:50 19:50 WBC 13.2 H (3.8-10.6) k/uL RBC 3.56 L (3.80-5.40) m/uL Hgb 9.0 L (11.4-16.0) gm/dL Hct 28.8 L (34.0-46.0) % MCV 81.0 (80.0-100.0) fL MCH 25.4 (25.0-35.0) pg MCHC 31.3 (31.0-37.0) g/dL RDW 19.2 H (11.5-15.5) % Plt Count 662 H (150-450) k/uL MPV 7.1 Neutrophils % 67 % Lymphocytes % 24 % Monocytes % 6 % Eosinophils % 0 % Basophils % 0 % Neutrophils # 8.8 H (1.3-7.7) k/uL Lymphocytes # 3.2 (1.0-4.8) k/uL Monocytes # 0.8 (0-1.0) k/uL Eosinophils # 0.1 (0-0.7) k/uL Basophils # 0.0 (0-0.2) k/uL Hypochromasia Slight Anisocytosis Slight Microcytosis Slight Sodium 132 L (137-145) mmol/L Potassium 4.1 (3.5-5.1) mmol/L Chloride 104 (98-107) mmol/L Carbon Dioxide 17 L (22-30) mmol/L Anion Gap 11 mmol/L BUN 9 (7-17) mg/dL Creatinine 0.54 (0.52-1.04) mg/dL Est GFR (CKD-EPI)AfAm >90 (>60 ml/min/1.73 sqM) Est GFR (CKD-EPI)NonAf >90 (>60 ml/min/1.73 sqM) Glucose 87 (74-99) mg/dL Plasma Lactic Acid Jeremy 1.2 (0.7-2.0) mmol/L Calcium 8.7 (8.4-10.2) mg/dL Total Bilirubin 0.4 (0.2-1.3) mg/dL AST 18 (14-36) U/L ALT 16 (4-34) U/L Alkaline Phosphatase 82 (38-126) U/L Total Protein 6.7 (6.3-8.2) g/dL Albumin 3.7 (3.5-5.0) g/dL Lipase 103 (23-300) U/L Serum Alcohol mg/dL 09/07/22 Range/Units 21:25 WBC (3.8-10.6) k/uL RBC (3.80-5.40) m/uL Hgb (11.4-16.0) gm/dL Hct (34.0-46.0) % MCV (80.0-100.0) fL MCH (25.0-35.0) pg MCHC (31.0-37.0) g/dL RDW (11.5-15.5) % Plt Count (150-450) k/uL MPV Neutrophils % % Lymphocytes % % Monocytes % % Eosinophils % % Basophils % % Neutrophils # (1.3-7.7) k/uL Lymphocytes # (1.0-4.8) k/uL Monocytes # (0-1.0) k/uL Eosinophils # (0-0.7) k/uL Basophils # (0-0.2) k/uL Hypochromasia Anisocytosis Microcytosis Sodium (137-145) mmol/L Potassium (3.5-5.1) mmol/L Chloride (98-107) mmol/L Carbon Dioxide (22-30) mmol/L Anion Gap mmol/L BUN (7-17) mg/dL Creatinine (0.52-1.04) mg/dL Est GFR (CKD-EPI)AfAm (>60 ml/min/1.73 sqM) Est GFR (CKD-EPI)NonAf (>60 ml/min/1.73 sqM) Glucose (74-99) mg/dL Plasma Lactic Acid Jeremy (0.7-2.0) mmol/L Calcium (8.4-10.2) mg/dL Total Bilirubin (0.2-1.3) mg/dL AST (14-36) U/L ALT (4-34) U/L Alkaline Phosphatase (38-126) U/L Total Protein (6.3-8.2) g/dL Albumin (3.5-5.0) g/dL Lipase (23-300) U/L Serum Alcohol <10 mg/dL Disposition Clinical Impression: Second trimester , Abdominal pain, History of Crohn's disease Disposition: LEFT AGAINST MEDICAL ADVICE Condition: Serious Additional Instructions: Due to your continued pain, I recommended admission. You are leaving AGAINST MEDICAL ADVICE. You need to start taking a vitamin and follow up with the [employer] [employer] Is patient prescribed a controlled substance at d/c from ED?: No Referrals: Joan Meeks MD [Primary Care Provider] - 1-2 days Time of Disposition: 00:18
--- NOTE | 2022-09-07 23:23 | US ---
EXAMINATION TYPE: Transabdominal DATE OF EXAM: 09/07/2022 11:12 PM COMPARISON: CT: Today CLINICAL INDICATION: Female, 37 years old with history of ; pt just found out about pg today on CT scan. LMP unknown, pt states "maybe June". EXAM PERFORMED: Transabdominal (TA) EXAM MEASUREMENTS: GESTATIONAL AGE / DATING Physician Established: Not yet established Dates by LMP: LMP unknown Dates by First Scan: No previous this is first scan Dates by Current Scan for: (14 weeks/2 days) EDC: 03/06/23 MATERNAL ANATOMY Uterus: 14.6 x 10.1 x 7.8cm Right Ovary: 3.7 x 2.5 x 2.1cm Left Ovary: 3.1 x 3.0 x 2.1cm Post CDS / Adnexa: wnl Presence of free fluid: No Presence of corpus luteal cyst: No Presence of subchorionic bleed: No GESTATION / SURVEY CRL: 8.37cm (14 weeks/2 days) Yolk Sac (normal less than 6mm): Not seen. Placenta forming Heart Rate: 147 bpm Rhythm: Normal IUP: Viable IUP Date of LMP: Unknown Beta HcG (if available): N/A IMPRESSION: Single live intrauterine gestation with ultrasound age of 14 weeks 2 days. Findings similar to CT mine e .
== END 2022-09-08 00:36 | disposition left against medical advice (07) ==
LOC: EC 19:42
DX: O26.892 Other specified pregnancy related conditions, second trimester (principal); R10.9 Unspecified abdominal pain; Z87.19 Personal history of other diseases of the digestive system; O99.512 Diseases of the respiratory system complicating pregnancy, second trimester; J45.909 Unspecified asthma, uncomplicated; K21.9 Gastro-esophageal reflux disease without esophagitis; O99.352 Diseases of the nervous system complicating pregnancy, second trimester; I10 Essential (primary) hypertension; O99.342 Other mental disorders complicating pregnancy, second trimester; F41.9 Anxiety disorder, unspecified; F31.9 Bipolar disorder, unspecified; O99.282 Endocrine, nutritional and metabolic diseases complicating pregnancy, second trimester; E07.9 Disorder of thyroid, unspecified; O99.332 Smoking (tobacco) complicating pregnancy, second trimester; F17.200 Nicotine dependence, unspecified, uncomplicated; Z88.1 Allergy status to other antibiotic agents; Z88.2 Allergy status to sulfonamides; Z88.5 Allergy status to narcotic agent; Z88.0 Allergy status to penicillin; Z88.8 Allergy status to other drugs, medicaments and biological substances; Z79.890 Hormone replacement therapy; Z79.899 Other long term (current) drug therapy; Z53.29 Procedure and treatment not carried out because of patient's decision for other reasons; Z3A.14 14 weeks gestation of pregnancy
CPT/HCPCS: 80053; 83605; 83690; 85025; 76801; 74177; 99285; 96374; 96361; G0480; J1170; Q9967; 36415; 80320

== ENCOUNTER 2022-09-11 16:46 | Emergency (ER) | payer OTHER ==
[2022-09-11] MEDS ORDERED: ACETAMINOPHEN IV (For NPO) 1,000 MG in EMPTY BAG 1 BAG IVPB STA (16:55)
[2022-09-11] MEDS ORDERED: diphenhydrAMINE 50 MG/ML 1 ML VIAL IVP STA (16:55)
[2022-09-11] MEDS ORDERED: SODIUM CHLORIDE 0.9% 1,000 ML IV ONE (16:55)
--- NOTE | 2022-09-11 16:58 | ED ---
Abdominal Pain HPI - General Chief Complaint: Abdominal Pain Stated Complaint: Abd Pain, 18 wks Time Seen by Provider: 09/11/22 16:50 Source: EMS, RN notes reviewed, old records reviewed Mode of arrival: EMS Limitations: no limitations - History of Present Illness Initial Comments: This is a 37-year-old female to the emergency department for evaluation today. Patient recently found out she was . Patient is having severe abdominal pain. Similar to the pain she had when she was in the hospital a few days 1 found out she was she did have imaging N which was found to be normal. Patient's ultrasound was normal showing normal baby. Patient has history of mental health and chronic pain MD Complaint: abdominal pain -: hour(s) Migration to: no migration, suprapubic Severity: severe Severity scale (1-10): 10 Quality: stabbing Consistency: constant Improves With: nothing Worsens With: nothing Associated Symptoms: nausea, vomiting Treatments Prior to Arrival: other (0) - Related Data Home Medications Medication Instructions Recorded Confirmed Balsalazide Disodium 2,250 mg PO TID 11/16/19 09/11/22 Lisinopril-Hctz 20-25 mg 2 tab PO DAILY 11/16/19 09/11/22 [Zestoretic 20-25] Famotidine [Pepcid] 20 mg PO BID 03/06/20 09/11/22 Simvastatin [Zocor] 20 mg PO HS 03/06/20 09/11/22 Divalproex [Depakote] 1,500 mg PO TID 07/14/20 09/11/22 Loratadine [Claritin] 10 mg PO DAILY 07/14/20 09/11/22 Gabapentin [Neurontin] 1,200 mg PO TID 10/01/20 09/11/22 Butalb/APAP/Caff 50-325-40Mg 1 tab PO Q6H PRN 11/18/20 09/11/22 [Fioricet 50-325-40] ondansetron HCL [Zofran] 8 mg PO TID PRN 11/18/20 09/11/22 Folic Acid 2 mg PO DAILY 02/06/21 09/11/22 PARoxetine HCL [Paxil] 60 mg PO DAILY 02/06/21 09/11/22 Dicyclomine [Bentyl] 10 mg PO ACHS PRN 06/23/21 09/11/22 Ferrous Sulfate [Iron (65 MG 325 mg PO BID 06/23/21 09/11/22 Elemental)] oxyCODONE-APAP 10-325MG [Percocet 1 tab PO QID PRN 06/23/21 09/11/22 10-325 mg] ALPRAZolam [Xanax] 2 mg PO TID 09/11/22 09/11/22 Albuterol Inhaler [Ventolin Hfa 2 puff INHALATION RT-QID PRN 09/11/22 09/11/22 Inhaler] Levothyroxine Sodium [Synthroid] 150 mcg PO DAILY 09/11/22 09/11/22 Omeprazole 40 mg PO BID 09/11/22 09/11/22 Prochlorperazine [Compazine] 10 mg PO TID PRN 09/11/22 09/11/22 QUEtiapine [SEROquel] 800 mg PO HS 09/11/22 09/11/22 Previous Rx's Medication Instructions Recorded Metoclopramide [Reglan] 10 mg PO TID PRN #15 tab 08/02/22 Allergies Allergy/AdvReac Type Severity Reaction Status Date / Time granisetron HCl [From Kytril] Allergy Severe Anaphylaxis Verified 09/11/22 16:52 azithromycin Allergy Rash/Hives Verified 09/11/22 16:52 baclofen Allergy Rash/Hives Verified 09/11/22 16:52 butorphanol [From Stadol] Allergy Rash/Hives Verified 09/11/22 16:52 butorphanol tartrate Allergy Rash/Hives Verified 09/11/22 16:52 [From Stadol] Cephalosporins Allergy Rash/Hives Verified 09/11/22 16:52 cyclobenzaprine Allergy Unknown Verified 09/11/22 16:52 [From Flexeril] dicloxacillin Allergy Rash/Hives Verified 09/11/22 16:52 granisetron [From Kytril] Allergy Anaphylaxis Verified 09/11/22 16:52 ketorolac Allergy Rash/Hives Verified 09/11/22 16:52 ketorolac tromethamine Allergy Rash/Hives Verified 09/11/22 16:52 [From Toradol] meperidine Allergy Unknown Verified 09/11/22 16:52 meperidine HCl [From Demerol] Allergy Swelling Verified 09/11/22 16:52 pregabalin [From Lyrica] Allergy Unknown Verified 09/11/22 16:52 risperidone [From Risperdal] Allergy Dyspnea Verified 09/11/22 16:52 sulfamethoxazole Allergy Rash/Hives Verified 09/11/22 16:52 [From Bactrim] trimethoprim [From Bactrim] Allergy Rash/Hives Verified 09/11/22 16:52 haloperidol [From Haldol] AdvReac Aggitation, Verified 09/11/22 17:19 can't sit still methylprednisolone AdvReac Vomiting & Verified 09/11/22 16:52 [From Medrol] Headache Review of Systems ROS Statement: Those systems with pertinent positive or pertinent negative responses have been documented in the HPI. ROS Other: All systems not noted in ROS Statement are negative. Past Medical History Past Medical History: Asthma, Fibromyalgia, GERD/Reflux, Hypertension, Neurologic Disorder, Seizure Disorder, Thyroid Disorder Additional Past Medical History / Comment(s): crohns disease, diverticulosis, ibs, chronic colitis.,carpal tunnel solo wrists, anemia, chronic back pain , migraines, pinched nerves, Hx fall in June and broke old fracture above right ankle- wears boot., frequent nausea, last seizure 1 month ago., hx pancreatitis. Scoliosis History of Any Multi-Drug Resistant Organisms: MRSA Past Surgical History: Adenoidectomy, Appendectomy, Cholecystectomy, Orthopedic Surgery, Tonsillectomy Additional Past Surgical History / Comment(s): EGD/colonoscopy, right ankle surgery, broken nose surgery Past Anesthesia/Blood Transfusion Reactions: Previous Problems w/ Anesthesia, Postoperative Nausea & Vomiting (PONV) Additional Past Anesthesia/Blood Transfusion Reaction / Comment(s): hallucinations x1 Past Psychological History: Anxiety, Bipolar, Depression, PTSD Smoking Status: Current every day smoker Past Alcohol Use History: None Reported Past Drug Use History: Marijuana - Past Family History Father Family Medical History: Diabetes Mellitus, Hyperlipidemia Mother Family Medical History: Cancer, CVA/TIA, Deep Vein Thrombosis (DVT), Osteoarthritis (OA), Thyroid Disorder Additional Family Medical History / Comment(s): Extensive tattoos throughout body General Exam Limitations: no limitations General appearance: alert, in no apparent distress Head exam: Present: atraumatic, normocephalic, normal inspection Eye exam: Present: normal appearance, PERRL, EOMI. Absent: scleral icterus, conjunctival injection, periorbital swelling ENT exam: Present: normal exam, mucous membranes moist Neck exam: Present: normal inspection. Absent: tenderness, meningismus, lymphadenopathy Respiratory exam: Present: normal lung sounds bilaterally. Absent: respiratory distress, wheezes, rales, rhonchi, stridor Cardiovascular Exam: Present: regular rate, normal rhythm, normal heart sounds. Absent: systolic murmur, diastolic murmur, rubs, gallop, clicks GI/Abdominal exam: Present: soft, normal bowel sounds. Absent: distended, tenderness, guarding, rebound, rigid Extremities exam: Present: normal inspection, full ROM, normal capillary refill. Absent: tenderness, pedal edema, joint swelling, calf tenderness Back exam: Present: normal inspection Neurological exam: Present: alert, oriented X3, CN II-XII intact Psychiatric exam: Present: normal affect, normal mood Skin exam: Present: warm, dry, intact, normal color. Absent: rash Course Vital Signs 09/11/22 16:47 Temperature 97.6 F Pulse Rate 92 Respiratory 24 Rate Blood Pressure 124/103 O2 Sat by Pulse 97 Oximetry - Reevaluation(s) Reevaluation #1: 09/11/22 17:59 Medical records reviewed Reevaluation #2: 09/11/22 17:59 Patient has difficult to control pain here in the ER Reevaluation #3: 09/11/22 17:59 Patient informed of results questions answered Reevaluation #4: 09/11/22 16:56 Was pt. sent in by a medical professional or institution? @ -no Did you speak to anyone other than the patient for history? @ -no Did you review nursing and triage notes? @ -agree Were old charts reviewed? @ -EMS patient's ER visit from 5 days ago showing positive at 14 weeks is reviewed Differential Diagnosis? @ -prior EKG interpreted by me (3pts min.)? @ -no X-rays interpreted by me (1pt min.)? @ -no CT interpreted by me (1pt min.)? @ -no U/S interpreted by me (1pt. min.)? @ -no What testing was considered but not performed? (CT, X-rays, U/S, labs)? Why? @ -no What meds were considered but not given? Why? @ -no Did you discuss the management of the patient with other professionals? @ -no Did you reconcile home meds? @ -no Was smoking cessation discussed for >3mins.? @ -no Was critical care preformed (if so, how long)? @ -no Were there social determinants of health that impacted care today? How? (Homelessness, low income, unemployed, alcoholism, drug addiction, transportation, low edu. Level, literacy, decrease access to med. care, care home, rehab)? @ -no Was there de-escalation of care discussed even if they declined? (Discuss DNR or withdrawal of care, Hospice)? @ -no What co-morbidities impacted this encounter? (DM, HTN, Smoking, COPD, CAD, Cancer, CVA, Hep., AIDS, mental health diagnosis, sleep apnea, morbid obesity)? @ -none Was patient admitted / discharged? @ -37-year-old female to the emergency department with history of mental health and pain control issues. Patient comes in for abdominal pain and , symptoms are improving she can be discharged home Discharge Undiagnosed new problem with uncertain prognosis? @ -no Drug Therapy requiring intensive monitoring for toxicity (Heparin, Nitro, Insulin, Cardizem)? @ -no Were any procedures done? @ -no Diagnosis/symptom? @ -Abdominal pain and Acute, or Chronic, or Acute on Chronic? @ -no Uncomplicated (without systemic symptoms) or Complicated (systemic symptoms)? @ -uncomplicated Side effects of treatment? @ -no Exacerbation, Progression, or Severe Exacerbation] @ -no Poses a threat to life or bodily function? @ -Yes if ectopic versus abruption Reevaluation #5: 09/11/22 17:59 ADifferential Abdominal Pain Women: Appendicitis, Cholecystitis, diverticulosis, ischemic bowel, pancreatitis, hepatitis, UTI, gastroenteritis, AAA, incarcerated hernia, bowel obstruction, constipation, inflammatory bowel, hepatitis, peptic ulcer disease, splenic inf arction, perforated viscus, vulvitis, ovarian torsion, PID, kidney stone, placenta abruption, this is not meant to be an all-inclusive list Medical Decision Making - Medical Decision Making 37 female with abdominal pain and at 14 weeks, no acute findings here in the ER urinary symptoms patient can be discharged home - Lab Data Result diagrams: 09/11/22 16:58 06/09/23 16:58 Lab Results 09/11/22 09/11/22 09/11/22 Range/Units 16:58 16:58 16:58 WBC 10.3 (3.8-10.6) k/uL RBC 3.51 L (3.80-5.40) m/uL Hgb 9.0 L (11.4-16.0) gm/dL Hct 28.4 L (34.0-46.0) % MCV 80.7 (80.0-100.0) fL MCH 25.6 (25.0-35.0) pg MCHC 31.7 (31.0-37.0) g/dL RDW 19.2 H (11.5-15.5) % Plt Count 653 H (150-450) k/uL MPV 7.2 Neutrophils % 56 % Lymphocytes % 35 % Monocytes % 6 % Eosinophils % 1 % Basophils % 0 % Neutrophils # 5.8 (1.3-7.7) k/uL Lymphocytes # 3.6 (1.0-4.8) k/uL Monocytes # 0.6 (0-1.0) k/uL Eosinophils # 0.1 (0-0.7) k/uL Basophils # 0.0 (0-0.2) k/uL Hypochromasia Slight Anisocytosis Slight Microcytosis Slight PT 9.7 (9.0-12.0) sec INR 0.9 (<1.2) APTT 23.7 (22.0-30.0) sec Sodium 134 L (137-145) mmol/L Potassium 4.1 (3.5-5.1) mmol/L Chloride 107 (98-107) mmol/L Carbon Dioxide 16 L (22-30) mmol/L Anion Gap 11 mmol/L BUN 7 (7-17) mg/dL Creatinine 0.62 (0.52-1.04) mg/dL Est GFR (CKD-EPI)AfAm >90 (>60 ml/min/1.73 sqM) Est GFR (CKD-EPI)NonAf >90 (>60 ml/min/1.73 sqM) Glucose 82 (74-99) mg/dL Calcium 8.8 (8.4-10.2) mg/dL Total Bilirubin 0.3 (0.2-1.3) mg/dL AST 18 (14-36) U/L ALT 12 (4-34) U/L Alkaline Phosphatase 76 (38-126) U/L Total Protein 6.9 (6.3-8.2) g/dL Albumin 3.8 (3.5-5.0) g/dL Blood Type Blood Type Recheck Bld Type Recheck Status Antibody Screen Spec Expiration Date 09/11/22 Range/Units 16:58 WBC (3.8-10.6) k/uL RBC (3.80-5.40) m/uL Hgb (11.4-16.0) gm/dL Hct (34.0-46.0) % MCV (80.0-100.0) fL MCH (25.0-35.0) pg MCHC (31.0-37.0) g/dL RDW (11.5-15.5) % Plt Count (150-450) k/uL MPV Neutrophils % % Lymphocytes % % Monocytes % % Eosinophils % % Basophils % % Neutrophils # (1.3-7.7) k/uL Lymphocytes # (1.0-4.8) k/uL Monocytes # (0-1.0) k/uL Eosinophils # (0-0.7) k/uL Basophils # (0-0.2) k/uL Hypochromasia Anisocytosis Microcytosis PT (9.0-12.0) sec INR (<1.2) APTT (22.0-30.0) sec Sodium (137-145) mmol/L Potassium (3.5-5.1) mmol/L Chloride (98-107) mmol/L Carbon Dioxide (22-30) mmol/L Anion Gap mmol/L BUN (7-17) mg/dL Creatinine (0.52-1.04) mg/dL Est GFR (CKD-EPI)AfAm (>60 ml/min/1.73 sqM) Est GFR (CKD-EPI)NonAf (>60 ml/min/1.73 sqM) Glucose (74-99) mg/dL Calcium (8.4-10.2) mg/dL Total Bilirubin (0.2-1.3) mg/dL AST (14-36) U/L ALT (4-34) U/L Alkaline Phosphatase (38-126) U/L Total Protein (6.3-8.2) g/dL Albumin (3.5-5.0) g/dL Blood Type O Negative Blood Type Recheck O Neg Bld Type Recheck Status No Antibody Screen NEGATIVE Spec Expiration Date 09/14/2022 2168 - Radiology Data Radiology results: report reviewed (Patient does have heart tones done here in the ER which are positive) Disposition Clinical Impression: Second trimester , Abdominal pain Disposition: HOME SELF-CARE Condition: Good Instructions (If sedation given, give patient instructions): Abdominal Pain in (ED) Is patient prescribed a controlled substance at d/c from ED?: No Referrals: Joan Meeks MD [Primary Care Provider] - 1-2 days Time of Disposition: 19:00
[2022-09-11 17:14] LABS: Anisocytosis Slight; Basophils % (A) 0 %; Eosinophils # (A) 0.1 k/uL (0-0.7); Eosinophils % (A) 1 %; HCT 28.4 % (34.0-46.0); Hypochromasia Slight; Lymphocytes # (A) 3.6 k/uL (1.0-4.8); Lymphocytes % (A) 35 %; MCH 25.6 pg (25.0-35.0); MCHC 31.7 g/dL (31.0-37.0); MCV 80.7 fL (80.0-100.0); Mean Platelet Volume 7.2; Microcytosis Slight; Monocytes # (A) 0.6 k/uL (0-1.0); Monocytes % (A) 6 %; Neutrophils # (A) 5.8 k/uL (1.3-7.7); Neutrophils % (A) 56 %; Platelet Count 653 k/uL (150-450); RBC 3.51 m/uL (3.80-5.40); RDW 19.2 % (11.5-15.5); WBC 10.3 k/uL (3.8-10.6)
[2022-09-11 17:24] LABS: ALT 12 U/L (4-34); AST 18 U/L (14-36); African American GFR (CKD) >90 (>60 ml/min/1.73 sqM); Albumin 3.8 g/dL (3.5-5.0); Alkaline Phosphatase 76 U/L (38-126); Anion Gap 11 mmol/L; Blood Urea Nitrogen 7 mg/dL (7-17); Calcium 8.8 mg/dL (8.4-10.2); Carbon Dioxide 16 mmol/L (22-30); Chloride 107 mmol/L (98-107); Glucose 82 mg/dL (74-99); Non-African American GFR(CKD) >90 (>60 ml/min/1.73 sqM); Potassium 4.1 mmol/L (3.5-5.1); Sodium 134 mmol/L (137-145); Total Bilirubin 0.3 mg/dL (0.2-1.3); Total Protein 6.9 g/dL (6.3-8.2)
[2022-09-11 17:27] LABS: INR 0.9 (<1.2); Partial Thromboplastin Time 23.7 sec (22.0-30.0); Prothrombin Time 9.7 sec (9.0-12.0)
[2022-09-11] MEDS ORDERED: BUTORPHANOL 2 MG/ML 1 ML VIAL IV STA (17:29)
[2022-09-11] MEDS ORDERED: NALBUPHINE 10 MG/ML (10 ML MDV) IV STA (17:40)
[2022-09-11 19:14] LABS: Appearance,Urine Clear (Clear); Bilirubin,Urine Negative (Negative); Blood,Urine Trace (Negative); Color,Urine Yellow; Glucose,Urine (UA) Negative (Negative); Ketones,Urine Negative (Negative); Leukocyte Esterase,Urine Small (Negative); Mucus,Urine Rare /hpf; Nitrite,Urine Negative (Negative); Protein,Urine Trace (Negative); RBC,Urine 1 /hpf (0-5); Specific Gravity,Urine 1.017 (1.001-1.035); Squamous Epithelial Cell,Urine 2 /hpf (0-4); Urobilinogen,Urine <2.0 mg/dL (<2.0); WBC,Urine 18 /hpf (0-5)
[2022-09-11 19:40] VITALS: BP 124/78; PULSE 88; RESP 16; TEMP 97.9
== END 2022-09-11 19:39 | disposition home or self-care (01) ==
LOC: EC 16:46
DX: O26.892 Other specified pregnancy related conditions, second trimester (principal); O10.912 Unspecified pre-existing hypertension complicating pregnancy, second trimester; O99.322 Drug use complicating pregnancy, second trimester; O99.332 Smoking (tobacco) complicating pregnancy, second trimester; O99.342 Other mental disorders complicating pregnancy, second trimester; O99.352 Diseases of the nervous system complicating pregnancy, second trimester; O99.512 Diseases of the respiratory system complicating pregnancy, second trimester; O99.612 Diseases of the digestive system complicating pregnancy, second trimester; F31.9 Bipolar disorder, unspecified; F41.9 Anxiety disorder, unspecified; J45.909 Unspecified asthma, uncomplicated; K21.9 Gastro-esophageal reflux disease without esophagitis; F17.200 Nicotine dependence, unspecified, uncomplicated; Z79.899 Other long term (current) drug therapy; Z88.0 Allergy status to penicillin; Z88.1 Allergy status to other antibiotic agents; Z88.2 Allergy status to sulfonamides; Z88.5 Allergy status to narcotic agent; Z88.8 Allergy status to other drugs, medicaments and biological substances; Z3A.18 18 weeks gestation of pregnancy
CPT/HCPCS: 36415; 86900; 86901; 80053; 85025; 85610; 85730; 86850; 81001; 99284; 96365; 96375 ×2; 96361; J1200; J2300; J0131

== ENCOUNTER 2023-03-05 16:43 | Inpatient (IN) | payer OTHER ==
[2023-03-05] MEDS ORDERED: SODIUM CHLORIDE 0.9% 1,000 ML IV STA (16:51)
[2023-03-05] MEDS ORDERED: IPRATROPIUM-ALBUTEROL 3 ML NEB INHALATION STA ×2 (16:51→20:23)
[2023-03-05] MEDS ORDERED: SODIUM CHLORIDE 0.9% 500 ML 500 ML IV STA (16:51)
--- NOTE | 2023-03-05 16:51 | ED ---
SOB HPI - General Chief Complaint: Shortness of Breath Stated Complaint: SOB Time Seen by Provider: 03/05/23 16:51 Source: patient, RN notes reviewed, old records reviewed Mode of arrival: EMS Limitations: altered mental status, physical limitation - History of Present Illness Initial Comments: This is a 38-year-old female ER today. Patient still has significant shortness of breath here in the ER was found to be profoundly hypoxic. Patient has had i ssues with her breathing with prior hospital admissions especially this time of year. Patient states she was recently told she had some sort of alternative pneumonia but unsure of cause during a recent hospitalization. Patient has history of Crohn's disease remote history of substance abuse and alcoholism. Patient does have concern for drug abuse in the past. Patient denying any recent drug use or abuse. No fevers cough or congestion, this does feel like prior episodes of difficulty breathing MD Complaint: shortness of breath, cough, "asthma attack", anxiety -: unknown Severity: severe Severity scale (1-10): 9 Consistency: constant Improves With: nothing Worsens With: nothing Known History Of: COPD, asthma, congestive heart failure, recurrent pneumonia, aspiration pneumonia Context: recent URI, choking/aspiration, anxiety, recent illness Associated Symptoms: denies other symptoms - Related Data Home Medications Medication Instructions Recorded Confirmed Famotidine [Pepcid] 20 mg PO BID 03/06/20 03/05/23 Loratadine [Claritin] 10 mg PO DAILY 07/14/20 03/05/23 Gabapentin [Neurontin] 1,200 mg PO TID 10/01/20 03/06/23 Butalb/APAP/Caff 50-325-40Mg 1 tab PO Q6H PRN 11/18/20 03/05/23 [Fioricet 50-325-40] Folic Acid 1 mg PO DAILY 02/06/21 03/05/23 Albuterol Inhaler [Ventolin Hfa 2 puff INHALATION RT-Q6H PRN 09/11/22 03/05/23 Inhaler] Omeprazole 40 mg PO BID 09/11/22 03/06/23 Prochlorperazine [Compazine] 10 mg PO TID PRN 09/11/22 03/05/23 Buprenorphine HCl/Naloxone HCl 1 film SL TID 03/05/23 03/05/23 [Suboxone 8 mg-2 mg Sl Film] DULoxetine HCL [Cymbalta] 60 mg PO DAILY 03/05/23 03/05/23 Diclofenac Sodium Gel [Voltaren 1% 2 gm TOPICAL QID 03/05/23 03/05/23 Gel] Hydrocortisone Cream 1 applic TOPICAL BID 03/05/23 03/05/23 [Hydrocortisone 2.5% Cream] Ibuprofen [Motrin] 600 mg PO Q6H PRN 03/05/23 03/05/23 Levothyroxine Sodium [Synthroid] 175 mcg PO DAILY 03/05/23 03/06/23 Magnesium Oxide [Mag-Ox] 400 mg PO BID 03/05/23 03/05/23 Montelukast [Singulair] 10 mg PO DAILY 03/05/23 03/05/23 NIFEdipine XL [Procardia XL] 60 mg PO DAILY 03/05/23 03/05/23 Hyt-Admp-Dxrcz Acid 1 cap PO DAILY 03/05/23 03/05/23 [-U Capsule (formulary)] QUEtiapine [SEROquel] 200 mg PO HS 03/05/23 03/05/23 clonazePAM [KlonoPIN] 0.5 mg PO BID 03/05/23 03/05/23 Acetaminophen Tab [Tylenol Tab] 1,000 mg PO Q6HR PRN 03/06/23 03/06/23 Ergocalciferol [Vitamin D2 (1250 1,250 mcg PO WEEKLY 03/06/23 03/06/23 Mcg = 78042 Iu)] Lidocaine 5% Oint [Xylocaine 5% 1 applic TOPICAL TID PRN 03/06/23 03/06/23 Oint] Ondansetron Odt [Zofran Odt] 8 mg PO BID PRN 03/06/23 03/06/23 PARoxetine HCL [Paxil] 40 mg PO DAILY 03/06/23 03/06/23 Slow Release Iron 45mg 1 tab PO DAILY 03/06/23 03/06/23 hydroCHLOROthiazide [Hydrodiuril] 25 mg PO DAILY 03/06/23 03/06/23 levETIRAcetam [Keppra] 500 mg PO BID 03/06/23 03/06/23 predniSONE See Taper PO DIRECTED 03/06/23 03/06/23 Previous Rx's Medication Instructions Recorded Metoclopramide [Reglan] 10 mg PO TID PRN #15 tab 08/02/22 Allergies Allergy/AdvReac Type Severity Reaction Status Date / Time granisetron HCl [From Kytril] Allergy Severe Anaphylaxis Verified 03/05/23 16:46 azithromycin Allergy Rash/Hives Verified 03/05/23 16:46 baclofen Allergy Rash/Hives Verified 03/05/23 16:46 butorphanol [From Stadol] Allergy Rash/Hives Verified 03/05/23 16:46 butorphanol tartrate Allergy Rash/Hives Verified 03/05/23 16:46 [From Stadol] Cephalosporins Allergy Rash/Hives Verified 03/05/23 16:46 cyclobenzaprine Allergy Unknown Verified 03/05/23 16:46 [From Flexeril] dicloxacillin Allergy Rash/Hives Verified 03/05/23 16:46 granisetron [From Kytril] Allergy Anaphylaxis Verified 03/05/23 16:46 ketorolac Allergy Rash/Hives Verified 03/05/23 16:46 ketorolac tromethamine Allergy Rash/Hives Verified 03/05/23 16:46 [From Toradol] meperidine Allergy Unknown Verified 03/05/23 16:46 meperidine HCl [From Demerol] Allergy Swelling Verified 03/05/23 16:46 pregabalin [From Lyrica] Allergy Unknown Verified 03/05/23 16:46 risperidone [From Risperdal] Allergy Dyspnea Verified 03/05/23 16:46 sulfamethoxazole Allergy Rash/Hives Verified 03/05/23 16:46 [From Bactrim] trimethoprim [From Bactrim] Allergy Rash/Hives Verified 03/05/23 16:46 haloperidol [From Haldol] AdvReac Aggitation, Verified 03/05/23 16:46 can't sit still methylprednisolone AdvReac Vomiting & Verified 03/05/23 16:46 [From Medrol] Headache Review of Systems ROS Statement: Those systems with pertinent positive or pertinent negative responses have been documented in the HPI. ROS Other: All systems not noted in ROS Statement are negative. Past Medical History Past Medical History: Asthma, Fibromyalgia, GERD/Reflux, Hypertension, Neurologic Disorder, Seizure Disorder, Thyroid Disorder Additional Past Medical History / Comment(s): crohns disease, diverticulosis, ibs, chronic colitis.,carpal tunnel solo wrists, anemia, chronic back pain , migraines, pinched nerves, Hx fall in June and broke old fracture above right ankle- wears boot., frequent nausea, last seizure 1 month ago., hx pancreatitis. Scoliosis History of Any Multi-Drug Resistant Organisms: MRSA Past Surgical History: Adenoidectomy, Appendectomy, Cholecystectomy, Orthopedic Surgery, Tonsillectomy Additional Past Surgical History / Comment(s): EGD/colonoscopy, right ankle surgery, broken nose surgery Past Anesthesia/Blood Transfusion Reactions: Previous Problems w/ Anesthesia, Postoperative Nausea & Vomiting (PONV) Additional Past Anesthesia/Blood Transfusion Reaction / Comment(s): hallucinations x1 Past Psychological History: Anxiety, Bipolar, Depression, PTSD Smoking Status: Current every day smoker Past Alcohol Use History: None Reported Past Drug Use History: Marijuana - Past Family History Father Family Medical History: Diabetes Mellitus, Hyperlipidemia Mother Family Medical History: Cancer, CVA/TIA, Deep Vein Thrombosis (DVT), Os teoarthritis (OA), Thyroid Disorder Additional Family Medical History / Comment(s): Extensive tattoos throughout body General Exam Limitations: altered mental status, physical limitation General appearance: alert, anxious, lethargic, in distress Head exam: Present: atraumatic, normocephalic, normal inspection Eye exam: Present: normal appearance, PERRL, EOMI. Absent: scleral icterus, conjunctival injection, periorbital swelling ENT exam: Present: normal exam, mucous membranes moist Neck exam: Present: normal inspection. Absent: tenderness, meningismus, lymphadenopathy Respiratory exam: Present: respiratory distress, wheezes, accessory muscle use, decreased breath sounds, prolonged expiratory. Absent: rales, rhonchi, stridor Cardiovascular Exam: Present: normal rhythm, tachycardia, normal heart sounds. Absent: systolic murmur, diastolic murmur, rubs, gallop, clicks GI/Abdominal exam: Present: soft, normal bowel sounds. Absent: distended, tenderness, guarding, rebound, rigid Extremities exam: Present: normal inspection, full ROM, normal capillary refill. Absent: tenderness, pedal edema, joint swelling, calf tenderness Back exam: Present: normal inspection Neurological exam: Present: alert, oriented X3, CN II-XII intact Psychiatric exam: Present: normal affect, normal mood Skin exam: Present: warm, dry, intact, normal color. Absent: rash Course Vital Signs 03/05/23 03/05/23 03/05/23 16:44 16:46 16:51 Temperature 98.8 F Pulse Rate 102 H Respiratory 24 20 Rate Blood Pressure 127/98 O2 Sat by Pulse 87 L 92 L Oximetry 03/05/23 03/05/23 03/05/23 16:54 17:00 17:07 Temperature Pulse Rate 98 94 101 H Respiratory 18 18 18 Rate Blood Pressure 127/98 O2 Sat by Pulse 96 Oximetry 03/05/23 03/05/23 03/05/23 17:30 18:00 18:30 Temperature Pulse Rate 98 91 86 Respiratory 18 22 22 Rate Blood Pressure 141/92 133/81 133/90 O2 Sat by Pulse 96 97 98 Oximetry 03/05/23 03/05/23 03/05/23 19:00 20:00 21:00 Temperature Pulse Rate 87 79 91 Respiratory 13 28 H 56 H Rate Blood Pressure 148/92 137/88 158/102 O2 Sat by Pulse 98 98 95 Oximetry 03/05/23 03/05/23 03/05/23 22:00 22:56 22:58 Temperature Pulse Rate 93 89 Respiratory 28 H 18 Rate Blood Pressure 108/62 145/95 145/95 O2 Sat by Pulse 84 L 96 Oximetry 03/05/23 03/06/23 03/06/23 23:00 00:00 05:52 Temperature Pulse Rate 89 80 88 Respiratory 26 H 22 19 Rate Blood Pressure 145/95 163/109 O2 Sat by Pulse 96 97 91 L Oximetry 03/06/23 03/06/23 03/06/23 06:00 06:14 07:47 Temperature 98.6 F Pulse Rate 92 76 89 Respiratory 26 H 18 22 Rate Blood Pressure 133/87 138/86 O2 Sat by Pulse 91 L 92 L 92 L Oximetry 03/06/23 03/06/23 03/06/23 08:00 08:09 08:14 Temperature Pulse Rate 102 H 105 H Respiratory 28 H Rate Blood Pressure 138/86 O2 Sat by Pulse 88 L 94 L Oximetry 03/06/23 03/06/23 03/06/23 08:19 08:28 09:13 Temperature Pulse Rate 96 85 Respiratory 17 Rate Blood Pressure 148/91 O2 Sat by Pulse 92 L 96 Oximetry 03/06/23 03/06/23 03/06/23 10:00 10:05 10:35 Temperature Pulse Rate 84 81 78 Respiratory 26 H 20 18 Rate Blood Pressure 148/91 134/84 O2 Sat by Pulse 96 96 96 Oximetry 03/06/23 03/06/23 03/06/23 11:40 11:52 11:57 Temperature Pulse Rate 89 92 Respiratory Rate Blood Pressure O2 Sat by Pulse 92 L Oximetry 03/06/23 03/06/23 03/06/23 12:00 14:00 15:30 Temperature Pulse Rate 90 92 91 Respiratory 20 Rate Blood Pressure 162/89 109/83 O2 Sat by Pulse 90 L 91 L Oximetry 03/06/23 03/06/23 03/06/23 15:43 16:00 20:04 Temperature Pulse Rate 102 H 97 99 Respiratory 20 Rate Blood Pressure 120/81 O2 Sat by Pulse 90 L Oximetry 03/06/23 20:12 Temperature Pulse Rate 88 Respiratory Rate Blood Pressure O2 Sat by Pulse Oximetry - Reevaluation(s) Reevaluation #1: 03/05/23 medical record is reviewed Reevaluation #2: 03/05/23 patient still hypoxic, SOB, weak, AMS at times Reevaluation #3: 03/05/23 patient informed of results and questions answered Reevaluation #4: 03/05/23 18:14 Was pt. sent in by a medical professional or institution (MELISSA Vargas, ASSEMBLY INSPECTOR HELPER, urgent care, hospital, or custodial...) When possible be specific @ -no Did you speak to anyone other than the patient for history (EMS, parent, family, police, friend...)? What history was obtained from this source @ -no Did you review nursing and triage notes (agree or disagree)? Why? @ -agree Are old charts reviewed (outside hosp., previous admission, EMS record, old EKG, old radiological studies, urgent care reports/EKG's, custodial records)? Report findings @ -yes Differential Diagnosis (chest pain, altered mental status, abdominal pain women, abdominal pain men, vaginal bleeding, weakness, fever, dyspnea, syncope, headache, dizziness, GI bleed, back pain, seizure, CVA, palpatations, mental health, musculoskeletal)? @ -prior EKG interpreted by me (3pts min.). @ -yes X-rays interpreted by me (1pt min.). @ -yes atypical pneumonia, interpreted by me CT interpreted by me (1pt min.). @ -yes bilateral groundglass opacities interpreted by me U/S interpreted by me (1pt. min.). @ -no What testing was considered but not performed or refused? (CT, X-rays, U/S, labs)? Why? @ -none What meds were considered but not given or refused? Why? @ -none Did you discuss the management of the patient with other professionals (professionals i.e. DrLetitia, PA, ASSEMBLY INSPECTOR HELPER, lab, RT, psych nurse, social and human services assistant, production control coordinator, teacher, nuclear security officer, special education case manager)? Give summary @ -no Was smoking cessation discussed for >3mins.? @ -no Was critical care preformed (if so, how long)? @ -yes31 Were there social determinants of health that impacted care today? How? (Homelessness, low income, unemployed, alcoholism, drug addiction, transportation, low edu. Level, literacy, decrease access to med. care, senior care, rehab)? @ -none Was there de-escalation of care discussed even if they declined (Discuss DNR or withdrawal of care, Hospice)? DNR status @ -no What co-morbidities impacted this encounter? (DM, HTN, Smoking, COPD, CAD, Cancer, CVA, ARF, Chemo, Hep., AIDS, mental health diagnosis, sleep apnea, morbid obesity)? @ -none Was patient admitted / discharged? Hospital course, mention meds given and route, prescriptions, significant lab abnormalities, going to OR and other pertinent info. @ - 38 female with significant shortness of breath found to be profoundly hypoxic here in the emergency room, patient remains hypoxic despite breathing treatments, [place] for multifactorial respiratory failure and hypoxia Admitted Undiagnosed new problem with uncertain prognosis? @ -no Drug Therapy requiring intensive monitoring for toxicity (Heparin, Nitro, Insulin, Cardizem)? @ -no Were any procedures done? @ -no Diagnosis/symptom? @ -CHF, pneumonia, respiratory failure, hypoxia Acute, or Chronic, or Acute on Chronic? @ -Acute Uncomplicated (without systemic symptoms) or Complicated (systemic symptoms)? @ -Complicated Side effects of treatment? @ -no Exacerbation, Progression, or Severe Exacerbation? @ -exacerbation Poses a threat to life or bodily function? How? (Chest pain, [place], AR, pneumonia, PE, COPD, DKA, ARF, appy, cholecystitis, CVA, Diverticulitis, Homicidal, Suicidal, threat to staff... and all critical care pts) @ -yes with respiratory failure, hypoxia Reevaluation #5: Differential Dyspnea: Coronary syndrome, arrhythmia, tamponade, asthma, COPD, pulmonary embolism, pneumonia, pneumothorax, pulmonary effusion, anaphylaxis, diabetic ketoacidosis, flailed chest, pulmonary contusion, diaphragmatic rupture, anemia, neuromuscular, this is not meant to be an all-inclusive list. - Consultations Consultation #1: sound physician's admit this patient spoke with sound Medical Decision Making - Medical Decision Making 38 female with significant shortness of breath found to be profoundly hypoxic here in the emergency room, patient remains hypoxic despite breathing corey tments, [place] for multifactorial respiratory failure and hypoxia - Lab Data Result diagrams: 03/07/23 15:42 03/07/23 15:42 Lab Results 03/05/23 03/05/23 03/05/23 Range/Units 16:53 16:53 16:53 WBC 11.3 H (3.8-10.6) k/uL RBC 3.78 L (3.80-5.40) m/uL Hgb 10.5 L (11.4-16.0) gm/dL Hct 32.2 L (34.0-46.0) % MCV 85.4 (80.0-100.0) fL MCH 27.8 (25.0-35.0) pg MCHC 32.5 (31.0-37.0) g/dL RDW 16.6 H (11.5-15.5) % Plt Count 343 (150-450) k/uL MPV 7.7 Neutrophils % 89 % Lymphocytes % 7 % Monocytes % 3 % Eosinophils % 0 % Basophils % 0 % Neutrophils # 10.0 H (1.3-7.7) k/uL Lymphocytes # 0.8 L (1.0-4.8) k/uL Monocytes # 0.4 (0-1.0) k/uL Eosinophils # 0.0 (0-0.7) k/uL Basophils # 0.0 (0-0.2) k/uL Anisocytosis Slight PT 10.7 (10.0-12.5) sec INR 1.0 (<1.2) APTT 25.9 (22.0-30.0) sec D-Dimer 0.70 H (<0.60) mg/L FEU Sodium 131 L (137-145) mmol/L Potassium 3.5 (3.5-5.1) mmol/L Chloride 98 (98-107) mmol/L Carbon Dioxide 22 (22-30) mmol/L Anion Gap 11 mmol/L BUN 8 (7-17) mg/dL Creatinine 0.57 (0.52-1.04) mg/dL Est GFR (CKD-EPI)AfAm >90 (>60 ml/min/1.73 sqM) Est GFR (CKD-EPI)NonAf >90 (>60 ml/min/1.73 sqM) Glucose 148 H (74-99) mg/dL Plasma Lactic Acid Jeremy (0.7-2.0) mmol/L Calcium 8.8 (8.4-10.2) mg/dL Magnesium 1.5 L (1.6-2.3) mg/dL Total Bilirubin 0.5 (0.2-1.3) mg/dL AST 38 H (14-36) U/L ALT 15 (4-34) U/L Alkaline Phosphatase 85 (38-126) U/L Troponin I (0.000-0.034) ng/mL NT-Pro-B Natriuret Pep 4860 pg/mL Total Protein 6.3 (6.3-8.2) g/dL Albumin 3.5 (3.5-5.0) g/dL 03/05/23 03/05/23 Range/Units 16:53 16:53 WBC (3.8-10.6) k/uL RBC (3.80-5.40) m/uL Hgb (11.4-16.0) gm/dL Hct (34.0-46.0) % MCV (80.0-100.0) fL MCH (25.0-35.0) pg MCHC (31.0-37.0) g/dL RDW (11.5-15.5) % Plt Count (150-450) k/uL MPV Neutrophils % % Lymphocytes % % Monocytes % % Eosinophils % % Basophils % % Neutrophils # (1.3-7.7) k/uL Lymphocytes # (1.0-4.8) k/uL Monocytes # (0-1.0) k/uL Eosinophils # (0-0.7) k/uL Basophils # (0-0.2) k/uL Anisocytosis PT (10.0-12.5) sec INR (<1.2) APTT (22.0-30.0) sec D-Dimer (<0.60) mg/L FEU Sodium (137-145) mmol/L Potassium (3.5-5.1) mmol/L Chloride (98-107) mmol/L Carbon Dioxide (22-30) mmol/L Anion Gap mmol/L BUN (7-17) mg/dL Creatinine (0.52-1.04) mg/dL Est GFR (CKD-EPI)AfAm (>60 ml/min/1.73 sqM) Est GFR (CKD-EPI)NonAf (>60 ml/min/1.73 sqM) Glucose (74-99) mg/dL Plasma Lactic Acid Jeremy 1.5 (0.7-2.0) mmol/L Calcium (8.4-10.2) mg/dL Magnesium (1.6-2.3) mg/dL Total Bilirubin (0.2-1.3) mg/dL AST (14-36) U/L ALT (4-34) U/L Alkaline Phosphatase (38-126) U/L Troponin I 0.067 H* (0.000-0.034) ng/mL NT-Pro-B Natriuret Pep pg/mL Total Protein (6.3-8.2) g/dL Albumin (3.5-5.0) g/dL - EKG Data -: EKG Interpreted by Me (EKG is normal sinus rhythm 96 IL 147 QRS 96 QRc 431) - Radiology Data Radiology results: report reviewed (Chest x-ray CT chest does show signs of atypical pneumonia), image reviewed Critical Care Time Critical Care Time: Yes Total Critical Care Time: 31 Disposition Clinical Impression: Crohns disease, Hypoxia, Nausea and vomiting, Altered mental status, Asthma with status asthmaticus, Asthma with acute exacerbation, Acute pulmonary edema Disposition: ADMITTED IP TO THIS [facility] Condition: Serious Is patient prescribed a controlled substance at d/c from ED?: No Time of Disposition: 20:20
[2023-03-05] MEDS ORDERED: ACETAMINOPHEN TAB 325 MG TAB PO STA (16:57)
--- NOTE | 2023-03-05 17:16 | XR ---
EXAMINATION TYPE: XR chest 1V portable DATE OF EXAM: 03/05/2023 COMPARISON: 12/10/2022 INDICATION: Short of breath TECHNIQUE: Single frontal view of the chest is obtained. FINDINGS: The heart size is normal. The pulmonary vasculature is prominent. Diffuse increased lung markings are present. IMPRESSION: 1. Diffuse increased lung markings with prominent pulmonary vascular markings. Correlate for pulmonar y edema and volume overload.
[2023-03-05 17:24] LABS: ALT 15 U/L (4-34); AST 38 U/L (14-36); African American GFR (CKD) >90 (>60 ml/min/1.73 sqM); Albumin 3.5 g/dL (3.5-5.0); Alkaline Phosphatase 85 U/L (38-126); Anion Gap 11 mmol/L; Blood Urea Nitrogen 8 mg/dL (7-17); Calcium 8.8 mg/dL (8.4-10.2); Carbon Dioxide 22 mmol/L (22-30); Chloride 98 mmol/L (98-107); Glucose 148 mg/dL (74-99); Magnesium 1.5 mg/dL (1.6-2.3); Non-African American GFR(CKD) >90 (>60 ml/min/1.73 sqM); Potassium 3.5 mmol/L (3.5-5.1); Sodium 131 mmol/L (137-145); Total Bilirubin 0.5 mg/dL (0.2-1.3); Total Protein 6.3 g/dL (6.3-8.2)
[2023-03-05 17:25] LABS: Anisocytosis Slight; Basophils % (A) 0 %; Eosinophils % (A) 0 %; HCT 32.2 % (34.0-46.0); HGB 10.5 gm/dL (11.4-16.0); Lymphocytes # (A) 0.8 k/uL (1.0-4.8); Lymphocytes % (A) 7 %; MCH 27.8 pg (25.0-35.0); MCHC 32.5 g/dL (31.0-37.0); MCV 85.4 fL (80.0-100.0); Mean Platelet Volume 7.7; Monocytes # (A) 0.4 k/uL (0-1.0); Monocytes % (A) 3 %; Neutrophils % (A) 89 %; Platelet Count 343 k/uL (150-450); RBC 3.78 m/uL (3.80-5.40); RDW 16.6 % (11.5-15.5); WBC 11.3 k/uL (3.8-10.6)
[2023-03-05] MEDS ORDERED: MAGNESIUM SULFATE-D5W PMX 1 GM in DEXTROSE/WATER 1 100ML.BAG IVPB ONE (17:30)
[2023-03-05 17:33] LABS: NT-Pro-B-Type Natriuretic Pept 4860 pg/mL
[2023-03-05 17:43] LABS: Partial Thromboplastin Time 25.9 sec (22.0-30.0); Prothrombin Time 10.7 sec (10.0-12.5)
[2023-03-05] MEDS ORDERED: FUROSEMIDE 10 MG/ML 10 ML VIAL IV STA (20:23)
[2023-03-05] MEDS ORDERED: NALOXONE 0.4 MG/ML 1 ML VIAL IV PRN (20:23)
[2023-03-05] MEDS: SODIUM CHLORIDE 0.9% 1,000 ML IV SCH (22:56)
--- NOTE | 2023-03-05 23:17 | CT ---
EXAM: CT Angiography Chest With Intravenous Contrast CLINICAL HISTORY: Shortness of breath, which began last night and has increased over time. History of asthma. TECHNIQUE: Axial computed tomographic angiography images of the chest with intravenous contrast. CTDI is 17.6 mGy and DLP is 408.4 mGy-cm. This CT exam was performed using one or more of the following dose reduction techniques: automated exposure control, adjustment of the mA and/or kV according to patient size, and/or use of iterative reconstruction technique. MIP reconstructed images were created and reviewed. COMPARISON: No relevant prior studies available. FINDINGS: Pulmonary arteries: No evidence for pulmonary embolism. Aorta: No acute findings. No thoracic aortic aneurysm. Lungs: Diffuse ground-glass opacities predominantly throughout both lungs with corollary regions of interlobular septal thickening. Pleural space: Unremarkable. No significant effusion. No pneumothorax. Heart: The cardiac chambers are borderline prominent. No pericardial effusion. Bones/joints: No acute fracture. No dislocation. Soft tissues: Unremarkable. Lymph nodes: Subcentimeter prevascular and paratracheal presumed reactive lymph nodes are noted. IMPRESSION: 1. No evidence for pulmonary embolism. 2. Diffuse ground-glass opacities predominantly throughout both lungs with corollary regions of interlobular septal thickening. Favor bilateral diffuse pneumonia, to include atypical bacterial and viral processes over asymmetric edema. No pleural effusion or pneumothorax.
[2023-03-06] MEDS: QUEtiapine 200 MG TAB PO SCH ×2 (00:46→20:58)
[2023-03-06] MEDS: clonazePAM 0.5 MG TAB PO SCH ×3 (00:46→20:58)
[2023-03-06] MEDS: NON FORMULARY DRUG (Buprenorphine Hcl/Naloxone Hcl [Suboxone 8 Mg-2 Mg Sl Film] 1 EACH Fil SUBLINGUAL SCH ×2 (00:47→08:50)
[2023-03-06] MEDS: ONDANSETRON 4 MG/2 ML VIAL IVP PRN ×3 (00:47→14:45)
[2023-03-06] MEDS: MORPHINE SULFATE 4 MG/ML SYRINGE IV PRN ×2 (02:15→07:52)
[2023-03-06] MEDS ORDERED: LEVOFLOXACIN 750MG-D5W PMX 750 MG in DEXTROSE/WATER 1 150ML.BAG IVPB STA (03:30)
--- NOTE | 2023-03-06 03:39 | P.HPIM ---
History of Present Illness H&P Date: 03/06/23 Chief Complaint: shortness of breath 38-year-old female with Crohn's, asthma, seizure disorder She is coming in for worsening exertional dyspnea she reports that this all sta rted suddenly after taking a shower she suddenly started feeling very short of breath dizzy nausea and vomiting so she decided to quit sleep after she woke up she continued to feel dizzy week tired with the with coughing feeling congested she vomited again felt very short of breath when she tried to walk around the house for which she decided to come in for evaluation she went to her doctor and sent her to the hospital concerned regarding cardiomyopathy and pulmonary edema but reported that her oxygen has dropped down to 70%. However since patient been in the ED she was on a nasal cannula 6 L with oxygen saturation of 87%, that improved with nonrebreather and breathing treatments. Patient denies any recent travel denies any hospital stay denies any history of blood clots. She denies any known sick contact In the ED her d-dimer was elevated slightly 0.7, CT angios the chest showed no acute PE however showed groundglass appearance of the basal lungs suspicious for possible pneumonia Patient admits to tobacco smoking denies illicit drugs or heavy alcohol review of systems Pertinent positives as noted in HPI. All other systems were reviewed and are negative on exam Constitutional: No acute distress, conversant, pleasant Eyes: Anicteric sclerae, moist conjunctiva, Pupils equal round reactive to light ENMT: NC/AT Oropharynx clear, no erythema, or exudates Neck: Supple, no masses, or JVD No carotid bruits No thyromegaly Lungs: Rhonchorous breathing Clear to percussion Normal respiratory effort, no accessory muscle use Cardiovascular: Heart regular in rate and rhythm, No murmurs, gallops, or rubs No peripheral edema Abdominal: Soft Nontender, no guarding, rebound or rigidity Abdomen moving with respiration Normoactive bowel sounds No hepatomegaly, No splenomegaly No palpable mass No abdominal wall hernia noted Extremities: No digital cyanosis No clubbing Pedal pulses intact and symmetrical Radial pulses intact and symmetrical No calf tenderness Psychiatric: Alert and oriented to person, place and time Appropriate affect fair judgement Neuro Muscles Strength 5/5 in all 4 extremities Sensation to light touch grossly present throughout Cranial nerves II-XII grossly intact Lymphatics: no palpable cervical or supraclavicular lymph nodes Past Medical History Past Medical History: Asthma, Fibromyalgia, GERD/Reflux, Hypertension, Neurologic Disorder, Seizure Disorder, Thyroid Disorder Additional Past Medical History / Comment(s): crohns disease, diverticulosis, ibs, chronic colitis.,carpal tunnel solo wrists, anemia, chronic back pain , migraines, pinched nerves, Hx fall in June and broke old fracture above right ankle- wears boot., frequent nausea, last seizure 1 month ago., hx pancreatitis. Scoliosis History of Any Multi-Drug Resistant Organisms: MRSA Past Surgical History: Adenoidectomy, Appendectomy, Cholecystectomy, Orthopedic Surgery, Tonsillectomy Additional Past Surgical History / Comment(s): EGD/colonoscopy, right ankle surgery, broken nose surgery Past Anesthesia/Blood Transfusion Reactions: Previous Problems w/ Anesthesia, Postoperative Nausea & Vomiting (PONV) Additional Past Anesthesia/Blood Transfusion Reaction / Comment(s): hallucin ations x1 Past Psychological History: Anxiety, Bipolar, Depression, PTSD Smoking Status: Current every day smoker Past Alcohol Use History: None Reported Past Drug Use History: Marijuana - Past Family History Father Family Medical History: Diabetes Mellitus, Hyperlipidemia Mother Family Medical History: Cancer, CVA/TIA, Deep Vein Thrombosis (DVT), Osteoarthritis (OA), Thyroid Disorder Additional Family Medical History / Comment(s): Extensive tattoos throughout body Medications and Allergies Home Medications Medication Instructions Recorded Confirmed Type Balsalazide Disodium 2,250 mg PO DIRECTED 11/16/19 09/11/22 History Lisinopril-Hctz 20-25 mg 2 tab PO DIRECTED 11/16/19 09/11/22 History [Zestoretic 20-25] Famotidine [Pepcid] 20 mg PO BID 03/06/20 03/05/23 History Simvastatin [Zocor] 20 mg PO DIRECTED 03/06/20 09/11/22 History Divalproex [Depakote] 1,500 mg PO DIRECTED 07/14/20 09/11/22 History Loratadine [Claritin] 10 mg PO DAILY 07/14/20 03/05/23 History Gabapentin [Neurontin] 1,200 mg PO TID 10/01/20 03/05/23 History Butalb/APAP/Caff 50-325-40Mg 1 tab PO Q6H PRN 11/18/20 03/05/23 History [Fioricet 50-325-40] Folic Acid 1 mg PO DAILY 02/06/21 03/05/23 History Ferrous Sulfate [Iron (65 MG 325 mg PO DIRECTED 06/23/21 09/11/22 History Elemental)] Metoclopramide [Reglan] 10 mg PO TID PRN #15 tab 08/02/22 03/05/23 Rx Albuterol Inhaler [Ventolin Hfa 2 puff INHALATION RT-Q6H PRN 09/11/22 03/05/23 History Inhaler] Omeprazole 40 mg PO BID 09/11/22 03/05/23 History Prochlorperazine [Compazine] 10 mg PO TID PRN 09/11/22 03/05/23 History Buprenorphine HCl/Naloxone HCl 1 film SL TID 03/05/23 03/05/23 History [Suboxone 8 mg-2 mg Sl Film] DULoxetine HCL [Cymbalta] 60 mg PO DAILY 03/05/23 03/05/23 History Diclofenac Sodium Gel [Voltaren 1% 2 gm TOPICAL QID 03/05/23 03/05/23 History Gel] Hydrocortisone Cream 1 applic TOPICAL BID 03/05/23 03/05/23 History [Hydrocortisone 2.5% Cream] Ibuprofen [Motrin] 600 mg PO Q6H PRN 03/05/23 03/05/23 History Levothyroxine Sodium [Synthroid] 175 mcg PO DAILY 03/05/23 03/05/23 History Magnesium Oxide [Mag-Ox] 400 mg PO BID 03/05/23 03/05/23 History Montelukast [Singulair] 10 mg PO DAILY 03/05/23 03/05/23 History NIFEdipine XL [Procardia XL] 60 mg PO DAILY 03/05/23 03/05/23 History Dxb-[id number]-Yftpw Acid 1 cap PO DAILY 03/05/23 03/05/23 History [-U Capsule (formulary)] QUEtiapine [SEROquel] 200 mg PO HS 03/05/23 03/05/23 History clonazePAM [KlonoPIN] 0.5 mg PO BID 03/05/23 03/05/23 History Allergies Allergy/AdvReac Type Severity Reaction Status Date / Time granisetron HCl [From Kytril] Allergy Severe Anaphylaxis Verified 03/05/23 16:46 azithromycin Allergy Rash/Hives Verified 03/05/23 16:46 baclofen Allergy Rash/Hives Verified 03/05/23 16:46 butorphanol [From Stadol] Allergy Rash/Hives Verified 03/05/23 16:46 butorphanol tartrate Allergy Rash/Hives Verified 03/05/23 16:46 [From Stadol] Cephalosporins Allergy Rash/Hives Verified 03/05/23 16:46 cyclobenzaprine Allergy Unknown Verified 03/05/23 16:46 [From Flexeril] dicloxacillin Allergy Rash/Hives Verified 03/05/23 16:46 granisetron [From Kytril] Allergy Anaphylaxis Verified 03/05/23 16:46 ketorolac Allergy Rash/Hives Verified 03/05/23 16:46 ketorolac tromethamine Allergy Rash/Hives Verified 03/05/23 16:46 [From Toradol] meperidine Allergy Unknown Verified 03/05/23 16:46 meperidine HCl [From Demerol] Allergy Swelling Verified 03/05/23 16:46 pregabalin [From Lyrica] Allergy Unknown Verified 03/05/23 16:46 risperidone [From Risperdal] Allergy Dyspnea Verified 03/05/23 16:46 sulfamethoxazole Allergy Rash/Hives Verified 03/05/23 16:46 [From Bactrim] trimethoprim [From Bactrim] Allergy Rash/Hives Verified 03/05/23 16:46 haloperidol [From Haldol] AdvReac Aggitation, Verified 03/05/23 16:46 can't sit still methylprednisolone AdvReac Vomiting & Verified 03/05/23 16:46 [From Medrol] Headache Physical Exam Vitals: Vital Signs Temp Pulse Resp BP Pulse Ox 03/05/23 22:58 89 18 145/95 96 03/05/23 22:00 108/62 03/05/23 21:00 91 56 H 158/102 95 03/05/23 20:00 79 28 H 137/88 98 03/05/23 19:00 87 13 148/92 98 03/05/23 18:30 86 22 133/90 98 03/05/23 18:00 91 22 133/81 97 03/05/23 17:30 98 18 141/92 96 03/05/23 17:07 101 H 18 03/05/23 17:00 94 18 127/98 96 03/05/23 16:54 98 18 03/05/23 16:51 92 L 03/05/23 16:46 20 03/05/23 16:44 98.8 F 102 H 24 127/98 87 L Intake and Output 03/05/23 03/05/23 03/06/23 14:59 22:59 06:59 Other: Weight 85.275 kg Results CBC & Chem 7: 03/05/23 16:53 03/05/23 16:53 Labs: Abnormal Lab Results - Last 24 Hours (Table) 03/05/23 03/05/23 03/05/23 Range/Units 16:53 16:53 16:53 WBC 11.3 H (3.8-10.6) k/uL RBC 3.78 L (3.80-5.40) m/uL Hgb 10.5 L (11.4-16.0) gm/dL Hct 32.2 L (34.0-46.0) % RDW 16.6 H (11.5-15.5) % Neutrophils # 10.0 H (1.3-7.7) k/uL Lymphocytes # 0.8 L (1.0-4.8) k/uL D-Dimer 0.70 H (<0.60) mg/L FEU Sodium 131 L (137-145) mmol/L Glucose 148 H (74-99) mg/dL Magnesium 1.5 L (1.6-2.3) mg/dL AST 38 H (14-36) U/L Troponin I (0.000-0.034) ng/mL 03/05/23 03/05/23 Range/Units 16:53 21:04 WBC (3.8-10.6) k/uL RBC (3.80-5.40) m/uL Hgb (11.4-16.0) gm/dL Hct (34.0-46.0) % RDW (11.5-15.5) % Neutrophils # (1.3-7.7) k/uL Lymphocytes # (1.0-4.8) k/uL D-Dimer (<0.60) mg/L FEU Sodium (137-145) mmol/L Glucose (74-99) mg/dL Magnesium (1.6-2.3) mg/dL AST (14-36) U/L Troponin I 0.067 H* 0.066 H* (0.000-0.034) ng/mL Assessment and Plan Assessment: 38-year-old female asthma, seizure disorder coming in with sudden onset sh ortness of breath with coughing and repeated vomiting I discussed the case with the adductor accepted the admission for sepsis secondary to possible underlying pneumonia with anticipated length of stay more than 2 midnights Acute hypoxic respiratory failure Sepsis secondary to underlying pneumonia Moderate persistent asthma Check blood cultures Sputum cultures Legionella urine antigen Check acute respiratory viral panel RSV, Covid, influenza Check urine test, of note patient already had CT angiogram the chest in the ED I could not find urine test in the chart Initiate patient empirically on levofloxacin 750 mg IV piggyback daily due to multiple ALLERGIES which restrict the use of azithromycin and cephalosporin Tylenol for fever Slightly elevated d-dimer 0.7 White count 11.3, tachycardia CT angiogram of the chest no acute PE, groundglass capacity and lung basis, no s ignificant effusion Patient status post one-time IV Lasix in the ED Continue Singulair, home inhalers, Claritin DuoNeb's as needed Supplemental oxygen as needed Echocardiogram from December 2022 shows left ventricular ejection fraction 55% with mild concentric LVH ProBNP elevated [address] changes Troponins flat trending down 0.067 --> 0.066 Hypomagnesemia Magnesium 1.5 Replace Follow-up levels Seizure disorder Continue Depakote Chronic anemia Hemoglobin 10.5 Denies GI bleeding Hypothyroid Continue levothyroxine Hypertension Continue with Procardia and lisinopril History of opiates abuse Continue Suboxone DVT prophylaxis heparin subcu 3 times a day Full code GI prophylaxis continue with Protonix
[2023-03-06] MEDS: ACETAMINOPHEN TAB 325 MG TAB PO PRN ×3 (04:24→21:01)
[2023-03-06] MEDS: LEVOTHYROXINE 88 MCG TAB PO SCH (06:28)
[2023-03-06 06:44] LABS: Anisocytosis Slight; Basophils % (A) 0 %; Eosinophils # (A) 0.1 k/uL (0-0.7); Eosinophils % (A) 0 %; HCT 30.7 % (34.0-46.0); Lymphocytes # (A) 1.3 k/uL (1.0-4.8); Lymphocytes % (A) 11 %; MCH 27.8 pg (25.0-35.0); MCHC 32.5 g/dL (31.0-37.0); MCV 85.4 fL (80.0-100.0); Monocytes # (A) 0.4 k/uL (0-1.0); Monocytes % (A) 3 %; Neutrophils # (A) 10.3 k/uL (1.3-7.7); Neutrophils % (A) 85 %; Platelet Count 372 k/uL (150-450); RBC 3.59 m/uL (3.80-5.40); RDW 16.6 % (11.5-15.5); WBC 12.1 k/uL (3.8-10.6)
[2023-03-06 06:53] LABS: ALT 14 U/L (4-34); AST 32 U/L (14-36); African American GFR (CKD) >90 (>60 ml/min/1.73 sqM); Albumin 3.4 g/dL (3.5-5.0); Alkaline Phosphatase 85 U/L (38-126); Anion Gap 8 mmol/L; Blood Urea Nitrogen 7 mg/dL (7-17); Calcium 9.2 mg/dL (8.4-10.2); Carbon Dioxide 24 mmol/L (22-30); Chloride 101 mmol/L (98-107); Glucose 132 mg/dL (74-99); Lipase 17 U/L (23-300); Magnesium 1.9 mg/dL (1.6-2.3); Non-African American GFR(CKD) >90 (>60 ml/min/1.73 sqM); Phosphorus 3.1 mg/dL (2.5-4.5); Potassium 3.9 mmol/L (3.5-5.1); Sodium 133 mmol/L (137-145); Total Bilirubin 0.4 mg/dL (0.2-1.3); Total Protein 6.2 g/dL (6.3-8.2)
[2023-03-06] MEDS: PANTOPRAZOLE 40 MG TABLET PO SCH ×2 (07:44→16:45)
[2023-03-06] MEDS: HEPARIN SODIUM,PORCINE 5,000 UNIT/ML 1 ML VIAL SQ SCH ×3 (07:46→22:52)
[2023-03-06] MEDS ORDERED: ALBUTEROL NEBULIZED 1.25 MG/3 ML INHALATION SCH (08:00)
[2023-03-06] MEDS: DULoxetine HCL 60 MG CAPSULE.DR PO SCH (08:45)
[2023-03-06] MEDS: MONTELUKAST 10 MG TAB PO SCH (08:45)
[2023-03-06] MEDS: LORATADINE 10 MG TAB PO SCH (08:45)
[2023-03-06] MEDS ORDERED: NON FORMULARY DRUG (Simvastatin [Zocor] 20 MG Tablet) PO SCH (09:00)
[2023-03-06] MEDS ORDERED: LISINOPRIL-HCTZ 20-25 MG 1 EACH TAB PO SCH (09:00)
[2023-03-06] MEDS ORDERED: DIVALPROEX 500 MG TABLET.DR PO SCH (09:00)
[2023-03-06] MEDS ORDERED: IPRATROPIUM-ALBUTEROL 3 ML NEB INHALATION PRN (10:06)
[2023-03-06 10:23] LABS: Amphetamine Screen,Urine Not Detected (NotDetected); Barbiturate Screen,Urine Not Detected (NotDetected); Benzodiazepines Screen,Urine Not Detected (NotDetected); Cocaine Screen,Urine Not Detected (NotDetected); Methadone Screen, Urine Not Detected (NotDetected); Opiate Screen,Urine Detected (NotDetected); Oxycodone Screen, Urine Not Detected (NotDetected); Phencyclidine Screen,Urine Not Detected (NotDetected); Tricyclic Antidepressant,Urine Detected (NotDetected); Urn Cannabinoid Scrn Not Detected (NotDetected)
--- NOTE | 2023-03-06 10:28 | P.PN ---
Subjective Progress Note Date: 03/06/23 Hospital course: Patient is a very pleasant 38-year-old female with a past medical history of Crohn's disease, fibromyalgia with history of opioid dependence/abuse maintained on Suboxone, hypertension, seizure disorder, hypothyroidism, anxiety, depression, bipolar disorder, nicotine dependence, and cannabinoid use. She presented to the emergency department with a chief complaint of exertional dyspnea accompanied by dizziness, nausea, and vomiting. Upon initial arrival in the emergency department patient was found with an O2 sat of 87% requiring oxygen supplementation and nebulizer treatments. She underwent full evaluation in the emergency department. Labs completed and reviewed. CBC showing mild leukocytosis with WBC count of 11.3 and normocytic anemia with hemoglobin of 10.5. Coagulation profile normal findings with the exception of elevated d- dimer of 0.70. BMP revealing mild hyponatremia with sodium of 131 and hyperglycemia with glucose of 148 otherwise normal findings. Lactic acid normal findings at 1.5. Magnesium was low at 1.5. Liver profile showing slightly elevated AST of 38 otherwise normal findings. Troponin was elevated at 0.067 with a proBNP of 4860. Influenza A, influenza B, RSV, and Covid PCR were negative. EKG was completed showing normal sinus rhythm at 96 bpm with no significant T-wave or ST abnormalities showing no signs of acute ischemia. Chest x-ray showing diffuse increased lung markings with prominent pulmonary vascular markings concerning for pulmonary edema. CTA negative for pulmonary emboli showing diffuse ground glass opacities predominantly throughout both lungs with regions of intralobular septal thickening. Magnesium was replaced and patient was started on IV antibiotics with Levaquin 750 mg every 24 hours. Patient was then admitted under our services with consultation to cardiology and pulmonology. Troponins trended overnight resulting at 0.067, 0.066, and 0.086. Physical exam: Patient seen and fully evaluated at bedside. Patient appears somewhat sleepy, however upon assessment patient very agitated and reports that she needs her Suboxone or she is leaving AMA. Patient Suboxone was ordered overnight however patient sublingual Suboxone is not available, discussed with pharmacist and changes made to substitute Suboxone tablets for sublingual until patient can have someone bring her medications up to the hospital for administration. Patient currently denies having any chest pain or palpitations, she does report shortness of breath and states "I'm just tired". Vital signs reviewed and stable. General: Nontoxic, no distress and appears stated age. Derm: Skin warm and dry, normal coloration for ethnicity. Head: Atraumatic, normocephalic and symmetric. Eyes: EOMs intact, no lid lag, and anicteric sclera Mouth: no lip lesions, mucus membranes moist Cardiovascular: regular rate and rhythm with normal S1S2, no murmur, positive posterior tibial pulses bilaterally, and cap refill < 2 seconds. Lungs: Respirations even, regular, and unlabored. Lungs diminished with decreased airflow and significant diffuse expiratory wheezes bilaterally. Abdominal: soft, nontender to palpation, no guarding, no appreciable organomegaly Ext: ROM intact. No gross muscle atrophy, no edema, no contractures Neuro: Speech clear, face symmetrical and CN II-XII grossly intact with no noted focal neuro deficits Psych: Alert and oriented to person, place, time, and situation. Appropriate and pleasant affect. Assessment and Plan of Care: Multifocal pneumonia resulting in sepsis with Acute hypoxic respiratory failure Elevated troponins Opioid dependence/abuse maintained on Suboxone Fibromyalgia Crohn's disease Hypertension Seizure disorder Hypothyroidism Anxiety and depression Bipolar disorder Asthma with continued nicotine dependence and cannabinoid use -Cardiology consulted, appreciate further recommendations -Pulmonology consulted, appreciate recommendations -Order placed for continuous Telemetry monitoring -Urine hCG and Urine drug screen to be obtained. -Troponins trended overnight resulting at 0.067, 0.066, and 0.086. -Continue home medication regimen with Suboxone, Klonopin 0.5 mg twice daily, Depakote 1500 mg daily, Synthroid 176 g daily, lisinopril/hydrochlorothiazide 20/25 mg daily, Singulair 10 mg daily, Procardia 60 mg daily, Protonix 40 mg twice daily, Seroquel 20 mg nightly, and simvastatin 20 mg daily. -Discussed with pharmacist, as patient cannot bring in her sublingual Suboxone we will supplement with tablets based upon hospital availability -Cardiac diet -Obtain Legionella antigen and sputum culture -Follow up on blood cultures -Echocardiogram -Order placed for stat urine drug screen and urine hCG Data and imaging reviewed: -Labs completed and reviewed. CBC showing leukocytosis with WBC count of 12.1 and normocytic anemia with hemoglobin of 10.0. BMP revealing improvement of hyponatremia with sodium increasing to 133. Liver profile remains unremarkable. Hypomagnesemia has resolved with repeat magnesium of 1.9. Troponins trended overnight resulting at 0.067, 0.066, and 0.086. -Vital signs reviewed and stable with blood pressure 148/91, heart rate 85, respiratory rate 17, SpO2 of 96% on 6 L O2 via nasal cannula. CODE STATUS: Full code DVT prophylaxis: Heparin Anticipated discharge date: Clinical course to determine Anticipated discharge place: Clinical course to determine Patient was seen independently by Nurse Pracitioner. This document was prepared using [employer] dictation software. Please allow for errors in licensed certified orthotist, while rare they do occur. Objective - Vital Signs Vital signs: Vital Signs Temp 98.6 F 03/06/23 07:47 Pulse 96 03/06/23 08:19 Resp 22 03/06/23 07:47 BP 138/86 03/06/23 07:47 Pulse Ox 94 L 03/06/23 08:14 FiO2 Intake & Output 03/05/23 03/06/23 03/06/23 18:59 06:59 18:59 Weight 85.275 kg - Labs CBC & Chem 7: 03/06/23 05:45 03/06/23 05:45 Labs: Abnormal Lab Results - Last 24 Hours (Table) 03/05/23 03/05/23 03/05/23 Range/Units 16:53 16:53 16:53 WBC 11.3 H (3.8-10.6) k/uL RBC 3.78 L (3.80-5.40) m/uL Hgb 10.5 L (11.4-16.0) gm/dL Hct 32.2 L (34.0-46.0) % RDW 16.6 H (11.5-15.5) % Neutrophils # 10.0 H (1.3-7.7) k/uL Lymphocytes # 0.8 L (1.0-4.8) k/uL D-Dimer 0.70 H (<0.60) mg/L FEU Sodium 131 L (137-145) mmol/L Glucose 148 H (74-99) mg/dL Magnesium 1.5 L (1.6-2.3) mg/dL AST 38 H (14-36) U/L Troponin I (0.000-0.034) ng/mL Total Protein (6.3-8.2) g/dL Albumin (3.5-5.0) g/dL Lipase (23-300) U/L 03/05/23 03/05/23 03/05/23 Range/Units 16:53 21:04 23:22 WBC (3.8-10.6) k/uL RBC (3.80-5.40) m/uL Hgb (11.4-16.0) gm/dL Hct (34.0-46.0) % RDW (11.5-15.5) % Neutrophils # (1.3-7.7) k/uL Lymphocytes # (1.0-4.8) k/uL D-Dimer (<0.60) mg/L FEU Sodium (137-145) mmol/L Glucose (74-99) mg/dL Magnesium (1.6-2.3) mg/dL AST (14-36) U/L Troponin I 0.067 H* 0.066 H* 0.086 H* (0.000-0.034) ng/mL Total Protein (6.3-8.2) g/dL Albumin (3.5-5.0) g/dL Lipase (23-300) U/L 03/06/23 03/06/23 Range/Units 05:45 05:45 WBC 12.1 H (3.8-10.6) k/uL RBC 3.59 L (3.80-5.40) m/uL Hgb 10.0 L (11.4-16.0) gm/dL Hct 30.7 L (34.0-46.0) % RDW 16.6 H (11.5-15.5) % Neutrophils # 10.3 H (1.3-7.7) k/uL Lymphocytes # (1.0-4.8) k/uL D-Dimer (<0.60) mg/L FEU Sodium 133 L (137-145) mmol/L Glucose 132 H (74-99) mg/dL Magnesium (1.6-2.3) mg/dL AST (14-36) U/L Troponin I (0.000-0.034) ng/mL Total Protein 6.2 L (6.3-8.2) g/dL Albumin 3.4 L (3.5-5.0) g/dL Lipase 17 L (23-300) U/L
[2023-03-06] MEDS: GABAPENTIN 400 MG CAP PO SCH ×3 (10:36→22:50)
[2023-03-06] MEDS: BUPRENORPHINE-NALOX 8-2 MG TAB 1 EACH TAB.SUBL SL SCH ×3 (10:37→22:50)
[2023-03-06] MEDS: IPRATROPIUM-ALBUTEROL 3 ML NEB INHALATION SCH ×4 (11:39→23:36)
[2023-03-06] MEDS ORDERED: ALBUTEROL NEBULIZED 2.5 MG/3 ML INHALATION SCH (12:00)
--- NOTE | 2023-03-06 12:27 | P.CNPUL ---
History of Present Illness Consult date: 03/06/23 Requesting physician: Deepthi Childers Reason for consult: dyspnea, cough, abnormal CXR/CT, other Chief complaint: Shortness of breath. History of present illness: Pulmonary consult dated 03/06/2023. 38-year-old female who presented to the emergency department, on March 05, complaining of shortness of breath, and dizziness. The patient is seen in the emergency department, room 7. She apparently has history of asthma, fibromyalgia, acid reflux disease, hypertension, seizure disorder, thyroid disease, Crohn's disease, diverticulosis, irritable bowel syndrome, carpal tunnel syndrome, among other things. In the emergency room, the patient was on oxygen, at 6 L. She was getting saline at 20 mL an hour. Her N-terminal proBNP was 4860. She was adamant about getting Suboxone. She stated that if she did not get a, she was given her side or so about AGAINST MEDICAL ADVICE. She became very agitated at that point. White count 12.1, hemoglobin 10, hematocrit 30.7, and platelet count 372,000. Sodium 133, potassium 3.9, chlorides 101, CO2 24, BUN 70 creatinine 0.54. Glucose 132. Troponins were 0.066 0.086. Drug screen was positive for opiates and tricyclic antidepressants. She tested negative for influenza A/B, as well as RSV, and coronavirus. Chest x-ray was consistent with pulmonary edema. CT angiogram was negative for pulmonary embolism, but did show diffuse groundglass opacities, with interlobular septal thickening potentially consistent with pneumonia. Review of Systems REVIEW OF SYSTEMS: CONSTITUTIONAL: [Negative.] NEUROLOGIC: Dizzy. HEENT: [ Negative.] CARDIAC: [Negative.] PULMONARY: Shortness of breath. GI: [Negative.] : [Negative.] RHEUMATOLOGIC: [ Negative.] IMMUNOLOGIC: [ Negative.] ENDOCRINE: [Negative. ] DERMATOLOGIC: [Negative.] Past Medical History Past Medical History: Asthma, Fibromyalgia, GERD/Reflux, Hypertension, Neurologic Disorder, Seizure Disorder, Thyroid Disorder Additional Past Medical History / Comment(s): crohns disease, diverticulosis, ibs, chronic colitis.,carpal tunnel solo wrists, anemia, chronic back pain , migraines, pinched nerves, Hx fall in June and broke old fracture above right ankle- wears boot., frequent nausea, last seizure 1 month ago., hx pancreatitis. Scoliosis History of Any Multi-Drug Resistant Organisms: MRSA Past Surgical History: Adenoidectomy, Appendectomy, Cholecystectomy, Orthopedic Surgery, Tonsillectomy Additional Past Surgical History / Comment(s): EGD/colonoscopy, right ankle surgery, broken nose surgery Past Anesthesia/Blood Transfusion Reactions: Previous Problems w/ Anesthesia, Postoperative Nausea & Vomiting (PONV) Additional Past Anesthesia/Blood Transfusion Reaction / Comment(s): hallucinations x1 Past Psychological History: Anxiety, Bipolar, Depression, PTSD Smoking Status: Current every day smoker Past Alcohol Use History: None Reported Past Drug Use History: Marijuana - Past Family History Father Family Medical History: Diabetes Mellitus, Hyperlipidemia Mother Family Medical History: Cancer, CVA/TIA, Deep Vein Thrombosis (DVT), Osteoarthritis (OA), Thyroid Disorder Additional Family Medical History / Comment(s): Extensive tattoos throughout body Medications and Allergies Home Medications Medication Instructions Recorded Confirmed Type Famotidine [Pepcid] 20 mg PO BID 03/06/20 03/05/23 History Loratadine [Claritin] 10 mg PO DAILY 07/14/20 03/05/23 History Gabapentin [Neurontin] 1,200 mg PO TID 10/01/20 03/06/23 History Butalb/APAP/Caff 50-325-40Mg 1 tab PO Q6H PRN 11/18/20 03/05/23 History [Fioricet 50-325-40] Folic Acid 1 mg PO DAILY 02/06/21 03/05/23 History Metoclopramide [Reglan] 10 mg PO TID PRN #15 tab 08/02/22 03/05/23 Rx Albuterol Inhaler [Ventolin Hfa 2 puff INHALATION RT-Q6H PRN 09/11/22 03/05/23 History Inhaler] Omeprazole 40 mg PO BID 09/11/22 03/06/23 History Prochlorperazine [Compazine] 10 mg PO TID PRN 09/11/22 03/05/23 History Buprenorphine HCl/Naloxone HCl 1 film SL TID 03/05/23 03/05/23 History [Suboxone 8 mg-2 mg Sl Film] DULoxetine HCL [Cymbalta] 60 mg PO DAILY 03/05/23 03/05/23 History Diclofenac Sodium Gel [Voltaren 1% 2 gm TOPICAL QID 03/05/23 03/05/23 History Gel] Hydrocortisone Cream 1 applic TOPICAL BID 03/05/23 03/05/23 History [Hydrocortisone 2.5% Cream] Ibuprofen [Motrin] 600 mg PO Q6H PRN 03/05/23 03/05/23 History Levothyroxine Sodium [Synthroid] 175 mcg PO DAILY 03/05/23 03/06/23 History Magnesium Oxide [Mag-Ox] 400 mg PO BID 03/05/23 03/05/23 History Montelukast [Singulair] 10 mg PO DAILY 03/05/23 03/05/23 History NIFEdipine XL [Procardia XL] 60 mg PO DAILY 03/05/23 03/05/23 History Ulz-Hyke-Vmkqm Acid 1 cap PO DAILY 03/05/23 03/05/23 History [-U Capsule (formulary)] QUEtiapine [SEROquel] 200 mg PO HS 03/05/23 03/05/23 History clonazePAM [KlonoPIN] 0.5 mg PO BID 03/05/23 03/05/23 History Acetaminophen Tab [Tylenol Tab] 1,000 mg PO Q6HR PRN 03/06/23 03/06/23 History Ergocalciferol [Vitamin D2 (1250 1,250 mcg PO WEEKLY 03/06/23 03/06/23 History Mcg = 20441 Iu)] Lidocaine 5% Oint [Xylocaine 5% 1 applic TOPICAL TID PRN 03/06/23 03/06/23 History Oint] Ondansetron Odt [Zofran Odt] 8 mg PO BID PRN 03/06/23 03/06/23 History PARoxetine HCL [Paxil] 40 mg PO DAILY 03/06/23 03/06/23 History Slow Release Iron 45mg 1 tab PO DAILY 03/06/23 03/06/23 History hydroCHLOROthiazide [Hydrodiuril] 25 mg PO DAILY 03/06/23 03/06/23 History levETIRAcetam [Keppra] 500 mg PO BID 03/06/23 03/06/23 History predniSONE See Taper PO DIRECTED 03/06/23 03/06/23 History Allergies Allergy/AdvReac Type Severity Reaction Status Date / Time granisetron HCl [From Kytril] Allergy Severe Anaphylaxis Verified 03/05/23 16:46 azithromycin Allergy Rash/Hives Verified 03/05/23 16:46 baclofen Allergy Rash/Hives Verified 03/05/23 16:46 butorphanol [From Stadol] Allergy Rash/Hives Verified 03/05/23 16:46 butorphanol tartrate Allergy Rash/Hives Verified 03/05/23 16:46 [From Stadol] Cephalosporins Allergy Rash/Hives Verified 03/05/23 16:46 cyclobenzaprine Allergy Unknown Verified 03/05/23 16:46 [From Flexeril] dicloxacillin Allergy Rash/Hives Verified 03/05/23 16:46 granisetron [From Kytril] Allergy Anaphylaxis Verified 03/05/23 16:46 ketorolac Allergy Rash/Hives Verified 03/05/23 16:46 ketorolac tromethamine Allergy Rash/Hives Verified 03/05/23 16:46 [From Toradol] meperidine Allergy Unknown Verified 03/05/23 16:46 meperidine HCl [From Demerol] Allergy Swelling Verified 03/05/23 16:46 pregabalin [From Lyrica] Allergy Unknown Verified 03/05/23 16:46 risperidone [From Risperdal] Allergy Dyspnea Verified 03/05/23 16:46 sulfamethoxazole Allergy Rash/Hives Verified 03/05/23 16:46 [From Bactrim] trimethoprim [From Bactrim] Allergy Rash/Hives Verified 03/05/23 16:46 haloperidol [From Haldol] AdvReac Aggitation, Verified 03/05/23 16:46 can't sit still methylprednisolone AdvReac Vomiting & Verified 03/05/23 16:46 [From Medrol] Headache Physical Exam Osteopathic Statement: *. No significant issues noted on an osteopathic structural exam other than those noted in the History and Physical/Consult. Vitals: Vital Signs Temp Pulse Resp BP Pulse Ox 03/06/23 11:57 92 L 03/06/23 11:52 92 03/06/23 11:40 89 03/06/23 10:35 78 18 134/84 96 03/06/23 10:05 81 20 96 03/06/23 10:00 84 26 H 148/91 96 03/06/23 09:13 85 17 148/91 96 03/06/23 08:28 92 L 03/06/23 08:19 96 03/06/23 08:14 94 L 03/06/23 08:09 105 H 03/06/23 08:00 102 H 28 H 138/86 88 L 03/06/23 07:47 98.6 F 89 22 138/86 92 L 03/06/23 06:14 76 18 133/87 92 L 03/06/23 06:00 92 26 H 91 L 03/06/23 05:52 88 19 91 L 03/06/23 00:00 80 22 163/109 97 03/05/23 23:00 89 26 H 145/95 96 03/05/23 22:58 89 18 145/95 96 03/05/23 22:56 93 28 H 145/95 84 L 03/05/23 22:00 108/62 03/05/23 21:00 91 56 H 158/102 95 03/05/23 20:00 79 28 H 137/88 98 03/05/23 19:00 87 13 148/92 98 03/05/23 18:30 86 22 133/90 98 03/05/23 18:00 91 22 133/81 97 03/05/23 17:30 98 18 141/92 96 03/05/23 17:07 101 H 18 03/05/23 17:00 94 18 127/98 96 03/05/23 16:54 98 18 03/05/23 16:51 92 L 03/05/23 16:46 20 03/05/23 16:44 98.8 F 102 H 24 127/98 87 L Intake and Output 03/05/23 03/06/23 03/06/23 22:59 06:59 14:59 Other: Weight 85.275 kg No acute distress, oriented 3. The patient very agitated, when asking for Suboxone. Saturations are in the mid 90s. HEENT examination is grossly unremarkable. Mucous membranes are moist. No oral lesions. Neck supple. Full range of motion. No adenopathy thyromegaly or neck vein distention. Cardiovascular examination reveals regular rhythm rate. S1-S2 normal. No S3 or S4. No discernible murmur noted. Heart sounds are distant. Heart rate 92 bpm. Lungs reveal scattered rhonchi and crackles. Breath sounds equal. No wheezes. Saturations are in the mid 90s on high flow nasal cannula. Abdomen soft bowel sounds are heard. No masses or tenderness. Extremities are intact. No cyanosis clubbing or edema. Skin is without rash or lesion. Neurologic examination is brief but nonfocal. Results - Laboratory Findings CBC and BMP: 03/06/23 05:45 03/06/23 05:45 PT/INR, D-dimer PT 10.7 sec (10.0-12.5) 03/05/23 16:53 INR 1.0 (<1.2) 03/05/23 16:53 D-Dimer 0.70 mg/L FEU (<0.60) H 03/05/23 16:53 Abnormal lab findings: Abnormal Labs 03/05/23 03/05/23 03/05/23 16:53 16:53 16:53 WBC 11.3 H RBC 3.78 L Hgb 10.5 L Hct 32.2 L RDW 16.6 H Neutrophils # 10.0 H Lymphocytes # 0.8 L D-Dimer 0.70 H Sodium 131 L Glucose 148 H Magnesium 1.5 L AST 38 H Troponin I Total Protein Albumin Lipase Urine Opiates Screen U Tricyclic Antidepress 03/05/23 03/05/23 03/05/23 16:53 21:04 23:22 WBC RBC Hgb Hct RDW Neutrophils # Lymphocytes # D-Dimer Sodium Glucose Magnesium AST Troponin I 0.067 H* 0.066 H* 0.086 H* Total Protein Albumin Lipase Urine Opiates Screen U Tricyclic Antidepress 03/06/23 03/06/23 03/06/23 05:45 05:45 08:40 WBC 12.1 H RBC 3.59 L Hgb 10.0 L Hct 30.7 L RDW 16.6 H Neutrophils # 10.3 H Lymphocytes # D-Dimer Sodium 133 L Glucose 132 H Magnesium AST Troponin I Total Protein 6.2 L Albumin 3.4 L Lipase 17 L Urine Opiates Screen Detected H U Tricyclic Antidepress Detected H - Diagnostic Findings Chest x-ray: image reviewed CT scan - chest: image reviewed Assessment and Plan Assessment: Acute hypoxemic respiratory failure, of unclear etiology. Her respiratory failure may impart be related to fluid overload/heart failure as well as atypical pneumonia. History of hypertension. History of chronic bronchial asthma. History of seizure disorder. History of hypothyroidism. History of gastroesophageal reflux disease. History of Crohn's disease, diverticulosis, and irritable bowel syndrome. History of migraine cephalgia. History of pancreatitis. History of anxiety/depression/bipolar disorder/PTSD. History of ongoing tobacco use. Plan: Plan dated 03/06/2023. The patient was not a particularly good historian, and became very agitated, when we started asking her questions. In fact, she started demanding Suboxone, stating that if she did not get it, she was going to leave the hospital. Her chest x-ray was potentially consistent with fluid overload and/or atypical pneumonia. Her BMP was elevated, but a pro-calcitonin level was ordered. The patient is an every day smoker. Her initial complaints including dizziness, and shortness of breath. Labs, x-rays, medications are reviewed. She was placed on DuoNeb's, and antibiotics in the form of Levaquin. The patient's drug screen was positive for opiates, and try cyclic antidepressants. Additional recommendations and suggestions are forthcoming. Prognosis is certainly guarded. Time with Patient: Greater than 30
--- NOTE | 2023-03-06 12:42 | CA ---
Transthoracic Echo Report Name: Stacey Mistry Age: 38 Gender: F : 1985 Exam Date: 03/06/2023 11:04 Exam Location: [facility] Ht (in): 66 Wt (lb): 188 Ordering Physician: Franky Hernadez Attending/Referring Phys: Head Bone Grinder Marlene Hector RDCS Procedure CPT: Indications: elevated troponins, sepsis Cardiac Hx: DM, high cholesterol Technical Quality: Good Contrast 1: Total Dose (mL): Contrast 2: Total Dose (mL): MEASUREMENTS (Male / Female) Normal Values 2D ECHO LV Diastolic Diameter PLAX 4.6 cm 4.2 - 5.9 / 3.9 - 5.3 cm LV Systolic Diameter PLAX 3.3 cm IVS Diastolic Thickness 1.3 cm 0.6 - 1.0 / 0.6 - 0.9 cm LVPW Diastolic Thickness 1.4 cm 0.6 - 1.0 / 0.6 - 0.9 cm LV Relative Wall Thickness 0.6 RV Internal Dim ED PLAX 3.1 cm LA Systolic Diameter LX 3.6 cm 3.0 - 4.0 / 2.7 - 3.8 cm LV Diastolic Volume MOD BP 89.9 cm??? 67 - 155 / 56 - 104 cm??? LV Systolic Volume MOD BP 36.3 cm??? 22 - 58 / 19 - 49 cm??? LV Ejection Fraction MOD BP 59.6 % >= 55 % LV Cardiac Index MOD BP 2176.7 cm???/min???m??? LV Diastolic Volume MOD 4C 88.7 cm??? LV Systolic Volume MOD 4C 24.7 cm??? LV Ejection Fraction MOD 4C 72.2 % LV Cardiac Index MOD 4C 2599.1 cm???/min???m??? LV Diastolic Length 4C 8.1 cm LV Systolic Length 4C 6.2 cm LV Diastolic Volume MOD 2C 92.0 cm??? LV Systolic Volume MOD 2C 47.0 cm??? LV Ejection Fraction MOD 2C 48.9 % LV Cardiac Index MOD 2C 1828.4 cm???/min???m??? LV Diastolic Length 2C 8.0 cm LV Systolic Length 2C 7.4 cm LA Volume 68.3 cm??? 18 - 58 / 22 - 52 cm??? LA Volume Index 33.8 cm???/m??? 16 - 28 cm???/m??? M-MODE Aortic Root Diameter MM 3.4 cm MV E Point Septal Separation 0.4 cm AV Cusp Separation MM 2.5 cm DOPPLER AV Peak Velocity 175.2 cm/s AV Peak Gradient 12.3 mmHg AI Peak Velocity 383.0 cm/s AI Peak Gradient 58.7 mmHg AI Pressure Half Time 1321.6 ms MV Area PHT 3.9 cm??? Mitral E Point Velocity 106.2 cm/s Mitral A Point Velocity 100.2 cm/s Mitral E to A Ratio 1.1 MV Deceleration Time 196.0 ms MV E' Velocity 8.0 cm/s Mitral E to MV E' Ratio 13.3 TR Peak Velocity 285.4 cm/s TR Peak Gradient 32.6 mmHg Right Ventricular Systolic Press 39.9 mmHg FINDINGS Left Ventricle Left ventricular ejection fraction is estimated at 55-60 %. Left ventricular cavity size normal. Mild LVH. No obvious regional wall motion abnormality. Normal global LV systolic function. No significant diastolic dysfunction. Right Ventricle Normal right ventricular size. RVSP estimated at 30 mmHg Right Atrium Normal right atrial size. Left Atrium Mild left atrial dilatation. Mitral Valve Structurally normal mitral valve. Mild mitral regurgitation. Aortic Valve Trileaflet aortic valve. Mild aortic regurgitation. Tricuspid Valve Structurally normal tricuspid valve. Mild tricuspid regurgitation. Pulmonic Valve Pulmonic valve not well visualized. No pulmonic regurgitation. Pericardium No pericardial effusion. Aorta Normal size aortic root and proximal ascending aorta. CONCLUSIONS Normal LV size and wall thickness and systolic function. LVEF estimated at 55% No obvious regional wall motion abnormality abnormality No significant diastolic dysfunction Mild MR and mild TR Mild left atrial dilatation dilatation RVSP estimated at 30 mmHg which is mildly elevated for the age. No significant difference when compared to prior echo from December 2022 Previewed by: Dr Frank Munoz (Electronically Signed) Final Date: 06 March 2023 12:41
[2023-03-06] MEDS: IBUPROFEN 600 MG TAB PO SCH ×3 (14:14→20:59)
--- NOTE | 2023-03-06 15:10 | P.CRDCN ---
History of Present Illness Consult date: 03/06/23 History of present illness: HISTORY OF PRESENTING ILLNESS 38-year-old female with past medical history of asthma, CAD disorder, thyroid disease, Crohn's disease, fibromyalgia. She was a drug user and has quit since 2019 and he is maintained on Suboxone therapy. She is also a chronic smoker and is trying to quit. December 2022 she had severe shortness of breath. At that time she was 28 weeks . She also had preeclampsia. For this she was transferred to [facility] where she had her elevated at 29 weeks with a baby. She had extensive testing done at [facility]. Since then she has worsening shortness of breath in January for which she was previously hospitalized. Currently she is admitted again to the hospital with worsening shortness of breath for last 3-[address] chest shows bilateral multifocal interstitial pneumonitis. Her echocardiogram shows a preserved LV size and systolic function. Sodium 133, potassium 3.9, BUN 7, creatinine 0.8. Troponin 0.06 and 0.08 which is most likely due to hypoxia. Her urine was positive for opiates and TCA REVIEW OF SYSTEMS 14 point review of system is negative except what is mentioned above in HPI. PHYSICAL EXAMINATION Vital signs reviewed. Head: Normocephalic. Eyes: Sclerae nonicteric. Neck: Brisk carotid upstroke, no jugular venous distention. Lungs: Diffuse crackles and rhonchi in bilateral lung oden. Heart: Regular rate and rhythm, S1-S2, no S3, no murmur or rub. Abdomen: Soft nontender, positive bowel sounds no organomegaly. Extremities: No edema, intact distal pulses. Neuro: Alert, oritented, no focal deficits ASSESSMENT Acute hypoxic respiratory failure Dyspnea on exertion Multifocal bilateral interstitial pneumonitis Essential hypertension, controlled History of seizure disorder History of hypogonadism History of Crohn's disease History of drug use, and remission since 2019 on Suboxone Active tobacco smoker. Denies any vaping or marijuana smoking PLAN Patient's shortness of breath is less likely cardiac. She does not have any acute coronary syndrome and her mildly elevated troponins because of hypoxia. We will order one more troponin level to see the trend Obtain an ABG Obtain medical records from [facility] including pulmonology consult and CT chest, and discharge summary Patient's echocardiogram shows preserved LV systolic function. Past Medical History Past Medical History: Asthma, Fibromyalgia, GERD/Reflux, Hypertension, Neurologic Disorder, Seizure Disorder, Thyroid Disorder Additional Past Medical History / Comment(s): crohns disease, diverticulosis, ibs, chronic colitis.,carpal tunnel solo wrists, anemia, chronic back pain , migraines, pinched nerves, Hx fall in June and broke old fracture above right ankle- wears boot., frequent nausea, last seizure 1 month ago., hx pancreatitis. Scoliosis History of Any Multi-Drug Resistant Organisms: MRSA Past Surgical History: Adenoidectomy, Appendectomy, Cholecystectomy, Orthopedic Surgery, Tonsillectomy Additional Past Surgical History / Comment(s): EGD/colonoscopy, right ankle surgery, broken nose surgery Past Anesthesia/Blood Transfusion Reactions: Previous Problems w/ Anesthesia, Postoperative Nausea & Vomiting (PONV) Additional Past Anesthesia/Blood Transfusion Reaction / Comment(s): hallucinations x1 Past Psychological History: Anxiety, Bipolar, Depression, PTSD Smoking Status: Current every day smoker Past Alcohol Use History: None Reported Past Drug Use History: Marijuana - Past Family History Father Family Medical History: Diabetes Mellitus, Hyperlipidemia Mother Family Medical History: Cancer, CVA/TIA, Deep Vein Thrombosis (DVT), Osteoarthritis (OA), Thyroid Disorder Additional Family Medical History / Comment(s): Extensive tattoos throughout body Medications and Allergies Home Medications Medication Instructions Recorded Confirmed Type Famotidine [Pepcid] 20 mg PO BID 03/06/20 03/05/23 History Loratadine [Claritin] 10 mg PO DAILY 07/14/20 03/05/23 History Gabapentin [Neurontin] 1,200 mg PO TID 10/01/20 03/06/23 History Butalb/APAP/Caff 50-325-40Mg 1 tab PO Q6H PRN 11/18/20 03/05/23 History [Fioricet 50-325-40] Folic Acid 1 mg PO DAILY 02/06/21 03/05/23 History Metoclopramide [Reglan] 10 mg PO TID PRN #15 tab 08/02/22 03/05/23 Rx Albuterol Inhaler [Ventolin Hfa 2 puff INHALATION RT-Q6H PRN 09/11/22 03/05/23 History Inhaler] Omeprazole 40 mg PO BID 09/11/22 03/06/23 History Prochlorperazine [Compazine] 10 mg PO TID PRN 09/11/22 03/05/23 History Buprenorphine HCl/Naloxone HCl 1 film SL TID 03/05/23 03/05/23 History [Suboxone 8 mg-2 mg Sl Film] DULoxetine HCL [Cymbalta] 60 mg PO DAILY 03/05/23 03/05/23 History Diclofenac Sodium Gel [Voltaren 1% 2 gm TOPICAL QID 03/05/23 03/05/23 History Gel] Hydrocortisone Cream 1 applic TOPICAL BID 03/05/23 03/05/23 History [Hydrocortisone 2.5% Cream] Ibuprofen [Motrin] 600 mg PO Q6H PRN 03/05/23 03/05/23 History Levothyroxine Sodium [Synthroid] 175 mcg PO DAILY 03/05/23 03/06/23 History Magnesium Oxide [Mag-Ox] 400 mg PO BID 03/05/23 03/05/23 History Montelukast [Singulair] 10 mg PO DAILY 03/05/23 03/05/23 History NIFEdipine XL [Procardia XL] 60 mg PO DAILY 03/05/23 03/05/23 History Fcy-Rluo-Qnebn Acid 1 cap PO DAILY 03/05/23 03/05/23 History [-U Capsule (formulary)] QUEtiapine [SEROquel] 200 mg PO HS 03/05/23 03/05/23 History clonazePAM [KlonoPIN] 0.5 mg PO BID 03/05/23 03/05/23 History Acetaminophen Tab [Tylenol Tab] 1,000 mg PO Q6HR PRN 03/06/23 03/06/23 History Ergocalciferol [Vitamin D2 (1250 1,250 mcg PO WEEKLY 03/06/23 03/06/23 History Mcg = 41058 Iu)] Lidocaine 5% Oint [Xylocaine 5% 1 applic TOPICAL TID PRN 03/06/23 03/06/23 History Oint] Ondansetron Odt [Zofran Odt] 8 mg PO BID PRN 03/06/23 03/06/23 History PARoxetine HCL [Paxil] 40 mg PO DAILY 03/06/23 03/06/23 History Slow Release Iron 45mg 1 tab PO DAILY 03/06/23 03/06/23 History hydroCHLOROthiazide [Hydrodiuril] 25 mg PO DAILY 03/06/23 03/06/23 History levETIRAcetam [Keppra] 500 mg PO BID 03/06/23 03/06/23 History predniSONE See Taper PO DIRECTED 03/06/23 03/06/23 History Allergies Allergy/AdvReac Type Severity Reaction Status Date / Time granisetron HCl [From Kytril] Allergy Severe Anaphylaxis Verified 03/05/23 16:46 azithromycin Allergy Rash/Hives Verified 03/05/23 16:46 baclofen Allergy Rash/Hives Verified 03/05/23 16:46 butorphanol [From Stadol] Allergy Rash/Hives Verified 03/05/23 16:46 butorphanol tartrate Allergy Rash/Hives Verified 03/05/23 16:46 [From Stadol] Cephalosporins Allergy Rash/Hives Verified 03/05/23 16:46 cyclobenzaprine Allergy Unknown Verified 03/05/23 16:46 [From Flexeril] dicloxacillin Allergy Rash/Hives Verified 03/05/23 16:46 granisetron [From Kytril] Allergy Anaphylaxis Verified 03/05/23 16:46 ketorolac Allergy Rash/Hives Verified 03/05/23 16:46 ketorolac tromethamine Allergy Rash/Hives Verified 03/05/23 16:46 [From Toradol] meperidine Allergy Unknown Verified 03/05/23 16:46 meperidine HCl [From Demerol] Allergy Swelling Verified 03/05/23 16:46 pregabalin [From Lyrica] Allergy Unknown Verified 03/05/23 16:46 risperidone [From Risperdal] Allergy Dyspnea Verified 03/05/23 16:46 sulfamethoxazole Allergy Rash/Hives Verified 03/05/23 16:46 [From Bactrim] trimethoprim [From Bactrim] Allergy Rash/Hives Verified 03/05/23 16:46 haloperidol [From Haldol] AdvReac Aggitation, Verified 03/05/23 16:46 can't sit still methylprednisolone AdvReac Vomiting & Verified 03/05/23 16:46 [From Medrol] Headache Physical Exam Vitals: Vital Signs Temp Pulse Resp BP Pulse Ox 03/06/23 12:00 90 20 162/89 90 L 03/06/23 11:57 92 L 03/06/23 11:52 92 03/06/23 11:40 89 03/06/23 10:35 78 18 134/84 96 03/06/23 10:05 81 20 96 03/06/23 10:00 84 26 H 148/91 96 03/06/23 09:13 85 17 148/91 96 03/06/23 08:28 92 L 03/06/23 08:19 96 03/06/23 08:14 94 L 03/06/23 08:09 105 H 03/06/23 08:00 102 H 28 H 138/86 88 L 03/06/23 07:47 98.6 F 89 22 138/86 92 L 03/06/23 06:14 76 18 133/87 92 L 03/06/23 06:00 92 26 H 91 L 03/06/23 05:52 88 19 91 L 03/06/23 00:00 80 22 163/109 97 03/05/23 23:00 89 26 H 145/95 96 03/05/23 22:58 89 18 145/95 96 03/05/23 22:56 93 28 H 145/95 84 L 03/05/23 22:00 108/62 03/05/23 21:00 91 56 H 158/102 95 03/05/23 20:00 79 28 H 137/88 98 03/05/23 19:00 87 13 148/92 98 03/05/23 18:30 86 22 133/90 98 03/05/23 18:00 91 22 133/81 97 03/05/23 17:30 98 18 141/92 96 03/05/23 17:07 101 H 18 03/05/23 17:00 94 18 127/98 96 03/05/23 16:54 98 18 03/05/23 16:51 92 L 03/05/23 16:46 20 03/05/23 16:44 98.8 F 102 H 24 127/98 87 L Results 03/06/23 05:45 03/06/23 05:45 Cardiac Enzymes 03/05/23 03/05/23 03/05/23 Range/Units 16:53 16:53 21:04 AST 38 H (14-36) U/L Troponin I 0.067 H* 0.066 H* (0.000-0.034) ng/mL 03/05/23 03/06/23 Range/Units 23:22 05:45 AST 32 (14-36) U/L Troponin I 0.086 H* (0.000-0.034) ng/mL Coagulation 03/05/23 Range/Units 16:53 PT 10.7 (10.0-12.5) sec APTT 25.9 (22.0-30.0) sec CBC 03/05/23 03/06/23 Range/Units 16:53 05:45 WBC 11.3 H 12.1 H (3.8-10.6) k/uL RBC 3.78 L 3.59 L (3.80-5.40) m/uL Hgb 10.5 L 10.0 L (11.4-16.0) gm/dL Hct 32.2 L 30.7 L (34.0-46.0) % Plt Count 343 372 (150-450) k/uL Comprehensive Metabolic Panel 03/05/23 03/06/23 Range/Units 16:53 05:45 Sodium 131 L 133 L (137-145) mmol/L Potassium 3.5 3.9 (3.5-5.1) mmol/L Chloride 98 101 (98-107) mmol/L Carbon Dioxide 22 24 (22-30) mmol/L BUN 8 7 (7-17) mg/dL Creatinine 0.57 0.54 (0.52-1.04) mg/dL Glucose 148 H 132 H (74-99) mg/dL Calcium 8.8 9.2 (8.4-10.2) mg/dL AST 38 H 32 (14-36) U/L ALT 15 14 (4-34) U/L Alkaline Phosphatase 85 85 (38-126) U/L Total Protein 6.3 6.2 L (6.3-8.2) g/dL Albumin 3.5 3.4 L (3.5-5.0) g/dL Current Medications Generic Name Dose Route Start Last Admin Trade Name Freq PRN Reason Stop Dose Admin Acetaminophen 650 mg 03/06/23 03:42 03/06/23 14:14 Acetaminophen Tab 325 Mg Tab PO 650 mg Q4HR PRN Administration Fever and/ or Pain Albuterol/Ipratropium 3 ml 03/06/23 10:06 Ipratropium-Albuterol 3 Ml Neb INHALATION RT-Q2H PRN Shortness Of Breath Or Wheezing Albuterol/Ipratropium 3 ml 03/06/23 12:00 03/06/23 11:39 Ipratropium-Albuterol 3 Ml Neb INHALATION 3 ml RT-Q4H JAMEL Administration Buprenorphine/Naloxone 1 each 03/06/23 10:30 03/06/23 10:37 Buprenorphine-Nalox 8-2 Mg Tab 1 Each Tab.Subl SL 1 each TID JAMEL Administration Clonazepam 0.5 mg 03/05/23 23:45 03/06/23 08:45 Clonazepam 0.5 Mg Tab PO 0.5 mg BID JAMEL Administration Duloxetine HCl 60 mg 03/06/23 09:00 03/06/23 08:45 Duloxetine Hcl 60 Mg Capsule.Dr PO 60 mg DAILY JAMEL Administration Famotidine 20 mg 03/06/23 21:00 Famotidine 20 Mg Tab PO BID JAMEL Gabapentin 1,200 mg 03/06/23 10:15 03/06/23 10:36 Gabapentin 400 Mg Cap PO 1,200 mg TID JAMEL Administration Heparin Sodium (Porcine) 5,000 unit 03/06/23 08:00 03/06/23 07:46 Heparin Sodium,Porcine 5,000 Unit/Ml 1 Ml Vial SQ Not Given Q8HR JAMEL Sodium Chloride 1,000 mls @ 20 mls/hr 03/05/23 20:30 03/05/23 22:56 Saline 0.9% IV 20 mls/hr .Q24H JAMEL Administration Levofloxacin 750 mg/ IV 150 mls @ 100 mls/hr 03/07/23 05:00 Solution IVPB Q24H [facility] Protocol Ibuprofen 600 mg 03/06/23 14:15 03/06/23 14:14 Ibuprofen 600 Mg Tab PO 600 mg QID JAMEL Administration Levothyroxine Sodium 176 mcg 03/06/23 06:30 03/06/23 06:28 Levothyroxine 88 Mcg Tab PO 176 mcg DAILY@0630 JAMEL Administration Loratadine 10 mg 03/06/23 09:00 03/06/23 08:45 Loratadine 10 Mg Tab PO 10 mg DAILY JAMEL Administration Montelukast Sodium 10 mg 03/06/23 09:00 03/06/23 08:45 Montelukast 10 Mg Tab PO 10 mg DAILY JAMEL Administration Morphine Sulfate 4 mg 03/05/23 20:23 03/06/23 07:52 Morphine Sulfate 4 Mg/Ml Syringe IV 4 mg Q4HR PRN Administration Severe Pain (Scale 7 to 10) Naloxone HCl 0.2 mg 03/05/23 20: Naloxone 0.4 Mg/Ml 1 Ml Vial IV Q2M PRN Opioid Reversal Nifedipine 60 mg 03/06/23 09:00 03/06/23 08:49 Nifedipine Xl 60 Mg Tab.Er.24 PO 60 mg DAILY JAMEL Administration Ondansetron HCl 4 mg 03/05/23 20:23 03/06/23 14:45 Ondansetron 4 Mg/2 Ml Vial IVP 4 mg Q8HR PRN Administration Nausea And Vomiting Pantoprazole Sodium 40 mg 03/06/23 07:30 03/06/23 07:44 Pantoprazole 40 Mg Tablet PO 40 mg AC-BID JAMEL Administration Quetiapine Fumarate 200 mg 03/05/23 23:45 03/06/23 00:46 Quetiapine 200 Mg Tab PO 200 mg HS JAMEL Administration 03/06/23 05:45 03/06/23 05:45
[2023-03-06 15:40] LABS: ABG Base Excess 1.2 mmol/L; ABG HCO3 26 mmol/L (21-25); ABG Oxygen Saturation 93.2 % (94-97); ABG PCO2 41 mmHg (35-45); ABG PH 7.41 (7.35-7.45); ABG PO2 71 mmHg (83-108); ABG TCO2 27 mmol/L (19-24); Allen Test Performed? Yes
[2023-03-06] MEDS: FAMOTIDINE 20 MG TAB PO SCH (20:58)
[2023-03-06] MEDS: SODIUM CHLORIDE 0.9% 1,000 ML IV SCH (20:58)
[2023-03-07] MEDS: ONDANSETRON 4 MG/2 ML VIAL IVP PRN ×2 (02:16→13:27)
[2023-03-07] MEDS: IPRATROPIUM-ALBUTEROL 3 ML NEB INHALATION SCH ×5 (03:46→20:22)
[2023-03-07] MEDS: LEVOFLOXACIN 750MG-D5W PMX 750 MG in DEXTROSE/WATER 1 150ML.BAG IVPB SCH (05:07)
[2023-03-07] MEDS: PANTOPRAZOLE 40 MG TABLET PO SCH ×2 (06:31→17:03)
[2023-03-07] MEDS: LEVOTHYROXINE 88 MCG TAB PO SCH (06:32)
[2023-03-07] MEDS: LORATADINE 10 MG TAB PO SCH (09:19)
[2023-03-07] MEDS: clonazePAM 0.5 MG TAB PO SCH ×2 (09:19→21:40)
[2023-03-07] MEDS: MONTELUKAST 10 MG TAB PO SCH (09:19)
[2023-03-07] MEDS: FAMOTIDINE 20 MG TAB PO SCH ×2 (09:20→20:53)
[2023-03-07] MEDS: IBUPROFEN 600 MG TAB PO SCH ×2 (09:20→12:23)
[2023-03-07] MEDS: DULoxetine HCL 60 MG CAPSULE.DR PO SCH (09:20)
[2023-03-07] MEDS: GABAPENTIN 400 MG CAP PO SCH ×3 (09:20→21:40)
[2023-03-07] MEDS: BUPRENORPHINE-NALOX 8-2 MG TAB 1 EACH TAB.SUBL SL SCH ×3 (09:21→20:54)
[2023-03-07] MEDS: HEPARIN SODIUM,PORCINE 5,000 UNIT/ML 1 ML VIAL SQ SCH ×2 (09:25→15:19)
[2023-03-07] MEDS: ACETAMINOPHEN TAB 325 MG TAB PO PRN (11:25)
--- NOTE | 2023-03-07 11:47 | P.PN ---
Subjective Progress Note Date: 03/07/23 Principal diagnosis: Shortness of breath. Pulmonary consult dated 03/06/2023. 38-year-old female who presented to the emergency department, on March 05, complaining of shortness of breath, and dizziness. The patient is seen in the emergency department, room 7. She apparently has history of asthma, fibromyalgia, acid reflux disease, hypertension, seizure disorder, thyroid disease, Crohn's disease, diverticulosis, irritable bowel syndrome, carpal tunnel syndrome, among other things. In the emergency room, the patient was on oxygen, at 6 L. She was getting saline at 20 mL an hour. Her N-terminal proBNP was 4860. She was adamant about getting Suboxone. She stated that if she did not get a, she was given her side or so about AGAINST MEDICAL ADVICE. She became very agitated at that point. White count 12.1, hemoglobin 10, hematocrit 30.7, and platelet count 372,000. Sodium 133, potassium 3.9, chlorides 101, CO2 24, BUN 70 creatinine 0.54. Glucose 132. Troponins were 0.066 0.086. Drug screen was positive for opiates and tricyclic antidepressants. She tested negative for influenza A/B, as well as RSV, and coronavirus. Chest x-ray was consistent with pulmonary edema. CT angiogram was negative for pulmonary embolism, but did show diffuse groundglass opacities, with interlobular septal thickening potentially consistent with pneumonia. Progress note dated 03/07/2023. 38-year-old female seen in the emergency department, yesterday. The patient is currently on 10 L high flow oxygen. The patient is getting saline at 20 mL an hour. The patient's CT angiogram, was negative for pulmonary embolism, but did show diffuse groundglass opacities, consistent with possible pneumonia. In addition, there may be a component of fluid overload. The patient's N-terminal proBNP on admission was 4860. Pro-calcitonin was elevated at 1.11. Testing for influenza, RSV, coronavirus, and Legionella were all negative. No new labs today. Objective - Vital Signs Vital signs: Vital Signs Temp 98.2 F 03/07/23 11:24 Pulse 86 03/07/23 11:40 Resp 19 03/07/23 11:24 BP 146/92 12/03/23 11:24 Pulse Ox 98 03/07/23 11:24 FiO2 Intake & Output 03/06/23 03/07/23 03/07/23 18:59 06:59 18:59 Intake Total 120 Balance 120 Weight 93.8 kg Intake: Oral 120 Other: Voiding Method Bedside Commode Bedside Commode # Voids 3 - Exam No acute distress, oriented 3. The patient very agitated, when asking for Suboxone. Saturations are 96% on 10 L high flow O2. HEENT examination is grossly unremarkable. Mucous membranes are moist. No oral lesions. Neck supple. Full range of motion. No adenopathy thyromegaly or neck vein distention. Cardiovascular examination reveals regular rhythm rate. S1-S2 normal. No S3 or S4. No discernible murmur noted. Heart sounds are distant. Heart rate 86 bpm. Lungs reveal scattered rhonchi and crackles. Breath sounds equal. No wheezes. Saturations are in the mid 90s on high flow nasal cannula. Abdomen soft bowel sounds are heard. No masses or tenderness. Extremities are intact. No cyanosis clubbing or edema. Skin is without rash or lesion. Neurologic examination is brief but nonfocal. - Labs CBC & Chem 7: 03/06/23 05:45 03/06/23 05:45 Labs: Abnormal Lab Results - Last 24 Hours (Table) 03/06/23 03/06/23 03/06/23 Range/Units 05:45 15:30 15:43 ABG pO2 71 L (83-108) mmHg ABG HCO3 26 H (21-25) mmol/L ABG Total CO2 27 H (19-24) mmol/L ABG O2 Saturation 93.2 L (94-97) % Troponin I 0.068 H* (0.000-0.034) ng/mL Procalcitonin 1.11 H (0.02-0.09) ng/mL Microbiology - Last 24 Hours (Table) 03/06/23 08:22 Gram Stain - Final Sputum Sputum Culture - Final Assessment and Plan Assessment: Acute hypoxemic respiratory failure, likely related to a combination of fluid overload, and pneumonia. N-terminal proBNP, and pro-calcitonin, were both elevated. History of hypertension. History of chronic bronchial asthma. History of seizure disorder. History of hypothyroidism. History of gastroesophageal reflux disease. History of Crohn's disease, diverticulosis, and irritable bowel syndrome. History of migraine cephalgia. History of pancreatitis. History of anxiety/depression/bipolar disorder/PTSD. History of ongoing tobacco use. Plan: Plan dated 03/06/2023. The patient was not a particularly good historian, and became very agitated, when we started asking her questions. In fact, she started demanding Suboxone, stating that if she did not get it, she was going to leave the hospital. Her chest x-ray was potentially consistent with fluid overload and/or atypical pneumonia. Her BMP was elevated, but a pro-calcitonin level was ordered. The patient is an every day smoker. Her initial complaints including dizziness, and shortness of breath. Labs, x-rays, medications are reviewed. She was placed on DuoNeb's, and antibiotics in the form of Levaquin. The patient's drug screen was positive for opiates, and try cyclic antidepressants. Additional recommendations and suggestions are forthcoming. Prognosis is certainly guarded. Plan dated 03/07/2023. The patient continues on breathing treatments, Levaquin, and oxygen therapy. We will continue to follow make recommendations along the way. Prognosis is certainly guarded. Yesterday, the patient was quite agitated, as she wanted Suboxone. He apparently was ordered by the primary hospitalist service. We will continue to follow make recommendations along the way. Prognosis is guarded. We will continue to wean her oxygen down, as her saturations improved. Time with Patient: Less than 30
--- NOTE | 2023-03-07 14:56 | P.PN ---
Subjective Progress Note Date: 03/07/23 Hospital course: Patient is a very pleasant 38-year-old female with a past medical history of Crohn's disease, fibromyalgia with history of opioid dependence/abuse maintained on Suboxone, hypertension, seizure disorder, hypothyroidism, anxiety, depression, bipolar disorder, nicotine dependence, and cannabinoid use. She presented to the emergency department with a chief complaint of exertional dyspnea accompanied by dizziness, nausea, and vomiting. Upon initial arrival in the emergency department patient was found with an O2 sat of 87% requiring oxygen supplementation and nebulizer treatments. She underwent full evaluation in the emergency department. Labs completed and reviewed. CBC showing mild leukocytosis with WBC count of 11.3 and normocytic anemia with hemoglobin of 10.5. Coagulation profile normal findings with the exception of elevated d- dimer of 0.70. BMP revealing mild hyponatremia with sodium of 131 and hyperglycemia with glucose of 148 otherwise normal findings. Lactic acid normal findings at 1.5. Magnesium was low at 1.5. Liver profile showing slightly elevated AST of 38 otherwise normal findings. Troponin was elevated at 0.067 with a proBNP of 4860. Influenza A, influenza B, RSV, and Covid PCR were negative. EKG was completed showing normal sinus rhythm at 96 bpm with no significant T-wave or ST abnormalities showing no signs of acute ischemia. Chest x-ray showing diffuse increased lung markings with prominent pulmonary vascular markings concerning for pulmonary edema. CTA negative for pulmonary emboli showing diffuse ground glass opacities predominantly throughout both lungs with regions of intralobular septal thickening. Magnesium was replaced and patient was started on IV antibiotics with Levaquin 750 mg every 24 hours. Patient was then admitted under our services with consultation to cardiology and pulmonology. Troponins trended overnight resulting at 0.067, 0.066, and 0.086. Physical exam: Patient seen and fully evaluated at bedside. Patient having increased oxygenation needs and is currently on 10 L O2 via high flow nasal cannula. Vital signs reviewed and stable. General: Ill-appearing, moderate distress secondary to increased oxygenation n eeds Derm: Skin warm and dry, normal coloration for ethnicity. Head: Atraumatic, normocephalic and symmetric. Eyes: EOMs intact, no lid lag, and anicteric sclera Mouth: no lip lesions, mucus membranes moist Cardiovascular: regular rate and rhythm with normal S1S2, no murmur, positive posterior tibial pulses bilaterally, and cap refill < 2 seconds. Lungs: Respirations increased effort with no accessory muscle usage. Lungs diminished with decreased airflow and significant diffuse expiratory wheezes bilaterally. Patient on 10 L O2 via high flow nasal cannula Abdominal: soft, nontender to palpation, no guarding, no appreciable organomegaly Ext: ROM intact. No gross muscle atrophy, no edema, no contractures Neuro: Speech clear, face symmetrical and CN II-XII grossly intact with no noted focal neuro deficits Psych: Alert and oriented to person, place, time, and situation. Appropriate and pleasant affect. Assessment and Plan of Care: Multifocal pneumonia resulting in sepsis with Acute hypoxic respiratory failure Elevated troponins Opioid dependence/abuse maintained on Suboxone Fibromyalgia Crohn's disease Hypertension Seizure disorder Hypothyroidism Anxiety and depression Bipolar disorder Asthma with continued nicotine dependence and cannabinoid use -Cardiology following, discussed plan of care. Awaiting hospital records from [facility] from patient's recent admission and cardiac/pulmonary workup. -Echocardiogram completed and results reviewed showing an EF of 55-60% with no obvious structural or valvular abnormalities reported, patient did have an RVSP of 30 mmHg which is reported to be mildly elevated for her age. -Pulmonology following, reviewed documentation on chart and appreciate recommendations -Continue Telemetry monitoring -Continue home medication regimen with Suboxone, Klonopin 0.5 mg twice daily, Depakote 1500 mg daily, Synthroid 176 g daily, lisinopril/hydrochlorothiazide 20/25 mg daily, Singulair 10 mg daily, Procardia 60 mg daily, Protonix 40 mg twice daily, Seroquel 20 mg nightly, and simvastatin 20 mg daily. -Cardiac diet -Legionella antigen negative -Sputum culture pending -Blood cultures pending Data and imaging reviewed: -Blood hCG negative for . Urine drug screen positive for opiates and tricyclic antidepressants. Urine Legionella negative. Pro-calcitonin elevated at 1.11. -Vital signs reviewed. But pressure 146/92, heart rate 87, respiratory rate 19, temp 98.2F, SpO2 of 90% on 10 L O2. CODE STATUS: Full code DVT prophylaxis: Heparin Anticipated discharge date: Clinical course to determine Anticipated discharge place: Clinical course to determine Patient was seen independently by Nurse Pracitioner. This document was prepared using [employer] dictation software. Please allow for errors in event organizer, while rare they do occur. Objective - Vital Signs Vital signs: Vital Signs Temp 98.1 F 03/07/23 04:00 Pulse 97 03/07/23 07:53 Resp 26 H 03/07/23 04:00 BP 113/75 03/07/23 04:00 Pulse Ox 95 03/07/23 07:45 FiO2 Intake & Output 03/06/23 03/07/23 03/07/23 18:59 06:59 18:59 Weight 93.8 kg Other: Voiding Method Bedside Commode # Voids 3 - Labs CBC & Chem 7: 03/06/23 05:45 03/06/23 05:45 Labs: Abnormal Lab Results - Last 24 Hours (Table) 03/06/23 03/06/23 03/06/23 Range/Units 05:45 08:40 15:30 ABG pO2 71 L (83-108) mmHg ABG HCO3 26 H (21-25) mmol/L ABG Total CO2 27 H (19-24) mmol/L ABG O2 Saturation 93.2 L (94-97) % Troponin I (0.000-0.034) ng/mL Procalcitonin 1.11 H (0.02-0.09) ng/mL Urine Opiates Screen Detected H (NotDetected) U Tricyclic Antidepress Detected H (NotDetected) 03/06/23 Range/Units 15:43 ABG pO2 (83-108) mmHg ABG HCO3 (21-25) mmol/L ABG Total CO2 (19-24) mmol/L ABG O2 Saturation (94-97) % Troponin I 0.068 H* (0.000-0.034) ng/mL Procalcitonin (0.02-0.09) ng/mL Urine Opiates Screen (NotDetected) U Tricyclic Antidepress (NotDetected)
[2023-03-07] MEDS ORDERED: hydrOXYzine HCL 25 MG TAB PO PRN (16:03)
[2023-03-07] MEDS ORDERED: SODIUM CHLORIDE 0.65% NASAL SPRAY 44 ML BTL NASAL PRN (16:05)
[2023-03-07] MEDS ORDERED: ONDANSETRON ODT 8 MG TAB.RAPDIS PO PRN (16:47)
[2023-03-07 16:59] LABS: Anisocytosis Slight; HCT 29.5 % (34.0-46.0); HGB 9.6 gm/dL (11.4-16.0); MCH 28.3 pg (25.0-35.0); MCHC 32.6 g/dL (31.0-37.0); MCV 86.6 fL (80.0-100.0); Mean Platelet Volume 7.7; Platelet Count 412 k/uL (150-450); RBC 3.41 m/uL (3.80-5.40); RDW 16.8 % (11.5-15.5); WBC 8.5 k/uL (3.8-10.6)
[2023-03-07] MEDS: KETOROLAC 15 MG/ML 1 ML VIAL IVP PRN (17:03)
[2023-03-07] MEDS: LIDOCAINE 4% PATCH TOPICAL SCH (17:03)
[2023-03-07] MEDS: ACETAMINOPHEN TAB 500 MG TAB PO PRN (17:04)
[2023-03-07 17:32] LABS: ALT 14 U/L (4-34); AST 26 U/L (14-36); African American GFR (CKD) >90 (>60 ml/min/1.73 sqM); Albumin 3.4 g/dL (3.5-5.0); Alkaline Phosphatase 80 U/L (38-126); Anion Gap 10 mmol/L; Blood Urea Nitrogen 4 mg/dL (7-17); Calcium 8.6 mg/dL (8.4-10.2); Carbon Dioxide 24 mmol/L (22-30); Chloride 101 mmol/L (98-107); Glucose 89 mg/dL (74-99); Magnesium 1.6 mg/dL (1.6-2.3); Non-African American GFR(CKD) >90 (>60 ml/min/1.73 sqM); Potassium 3.7 mmol/L (3.5-5.1); Sodium 135 mmol/L (137-145); Total Bilirubin 0.3 mg/dL (0.2-1.3)
--- NOTE | 2023-03-07 19:58 | P.PN ---
Subjective Progress Note Date: 03/07/23 Progress note: Patient is agitated and is demanding more pain medications. I reviewed her and report hospital records and essentially patient had multifocal pneumonia unlikely to be interstitial pneumonitis. There is also a differential of eosinophilic pneumonitis at that time. I will have our pulmonology colleagues comment on this. Patient's ABG showed an acute hypoxic respiratory failure. HISTORY OF PRESENTING ILLNESS 38-year-old female with past medical history of asthma, CAD disorder, thyroid disease, Crohn's disease, fibromyalgia. She was a drug user and has quit since 2019 and he is maintained on Suboxone therapy. She is also a chronic smoker and is trying to quit. December 2022 she had severe shortness of breath. At that time she was 28 weeks . She also had preeclampsia. For this she was transferred to [facility] where she had her elevated at 29 weeks with a baby. She had extensive testing done at [facility]. Since then she has worsening shortness of breath in January for which she was previously hospitalized. Currently she is admitted again to the hospital with worsening shortness of breath for last 3-[address] chest shows bilateral multifocal interstitial pneumonitis. Her echocardiogram shows a preserved LV size and systolic function. Sodium 133, potassium 3.9, BUN 7, creatinine 0.8. Troponin 0.06 and 0.08 which is most likely due to hypoxia. Her urine was positive for opiates and TCA REVIEW OF SYSTEMS 14 point review of system is negative except what is mentioned above in HPI. PHYSICAL EXAMINATION Vital signs reviewed. Head: Normocephalic. Eyes: Sclerae nonicteric. Neck: Brisk carotid upstroke, no jugular venous distention. Lungs: Diffuse crackles and rhonchi in bilateral lung oden. Heart: Regular rate and rhythm, S1-S2, no S3, no murmur or rub. Abdomen: Soft nontender, positive bowel sounds no organomegaly. Extremities: No edema, intact distal pulses. Neuro: Alert, oritented, no focal deficits ASSESSMENT Acute hypoxic respiratory failure Dyspnea on exertion Multifocal bilateral interstitial pneumonitis Essential hypertension, controlled History of seizure disorder History of hypogonadism History of Crohn's disease History of drug use, and remission since 2018 on Suboxone Active tobacco smoker. Denies any vaping or marijuana smoking PLAN I reviewed her and report hospital records and essentially patient had multifocal pneumonia unlikely to be interstitial pneumonitis. There is also a differential of eosinophilic pneumonitis at that time. I will have our pulmonology colleagues comment on this Patient's echocardiogram shows preserved LV systolic function. Her shortness of breath is less likely cardiac. She had mildly elevated troponin which can be explained by her hypoxia which was also seen on her ABG. At this time c ardiology team will sign off. Please reconsult us in case of any questions. Objective - Vital Signs Vital signs: Vital Signs Temp 98.2 F 03/07/23 11:24 Pulse 97 03/07/23 16:13 Resp 19 03/07/23 15:25 BP 128/79 03/07/23 15:25 Pulse Ox 94 L 03/07/23 15:25 FiO2 Intake & Output 03/07/23 03/07/23 03/08/23 06:59 18:59 06:59 Intake Total 1740 Balance 1740 Weight 93.8 kg Intake: Oral 1740 Other: Voiding Method Bedside Commode Bedside Commode # Voids 3 6 - Labs CBC & Chem 7: 03/07/23 15:42 03/07/23 15:42 Labs: Abnormal Lab Results - Last 24 Hours (Table) 03/06/23 03/07/23 03/07/23 Range/Units 05:45 15:42 15:42 RBC 3.41 L (3.80-5.40) m/uL Hgb 9.6 L (11.4-16.0) gm/dL Hct 29.5 L (34.0-46.0) % RDW 16.8 H (11.5-15.5) % Sodium 135 L (137-145) mmol/L BUN 4 L (7-17) mg/dL Total Protein 6.0 L (6.3-8.2) g/dL Albumin 3.4 L (3.5-5.0) g/dL Procalcitonin 1.11 H (0.02-0.09) ng/mL Microbiology - Last 24 Hours (Table) 03/06/23 05:45 Blood Culture - Preliminary Blood 03/06/23 08:22 Gram Stain - Final Sputum Sputum Culture - Final
[2023-03-07] MEDS: QUEtiapine 200 MG TAB PO SCH (20:53)
[2023-03-08] MEDS: HEPARIN SODIUM,PORCINE 5,000 UNIT/ML 1 ML VIAL SQ SCH ×3 (00:25→16:50)
[2023-03-08] MEDS: IPRATROPIUM-ALBUTEROL 3 ML NEB INHALATION SCH ×6 (01:28→20:59)
[2023-03-08] MEDS: LEVOFLOXACIN 750MG-D5W PMX 750 MG in DEXTROSE/WATER 1 150ML.BAG IVPB SCH (04:47)
[2023-03-08] MEDS: KETOROLAC 15 MG/ML 1 ML VIAL IVP PRN ×3 (04:47→17:35)
[2023-03-08] MEDS: PANTOPRAZOLE 40 MG TABLET PO SCH ×2 (05:54→16:50)
[2023-03-08] MEDS: BUPRENORPHINE-NALOX 8-2 MG TAB 1 EACH TAB.SUBL SL SCH ×3 (05:54→19:57)
[2023-03-08] MEDS: LEVOTHYROXINE 88 MCG TAB PO SCH (05:54)
[2023-03-08] MEDS: clonazePAM 0.5 MG TAB PO SCH ×2 (05:54→21:43)
[2023-03-08] MEDS: DULoxetine HCL 60 MG CAPSULE.DR PO SCH (09:13)
[2023-03-08] MEDS: LIDOCAINE 4% PATCH TOPICAL SCH (09:13)
[2023-03-08] MEDS: FAMOTIDINE 20 MG TAB PO SCH ×2 (09:13→21:43)
[2023-03-08] MEDS: LORATADINE 10 MG TAB PO SCH (09:13)
[2023-03-08] MEDS: MONTELUKAST 10 MG TAB PO SCH (09:13)
[2023-03-08] MEDS: GABAPENTIN 400 MG CAP PO SCH ×3 (09:13→21:43)
[2023-03-08 09:49] LABS: Anisocytosis Slight; HCT 32.2 % (34.0-46.0); HGB 10.3 gm/dL (11.4-16.0); Hypochromasia Slight; MCHC 31.8 g/dL (31.0-37.0); MCV 87.8 fL (80.0-100.0); Mean Platelet Volume 6.8; Platelet Count 426 k/uL (150-450); RBC 3.67 m/uL (3.80-5.40); RDW 16.8 % (11.5-15.5); WBC 7.5 k/uL (3.8-10.6)
[2023-03-08 10:30] LABS: ALT 13 U/L (4-34); AST 28 U/L (14-36); African American GFR (CKD) >90 (>60 ml/min/1.73 sqM); Albumin 3.4 g/dL (3.5-5.0); Alkaline Phosphatase 79 U/L (38-126); Anion Gap 11 mmol/L; Blood Urea Nitrogen 4 mg/dL (7-17); Calcium 9.1 mg/dL (8.4-10.2); Carbon Dioxide 23 mmol/L (22-30); Chloride 105 mmol/L (98-107); Glucose 93 mg/dL (74-99); Magnesium 1.6 mg/dL (1.6-2.3); Non-African American GFR(CKD) >90 (>60 ml/min/1.73 sqM); Potassium 4.2 mmol/L (3.5-5.1); Sodium 139 mmol/L (137-145); Total Bilirubin 0.4 mg/dL (0.2-1.3); Total Protein 6.2 g/dL (6.3-8.2)
--- NOTE | 2023-03-08 11:03 | P.PN ---
Subjective Progress Note Date: 03/08/23 38-year-old female who presented to the emergency department, on March 05, complaining of shortness of breath, and dizziness. The patient is seen in the emergency department, room 7. She apparently has history of asthma, fibromyalgia, acid reflux disease, hypertension, seizure disorder, thyroid disea se, Crohn's disease, diverticulosis, irritable bowel syndrome, carpal tunnel syndrome, among other things. In the emergency room, the patient was on oxygen, at 6 L. She was getting saline at 20 mL an hour. Her N-terminal proBNP was 4860. She was adamant about getting Suboxone. She stated that if she did not get a, she was given her side or so about AGAINST MEDICAL ADVICE. She became very agitated at that point. White count 12.1, hemoglobin 10, hematocrit 30.7, and platelet count 372,000. Sodium 133, potassium 3.9, chlorides 101, CO2 24, BUN 70 creatinine 0.54. Glucose 132. Troponins were 0.066 0.086. Drug screen was positive for opiates and tricyclic antidepressants. She tested negative for influenza A/B, as well as RSV, and coronavirus. Chest x-ray was consistent with pulmonary edema. CT angiogram was negative for pulmonary embolism, but did show diffuse groundglass opacities, with interlobular septal thickening potentially consistent with pneumonia. Progress note dated 03/07/2023. 38-year-old female seen in the emergency department, yesterday. The patient is currently on 10 L high flow oxygen. The patient is getting saline at 20 mL an hour. The patient's CT angiogram, was negative for pulmonary embolism, but did show diffuse groundglass opacities, consistent with possible pneumonia. In addition, there may be a component of fluid overload. The patient's N-terminal proBNP on admission was 4860. Pro-calcitonin was elevated at 1.11. Testing for influenza, RSV, coronavirus, and Legionella were all negative. No new labs today. On 03/08/2023, I'm seeing the patient for a follow-up. She was hospitalized for acute hypoxic respiratory failure and she was as high as 50 L nasal cannula. She had diffuse groundglass bilateral pulmonary infiltrates, suggestive of a pneumonia. The viral screen came back all negative. Legionella was negative. The patient is currently being treated for an atypical pneumonia. She remains on Levaquin 750 mg IV every 24 hours. She is not taking any form of steroids for now. She is slightly improved and oxygenation is also improving. She is down to 4 L nasal cannula. She continues to have crackles in the mid and lower lung oden bilaterally. She is feeling nauseated. She is also known to have other comorbidities including seizure disorder, Crohn's disease, irritable bowel syndrome, diverticulosis, hypertension, reflux, fibromyalgia, she does not take any form of immunosuppressive agents. She is a chronic smoker and she is trying to quit and she is smoking minimal according to her. Echocardiogram was essentially within normal limits pH is a preserved LV function. Objective - Vital Signs Vital signs: Vital Signs Temp 98.9 F 03/08/23 04:39 Pulse 98 03/08/23 07:49 Resp 24 03/08/23 04:39 BP 144/91 03/08/23 04:39 Pulse Ox 97 03/08/23 07:37 FiO2 Intake & Output 03/07/23 03/08/23 03/08/23 18:59 06:59 18:59 Intake Total 1740 960 0 Output Total 1600 Balance 1740 -640 0 Weight 93.7 kg Intake: Oral 1740 960 0 Output: Urine 1600 Other: Voiding Method Bedside Commode Bedside Commode # Voids 6 4 - Exam No acute distress, oriented 3. The patient very agitated, when asking for Suboxone. Saturations are 96% on 4 L high flow O2. HEENT examination is grossly unremarkable. Mucous membranes are moist. No oral lesions. Neck supple. Full range of motion. No adenopathy thyromegaly or neck vein distention. Cardiovascular examination reveals regular rhythm rate. S1-S2 normal. No S3 or S4. No discernible murmur noted. Heart sounds are distant. Lungs reveal scattered rhonchi and crackles. Breath sounds equal. No wheezes. Abdomen soft bowel sounds are heard. No masses or tenderness. Extremities are intact. No cyanosis clubbing or edema. Skin is without rash or lesion. Neurologic examination is brief but nonfocal. - Labs CBC & Chem 7: 03/08/23 09:27 03/08/23 09:16 Labs: Abnormal Lab Results - Last 24 Hours (Table) 03/07/23 03/07/23 03/08/23 Range/Units 15:42 15:42 09:16 RBC 3.41 L (3.80-5.40) m/uL Hgb 9.6 L (11.4-16.0) gm/dL Hct 29.5 L (34.0-46.0) % RDW 16.8 H (11.5-15.5) % Sodium 135 L (137-145) mmol/L BUN 4 L 4 L (7-17) mg/dL Total Protein 6.0 L 6.2 L (6.3-8.2) g/dL Albumin 3.4 L 3.4 L (3.5-5.0) g/dL 03/08/23 Range/Units 09:27 RBC 3.67 L (3.80-5.40) m/uL Hgb 10.3 L (11.4-16.0) gm/dL Hct 32.2 L (34.0-46.0) % RDW 16.8 H (11.5-15.5) % Sodium (137-145) mmol/L BUN (7-17) mg/dL Total Protein (6.3-8.2) g/dL Albumin (3.5-5.0) g/dL Microbiology - Last 24 Hours (Table) 03/06/23 05:45 Blood Culture - Preliminary Blood 03/06/23 08:22 Gram Stain - Final Sputum Sputum Culture - Final Assessment and Plan Plan: Acute hypoxemic respiratory failure, likely related to a combination of fluid overload, and pneumonia. The pro calcitonin was elevated. ProBNP is elevated. Echocardiogram was normal. I suspect bilateral atypical pneumonia over CHF. No signs of any significant massive fluid overload at this point in time. I'm going to repeat a chest x-ray in the morning. Currently she is down to 4 L of oxygen nasal cannula History of hypertension. History of chronic bronchial asthma. History of seizure disorder. History of hypothyroidism. History of gastroesophageal reflux disease. History of Crohn's disease, diverticulosis, and irritable bowel syndrome. History of migraine cephalgia. History of pancreatitis. History of anxiety/depression/bipolar disorder/PTSD. History of ongoing tobacco use. Plan: Continue Levaquin Repeat pro-calcitonin a.m. Repeat chest x-ray in a.m. Echocardiogram was noted Wean down FiO2 as tolerated to maintain saturation above 90% Incentive spirometer at the bedside We'll continue to follow
--- NOTE | 2023-03-08 12:33 | P.PN ---
Subjective Progress Note Date: 03/08/23 Hospital course: Patient is a very pleasant 38-year-old female with a past medical history of Crohn's disease, fibromyalgia with history of opioid dependence/abuse maintained on Suboxone, hypertension, seizure disorder, hypothyroidism, anxiety, depression, bipolar disorder, nicotine dependence, and cannabinoid use. She presented to the emergency department with a chief complaint of exertional dyspnea accompanied by dizziness, nausea, and vomiting. Upon initial arrival in the emergency department patient was found with an O2 sat of 87% requiring oxygen supplementation and nebulizer treatments. She underwent full evaluation in the emergency department. Labs completed and reviewed. CBC showing mild leukocytosis with WBC count of 11.3 and normocytic anemia with hemoglobin of 10.5. Coagulation profile normal findings with the exception of elevated d- dimer of 0.70. BMP revealing mild hyponatremia with sodium of 131 and hyperglycemia with glucose of 148 otherwise normal findings. Lactic acid normal findings at 1.5. Magnesium was low at 1.5. Liver profile showing slightly elevated AST of 38 otherwise normal findings. Troponin was elevated at 0.067 with a proBNP of 4860. Influenza A, influenza B, RSV, and Covid PCR were negative. EKG was completed showing normal sinus rhythm at 96 bpm with no significant T-wave or ST abnormalities showing no signs of acute ischemia. Chest x-ray showing diffuse increased lung markings with prominent pulmonary vascular markings concerning for pulmonary edema. CTA negative for pulmonary emboli showing diffuse ground glass opacities predominantly throughout both lungs with regions of intralobular septal thickening. Magnesium was replaced and patient was started on IV antibiotics with Levaquin 750 mg every 24 hours. Patient was then admitted under our services with consultation to cardiology and pulmonology. Troponins trended overnight resulting at 0.067, 0.066, and 0.086. Physical exam: Patient seen and fully evaluated at bedside. Patient with improved oxygenation and she is currently down to 5 L O2 via nasal cannula. Patient expressing frust ration RN stating she does not feel she is being cared for properly stating "all you are doing is giving me oxygen and I can do that myself at home". Patient again explained that she is very sick with sepsis secondary to multifocal pneumonia and she is on IV antibiotics along with multiple other medications and is not stable for discharge. Pt states that she can use her nebulizer for oxygen at home and requesting to speak with a supervisor telephone information. Vital signs reviewed and stable. General: Ill-appearing, moderate distress secondary to increased oxygenation needs Derm: Skin warm and dry, normal coloration for ethnicity. Head: Atraumatic, normocephalic and symmetric. Eyes: EOMs intact, no lid lag, and anicteric sclera Mouth: no lip lesions, mucus membranes moist Cardiovascular: regular rate and rhythm with normal S1S2, no murmur, positive posterior tibial pulses bilaterally, and cap refill < 2 seconds. Lungs: Respirations increased effort with no accessory muscle usage. Lungs diminished with decreased airflow and significant diffuse expiratory wheezes bilaterally. Patient on 10 L O2 via high flow nasal cannula Abdominal: soft, nontender to palpation, no guarding, no appreciable or ganomegaly Ext: ROM intact. No gross muscle atrophy, no edema, no contractures Neuro: Speech clear, face symmetrical and CN II-XII grossly intact with no noted focal neuro deficits Psych: Alert and oriented to person, place, time, and situation. Appropriate and pleasant affect. Assessment and Plan of Care: Multifocal pneumonia resulting in sepsis with Acute hypoxic respiratory failure Elevated troponins Opioid dependence/abuse maintained on Suboxone Fibromyalgia Crohn's disease Hypertension Seizure disorder Hypothyroidism Anxiety and depression Bipolar disorder Asthma with continued nicotine dependence and cannabinoid use -Cardiology following, reviewed documentation in chart. -Echocardiogram completed and results reviewed showing an EF of 55-60% with no obvious structural or valvular abnormalities reported, patient did have an RVSP of 30 mmHg which is reported to be mildly elevated for her age. -Pulmonology following, reviewed documentation in chart and appreciate recommendations -Continue Telemetry monitoring -IV antibiotics with Levaquin 750 mg IVPB daily. -Continue DuoNebs scheduled four times daily and as needed for wheezing/shortness of breath. -Continue to encourage incentive spirometry use 10-15 times hourly while awake. -Continue home medication regimen with Suboxone, Klonopin 0.5 mg twice daily, Depakote 1500 mg daily, Synthroid 176 g daily, lisinopril/hydrochlorothiazide 20/25 mg daily, Singulair 10 mg daily, Procardia 60 mg daily, Protonix 40 mg twice daily, Seroquel 20 mg nightly, and simvastatin 20 mg daily. -Legionella antigen negative -Sputum culture contaminated specimen. -Blood cultures showing no growth to date Data and imaging reviewed: -Labs completed and reviewed. CBC showing stable normocytic anemia with hemoglobin of 10.3 and continued resolution of leukocytosis with WBC count of 7.5. BMP revealing resolution of hyponatremia with sodium of 139, normal potassium of 4.2 and stable renal function with BUN of 4, creatinine 0.56 and GFR greater than 90. Magnesium is low at 1.6 and order placed for replacement. -Vital signs reviewed. Blood pressure 165/89, heart rate 92, respiratory rate 16, temp 98.2F, SpO2 of 96% on 5 L O2 via nasal cannula. CODE STATUS: Full code DVT prophylaxis: Heparin Anticipated discharge date: Clinical course to determine Anticipated discharge place: Clinical course to determine Patient was seen independently by Nurse Pracitioner. This document was prepared using [employer] dictation software. Please allow for errors in cigarette making machine operator, while rare they do occur. I reviewed the documentation as provided by the YOUSIF above, who is the original author of this note. I agree with the documented assessment and plan, with the following changes: none Objective - Vital Signs Vital signs: Vital Signs Temp 98.9 F 03/08/23 04:39 Pulse 98 03/08/23 07:49 Resp 24 03/08/23 04:39 BP 144/91 03/08/23 04:39 Pulse Ox 97 03/08/23 07:37 FiO2 Intake & Output 03/07/23 03/08/23 03/08/23 18:59 06:59 18:59 Intake Total 1740 960 Output Total 1600 Balance 1740 -640 Weight 93.7 kg Intake: Oral 1740 960 Output: Urine 1600 Other: Voiding Method Bedside Commode Bedside Commode # Voids 6 4 - Labs CBC & Chem 7: 03/08/23 09:27 03/08/23 09:16 Labs: Abnormal Lab Results - Last 24 Hours (Table) 03/07/23 03/07/23 Range/Units 15:42 15:42 RBC 3.41 L (3.80-5.40) m/uL Hgb 9.6 L (11.4-16.0) gm/dL Hct 29.5 L (34.0-46.0) % RDW 16.8 H (11.5-15.5) % Sodium 135 L (137-145) mmol/L BUN 4 L (7-17) mg/dL Total Protein 6.0 L (6.3-8.2) g/dL Albumin 3.4 L (3.5-5.0) g/dL Microbiology - Last 24 Hours (Table) 03/06/23 05:45 Blood Culture - Preliminary Blood 03/06/23 08:22 Gram Stain - Final Sputum Sputum Culture - Final
[2023-03-08] MEDS: MAGNESIUM SULFATE-D5W PMX 1 GM in DEXTROSE/WATER 1 100ML.BAG IVPB SCH ×2 (12:42→16:50)
--- NOTE | 2023-03-08 13:56 | P.CN ---
Psychiatric Consult - . Consult date: 03/08/23 Consult:: 03/08/23 13:49 IDENTIFYING DATA: This patient is a 38-year-old female who currently lives with her mom and her fianc. She has 1 daughter, she collects SSD. REASON FOR REFERRAL: Psychiatry was consulted for psychiatric evaluation HISTORY OF PRESENT ILLNESS: The patient presented to the hospital initially on 03/05 for shortness of breath hypoxic and also anxiety. Patient was admitted for respiratory failure. She was found to have atypical pneumonia and has been started on treatment. Patient's urine drug team is positive for opiates and TCAs. E Learning Specialist spoke with nurse practitioner about patient's care and wanted to evaluate whether patient is able to have decision making capacity and if there are any adjustments to her medications needed. Patient was seen at the bedside today and agreeable to speak to fiction and nonfiction writer prose. She appeared to be mildly irritable with the fiction and nonfiction writer prose, she was mainly complaining about her care in the hospital. She compared this hospital to other hospitals where she received better care. She claims that she "vomited and no one helped me". She also states that her medications are not given to her on time. She was mildly tearful when describing her stressor of not being with her daughter, states that she wants to go home. She claims that she realizes that she is not in good health and needs to be in the hospital however and believes that she could possibly have more medical issues or problems if she was to be discharged early. She claims that she is still somewhat short of breath, or nasal cannula. States that she has been admitted several times for pneumonia. She states that her mood is "fine" affect was incongruent and appeared to be upset at times. States that she does not have anxiety at this time. Claims that her sleep and appetite are fair. We spoke about her psychiatric medications and states that she has an outpatient psychiatrist and wants to remain on the same medications. Does not want them adjusted. At this time patient denies any suicidal or homical ideations, intent or plan. Patient denies any auditory, visual hallucinations and denies any paranoia or delusions. Patients admits to using cigarettes only, denies any other recreational drug use. PAST PSYCHIATRIC HISTORY: Patient has a a history of "bipolar disorder" depression, anxiety PTSD. Patient is currently on Seroquel, Cymbalta, Klonopin and Suboxone. She claims that she was last psychiatrically admitted several years ago at [facility]. She does claim that she has an outpatient psychiatrist however did not endorse who this was. Patient denies any history of suicide attempts in the past. PAST MEDICAL HISTORY: Past Medical History Past Medical History: Asthma, Fibromyalgia, GERD/Reflux, Hypertension, Neurologic Disorder, Seizure Disorder, Thyroid Disorder Additional Past Medical History / Comment(s): crohns disease, diverticulosis, ibs, chronic colitis.,carpal tunnel solo wrists, anemia, chronic back pain , migraines, pinched nerves, Hx fall in June and broke old fracture above right ankle- wears boot., frequent nausea, last seizure 1 month ago., hx pancreatitis. Scoliosis History of Any Multi-Drug Resistant Organisms: MRSA Past Surgical History: Adenoidectomy, Appendectomy, Cholecystectomy, Orthopedic Surgery, Tonsillectomy Additional Past Surgical History / Comment(s): EGD/colonoscopy, right ankle surgery, broken nose surgery Past Anesthesia/Blood Transfusion Reactions: Previous Problems w/ Anesthesia, Postoperative Nausea & Vomiting (PONV) Additional Past Anesthesia/Blood Transfusion Reaction / Comment(s): hallucinations x1 Past Psychological History: Anxiety, Bipolar, Depression, PTSD Smoking Status: Current every day smoker Past Alcohol Use History: None Reported Past Drug Use History: Marijuana. ALLERGIES: as per EMR. CHEMICAL DEPENDENCY HISTORY: as per HPI. She states that she has a history of opiate abuse and currently on Suboxone FAMILY PSYCHIATRIC/SUBSTANCE USE HISTORY: Claims there is significant anxiety and depression in her family SOCIAL HISTORY: Patient was born and raised locally however did not share where and currently living with her fianc, mother and daughter, collects Social Security disability. Patient did not give further social history. MENTAL STATUS EXAM: General Appearance: Patient appears to be stated age is alert, irritable at times. Patient appears to have fair hygiene and grooming wearing hospital gown with fair eye contact. Behavior: Patient is irritable at times, defensive and demanding. Speech: Patient's speech is fluent and nonpressured. Mood/Affect: Patient reports their mood is "ok", affect is incongruent and appears upset at times Suicidality/Homicidality: Patient denies having any suicidal or homicidal ideation intent or plan. Perceptions: Patient denies any visual hallucinations and denies any auditory hallucinations Though content/process: There is no evidence of any delusional thought content and thought process is linear and goal-directed. Focused on her care and also focused on discharge. Memory and concentration: AOX3, grossly intact for the purposes of this session. Can spell "WORLD" backwards Judgment and insight: poor IMPRESSIONS: Mood disorder unspecified, rule out bipolar disorder versus major depressive disorder Personality disorder unspecified, likely cluster B personality disorder hx of PTSD Nicotine dependence PLAN: -At this time patient DOES NOT meet criteria for inpatient psychiatric admission. -Patient DOES have general decision making capacity at this time and is able to reason through and communicate/appreciate the risks, benefits and alternatives to treatment. -Would recommend the following medication changes/additions: Continue current psychiatric medications as prescribed. -Communicated plan to patient's nurse and REGIONAL RETAIL SALES MANAGER -Psychiatry will sign off at this time -Please contact with any questions.
--- NOTE | 2023-03-08 19:55 | XR ---
EXAMINATION TYPE: XR chest 2V DATE OF EXAM: 03/08/2023 7:27 PM CLINICAL INDICATION:Female, 38 years old with history of pneumonia; [facility] COMPARISON: Chest radiographs from 03/05/2023. TECHNIQUE: XR chest 2V Frontal and lateral views of the chest. FINDINGS: Lungs/Pleura: There is no evidence of pleural effusion, focal consolidation, or pneumothorax. Pulmonary vascularity: Unremarkable. Heart/mediastinum: Cardiomediastinal silhouette is unremarkable. Musculoskeletal: No acute osseous pathology. IMPRESSION: Mild pulmonary vascular congestion.
[2023-03-08] MEDS: QUEtiapine 200 MG TAB PO SCH (21:44)
[2023-03-09] MEDS: KETOROLAC 15 MG/ML 1 ML VIAL IVP PRN ×2 (00:05→16:21)
[2023-03-09] MEDS: HEPARIN SODIUM,PORCINE 5,000 UNIT/ML 1 ML VIAL SQ SCH ×3 (00:07→15:52)
[2023-03-09] MEDS: IPRATROPIUM-ALBUTEROL 3 ML NEB INHALATION SCH ×5 (00:28→15:39)
[2023-03-09] MEDS: ACETAMINOPHEN TAB 500 MG TAB PO PRN (04:05)
[2023-03-09] MEDS: LEVOFLOXACIN 750MG-D5W PMX 750 MG in DEXTROSE/WATER 1 150ML.BAG IVPB SCH (04:07)
[2023-03-09] MEDS: BUPRENORPHINE-NALOX 8-2 MG TAB 1 EACH TAB.SUBL SL SCH ×2 (06:22→15:15)
[2023-03-09] MEDS: PANTOPRAZOLE 40 MG TABLET PO SCH (06:23)
[2023-03-09] MEDS: LEVOTHYROXINE 88 MCG TAB PO SCH (06:23)
[2023-03-09] MEDS: clonazePAM 0.5 MG TAB PO SCH (06:23)
[2023-03-09] MEDS: LORATADINE 10 MG TAB PO SCH (08:13)
[2023-03-09] MEDS: FAMOTIDINE 20 MG TAB PO SCH (08:13)
[2023-03-09] MEDS: DULoxetine HCL 60 MG CAPSULE.DR PO SCH (08:13)
[2023-03-09] MEDS: LIDOCAINE 4% PATCH TOPICAL SCH (08:13)
[2023-03-09] MEDS: GABAPENTIN 400 MG CAP PO SCH ×2 (08:13→16:21)
[2023-03-09] MEDS: MONTELUKAST 10 MG TAB PO SCH (08:14)
[2023-03-09 08:38] VITALS: RESP 17
[2023-03-09 09:31] LABS: ALT 13 U/L (4-34); AST 24 U/L (14-36); African American GFR (CKD) >90 (>60 ml/min/1.73 sqM); Albumin 3.5 g/dL (3.5-5.0); Alkaline Phosphatase 95 U/L (38-126); Anion Gap 7 mmol/L; Blood Urea Nitrogen 4 mg/dL (7-17); Calcium 9.3 mg/dL (8.4-10.2); Carbon Dioxide 29 mmol/L (22-30); Chloride 102 mmol/L (98-107); Glucose 111 mg/dL (74-99); Magnesium 1.9 mg/dL (1.6-2.3); Non-African American GFR(CKD) >90 (>60 ml/min/1.73 sqM); Potassium 4.1 mmol/L (3.5-5.1); Sodium 138 mmol/L (137-145); Total Bilirubin 0.4 mg/dL (0.2-1.3); Total Protein 6.4 g/dL (6.3-8.2)
[2023-03-09 09:44] LABS: Anisocytosis Slight; HCT 33.3 % (34.0-46.0); HGB 10.4 gm/dL (11.4-16.0); Hypochromasia Slight; MCH 26.9 pg (25.0-35.0); MCHC 31.2 g/dL (31.0-37.0); MCV 86.5 fL (80.0-100.0); Mean Platelet Volume 7.7; Platelet Count 470 k/uL (150-450); RBC 3.85 m/uL (3.80-5.40); RDW 16.5 % (11.5-15.5); WBC 8.3 k/uL (3.8-10.6)
--- NOTE | 2023-03-09 10:10 | P.PN ---
Subjective Progress Note Date: 03/09/23 38-year-old female who presented to the emergency department, on March 05, complaining of shortness of breath, and dizziness. The patient is seen in the emergency department, room 7. She apparently has history of asthma, fibromyalgia, acid reflux disease, hypertension, seizure disorder, thyroid disea se, Crohn's disease, diverticulosis, irritable bowel syndrome, carpal tunnel syndrome, among other things. In the emergency room, the patient was on oxygen, at 6 L. She was getting saline at 20 mL an hour. Her N-terminal proBNP was 4860. She was adamant about getting Suboxone. She stated that if she did not get a, she was given her side or so about AGAINST MEDICAL ADVICE. She became very agitated at that point. White count 12.1, hemoglobin 10, hematocrit 30.7, and platelet count 372,000. Sodium 133, potassium 3.9, chlorides 101, CO2 24, BUN 70 creatinine 0.54. Glucose 132. Troponins were 0.066 0.086. Drug screen was positive for opiates and tricyclic antidepressants. She tested negative for influenza A/B, as well as RSV, and coronavirus. Chest x-ray was consistent with pulmonary edema. CT angiogram was negative for pulmonary embolism, but did show diffuse groundglass opacities, with interlobular septal thickening potentially consistent with pneumonia. Progress note dated 03/07/2023. 38-year-old female seen in the emergency department, yesterday. The patient is currently on 10 L high flow oxygen. The patient is getting saline at 20 mL an hour. The patient's CT angiogram, was negative for pulmonary embolism, but did show diffuse groundglass opacities, consistent with possible pneumonia. In addition, there may be a component of fluid overload. The patient's N-terminal proBNP on admission was 4860. Pro-calcitonin was elevated at 1.11. Testing for influenza, RSV, coronavirus, and Legionella were all negative. No new labs today. On 03/08/2023, I'm seeing the patient for a follow-up. She was hospitalized for acute hypoxic respiratory failure and she was as high as 15 L nasal cannula. She had diffuse groundglass bilateral pulmonary infiltrates, suggestive of a pneumonia. The viral screen came back all negative. Legionella was negative. The patient is currently being treated for an atypical pneumonia. She remains on Levaquin 750 mg IV every 24 hours. She is not taking any form of steroids for now. She is slightly improved and oxygenation is also improving. She is down to 4 L nasal cannula. She continues to have crackles in the mid and lower lung oden bilaterally. She is feeling nauseated. She is also known to have other comorbidities including seizure disorder, Crohn's disease, irritable bowel syndrome, diverticulosis, hypertension, reflux, fibromyalgia, she does not take any form of immunosuppressive agents. She is a chronic smoker and she is trying to quit and she is smoking minimal according to her. Echocardiogram was essentially within normal limits pH is a preserved LV function. On 03/09/2023, the patient is on 3 L of oxygen by nasal cannula. Her oxygenation is improved compared to yesterday. The patient is has no new complaints. The patient is being treated for atypical pneumonia for now. Her current antibiotic coverage includes Levaquin 750 mg every 24 hours. She continues to have crackles bilaterally. No interval worsening in her breathing. The viral screen was negative. Legionella urine antigen was negative. She is afebrile. She is hemodynamically stable. Otherwise, rest of the medications remain unchanged. The patient had a follow-up chest x-ray from yesterday that showed stable findings with increased interstitial markings bilaterally. The patient was also seen by psychiatry yesterday that diagnosed her with a more disorder, personality disorder and history of PTSD. Objective - Vital Signs Vital signs: Vital Signs Temp 98.3 F 03/09/23 08:17 Pulse 82 03/09/23 08:47 Resp 17 03/09/23 08:17 BP 194/93 03/09/23 09:39 Pulse Ox 95 03/09/23 08:17 FiO2 Intake & Output 03/08/23 03/09/23 03/09/23 18:59 06:59 18:59 Intake Total 240 Balance 240 Intake: Oral 240 Other: Voiding Method Bedside Commode Bedside Commode Bedside Commode # Voids 2 # Bowel Movements 0 - Exam No acute distress, oriented 3. The patient very agitated, when asking for Suboxone. Saturations are 96% on 3 L high flow O2. HEENT examination is grossly unremarkable. Mucous membranes are moist. No oral lesions. Neck supple. Full range of motion. No adenopathy thyromegaly or neck vein distention. Cardiovascular examination reveals regular rhythm rate. S1-S2 normal. No S3 or S4. No discernible murmur noted. Heart sounds are distant. Lungs reveal scattered rhonchi and crackles. Breath sounds equal. No wheezes. Abdomen soft bowel sounds are heard. No masses or tenderness. Extremities are intact. No cyanosis clubbing or edema. Skin is without rash or lesion. Neurologic examination is brief but nonfocal. - Labs CBC & Chem 7: 03/09/23 08:51 03/09/23 08:51 Labs: Abnormal Lab Results - Last 24 Hours (Table) 03/08/23 03/09/23 03/09/23 Range/Units 09:16 08:51 08:51 Hgb 10.4 L (11.4-16.0) gm/dL Hct 33.3 L (34.0-46.0) % RDW 16.5 H (11.5-15.5) % Plt Count 470 H (150-450) k/uL BUN 4 L 4 L (7-17) mg/dL Glucose 111 H (74-99) mg/dL Total Protein 6.2 L (6.3-8.2) g/dL Albumin 3.4 L (3.5-5.0) g/dL Microbiology - Last 24 Hours (Table) 03/06/23 05:45 Blood Culture - Preliminary Blood Assessment and Plan Plan: Acute hypoxemic respiratory failure, likely related to a combination of fluid overload, and pneumonia. The pro calcitonin was elevated. ProBNP is elevated. Echocardiogram was normal. I suspect bilateral atypical pneumonia over CHF. No signs of any significant massive fluid overload at this point in time. I'm going to repeat a chest x-ray in the morning. Currently she is down to 3 L of oxygen nasal cannula History of hypertension. Blood pressures quite elevated at this point in time. The patient is currently on Procardia 60 mg by mouth daily. History of chronic bronchial asthma. History of seizure disorder. History of hypothyroidism. History of gastroesophageal reflux disease. History of Crohn's disease, diverticulosis, and irritable bowel syndrome. History of migraine cephalgia. History of pancreatitis. History of anxiety/depression/bipolar disorder/PTSD. History of ongoing tobacco use. Plan: Continue Levaquin Repeat pro-calcitonin a.m. is also still pending for now Will wean down to FiO2 down to 2 L and work our way down and possibly get off the oxygen today Restart hydrochlorothiazide and continue Procardia dose of 120 mg by mouth daily Monitor blood pressure Echocardiogram was noted Wean down FiO2 as tolerated to maintain saturation above 90% Incentive spirometer at the bedside We'll continue to follow
[2023-03-09] MEDS ORDERED: hydrALAZINE HCL 20 MG/ML 1 ML VIAL IVP PRN (10:15)
[2023-03-09] MEDS ORDERED: hydroCHLOROthiazide 25 MG TAB PO SCH (10:15)
[2023-03-09 13:03] VITALS: BP 156/96
--- NOTE | 2023-03-09 13:27 | P.EN ---
Patient will require nebulizer as well as home oxygen at 2 L via nasal cannula to manage COPD. Patient will require nebulized treatments of DuoNeb 4 times daily and as needed
[2023-03-09 17:19] VITALS: PULSE 70; TEMP 98
--- NOTE | 2023-03-09 20:32 | DS ---
DISCHARGE SUMMARY FINAL DIAGNOSES: 1. Acute asthma/chronic obstructive pulmonary disease acute exacerbation with acute hypoxic respiratory failure. 2. Possible chronic hypoxic respiratory failure. 3. Bilateral pneumonia. 4. Hypertension. 5. Chronic bronchial asthma. 6. History of seizure. 7. Hypothyroidism. 8. History of Crohn's. 9. Migrainous cephalalgia. 10.History of pancreatitis. 11.Anxiety, depression, bipolar, posttraumatic stress disorder. DISCHARGE DISPOSITION: The patient will be discharged in stable condition and guarded prognosis. Total time taken 35 minutes. HISTORY OF PRESENT ILLNESS: This is a 38-year-old woman with a past medical history admitted with shortness of breath and pneumonia and multiple other medical issues as mentioned. The patient has been treated in conjunction with Dr. Archer. Broad-spectrum IV antibiotics given. The labs improved. The patient has also improved significantly. The patient is extremely keen on going home at this time. The patient will be discharged in stable condition and guarded prognosis following at medications. The pulse ox 83% on room air. PHYSICAL EXAMINATION: VITAL SIGNS: Stable. CARDIOVASCULAR: S1, S2 muffled. RESPIRATIONS: Bilateral scattered rhonchi and crackles. DISCHARGE INSTRUCTIONS/MEDICATIONS: The patient will be discharged on DuoNeb q.i.d. and p.r.n. and Symbicort b.i.d. Followup labs with Dr. Joan Meeks. Follow up with Dr. Joan Meeks as well as Dr. Archer. Levaquin 750 p.o. daily for 1 week. See orders for further details. Once again, the patient will be discharged in stable condition and guarded prognosis to home, which will be arranged. MMODL / IJN: [id number] /
== END 2023-03-09 16:54 | disposition home or self-care (01) | DRG 720 ==
LOC: EC 16:43 → 3SCARD 20:25
PROVIDERS: ADMIT Hospitalist; ATTEND Hospitalist
PROC: 3E0F7SF Introduction of Other Gas into Respiratory Tract, Via Natural or Artificial Opening (ICD-10-PCS; principal; 2023-03-05)
DX: A41.9 Sepsis, unspecified organism (principal); J18.9 Pneumonia, unspecified organism; J96.01 Acute respiratory failure with hypoxia; J45.42 Moderate persistent asthma with status asthmaticus; J84.89 Other specified interstitial pulmonary diseases; E87.1 Hypo-osmolality and hyponatremia; J44.0 Chronic obstructive pulmonary disease with (acute) lower respiratory infection; J44.1 Chronic obstructive pulmonary disease with (acute) exacerbation; I50.9 Heart failure, unspecified; G40.909 Epilepsy, unspecified, not intractable, without status epilepticus; E03.9 Hypothyroidism, unspecified; Z79.890 Hormone replacement therapy; F31.9 Bipolar disorder, unspecified; K21.9 Gastro-esophageal reflux disease without esophagitis; K50.90 Crohn's disease, unspecified, without complications; G89.29 Other chronic pain; D64.9 Anemia, unspecified; I11.0 Hypertensive heart disease with heart failure; R79.89 Other specified abnormal findings of blood chemistry; I42.9 Cardiomyopathy, unspecified; K57.30 Diverticulosis of large intestine without perforation or abscess without bleeding; R51.9 Headache, unspecified; E83.42 Hypomagnesemia; F43.10 Post-traumatic stress disorder, unspecified; Z20.822 Contact with and (suspected) exposure to COVID-19; F60.9 Personality disorder, unspecified; I25.10 Atherosclerotic heart disease of native coronary artery without angina pectoris; M41.9 Scoliosis, unspecified; I08.3 Combined rheumatic disorders of mitral, aortic and tricuspid valves; M79.7 Fibromyalgia; Z87.01 Personal history of pneumonia (recurrent); Z88.1 Allergy status to other antibiotic agents; Z88.8 Allergy status to other drugs, medicaments and biological substances; Z79.899 Other long term (current) drug therapy; Z91.81 History of falling; Z88.2 Allergy status to sulfonamides
CPT/HCPCS: 36415; 36600; 71045; 71046; 71275; 80053; 80306; 82805; 83605; 83690; 83735; 83880; 84100; 84145; 84484; 84703; 85025; 85027; 85379; 85610; 85652; 85730; 86140; 87040; 87070; 87205; 87449; 87636; 93005; 93306; 94640; 94760; 96365; 96366; 96367; 96372; 96375; 96376; 99291

== ENCOUNTER → 2023-05-14 | Outpatient (CLI) | payer OTHER ==
[2023-05-15 04:25] LABS: Urine Alcohol Negative (Negative); Urine Barbiturate Negative (Negative); Urine Cocaine Negative (Negative); Urine Methadone Negative (Negative); Urine Opiates Negative (Negative); Urine Phencyclidine Negative (Negative)
== END | disposition home or self-care (01) ==
LOC: LABWHC1 16:19
PROVIDERS: ATTEND Family Medicine
DX: F11.20 Opioid dependence, uncomplicated (principal); F13.20 Sedative, hypnotic or anxiolytic dependence, uncomplicated; F17.200 Nicotine dependence, unspecified, uncomplicated
CPT/HCPCS: 80306

== ENCOUNTER 2024-04-19 20:35 | Emergency (ER) | payer OTHER ==
[2024-04-19 20:57] VITALS: RESP 18
[2024-04-19 21:22] LABS: Anisocytosis Slight; Basophils % (A) 0 %; Eosinophils % (A) 0 %; HCT 31.5 % (34.0-46.0); HGB 10.6 gm/dL (11.4-16.0); Lymphocytes # (A) 1.8 k/uL (1.0-4.8); Lymphocytes % (A) 23 %; MCHC 33.6 g/dL (31.0-37.0); MCV 83.4 fL (80.0-100.0); Mean Platelet Volume 7.4; Monocytes # (A) 0.7 k/uL (0-1.0); Monocytes % (A) 9 %; Neutrophils # (A) 5.2 k/uL (1.3-7.7); Neutrophils % (A) 64 %; Platelet Count 352 k/uL (150-450); RBC 3.78 m/uL (3.80-5.40); RDW 16.6 % (11.5-15.5)
[2024-04-19 21:30] LABS: ALT 15 U/L (4-34); AST 17 U/L (14-36); African American GFR (CKD) >90 (>60 ml/min/1.73 sqM); Albumin 3.9 g/dL (3.5-5.0); Alkaline Phosphatase 86 U/L (38-126); Anion Gap 11 mmol/L; Blood Urea Nitrogen 9 mg/dL (7-17); Calcium 8.7 mg/dL (8.4-10.2); Carbon Dioxide 23 mmol/L (22-30); Chloride 99 mmol/L (98-107); Glucose 128 mg/dL (74-99); Non-African American GFR(CKD) >90 (>60 ml/min/1.73 sqM); Potassium 3.1 mmol/L (3.5-5.1); Sodium 133 mmol/L (137-145); Total Bilirubin 0.2 mg/dL (0.2-1.3); Total Protein 6.7 g/dL (6.3-8.2)
[2024-04-19] MEDS: METOCLOPRAMIDE 5 MG/ML 2 ML VIAL IVP STA (21:40)
[2024-04-19] MEDS: diphenhydrAMINE 50 MG/ML 1 ML VIAL IVP STA (21:40)
[2024-04-19] MEDS: MORPHINE SULFATE 4 MG/ML SYRINGE IVP STA (21:40)
[2024-04-19] MEDS: SODIUM CHLORIDE 0.9% 1,000 ML IV STA (21:41)
[2024-04-19 21:53] LABS: Influenza A Detected (Not Detectd); Influenza B Not Detected (Not Detectd); RSV Not Detected (Not Detectd)
--- NOTE | 2024-04-19 21:57 | XR ---
EXAMINATION TYPE: XR chest 2V DATE OF EXAM: 04/19/2024 9:39 PM COMPARISON: Chest radiographs from 03/08/2023. CLINICAL INDICATION: Female, 39 years old with history of difficulty breathing; [facility] TECHNIQUE: XR chest 2V Frontal and lateral views of the chest. FINDINGS: Lungs/Pleura: There is no evidence of pleural effusion, focal consolidation, or pneumothorax. Redemo nstration of airspace opacities projecting over the spine on lateral view compared to 03/08/2023. Pulmonary vascularity: Unremarkable. Heart/mediastinum: Cardiomediastinal silhouette is unremarkable. Musculoskeletal: No acute osseous pathology. IMPRESSION: Redemonstration of possible acute infectious process involving the lower lobe seen on lateral view No acute cardiopulmonary disease/process. [facility], , 04/19/2024 9:55 PM
[2024-04-19] MEDS: IPRATROPIUM-ALBUTEROL 3 ML NEB INHALATION STA (22:09)
[2024-04-19] MEDS: predniSONE 20 MG TAB PO STA (22:39)
[2024-04-19] MEDS: POTASSIUM CHLORIDE ER 20 MEQ TAB.ER PO STA (22:39)
[2024-04-19] MEDS: LEVOFLOXACIN 750 MG TAB PO STA (22:39)
--- NOTE | 2024-04-19 22:43 | ED ---
General Adult HPI - General Chief complaint: Shortness of Breath Stated complaint: SOB Time Seen by Provider: 04/19/24 20:45 Source: patient, EMS, RN notes reviewed, old records reviewed Mode of arrival: EMS Limitations: no limitations - History of Present Illness Initial comments: Patient is a 39-year-old female presents emergency department complaining of cough, congestion, headaches for the last 2 to 3 days. Also has a sore throat. No known sick contacts. States she has a bad headache and feels like one of her typical migraines. Denies any abdominal pain, nausea, vomiting, diarrhea. Denies any chest pain. Has a history of asthma. Has inhaler at home. She presents for further evaluation at this time over concern for infection. - Related Data Home Medications Medication Instructions Recorded Confirmed Famotidine [Pepcid] 20 mg PO BID 03/06/20 03/05/23 Loratadine [Claritin] 10 mg PO DAILY 07/14/20 03/05/23 Gabapentin [Neurontin] 1,200 mg PO TID 10/01/20 03/06/23 Butalb/APAP/Caff 50-325-40Mg 1 tab PO Q6H PRN 11/18/20 03/05/23 [Fioricet 50-325-40] Folic Acid 1 mg PO DAILY 02/06/21 03/05/23 Albuterol Inhaler [Ventolin Hfa 2 puff INHALATION RT-Q6H PRN 09/11/22 03/05/23 Inhaler] Omeprazole 40 mg PO BID 09/11/22 03/06/23 Prochlorperazine [Compazine] 10 mg PO TID PRN 09/11/22 03/05/23 Buprenorphine HCl/Naloxone HCl 1 film SL TID 03/05/23 03/05/23 [Suboxone 8 mg-2 mg Sl Film] DULoxetine HCL [Cymbalta] 60 mg PO DAILY 03/05/23 03/05/23 Diclofenac Sodium Gel [Voltaren 1% 2 gm TOPICAL QID 03/05/23 03/05/23 Gel] Hydrocortisone Cream 1 applic TOPICAL BID 03/05/23 03/05/23 [Hydrocortisone 2.5% Cream] Ibuprofen [Motrin] 600 mg PO Q6H PRN 03/05/23 03/05/23 Levothyroxine Sodium [Synthroid] 175 mcg PO DAILY 03/05/23 03/06/23 Magnesium Oxide [Mag-Ox] 400 mg PO BID 03/05/23 03/05/23 Montelukast [Singulair] 10 mg PO DAILY 03/05/23 03/05/23 Irp-[id number]-Mjrfb Acid 1 cap PO DAILY 03/05/23 03/05/23 [-U Capsule (formulary)] QUEtiapine [SEROquel] 200 mg PO HS 03/05/23 03/05/23 clonazePAM [KlonoPIN] 0.5 mg PO BID 03/05/23 03/05/23 Acetaminophen Tab [Tylenol] 1,000 mg PO Q6HR PRN 03/06/23 03/06/23 Ergocalciferol [Vitamin D2 (1250 1,250 mcg PO WEEKLY 03/06/23 03/06/23 Mcg = 88453 Iu)] Lidocaine 5% Oint [Xylocaine 5% 1 applic TOPICAL TID PRN 03/06/23 03/06/23 Oint] Ondansetron Odt [Zofran ODT] 8 mg PO BID PRN 03/06/23 03/06/23 PARoxetine HCL [Paxil] 40 mg PO DAILY 03/06/23 03/06/23 Slow Release Iron 45mg 1 tab PO DAILY 03/06/23 03/06/23 hydroCHLOROthiazide [Hydrodiuril] 25 mg PO DAILY 03/06/23 03/06/23 levETIRAcetam [Keppra] 500 mg PO BID 03/06/23 03/06/23 Previous Rx's Medication Instructions Recorded Metoclopramide [Reglan] 10 mg PO TID PRN #15 tab 08/02/22 Ipratropium-Albuterol Nebulize 3 ml INHALATION RT-Q2H PRN each 03/09/23 [Duoneb 0.5 mg-3 mg/3 ml Soln] Ipratropium-Albuterol Nebulize 3 ml INHALATION RT-Q4H #100 each 03/09/23 [Duoneb 0.5 mg-3 mg/3 ml Soln] Levofloxacin [Levaquin] 750 mg PO DAILY 7 Days #7 tab 03/09/23 NIFEdipine XL [Procardia XL] 120 mg PO DAILY #60 tab 12/05/23 Albuterol Inhaler [Ventolin Hfa 2 puff INHALATION Q6H PRN #1 each 04/19/24 Inhaler] Levofloxacin [Levaquin] 750 mg PO DAILY 7 Days #7 tab 04/19/24 predniSONE [Deltasone] 40 mg PO DAILY 5 Days #10 tab 04/19/24 Allergies Allergy/AdvReac Type Severity Reaction Status Date / Time granisetron HCl [From Kytril] Allergy Severe Anaphylaxis Verified 03/05/23 16:46 azithromycin Allergy Rash/Hives Verified 03/05/23 16:46 baclofen Allergy Rash/Hives Verified 03/05/23 16:46 butorphanol [From Stadol] Allergy Rash/Hives Verified 03/05/23 16:46 butorphanol tartrate Allergy Rash/Hives Verified 03/05/23 16:46 [From Stadol] Cephalosporins Allergy Rash/Hives Verified 03/05/23 16:46 cyclobenzaprine Allergy Unknown Verified 03/05/23 16:46 [From Flexeril] dicloxacillin Allergy Rash/Hives Verified 03/05/23 16:46 granisetron [From Kytril] Allergy Anaphylaxis Verified 03/05/23 16:46 ketorolac Allergy Rash/Hives Verified 03/05/23 16:46 ketorolac tromethamine Allergy Rash/Hives Verified 03/05/23 16:46 [From Toradol] meperidine Allergy Unknown Verified 03/05/23 16:46 meperidine HCl [From Demerol] Allergy Swelling Verified 03/05/23 16:46 pregabalin [From Lyrica] Allergy Unknown Verified 03/05/23 16:46 risperidone [From Risperdal] Allergy Dyspnea Verified 03/05/23 16:46 sulfamethoxazole Allergy Rash/Hives Verified 03/05/23 16:46 [From Bactrim] trimethoprim [From Bactrim] Allergy Rash/Hives Verified 03/05/23 16:46 haloperidol [From Haldol] AdvReac Aggitation, Verified 03/05/23 16:46 can't sit still methylprednisolone AdvReac Vomiting & Verified 03/05/23 16:46 [From Medrol] Headache Review of Systems ROS Statement: Those systems with pertinent positive or pertinent negative responses have been documented in the HPI. Review of Systems: CONST: Denies fever EYES: Denies blurry vision ENT: Endorses congestion, sore throat C/V: Denies Chest pain RESP: Endorses cough, congestion GI: Denies abdominal pain : Denies dysuria SKIN: Denies rash. MSK: Denies joint pain. NEURO: Endorses headache ROS Other: All systems not noted in ROS Statement are negative. Past Medical History Past Medical History: Asthma, Fibromyalgia, GERD/Reflux, Hypertension, Neurologic Disorder, Seizure Disorder, Thyroid Disorder Additional Past Medical History / Comment(s): crohns disease, diverticulosis, ibs, chronic colitis.,carpal tunnel solo wrists, anemia, chronic back pain , migraines, pinched nerves, Hx fall in June and broke old fracture above right ankle- wears boot., frequent nausea, last seizure 1 month ago., hx pancreatitis. Scoliosis History of Any Multi-Drug Resistant Organisms: None Reported Date of last positivie culture/infection: 06/05/2015 MDRO Source:: Staphylococcus epiderpidis Past Surgical History: Adenoidectomy, Appendectomy, Cholecystectomy, Orthopedic Surgery, Tonsillectomy Additional Past Surgical History / Comment(s): EGD/colonoscopy, right ankle surgery, broken nose surgery Past Anesthesia/Blood Transfusion Reactions: Previous Problems w/ Anesthesia, Postoperative Nausea & Vomiting (PONV) Additional Past Anesthesia/Blood Transfusion Reaction / Comment(s): hallucinations x1 Past Psychological History: Anxiety, Bipolar, Depression, PTSD Smoking Status: Former smoker Past Alcohol Use History: None Reported Past Drug Use History: None Reported - Past Family History Father Family Medical History: Diabetes Mellitus, Hyperlipidemia Mother Family Medical History: Cancer, CVA/TIA, Deep Vein Thrombosis (DVT), Osteoarthritis (OA), Thyroid Disorder Additional Family Medical History / Comment(s): Extensive tattoos throughout body General Exam - General Exam Comments Initial Comments: General: Appears in mild distress secondary to headache. HEAD: Normal with no signs of head trauma. EYES: PERRLA, EOMI, conjunctiva normal, no discharge. ENT: Hearing grossly intact, normal oropharynx. RESPIRATORY: Clear breath sounds bilaterally. No wheezes, rales, or rhonchi. No hypoxia. Mild end expiratory wheezing. C/V: Regular rate and rhythm. S1 and S2 auscultated, no edema, peripheral pulses 2+ and intact throughout ABD: Abd is soft, nontender, nondistended EXT: No obvious deformity. SKIN: No rashes or lesions observed on exposed skin. NEURO: Alert and oriented x 4. No focal deficits. Limitations: no limitations Course Vital Signs 04/19/24 04/19/24 04/19/24 20:50 22:12 22:18 Temperature 98.7 F Pulse Rate 98 76 75 Respiratory 18 18 18 Rate Blood Pressure 138/91 O2 Sat by Pulse 100 Oximetry Medical Decision Making - Medical Decision Making Was pt. sent in by a medical professional or institution (MELISSA Vargas, KEY ACCOUNT MANAGER, urgent care, hospital, or [facility]...) When possible be specific @ -No Did you speak to anyone other than the patient for history (EMS, parent, family, police, friend...)? What history was obtained from this source @ -No Did you review nursing and triage notes (agree or disagree)? Why? @ -I reviewed and agree with nursing and triage notes Were old charts reviewed (outside hosp., previous admission, EMS record, old EKG, old radiological studies, urgent care reports/EKG's, [facility] records)? Report findings @ -Old charts reviewed showing history of asthma. Differential Diagnosis (chest pain, altered mental status, abdominal pain women, abdominal pain men, vaginal bleeding, weakness, fever, dyspnea, syncope, headache, dizziness, GI bleed, back pain, seizure, CVA, palpatations, mental health, musculoskeletal)? @ -Asthma, COVID, flu, RSV, pneumonia. This list is not all inclusive. EKG interpreted by me (3pts min.). @ -As above X-rays interpreted by me (1pt min.). @ -Chest x-ray shows possible left lower lobe pneumonia. CT interpreted by me (1pt min.). @ -None done U/S interpreted by me (1pt. min.). @ -None done What testing was considered but not performed or refused? (CT, X-rays, U/S, labs)? Why? @ -None What meds were considered but not given or refused? Why? @ -None Did you discuss the management of the patient with other professionals (professionals i.e. MELISSA Vargas, KEY ACCOUNT MANAGER, lab, RT, psych nurse, director of social services, shovel loader operator, teacher, command and control officer, family preservation caseworker)? Give summary @ -No Was smoking cessation discussed for >3mins.? @ -No Was critical care preformed (if so, how long)? @ -No Were there social determinants of health that impacted care today? How? (Homelessness, low income, unemployed, alcoholism, drug addiction, transportation, low edu. Level, literacy, decrease access to med. care, intermediate, rehab)? @ -No Was there de-escalation of care discussed even if they declined (Discuss DNR or withdrawal of care, Hospice)? DNR status @ -No What co-morbidities impacted this encounter? (DM, HTN, Smoking, COPD, CAD, Cancer, CVA, ARF, Chemo, Hep., AIDS, mental health diagnosis, sleep apnea, morbid obesity)? @ -None Was patient admitted / discharged? Hospital course, mention meds given and route, prescriptions, significant lab abnormalities, going to OR and other pertinent info. @ -Patient presents with upper respiratory infection symptoms. We will obtain viral swabs, basic labs, chest x-ray, screening EKG. Patient will will be given a migraine cocktail as well as a breathing treatment. Patient was in agreement this plan. Vital signs are within acceptable limits. EKG shows no signs of acute ischemia. Chest x-ray shows possible left lower lobe pneumonia. Laboratory studies remarkable for chronic anemia which is at her baseline. Patient has mild hypokalemia which is replenished. Patient has influenza A infection. On reevaluation I updated the patient. Due to the findings of pneumonia on chest x-ray she will be started on antibiotics. We also treat her asthma with oral prednisone as well as albuterol inhaler at home. She will be discharged home. Can use analgesia medications at home. Patient was in agreement this plan. She can follow-up with her PCP. Migraine is improved at this time. Patient is feeling somewhat improved. I will provide the patient with a prescription for Levaquin, prednisone, albuterol inhaler. I instructed the patient to follow up with their PCP in the next 1-3 days.. I explained that the patient should return to the emergency department if they experience any worsening symptoms. Strict return precautions were discussed with the patient. The patient expressed understanding of these instructions. I answered all questions that the patient had. The patient was discharged home in good condition with their prescriptions and follow up information. Undiagnosed new problem with uncertain prognosis? @ -No Drug Therapy requiring intensive monitoring for toxicity (Heparin, Nitro, Insulin, Cardizem)? @ -No Were any procedures done? @ -No Diagnosis/symptom? @ -Asthma, hypokalemia, influenza A infection, pneumonia Acute, or Chronic, or Acute on Chronic? @ -Acute Uncomplicated (without systemic symptoms) or Complicated (systemic symptoms)? @ -Uncomplicated Side effects of treatment? @ -No Exacerbation, Progression, or Severe Exacerbation? @ -No Poses a threat to life or bodily function? How? (Chest pain, [place], [place], pneumonia, PE, COPD, DKA, ARF, appy, cholecystitis, CVA, Diverticulitis, Homicidal, Suicidal, threat to staff... and all critical care pts) @ -Unlikely at this time - Lab Data Result diagrams: 04/19/24 21:04 04/19/24 21: Lab Results 04/19/24 04/19/24 04/19/24 Range/Units 21:04 21:04 21:04 WBC 8.0 (3.8-10.6) k/uL RBC 3.78 L (3.80-5.40) m/uL Hgb 10.6 L (11.4-16.0) gm/dL Hct 31.5 L (34.0-46.0) % MCV 83.4 (80.0-100.0) fL MCH 28.0 (25.0-35.0) pg MCHC 33.6 (31.0-37.0) g/dL RDW 16.6 H (11.5-15.5) % Plt Count 352 (150-450) k/uL MPV 7.4 Neutrophils % 64 % Lymphocytes % 23 % Monocytes % 9 % Eosinophils % 0 % Basophils % 0 % Neutrophils # 5.2 (1.3-7.7) k/uL Lymphocytes # 1.8 (1.0-4.8) k/uL Monocytes # 0.7 (0-1.0) k/uL Eosinophils # 0.0 (0-0.7) k/uL Basophils # 0.0 (0-0.2) k/uL Anisocytosis Slight Sodium 133 L (137-145) mmol/L Potassium 3.1 L (3.5-5.1) mmol/L Chloride 99 (98-107) mmol/L Carbon Dioxide 23 (22-30) mmol/L Anion Gap 11 mmol/L BUN 9 (7-17) mg/dL Creatinine 0.81 (0.52-1.04) mg/dL Est GFR (CKD-EPI)AfAm >90 (>60 ml/min/1.73 sqM) Est GFR (CKD-EPI)NonAf >90 (>60 ml/min/1.73 sqM) Glucose 128 H (74-99) mg/dL Calcium 8.7 (8.4-10.2) mg/dL Total Bilirubin 0.2 (0.2-1.3) mg/dL AST 17 (14-36) U/L ALT 15 (4-34) U/L Alkaline Phosphatase 86 (38-126) U/L Total Protein 6.7 (6.3-8.2) g/dL Albumin 3.9 (3.5-5.0) g/dL Influenza Type A (PCR) (Not Detectd) Influenza Type B (PCR) (Not Detectd) RSV (PCR) (Not Detectd) SARS-CoV-2 (PCR) (Not Detectd) Group A Strep (PCR) NOT DETECTED (Not Detectd) 04/19/24 Range/Units 21:04 WBC (3.8-10.6) k/uL RBC (3.80-5.40) m/uL Hgb (11.4-16.0) gm/dL Hct (34.0-46.0) % MCV (80.0-100.0) fL MCH (25.0-35.0) pg MCHC (31.0-37.0) g/dL RDW (11.5-15.5) % Plt Count (150-450) k/uL MPV Neutrophils % % Lymphocytes % % Monocytes % % Eosinophils % % Basophils % % Neutrophils # (1.3-7.7) k/uL Lymphocytes # (1.0-4.8) k/uL Monocytes # (0-1.0) k/uL Eosinophils # (0-0.7) k/uL Basophils # (0-0.2) k/uL Anisocytosis Sodium (137-145) mmol/L Potassium (3.5-5.1) mmol/L Chloride (98-107) mmol/L Carbon Dioxide (22-30) mmol/L Anion Gap mmol/L BUN (7-17) mg/dL Creatinine (0.52-1.04) mg/dL Est GFR (CKD-EPI)AfAm (>60 ml/min/1.73 sqM) Est GFR (CKD-EPI)NonAf (>60 ml/min/1.73 sqM) Glucose (74-99) mg/dL Calcium (8.4-10.2) mg/dL Total Bilirubin (0.2-1.3) mg/dL AST (14-36) U/L ALT (4-34) U/L Alkaline Phosphatase (38-126) U/L Total Protein (6.3-8.2) g/dL Albumin (3.5-5.0) g/dL Influenza Type A (PCR) Detected A (Not Detectd) Influenza Type B (PCR) Not Detected (Not Detectd) RSV (PCR) Not Detected (Not Detectd) SARS-CoV-2 (PCR) Not Detected (Not Detectd) Group A Strep (PCR) (Not Detectd) - EKG Data -: EKG Interpreted by Me EKG Comments: 12-lead Electrocardiogram Interpretation Note EKG was reviewed and interpreted by myself. 12-lead ECG performed at 2209 is interpreted by me as revealing normal sinus rhythm at a rate of 88 beats per minute. [place] is normal. MO interval is 163 ms, QRS duration is 102 ms, QTc is 450 ms.. There were no ST or T wave abnormalities to suggest myocardial ischemia or injury. R wave progression across the precordium was satisfactory. By my interpretation this EKG is non-diagnostic for acute ischemia. Disposition Clinical Impression: Pneumonia, Asthma, Influenza A Disposition: HOME SELF-CARE Condition: Good Instructions (If sedation given, give patient instructions): Asthma (ED), Community Acquired Pneumonia (ED), Influenza (ED) Prescriptions: predniSONE [Deltasone] 40 mg PO DAILY 5 Days #10 tab Levofloxacin [Levaquin] 750 mg PO DAILY 7 Days #7 tab Albuterol Inhaler [Ventolin Hfa Inhaler] 2 puff INHALATION Q6H PRN #1 each PRN Reason: Dyspnea Is patient prescribed a controlled substance at d/c from ED?: No Referrals: None,Stated [Primary Care Provider] - 1-2 days Forms: Area PCPs Time of Disposition: 22:40
[2024-04-19] MEDS: HYDROmorphone 0.5 MG/0.5 ML SYRINGE IVP STA (22:47)
[2024-04-19 23:24] VITALS: BP 145/87; PULSE 87; TEMP 98.3
== END 2024-04-19 23:24 | disposition home or self-care (01) ==
LOC: EC 20:35
DX: J10.00 Influenza due to other identified influenza virus with unspecified type of pneumonia (principal); J45.909 Unspecified asthma, uncomplicated; E87.6 Hypokalemia; Z87.891 Personal history of nicotine dependence; Z88.1 Allergy status to other antibiotic agents; Z88.8 Allergy status to other drugs, medicaments and biological substances; Z88.6 Allergy status to analgesic agent; Z88.2 Allergy status to sulfonamides
CPT/HCPCS: 36415; 94640; 93005; 87651; 80053; 85025; 87636; 71046; 99285; 96374; 96375 ×3; 96361; J2270; J1200; J2765; J7512; J1171